=== PATIENT | male | born 1965 | race Hispanic/Latino ===

== ENCOUNTER 2018-12-18 21:04 | Inpatient (IN) | payer MEDICARE, OTHER ==
[~2018-12-18] VITALS: Ht 170.2 cm; Wt 110.3 kg
[2018-12-18] MEDS ORDERED: PANTOPRAZOLE 40 MG 10ML VIAL IV STA (21:16)
[2018-12-18 21:27] LABS: BASOPHILS # (AUTO) 0.1 (0.0-0.1); BASOPHILS % 0.4 % (0.0-1.0); EOSINOPHILS % 0.2 % (0.0-6.0); HEMOGLOBIN 14.7 g/dL (14.0-18.0); LYMPHOCYTES # (AUTO) 0.9 (1.0-3.2); LYMPHOCYTES % 7.3 % (18.0-39.1); MEAN CORPUSCULAR HEMOGLOBIN 28.9 pg (28-32); MEAN CORPUSCULAR HGB CONC 33.4 g/dL (31-35); MEAN CORPUSCULAR VOLUME 86.4 fL (81-99); MONOCYTES # (AUTO) 0.7 (0.2-0.8); MONOCYTES % 5.9 % (4.4-11.3); NEUTROPHILS # (AUTO) 10.8 (2.1-6.9); NEUTROPHILS % 85.9 % (38.7-80.0); PLATELET COUNT 272 x10e3/uL (140-360); RED BLOOD COUNT 5.09 x10e6/uL (4.3-5.7); RED CELL DISTRIBUTION WIDTH 13.5 % (11.7-14.4)
[2018-12-18] MEDS ORDERED: METOPROLOL TARTRATE INJ 1 MG/ML VIAL IV ONE (21:30)
[2018-12-18 21:35] LABS: INR 1.13; PROTHROMBIN TIME 15.1 seconds (11.9-14.5)
[2018-12-18 21:36] LABS: PARTIAL THROMBOPLASTIN TIME 31.2 seconds (23.8-35.5)
[2018-12-18 22:13] LABS: ALBUMIN 3.6 g/dL (3.5-5.0); ANION GAP 14.8 mmol/L (8-16); CALCIUM 8.5 mg/dL (8.4-10.2); CREATININE, SERUM 1.44 mg/dL (0.72-1.25); POTASSIUM 4.8 mmol/L (3.5-5.1)
[2018-12-18 22:19] LABS: CREATINE KINASE MB 1.5 ng/mL (0-5.0)
[2018-12-18 22:34] LABS: AMYLASE 18 U/L (25-125); LIPASE 17 U/L (8-78)
[2018-12-18] MEDS ORDERED: AMIODARONE HCL 150MG 100 ML IV ONE (22:45)
[2018-12-18 22:48] LABS: BILIRUBIN,URINE NEGATIVE (NEGATIVE); CLARITY,URINE SL CLOUDY (CLEAR); COLOR,URINE YELLOW (YELLOW); KETONES,URINE NEGATIVE (NEGATIVE); LEUKOCYTE ESTERASE ,URINE NEGATIVE (NEGATIVE); NITRITE,URINE NEGATIVE (NEGATIVE); PROTEIN,URINE DIPSTICK 2+ (NEGATIVE); URINE UROBILINOGEN 1 mg/dL (0.2 - 1)
[2018-12-18] MEDS ORDERED: AMIODARONE HCL 360MG 200 ML IV SCH (23:00)
[2018-12-18 23:03] LABS: BACTERIA,URINE MODERATE /HPF; EPITHELIAL CELLS,URINE FEW /LPF; MUCUS,URINE MANY (RARE); RBC,URINE 0-5 /HPF (0-5); WBC,URINE (MAN) 0-5 /HPF (0-5)
--- NOTE | 2018-12-18 23:10 | NUR ---
PATIENT BEING NON-COMPLIANT WITH NASAL CANNULA, MD AWARE, EXPLAINED TO PATIENT THE RISKS OF NOT WEARING A NASAL CANNULA.
[2018-12-18] MEDS ORDERED: DIATRIZOATE MEGL/DIATRIZOA SOD 30 ML BTL PO ONE (23:26)
[2018-12-18] MEDS ORDERED: AMIODARONE 900MG 500 ML IV ONE (23:30)
[2018-12-19] VITALS (8 sets, daily range): BP systolic 125–150; BP diastolic 67–99
--- NOTE | 2018-12-19 00:24 | Diagnostic Imaging Report ---
EXAM: CT Abdomen and Pelvis WITHOUT contrast INDICATION: ^abd pain ^[id number] ^2344 ^Y COMPARISON: None. TECHNIQUE: Abdomen and pelvis were scanned utilizing a multidetector helical scanner from the lung base to the pubic symphysis without administration of IV contrast. Absence of intravenous contrast decreases sensitivity for detection of focal lesions and vascular pathology. Coronal and sagittal reformations were obtained. Routine protocol was performed. IV CONTRAST: None ORAL CONTRAST: None COMPLICATIONS: None RADIATION DOSE: Total DLP: 826.88 mGy*cm Estimated effective dose: (DLP x 0.015 x size factor) mSv CTDIvol has been reviewed. It is below the limits set by the Radiation Protocol Committee (RPC). FINDINGS: LINES and TUBES: None. LOWER THORAX: Small right and trace left pleural effusions. Trace pericardial effusion. Partially seen distal lead of cardiac device, terminating in right ventricle. Lingular atelectasis/scarring. HEPATOBILIARY: Unenhanced liver is unremarkable. No biliary ductal dilation. GALLBLADDER: No radio-opaque stones or sludge. No wall thickening. SPLEEN: No splenomegaly. PANCREAS: No focal masses or ductal dilatation. ADRENALS: No adrenal nodules KIDNEYS/URETERS: No hydronephrosis. Limited for evaluation of renal parenchyma without intravenous contrast. Nonspecific bilateral perinephric fat stranding. No stones. GI TRACT: No abnormal distention, wall thickening, or evidence of bowel obstruction. There are diverticula within the colon without evidence of diverticulitis. Appendix is normal. PELVIC ORGANS/BLADDER: Unremarkable. LYMPH NODES: No lymphadenopathy. VESSELS: Unremarkable. PERITONEUM / RETROPERITONEUM: No free air or fluid. BONES: Unremarkable. SOFT TISSUES: Fat-containing bilateral inguinal and a small fat-containing umbilical hernias. IMPRESSION: 1. No definite evidence of acute inflammatory process in the abdomen/pelvis, considering limitations of unenhanced study. 2. Small right and trace left pleural effusions. 3. Mild colonic diverticulosis without evidence of diverticulitis. Signed by: Dr. Adilson Philippe MD on 12/19/2018 12:21 AM
[2018-12-19] MEDS ORDERED: DEXTROSE 50% SYRINGE 50 ML IV PRN (00:45)
[2018-12-19] MEDS ORDERED: ONDANSETRON HCL INJ 2MG/ML 2ML 2 MG/ML VIAL IV PRN (00:45)
--- NOTE | 2018-12-19 00:47 | Diagnostic Imaging Report ---
EXAMINATION: CHEST SINGLE (PORTABLE) INDICATION: ^chest pain ^[id number] ^2354 ^Y COMPARISON: None FINDINGS: AP view TUBES and LINES: Single lead left chest wall cardiac device in place with distal tip projecting over right ventricle. Retrocardiac hazy opacification. LUNGS: Lungs are well inflated. Mild central vascular congestion. PLEURA: No significant pleural effusion or pneumothorax. HEART AND MEDIASTINUM: The cardiomediastinal silhouette is enlarged. BONES AND SOFT TISSUES: No acute osseous lesion. Soft tissues are unremarkable. UPPER ABDOMEN: No free air under the diaphragm. IMPRESSION: Enlarged cardiomediastinal silhouette and mild vascular congestion. Retrocardiac hazy opacification, representing atelectasis and/or pneumonia in the appropriate clinical context. Signed by: Dr. Adilson Philippe MD on 12/19/2018 12:44 AM
[2018-12-19] MEDS: ASPIRIN 81 MG CHEW TAB PO ONE (01:02)
--- OUTSIDE RECORDS SUMMARY | 2018-12-19 01:05 | XMS REPORT | Clinical Summary ---
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 Reports, bloating/distention and gas Bumetanide Other (See 09/10/2018 Comments) k dur tablets make patient sick. Pt says tabs are "too big" so he has to break them and drink lots of water Potassium Nausea And Low 03/19/2013 Vomiting Sodium Chloride Medications End Date Status Medication Sig Dispensed Refills Start Date Active acetaminophen (TYLENOL) Take 650 mg 0 650 MG CR tablet by mouth every 4 (four) hours as needed for Pain. Active clonazePAM (KLONOPIN) 1 Take 1 mg by 0 MG tablet mouth nightly. Active metFORMIN (GLUCOPHAGE) Take 1 tablet 60 tablet 5 500 MG tablet (500 mg 8 total) by mouth 2 (two) times daily with breakfast and dinner. Active zolpidem (AMBIEN) 10 mg Take 10 mg by 0 tablet mouth every night as needed for Insomnia. 12/29/2018 Active pantoprazole (PROTONIX) Take 1 tablet 30 tablet 11 40 MG tablet (40 mg total) 8 by mouth daily. Active OXcarbazepine (OXTELLAR Take 600 mg 0 XR) 600 mg Tb24 by mouth nightly . Active traZODone (DESYREL) 50 MG Take 50 mg by 0 tablet mouth nightly. Active atorvastatin (LIPITOR) 40 Take 1 tablet 30 tablet 11 MG tablet (40 mg total) 9 by mouth every evening. Active rivaroxaban (XARELTO) 20 Take 1 tablet 30 tablet 11 mg Tab tablet (20 mg total) 9 by mouth daily with dinner. Active torsemide (DEMADEX) 20 MG Take 60 mg in 120 tablet 11 tablet am and 20 mg 9 in pm. 05/24/2019 Active albuterol HFA (PROAIR Inhale 1 puff 1 Inhaler 0 HFA) 90 mcg/actuation by mouth via 9 inhalerIndications: inhaler every Bronchitis, Cough, 6 (six) hours Wheezing, Chest as needed for congestion Wheezing. 07/30/2019 Active lisinopril Take 1 tablet 90 tablet 3 (PRINIVIL,ZESTRIL) 2.5 MG (2.5 mg 9 tablet total) by mouth daily. Active cariprazine (VRAYLAR) 1.5 Take 3 mg by 0 mg CapIndications: mouth daily. Obtained from patient's mother 09/16/2019 Active aspirin 81 MG EC tablet Take 1 tablet 30 tablet 11 (81 mg total) 9 by mouth daily. 09/26/2019 Active ketoconazole (NIZORAL) 2 Apply 30 g 11 % creamIndications: Tinea topically 9 pedis of both feet daily To feet for foot fungus for 2weeks then as needed. Active NUEDEXTA 20-10 mg Cap Take 1 2 capsule by 9 mouth 2 (two) times daily. Active ONETOUCH VERIO Strp Apply 1 strip 9 topically 4 9 (four) times daily. 11/10/2019 Active insulin lispro (HUMALOG) Inject 15 10 mL 0 100 unit/mL injection Units 9 subcutaneousl y 3 (three) times daily with meals. 11/10/2019 Active insulin detemir U-100 Inject 30 10 mL 0 (LEVEMIR U-100 INSULIN) Units 9 100 unit/mL injection subcutaneousl y 2 (two) times daily. 02/01/2019 Active ergocalciferol Take 1 tablet 0 (ERGOCALCIFEROL) 50,000 by mouth. 9 unit capsule 11/19/2019 Active carvedilol (COREG) 25 MG Take 1.5 90 tablet 5 tablet tablets (37.5 9 mg total) by mouth 2 (two) times daily with breakfast and dinner. 12/29/2017 Discontinued pantoprazole (PROTONIX) Take 40 mg by 0 40 MG tablet mouth daily. 4 04/18/2018 Discontinued digoxin (LANOXIN) 0.125 Take 1 tablet 90 tablet 3 MG tablet (125 mcg 8 total) by mouth daily. 04/16/2018 Discontinued glipiZIDE (GLUCOTROL) 10 Take 1 tablet 30 tablet 5 MG tablet (10 mg total) 8 by mouth 2 (two) times daily before meals. 09/13/2018 Discontinued asenapine (SAPHRIS) [address] 5 mg 0 Subl under the tongue nightly . 01/19/2018 Discontinued OXcarbazepine (TRILEPTAL) Take 600 mg 0 600 MG tablet by mouth nightly. 01/01/2018 Discontinued torsemide (DEMADEX) 20 MG Take 60 mg in 120 tablet 5 tablet am and 20 mg 8 in pm. 05/10/2018 Discontinued carvedilol (COREG) 12.5 Take 3 180 tablet 5 MG tablet tablets (37.5 8 mg total) by mouth 2 (two) times daily with breakfast and dinner. 05/10/2018 Discontinued aspirin 81 MG EC tablet Take 1 tablet 30 tablet 5 (81 mg total) 8 by mouth daily. 05/10/2018 Discontinued atorvastatin (LIPITOR) 40 Take 1 tablet 30 tablet 5 MG tablet (40 mg total) 8 by mouth every evening. 05/10/2018 Discontinued rivaroxaban (XARELTO) 20 Take 1 tablet 30 tablet 11 mg Tab tablet (20 mg total) 8 by mouth daily with dinner. 01/01/2018 Discontinued torsemide (DEMADEX) 20 MG Take 60 mg by 0 tablet mouth every morning. 01/01/2018 Discontinued torsemide (DEMADEX) 20 MG Take 20 mg by 0 tablet mouth every evening. 11/10/2018 Discontinued insulin lispro (HUMALOG) Inject 8 10 mL 0 100 unit/mL injection Units 8 subcutaneousl y 3 (three) times daily with meals. 11/10/2018 Discontinued insulin detemir U-100 Inject 20 10 mL 0 (LEVEMIR U-100 INSULIN) Units 8 100 unit/mL injection subcutaneousl y 2 (two) times daily. 04/06/2018 Discontinued torsemide (DEMADEX) 20 MG Take 60 mg in 120 tablet 5 tablet am and 20 mg 8 in pm. 05/10/2018 Discontinued torsemide (DEMADEX) 20 MG Take 60 mg in 120 tablet 5 tablet am and 20 mg 9 in pm. 05/24/2018 Discontinued senna (SENOKOT) 8.6 mg Take 1 tablet 60 tablet 0 tablet (8.6 mg 9 total) by mouth every night as needed for Constipation. 05/10/2018 Discontinued digoxin (LANOXIN) 0.125 Take 1 tablet 90 tablet 3 MG tablet (125 mcg 9 total) by mouth daily. 05/02/2018 Discontinued lidocaine (LIDODERM) 5 % Place 1 patch 10 patch 0 patchIndications: Acute onto the skin 9 left-sided thoracic back every 12 pain, Spasm of thoracic (twelve) back muscle hours Remove & Discard patch within 12 hours or as directed by MD. 05/02/2018 Discontinued metaxalone (SKELAXIN) 800 Take 1 tablet 30 tablet 0 MG tabletIndications: (800 mg 9 Acute left-sided thoracic total) by back pain, Spasm of mouth 3 thoracic back muscle (three) times daily as needed for Muscle spasms or Muscle pain for up to 10 days. 05/24/2018 Discontinued tiZANidine (ZANAFLEX) 4 Take 1 tablet 30 tablet 0 MG tabletIndications: (4 mg total) 9 Acute left-sided thoracic by mouth 3 back pain, Spasm of (three) times thoracic back muscle daily as needed (muscle spasms) for up to 28 days. 09/13/2018 Discontinued aspirin 81 MG EC tablet Take 1 tablet 30 tablet 11 (81 mg total) 9 by mouth daily. 10/01/2018 Discontinued carvedilol (COREG) 12.5 Take 3 180 tablet 11 MG tablet tablets (37.5 9 mg total) by mouth 2 (two) times daily with breakfast and dinner. 11/19/2018 Discontinued digoxin (LANOXIN) 0.125 Take 1 tablet 90 tablet 3 MG tablet (125 mcg 9 total) by mouth daily. 06/03/2018 benzonatate (TESSALON Take 1 30 capsule 0 PERLES) 100 MG capsule (100 9 capsuleIndications: Cough mg total) by mouth 3 (three) times daily as needed for Cough for up to 10 days. 07/06/2018 Discontinued methylPREDNISolone follow 1 Package 0 (MEDROL DOSEPACK) 4 mg package 9 tabletIndications: directions. Bronchitis, Cough, Wheezing, Chest congestion 06/03/2018 cefUROXime (CEFTIN) 500 Take 1 tablet 20 tablet 0 MG tabletIndications: (500 mg 9 Bronchitis, Upper total) by respiratory tract mouth 2 (two) infection, unspecified times daily type, Cough, Wheezing, for 10 days. Chest congestion 09/11/2018 Discontinued cariprazine 1.5 mg (1)- 3 Take 1.5 mg 0 mg (6) CpPk by mouth daily. 09/26/2018 Discontinued lactulose (CHRONULAC) 10 Take 30 mLs 240 mL 0 gram/15 mL solution (20 g total) 9 by mouth 3 (three) times daily for 10 days. 11/19/2018 Discontinued metoprolol (TOPROL-XL) Take 1 tablet 30 tablet 11 100 MG 24 hr tablet (100 mg 9 total) by mouth daily. Active Problems Patient Care Coordination Note Chong, care provider at [facility], 2D Echo, 05/14/18 Summary: 1. Moderately impaired LV systolic function, LVEF 30-34%. 2. Mild mitral regurgitations. 3. Left atrial enlargement with elevated left atrial pressure. 4. IVC: right atrial pressure is 6-10 mmHg. 2D Echo, 05/22/17 Summary: 1. Moderately impaired LV systolic function, LVEF 30-34% 2. Mild mitral regurgitation 3. Impaired LV relaxation suggestive of diastolic dysfunction. 4. Left atrial enlargement with elevated left atrial pressure. 5. LVIDd 5.6 cm. Drug Screen 08/24/2016 No Barbiturates, benzodiazepines, cannabinoids, cocaine, Opiates or muscle relaxers detected Positive for nicotine Pertinent Tests: 2DEcho, 12/11 The left ventricle is chamber size (by vol index) is mildly enlarged (male - LVED 75-89ml/m2). LVIDd 5.6 cm. No evidence of LV hypertrophy. All of the LV segments are severely hypokinetic . Global LV systolic function severely reduced . LVEF by quantitative assessment is severely reduced (<20%) . RV pacing wire is visualized . RV chamber size is normal . Global RV systolic function is depressed . [id number] mitral regurgitation. Mild tricuspid regurgitation. Estimated peak systolic PA pressure is 35-40 mmHg . A small pericardial effusion is present . The estimated RA pressure by IVC dynamics 11-15mmHg . In comparison with the prior exam 05/01/2013 the following changes are noted: PAP lower . 2DEcho, 09/28/16 ([facility]) Summary: 1. Moderately dilated left ventricle. Severe global hypokinesis of left ventricle. Estimated LVEF 20-25%. Restrictive filing pattern (grade II diastolic dysfunction). LV is moderately dilated. The anterior wall is akinetic. The remainder of the segment of the left ventricle is moderately dilated. The anterior wall is akinetic. The remainder of the segment of the left ventricle are moderate to severly hypokinetic. 2. The right ventricle is normal in size. Has mild global hypokinesis. 3. Aortic valve sclerosis. There is no aortic stenosis. 4. Mild MR 5. Mild TR 6. Estimated right ventricular systolic pressure is 40-45 mmHg. 7. No pulmonary insufficiency. 8. Severely enlarged left atrium. Mildly enlarged right atrium. 9. No pericardial effusion. Lexiscan Nuclear Stress Report, 09/28/16 Impression: 1. Large sized defect NC/scar. 2. Ischemic cardiomyopathy with LVEF 33% 2D Echo, 02/08/16 ([facility]) Summary: 1. Moderately impaired LV systolic function, LVEF 30-34%. LVIDd 5.5 cm 2. Mild mitral regurgitation 3. Impaired LV relaxation suggestive of diastolic dysfunction. 4. Left atrial enlargement with elevated left atrial pressure. 5. Compared to study on 06/29/15, no significant change. 2D Echo 06/29/15 ([facility]) Summary: 1. Moderately impaired LV systolic function, LVEF 30-34% 2. Mild mitral regurgitation 3. Impaired LV relaxation suggestive of diastolic dysfunction 4. Left atrial enlargement with elevated left atrial pressure. 5. LVIDd 5.5 cm 2 Decho ( [facility] ) 05/31/2014 LV size normal LVEF 55-60%, LVIDd 5.17 cm Abnormal LV diastolic function LA size normal RV size and systolic function normal Trivial pericardial effusion Cardiac catheterization ( [facility] ) 06/02/2014 Normal coronary arteries LVEF 30-35% LVedp 17 mmHg Nuclear stress test ( [facility] ) 05/31/2014 Abnormal . Small mild reversible ischemia in the inferior wall. Normal LV size. Global LV systolic function was mildly reduced, with EF 46%. CTA chest ( [facility] ) 05/30/2014 No evidence of pulmonary embolus ICD interrogation 06/29/15 ([facility]) Summary: Normal ICD function Battery status is not at replacement time Lead impedance within normal limits Device detected 15 NS-VT episodes on 10/19/14, coinciding with hospital admission HPI : with severely depressed LVEF of < 20% by echo in 04/2013 secondary to nonischemic cardiomyopathy, s/p single chamber AICD. He has had multiple hospitalizations for acute on chronic systolic heart failure in 2012-. [facility] in April [address] Sudhakar Steele for management of advanced heart failure. Past medical history: NICMP Chronic systolic HF HTN HLD TR, mild/mod by echo 04/2013 MR, mild/mod by echo 04/2013 Pulmonary HTN with SPAP 45-50 mmHg by echo 04/2013 MARY and suspected CKD Anxiety/depression Helicobateri positive gastritis DM type 2 (diabetes mellitus, type 2) Abnormal LFTs (liver function tests) AICD (automatic cardioverter/defibrillator) present Obesity LUZ (obstructive sleep apnea) Gout Schizo-affective schizophrenia No significant coronary artery disease by cardiac cath 11/23/10 Past Surgical History: AICD, single lead (Medtronic) implanted 12/09/2011 Social History: Single, former smoker, no alcohol or illicit drug use. Family History: Father had cancer Allergies/intolerances: KCL elixir causes nausea/vomiting Pertinent Tests: 2 Decho (05/01/13) LVEF , 20%, LVIDd 5.8 cm RV systolic function depressed Severe bi-atrial enlargement TR, mild/ moderate MR, mild/moderate Est SPAP 45-50 mmHg 2 Febho 10/12/12 LVEF 20-24%, LVIDd 4.98 cm Depressed RV systolic function, mild/moderate Severely enlarged LA Mild [place], TR Impaired LV relaxation SPAP 50- 55 mmHg 2 Febho 08/24/12 LVEF < 20%, LVIDd 6.2 cm RV systolic function depressed LA severely enlarged MR, mild/mod SPAP 40-45 mmHg Small pericardial effusion Cardiac Cath 11/23/10 Non-critical CAD LVEDp 34-[address] chest 03/24/13 No evidence PE Cardiomegaly and trace pericardial effusion Small right pleural effusion CT abd/pelvis 02/05/13 Moderate right pleural effusion 6 mm subpleural nodule in the right lower lobe Cardiomegaly Small pericardial effusion Colonic diverticulosis Moderate ascites Abd US 08/23/12 Liver homogenous in texture and free of mass Non specific diffuse gallbladder wall thickening Assessment/Plan: Chronic Systolic Heart failure Non ischemic CMP, LVEF < 20%, LVIDd 5.8 cm by echo 05/01/13 NYHA Class , Stage C Assessment: Hypertension Assessment: Hyperlipidemia Assessment: Possible chronic kidney disease Assessment: Diabetes Mellitus, type 2 Assessment: AICD, single chamber (medtronic) Assessment: LUZ Assessment: Obesity Assessment: Gout Assessment: Schizo-affective schizophrenia Assessment: H/o abnormal LFT's Assessment: hepatology evaluation 09/2012 negative for autoimmune disease and hepatitis Problem Noted Date CHF (congestive heart failure) 11/07/2018 Tinea pedis of both feet 09/26/2018 Ingrown toenail 09/26/2018 Callus of foot 09/26/2018 Screening for prostate cancer 09/26/2018 Urine frequency 09/26/2018 Urinary incontinence, unspecified type 09/26/2018 Hospital discharge follow-up 09/26/2018 Congestive heart failure 09/13/2018 Non compliance w medication regimen 04/06/2018 Diastolic CHF 02/26/2018 Trigger little finger of right hand 01/19/2018 Congestive heart failure, unspecified HF chronicity, unspecified heart 01/19/2018 failure type Type 2 diabetes mellitus with complication, with long-term current use of 01/19/2018 insulin Needs flu shot 01/19/2018 Atrial fibrillation, unspecified type 01/19/2018 Encounter to establish care with new doctor 01/19/2018 Hyperglycemia 12/05/2017 Hypercalcemia 12/04/2017 Chronic kidney disease, unspecified CKD stage 01/26/2017 Tobacco abuse 12/12/2016 Cocaine abuse 09/16/2016 Atrial fibrillation, chronic 09/16/2016 COPD (chronic obstructive pulmonary disease) 06/04/2016 Acute on chronic combined systolic and diastolic ACC/AHA stage C congestive 11/09/2015 heart failure Chronic anticoagulation 10/07/2015 Chronic kidney disease (CKD) stage G2/A2, mildly decreased glomerular 10/06/2015 filtration rate (GFR) between 60-89 mL/min/1.73 square meter and albuminuria creatinine ratio between 30-299 mg/g Hypertension 10/01/2013 Hyperlipidemia 10/01/2013 Gout 10/01/2013 Anxiety 03/26/2013 Gastritis 09/26/2012 Last Assessment & Plan: He has not had EGD, but tested positive for H.pylori, and was treated. He states that his symptoms have not improved. He should follow up with his PCP ([facility] His gastritis is a secondary consideration in the setting of severe cardiomyopathy. AICD (automatic cardioverter/defibrillator) present - medtronic 08/25/2012 Last Assessment & Plan: Implanted in 2006 - see NICM above. Obesity 08/25/2012 Last Assessment & Plan: He has significant truncal obesity and hyperlipidemia (on atorvastatin), but denies hypertension and diabetes. He is losing weight with diet and exercise - he is encouraged to continue with this regimen. LUZ (obstructive sleep apnea) 08/25/2012 Schizo-affective schizophrenia, chronic condition 08/25/2012 Last Assessment & Plan: Has flight of ideas - follows with Dr. Dietrich (on [place] and Stag). Lives independently - on disability. Pulmonary nodule 11/15/2010 Overview: Overview: Seen on CT chest - 2003 Major depressive disorder, single episode, severe with psychotic features 03/14/2001 Resolved Problems Problem Noted Date Resolved Date Bronchitis 05/24/2018 09/26/2018 Upper respiratory tract infection, unspecified type 05/24/2018 09/26/2018 Cough 05/24/2018 09/26/2018 Wheezing 05/24/2018 09/26/2018 Chest congestion 05/24/2018 09/26/2018 Acute left-sided thoracic back pain 04/27/2018 05/24/2018 Spasm of thoracic back muscle 04/27/2018 05/24/2018 Type 2 diabetes mellitus without complication 03/12/2013 09/26/2018 Encounters Care Team Description Date Type Specialty Jose Maria Gonzalez MD 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) 11/19/2018 Office Visit Transplant Shanna Scott MD 11/05/2018 Hospital Cardiology - Encounter 11/10/2018 Jose Maria Gonzalez MD Ahmed, Shamoon, MD Hyperlipidemia, unspecified hyperlipidemia type; 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); Type 2 diabetes mellitus without complication, 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) 11/05/2018 Office Visit Transplant 11/05/2018 Becca Gutierrez RN 10/30/2018 Orders Only Transplant Jose Maria Gonzalez MD Chronic combined systolic and diastolic CHF (congestive heart failure) ([facility]); AICD (automatic cardioverter/defibrillator) present 10/01/2018 Office Visit Transplant 10/01/2018 Orders Only General Internal Medicine Agapito Grace Jr., MD 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) (Primary Dx); Atrial fibrillation, chronic (HCC); Essential hypertension; Type 2 diabetes mellitus with complication, with long-term current use of insulin (HCC); Chronic kidney disease, unspecified CKD stage; AICD (automatic cardioverter/defibrillator) present - medtronic; Schizo-affective schizophrenia, chronic condition (HCC); Urine frequency; Urinary incontinence, unspecified type; Screening for prostate cancer; Callus of foot; Ingrown toenail; Tinea pedis of both feet; Hospital discharge follow-up 09/26/2018 Office Visit Internal Medicine Ivon Bermudez 09/26/2018 Documentation Transplant 09/13/2018 Travel Shanna Scott MD Siddiqui, Imran Alam, MD 09/10/2018 Hospital Cardiology - Encounter 09/15/2018 Jose Maria Gonzalez MD Ahmed, Shamoon, MD 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) 09/10/2018 Office Visit Transplant 09/10/2018 Travel Linda Diaz RN Follow-up 08/01/2018 Telephone Transplant Jose Maria Gonzalez MD 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); Type 2 diabetes mellitus without complication, unspecified whether assisted insulin use (HCC); AICD (automatic cardioverter/defibrillator) present 07/30/2018 Office Visit Transplant Sraah Beck Medication Management 07/18/2018 Telephone Transplant Rylie Jacinto RN 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) (Primary Dx); Type 2 diabetes mellitus without complication, 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); AICD (automatic cardioverter/defibrillator) present 07/18/2018 Orders Only Transplant Agapito Grace Jr., MD Bronchitis; Cough; Wheezing; Chest congestion 07/10/2018 Refill Internal Medicine Jose Maria Gonzalez MD 07/06/2018 Hospital Encounter Jose Maria Gonzalez MD 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); Hyperlipidemia, unspecified hyperlipidemia type; Atrial fibrillation, chronic (HCC) 06/18/2018 Office Visit Transplant Rylie Jacinto RN Hyperlipidemia, unspecified hyperlipidemia type (Primary Dx) 06/13/2018 Orders Only Transplant Jose Maria Gonzalez MD 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) 06/11/2018 Office Visit Transplant Jose Maria Gonzalez MD Chronic systolic heart failure (HCC) (Primary Dx) 06/01/2018 Outside Orders Central Scheduling Bermudez Keisha Follow-up 05/28/2018 Telephone Transplant Agapito Grace Jr., MD Bronchitis (Primary Dx); Upper respiratory tract infection, unspecified type; Cough; Wheezing; Chest congestion 05/24/2018 Office Visit Internal Medicine Agapito Grace Jr., MD Medication Problem 05/24/2018 Telephone Internal Medicine Jose Maria Gonzalez MD 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); AICD (automatic cardioverter/defibrillator) present - [employer] 05/14/2018 Office Visit Transplant Agapito Grace Jr., MD Acute left-sided thoracic back pain; Spasm of thoracic back muscle 05/11/2018 Refill Internal Medicine Linda Diaz RN 05/10/2018 Orders Only Transplant Agapito Grace Jr., MD Acute left-sided thoracic back pain; Spasm of thoracic back muscle 05/02/2018 Refill Internal Medicine Agapito Grace Jr., MD Medication Refill 04/30/2018 Telephone Internal Medicine Linda Diaz, BRENDON Follow-up 04/30/2018 Telephone Transplant Agapito Grace Jr., MD Acute left-sided thoracic back pain (Primary Dx); Spasm of thoracic back muscle 04/27/2018 Office Visit Internal Medicine Linda Diaz, BRENDON 04/18/2018 Orders Only Transplant Jose Maria Gonzalez MD 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); Atrial fibrillation, chronic (HCC) 04/16/2018 Office Visit Transplant 04/03/2018 Travel Jose Maria Gonzalez MD Ahmed, Shamoon, MD AICD (automatic cardioverter/defibrillator) present 04/02/2018 Hospital Cardiology - Encounter 04/06/2018 Jose Maria Gonzalez MD Ahmed, Shamoon, MD 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); Atrial fibrillation, chronic (HCC); AICD (automatic cardioverter/defibrillator) present - medtronic 04/02/2018 Office Visit Transplant 04/02/2018 Orders Only General Internal Medicine Pcp, No 03/16/2018 Telephone Cardiology Shanna Scott MD AICD (automatic cardioverter/defibrillator) present 02/26/2018 Hospital Cardiology - Encounter 03/02/2018 Jose Maria Gonzalez MD Ahmed, Shamoon, MD AICD (automatic cardioverter/defibrillator) present (Primary Dx); 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); AICD (automatic cardioverter/defibrillator) present - medtronic 02/26/2018 Office Visit Transplant 02/26/2018 Travel 02/26/2018 Orders Only General Internal Medicine Jose Maria Gonzalez MD 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); Hyperlipidemia, unspecified hyperlipidemia type; AICD (automatic cardioverter/defibrillator) present - medtronic 01/29/2018 Office Visit Transplant Ivon Bermudez 01/26/2018 Documentation Transplant Agapito Grace Jr., MD Trigger little finger of right hand (Primary Dx); Numbness of finger; AICD (automatic cardioverter/defibrillator) present - medtronic; Congestive heart failure, unspecified HF chronicity, unspecified heart failure type (HCC); Atrial fibrillation, unspecified type (HCC); Chronic kidney disease, unspecified CKD stage; Type 2 diabetes mellitus with complication, with long-term current use of insulin (HCC); Needs flu shot; Encounter to establish care with new doctor 01/19/2018 Office Visit Internal Medicine Linda Diaz, BRENDON 01/01/2018 Orders Only Transplant Linda Diaz RN 12/29/2017 Orders Only Transplant Ivon Bermudez 12/29/2017 Telephone Transplant Ivon Bermudez 12/28/2017 Telephone Central Scheduling after 12/18/2017 Immunizations Name Dates Previously Given Next Due Influenza Antibiotic Free 01/19/2018 Non PF IM Influenza TIV (IM) 05/12/2014, 01/06/2014 Influenza Three-TIV PF 5+ 12/26/2016, 12/26/2016 (Deferred: - previously YR given se documentation), 01/19/2016 Influenza Three-TIV PF 5+ 02/02/2015 YRS Pneumococcal 06/09/2017 Polysaccharide (Pneumovax) Family History Medical History Relation Name Comments Cancer Father Hypertension Father Hypertension Mother Relation Name Status Comments Father Mother Alive Social History Date Tobacco Use Types Packs/Day Years Used Quit: 12/08/2016 Former Smoker 1 10 Smokeless Tobacco: Former Quit: 12/08/2016 User Tobacco Cessation: Counseling Given: Yes Comments: i am not ready to quit Alcohol Use Drinks/Week oz/Week Comments No Alcohol Habits Answer Date Recorded How often do you have a drink containing alcohol? Never 04/27/2018 How many drinks containing alcohol do you have on Not asked a typical day when you are drinking? How often do you have six or more drinks on one Not asked occasion? Sex Assigned at Date Recorded Not on file Industry Job Start Date Occupation Not on file Not on file Not on file Travel End Travel History Travel Start No recent travel history available. Last Filed Vital Signs Time Taken Vital Sign Reading 11/19/2018 10:31 AM CDT Blood Pressure 114/70 11/19/2018 10:31 AM CDT Pulse 58 11/19/2018 10:31 AM CDT Temperature 36.4 C (97.5 F) 11/19/2018 10:31 AM CDT Respiratory Rate 18 11/19/2018 10:31 AM CDT Oxygen Saturation 99% - Inhaled Oxygen - Concentration 11/19/2018 10:31 AM CDT Weight 106.9 kg (235 lb 9.6 oz) 11/19/2018 10:31 AM CDT Height 172.7 cm (5' 8") 11/19/2018 10:31 AM CDT Body Mass Index 35.82 Plan of Treatment Care Team Description Date Type Specialty Jose Maria Gonzalez MD [address] [address] [phone] 02/11/2019 Office Visit Transplant Health Maintenance Due Date Last Done Comments HEMOGLOBIN A1C 02/05/2019 11/05/2018, 11/05/2018, 07/30/2018, Additional history exists Procedures Comments Procedure Name Priority Date/Time Associated Diagnosis CBC W/PLT COUNT & AUTO STAT 11/19/2018 Chronic combined systolic DIFFERENTIAL 10:33 AM 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) (HCC) B-TYPE NATRIURETIC FACTOR STAT 11/19/2018 Chronic combined systolic (BNP) 10:33 AM 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) ([facility]) BASIC METABOLIC PANEL (7) STAT 11/19/2018 Chronic combined systolic 10:33 AM 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) ([facility]) CBC W/PLT COUNT & AUTO STAT 11/19/2018 Chronic combined systolic DIFFERENTIAL 10:33 AM 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) ([facility]) ECG 12-LEAD Routine 11/19/2018 7:38 AM CDT Procedure Note - Interface, External Ris In - 11/19/2018 3:44 PM CDT Ventricula r Rate 78 BPM Atrial Rate 79 BPM QRS Duration 100 ms Q-T Interval 360 ms QTC Calculatio n(Bazett) 410 ms R Loyal 1 degrees T Loyal 162 degrees Atrial fibrillati on Low voltage QRS ST & T wave abnormalit y, consider lateral ischemia or digitalis effect Abnormal ECG When compared with ECG of 9 07:34, No significan t change was found ECG 12-LEAD Routine 11/19/2018 Chronic combined systolic 7:38 AM 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) ([facility]) RHYTHM STRIP - SCAN 11/12/2018 2:11 PM CDT POCT-GLUCOSE METER Routine 11/10/2018 9:24 AM CDT CBC W/PLT COUNT & AUTO Routine 11/10/2018 DIFFERENTIAL 3:43 AM CDT CBC W/PLT COUNT & AUTO Routine 11/10/2018 DIFFERENTIAL 3:43 AM CDT BASIC METABOLIC PANEL (7) Routine 11/10/2018 3:43 AM CDT POCT-GLUCOSE METER Routine 11/09/2018 9:31 PM CDT POCT-GLUCOSE METER Routine 11/09/2018 6:36 PM CDT POCT-GLUCOSE METER Routine 11/09/2018 2:32 PM CDT POCT-GLUCOSE METER Routine 11/09/2018 10:04 AM CDT CBC W/PLT COUNT & AUTO Routine 11/09/2018 DIFFERENTIAL 4:20 AM CDT CBC W/PLT COUNT & AUTO Routine 11/09/2018 DIFFERENTIAL 4:20 AM CDT BASIC METABOLIC PANEL (7) Routine 11/09/2018 4:20 AM CDT POCT-GLUCOSE METER Routine 11/08/2018 11:00 PM CDT POCT-GLUCOSE METER Routine 11/08/2018 5:30 PM CDT POCT-GLUCOSE METER Routine 11/08/2018 1:45 PM CDT POCT-GLUCOSE METER Routine 11/08/2018 10:40 AM CDT POCT-GLUCOSE METER Routine 11/07/2018 6:01 PM CDT CBC W/PLT COUNT & AUTO Routine 11/07/2018 DIFFERENTIAL 6:27 AM CDT CBC W/PLT COUNT & AUTO Routine 11/07/2018 DIFFERENTIAL 6:27 AM CDT BASIC METABOLIC PANEL (7) Routine 11/07/2018 6:27 AM CDT DIGOXIN LEVEL Routine 11/06/2018 10:08 AM CDT CBC W/PLT COUNT & AUTO Routine 11/06/2018 DIFFERENTIAL 5:33 AM CDT CBC W/PLT COUNT & AUTO Routine 11/06/2018 DIFFERENTIAL 5:33 AM CDT BASIC METABOLIC PANEL (7) Routine 11/06/2018 5:33 AM CDT POCT-GLUCOSE METER Routine 11/05/2018 10:13 PM CDT POCT-GLUCOSE METER Routine 11/05/2018 6:47 PM CDT BLOOD CULTURE Routine 11/05/2018 5:38 PM CDT HEMOGLOBIN A1C Routine 11/05/2018 5:18 PM CDT BLOOD CULTURE Routine 11/05/2018 5:18 PM CDT URINALYSIS W/ REFLEX Routine 11/05/2018 URINE CULTURE 4:57 PM CDT CBC W/PLT COUNT & AUTO STAT 11/05/2018 Chronic combined systolic DIFFERENTIAL 10:29 AM 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) (HCC) HEMOGLOBIN A1C STAT 11/05/2018 Type 2 diabetes mellitus 10:29 AM CDT without complication, 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) B-TYPE NATRIURETIC FACTOR STAT 11/05/2018 Chronic combined systolic (BNP) 10:29 AM 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) (HCC) BASIC METABOLIC PANEL (7) STAT 11/05/2018 Chronic combined systolic 10:29 AM 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) (HCC) CBC W/PLT COUNT & AUTO STAT 11/05/2018 Chronic combined systolic DIFFERENTIAL 10:29 AM 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) (HCC) LIPID PANEL STAT 11/05/2018 Hyperlipidemia, 10:29 AM CDT unspecified hyperlipidemia type HEPATIC FUNCTION PANEL STAT 11/05/2018 Hyperlipidemia, 10:29 AM CDT unspecified hyperlipidemia type (CELLAVISION MANUAL DIFF) STAT 10/01/2018 Chronic combined systolic 10:21 AM 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) (HCC) CBC W/PLT COUNT & AUTO STAT 10/01/2018 Chronic combined systolic DIFFERENTIAL 10:21 AM 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) (HCC) B-TYPE NATRIURETIC FACTOR STAT 10/01/2018 Chronic combined systolic (BNP) 10:21 AM 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) (HCC) BASIC METABOLIC PANEL (7) STAT 10/01/2018 Chronic combined systolic 10:21 AM 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) (HCC) CBC W/PLT COUNT & AUTO STAT 10/01/2018 Chronic combined systolic DIFFERENTIAL 10:21 AM 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) (HCC) ECG 12-LEAD Routine 10/01/2018 7:34 AM CDT RHYTHM STRIP - SCAN 09/17/2018 11:10 AM CDT POCT-GLUCOSE METER Routine 09/14/2018 9:30 PM CDT POCT-GLUCOSE METER Routine 09/14/2018 6:26 PM CDT POCT-GLUCOSE METER Routine 09/14/2018 1:24 PM CDT POCT-GLUCOSE METER Routine 09/14/2018 8:34 AM CDT POCT-GLUCOSE METER Routine 09/13/2018 10:10 PM CDT POCT-GLUCOSE METER Routine 09/13/2018 10:03 AM CDT POCT-GLUCOSE METER Routine 09/12/2018 11:12 PM CDT POCT-GLUCOSE METER Routine 09/12/2018 10:14 PM CDT POCT-GLUCOSE METER Routine 09/12/2018 2:30 PM CDT CBC W/PLT COUNT & AUTO STAT 09/12/2018 DIFFERENTIAL 11:33 AM CDT BASIC METABOLIC PANEL (7) STAT 09/12/2018 11:33 AM CDT CBC W/PLT COUNT & AUTO STAT 09/12/2018 DIFFERENTIAL 11:33 AM CDT POCT-GLUCOSE METER Routine 09/12/2018 9:42 AM CDT POCT-GLUCOSE METER Routine 09/11/2018 9:40 PM CDT XR CHEST 2 VIEWS Routine 09/11/2018 8:57 PM CDT POCT-GLUCOSE METER Routine 09/11/2018 6:12 PM CDT POCT-GLUCOSE METER Routine 09/11/2018 8:38 AM CDT CBC W/PLT COUNT & AUTO Routine 09/11/2018 DIFFERENTIAL 5:11 AM CDT CREATINE KINASE (CK) Routine 09/11/2018 5:11 AM CDT TROPONIN I Routine 09/11/2018 5:11 AM CDT BASIC METABOLIC PANEL (7) Routine 09/11/2018 5:11 AM CDT CBC W/PLT COUNT & AUTO Routine 09/11/2018 DIFFERENTIAL 5:11 AM CDT POCT-GLUCOSE METER Routine 09/10/2018 11:26 PM CDT CBC W/PLT COUNT & AUTO STAT 09/10/2018 DIFFERENTIAL 10:46 PM CDT CREATINE KINASE (CK) Routine 09/10/2018 10:46 PM CDT TROPONIN I Routine 09/10/2018 10:46 PM CDT URINALYSIS W/ MICROSCOPIC Routine 09/10/2018 10:46 PM CDT TSH/FREE T4 IF INDICATED Routine 09/10/2018 10:46 PM CDT BASIC METABOLIC PANEL (7) SOPHIA 09/10/2018 10:46 PM CDT CBC W/PLT COUNT & AUTO STAT 09/10/2018 DIFFERENTIAL 10:46 PM CDT CBC W/PLT COUNT & AUTO STAT 09/10/2018 Chronic combined systolic DIFFERENTIAL 10:53 AM 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) (HCC) B-TYPE NATRIURETIC FACTOR STAT 09/10/2018 Chronic combined systolic (BNP) 10:53 AM 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) (HCC) BASIC METABOLIC PANEL (7) STAT 09/10/2018 Chronic combined systolic 10:53 AM 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) (HCC) CBC W/PLT COUNT & AUTO STAT 09/10/2018 Chronic combined systolic DIFFERENTIAL 10:53 AM 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) (HCC) CBC W/PLT COUNT & AUTO STAT 07/30/2018 Chronic combined systolic DIFFERENTIAL 10:43 AM 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) (HCC) HEMOGLOBIN A1C STAT 07/30/2018 Type 2 diabetes mellitus 10:43 AM CDT without complication, 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 ([facility]) B-TYPE NATRIURETIC FACTOR STAT 07/30/2018 Chronic combined systolic (BNP) 10:43 AM 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) (HCC) BASIC METABOLIC PANEL (7) STAT 07/30/2018 Chronic combined systolic 10:43 AM 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) (HCC) CBC W/PLT COUNT & AUTO STAT 07/30/2018 Chronic combined systolic DIFFERENTIAL 10:43 AM 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) (HCC) ECG 12-LEAD Routine 07/30/2018 7:48 AM CDT Procedure Note - Interface, External Ris In - 07/30/2018 3:14 PM CDT Ventricula r Rate 61 BPM Atrial Rate 131 BPM QRS Duration 212 ms Q-T Interval 428 ms QTC Calculatio n(Bazett) 430 ms R Loyal 50 degrees T Loyal 144 degrees Poor data quality, interpreta tion may be adversely affected Atrial fibrillati on Right bundle branch block T wave abnormalit y, consider lateral ischemia or digitalis effect Abnormal ECG When compared with ECG of 9 12:14, Right bundle branch block is now Present RHYTHM STRIP - SCAN 07/19/2018 1:51 PM CDT RHYTHM STRIP - SCAN 07/06/2018 12:03 PM CDT RHYTHM STRIP - SCAN 06/28/2018 3:02 PM CDT CBC W/PLT COUNT & AUTO STAT 06/18/2018 Chronic combined systolic DIFFERENTIAL 11:33 AM 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) (HCC) LIPID PANEL STAT 06/18/2018 Hyperlipidemia, 11:33 AM CDT unspecified hyperlipidemia type HEPATIC FUNCTION PANEL STAT 06/18/2018 Hyperlipidemia, 11:33 AM CDT unspecified hyperlipidemia type B-TYPE NATRIURETIC FACTOR STAT 06/18/2018 Chronic combined systolic (BNP) 11:33 AM 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) (HCC) BASIC METABOLIC PANEL (7) STAT 06/18/2018 Chronic combined systolic 11:33 AM 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) (HCC) CBC W/PLT COUNT & AUTO STAT 06/18/2018 Chronic combined systolic DIFFERENTIAL 11:33 AM 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) (HCC) ECG 12-LEAD Routine 06/18/2018 8:20 AM CDT Procedure Note - Interface, External Ris In - 06/18/2018 4:02 PM CDT Ventricula r Rate 0 BPM Atrial Rate 0 BPM QRS Duration 0 ms Q-T Interval 0 ms QTC Calculatio n(Bazett) 0 ms R Loyal 0 degrees T Loyal 0 degrees No QRS complexes found, no ECG analysis possible When compared with ECG of 9 12:14, Current undetermin ed rhythm precludes rhythm comparison , needs review ARRYTHMIA IMPLANT REPORT 06/13/2018 - SCAN 12:13 PM CDT CBC W/PLT COUNT & AUTO STAT 06/11/2018 Chronic combined systolic DIFFERENTIAL 11:36 AM 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) (HCC) B-TYPE NATRIURETIC FACTOR STAT 06/11/2018 Chronic combined systolic (BNP) 11:36 AM 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) (HCC) BASIC METABOLIC PANEL (7) STAT 06/11/2018 Chronic combined systolic 11:36 AM 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) (HCC) CBC W/PLT COUNT & AUTO STAT 06/11/2018 Chronic combined systolic DIFFERENTIAL 11:36 AM 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) (HCC) CBC W/PLT COUNT & AUTO STAT 05/14/2018 Chronic combined systolic DIFFERENTIAL 10:31 AM 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 AUTOGRAPHER and 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 CHF (congestive heart failure) (HCC) B-TYPE NATRIURETIC FACTOR STAT 05/14/2018 Chronic combined systolic (BNP) 10:31 AM MUSIC AUTOGRAPHER and diastolic CHF (congestive heart failure) (HCC) BASIC METABOLIC PANEL (7) STAT 05/14/2018 Chronic combined systolic 10:31 AM MUSIC AUTOGRAPHER and diastolic CHF (congestive heart failure) (HCC) CBC W/PLT COUNT & AUTO STAT 05/14/2018 Chronic combined systolic DIFFERENTIAL 10:31 AM MUSIC AUTOGRAPHER and diastolic CHF (congestive heart failure) (HCC) ARRYTHMIA IMPLANT REPORT 04/26/2018 - SCAN 2:30 PM MUSIC AUTOGRAPHER ARRYTHMIA IMPLANT REPORT 04/26/2018 - SCAN 7:40 AM MUSIC AUTOGRAPHER RHYTHM STRIP - SCAN 04/26/2018 7:40 AM MUSIC AUTOGRAPHER ARRYTHMIA IMPLANT REPORT 04/17/2018 - SCAN 1:41 PM MUSIC AUTOGRAPHER ECG 12-LEAD Routine 04/16/2018 12:14 PM MUSIC AUTOGRAPHER Procedure Note - Interface, External Ris In - 04/16/2018 3:13 PM MUSIC AUTOGRAPHER Ventricula r Rate 66 BPM Atrial Rate 267 BPM QRS Duration 94 ms Q-T Interval 368 ms QTC Calculatio n(Bazett) 385 ms R Loyal 32 degrees T Loyal 127 degrees Atrial fibrillati on Low voltage QRS ST & T wave abnormalit y, consider lateral ischemia or digitalis effect Abnormal ECG When compared with ECG of 9 16:03, Previous ECG has undetermin ed rhythm, needs review ECG 12-LEAD Routine 04/16/2018 Chronic combined systolic 12:14 PM MUSIC AUTOGRAPHER and diastolic CHF (congestive heart failure) (HCC) Atrial fibrillation, chronic (HCC) CBC W/PLT COUNT & AUTO STAT 04/16/2018 Chronic combined systolic DIFFERENTIAL 10:42 AM MUSIC AUTOGRAPHER and diastolic CHF (congestive heart failure) (HCC) B-TYPE NATRIURETIC FACTOR STAT 04/16/2018 Chronic combined systolic (BNP) 10:42 AM MUSIC AUTOGRAPHER and diastolic CHF (congestive heart failure) (HCC) BASIC METABOLIC PANEL (7) STAT 04/16/2018 Chronic combined systolic 10:42 AM MUSIC AUTOGRAPHER and diastolic CHF (congestive heart failure) (HCC) CBC W/PLT COUNT & AUTO STAT 04/16/2018 Chronic combined systolic DIFFERENTIAL 10:42 AM MUSIC AUTOGRAPHER and diastolic CHF (congestive heart failure) (HCC) POCT-GLUCOSE METER Routine 04/06/2018 10:05 AM MUSIC AUTOGRAPHER BASIC METABOLIC PANEL (7) Routine 04/06/2018 5:16 AM MUSIC AUTOGRAPHER POCT-GLUCOSE METER Routine 04/05/2018 10:55 PM MUSIC AUTOGRAPHER POCT-GLUCOSE METER Routine 04/05/2018 8:01 PM MUSIC AUTOGRAPHER POCT-GLUCOSE METER Routine 04/05/2018 6:24 PM MUSIC AUTOGRAPHER POCT-GLUCOSE METER Routine 04/05/2018 1:27 PM MUSIC AUTOGRAPHER POCT-GLUCOSE METER Routine 04/05/2018 9:56 AM MUSIC AUTOGRAPHER POCT-GLUCOSE METER Routine 04/05/2018 7:30 AM MUSIC AUTOGRAPHER CBC W/PLT COUNT & AUTO Routine 04/05/2018 DIFFERENTIAL 4:52 AM MUSIC AUTOGRAPHER BASIC METABOLIC PANEL (7) Routine 04/05/2018 4:52 AM MUSIC AUTOGRAPHER CBC W/PLT COUNT & AUTO Routine 04/05/2018 DIFFERENTIAL 4:52 AM MUSIC AUTOGRAPHER POCT-GLUCOSE METER Routine 04/04/2018 10:43 PM MUSIC AUTOGRAPHER POCT-GLUCOSE METER Routine 04/04/2018 5:34 PM MUSIC AUTOGRAPHER POCT-GLUCOSE METER Routine 04/04/2018 11:57 AM MUSIC AUTOGRAPHER POCT-GLUCOSE METER Routine 04/04/2018 7:39 AM MUSIC AUTOGRAPHER CBC W/PLT COUNT & AUTO Routine 04/04/2018 DIFFERENTIAL 5:00 AM MUSIC AUTOGRAPHER BASIC METABOLIC PANEL (7) Routine 04/04/2018 5:00 AM MUSIC AUTOGRAPHER CBC W/PLT COUNT & AUTO Routine 04/04/2018 DIFFERENTIAL 5:00 AM MUSIC AUTOGRAPHER POCT-GLUCOSE METER Routine 04/03/2018 9:32 PM MUSIC AUTOGRAPHER POCT-GLUCOSE METER Routine 04/03/2018 8:54 PM MUSIC AUTOGRAPHER POCT-GLUCOSE METER Routine 04/03/2018 6:01 PM MUSIC AUTOGRAPHER POCT-GLUCOSE METER Routine 04/03/2018 1:27 PM MUSIC AUTOGRAPHER POCT-GLUCOSE METER Routine 04/03/2018 9:04 AM MUSIC AUTOGRAPHER CBC W/PLT COUNT & AUTO Routine 04/03/2018 DIFFERENTIAL 4:08 AM MUSIC AUTOGRAPHER BASIC METABOLIC PANEL (7) Routine 04/03/2018 4:08 AM MUSIC AUTOGRAPHER CBC W/PLT COUNT & AUTO Routine 04/03/2018 DIFFERENTIAL 4:08 AM MUSIC AUTOGRAPHER POCT-GLUCOSE METER Routine 04/02/2018 11:02 PM MUSIC AUTOGRAPHER XR CHEST 1 VIEW Routine 04/02/2018 PORTABLE/BEDSIDE 7:46 PM MUSIC AUTOGRAPHER HEMOGLOBIN A1C AP Routine 04/02/2018 4:04 PM MUSIC AUTOGRAPHER B-TYPE NATRIURETIC FACTOR Routine 04/02/2018 (BNP) 4:04 PM MUSIC AUTOGRAPHER ECG 12-LEAD STAT 04/02/2018 4:03 PM MUSIC AUTOGRAPHER CBC W/PLT COUNT & AUTO Routine 04/02/2018 DIFFERENTIAL 3:31 PM MUSIC AUTOGRAPHER CBC W/PLT COUNT & AUTO Routine 04/02/2018 DIFFERENTIAL 3:31 PM MUSIC AUTOGRAPHER COMPREHENSIVE METABOLIC Routine 04/02/2018 PANEL 3:31 PM MUSIC AUTOGRAPHER POCT-GLUCOSE METER Routine 04/02/2018 3:16 PM MUSIC AUTOGRAPHER ECG 12-LEAD Routine 04/02/2018 12:42 PM MUSIC AUTOGRAPHER Procedure Note - Interface, External Ris In - 04/02/2018 2:52 PM MUSIC AUTOGRAPHER Ventricula r Rate 64 BPM Atrial Rate 153 BPM QRS Duration 98 ms Q-T Interval 416 ms QTC Calculatio n(Bazett) 429 ms R Loyal 0 degrees T Loyal 148 degrees Atrial fibrillati on Low voltage QRS Cannot rule out Anterior infarct , age undetermin ed ST & T wave abnormalit y, consider lateral ischemia or digitalis effect Abnormal ECG When compared with ECG of 8 11:28, QT has lengthened ECG 12-LEAD Routine 04/02/2018 Chronic combined systolic 12:42 PM MUSIC AUTOGRAPHER and diastolic CHF (congestive heart failure) (HCC) Atrial fibrillation, chronic (HCC) CBC W/PLT COUNT & AUTO STAT 04/02/2018 Chronic combined systolic DIFFERENTIAL 11:08 AM MUSIC AUTOGRAPHER and diastolic CHF (congestive heart failure) (HCC) B-TYPE NATRIURETIC FACTOR STAT 04/02/2018 Chronic combined systolic (BNP) 11:08 AM MUSIC AUTOGRAPHER and diastolic CHF (congestive heart failure) (HCC) BASIC METABOLIC PANEL (7) STAT 04/02/2018 Chronic combined systolic 11:08 AM MUSIC AUTOGRAPHER and diastolic CHF (congestive heart failure) (HCC) CBC W/PLT COUNT & AUTO STAT 04/02/2018 Chronic combined systolic DIFFERENTIAL 11:08 AM MUSIC AUTOGRAPHER and diastolic CHF (congestive heart failure) (HCC) ARRYTHMIA IMPLANT REPORT 03/09/2018 - SCAN 9:51 AM MUSIC AUTOGRAPHER RHYTHM STRIP - SCAN 03/09/2018 9:51 AM MUSIC AUTOGRAPHER POCT-GLUCOSE METER Routine 03/02/2018 5:50 PM MUSIC AUTOGRAPHER POCT-GLUCOSE METER Routine 03/02/2018 10:15 AM MUSIC AUTOGRAPHER (CELLAVISION MANUAL DIFF) Routine 03/02/2018 5:20 AM MUSIC AUTOGRAPHER CBC W/PLT COUNT & AUTO Routine 03/02/2018 DIFFERENTIAL 5:20 AM MUSIC AUTOGRAPHER BASIC METABOLIC PANEL (7) Routine 03/02/2018 5:20 AM MUSIC AUTOGRAPHER CBC W/PLT COUNT & AUTO Routine 03/02/2018 DIFFERENTIAL 5:20 AM MUSIC AUTOGRAPHER POCT-GLUCOSE METER Routine 03/01/2018 8:56 PM MUSIC AUTOGRAPHER POCT-GLUCOSE METER Routine 03/01/2018 5:17 PM MUSIC AUTOGRAPHER POCT-GLUCOSE METER Routine 03/01/2018 9:50 AM MUSIC AUTOGRAPHER CBC W/PLT COUNT & AUTO Routine 03/01/2018 DIFFERENTIAL 5:19 AM MUSIC AUTOGRAPHER BASIC METABOLIC PANEL (7) Routine 03/01/2018 5:19 AM MUSIC AUTOGRAPHER CBC W/PLT COUNT & AUTO Routine 03/01/2018 DIFFERENTIAL 5:19 AM MUSIC AUTOGRAPHER POCT-GLUCOSE METER Routine 02/28/2018 10:08 PM MUSIC AUTOGRAPHER POCT-GLUCOSE METER Routine 02/28/2018 6:00 PM MUSIC AUTOGRAPHER POCT-GLUCOSE METER Routine 02/28/2018 1:54 PM MUSIC AUTOGRAPHER POCT-GLUCOSE METER Routine 02/28/2018 8:24 AM MUSIC AUTOGRAPHER CBC W/PLT COUNT & AUTO Routine 02/28/2018 DIFFERENTIAL 3:45 AM MUSIC AUTOGRAPHER BASIC METABOLIC PANEL (7) Routine 02/28/2018 3:45 AM MUSIC AUTOGRAPHER CBC W/PLT COUNT & AUTO Routine 02/28/2018 DIFFERENTIAL 3:45 AM MUSIC AUTOGRAPHER POCT-GLUCOSE METER Routine 02/27/2018 9:21 PM MUSIC AUTOGRAPHER POCT-GLUCOSE METER Routine 02/27/2018 7:02 PM MUSIC AUTOGRAPHER POCT-GLUCOSE METER Routine 02/27/2018 3:41 PM MUSIC AUTOGRAPHER POCT-GLUCOSE METER Routine 02/27/2018 9:13 AM MUSIC AUTOGRAPHER TROPONIN I Routine 02/27/2018 5:39 AM MUSIC AUTOGRAPHER TROPONIN I Routine 02/26/2018 10:08 PM MUSIC AUTOGRAPHER COMPREHENSIVE METABOLIC Routine 02/26/2018 PANEL 10:08 PM MUSIC AUTOGRAPHER POCT-GLUCOSE METER Routine 02/26/2018 9:28 PM MUSIC AUTOGRAPHER RAPID DRUG SCREEN, URINE Routine 02/26/2018 7:31 PM MUSIC AUTOGRAPHER POCT-GLUCOSE METER Routine 02/26/2018 6:31 PM MUSIC AUTOGRAPHER HEMOGLOBIN A1C AP Routine 02/26/2018 4:47 PM MUSIC AUTOGRAPHER B-TYPE NATRIURETIC FACTOR Routine 02/26/2018 (BNP) 4:47 PM MUSIC AUTOGRAPHER XR CHEST 1 VIEW Routine 02/26/2018 PORTABLE/BEDSIDE 4:27 PM MUSIC AUTOGRAPHER ECG 12-LEAD Routine 02/26/2018 11:28 AM MUSIC AUTOGRAPHER ECG 12-LEAD Routine 02/26/2018 11:28 AM MUSIC AUTOGRAPHER Procedure Note - Interface, External Ris In - 02/26/2018 2:51 PM MUSIC AUTOGRAPHER Ventricula r Rate 57 BPM Atrial Rate 340 BPM QRS Duration 92 ms Q-T Interval 376 ms QTC Calculatio n(Bazett) 365 ms R Loyal 19 degrees T Loyal 176 degrees Atrial fibrillati on with slow ventricula r response Low voltage QRS ST & T wave abnormalit y, consider lateral ischemia or digitalis effect Abnormal ECG When compared with ECG of 8 12:28, Vent. rate has decreased BY 34 BPM CBC W/PLT COUNT & AUTO STAT 02/26/2018 Chronic combined systolic DIFFERENTIAL 9:50 AM MUSIC AUTOGRAPHER and diastolic CHF (congestive heart failure) (HCC) B-TYPE NATRIURETIC FACTOR STAT 02/26/2018 Chronic combined systolic (BNP) 9:50 AM MUSIC AUTOGRAPHER and diastolic CHF (congestive heart failure) (HCC) BASIC METABOLIC PANEL (7) STAT 02/26/2018 Chronic combined systolic 9:50 AM MUSIC AUTOGRAPHER and diastolic CHF (congestive heart failure) (HCC) CBC W/PLT COUNT & AUTO STAT 02/26/2018 Chronic combined systolic DIFFERENTIAL 9:50 AM MUSIC AUTOGRAPHER and diastolic CHF (congestive heart failure) (HCC) CBC W/PLT COUNT & AUTO STAT 01/29/2018 Chronic combined systolic DIFFERENTIAL 10:44 AM MUSIC AUTOGRAPHER and diastolic CHF (congestive heart failure) (HCC) HEPATIC FUNCTION PANEL STAT 01/29/2018 Chronic combined systolic 10:44 AM MUSIC AUTOGRAPHER and diastolic CHF (congestive heart failure) (HCC) LIPID PANEL STAT 01/29/2018 Hyperlipidemia, 10:44 AM MUSIC AUTOGRAPHER unspecified hyperlipidemia type 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) B-TYPE NATRIURETIC FACTOR STAT 01/29/2018 Chronic combined systolic (BNP) 10:44 AM MUSIC AUTOGRAPHER and diastolic CHF (congestive heart failure) (HCC) BASIC METABOLIC PANEL (7) STAT 01/29/2018 Chronic combined systolic 10:44 AM MUSIC AUTOGRAPHER and diastolic CHF (congestive heart failure) (HCC) CBC W/PLT COUNT & AUTO STAT 01/29/2018 Chronic combined systolic DIFFERENTIAL 10:44 AM MUSIC AUTOGRAPHER and diastolic CHF (congestive heart failure) (HCC) ARRYTHMIA IMPLANT REPORT 01/22/2018 - SCAN 4:33 PM CDT after 12/18/2017 Results * CBC with platelet count + automated diff (11/19/2018 10:33 AM CDT) Only the most recent of 26 results within the time period is included. WBC 7.2 3.5 - 10.5 K/L [facility] RBC 5.31 4.63 - 6.08 M/L [facility] Hemoglobin 15.6 13.7 - 17.5 GM/DL [facility] Hematocrit 45.9 40.1 - 51.0 % [facility] MCV 86.4 79.0 - 92.2 fL [facility] MCH 29.4 25.7 - 32.2 pg [facility] MCHC 34.0 32.3 - 36.5 GM/DL [facility] RDW 13.0 11.6 - 14.4 % [facility] Platelets 194 150 - 450 K/CU MM [facility] MPV 9.7 9.4 - 12.4 fL [facility] nRBC 0 0 - 0 /100 WBC [facility] % Neutros 65 % [facility] % Lymphs 21 % [facility] % Monos 11 % [facility] % Eos 2 % [facility] % Baso 0 % [facility] # Neutros 4.66 1.78 - 5.38 K/L [facility] # Lymphs 1.50 1.32 - 3.57 K/L [facility] # Monos 0.76 0.30 - 0.82 K/L [facility] # Eos 0.16 0.04 - 0.54 K/L [facility] # Baso 0.03 0.01 - 0.08 K/L [facility] Immature 1 0 - 1 % [facility] Granulocytes-Relative [facility] Specimen Blood Performing Organization Address City/State/Zipcode Phone Number [facility] [address] [place] [address] [facility] * B-type Natriuretic Factor (BNP) (11/19/2018 10:33 AM CDT) Only the most recent of 14 results within the time period is included. BNP 258 (H) 0 - 100 pg/mL [facility] Specimen Blood Performing Organization Address [facility] [address] [place] [address] [facility] * Basic Metabolic Panel (11/19/2018 10:33 AM CDT) Only the most recent of 26 results within the time period is included. Sodium 134 (L) 136 - 145 meq/L [facility] Potassium 3.7 3.5 - 5.1 meq/L [facility] Chloride 95 (L) 98 - 107 meq/L [facility] CO2 31 (H) 22 - 29 meq/L [facility] BUN 24 (H) 7 - 21 mg/dL [facility] Creatinine 1.70 (H) 0.57 - 1.25 mg/dL [facility] Glucose 313 (H) 70 - 105 mg/dL [facility] Calcium 9.0 8.4 - 10.2 mg/dL [facility] EGFR 42Comment: ESTIMATED GFR IS mL/min/1.73 sq m [facility] NOT ACCURATE CREATININE [facility] CLEARANCE IN PREDICTING GLOMERULAR FILTRATION RATE. ESTIMATED GFR IS NOT APPLICABLE FOR DIALYSIS PATIENTS. Specimen Blood Performing Organization Address City/[facility]/Zipcode Phone Number [facility] [address] [place] [address] [facility] * ECG 12 lead (11/19/2018 7:38 AM CDT) Only the most recent of 6 results within the time period is included. Specimen Narrative Performed At Ventricular Rate 78 BPM GE MUSE Atrial Rate 79 BPM QRS Duration 100 ms Q-T Interval 360 ms QTC Calculation(Bazett) 410 ms R Loyal 1 degrees T Loyal 162 degrees Atrial fibrillation Low voltage QRS ST & T wave abnormality, consider lateral ischemia or digitalis effect Abnormal ECG When compared with ECG of 01-OCT-2018 07:34, No significant change was found Confirmed by MD SENA JOSEPH P ([id number]) on 11/20/2018 6:40:57 AM Procedure Note Interface, External Ris In - 11/20/2018 6:41 AM CDT Ventricular Rate 78 BPM Atrial Rate 79 BPM QRS Duration 100 ms Q-T Interval 360 ms QTC Calculation(Bazett) 410 ms R Loyal 1 degrees T Loyal 162 degrees Atrial fibrillation Low voltage QRS ST & T wave abnormality, consider lateral ischemia or digitalis effect Abnormal ECG When compared with ECG of 01-OCT-2018 07:34, No significant change was found Confirmed by MD SENA JOSEPH P ([id number]) on 11/20/2018 6:40:57 AM Performing Organization Address City/[facility] Phone Number [facility] * RHYTHM STRIP - SCAN (11/12/2018 2:11 PM CDT) Only the most recent of 7 results within the time period is included. Narrative Performed At * POC-Glucose meter (11/10/2018 9:24 AM CDT) Only the most recent of 59 results within the time period is included. POC-Glucose Meter 294 (H)Comment: TESTED AT 70 - 110 mg/dL [address] [address] Specimen Blood Performing Organization Address [facility] Phone Number [address] [address] [facility] * Digoxin level (11/06/2018 10:08 AM CDT) Digoxin Lvl 0.4 (L) 0.8 - 2.0 ng/mL [facility] Specimen Blood Performing Organization Address [facility] Phone Number [address] [address] [facility] * Blood Culture - Routine (Right Venipuncture) (11/05/2018 5:38 PM CDT) Only the most recent of 2 results within the time period is included. Result No growth in 5 days [facility] Specimen Blood Performing Organization Address City/[facility] Cent[facility] Phone Number [facility] [address] [place] [address] [facility] * Hemoglobin A1c (11/05/2018 5:18 PM CDT) Only the most recent of 5 results within the time period is included. Hemoglobin A1C 10.4 (H) 4.3 - 6.1 % [facility] Specimen Blood Performing Organization Address [facility] Centercode Phone Number [facility] [address] [place] [address] [facility] * Urinalysis w/Microscopic + Reflex to Culture (11/05/2018 4:57 PM CDT) Color, UA Colorless [facility] Clarity, UA Clear [facility] Specific [place], UA 1.007 1.001 - 1.035 [facility] pH, UA 6.0 5.0 - 8.0 [facility] Protein, UA Negative Negative [facility] Glucose, UA Negative Negative [facility] Ketones, UA Negative Negative [facility] Bilirubin, UA Negative Negative [facility] Blood, UA Negative Negative [facility] Nitrite, UA Negative Negative [facility] Leukocytes, UA Negative Negative [facility] Urobilinogen, UA 0.2 0.2 - 1.0 mg/dL [facility] RBC, UA <1 /HPF [facility] WBC, UA <1 /HPF [facility] Squam Epithel, UA <1 /HPF [facility] Specimen Source [facility] Specimen Urine Performing Organization Address [facility]/Zipcode Phone Number [facility] [address] [place] [address] [phone] [place] [address] * Hepatic function panel (11/05/2018 10:29 AM CDT) Only the most recent of 3 results within the time period is included. Protein, Total 7.3Comment: Specimen slightly 6.0 - 8.3 gm/dL [facility] Albumin 4.1Comment: Specimen slightly 3.5 - 5.0 g/dL [facility] Total Bilirubin 0.4Comment: Specimen slightly 0.2 - 1.2 mg/dL [facility] Bilirubin, Direct 0.1Comment: Specimen slightly 0.1 - 0.5 mg/dL [facility] Alkaline Phosphatase 153 (H) 40 - 150 U/L [facility] AST 17Comment: Specimen slightly 5 - 34 U/L [facility] ALT 16Comment: Specimen slightly 6 - 55 U/L [facility] Specimen Blood Performing Organization Address City/State/Zipcode Phone Number [facility] [address] [place] [address] [phone] * Lipid panel (11/05/2018 10:29 AM CDT) Only the most recent of 3 results within the time period is included. Triglycerides 349Comment: Specimen slightly mg/dL [facility] Cholesterol 131Comment: Specimen slightly mg/dL [facility] HDL 27 mg/dL [facility] LDL Calculated 34 mg/dL [facility] Specimen Blood Narrative Performed At Triglyceride Reference Range: [facility] Low Risk <150 [facility] [id number] High Risk 200-499 Very High Risk>=500 Cholesterol Reference Range: Low Risk <200 [id number] High Risk>240 HDL Cholesterol Reference Range: Low Risk >=60 High Risk <40 LDL Cholesterol Reference Range: Optimal<100 Near [id number] Very High >=190 Performing Organization Address City/[facility]/Zipcode Phone Number [facility] [address] [place] [address] [facility] * Manual Differential (10/01/2018 10:21 AM CDT) Only the most recent of 2 results within the time period is included. % Neutros 71 % [facility] % Lymphs 17 % [facility] % Monos 8 % [facility] % Eos 4 % [facility] # Neutros 5.89 (H) 1.78 - 5.38 K/ul [facility] # Lymphs 1.41 1.32 - 3.57 K/ul [facility] # Monos 0.66 0.30 - 0.82 K/uL [facility] # Eos 0.33 0.04 - 0.54 K/uL [facility] Total Counted 100 [facility] WBC Morphology Normal [facility] Giant Platelet Present [facility] Anisocytosis 2+ moderate [facility] Microcytes 2+ moderate [facility] Poikilocytes 1+ few [facility] Ovalocytes 1+ few [facility] Artifact Present [facility] Platelet Conc Adequate [facility] Specimen Blood Narrative Performed At Received comment: [facility] User comments: [facility] Slide comments: Performing Organization Address City/[facility]/Zipcode Phone Number [facility] [address] [place] [address] [facility] * XR chest 2 views (09/11/2018 8:57 PM CDT) Specimen Narrative Performed At FINAL REPORT GE RIS EXAMINATION: 2 view chest CLINICAL INDICATION: Congestive heart failure IMPRESSION: Compared with AP chest 04/02/2018. A left subclavian AICD is again noted. The cardiac silhouette is mildly enlarged but stable. Mediastinal contours are overall similar to previous. Streaky opacities are noted at the lung bases. A component of atelectasis or scarring is favored. Mild superimposed pulmonary edema should also be considered. Subtle blunting of the costophrenic sulci may reflect trace pleural fluid and/or pleural thickening. No evidence of an acute osseous abnormality or pneumothorax. In summary, recommend clinical correlation regarding mild CHF. Signed: Jaime Melendez MD Report Verified Date/Time:09/12/2018 03:39:05 Reading Location: [address] Reading Room Procedure Note Interface, External Ris In - 09/12/2018 3:41 AM CDT FINAL REPORT EXAMINATION: 2 view chest CLINICAL INDICATION: Congestive heart failure IMPRESSION: Compared with AP chest 04/02/2018. A left subclavian AICD is again noted. The cardiac silhouette is mildly enlarged but stable. Mediastinal contours are overall similar to previous. Streaky opacities are noted at the lung bases. A component of atelectasis or scarring is favored. Mild superimposed pulmonary edema should also be considered. Subtle blunting of the costophrenic sulci may reflect trace pleural fluid and/or pleural thickening. No evidence of an acute osseous abnormality or pneumothorax. In summary, recommend clinical correlation regarding mild CHF. Signed: Jaime Melendez MD Report Verified Date/Time: 09/12/2018 03:39:05 Reading Location: [address] Reading Room Performing Organization Address City/State/Zipcode Phone Number [facility] * Troponin I (09/11/2018 5:11 AM CDT) Only the most recent of 4 results within the time period is included. Troponin I 0.03 0.00 - 0.03 ng/mL [facility] Specimen Blood Narrative Performed At Troponin I (TnI) levels must be interpreted in the context of the presenting [facility] symptoms and the clinical findings. Elevated TnI levels indicate myocardial [facility] damage, but are not specific for ischemic heart disease. Elevated TnI levels are seen in patients with other cardiac conditions (including myocarditis and congestive heart failure), and slight TnI elevations occur in patients with other conditions, including sepsis, renal failure, acidosis, acute neurological disease, and persistent tachyarrhythmia. Performing Organization Address City/[facility]/Zipcode Phone Number [place] [phone] * Creatine Kinase (CK) (09/11/2018 5:11 AM CDT) Only the most recent of 2 results within the time period is included. Total CK 263 (H) 29 - 200 U/L [facility] Specimen Blood Performing Organization Address [facility] Cent[facility]ode Phone Number [place] [phone] [place] [address] * TSH/Free T4 If Indicated (09/10/2018 10:46 PM CDT) TSH 0.92 0.35 - 4.94 uIU/mL [facility] Specimen Blood Performing Organization Address [facility] Phone Number [place] [phone] [place] [address] * Urinalysis w/Microscopic (09/10/2018 10:46 PM CDT) Color, UA Light Yellow [facility] Clarity, UA Clear [facility] Specific [place], UA 1.020 1.001 - 1.035 [facility] pH, UA 6.0 5.0 - 8.0 [facility] Protein, UA 10 mg/dL (A) Negative [facility] Glucose, UA >1000 mg/dL (A) Negative [facility] Ketones, UA Negative Negative [facility] Bilirubin, UA Negative Negative [facility] Blood, UA Negative Negative [facility] Nitrite, UA Negative Negative [facility] Leukocytes, UA Negative Negative [facility] Urobilinogen, UA 0.2 0.2 - 1.0 mg/dL [facility] RBC, UA 0 /HPF [facility] WBC, UA 0 /HPF [facility] Squam Epithel, UA <1 /HPF [facility] Specimen Source [facility] Specimen Urine Performing Organization Address City/State/Zipcode Phone Number [facility] [address] [place] [address] [facility] * ARRYTHMIA IMPLANT REPORT - SCAN (06/13/2018 12:13 PM CDT) Only the most recent of 6 results within the time period is included. Narrative Performed At * XR chest 1 view portable / bedside (04/02/2018 7:46 PM MUSIC AUTOGRAPHER) Only the most recent of 2 results within the time period is included. Specimen Narrative Performed At FINAL REPORT [facility] Chest, 1 view. History: Shortness of breath. Comparison: 02/26/2018. Discussion: Left-sided AICD with single transvenous lead identified in stable position. The trachea is midline. The lungs are symmetrically expanded without evidence for focal consolidation, pneumothorax, or significant pleural effusion. The cardiomediastinal silhouette is stable in appearance. No acute osseous abnormalities identified. IMPRESSION: No acute cardiopulmonary process identified. Signed: Colby Yen MD Report Verified Date/Time:04/02/2018 20:20:57 Reading Location: [facility] Consult Reading Room Procedure Note Interface, External Ris In - 04/02/2018 8:23 PM MUSIC AUTOGRAPHER FINAL REPORT Chest, 1 view. History: Shortness of breath. Comparison: 02/26/2018. Discussion: Left-sided AICD with single transvenous lead identified in stable position. The trachea is midline. The lungs are symmetrically expanded without evidence for focal consolidation, pneumothorax, or significant pleural effusion. The cardiomediastinal silhouette is stable in appearance. No acute osseous abnormalities identified. IMPRESSION: No acute cardiopulmonary process identified. Signed: Colby Yen MD Report Verified Date/Time: 04/02/2018 20:20:57 Reading Location: [address] Consult Reading Room Performing Organization Address City/State/Zipcode Phone Number [facility] * Comprehensive metabolic panel (04/02/2018 3:31 PM MUSIC AUTOGRAPHER) Only the most recent of 2 results within the time period is included. Protein, Total 7.6Comment: Specimen slightly 6.0 - 8.3 gm/dL [facility] Albumin 4.2Comment: Specimen slightly 3.5 - 5.0 g/dL [facility] Alkaline Phosphatase 123 40 - 150 U/L [facility] Total Bilirubin 0.5Comment: Specimen slightly 0.2 - 1.2 mg/dL [facility] Sodium 138 136 - 145 meq/L [facility] Potassium 3.8Comment: Specimen slightly 3.5 - 5.1 meq/L [facility] Chloride 99 98 - 107 meq/L [facility] CO2 27 22 - 29 meq/L [facility] BUN 30 (H) 7 - 21 mg/dL [facility] Creatinine 1.42 (H)Comment: Specimen 0.57 - 1.25 mg/dL [facility] Glucose 259 (H) 70 - 105 mg/dL [facility] Calcium 9.1 8.4 - 10.2 mg/dL [facility] AST 25Comment: Specimen slightly 5 - 34 U/L [facility] ALT 19Comment: Specimen slightly 6 - 55 U/L [facility] hemolyzed [facility] EGFR 52Comment: ESTIMATED GFR IS mL/min/1.73 sq m [facility] NOT ACCURATE CREATININE [facility] CLEARANCE IN PREDICTING GLOMERULAR FILTRATION RATE. ESTIMATED GFR IS NOT APPLICABLE FOR DIALYSIS PATIENTS. Specimen Blood Performing Organization Address City/[facility]/Zipcode Phone Number [facility] [address] [place] [address] [facility] * Rapid drug screen, urine (02/26/2018 7:31 PM MUSIC AUTOGRAPHER) Barbiturate Screen Negative Negative [facility] Benzodiazepine Screen Negative Negative [facility] Cocaine (Metab.) Screen Negative Negative [facility] Methadone Screen Negative Negative [facility] Opiate Screen Negative Negative [facility] Cannabinoid Screen Negative Negative [facility] Amph/Methamph Screen Negative Negative [facility] Phencyclidine Screen Negative Negative [facility] Oxycodone Screen Negative Negative [facility] Specimen Urine Narrative Performed At [facility] Cocaine 300 ng/mL [facility] Coqafbtenam84 ng/mL Phazuvfueqazya284 ng/mL Barbiturate 200 ng/mL Tlvazahukvqnz23 ng/mL Ciimui521 ng/mL Methadone 300 ng/mL Amphetamine/ 1000 ng/mL Methamphetamine Oxycodone 300 ng/mL This assay provides an unconfirmed qualitative test result for the clinical management of patients in emergency situations. Chain of custody not maintained. Some [id number] medications, as well as adulterants, may cause inaccurate results. Clinical correlation should be applied. A more comprehensive drug screen or confirmation of a detected drug may be performed upon request. Performing Organization Address City/State/Zipcode Phone Number [facility] [address] [place] [address] [facility] after 12/18/2017 Insurance Payer Benefit Subscriber ID Type Phone Address Plan / Group [facility] xxxxxxxxx MEDICARE MGD CARE MEDICARE HMO MEDICAID - MEDICAID MGD JASPER xxxxxxxxx Medicaid CARE COMM STAR Contracted PLAN Advance Directives For more information, please contact: [facility] [address] [place] [address] Date Inactivated Comments Code Status Date Activated 11/10/2018 1:41 PM Full Code 11/05/2018 4:11 PM This code status was determined by: Patient 07/06/2018 12:09 PM Full Code 07/06/2018 8:40 AM This code status was determined by: Patient 07/06/2018 8:10 AM Full Code 04/02/2018 3:39 PM This code status was determined by: Patient 04/02/2018 1:16 PM Full Code 02/26/2018 3:27 PM This code status was determined by: Patient 12/06/2017 7:14 PM Full Code 12/04/2017 2:44 PM This code status was determined by: Patient
--- OUTSIDE RECORDS SUMMARY | 2018-12-19 01:20 | XMS REPORT | Continuity of Care Document ---
Author Author [employer] Address Unknown Phone Unavailable Care Team Providers Care Residential Caregiver Name Role Phone [employer] Information Proven Unavailable Unavailable Problems Problem Status Onset Date Classification Date Reported Comments Source AF 09/30/2017 10/03/2017 [facility] Acute chest pain 09/30/2017 10/03/2017 [facility] CHEST PAIN Active 09/30/2017 [facility] [place],[facility] Chest pain, unspecified 07/07/2017 09/27/2017 [facility] PALPITATION Active 06/20/2017 [facility] ACUTE CHEST PAIN, ATRIAL FIBRILLATION WI Active 06/20/2017 [facility] Precordial pain 06/16/2017 09/16/2017 [facility] DIZZINESS Active 06/09/2017 [facility] ATYPICAL CHEST PAIN, ATRIAL FIBRILLATION Active 01/20/2017 [facility] Discharge Diagnosis: Cocaine abuse 12/23/2016 12/26/2016 [facility] Discharge Diagnosis: Atypical chest pain 12/23/2016 12/26/2016 [facility] CHEST PAIN/SOB Active 12/23/2016 [facility] RHABDOMYOLYSIS, CHEST TIGHTNESS, ACUTE O Active 11/09/2016 [facility] SYNCOPE Active 07/23/2016 [facility] ATRIAL FIBRILLATION WITH RVR Active 07/23/2016 [facility] Discharge Diagnosis: Dyspnea 06/23/2016 06/26/2016 [facility] Discharge Diagnosis: Acute pulmonary edema 06/23/2016 06/26/2016 [facility] Discharge Diagnosis: Nasal congestion 06/23/2016 06/26/2016 [facility] DIFF. BREATHING Active 06/21/2016 [facility] CHF I50.22 I42.9 Active 11/12/2015 [facility] HYPOTENSION Active 05/29/2014 [facility] ABD PAIN Active 05/07/2013 [facility] SHORTNESS OF BREATH Active 03/10/2013 [facility] SUICIDAL IDEATION Active 02/25/2013 [facility] FOOD POISIONING / CHEST PAIN Active 02/24/2013 [facility] SOB Active 01/31/2013 [facility] ACUTE CHF EXACERBATION, DYSPNEA Active 01/31/2013 [facility] CHF CHEST PAIN Active 01/22/2013 [facility] ACUTE CHF EXACERBATION Active 01/04/2013 [facility] IRREGULAR HEART RATE Active 01/04/2013 [facility] ABDOMINAL PAIN Active 12/24/2012 [facility] DYSPNEA,CHEST PAIN Active 11/10/2012 [facility] CHEST PAIN, CHF EXACERBATION Active 10/17/2012 [facility] FEELING ANXIOUS AND CAN'T SLEEP Active 12/07/2011 [facility] [D]Anterior chest wall pain Active 12/07/2011 Problem 10/03/2017 [facility] [place] [facility] [D]Anterior chest wall pain Active 12/07/2011 Problem 12/28/2012 [facility] FOREIGN OBJECT IN EAR Active 05/12/2011 [facility] ICD battery depletion Active Problem 05/12/2013 [facility] [place] [facility] Anxiety Active Problem 10/03/2017 [facility] [place] [facility] BP+ - Hypertension Active Problem 10/03/2017 [facility] [place] [facility] Cardiomyopathy Resolved Problem 10/03/2017 [facility] [place] [facility] CHF - Congestive heart failure Active Problem 10/03/2017 [facility] [place] [facility] Depression Active Problem 03/11/2017 [facility] [place],[facility] dm Active Problem 03/11/2017 [facility] [place] [facility] Down syndrome Active Problem 10/03/2017 [facility] [place],[facility] GERD - Gastro-esophageal reflux disease Active Problem 10/03/2017 [facility] [place] [facility] H/O: schizophrenia Active Problem 10/03/2017 [facility] [place],[facility] HTN Active Problem 03/12/2013 [facility] [place],[facility] NIDDM Active Problem 10/03/2017 [facility] [place],[facility] Obese build Active Problem 10/03/2017 [facility] [place],[facility] Sleep apnea Active Problem 10/03/2017 [facility] [place],[facility] CHF - Congestive heart failure Active Problem 12/28/2012 [facility] Down syndrome Active Problem 12/28/2012 [facility] H/O: schizophrenia Active Problem 12/28/2012 [facility] BP+ - Hypertension Resolved Problem 12/28/2012 [facility] GERD - Gastro-esophageal reflux disease Resolved Problem 12/28/2012 [facility] NIDDM Resolved Problem 12/28/2012 [facility] Obese build Resolved Problem 12/28/2012 [facility] Sleep apnea Active Problem 12/28/2012 [facility] Depression Resolved Problem 12/28/2012 [facility] dm Active Problem 12/28/2012 [facility] HTN Active Problem 10/03/2017 [facility] [place] [facility] Short of breath on exertion Active Problem 10/03/2017 [facility] [place] [facility] ICD battery depletion(Confirmed) Active Problem 10/03/2017 [facility] Schizophrenia Active Problem 10/03/2017 [facility] [facility] Atrial fibrillation Active Problem 10/03/2017 [facility] Pacemaker Active Problem 10/03/2017 [facility] Chronic renal failure Active Problem 10/03/2017 [facility] Chronic atrial fibrillation 09/27/2017 [facility] Dilated cardiomyopathy 09/27/2017 [facility] Hypertensive heart and chronic kidney disease with heart failure and stage 1 through stage 4 chronic kidney disease, or unspecified chronic kidney disease 09/27/2017 [facility] Type 2 diabetes mellitus with diabetic chronic kidney disease 09/27/2017 [facility] Chronic kidney disease, unspecified 09/27/2017 [facility] Chronic systolic heart failure 09/27/2017 [facility] Presence of automatic cardiac defibrillator 09/27/2017 [facility] Gastro-esophageal reflux disease without esophagitis 09/27/2017 [facility] Schizophrenia, unspecified 09/27/2017 [facility] 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 09/27/2017 [facility] 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 09/27/2017 [facility] Other [facility] drug therapy 09/27/2017 [facility] Morbid obesity due to excess calories 09/16/2017 [facility] Patient's other noncompliance with medication regimen 09/16/2017 [facility] Encounter for immunization 09/16/2017 [facility] Obstructive sleep apnea (pediatric) 09/16/2017 [facility] Type 2 diabetes mellitus without complications 09/16/2017 [facility] Personal history of nicotine dependence 09/16/2017 [facility] Unspecified systolic heart failure 09/16/2017 [facility] skilled nursing use of antithrombotics/antiplatelets 09/16/2017 [facility] skilled nursing use of insulin 09/16/2017 [facility] Presence of cardiac pacemaker 09/16/2017 [facility] Body mass index 29.0-29.9, adult 09/16/2017 [facility] HEART FAILURE NOS Active [facility] SYNCOPE AND COLLAPSE Active [facility] CHF NOS Active [facility] SUICIDAL IDEATION Active [facility] CHEST PAIN NOS Active [facility] [place] [facility] UNSPECIFIED ATRIAL FIBRILLATION Active [facility] CHEST PAIN, UNSPECIFIED Active [facility] OTHER CHEST PAIN Active [facility] Medications Medication Details Route Status Patient Instructions Ordering Provider Order Date Source Furosemide 20 mg, Route: IVP, Drug form: INJ, ONCE, Dosing Weight 109.091, kg, Priority: STAT, Start date: 09/30/17 20:38:00 CDT, Stop date: 09/30/17 20:38:00 CDT Inactive 10/01/2017 [facility] rivaroxaban 20 mg, 1 tab, Route: PO, Drug form: TAB, Daily, Dosing Weight 106.364, kg, Start date: 06/21/17 9:00:00 CDT, Duration: 30 day, Stop date: 07/20/17 9:00:00 CDTNotes: (Same as: Xarelto) Administer with food Inactive 06/21/2017 [facility] Digoxin 125 microgram, 1 tab, Route: PO, Drug form: TAB, Daily, Dosing Weight 106.364, kg, Start date: 06/21/17 9:00:00 CDT, Duration: 30 day, Stop date: 07/20/17 9:00:00 CDTNotes: Take on an Empty Stomach (Same as: Lanoxin) Inactive 06/21/2017 [facility] Saphris 5 mg, Route: SL, Drug form: TAB, Daily, Dosing Weight 106.364, kg, Start date: 06/21/17 9:00:00 CDT, Duration: 30 day, Stop date: 07/20/17 9:00:00 CDT Inactive 06/21/2017 [facility] oxcarbazepine 600 mg, 2 tab, Route: PO, Drug form: TAB, Bedtime, Dosing Weight 106.364, kg, Start date: 06/20/17 21:00:00 CDT, Duration: 30 day, Stop date: 07/19/17 21:00:00 CDTNotes: Do not crush or chew. (Same as: Trileptal) No Longer Active 06/21/2017 [facility] Levemir Route: SUB-Q, Bedtime, Dosing Weight 106.364, kg, Start date: 06/20/17 21:00:00 CDT, Duration: 30 day, Stop date: 07/19/17 21:00:00 CDT Inactive 06/21/2017 [facility] Clonazepam 1 mg, 1 tab, Route: PO, Drug form: TAB, Bedtime, Dosing Weight 106.364, kg, Start date: 06/20/17 21:00:00 CDT, Duration: 30 day, Stop date: 07/19/17 21:00:00 CDTNotes: (Same As: KlonoPIN) No Longer Active 06/21/2017 [facility] Coreg 25 mg, 1 tab, Route: PO, Drug form: TAB, BID, Dosing Weight 106.364, kg, Start date: 06/20/17 21:00:00 CDT, Duration: 30 day, Stop date: 07/20/17 9:00:00 CDTNotes: Give with food. (Same As: Coreg) No Longer Active 06/21/2017 [facility] atorvastatin 40 mg, 1 tab, Route: PO, Drug form: TAB, Bedtime, Dosing Weight 106.364, kg, Start date: 06/20/17 21:00:00 CDT, Duration: 30 day, Stop date: 07/19/17 21:00:00 CDTNotes: (Same as: Lipitor) No Longer Active 06/21/2017 [facility] insulin glargine 22 unit, 0.22 mL, Route: SUB-Q, Drug form: SOLN, Bedtime, Start date: 06/20/17 21:00:00 CDT, Duration: 30 day, Stop date: 07/19/17 21:00:00 CDTNotes: (Same as: Lantus) Do not hold insulin without contac ting prescriber WASTE: F/P - Black; E - Municipal Trash Bin "single patient use only" No Longer Active 06/21/2017 [facility] pantoprazole 40 mg, 1 tab, Route: PO, Drug form: ECTAB, Daily, Dosing Weight 106.364, kg, Start date: 06/20/17 17:33:00 CDT, Duration: 30 day, Stop date: 07/20/17 9:00:00 CDTNotes: Tablet should not be chewed or crushed. (Same as: Protonix) No Longer Active 06/20/2017 [facility] Metformin 850 mg, 1 tab, Route: PO, Drug form: TAB, BID, Dosing Weight 106.364, kg, Start date: 06/20/17 17:00:00 CDT, Duration: 30 day, Stop date: 07/20/17 9:00:00 CDTNotes: (Same as: Glucophage) Take with meal No Longer Active 06/20/2017 [facility] Glipizide 10 mg, 1 tab, Route: PO, Drug form: TAB, BID, Dosing Weight 106.364, kg, Start date: 06/20/17 17:00:00 CDT, Duration: 30 day, Stop date: 07/20/17 9:00:00 CDTNotes: (Same as: Glucotrol) 30 min before meals. No Longer Active 06/20/2017 [facility] Furosemide 20 mg, 1 tab, Route: PO, Drug form: TAB, BID, Dosing Weight 106.364, kg, Start date: 06/20/17 17:00:00 CDT, Duration: 30 day, Stop date: 07/20/17 9:00:00 CDTNotes: (Same as: Lasix) May cause GI upset. Give with food or milk. No Longer Active 06/20/2017 [facility] NovoLOG FlexPen 15 unit, Route: SUB-Q, TID-Before Meals, Dosing Weight 106.364, kg, Start date: 06/20/17 16:30:00 CDT, Duration: 30 day, Stop date: 07/20/17 11:30:00 CDT Inactive 06/20/2017 [facility] Humalog 15 unit, 0.15 mL, Route: SUB-Q, Drug form: SOLN, TID-Before Meals, Start date: 06/20/17 16:30:00 CDT, Duration: 30 day, Stop date: 07/20/17 11:30:00 CDTNotes: (Same as: Humalog ) Roll in palms of hands gently; Do not shake `vigorously. "Single Patient Use Only " WASTE: F/P - Black; E - Municipal Trash Bin Stable for 28 days at room temperature. Expires in days from Date No Longer Active 06/20/2017 [facility] Dextrose 50% Syringe 25 gm, 50 mL, Route: IVP, Drug Form: INJ, Dosing Weight 106.364, kg, PRN, PRN Blood Glucose Results, Start date: 06/20/17 14:25:00 CDT, Duration: 30 day, Stop date: 07/20/17 14:24:00 CDT No Longer Active 06/20/2017 [facility] Glucagon 1 mg, Route: IM, Drug form: PDR/INJ, PRN, Dosing Weight 106.364, kg, PRN Blood Glucose Results, Start date: 06/20/17 14:25:00 CDT, Duration: 30 day, Stop date: 07/20/17 14:24:00 CDT No Longer Active 06/20/2017 [facility] Insulin Lispro 3 unit, 0.03 mL, Route: SUB-Q, Drug form: SOLN, TID-Before Meals, Dosing Weight 106.364, kg, PRN Blood Glucose Results, Start date: 06/20/17 14:25:00 CDT, Duration: 30 day, Stop date: 07/20/17 14:24: 00 CDTNotes: (Same as: Humalog ) Roll in palms of hands gently; Do not shake `vigorously. "Single Patient Use Only " WASTE: F/P - Black; E - Municipal Trash Bin Stable for 28 days at room temperature. Expires in days from Date No Longer Active 06/20/2017 [facility] Tylenol 650 mg, 2 tab, Route: PO, Drug form: TAB, Q4H, Dosing Weight 106.364, kg, PRN Pain 1-3/Temp > 100.4 F, Start date: 06/20/17 14:18:00 CDT, Duration: 30 day, Stop date: 07/20/17 14:17:00 CDTNotes: Do not exceed 4 gm/day. (Same as: Tylenol) No Longer Active 06/20/2017 [facility] Sodium Chloride 0.9% (Bolus) IV 500 mL, 500 ml/hr, Infuse Over: 1 hr, Route: IV, 500, Drug form: INJ, ONCE, Priority: STAT, Dosing Weight 86.364 kg, Start date: 06/20/17 8:37:00 CDT, Stop date: 06/20/17 8:37:00 CDT Inactive 06/20/2017 [facility] Cardizem 10 mg, 2 mL, Route: IVP, Drug form: INJ, ONCE, Dosing Weight 86.364, kg, Priority: STAT, Start date: 06/20/17 8:20:00 CDT, Stop date: 06/20/17 8:20:00 CDTNotes: (Same as: Cardizem) Inactive 06/20/2017 [facility] Aluminum Hydroxide / Magnesium Hydroxide / Simethicone 30 mL, Route: PO, Drug Form: SUSP, Dosing Weight 86.364, kg, ONCE, STAT, Start date: 06/20/17 8:18:00 CDT, Stop date: 06/20/17 8:18:00 CDTNotes: (aluminum hydroxide-magnesium hyd-simethicone [phone]/5ml 30 ml ud DICK) Inactive 06/20/2017 [facility] Aspirin 325 mg, Route: PO, Drug form: TAB, ONCE, Dosing Weight 86.364, kg, Priority: STAT, Start date: 06/20/17 7:20:00 CDT, Stop date: 06/20/17 7:20:00 CDT Inactive 06/20/2017 [facility] pantoprazole 40 mg, 1 tab, Route: PO, Drug form: ECTAB, Daily, Dosing Weight 72.727, kg, Start date: 06/10/17 9:00:00 CDT, Duration: 30 day, Stop date: 07/09/17 9:00:00 CDTNotes: Tablet should not be chewed or cr ushed. (Same as: Protonix) Inactive 06/10/2017 [facility] Saphris 5 mg, Route: SL, Drug form: TAB, Daily, Dosing Weight 72.727, kg, Start date: 06/10/17 9:00:00 CDT, Duration: 30 day, Stop date: 07/09/17 9:00:00 CDT Inactive 06/10/2017 [facility] Digoxin 125 microgram, 1 tab, Route: PO, Drug form: TAB, Daily, Dosing Weight 72.727, kg, Start date: 06/10/17 9:00:00 CDT, Duration: 30 day, Stop date: 07/09/17 9:00:00 CDTNotes: Take on an Empty Stomach (Same as: Lanoxin) Inactive 06/10/2017 [facility] Tessalon Perles 200 mg, 2 cap, Route: PO, Drug form: CAP, Q6H, Dosing Weight 72.727, kg, PRN Cough/Congestion, Start date: 06/09/17 21:26:00 CDT, Duration: 30 day, Stop date: 07/09/17 21:25:00 CDTNotes: (Same As: Tessalon Perles) "Do Not Crush" No Longer Active 06/10/2017 [facility] Risperdal 2 mg, 1 tab, Route: PO, Drug form: TAB, Bedtime, Dosing Weight 90.909, kg, Start date: 06/09/17 21:00:00 CDT, Duration: 30 day, Stop date: 07/08/17 21:00:00 CDTNotes: (Same as: Risperdal) Inactive 06/10/2017 [facility] oxcarbazepine 600 mg, 1 tab, Route: PO, Drug form: TAB, Bedtime, Dosing Weight 72.727, kg, Start date: 06/09/17 21:00:00 CDT, Duration: 30 day, Stop date: 07/08/17 21:00:00 CDTNotes: (Same as: Trileptal) No Longer Active 06/10/2017 [facility] Clonazepam 1 mg, 1 tab, Route: PO, Drug form: TAB, Bedtime, Dosing Weight 72.727, kg, Start date: 06/09/17 21:00:00 CDT, Duration: 30 day, Stop date: 07/08/17 21:00:00 CDTNotes: (Same As: KlonoPIN) No Longer Active 06/10/2017 [facility] atorvastatin 40 mg, 1 tab, Route: PO, Drug form: TAB, Bedtime, Dosing Weight 72.727, kg, Start date: 06/09/17 21:00:00 CDT, Duration: 30 day, Stop date: 07/08/17 21:00:00 CDTNotes: (Same as: Lipitor) No Longer Active 06/10/2017 [facility] insulin glargine 22 unit, 0.22 mL, Route: SUB-Q, Drug form: SOLN, Bedtime, Start date: 06/09/17 21:00:00 CDT, Duration: 30 day, Stop date: 07/08/17 21:00:00 CDTNotes: (Same as: Lantus) Do not hold insulin without contac ting prescriber WASTE: F/P - Black; E - Municipal Trash Bin "single patient use only" No Longer Active 06/10/2017 [facility] Levemir Route: SUB-Q, Bedtime, Dosing Weight 72.727, kg, Start date: 06/09/17 21:00:00 CDT, Duration: 30 day, Stop date: 07/08/17 21:00:00 CDT Inactive 06/10/2017 [facility] Coreg 25 mg, 1 tab, Route: PO, Drug form: TAB, BID, Dosing Weight 72.727, kg, Start date: 06/09/17 17:00:00 CDT, Duration: 30 day, Stop date: 07/09/17 9:00:00 CDTNotes: Give with food. (Same As: Coreg) No Longer Active 06/09/2017 [facility] Glimepride 2 mg tab Glimepride 2 mg tab, 4 mg, Drug form: MISC, Route: PO, BID, 06/09/17 17:00:00 CDT, Duration: 30 day, Stop date: 07/09/17 9:00:00 CDT Inactive 06/09/2017 [facility] Furosemide 20 mg, 1 tab, Route: PO, Drug form: TAB, BID, Dosing Weight 72.727, kg, Start date: 06/09/17 17:00:00 CDT, Duration: 30 day, Stop date: 07/09/17 9:00:00 CDTNotes: (Same as: Lasix) May cause GI upset. Give with food or milk. No Longer Active 06/09/2017 [facility] Glipizide 10 mg, 1 tab, Route: PO, Drug form: TAB, BID, Dosing Weight 72.727, kg, Start date: 06/09/17 17:00:00 CDT, Duration: 30 day, Stop date: 07/09/17 9:00:00 CDTNotes: (Same as: Glucotrol) 30 min before meals. No Longer Active 06/09/2017 [facility] Metformin 850 mg, 1 tab, Route: PO, Drug form: TAB, BID, Dosing Weight 72.727, kg, Start date: 06/09/17 17:00:00 CDT, Duration: 30 day, Stop date: 07/09/17 9:00:00 CDTNotes: (Same as: Glucophage) Take with meal No Longer Active 06/09/2017 [facility] Insulin Lispro 10 unit, 0.1 mL, Route: SUB-Q, Drug form: SOLN, TID-Before Meals, Dosing Weight 72.727, kg, PRN Blood Glucose Results, Start date: 06/09/17 16:15:00 CDT, Duration: 30 day, Stop date: 07/09/17 16:14:0 0 CDTNotes: (Same as: Humalog ) Roll in palms of hands gently; Do not shake `vigorously. "Single Patient Use Only " WASTE: F/P - Black; E - [employer] Trash Bin Stable for 28 days at room temperature. Expires in days from Date No Longer Active 06/09/2017 [facility] Dextrose 50% Syringe 12.5 gm, 25 mL, Route: IVP, Drug Form: INJ, Dosing Weight 72.727, kg, PRN, PRN Blood Glucose Results, Start date: 06/09/17 16:15:00 CDT, Duration: 30 day, Stop date: 07/09/17 16:14:00 CDT No Longer Active 06/09/2017 [facility] Glucagon 1 mg, Route: IM, Drug form: PDR/INJ, PRN, Dosing Weight 72.727, kg, PRN Blood Glucose Results, Start date: 06/09/17 16:15:00 CDT, Duration: 30 day, Stop date: 07/09/17 16:14:00 CDT No Longer Active 06/09/2017 [facility] Tylenol 650 mg, 2 tab, Route: PO, Drug form: TAB, Q4H, Dosing Weight 72.727, kg, PRN Pain 1-3/Temp > 100.4 F, Start date: 06/09/17 16:08:00 CDT, Duration: 30 day, Stop date: 07/09/17 16:07:00 CDTNotes: Do not exceed 4 gm/day. (Same as: Tylenol) No Longer Active 06/09/2017 [facility] Humalog See Instructions, 15-25 units before meals depending on the blood sugar, 0 Refill(s) Active 06/09/2017 [facility] Levemir 22units, SUB-Q, Bedtime, 0 Refill(s) Active 06/09/2017 [facility] oxcarbazepine 600 mg=1 tab, PO, Bedtime, # 30 tab, 0 Refill(s) Active 06/09/2017 [facility] atorvastatin 40 mg, PO, Bedtime, 0 Refill(s) Active 06/09/2017 [facility] Glipizide 10 mg, PO, BID, 0 Refill(s) Active 06/09/2017 [facility] Metformin 850 mg, PO, BID, 0 Refill(s) Active 06/09/2017 [facility] Coreg 25 mg, PO, BID, 0 Refill(s) Active 06/09/2017 [facility] Asenapine 5 MG Sublingual Tablet [Saphris] 5 mg=1 tab, SL, Daily, 0 Refill(s) Active 06/09/2017 [facility] Digoxin 125 microgram, PO, Daily, 0 Refill(s) Active 06/09/2017 [facility] zolpidem Bedtime, 0 Refill(s) Inactive 06/09/2017 [facility] Furosemide 20 mg, PO, BID, 0 Refill(s) Active 06/09/2017 [facility] Spironolactone 25 mg, 1 tab, Route: PO, Drug form: TAB, BID, Dosing Weight 90.909, kg, Start date: 06/09/17 9:00:00 CDT, Duration: 30 day, Stop date: 07/08/17 17:00:00 CDTNotes: (Same As: Aldactone) Inactive 06/09/2017 [facility] 12 HR ranolazine 500 MG Extended Release Tablet [Ranexa] 500 mg, 1 tab, Route: PO, Drug form: TAB, BID, Dosing Weight 90.909, kg, Start date: 06/09/17 9:00:00 CDT, Duration: 30 day, Stop date: 07/08/17 17:00:00 CDTNotes: Same as Ranexa "Do Not Crush" Inactive 06/09/2017 [facility] Metformin 1,000 mg, 2 tab, Route: PO, Drug form: TAB, BID, Dosing Weight 90.909, kg, Start date: 06/09/17 9:00:00 CDT, Duration: 30 day, Stop date: 07/08/17 17:00:00 CDTNotes: (Same as: Glucophage) Take with meal Inactive 06/09/2017 [facility] Lisinopril 2.5 mg, 0.5 tab, Route: PO, Drug form: TAB, Daily, Dosing Weight 90.909, kg, Start date: 06/09/17 9:00:00 CDT, Duration: 30 day, Stop date: 07/08/17 9:00:00 CDTNotes: (Same as: Prinivil, Zestril) No Longer Active 06/09/2017 [facility] glimepiride 4 mg, Route: PO, Drug form: TAB, BID, Dosing Weight 90.909, kg, Start date: 06/09/17 9:00:00 CDT, Duration: 30 day, Stop date: 07/08/17 17:00:00 CDT Inactive 06/09/2017 [facility] Furosemide 40 MG Oral Tablet [Lasix] 40 mg, 1 tab, Route: PO, Drug form: TAB, BID, Dosing Weight 90.909, kg, Start date: 06/09/17 9:00:00 CDT, Duration: 30 day, Stop date: 07/08/17 17:00:00 CDTNotes: (Same as: Lasix) May cause GI upset. Give with food or milk. Inactive 06/09/2017 [facility] Digoxin 0.25 MG Oral Tablet 0.25 mg, 1 tab, Route: PO, Drug form: TAB, Daily, Dosing Weight 90.909, kg, Start date: 06/09/17 9:00:00 CDT, Duration: 30 day, Stop date: 07/08/17 9:00:00 CDTNotes: Take on an Empty Stomach (Same as: Lanoxin) Inactive 06/09/2017 [facility] carvedilol 18.75 mg, 3 tab, Route: PO, Drug form: TAB, Q12H, Dosing Weight 90.909, kg, Start date: 06/09/17 9:00:00 CDT, Duration: 30 day, Stop date: 07/08/17 21:00:00 CDTNotes: Give with food. (Same As: Coreg) Inactive 06/09/2017 [facility] Aspirin 81 MG Enteric Coated Tablet 81 mg, 1 tab, Route: PO, Drug form: ECTAB, Daily, Dosing Weight 90.909, kg, Start date: 06/09/17 9:00:00 CDT, Duration: 30 day, Stop date: 07/08/17 9:00:00 CDTNotes: Do not crush or chew. (Same As: Ecotrin) No Longer Active 06/09/2017 [facility] Zofran 4 mg, Route: IVP, Drug form: INJ, ONCE, Dosing Weight 90.909, kg, Priority: STAT, Start date: 06/09/17 3:31:00 CDT, Stop date: 06/09/17 3:31:00 CDT Inactive 06/09/2017 [facility] Ondansetron 4 mg, 2 mL, Route: IVP, Drug form: INJ, ONCE, Dosing Weight 90.909, kg, Priority: STAT, Start date: 06/09/17 3:07:00 CDT, Stop date: 06/09/17 3:07:00 CDTNotes: (Same as: Zofran) MEDICATION WASTE * Product Size: 4 mg Product Wasted: ___ mg Inactive 06/09/2017 [facility] Morphine 2 mg, 0.5 mL, Route: IVP, Drug form: INJ, ONCE, Dosing Weight 90.909, kg, Priority: STAT, Start date: 06/09/17 3:07:00 CDT, Stop date: 06/09/17 3:07:00 CDTNotes: (Same as:MORPhine Sulfate) Inactive 06/09/2017 [facility] Aspirin 324 mg, 4 tab, Route: PO, Drug form: CHEWTAB, ONCE, Dosing Weight 90.909, kg, Priority: STAT, Start date: 06/09/17 3:07:00 CDT, Stop date: 06/09/17 3:07:00 CDTNotes: Take with food. Inactive 06/09/2017 [facility] Saline Flush 0.9% 10 mL, Route: IVP, Drug Form: INJ, Dosing Weight 90.909, kg, PRN, PRN Line Flush, Start date: 06/09/17 3:07:00 CDT, Duration: 30 day, Stop date: 07/09/17 3:06:00 CDTNotes: (Same as: BD Posiflush) No Longer Active 06/09/2017 [facility] rivaroxaban 20 mg, 1 tab, Route: PO, Drug form: TAB, Dinner, Dosing Weight 99.6, kg, Start date: 03/08/17 17:00:00 WEIGHT RECORDER, Duration: 30 day, Stop date: 04/06/17 17:00:00 CSTNotes: (Same as: Xarelto) Administer with food Inactive 03/08/2017 [facility] tizanidine 2 mg oral capsule 2 mg=1 cap, PO, Q8H, PRN for muscle spasm, # 21 cap, 0 Refill(s), Pharmacy: [facility] [id number] Active 03/08/2017 [facility] potassium chloride 20 mEq oral tablet, extended release 20 mEq=1 tab, PO, Daily, # 3 tab, 0 Refill(s), Pharmacy: [facility] [id number] Active 03/08/2017 [facility] tizanidine 2 mg oral capsule 2 mg=1 cap, PO, Q8H, PRN for muscle spasm, # 21 cap, 0 Refill(s), Pharmacy: [facility] [id number] Inactive 03/08/2017 [facility] potassium chloride 20 mEq oral tablet, extended release 20 mEq=1 tab, PO, Daily, # 3 tab, 0 Refill(s), Pharmacy: [facility] [id number] Inactive 03/08/2017 [facility] K-Dur 20 40 mEq, 2 tab, Route: PO, Drug form: ERTAB, ONCE, Start date: 03/08/17 10:00:00 WEIGHT RECORDER, Stop date: 03/08/17 10:00:00 CSTNotes: (Same as: K-Dur 20) "Do Not Crush" With food and full glass of water Inactive 03/08/2017 [facility] Lasix 40 mg, 1 tab, Route: PO, Drug form: TAB, BID, Dosing Weight 99.6, kg, Start date: 03/08/17 9:00:00 WEIGHT RECORDER, Duration: 30 day, Stop date: 04/06/17 17:00:00 CSTNotes: (Same as: Lasix) May cause GI upset. Give with food or milk. Inactive 03/08/2017 [facility] Coreg 12.5 mg, 1 tab, Route: PO, Drug form: TAB, Q12H, Dosing Weight 99.6, kg, Start date: 03/08/17 9:00:00 WEIGHT RECORDER, Duration: 30 day, Stop date: 04/06/17 21:00:00 CSTNotes: Give with food. (Same As: Coreg) Inactive 03/08/2017 [facility] ranolazine 500 mg, 1 tab, Route: PO, Drug form: TAB, BID, Dosing Weight 99.6, kg, Start date: 03/08/17 9:00:00 WEIGHT RECORDER, Duration: 30 day, Stop date: 04/06/17 17:00:00 CSTNotes: Same as Ranexa "Do Not Crush" Inactive 03/08/2017 [facility] potassium chloride 20 mEq oral tablet, extended release 40 mEq, 30 mL, Route: PO, Drug form: LIQ, ONCE, Dosing Weight 99.6, kg, Start date: 03/08/17 8:36:00 WEIGHT RECORDER, Stop date: 03/08/17 8:36:00 CSTNotes: (Same as: Potassium Chloride) Inactive 03/08/2017 [facility] pneumococcal capsular polysaccharide type 1 vaccine / pneumococcal capsular polysaccharide type 10A vaccine / pneumococcal capsular polysaccharide type 11A vaccine / pneumococcal capsular polysaccharide type 12F vaccine / pneumococcal capsular polysacchar 0.5 mL, Route: IM, Drug Form: INJ, ONCALL, Start date: 03/08/17 6:38:10 WEIGHT RECORDER, Stop date: 04/07/17 6:33:10 CSTNotes: (Same as: Pneumovax 23) Refrigerate Inactive 03/08/2017 [facility] Insulin Lispro 1 unit, 0.01 mL, Route: SUB-Q, Drug form: SOLN, Bedtime, Dosing Weight 99.6, kg, PRN Blood Glucose Results, Start date: 03/08/17 6:10:00 WEIGHT RECORDER, Duration: 30 day, Stop date: 04/07/17 6:09:00 CSTNotes: R oll in palms of hands gently; Do not shake `vigorously. (Same as: Humalog ) "Single Patient Use Only " WASTE: F/P - Black; E - Municipal Trash Bin Stable for 28 days at room temperature. Expires in days from Date Inactive 03/08/2017 [facility] Glucagon 1 mg, Route: IM, PRN, Dosing Weight 99.6, kg, PRN Blood Glucose Results, Start date: 03/08/17 6:10:00 WEIGHT RECORDER, Duration: 30 day, Stop date: 04/07/17 6:09:00 WEIGHT RECORDER Inactive 03/08/2017 [facility] Dextrose 50% Syringe 50 mL, Route: IVP, Dosing Weight 99.6, kg, PRN, PRN Blood Glucose Results, Start date: 03/08/17 6:10:00 WEIGHT RECORDER, Duration: 30 day, Stop date: 04/07/17 6:09:00 WEIGHT RECORDER Inactive 03/08/2017 [facility] Insulin Lispro 5 unit, 0.05 mL, Route: SUB-Q, Drug form: SOLN, TID-Before Meals, Dosing Weight 99.6, kg, PRN Blood Glucose Results, Start date: 03/08/17 6:09:00 WEIGHT RECORDER, Duration: 30 day, Stop date: 04/07/17 6:08:00 CSTNotes: Roll in palms of hands gently; Do not shake `vigorously. (Same as: Humalog ) "Single Patient Use Only " WASTE: F/P - Black; E - Municipal Trash Bin Stable for 28 days at room temperature. Expires in days from Date Inactive 03/08/2017 [facility] Dextrose 50% Syringe 25 gm, 50 mL, Route: IVP, Drug Form: INJ, Dosing Weight 99.6, kg, PRN, PRN Blood Glucose Results, Start date: 03/08/17 6:09:00 WEIGHT RECORDER, Duration: 30 day, Stop date: 04/07/17 6:08:00 WEIGHT RECORDER Inactive 03/08/2017 [facility] Glucagon 1 mg, Route: IM, Drug form: PDR/INJ, PRN, Dosing Weight 99.6, kg, PRN Blood Glucose Results, Start date: 03/08/17 6:09:00 WEIGHT RECORDER, Duration: 30 day, Stop date: 04/07/17 6:08:00 WEIGHT RECORDER Inactive 03/08/2017 [facility] Ondansetron 4 mg, 2 mL, Route: IVP, Drug form: INJ, Q6H, Dosing Weight 99.6, kg, PRN Nausea & Vomiting, Start date: 03/08/17 4:38:00 WEIGHT RECORDER, Duration: 30 day, Stop date: 04/07/17 4:37:00 CSTNotes: (Same as: Jelena) MEDICATION WASTE Product Size: 4 mg Product Wasted: ___ mg Inactive 03/08/2017 [facility] Acetaminophen 650 mg, 2 tab, Route: PO, Drug form: TAB, Q4H, Dosing Weight 99.6, kg, PRN Pain 1-3/Temp > 100.4 F, Start date: 03/08/17 4:38:00 WEIGHT RECORDER, Duration: 30 day, Stop date: 04/07/17 4:37:00 CSTNotes: Do not ex ceed 4 gm/day. (Same as: Tylenol) Inactive 03/08/2017 [facility] Trazodone Hydrochloride 50 MG Oral Tablet 50 mg, 1 tab, Route: PO, Drug form: TAB, Bedtime, Dosing Weight 99.6, kg, Priority: STAT, Start date: 03/08/17 1:20:00 WEIGHT RECORDER, Duration: 30 day, Stop date: 04/06/17 21:00:00 CSTNotes: (Same As: Veto) Inactive 03/08/2017 [facility] Furosemide 40 MG Oral Tablet [Lasix] 40 mg=1 tab, PO, BID, 0 Refill(s) Active 03/08/2017 [facility] digoxin 250 mcg (0.25 mg) oral tablet 0.25 mg, PO, Daily, 0 Refill(s) Active 03/08/2017 [facility] Bisacodyl 5 MG Enteric Coated Tablet [Dulcolax] 10 mg=2 tab, PO, Daily, PRN Constipation, 0 Refill(s) Active 03/08/2017 [facility] aspirin 81 mg tablet, enteric coated 81 mg=1 tab, PO, Daily, # 90 tab, 3 Refill(s) Active 03/08/2017 [facility] loratadine 10 mg oral tablet 10 mg=1 tab, PO, Daily, 0 Refill(s) Active 03/08/2017 [facility] Acetaminophen 325 MG Oral Tablet [Tylenol] 650 mg=2 tab, PO, Q4H, PRN Fever, 0 Refill(s) Active 03/08/2017 [facility] Zolpidem tartrate 5 MG Oral Tablet [Ambien] 5 mg=1 tab, PO, Bedtime, PRN for sleep, 0 Refill(s) Active 03/08/2017 [facility] spironolactone 25 mg oral tablet 25 mg=1 tab, PO, BID, 0 Refill(s) Active 03/08/2017 [facility] 200 ACTUAT Albuterol 0.09 MG/ACTUAT / Ipratropium [place] 0.018 MG/ACTUAT Metered Dose Inhaler [Combivent] 2 puff, INHALATION, QID, # 29 gm, 0 Refill(s) Active 03/08/2017 [facility] glimepiride 4 mg oral tablet 4 mg=1 tab, PO, BID, 0 Refill(s) Active 03/08/2017 [facility] Albuterol 0.833 MG/ML / Ipratropium [place] 0.167 MG/ML Inhalant Solution [DuoNeb] 3 mL, NEB, Q6H, PRN as needed for shortness of breath or wheezing, 0 Refill(s) Active 03/08/2017 [facility] 12 HR ranolazine 500 MG Extended Release Tablet [Ranexa] 500 mg=1 tab, PO, BID, 0 Refill(s) Active 03/08/2017 [facility] pantoprazole 40 mg oral enteric coated tablet 40 mg=1 tab, PO, Daily, 0 Refill(s) Active 03/08/2017 [facility] Potassium Chloride 40 mEq, 2 tab, Route: PO, Drug form: ERTAB, ONCE, Dosing Weight 101.364, kg, Priority: STAT, Start date: 03/07/17 22:25:00 WEIGHT RECORDER, Stop date: 03/07/17 22:25:00 CSTNotes: (Same as: K-Dur 20) "Do Not Crush" With food and full glass of water Inactive 03/08/2017 [facility] Aspirin 81 MG Chewable Tablet 324 mg, 4 tab, Route: PO, Drug form: CHEWTAB, ONCE, Dosing Weight 101.364, kg, Priority: STAT, Start date: 03/07/17 20:53:00 WEIGHT RECORDER, Stop date: 03/07/17 20:53:00 CSTNotes: Take with food. Inactive 03/08/2017 [facility] Saline Flush 0.9% 10 mL, Route: IVP, Drug Form: INJ, Dosing Weight 101.364, kg, PRN, PRN Line Flush, Start date: 03/07/17 20:47:00 WEIGHT RECORDER, Duration: 30 day, Stop date: 04/06/17 20:46:00 CSTNotes: (Same as: BD Posiflush) No Longer Active 03/08/2017 [facility] torsemide 20 mg, 2 tab, Route: PO, Drug form: TAB, Daily, Dosing Weight 101.364, kg, Start date: 02/21/17 9:00:00 WEIGHT RECORDER, Duration: 30 day, Stop date: 03/22/17 9:00:00 CSTNotes: (Same As: Demadex) No Longer Active 02/21/2017 [facility] Lisinopril 2.5 mg, 0.5 tab, Route: PO, Drug form: TAB, Daily, Dosing Weight 101.364, kg, Start date: 02/21/17 9:00:00 WEIGHT RECORDER, Duration: 30 day, Stop date: 03/22/17 9:00:00 CSTNotes: (Same as: Prinivil, Zestril) No Longer Active 02/21/2017 [facility] carvedilol 18.75 mg, 1.5 tab, Route: PO, Drug form: TAB, Q12H, Dosing Weight 101.364, kg, Start date: 02/21/17 9:00:00 WEIGHT RECORDER, Duration: 30 day, Stop date: 03/22/17 21:00:00 CSTNotes: Give with food. (Same As: Coreg) No Longer Active 02/21/2017 [facility] Geodon 10 mg, Route: IM, Drug form: PDR/INJ, ONCE, Dosing Weight 101.364, kg, PRN Agitation, Start date: 02/21/17 6:38:00 CSTNotes: Reconstitute with 1.2 ml of sterile water. Final concentration=20 mg/1ml. Maximum 40 mg/24 hours (Same As: Geodon). MEDICATION WASTE Product Size: 20 mg Product Wasted: _10__ mg Inactive 02/21/2017 [facility] Lorazepam 1 mg, 1 tab, Route: PO, Drug form: TAB, ONCE, Dosing Weight 101.364, kg, Priority: NOW, Start date: 02/21/17 4:55:00 WEIGHT RECORDER, Stop date: 02/21/17 4:55:00 CSTNotes: (Same as: Ativan) Inactive 02/21/2017 [facility] Trazodone Hydrochloride 50 MG Oral Tablet 50 mg, 1 tab, Route: PO, Drug form: TAB, Bedtime, Dosing Weight 101.364, kg, Start date: 02/20/17 23:30:00 WEIGHT RECORDER, Duration: 30 day, Stop date: 03/22/17 21:00:00 CSTNotes: (Same As: Desyrel) No Longer Active 02/21/2017 [facility] Risperdal 2 mg, 2 tab, Route: PO, Drug form: TAB, Bedtime, Dosing Weight 101.364, kg, Start date: 02/20/17 23:30:00 WEIGHT RECORDER, Duration: 30 day, Stop date: 03/22/17 21:00:00 CSTNotes: (Same as: Risperdal) No Longer Active 02/21/2017 [facility] Clonazepam 1 mg, 2 tab, Route: PO, Drug form: TAB, Bedtime, Dosing Weight 101.364, kg, Start date: 02/20/17 23:30:00 WEIGHT RECORDER, Duration: 30 day, Stop date: 03/22/17 21:00:00 CSTNotes: (Same As: KlonoPIN) No Longer Active 02/21/2017 [facility] morphine Sulfate 6 mg, 3 mL, Route: PO, Drug form: SOLN, Q4H, PRN Pain Score 7-10, Start date: 02/20/17 22:13:00 WEIGHT RECORDER, Duration: 30 day, Stop date: 03/22/17 22:12:00 CSTNotes: (Same as:MORPhine Sulfate) No Longer Active 02/21/2017 [facility] Insulin Lispro 4 unit, 0.04 mL, Route: SUB-Q, Drug form: SOLN, TID-Before Meals, Dosing Weight 101.364, kg, PRN Blood Glucose Results, Start date: 02/20/17 21:28:00 WEIGHT RECORDER, Duration: 30 day, Stop date: 03/22/17 21:27: 00 CSTNotes: Roll in palms of hands gently; Do not shake `vigorously. (Same as: Humalog ) "Single Patient Use Only " WASTE: F/P - Black; E - Municipal Trash Bin Stable for 28 days at room temperature. Expires in days from Date No Longer Active 02/21/2017 [facility] Glucagon 1 mg, Route: IM, Drug form: PDR/INJ, PRN, Dosing Weight 101.364, kg, PRN Blood Glucose Results, Start date: 02/20/17 21:28:00 WEIGHT RECORDER, Duration: 30 day, Stop date: 03/22/17 21:27:00 WEIGHT RECORDER No Longer Active 02/21/2017 [facility] Dextrose 50% Syringe 25 gm, 50 mL, Route: IVP, Drug Form: INJ, Dosing Weight 101.364, kg, PRN, PRN Blood Glucose Results, Start date: 02/20/17 21:28:00 WEIGHT RECORDER, Duration: 30 day, Stop date: 03/22/17 21:27:00 WEIGHT RECORDER No Longer Active 02/21/2017 [facility] Acetaminophen 325 MG / Hydrocodone Bitartrate 5 MG Oral Tablet 1 tab, Route: PO, Drug Form: TAB, Dosing Weight 101.364, kg, Q4H, PRN Pain Score 4-6, Start date: 02/20/17 21:21:00 WEIGHT RECORDER, Duration: 30 day, Stop date: 03/22/17 21:20:00 CSTNotes: (Same as: [place] 325/5) Do not exceed 4gm/day of acetaminophen. No Longer Active 02/21/2017 [facility] Morphine 2 mg, Route: IVP, Q4H, Dosing Weight 101.364, kg, PRN Pain Score 7-10, Start date: 02/20/17 21:21:00 WEIGHT RECORDER, Duration: 30 day, Stop date: 03/22/17 21:20:00 WEIGHT RECORDER Inactive 02/21/2017 [facility] rivaroxaban 20 mg oral tablet 20 mg=1 tab, PO, Daily, 0 Refill(s) Active 02/21/2017 [facility] torsemide 20 mg oral tablet 20 mg=1 tab, PO, Daily, # 30 tab, 1 Refill(s) Active 02/21/2017 [facility] Saline Flush 0.9% 10 mL, Route: IVP, Drug Form: INJ, Dosing Weight 102.727, kg, PRN, PRN Line Flush, Start date: 02/20/17 16:50:00 WEIGHT RECORDER, Duration: 30 day, Stop date: 03/22/17 16:49:00 CSTNotes: (Same as: BD Posiflush) No Longer Active 02/20/2017 [facility] trazodone 50 mg oral tablet 50 mg, 1 tab, Route: PO, Drug form: TAB, Bedtime, Dosing Weight 101.449, kg, Start date: 01/21/17 21:00:00 CDT, Duration: 30 day, Stop date: 02/19/17 21:00:00 CSTNotes: (Same As: Desyrel) No Longer Active 01/22/2017 [facility] Risperdal 2 mg, 1 tab, Route: PO, Drug form: TAB, Bedtime, Dosing Weight 101.449, kg, Start date: 01/21/17 21:00:00 CDT, Duration: 30 day, Stop date: 02/19/17 21:00:00 CSTNotes: (Same as: Risperdal) No Longer Active 01/22/2017 [facility] clonazePAM 1 mg, 1 tab, Route: PO, Drug form: TAB, Bedtime, Dosing Weight 101.449, kg, Start date: 01/21/17 21:00:00 CDT, Duration: 30 day, Stop date: 02/19/17 21:00:00 CSTNotes: (Same As: KlonoPIN) No Longer Active 01/22/2017 [facility] digoxin 125 mcg (0.125 mg) oral tablet 125 microgram=1 tab, PO, Daily, # 30 tab, 0 Refill(s), Pharmacy: [facility] [id number] Active 01/21/2017 [facility] digoxin 250 mcg (0.25 mg) oral tablet 0.125 mg, PO, Daily, # 30 tab, 0 Refill(s) Inactive 01/21/2017 [facility] torsemide 20 mg, 1 tab, Route: PO, Drug form: TAB, Daily, Dosing Weight 101.449, kg, Start date: 01/21/17 9:00:00 CDT, Duration: 30 day, Stop date: 02/19/17 9:00:00 CSTNotes: (Same As: Demadex) No Longer Active 01/21/2017 [facility] rivaroxaban 20 mg, 1 tab, Route: PO, Drug form: TAB, Daily, Dosing Weight 101.449, kg, Start date: 01/21/17 9:00:00 CDT, Duration: 30 day, Stop date: 02/19/17 9:00:00 CSTNotes: (Same as: Xarelto) Administer with food No Longer Active 01/21/2017 [facility] Ranexa 500 mg oral tablet, extended release 500 mg, 1 tab, Route: PO, Drug form: TAB, Q12H, Dosing Weight 101.449, kg, Start date: 01/21/17 9:00:00 CDT, Duration: 30 day, Stop date: 02/19/17 21:00:00 CSTNotes: Same as Ranexa "Do Not Crush" No Longer Active 01/21/2017 [facility] lisinopril 2.5 mg, 0.5 tab, Route: PO, Drug form: TAB, Daily, Dosing Weight 101.449, kg, Start date: 01/21/17 9:00:00 CDT, Duration: 30 day, Stop date: 02/19/17 9:00:00 CSTNotes: (Same as: Prinivil, Zestril) No Longer Active 01/21/2017 [facility] digoxin 250 mcg (0.25 mg) oral tablet 0.125 mg, 1 tab, Route: PO, Drug form: TAB, Daily, Dosing Weight 101.449, kg, Start date: 01/21/17 9:00:00 CDT, Stop date: 02/19/17 9:00:00 CSTNotes: Take on an Empty Stomach (Same as: Lanoxin) No Longer Active 01/21/2017 [facility] carvedilol 18.75 mg, 1.5 tab, Route: PO, Drug form: TAB, Q12H, Dosing Weight 101.449, kg, Start date: 01/21/17 9:00:00 CDT, Duration: 30 day, Stop date: 02/19/17 21:00:00 CSTNotes: Give with food. (Same As: Coreg) No Longer Active 01/21/2017 [facility] pantoprazole 40 mg, 1 tab, Route: PO, Drug form: ECTAB, Before Breakfast, Dosing Weight 101.449, kg, Start date: 01/21/17 7:30:00 CDT, Duration: 30 day, Stop date: 02/19/17 7:30:00 CSTNotes: Tablet should not be chewed or crushed. (Same as: Protonix) No Longer Active 01/21/2017 [facility] Sodium Chloride 0.9% IV 250 mL, Route: IVPB, Start date: 01/21/17 3:54:00 CDT, Duration: 30 day, Stop date: 02/20/17 2:53:00 WEIGHT RECORDER, PRN Line Flush No Longer Active 01/21/2017 [facility] zolpidem 10 mg, 2 tab, Route: PO, Drug form: TAB, Bedtime, Dosing Weight 101.449, kg, PRN Sleep, Start date: 01/21/17 3:49:00 CDT, Duration: 30 day, Stop date: 02/20/17 3:48:00 CSTNotes: (Same As: Ambien) No Longer Active 01/21/2017 [facility] potassium chloride 40 mEq, 2 tab, Route: PO, Drug form: ERTAB, ONCE, Dosing Weight 101.449, kg, Start date: 01/21/17 3:48:00 CDT, Stop date: 01/21/17 3:48:00 CDTNotes: (Same as: K-Dur 20) "Do Not Crush" With food and full glass of water Inactive 01/21/2017 [facility] Dextrose 50% Syringe 25 gm, 50 mL, Route: IVP, Drug Form: INJ, Dosing Weight 101.449, kg, PRN, PRN Blood Glucose Results, Start date: 01/21/17 1:57:00 CDT, Duration: 30 day, Stop date: 02/20/17 0:56:00 WEIGHT RECORDER No Longer Active 01/21/2017 [facility] glucagon 1 mg, Route: IM, Drug form: PDR/INJ, PRN, Dosing Weight 101.449, kg, PRN Blood Glucose Results, Start date: 01/21/17 1:57:00 CDT, Duration: 30 day, Stop date: 02/20/17 0:56:00 WEIGHT RECORDER No Longer Active 01/21/2017 [facility] insulin lispro 4 unit, 0.04 mL, Route: SUB-Q, Drug form: SOLN, Sliding Scale, Dosing Weight 101.449, kg, PRN Blood Glucose Results, Start date: 01/21/17 1:57:00 CDT, Duration: 30 day, Stop date: 02/20/17 0:56:00 CSTNotes: Roll in palms of hands gently; Do not shake `vigorously. (Same as: Humalog ) "Single Patient Use Only " WASTE: F/P - Black; E - Municipal Trash Bin Stable for 28 days at room temperature. Expires in days from Date No Longer Active 01/21/2017 [facility] morphine Sulfate 6 mg, 3 mL, Route: PO, Drug form: SOLN, Q4H, Dosing Weight 101.449, kg, PRN Pain Score 7-10, Start date: 01/21/17 1:54:00 CDT, Duration: 30 day, Stop date: 02/20/17 1:53:00 CSTNotes: (Same as:MORPhine Sulfate) No Longer Active 01/21/2017 [facility] ondansetron 4 mg, 2 mL, Route: IVP, Drug form: INJ, Q6H, Dosing Weight 101.449, kg, PRN Nausea & Vomiting, Start date: 01/21/17 1:54:00 CDT, Duration: 30 day, Stop date: 02/20/17 1:53:00 CSTNotes: (Same as: Zofran) MEDICATION WASTE Product Size: 4 mg Product Wasted: ___ mg No Longer Active 01/21/2017 [facility] acetaminophen 650 mg, 2 tab, Route: PO, Drug form: TAB, Q4H, Dosing Weight 101.449, kg, PRN Pain 1-3/Temp > 100.4 F, Start date: 01/21/17 1:54:00 CDT, Duration: 30 day, Stop date: 02/20/17 1:53:00 CSTNotes: Do not exceed 4 gm/day. (Same as: Tylenol) No Longer Active 01/21/2017 [facility] Ranexa 500 mg oral tablet, extended release 500 mg=1 tab, PO, Q12H, 0 Refill(s) Active 01/21/2017 [facility] carvedilol 12.5 mg oral tablet 18.75 mg=1.5 tab, PO, Q12H, 0 Refill(s) Active 01/21/2017 [facility] lisinopril 2.5 mg oral tablet 2.5 mg=1 tab, PO, Daily, 0 Refill(s) Active 01/21/2017 [facility] glipiZIDE 10 mg oral tablet, extended release 10 mg=1 tab, PO, BID, 0 Refill(s) Active 01/21/2017 [facility] Risperdal 2 mg oral tablet 2 mg=1 tab, PO, Bedtime, # 60 tab, 0 Refill(s) Active 01/21/2017 [facility] Wild Rose 10/325 oral tablet 1 tab, Route: PO, Drug Form: TAB, Dosing Weight 102.273, kg, ONCE, STAT, Start date: 01/20/17 20:43:00 CDT, Stop date: 01/20/17 20:43:00 CDT Inactive 01/21/2017 [facility] Ativan 1 mg, Route: PO, Drug form: TAB, ONCE, Dosing Weight 102.273, kg, Priority: STAT, Start date: 01/20/17 20:43:00 CDT, Stop date: 01/20/17 20:43:00 CDT Inactive 01/21/2017 [facility] ondansetron 4 mg, Route: IVP, ONCE, Dosing Weight 102.273, kg, Priority: STAT, Start date: 01/20/17 20:32:00 CDT, Stop date: 01/20/17 20:32:00 CDT Inactive 01/21/2017 [facility] nitroglycerin 2% ointment 1 inch, Route: TOP, Dosing Weight 102.273, kg, ONCE, STAT, Start date: 01/20/17 20:32:00 CDT, Stop date: 01/20/17 20:32:00 CDT Inactive 01/21/2017 [facility] Saline Flush 0.9% 10 mL, Route: IVP, Drug Form: INJ, Dosing Weight 102.273, kg, PRN, PRN Line Flush, Start date: 01/20/17 20:32:00 CDT, Duration: 30 day, Stop date: 02/19/17 19:31:00 CSTNotes: (Same as: BD Posiflush) No Longer Active 01/21/2017 [facility] Saline Flush 0.9% 10 mL, Route: IVP, Drug Form: INJ, Dosing Weight 107.273, kg, PRN, PRN Line Flush, Start date: 12/23/16 1:17:00 CDT, Duration: 30 day, Stop date: 01/22/17 1:16:00 CDTNotes: (Same as: BD Posiflush) Inactive 12/23/2016 [facility] Saline Flush 0.9% 10 ml, Route: IVP, Drug Form: INJ, Dosing Weight 106.818, kg, Q12H, Start date: 11/09/16 21:00:00 CDT, Duration: 30 day, Stop date: 12/09/16 9:00:00 CDTNotes: (Same as: BD Posiflush) Inactive 11/10/2016 [facility] atorvastatin 20 mg, 1 tab, Route: PO, Drug form: TAB, Bedtime, Dosing Weight 106.818, kg, Start date: 11/09/16 21:00:00 CDT, Duration: 30 day, Stop date: 12/08/16 21:00:00 CDTNotes: (Same As: Lipitor) Inactive 11/10/2016 [facility] Xarelto 20 mg, 1 tab, Route: PO, Drug form: TAB, QPM, Dosing Weight 106.818, kg, Priority: NOW, Start date: 11/09/16 20:45:00 CDT, Duration: 30 day, Stop date: 12/09/16 17:00:00 CDTNotes: (Same as: Xarelto) Administer with food Inactive 11/10/2016 [facility] thiothixene 5 mg oral capsule 5 mg=1 cap, PO, Bedtime, 0 Refill(s) Active 11/09/2016 [facility] zolpidem 10 mg oral tablet 10 mg=1 tab, PO, Bedtime, PRN for sleep, # 14 tab, 0 Refill(s) Active 11/09/2016 [facility] pantoprazole 40 mg intravenous injection 40 mg, PO, Daily, 0 Refill(s) Active 11/09/2016 [facility] digoxin 250 mcg (0.25 mg) oral tablet 0.25 mg, PO, Daily, # 30 tab, 0 Refill(s) Active 11/09/2016 [facility] clonazePAM 1 mg oral tablet 1 mg=1 tab, PO, Bedtime, 0 Refill(s) Active 11/09/2016 [facility] Trazodone Hydrochloride 50 MG Oral Tablet 50 mg=1 tab, PO, Bedtime, # 30 tab, 1 Refill(s) Active 11/09/2016 [facility] Xarelto 20 mg, 1 tab, Route: PO, Drug form: TAB, QPM, Dosing Weight 106.818, kg, Priority: NOW, Start date: 11/09/16 18:02:00 CDT, Duration: 30 day, Stop date: 12/09/16 17:00:00 CDTNotes: (Same as: Xarelto) Administer with food Inactive 11/09/2016 [facility] Insulin Lispro 4 unit, 0.04 mL, Route: SUB-Q, Drug form: SOLN, Bedtime, Dosing Weight 106.818, kg, PRN Blood Glucose Results, Start date: 11/09/16 18:02:00 CDT, Duration: 30 day, Stop date: 12/09/16 18:01:00 CDTNotes: Roll in palms of hands gently; Do not shake `vigorously. (Same as: Humalog ) "Single Patient Use Only " WASTE: F/P - Black; E - Municipal Trash Bin Stable for 28 days at room temperature. Expires in days from Date Inactive 11/09/2016 [facility] Dextrose 50% Syringe 25 gm, 50 mL, Route: IVP, Drug Form: INJ, Dosing Weight 106.818, kg, PRN, PRN Blood Glucose Results, Start date: 11/09/16 18:02:00 CDT, Duration: 30 day, Stop date: 12/09/16 18:01:00 CDT Inactive 11/09/2016 [facility] Glucagon 1 mg, Route: IM, Drug form: PDR/INJ, PRN, Dosing Weight 106.818, kg, PRN Blood Glucose Results, Start date: 11/09/16 18:02:00 CDT, Duration: 30 day, Stop date: 12/09/16 18:01:00 CDT Inactive 11/09/2016 [facility] sodium chloride 0.9% 1000 ml INJ 1,000 mL 1,000 mL, Rate: 150 ml/hr, Infuse over: 6.7 hr, Route: IV, Dosing Weight 106.818 kg, Total Volume: 1,000, Priority: STAT, Start date: 11/09/16 18:01:00 CDT, Duration: 1 doses or times, Stop date: 11/10/16 0:42:00 CDT Inactive 11/09/2016 [facility] Saline Flush 0.9% 10 ml, Route: IVP, Drug Form: INJ, Dosing Weight 106.818, kg, PRN, PRN Line Flush, Start date: 11/09/16 17:59:00 CDT, Duration: 30 day, Stop date: 12/09/16 17:58:00 CDTNotes: (Same as: BD Posiflush) Inactive 11/09/2016 [facility] Milk of Magnesia 30 ml, Route: PO, Drug Form: SUSP, Dosing Weight 106.818, kg, Q6H, PRN Heartburn, Start date: 11/09/16 17:59:00 CDT, Duration: 30 day, Stop date: 12/09/16 17:58:00 CDTNotes: (Same as: Milk of Magnesia, MOM) Inactive 11/09/2016 [facility] Hydralazine 10 mg, 0.5 mL, Route: IV, Drug form: INJ, Q4H, Dosing Weight 106.818, kg, PRN Hypertension, Start date: 11/09/16 17:59:00 CDT, Duration: 30 day, Stop date: 12/09/16 17:58:00 CDT, HTNNotes: (Same as: Apresoline) Push over 5 minutes Inactive 11/09/2016 [facility] Famotidine 20 mg, 2 mL, Route: IVP, Drug form: INJ, Q12H, Dosing Weight 106.818, kg, Priority: NOW, Start date: 11/09/16 17:59:00 CDT, Duration: 30 day, Stop date: 12/09/16 9:00:00 CDTNotes: (Same as: Pepcid) Can be dilute in 5-10cc NS IVP: Slow IV push over at least 2 minutes. Inactive 11/09/2016 [facility] Codeine Phosphate 2 MG/ML / Guaifenesin 60 MG/ML Oral Solution 5 ml, Route: PO, Drug Form: LIQ, Dosing Weight 106.818, kg, Q4H, PRN Cough/Congestion, NOW, Start date: 11/09/16 17:59:00 CDT, Duration: 30 day, Stop date: 12/09/16 17:58:00 CDTNotes: (Same As: Aristeoitussin AC) Inactive 11/09/2016 [facility] Miralax 17 gm, 1 pkt, Route: PO, Drug form: PWDR, Daily, Dosing Weight 106.818, kg, PRN Constipation, Priority: Within 4 hours, Start date: 11/09/16 17:59:00 CDT, Duration: 30 day, Stop date: 12/09/16 17:58:00 CDTNotes: Dissolve in 8 oz of water or juice. (Same as: Miralax) Inactive 11/09/2016 [facility] Albuterol 0.833 MG/ML / Ipratropium [place] 0.167 MG/ML Inhalant Solution [DuoNeb] 3 ml, Route: INHALATION, Drug Form: SOLN, Dosing Weight 106.818, kg, Q6H, PRN Respiratory Protocol, Start date: 11/09/16 17:59:00 CDT, Duration: 30 day, Stop date: 12/09/16 17:58:00 CDTNotes: (Same as: Duoneb) Inactive 11/09/2016 [facility] Lovenox 40 mg, Route: SUB-Q, Drug form: INJ, [id number], Dosing Weight 106.818, kg, Priority: NOW, Start date: 11/09/16 17:59:00 CDT, Duration: 30 day, Stop date: 12/08/16 17:59:00 CDT Inactive 11/09/2016 [facility] Ondansetron 4 mg, 2 mL, Route: IVP, Drug form: INJ, Q4H, Dosing Weight 106.818, kg, PRN Nausea & Vomiting, Start date: 11/09/16 17:59:00 CDT, Duration: 30 day, Stop date: 12/09/16 17:58:00 CDTNotes: (Same as: Jelena) MEDICATION WASTE Product Size: 4 mg Product Wasted: ___ mg Inactive 11/09/2016 [facility] Acetaminophen 325 MG / Hydrocodone Bitartrate 5 MG Oral Tablet 1 tab, Route: PO, Drug Form: TAB, Dosing Weight 106.818, kg, Q4H, PRN Pain Score 4-6, Start date: 11/09/16 17:59:00 CDT, Duration: 30 day, Stop date: 12/09/16 17:58:00 CDTNotes: (Same as: [place] 325/5) Do not exceed 4gm/day of acetaminophen. Inactive 11/09/2016 [facility] Acetaminophen 650 mg, 2 tab, Route: PO, Drug form: TAB, Q4H, Dosing Weight 106.818, kg, PRN Pain 1-3/Temp > 100.4 F, Start date: 11/09/16 17:59:00 CDT, Duration: 30 day, Stop date: 12/09/16 17:58:00 CDTNotes: Do not exceed 4 gm/day. (Same as: Tylenol) Inactive 11/09/2016 [facility] Morphine 1 mg, 0.25 mL, Route: IVP, Drug form: INJ, Q2H, Dosing Weight 106.818, kg, PRN Pain Score 4-6, Start date: 11/09/16 17:59:00 CDT, Duration: 30 day, Stop date: 12/09/16 17:58:00 CDTNotes: (Same as:MORPhine Sulfate) Inactive 11/09/2016 [facility] Lisinopril 5 mg, 1 tab, Route: PO, Drug form: TAB, Daily, Dosing Weight 106.818, kg, Priority: NOW, Start date: 11/09/16 17:59:00 CDT, Duration: 30 day, Stop date: 12/09/16 9:00:00 CDTNotes: (Same as: Prinivil, Zestril) Inactive 11/09/2016 [facility] Nitroglycerin 0.4 mg, 1 tab, Route: SL, Drug form: TAB, Q5Min, Dosing Weight 106.818, kg, PRN Chest Pain, Start date: 11/09/16 17:59:00 CDT, Duration: 3 doses or times, Stop date: Limited # of timesNotes: (Same as :Nitroquick, Nitrostat) "Do Not Crush" Sublingual tablet Inactive 11/09/2016 [facility] Aspirin 325 MG Enteric Coated Tablet 325 mg, 1 tab, Route: PO, Drug form: ECTAB, Daily, Dosing Weight 106.818, kg, Priority: NOW, Start date: 11/09/16 17:59:00 CDT, Duration: 30 day, Stop date: 12/09/16 9:00:00 CDTNotes: (Do Not Crush) Do not crush or chew. Inactive 11/09/2016 [facility] Sodium Chloride 0.9% (Bolus) IV 1,000 mL, 1000 ml/hr, Infuse Over: 1 hr, Route: IV, 1,000, Drug form: INJ, ONCE, Priority: STAT, Dosing Weight 106.818 kg, Start date: 11/09/16 16:29:00 CDT, Duration: 1 doses or times, Stop date: 11/09/16 16:29:00 CDT Inactive 11/09/2016 [facility] Saline Flush 0.9% 10 mL, Route: IVP, Drug Form: INJ, Dosing Weight 106.818, kg, PRN, PRN Line Flush, Start date: 11/09/16 14:24:00 CDT, Duration: 30 day, Stop date: 12/09/16 14:23:00 CDTNotes: (Same as: BD Posiflush) Inactive 11/09/2016 [facility] Aspirin 324 mg, 4 tab, Route: PO, Drug form: CHEWTAB, ONCE, Dosing Weight 106.818, kg, Priority: STAT, Start date: 11/09/16 14:24:00 CDT, Stop date: 11/09/16 14:24:00 CDTNotes: Take with food. Inactive 11/09/2016 [facility] carvedilol 3.125 mg oral tablet 3.125 mg=1 tab, PO, Q12H, # 60 tab, 0 Refill(s), given to patient Active 09/11/2016 [facility] Levemir 10 unit, 0.1 mL, Route: SUB-Q, Drug form: INJ, Bedtime, Dosing Weight 101.364, kg, Start date: 09/10/16 21:00:00 CDT, Duration: 30 day, Stop date: 10/09/16 21:00:00 CDTNotes: Same as Levemir Do not hold insulin without contacting prescriber WASTE: F/P - Black; E - Municipal Trash Bin "single patient use only" No Longer Active 09/11/2016 [facility] Coreg 3.125 mg, 1 tab, Route: PO, Drug form: TAB, Q12H, Dosing Weight 101.364, kg, Start date: 09/10/16 21:00:00 CDT, Duration: 30 day, Stop date: 10/10/16 9:00:00 CDTNotes: Give with food. (Same As: Coreg) No Longer Active 09/11/2016 [facility] atorvastatin 40 mg, 1 tab, Route: PO, Drug form: TAB, Bedtime, Dosing Weight 101.364, kg, Start date: 09/10/16 21:00:00 CDT, Duration: 30 day, Stop date: 10/09/16 21:00:00 CDTNotes: (Same as: Lipitor) No Longer Active 09/11/2016 [facility] thiothixene 5 mg oral capsule 5 mg=1 cap, PO, Bedtime, # 60 cap, 0 Refill(s) No Longer Active 09/11/2016 [facility] clonazePAM 1 mg oral tablet 1 mg=1 tab, PO, Q12H, PRN Anxiety, # 30 tab, 0 Refill(s) No Longer Active 09/11/2016 [facility] Ambien See Instructions, 15mg PO Bedtime, 0 Refill(s) No Longer Active 09/11/2016 [facility] pantoprazole 40 mg, 1 tab, Route: PO, Drug form: ECTAB, Before Dinner, Dosing Weight 101.364, kg, Start date: 09/10/16 16:30:00 CDT, Duration: 30 day, Stop date: 10/09/16 16:30:00 CDTNotes: Tablet should not be c hewed or crushed. (Same as: Protonix) No Longer Active 09/10/2016 [facility] Fluoxetine 40 mg, 2 cap, Route: PO, Drug form: CAP, Daily, Dosing Weight 101.364, kg, Priority: NOW, Start date: 09/10/16 16:18:00 CDT, Duration: 30 day, Stop date: 10/10/16 9:00:00 CDTNotes: (Same as: Prozac, Sarafem) No Longer Active 09/10/2016 [facility] ARIPiprazole 5 mg, 1 tab, Route: PO, Drug form: TAB, Daily, Dosing Weight 101.364, kg, Priority: NOW, Start date: 09/10/16 16:17:00 CDT, Duration: 30 day, Stop date: 10/10/16 9:00:00 CDTNotes: Non-Formulary Drug. (Same as: Abilify) No Longer Active 09/10/2016 [facility] carvedilol 25 mg oral tablet 25 mg=1 tab, PO, BID, # 60 tab, 0 Refill(s) Inactive 09/10/2016 [facility] rivaroxaban 20 mg oral tablet 20 mg=1 tab, PO, Daily, # 30 tab, 0 Refill(s) Active 09/10/2016 [facility] lisinopril 5 mg oral tablet 5 mg=1 tab, PO, Daily, # 30 tab, 0 Refill(s) Active 09/10/2016 [facility] torsemide 20 mg oral tablet 20 mg=1 tab, PO, Daily, # 30 tab, 0 Refill(s) Active 09/10/2016 [facility] torsemide 20 mg, 1 tab, Route: PO, Drug form: TAB, Daily, Dosing Weight 101.364, kg, Start date: 09/10/16 9:00:00 CDT, Duration: 30 day, Stop date: 10/09/16 9:00:00 CDTNotes: (Same As: Demadex) No Longer Active 09/10/2016 [facility] rivaroxaban 20 mg, 1 tab, Route: PO, Drug form: TAB, Daily, Dosing Weight 101.364, kg, Start date: 09/10/16 9:00:00 CDT, Duration: 30 day, Stop date: 10/09/16 9:00:00 CDTNotes: (Same as: Xarelto) Administer with food No Longer Active 09/10/2016 [facility] Lisinopril 5 mg, 1 tab, Route: PO, Drug form: TAB, Daily, Dosing Weight 101.364, kg, Start date: 09/10/16 9:00:00 CDT, Duration: 30 day, Stop date: 10/09/16 9:00:00 CDTNotes: (Same as: Prinivil, Zestril) No Longer Active 09/10/2016 [facility] Coreg 25 mg, 1 tab, Route: PO, Drug form: TAB, BID, Dosing Weight 101.364, kg, Start date: 09/10/16 9:00:00 CDT, Duration: 30 day, Stop date: 10/09/16 17:00:00 CDTNotes: Give with food. (Same As: Coreg) Inactive 09/10/2016 [facility] aspirin 81 mg tablet, enteric coated 81 mg, 1 tab, Route: PO, Drug form: ECTAB, Daily, Dosing Weight 101.364, kg, Start date: 09/10/16 9:00:00 CDT, Duration: 30 day, Stop date: 10/09/16 9:00:00 CDTNotes: Do not crush or chew. (Same As: Ecotrin) No Longer Active 09/10/2016 [facility] Clonazepam 0.5 mg, 0.5 tab, Route: PO, Drug form: TAB, ONCE, Dosing Weight 101.364, kg, Start date: 09/10/16 1:28:00 CDT, Stop date: 09/10/16 1:28:00 CDTNotes: (Same As: KlonoPIN) Inactive 09/10/2016 [facility] Insulin, Aspart, Human 1 unit, 0.01 mL, Route: SUB-Q, Drug form: SOLN, Bedtime, Dosing Weight 101.364, kg, PRN Blood Glucose Results, Start date: 09/10/16 1:19:00 CDT, Duration: 30 day, Stop date: 10/10/16 1:18:00 CDTNotes: Roll in palms of hands gently; Do not shake vigorously. (Same as: NovoLOG) "single patient use only" WASTE: F/P - Black; E - Municipal Trash Bin Stable for 28 days at room temperature. Expires in days from Date No Longer Active 09/10/2016 [facility] Dextrose 50% Syringe 12.5 gm, 25 mL, Route: IVP, Drug Form: INJ, Dosing Weight 101.364, kg, PRN, PRN Blood Glucose Results, Start date: 09/10/16 1:19:00 CDT, Duration: 30 day, Stop date: 10/10/16 1:18:00 CDT No Longer Active 09/10/2016 [facility] Glucagon 1 mg, Route: IM, Drug form: PDR/INJ, PRN, Dosing Weight 101.364, kg, PRN Blood Glucose Results, Start date: 09/10/16 1:19:00 CDT, Duration: 30 day, Stop date: 10/10/16 1:18:00 CDT No Longer Active 09/10/2016 [facility] insulin detemir 100 UNT/ML Injectable Solution [Levemir] 20 unit, SUB-Q, Bedtime, 0 Refill(s) Inactive 09/10/2016 [facility] Ondansetron 4 mg, 1 tab, Route: PO, Drug form: TAB, Q8H, Dosing Weight 101.364, kg, PRN Nausea & Vomiting, Start date: 09/10/16 1:08:00 CDT, Duration: 30 day, Stop date: 10/10/16 1:07:00 CDTNotes: (Same as: Zofran) No Longer Active 09/10/2016 [facility] Morphine 2 mg, 1 mL, Route: IVP, Drug form: INJ, Q6H, Dosing Weight 101.364, kg, PRN Pain Score 4-6, Start date: 09/10/16 1:08:00 CDT, Duration: 30 day, Stop date: 10/10/16 1:07:00 CDTNotes: (Same as:MORPhine Sulfate) No Longer Active 09/10/2016 [facility] Diphenhydramine 25 mg, 1 cap, Route: PO, Drug form: CAP, Bedtime, Dosing Weight 101.364, kg, PRN Insomnia, Start date: 09/10/16 1:08:00 CDT, Duration: 30 day, Stop date: 10/10/16 1:07:00 CDTNotes: (Same as: Benadryl) No Longer Active 09/10/2016 [facility] Acetaminophen 650 mg, 2 tab, Route: PO, Drug form: TAB, Q4H, Dosing Weight 101.364, kg, PRN Headache 1-3, Start date: 09/10/16 1:08:00 CDT, Duration: 30 day, Stop date: 10/10/16 1:07:00 CDTNotes: Do not exceed 4 g m/day. (Same as: Tylenol) No Longer Active 09/10/2016 [facility] Acetaminophen 325 MG / Hydrocodone Bitartrate 5 MG Oral Tablet 1 tab, Route: PO, Drug Form: TAB, Dosing Weight 101.364, kg, Q4H, PRN Pain Score 4-6, Start date: 09/10/16 1:08:00 CDT, Duration: 30 day, Stop date: 10/10/16 1:07:00 CDTNotes: (Same as: [place] 325/5) Do not exceed 4gm/day of acetaminophen. No Longer Active 09/10/2016 [facility] Fluoxetine 40 mg, PO, Daily, 0 Refill(s) Active 09/10/2016 [facility] Vitamin D3 50,000 intl units oral capsule 50,000 IntlUnit=1 cap, PO, qWeek, # 12 cap, 0 Refill(s) Active 09/10/2016 [facility] thiothixene 5 mg oral capsule 5 mg=1 cap, PO, Bedtime, # 60 cap, 0 Refill(s) Inactive 09/10/2016 [facility] Aspirin 324 mg, 4 tab, Route: PO, Drug form: CHEWTAB, ONCE, Dosing Weight 101.364, kg, Priority: STAT, Start date: 09/09/16 20:38:00 CDT, Stop date: 09/09/16 20:38:00 CDTNotes: Take with food. Inactive 09/10/2016 [facility] Ondansetron 4 mg, 2 mL, Route: IVP, Drug form: INJ, ONCE, Dosing Weight 101.364, kg, Priority: STAT, Start date: 09/09/16 20:38:00 CDT, Stop date: 09/09/16 20:38:00 CDTNotes: (Same as: Zofran) MEDICATION WASTE Product Size: 4 mg Product Wasted: ___ mg Inactive 09/10/2016 [facility] Morphine 4 mg, 1 mL, Route: IVP, Drug form: INJ, ONCE, Dosing Weight 101.364, kg, Priority: STAT, Start date: 09/09/16 20:38:00 CDT, Stop date: 09/09/16 20:38:00 CDTNotes: (Same as:MORPhine Sulfate) Inactive 09/10/2016 [facility] Saline Flush 0.9% 10 mL, Route: IVP, Drug Form: INJ, Dosing Weight 101.364, kg, PRN, PRN Line Flush, Start date: 09/09/16 20:38:00 CDT, Duration: 30 day, Stop date: 10/09/16 20:37:00 CDTNotes: (Same as: BD Posiflush) No Longer Active 09/10/2016 [facility] Clonazepam 1 mg, 1 tab, Route: PO, Drug form: TAB, ONCE, Dosing Weight 102.926, kg, Priority: STAT, Start date: 09/02/16 14:30:00 CDT, Stop date: 09/02/16 14:30:00 CDTNotes: (Same As: KlonoPIN) Inactive 09/02/2016 [facility] Morphine 2 mg, 1 mL, Route: IVP, Drug form: INJ, Q2H, Dosing Weight 102.926, kg, PRN Pain Score 7-10, Start date: 09/02/16 3:05:00 CDT, Duration: 30 day, Stop date: 10/02/16 3:04:00 CDTNotes: (Same as:MORPhine Sulfate) Inactive 09/02/2016 [facility] Insulin, Aspart, Human 2 unit, 0.02 mL, Route: SUB-Q, Drug form: SOLN, Sliding Scale, Dosing Weight 102.926, kg, PRN Blood Glucose Results, Start date: 09/02/16 2:03:00 CDT, Duration: 30 day, Stop date: 10/02/16 2:02:00 CDTNotes: Roll in palms of hands gently; Do not shake vigorously. (Same as: NovoLOG) "single patient use only" WASTE: F/P - Black; E - Municipal Trash Bin Stable for 28 days at room temperature. Expires in days from Date Inactive 09/02/2016 [facility] Glucagon 1 mg, Route: IM, Drug form: PDR/INJ, PRN, Dosing Weight 102.926, kg, PRN Blood Glucose Results, Start date: 09/02/16 2:03:00 CDT, Duration: 30 day, Stop date: 10/02/16 2:02:00 CDT Inactive 09/02/2016 [facility] Dextrose 50% Syringe 25 gm, 50 mL, Route: IVP, Drug Form: INJ, Dosing Weight 102.926, kg, PRN, PRN Blood Glucose Results, Start date: 09/02/16 2:03:00 CDT, Duration: 30 day, Stop date: 10/02/16 2:02:00 CDT Inactive 09/02/2016 [facility] Sodium Chloride 0.9% IV 250 mL, Route: IVPB, Start date: 09/02/16 0:57:00 CDT, Duration: 30 day, Stop date: 10/02/16 0:56:00 CDT, PRN Line Flush Inactive 09/02/2016 [facility] BD Normal Saline Flush 10 mL, Route: IVP, Drug Form: INJ, PRN, PRN Line Flush, Start date: 09/02/16 0:57:00 CDT, Duration: 30 day, Stop date: 10/02/16 0:56:00 CDTNotes: (Same as: BD Posiflush) Inactive 09/02/2016 [facility] Ondansetron 4 mg, 2 mL, Route: IVP, Drug form: INJ, Q6H, Dosing Weight 90.909, kg, PRN Nausea & Vomiting, Start date: 09/02/16 0:55:00 CDT, Duration: 30 day, Stop date: 10/02/16 0:54:00 CDTNotes: (Same as: Zofran) MEDICATION WASTE Product Size: 4 mg Product Wasted: ___ mg Inactive 09/02/2016 [facility] Sodium Chloride 0.154 MEQ/ML Injectable Solution 500 mL, 500 ml/hr, Infuse Over: 1 hr, Route: IV, ONCE, Priority: STAT, Dosing Weight 90.909 kg, Start date: 09/01/16 22:58:00 CDT, Duration: 1 doses or times, Stop date: 09/01/16 22:58:00 CDT Inactive 09/02/2016 [facility] Cardizem 20 mg, Route: IVP, ONCE, Dosing Weight 90.909, kg, Priority: STAT, Start date: 09/01/16 21:59:00 CDT, Stop date: 09/01/16 21:59:00 CDT Inactive 09/02/2016 [facility] Aspirin 325 mg, Route: PO, Drug form: TAB, ONCE, Dosing Weight 90.909, kg, Priority: STAT, Start date: 09/01/16 21:58:00 CDT, Stop date: 09/01/16 21:58:00 CDT Inactive 09/02/2016 [facility] rivaroxaban 20 mg, 1 tab, Route: PO, Drug form: TAB, Daily, Dosing Weight 99, kg, Start date: 07/26/16 9:00:00 CDT, Duration: 30 day, Stop date: 08/24/16 9:00:00 CDTNotes: (Same as: Xarelto) Administer with food Inactive 07/26/2016 [facility] Clonazepam 1 mg, 1 tab, Route: PO, Drug form: TAB, Daily, Dosing Weight 99, kg, Start date: 07/26/16 9:00:00 CDT, Duration: 30 day, Stop date: 08/24/16 9:00:00 CDTNotes: (Same As: KlonoPIN) Inactive 07/26/2016 [facility] ARIPiprazole 5 mg, 1 tab, Route: PO, Drug form: TAB, Daily, Dosing Weight 99, kg, Start date: 07/26/16 9:00:00 CDT, Duration: 30 day, Stop date: 08/24/16 9:00:00 CDTNotes: Non-Formulary Drug. (Same as: Abilify) Inactive 07/26/2016 [facility] Glipizide 10 mg, 1 tab, Route: PO, Drug form: TAB, Before Breakfast, Dosing Weight 99, kg, Start date: 07/26/16 7:30:00 CDT, Duration: 30 day, Stop date: 08/24/16 7:30:00 CDTNotes: (Same as: Glucotrol) 30 min before meals. Inactive 07/26/2016 [facility] Cogentin 1 mg, 1 tab, Route: PO, Drug form: TAB, Bedtime, Dosing Weight 99, kg, Start date: 07/25/16 21:00:00 CDT, Duration: 30 day, Stop date: 08/23/16 21:00:00 CDTNotes: (Same As: Cogentin) No Longer Active 07/26/2016 [facility] Ambien 5 mg, 0.5 tab, Route: PO, Drug form: TAB, Bedtime, Dosing Weight 99, kg, PRN Sleep, Start date: 07/25/16 12:20:00 CDT, Duration: 30 day, Stop date: 08/24/16 12:19:00 CDTNotes: (Same As: Ambien) No Longer Active 07/25/2016 [facility] sodium phosphate 15 mmol, 250 mL, Route: IVPB, Drug form: INJ, ONCE, Dosing Weight 99, kg, PRN Abnormal Lab Result, Priority: NOW, Start date: 07/25/16 11:39:00 CDT Inactive 07/25/2016 [facility] Potassium Chloride 1.33 MEQ/ML Oral Solution 40 mEq, 30 mL, Route: PO, Drug form: LIQ, ONCE, Dosing Weight 99, kg, Priority: NOW, Start date: 07/25/16 11:39:00 CDT, Stop date: 07/25/16 11:39:00 CDTNotes: (Same as: Potassium Chloride) Inactive 07/25/2016 [facility] Coreg 3.125 mg, Route: PO, Drug form: TAB, Daily, Dosing Weight 99, kg, Start date: 07/25/16 9:00:00 CDT, Duration: 30 day, Stop date: 08/23/16 9:00:00 CDT No Longer Active 07/25/2016 [facility] potassium chloride 20 mEq oral tablet, extended release 20 mEq, 1 tab, Route: PO, Drug form: ERTAB, ONCE, Dosing Weight 99, kg, Start date: 07/25/16 7:45:00 CDT, Stop date: 07/25/16 7:45:00 CDTNotes: (Same as: K-Dur 20) "Do Not Crush" With food and full glass of water Inactive 07/25/2016 [facility] atorvastatin 10 mg, 1 tab, Route: PO, Drug form: TAB, Bedtime, Dosing Weight 104.545, kg, Start date: 07/24/16 21:00:00 CDT, Duration: 30 day, Stop date: 08/22/16 21:00:00 CDTNotes: (Same As: Lipitor) Inactive 07/25/2016 [facility] atorvastatin 10 mg, PO, Daily, 0 Refill(s) Active 07/24/2016 [facility] rivaroxaban 20 mg, PO, Daily, 0 Refill(s) Active 07/24/2016 [facility] Lisinopril 5 mg, PO, Daily, 0 Refill(s) Active 07/24/2016 [facility] pantoprazole 40 mg, PO, Daily, # 30 tab, 0 Refill(s) Active 07/24/2016 [facility] ARIPiprazole 5 mg, PO, Daily, 0 Refill(s) Active 07/24/2016 [facility] Glipizide 10 mg, PO, Daily, 0 Refill(s) Active 07/24/2016 [facility] Clonazepam 1 mg, PO, Daily, 0 Refill(s) Active 07/24/2016 [facility] Metolazone 2.5 mg, PO, qWeek, # 15 tab, 0 Refill(s) Active 07/24/2016 [facility] Metformin 500 mg, PO, Daily, 0 Refill(s) Active 07/24/2016 [facility] torsemide 20 mg, PO, Daily, # 20 tab, 0 Refill(s) Active 07/24/2016 [facility] Glipizide 5 MG Oral Tablet 5 mg, 1 tab, Route: PO, Drug form: TAB, Daily, Dosing Weight 99, kg, Priority: NOW, Start date: 07/24/16 12:21:00 CDT, Duration: 30 day, Stop date: 08/23/16 9:00:00 CDTNotes: (Same as: Glucotrol) 30 min before meals. No Longer Active 07/24/2016 [facility] Metformin hydrochloride 500 MG Oral Tablet 500 mg, Route: PO, Drug form: TAB, BID, Dosing Weight 99, kg, Priority: NOW, Start date: 07/24/16 12:21:00 CDT, Duration: 30 day, Stop date: 08/23/16 9:00:00 CDT Inactive 07/24/2016 [facility] Sodium Bicarbonate 650 MG Oral Tablet 650 mg, 1 tab, Route: PO, Drug form: TAB, TID, Dosing Weight 99, kg, Priority: NOW, Start date: 07/24/16 11:29:00 CDT, Duration: 2 day, Stop date: 07/26/16 9:00:00 CDTNotes: "Dissolve tablet in a glass of water prior to oral administration. STOMACH WARNING: To avoid serious injury, do not take until tablet is completely dissolved. It is very important not to take this product when overly full from food or drink." No Longer Active 07/24/2016 [facility] Potassium Chloride 1.33 MEQ/ML Oral Solution 40 mEq, 30 mL, Route: PO, Drug form: LIQ, ONCE, Dosing Weight 99, kg, Start date: 07/24/16 11:28:00 CDT, Stop date: 07/24/16 11:28:00 CDT Inactive 07/24/2016 [facility] potassium chloride 20 mEq, 1 tab, Route: PO, Drug form: ERTAB, ONCE, Dosing Weight 99, kg, Start date: 07/24/16 10:44:00 CDT, Stop date: 07/24/16 10:44:00 CDTNotes: (Same as: K-Dur 20) "Do Not Crush" With food and full glass of water Inactive 07/24/2016 [facility] heparin 5,000 unit, 1 mL, Route: SUB-Q, Drug form: INJ, Q12H, Dosing Weight 104.545, kg, Start date: 07/24/16 9:00:00 CDT, Duration: 30 day, Stop date: 08/22/16 21:00:00 CDTNotes: porcine heparin No Longer Active 07/24/2016 [facility] Saline Flush 0.9% 10 ml, Route: IVP, Drug Form: INJ, Dosing Weight 104.545, kg, Q12H, Start date: 07/24/16 9:00:00 CDT, Duration: 30 day, Stop date: 08/22/16 21:00:00 CDTNotes: (Same as: BD Posiflush) No Longer Active 07/24/2016 [facility] Amiodarone 200 mg, 1 tab, Route: PO, Drug form: TAB, Q12H, Dosing Weight 104.545, kg, Start date: 07/24/16 9:00:00 CDT, Duration: 30 day, Stop date: 08/22/16 21:00:00 CDTNotes: (Same as: Cordarone) No Longer Active 07/24/2016 [facility] Aspirin 325 MG Enteric Coated Tablet 325 mg, 1 tab, Route: PO, Drug form: ECTAB, Daily, Dosing Weight 104.545, kg, Start date: 07/24/16 9:00:00 CDT, Duration: 30 day, Stop date: 08/22/16 9:00:00 CDTNotes: (Do Not Crush) Do not crush or chew. No Longer Active 07/24/2016 [facility] pantoprazole 40 mg, Route: IVP, Drug form: INJ, Before Dinner, Dosing Weight 104.545, kg, Start date: 07/24/16 0:12:00 CDT, Duration: 30 day, Stop date: 08/22/16 16:30:00 CDTNotes: For IV push reconstitute with 10 ml 0.9% sodium chloride and push over 2 minutes. (Same as: Protonix) No Longer Active 07/24/2016 [facility] Sodium Chloride 0.154 MEQ/ML Injectable Solution 1,000 mL, 1,000 ml/hr, Infuse Over: 1 hr, Route: IV, ONCE, Priority: STAT, Dosing Weight 104.545 kg, Start date: 07/24/16 0:05:00 CDT, Duration: 1 doses or times, Stop date: 07/24/16 0:05:00 CDT Inactive 07/24/2016 [facility] Insulin, Aspart, Human 6 unit, 0.06 mL, Route: SUB-Q, Drug form: SOLN, TID-Before Meals, Dosing Weight 104.545, kg, PRN Blood Glucose Results, Start date: 07/24/16 0:05:00 CDT, Duration: 30 day, Stop date: 08/23/16 0:04:00 CDTNotes: Roll in palms of hands gently; Do not shake vigorously. (Same as: NovoLOG) "single patient use only" WASTE: F/P - Black; E - Municipal Trash Bin Stable for 28 days at room temperature. Expires in days from Date No Longer Active 07/24/2016 [facility] Dextrose 50% Syringe 12.5 gm, 25 mL, Route: IVP, Drug Form: INJ, Dosing Weight 104.545, kg, PRN, PRN Blood Glucose Results, Start date: 07/24/16 0:05:00 CDT, Duration: 30 day, Stop date: 08/23/16 0:04:00 CDT No Longer Active 07/24/2016 [facility] Glucagon 1 mg, Route: IM, Drug form: PDR/INJ, PRN, Dosing Weight 104.545, kg, PRN Blood Glucose Results, Start date: 07/24/16 0:05:00 CDT, Duration: 30 day, Stop date: 08/23/16 0:04:00 CDT No Longer Active 07/24/2016 [facility] Albuterol 0.833 MG/ML / Ipratropium [place] 0.167 MG/ML Inhalant Solution [DuoNeb] 3 mL, Route: NEB, Drug Form: SOLN, Dosing Weight 104.545, kg, RQID, PRN Shortness of breath, Start date: 07/24/16 0:03:00 CDT, Duration: 30 day, Stop date: 08/23/16 0:02:00 CDTNotes: (Same as: Duoneb) No Longer Active 07/24/2016 [facility] Hydralazine 20 mg, 1 mL, Route: IVP, Drug form: INJ, Q4H, Dosing Weight 104.545, kg, PRN See Nurse's Notes, Start date: 07/24/16 0:03:00 CDT, Duration: 30 day, Stop date: 08/23/16 0:02:00 CDT, systolic > 160Notes: (Same as: Apresoline) Push over 5 minutes No Longer Active 07/24/2016 [facility] Trazodone 50 mg, 1 tab, Route: PO, Drug form: TAB, Bedtime, Dosing Weight 104.545, kg, PRN Insomnia, Start date: 07/24/16 0:03:00 CDT, Duration: 30 day, Stop date: 08/23/16 0:02:00 CDTNotes: (Same As: Desyrel) No Longer Active 07/24/2016 [facility] Tylenol 650 mg, 2 tab, Route: PO, Drug form: TAB, Q6H, Dosing Weight 104.545, kg, PRN See Nurse's Notes, Start date: 07/24/16 0:03:00 CDT, Duration: 30 day, Stop date: 08/23/16 0:02:00 CDT, Pain 1-3/Temp > 100.4 F, headacheNotes: Do not exceed 4 gm/day. (Same as: Tylenol) No Longer Active 07/24/2016 [facility] Docusate Sodium 100 MG Oral Capsule [Colace] 100 mg, 1 cap, Route: PO, Drug form: CAP, BID, Dosing Weight 104.545, kg, PRN Constipation, Start date: 07/24/16 0:03:00 CDT, Duration: 30 day, Stop date: 08/23/16 0:02:00 CDTNotes: (Same as: Colace) (Do Not Crush) No Longer Active 07/24/2016 [facility] Guaifenesin 20 MG/ML Oral Solution [Robitussin] 100 mg, 5 mL, Route: PO, Drug form: SYRP, Q4H, Dosing Weight 104.545, kg, PRN See Nurse's Notes, Start date: 07/24/16 0:03:00 CDT, Duration: 30 day, Stop date: 08/23/16 0:02:00 CDT, as needed for congestion, coughNotes: (Same as: Robitussin) No Longer Active 07/24/2016 [facility] Saline Flush 0.9% 10 ml, Route: IVP, Drug Form: INJ, Dosing Weight 104.545, kg, PRN, PRN Line Flush, Start date: 07/24/16 0:03:00 CDT, Duration: 30 day, Stop date: 08/23/16 0:02:00 CDT Inactive 07/24/2016 [facility] Ondansetron 4 mg, 1 tab, Route: PO, Drug form: TAB, Q8H, Dosing Weight 104.545, kg, PRN Nausea & Vomiting, Start date: 07/24/16 0:03:00 CDT, Duration: 30 day, Stop date: 08/23/16 0:02:00 CDTNotes: (Same as: Zofran) No Longer Active 07/24/2016 [facility] Morphine 2 mg, 1 mL, Route: IVP, Drug form: INJ, Q15Min, Dosing Weight 104.545, kg, PRN Chest Pain, Start date: 07/24/16 0:03:00 CDT, Duration: 2 doses or times, Stop date: Limited # of timesNotes: (Same as:M ORPhine Sulfate) No Longer Active 07/24/2016 [facility] Amiodarone 150 mg, Route: IVPB, ONCE, Dosing Weight 104.545, kg, Start date: 07/24/16 0:03:00 CDT, Stop date: 07/24/16 0:03:00 CDT Inactive 07/24/2016 [facility] Acetaminophen 325 MG / Hydrocodone Bitartrate 5 MG Oral Tablet 2 tab, Route: PO, Drug Form: TAB, Dosing Weight 104.545, kg, Q6H, PRN Pain Score 4-6, Start date: 07/24/16 0:03:00 CDT, Duration: 30 day, Stop date: 08/23/16 0:02:00 CDTNotes: (Same as: [place] 325/5) Do not exceed 4gm/day of acetaminophen. No Longer Active 07/24/2016 [facility] Diltiazem 30 mg, 1 tab, Route: PO, Drug form: TAB, Q6H, Dosing Weight 104.545, kg, Priority: STAT, Start date: 07/24/16 0:03:00 CDT, Duration: 30 day, Stop date: 08/23/16 0:00:00 CDTNotes: (Same as: Cardizem) Before meals Inactive 07/24/2016 [facility] Sodium Chloride 0.154 MEQ/ML Injectable Solution 1,000 mL, Rate: 60 ml/hr, Infuse over: 16.7 hr, Route: IV, Dosing Weight 104.545 kg, Total Volume: 1,000, Start date: 07/24/16 0:03:00 CDT, Stop date: 08/23/16 0:02:00 CDT No Longer Active 07/24/2016 [facility] Aspirin 324 mg, 4 tab, Route: CHEW, Drug form: CHEWTAB, ONCE, Dosing Weight 104.545, kg, Priority: STAT, Start date: 07/23/16 23:08:00 CDT, Stop date: 07/23/16 23:08:00 CDTNotes: Take with food. Inactive 07/24/2016 [facility] Insulin regular 4 unit, 0.04 mL, Route: IVP, Drug form: SOLN, ONCE, Dosing Weight 104.545, kg, Priority: STAT, Start date: 07/23/16 22:47:00 CDT, Stop date: 07/23/16 22:47:00 CDTNotes: (Same as: Humulin R) Roll in palms of hands gently; Do not shake vigorously. "single patient use only" (Restricted to patients requiring a dose > 60 units) WASTE: F/P - Black; E - Municipal Trash Bin Stable for 28 days at room temperature Expires in days from Date Inactive 07/24/2016 [facility] Diltiazem 10 mg, 2 mL, Route: IVP, Drug form: INJ, ONCE, Dosing Weight 104.545, kg, Priority: STAT, Start date: 07/23/16 22:34:00 CDT, Stop date: 07/23/16 22:34:00 CDTNotes: (Same as: Cardizem) Inactive 07/24/2016 [facility] Sodium Chloride 0.9% IV 250 mL, Route: IVPB, Start date: 07/23/16 21:20:00 CDT, Duration: 30 day, Stop date: 08/22/16 21:19:00 CDT, PRN Line Flush No Longer Active 07/24/2016 [facility] BD Normal Saline Flush 10 mL, Route: IVP, Drug Form: INJ, PRN, PRN Line Flush, Start date: 07/23/16 21:20:00 CDT, Duration: 30 day, Stop date: 08/22/16 21:19:00 CDTNotes: (Same as: BD Posiflush) No Longer Active 07/24/2016 [facility] Saline Flush 0.9% 10 mL, Route: IVP, Drug Form: INJ, Dosing Weight 104.545, kg, PRN, PRN Line Flush, Start date: 07/23/16 21:15:00 CDT, Duration: 30 day, Stop date: 08/22/16 21:14:00 CDT Inactive 07/24/2016 [facility] Loratadine 10 MG Oral Tablet [Claritin] 10 mg=1 tab, PO, Daily, X 7 day, # 7 tab, 0 Refill(s) Active 06/23/2016 [facility] Furosemide 40 mg, 4 mL, Route: IVP, Drug form: INJ, ONCE, Dosing Weight 104.545, kg, Priority: STAT, Start date: 06/23/16 1:03:00 CDT, Stop date: 06/23/16 1:03:00 CDTNotes: (Same as: Lasix) MEDICATION WASTE Product Size: 40 mg Product Wasted: ___ mg Inactive 06/23/2016 [facility] Benadryl 12.5 mg, 0.25 mL, Route: IVP, Drug form: INJ, ONCE, Dosing Weight 104.545, kg, Priority: STAT, Start date: 06/23/16 0:09:00 CDT, Stop date: 06/23/16 0:09:00 CDTNotes: (Same as: Benadryl) Inactive 06/23/2016 [facility] Trazodone Hydrochloride 50 MG Oral Tablet 50 mg, 1 tab, Route: PO, Drug form: TAB, Bedtime, Dosing Weight 95.455, kg, Start date: 10/13/15 21:00:00 CDT, Duration: 30 day, Stop date: 11/11/15 21:00:00 CDTNotes: (Same As: Desyrel) Inactive 10/14/2015 [facility] Cogentin 1 mg, 1 tab, Route: PO, Drug form: TAB, Bedtime, Dosing Weight 95.455, kg, Start date: 10/13/15 21:00:00 CDT, Duration: 30 day, Stop date: 11/11/15 21:00:00 CDTNotes: (Same As: Cogentin) Inactive 10/14/2015 [facility] Lipitor 40 mg, 1 tab, Route: PO, Drug form: TAB, Bedtime, Dosing Weight 95.455, kg, Start date: 10/13/15 21:00:00 CDT, Duration: 30 day, Stop date: 11/11/15 21:00:00 CDTNotes: (Same as: Lipitor) Inactive 10/14/2015 [facility] Abilify 10 mg, 1 tab, Route: PO, Drug form: TAB, Bedtime, Dosing Weight 95.455, kg, Start date: 10/13/15 21:00:00 CDT, Duration: 30 day, Stop date: 11/11/15 21:00:00 CDTNotes: Non-Formulary Drug. (Same as: Abilify) Inactive 10/14/2015 [facility] Geodon 20 mg, 1 cap, Route: PO, Drug form: CAP, QPM, Dosing Weight 95.455, kg, Start date: 10/13/15 17:00:00 CDT, Duration: 30 day, Stop date: 11/11/15 17:00:00 CDTNotes: (Same As: Geodon) Give with Food Inactive 10/13/2015 [facility] insulin detemir 10 unit, 0.1 mL, Route: SUB-Q, Drug form: INJ, Q12H, Dosing Weight 95.455, kg, Start date: 10/13/15 9:00:00 CDT, Duration: 30 day, Stop date: 11/11/15 21:00:00 CDTNotes: Same as Levemir Do not hold insulin without contacting prescriber WASTE: F/P - Black; E - Municipal Trash Bin "single patient use only" Inactive 10/13/2015 [facility] Saline Flush 0.9% 10 ml, Route: IVP, Drug Form: INJ, Dosing Weight 95.455, kg, Q12H, Start date: 10/13/15 9:00:00 CDT, Duration: 30 day, Stop date: 11/11/15 21:00:00 CDT No Longer Active 10/13/2015 [facility] isosorbide mononitrate extended release 30 mg, 1 tab, Route: PO, Drug form: ERTAB, Daily, Dosing Weight 95.455, kg, Start date: 10/13/15 9:00:00 CDT, Duration: 30 day, Stop date: 11/11/15 9:00:00 CDTNotes: (Same as:Imdur) "Do Not Crush" Take on empty stomach/ full glass of water. Do not crush Inactive 10/13/2015 [facility] Aspirin 81 MG Enteric Coated Tablet 81 mg, 1 tab, Route: PO, Drug form: ECTAB, Daily, Dosing Weight 95.455, kg, Start date: 10/13/15 9:00:00 CDT, Duration: 30 day, Stop date: 11/11/15 9:00:00 CDTNotes: Do not crush or chew. (Same As: Ecotrin) Inactive 10/13/2015 [facility] Lisinopril 5 mg, Route: PO, Drug form: TAB, Daily, Dosing Weight 95.455, kg, Start date: 10/13/15 9:00:00 CDT, Duration: 30 day, Stop date: 11/11/15 9:00:00 CDT No Longer Active 10/13/2015 [facility] carvedilol 3.125 mg, Route: PO, Drug form: TAB, Q12H, Dosing Weight 95.455, kg, Start date: 10/13/15 9:00:00 CDT, Duration: 30 day, Stop date: 11/11/15 21:00:00 CDT No Longer Active 10/13/2015 [facility] Sucralfate 1 gm, 1 tab, Route: PO, Drug form: TAB, BID, Dosing Weight 95.455, kg, Start date: 10/13/15 9:00:00 CDT, Duration: 30 day, Stop date: 11/11/15 17:00:00 CDTNotes: May interfere w/enteral feeds - Take 1 hr before or 2 hr after antacids, dairy pdt, meals & minerals - On empty stomach. (Same As: Carafate) Inactive 10/13/2015 [facility] Coreg 25 mg, 1 tab, Route: PO, Drug form: TAB, BID-Meals, Dosing Weight 95.455, kg, Start date: 10/13/15 8:00:00 CDT, Duration: 30 day, Stop date: 11/11/15 17:00:00 CDTNotes: Give with food. (Same As: Coreg) Inactive 10/13/2015 [facility] Sodium Chloride 0.9% IV 250 mL, Route: IVPB, Start date: 10/12/15 22:25:00 CDT, Duration: 30 day, Stop date: 11/11/15 22:24:00 CDT, PRN Line Flush No Longer Active 10/13/2015 [facility] BD Normal Saline Flush 10 mL, Route: IVP, Drug Form: INJ, PRN, PRN Line Flush, Start date: 10/12/15 22:24:00 CDT, Duration: 30 day, Stop date: 11/11/15 22:23:00 CDTNotes: (Same as: BD Posiflush) No Longer Active 10/13/2015 [facility] Ambien 5 mg, 0.5 tab, Route: PO, Drug form: TAB, Bedtime, Dosing Weight 95.455, kg, PRN Sleep, Start date: 10/12/15 21:53:00 CDT, Duration: 30 day, Stop date: 11/11/15 21:52:00 CDTNotes: (Same As: Ambien) No Longer Active 10/13/2015 [facility] Insulin, Aspart, Human 10 unit, 0.1 mL, Route: SUB-Q, Drug form: SOLN, TID-Before Meals, Dosing Weight 95.455, kg, PRN Blood Glucose Results, Start date: 10/12/15 21:52:00 CDT, Duration: 30 day, Stop date: 11/11/15 21:51:00 CDTNotes: Roll in palms of hands gently; Do not shake vigorously. (Same as: NovoLOG) "single patient use only" WASTE: F/P - Black; E - Municipal Trash Bin Stable for 28 days at room temperature. Expires in days from Date No Longer Active 10/13/2015 [facility] Glucagon 1 mg, Route: IM, Drug form: PDR/INJ, PRN, Dosing Weight 95.455, kg, PRN Blood Glucose Results, Start date: 10/12/15 21:52:00 CDT, Duration: 30 day, Stop date: 11/11/15 21:51:00 CDT No Longer Active 10/13/2015 [facility] Dextrose 50% Syringe 25 gm, 50 mL, Route: IVP, Drug Form: INJ, Dosing Weight 95.455, kg, PRN, PRN Blood Glucose Results, Start date: 10/12/15 21:52:00 CDT, Duration: 30 day, Stop date: 11/11/15 21:51:00 CDT No Longer Active 10/13/2015 [facility] Codeine Phosphate 2 MG/ML / Guaifenesin 20 MG/ML Oral Solution 10 mL, Route: PO, Drug Form: LIQ, Dosing Weight 95.455, kg, Q4H, PRN Cough, Start date: 10/12/15 21:51:00 CDT, Duration: 30 day, Stop date: 11/11/15 21:50:00 CDTNotes: (Same As: Robitussin AC) No Longer Active 10/13/2015 [facility] Acetaminophen 650 mg, 2 tab, Route: PO, Drug form: TAB, Q4H, Dosing Weight 95.455, kg, PRN For Temp > 100.4 F, Start date: 10/12/15 21:51:00 CDT, Duration: 30 day, Stop date: 11/11/15 21:50:00 CDTNotes: Do not exceed 4 gm/day. (Same as: Tylenol) No Longer Active 10/13/2015 [facility] Tessalon Perles 100 mg, 1 cap, Route: PO, Drug form: CAP, Q8H, Dosing Weight 95.455, kg, PRN Cough, Start date: 10/12/15 21:51:00 CDT, Duration: 30 day, Stop date: 11/11/15 21:50:00 CDTNotes: (Same As: Tessalon Richa es) "Do Not Crush" No Longer Active 10/13/2015 [facility] Diphenhydramine 25 mg, 1 cap, Route: PO, Drug form: CAP, Q6H, Dosing Weight 95.455, kg, PRN Itching, Start date: 10/12/15 21:51:00 CDT, Duration: 30 day, Stop date: 11/11/15 21:50:00 CDTNotes: (Same as: Benadryl) No Longer Active 10/13/2015 [facility] Bisacodyl 10 mg, 1 supp, Route: RI, Drug form: SUPP, Daily, Dosing Weight 95.455, kg, PRN Constipation, Start date: 10/12/15 21:51:00 CDT, Duration: 30 day, Stop date: 11/11/15 21:50:00 CDTNotes: (Same As: Dulcolax, Bisco-Lax) No Longer Active 10/13/2015 [facility] Simethicone 80 mg, 1 tab, Route: CHEW, Drug form: CHEWTAB, Q6H, Dosing Weight 95.455, kg, PRN Gas, Start date: 10/12/15 21:51:00 CDT, Duration: 2 doses or times, Stop date: Limited # of timesNotes: (Same as: Myl icon) No Longer Active 10/13/2015 [facility] dextromethorphan-guaiFENesin 10 mg-100 mg/5 mL oral liquid 10 mL, Route: PO, Drug Form: SYRP, Dosing Weight 95.455, kg, Q4H, PRN Cough, Start date: 10/12/15 21:51:00 CDT, Duration: 30 day, Stop date: 11/11/15 21:50:00 CDTNotes: (dextromethorphan-guaifenesin 10-100mg/5ml 10 ml oral SOLN ud) (Same as: Robitussin DM) No Longer Active 10/13/2015 [facility] Ondansetron 4 mg, 2 mL, Route: IVP, Drug form: INJ, Q8H, Dosing Weight 95.455, kg, PRN Nausea & Vomiting, Start date: 10/12/15 21:51:00 CDT, Duration: 30 day, Stop date: 11/11/15 21:50:00 CDTNotes: (Same as: Zofran) MEDICATION WASTE Product Size: 4 mg Product Wasted: ___ mg No Longer Active 10/13/2015 [facility] Temazepam 15 mg, 1 cap, Route: PO, Drug form: CAP, Bedtime, Dosing Weight 95.455, kg, PRN Insomnia, Start date: 10/12/15 21:51:00 CDT, Duration: 30 day, Stop date: 11/11/15 21:50:00 CDTNotes: (Same As: Restoril) No Longer Active 10/13/2015 [facility] Saline Flush 0.9% 10 ml, Route: IVP, Drug Form: INJ, Dosing Weight 95.455, kg, PRN, PRN Line Flush, Start date: 10/12/15 21:51:00 CDT, Duration: 30 day, Stop date: 11/11/15 21:50:00 CDTNotes: (Same as: BD Posiflush) Inactive 10/13/2015 [facility] Nitroglycerin 0.4 mg, 1 tab, Route: SL, Drug form: TAB, Q5Min, Dosing Weight 95.455, kg, PRN Chest Pain, Start date: 10/12/15 21:51:00 CDT, Duration: 3 doses or times, Stop date: Limited # of timesNotes: (Same as: Nitroquick, Nitrostat) "Do Not Crush" Sublingual tablet No Longer Active 10/13/2015 [facility] Nitroglycerin 0.02 MG/MG Topical Ointment 0.5 inch, Route: TOP, Drug Form: OINT, Dosing Weight 95.455, kg, TID, PRN Chest Pain, Start date: 10/12/15 21:51:00 CDT, Duration: 30 day, Stop date: 11/11/15 21:50:00 CDTNotes: 1 gram is approximately 1 inch of nitroglycerin ointment (20 mg NTG per gram) (Same as:Nitro-Bid) No Longer Active 10/13/2015 [facility] aripiprazole 10 MG Oral Tablet [Abilify] 10 mg=1 tab, PO, Bedtime, 0 Refill(s) Active 10/13/2015 [facility] Calcium Carbonate 1,000 mg, 2 tab, Route: CHEW, Drug form: CHEWTAB, ONCE, Dosing Weight 95.455, kg, Priority: STAT, Start date: 10/12/15 20:12:00 CDT, Stop date: 10/12/15 20:12:00 CDTNotes: (Same As: [place]) Calcium Car bonate 500 [id number] mg elemental calcium Dose= mg calcium carbonate ( mg elemental calcium) Inactive 10/13/2015 [facility] potassium chloride 40 mEq, Route: PO, Drug form: ERTAB, ONCE, Dosing Weight 95.455, kg, Priority: STAT, Start date: 10/12/15 18:59:00 CDT, Stop date: 10/12/15 18:59:00 CDT Inactive 10/12/2015 [facility] Nitroglycerin 0.02 MG/MG Topical Ointment 0.5 inch, Route: TOP, Drug Form: OINT, Dosing Weight 95.455, kg, ONCE, STAT, Start date: 10/12/15 18:16:00 CDT, Stop date: 10/12/15 18:16:00 CDTNotes: 1 gram is approximately 1 inch of nitroglycerin ointment (20 mg NTG per gram) (Same as:Nitro-Bid) Inactive 10/12/2015 [facility] Saline Flush 0.9% 10 mL, Route: IVP, Drug Form: INJ, Dosing Weight 95.455, kg, PRN, PRN Line Flush, Start date: 10/12/15 18:16:00 CDT, Duration: 30 day, Stop date: 11/11/15 18:15:00 CDTNotes: (Same as: BD Posiflush) Inactive 10/12/2015 [facility] tramadol 50 mg oral tablet 50 mg=1 tab, PO, Q6H, Pain, # 40 tab, 0 Refill(s) Active Rubi 05/10/2013 [facility] [place] ondansetron 4 mg oral disintegrating strip 4 mg=1 ea, PO, Q8H, # 10 tab, 0 Refill(s) Active Rubi 05/10/2013 [facility] [place] Lasix 40 mg, 4 mL, Route: IVP, Drug form: INJ, ONCE, Dosing Weight 106.818, kg, Priority: STAT, Start date: 05/10/13 8:17:00, Stop date: 05/10/13 8:17:00(Same as: Lasix) Inactive Rubi 05/10/2013 [facility] [place] aspirin 324 mg, 4 tab, Route: PO, Drug form: CHEWTAB, ONCE, Dosing Weight 106.818, kg, Priority: STAT, Start date: 05/10/13 4:32:00, Stop date: 05/10/13 4:32:00Take with food. Inactive Rubi 05/10/2013 [facility] [place] Saline Flush 0.9% 5 mL, Route: IVP, Drug Form: INJ, Dosing Weight 106.818, kg, Q8H, PRN Line Flush, Start date: 05/10/13 4:32:00, Duration: 30 day, Stop date: 06/09/13 4:31:00, Administer at least once every 8 hoursAdminister at least once every 8 hours(Same as: BD Posiflush) Inactive Rubi 05/10/2013 [facility] [place] ondansetron 4 mg, 2 mL, Route: IVP, Drug form: INJ, ONCE, Dosing Weight 106.818, kg, Priority: STAT, Start date: 05/10/13 4:32:00, Stop date: 05/10/13 4:32:00(Same as: Zofran) Inactive Rubi 05/10/2013 [facility] [place] Maalox Advanced Maximum Strength oral suspension 30 mL, PO, QID-Before Meals, # 500 mL, 0 Refill(s) Active Holley 05/07/2013 [facility] [place] omeprazole 20 mg oral delayed release capsule 20 mg=1 cap, PO, Daily, # 30 cap, 0 Refill(s) Active Holley 05/07/2013 [facility] [place] Zofran ODT 4 mg oral tablet, disintegrating 4 mg=1 tab, PO, BID, Nausea and Vomiting, Dissolve tab under tongue, # 10 tab, 0 Refill(s)Dissolve tab under tongue Active Holley 05/07/2013 [facility] [place] GI cocktail 30 mL, Route: PO, Drug Form: SUSP, Dosing Weight 104.545, kg, ONCE, STAT, Start date: 05/07/13 10:50:00, Stop date: 05/07/13 10:50:00G.I. Cocktail=antacid with simethicone 22.5 mL - lidocaine viscous 7.5 mL Inactive Holley 05/07/2013 [facility] [place] Kayexalate 30 gm, 120 mL, Route: PO, Drug form: SUSP, ONCE, Dosing Weight 104.545, kg, Priority: STAT, Start date: 05/07/13 10:46:00, Stop date: 05/07/13 10:46:00(sodium polystyrene sulfonate 15 gm/60 ml DICK) Shake well before use. (Same as: Kayexalate, SPS) Inactive Holley 05/07/2013 [facility] [place] ondansetron 4 mg, 2 mL, Route: IVP, Drug form: INJ, ONCE, Dosing Weight 104.545, kg, Priority: STAT, Start date: 05/07/13 9:53:00, Stop date: 05/07/13 9:53:00(Same as: Zofran) Inactive Holley 05/07/2013 [facility] [place] aspirin 325 mg tablet 325 mg, 1 tab, Route: PO, Drug form: TAB, ONCE, Dosing Weight 104.545, kg, Priority: STAT, Start date: 05/07/13 9:53:00, Stop date: 05/07/13 9:53:00Take with food. [place] [facility] [place] [facility] [place] Sodium Chloride 0.9% (Bolus) IV 500 mL 500 mL, Rate: 500 ml/hr, Infuse over: 1 hr, Route: IV, Dosing Weight 104.545 kg, Total Volume: 500, Priority: STAT, Start date: 05/07/13 9:53:00, Duration: 1 doses or times, Stop date: 05/07/13 10:52:00 [place] [facility] [place]2013 [facility] [place] Saline Flush 0.9% 5 ml, Route: IVP, Drug Form: INJ, Dosing Weight 104.545, kg, PRN, PRN Line Flush, Start date: 05/07/13 9:53:00, Duration: 30 day, Stop date: 06/06/13 10:52:00(Same as: BD Posiflush) [place] [facility] [place]2013 [facility] [place] Protonix + sodium chloride 10 mL 40 mg, Route: IVP, ONCE, Dosing Weight 104.545, kg, Priority: STAT, Start date: 05/07/13 9:53:00, Stop date: 05/07/13 9:53:00For IV push reconstitute with 10 ml 0.9% sodium chloride and push over 2 minutes. (Same as: Protonix) [place] [facility] [place]2013 [facility] [place] ranitidine 150 mg oral tablet 150 mg=1 tab, PO, BID, # 60 tab, 0 Refill(s) Active Dudley 04/25/2013 [facility] Ultram 50 mg oral tablet 50 mg=1 tab, PO, Q4H, pain, # 20 tab, 0 Refill(s) Inactive [place] 04/25/2013 [facility] Zofran ODT 4 mg oral tablet, disintegrating 4 mg=1 tab, PO, TID, as needed for nausea/vomiting, Dissolve tab under tongue, # 10 tab, 0 Refill(s)Dissolve tab under tongue Active Dudley 04/25/2013 [facility] morphine Sulfate 2 mg, 1 mL, Route: IVP, Drug form: INJ, ONCE, Dosing Weight 111.364, kg, Priority: STAT, Start date: 04/25/13 10:45:00, Stop date: 04/25/13 10:45:00(Same as:MORPhine Sulfate) Inactive [place] 04/25/2013 [facility] Sodium Chloride 0.9% (Bolus) IV 250 mL 250 mL, Rate: 1,000 ml/hr, Infuse over: 15 minutes, Route: IV, Dosing Weight 111.364 kg, Total Volume: 250, Priority: STAT, Start date: 04/25/13 9:23:00, Duration: 1 doses or times, Stop date: 04/25/13 9:37:00 Inactive [place] 04/25/2013 [facility] Saline Flush 0.9% 5 mL, Route: IVP, Drug Form: INJ, Dosing Weight 111.364, kg, PRN, PRN Line Flush, Start date: 04/25/13 9:23:00, Duration: 24 hr, Stop date: 04/26/13 9:22:00(Same as: BD Posiflush) Inactive [place] 04/25/2013 [facility] pantoprazole 40 mg, Route: IVP, Drug form: INJ, ONCE, Dosing Weight 111.364, kg, For IV push reconstitute with 10 ml 0.9% sodium chloride and push over at least 3 minutes, Priority: STAT, Start date: 04/25/13 9:23:00, Stop date: 04/25/13 9:23:00For IV push reconstitute with 10 ml 0.9% sodium chloride and push over 2 minutes. (Same as: Protonix) Inactive [place] 04/25/2013 [facility] ondansetron 4 mg, 2 mL, Route: IVP, Drug form: INJ, ONCE, Dosing Weight 111.364, kg, Priority: STAT, Start date: 04/25/13 9:23:00, Stop date: 04/25/13 9:23:00(Same as: Zofran) Inactive [place] 04/25/2013 [facility] thiamine 100 mg oral tablet 100 mg=1 tab, PO, Daily, # 30 tab, 0 Refill(s) Active [facility] 04/10/2013 [facility] rivaroxaban 15 mg tablet 15 mg=1 tab, PO, Q12H, # 60 tab, 0 Refill(s) Active [facility] 04/10/2013 [facility] potassium chloride 20 mEq oral tablet, extended release 20 mEq=1 tab, PO, BID, # 60 tab, 0 Refill(s) Active [facility] 04/10/2013 [facility] OLANZapine 5 mg oral tablet, disintegrating 2.5 mg=0.5 tab, PO, BID, # 30 tab, 0 Refill(s) Active [facility] 04/10/2013 [facility] losartan 50 mg oral tablet 50 mg=1 tab, PO, Daily, # 30 caplet, 0 Refill(s) Active [facility] 04/10/2013 [facility] Advair Diskus 250 mcg-50 mcg inhalation powder 1 inhalation, INHALER, BID, # 28 ea, 0 Refill(s) Active [facility] 04/10/2013 [facility] Xarelto 15 mg, 1 tab, Route: PO, Drug form: TAB, Q12H, Dosing Weight 99.545, kg, Start date: 04/08/13 9:00:00, Duration: 30 day, Stop date: 05/07/13 21:00:00(Same as: Xarelto) Administer with food No Longer Active [facility] 04/08/2013 [facility] magnesium sulfate 2 gm, 50 mL, Route: IVPB, Drug form: INJ, ONCE, Dosing Weight 101.2, kg, Total dose=2 gm, Start date: 04/07/13 15:28:00, Duration: 1 doses or times, Stop date: 04/07/13 15:28:00 Inactive Vidya 04/07/2013 [facility] Navane 5 mg, 1 cap, Route: PO, Drug form: CAP, BID, Dosing Weight 101.2, kg, Start date: 04/07/13 9:00:00, Duration: 30 day, Stop date: 05/06/13 17:00:00(Same As: Navane) No Longer Active Deann 04/07/2013 [facility] Navane 10 mg, 2 cap, Route: PO, Drug form: CAP, Bedtime, Start date: 04/06/13 21:00:00, Duration: 30 day, Stop date: 05/05/13 21:00:00(Same As: Navane) No Longer Active Kaur 04/07/2013 [facility] ZyPREXA Zydis 5 mg, 1 tab, Route: PO, Drug form: TABDIS, Bedtime, Start date: 04/06/13 21:00:00, Duration: 30 day, Stop date: 05/05/13 21:00:00(Same as: ZyPREXA Zydis ODT-Oral Disintegrating Tablet) No Longer Active [facility] 04/07/2013 [facility] morphine Sulfate 2 mg, 1 mL, Route: IV, Drug form: INJ, ONCE, Dosing Weight 101.2, kg, Priority: NOW, Start date: 04/06/13 20:47:00, Stop date: 04/06/13 20:47:00(Same as:MORPhine Sulfate) Inactive [facility] 04/07/2013 [facility] ZyPREXA Zydis 2.5 mg, 0.5 tab, Route: PO, Drug form: TABDIS, BID, Start date: 04/06/13 17:00:00, Duration: 30 day, Stop date: 05/06/13 9:00:00(Same as: ZyPREXA Zydis ODT-Oral Disintegrating Tablet) No Longer Active [facility] 04/06/2013 [facility] Xanax 1 mg, 1 tab, Route: PO, Drug form: TAB, Q6H, PRN Anxiety, Start date: 04/06/13 16:24:00, Duration: 30 day, Stop date: 05/06/13 16:23:00With food or milk (Same as: Xanax) No Longer Active [facility] 04/06/2013 [facility] Spiriva 18 microgram, 1 inhalation, Route: INHALATION, Drug form: CAP, Daily, Dosing Weight 101.2, kg, Start date: 04/06/13 9:00:00, Duration: 30 day, Stop date: 05/05/13 9:00:00(Same As: Spiriva) No Longer Active Jessica 04/06/2013 [facility] lisinopril 40 mg, 2 tab, Route: PO, Drug form: TAB, Daily, Dosing Weight 101.2, kg, Start date: 04/06/13 9:00:00, Duration: 30 day, Stop date: 05/05/13 9:00:00(Same as: Prinivil, Zestril) No Longer Active Deann 04/06/2013 [facility] clonazePAM 2 mg, 2 tab, Route: PO, Drug form: TAB, Bedtime, Dosing Weight 101.2, kg, Start date: 04/05/13 21:00:00, Duration: 30 day, Stop date: 05/04/13 21:00:00(Same As: KlonoPIN) No Longer Active [place] 04/06/2013 [facility] simvastatin 20 mg, 1 tab, Route: PO, Drug form: TAB, Bedtime, Dosing Weight 101.2, kg, Start date: 04/05/13 21:00:00, Duration: 30 day, Stop date: 05/04/13 21:00:00(Same as: Zocor) No Longer Active [place] 04/06/2013 [facility] Remeron 15 mg, 1 tab, Route: PO, Drug form: TAB, Bedtime, Dosing Weight 101.2, kg, Start date: 04/05/13 21:00:00, Duration: 30 day, Stop date: 05/04/13 21:00:00(Same as:Remeron) No Longer Active [place] 04/06/2013 [facility] Advair Diskus 250 mcg-50 mcg inhalation powder 1 inhalation, Route: INHALER, Drug Form: AERO, Dosing Weight 101.2, kg, BID, Start date: 04/05/13 17:00:00, Duration: 30 day, Stop date: 05/05/13 9:00:00(Same as: Advair) No Longer Active Jessica 04/05/2013 [facility] Geodon 20 mg, 1 cap, Route: PO, Drug form: CAP, QPM, Dosing Weight 101.2, kg, Start date: 04/05/13 17:00:00, Duration: 30 day, Stop date: 05/04/13 17:00:00(Same As: Geodon) Give with Food No Longer Active [place] 04/05/2013 [facility] metFORMIN 500 mg oral tablet 500 mg, 1 tab, Route: PO, Drug form: TAB, BID, Dosing Weight 101.2, kg, Start date: 04/05/13 17:00:00, Duration: 30 day, Stop date: 05/05/13 9:00:00(Same as: Glucophage) Take with meal No Longer Active [place] 04/05/2013 [facility] thiothixene 5 mg, 1 cap, Route: PO, Drug form: CAP, TID, Dosing Weight 101.2, kg, Start date: 04/05/13 13:00:00, Duration: 30 day, Stop date: 05/05/13 9:00:00(Same As: Navane) No Longer Active [place] 04/05/2013 [facility] carvedilol 6.25 mg, 1 tab, Route: PO, Drug form: TAB, Q12H, Dosing Weight 101.2, kg, Start date: 04/05/13 11:00:00, Duration: 30 day, Stop date: 05/05/13 9:00:00Give with food. (Same As: Coreg) No Longer Active [place] 04/05/2013 [facility] spironolactone 25 mg, 1 tab, Route: PO, Drug form: TAB, Daily, Dosing Weight 101.2, kg, Start date: 04/05/13 11:00:00, Duration: 30 day, Stop date: 05/05/13 9:00:00(Same As: Aldactone) No Longer Active [place] 04/05/2013 [facility] ALPRAZOLam 1 mg, 1 tab, Route: PO, Drug form: TAB, BID, Dosing Weight 101.2, kg, PRN as needed for anxiety, Start date: 04/05/13 9:51:00, Duration: 30 day, Stop date: 05/05/13 9:50:00With food or milk (Same as: Xanax) No Longer Active [place] 04/05/2013 [facility] clonazePAM 2 mg oral tablet =2 mg, Bedtime, 0 Refill(s) Active [place] 04/05/2013 [facility] Robitussin 100 mg/5 mL oral liquid 200 mg, 10 mL, Route: PO, Drug form: SYRP, Q4H, Dosing Weight 101.2, kg, PRN Cough, Start date: 04/04/13 14:37:00, Duration: 30 day, Stop date: 05/04/13 14:36:00(Same as: Robitussin) No Longer Active Donnie 04/04/2013 [facility] furosemide 60 mg, PO, Daily, 0 Refill(s) Active 04/04/2013 [facility] simvastatin 20 mg oral tablet 20 mg=1 tab, PO, Bedtime, # 30 tab, 0 Refill(s) Active [place] 04/04/2013 [facility] ALPRAZOLam 1 mg oral tablet, disintegrating 1 mg=1 tab, PO, Bedtime, for anxiety, 0 Refill(s) Active 04/04/2013 [facility] carvedilol 6.25 mg oral tablet 6.25 mg=1 tab, PO, Q12H, # 60 tab, 0 Refill(s) Active [place] 04/04/2013 [facility] pantoprazole 40 mg oral enteric coated tablet 40 mg=1 tab, PO, Daily, # 30 tab, 0 Refill(s) Active 04/04/2013 [facility] metFORMIN 500 mg oral tablet 500 mg=1 tab, PO, BID, # 30 tab, 0 Refill(s) Active [place] 04/04/2013 [facility] lisinopril 40 mg oral tablet 40 mg=1 tab, PO, Daily, # 30 tab, 0 Refill(s) Active [place] 04/04/2013 [facility] thiothixene 5 mg, PO, TID, 0 Refill(s) Active [place] 04/04/2013 [facility] spironolactone 25 mg oral tablet =25 mg, PO, Daily, 0 Refill(s) Active [place] 04/04/2013 [facility] Geodon 20 mg oral capsule 20 mg=1 cap, PO, QPM, 0 Refill(s) Active [place] 04/04/2013 [facility] Tylenol 325 mg oral tablet 650 mg=2 tab, PO, Q4H, Fever, # 120 tab, 0 Refill(s) Active 04/04/2013 [facility] Remeron 15 mg oral tablet 15 mg=1 tab, PO, Bedtime, # 30 tab, 0 Refill(s) No Longer Active [place] 04/04/2013 [facility] aspirin 81 mg tablet, enteric coated 81 mg=1 tab, PO, Daily, # 0 tab, 0 Refill(s) Active 04/04/2013 [facility] glucagon 1 mg, Route: IV, Drug form: PDR/INJ, PRN, PRN Blood Glucose Results, Start date: 04/04/13 13:04:00, Duration: 30 day, Stop date: 05/04/13 13:03:00 No Longer Active Donnie 04/04/2013 [facility] Dextrose 50% in Water IV 50 mL, Route: IVP, Start date: 04/04/13 13:03:00, Duration: 30 day, Stop date: 05/04/13 13:02:00, PRN Blood Glucose Results No Longer Active Donnie 04/04/2013 [facility] NovoLog FlexPen 8 unit, 0.08 mL, Route: SUB-Q, Drug form: SOLN, Sliding Scale, PRN Blood Glucose Results, Start date: 04/04/13 13:03:00, Duration: 30 day, Stop date: 05/04/13 13:02:00Roll in palms of hands gently; Do not shake vigorously. (Same as: NovoLog) "single patient use only" Stable for 28 days at room temperature. Expires in days from Date No Longer Active Donnie 04/04/2013 [facility] NovoLog FlexPen 4 unit, 0.04 mL, Route: SUB-Q, Drug form: SOLN, Sliding Scale, PRN Blood Glucose Results, Start date: 04/04/13 13:02:00, Duration: 30 day, Stop date: 05/04/13 13:01:00Roll in palms of hands gently; Do not shake vigorously. (Same as: NovoLog) "single patient use only" Stable for 28 days at room temperature. Expires in days from Date No Longer Active Donnie 04/04/2013 [facility] folic acid 1 mg, 1 tab, Route: PO, Drug form: TAB, Daily, Dosing Weight 101.2, kg, Start date: 04/04/13 10:00:00, Duration: 30 day, Stop date: 05/04/13 9:00:00(Same as: Folvite) No Longer Active Deann 04/04/2013 [facility] thiamine 100 mg, 1 tab, Route: PO, Drug form: TAB, Daily, Dosing Weight 101.2, kg, Start date: 04/04/13 10:00:00, Duration: 30 day, Stop date: 05/04/13 9:00:00(Same As: Vitamin B1) No Longer Active Deann 04/04/2013 [facility] Colace 100 mg oral capsule 100 mg, 1 cap, Route: PO, Drug form: CAP, BID, Dosing Weight 101.2, kg, Start date: 04/04/13 10:00:00, Duration: 30 day, Stop date: 05/04/13 9:00:00(Same as: Colace) (Do Not Crush) No Longer Active [place] 04/04/2013 [facility] potassium chloride 20 mEq, 15 mL, Route: NJ, Drug form: LIQ, PRN, Dosing Weight 101.2, kg, PRN Abnormal Lab Result, Start date: 04/04/13 9:40:00, Duration: 30 day, Stop date: 05/04/13 9:39:00, FOR ICU USE ONLYFOR ICU USE ONLY(Same as: Potassium Chloride) No Longer Active [place] 04/04/2013 [facility] sodium phosphate + Sodium Chloride 0.9% IV 250 mL 30 mmol, 10 mL, Route: IVPB, PRN, Dosing Weight 101.2, kg, PRN Abnormal Lab Result, Start date: 04/04/13 9:40:00, Duration: 30 day, Stop date: 05/04/13 9:39:00, FOR ICU USE ONLYFOR ICU USE ONLY No Longer Active [place] 04/04/2013 [facility] potassium phosphate + Sodium Chloride 0.9% IV 250 mL 15 mmol, 5 mL, Route: IVPB, PRN, Dosing Weight 101.2, kg, PRN Abnormal Lab Result, Start date: 04/04/13 9:40:00, Duration: 30 day, Stop date: 05/04/13 9:39:00, FOR ICU USE ONLYFOR ICU USE ONLY(Same as: K Phosphate.) 1 mMol phoshate has 1.47 mEq potassium Infuse over 4 hours No Longer Active [place] 04/04/2013 [facility] magnesium sulfate 2 gm, 50 mL, Route: IVPB, Drug form: INJ, PRN, Dosing Weight 101.2, kg, PRN Abnormal Lab Result, Start date: 04/04/13 9:40:00, Duration: 30 day, Stop date: 05/04/13 9:39:00, FOR ICU USE ONLYFOR ICU USE ONLY No Longer Active [place] 04/04/2013 [facility] calcium gluconate 1 gm, 50 mL, Route: IVPB, Drug form: INJ, PRN, Dosing Weight 101.2, kg, PRN Abnormal Lab Result, Start date: 04/04/13 9:40:00, Duration: 30 day, Stop date: 05/04/13 9:39:00, FOR ICU USE ONLYFOR ICU USE ONLY No Longer Active [place] 04/04/2013 [facility] aspirin 81 mg, 1 tab, Route: PO, Drug form: ECTAB, Daily, Dosing Weight 109.091, kg, Start date: 04/04/13 9:00:00, Duration: 30 day, Stop date: 05/03/13 9:00:00Do not crush or chew. (Same As: Ecotrin) No Longer Active Rojas 04/04/2013 [facility] pantoprazole 40 mg, 1 tab, Route: PO, Drug form: ECTAB, Before Breakfast, Dosing Weight 109.091, kg, Start date: 04/04/13 7:30:00, Duration: 30 day, Stop date: 05/03/13 7:30:00Tablet should not be chewed or crushed. (Same as: Protonix) No Longer Active Deann 04/04/2013 [facility] hydrALAZINE 10 mg, 0.5 mL, Route: IV, Drug form: INJ, ONCE, Start date: 04/04/13 5:32:00, Stop date: 04/04/13 5:32:00(Same as: Apresoline) Push over 5 minutes Inactive Robin 04/04/2013 [facility] Lovenox 110 mg, 0.73 mL, Route: SUB-Q, Drug form: INJ, [id number], Dosing Weight 109.091, kg, Start date: 04/04/13 1:00:00, Duration: 30 day, Stop date: 05/03/13 4:00:00Nurse to ensure documentation of patient ed ucation per anticoagulation policy. (Same as: Lovenox) No Longer Active [place] 04/04/2013 [facility] Saline Flush 0.9% 5 ml, Route: IVP, Drug Form: INJ, Dosing Weight 109.091, kg, Q12H, Start date: 04/03/13 21:00:00, Duration: 30 day, Stop date: 05/03/13 9:00:00(Same as: BD Posiflush) Inactive [place] 04/04/2013 [facility] Cozaar 50 mg, 1 tab, Route: PO, Drug form: TAB, Daily, Dosing Weight 109.091, kg, Start date: 04/03/13 18:30:00, Duration: 30 day, Stop date: 05/03/13 9:00:00(Same as: Cozaar) No Longer Active [facility] 04/04/2013 [facility] potassium chloride 20 mEq, 1 tab, Route: PO, Drug form: ERTAB, BID, Dosing Weight 109.091, kg, Start date: 04/03/13 18:30:00, Duration: 30 day, Stop date: 05/03/13 17:00:00(Same as: K-Dur 20) "Do Not Crush" With food and full glass of water No Longer Active [facility] 04/04/2013 [facility] Lasix 40 mg, 4 mL, Route: IV, Drug form: INJ, BID, Dosing Weight 109.091, kg, Start date: 04/03/13 18:30:00, Duration: 30 day, Stop date: 05/03/13 17:00:00(Same as: Lasix) No Longer Active [facility] 04/04/2013 [facility] Sodium Chloride 0.9% IV 250 mL, Route: IVPB, Start date: 04/03/13 18:06:00, Duration: 30 day, Stop date: 05/03/13 18:05:00, PRN Line Flush No Longer Active [facility] 04/04/2013 [facility] BD Normal Saline Flush 10 mL, Route: IVP, Drug Form: INJ, PRN, PRN Line Flush, Start date: 04/03/13 18:06:00, Duration: 30 day, Stop date: 05/03/13 18:05:00(Same as: BD Posiflush) No Longer Active [facility] 04/04/2013 [facility] glucagon 1 mg, Route: IM, Drug form: PDR/INJ, PRN, Dosing Weight 109.091, kg, PRN Blood Glucose Results, Start date: 04/03/13 17:58:00, Duration: 30 day, Stop date: 05/03/13 17:57:00 No Longer Active Deann 04/03/2013 [facility] Dextrose 50% Syringe 12.5 gm, 25 mL, Route: IVP, Drug Form: INJ, Dosing Weight 109.091, kg, PRN, PRN Blood Glucose Results, Start date: 04/03/13 17:58:00, Duration: 30 day, Stop date: 05/03/13 17:57:00 No Longer Active Deann 04/03/2013 [facility] insulin aspart 2 unit, 0.02 mL, Route: SUB-Q, Drug form: SOLN, TID-Before Meals, Dosing Weight 109.091, kg, PRN Blood Glucose Results, Start date: 04/03/13 17:58:00, Duration: 30 day, Stop date: 05/03/13 17:57:00Ro ll in palms of hands gently; Do not shake vigorously. (Same as: NovoLog) "single patient use only" Stable for 28 days at room temperature. Expires in days from Date No Longer Active Deann 04/03/2013 [facility] Ativan 2 mg, 2 tab, Route: PO, Drug form: TAB, Q6H, Dosing Weight 109.091, kg, PRN Anxiety, Start date: 04/03/13 17:13:00, Duration: 30 day, Stop date: 05/03/13 17:12:00(Same as: Ativan) No Longer Active Deann 04/03/2013 [facility] furosemide 60 mg, 6 mL, Route: IVP, Drug form: INJ, BID, Dosing Weight 109.091, kg, Start date: 04/03/13 17:00:00, Duration: 30 day, Stop date: 05/03/13 9:00:00(Same as: Lasix) Inactive [facility] 04/03/2013 [facility] enoxaparin 110 mg, 0.73 mL, Route: SUB-Q, Drug form: INJ, [id number], Dosing Weight 109.091, kg, Start date: 04/03/13 17:00:00, Duration: 30 day, Stop date: 05/03/13 5:00:00Nurse to ensure documentation of patient e ducation per anticoagulation policy. (Same as: Lovenox) Inactive [facility] 04/03/2013 [facility] Saline Flush 0.9% 5 ml, Route: IVP, Drug Form: INJ, Dosing Weight 109.091, kg, PRN, PRN Line Flush, Start date: 04/03/13 16:59:00, Duration: 30 day, Stop date: 05/03/13 16:58:00(Same as: BD Posiflush) Inactive [facility] 04/03/2013 [facility] albuterol 0.083% inhalation solution 2.49 mg, 3 mL, Route: NEB, Drug form: SOLN, PRN, Dosing Weight 109.091, kg, PRN Respiratory Protocol, Start date: 04/03/13 16:59:00, Duration: 30 day, Stop date: 05/03/13 16:58:00SEE RT DOCUMENTATION (Same as: Proventil) No Longer Active Deann 04/03/2013 [facility] acetaminophen 650 mg, 2 tab, Route: PO, Drug form: TAB, Q4H, Dosing Weight 109.091, kg, PRN For Temp > 100.4 F, Start date: 04/03/13 16:59:00, Duration: 30 day, Stop date: 05/03/13 16:58:00Do not exceed 4 gm/day. (Same as: Tylenol) No Longer Active Deann 04/03/2013 [facility] enoxaparin 110 mg, 0.73 mL, Route: SUB-Q, Drug form: INJ, ONCE, Dosing Weight 109.091, kg, Priority: STAT, Start date: 04/03/13 13:29:00, Stop date: 04/03/13 13:29:00Nurse to ensure documentation of patient education per anticoagulation policy. (Same as: Lovenox) Inactive Sam 04/03/2013 [facility] metoprolol tartrate 25 mg, 1 tab, Route: PO, Drug form: TAB, Q6H, Dosing Weight 109.091, kg, Start date: 04/03/13 12:00:00, Duration: 30 day, Stop date: 05/03/13 6:00:00(Same as: Lopressor) No Longer Active Xie 04/03/2013 [facility] nitroglycerin SL Tab 0.4 mg, 1 tab, Route: SL, Drug form: TAB, Q5Min, Dosing Weight 109.091, kg, PRN Chest Pain, Start date: 04/03/13 11:33:00, Duration: 3 doses or times, Stop date: Limited # of times(Same as:Nitroquick, Nitrostat) "Do Not Crush" Sublingual tablet No Longer Active Xie 04/03/2013 [facility] Saline Flush 0.9% 5 ml, Route: IVP, Drug Form: INJ, Dosing Weight 109.091, kg, PRN, PRN Line Flush, Start date: 04/03/13 11:33:00, Duration: 30 day, Stop date: 05/03/13 11:32:00(Same as: BD Posiflush) Inactive Xie 04/03/2013 [facility] Ativan 2 mg, Route: IVP, Drug form: INJ, ONCE, Dosing Weight 109.091, kg, Priority: STAT, Start date: 04/03/13 9:52:00, Stop date: 04/03/13 9:52:00 Inactive [facility] 04/03/2013 [facility] Saline Flush 0.9% 5 mL, Route: IVP, Drug Form: INJ, Dosing Weight 109.091, kg, Q8H, PRN Line Flush, Start date: 04/03/13 6:18:00, Duration: 30 day, Stop date: 05/03/13 6:17:00, Administer at least once every 8 hoursAdminister at least once every 8 hours(Same as: BD Posiflush) Inactive [facility] 04/03/2013 [facility] aspirin 324 mg, Route: PO, ONCE, Dosing Weight 109.091, kg, Priority: STAT, Start date: 04/03/13 6:18:00, Stop date: 04/03/13 6:18:00 Inactive [facility] 04/03/2013 [facility] promethazine 25 mg oral tablet 25 mg=1 tab, PO, Q6H, Nausea & Vomiting, # 15 tab, 0 Refill(s) Active [facility] 03/10/2013 [facility] Phenergan 25 mg, 1 mL, Route: IM, Drug form: INJ, ONCE, Dosing Weight 129.545, kg, Priority: STAT, Start date: 03/10/13 3:16:00, Stop date: 03/10/13 3:16:00Do not give IV push. (Same as: Phenergan) Inactive [facility] 03/10/2013 [facility] Reglan 10 mg, Route: IVP, Drug form: INJ, ONCE, Dosing Weight 129.545, kg, Priority: STAT, Start date: 03/10/13 2:58:00, Stop date: 03/10/13 2:58:00 Inactive [facility] 03/10/2013 [facility] Sodium Chloride 0.9% (Bolus) IV 500 mL 500 mL, Rate: 1,000 ml/hr, Infuse over: 30 minutes, Route: IV, Dosing Weight 129.545 kg, Total Volume: 500, Priority: STAT, Start date: 03/10/13 2:58:00, Duration: 1 doses or times, Stop date: 03/10/13 3:27:00 Inactive [facility] 03/10/2013 [facility] Saline Flush 0.9% 5 mL, Route: IVP, Drug Form: INJ, Dosing Weight 129.545, kg, PRN, PRN Line Flush, Start date: 03/10/13 2:58:00, Duration: 24 hr, Stop date: 03/11/13 2:57:00(Same as: BD Posiflush) Inactive [facility] 03/10/2013 [facility] ALPRAZOLam 1 mg oral tablet, disintegrating =2 mg, PO, Bedtime, # 30 tab, 0 Refill(s) Active [facility] 02/27/2013 [facility] thiothixene 5 mg oral capsule 5 mg=1 cap, PO, TID, # 90 cap, 0 Refill(s) Active [facility] 02/27/2013 [facility] Haldol 5 mg, 1 mL, Route: IM, Drug form: INJ, ONCE, Start date: 02/26/13 16:26:00, Stop date: 02/26/13 16:26:00(Same as: Haldol) No Longer Active [facility] 02/26/2013 [facility] Dextrose 50% Syringe 12.5 gm, 25 mL, Route: IVP, Drug Form: INJ, Dosing Weight 129.545, kg, PRN, PRN Blood Glucose Results, Start date: 02/26/13 15:33:00, Duration: 30 day, Stop date: 03/28/13 15:32:00 No Longer Active [facility] 02/26/2013 [facility] glucagon 1 mg, Route: IM, Drug form: PDR/INJ, PRN, Dosing Weight 129.545, kg, PRN Blood Glucose Results, Start date: 02/26/13 15:33:00, Duration: 30 day, Stop date: 03/28/13 15:32:00 No Longer Active [facility] 02/26/2013 [facility] insulin aspart 4 unit, 0.04 mL, Route: SUB-Q, Drug form: SOLN, TID-Before Meals, Dosing Weight 129.545, kg, PRN Blood Glucose Results, Start date: 02/26/13 15:33:00, Duration: 30 day, Stop date: 03/28/13 15:32:00Ro ll in palms of hands gently; Do not shake vigorously. (Same as: NovoLog) "single patient use only" Stable for 28 days at room temperature. Expires in days from Date No Longer Active [facility] 02/26/2013 [facility] albuterol-ipratropium 2.5-0.5 mg inhalation solution 3 ml, Route: NEB, Drug Form: SOLN, Dosing Weight 129.545, kg, PRN, PRN Respiratory Protocol, Start date: 02/26/13 10:07:00, Duration: 30 day, Stop date: 03/28/13 10:06:00(Same as: Duoneb) No Longer Active [facility] 02/26/2013 [facility] Sodium Chloride 0.9% IV 250 mL, Route: IVPB, Start date: 02/25/13 21:05:00, Duration: 30 day, Stop date: 03/27/13 21:04:00, PRN Line Flush No Longer Active [facility] 02/26/2013 [facility] BD Normal Saline Flush 10 mL, Route: IVP, Drug Form: INJ, PRN, PRN Line Flush, Start date: 02/25/13 21:05:00, Duration: 30 day, Stop date: 03/27/13 21:04:00(Same as: BD Posiflush) No Longer Active [facility] 02/26/2013 [facility] acetaminophen-hydrocodone 325 mg-5 mg oral tablet 2 tab, Route: PO, Drug Form: TAB, Q6H, PRN Pain Score 4-6, Start date: 02/25/13 21:04:00, Duration: 30 day, Stop date: 03/27/13 21:03:00(Same as: Wild Rose 325/5) Do not exceed 4gm/day of acetaminophen. No Longer Active [facility] 02/26/2013 [facility] acetaminophen-hydrocodone 325 mg-5 mg oral tablet 1 tab, Route: PO, Drug Form: TAB, Q6H, PRN Pain Score 4-6, Start date: 02/25/13 21:03:00, Duration: 30 day, Stop date: 03/27/13 21:02:00(Same as: Wild Rose 325/5) Do not exceed 4gm/day of acetaminophen. No Longer Active [facility] 02/26/2013 [facility] Klonopin 2 mg, 2 tab, Route: PO, Drug form: TAB, Bedtime, Dosing Weight 129.545, kg, Start date: 02/25/13 21:00:00, Duration: 30 day, Stop date: 03/26/13 21:00:00(Same As: Klonopin) No Longer Active [facility] 02/26/2013 [facility] Xanax 2 mg, 2 tab, Route: PO, Drug form: TAB, Bedtime, Start date: 02/25/13 21:00:00, Duration: 30 day, Stop date: 03/26/13 21:00:00With food or milk (Same as: Xanax) No Longer Active [facility] 02/26/2013 [facility] Wild Rose 5/325 oral tablet Route: PO, Drug Form: TAB, Dosing Weight 129.545, kg, Q6H, PRN as needed for pain, Start date: 02/25/13 20:12:00, Duration: 30 day, Stop date: 03/27/13 20:11:00 Inactive [facility] 02/26/2013 [facility] Xanax 1 mg, 1 tab, Route: PO, Drug form: TAB, BID, Start date: 02/25/13 17:00:00, Duration: 30 day, Stop date: 03/27/13 9:00:00With food or milk (Same as: Xanax) No Longer Active [facility] 02/25/2013 [facility] Cogentin 1 mg, 1 tab, Route: PO, Drug form: TAB, TID, Start date: 02/25/13 17:00:00, Duration: 30 day, Stop date: 03/27/13 13:00:00(Same As: Cogentin) Inactive [facility] 02/25/2013 [facility] Navane 5 mg, 1 cap, Route: PO, Drug form: CAP, TID, Start date: 02/25/13 17:00:00, Duration: 30 day, Stop date: 03/27/13 13:00:00(Same As: Navane) No Longer Active [facility] 02/25/2013 [facility] Klonopin 2 mg oral tablet 2 mg=1 tab, PO, Bedtime, 0 Refill(s) No Longer Active [facility] 02/25/2013 [facility] Xanax 2.5 mg, PO, 0 Refill(s) No Longer Active 02/25/2013 [facility] Wild Rose 5/325 oral tablet 1-2 tab, PO, Q4-6H, PRN, 15 tab, Pain, Substitution Allowed, Maintenance On Hold [facility] 02/24/2013 [facility] spironolactone 25 mg, 1 tab, Route: PO, Drug form: TAB, Daily, Dosing Weight 91.5, kg, Start date: 02/02/13 9:00:00, Duration: 30 day, Stop date: 03/03/13 9:00:00(Same As: Aldactone) No Longer Active [facility] 02/02/2013 [facility] lisinopril 40 mg, 2 tab, Route: PO, Drug form: TAB, Daily, Dosing Weight 91.5, kg, Start date: 02/02/13 9:00:00, Duration: 30 day, Stop date: 03/03/13 9:00:00(Same as: Prinivil, Zestril) No Longer Active [facility] 02/02/2013 [facility] Geodon 20 mg, 1 cap, Route: PO, Drug form: CAP, Bedtime, Dosing Weight 91.5, kg, Start date: 02/01/13 21:00:00, Duration: 30 day, Stop date: 03/02/13 21:00:00(Same As: Geodon) Give with Food Inactive [facility] 02/02/2013 [facility] simvastatin 20 mg, 1 tab, Route: PO, Drug form: TAB, Bedtime, Dosing Weight 91.5, kg, Start date: 02/01/13 21:00:00, Duration: 30 day, Stop date: 03/02/13 21:00:00(Same as: Zocor) Inactive [facility] 02/02/2013 [facility] Remeron 15 mg, 1 tab, Route: PO, Drug form: TAB, Bedtime, Dosing Weight 91.5, kg, Start date: 02/01/13 21:00:00, Duration: 30 day, Stop date: 03/02/13 21:00:00(Same as:Remeron) Inactive [facility] 02/02/2013 [facility] clonazepam 2 mg, 2 tab, Route: PO, Drug form: TAB, Bedtime, Dosing Weight 91.5, kg, Start date: 02/01/13 21:00:00, Duration: 30 day, Stop date: 03/02/13 21:00:00(Same As: Klonopin) Inactive [facility] 02/02/2013 [facility] carvedilol 6.25 mg, 1 tab, Route: PO, Drug form: TAB, Q12H, Dosing Weight 91.5, kg, Start date: 02/01/13 21:00:00, Duration: 30 day, Stop date: 03/03/13 9:00:00Give with food. (Same As: Coreg) Inactive [facility] 02/02/2013 [facility] Lasix 60 mg, 6 mL, Route: IV, Drug form: INJ, ONCE, Start date: 02/01/13 17:51:00, Stop date: 02/01/13 17:51:00(Same as: Lasix) Inactive [facility] 02/01/2013 [facility] pantoprazole 40 mg, 1 tab, Route: PO, Drug form: ECTAB, Before Dinner, Dosing Weight 91.5, kg, Start date: 02/01/13 16:30:00, Duration: 30 day, Stop date: 03/02/13 16:30:00Tablet should not be chewed or crushed. (Same as: Protonix) Inactive [facility] 02/01/2013 [facility] metFORmin 500 mg oral tablet 500 mg, 1 tab, Route: PO, Drug form: TAB, BID-Meals, Dosing Weight 91.5, kg, Start date: 02/01/13 9:16:00, Duration: 30 day, Stop date: 03/03/13 8:00:00(Same as: Glucophage) Take with meal Inactive [facility] 02/01/2013 [facility] acetaminophen 325 mg oral tablet 650 mg, 2 tab, Route: PO, Drug form: TAB, Q4H, Dosing Weight 91.5, kg, PRN as needed for fever, Start date: 02/01/13 9:09:00, Duration: 30 day, Stop date: 03/03/13 9:08:00Do not exceed 4 gm/day. (Same as: Tylenol) Inactive [facility] 02/01/2013 [facility] Saline Flush 0.9% 5 ml, Route: IVP, Drug Form: INJ, Dosing Weight 129.545, kg, Q12H, Start date: 02/01/13 9:00:00, Duration: 30 day, Stop date: 03/02/13 21:00:00(Same as: BD Posiflush) Inactive [facility] 02/01/2013 [facility] spironolactone 25 mg, 1 tab, Route: PO, Drug form: TAB, Daily, Dosing Weight 129.545, kg, Start date: 02/01/13 9:00:00, Duration: 30 day, Stop date: 03/02/13 9:00:00(Same As: Aldactone) Inactive [facility] 02/01/2013 [facility] carvedilol 6.25 mg, 1 tab, Route: PO, Drug form: TAB, Q12H, Dosing Weight 129.545, kg, Start date: 02/01/13 9:00:00, Duration: 30 day, Stop date: 03/02/13 21:00:00Give with food. (Same As: Coreg) Inactive [facility] 02/01/2013 [facility] furosemide 60 mg, 6 mL, Route: IVP, Drug form: INJ, Q12H, Dosing Weight 129.545, kg, Start date: 02/01/13 9:00:00, Duration: 30 day, Stop date: 03/02/13 21:00:00(Same as: Lasix) Inactive [facility] 02/01/2013 [facility] aspirin 81 mg tablet, enteric coated 81 mg, 1 tab, Route: PO, Drug form: ECTAB, Daily, Dosing Weight 129.545, kg, Start date: 02/01/13 9:00:00, Duration: 30 day, Stop date: 03/02/13 9:00:00Do not crush or chew. (Same As: Ecotrin) Inactive [facility] 02/01/2013 [facility] lisinopril 40 mg, 2 tab, Route: PO, Drug form: TAB, Daily, Dosing Weight 129.545, kg, Start date: 02/01/13 9:00:00, Duration: 30 day, Stop date: 03/02/13 9:00:00(Same as: Ingrid Hess) Inactive [facility] 02/01/2013 [facility] insulin aspart 2 unit, 0.02 mL, Route: SUB-Q, Drug form: SOLN, TID-Before Meals, Dosing Weight 129.545, kg, PRN Blood Glucose Results, Start date: 02/01/13 0:24:00, Duration: 30 day, Stop date: 03/03/13 0:23:00Roll in palms of hands gently; Do not shake vigorously. (Same as: NovoLog) "single patient use only" Stable for 28 days at room temperature. Expires in days from Date Inactive [facility] 02/01/2013 [facility] glucagon 1 mg, Route: IM, Drug form: PDR/INJ, PRN, Dosing Weight 129.545, kg, PRN Blood Glucose Results, Start date: 02/01/13 0:24:00, Duration: 30 day, Stop date: 03/03/13 0:23:00 Inactive [facility] 02/01/2013 [facility] Dextrose 50% Syringe 25 gm, 50 mL, Route: IVP, Drug Form: INJ, Dosing Weight 129.545, kg, PRN, PRN Blood Glucose Results, Start date: 02/01/13 0:24:00, Duration: 30 day, Stop date: 03/03/13 0:23:00 Inactive [facility] 02/01/2013 [facility] Saline Flush 0.9% 5 ml, Route: IVP, Drug Form: INJ, Dosing Weight 129.545, kg, PRN, PRN Line Flush, Start date: 02/01/13 0:23:00, Duration: 30 day, Stop date: 03/03/13 0:22:00(Same as: BD Posiflush) Inactive [facility] 02/01/2013 [facility] ondansetron 4 mg, 2 mL, Route: IVP, Drug form: INJ, Q8H, Dosing Weight 129.545, kg, PRN Nausea & Vomiting, Start date: 02/01/13 0:23:00, Duration: 30 day, Stop date: 03/03/13 0:22:00(Same as: Zofran) Inactive [facility] 02/01/2013 [facility] Ativan 1 mg, 0.5 mL, Route: IVP, Drug form: INJ, Q6H, Dosing Weight 129.545, kg, PRN Anxiety, Start date: 02/01/13 0:23:00, Duration: 30 day, Stop date: 03/03/13 0:22:00(Same as: Ativan) Inactive [facility] 02/01/2013 [facility] furosemide 60 mg, Route: IV, ONCE, Dosing Weight 129.545, kg, Priority: STAT, Start date: 01/31/13 22:46:00, Stop date: 01/31/13 22:46:00 No Longer Active [facility] 02/01/2013 [facility] Sodium Chloride 0.9% IV 250 mL, Route: IVPB, Start date: 01/31/13 21:06:00, Duration: 30 day, Stop date: 03/02/13 21:05:00, PRN Line Flush No Longer Active [facility] 02/01/2013 [facility] BD Normal Saline Flush 10 mL, Route: IVP, Drug Form: INJ, PRN, PRN Line Flush, Start date: 01/31/13 21:06:00, Duration: 30 day, Stop date: 03/02/13 21:05:00(Same as: BD Posiflush) No Longer Active [facility] 02/01/2013 [facility] aspirin 325 mg, 1 tab, Route: PO, Drug form: TAB, ONCE, Dosing Weight 129.545, kg, Priority: STAT, Start date: 01/31/13 20:44:00, Stop date: 01/31/13 20:44:00Take with food. Inactive [facility] 02/01/2013 [facility] Saline Flush 0.9% 5 mL, Route: IVP, Drug Form: INJ, Dosing Weight 129.545, kg, Q8H, PRN Line Flush, Start date: 01/31/13 20:44:00, Duration: 30 day, Stop date: 03/02/13 20:43:00, Administer at least once every 8 hoursAdminister at least once every 8 hours Inactive [facility] 02/01/2013 [facility] Lasix 40 mg oral tablet 40 mg, 1 tab, Route: PO, Drug form: TAB, BID, Dosing Weight 127.273, kg, Start date: 01/24/13 17:00:00, Duration: 30 day, Stop date: 02/23/13 9:00:00(Same as: Lasix) May cause GI upset. Give with food or milk. Inactive [facility] 01/24/2013 [facility] spironolactone 25 mg oral tablet 25 mg, 1 tab, PO, Daily, 30 tab, Substitution Allowed, TAB Active [facility] 01/24/2013 [facility] simvastatin 20 mg oral tablet 20 mg, 1 tab, PO, Bedtime, 30 tab, Substitution Allowed, TAB Active [facility] 01/24/2013 [facility] pantoprazole 40 mg oral enteric coated tablet 40 mg, 1 tab, PO, Before Dinner, 30 tab, Substitution Allowed, ECTAB Active [facility] 01/24/2013 [facility] metFORmin 500 mg oral tablet 500 mg, 1 tab, PO, BID-Meals, 60 tab, Substitution Allowed, TAB Active [facility] 01/24/2013 [facility] lisinopril 40 mg oral tablet 40 mg, 1 tab, PO, Daily, 14 tab, Substitution Allowed, TAB Active [facility] 01/24/2013 [facility] furosemide 40 mg oral tablet 40 mg, 1 tab, PO, Daily, 30 tab, Substitution Allowed, TAB Active [facility] 01/24/2013 [facility] carvedilol 6.25 mg oral tablet 6.25 mg, 1 tab, PO, Q12H, 60 tab, Substitution Allowed, TAB Active [facility] 01/24/2013 [facility] Aspirin Low Dose 81 mg oral tablet 81 mg, 1 tab, PO, Daily, 30 tab, Substitution Allowed, TAB Active [facility] 01/24/2013 [facility] Geodon 20 mg, 1 cap, Route: PO, Drug form: CAP, Bedtime, Dosing Weight 127.273, kg, Start date: 01/23/13 21:00:00, Duration: 30 day, Stop date: 02/21/13 21:00:00(Same As: Geodon) Give with Food No Longer Active [facility] 01/24/2013 [facility] [place] simvastatin 20 mg, 1 tab, Route: PO, Drug form: TAB, Bedtime, Dosing Weight 127.273, kg, Start date: 01/23/13 21:00:00, Duration: 30 day, Stop date: 02/21/13 21:00:00(Same as: Zocor) No Longer Active [facility] 01/24/2013 [facility] Remeron 15 mg, 1 tab, Route: PO, Drug form: TAB, Bedtime, Dosing Weight 127.273, kg, Start date: 01/23/13 21:00:00, Duration: 30 day, Stop date: 02/21/13 21:00:00(Same as:Remeron) No Longer Active [facility] 01/24/2013 [facility] clonazepam 2 mg, 2 tab, Route: PO, Drug form: TAB, Bedtime, Dosing Weight 127.273, kg, Start date: 01/23/13 21:00:00, Duration: 30 day, Stop date: 02/21/13 21:00:00(Same As: Klonopin) No Longer Active [facility] 01/24/2013 [facility] [facility] metFORmin 500 mg oral tablet 500 mg, 1 tab, Route: PO, Drug form: TAB, BID-Meals, Dosing Weight 127.273, kg, Start date: 01/23/13 17:00:00, Duration: 30 day, Stop date: 02/22/13 8:00:00(Same as: Glucophage) Take with meal No Longer Active [facility] 01/23/2013 [facility] pantoprazole 40 mg, 1 tab, Route: PO, Drug form: ECTAB, Before Dinner, Dosing Weight 127.273, kg, Start date: 01/23/13 16:30:00, Duration: 30 day, Stop date: 02/21/13 16:30:00Tablet should not be chewed or crushed. (Same as: Protonix) No Longer Active [facility] 01/23/2013 [facility] aspirin 81 mg, 1 tab, Route: PO, Drug form: CHEWTAB, Daily, Dosing Weight 127.273, kg, Start date: 01/23/13 12:57:00, Duration: 30 day, Stop date: 02/22/13 9:00:00Take with food. No Longer Active [facility] 01/23/2013 [facility] spironolactone 25 mg, 1 tab, Route: PO, Drug form: TAB, Daily, Dosing Weight 127.273, kg, Start date: 01/23/13 9:00:00, Duration: 30 day, Stop date: 02/21/13 9:00:00(Same As: Aldactone) No Longer Active [facility] 01/23/2013 [facility] Lasix 40 mg, Route: IVP, Drug form: INJ, Daily, Dosing Weight 127.273, kg, Start date: 01/23/13 9:00:00, Duration: 30 day, Stop date: 02/21/13 9:00:00 No Longer Active [facility] 01/23/2013 [facility] lisinopril 40 mg, 2 tab, Route: PO, Drug form: TAB, Daily, Dosing Weight 127.273, kg, Start date: 01/23/13 9:00:00, Duration: 30 day, Stop date: 02/21/13 9:00:00(Same as: Prinivil, Zestril) No Longer Active [facility] 01/23/2013 [facility] Saline Flush 0.9% 3 ml, Route: IVP, Drug Form: INJ, Dosing Weight 127.273, kg, Q8H, Start date: 01/23/13 0:00:00, Duration: 30 day, Stop date: 02/21/13 16:00:00(Same as: BD Posiflush) No Longer Active [facility] 01/23/2013 [facility] Coreg 6.25 mg, 1 tab, Route: PO, Drug form: TAB, Q12H, Dosing Weight 127.273, kg, Start date: 01/22/13 21:00:00, Duration: 30 day, Stop date: 02/21/13 9:00:00Give with food. (Same As: Coreg) No Longer Active [facility] 01/23/2013 [facility] Lasix 20 mg, 2 mL, Route: IV, Drug form: INJ, BID, Dosing Weight 127.273, kg, Start date: 01/22/13 17:00:00, Duration: 30 day, Stop date: 02/21/13 9:00:00(Same as: Lasix) No Longer Active [facility] 01/22/2013 [facility] temazepam 15 mg, 1 cap, Route: PO, Drug form: CAP, Bedtime, Dosing Weight 127.273, kg, PRN Sleep, Start date: 01/22/13 15:31:00, Duration: 30 day, Stop date: 02/21/13 15:30:00(Same As: Restoril) No Longer Active [facility] 01/22/2013 [facility] Wild Rose 5/325 oral tablet 1 tab, Route: PO, Drug Form: TAB, Dosing Weight 127.273, kg, Q6H, PRN Pain, Start date: 01/22/13 15:31:00, Duration: 30 day, Stop date: 02/21/13 15:30:00(Same as: Wild [place] 325/5) Do not exceed 4gm/day of acetaminophen. No Longer Active [facility] 01/22/2013 [facility] Tylenol 650 mg, 2 tab, Route: PO, Drug form: TAB, Q6H, Dosing Weight 127.273, kg, PRN Fever, Start date: 01/22/13 15:30:00, Duration: 30 day, Stop date: 02/21/13 15:29:00Do not exceed 4 gm/day. (Same as: Tylenol) No Longer Active [facility] 01/22/2013 [facility] Zofran 4 mg, 2 mL, Route: IV, Drug form: INJ, Q8H, Dosing Weight 127.273, kg, PRN Nausea, Start date: 01/22/13 15:30:00, Duration: 30 day, Stop date: 02/21/13 14:29:00(Same as: Zofran) No Longer Active [facility] 01/22/2013 [facility] potassium chloride 40 mEq, 2 tab, Route: PO, Drug form: ERTAB, ONCE, Dosing Weight 127.273, kg, Start date: 01/22/13 15:28:00, Stop date: 01/22/13 15:28:00(Same as: K-Dur 20) "Do Not Crush" With food and full glass of water Inactive [facility] 01/22/2013 [facility] Saline Flush 0.9% 5 ml, Route: IVP, Drug Form: INJ, Dosing Weight 127.273, kg, PRN, PRN Line Flush, Start date: 01/22/13 15:16:00, Duration: 30 day, Stop date: 02/21/13 14:15:00(Same as: BD Posiflush) No Longer Active [facility] 01/22/2013 [facility] enoxaparin 40 mg, 0.4 mL, Route: SUB-Q, Drug form: INJ, [id number], Dosing Weight 127.273, kg, Start date: 01/22/13 15:00:00, Duration: 30 day, Stop date: 02/20/13 15:00:00(Same as: Lovenox) No Longer Active [facility] 01/22/2013 [facility] Lasix 40 mg, 4 mL, Route: IVP, Drug form: INJ, ONCE, Dosing Weight 127.273, kg, Priority: STAT, Start date: 01/22/13 13:02:00, Stop date: 01/22/13 13:02:00(Same as: Lasix) Inactive Sourav 01/22/2013 [facility] Saline Flush 0.9% 5 mL, Route: IVP, Drug Form: INJ, Dosing Weight 127.273, kg, Q8H, PRN Line Flush, Start date: 01/22/13 10:02:00, Duration: 30 day, Stop date: 02/21/13 10:01:00, Administer at least once every 8 hoursAdminister at least once every 8 hours(Same as: BD Posiflush) No Longer Active Sourav 01/22/2013 [facility] aspirin 324 mg, 4 tab, Route: PO, Drug form: CHEWTAB, ONCE, Dosing Weight 127.273, kg, Priority: STAT, Start date: 01/22/13 10:02:00, Stop date: 01/22/13 10:02:00Take with food. Inactive Sourav 01/22/2013 [facility] simvastatin 20 mg oral tablet 20 mg, 1 tab, PO, Bedtime, 30 tab, Substitution Allowed, TAB Active [facility] 01/15/2013 [facility] pantoprazole 40 mg oral enteric coated tablet 40 mg, 1 tab, PO, Before Dinner, 30 tab, Substitution Allowed, ECTAB Active [facility] 01/15/2013 [facility] aspirin 81 mg tablet, chewable 81 mg, Route: PO, Drug form: CHEWTAB, Daily, Dosing Weight 90.909, kg, Start date: 01/15/13 9:00:00, Duration: 30 day, Stop date: 02/13/13 9:00:00 No Longer Active Jason 01/15/2013 [facility] lisinopril 40 mg, 2 tab, Route: PO, Drug form: TAB, Daily, Dosing Weight 90.909, kg, Start date: 01/15/13 9:00:00, Duration: 30 day, Stop date: 02/13/13 9:00:00(Same as: Prinivil, Zestril) Inactive [facility] 01/15/2013 [facility] furosemide 40 mg oral tablet 40 mg, 1 tab, Route: PO, Drug form: TAB, Daily, Dosing Weight 90.909, kg, Start date: 01/15/13 9:00:00, Duration: 30 day, Stop date: 02/13/13 9:00:00(Same as: Lasix) May cause GI upset. Give with food or milk. Inactive [facility] 01/15/2013 [facility] aspirin 81 mg, 1 tab, Route: PO, Drug form: CHEWTAB, Daily, Dosing Weight 90.909, kg, Start date: 01/15/13 9:00:00, Duration: 30 day, Stop date: 02/13/13 9:00:00Take with food. Inactive [facility] 01/15/2013 [facility] Zocor 20 mg, 1 tab, Route: PO, Drug form: TAB, Bedtime, Start date: 01/14/13 21:00:00, Duration: 30 day, Stop date: 02/12/13 21:00:00(Same as: Zocor) No Longer Active Mena 01/15/2013 [facility] Saline Flush 0.9% 5 ml, Route: IVP, Drug Form: INJ, Dosing Weight 90.909, kg, Q12H, Start date: 01/14/13 21:00:00, Duration: 30 day, Stop date: 02/13/13 9:00:00(Same as: BD Posiflush) No Longer Active Jason 01/15/2013 [facility] Geodon 20 mg, 1 cap, Route: PO, Drug form: CAP, Bedtime, Dosing Weight 90.909, kg, Start date: 01/14/13 21:00:00, Duration: 30 day, Stop date: 02/12/13 21:00:00(Same As: Geodon) Give with Food No Longer Active [facility] 01/15/2013 [facility] Remeron 15 mg, 1 tab, Route: PO, Drug form: TAB, Bedtime, Dosing Weight 90.909, kg, Start date: 01/14/13 21:00:00, Duration: 30 day, Stop date: 02/12/13 21:00:00(Same as:Remeron) No Longer Active [facility] 01/15/2013 [facility] clonazepam 2 mg, 4 tab, Route: PO, Drug form: TAB, Bedtime, Dosing Weight 90.909, kg, Start date: 01/14/13 21:00:00, Duration: 30 day, Stop date: 02/12/13 21:00:00(Same As: Klonopin) No Longer Active [facility] 01/15/2013 [facility] carvedilol 3.125 mg, 1 tab, Route: PO, Drug form: TAB, Q12H, Dosing Weight 90.909, kg, Start date: 01/14/13 21:00:00, Duration: 30 day, Stop date: 02/13/13 9:00:00Give with food. (Same As: Coreg) No Longer Active [facility] 01/15/2013 [facility] Lipitor 10 mg, Route: PO, Bedtime, Dosing Weight 90.909, kg, Start date: 01/14/13 21:00:00, Duration: 30 day, Stop date: 02/12/13 21:00:00 Inactive [facility] 01/15/2013 [facility] nitroglycerin SL Tab 0.4 mg, 1 tab, Route: SL, Drug form: TAB, Q5Min, Dosing Weight 90.909, kg, PRN Chest Pain, Start date: 01/14/13 18:25:00, Duration: 3 doses or times, Stop date: Limited # of times(Same as:Nitroquick, Nitrostat) "Do Not Crush" Sublingual tablet No Longer Active Jason 01/14/2013 [facility] Saline Flush 0.9% 5 ml, Route: IVP, Drug Form: INJ, Dosing Weight 90.909, kg, PRN, PRN Line Flush, Start date: 01/14/13 18:25:00, Duration: 30 day, Stop date: 02/13/13 17:24:00(Same as: BD Posiflush) No Longer Active [facility] 01/14/2013 [facility] aspirin 325 mg, 1 tab, Route: PO, Drug form: TAB, ONCE, Dosing Weight 90.909, kg, Priority: STAT, Start date: 01/14/13 16:48:00, Stop date: 01/14/13 16:48:00Take with food. Inactive [facility] 01/14/2013 [facility] Lasix 40 mg, 4 mL, Route: IVP, Drug form: INJ, ONCE, Dosing Weight 90.909, kg, Priority: STAT, Start date: 01/14/13 16:46:00, Stop date: 01/14/13 16:46:00(Same as: Lasix) Inactive [facility] 01/14/2013 [facility] Dextrose 50% Syringe 12.5 gm, 25 mL, Route: IVP, Drug Form: INJ, Dosing Weight 90.909, kg, PRN, PRN Blood Glucose Results, Start date: 01/14/13 16:42:00, Duration: 30 day, Stop date: 02/13/13 15:41:00 No Longer Active [facility] 01/14/2013 [facility] glucagon 1 mg, Route: IM, Drug form: PDR/INJ, PRN, Dosing Weight 90.909, kg, PRN Blood Glucose Results, Start date: 01/14/13 16:42:00, Duration: 30 day, Stop date: 02/13/13 15:41:00 No Longer Active [facility] 01/14/2013 [facility] insulin aspart 4 unit, 0.04 mL, Route: SUB-Q, Drug form: SOLN, TID-Before Meals, Dosing Weight 90.909, kg, PRN Blood Glucose Results, Start date: 01/14/13 16:42:00, Duration: 30 day, Stop date: 02/13/13 16:41:00Rol l in palms of hands gently; Do not shake vigorously. (Same as: NovoLog) "single patient use only" Stable for 28 days at room temperature. Expires in days from Date No Longer Active [facility] 01/14/2013 [facility] Protonix 40 mg, 1 tab, Route: PO, Drug form: ECTAB, Before Dinner, Dosing Weight 90.909, kg, Priority: STAT, Start date: 01/14/13 16:41:00, Duration: 30 day, Stop date: 02/13/13 16:30:00Tablet should not be c hewed or crushed. (Same as: Protonix) No Longer Active [facility] 01/14/2013 [facility] Zofran 4 mg, 2 mL, Route: IVP, Drug form: INJ, Q8H, Dosing Weight 90.909, kg, PRN as needed for nausea/vomiting, Priority: STAT, Start date: 01/14/13 16:41:00, Duration: 30 day, Stop date: 02/13/13 16:40:00(Same as: Zofran) No Longer Active [facility] 01/14/2013 [facility] acetaminophen 325 mg oral tablet 650 mg, 2 tab, Route: PO, Drug form: TAB, Q4H, Dosing Weight 90.909, kg, PRN as needed for fever, Start date: 01/14/13 16:38:00, Duration: 30 day, Stop date: 02/13/13 16:37:00Do not exceed 4 gm/day. (Same as: Tylenol) No Longer Active [facility] 01/14/2013 [facility] metFORmin 500 mg oral tablet 500 mg, 1 tab, PO, BID-Meals, 30 tab, Substitution Allowed Active 01/14/2013 [facility] temazepam 30 mg oral capsule 30 mg, 1 cap, PO, Bedtime, Substitution Allowed, CAP No Longer Active 01/14/2013 [facility] nitroglycerin 2% topical ointment 0.5 inch, Route: TOP, Drug Form: OINT, Dosing Weight 90.909, kg, ONCE, STAT, Start date: 01/14/13 15:24:00, Stop date: 01/14/13 15:24:001 gram is approximately 1 inch of nitroglycerin ointment (20 mg NTG per gram) (Same as:Nitro-Bid) Inactive Jason 01/14/2013 [facility] aspirin 325 mg, 1 tab, Route: PO, Drug form: TAB, ONCE, Dosing Weight 90.909, kg, Priority: STAT, Start date: 01/14/13 15:24:00, Stop date: 01/14/13 15:24:00Take with food. Inactive Jason 01/14/2013 [facility] Sodium Chloride 0.9% IV 25 mL, Route: IV, Start date: 01/14/13 14:20:00, Duration: 30 day, Stop date: 02/13/13 13:19:00, PRN Line Flush No Longer Active [facility] 01/14/2013 [facility] BD Normal Saline Flush 10 mL, Route: IV, Drug Form: INJ, PRN, PRN Line Flush, Start date: 01/14/13 14:20:00, Duration: 30 day, Stop date: 02/13/13 13:19:00(Same as: BD Posiflush) No Longer Active [facility] 01/14/2013 [facility] Saline Flush 0.9% 5 mL, Route: IVP, Drug Form: INJ, Dosing Weight 90.909, kg, Q8H, PRN Line Flush, Start date: 01/14/13 14:13:00, Duration: 30 day, Stop date: 02/13/13 14:12:00, Administer at least once every 8 hoursAdminister at least once every 8 hours(Same as: BD Posiflush) No Longer Active [facility] 01/14/2013 [facility] Coreg 3.125 mg, 1 tab, Route: PO, Drug form: TAB, Q12H, Dosing Weight 108.004, kg, Start date: 01/06/13 21:00:00, Duration: 30 day, Stop date: 02/05/13 20:59:00Give with food. (Same As: Coreg) Inactive Myriam 01/07/2013 [facility] carvedilol 3.125 mg oral tablet 3.125 mg, 1 tab, PO, Q12H, 60 tab, Substitution Allowed, TAB Active Royce 01/06/2013 [facility] Aspirin Low Dose 81 mg oral tablet 81 mg, 1 tab, PO, Daily, 30 tab, Substitution Allowed, TAB Active [place] 01/06/2013 [facility] Remeron 15 mg oral tablet 15 mg, 1 tab, PO, Bedtime, 14 tab, Substitution Allowed, TAB Active [place] 01/06/2013 [facility] Geodon 20 mg oral capsule 20 mg, 1 cap, PO, Bedtime, with food, 14 cap, Substitution Allowed, CAPwith food Active [place] 01/06/2013 [facility] lisinopril 40 mg oral tablet 40 mg, 1 tab, PO, Daily, 14 tab, Substitution Allowed, TAB Active [place] 01/06/2013 [facility] clonazepam 2 mg oral tablet 2 mg, 1 tab, PO, Bedtime, 14 tab, Substitution Allowed, TAB Active [place] 01/06/2013 [facility] furosemide 40 mg oral tablet 40 mg, 1 tab, PO, Daily, 30 tab, Substitution Allowed, TAB Active [place] 01/06/2013 [facility] simethicone 40 mg, 0.5 tab, Route: PO, Drug form: CHEWTAB, Q6H, Dosing Weight 108.004, kg, PRN Gas, Start date: 01/06/13 13:23:00, Duration: 30 day, Stop date: 02/05/13 13:22:00(Same as: Mylicon) Inactive [place] 01/06/2013 [facility] insulin regular 100 units/mL human recombinant 5 unit, 0.05 mL, Route: SUB-Q, Drug form: SOLN, TID-Before Meals, PRN Blood Glucose Results, Start date: 01/05/13 20:10:00, Duration: 30 day, Stop date: 02/04/13 20:09:00(Same as: Humulin R) Roll in palms of hands gently; Do not shake vigorously. "single patient use only" (Restricted to patients requiring a dose > 60 units) Stable for 28 days at room temperature Expires in days from Date No Longer Active [place] 01/06/2013 [facility] Dextrose 50% in Water IV 25 mL, Route: IVP, Start date: 01/05/13 20:10:00, Duration: 30 day, Stop date: 02/04/13 19:09:00, PRN Blood Glucose Results No Longer Active [place] 01/06/2013 [facility] Dextrose 50% in Water IV 50 mL, Route: IVP, Start date: 01/05/13 20:09:00, Duration: 30 day, Stop date: 02/04/13 19:08:00, PRN Blood Glucose Results No Longer Active [place] 01/06/2013 [facility] cyanocobalamin 5 microgram, Route: PO, Drug form: TAB, Daily, Dosing Weight 108.004, kg, Start date: 01/05/13 9:00:00, Duration: 30 day, Stop date: 02/03/13 9:00:00 No Longer Active [place] 01/05/2013 [facility] lisinopril 40 mg, 2 tab, Route: PO, Drug form: TAB, Daily, Dosing Weight 108.004, kg, Start date: 01/05/13 9:00:00, Duration: 30 day, Stop date: 02/03/13 9:00:00(Same as: Prinivil, Zestril) No Longer Active [place] 01/05/2013 [facility] Vitamin B12 1,000 microgram, 1 tab, Route: PO, Drug form: TAB, Daily, Start date: 01/05/13 9:00:00, Duration: 30 day, Stop date: 02/03/13 9:00:00(Same As: Vitamin B-12) No Longer Active [place] 01/05/2013 [facility] aspirin 81 mg, 1 tab, Route: PO, Drug form: ECTAB, Daily, Dosing Weight 108.004, kg, Start date: 01/05/13 9:00:00, Duration: 30 day, Stop date: 02/03/13 9:00:00Do not crush or chew. (Same As: Ecotrin) No Longer Active [place] 01/05/2013 [facility] BD Normal Saline Flush 10 mL, Route: IV, Drug Form: INJ, Q8H, Start date: 01/05/13 0:00:00, Duration: 30 day, Stop date: 02/03/13 16:00:00(Same as: BD Posiflush) No Longer Active [place] 01/05/2013 [facility] furosemide 40 mg, 4 mL, Route: IVP, Drug form: INJ, Q8H, Dosing Weight 129.545, kg, Priority: Routine, Start date: 01/04/13 23:00:00, Duration: 30 day, Stop date: 02/03/13 15:00:00(Same as: Lasix) No Longer Active [place] 01/05/2013 [facility] clonazepam 2 mg, 2 tab, Route: PO, Drug form: TAB, Bedtime, Dosing Weight 108.004, kg, Start date: 01/04/13 21:00:00, Duration: 30 day, Stop date: 02/02/13 21:00:00(Same As: Klonopin) No Longer Active [place] 01/05/2013 [facility] Geodon 20 mg, 1 cap, Route: PO, Drug form: CAP, Bedtime, Dosing Weight 108.004, kg, Start date: 01/04/13 21:00:00, Duration: 30 day, Stop date: 02/02/13 21:00:00(Same As: Geodon) Give with Food No Longer Active [place] 01/05/2013 [facility] Remeron 15 mg, 1 tab, Route: PO, Drug form: TAB, Bedtime, Dosing Weight 108.004, kg, Start date: 01/04/13 21:00:00, Duration: 30 day, Stop date: 02/02/13 21:00:00(Same as:Remeron) No Longer Active [place] 01/05/2013 [facility] hydrALAZINE 20 mg, 1 mL, Route: IV, Drug form: INJ, Q4H, PRN Elevated BP, Start date: 01/04/13 19:42:00, Duration: 30 day, Stop date: 02/03/13 19:41:00(Same as: Apresoline) No Longer Active [place] 01/05/2013 [facility] cyanocobalamin 5 microgram, PO, Daily, Substitution Allowed, TAB Active [place] 01/04/2013 [facility] Remeron 15 mg oral tablet 15 mg, 1 tab, PO, Bedtime, 30 tab, Substitution Allowed, TAB No Longer Active [place] 01/04/2013 [facility] Geodon 20 mg oral capsule 20 mg, 1 cap, PO, Bedtime, with food, 180 cap, Substitution Allowed, CAPwith food No Longer Active [place] 01/04/2013 [facility] ondansetron 4 mg, 2 mL, Route: IVP, Drug form: INJ, Q8H, Dosing Weight 129.545, kg, PRN Nausea & Vomiting, Start date: 01/04/13 17:32:00, Duration: 30 day, Stop date: 02/03/13 17:31:00(Same as: Zofran) No Longer Active [place] 01/04/2013 [facility] docusate 100 mg, 1 cap, Route: PO, Drug form: CAP, BID, Dosing Weight 129.545, kg, PRN Constipation, Start date: 01/04/13 17:32:00, Duration: 30 day, Stop date: 02/03/13 17:31:00(Same as: Colace) (Do Not Crush) No Longer Active [place] 01/04/2013 [facility] acetaminophen 650 mg, 20.3 mL, Route: PO, Drug form: LIQ, Q4H, Dosing Weight 129.545, kg, PRN Pain 1-3/Temp > 100.4 F, Start date: 01/04/13 17:32:00, Duration: 30 day, Stop date: 02/03/13 17:31:00Max [id number]/day (4 gm/day). (Same as: Tylenol) No Longer Active [place] 01/04/2013 [facility] metoprolol 5 mg/5 ml INJ 5 mg, 5 mL, Route: IVP, Drug form: INJ, ONCE, Dosing Weight 129.545, kg, Priority: STAT, Start date: 01/04/13 16:31:00, Stop date: 01/04/13 16:31:00(Same as: Lopressor) Inactive [facility] 01/04/2013 [facility] enalapril 1.25 mg, 1 mL, Route: IVP, Drug form: INJ, ONCE, Dosing Weight 129.545, kg, Priority: STAT, Start date: 01/04/13 16:30:00, Stop date: 01/04/13 16:30:00(Same as: Vasotec-IV) Inactive [facility] 01/04/2013 [facility] furosemide 40 mg, 4 mL, Route: IVP, Drug form: INJ, ONCE, Dosing Weight 129.545, kg, Priority: STAT, Start date: 01/04/13 14:35:00, Stop date: 01/04/13 14:35:00(Same as: Lasix) Inactive [facility] 01/04/2013 [facility] hydromorphone 1 mg, 1 mL, Route: IVP, Drug form: INJ, ONCE, Dosing Weight 129.545, kg, Priority: STAT, Start date: 01/04/13 13:00:00, Stop date: 01/04/13 13:00:00Same as: Dilaudid Inactive [facility] 01/04/2013 [facility] Saline Flush 0.9% 5 mL, Route: IVP, Drug Form: INJ, Dosing Weight 129.545, kg, Q8H, PRN Line Flush, Start date: 01/04/13 13:00:00, Duration: 30 day, Stop date: 02/03/13 12:59:00, Administer at least once every 8 hoursAdminister at least once every 8 hours(Same as: BD Posiflush) No Longer Active [facility] 01/04/2013 [facility] Flagyl 500 mg oral tablet 500 mg, 1 tab, PO, Q8H, 21 tab, Substitution Allowed PO Active [facility] 12/26/2012 [facility] Cipro 500 mg oral tablet 500 mg, 1 tab, PO, Q12H, 14 tab, Substitution Allowed, TAB PO Active [facility] 12/26/2012 [facility] Flagyl 500 mg oral tablet 500 mg, 1 tab, PO, Q8H, 21 tab, Substitution Allowed PO No Longer Active [facility] 12/26/2012 [facility] Cipro 500 mg oral tablet 500 mg, 1 tab, PO, Q12H, 14 tab, Substitution Allowed, TAB PO No Longer Active [facility] 12/26/2012 [facility] Lactated Ringers Injection IV 1,000 mL 1,000 mL, Rate: 25 ml/hr, Infuse over: 40 hr, Route: IV, Dosing Weight 111.364 kg, Total Volume: 1,000, Start date: 12/26/12 9:23:00, Duration: 30 day, Stop date: 01/25/13 9:22:00 IV No Longer Active [place] 12/26/2012 [facility] ondansetron 4 mg, 2 mL, Route: IVP, Drug form: INJ, ONCE, Dosing Weight 111.364, kg, PRN Nausea & Vomiting, Start date: 12/26/12 9:22:00 IVP No Longer Active [place] 12/26/2012 [facility] naloxone 0.04 mg, 0.1 mL, Route: IVP, Drug form: INJ, Q2MIN, Dosing Weight 111.364, kg, PRN Narcotic Reversal, Start date: 12/26/12 9:22:00, Duration: 8 doses or times, Stop date: Limited # of times IVP No Longer Active [place] 12/26/2012 [facility] morphine Sulfate 2 mg, 1 mL, Route: IVP, Drug form: INJ, Q5Min, Dosing Weight 111.364, kg, PRN Pain Score 4-6, Start date: 12/26/12 9:22:00, Duration: 5 doses or times, Stop date: Limited # of times IVP No Longer Active [place] 12/26/2012 [facility] flumazenil 0.2 mg, 2 mL, Route: IVP, Drug form: INJ, PRN, Dosing Weight 111.364, kg, PRN Benzodiazepine Reversal, Initial dose, Start date: 12/26/12 9:22:00, Duration: 30 day, Stop date: 01/25/13 9:21:00 IVP No Longer Active [place] 12/26/2012 [facility] GoLYTELY 2,000 mL, Route: PO, Drug Form: PDR/REC, Dosing Weight 111.364, kg, ONCE, NOW, Start date: 12/25/12 19:36:00, Stop date: 12/25/12 19:36:00 PO No Longer Active [facility] 12/26/2012 [facility] influenza virus vaccine, inactivated 0.5 ml, Route: IM, Drug Form: SUSP, Start date: 12/25/12 9:00:00, Stop date: 12/25/12 9:00:00 Inactive [facility] 12/25/2012 [facility] spironolactone 25 mg, Route: PO, Drug form: TAB, Daily, Dosing Weight 111.364, kg, Start date: 12/25/12 9:00:00, Duration: 30 day, Stop date: 01/23/13 9:00:00 PO No Longer Active Madni 12/25/2012 [facility] lisinopril 40 mg, 2 tab, Route: PO, Drug form: TAB, Daily, Dosing Weight 111.364, kg, Start date: 12/25/12 9:00:00, Duration: 30 day, Stop date: 01/23/13 9:00:00 PO No Longer Active [facility] 12/25/2012 [facility] aspirin 81 mg, 1 tab, Route: PO, Drug form: CHEWTAB, Daily, Dosing Weight 111.364, kg, Start date: 12/25/12 9:00:00, Duration: 30 day, Stop date: 01/23/13 9:00:00 PO No Longer Active [facility] 12/25/2012 [facility] risperidone 3 mg, 3 tab, Route: PO, Drug form: TAB, Bedtime, Dosing Weight 111.364, kg, Start date: 12/24/12 21:00:00, Duration: 30 day, Stop date: 01/22/13 21:00:00 PO No Longer Active [facility] 12/25/2012 [facility] mirtazapine 30 mg, 2 tab, Route: PO, Drug form: TAB, Bedtime, Dosing Weight 111.364, kg, Start date: 12/24/12 21:00:00, Duration: 30 day, Stop date: 01/22/13 21:00:00 PO No Longer Active [facility] 12/25/2012 [facility] clonazepam 2 mg, 4 tab, Route: PO, Drug form: TAB, Bedtime, Dosing Weight 111.364, kg, Start date: 12/24/12 21:00:00, Duration: 30 day, Stop date: 01/22/13 21:00:00 PO No Longer Active [facility] 12/25/2012 [facility] furosemide 40 mg oral tablet 40 mg, 1 tab, Route: PO, Drug form: TAB, BID, Dosing Weight 111.364, kg, Start date: 12/24/12 17:00:00, Duration: 30 day, Stop date: 01/23/13 9:00:00 PO No Longer Active [facility] 12/24/2012 [facility] Prinivil 40 mg, 2 tab, Route: PO, Drug form: TAB, Daily, Dosing Weight 111.364, kg, Start date: 12/24/12 16:00:00, Duration: 30 day, Stop date: 01/23/13 9:00:00 PO No Longer Active [facility] 12/24/2012 [facility] 1 NS 1,000 mL 1,000 mL, Rate: 50 ml/hr, Infuse over: 20 hr, Route: IV, Dosing Weight 111.364 kg, Total Volume: 1,000, Start date: 12/24/12 15:56:00, Duration: 30 day, Stop date: 01/23/13 15:55:00 IV No Longer Active [place] 12/24/2012 [facility] hydrALAZINE 10 mg, 1 tab, Route: PO, Drug form: TAB, Q6H, Dosing Weight 111.364, kg, PRN Elevated BP, for sbp > 160, Start date: 12/24/12 15:10:00, Duration: 30 day, Stop date: 01/23/13 15:09:00 PO No Longer Active [facility] 12/24/2012 [facility] aspirin 325 mg, 1 tab, Route: PO, Drug form: TAB, ONCE, Dosing Weight 111.364, kg, Start date: 12/24/12 15:09:00, Stop date: 12/24/12 15:09:00 PO No Longer Active [facility] 12/24/2012 [facility] Flagyl 500 mg, 1 tab, Route: PO, Drug form: TAB, [id number], Dosing Weight 129.545, kg, Start date: 12/24/12 15:00:00, Duration: 30 day, Stop date: 01/23/13 9:00:00 PO No Longer Active [facility] 12/24/2012 [facility] Cipro I.V. 400 mg/200 mL intravenous solution 400 mg, 200 mL, Route: IV, Drug form: INJ, [id number], Dosing Weight 129.545, kg, Start date: 12/24/12 15:00:00, Duration: 30 day, Stop date: 01/23/13 3:00:00 IV No Longer Active [facility] 12/24/2012 [place] [id number] NS 1,000 mL 1,000 mL, Rate: 100 ml/hr, Infuse over: 10 hr, Route: IV, Dosing Weight 111.364 kg, Total Volume: 1,000, Start date: 12/24/12 14:37:00, Duration: 30 day, Stop date: 01/23/13 14:36:00 IV No Longer Active [facility] 12/24/2012 [facility] Tylenol 650 mg, 2 tab, Route: PO, Drug form: TAB, Q4H, Dosing Weight 129.545, kg, PRN Fever, Start date: 12/24/12 13:56:00, Duration: 30 day, Stop date: 01/23/13 13:55:00 PO No Longer Active [facility] [facility] 12/24/2012 [facility] Saline Flush 0.9% 5 ml, Route: IVP, Drug Form: INJ, Dosing Weight 129.545, kg, PRN, PRN Line Flush, Start date: 12/24/12 13:49:00, Duration: 30 day, Stop date: 01/23/13 13:48:00 IVP No Longer Active [facility] 12/24/2012 [facility] ondansetron 4 mg, 2 mL, Route: IVP, Drug form: INJ, Q8H, Dosing Weight 129.545, kg, PRN Nausea & Vomiting, Start date: 12/24/12 13:49:00, Duration: 30 day, Stop date: 01/23/13 13:48:00 IVP No Longer Active [facility] 12/24/2012 [facility] morphine Sulfate 2 mg, 1 mL, Route: IVP, Drug form: INJ, Q3H, Dosing Weight 129.545, kg, PRN Pain Score 1-5, Start date: 12/24/12 13:49:00, Duration: 30 day, Stop date: 01/23/13 13:48:00 IVP No Longer Active [facility] 12/24/2012 [facility] Sodium Chloride 0.9% IV 25 mL, Route: IV, Start date: 12/24/12 11:10:00, Duration: 30 day, Stop date: 01/23/13 11:09:00, PRN Line Flush IV No Longer Active [facility] 12/24/2012 [facility] BD Normal Saline Flush 10 mL, Route: IV, Drug Form: INJ, PRN, PRN Line Flush, Start date: 12/24/12 11:10:00, Duration: 30 day, Stop date: 01/23/13 11:09:00 IV No Longer Active [facility] 12/24/2012 [facility] Zofran 4 mg, Route: IVP, Drug form: INJ, ONCE, Dosing Weight 129.545, kg, Priority: STAT, Start date: 12/24/12 11:07:00, Stop date: 12/24/12 11:07:00 IVP No Longer Active [facility] 12/24/2012 [facility] Zofran 4 mg, Route: IVP, Drug form: INJ, ONCE, Dosing Weight 129.545, kg, Priority: STAT, Start date: 12/24/12 11:06:00, Stop date: 12/24/12 11:06:00 IVP No Longer Active [facility] 12/24/2012 [facility] digoxin 125 mcg (0.125 mg) oral tablet 125 microgram, 1 tab, PO, Daily, 30 tab, Substitution Allowed, TAB PO Active [facility] 10/20/2012 [facility] potassium chloride 20 mEq/15 mL oral liquid 40 mEq, 30 mL, PO, Daily, 7 mL, Substitution Allowed, LIQ PO Active [facility] 10/20/2012 [facility] Glucophage 500 mg oral tablet 500 mg, 1 tab, PO, BID-Meals, 60 tab, Substitution Allowed, TAB PO Active [facility] 10/20/2012 [facility] calcium-vitamin D 500 mg-125 units oral tablet 1 tab, PO, BID, 30 tab, Substitution Allowed, Maintenance, TAB PO Active [facility] 10/20/2012 [facility] magnesium sulfate 2gm / NS 50ml (premixed) 2 gm, 50 mL, Route: IVPB, Drug form: INJ, ONCE, Dosing Weight 103.21, kg, Start date: 10/20/12 11:00:00, Duration: 2 hr, Stop date: 10/20/12 11:00:00 IVPB No Longer Active [facility] 10/20/2012 [facility] potassium chloride 20 mEq/15 mL oral liquid 40 mEq, 30 mL, Route: PO, Drug form: LIQ, ONCE, Dosing Weight 103.21, kg, Start date: 10/20/12 11:00:00, Stop date: 10/20/12 11:00:00 PO No Longer Active [facility] 10/20/2012 [facility] metFORmin 500 mg, 1 tab, Route: PO, Drug form: TAB, BID- Meals, Dosing Weight 106.676, kg, Start date: 10/20/12 8:00:00, Duration: 30 day, Stop date: 11/18/12 17:00:00 PO No Longer Active [facility] 10/20/2012 [facility] calcium-vitamin D 500 mg-125 units oral tablet 1 tab, Route: PO, Drug Form: TAB, Dosing Weight 106.676, kg, BID, Start date: 10/19/12 17:00:00, Duration: 30 day, Stop date: 11/18/12 9:00:00 PO No Longer Active [facility] 10/19/2012 [facility] potassium chloride 20 mEq/15 mL oral liquid 20 mEq, 15 mL, Route: PO, Drug form: LIQ, ONCE, Dosing Weight 106.676, kg, Start date: 10/19/12 16:01:00, Stop date: 10/19/12 16:01:00 PO No Longer Active [facility] 10/19/2012 [facility] potassium chloride 40 mEq, 30 mL, Route: PO, Drug form: LIQ, Daily, Start date: 10/19/12 16:00:00, Duration: 30 day, Stop date: 11/18/12 9:00:00 PO No Longer Active [facility] 10/19/2012 [facility] Lasix 40 mg, 4 mL, Route: IVP, Drug form: INJ, Q8H, Dosing Weight 106.676, kg, Start date: 10/19/12 16:00:00, Duration: 30 day, Stop date: 11/18/12 8:00:00 IVP No Longer Active [facility] 10/19/2012 [facility] Zaroxolyn 2.5 mg, 1 tab, Route: PO, Drug form: TAB, ONCE, Dosing Weight 106.676, kg, Start date: 10/19/12 15:54:00, Stop date: 10/19/12 15:54:00 PO No Longer Active [facility] 10/19/2012 [facility] potassium chloride 20 mEq oral tablet, extended release 20 mEq, 1 tab, Route: PO, Drug form: ERTAB, ONCE, Dosing Weight 106.676, kg, Start date: 10/19/12 11:54:00, Stop date: 10/19/12 11:54:00 PO No Longer Active [facility] 10/19/2012 [facility] aspirin 81 mg, Route: PO, Drug form: TAB, Daily, Dosing Weight 106.676, kg, Start date: 10/19/12 9:00:00, Duration: 30 day, Stop date: 11/17/12 9:00:00 PO No Longer Active [facility] 10/19/2012 [facility] Tylenol 650 mg, 2 tab, Route: PO, Drug form: TAB, Q6H, PRN Pain, Start date: 10/18/12 22:42:00, Duration: 30 day, Stop date: 11/17/12 22:41:00 PO No Longer Active [facility] 10/19/2012 [facility] risperidone 3 mg, 3 tab, Route: PO, Drug form: TAB, Bedtime, Dosing Weight 106.676, kg, Start date: 10/18/12 21:00:00, Duration: 30 day, Stop date: 11/16/12 21:00:00 PO No Longer Active [facility] 10/19/2012 [facility] flurazepam 15 mg, Route: PO, Drug form: CAP, Bedtime, Dosing Weight 106.676, kg, Start date: 10/18/12 21:00:00, Duration: 30 day, Stop date: 11/16/12 21:00:00 PO No Longer Active [facility] 10/19/2012 [facility] clonazepam 2 mg, 4 tab, Route: PO, Drug form: TAB, Bedtime, Dosing Weight 106.676, kg, Start date: 10/18/12 21:00:00, Duration: 30 day, Stop date: 11/16/12 21:00:00 PO No Longer Active [facility] 10/19/2012 [facility] Restoril 15 mg, 1 cap, Route: PO, Drug form: CAP, Bedtime, Start date: 10/18/12 21:00:00, Duration: 30 day, Stop date: 11/16/12 21:00:00 PO No Longer Active [facility] 10/19/2012 [facility] Levemir 10 unit, 0.1 mL, Route: SUB-Q, Drug form: INJ, Daily, Dosing Weight 106.676, kg, Start date: 10/18/12 13:30:00, Duration: 30 day, Stop date: 11/17/12 9:00:00 SUB-Q No Longer Active [facility] 10/18/2012 [facility] Dextrose 50% Syringe 25 gm, 50 mL, Route: IVP, Drug Form: INJ, Dosing Weight 106.676, kg, PRN, PRN Blood Glucose Results, Start date: 10/18/12 12:44:00, Duration: 30 day, Stop date: 11/17/12 12:43:00 IVP No Longer Active [facility] 10/18/2012 [facility] glucagon 1 mg, Route: IM, Drug form: PDR/INJ, PRN, Dosing Weight 106.676, kg, PRN Blood Glucose Results, Start date: 10/18/12 12:44:00, Duration: 30 day, Stop date: 11/17/12 12:43:00 IM No Longer Active [facility] 10/18/2012 [facility] insulin aspart 8 unit, 0.08 mL, Route: SUB-Q, Drug form: SOLN, TID-Before Meals, Dosing Weight 106.676, kg, PRN Blood Glucose Results, Start date: 10/18/12 12:44:00, Duration: 30 day, Stop date: 11/17/12 12:43:00 SUB-Q No Longer Active [facility] 10/18/2012 [facility] digoxin 125 mcg (0.125 mg) oral tablet 0.125 mg, 1 tab, Route: PO, Drug form: TAB, Daily, Dosing Weight 106.676, kg, Start date: 10/18/12 11:30:00, Duration: 30 day, Stop date: 11/17/12 9:00:00 PO No Longer Active [facility] 10/18/2012 [facility] aspirin 81 mg tablet, enteric coated 81 mg, 1 tab, Route: PO, Drug form: ECTAB, Daily, Dosing Weight 106.676, kg, Start date: 10/18/12 11:30:00, Duration: 30 day, Stop date: 11/17/12 9:00:00 PO No Longer Active [facility] 10/18/2012 [facility] potassium chloride 20 mEq oral tablet, extended release 40 mEq, 2 tab, Route: PO, Drug form: ERTAB, Daily, Dosing Weight 106.676, kg, Start date: 10/18/12 11:30:00, Duration: 30 day, Stop date: 11/17/12 9:00:00 PO No Longer Active [facility] 10/18/2012 [facility] Lasix 40 mg, 4 mL, Route: IVP, Drug form: INJ, Daily, Dosing Weight 106.676, kg, Start date: 10/18/12 11:30:00, Duration: 30 day, Stop date: 11/17/12 9:00:00 IVP No Longer Active [facility] 10/18/2012 [facility] ibuprofen 200 mg oral tablet 200 mg, 1 tab, PO, PRN, as needed for pain, Substitution Allowed PO Active 10/18/2012 [facility] acetaminophen 325 mg oral tablet 325 mg, 1 tab, PO, PRN, as needed for pain, Substitution Allowed PO Active 10/18/2012 [facility] Aspirin Low Dose 81 mg oral tablet 81 mg, 1 tab, PO, Daily, Substitution Allowed PO Active [facility] 10/18/2012 [facility] lisinopril 40 mg oral tablet 40 mg, 1 tab, PO, Daily, Substitution Allowed PO Active 10/18/2012 [facility] risperidone 3 mg oral tablet 3 mg, 1 tab, PO, Bedtime, 60 tab, Substitution Allowed, TAB PO Active [facility] 10/18/2012 [facility] carvedilol 12.5 mg oral tablet 12.5 mg, 1 tab, PO, BID, Substitution Allowed PO No Longer Active 10/18/2012 [facility] spironolactone 25 mg oral tablet 25 mg, 1 tab, PO, Daily, Substitution Allowed PO Active 10/18/2012 [facility] flurazepam 15 mg oral capsule 15 mg, 1 cap, PO, Bedtime, Substitution Allowed, CAP PO Active [facility] 10/18/2012 [facility] mirtazapine 30 mg oral tablet 30 mg, 1 tab, PO, Bedtime, Substitution Allowed PO Active 10/18/2012 [facility] furosemide 40 mg oral tablet 40 mg, 1 tab, PO, BID, Substitution Allowed PO Active 10/18/2012 [facility] temazepam 30 mg oral capsule 30 mg, 1 cap, PO, Bedtime, Substitution Allowed, CAP PO Active 10/18/2012 [facility] Saline Flush 0.9% 5 ml, Route: IVP, Drug Form: INJ, Dosing Weight 102.727, kg, Q12H, Start date: 10/18/12 9:00:00, Duration: 30 day, Stop date: 11/16/12 21:00:00 IVP No Longer Active [facility] 10/18/2012 [facility] spironolactone 25 mg, 1 tab, Route: PO, Drug form: TAB, Daily, Dosing Weight 102.727, kg, Start date: 10/18/12 9:00:00, Duration: 30 day, Stop date: 11/16/12 9:00:00 PO No Longer Active [facility] 10/18/2012 [facility] lisinopril 40 mg, 2 tab, Route: PO, Drug form: TAB, Daily, Dosing Weight 102.727, kg, Start date: 10/18/12 9:00:00, Duration: 30 day, Stop date: 11/16/12 9:00:00 PO No Longer Active [facility] 10/18/2012 [facility] carvedilol 12.5 mg, 1 tab, Route: PO, Drug form: TAB, Q12H, Dosing Weight 102.727, kg, Start date: 10/18/12 9:00:00, Duration: 30 day, Stop date: 11/16/12 21:00:00 PO No Longer Active [facility] 10/18/2012 [facility] Saline Flush 0.9% 5 ml, Route: IVP, Drug Form: INJ, Dosing Weight 102.727, kg, PRN, PRN Line Flush, Start date: 10/18/12 1:26:00, Duration: 30 day, Stop date: 11/17/12 1:25:00 IVP No Longer Active [facility] 10/18/2012 [facility] temazepam 15 mg, 1 cap, Route: PO, Drug form: CAP, Bedtime, Dosing Weight 102.727, kg, PRN Insomnia, Start date: 10/18/12 1:26:00, Duration: 30 day, Stop date: 11/17/12 1:25:00 PO No Longer Active [facility] 10/18/2012 [facility] ondansetron 4 mg, 2 mL, Route: IVP, Drug form: INJ, Q8H, Dosing Weight 102.727, kg, PRN Nausea & Vomiting, Start date: 10/18/12 1:26:00, Duration: 30 day, Stop date: 11/17/12 1:25:00 IVP No Longer Active [facility] 10/18/2012 [facility] Coreg 12.5 mg, 1 tab, Route: PO, Drug form: TAB, ONCE, Dosing Weight 102.727, kg, Start date: 10/17/12 23:39:00, Stop date: 10/17/12 23:39:00 PO No Longer Active [facility] 10/18/2012 [facility] hydrALAZINE 20 mg, 1 mL, Route: IVP, Drug form: INJ, ONCE, Dosing Weight 102.727, kg, Priority: STAT, Start date: 10/17/12 23:39:00, Stop date: 10/17/12 23:39:00 IVP No Longer Active [facility] 10/18/2012 [facility] mirtazapine 30 mg, 2 tab, Route: PO, Drug form: TAB, ONCE, Dosing Weight 102.727, kg, Start date: 10/17/12 23:38:00, Stop date: 10/17/12 23:38:00 PO No Longer Active [facility] 10/18/2012 [facility] Lasix 40 mg, 4 mL, Route: IVP, Drug form: INJ, ONCE, Dosing Weight 102.727, kg, Priority: STAT, Start date: 10/17/12 22:54:00, Stop date: 10/17/12 22:54:00 IVP No Longer Active [facility] 10/18/2012 [facility] Sodium Chloride 0.9% IV 25 mL, Route: IV, Start date: 10/17/12 22:22:00, Duration: 30 day, Stop date: 11/16/12 22:21:00, PRN Line Flush IV No Longer Active [facility] 10/18/2012 [facility] BD Normal Saline Flush 10 mL, Route: IV, Drug Form: INJ, PRN, PRN Line Flush, Start date: 10/17/12 22:22:00, Duration: 30 day, Stop date: 11/16/12 22:21:00 IV No Longer Active [facility] 10/18/2012 [facility] clonidine 0.1 mg, 1 tab, Route: PO, Drug form: TAB, ONCE, Dosing Weight 102.727, kg, Priority: STAT, Start date: 10/17/12 22:19:00, Stop date: 10/17/12 22:19:00 PO No Longer Active [facility] 10/18/2012 [facility] GI cocktail 30 mL, Route: PO, Drug Form: SUSP, Dosing Weight 102.727, kg, ONCE, STAT, Start date: 10/17/12 22:19:00, Stop date: 10/17/12 22:19:00 PO No Longer Active [facility] 10/18/2012 [facility] aspirin 324 mg, 4 tab, Route: PO, Drug form: CHEWTAB, ONCE, Dosing Weight 102.727, kg, Priority: STAT, Start date: 10/17/12 22:18:00, Stop date: 10/17/12 22:18:00 PO No Longer Active [facility] 10/18/2012 [facility] Saline Flush 0.9% 5 mL, Route: IVP, Drug Form: INJ, Dosing Weight 102.727, kg, Q8H, PRN Line Flush, Start date: 10/17/12 22:18:00, Duration: 30 day, Stop date: 11/16/12 22:17:00, Administer at least once every 8 hoursAdminister at least once every 8 hours IVP No Longer Active [facility] 10/18/2012 [facility] Ultram 50 mg oral tablet 50 mg, 1 tab, PO, Q4H, PRN, 20 tab, pain, Substitution Allowed PO Active [facility] 12/11/2011 [facility] folic acid 1 mg oral tablet 1 mg, 1 tab, PO, Daily, 10 tab, Substitution Allowed, TAB PO Active [facility] 12/11/2011 [facility] risperidone 1 mg oral tablet 2 mg, 2 tab, PO, Daily, 10 tab, Substitution Allowed, TAB PO Active [facility] 12/11/2011 [facility] atorvastatin 10 mg oral tablet 10 mg, 1 tab, PO, QPM, 30 tab, Substitution Allowed, TAB PO Active [facility] 12/11/2011 [facility] Lasix 40 mg oral tablet 60 mg, 3 tab, Route: PO, Drug form: TAB, Daily, Dosing Weight 105.909, kg, Start date: 12/11/11 9:00:00, Duration: 30 day, Stop date: 01/09/12 9:00:00 PO No Longer Active [facility] 12/11/2011 [facility] Tylenol 650 mg, 2 tab, Route: PO, Drug form: TAB, Q4H, PRN Pain, Start date: 12/11/11 5:23:00, Duration: 30 day, Stop date: 01/10/12 5:22:00 PO No Longer Active [facility] 12/11/2011 [facility] Sodium Chloride 0.9% IV 25 mL, Route: IV, Start date: 12/10/11 12:46:00, Duration: 30 day, Stop date: 01/09/12 12:45:00, PRN Line Flush IV No Longer Active [facility] 12/10/2011 [facility] Lasix 40 mg oral tablet 60 mg, 1.5 tab, PO, Daily, 45 tab, 2, 2, Substitution Allowed, TAB PO Active [facility] 12/10/2011 [facility] aspirin 81 mg tablet, enteric coated 81 mg, 1 tab, PO, Daily, 0 tab, Substitution Allowed, ECTAB PO Active [facility] 12/10/2011 [facility] Lasix 40 mg oral tablet 40 mg, 1 tab, PO, Daily, 90 tab, Substitution Allowed, TAB PO No Longer Active [facility] 12/10/2011 [facility] spironolactone 25 mg oral tablet 25 mg, 1 tab, PO, Daily, 90 tab, Substitution Allowed, TAB PO Active [facility] 12/10/2011 [facility] Coreg 12.5 mg oral tablet 12.5 mg, 1 tab, PO, BID, 180 tab, Substitution Allowed, TAB PO Active [facility] 12/10/2011 [facility] lisinopril 10 mg oral tablet 10 mg, 1 tab, PO, Daily, 90 tab, Substitution Allowed, TAB PO Active [facility] 12/10/2011 [facility] folic acid 1 mg, 1 tab, Route: PO, Drug form: TAB, Daily, Dosing Weight 105.909, kg, Priority: NOW, Start date: 12/10/11 11:00:00, Duration: 30 day, Stop date: 01/09/12 9:00:00 PO No Longer Active [facility] 12/10/2011 [facility] thiamine 100 mg, 1 mL, Route: IM, Drug form: INJ, Daily, Dosing Weight 105.909, kg, Start date: 12/10/11 11:00:00, Duration: 30 day, Stop date: 01/08/12 11:00:00 IM No Longer Active [facility] 12/10/2011 [facility] Zaroxolyn 5 mg, 1 tab, Route: PO, Drug form: TAB, After Breakfast, Dosing Weight 105.909, kg, Start date: 12/10/11 8:30:00, Duration: 30 day, Stop date: 01/08/12 8:30:00 PO No Longer Active [facility] 12/10/2011 [facility] atorvastatin 10 mg, 1 tab, Route: PO, Drug form: TAB, QPM, Dosing Weight 105.909, kg, Start date: 12/09/11 17:00:00, Duration: 30 day, Stop date: 01/07/12 17:00:00 PO No Longer Active [facility] 12/09/2011 [facility] carvedilol 12.5 mg, 1 tab, Route: PO, Drug form: TAB, BID, Dosing Weight 105.909, kg, Start date: 12/09/11 9:00:00, Duration: 30 day, Stop date: 01/07/12 17:00:00 PO No Longer Active [facility] 12/09/2011 [facility] spironolactone 25 mg, 1 tab, Route: PO, Drug form: TAB, Daily, Dosing Weight 105.909, kg, Start date: 12/09/11 9:00:00, Duration: 30 day, Stop date: 01/07/12 9:00:00 PO No Longer Active [facility] 12/09/2011 [facility] risperidone 2 mg, 2 tab, Route: PO, Drug form: TAB, Daily, Dosing Weight 105.909, kg, Start date: 12/09/11 9:00:00, Duration: 30 day, Stop date: 01/07/12 9:00:00 PO No Longer Active [facility] 12/09/2011 [facility] potassium chloride 20 mEq oral tablet, extended release 20 mEq, 1 tab, Route: PO, Drug form: ERTAB, ONCE, Dosing Weight 105.909, kg, Start date: 12/09/11 7:10:00, Stop date: 12/09/11 7:10:00 PO No Longer Active [facility] 12/09/2011 [facility] Robitussin-DM 10 mL, Route: PO, Drug Form: LIQ, Q4H, PRN Cough, Start date: 12/08/11 22:26:00, Duration: 30 day, Stop date: 01/07/12 22:25:00 PO No Longer Active [facility] 12/09/2011 [facility] clonazepam 2 mg, 4 tab, Route: PO, Drug form: TAB, Bedtime, Dosing Weight 105.909, kg, PRN Insomnia, Start date: 12/08/11 21:49:00, Duration: 30 day, Stop date: 01/07/12 21:48:00 PO No Longer Active [facility] 12/09/2011 [facility] atorvastatin 10 mg oral tablet Daily, Substitution Allowed No Longer Active [facility] 12/08/2011 [facility] risperidone 2 mg, Daily, Substitution Allowed No Longer Active [facility] 12/08/2011 [facility] clonazepam 2 mg oral tablet Bedtime, Substitution Allowed Active [facility] 12/08/2011 [facility] mirtazapine 30 mg oral tablet Bedtime, Substitution Allowed No Longer Active 12/08/2011 [facility] flurazepam 30 mg oral capsule Bedtime, Substitution Allowed No Longer Active 12/08/2011 [facility] spironolactone 25 mg oral tablet Daily, Substitution Allowed No Longer Active [facility] 12/08/2011 [facility] furosemide 40 mg, Daily, Substitution Allowed No Longer Active 12/08/2011 [facility] carvedilol 25 mg oral tablet BID, Substitution Allowed No Longer Active [facility] 12/08/2011 [facility] Saline Flush 0.9% 5 ml, Route: IVP, Drug Form: INJ, Dosing Weight 105.909, kg, Q12H, Start date: 12/08/11 9:00:00, Duration: 30 day, Stop date: 01/06/12 21:00:00 IVP No Longer Active [facility] 12/08/2011 [facility] furosemide 40 mg, 4 mL, Route: IVP, Drug form: INJ, Q12H, Dosing Weight 105.909, kg, Start date: 12/08/11 9:00:00, Duration: 30 day, Stop date: 01/06/12 21:00:00 IVP No Longer Active [facility] 12/08/2011 [facility] famotidine 20 mg, 1 tab, Route: PO, Drug form: TAB, Q12H, Dosing Weight 105.909, kg, Start date: 12/08/11 9:00:00, Duration: 30 day, Stop date: 01/06/12 21:00:00 PO No Longer Active [facility] 12/08/2011 [facility] enoxaparin 40 mg, 0.4 mL, Route: SUB-Q, Drug form: INJ, [id number], Dosing Weight 105.909, kg, Start date: 12/08/11 8:00:00, Duration: 30 day, Stop date: 01/06/12 8:00:00 SUB-Q No Longer Active [facility] 12/08/2011 [facility] aspirin 81 mg tablet, chewable 81 mg, 1 tab, Route: PO, Drug form: CHEWTAB, Breakfast, Dosing Weight 105.909, kg, Start date: 12/08/11 8:00:00, Duration: 30 day, Stop date: 01/06/12 8:00:00 PO No Longer Active [facility] 12/08/2011 [facility] lisinopril 10 mg, 1 tab, Route: PO, Drug form: TAB, Daily, Dosing Weight 105.909, kg, Priority: NOW, Start date: 12/08/11 7:51:00, Duration: 30 day, Stop date: 01/06/12 9:00:00 PO No Longer Active [facility] 12/08/2011 [facility] Saline Flush 0.9% 5 ml, Route: IVP, Drug Form: INJ, Dosing Weight 105.909, kg, PRN, PRN Line Flush, Start date: 12/08/11 2:57:00, Duration: 30 day, Stop date: 01/07/12 2:56:00 IVP No Longer Active [facility] 12/08/2011 [facility] ondansetron 4 mg, 2 mL, Route: IVP, Drug form: INJ, Q8H, Dosing Weight 105.909, kg, PRN Nausea & Vomiting, Start date: 12/08/11 2:57:00, Duration: 30 day, Stop date: 01/07/12 2:56:00 IVP No Longer Active [facility] 12/08/2011 [facility] ibuprofen 600 mg, 1 tab, Route: PO, Drug form: TAB, ONCE, Dosing Weight 105.909, kg, Priority: STAT, Start date: 12/08/11 0:54:00, Stop date: 12/08/11 0:54:00 PO No Longer Active [facility] 12/08/2011 [facility] Lasix 40 mg, Route: IVP, Drug form: INJ, ONCE, Dosing Weight 105.909, kg, Priority: STAT, Start date: 12/07/11 23:26:00, Stop date: 12/07/11 23:26:00 IVP No Longer Active [facility] 12/08/2011 [facility] nitroglycerin 2% ointment 1 inch, Route: TOP, Drug Form: OINT, Dosing Weight 105.909, kg, ONCE, STAT, Start date: 12/07/11 22:27:00, Stop date: 12/07/11 22:27:00 TOP No Longer Active [facility] 12/08/2011 [facility] aspirin 81 mg tablet, chewable 324 mg, 4 tab, Route: PO, Drug form: CHEWTAB, ONCE, Dosing Weight 105.909, kg, Priority: STAT, Start date: 12/07/11 22:26:00, Stop date: 12/07/11 22:26:00 PO No Longer Active [facility] 12/08/2011 [facility] Saline Flush 0.9% 5 ml, Route: IVP, Drug Form: INJ, Dosing Weight 105.909, kg, PRN, PRN Line Flush, Start date: 12/07/11 22:07:00, Duration: 30 day, Stop date: 01/06/12 22:06:00 IVP No Longer Active Adame 12/08/2011 [facility] aspirin 325 mg tablet 325 mg, 1 tab, Route: PO, Drug form: TAB, ONCE, Dosing Weight 105.909, kg, Priority: STAT, Start date: 12/07/11 22:07:00, Stop date: 12/07/11 22:07:00 PO No Longer Active Adame 12/08/2011 [facility] A/B Otic solution 2 drp, OTIC, Q4H, PRN for pain, 15 ml, Substitute Allowed, SOLN OTIC Active [facility] 05/15/2011 [facility] ibuprofen 800 mg oral tablet 800 mg, PO, TID, PRN, 10 tab, Pain, Substitution Allowed, Take with foodTake with food PO Active Xie 05/15/2011 [facility] Cortisporin Otic solution 2 drp, OTIC, QID, 10 ml, Substitute Allowed OTIC Active [facility] 05/15/2011 [facility] amoxicillin 500 mg oral tablet 500 mg, 1 tab, PO, TID, 30 tab, Substitution Allowed, TAB PO Active [facility] 05/15/2011 [facility] Allergies, Adverse Reactions, Alerts Substance Category Reaction Severity Reaction type Status Date Reported Comments Source potassium chloride drug allergy Allergy [facility] sodium chloride drug allergy Allergy [facility] Sodium Chloride Compound Assertion Drug allergy Active [facility] Immunizations Immunization Date Given Site Status Last Updated Comments Source pneumococcal 23-valent vaccine 06/09/2017 Left Deltoid completed [facility] influenza virus vaccine, inactivated 06/09/2017 Right Deltoid completed [facility] pneumococcal 23-valent vaccine 09/11/2016 Not Given [facility] pneumococcal 23-valent vaccine 09/11/2016 Not Given [facility] influenza virus vaccine, inactivated 12/25/2012 completed [facility] influenza virus vaccine, inactivated 12/25/2012 Right deltoid completed [facility] Results Order Name Results Value Reference Range Date Interpretation Comments Source CARDIAC ENZYMES Troponin-I 0.03 0.00 - 0.40 10/01/2017 [facility] CARDIAC ENZYMES CK MB Index 1.0 0.0 - 2.5 10/01/2017 [facility] CARDIAC ENZYMES Total CK 262 12 - 191 10/01/2017 [facility] CARDIAC ENZYMES CK MB 2.6 0.5 - 3.6 10/01/2017 [facility] CARDIAC ENZYMES Troponin-I 0.02 0.00 - 0.40 10/01/2017 [facility] CHEM PANEL Magnesium Lvl 1.8 1.8 - 2.4 10/01/2017 [facility] CHEM PANEL eGFR 62 10/01/2017 Result Comment: The eGFR is calculated using the CKD-EPI formula. In most young, healthy individuals the eGFR will be >90 mL/min/1.73m2. The eGFR declines with age. An eGFR of 60-89 may be normal in some populations, particularly the elderly, for whom the CKD-EPI formula has not been extensively validated. Use of the eGFR is not recommended in the following populations:

Individuals with unstable creatinine concentrations, including patients and those with serious co-morbid conditions.

Patients with extremes in muscle mass or diet.

The data above are obtained from the National Kidney Disease Education Program (NKDEP) which additionally recommends that when the eGFR is used in patients with extremes of body mass index for purposes of drug dosing, the eGFR should be multiplied by the estimated BMI. [facility] CHEM PANEL CO2 23 24 - 32 10/01/2017 [facility] CHEM PANEL Calcium Lvl 8.3 8.5 - 10.5 10/01/2017 [facility] CHEM PANEL AGAP 11.9 10.0 - 20.0 10/01/2017 [facility] CHEM PANEL B/C Ratio 12 6 - 25 10/01/2017 [facility] CHEM PANEL Potassium Lvl 3.9 3.5 - 5.1 10/01/2017 [facility] CHEM PANEL Chloride Lvl 106 95 - 109 10/01/2017 [facility] CHEM PANEL Sodium Lvl 137 135 - 145 10/01/2017 [facility] CHEM PANEL Albumin Lvl 3.8 3.5 - 5.0 10/01/2017 [facility] CHEM PANEL ALT 38 0 - 65 10/01/2017 [facility] CHEM PANEL AST 28 0 - 37 10/01/2017 [facility] CHEM PANEL Creatinine Lvl 1.30 0.50 - 1.40 10/01/2017 [facility] CHEM PANEL Glucose Lvl 80 70 - 99 10/01/2017 [facility] CHEM PANEL BUN 15 7 - 22 10/01/2017 [facility] CHEM PANEL A/G Ratio 1.1 0.7 - 1.6 10/01/2017 [facility] CHEM PANEL Globulin 3.5 2.7 - 4.2 10/01/2017 [facility] CHEM PANEL Bili Total 1.3 0.2 - 1.3 10/01/2017 [facility] CHEM PANEL Total Protein 7.3 6.4 - 8.4 10/01/2017 [facility] CHEM PANEL Alk Phos 158 39 - 136 10/01/2017 [facility] CHEM PANEL Phosphorus 3.5 2.5 - 4.5 10/01/2017 [facility] CHEM PANEL Lipase Lvl 87 73 - 393 10/01/2017 [facility] HEMATOLOGY PTT 38.8 22.9 - 35.8 10/01/2017 [facility] HEMATOLOGY PT 18.4 12.0 - 14.7 10/01/2017 [facility] INR 1.52 0.85 - 1.17 10/01/2017 [facility] Basophils # 0.0 0.0 - 0.2 09/30/2017 [facility] Eosinophils # 0.1 0.0 - 0.5 09/30/2017 [facility] Monocytes # 0.7 0.0 - 0.8 09/30/2017 [facility] Lymphocytes # 1.2 1.0 - 5.5 09/30/2017 [facility] Monocytes 6.8 2.0 - 12.0 09/30/2017 [facility] Lymphocytes 11.3 20.0 - 40.0 09/30/2017 [facility] Segs 81.0 45.0 - 75.0 09/30/2017 [facility] Eosinophils 0.8 0.0 - 4.0 09/30/2017 [facility] Basophils 0.1 0.0 - 1.0 09/30/2017 [facility] Segs-Bands # 8.3 1.5 - 8.1 09/30/2017 [facility] MCV 89.8 80.0 - 94.0 09/30/2017 [facility] Hgb 13.7 14.0 - 18.0 09/30/2017 [facility] WBC 10.2 3.7 - 10.4 09/30/2017 [facility] Hct 41.0 42.0 - 54.0 09/30/2017 [facility] RBC 4.56 4.70 - 6.10 09/30/2017 [facility] Platelet 210 133 - 450 09/30/2017 [facility] MCHC 33.4 32.0 - 36.0 09/30/2017 [facility] RDW 18.3 11.5 - 14.5 09/30/2017 [facility] MCH 30.0 27.0 - 31.0 09/30/2017 [facility] HEMATOLOGY MPV 7.9 7.4 - 10.4 09/30/2017 [facility] CHEM PANEL eGFR 57 06/21/2017 Result Comment: The eGFR is calculated using the CKD-EPI formula. In most young, healthy individuals the eGFR will be >90 mL/min/1.73m2. The eGFR declines with age. An eGFR of 60-89 may be normal in some populations, particularly the elderly, for whom the CKD-EPI formula has not been extensively validated. Use of the eGFR is not recommended in the following populations:

Individuals with unstable creatinine concentrations, including patients and those with serious co-morbid conditions.

Patients with extremes in muscle mass or diet.

The data above are obtained from the National Kidney Disease Education Program (NKDEP) which additionally recommends that when the eGFR is used in patients with extremes of body mass index for purposes of drug dosing, the eGFR should be multiplied by the estimated BMI. [facility] CHEM PANEL Glucose Lvl 147 70 - 99 06/21/2017 [facility] CHEM PANEL Sodium Lvl 139 135 - 145 06/21/2017 [facility] CHEM PANEL Creatinine Lvl 1.40 0.50 - 1.40 06/21/2017 [facility] CHEM PANEL Chloride Lvl 102 95 - 109 06/21/2017 [facility] CHEM PANEL Potassium Lvl 4.2 3.5 - 5.1 06/21/2017 [facility] CHEM PANEL BUN 21 7 - 22 06/21/2017 [facility] CHEM PANEL Calcium Lvl 7.9 8.5 - 10.5 06/21/2017 [facility] CHEM PANEL CO2 30 24 - 32 06/21/2017 [facility] CHEM PANEL AGAP 11.2 10.0 - 20.0 06/21/2017 [facility] CARDIAC ENZYMES CK MB Index 1.2 0.0 - 2.5 06/21/2017 [facility] CARDIAC ENZYMES CK MB 2.7 0.5 - 3.6 06/21/2017 [facility] CARDIAC ENZYMES Troponin-I 0.02 0.00 - 0.40 06/21/2017 [facility] CARDIAC ENZYMES Total CK 221 12 - 191 06/21/2017 [facility] CARDIAC ENZYMES Total CK 195 12 - 191 06/20/2017 [facility] CARDIAC ENZYMES Troponin-I 0.03 0.00 - 0.40 06/20/2017 [facility] CARDIAC ENZYMES CK MB Index 1.2 0.0 - 2.5 06/20/2017 [facility] CARDIAC ENZYMES CK MB 2.4 0.5 - 3.6 06/20/2017 [facility] CARDIAC ENZYMES Troponin-I 0.03 0.00 - 0.40 06/20/2017 [facility] CARDIAC ENZYMES CK MB 2.6 0.5 - 3.6 06/20/2017 [facility] CARDIAC ENZYMES Total CK 214 12 - 191 06/20/2017 [facility] CARDIAC ENZYMES CK MB Index 1.2 0.0 - 2.5 06/20/2017 [facility] CHEM PANEL Albumin Lvl 3.6 3.5 - 5.0 06/20/2017 [facility] CHEM PANEL ALT 46 0 - 65 06/20/2017 [facility] CHEM PANEL Total Protein 7.1 6.4 - 8.4 06/20/2017 [facility] CHEM PANEL Globulin 3.5 2.7 - 4.2 06/20/2017 [facility] CHEM PANEL Bili Total 1.1 0.2 - 1.3 06/20/2017 [facility] CHEM PANEL Alk Phos 131 39 - 136 06/20/2017 [facility] CHEM PANEL AST 20 0 - 37 06/20/2017 [facility] CHEM PANEL A/G Ratio 1.0 0.7 - 1.6 06/20/2017 [facility] CHEM PANEL Bili Indirect 0.8 0.0 - 1.0 06/20/2017 [facility] CHEM PANEL Bili Direct 0.3 0.0 - 0.3 06/20/2017 [facility] CHEM PANEL eGFR 53 06/20/2017 Result Comment: The eGFR is calculated using the CKD-EPI formula. In most young, healthy individuals the eGFR will be >90 mL/min/1.73m2. The eGFR declines with age. An eGFR of 60-89 may be normal in some populations, particularly the elderly, for whom the CKD-EPI formula has not been extensively validated. Use of the eGFR is not recommended in the following populations:

Individuals with unstable creatinine concentrations, including patients and those with serious co-morbid conditions.

Patients with extremes in muscle mass or diet.

The data above are obtained from the National Kidney Disease Education Program (NKDEP) which additionally recommends that when the eGFR is used in patients with extremes of body mass index for purposes of drug dosing, the eGFR should be multiplied by the estimated BMI. [facility] CHEM PANEL AGAP 13.1 10.0 - 20.0 06/20/2017 [facility] CHEM PANEL Glucose Lvl 176 70 - 99 06/20/2017 [facility] CHEM PANEL BUN 27 7 - 22 06/20/2017 [facility] CHEM PANEL CO2 29 24 - 32 06/20/2017 [facility] CHEM PANEL Potassium Lvl 4.1 3.5 - 5.1 06/20/2017 [facility] CHEM PANEL Creatinine Lvl 1.50 0.50 - 1.40 06/20/2017 [facility] CHEM PANEL Sodium Lvl 137 135 - 145 06/20/2017 [facility] CHEM PANEL Chloride Lvl 99 95 - 109 06/20/2017 [facility] CHEM PANEL Calcium Lvl 8.4 8.5 - 10.5 06/20/2017 [facility] HEMATOLOGY MPV 8.2 7.4 - 10.4 06/20/2017 [facility] RDW 14.9 11.5 - 14.5 06/20/2017 [facility] Platelet 203 133 - 450 06/20/2017 [facility] WBC 10.1 3.7 - 10.4 06/20/2017 [facility] RBC 4.31 4.70 - 6.10 06/20/2017 [facility] Hct 41.2 42.0 - 54.0 06/20/2017 [facility] MCV 95.6 80.0 - 94.0 06/20/2017 [facility] Hgb 13.5 14.0 - 18.0 06/20/2017 [facility] MCH 31.4 27.0 - 31.0 06/20/2017 [facility] MCHC 32.8 32.0 - 36.0 06/20/2017 [facility] Monocytes 5.6 2.0 - 12.0 06/20/2017 [facility] HEMATOLOGY Segs 80.4 45.0 - 75.0 06/20/2017 [facility] Lymphocytes 12.0 20.0 - 40.0 06/20/2017 [facility] Eosinophils 2.0 0.0 - 4.0 06/20/2017 [facility] Segs-Bands # 8.1 1.5 - 8.1 06/20/2017 [facility] HEMATOLOGY Basophils 0.0 0.0 - 1.0 06/20/2017 [facility] Lymphocytes # 1.2 1.0 - 5.5 06/20/2017 [facility] HEMATOLOGY Monocytes # 0.6 0.0 - 0.8 06/20/2017 [facility] HEMATOLOGY Eosinophils # 0.2 0.0 - 0.5 06/20/2017 [facility] HEMATOLOGY Basophils # 0.0 0.0 - 0.2 06/20/2017 [facility] TOXICOLOGY Digoxin Lvl 0.5 0.8 - 2.0 06/20/2017 [facility] CARDIAC ENZYMES Troponin-I 0.03 0.00 - 0.40 06/09/2017 [facility] CARDIAC ENZYMES Troponin-I <0.02 0.00 - 0.40 06/09/2017 [facility] DRUG SCREEN UDS Note See Note *NA* (06/09/17 4:30 AM) 06/09/2017 [facility] DRUG SCREEN U Amph Scr Negative *NA* (06/09/17 4:30 AM) Negative 06/09/2017 [facility] DRUG SCREEN U Phencyc Scr Negative *NA* (06/09/17 4:30 AM) Negative 06/09/2017 [facility] DRUG SCREEN U Cocaine Scr Negative *NA* (06/09/17 4:30 AM) Negative 06/09/2017 [facility] DRUG SCREEN U Opiate Scr Negative *NA* (06/09/17 4:30 AM) Negative 06/09/2017 [facility] DRUG SCREEN U Brigette Scr Negative *NA* (06/09/17 4:30 AM) Negative 06/09/2017 [facility] DRUG SCREEN U Benzodia Scr Negative *NA* (06/09/17 4:30 AM) Negative 06/09/2017 [facility] DRUG SCREEN U Cannab Scr Negative *NA* (06/09/17 4:30 AM) Negative 06/09/2017 [facility] URINE AND STOOL UA Color Yellow 06/09/2017 [facility] URINE AND STOOL UA Urobilinogen 2.0 0.1 - 1.0 06/09/2017 [facility] URINE AND STOOL UA Blood Negative (06/09/17 4:30 AM) Negative 06/09/2017 [facility] URINE AND STOOL UA Mucus Few /LPF None Seen /LPF 06/09/2017 [facility] URINE AND STOOL UA RBC <1 0 - 2 06/09/2017 [facility] URINE AND STOOL UA Bili Negative *NA* (06/09/17 4:30 AM) Negative 06/09/2017 [facility] URINE AND STOOL UA Ketones Negative mg/dL Negative mg/dL 06/09/2017 [facility] URINE AND STOOL UA Protein 30 mg/dL Negative mg/dL 06/09/2017 [facility] URINE AND STOOL UA Glucose Negative mg/dL Negative mg/dL 06/09/2017 [facility] URINE AND STOOL UA pH 6.0 5.0 - 8.0 06/09/2017 [facility] URINE AND STOOL UA Spec Grav 1.014 <=1.030 06/09/2017 [facility] URINE AND STOOL UA Turbidity Clear (06/09/17 4:30 AM) Clear 06/09/2017 [facility] URINE AND STOOL UA Leuk Est Negative (06/09/17 4:30 AM) Negative 06/09/2017 [facility] URINE AND STOOL UA WBC <1 0 - 5 06/09/2017 [facility] URINE AND STOOL UA Nitrite Negative (06/09/17 4:30 AM) Negative 06/09/2017 [facility] URINE AND STOOL UA Sq Epi Occasional /LPF Few /LPF 06/09/2017 [facility] CARDIAC ENZYMES CK MB Index 0.6 0.0 - 2.5 06/09/2017 [facility] CARDIAC ENZYMES BNP 726 <=100 pg/mL 06/09/2017 [facility] CARDIAC ENZYMES Troponin-I 0.03 0.00 - 0.40 06/09/2017 [facility] CARDIAC ENZYMES CK MB 1.8 0.5 - 3.6 06/09/2017 [facility] CARDIAC ENZYMES Total CK 327 12 - 191 06/09/2017 [facility] CHEM PANEL A/G Ratio 1.1 0.7 - 1.6 06/09/2017 [facility] CHEM PANEL Bili Indirect 0.9 0.0 - 1.0 06/09/2017 [facility] CHEM PANEL Bili Direct 0.1 0.0 - 0.3 06/09/2017 [facility] CHEM PANEL Globulin 3.5 2.7 - 4.2 06/09/2017 [facility] CHEM PANEL Bili Total 1.0 0.2 - 1.3 06/09/2017 [facility] CHEM PANEL Alk Phos 109 39 - 136 06/09/2017 [facility] CHEM PANEL Albumin Lvl 3.8 3.5 - 5.0 06/09/2017 [facility] CHEM PANEL Total Protein 7.3 6.4 - 8.4 06/09/2017 [facility] CHEM PANEL AST 46 0 - 37 06/09/2017 [facility] CHEM PANEL ALT 18 0 - 65 06/09/2017 [facility] CHEM PANEL Lipase Lvl 105 73 - 393 06/09/2017 [facility] CHEM PANEL eGFR 53 06/09/2017 Result Comment: The eGFR is calculated using the CKD-EPI formula. In most young, healthy individuals the eGFR will be >90 mL/min/1.73m2. The eGFR declines with age. An eGFR of 60-89 may be normal in some populations, particularly the elderly, for whom the CKD-EPI formula has not been extensively validated. Use of the eGFR is not recommended in the following populations:

Individuals with unstable creatinine concentrations, including patients and those with serious co-morbid conditions.

Patients with extremes in muscle mass or diet.

The data above are obtained from the National Kidney Disease Education Program (NKDEP) which additionally recommends that when the eGFR is used in patients with extremes of body mass index for purposes of drug dosing, the eGFR should be multiplied by the estimated BMI. [facility] CHEM PANEL Calcium Lvl 8.4 8.5 - 10.5 06/09/2017 [facility] CHEM PANEL CO2 29 24 - 32 06/09/2017 [facility] CHEM PANEL AGAP 10.3 10.0 - 20.0 06/09/2017 [facility] CHEM PANEL Potassium Lvl 5.3 3.5 - 5.1 06/09/2017 [facility] CHEM PANEL Sodium Lvl 137 135 - 145 06/09/2017 [facility] CHEM PANEL Chloride Lvl 103 95 - 109 06/09/2017 [facility] CHEM PANEL BUN 21 7 - 22 06/09/2017 [facility] CHEM PANEL Creatinine Lvl 1.50 0.50 - 1.40 06/09/2017 [facility] CHEM PANEL Glucose Lvl 140 70 - 99 06/09/2017 [facility] HEMATOLOGY Basophils 0.2 0.0 - 1.0 06/09/2017 [facility] HEMATOLOGY Eosinophils 1.8 0.0 - 4.0 06/09/2017 [facility] HEMATOLOGY Lymphocytes # 1.0 1.0 - 5.5 06/09/2017 [facility] HEMATOLOGY Segs-Bands # 6.8 1.5 - 8.1 06/09/2017 [facility] HEMATOLOGY Monocytes # 0.6 0.0 - 0.8 06/09/2017 [facility] HEMATOLOGY Lymphocytes 11.3 20.0 - 40.0 06/09/2017 [facility] Segs 79.2 45.0 - 75.0 06/09/2017 [facility] Monocytes 7.5 2.0 - 12.0 06/09/2017 [facility] Basophils # 0.0 0.0 - 0.2 06/09/2017 [facility] Eosinophils # 0.2 0.0 - 0.5 06/09/2017 [facility] PTT 48.6 22.9 - 35.8 06/09/2017 [facility] RDW 14.1 11.5 - 14.5 06/09/2017 [facility] MCH 31.7 27.0 - 31.0 06/09/2017 [facility] Platelet 229 133 - 450 06/09/2017 [facility] MPV 8.4 7.4 - 10.4 06/09/2017 [facility] MCHC 33.1 32.0 - 36.0 06/09/2017 [facility] MCV 95.7 80.0 - 94.0 06/09/2017 [facility] Hgb 13.6 14.0 - 18.0 06/09/2017 [facility] Hct 41.1 42.0 - 54.0 06/09/2017 [facility] WBC 8.5 3.7 - 10.4 06/09/2017 [facility] RBC 4.29 4.70 - 6.10 06/09/2017 [facility] PT 32.2 12.0 - 14.7 06/09/2017 [facility] INR 3.08 0.85 - 1.17 06/09/2017 [facility] CARDIAC ENZYMES Troponin-I 0.04 0.00 - 0.40 03/08/2017 [facility] CARDIAC ENZYMES Total CK 177 12 - 191 03/08/2017 [facility] CARDIAC ENZYMES CK MB 0.9 0.5 - 3.6 03/08/2017 [facility] CARDIAC ENZYMES CK MB Index 0.5 0.0 - 2.5 03/08/2017 [facility] CHEM PANEL eGFR 42 03/08/2017 Result Comment: The eGFR is calculated using the CKD-EPI formula. In most young, healthy individuals the eGFR will be >90 mL/min/1.73m2. The eGFR declines with age. An eGFR of 60-89 may be normal in some populations, particularly the elderly, for whom the CKD-EPI formula has not been extensively validated. Use of the eGFR is not recommended in the following populations:

Individuals with unstable creatinine concentrations, including patients and those with serious co-morbid conditions.

Patients with extremes in muscle mass or diet.

The data above are obtained from the National Kidney Disease Education Program (NKDEP) which additionally recommends that when the eGFR is used in patients with extremes of body mass index for purposes of drug dosing, the eGFR should be multiplied by the estimated BMI. [facility] CHEM PANEL Potassium Lvl 3.0 3.5 - 5.1 03/08/2017 Result Comment: Critical Result(s) called to jacinta de oliveira at 03/08/2017 07:31 by [email or web address]. Read back OK. [facility] CHEM PANEL Sodium Lvl 139 135 - 145 03/08/2017 [facility] CHEM PANEL CO2 32 24 - 32 03/08/2017 [facility] CHEM PANEL Chloride Lvl 99 95 - 109 03/08/2017 [facility] CHEM PANEL Calcium Lvl 9.2 8.5 - 10.5 03/08/2017 [facility] CHEM PANEL AGAP 11.0 10.0 - 20.0 03/08/2017 [facility] CHEM PANEL Creatinine Lvl 1.80 0.50 - 1.40 03/08/2017 [facility] CHEM PANEL BUN 36 7 - 22 03/08/2017 [facility] CHEM PANEL Glucose Lvl 66 70 - 99 03/08/2017 [facility] CARDIAC ENZYMES CK MB 0.9 0.5 - 3.6 03/08/2017 [facility] CARDIAC ENZYMES CK MB Index 0.6 0.0 - 2.5 03/08/2017 [facility] CARDIAC ENZYMES Total CK 163 12 - 191 03/08/2017 [facility] CARDIAC ENZYMES Troponin-I 0.04 0.00 - 0.40 03/08/2017 [facility] TOXICOLOGY Digoxin Lvl 0.8 0.8 - 2.0 03/08/2017 [facility] CARDIAC ENZYMES CK MB Index 0.8 0.0 - 2.5 03/08/2017 [facility] CARDIAC ENZYMES BNP 144 <=100 pg/mL 03/08/2017 [facility] CARDIAC ENZYMES Troponin-I 0.03 0.00 - 0.40 03/08/2017 [facility] CARDIAC ENZYMES Total CK 197 12 - 191 03/08/2017 [facility] CARDIAC ENZYMES CK MB 1.5 0.5 - 3.6 03/08/2017 [facility] CHEM PANEL eGFR 37 03/08/2017 Result Comment: The eGFR is calculated using the CKD-EPI formula. In most young, healthy individuals the eGFR will be >90 mL/min/1.73m2. The eGFR declines with age. An eGFR of 60-89 may be normal in some populations, particularly the elderly, for whom the CKD-EPI formula has not been extensively validated. Use of the eGFR is not recommended in the following populations:

Individuals with unstable creatinine concentrations, including patients and those with serious co-morbid conditions.

Patients with extremes in muscle mass or diet.

The data above are obtained from the National Kidney Disease Education Program (NKDEP) which additionally recommends that when the eGFR is used in patients with extremes of body mass index for purposes of drug dosing, the eGFR should be multiplied by the estimated BMI. [facility] CHEM PANEL Potassium Lvl 2.9 3.5 - 5.1 03/08/2017 Result Comment: Critical Result(s) called to Jennifer Arenas at 03/07/2017 22:20 by ln. Read back OK. [facility] CHEM PANEL Glucose Lvl 175 70 - 99 03/08/2017 [facility] CHEM PANEL BUN 35 7 - 22 03/08/2017 [facility] CHEM PANEL Sodium Lvl 137 135 - 145 03/08/2017 [facility] CHEM PANEL Creatinine Lvl 2.00 0.50 - 1.40 03/08/2017 [facility] CHEM PANEL CO2 32 24 - 32 03/08/2017 [facility] CHEM PANEL Chloride Lvl 97 95 - 109 03/08/2017 [facility] CHEM PANEL AGAP 10.9 10.0 - 20.0 03/08/2017 [facility] CHEM PANEL AST 18 0 - 37 03/08/2017 [facility] CHEM PANEL Alk Phos 160 39 - 136 03/08/2017 [facility] CHEM PANEL Bili Total 0.5 0.2 - 1.3 03/08/2017 [facility] CHEM PANEL B/C Ratio 18 6 - 25 03/08/2017 [facility] CHEM PANEL Albumin Lvl 4.0 3.5 - 5.0 03/08/2017 [facility] CHEM PANEL Calcium Lvl 8.7 8.5 - 10.5 03/08/2017 [facility] CHEM PANEL Total Protein 7.6 6.4 - 8.4 03/08/2017 [facility] CHEM PANEL ALT 24 0 - 65 03/08/2017 [facility] CHEM PANEL Globulin 3.6 2.7 - 4.2 03/08/2017 [facility] CHEM PANEL A/G Ratio 1.1 0.7 - 1.6 03/08/2017 [facility] HEMATOLOGY Eosinophils 1.6 0.0 - 4.0 03/08/2017 [facility] Monocytes 8.4 2.0 - 12.0 03/08/2017 [facility] Eosinophils # 0.2 0.0 - 0.5 03/08/2017 [facility] Monocytes # 0.8 0.0 - 0.8 03/08/2017 [facility] Lymphocytes 13.0 20.0 - 40.0 03/08/2017 [facility] Segs 76.9 45.0 - 75.0 03/08/2017 [facility] Segs-Bands # 7.1 1.5 - 8.1 03/08/2017 [facility] Lymphocytes # 1.2 1.0 - 5.5 03/08/2017 [facility] Basophils 0.1 0.0 - 1.0 03/08/2017 [facility] Basophils # 0.0 0.0 - 0.2 03/08/2017 [facility] INR 2.12 0.85 - 1.17 03/08/2017 [facility] PT 24.0 12.0 - 14.7 03/08/2017 [facility] PTT 40.9 22.9 - 35.8 03/08/2017 [facility] Hct 45.4 42.0 - 54.0 03/08/2017 [facility] WBC 9.2 3.7 - 10.4 03/08/2017 [facility] MCHC 33.9 32.0 - 36.0 03/08/2017 [facility] Platelet 195 133 - 450 03/08/2017 [facility] MPV 8.1 7.4 - 10.4 03/08/2017 [facility] RDW 16.6 11.5 - 14.5 03/08/2017 [facility] MCH 29.0 27.0 - 31.0 03/08/2017 [facility] RBC 5.30 4.70 - 6.10 03/08/2017 [facility] Hgb 15.4 14.0 - 18.0 03/08/2017 [facility] MCV 85.7 80.0 - 94.0 03/08/2017 [facility] INR 1.37 0.85 - 1.17 02/22/2017 [facility] HEMATOLOGY PT 16.9 12.0 - 14.7 02/22/2017 [facility] HEMATOLOGY PTT 33.7 22.9 - 35.8 02/22/2017 [facility] DRUG SCREEN U Amph Scr Negative *NA* (02/21/17 2:03 AM) Negative 02/21/2017 [facility] DRUG SCREEN U Brigette Scr Negative *NA* (02/21/17 2:03 AM) Negative 02/21/2017 [facility] DRUG SCREEN U Cannab Scr Negative *NA* (02/21/17 2:03 AM) Negative 02/21/2017 [facility] DRUG SCREEN U Opiate Scr Positive *ABN* (02/21/17 2:03 AM) Negative 02/21/2017 [facility] DRUG SCREEN UDS Note See Note (02/21/17 2:03 AM) 02/21/2017 [facility] DRUG SCREEN U Phencyc Scr Negative *NA* (02/21/17 2:03 AM) Negative 02/21/2017 [facility] DRUG SCREEN U Cocaine Scr Negative *NA* (02/21/17 2:03 AM) Negative 02/21/2017 [facility] DRUG SCREEN U Benzodia Scr Negative *NA* (02/21/17 2:03 AM) Negative 02/21/2017 [facility] HEMATOLOGY INR 2.41 0.85 - 1.17 02/21/2017 [facility] HEMATOLOGY PTT 44.3 22.9 - 35.8 02/21/2017 [facility] HEMATOLOGY PT 26.5 12.0 - 14.7 02/21/2017 [facility] CARDIAC ENZYMES Troponin-I <0.02 0.00 - 0.40 02/21/2017 [facility] CARDIAC ENZYMES Total CK 152 12 - 191 02/21/2017 [facility] CARDIAC ENZYMES CK MB 1.1 0.5 - 3.6 02/21/2017 [facility] CARDIAC ENZYMES CK MB Index 0.7 0.0 - 2.5 02/21/2017 [facility] LIPIDS VLDL 31 02/21/2017 [facility] LIPIDS LDL (Calculated) 92 <=99 mg/dL 02/21/2017 [facility] LIPIDS CHD Risk 4.62 4.00 - 7.30 02/21/2017 [facility] LIPIDS HDL 34 >=61 mg/dL 02/21/2017 [facility] LIPIDS Chol 157 <=199 mg/dL 02/21/2017 [facility] LIPIDS Trig 154 <=149 mg/dL 02/21/2017 [facility] CARDIAC ENZYMES CK MB Index 0.7 0.0 - 2.5 02/21/2017 [facility] CARDIAC ENZYMES CK MB 1.1 0.5 - 3.6 02/21/2017 [facility] CARDIAC ENZYMES Troponin-I <0.02 0.00 - 0.40 02/21/2017 [facility] CARDIAC ENZYMES Total CK 168 12 - 191 02/21/2017 [facility] CARDIAC ENZYMES BNP 205 <=100 pg/mL 02/20/2017 [facility] CARDIAC ENZYMES CK MB 0.9 0.5 - 3.6 02/20/2017 [facility] CARDIAC ENZYMES Total CK 224 12 - 191 02/20/2017 [facility] CARDIAC ENZYMES Troponin-I <0.02 0.00 - 0.40 02/20/2017 [facility] CARDIAC ENZYMES CK MB Index 0.4 0.0 - 2.5 02/20/2017 [facility] CHEM PANEL eGFR 43 02/20/2017 Result Comment: The eGFR is calculated using the CKD-EPI formula. In most young, healthy individuals the eGFR will be >90 mL/min/1.73m2. The eGFR declines with age. An eGFR of 60-89 may be normal in some populations, particularly the elderly, for whom the CKD-EPI formula has not been extensively validated. Use of the eGFR is not recommended in the following populations:

Individuals with unstable creatinine concentrations, including patients and those with serious co-morbid conditions.

Patients with extremes in muscle mass or diet.

The data above are obtained from the National Kidney Disease Education Program (NKDEP) which additionally recommends that when the eGFR is used in patients with extremes of body mass index for purposes of drug dosing, the eGFR should be multiplied by the estimated BMI. [facility] CHEM PANEL A/G Ratio 1.0 0.7 - 1.6 02/20/2017 [facility] CHEM PANEL B/C Ratio 16 6 - 25 02/20/2017 [facility] CHEM PANEL Globulin 3.8 2.7 - 4.2 02/20/2017 [facility] CHEM PANEL Bili Total 0.6 0.2 - 1.3 02/20/2017 [facility] CHEM PANEL ALT 26 0 - 65 02/20/2017 [facility] CHEM PANEL AST 24 0 - 37 02/20/2017 [facility] CHEM PANEL AGAP 11.3 10.0 - 20.0 02/20/2017 [facility] CHEM PANEL Alk Phos 107 39 - 136 02/20/2017 [facility] CHEM PANEL Total Protein 7.5 6.4 - 8.4 02/20/2017 [facility] CHEM PANEL Albumin Lvl 3.7 3.5 - 5.0 02/20/2017 [facility] CHEM PANEL CO2 32 24 - 32 02/20/2017 [facility] CHEM PANEL BUN 29 7 - 22 02/20/2017 [facility] CHEM PANEL Creatinine Lvl 1.79 0.50 - 1.40 02/20/2017 [facility] CHEM PANEL Calcium Lvl 8.8 8.5 - 10.5 02/20/2017 [facility] CHEM PANEL Chloride Lvl 99 95 - 109 02/20/2017 [facility] CHEM PANEL Sodium Lvl 138 135 - 145 02/20/2017 [facility] CHEM PANEL Potassium Lvl 4.3 3.5 - 5.1 02/20/2017 [facility] CHEM PANEL Glucose Lvl 76 70 - 99 02/20/2017 [facility] HEMATOLOGY PTT 49.6 22.9 - 35.8 02/20/2017 [facility] HEMATOLOGY D-Dimer <0.27 02/20/2017 [facility] HEMATOLOGY INR 3.17 0.85 - 1.17 02/20/2017 [facility] HEMATOLOGY PT 33.0 12.0 - 14.7 02/20/2017 [facility] HEMATOLOGY RDW 16.1 11.5 - 14.5 02/20/2017 [facility] HEMATOLOGY MCHC 34.2 32.0 - 36.0 02/20/2017 [facility] HEMATOLOGY MCH 28.4 27.0 - 31.0 02/20/2017 [facility] HEMATOLOGY MCV 83.3 80.0 - 94.0 02/20/2017 [facility] HEMATOLOGY MPV 8.3 7.4 - 10.4 02/20/2017 [facility] HEMATOLOGY Platelet 178 133 - 450 02/20/2017 [facility] HEMATOLOGY Hgb 15.8 14.0 - 18.0 02/20/2017 [facility] HEMATOLOGY RBC 5.55 4.70 - 6.10 02/20/2017 [facility] HEMATOLOGY WBC 13.9 3.7 - 10.4 02/20/2017 [facility] HEMATOLOGY Hct 46.2 42.0 - 54.0 02/20/2017 [facility] HEMATOLOGY Monocytes # 1.1 0.0 - 0.8 02/20/2017 [facility] HEMATOLOGY Lymphocytes # 1.3 1.0 - 5.5 02/20/2017 [facility] HEMATOLOGY Eosinophils # 0.2 0.0 - 0.5 02/20/2017 [facility] HEMATOLOGY Segs 80.6 45.0 - 75.0 02/20/2017 [facility] HEMATOLOGY Lymphocytes 9.6 20.0 - 40.0 02/20/2017 [facility] HEMATOLOGY Monocytes 7.9 2.0 - 12.0 02/20/2017 [facility] HEMATOLOGY Basophils 0.3 0.0 - 1.0 02/20/2017 [facility] HEMATOLOGY Eosinophils 1.6 0.0 - 4.0 02/20/2017 [facility] HEMATOLOGY Segs-Bands # 11.2 1.5 - 8.1 02/20/2017 [facility] TOXICOLOGY Digoxin Lvl 0.9 0.8 - 2.0 02/20/2017 [facility] CARDIAC ENZYMES CK MB 1.2 0.5 - 3.6 01/21/2017 [facility] CARDIAC ENZYMES CK MB Index 1.0 0.0 - 2.5 01/21/2017 [facility] CARDIAC ENZYMES Troponin-I 0.02 0.00 - 0.40 01/21/2017 [facility] CARDIAC ENZYMES Total CK 123 12 - 191 01/21/2017 [facility] CHEM PANEL eGFR 37 01/21/2017 Result Comment: The eGFR is calculated using the CKD-EPI formula. In most young, healthy individuals the eGFR will be >90 mL/min/1.73m2. The eGFR declines with age. An eGFR of 60-89 may be normal in some populations, particularly the elderly, for whom the CKD-EPI formula has not been extensively validated. Use of the eGFR is not recommended in the following populations:

Individuals with unstable creatinine concentrations, including patients and those with serious co-morbid conditions.

Patients with extremes in muscle mass or diet.

The data above are obtained from the National Kidney Disease Education Program (NKDEP) which additionally recommends that when the eGFR is used in patients with extremes of body mass index for purposes of drug dosing, the eGFR should be multiplied by the estimated BMI. [facility] CHEM PANEL Glucose Lvl 159 70 - 99 01/21/2017 [facility] CHEM PANEL Creatinine Lvl 2.00 0.50 - 1.40 01/21/2017 [facility] CHEM PANEL BUN 38 7 - 22 01/21/2017 [facility] CHEM PANEL Chloride Lvl 92 95 - 109 01/21/2017 [facility] CHEM PANEL Potassium Lvl 3.1 3.5 - 5.1 01/21/2017 [facility] CHEM PANEL Sodium Lvl 134 135 - 145 01/21/2017 [facility] CHEM PANEL AGAP 14.1 10.0 - 20.0 01/21/2017 [facility] CHEM PANEL CO2 31 24 - 32 01/21/2017 [facility] CHEM PANEL Calcium Lvl 9.8 8.5 - 10.5 01/21/2017 [facility] HEMATOLOGY Hgb 16.8 14.0 - 18.0 01/21/2017 [facility] WBC 10.2 3.7 - 10.4 01/21/2017 [facility] RBC 5.88 4.70 - 6.10 01/21/2017 [facility] MPV 8.4 7.4 - 10.4 01/21/2017 [facility] Platelet 187 133 - 450 01/21/2017 [facility] HEMATOLOGY RDW 16.4 11.5 - 14.5 01/21/2017 [facility] HEMATOLOGY MCV 84.6 80.0 - 94.0 01/21/2017 [facility] Hct 49.8 42.0 - 54.0 01/21/2017 [facility] MCH 28.6 27.0 - 31.0 01/21/2017 [facility] MCHC 33.8 32.0 - 36.0 01/21/2017 [facility] HEMATOLOGY Eosinophils 1.6 0.0 - 4.0 01/21/2017 [facility] HEMATOLOGY Basophils 0.4 0.0 - 1.0 01/21/2017 [facility] Lymphocytes # 1.9 1.0 - 5.5 01/21/2017 [facility] HEMATOLOGY Segs-Bands # 6.7 1.5 - 8.1 01/21/2017 [facility] HEMATOLOGY Eosinophils # 0.2 0.0 - 0.5 01/21/2017 [facility] HEMATOLOGY Monocytes # 1.3 0.0 - 0.8 01/21/2017 [facility] HEMATOLOGY Monocytes 13.2 2.0 - 12.0 01/21/2017 [facility] HEMATOLOGY Lymphocytes 18.5 20.0 - 40.0 01/21/2017 [facility] HEMATOLOGY Segs 66.3 45.0 - 75.0 01/21/2017 [facility] DRUG SCREEN U Phencyc Scr Negative *NA* (01/20/17 9:45 PM) Negative 01/21/2017 [facility] DRUG SCREEN UDS Note See Note (01/20/17 9:45 PM) 01/21/2017 [facility] DRUG SCREEN U Cocaine Scr Negative *NA* (01/20/17 9:45 PM) Negative 01/21/2017 [facility] DRUG SCREEN U Cannab Scr Negative *NA* (01/20/17 9:45 PM) Negative 01/21/2017 [facility] DRUG SCREEN U Opiate Scr Negative *NA* (01/20/17 9:45 PM) Negative 01/21/2017 [facility] DRUG SCREEN U Amph Scr Negative *NA* (01/20/17 9:45 PM) Negative 01/21/2017 [facility] DRUG SCREEN U Benzodia Scr Negative *NA* (01/20/17 9:45 PM) Negative 01/21/2017 [facility] DRUG SCREEN U Brigette Scr Negative *NA* (01/20/17 9:45 PM) Negative 01/21/2017 [facility] CARDIAC ENZYMES CK MB Index 0.9 0.0 - 2.5 01/21/2017 [facility] CARDIAC ENZYMES BNP 200 <=100 pg/mL 01/21/2017 [facility] CARDIAC ENZYMES CK MB 1.2 0.5 - 3.6 01/21/2017 [facility] CARDIAC ENZYMES Troponin-I 0.02 0.00 - 0.40 01/21/2017 [facility] CARDIAC ENZYMES Total CK 139 12 - 191 01/21/2017 [facility] CHEM PANEL eGFR 35 01/21/2017 Result Comment: The eGFR is calculated using the CKD-EPI formula. In most young, healthy individuals the eGFR will be >90 mL/min/1.73m2. The eGFR declines with age. An eGFR of 60-89 may be normal in some populations, particularly the elderly, for whom the CKD-EPI formula has not been extensively validated. Use of the eGFR is not recommended in the following populations:

Individuals with unstable creatinine concentrations, including patients and those with serious co-morbid conditions.

Patients with extremes in muscle mass or diet.

The data above are obtained from the National Kidney Disease Education Program (NKDEP) which additionally recommends that when the eGFR is used in patients with extremes of body mass index for purposes of drug dosing, the eGFR should be multiplied by the estimated BMI. [facility] CHEM PANEL Chloride Lvl 94 95 - 109 01/21/2017 [facility] CHEM PANEL ALT 34 0 - 65 01/21/2017 [facility] CHEM PANEL A/G Ratio 1.0 0.7 - 1.6 01/21/2017 [facility] CHEM PANEL B/C Ratio 17 6 - 25 01/21/2017 [facility] CHEM PANEL CO2 34 24 - 32 01/21/2017 [facility] CHEM PANEL Total Protein 8.5 6.4 - 8.4 01/21/2017 [facility] CHEM PANEL Albumin Lvl 4.2 3.5 - 5.0 01/21/2017 [facility] CHEM PANEL Calcium Lvl 9.4 8.5 - 10.5 01/21/2017 [facility] CHEM PANEL Potassium Lvl 3.1 3.5 - 5.1 01/21/2017 [facility] CHEM PANEL Sodium Lvl 136 135 - 145 01/21/2017 [facility] CHEM PANEL AST 24 0 - 37 01/21/2017 [facility] CHEM PANEL Alk Phos 140 39 - 136 01/21/2017 [facility] CHEM PANEL Globulin 4.3 2.7 - 4.2 01/21/2017 [facility] CHEM PANEL AGAP 11.1 10.0 - 20.0 01/21/2017 [facility] CHEM PANEL Bili Total 0.6 0.2 - 1.3 01/21/2017 [facility] CHEM PANEL Creatinine Lvl 2.10 0.50 - 1.40 01/21/2017 [facility] CHEM PANEL Glucose Lvl 159 70 - 99 01/21/2017 [facility] CHEM PANEL BUN 35 7 - 22 01/21/2017 [facility] CHEM PANEL Lipase Lvl 158 73 - 393 01/21/2017 [facility] HEMATOLOGY Lymphocytes # 1.2 1.0 - 5.5 01/21/2017 [facility] HEMATOLOGY Monocytes # 0.8 0.0 - 0.8 01/21/2017 [facility] HEMATOLOGY Eosinophils # 0.1 0.0 - 0.5 01/21/2017 [facility] HEMATOLOGY Basophils # 0.0 0.0 - 0.2 01/21/2017 [facility] HEMATOLOGY Lymphocytes 11.0 20.0 - 40.0 01/21/2017 [facility] HEMATOLOGY Segs 81.2 45.0 - 75.0 01/21/2017 [facility] Segs-Bands # 9.1 1.5 - 8.1 01/21/2017 [facility] HEMATOLOGY Basophils 0.1 0.0 - 1.0 01/21/2017 [facility] HEMATOLOGY Eosinophils 0.5 0.0 - 4.0 01/21/2017 [facility] Monocytes 7.2 2.0 - 12.0 01/21/2017 [facility] Hgb 17.8 14.0 - 18.0 01/21/2017 [facility] Hct 54.1 42.0 - 54.0 01/21/2017 [facility] RBC 6.17 4.70 - 6.10 01/21/2017 [facility] WBC 11.2 3.7 - 10.4 01/21/2017 [facility] Platelet 194 133 - 450 01/21/2017 [facility] RDW 16.0 11.5 - 14.5 01/21/2017 [facility] MCHC 32.8 32.0 - 36.0 01/21/2017 [facility] MCH 28.8 27.0 - 31.0 01/21/2017 [facility] MCV 87.7 80.0 - 94.0 01/21/2017 [facility] MPV 8.4 7.4 - 10.4 01/21/2017 [facility] PTT 42.9 22.9 - 35.8 01/21/2017 [facility] HEMATOLOGY PT 26.9 12.0 - 14.7 01/21/2017 [facility] HEMATOLOGY INR 2.45 0.85 - 1.17 01/21/2017 [facility] CARDIAC ENZYMES Troponin-I 0.04 0.00 - 0.40 12/23/2016 [facility] DRUG SCREEN U Amph Scr Negative *NA* (12/23/16 2:30 AM) Negative 12/23/2016 [facility] DRUG SCREEN U Brigette Scr Negative *NA* (12/23/16 2:30 AM) Negative 12/23/2016 [facility] DRUG SCREEN U Benzodia Scr Negative *NA* (12/23/16 2:30 AM) Negative 12/23/2016 [facility] DRUG SCREEN U Cannab Scr Negative *NA* (12/23/16 2:30 AM) Negative 12/23/2016 [facility] DRUG SCREEN U Cocaine Scr Positive *ABN* (12/23/16 2:30 AM) Negative 12/23/2016 [facility] DRUG SCREEN U Opiate Scr Negative *NA* (12/23/16 2:30 AM) Negative 12/23/2016 [facility] DRUG SCREEN U Phencyc Scr Negative *NA* (12/23/16 2:30 AM) Negative 12/23/2016 [facility] DRUG SCREEN UDS Note See Note (12/23/16 2:30 AM) 12/23/2016 [facility] CARDIAC ENZYMES Total CK 117 12 - 191 12/23/2016 [facility] CARDIAC ENZYMES CK MB 1.6 0.5 - 3.6 12/23/2016 [facility] CARDIAC ENZYMES Troponin-I 0.04 0.00 - 0.40 12/23/2016 [facility] CHEM PANEL eGFR 45 12/23/2016 Result Comment: The eGFR is calculated using the CKD-EPI formula. In most young, healthy individuals the eGFR will be >90 mL/min/1.73m2. The eGFR declines with age. An eGFR of 60-89 may be normal in some populations, particularly the elderly, for whom the CKD-EPI formula has not been extensively validated. Use of the eGFR is not recommended in the following populations:

Individuals with unstable creatinine concentrations, including patients and those with serious co-morbid conditions.

Patients with extremes in muscle mass or diet.

The data above are obtained from the National Kidney Disease Education Program (NKDEP) which additionally recommends that when the eGFR is used in patients with extremes of body mass index for purposes of drug dosing, the eGFR should be multiplied by the estimated BMI. [facility] CHEM PANEL Bili Total 0.5 0.2 - 1.3 12/23/2016 [facility] CHEM PANEL AGAP 9.6 10.0 - 20.0 12/23/2016 [facility] CHEM PANEL B/C Ratio 10 6 - 25 12/23/2016 [facility] CHEM PANEL Globulin 3.5 2.7 - 4.2 12/23/2016 [facility] CHEM PANEL A/G Ratio 0.9 0.7 - 1.6 12/23/2016 [facility] CHEM PANEL Chloride Lvl 103 95 - 109 12/23/2016 [facility] CHEM PANEL CO2 33 24 - 32 12/23/2016 [facility] CHEM PANEL Calcium Lvl 8.1 8.5 - 10.5 12/23/2016 [facility] CHEM PANEL Albumin Lvl 3.1 3.5 - 5.0 12/23/2016 [facility] CHEM PANEL Total Protein 6.6 6.4 - 8.4 12/23/2016 [facility] CHEM PANEL BUN 17 7 - 22 12/23/2016 [facility] CHEM PANEL Creatinine Lvl 1.70 0.50 - 1.40 12/23/2016 [facility] CHEM PANEL Glucose Lvl 61 70 - 99 12/23/2016 [facility] CHEM PANEL Sodium Lvl 142 135 - 145 12/23/2016 [facility] CHEM PANEL Potassium Lvl 3.6 3.5 - 5.1 12/23/2016 [facility] CHEM PANEL Alk Phos 135 39 - 136 12/23/2016 [facility] CHEM PANEL ALT 32 0 - 65 12/23/2016 [facility] CHEM PANEL AST 10 0 - 37 12/23/2016 [facility] HEMATOLOGY RBC 4.70 4.70 - 6.10 12/23/2016 [facility] HEMATOLOGY WBC 9.8 3.7 - 10.4 12/23/2016 [facility] Hgb 13.8 14.0 - 18.0 12/23/2016 [facility] HEMATOLOGY RDW 15.8 11.5 - 14.5 12/23/2016 [facility] HEMATOLOGY Hct 42.4 42.0 - 54.0 12/23/2016 [facility] HEMATOLOGY MCHC 32.5 32.0 - 36.0 12/23/2016 [facility] MCH 29.3 27.0 - 31.0 12/23/2016 [facility] HEMATOLOGY MCV 90.2 80.0 - 94.0 12/23/2016 [facility] HEMATOLOGY MPV 8.4 7.4 - 10.4 12/23/2016 [facility] HEMATOLOGY Platelet 210 133 - 450 12/23/2016 [facility] HEMATOLOGY Eosinophils 1.7 0.0 - 4.0 12/23/2016 [facility] HEMATOLOGY Monocytes 7.6 2.0 - 12.0 12/23/2016 [facility] HEMATOLOGY Basophils 0.4 0.0 - 1.0 12/23/2016 [facility] HEMATOLOGY Lymphocytes 13.3 20.0 - 40.0 12/23/2016 [facility] HEMATOLOGY Monocytes # 0.7 0.0 - 0.8 12/23/2016 [facility] HEMATOLOGY Lymphocytes # 1.3 1.0 - 5.5 12/23/2016 [facility] HEMATOLOGY Basophils # 0.0 0.0 - 0.2 12/23/2016 [facility] HEMATOLOGY Eosinophils # 0.2 0.0 - 0.5 12/23/2016 [facility] HEMATOLOGY Segs-Bands # 7.5 1.5 - 8.1 12/23/2016 [facility] HEMATOLOGY Segs 77.0 45.0 - 75.0 12/23/2016 [facility] CARDIAC ENZYMES CK-MB INDEX See Note 1 (11/09/16 3:33 PM) 0.0 - 2.5 11/09/2016 Result Comment: Calculated values are not available [facility] CARDIAC ENZYMES Troponin-I 0.03 0.00 - 0.40 11/09/2016 [facility] CARDIAC ENZYMES CK MB 2.8 0.5 - 3.6 11/09/2016 [facility] CARDIAC ENZYMES Total CK 2494 12 - 191 11/09/2016 [facility] CARDIAC ENZYMES BNP 252 <=100 pg/mL 11/09/2016 [facility] CHEM PANEL eGFR 47 11/09/2016 Result Comment: The eGFR is calculated using the CKD-EPI formula. In most young, healthy individuals the eGFR will be >90 mL/min/1.73m2. The eGFR declines with age. An eGFR of 60-89 may be normal in some populations, particularly the elderly, for whom the CKD-EPI formula has not been extensively validated. Use of the eGFR is not recommended in the following populations:

Individuals with unstable creatinine concentrations, including patients and those with serious co-morbid conditions.

Patients with extremes in muscle mass or diet.

The data above are obtained from the National Kidney Disease Education Program (NKDEP) which additionally recommends that when the eGFR is used in patients with extremes of body mass index for purposes of drug dosing, the eGFR should be multiplied by the estimated BMI. [facility] CHEM PANEL A/G Ratio 0.9 0.7 - 1.6 11/09/2016 [facility] CHEM PANEL Calcium Lvl 8.4 8.5 - 10.5 11/09/2016 [facility] CHEM PANEL Total Protein 8.3 6.4 - 8.4 11/09/2016 [facility] CHEM PANEL Albumin Lvl 4.0 3.5 - 5.0 11/09/2016 [facility] CHEM PANEL ALT 38 0 - 65 11/09/2016 [facility] CHEM PANEL CO2 31 24 - 32 11/09/2016 [facility] CHEM PANEL Globulin 4.3 2.7 - 4.2 11/09/2016 [facility] CHEM PANEL B/C Ratio 10 6 - 25 11/09/2016 [facility] CHEM PANEL Bili Total 0.5 0.2 - 1.3 11/09/2016 [facility] CHEM PANEL AGAP 8.9 10.0 - 20.0 11/09/2016 [facility] CHEM PANEL Alk Phos 118 39 - 136 11/09/2016 [facility] CHEM PANEL AST 81 0 - 37 11/09/2016 [facility] CHEM PANEL Creatinine Lvl 1.64 0.50 - 1.40 11/09/2016 [facility] CHEM PANEL Glucose Lvl 143 70 - 99 11/09/2016 [facility] CHEM PANEL BUN 16 7 - 22 11/09/2016 [facility] CHEM PANEL Potassium Lvl 3.9 3.5 - 5.1 11/09/2016 [facility] CHEM PANEL Chloride Lvl 102 95 - 109 11/09/2016 [facility] CHEM PANEL Sodium Lvl 138 135 - 145 11/09/2016 [facility] CHEM PANEL Lipase Lvl 275 73 - 393 11/09/2016 [facility] HEMATOLOGY Basophils # 0.0 0.0 - 0.2 11/09/2016 [facility] HEMATOLOGY Basophils 0.1 0.0 - 1.0 11/09/2016 [facility] HEMATOLOGY Segs-Bands # 5.8 1.5 - 8.1 11/09/2016 [facility] HEMATOLOGY Eosinophils # 0.1 0.0 - 0.5 11/09/2016 [facility] HEMATOLOGY Monocytes # 0.8 0.0 - 0.8 11/09/2016 [facility] HEMATOLOGY Lymphocytes # 1.1 1.0 - 5.5 11/09/2016 [facility] HEMATOLOGY Eosinophils 1.9 0.0 - 4.0 11/09/2016 [facility] HEMATOLOGY Segs 73.9 45.0 - 75.0 11/09/2016 [facility] HEMATOLOGY Monocytes 9.8 2.0 - 12.0 11/09/2016 [facility] HEMATOLOGY Lymphocytes 14.3 20.0 - 40.0 11/09/2016 [facility] Platelet 206 133 - 450 11/09/2016 [facility] MPV 8.0 7.4 - 10.4 11/09/2016 [facility] RDW 15.3 11.5 - 14.5 11/09/2016 [facility] MCH 31.2 27.0 - 31.0 11/09/2016 [facility] MCHC 33.8 32.0 - 36.0 11/09/2016 [facility] Hct 46.1 42.0 - 54.0 11/09/2016 [facility] Hgb 15.6 14.0 - 18.0 11/09/2016 [facility] WBC 7.8 3.7 - 10.4 11/09/2016 [facility] MCV 92.2 80.0 - 94.0 11/09/2016 [facility] RBC 5.00 4.70 - 6.10 11/09/2016 [facility] CARDIAC ENZYMES Troponin-I <0.02 0.00 - 0.40 09/10/2016 [facility] CARDIAC ENZYMES CK MB 1.1 0.5 - 3.6 09/10/2016 [facility] CARDIAC ENZYMES Total CK 160 12 - 191 09/10/2016 [facility] CARDIAC ENZYMES Total CK 193 12 - 191 09/10/2016 [facility] CARDIAC ENZYMES Troponin-I 0.02 0.00 - 0.40 09/10/2016 [facility] CARDIAC ENZYMES Total CK 195 12 - 191 09/10/2016 [facility] CARDIAC ENZYMES CK MB 1.2 0.5 - 3.6 09/10/2016 [facility] CHEM PANEL Calcium Lvl 8.3 8.5 - 10.5 09/10/2016 [facility] CHEM PANEL AGAP 11.9 10.0 - 20.0 09/10/2016 [facility] CHEM PANEL eGFR 57 09/10/2016 Result Comment: The eGFR is calculated using the CKD-EPI formula. In most young, healthy individuals the eGFR will be >90 mL/min/1.73m2. The eGFR declines with age. An eGFR of 60-89 may be normal in some populations, particularly the elderly, for whom the CKD-EPI formula has not been extensively validated. Use of the eGFR is not recommended in the following populations:

Individuals with unstable creatinine concentrations, including patients and those with serious co-morbid conditions.

Patients with extremes in muscle mass or diet.

The data above are obtained from the National Kidney Disease Education Program (NKDEP) which additionally recommends that when the eGFR is used in patients with extremes of body mass index for purposes of drug dosing, the eGFR should be multiplied by the estimated BMI. [facility] CHEM PANEL CO2 27 24 - 32 09/10/2016 [facility] CHEM PANEL BUN 23 7 - 22 09/10/2016 [facility] CHEM PANEL Creatinine Lvl 1.40 0.50 - 1.40 09/10/2016 [facility] CHEM PANEL Sodium Lvl 141 135 - 145 09/10/2016 [facility] CHEM PANEL Chloride Lvl 106 95 - 109 09/10/2016 [facility] CHEM PANEL Potassium Lvl 3.9 3.5 - 5.1 09/10/2016 [facility] CHEM PANEL Glucose Lvl 196 70 - 99 09/10/2016 [facility] DRUG SCREEN UDS Note See Note (09/10/16 12:02 AM) 09/10/2016 [facility] DRUG SCREEN U Phencyc Scr Negative *NA* (09/10/16 12:02 AM) Negative 09/10/2016 [facility] DRUG SCREEN U Opiate Scr Positive *ABN* (09/10/16 12:02 AM) Negative 09/10/2016 [facility] DRUG SCREEN U Cannab Scr Negative *NA* (09/10/16 12:02 AM) Negative 09/10/2016 [facility] DRUG SCREEN U Cocaine Scr Positive *ABN* (09/10/16 12:02 AM) Negative 09/10/2016 [facility] DRUG SCREEN U Amph Scr Negative *NA* (09/10/16 12:02 AM) Negative 09/10/2016 [facility] DRUG SCREEN U Benzodia Scr Negative *NA* (09/10/16 12:02 AM) Negative 09/10/2016 [facility] DRUG SCREEN U Brigette Scr Negative *NA* (09/10/16 12:02 AM) Negative 09/10/2016 [facility] CARDIAC ENZYMES CK MB Index 0.7 0.0 - 2.5 09/10/2016 [facility] CARDIAC ENZYMES BNP 208 <=100 pg/mL 09/10/2016 [facility] CARDIAC ENZYMES CK MB 1.7 0.5 - 3.6 09/10/2016 [facility] CARDIAC ENZYMES Troponin-I 0.02 0.00 - 0.40 09/10/2016 [facility] CHEM PANEL eGFR 50 09/10/2016 Result Comment: The eGFR is calculated using the CKD-EPI formula. In most young, healthy individuals the eGFR will be >90 mL/min/1.73m2. The eGFR declines with age. An eGFR of 60-89 may be normal in some populations, particularly the elderly, for whom the CKD-EPI formula has not been extensively validated. Use of the eGFR is not recommended in the following populations:

Individuals with unstable creatinine concentrations, including patients and those with serious co-morbid conditions.

Patients with extremes in muscle mass or diet.

The data above are obtained from the National Kidney Disease Education Program (NKDEP) which additionally recommends that when the eGFR is used in patients with extremes of body mass index for purposes of drug dosing, the eGFR should be multiplied by the estimated BMI. [facility] CHEM PANEL Albumin Lvl 3.9 3.5 - 5.0 09/10/2016 [facility] CHEM PANEL AST 28 0 - 37 09/10/2016 [facility] CHEM PANEL ALT 27 0 - 65 09/10/2016 [facility] CHEM PANEL Bili Total 0.6 0.2 - 1.3 09/10/2016 [facility] CHEM PANEL Alk Phos 124 39 - 136 09/10/2016 [facility] CHEM PANEL B/C Ratio 13 6 - 25 09/10/2016 [facility] CHEM PANEL AGAP 11.7 10.0 - 20.0 09/10/2016 [facility] CHEM PANEL A/G Ratio 1.1 0.7 - 1.6 09/10/2016 [facility] CHEM PANEL Globulin 3.4 2.7 - 4.2 09/10/2016 [facility] CHEM PANEL Creatinine Lvl 1.56 0.50 - 1.40 09/10/2016 [facility] CHEM PANEL BUN 21 7 - 22 09/10/2016 [facility] CHEM PANEL Sodium Lvl 142 135 - 145 09/10/2016 [facility] CHEM PANEL Potassium Lvl 3.7 3.5 - 5.1 09/10/2016 [facility] CHEM PANEL Chloride Lvl 104 95 - 109 09/10/2016 [facility] CHEM PANEL Calcium Lvl 8.4 8.5 - 10.5 09/10/2016 [facility] CHEM PANEL CO2 30 24 - 32 09/10/2016 [facility] CHEM PANEL Total Protein 7.3 6.4 - 8.4 09/10/2016 [facility] CHEM PANEL Glucose Lvl 188 70 - 99 09/10/2016 [facility] Monocytes # 0.6 0.0 - 0.8 09/10/2016 [facility] Lymphocytes # 1.1 1.0 - 5.5 09/10/2016 [facility] Segs-Bands # 7.0 1.5 - 8.1 09/10/2016 [facility] Basophils 0.1 0.0 - 1.0 09/10/2016 [facility] Eosinophils 0.9 0.0 - 4.0 09/10/2016 [facility] Monocytes 6.9 2.0 - 12.0 09/10/2016 [facility] Lymphocytes 12.9 20.0 - 40.0 09/10/2016 [facility] Segs 79.2 45.0 - 75.0 09/10/2016 [facility] Eosinophils # 0.1 0.0 - 0.5 09/10/2016 [facility] Basophils # 0.0 0.0 - 0.2 09/10/2016 [facility] PTT 43.5 22.9 - 35.8 09/10/2016 [facility] INR 1.79 0.85 - 1.17 09/10/2016 [facility] PT 21.1 12.0 - 14.7 09/10/2016 [facility] MPV 8.4 7.4 - 10.4 09/10/2016 [facility] MCHC 33.2 32.0 - 36.0 09/10/2016 [facility] Platelet 169 133 - 450 09/10/2016 [facility] RDW 14.3 11.5 - 14.5 09/10/2016 [facility] Hct 47.9 42.0 - 54.0 09/10/2016 [facility] WBC 8.9 3.7 - 10.4 09/10/2016 [facility] MCV 91.5 80.0 - 94.0 09/10/2016 [facility] MCH 30.4 27.0 - 31.0 09/10/2016 [facility] RBC 5.23 4.70 - 6.10 09/10/2016 [facility] Hgb 15.9 14.0 - 18.0 09/10/2016 [facility] CHEM PANEL eGFR 69 09/02/2016 Result Comment: The eGFR is calculated using the CKD-EPI formula. In most young, healthy individuals the eGFR will be >90 mL/min/1.73m2. The eGFR declines with age. An eGFR of 60-89 may be normal in some populations, particularly the elderly, for whom the CKD-EPI formula has not been extensively validated. Use of the eGFR is not recommended in the following populations:

Individuals with unstable creatinine concentrations, including patients and those with serious co-morbid conditions.

Patients with extremes in muscle mass or diet.

The data above are obtained from the National Kidney Disease Education Program (NKDEP) which additionally recommends that when the eGFR is used in patients with extremes of body mass index for purposes of drug dosing, the eGFR should be multiplied by the estimated BMI. [facility] CHEM PANEL B/C Ratio 24 6 - 25 09/02/2016 [facility] CHEM PANEL Total Protein 6.6 6.4 - 8.4 09/02/2016 [facility] CHEM PANEL ALT 24 0 - 65 09/02/2016 [facility] CHEM PANEL Calcium Lvl 8.5 8.5 - 10.5 09/02/2016 [facility] CHEM PANEL Bili Total 0.6 0.2 - 1.3 09/02/2016 [facility] CHEM PANEL Potassium Lvl 3.9 3.5 - 5.1 09/02/2016 Result Comment: Specimen Slightly Hemolyzed. [facility] CHEM PANEL AST 26 0 - 37 09/02/2016 [facility] CHEM PANEL Alk Phos 94 39 - 136 09/02/2016 [facility] CHEM PANEL Sodium Lvl 137 135 - 145 09/02/2016 [facility] CHEM PANEL CO2 26 24 - 32 09/02/2016 [facility] CHEM PANEL AGAP 11.9 10.0 - 20.0 09/02/2016 [facility] CHEM PANEL Chloride Lvl 103 95 - 109 09/02/2016 [facility] CHEM PANEL Albumin Lvl 2.9 3.5 - 5.0 09/02/2016 [facility] CHEM PANEL Globulin 3.7 2.7 - 4.2 09/02/2016 [facility] CHEM PANEL A/G Ratio 0.8 0.7 - 1.6 09/02/2016 [facility] CHEM PANEL Creatinine Lvl 1.20 0.50 - 1.40 09/02/2016 [facility] CHEM PANEL BUN 29 7 - 22 09/02/2016 [facility] CHEM PANEL Glucose Lvl 157 70 - 99 09/02/2016 [facility] MCHC 35.6 32.0 - 36.0 09/02/2016 [facility] MPV 10.0 7.4 - 10.4 09/02/2016 [facility] HEMATOLOGY RDW 14.7 11.5 - 14.5 09/02/2016 [facility] Platelet 203 133 - 450 09/02/2016 [facility] MCV 88.4 80.0 - 94.0 09/02/2016 [facility] MCH 31.5 27.0 - 31.0 09/02/2016 [facility] Hgb 16.5 14.0 - 18.0 09/02/2016 [facility] Hct 46.4 42.0 - 54.0 09/02/2016 [facility] RBC 5.25 4.70 - 6.10 09/02/2016 [facility] WBC 9.7 3.7 - 10.4 09/02/2016 [facility] HEMATOLOGY Basophils # 0.0 0.0 - 0.2 09/02/2016 [facility] Monocytes # 0.8 0.0 - 0.8 09/02/2016 [facility] HEMATOLOGY Segs-Bands # 6.8 1.5 - 8.1 09/02/2016 [facility] Lymphocytes # 1.9 1.0 - 5.5 09/02/2016 [facility] HEMATOLOGY Eosinophils # 0.1 0.0 - 0.5 09/02/2016 [facility] HEMATOLOGY Eosinophils 1.1 0.0 - 4.0 09/02/2016 [facility] HEMATOLOGY Lymphocytes 19.8 20.0 - 40.0 09/02/2016 [facility] Monocytes 8.7 2.0 - 12.0 09/02/2016 [facility] HEMATOLOGY Segs 70.1 45.0 - 75.0 09/02/2016 [facility] HEMATOLOGY Basophils 0.3 0.0 - 1.0 09/02/2016 [facility] SPECIAL CHEMISTRY Hgb A1C 10.3 <=5.6 % 09/02/2016 [facility] CARDIAC ENZYMES Troponin-I <0.02 0.00 - 0.40 09/02/2016 [facility] CARDIAC ENZYMES Troponin-I <0.02 0.00 - 0.40 09/02/2016 [facility] CARDIAC ENZYMES Total CK 182 12 - 191 09/02/2016 [facility] CARDIAC ENZYMES CK MB 1.4 0.5 - 3.6 09/02/2016 [facility] CARDIAC ENZYMES CK MB Index 0.8 0.0 - 2.5 09/02/2016 [facility] CHEM PANEL eGFR 45 09/02/2016 Result Comment: The eGFR is calculated using the CKD-EPI formula. In most young, healthy individuals the eGFR will be >90 mL/min/1.73m2. The eGFR declines with age. An eGFR of 60-89 may be normal in some populations, particularly the elderly, for whom the CKD-EPI formula has not been extensively validated. Use of the eGFR is not recommended in the following populations:

Individuals with unstable creatinine concentrations, including patients and those with serious co-morbid conditions.

Patients with extremes in muscle mass or diet.

The data above are obtained from the National Kidney Disease Education Program (NKDEP) which additionally recommends that when the eGFR is used in patients with extremes of body mass index for purposes of drug dosing, the eGFR should be multiplied by the estimated BMI. [facility] CHEM PANEL B/C Ratio 19 6 - 25 09/02/2016 [facility] CHEM PANEL AST 16 0 - 37 09/02/2016 [facility] CHEM PANEL Alk Phos 127 39 - 136 09/02/2016 [facility] CHEM PANEL AGAP 12.5 10.0 - 20.0 09/02/2016 [facility] CHEM PANEL Bili Total 0.5 0.2 - 1.3 09/02/2016 [facility] CHEM PANEL Globulin 3.4 2.7 - 4.2 09/02/2016 [facility] CHEM PANEL A/G Ratio 1.2 0.7 - 1.6 09/02/2016 [facility] CHEM PANEL Calcium Lvl 9.0 8.5 - 10.5 09/02/2016 [facility] CHEM PANEL Total Protein 7.4 6.4 - 8.4 09/02/2016 [facility] CHEM PANEL Albumin Lvl 4.0 3.5 - 5.0 09/02/2016 [facility] CHEM PANEL ALT 23 0 - 65 09/02/2016 [facility] CHEM PANEL CO2 32 24 - 32 09/02/2016 [facility] CHEM PANEL Glucose Lvl 204 70 - 99 09/02/2016 [facility] CHEM PANEL Chloride Lvl 98 95 - 109 09/02/2016 [facility] CHEM PANEL Potassium Lvl 3.5 3.5 - 5.1 09/02/2016 [facility] CHEM PANEL BUN 33 7 - 22 09/02/2016 [facility] CHEM PANEL Creatinine Lvl 1.70 0.50 - 1.40 09/02/2016 [facility] CHEM PANEL Sodium Lvl 139 135 - 145 09/02/2016 [facility] DRUG SCREEN U Cannab Scr Negative *NA* (09/01/16 10:30 PM) Negative 09/02/2016 [facility] DRUG SCREEN U Cocaine Scr Negative *NA* (09/01/16 10:30 PM) Negative 09/02/2016 [facility] DRUG SCREEN U Phencyc Scr Negative *NA* (09/01/16 10:30 PM) Negative 09/02/2016 [facility] DRUG SCREEN U Opiate Scr Negative *NA* (09/01/16 10:30 PM) Negative 09/02/2016 [facility] DRUG SCREEN UDS Note See Note (09/01/16 10:30 PM) 09/02/2016 [facility] DRUG SCREEN U Amph Scr Negative *NA* (09/01/16 10:30 PM) Negative 09/02/2016 [facility] DRUG SCREEN U Benzodia Scr Negative *NA* (09/01/16 10:30 PM) Negative 09/02/2016 [facility] DRUG SCREEN U Brigette Scr Negative *NA* (09/01/16 10:30 PM) Negative 09/02/2016 [facility] HEMATOLOGY INR 1.62 0.85 - 1.17 09/02/2016 [facility] HEMATOLOGY PT 19.5 12.0 - 14.7 09/02/2016 [facility] PTT 32.7 22.9 - 35.8 09/02/2016 [facility] MPV 8.6 7.4 - 10.4 09/02/2016 [facility] RBC 5.85 4.70 - 6.10 09/02/2016 [facility] WBC 12.5 3.7 - 10.4 09/02/2016 [facility] HEMATOLOGY RDW 14.1 11.5 - 14.5 09/02/2016 [facility] HEMATOLOGY MCV 90.2 80.0 - 94.0 09/02/2016 [facility] HEMATOLOGY Platelet 189 133 - 450 09/02/2016 [facility] MCHC 33.3 32.0 - 36.0 09/02/2016 [facility] MCH 30.0 27.0 - 31.0 09/02/2016 [facility] HEMATOLOGY Hct 52.8 42.0 - 54.0 09/02/2016 [facility] HEMATOLOGY Hgb 17.6 14.0 - 18.0 09/02/2016 [facility] HEMATOLOGY Segs 83.7 45.0 - 75.0 09/02/2016 [facility] HEMATOLOGY Lymphocytes 10.2 20.0 - 40.0 09/02/2016 [facility] HEMATOLOGY Monocytes # 0.7 0.0 - 0.8 09/02/2016 [facility] HEMATOLOGY Eosinophils # 0.1 0.0 - 0.5 09/02/2016 [facility] HEMATOLOGY Basophils # 0.0 0.0 - 0.2 09/02/2016 [facility] HEMATOLOGY Monocytes 5.6 2.0 - 12.0 09/02/2016 [facility] HEMATOLOGY Eosinophils 0.4 0.0 - 4.0 09/02/2016 [facility] HEMATOLOGY Basophils 0.1 0.0 - 1.0 09/02/2016 [facility] Lymphocytes # 1.3 1.0 - 5.5 09/02/2016 [facility] Segs-Bands # 10.5 1.5 - 8.1 09/02/2016 [facility] URINE AND STOOL UA Protein Negative mg/dL Negative mg/dL 09/02/2016 [facility] URINE AND STOOL UA Turbidity Clear (09/01/16 10:30 PM) Clear 09/02/2016 [facility] URINE AND STOOL UA Spec Grav 1.016 <=1.030 09/02/2016 [facility] URINE AND STOOL UA pH 5.0 5.0 - 8.0 09/02/2016 [facility] URINE AND STOOL UA Hyal Cast 7 0 - 2 09/02/2016 [facility] URINE AND STOOL UA Sq Epi None Seen 09/02/2016 [facility] URINE AND STOOL UA Leuk Est Negative (09/01/16 10:30 PM) Negative 09/02/2016 [facility] URINE AND STOOL UA Blood Negative (09/01/16 10:30 PM) Negative 09/02/2016 [facility] URINE AND STOOL UA Nitrite Negative (09/01/16 10:30 PM) Negative 09/02/2016 [facility] URINE AND STOOL UA Ketones Negative mg/dL Negative mg/dL 09/02/2016 [facility] URINE AND STOOL UA Bili Negative *NA* (09/01/16 10:30 PM) Negative 09/02/2016 [facility] URINE AND STOOL UA RBC <1 0 - 2 09/02/2016 [facility] URINE AND STOOL UA Mucus Few /LPF None Seen /LPF 09/02/2016 [facility] URINE AND STOOL UA Glucose Negative mg/dL Negative mg/dL 09/02/2016 [facility] URINE AND STOOL UA Urobilinogen <=1.0 mg/dL 0.1 - 1.0 09/02/2016 [facility] URINE AND STOOL UA Color Light Yellow *NA* (09/01/16 10:30 PM) Yellow 09/02/2016 [facility] CARDIAC ENZYMES CK MB 12.1 0.5 - 3.6 07/26/2016 [facility] CARDIAC ENZYMES Total CK 3802 12 - 191 07/26/2016 [facility] CHEM PANEL Magnesium Lvl 2.2 1.8 - 2.4 07/26/2016 [facility] ELECTROLYTES AGAP 11.5 10.0 - 20.0 07/26/2016 [facility] ELECTROLYTES Globulin 3.1 2.7 - 4.2 07/26/2016 [facility] ELECTROLYTES B/C Ratio 19 6 - 25 07/26/2016 [facility] ELECTROLYTES A/G Ratio 1.1 0.7 - 1.6 07/26/2016 [facility] ELECTROLYTES eGFR 77 07/26/2016 Result Comment: The eGFR is calculated using the CKD-EPI formula. In most young, healthy individuals the eGFR will be >90 mL/min/1.73m2. The eGFR declines with age. An eGFR of 60-89 may be normal in some populations, particularly the elderly, for whom the CKD-EPI formula has not been extensively validated. Use of the eGFR is not recommended in the following populations:

Individuals with unstable creatinine concentrations, including patients and those with serious co-morbid conditions.

Patients with extremes in muscle mass or diet.

The data above are obtained from the National Kidney Disease Education Program (NKDEP) which additionally recommends that when the eGFR is used in patients with extremes of body mass index for purposes of drug dosing, the eGFR should be multiplied by the estimated BMI. [facility] ELECTROLYTES Bili Total 0.4 0.2 - 1.3 07/26/2016 [facility] ELECTROLYTES Alk Phos 109 39 - 136 07/26/2016 [facility] ELECTROLYTES AST 182 0 - 37 07/26/2016 [facility] ELECTROLYTES Glucose Lvl 131 70 - 99 07/26/2016 [facility] ELECTROLYTES BUN 21 7 - 22 07/26/2016 [facility] ELECTROLYTES Sodium Lvl 140 135 - 145 07/26/2016 [facility] ELECTROLYTES Creatinine Lvl 1.10 0.50 - 1.40 07/26/2016 [facility] ELECTROLYTES ALT 109 0 - 65 07/26/2016 [facility] ELECTROLYTES Albumin Lvl 3.3 3.5 - 5.0 07/26/2016 [facility] ELECTROLYTES Total Protein 6.4 6.4 - 8.4 07/26/2016 [facility] ELECTROLYTES Calcium Lvl 8.2 8.5 - 10.5 07/26/2016 [facility] ELECTROLYTES CO2 23 24 - 32 07/26/2016 [facility] ELECTROLYTES Chloride Lvl 110 95 - 109 07/26/2016 [facility] ELECTROLYTES Potassium Lvl 4.5 3.5 - 5.1 07/26/2016 [facility] HEMATOLOGY Basophils 0.3 0.0 - 1.0 07/26/2016 [facility] HEMATOLOGY Eosinophils 2.3 0.0 - 4.0 07/26/2016 [facility] Basophils # 0.0 0.0 - 0.2 07/26/2016 [facility] Lymphocytes 21.0 20.0 - 40.0 07/26/2016 [facility] Monocytes 7.9 2.0 - 12.0 07/26/2016 [facility] Segs 68.5 45.0 - 75.0 07/26/2016 [facility] Eosinophils # 0.2 0.0 - 0.5 07/26/2016 [facility] Lymphocytes # 1.5 1.0 - 5.5 07/26/2016 [facility] Monocytes # 0.6 0.0 - 0.8 07/26/2016 [facility] Segs-Bands # 5.0 1.5 - 8.1 07/26/2016 [facility] MCHC 33.5 32.0 - 36.0 07/26/2016 [facility] RDW 13.2 11.5 - 14.5 07/26/2016 [facility] MCH 30.4 27.0 - 31.0 07/26/2016 [facility] Hct 44.5 42.0 - 54.0 07/26/2016 [facility] MCV 90.9 80.0 - 94.0 07/26/2016 [facility] MPV 9.0 7.4 - 10.4 07/26/2016 [facility] Platelet 139 133 - 450 07/26/2016 [facility] Hgb 14.9 14.0 - 18.0 07/26/2016 [facility] HEMATOLOGY RBC 4.89 4.70 - 6.10 07/26/2016 [facility] HEMATOLOGY WBC 7.3 3.7 - 10.4 07/26/2016 [facility] HEMATOLOGY PT 14.6 12.0 - 14.7 07/26/2016 [facility] HEMATOLOGY INR 1.12 0.85 - 1.17 07/26/2016 [facility] CARDIAC ENZYMES Total CK 6880 12 - 191 07/25/2016 [facility] CHEM PANEL Magnesium Lvl 2.0 1.8 - 2.4 07/25/2016 [facility] CHEM PANEL Phosphorus 2.1 2.5 - 4.5 07/25/2016 [facility] ELECTROLYTES AGAP 12.3 10.0 - 20.0 07/25/2016 [facility] ELECTROLYTES Globulin 2.9 2.7 - 4.2 07/25/2016 [facility] ELECTROLYTES B/C Ratio 21 6 - 25 07/25/2016 [facility] ELECTROLYTES A/G Ratio 1.0 0.7 - 1.6 07/25/2016 [facility] ELECTROLYTES Bili Total 0.5 0.2 - 1.3 07/25/2016 [facility] ELECTROLYTES Alk Phos 119 39 - 136 07/25/2016 [facility] ELECTROLYTES ASPARTATE TRANSAMINASE 219 0 - 37 07/25/2016 [facility] ELECTROLYTES eGFR 63 07/25/2016 Result Comment: The eGFR is calculated using the CKD-EPI formula. In most young, healthy individuals the eGFR will be >90 mL/min/1.73m2. The eGFR declines with age. An eGFR of 60-89 may be normal in some populations, particularly the elderly, for whom the CKD-EPI formula has not been extensively validated. Use of the eGFR is not recommended in the following populations:

Individuals with unstable creatinine concentrations, including patients and those with serious co-morbid conditions.

Patients with extremes in muscle mass or diet.

The data above are obtained from the National Kidney Disease Education Program (NKDEP) which additionally recommends that when the eGFR is used in patients with extremes of body mass index for purposes of drug dosing, the eGFR should be multiplied by the estimated BMI. [facility] ELECTROLYTES ALANINE AMINOTRANSFERASE 87 0 - 65 07/25/2016 [facility] ELECTROLYTES Albumin Lvl 3.0 3.5 - 5.0 07/25/2016 [facility] ELECTROLYTES BUN 27 7 - 22 07/25/2016 [facility] ELECTROLYTES Glucose Lvl 180 70 - 99 07/25/2016 [facility] ELECTROLYTES Calcium Lvl 7.8 8.5 - 10.5 07/25/2016 [facility] ELECTROLYTES Total Protein 5.9 6.4 - 8.4 07/25/2016 [facility] ELECTROLYTES CO2 26 24 - 32 07/25/2016 [facility] ELECTROLYTES Potassium Lvl 3.3 3.5 - 5.1 07/25/2016 [facility] ELECTROLYTES Chloride Lvl 103 95 - 109 07/25/2016 [facility] ELECTROLYTES Sodium Lvl 138 135 - 145 07/25/2016 [facility] ELECTROLYTES Creatinine Lvl 1.30 0.50 - 1.40 07/25/2016 [facility] HEMATOLOGY MPV 9.1 7.4 - 10.4 07/25/2016 [facility] MCH 30.9 27.0 - 31.0 07/25/2016 [facility] MCV 89.1 80.0 - 94.0 07/25/2016 [facility] HEMATOLOGY Platelet 129 133 - 450 07/25/2016 [facility] RDW 13.4 11.5 - 14.5 07/25/2016 [facility] MCHC 34.7 32.0 - 36.0 07/25/2016 [facility] Hgb 15.0 14.0 - 18.0 07/25/2016 [facility] WBC 6.8 3.7 - 10.4 07/25/2016 [facility] Hct 43.4 42.0 - 54.0 07/25/2016 [facility] RBC 4.87 4.70 - 6.10 07/25/2016 [facility] HEMATOLOGY PT 14.6 12.0 - 14.7 07/25/2016 [facility] HEMATOLOGY INR 1.12 0.85 - 1.17 07/25/2016 [facility] Lymphocytes 19.0 20.0 - 40.0 07/25/2016 [facility] Monocytes 8.2 2.0 - 12.0 07/25/2016 [facility] HEMATOLOGY Segs-Bands # 4.8 1.5 - 8.1 07/25/2016 [facility] HEMATOLOGY Eosinophils 2.1 0.0 - 4.0 07/25/2016 [facility] HEMATOLOGY Basophils 0.3 0.0 - 1.0 07/25/2016 [facility] HEMATOLOGY Monocytes # 0.6 0.0 - 0.8 07/25/2016 [facility] HEMATOLOGY Eosinophils # 0.1 0.0 - 0.5 07/25/2016 [facility] HEMATOLOGY Lymphocytes # 1.3 1.0 - 5.5 07/25/2016 [facility] HEMATOLOGY Segs 70.4 45.0 - 75.0 07/25/2016 [facility] CARDIAC ENZYMES Troponin-I 0.12 0.00 - 0.40 07/24/2016 [facility] [place] [address] 12 - 191 07/24/2016 [facility] CARDIAC ENZYMES CK MB Index 0.3 0.0 - 2.5 07/24/2016 [facility] CARDIAC ENZYMES CK MB 31.0 0.5 - 3.6 07/24/2016 [facility] CARDIAC ENZYMES Troponin-I 0.25 0.00 - 0.40 07/24/2016 [facility] CARDIAC ENZYMES CK MB 28.7 0.5 - 3.6 07/24/2016 [facility] CHEM PANEL Magnesium Lvl 2.1 1.8 - 2.4 07/24/2016 [facility] CHEM PANEL eGFR 30 07/24/2016 Result Comment: The eGFR is calculated using the CKD-EPI formula. In most young, healthy individuals the eGFR will be >90 mL/min/1.73m2. The eGFR declines with age. An eGFR of 60-89 may be normal in some populations, particularly the elderly, for whom the CKD-EPI formula has not been extensively validated. Use of the eGFR is not recommended in the following populations:

Individuals with unstable creatinine concentrations, including patients and those with serious co-morbid conditions.

Patients with extremes in muscle mass or diet.

The data above are obtained from the National Kidney Disease Education Program (NKDEP) which additionally recommends that when the eGFR is used in patients with extremes of body mass index for purposes of drug dosing, the eGFR should be multiplied by the estimated BMI. [facility] CHEM PANEL AST 231 0 - 37 07/24/2016 [facility] CHEM PANEL Alk Phos 96 39 - 136 07/24/2016 [facility] CHEM PANEL Bili Total 1.0 0.2 - 1.3 07/24/2016 [facility] CHEM PANEL A/G Ratio 0.7 0.7 - 1.6 07/24/2016 [facility] CHEM PANEL Globulin 5.3 2.7 - 4.2 07/24/2016 [facility] CHEM PANEL ALT 72 0 - 65 07/24/2016 [facility] CHEM PANEL B/C Ratio 16 6 - 25 07/24/2016 [facility] CHEM PANEL Calcium Lvl 8.4 8.5 - 10.5 07/24/2016 [facility] CHEM PANEL Albumin Lvl 3.7 3.5 - 5.0 07/24/2016 [facility] CHEM PANEL Total Protein 9.0 6.4 - 8.4 07/24/2016 [facility] CHEM PANEL Glucose Lvl 270 70 - 99 07/24/2016 [facility] CHEM PANEL Sodium Lvl 134 135 - 145 07/24/2016 [facility] CHEM PANEL Creatinine Lvl 2.40 0.50 - 1.40 07/24/2016 [facility] CHEM PANEL BUN 39 7 - 22 07/24/2016 [facility] CHEM PANEL Potassium Lvl 3.1 3.5 - 5.1 07/24/2016 [facility] CHEM PANEL Chloride Lvl 96 95 - 109 07/24/2016 [facility] CHEM PANEL CO2 22 24 - 32 07/24/2016 [facility] CHEM PANEL AGAP 19.1 10.0 - 20.0 07/24/2016 [facility] HEMATOLOGY WBC 14.7 3.7 - 10.4 07/24/2016 [facility] RBC 5.12 4.70 - 6.10 07/24/2016 [facility] MPV 9.2 7.4 - 10.4 07/24/2016 [facility] RDW 13.7 11.5 - 14.5 07/24/2016 [facility] Platelet 169 133 - 450 07/24/2016 [facility] MCH 31.0 27.0 - 31.0 07/24/2016 [facility] MCV 89.1 80.0 - 94.0 07/24/2016 [facility] MCHC 34.8 32.0 - 36.0 07/24/2016 [facility] HEMATOLOGY Hgb 15.9 14.0 - 18.0 07/24/2016 [facility] HEMATOLOGY Hct 45.6 42.0 - 54.0 07/24/2016 [facility] HEMATOLOGY PT 16.4 12.0 - 14.7 07/24/2016 [facility] HEMATOLOGY INR 1.30 0.85 - 1.17 07/24/2016 [facility] HEMATOLOGY Basophils 0.1 0.0 - 1.0 07/24/2016 [facility] HEMATOLOGY Monocytes # 1.7 0.0 - 0.8 07/24/2016 [facility] HEMATOLOGY Lymphocytes # 1.8 1.0 - 5.5 07/24/2016 [facility] HEMATOLOGY Segs-Bands # 11.1 1.5 - 8.1 07/24/2016 [facility] HEMATOLOGY Segs 75.8 45.0 - 75.0 07/24/2016 [facility] HEMATOLOGY Eosinophils 0.3 0.0 - 4.0 07/24/2016 [facility] HEMATOLOGY Lymphocytes 12.0 20.0 - 40.0 07/24/2016 [facility] HEMATOLOGY Monocytes 11.8 2.0 - 12.0 07/24/2016 [facility] LIPIDS CHD Risk 5.00 4.00 - 7.30 07/24/2016 [facility] LIPIDS VLDL 38 07/24/2016 [facility] LIPIDS LDL (Calculated) 66 <=99 mg/dL 07/24/2016 [facility] LIPIDS Chol 130 <=199 mg/dL 07/24/2016 [facility] LIPIDS Trig 189 <=149 mg/dL 07/24/2016 [facility] LIPIDS HDL 26 >=61 mg/dL 07/24/2016 [facility] DRUG SCREEN U Brigette Scr Negative *NA* (07/24/16 12:27 AM) Negative 07/24/2016 [facility] DRUG SCREEN U Cocaine Scr Positive *ABN* (07/24/16 12:27 AM) Negative 07/24/2016 [facility] DRUG SCREEN U Benzodia Scr Negative *NA* (07/24/16 12:27 AM) Negative 07/24/2016 [facility] DRUG SCREEN U Amph Scr Negative *NA* (07/24/16 12:27 AM) Negative 07/24/2016 [facility] DRUG SCREEN U Phencyc Scr Negative *NA* (07/24/16 12:27 AM) Negative 07/24/2016 [facility] DRUG SCREEN U Opiate Scr Negative *NA* (07/24/16 12:27 AM) Negative 07/24/2016 [facility] DRUG SCREEN U Cannab Scr Negative *NA* (07/24/16 12:27 AM) Negative 07/24/2016 [facility] DRUG SCREEN UDS Note See Note (07/24/16 12:27 AM) 07/24/2016 [facility] URINE AND STOOL UA Urobilinogen <=1.0 mg/dL 0.1 - 1.0 07/24/2016 [facility] URINE AND STOOL UA Color Yellow 07/24/2016 [facility] URINE AND STOOL UA Gran Cast 3 07/24/2016 [facility] URINE AND STOOL UA Glucose 500 mg/dL Negative mg/dL 07/24/2016 [facility] URINE AND STOOL UA pH 5.0 5.0 - 8.0 07/24/2016 [facility] URINE AND STOOL UA Spec Grav 1.022 <=1.030 07/24/2016 [facility] URINE AND STOOL UA Protein 100 mg/dL Negative mg/dL 07/24/2016 [facility] URINE AND STOOL UA Turbidity Moderate *ABN* (07/24/16 12:27 AM) Clear 07/24/2016 [facility] URINE AND STOOL UA Mucus Few /LPF None Seen /LPF 07/24/2016 [facility] URINE AND STOOL UA Hyal Cast 38 0 - 2 07/24/2016 [facility] URINE AND STOOL UA Sq Epi Many /LPF Few /LPF 07/24/2016 [facility] URINE AND STOOL UA Leuk Est Negative (07/24/16 12:27 AM) Negative 07/24/2016 [facility] URINE AND STOOL UA Bacteria Occasional /HPF None Seen /HPF 07/24/2016 [facility] URINE AND STOOL UA WBC 21 0 - 5 07/24/2016 [facility] URINE AND STOOL UA Nitrite Negative (07/24/16 12:27 AM) Negative 07/24/2016 [facility] URINE AND STOOL UA Ketones Negative mg/dL Negative mg/dL 07/24/2016 [facility] URINE AND STOOL UA Blood Large *ABN* (07/24/16 12:27 AM) Negative 07/24/2016 [facility] URINE AND STOOL UA Bili Negative *NA* (07/24/16 12:27 AM) Negative 07/24/2016 [facility] URINE CHEM U Sodium 19 07/24/2016 [facility] URINE CHEM U Chloride <10 07/24/2016 [facility] URINE CHEM U Potassium 63.2 07/24/2016 [facility] URINE CHEM U Protein 178.5 07/24/2016 [facility] URINE CHEM U Creatinine 282.00 07/24/2016 [facility] URINE CHEM U Osmolality 620 300 - 800 07/24/2016 [facility] URINE CHEM U Urea 724 07/24/2016 [facility] URINE CHEM U Eos None Seen (07/24/16 12:27 AM) None Seen 07/24/2016 [facility] URINE CHEM U Prot/Creat 0.6 07/24/2016 [facility] CARDIAC ENZYMES CK-MB INDEX 0.3 0.0 - 2.5 07/24/2016 [facility] CARDIAC ENZYMES BNP 881 <=100 pg/mL 07/24/2016 [facility] CARDIAC ENZYMES Troponin-I 0.34 0.00 - 0.40 07/24/2016 [facility] CHEM PANEL Lipase Lvl 185 73 - 393 07/24/2016 [facility] HEMATOLOGY Eosinophils # 0.0 0.0 - 0.5 07/24/2016 [facility] HEMATOLOGY Basophils # 0.0 0.0 - 0.2 07/24/2016 [facility] HEMATOLOGY PTT 32.9 22.9 - 35.8 07/24/2016 [facility] CARDIAC ENZYMES Total CK 141 12 - 191 06/23/2016 [facility] CARDIAC ENZYMES CK MB Index 1.8 0.0 - 2.5 06/23/2016 [facility] CARDIAC ENZYMES CK MB 2.6 0.5 - 3.6 06/23/2016 [facility] CARDIAC ENZYMES Troponin-I 0.03 0.00 - 0.40 06/23/2016 [facility] ELECTROLYTES Sodium Lvl 141 135 - 145 06/23/2016 [facility] ELECTROLYTES Creatinine Lvl 1.34 0.50 - 1.40 06/23/2016 [facility] ELECTROLYTES BUN 21 7 - 22 06/23/2016 [facility] ELECTROLYTES Potassium Lvl 4.1 3.5 - 5.1 06/23/2016 [facility] ELECTROLYTES Glucose Lvl 154 70 - 99 06/23/2016 [facility] ELECTROLYTES CO2 27 24 - 32 06/23/2016 [facility] ELECTROLYTES Calcium Lvl 8.0 8.5 - 10.5 06/23/2016 [facility] ELECTROLYTES Chloride Lvl 107 95 - 109 06/23/2016 [facility] ELECTROLYTES eGFR 61 06/23/2016 Result Comment: The eGFR is calculated using the CKD-EPI formula. In most young, healthy individuals the eGFR will be >90 mL/min/1.73m2. The eGFR declines with age. An eGFR of 60-89 may be normal in some populations, particularly the elderly, for whom the CKD-EPI formula has not been extensively validated. Use of the eGFR is not recommended in the following populations:

Individuals with unstable creatinine concentrations, including patients and those with serious co-morbid conditions.

Patients with extremes in muscle mass or diet.

The data above are obtained from the National Kidney Disease Education Program (NKDEP) which additionally recommends that when the eGFR is used in patients with extremes of body mass index for purposes of drug dosing, the eGFR should be multiplied by the estimated BMI. [facility] ELECTROLYTES AGAP 11.1 10.0 - 20.0 06/23/2016 [facility] HEMATOLOGY Segs 79.5 45.0 - 75.0 06/23/2016 [facility] HEMATOLOGY Lymphocytes 13.3 20.0 - 40.0 06/23/2016 [facility] HEMATOLOGY Monocytes 4.6 2.0 - 12.0 06/23/2016 [facility] HEMATOLOGY Eosinophils 2.4 0.0 - 4.0 06/23/2016 [facility] HEMATOLOGY Basophils 0.2 0.0 - 1.0 06/23/2016 [facility] HEMATOLOGY Monocytes # 0.4 0.0 - 0.8 06/23/2016 [facility] HEMATOLOGY Eosinophils # 0.2 0.0 - 0.5 06/23/2016 [facility] HEMATOLOGY Lymphocytes # 1.1 1.0 - 5.5 06/23/2016 [facility] Segs-Bands # 6.4 1.5 - 8.1 06/23/2016 [facility] Basophils # 0.0 0.0 - 0.2 06/23/2016 [facility] MCV 92.3 80.0 - 94.0 06/23/2016 [facility] Hct 42.3 42.0 - 54.0 06/23/2016 [facility] WBC 8.1 3.7 - 10.4 06/23/2016 [facility] Platelet 193 133 - 450 06/23/2016 [facility] RDW 14.3 11.5 - 14.5 06/23/2016 [facility] MCHC 34.3 32.0 - 36.0 06/23/2016 [facility] RBC 4.58 4.70 - 6.10 06/23/2016 [facility] Hgb 14.5 14.0 - 18.0 06/23/2016 [facility] MPV 8.5 7.4 - 10.4 06/23/2016 [facility] MCH 31.7 27.0 - 31.0 06/23/2016 [facility] HEMATOLOGY INR 1.17 0.85 - 1.17 06/23/2016 [facility] HEMATOLOGY PT 15.1 12.0 - 14.7 06/23/2016 [facility] PTT 30.3 22.9 - 35.8 06/23/2016 [facility] DRUG SCREEN U Propoxyph Scr Negative *NA* (10/13/15 9:49 AM) Negative 10/13/2015 [facility] DRUG SCREEN U Methadone Scr Negative *NA* (10/13/15 9:49 AM) Negative 10/13/2015 [facility] DRUG SCREEN UDS Note See Note (10/13/15 9:49 AM) 10/13/2015 [facility] [facility] DRUG SCREEN U Opiate Scr Negative *NA* (10/13/15 9:49 AM) Negative 10/13/2015 [facility] DRUG SCREEN U Phencyc Scr Negative *NA* (10/13/15 9:49 AM) Negative 10/13/2015 [facility] DRUG SCREEN U Cocaine Scr Positive *ABN* (10/13/15 9:49 AM) Negative 10/13/2015 [facility] DRUG SCREEN U Benzodia Scr Negative *NA* (10/13/15 9:49 AM) Negative 10/13/2015 [facility] DRUG SCREEN U Cannab Scr Negative *NA* (10/13/15 9:49 AM) Negative 10/13/2015 [facility] DRUG SCREEN U Brigette Scr Negative *NA* (10/13/15 9:49 AM) Negative 10/13/2015 [facility] DRUG SCREEN U Amph Scr Negative *NA* (10/13/15 9:49 AM) Negative 10/13/2015 [facility] CARDIAC ENZYMES CK MB 2.3 0.5 - 3.6 10/13/2015 [facility] CARDIAC ENZYMES Total CK 499 12 - 191 10/13/2015 [facility] CHEM PANEL Magnesium Lvl 2.1 1.8 - 2.4 10/13/2015 [facility] CHEM PANEL eGFR 58 10/13/2015 Result Comment: The eGFR is calculated using the CKD-EPI formula. In most young, healthy individuals the eGFR will be >90 mL/min/1.73m2. The eGFR declines with age. An eGFR of 60-89 may be normal in some populations, particularly the elderly, for whom the CKD-EPI formula has not been extensively validated. Use of the eGFR is not recommended in the following populations:

Individuals with unstable creatinine concentrations, including patients and those with serious co-morbid conditions.

Patients with extremes in muscle mass or diet.

The data above are obtained from the National Kidney Disease Education Program (NKDEP) which additionally recommends that when the eGFR is used in patients with extremes of body mass index for purposes of drug dosing, the eGFR should be multiplied by the estimated BMI. [facility] CHEM PANEL Chloride Lvl 106 95 - 109 10/13/2015 [facility] CHEM PANEL Calcium Lvl 8.9 8.5 - 10.5 10/13/2015 [facility] CHEM PANEL AGAP 10.1 10.0 - 20.0 10/13/2015 [facility] CHEM PANEL CO2 29 24 - 32 10/13/2015 [facility] CHEM PANEL Glucose Lvl 206 70 - 99 10/13/2015 [facility] CHEM PANEL Sodium Lvl 141 135 - 145 10/13/2015 [facility] CHEM PANEL Potassium Lvl 4.1 3.5 - 5.1 10/13/2015 [facility] CHEM PANEL BUN 30 7 - 22 10/13/2015 [facility] CHEM PANEL Creatinine Lvl 1.40 0.50 - 1.40 10/13/2015 [facility] HEMATOLOGY Platelet 131 133 - 450 10/13/2015 [facility] HEMATOLOGY Hgb 14.5 14.0 - 18.0 10/13/2015 [facility] HEMATOLOGY WBC 6.4 3.7 - 10.4 10/13/2015 [facility] HEMATOLOGY RBC 4.73 4.70 - 6.10 10/13/2015 [facility] HEMATOLOGY Hct 42.3 42.0 - 54.0 10/13/2015 [facility] MCHC 34.2 32.0 - 36.0 10/13/2015 [facility] RDW 13.5 11.5 - 14.5 10/13/2015 [facility] HEMATOLOGY MCV 89.4 80.0 - 94.0 10/13/2015 [facility] MCH 30.6 27.0 - 31.0 10/13/2015 [facility] MPV 8.5 7.4 - 10.4 10/13/2015 [facility] HEMATOLOGY Segs 67.0 45.0 - 75.0 10/13/2015 [facility] Lymphocytes 18.0 20.0 - 40.0 10/13/2015 [facility] HEMATOLOGY Monocytes # 0.8 0.0 - 0.8 10/13/2015 [facility] HEMATOLOGY Eosinophils # 0.2 0.0 - 0.5 10/13/2015 [facility] HEMATOLOGY Monocytes 11.9 2.0 - 12.0 10/13/2015 [facility] HEMATOLOGY Eosinophils 2.6 0.0 - 4.0 10/13/2015 [facility] HEMATOLOGY Segs-Bands # 4.3 1.5 - 8.1 10/13/2015 [facility] Lymphocytes # 1.2 1.0 - 5.5 10/13/2015 [facility] HEMATOLOGY Basophils 0.5 0.0 - 1.0 10/13/2015 [facility] LIPIDS CHD Risk 3.53 4.00 - 7.30 10/13/2015 [facility] LIPIDS LDL (Calculated) 42 <=99 mg/dL 10/13/2015 [facility] LIPIDS VLDL 34 10/13/2015 [facility] LIPIDS Chol 106 <=199 mg/dL 10/13/2015 [facility] LIPIDS Trig 170 <=149 mg/dL 10/13/2015 [facility] LIPIDS HDL 30 >=61 mg/dL 10/13/2015 [facility] CARDIAC ENZYMES Troponin-I 0.04 0.00 - 0.40 10/13/2015 [facility] CARDIAC ENZYMES CK MB 2.2 0.5 - 3.6 10/13/2015 [facility] CARDIAC ENZYMES Total CK 578 12 - 191 10/13/2015 [facility] CARDIAC ENZYMES BNP 439 <=100 pg/mL 10/12/2015 [facility] CARDIAC ENZYMES CK MB 1.8 0.5 - 3.6 10/12/2015 [facility] CARDIAC ENZYMES Total CK 549 12 - 191 10/12/2015 [facility] CARDIAC ENZYMES Troponin-I 0.04 0.00 - 0.40 10/12/2015 [facility] CARDIAC ENZYMES CK MB Index 0.3 0.0 - 2.5 10/12/2015 [facility] CHEM PANEL eGFR 63 10/12/2015 Result Comment: The eGFR is calculated using the CKD-EPI formula. In most young, healthy individuals the eGFR will be >90 mL/min/1.73m2. The eGFR declines with age. An eGFR of 60-89 may be normal in some populations, particularly the elderly, for whom the CKD-EPI formula has not been extensively validated. Use of the eGFR is not recommended in the following populations:

Individuals with unstable creatinine concentrations, including patients and those with serious co-morbid conditions.

Patients with extremes in muscle mass or diet.

The data above are obtained from the National Kidney Disease Education Program (NKDEP) which additionally recommends that when the eGFR is used in patients with extremes of body mass index for purposes of drug dosing, the eGFR should be multiplied by the estimated BMI. [facility] CHEM PANEL Bili Total 0.7 0.2 - 1.3 10/12/2015 [facility] CHEM PANEL Chloride Lvl 114 95 - 109 10/12/2015 [facility] CHEM PANEL Glucose Lvl 121 70 - 99 10/12/2015 [facility] CHEM PANEL BUN 25 7 - 22 10/12/2015 [facility] CHEM PANEL Creatinine Lvl 1.30 0.50 - 1.40 10/12/2015 [facility] CHEM PANEL Sodium Lvl 146 135 - 145 10/12/2015 [facility] CHEM PANEL Potassium Lvl 2.9 3.5 - 5.1 10/12/2015 Result Comment: Critical Result(s) called to [facility] at 10/12/2015 18:56 by BP. Read back OK. [facility] CHEM PANEL AST 17 0 - 37 10/12/2015 [facility] CHEM PANEL Alk Phos 80 39 - 136 10/12/2015 [facility] CHEM PANEL ALT 22 0 - 65 10/12/2015 [facility] CHEM PANEL A/G Ratio 1.3 0.7 - 1.6 10/12/2015 [facility] CHEM PANEL Globulin 2.4 2.0 - 4.0 10/12/2015 [facility] CHEM PANEL Calcium Lvl 6.5 8.5 - 10.5 10/12/2015 [facility] CHEM PANEL Total Protein 5.6 6.4 - 8.4 10/12/2015 [facility] CHEM PANEL Albumin Lvl 3.2 3.5 - 5.0 10/12/2015 [facility] CHEM PANEL AGAP 9.9 10.0 - 20.0 10/12/2015 [facility] CHEM PANEL B/C Ratio 19 6 - 25 10/12/2015 [facility] CHEM PANEL CO2 25 24 - 32 10/12/2015 [facility] HEMATOLOGY Platelet 181 133 - 450 10/12/2015 [facility] HEMATOLOGY RDW 13.4 11.5 - 14.5 10/12/2015 [facility] HEMATOLOGY MPV 8.3 7.4 - 10.4 10/12/2015 [facility] HEMATOLOGY MCHC 33.5 32.0 - 36.0 10/12/2015 [facility] HEMATOLOGY WBC 11.5 3.7 - 10.4 10/12/2015 [facility] HEMATOLOGY RBC 5.06 4.70 - 6.10 10/12/2015 [facility] HEMATOLOGY Hct 45.3 42.0 - 54.0 10/12/2015 [facility] HEMATOLOGY MCH 29.9 27.0 - 31.0 10/12/2015 [facility] HEMATOLOGY Hgb 15.2 14.0 - 18.0 10/12/2015 [facility] HEMATOLOGY MCV 89.5 80.0 - 94.0 10/12/2015 [facility] HEMATOLOGY Segs 74.0 45.0 - 75.0 10/12/2015 [facility] HEMATOLOGY Monocytes 10.8 2.0 - 12.0 10/12/2015 [facility] HEMATOLOGY Lymphocytes 14.5 20.0 - 40.0 10/12/2015 [facility] HEMATOLOGY Eosinophils 0.6 0.0 - 4.0 10/12/2015 [facility] HEMATOLOGY Monocytes # 1.2 0.0 - 0.8 10/12/2015 [facility] HEMATOLOGY Eosinophils # 0.1 0.0 - 0.5 10/12/2015 [facility] HEMATOLOGY Basophils 0.1 0.0 - 1.0 10/12/2015 [facility] HEMATOLOGY Segs-Bands # 8.5 1.5 - 8.1 10/12/2015 [facility] Lymphocytes # 1.7 1.0 - 5.5 10/12/2015 [facility] Basophils # 0.0 0.0 - 0.2 10/12/2015 [facility] HEMATOLOGY INR 2.00 0.85 - 1.17 10/12/2015 [facility] HEMATOLOGY PT 23.0 12.0 - 14.7 10/12/2015 [facility] PTT 36.4 22.9 - 35.8 10/12/2015 [facility] URINALYSIS UA Mucus Few /LPF None Seen 05/10/2013 [facility] [place] URINALYSIS UA Ketones TR 05/10/2013 [facility] [place] URINALYSIS UA Protein >=300 mg/dL Negative 05/10/2013 ABN [facility] [place] URINALYSIS UA Spec Grav 1.028 <=1.030 05/10/2013 Normal [facility] [place] URINALYSIS UA Turbidity Slight *ABN* (05/10/2013 05:25:57) Clear 05/10/2013 ABN [facility] [place] URINALYSIS UA Color [place] *ABN* (05/10/2013 05:25:57) Yellow 05/10/2013 ABN [facility] [place] URINALYSIS UA pH 6.0 5.0 - 8.0 05/10/2013 Normal [facility] [place] URINALYSIS UA Leuk Est Negative (05/10/2013 05:25:57) Negative 05/10/2013 Normal [facility] [place] URINALYSIS UA Nitrite Negative (05/10/2013 05:25:57) Negative 05/10/2013 Normal [facility] [place] URINALYSIS UA Bili Moderate *ABN* (05/10/2013 05:25:57) Negative 05/10/2013 ABN [facility] [place] URINALYSIS UA Glucose Negative mg/dL Negative 05/10/2013 [facility] [place] URINALYSIS UA Urobilinogen 8.0 0.1 - 1.0 05/10/2013 HI [facility] [place] URINALYSIS UA Blood Negative (05/10/2013 05:25:57) Negative 05/10/2013 Normal [facility] [place] URINALYSIS UA Sq Epi Moderate /LPF Few 05/10/2013 ABN [facility] [place] URINALYSIS UA Bacteria Moderate /HPF None Seen 05/10/2013 ABN [facility] [place] CHEMISTRY BNP 2058 <=100 05/10/2013 [facility] <sup>3</sup>Interpretive Data: Elevated results are in line with increasing severity of
congestive heart failure. Minor elevations between 100 and 300
may be seen with Myocardial Ischemia, Sodium retaining drugs,
and compensated/treated heart failure. [facility] [facility] CHEMISTRY Lipase Lvl 83 73 - 393 05/10/2013 Normal [facility] [place] CHEMISTRY Albumin Lvl 3.7 3.5 - 5.0 05/10/2013 Normal [facility] [place] CHEMISTRY Bili Total 2.6 0.2 - 1.3 05/10/2013 HI [facility] [place] CHEMISTRY ALANINE AMINOTRANSFERASE 65 0 - 65 05/10/2013 Normal [facility] [place] CHEMISTRY ASPARTATE TRANSAMINASE 50 0 - 37 05/10/2013 [facility] CHEMISTRY A/G Ratio 1.2 0.7 - 1.6 05/10/2013 Normal [facility] [place] CHEMISTRY AGAP 14.4 10.0 - 20.0 05/10/2013 Normal [facility] [place] CHEMISTRY Globulin 3.0 2.0 - 4.0 05/10/2013 Normal [facility] [place] CHEMISTRY B/C Ratio 16 6 - 25 05/10/2013 Normal [facility] [place] CHEMISTRY Glucose Lvl 131 70 - 99 05/10/2013 [facility] <sup>2</sup>Interpretive Data: Adult reference range values reflect the clinical guidelines
of the [employer] [employer]. [facility] CHEMISTRY Creatinine Lvl 1.2 0.5 - 1.4 05/10/2013 Normal [facility] [place] CHEMISTRY BUN 19 7 - 22 05/10/2013 Normal [facility] [place] CHEMISTRY Sodium Lvl 138 135 - 145 05/10/2013 Normal [facility] [place] CHEMISTRY Potassium Lvl 4.4 3.5 - 5.1 05/10/2013 Normal [facility] [place] CHEMISTRY CO2 22 24 - 32 05/10/2013 LOW [facility] [place] CHEMISTRY Chloride Lvl 106 95 - 109 05/10/2013 Normal [facility] [place] CHEMISTRY Total Protein 6.7 6.4 - 8.4 05/10/2013 Normal [facility] [place] CHEMISTRY Calcium Lvl 8.5 8.5 - 10.5 05/10/2013 Normal [facility] [place] CHEMISTRY eGFR 71 05/10/2013 <sup>1</sup>Result Comment: The eGFR is calculated using the CKD-EPI formula. In most young, healthy individuals the eGFR will be >90 mL/min/1.73m2. The eGFR declines with age. An eGFR of 60-89 may be normal in some populations, particularly the elderly, for whom the CKD-EPI formula has not been extensively validated. Use of the eGFR is not recommended in the following populations:& lt;br/>
Individuals with unstable creatinine concentrations, including patients and those with serious co-morbid conditions.

Patients with extremes in muscle mass or diet.

The data above are obtained from the National Kidney Disease Education Program (NKDEP) which additionally recommends that when the eGFR is used in patients with extremes of body mass index for purposes of drug dosing, the eGFR should be multiplied by the estimated BMI. [facility] CHEMISTRY Alk Phos 155 39 - 136 05/10/2013 [facility] CHEMISTRY Troponin-I <0.02 0.00 - 0.40 05/10/2013 Normal [facility] [place] CHEMISTRY CK MB 1.0 0.5 - 3.6 05/10/2013 Normal [facility] [place] CHEMISTRY Total CK 93 12 - 191 05/10/2013 Normal [facility] [place] CHEMISTRY CK-MB INDEX 1.1 0.0 - 2.5 05/10/2013 Normal [facility] [place] HEMATOLOGY Platelet 213 133 - 450 05/10/2013 Normal [facility] [place] HEMATOLOGY MPV 8.9 7.4 - 10.4 05/10/2013 Normal [facility] [place] HEMATOLOGY RDW 22.5 11.5 - 14.5 05/10/2013 [facility] HEMATOLOGY MCHC 32.5 32.0 - 36.0 05/10/2013 Normal [facility] [place] HEMATOLOGY WBC X 10x3 8.1 3.7 - 10.4 05/10/2013 Normal [facility] [place] HEMATOLOGY RBC X 10x6 5.27 4.70 - 6.10 05/10/2013 Normal [facility] [place] HEMATOLOGY Hgb 14.0 14.0 - 18.0 05/10/2013 Normal [facility] [place] HEMATOLOGY Hct 43.2 42.0 - 54.0 05/10/2013 Normal [facility] [place] HEMATOLOGY MCH 26.6 27.0 - 31.0 05/10/2013 LOW [facility] [place] HEMATOLOGY MCV 81.9 80.0 - 94.0 05/10/2013 Normal [facility] [place] HEMATOLOGY aPTT 30.7 22.9 - 35.8 05/10/2013 Normal <sup>5</sup>Interpretive Data: Heparin Therapeutic Range: 57 - 92 Seconds [facility] [place] HEMATOLOGY INR 1.78 0.85 - 1.17 05/10/2013 [facility] <sup>4</sup>Interpretive Data: RECOMMENDED RANGES FOR PROTIME INR:
2.0-3.0 for most medical and surgical thromboembolic states.
2.5-3.5 for artificial heart valves and recurrent embolism.

INR SHOULD BE USED ONLY FOR PATIENTS ON STABLE ANTICOAGULANT THERAPY. [facility] HEMATOLOGY PROTIME 20.4 12.0 - 14.7 05/10/2013 HI [facility] [place] HEMATOLOGY Polychrom Slight (05/10/2013 05:15:00) None Seen 05/10/2013 Normal [facility] [place] HEMATOLOGY Basophils # 0.0 0.0 - 0.2 05/10/2013 Normal [facility] [place] HEMATOLOGY Tear Cell Slight *ABN* (05/10/2013 05:15:00) None Seen 05/10/2013 ABN [facility] [place] HEMATOLOGY Lymphocytes # 1.0 1.0 - 5.5 05/10/2013 Normal [facility] [place] HEMATOLOGY Segs-Bands # 6.4 1.5 - 8.1 05/10/2013 Normal [facility] [place] HEMATOLOGY Basophils 0.3 0.0 - 1.0 05/10/2013 Normal [facility] [place] HEMATOLOGY Eosinophils # 0.1 0.0 - 0.5 05/10/2013 Normal [facility] [place] HEMATOLOGY Monocytes # 0.7 0.0 - 0.8 05/10/2013 Normal [facility] [place] HEMATOLOGY Elliptocyte Slight *ABN* (05/10/2013 05:15:00) None Seen 05/10/2013 ABN [facility] [place] HEMATOLOGY Eosinophils 0.7 0.0 - 4.0 05/10/2013 Normal [facility] [place] HEMATOLOGY Monocytes 8.0 2.0 - 12.0 05/10/2013 Normal [facility] [place] HEMATOLOGY Lymphocytes 12.2 20.0 - 40.0 05/10/2013 LOW [facility] [place] HEMATOLOGY Segs 78.8 45.0 - 75.0 05/10/2013 HI [facility] [place] HEMATOLOGY Plt Morph Normal (05/10/2013 05:15:00) 05/10/2013 Normal [facility] [place] CHEMISTRY Globulin 3.2 2.0 - 4.0 05/07/2013 Normal [facility] [place] CHEMISTRY A/G Ratio 1.2 0.7 - 1.6 05/07/2013 Normal [facility] [place] CHEMISTRY B/C Ratio 14 6 - 25 05/07/2013 Normal [facility] [place] CHEMISTRY AGAP 14.5 10.0 - 20.0 05/07/2013 Normal [facility] [place] CHEMISTRY eGFR 112 05/07/2013 <sup>1</sup>Result Comment: The eGFR is calculated using the CKD-EPI formula. In most young, healthy individuals the eGFR will be >90 mL/min/1.73m2. The eGFR declines with age. An eGFR of 60-89 may be normal in some populations, particularly the elderly, for whom the CKD-EPI formula has not been extensively validated. Use of the eGFR is not recommended in the following populations:& lt;br/>
Individuals with unstable creatinine concentrations, including patients and those with serious co-morbid conditions.

Patients with extremes in muscle mass or diet.

The data above are obtained from the National Kidney Disease Education Program (NKDEP) which additionally recommends that when the eGFR is used in patients with extremes of body mass index for purposes of drug dosing, the eGFR should be multiplied by the estimated BMI. [facility] CHEMISTRY ASPARTATE TRANSAMINASE 36 0 - 37 05/07/2013 Normal [facility] [place] CHEMISTRY Albumin Lvl 3.7 3.5 - 5.0 05/07/2013 Normal [facility] [place] CHEMISTRY Bili Total 2.5 0.2 - 1.3 05/07/2013 HI [facility] [place] CHEMISTRY ALANINE AMINOTRANSFERASE 22 0 - 65 05/07/2013 Normal [facility] [place] CHEMISTRY Alk Phos 158 39 - 136 05/07/2013 [facility] CHEMISTRY Chloride Lvl 106 95 - 109 05/07/2013 Normal [facility] [place] CHEMISTRY CO2 23 24 - 32 05/07/2013 LOW [facility] [place] [place] CHEMISTRY Total Protein 6.9 6.4 - 8.4 05/07/2013 Normal [facility] [place] CHEMISTRY Calcium Lvl 8.3 8.5 - 10.5 05/07/2013 LOW [facility] [place] CHEMISTRY Potassium Lvl 5.5 3.5 - 5.1 05/07/2013 [facility] CHEMISTRY BUN 10 7 - 22 05/07/2013 Normal [facility] [place] CHEMISTRY Glucose Lvl 131 70 - 99 05/07/2013 HI <sup>2</sup>Interpretive Data: Adult reference range values reflect the clinical guidelines
of the [employer] [employer]. [facility] CHEMISTRY Sodium Lvl 138 135 - 145 05/07/2013 Normal [facility] [place] CHEMISTRY Creatinine Lvl 0.7 0.5 - 1.4 05/07/2013 Normal [facility] [place] [place] CHEMISTRY BNP 2487 <=100 05/07/2013 HI <sup>3</sup>Interpretive Data: Elevated results are in line with increasing severity of
congestive heart failure. Minor elevations between 100 and 300
may be seen with Myocardial Ischemia, Sodium retaining drugs,
and compensated/treated heart failure. [facility] CHEMISTRY CK-MB INDEX 0.6 0.0 - 2.5 05/07/2013 Normal [facility] [place] CHEMISTRY CK MB 1.0 0.5 - 3.6 05/07/2013 Normal [facility] [place] CHEMISTRY Total CK 162 12 - 191 05/07/2013 Normal [facility] [place] CHEMISTRY Troponin-I 0.02 0.00 - 0.40 05/07/2013 Normal [facility] [place] HEMATOLOGY RDW 21.4 11.5 - 14.5 05/07/2013 [facility] HEMATOLOGY MPV 9.2 7.4 - 10.4 05/07/2013 Normal [facility] [place] HEMATOLOGY Platelet 217 133 - 450 05/07/2013 Normal [facility] [place] HEMATOLOGY MCHC 32.3 32.0 - 36.0 05/07/2013 Normal [facility] [place] HEMATOLOGY MCH 26.3 27.0 - 31.0 05/07/2013 LOW [facility] [place] HEMATOLOGY MCV 81.4 80.0 - 94.0 05/07/2013 Normal [facility] [place] HEMATOLOGY Hct 43.3 42.0 - 54.0 05/07/2013 Normal [facility] [place] HEMATOLOGY Hgb 14.0 14.0 - 18.0 05/07/2013 Normal [facility] [place] HEMATOLOGY RBC X 10x6 5.32 4.70 - 6.10 05/07/2013 Normal [facility] [place] HEMATOLOGY WBC X 10x3 9.4 3.7 - 10.4 05/07/2013 Normal [facility] [place] HEMATOLOGY Basophils # 0.0 0.0 - 0.2 05/07/2013 Normal [facility] [place] HEMATOLOGY Lymphocytes 11.5 20.0 - 40.0 05/07/2013 LOW [facility] [place] HEMATOLOGY Eosinophils # 0.0 0.0 - 0.5 05/07/2013 Normal [facility] [place] HEMATOLOGY Lymphocytes # 1.1 1.0 - 5.5 05/07/2013 Normal [facility] [place] HEMATOLOGY Monocytes # 0.8 0.0 - 0.8 05/07/2013 Normal [facility] [place] HEMATOLOGY Basophils 0.2 0.0 - 1.0 05/07/2013 Normal [facility] [place] HEMATOLOGY Segs-Bands # 7.5 1.5 - 8.1 05/07/2013 Normal [facility] [place] HEMATOLOGY Monocytes 8.4 2.0 - 12.0 05/07/2013 Normal [facility] [place] HEMATOLOGY Eosinophils 0.4 0.0 - 4.0 05/07/2013 Normal [facility] [place] HEMATOLOGY Segs 79.5 45.0 - 75.0 05/07/2013 [place] [facility] [place] URINALYSIS UA Hyal Cast 0-2 (04/25/2013 10:35:18) 0 - 2 04/25/2013 Normal [facility] URINALYSIS UA Sq Epi Rare /LPF Few 04/25/2013 Normal [facility] URINALYSIS UA Leuk Est Negative (04/25/2013 10:35:18) Negative 04/25/2013 Normal [facility] URINALYSIS UA Urobilinogen 0.2 0.1 - 1.0 04/25/2013 Normal [facility] URINALYSIS UA Nitrite Negative (04/25/2013 10:35:18) Negative 04/25/2013 Normal [facility] URINALYSIS UA Protein 30 mg/dL Negative 04/25/2013 ABN [facility] URINALYSIS UA Bili Negative *NA* (04/25/2013 10:35:18) Negative 04/25/2013 [facility] URINALYSIS UA Blood Negative (04/25/2013 10:35:18) Negative 04/25/2013 Normal [facility] URINALYSIS UA pH 6.0 5.0 - 8.0 04/25/2013 Normal [facility] URINALYSIS UA Glucose Negative (04/25/2013 10:35:18) Negative 04/25/2013 Normal [facility] URINALYSIS UA Ketones Negative *NA* (04/25/2013 10:35:18) Negative 04/25/2013 [facility] URINALYSIS UA Turbidity Clear (04/25/2013 10:35:18) Clear 04/25/2013 Normal [facility] URINALYSIS UA Spec Grav 1.020 <=1.030 04/25/2013 Normal [facility] URINALYSIS UA Color Yellow *NA* (04/25/2013 10:35:18) Yellow 04/25/2013 [facility] IMMUNOLOGY CDC HIV 4th GEN Negative (04/25/2013 10:05:00) Negative 04/25/2013 Normal [facility] CHEMISTRY proBNP 6468 0 - 125 04/25/2013 HI [facility] CHEMISTRY CK-MB INDEX 0.7 0.0 - 2.5 04/25/2013 Normal [facility] CHEMISTRY Lipase Lvl 129 73 - 393 04/25/2013 Normal [facility] CHEMISTRY eGFR 112 04/25/2013 <sup>1</sup>Result Comment: The eGFR is calculated using the CKD-EPI formula. In most young, healthy individuals the eGFR will be >90 mL/min/1.73m2. The eGFR declines with age. An eGFR of 60-89 may be normal in some populations, particularly the elderly, for whom the CKD-EPI formula has not been extensively validated. Use of the eGFR is not recommended in the following populations:& lt;br/>
Individuals with unstable creatinine concentrations, including patients and those with serious co-morbid conditions.

Patients with extremes in muscle mass or diet.

The data above are obtained from the National Kidney Disease Education Program (NKDEP) which additionally recommends that when the eGFR is used in patients with extremes of body mass index for purposes of drug dosing, the eGFR should be multiplied by the estimated BMI. [facility] CHEMISTRY Total Protein 7.2 6.4 - 8.4 04/25/2013 Normal [facility] CHEMISTRY B/C Ratio 21 6 - 25 04/25/2013 Normal [facility] CHEMISTRY Alk Phos 151 39 - 136 04/25/2013 HI [facility] CHEMISTRY Globulin 3.5 2.0 - 4.0 04/25/2013 Normal [facility] CHEMISTRY Albumin Lvl 3.7 3.5 - 5.0 04/25/2013 Normal [facility] CHEMISTRY A/G Ratio 1.1 0.7 - 1.6 04/25/2013 Normal [facility] CHEMISTRY ASPARTATE TRANSAMINASE 40 0 - 37 04/25/2013 HI [facility] CHEMISTRY CO2 28 24 - 32 04/25/2013 Normal [facility] CHEMISTRY AGAP 13.5 10.0 - 20.0 04/25/2013 Normal [facility] CHEMISTRY Calcium Lvl 8.5 8.5 - 10.5 04/25/2013 Normal [facility] CHEMISTRY ALANINE AMINOTRANSFERASE 33 0 - 65 04/25/2013 Normal [facility] CHEMISTRY Bili Total 1.1 0.2 - 1.3 04/25/2013 Normal [facility] CHEMISTRY Sodium Lvl 136 135 - 145 04/25/2013 Normal [facility] CHEMISTRY Potassium Lvl 5.5 3.5 - 5.1 04/25/2013 HI [facility] CHEMISTRY Chloride Lvl 100 95 - 109 04/25/2013 Normal [facility] CHEMISTRY Creatinine Lvl 0.7 0.5 - 1.4 04/25/2013 Normal [facility] CHEMISTRY Glucose Lvl 214 70 - 99 04/25/2013 [place] <sup>2</sup>Interpretive Data: Adult reference range values reflect the clinical guidelines
of the [place] [employer]. [facility] CHEMISTRY BUN 15 7 - 22 04/25/2013 Normal [facility] CHEMISTRY Troponin-I 0.02 0.00 - 0.40 04/25/2013 Normal [facility] CHEMISTRY Total CK 169 12 - 191 04/25/2013 Normal [facility] CHEMISTRY CK MB 1.1 0.5 - 3.6 04/25/2013 Normal [facility] CHEMISTRY Magnesium Lvl 1.8 1.8 - 2.4 04/25/2013 Normal [facility] HEMATOLOGY Anisocyte 1+ *ABN* (04/25/2013 09:30:00) None Seen 04/25/2013 ABN [facility] HEMATOLOGY Basophils # 0.0 0.0 - 0.2 04/25/2013 Normal [facility] HEMATOLOGY Lymphocytes # 1.1 1.0 - 5.5 04/25/2013 Normal [facility] HEMATOLOGY Eosinophils # 0.1 0.0 - 0.5 04/25/2013 Normal [facility] HEMATOLOGY Monocytes # 0.5 0.0 - 0.8 04/25/2013 Normal [facility] HEMATOLOGY Lymphocytes 11.0 20.0 - 40.0 04/25/2013 LOW [facility] HEMATOLOGY Basophils 0.1 0.0 - 1.0 04/25/2013 Normal [facility] HEMATOLOGY Segs-Bands # 8.1 1.5 - 8.1 04/25/2013 Normal [facility] HEMATOLOGY Segs 82.5 45.0 - 75.0 04/25/2013 HI [facility] HEMATOLOGY Eosinophils 0.9 0.0 - 4.0 04/25/2013 Normal [facility] HEMATOLOGY Monocytes 5.5 2.0 - 12.0 04/25/2013 Normal [facility] HEMATOLOGY WBC X 10x3 9.8 3.7 - 10.4 04/25/2013 Normal [facility] HEMATOLOGY Platelet 234 133 - 450 04/25/2013 Normal [facility] MPV 10.0 7.4 - 10.4 04/25/2013 Normal [facility] MCHC 33.0 32.0 - 36.0 04/25/2013 Normal [facility] Hgb 14.4 14.0 - 18.0 04/25/2013 Normal [facility] HEMATOLOGY RDW 19.1 11.5 - 14.5 04/25/2013 HI [facility] HEMATOLOGY MCH 26.4 27.0 - 31.0 04/25/2013 LOW [facility] HEMATOLOGY Hct 43.8 42.0 - 54.0 04/25/2013 Normal [facility] HEMATOLOGY MCV 79.8 80.0 - 94.0 04/25/2013 LOW [facility] HEMATOLOGY RBC X 10x6 5.48 4.70 - 6.10 04/25/2013 Normal [facility] HEMATOLOGY aPTT 27.5 22.9 - 35.8 04/25/2013 Normal <sup>4</sup>Interpretive Data: Heparin Therapeutic Range: 57 - 92 Seconds [facility] HEMATOLOGY PROTIME 15.0 12.0 - 14.7 04/25/2013 HI [facility] HEMATOLOGY INR 1.19 0.85 - 1.17 04/25/2013 [place] <sup>3</sup>Interpretive Data: RECOMMENDED RANGES FOR PROTIME INR:
2.0-3.0 for most medical and surgical thromboembolic states.
2.5-3.5 for artificial heart valves and recurrent embolism.

INR SHOULD BE USED ONLY FOR PATIENTS ON STABLE ANTICOAGULANT THERAPY. [facility] BEDSIDE GLUCOSE TESTING Glucose POC 175 70 - 99 04/10/2013 [place] <sup>2</sup>Interpretive Data: Upper Reportable Limit: 200 mg/dL. [facility] BEDSIDE GLUCOSE TESTING Glucose POC 141 70 - 99 04/10/2013 [place] <sup>3</sup>Interpretive Data: Upper Reportable Limit: 200 mg/dL. [facility] BEDSIDE GLUCOSE TESTING Gluc POC Comment 1 Notified NEVA 04/10/2013 [facility] BEDSIDE GLUCOSE TESTING Glucose POC 146 70 - 99 04/10/2013 [place] <sup>4</sup>Interpretive Data: Upper Reportable Limit: 200 mg/dL. [facility] BEDSIDE GLUCOSE TESTING Gluc POC Comment 1 Notified NEVA 04/09/2013 [facility] BEDSIDE GLUCOSE TESTING Gluc POC Comment 1 Notified NEVA 04/09/2013 [facility] CHEMISTRY Ca Ion WB 1.00 1.05 - 1.25 04/08/2013 LOW [facility] CHEMISTRY Ca Norm WB 1.02 1.05 - 1.25 04/08/2013 LOW [facility] CHEMISTRY Magnesium Lvl 2.0 1.8 - 2.4 04/08/2013 Normal [facility] CHEMISTRY Bili Indirect 0.7 0.0 - 1.0 04/08/2013 Normal [facility] CHEMISTRY Globulin 2.7 2.0 - 4.0 04/08/2013 Normal [facility] CHEMISTRY A/G Ratio 1.2 0.7 - 1.6 04/08/2013 Normal [facility] CHEMISTRY Alk Phos 140 39 - 136 04/08/2013 [facility] CHEMISTRY ALANINE AMINOTRANSFERASE 27 0 - 65 04/08/2013 Normal [facility] CHEMISTRY Albumin Lvl 3.2 3.5 - 5.0 04/08/2013 LOW [facility] CHEMISTRY Bili Total 1.4 0.2 - 1.3 04/08/2013 [facility] CHEMISTRY Total Protein 5.9 6.4 - 8.4 04/08/2013 LOW [facility] CHEMISTRY Bili Direct 0.7 0.0 - 0.3 04/08/2013 [facility] CHEMISTRY ASPARTATE TRANSAMINASE 23 0 - 37 04/08/2013 Normal [facility] CHEMISTRY Phosphorus 3.5 2.5 - 4.5 04/08/2013 Normal [facility] CHEMISTRY eGFR 73 04/08/2013 <sup>5</sup>Result Comment: The eGFR is calculated using the CKD-EPI formula. In most young, healthy individuals the eGFR will be >90 mL/min/1.73m2. The eGFR declines with age. An eGFR of 60-89 may be normal in some populations, particularly the elderly, for whom the CKD-EPI formula has not been extensively validated. Use of the eGFR is not recommended in the following populations:& lt;br/>
Individuals with unstable creatinine concentrations, including patients and those with serious co-morbid conditions.

Patients with extremes in muscle mass or diet.

The data above are obtained from the National Kidney Disease Education Program (NKDEP) which additionally recommends that when the eGFR is used in patients with extremes of body mass index for purposes of drug dosing, the eGFR should be multiplied by the estimated BMI. [facility] CHEMISTRY Calcium Lvl 7.8 8.5 - 10.5 04/08/2013 LOW [facility] CHEMISTRY Sodium Lvl 142 135 - 145 04/08/2013 Normal [facility] CHEMISTRY CO2 30 24 - 32 04/08/2013 Normal [facility] CHEMISTRY Chloride Lvl 104 95 - 109 04/08/2013 Normal [facility] CHEMISTRY Potassium Lvl 3.7 3.5 - 5.1 04/08/2013 Normal [facility] CHEMISTRY Creatinine Lvl 1.2 0.5 - 1.4 04/08/2013 Normal [facility] CHEMISTRY Glucose Lvl 115 70 - 99 04/08/2013 [place] <sup>8</sup>Interpretive Data: Adult reference range values reflect the clinical guidelines
of the [place] [employer]. [facility] CHEMISTRY BUN 21 7 - 22 04/08/2013 Normal [facility] CHEMISTRY AGAP 11.7 10.0 - 20.0 04/08/2013 Normal [facility] HEMATOLOGY Platelet 221 133 - 450 04/08/2013 Normal [facility] HEMATOLOGY MPV 9.1 7.4 - 10.4 04/08/2013 Normal [facility] HEMATOLOGY RDW 18.3 11.5 - 14.5 04/08/2013 HI [facility] HEMATOLOGY MCHC 32.1 32.0 - 36.0 04/08/2013 Normal [facility] HEMATOLOGY MCV 79.9 80.0 - 94.0 04/08/2013 LOW [facility] HEMATOLOGY MCH 25.7 27.0 - 31.0 04/08/2013 LOW [facility] HEMATOLOGY WBC X 10x3 6.6 3.7 - 10.4 04/08/2013 Normal [facility] HEMATOLOGY RBC X 10x6 5.29 4.70 - 6.10 04/08/2013 Normal [facility] HEMATOLOGY Hgb 13.6 14.0 - 18.0 04/08/2013 LOW [facility] HEMATOLOGY Hct 42.3 42.0 - 54.0 04/08/2013 Normal [facility] HEMATOLOGY INR 1.40 0.85 - 1.17 04/08/2013 [place] <sup>13</sup>Interpretive Data: RECOMMENDED RANGES FOR PROTIME INR:
2.0-3.0 for most medical and surgical thromboembolic states.
2.5-3.5 for artificial heart valves and recurrent embolism.

INR SHOULD BE USED ONLY FOR PATIENTS ON STABLE ANTICOAGULANT THERAPY. [facility] HEMATOLOGY PROTIME 17.0 12.0 - 14.7 04/08/2013 [facility] HEMATOLOGY MCHC 32.9 32.0 - 36.0 04/07/2013 Normal [facility] HEMATOLOGY RDW 19.0 11.5 - 14.5 04/07/2013 [facility] HEMATOLOGY RBC X 10x6 5.02 4.70 - 6.10 04/07/2013 Normal [facility] HEMATOLOGY WBC X 10x3 6.6 3.7 - 10.4 04/07/2013 Normal [facility] HEMATOLOGY MCV 78.8 80.0 - 94.0 04/07/2013 LOW [facility] HEMATOLOGY MCH 25.9 27.0 - 31.0 04/07/2013 [facility] HEMATOLOGY Hct 39.6 42.0 - 54.0 04/07/2013 LOW [facility] HEMATOLOGY Hgb 13.0 14.0 - 18.0 04/07/2013 LOW [facility] HEMATOLOGY Platelet 242 133 - 450 04/07/2013 Normal [facility] HEMATOLOGY MPV 9.3 7.4 - 10.4 04/07/2013 Normal [facility] CHEMISTRY Magnesium Lvl 1.7 1.8 - 2.4 04/07/2013 LOW [facility] CHEMISTRY Phosphorus 4.0 2.5 - 4.5 04/07/2013 Normal [facility] CHEMISTRY Bili Indirect 1.2 0.0 - 1.0 04/07/2013 [facility] CHEMISTRY Globulin 2.7 2.0 - 4.0 04/07/2013 Normal [facility] CHEMISTRY A/G Ratio 1.3 0.7 - 1.6 04/07/2013 Normal [facility] CHEMISTRY ASPARTATE TRANSAMINASE 32 0 - 37 04/07/2013 Normal [facility] CHEMISTRY ALANINE AMINOTRANSFERASE 30 0 - 65 04/07/2013 Normal [facility] CHEMISTRY Albumin Lvl 3.4 3.5 - 5.0 04/07/2013 LOW [facility] CHEMISTRY Alk Phos 149 39 - 136 04/07/2013 [facility] CHEMISTRY Bili Direct 1.3 0.0 - 0.3 04/07/2013 [facility] CHEMISTRY Bili Total 2.5 0.2 - 1.3 04/07/2013 [facility] CHEMISTRY Total Protein 6.1 6.4 - 8.4 04/07/2013 [facility] CHEMISTRY Ca Ion WB 1.01 1.05 - 1.25 04/07/2013 [facility] CHEMISTRY Ca Norm WB 1.00 1.05 - 1.25 04/07/2013 LOW [facility] CHEMISTRY eGFR 59 04/07/2013 <sup>6</sup>Result Comment: The eGFR is calculated using the CKD-EPI formula. In most young, healthy individuals the eGFR will be >90 mL/min/1.73m2. The eGFR declines with age. An eGFR of 60-89 may be normal in some populations, particularly the elderly, for whom the CKD-EPI formula has not been extensively validated. Use of the eGFR is not recommended in the following populations:& lt;br/>
Individuals with unstable creatinine concentrations, including patients and those with serious co-morbid conditions.

Patients with extremes in muscle mass or diet.

The data above are obtained from the National Kidney Disease Education Program (NKDEP) which additionally recommends that when the eGFR is used in patients with extremes of body mass index for purposes of drug dosing, the eGFR should be multiplied by the estimated BMI. [facility] CHEMISTRY Potassium Lvl 4.2 3.5 - 5.1 04/07/2013 Normal [facility] CHEMISTRY Calcium Lvl 8.3 8.5 - 10.5 04/07/2013 LOW [facility] CHEMISTRY AGAP 15.2 10.0 - 20.0 04/07/2013 Normal [facility] CHEMISTRY CO2 28 24 - 32 04/07/2013 Normal [facility] CHEMISTRY Chloride Lvl 99 95 - 109 04/07/2013 Normal [facility] CHEMISTRY Sodium Lvl 138 135 - 145 04/07/2013 Normal [facility] CHEMISTRY BUN 25 7 - 22 04/07/2013 [facility] CHEMISTRY Creatinine Lvl 1.4 0.5 - 1.4 04/07/2013 Normal [facility] CHEMISTRY Glucose Lvl 133 70 - 99 04/07/2013 [place] <sup>9</sup>Interpretive Data: Adult reference range values reflect the clinical guidelines
of the [place] [employer]. [facility] HEMATOLOGY PROTIME 19.3 12.0 - 14.7 04/07/2013 HI [facility] HEMATOLOGY INR 1.65 0.85 - 1.17 04/07/2013 [place] <sup>14</sup>Interpretive Data: RECOMMENDED RANGES FOR PROTIME INR:
2.0-3.0 for most medical and surgical thromboembolic states.
2.5-3.5 for artificial heart valves and recurrent embolism.

INR SHOULD BE USED ONLY FOR PATIENTS ON STABLE ANTICOAGULANT THERAPY. [facility] CHEMISTRY Phosphorus 4.8 2.5 - 4.5 04/06/2013 HI [facility] CHEMISTRY eGFR 79 04/06/2013 <sup>7</sup>Result Comment: The eGFR is calculated using the CKD-EPI formula. In most young, healthy individuals the eGFR will be >90 mL/min/1.73m2. The eGFR declines with age. An eGFR of 60-89 may be normal in some populations, particularly the elderly, for whom the CKD-EPI formula has not been extensively validated. Use of the eGFR is not recommended in the following populations:& lt;br/>
Individuals with unstable creatinine concentrations, including patients and those with serious co-morbid conditions.

Patients with extremes in muscle mass or diet.

The data above are obtained from the National Kid[employer] Disease Education Program (NKDEP) which additionally recommends that when the eGFR is used in patients with extremes of body mass index for purposes of drug dosing, the eGFR should be multiplied by the estimated BMI. [facility] CHEMISTRY Sodium Lvl 140 135 - 145 04/06/2013 Normal [facility] CHEMISTRY Creatinine Lvl 1.1 0.5 - 1.4 04/06/2013 Normal [facility] CHEMISTRY BUN 19 7 - 22 04/06/2013 Normal [facility] CHEMISTRY Glucose Lvl 71 70 - 99 04/06/2013 Normal <sup>10</sup>Interpretive Data: Adult reference range values reflect the clinical guidelines
of the [place] [employer]. [facility] CHEMISTRY Calcium Lvl 8.6 8.5 - 10.5 04/06/2013 Normal [facility] CHEMISTRY Potassium Lvl 3.8 3.5 - 5.1 04/06/2013 Normal [facility] CHEMISTRY CO2 29 24 - 32 04/06/2013 Normal [facility] CHEMISTRY Chloride Lvl 100 95 - 109 04/06/2013 Normal [facility] CHEMISTRY AGAP 14.8 10.0 - 20.0 04/06/2013 Normal [facility] CHEMISTRY Ca Norm WB 1.00 1.05 - 1.25 04/06/2013 LOW [facility] CHEMISTRY Ca Ion WB 1.03 1.05 - 1.25 04/06/2013 LOW [facility] CHEMISTRY Magnesium Lvl 1.9 1.8 - 2.4 04/06/2013 Normal [facility] CHEMISTRY ALANINE AMINOTRANSFERASE 31 0 - 65 04/06/2013 Normal [facility] CHEMISTRY Bili Total 2.5 0.2 - 1.3 04/06/2013 HI [facility] CHEMISTRY Albumin Lvl 3.4 3.5 - 5.0 04/06/2013 LOW [facility] CHEMISTRY Bili Direct 1.3 0.0 - 0.3 04/06/2013 [facility] CHEMISTRY Alk Phos 148 39 - 136 04/06/2013 [facility] CHEMISTRY Total Protein 6.0 6.4 - 8.4 04/06/2013 LOW [facility] CHEMISTRY ASPARTATE TRANSAMINASE 38 0 - 37 04/06/2013 [facility] CHEMISTRY A/G Ratio 1.3 0.7 - 1.6 04/06/2013 Normal [facility] CHEMISTRY Globulin 2.6 2.0 - 4.0 04/06/2013 Normal [facility] CHEMISTRY Bili Indirect 1.2 0.0 - 1.0 04/06/2013 [facility] HEMATOLOGY INR 1.77 0.85 - 1.17 04/06/2013 [place] <sup>15</sup>Interpretive Data: RECOMMENDED RANGES FOR PROTIME INR:
2.0-3.0 for most medical and surgical thromboembolic states.
2.5-3.5 for artificial heart valves and recurrent embolism.

INR SHOULD BE USED ONLY FOR PATIENTS ON STABLE ANTICOAGULANT THERAPY. [facility] HEMATOLOGY PROTIME 20.3 12.0 - 14.7 04/06/2013 [facility] HEMATOLOGY WBC X 10x3 7.7 3.7 - 10.4 04/06/2013 Normal [facility] HEMATOLOGY MPV 9.3 7.4 - 10.4 04/06/2013 Normal [facility] HEMATOLOGY Platelet 254 133 - 450 04/06/2013 Normal [facility] HEMATOLOGY MCHC 31.7 32.0 - 36.0 04/06/2013 LOW [facility] HEMATOLOGY MCH 25.4 27.0 - 31.0 04/06/2013 LOW [facility] HEMATOLOGY RDW 19.2 11.5 - 14.5 04/06/2013 HI [facility] HEMATOLOGY MCV 80.1 80.0 - 94.0 04/06/2013 Normal [facility] HEMATOLOGY RBC X 10x6 5.40 4.70 - 6.10 04/06/2013 Normal [facility] HEMATOLOGY Hgb 13.7 14.0 - 18.0 04/06/2013 LOW [facility] HEMATOLOGY Hct 43.3 42.0 - 54.0 04/06/2013 Normal [facility] HEMATOLOGY Anisocyte 1+ *ABN* (04/05/2013 05:30:58) None Seen 04/05/2013 ABN [facility] HEMATOLOGY Target Cell Slight *ABN* (04/05/2013 05:30:58) None Seen 04/05/2013 ABN [facility] HEMATOLOGY Plt Morph Normal (04/05/2013 05:30:58) 04/05/2013 Normal [facility] HEMATOLOGY Monocytes # 0.9 0.0 - 0.8 04/05/2013 [facility] HEMATOLOGY Lymphocytes # 1.0 1.0 - 5.5 04/05/2013 Normal [facility] HEMATOLOGY Eosinophils # 0.1 0.0 - 0.5 04/05/2013 Normal [facility] HEMATOLOGY Basophils # 0.0 0.0 - 0.2 04/05/2013 Normal [facility] HEMATOLOGY Basophils 0.3 0.0 - 1.0 04/05/2013 Normal [facility] HEMATOLOGY Segs-Bands # 6.2 1.5 - 8.1 04/05/2013 Normal [facility] HEMATOLOGY Eosinophils 1.3 0.0 - 4.0 04/05/2013 Normal [facility] HEMATOLOGY Monocytes 10.6 2.0 - 12.0 04/05/2013 Normal [facility] HEMATOLOGY Lymphocytes 12.7 20.0 - 40.0 04/05/2013 LOW [facility] HEMATOLOGY Segs 75.1 45.0 - 75.0 04/05/2013 [facility] URINALYSIS UA Nitrite Negative (04/04/2013 12:50:32) Negative 04/04/2013 Normal [facility] URINALYSIS UA Blood Negative (04/04/2013 12:50:32) Negative 04/04/2013 Normal [facility] URINALYSIS UA Urobilinogen 2.0 0.1 - 1.0 04/04/2013 HI [facility] URINALYSIS UA Leuk Est Negative (04/04/2013 12:50:32) Negative 04/04/2013 Normal [facility] URINALYSIS Micro? Performed *NA* (04/04/2013 12:50:32) 04/04/2013 [facility] URINALYSIS UA Mucus Few /LPF None Seen 04/04/2013 [facility] [facility]IN[facility]YSIS UA RBC 8 0 - 2 04/04/2013 HI [facility] URINALYSIS UA WBC <1 0 - 5 04/04/2013 Normal [facility] URINALYSIS UA Sq Epi Occasional /LPF Few 04/04/2013 [facility] URINALYSIS UA pH 7.5 5.0 - 8.0 04/04/2013 Normal [facility] URINALYSIS UA Protein 10 mg/dL Negative 04/04/2013 ABN [facility] URINALYSIS UA Spec Grav 1.008 <=1.030 04/04/2013 Normal [facility] URINALYSIS UA Turbidity Clear (04/04/2013 12:50:32) Clear 04/04/2013 Normal [facility] URINALYSIS UA Color Yellow *NA* (04/04/2013 12:50:32) Yellow 04/04/2013 [facility] URINALYSIS UA Glucose Negative mg/dL Negative 04/04/2013 [facility] URINALYSIS UA Bili Negative *NA* (04/04/2013 12:50:32) Negative 04/04/2013 [facility] URINALYSIS UA Ketones Negative mg/dL Negative 04/04/2013 [facility] CHEMISTRY CK MB 1.4 0.5 - 3.6 04/04/2013 Normal [facility] CHEMISTRY CK-MB INDEX 0.4 0.0 - 2.5 04/04/2013 Normal [facility] CHEMISTRY TSH 2.300 0.360 - 3.740 04/04/2013 Normal [facility] CHEMISTRY LDL (Calculated) 60 <=99 04/04/2013 Normal [facility] CHEMISTRY CHD Risk 6.69 4.00 - 7.30 04/04/2013 Normal [facility] CHEMISTRY Trig 70 <=149 04/04/2013 Normal [facility] CHEMISTRY Chol 87 <=199 04/04/2013 Normal [facility] CHEMISTRY HDL 13 >=61 04/04/2013 LOW [facility] CHEMISTRY Troponin-I 0.05 0.00 - 0.40 04/04/2013 Normal [facility] CHEMISTRY Total CK 396 12 - 191 04/04/2013 HI [facility] HEMATOLOGY Segs 74.8 45.0 - 75.0 04/04/2013 Normal [facility] HEMATOLOGY Lymphocytes 13.8 20.0 - 40.0 04/04/2013 LOW [facility] HEMATOLOGY Eosinophils 0.7 0.0 - 4.0 04/04/2013 Normal [facility] HEMATOLOGY Basophils 0.4 0.0 - 1.0 04/04/2013 Normal [facility] HEMATOLOGY Monocytes 10.3 2.0 - 12.0 04/04/2013 Normal [facility] HEMATOLOGY Lymphocytes # 1.3 1.0 - 5.5 04/04/2013 Normal [facility] HEMATOLOGY Monocytes # 1.0 0.0 - 0.8 04/04/2013 HI [facility] HEMATOLOGY Basophils # 0.0 0.0 - 0.2 04/04/2013 Normal [facility] HEMATOLOGY Segs-Bands # 7.0 1.5 - 8.1 04/04/2013 Normal [facility] HEMATOLOGY Eosinophils # 0.1 0.0 - 0.5 04/04/2013 Normal [facility] BACTERIAL - SEROLOGY MRSA by PCR Negative 1 (04/03/2013 18:50:51) 04/04/2013 Normal <sup>1</sup>Interpretive Data: Interpretive Data: The Sae LightCycler MRSA assay is a qualitative test for the direct detection of nasal colonization with methicillin-resistant Staphylococcus aureus (MRSA) to aid in the prevention and control of MRSA infections in healthcare settings. A positive result does not indicate an infection or require treatment. A negative result does not exclude colonization or infection.

The polymerase chain reaction (PCR) assay detects a proprietary sequence indicative of the integration of the SCCmec cassette into the Staphylococcus aureus chromosome, indicating the presence of MRSA DNA. The assay utilizes FDA cleared IVD reagents. Performance characteristics have been verified by the Molecular Diagnostic Laboratory within the [facility]. The Molecular Diagnostic Laboratory is authorized under the Clinical Laboratory Improvement Amendment of 1988 (CLIA-88) to perform high complexity testing. [facility] CHEMISTRY CK-MB INDEX 0.3 0.0 - 2.5 04/04/2013 Normal [facility] CHEMISTRY CK MB 1.6 0.5 - 3.6 04/04/2013 Normal [facility] CHEMISTRY Hgb A1C 8.6 <=5.6 04/04/2013 HI [facility] CHEMISTRY Troponin-I 0.04 0.00 - 0.40 04/04/2013 Normal [facility] CHEMISTRY Total CK 491 12 - 191 04/04/2013 [facility] HEMATOLOGY Hex Phos N Negative (04/03/2013 18:50:00) Negative 04/04/2013 Normal [facility] dRVV 0.99 <=1.20 04/04/2013 Normal [facility] HEMATOLOGY Lup Interp Negative for lupus anticoagulant by DRVV screen and hexagonal phospholipid neutralization test. If there is a strong clinical suspicion of lupus anticoagulant, additional testing, to include repeat studies at a clinically appropriate interval and anticardiolipin antibody assays, is recommended. Interpretation performed at [facility]. 04/04/2013 [facility] F5 Leiden Intrp FACTOR V LEIDEN: Negative INTERPRETATION: Molecular analysis for the Factor V Leiden, [id number] mutation was negative. Other causes of activated protein C resistance and hereditary forms of venous thrombosis are not ruled out. Final diagnosis requires correlation with clinical history and other pertinent laboratory findings. Where appropriate, medical consultation and/or genetic counseling should be offered to inform and explain the risk implications and genetic implications of these test results. ASSAY LIMITATIONS: The assay uses the FDA-cleared Sae Factor V Leiden IVD(Poymerase chain reaction/FRET detection), Sae [employer] Instrument as well as Sae LightCycler 1.2 Instrument. A 222-bp fragment of Factor V gene (FV) containing the Factor V Leiden sequence is amplified in the assay. The assay is designed to detect the G [id number] mutation only. Other causes of activated protein C resistance and hereditary forms of venous thrombosis are to ruled out. However,the melting curve analysis may implicate the presence of possible rare mutations at position. 1689, 1692 and 1696 (further testing will be recommended in the report). A minimum detection level is 202 copies of Factor V Leiden per reaction. The level of agreement between the Factor V Leiden Kit and sequence analysis was 99.4%. The test result must be interpreted along with the patient's clinical history and other pertinent laboratory data.This assay has been validated by [facility] Molecular diagnostic Laboratory. 04/04/2013 [facility] F5 Leiden PCR Negative (04/03/2013 18:50:00) 04/04/2013 Normal [facility] HEMATOLOGY F2 Mut Interp FACTOR II PT: Negative INTERPRETATION: Molecular analysis for the Factor II (Prothrombin) [id number] mutation was negative. Other causes of elevated prothrombin levels and hereditary forms of venous thrombosis are not ruled out. Final diagnosis requires correlation with clinical history and other pertinent laboratory findings. Where appropriate, medical consultation and genetic counseling should be offered to inform and explain the risk implications and genetic implications of these test results. ASSAY LIMITATIONS: The assay uses the FDA- cleared Sae Factor II (Prothrombin) [id number] IVD (Polymerase chain reaction/FRET detection), [employer] Instrument as well as Sae LightCycler 1.2 Instrument. A 165-bp fragment of Factor II gene(FII) containing the Factor II [id number] sequence is amplified in the assay. The assay is designed to detect the [id number] mutation only. Other causes of elevated prothrombin levels and hereditary forms of venous thrombosis are not ruled out. However, the melting curve analysis may implicate the presence of a possible rare mutation at position 95379 (Further testing will be recommended in the report). A minimum detection level is 198 copies of Factor II per reaction. The level of agreement between the Factor II(Prothrombin) [id number] Kit and sequence analysis was 98.9%. The test result must be interpreted along with the patient's clinical history and other pertinent laboratory data. This assay has been validated by [facility]. 04/04/2013 [facility] F2 Mutation PCR Negative (04/03/2013 18:50:00) 04/04/2013 Normal [facility] Protein C Func 59 72 - 147 04/04/2013 LOW [facility] HEMATOLOGY Protein S Func 94 54 - 137 04/04/2013 Normal [facility] HEMATOLOGY AT III Func 65 77 - 140 04/04/2013 LOW [facility] IMMUNOLOGY Beta2-Glycoprotein IgG <9 < OR=20 04/04/2013 <sup>21</sup>Result Comment: Test Performed at:
[facility]
[id number] [facility]
[place] [address] Dallin Canales MD, PhD [facility] IMMUNOLOGY Beta2-Glycoprotein IgM <9 < OR=20 04/04/2013 <sup>20</sup>Result Comment: Test Performed at:
[facility]
[address] [place] [address]
[place] [address] Dallin Canales MD, PhD [facility] Beta2-Glycoprotein IgA <9 < OR=20 04/04/2013 <sup>22</sup>Result Comment: Clinical Significance:
The Antiphospholipid Antibody Syndrome (APS) is a
clinical pathologic correlation that includes a
clinical event (e.g. thrombosis, loss,
thrombocytopenia) and persistent positive
Antiphospholipid Antibodies (IgM or IgG ABI >40
MPL/GPL, IgM or IgG anti-B2GP1 antibodies, or a
Lupus Anticoagulant). The IgA isotype has been
implicated in smaller studies, but have not yet
been incorporated into the APS criteria.
International consensus guidelines suggest waiting
at least 12 weeks before retesting to confirm
antibody persistence. Reference J Thromb Haemost
2006: 4; 295.
Test Performed at:
[facility]
[address] [place] [address]
[place] [address] Dallin Canales MD, PhD [facility] Cardiolipin IgG 16 04/04/2013 <sup>18</sup>Interpretive Data: Reference Ranges for IgG:
0-14 GPL Negative
15-20 GPL Inconclusive
21-80 GPL Low-Med Positive
> 80 GPL Strong Positive [facility] Cardiolipin IgM 4.0 04/04/2013 <sup>19</sup>Interpretive Data: Reference Ranges for IgM:
0-12.4 MPL Negative
12.5-20 MPL Inconclusive
21-80 MPL Low-Med Positive
> 80 MPL Strong Positive [facility] IMMUNOLOGY Cardiolipin IgA 1 04/04/2013 <sup>17</sup>Interpretive Data: Reference Ranges for IgA:
0-11 APL Negative
12-20 APL Inconclusive
21-80 APL Low-Med Positive
> 80 APL Strong Positive [facility] IMMUNOLOGY Homocyst Tot 11.0 3.7 - 13.9 04/04/2013 Normal [facility] IMMUNOLOGY SUSAN Negative (04/03/2013 18:50:00) Negative 04/04/2013 Normal [facility] CHEMISTRY Total CK 447 12 - 191 04/03/2013 HI [facility] CHEMISTRY Troponin-I 0.04 0.00 - 0.40 04/03/2013 Normal [facility] CHEMISTRY CHD Risk 6.40 4.00 - 7.30 04/03/2013 Normal [facility] CHEMISTRY Trig 76 <=149 04/03/2013 Normal [facility] CHEMISTRY Chol 96 <=199 04/03/2013 Normal [facility] CHEMISTRY HDL 15 >=61 04/03/2013 LOW [facility] CHEMISTRY LDL (Calculated) 66 <=99 04/03/2013 Normal [facility] CHEMISTRY CK MB 1.6 0.5 - 3.6 04/03/2013 Normal [facility] CHEMISTRY CK-MB INDEX 0.4 0.0 - 2.5 04/03/2013 Normal [facility] U Cannab Scr Negative *NA* (04/03/2013 07:25:00) Negative 04/03/2013 [facility] U Opiate Scr Negative *NA* (04/03/2013 07:25:00) Negative 04/03/2013 [facility] U Brigette Scr Negative *NA* (04/03/2013 07:25:00) Negative 04/03/2013 [facility] U Amph Scr Negative *NA* (04/03/2013 07:25:00) Negative 04/03/2013 [facility] UDS Note See Note 12 (04/03/2013 07:25:00) 04/03/2013 Normal <sup>12</sup>Interpretive Data: Drugs reported as positive have not been confirmed by a second
method and should be used for medical purposes only. To order
confirmation, contact laboratory.

note: Below are cut-off concentrations for all urine drugs of
abuse performed in the laboratory. Some drugs listed in the table
may not be included in this panel.

Description Cut-off concentration

Amphetamine 1000 ng/mL
Barbiturates 200 ng/mL
Benzodiazepines 300 ng/mL
Cocaine metabolites 300 ng/mL
Opiates 300 ng/mL
Phencyclidine 25 ng/mL
Propoxyphene 300 ng/mL
Marijuana metabolites 50 ng/mL
Methadone 300 ng/ mL
Urine alcohol 20 mg/dL [facility] U Phencyc Scr Negative *NA* (04/03/2013 07:25:00) Negative 04/03/2013 [facility] U Benzodia Scr Positive *ABN* (04/03/2013 07:25:00) Negative 04/03/2013 ABN [facility] U Cocaine Scr Negative *NA* (04/03/2013 07:25:00) Negative 04/03/2013 [facility] URINALYSIS UA Glucose Negative (04/03/2013 07:25:00) Negative 04/03/2013 Normal [facility] URINALYSIS UA Blood Negative (04/03/2013 07:25:00) Negative 04/03/2013 Normal [facility] URINALYSIS UA Bili Moderate *ABN* (04/03/2013 07:25:00) Negative 04/03/2013 ABN [facility] URINALYSIS UA Ketones Negative *NA* (04/03/2013 07:25:00) Negative 04/03/2013 [facility] URINALYSIS UA Turbidity Clear (04/03/2013 07:25:00) Clear 04/03/2013 Normal [facility] URINALYSIS UA Protein 100 mg/dL Negative 04/03/2013 ABN [facility] URINALYSIS UA Spec Grav >=1.030 *ABN* (04/03/2013 07:25:00) <=1.030 04/03/2013 ABN [facility] URINALYSIS UA pH 6.0 5.0 - 8.0 04/03/2013 Normal [facility] URINALYSIS UA Color Yellow *NA* (04/03/2013 07:25:00) Yellow 04/03/2013 [facility] URINALYSIS UA Leuk Est Negative (04/03/2013 07:25:00) Negative 04/03/2013 Normal [facility] URINALYSIS UA Nitrite Negative (04/03/2013 07:25:00) Negative 04/03/2013 Normal [facility] URINALYSIS UA Urobilinogen 1.0 0.1 - 1.0 04/03/2013 Normal [facility] URINALYSIS UA Bacteria Occasional /HPF None Seen 04/03/2013 Normal [facility] URINALYSIS UA Mucus Moderate /LPF None Seen 04/03/2013 ABN [facility] URINALYSIS UA RBC 0-2 /HPF 0 - 2 04/03/2013 Normal [facility] URINALYSIS UA WBC 0-2 /HPF None Seen 04/03/2013 Normal [facility] URINALYSIS Micro? Performed (04/03/2013 07:25:00) 04/03/2013 Normal [facility] URINALYSIS UA Sq Epi Occasional /LPF Few 04/03/2013 Normal [facility] CHEMISTRY B/C Ratio 16 6 - 25 04/03/2013 Normal [facility] CHEMISTRY BNP 2033 <=100 04/03/2013 HI <sup>11</sup>Interpretive Data: Elevated results are in line with increasing severity of
congestive heart failure. Minor elevations between 100 and 300
may be seen with Myocardial Ischemia, Sodium retaining drugs,
and compensated/treated heart failure. [facility] HEMATOLOGY aPTT 32.6 22.9 - 35.8 04/03/2013 Normal <sup>16</sup>Interpretive Data: Heparin Therapeutic Range: 57 - 92 Seconds [facility] HEMATOLOGY Basophils # 0.1 0.0 - 0.2 04/03/2013 Normal [facility] HEMATOLOGY Eosinophils # 0.1 0.0 - 0.5 04/03/2013 Normal [facility] HEMATOLOGY Segs-Bands # 7.4 1.5 - 8.1 04/03/2013 Normal [facility] HEMATOLOGY Monocytes # 0.8 0.0 - 0.8 04/03/2013 Normal [facility] HEMATOLOGY Lymphocytes # 0.9 1.0 - 5.5 04/03/2013 LOW [facility] HEMATOLOGY Lymphocytes 9.7 20.0 - 40.0 04/03/2013 LOW [facility] HEMATOLOGY Monocytes 9.0 2.0 - 12.0 04/03/2013 Normal [facility] HEMATOLOGY Basophils 0.8 0.0 - 1.0 04/03/2013 Normal [facility] HEMATOLOGY Eosinophils 0.6 0.0 - 4.0 04/03/2013 Normal [facility] HEMATOLOGY Segs 79.9 45.0 - 75.0 04/03/2013 HI [facility] URINALYSIS UA Mucus Few /LPF None Seen 03/10/2013 Normal [facility] URINALYSIS UA Hyal Cast 0-2 (03/10/2013 03:15:22) 0 - 2 03/10/2013 Normal [facility] URINALYSIS UA Amorph Althea Occasional /HPF None Seen 03/10/2013 ABN [facility] URINALYSIS UA Sq Epi Occasional /LPF Few 03/10/2013 Normal [facility] URINALYSIS Micro? Performed (03/10/2013 03:15:22) 03/10/2013 Normal [facility] URINALYSIS UA Leuk Est Negative (03/10/2013 03:15:22) Negative 03/10/2013 Normal [facility] URINALYSIS UA WBC 0-2 /HPF None Seen 03/10/2013 Normal [facility] URINALYSIS UA RBC None Seen (03/10/2013 03:15:22) 0 - 2 03/10/2013 Normal [facility] URINALYSIS UA Bacteria Occasional /HPF None Seen 03/10/2013 Normal [facility] URINALYSIS UA Bili Small 1 *ABN* (03/10/2013 03:15:22) Negative 03/10/2013 ABN <sup>1</sup>Result Comment: Interpret positive bilirubin results with caution. Confirmatory testing
not possible due to the unavailability of reagent. Correlation with
serum chemistry results recommended. [facility] URINALYSIS UA Nitrite Negative (03/10/2013 03:15:22) Negative 03/10/2013 Normal [facility] URINALYSIS UA Urobilinogen 4.0 0.1 - 1.0 03/10/2013 HI [facility] URINALYSIS UA Blood Negative (03/10/2013 03:15:22) Negative 03/10/2013 Normal [facility] URINALYSIS UA Spec Grav >=1.030 *ABN* (03/10/2013 03:15:22) <=1.030 03/10/2013 ABN [facility] URINALYSIS UA Turbidity Clear (03/10/2013 03:15:22) Clear 03/10/2013 Normal [facility] URINALYSIS UA Color Yellow *NA* (03/10/2013 03:15:22) Yellow 03/10/2013 [facility] URINALYSIS UA Protein >=300 mg/dL Negative 03/10/2013 ABN [facility] URINALYSIS UA pH 6.0 5.0 - 8.0 03/10/2013 Normal [facility] URINALYSIS UA Ketones Negative *NA* (03/10/2013 03:15:22) Negative 03/10/2013 [facility] URINALYSIS UA Glucose Negative (03/10/2013 03:15:22) Negative 03/10/2013 Normal [facility] CHEMISTRY eGFR 71 03/10/2013 <sup>2</sup>Result Comment: The eGFR is calculated using the CKD-EPI formula. In most young, healthy individuals the eGFR will be >90 mL/min/1.73m2. The eGFR declines with age. An eGFR of 60-89 may be normal in some populations, particularly the elderly, for whom the CKD-EPI formula has not been extensively validated. Use of the eGFR is not recommended in the following populations:& lt;br/>
Individuals with unstable creatinine concentrations, including patients and those with serious co-morbid conditions.

Patients with extremes in muscle mass or diet.

The data above are obtained from the National Kidney Disease Education Program (NKDEP) which additionally recommends that when the eGFR is used in patients with extremes of body mass index for purposes of drug dosing, the eGFR should be multiplied by the estimated BMI. [facility] CHEMISTRY CO2 25 24 - 32 03/10/2013 Normal [facility] CHEMISTRY Chloride Lvl 105 95 - 109 03/10/2013 Normal [facility] CHEMISTRY Potassium Lvl 4.1 3.5 - 5.1 03/10/2013 Normal [facility] CHEMISTRY Sodium Lvl 140 135 - 145 03/10/2013 Normal [facility] CHEMISTRY Calcium Lvl 8.6 8.5 - 10.5 03/10/2013 Normal [facility] CHEMISTRY Glucose Lvl 150 70 - 99 03/10/2013 [facility] <sup>3</sup>Interpretive Data: Adult reference range values reflect the clinical guidelines
of the [place] [employer]. [facility] CHEMISTRY Creatinine Lvl 1.2 0.5 - 1.4 03/10/2013 Normal [facility] CHEMISTRY BUN 20 7 - 22 03/10/2013 Normal [facility] CHEMISTRY AGAP 14.1 10.0 - 20.0 03/10/2013 Normal [facility] CHEMISTRY Alk Phos 140 39 - 136 03/10/2013 HI [facility] CHEMISTRY ALANINE AMINOTRANSFERASE 22 0 - 65 03/10/2013 Normal [facility] CHEMISTRY Albumin Lvl 3.6 3.5 - 5.0 03/10/2013 Normal [facility] CHEMISTRY Total Protein 7.1 6.4 - 8.4 03/10/2013 Normal [facility] CHEMISTRY Bili Direct 0.7 0.0 - 0.3 03/10/2013 HI [facility] CHEMISTRY Bili Total 1.6 0.2 - 1.3 03/10/2013 HI [facility] CHEMISTRY ASPARTATE TRANSAMINASE 16 0 - 37 03/10/2013 Normal [facility] CHEMISTRY Bili Indirect 0.9 0.0 - 1.0 03/10/2013 Normal [facility] CHEMISTRY A/G Ratio 1.0 0.7 - 1.6 03/10/2013 Normal [facility] CHEMISTRY Globulin 3.5 2.0 - 4.0 03/10/2013 Normal [facility] CHEMISTRY Lipase Lvl 108 73 - 393 03/10/2013 Normal [facility] HEMATOLOGY Platelet 225 133 - 450 03/10/2013 Normal [facility] HEMATOLOGY MCV 84.3 80.0 - 94.0 03/10/2013 Normal [facility] HEMATOLOGY MPV 9.5 7.4 - 10.4 03/10/2013 Normal [facility] HEMATOLOGY RDW 17.4 11.5 - 14.5 03/10/2013 HI [facility] HEMATOLOGY MCH 26.8 27.0 - 31.0 03/10/2013 LOW [facility] HEMATOLOGY MCHC 31.8 32.0 - 36.0 03/10/2013 LOW [facility] HEMATOLOGY RBC X 10x6 5.47 4.70 - 6.10 03/10/2013 Normal [facility] HEMATOLOGY Hgb 14.7 14.0 - 18.0 03/10/2013 Normal [facility] HEMATOLOGY WBC X 10x3 7.4 3.7 - 10.4 03/10/2013 Normal [facility] HEMATOLOGY Hct 46.1 42.0 - 54.0 03/10/2013 Normal [facility] HEMATOLOGY Lymphocytes 15.7 20.0 - 40.0 03/10/2013 LOW [facility] HEMATOLOGY Monocytes 9.1 2.0 - 12.0 03/10/2013 Normal [facility] HEMATOLOGY Eosinophils 1.3 0.0 - 4.0 03/10/2013 Normal [facility] HEMATOLOGY Basophils # 0.0 0.0 - 0.2 03/10/2013 Normal [facility] HEMATOLOGY Basophils 0.5 0.0 - 1.0 03/10/2013 Normal [facility] HEMATOLOGY Segs-Bands # 5.4 1.5 - 8.1 03/10/2013 Normal [facility] HEMATOLOGY Segs 73.4 45.0 - 75.0 03/10/2013 Normal [facility] HEMATOLOGY Eosinophils # 0.1 0.0 - 0.5 03/10/2013 Normal [facility] HEMATOLOGY Lymphocytes # 1.2 1.0 - 5.5 03/10/2013 Normal [facility] HEMATOLOGY Monocytes # 0.7 0.0 - 0.8 03/10/2013 Normal [facility] HEMATOLOGY Elliptocyte Slight *ABN* (03/10/2013 02:34:00) None Seen 03/10/2013 ABN [facility] HEMATOLOGY Polychrom Slight (03/10/2013 02:34:00) None Seen 03/10/2013 Normal [facility] HEMATOLOGY Large Plt Slight *ABN* (03/10/2013 02:34:00) None Seen 03/10/2013 ABN [facility] HEMATOLOGY Sargeant Cell Slight *ABN* (03/10/2013 02:34:00) None Seen 03/10/2013 ABN [facility] BEDSIDE GLUCOSE TESTING Gluc POC Comment 1 Notified NEVA 02/27/2013 [facility] BEDSIDE GLUCOSE TESTING Glucose POC 233 70 - 99 02/27/2013 HI <sup>1</sup>Interpretive Data: Upper Reportable Limit: 200 mg/dL. [facility] BEDSIDE GLUCOSE TESTING Gluc POC Comment 1 Notified NEVA 02/27/2013 [facility] BEDSIDE GLUCOSE TESTING Glucose POC 145 70 - 99 02/27/2013 HI <sup>2</sup>Interpretive Data: Upper Reportable Limit: 200 mg/dL. [facility] BEDSIDE GLUCOSE TESTING Glucose POC 152 70 - 99 02/27/2013 HI <sup>3</sup>Interpretive Data: Upper Reportable Limit: 200 mg/dL. [facility] BEDSIDE GLUCOSE TESTING Gluc POC Comment 1 Notified NEVA 02/26/2013 [facility] CHEMISTRY Acetaminoph Lvl 10 - 20 02/25/2013 Normal [facility] CHEMISTRY TSH 1.410 0.360 - 3.740 02/25/2013 Normal [facility] CHEMISTRY Ethanol Lvl <3 02/25/2013 <sup>9</sup>Interpretive Data: Negative Range: <3 mg/dL
Toxic Range: >250 mg/dL [facility] CHEMISTRY Etoh (%) <0.003 02/25/2013 <sup>8</sup>Interpretive Data: Negative Range: <0.003%
Toxic Range: >0.25% [facility] Magnesium Lvl 1.7 1.8 - 2.4 02/25/2013 LOW [facility] CHEMISTRY Phosphorus 4.2 2.5 - 4.5 02/25/2013 Normal [facility] CHEMISTRY eGFR 71 02/25/2013 <sup>5</sup>Result Comment: The eGFR is calculated using the CKD-EPI formula. In most young, healthy individuals the eGFR will be >90 mL/min/1.73m2. The eGFR declines with age. An eGFR of 60-89 may be normal in some populations, particularly the elderly, for whom the CKD-EPI formula has not been extensively validated. Use of the eGFR is not recommended in the following populations:& lt;br/>
Individuals with unstable creatinine concentrations, including patients and those with serious co-morbid conditions.

Patients with extremes in muscle mass or diet.

The data above are obtained from the National Kidney Disease Education Program (NKDEP) which additionally recommends that when the eGFR is used in patients with extremes of body mass index for purposes of drug dosing, the eGFR should be multiplied by the estimated BMI. [facility] CHEMISTRY Calcium Lvl 8.7 8.5 - 10.5 02/25/2013 Normal [facility] CHEMISTRY AGAP 14.0 10.0 - 20.0 02/25/2013 Normal [facility] CHEMISTRY CO2 25 24 - 32 02/25/2013 Normal [facility] CHEMISTRY Chloride Lvl 102 95 - 109 02/25/2013 Normal [facility] CHEMISTRY Potassium Lvl 4.0 3.5 - 5.1 02/25/2013 Normal [facility] CHEMISTRY Glucose Lvl 155 70 - 99 02/25/2013 HI <sup>6</sup>Interpretive Data: Adult reference range values reflect the clinical guidelines
of the [place] [employer]. [facility] CHEMISTRY Sodium Lvl 137 135 - 145 02/25/2013 Normal [facility] CHEMISTRY Creatinine Lvl 1.2 0.5 - 1.4 02/25/2013 Normal [facility] CHEMISTRY BUN 22 7 - 22 02/25/2013 Normal [facility] HEMATOLOGY Basophils # 0.0 0.0 - 0.2 02/25/2013 Normal [facility] HEMATOLOGY Basophils 0.3 0.0 - 1.0 02/25/2013 Normal [facility] HEMATOLOGY Segs-Bands # 6.0 1.5 - 8.1 02/25/2013 Normal [facility] HEMATOLOGY Lymphocytes # 1.1 1.0 - 5.5 02/25/2013 Normal [facility] HEMATOLOGY Monocytes # 0.6 0.0 - 0.8 02/25/2013 Normal [facility] HEMATOLOGY Eosinophils # 0.1 0.0 - 0.5 02/25/2013 Normal [facility] HEMATOLOGY Segs 77.6 45.0 - 75.0 02/25/2013 HI [facility] HEMATOLOGY Lymphocytes 13.6 20.0 - 40.0 02/25/2013 LOW [facility] HEMATOLOGY Monocytes 7.9 2.0 - 12.0 02/25/2013 Normal [facility] HEMATOLOGY Eosinophils 0.6 0.0 - 4.0 02/25/2013 Normal [facility] HEMATOLOGY MCV 83.5 80.0 - 94.0 02/25/2013 Normal [facility] HEMATOLOGY MCH 27.4 27.0 - 31.0 02/25/2013 Normal [facility] HEMATOLOGY MCHC 32.8 32.0 - 36.0 02/25/2013 Normal [facility] HEMATOLOGY RDW 16.0 11.5 - 14.5 02/25/2013 HI [facility] HEMATOLOGY MPV 10.0 7.4 - 10.4 02/25/2013 Normal [facility] HEMATOLOGY Platelet 237 133 - 450 02/25/2013 Normal [facility] Hgb 15.6 14.0 - 18.0 02/25/2013 Normal [facility] HEMATOLOGY Hct 47.5 42.0 - 54.0 02/25/2013 Normal [facility] HEMATOLOGY WBC X 10x3 7.8 3.7 - 10.4 02/25/2013 Normal [facility] HEMATOLOGY RBC X 10x6 5.69 4.70 - 6.10 02/25/2013 Normal [facility] CHEMISTRY U Cocaine Scr Negative *NA* (02/25/2013 05:00:00) Negative 02/25/2013 [facility] CHEMISTRY U Brigette Scr Negative *NA* (02/25/2013 05:00:00) Negative 02/25/2013 [facility] CHEMISTRY U Benzodia Scr Positive *ABN* (02/25/2013 05:00:00) Negative 02/25/2013 ABN [facility] CHEMISTRY U Amph Scr Negative *NA* (02/25/2013 05:00:00) Negative 02/25/2013 [facility] CHEMISTRY U Cannab Scr Negative *NA* (02/25/2013 05:00:00) Negative 02/25/2013 [facility] CHEMISTRY UDS Note See Note 7 (02/25/2013 05:00:00) 02/25/2013 Normal <sup>7</sup>Interpretive Data: Drugs reported as positive have not been confirmed by a second
method and should be used for medical purposes only. To order
confirmation, contact laboratory.

note: Below are cut-off concentrations for all urine drugs of
abuse performed in the laboratory. Some drugs listed in the table
may not be included in this panel.

Description Cut-off concentration

Amphetamine 1000 ng/mL
Barbiturates 200 ng/mL
Benzodiazepines 300 ng/mL
Cocaine metabolites 300 ng/mL
Opiates 300 ng/mL
Phencyclidine 25 ng/mL
Propoxyphene 300 ng/mL
Marijuana metabolites 50 ng/mL
Methadone 300 ng/m L
Urine alcohol 20 mg/dL [facility] CHEMISTRY U Phencyc Scr Negative *NA* (02/25/2013 05:00:00) Negative 02/25/2013 [facility] CHEMISTRY U Opiate Scr Negative *NA* (02/25/2013 05:00:00) Negative 02/25/2013 [facility] URINALYSIS UA Leuk Est Negative (02/25/2013 05:00:00) Negative 02/25/2013 Normal [facility] URINALYSIS UA Urobilinogen 1.0 0.1 - 1.0 02/25/2013 Normal [facility] URINALYSIS UA Nitrite Positive *ABN* (02/25/2013 05:00:00) Negative 02/25/2013 ABN [facility] URINALYSIS UA Glucose Negative (02/25/2013 05:00:00) Negative 02/25/2013 Normal [facility] URINALYSIS UA Protein >=300 mg/dL Negative 02/25/2013 ABN [facility] URINALYSIS UA Ketones Trace *ABN* (02/25/2013 05:00:00) Negative 02/25/2013 ABN [facility] URINALYSIS UA Blood Trace *ABN* (02/25/2013 05:00:00) Negative 02/25/2013 ABN [facility] URINALYSIS UA Bili Large 4 *ABN* (02/25/2013 05:00:00) Negative 02/25/2013 ABN <sup>4</sup>Result Comment: Interpret positive bilirubin results with caution. Confirmatory testing
not possible due to the unavailability of reagent. Correlation with
serum chemistry results recommended. [facility] URINALYSIS UA RBC 3-5 /HPF 0 - 2 02/25/2013 ABN [facility] URINALYSIS UA WBC 6-10 /HPF None Seen 02/25/2013 ABN [facility] URINALYSIS UA Hyal Cast 3-5 (02/25/2013 05:00:00) 0 - 2 02/25/2013 Normal [facility] URINALYSIS UA Amorph Althea Many /HPF None Seen 02/25/2013 ABN [facility] URINALYSIS UA Mucus Few /LPF None Seen 02/25/2013 Normal [facility] URINALYSIS UA Sq Epi Occasional /LPF Few 02/25/2013 Normal [facility] URINALYSIS Micro? Performed (02/25/2013 05:00:00) 02/25/2013 Normal [facility] URINALYSIS UA Spec Grav >=1.030 *ABN* (02/25/2013 05:00:00) <=1.030 02/25/2013 ABN [facility] URINALYSIS UA pH 6.0 5.0 - 8.0 02/25/2013 Normal [facility] URINALYSIS UA Color Yellow *NA* (02/25/2013 05:00:00) Yellow 02/25/2013 [facility] URINALYSIS UA Turbidity Cloudy *ABN* (02/25/2013 05:00:00) Clear 02/25/2013 ABN [facility] URINALYSIS UA Bacteria Moderate /HPF None Seen 02/25/2013 Normal [facility] CHEMISTRY CK-MB INDEX 1.2 0.0 - 2.5 02/24/2013 Normal [facility] CHEMISTRY CK MB 1.3 0.5 - 3.6 02/24/2013 Normal [facility] CHEMISTRY Magnesium Lvl 1.6 1.8 - 2.4 02/24/2013 LOW [facility] CHEMISTRY Phosphorus 3.6 2.5 - 4.5 02/24/2013 Normal [facility] CHEMISTRY eGFR 89 02/24/2013 <sup>1</sup>Result Comment: The eGFR is calculated using the CKD-EPI formula. In most young, healthy individuals the eGFR will be >90 mL/min/1.73m2. The eGFR declines with age. An eGFR of 60-89 may be normal in some populations, particularly the elderly, for whom the CKD-EPI formula has not been extensively validated. Use of the eGFR is not recommended in the following populations:& lt;br/>
Individuals with unstable creatinine concentrations, including patients and those with serious co-morbid conditions.

Patients with extremes in muscle mass or diet.

The data above are obtained from the National Kidney Disease Education Program (NKDEP) which additionally recommends that when the eGFR is used in patients with extremes of body mass index for purposes of drug dosing, the eGFR should be multiplied by the estimated BMI. [facility] CHEMISTRY Calcium Lvl 8.5 8.5 - 10.5 02/24/2013 Normal [facility] CHEMISTRY CO2 26 24 - 32 02/24/2013 Normal [facility] CHEMISTRY Chloride Lvl 103 95 - 109 02/24/2013 Normal [facility] CHEMISTRY Creatinine Lvl 1.0 0.5 - 1.4 02/24/2013 Normal [facility] CHEMISTRY Sodium Lvl 136 135 - 145 02/24/2013 Normal [facility] CHEMISTRY BUN 20 7 - 22 02/24/2013 Normal [facility] CHEMISTRY Potassium Lvl 4.0 3.5 - 5.1 02/24/2013 Normal [facility] CHEMISTRY Glucose Lvl 222 70 - 99 02/24/2013 HI <sup>2</sup>Interpretive Data: Adult reference range values reflect the clinical guidelines
of the [place] [employer]. [facility] CHEMISTRY AGAP 11.0 10.0 - 20.0 02/24/2013 Normal [facility] CHEMISTRY Myoglobin 39 25 - 72 02/24/2013 Normal [facility] CHEMISTRY Total CK 110 12 - 191 02/24/2013 Normal [facility] CHEMISTRY Troponin-I 0.03 0.00 - 0.40 02/24/2013 Normal [facility] CHEMISTRY Lipase Lvl 134 73 - 393 02/24/2013 Normal [facility] CHEMISTRY Bili Indirect 0.5 0.0 - 1.0 02/24/2013 Normal [facility] CHEMISTRY A/G Ratio 1.0 0.7 - 1.6 02/24/2013 Normal [facility] CHEMISTRY Globulin 3.5 2.0 - 4.0 02/24/2013 Normal [facility] CHEMISTRY ASPARTATE TRANSAMINASE 15 0 - 37 02/24/2013 Normal [facility] CHEMISTRY Bili Direct 0.4 0.0 - 0.3 02/24/2013 HI [facility] CHEMISTRY Bili Total 0.9 0.2 - 1.3 02/24/2013 Normal [facility] CHEMISTRY Alk Phos 147 39 - 136 02/24/2013 HI [facility] CHEMISTRY ALANINE AMINOTRANSFERASE 31 0 - 65 02/24/2013 Normal [facility] CHEMISTRY Albumin Lvl 3.6 3.5 - 5.0 02/24/2013 Normal [facility] CHEMISTRY Total Protein 7.1 6.4 - 8.4 02/24/2013 Normal [facility] HEMATOLOGY RDW 16.4 11.5 - 14.5 02/24/2013 HI [facility] HEMATOLOGY MCHC 32.5 32.0 - 36.0 02/24/2013 Normal [facility] HEMATOLOGY MCH 27.4 27.0 - 31.0 02/24/2013 Normal [facility] HEMATOLOGY Platelet 213 133 - 450 02/24/2013 Normal [facility] HEMATOLOGY MPV 9.8 7.4 - 10.4 02/24/2013 Normal [facility] RBC X 10x6 5.39 4.70 - 6.10 02/24/2013 Normal [facility] HEMATOLOGY MCV 84.5 80.0 - 94.0 02/24/2013 Normal [facility] HEMATOLOGY Hct 45.6 42.0 - 54.0 02/24/2013 Normal [facility] WBC X 10x3 9.1 3.7 - 10.4 02/24/2013 Normal [facility] Hgb 14.8 14.0 - 18.0 02/24/2013 Normal [facility] aPTT 29.6 22.9 - 35.8 02/24/2013 Normal <sup>4</sup>Interpretive Data: Heparin Therapeutic Range: 57 - 92 Seconds [facility] HEMATOLOGY PROTIME 17.2 12.0 - 14.7 02/24/2013 HI [facility] HEMATOLOGY INR 1.42 0.85 - 1.17 02/24/2013 HI <sup>3</sup>Interpretive Data: RECOMMENDED RANGES FOR PROTIME INR:
2.0-3.0 for most medical and surgical thromboembolic states.
2.5-3.5 for artificial heart valves and recurrent embolism.

INR SHOULD BE USED ONLY FOR PATIENTS ON STABLE ANTICOAGULANT THERAPY. [facility] HEMATOLOGY Eosinophils # 0.1 0.0 - 0.5 02/24/2013 Normal [facility] HEMATOLOGY Basophils # 0.0 0.0 - 0.2 02/24/2013 Normal [facility] HEMATOLOGY Lymphocytes 13.0 20.0 - 40.0 02/24/2013 LOW [facility] HEMATOLOGY Segs 77.3 45.0 - 75.0 02/24/2013 HI [facility] HEMATOLOGY Monocytes 8.1 2.0 - 12.0 02/24/2013 Normal [facility] HEMATOLOGY Segs-Bands # 7.0 1.5 - 8.1 02/24/2013 Normal [facility] HEMATOLOGY Basophils 0.4 0.0 - 1.0 02/24/2013 Normal [facility] HEMATOLOGY Eosinophils 1.2 0.0 - 4.0 02/24/2013 Normal [facility] HEMATOLOGY Monocytes # 0.7 0.0 - 0.8 02/24/2013 Normal [facility] HEMATOLOGY Lymphocytes # 1.2 1.0 - 5.5 02/24/2013 Normal [facility] BEDSIDE GLUCOSE TESTING Gluc POC Comment 2 Assess Patient 02/01/2013 [facility] BEDSIDE GLUCOSE TESTING Glucose POC 138 70 - 99 02/01/2013 HI <sup>1</sup>Interpretive Data: Upper Reportable Limit: 200 mg/dL. [facility] BEDSIDE GLUCOSE TESTING Gluc POC Comment 1 Notify RN/ 02/01/2013 [facility] BEDSIDE GLUCOSE TESTING Gluc POC Comment 1 Notify RN/ 02/01/2013 [facility] BEDSIDE GLUCOSE TESTING Gluc POC Comment 2 Assess Patient 02/01/2013 [facility] BEDSIDE GLUCOSE TESTING Glucose POC 240 70 - 99 02/01/2013 HI <sup>2</sup>Interpretive Data: Upper Reportable Limit: 200 mg/dL. [facility] CHEMISTRY Troponin-I 0.04 0.00 - 0.40 02/01/2013 Normal [facility] CHEMISTRY Total CK 240 12 - 191 02/01/2013 HI [facility] CHEMISTRY CK-MB INDEX 0.7 0.0 - 2.5 02/01/2013 Normal [facility] CHEMISTRY CK MB 1.7 0.5 - 3.6 02/01/2013 Normal [facility] BEDSIDE GLUCOSE TESTING Glucose POC 158 70 - 99 02/01/2013 HI <sup>3</sup>Interpretive Data: Upper Reportable Limit: 200 mg/dL. [facility] BEDSIDE GLUCOSE TESTING Gluc POC Comment 1 Notify BRENDON/ 02/01/2013 [facility] BEDSIDE GLUCOSE TESTING Gluc POC Comment 2 Assess Patient 02/01/2013 [facility] CHEMISTRY Troponin-I 0.03 0.00 - 0.40 02/01/2013 Normal [facility] CHEMISTRY Total CK 253 12 - 191 02/01/2013 HI [facility] CHEMISTRY CK-MB INDEX 0.8 0.0 - 2.5 02/01/2013 Normal [facility] CHEMISTRY CK MB 1.9 0.5 - 3.6 02/01/2013 Normal [facility] URINALYSIS UA Bacteria Few /HPF None Seen 02/01/2013 Normal [facility] URINALYSIS UA RBC 0-2 /HPF 0 - 2 02/01/2013 Normal [facility] URINALYSIS UA Mucus Many /LPF None Seen 02/01/2013 ABN [facility] URINALYSIS UA Hyal Cast 0-2 (01/31/2013 22:49:49) 0 - 2 02/01/2013 Normal [facility] URINALYSIS UA WBC 0-2 /HPF None Seen 02/01/2013 Normal [facility] URINALYSIS UA Sq Epi Occasional /LPF Few 02/01/2013 Normal [facility] URINALYSIS Micro? Performed (01/31/2013 22:49:49) 02/01/2013 Normal [facility] URINALYSIS UA Spec Grav >=1.030 *ABN* (01/31/2013 22:49:49) <=1.030 02/01/2013 ABN [facility] URINALYSIS UA Protein >=300 mg/dL Negative 02/01/2013 ABN [facility] URINALYSIS UA pH 6.0 5.0 - 8.0 02/01/2013 Normal [facility] URINALYSIS UA Color Thu *ABN* (01/31/2013 22:49:49) Yellow 02/01/2013 ABN [facility] URINALYSIS UA Turbidity Slight Cloudy (01/31/2013 22:49:49) Clear 02/01/2013 Normal [facility] URINALYSIS UA Blood Trace *ABN* (01/31/2013 22:49:49) Negative 02/01/2013 ABN [facility] URINALYSIS UA Urobilinogen 0.2 0.1 - 1.0 02/01/2013 Normal [facility] URINALYSIS UA Nitrite Negative (01/31/2013 22:49:49) Negative 02/01/2013 Normal [facility] URINALYSIS UA Leuk Est Negative (01/31/2013 22:49:49) Negative 02/01/2013 Normal [facility] URINALYSIS UA Ketones Negative *NA* (01/31/2013 22:49:49) Negative 02/01/2013 [facility] URINALYSIS UA Glucose Negative (01/31/2013 22:49:49) Negative 02/01/2013 Normal [facility] URINALYSIS UA Bili Moderate 4 *ABN* (01/31/2013 22:49:49) Negative 02/01/2013 ABN <sup>4</sup>Result Comment: Interpret positive bilirubin results with caution. Confirmatory testing
not possible due to the unavailability of reagent. Correlation with
serum chemistry results recommended. [facility] CHEMISTRY CK MB 1.8 0.5 - 3.6 02/01/2013 Normal [facility] CHEMISTRY Troponin-I 0.04 0.00 - 0.40 02/01/2013 Normal [facility] CHEMISTRY Total CK 238 12 - 191 02/01/2013 HI [facility] CHEMISTRY Lipase Lvl 72 73 - 393 02/01/2013 LOW [facility] CHEMISTRY Magnesium Lvl 1.7 1.8 - 2.4 02/01/2013 LOW [facility] CHEMISTRY BNP 1615 <=100 02/01/2013 HI <sup>7</sup>Interpretive Data: Elevated results are in line with increasing severity of
congestive heart failure. Minor elevations between 100 and 300
may be seen with Myocardial Ischemia, Sodium retaining drugs,
and compensated/treated heart failure. [facility] CHEMISTRY eGFR 89 02/01/2013 <sup>5</sup>Result Comment: The eGFR is calculated using the CKD-EPI formula. In most young, healthy individuals the eGFR will be >90 mL/min/1.73m2. The eGFR declines with age. An eGFR of 60-89 may be normal in some populations, particularly the elderly, for whom the CKD-EPI formula has not been extensively validated. Use of the eGFR is not recommended in the following populations:& lt;br/>
Individuals with unstable creatinine concentrations, including patients and those with serious co-morbid conditions.

Patients with extremes in muscle mass or diet.

The data above are obtained from the National Kidney Disease Education Program (NKDEP) which additionally recommends that when the eGFR is used in patients with extremes of body mass index for purposes of drug dosing, the eGFR should be multiplied by the estimated BMI. [facility] CHEMISTRY Bili Total 1.1 0.2 - 1.3 02/01/2013 Normal [facility] CHEMISTRY AGAP 12.6 10.0 - 20.0 02/01/2013 Normal [facility] CHEMISTRY ASPARTATE TRANSAMINASE 17 0 - 37 02/01/2013 Normal [facility] CHEMISTRY Globulin 3.2 2.0 - 4.0 02/01/2013 Normal [facility] CHEMISTRY B/C Ratio 9 6 - 25 02/01/2013 Normal [facility] CHEMISTRY A/G Ratio 1.1 0.7 - 1.6 02/01/2013 Normal [facility] CHEMISTRY Total Protein 6.7 6.4 - 8.4 02/01/2013 Normal [facility] CHEMISTRY ALANINE AMINOTRANSFERASE 21 0 - 65 02/01/2013 Normal [facility] CHEMISTRY Alk Phos 162 39 - 136 02/01/2013 HI [facility] CHEMISTRY Albumin Lvl 3.5 3.5 - 5.0 02/01/2013 Normal [facility] CHEMISTRY BUN 9 7 - 22 02/01/2013 Normal [facility] CHEMISTRY Glucose Lvl 134 70 - 99 02/01/2013 HI <sup>6</sup>Interpretive Data: Adult reference range values reflect the clinical guidelines
of the [place] [employer]. [facility] CHEMISTRY Potassium Lvl 3.6 3.5 - 5.1 02/01/2013 Normal [facility] CHEMISTRY Sodium Lvl 139 135 - 145 02/01/2013 Normal [facility] CHEMISTRY Creatinine Lvl 1.0 0.5 - 1.4 02/01/2013 Normal [facility] CHEMISTRY Chloride Lvl 106 95 - 109 02/01/2013 Normal [facility] CHEMISTRY CO2 24 24 - 32 02/01/2013 Normal [facility] CHEMISTRY Calcium Lvl 8.1 8.5 - 10.5 02/01/2013 LOW [facility] CHEMISTRY CK-MB INDEX 0.8 0.0 - 2.5 02/01/2013 Normal [facility] HEMATOLOGY RBC X 10x6 5.32 4.70 - 6.10 02/01/2013 Normal [facility] HEMATOLOGY Hgb 15.0 14.0 - 18.0 02/01/2013 Normal [facility] HEMATOLOGY MPV 8.6 7.4 - 10.4 02/01/2013 Normal [facility] HEMATOLOGY Platelet 203 133 - 450 02/01/2013 Normal [facility] HEMATOLOGY Hct 46.8 42.0 - 54.0 02/01/2013 Normal [facility] HEMATOLOGY RDW 15.7 11.5 - 14.5 02/01/2013 HI [facility] HEMATOLOGY MCH 28.1 27.0 - 31.0 02/01/2013 Normal [facility] HEMATOLOGY MCHC 32.0 32.0 - 36.0 02/01/2013 Normal [facility] HEMATOLOGY MCV 87.9 80.0 - 94.0 02/01/2013 Normal [facility] HEMATOLOGY WBC X 10x3 6.6 3.7 - 10.4 02/01/2013 Normal [facility] HEMATOLOGY INR 1.39 0.85 - 1.17 02/01/2013 HI <sup>8</sup>Interpretive Data: RECOMMENDED RANGES FOR PROTIME INR:
2.0-3.0 for most medical and surgical thromboembolic states.
2.5-3.5 for artificial heart valves and recurrent embolism.

INR SHOULD BE USED ONLY FOR PATIENTS ON STABLE ANTICOAGULANT THERAPY. [facility] HEMATOLOGY PROTIME 16.9 12.0 - 14.7 02/01/2013 [facility] HEMATOLOGY aPTT 30.3 22.9 - 35.8 02/01/2013 Normal <sup>9</sup>Interpretive Data: Heparin Therapeutic Range: 57 - 92 Seconds [facility] HEMATOLOGY Basophils # 0.0 0.0 - 0.2 02/01/2013 Normal [facility] HEMATOLOGY Lymphocytes 12.8 20.0 - 40.0 02/01/2013 LOW [facility] HEMATOLOGY Segs 79.0 45.0 - 75.0 02/01/2013 HI [facility] HEMATOLOGY Monocytes 7.1 2.0 - 12.0 02/01/2013 Normal [facility] Segs-Bands # 5.2 1.5 - 8.1 02/01/2013 Normal [facility] Basophils 0.4 0.0 - 1.0 02/01/2013 Normal [facility] Monocytes # 0.5 0.0 - 0.8 02/01/2013 Normal [facility] Lymphocytes # 0.8 1.0 - 5.5 02/01/2013 LOW [facility] Eosinophils # 0.0 0.0 - 0.5 02/01/2013 Normal [facility] HEMATOLOGY Eosinophils 0.7 0.0 - 4.0 02/01/2013 Normal [facility] BEDSIDE GLUCOSE TESTING Gluc POC Comment 1 Notified RN/ 01/24/2013 [facility] [facility] BEDSIDE GLUCOSE TESTING Glucose POC 194 70 - 99 01/24/2013 HI <sup>2</sup>Interpretive Data: Upper Reportable Limit: 200 mg/dL. [facility] CHEMISTRY eGFR 65 01/24/2013 <sup>5</sup>Result Comment: The eGFR is calculated using the CKD-EPI formula. In most young, healthy individuals the eGFR will be >90 mL/min/1.73m2. The eGFR declines with age. An eGFR of 60-89 may be normal in some populations, particularly the elderly, for whom the CKD-EPI formula has not been extensively validated. Use of the eGFR is not recommended in the following populations:& lt;br/>
Individuals with unstable creatinine concentrations, including patients and those with serious co-morbid conditions.

Patients with extremes in muscle mass or diet.

The data above are obtained from the National Kidney Disease Education Program (NKDEP) which additionally recommends that when the eGFR is used in patients with extremes of body mass index for purposes of drug dosing, the eGFR should be multiplied by the estimated BMI. [facility] [facility] CHEMISTRY Calcium Lvl 8.3 8.5 - 10.5 01/24/2013 LOW [facility] CHEMISTRY CO2 27 24 - 32 01/24/2013 Normal [facility] CHEMISTRY BUN 18 7 - 22 01/24/2013 Normal [facility] CHEMISTRY AGAP 17.7 10.0 - 20.0 01/24/2013 Normal [facility] CHEMISTRY Chloride Lvl 103 95 - 109 01/24/2013 Normal [facility] [place] CHEMISTRY Creatinine Lvl 1.3 0.5 - 1.4 01/24/2013 Normal [facility] [place] CHEMISTRY Sodium Lvl 144 135 - 145 01/24/2013 Normal [facility] CHEMISTRY Potassium Lvl 3.7 3.5 - 5.1 01/24/2013 Normal [facility] CHEMISTRY Glucose Lvl 94 70 - 99 01/24/2013 Normal <sup>8</sup>Interpretive Data: Adult reference range values reflect the clinical guidelines
of the [employer] [employer]. [facility] [facility] CHEMISTRY Phosphorus 4.7 2.5 - 4.5 01/23/2013 HI [facility] CHEMISTRY eGFR 65 01/23/2013 <sup>6</sup>Result Comment: The eGFR is calculated using the CKD-EPI formula. In most young, healthy individuals the eGFR will be >90 mL/min/1.73m2. The eGFR declines with age. An eGFR of 60-89 may be normal in some populations, particularly the elderly, for whom the CKD-EPI formula has not been extensively validated. Use of the eGFR is not recommended in the following populations:& lt;br/>
Individuals with unstable creatinine concentrations, including patients and those with serious co-morbid conditions.

Patients with extremes in muscle mass or diet.

The data above are obtained from the National Kidney Disease Education Program (NKDEP) which additionally recommends that when the eGFR is used in patients with extremes of body mass index for purposes of drug dosing, the eGFR should be multiplied by the estimated BMI. [facility] CHEMISTRY Calcium Lvl 8.8 8.5 - 10.5 01/23/2013 Normal [facility] CHEMISTRY Sodium Lvl 143 135 - 145 01/23/2013 Normal [facility] CHEMISTRY Potassium Lvl 3.6 3.5 - 5.1 01/23/2013 Normal [facility] [place] CHEMISTRY Chloride Lvl 104 95 - 109 01/23/2013 Normal [facility] [place] CHEMISTRY CO2 26 24 - 32 01/23/2013 Normal [facility] CHEMISTRY AGAP 16.6 10.0 - 20.0 01/23/2013 Normal [facility] [place] CHEMISTRY Creatinine Lvl 1.3 0.5 - 1.4 01/23/2013 Normal <sup>4</sup>Result Comment: reviewed 01/23/2013 06:40 gr [facility] CHEMISTRY Glucose Lvl 131 70 - 99 01/23/2013 HI <sup>9</sup>Interpretive Data: Adult reference range values reflect the clinical guidelines
of the [employer]. [facility] CHEMISTRY BUN 15 7 - 22 01/23/2013 Normal [facility] [place] CHEMISTRY Magnesium Lvl 1.7 1.8 - 2.4 01/23/2013 LOW [facility] [place] CHEMISTRY CK-MB INDEX 1.1 0.0 - 2.5 01/23/2013 Normal [facility] CHEMISTRY CK MB 1.6 0.5 - 3.6 01/23/2013 Normal [facility] CHEMISTRY Troponin-I 0.04 0.00 - 0.40 01/23/2013 Normal [facility] [place] CHEMISTRY Total CK 144 12 - 191 01/23/2013 Normal [facility] HEMATOLOGY Platelet 205 133 - 450 01/23/2013 Normal [facility] HEMATOLOGY MPV 9.4 7.4 - 10.4 01/23/2013 Normal [facility] [facility] HEMATOLOGY MCH 28.8 27.0 - 31.0 01/23/2013 Normal [facility] HEMATOLOGY MCV 88.3 80.0 - 94.0 01/23/2013 Normal [facility] HEMATOLOGY MCHC 32.6 32.0 - 36.0 01/23/2013 Normal [facility] HEMATOLOGY Hct 44.5 42.0 - 54.0 01/23/2013 Normal [facility] HEMATOLOGY RDW 15.3 11.5 - 14.5 01/23/2013 HI [facility] HEMATOLOGY Hgb 14.5 14.0 - 18.0 01/23/2013 Normal [facility] HEMATOLOGY RBC X 10x6 5.05 4.70 - 6.10 01/23/2013 Normal [facility] HEMATOLOGY WBC X 10x3 6.8 3.7 - 10.4 01/23/2013 Normal [facility] INFECTIOUS DISEASES C difficile DNA Negative 1 (01/22/2013 21:30:00) Negative 01/23/2013 Normal <sup>1</sup>Interpretive Data: [employer] Clostridium difficile assay utilizes loop-mediated isothermal DNA amplification (LAMP) technology to detect a 204 bp region of the tcdA gene within the PaLoc gene segment present in all known toxigenic C. difficile strains.

The assay utilizes FDA cleared IVD reagents. Performance characteristics have been verified by the [facility] within the [facility]. The [facility] Laboratory is authorized under the Clinical Laboratory Improvement Amendment of 1988 (CLIA-88) to perform high complexity testing. [facility] STOOL TESTS Fecal Leukocyte None Seen 3 (01/22/2013 21:30:00) 01/23/2013 Normal <sup>3</sup>Interpretive Data: A Value of None Seen, Rare, or Few is Normal. [facility] CHEMISTRY CK-MB INDEX 1.0 0.0 - 2.5 01/23/2013 Normal [facility] CHEMISTRY CK MB 1.7 0.5 - 3.6 01/23/2013 Normal [facility] CHEMISTRY Troponin-I 0.02 0.00 - 0.40 01/23/2013 Normal [facility] CHEMISTRY Total CK 171 12 - 191 01/23/2013 Normal [facility] CHEMISTRY CK-MB INDEX 1.0 0.0 - 2.5 01/22/2013 Normal [facility] CHEMISTRY CK MB 1.6 0.5 - 3.6 01/22/2013 Normal [facility] [place] CHEMISTRY eGFR 89 01/22/2013 <sup>7</sup>Result Comment: The eGFR is calculated using the CKD-EPI formula. In most young, healthy individuals the eGFR will be >90 mL/min/1.73m2. The eGFR declines with age. An eGFR of 60-89 may be normal in some populations, particularly the elderly, for whom the CKD-EPI formula has not been extensively validated. Use of the eGFR is not recommended in the following populations:& lt;br/>
Individuals with unstable creatinine concentrations, including patients and those with serious co-morbid conditions.

Patients with extremes in muscle mass or diet.

The data above are obtained from the National Kidney Disease Education Program (NKDEP) which additionally recommends that when the eGFR is used in patients with extremes of body mass index for purposes of drug dosing, the eGFR should be multiplied by the estimated BMI. [facility] CHEMISTRY Creatinine Lvl 1.0 0.5 - 1.4 01/22/2013 Normal [facility] CHEMISTRY Total CK 168 12 - 191 01/22/2013 Normal [facility] CHEMISTRY Troponin-I 0.03 0.00 - 0.40 01/22/2013 Normal [facility] HEMATOLOGY aPTT 29.5 22.9 - 35.8 01/22/2013 Normal <sup>13</sup>Interpretive Data: Heparin Therapeutic Range: 57 - 92 Seconds [facility] [facility] HEMATOLOGY Platelet 189 133 - 450 01/22/2013 Normal [facility] CHEMISTRY BNP 1829 <=100 01/22/2013 HI <sup>11</sup>Interpretive Data: Elevated results are in line with increasing severity of
congestive heart failure. Minor elevations between 100 and 300
may be seen with Myocardial Ischemia, Sodium retaining drugs,
and compensated/treated heart failure. [facility] CHEMISTRY Lipase Lvl 89 73 - 393 01/22/2013 Normal [facility] [place] CHEMISTRY B/C Ratio 8 6 - 25 01/22/2013 Normal [facility] [place] CHEMISTRY Globulin 3.2 2.0 - 4.0 01/22/2013 Normal [facility] CHEMISTRY Bili Total 1.2 0.2 - 1.3 01/22/2013 Normal [facility] CHEMISTRY A/G Ratio 1.2 0.7 - 1.6 01/22/2013 Normal [facility] CHEMISTRY AGAP 15.4 10.0 - 20.0 01/22/2013 Normal [facility] CHEMISTRY ASPARTATE TRANSAMINASE 24 0 - 37 01/22/2013 Normal [facility] [place] CHEMISTRY Alk Phos 178 39 - 136 01/22/2013 HI [facility] CHEMISTRY ALANINE AMINOTRANSFERASE 31 0 - 65 01/22/2013 Normal [facility] CHEMISTRY Total Protein 6.9 6.4 - 8.4 01/22/2013 Normal [facility] [place] CHEMISTRY Albumin Lvl 3.7 3.5 - 5.0 01/22/2013 Normal [facility] [place] CHEMISTRY Calcium Lvl 8.6 8.5 - 10.5 01/22/2013 Normal [facility] [place] CHEMISTRY CO2 28 24 - 32 01/22/2013 Normal [facility] CHEMISTRY Potassium Lvl 3.4 3.5 - 5.1 01/22/2013 LOW [facility] CHEMISTRY Sodium Lvl 141 135 - 145 01/22/2013 Normal [facility] CHEMISTRY Chloride Lvl 101 95 - 109 01/22/2013 Normal [facility] CHEMISTRY BUN 10 7 - 22 01/22/2013 Normal [facility] CHEMISTRY Glucose Lvl 114 70 - 99 01/22/2013 HI <sup>10</sup>Interpretive Data: Adult reference range values reflect the clinical guidelines
of the [employer] [employer]. [facility] [facility] HEMATOLOGY PROTIME 17.5 12.0 - 14.7 01/22/2013 HI [facility] HEMATOLOGY INR 1.46 0.85 - 1.17 01/22/2013 HI <sup>12</sup>Interpretive Data: RECOMMENDED RANGES FOR PROTIME INR:
2.0-3.0 for most medical and surgical thromboembolic states.
2.5-3.5 for artificial heart valves and recurrent embolism.

INR SHOULD BE USED ONLY FOR PATIENTS ON STABLE ANTICOAGULANT THERAPY. [facility] HEMATOLOGY aPTT 29.5 22.9 - 35.8 01/22/2013 Normal <sup>14</sup>Interpretive Data: Heparin Therapeutic Range: 57 - 92 Seconds [facility] HEMATOLOGY MPV 9.5 7.4 - 10.4 01/22/2013 Normal [facility] [place] HEMATOLOGY Platelet 190 133 - 450 01/22/2013 Normal [facility] HEMATOLOGY WBC X 10x3 7.1 3.7 - 10.4 01/22/2013 Normal [facility] HEMATOLOGY RDW 15.7 11.5 - 14.5 01/22/2013 HI [facility] HEMATOLOGY MCHC 32.6 32.0 - 36.0 01/22/2013 Normal [facility] HEMATOLOGY Hct 46.2 42.0 - 54.0 01/22/2013 Normal [facility] HEMATOLOGY Hgb 15.1 14.0 - 18.0 01/22/2013 Normal [facility] HEMATOLOGY MCH 29.1 27.0 - 31.0 01/22/2013 Normal [facility] [place] HEMATOLOGY MCV 89.4 80.0 - 94.0 01/22/2013 Normal [facility] [place] HEMATOLOGY RBC X 10x6 5.17 4.70 - 6.10 01/22/2013 Normal [facility] HEMATOLOGY Basophils # 0.0 0.0 - 0.2 01/22/2013 Normal [facility] HEMATOLOGY Eosinophils # 0.0 0.0 - 0.5 01/22/2013 Normal [facility] HEMATOLOGY Basophils 0.4 0.0 - 1.0 01/22/2013 Normal [facility] HEMATOLOGY Eosinophils 0.5 0.0 - 4.0 01/22/2013 [facility] HEMATOLOGY Monocytes # 0.6 0.0 - 0.8 01/22/2013 Normal [facility] HEMATOLOGY Segs-Bands # 5.6 1.5 - 8.1 01/22/2013 [facility] HEMATOLOGY Lymphocytes # 0.9 1.0 - 5.5 01/22/2013 LOW [facility] HEMATOLOGY Monocytes 7.9 2.0 - 12.0 01/22/2013 Normal [facility] HEMATOLOGY Segs 78.0 45.0 - 75.0 01/22/2013 HI [facility] HEMATOLOGY Lymphocytes 13.2 20.0 - 40.0 01/22/2013 LOW [facility] BEDSIDE GLUCOSE TESTING Glucose POC 111 70 - 99 01/15/2013 HI <sup>1</sup>Interpretive Data: Upper Reportable Limit: 200 mg/dL. [facility] BEDSIDE GLUCOSE TESTING Glucose POC 202 70 - 99 01/15/2013 HI <sup>2</sup>Interpretive Data: Upper Reportable Limit: 200 mg/dL. [facility] BEDSIDE GLUCOSE TESTING Glucose POC 103 70 - 99 01/15/2013 HI <sup>3</sup>Interpretive Data: Upper Reportable Limit: 200 mg/dL. [facility] CHEMISTRY eGFR 79 01/15/2013 <sup>5</sup>Result Comment: The eGFR is calculated using the CKD-EPI formula. In most young, healthy individuals the eGFR will be >90 mL/min/1.73m2. The eGFR declines with age. An eGFR of 60-89 may be normal in some populations, particularly the elderly, for whom the CKD-EPI formula has not been extensively validated. Use of the eGFR is not recommended in the following populations:& lt;br/>
Individuals with unstable creatinine concentrations, including patients and those with serious co-morbid conditions.

Patients with extremes in muscle mass or diet.

The data above are obtained from the National Kidney Disease Education Program (NKDEP) which additionally recommends that when the eGFR is used in patients with extremes of body mass index for purposes of drug dosing, the eGFR should be multiplied by the estimated BMI. [facility] CHEMISTRY CO2 24 24 - 32 01/15/2013 Normal [facility] CHEMISTRY Calcium Lvl 8.0 8.5 - 10.5 01/15/2013 LOW [facility] CHEMISTRY Glucose Lvl 124 70 - 99 01/15/2013 HI <sup>7</sup>Interpretive Data: Adult reference range values reflect the clinical guidelines
of the [employer]. [facility] CHEMISTRY Creatinine Lvl 1.1 0.5 - 1.4 01/15/2013 Normal [facility] CHEMISTRY BUN 25 7 - 22 01/15/2013 HI [facility] CHEMISTRY Sodium Lvl 139 135 - 145 01/15/2013 Normal [facility] CHEMISTRY Potassium Lvl 3.9 3.5 - 5.1 01/15/2013 Normal [facility] CHEMISTRY Chloride Lvl 105 95 - 109 01/15/2013 Normal [facility] CHEMISTRY AGAP 13.9 10.0 - 20.0 01/15/2013 Normal [facility] HEMATOLOGY RDW 15.6 11.5 - 14.5 01/15/2013 HI [facility] HEMATOLOGY Hct 44.1 42.0 - 54.0 01/15/2013 Normal [facility] HEMATOLOGY Hgb 14.3 14.0 - 18.0 01/15/2013 Normal [facility] HEMATOLOGY RBC X 10x6 4.90 4.70 - 6.10 01/15/2013 Normal [facility] HEMATOLOGY WBC X 10x3 6.0 3.7 - 10.4 01/15/2013 Normal [facility] HEMATOLOGY MCV 89.9 80.0 - 94.0 01/15/2013 Normal [facility] HEMATOLOGY MCH 29.1 27.0 - 31.0 01/15/2013 Normal [facility] HEMATOLOGY MPV 9.2 7.4 - 10.4 01/15/2013 Normal [facility] HEMATOLOGY Platelet 198 133 - 450 01/15/2013 Normal [facility] HEMATOLOGY MCHC 32.4 32.0 - 36.0 01/15/2013 Normal [facility] HEMATOLOGY Basophils # 0.0 0.0 - 0.2 01/15/2013 Normal [facility] HEMATOLOGY Eosinophils # 0.1 0.0 - 0.5 01/15/2013 Normal [facility] HEMATOLOGY Monocytes # 0.6 0.0 - 0.8 01/15/2013 Normal [facility] HEMATOLOGY Lymphocytes 17.7 20.0 - 40.0 01/15/2013 LOW [facility] HEMATOLOGY Lymphocytes # 1.1 1.0 - 5.5 01/15/2013 Normal [facility] HEMATOLOGY Monocytes 9.5 2.0 - 12.0 01/15/2013 Normal [facility] HEMATOLOGY Segs 70.6 45.0 - 75.0 01/15/2013 Normal [facility] HEMATOLOGY Segs-Bands # 4.3 1.5 - 8.1 01/15/2013 Normal [facility] HEMATOLOGY Basophils 0.6 0.0 - 1.0 01/15/2013 Normal [facility] HEMATOLOGY Eosinophils 1.6 0.0 - 4.0 01/15/2013 Normal [facility] CHEMISTRY CK MB 1.5 0.5 - 3.6 01/15/2013 Normal [facility] CHEMISTRY CK-MB INDEX 1.3 0.0 - 2.5 01/15/2013 Normal [facility] CHEMISTRY Total CK 118 12 - 191 01/15/2013 Normal [facility] CHEMISTRY Troponin-I 0.03 0.00 - 0.40 01/15/2013 Normal [facility] BEDSIDE GLUCOSE TESTING Gluc POC Comment 1 Notified RN/MD 01/15/2013 [facility] CHEMISTRY Total CK 110 12 - 191 01/15/2013 Normal [facility] CHEMISTRY Troponin-I 0.03 0.00 - 0.40 01/15/2013 Normal [facility] CHEMISTRY CK-MB INDEX 1.1 0.0 - 2.5 01/15/2013 Normal [facility] CHEMISTRY CK MB 1.2 0.5 - 3.6 01/15/2013 Normal [facility] VIRAL - SEROLOGY Influ B Negative 4 (01/14/2013 15:55:00) Negative 01/14/2013 Normal <sup>4</sup>Interpretive Data: Influenza A&B Antigen:
Due to the low sensitivity of this test a negative result does not exclude influenza virus infection. A diagnosis of influenza should be considered based on a patient's clinical presentation and empiric antiviral treatment should be considered, if indicated. If more conclusive testing is desired, follow-up confirmatory testing with either viral culture or PCR is warranted. [facility] VIRAL - SEROLOGY Influ A Negative (01/14/2013 15:55:00) Negative 01/14/2013 Normal [facility] CHEMISTRY BNP 1962 <=100 01/14/2013 HI <sup>9</sup>Interpretive Data: Elevated results are in line with increasing severity of
congestive heart failure. Minor elevations between 100 and 300
may be seen with Myocardial Ischemia, Sodium retaining drugs,
and compensated/treated heart failure. [facility] CHEMISTRY Troponin-I 0.04 0.00 - 0.40 01/14/2013 Normal [facility] CHEMISTRY eGFR 71 01/14/2013 <sup>6</sup>Result Comment: The eGFR is calculated using the CKD-EPI formula. In most young, healthy individuals the eGFR will be >90 mL/min/1.73m2. The eGFR declines with age. An eGFR of 60-89 may be normal in some populations, particularly the elderly, for whom the CKD-EPI formula has not been extensively validated. Use of the eGFR is not recommended in the following populations:& lt;br/>
Individuals with unstable creatinine concentrations, including patients and those with serious co-morbid conditions.

Patients with extremes in muscle mass or diet.

The data above are obtained from the National Kid[employer] Disease Education Program (NKDEP) which additionally recommends that when the eGFR is used in patients with extremes of body mass index for purposes of drug dosing, the eGFR should be multiplied by the estimated BMI. [facility] CHEMISTRY A/G Ratio 1.2 0.7 - 1.6 01/14/2013 Normal [facility] CHEMISTRY Globulin 3.0 2.0 - 4.0 01/14/2013 Normal [facility] CHEMISTRY B/C Ratio 17 6 - 25 01/14/2013 Normal [facility] CHEMISTRY ASPARTATE TRANSAMINASE 26 0 - 37 01/14/2013 Normal [facility] CHEMISTRY AGAP 10.9 10.0 - 20.0 01/14/2013 Normal [facility] CHEMISTRY Alk Phos 131 39 - 136 01/14/2013 Normal [facility] CHEMISTRY Bili Total 1.1 0.2 - 1.3 01/14/2013 Normal [facility] CHEMISTRY ALANINE AMINOTRANSFERASE 45 0 - 65 01/14/2013 Normal [facility] CHEMISTRY Total Protein 6.5 6.4 - 8.4 01/14/2013 Normal [facility] CHEMISTRY Albumin Lvl 3.5 3.5 - 5.0 01/14/2013 Normal [facility] CHEMISTRY Calcium Lvl 8.6 8.5 - 10.5 01/14/2013 Normal [facility] CHEMISTRY CO2 26 24 - 32 01/14/2013 Normal [facility] CHEMISTRY Potassium Lvl 3.9 3.5 - 5.1 01/14/2013 Normal [facility] CHEMISTRY Chloride Lvl 106 95 - 109 01/14/2013 Normal [facility] CHEMISTRY Sodium Lvl 139 135 - 145 01/14/2013 Normal [facility] CHEMISTRY Creatinine Lvl 1.2 0.5 - 1.4 01/14/2013 Normal [facility] CHEMISTRY Glucose Lvl 122 70 - 99 01/14/2013 HI <sup>8</sup>Interpretive Data: Adult reference range values reflect the clinical guidelines
of the [employer]. [facility] CHEMISTRY BUN 20 7 - 22 01/14/2013 Normal [facility] CHEMISTRY Total CK 101 12 - 191 01/14/2013 Normal [facility] CHEMISTRY CK MB 1.1 0.5 - 3.6 01/14/2013 Normal [facility] CHEMISTRY CK-MB INDEX 1.1 0.0 - 2.5 01/14/2013 Normal [facility] HEMATOLOGY aPTT 30.2 22.9 - 35.8 01/14/2013 Normal <sup>11</sup>Interpretive Data: Heparin Therapeutic Range: 57 - 92 Seconds [facility] HEMATOLOGY INR 1.57 0.85 - 1.17 01/14/2013 HI <sup>10</sup>Interpretive Data: RECOMMENDED RANGES FOR PROTIME INR:
2.0-3.0 for most medical and surgical thromboembolic states.
2.5-3.5 for artificial heart valves and recurrent embolism.

INR SHOULD BE USED ONLY FOR PATIENTS ON STABLE ANTICOAGULANT THERAPY. [facility] HEMATOLOGY PROTIME 18.5 12.0 - 14.7 01/14/2013 HI [facility] HEMATOLOGY Hgb 15.2 14.0 - 18.0 01/14/2013 Normal [facility] HEMATOLOGY RBC X 10x6 5.22 4.70 - 6.10 01/14/2013 Normal [facility] HEMATOLOGY WBC X 10x3 6.6 3.7 - 10.4 01/14/2013 Normal [facility] HEMATOLOGY Hct 47.2 42.0 - 54.0 01/14/2013 Normal [facility] HEMATOLOGY MCH 29.2 27.0 - 31.0 01/14/2013 Normal [facility] HEMATOLOGY MCV 90.5 80.0 - 94.0 01/14/2013 Normal [facility] HEMATOLOGY RDW 15.4 11.5 - 14.5 01/14/2013 [facility] HEMATOLOGY MCHC 32.3 32.0 - 36.0 01/14/2013 Normal [facility] HEMATOLOGY Platelet 227 133 - 450 01/14/2013 Normal [facility] HEMATOLOGY MPV 8.9 7.4 - 10.4 01/14/2013 Normal [facility] HEMATOLOGY Basophils # 0.0 0.0 - 0.2 01/14/2013 Normal [facility] HEMATOLOGY Monocytes 9.4 2.0 - 12.0 01/14/2013 Normal [facility] HEMATOLOGY Segs 73.0 45.0 - 75.0 01/14/2013 Normal [facility] HEMATOLOGY Eosinophils 0.7 0.0 - 4.0 01/14/2013 Normal [facility] HEMATOLOGY Basophils 0.2 0.0 - 1.0 01/14/2013 Normal [facility] HEMATOLOGY Lymphocytes 16.7 20.0 - 40.0 01/14/2013 LOW [facility] HEMATOLOGY Monocytes # 0.6 0.0 - 0.8 01/14/2013 Normal [facility] HEMATOLOGY Eosinophils # 0.0 0.0 - 0.5 01/14/2013 Normal [facility] HEMATOLOGY Segs-Bands # 4.8 1.5 - 8.1 01/14/2013 Normal [facility] HEMATOLOGY Lymphocytes # 1.1 1.0 - 5.5 01/14/2013 Normal [facility] BEDSIDE GLUCOSE TESTING Glucose POC 132 70 - 99 01/06/2013 HI <sup>2</sup>Interpretive Data: Upper Reportable Limit: 200 mg/dL. [facility] BEDSIDE GLUCOSE TESTING Gluc POC Comment 1 Notify NEVA 01/06/2013 [facility] INFECTIOUS DISEASES C difficile DNA Negative 1 (01/06/2013 07:00:00) Negative 01/06/2013 Normal <sup>1</sup>Interpretive Data: FST21 illumigene Clostridium difficile assay utilizes loop-mediated isothermal DNA amplification (LAMP) technology to detect a 204 bp region of the tcdA gene within the PaLoc gene segment present in all known toxigenic C. difficile strains.

The assay utilizes FDA cleared IVD reagents. Performance characteristics have been verified by the [facility] within the [facility]. The [facility] is authorized under the Clinical Laboratory Improvement Amendment of 1988 (CLIA-88) to perform high complexity testing. [facility] BEDSIDE GLUCOSE TESTING Gluc POC Comment 1 Notify NEVA 01/06/2013 [facility] BEDSIDE GLUCOSE TESTING Glucose POC 93 70 - 99 01/06/2013 Normal <sup>3</sup>Interpretive Data: Upper Reportable Limit: 200 mg/dL. [facility] BEDSIDE GLUCOSE TESTING Gluc POC Comment 1 Notify NEVA 01/06/2013 [facility] BEDSIDE GLUCOSE TESTING Glucose POC 142 70 - 99 01/06/2013 HI <sup>4</sup>Interpretive Data: Upper Reportable Limit: 200 mg/dL. [facility] CHEMISTRY eGFR 71 01/05/2013 <sup>5</sup>Result Comment: The eGFR is calculated using the CKD-EPI formula. In most young, healthy individuals the eGFR will be >90 mL/min/1.73m2. The eGFR declines with age. An eGFR of 60-89 may be normal in some populations, particularly the elderly, for whom the CKD-EPI formula has not been extensively validated. Use of the eGFR is not recommended in the following populations:& lt;br/>
Individuals with unstable creatinine concentrations, including patients and those with serious co-morbid conditions.

Patients with extremes in muscle mass or diet.

The data above are obtained from the National Kidney Disease Education Program (NKDEP) which additionally recommends that when the eGFR is used in patients with extremes of body mass index for purposes of drug dosing, the eGFR should be multiplied by the estimated BMI. [facility] CHEMISTRY Calcium Lvl 8.0 8.5 - 10.5 01/05/2013 LOW [facility] CHEMISTRY CO2 29 24 - 32 01/05/2013 Normal [facility] CHEMISTRY Chloride Lvl 100 95 - 109 01/05/2013 Normal [facility] CHEMISTRY Sodium Lvl 141 135 - 145 01/05/2013 Normal [facility] CHEMISTRY Potassium Lvl 3.6 3.5 - 5.1 01/05/2013 Normal [facility] CHEMISTRY Creatinine Lvl 1.2 0.5 - 1.4 01/05/2013 Normal [facility] CHEMISTRY BUN 17 7 - 22 01/05/2013 Normal [facility] CHEMISTRY Glucose Lvl 95 70 - 99 01/05/2013 Normal <sup>7</sup>Interpretive Data: Adult reference range values reflect the clinical guidelines
of the [employer] [employer]. [facility] CHEMISTRY AGAP 15.6 10.0 - 20.0 01/05/2013 Normal [facility] HEMATOLOGY MCH 30.0 27.0 - 31.0 01/05/2013 Normal [facility] HEMATOLOGY MPV 8.8 7.4 - 10.4 01/05/2013 Normal [facility] HEMATOLOGY Platelet 241 133 - 450 01/05/2013 Normal [facility] HEMATOLOGY MCHC 33.1 32.0 - 36.0 01/05/2013 [facility] HEMATOLOGY RDW 15.4 11.5 - 14.5 01/05/2013 HI [facility] HEMATOLOGY RBC X 10x6 4.61 4.70 - 6.10 01/05/2013 LOW [facility] HEMATOLOGY MCV 90.6 80.0 - 94.0 01/05/2013 [facility] HEMATOLOGY Hct 41.8 42.0 - 54.0 01/05/2013 [facility] HEMATOLOGY Hgb 13.8 14.0 - 18.0 01/05/2013 [facility] HEMATOLOGY WBC X 10x3 7.9 3.7 - 10.4 01/05/2013 [facility] HEMATOLOGY Basophils 0.4 0.0 - 1.0 01/05/2013 Normal [facility] HEMATOLOGY Eosinophils 0.1 0.0 - 4.0 01/05/2013 Normal [facility] HEMATOLOGY Segs-Bands # 5.8 1.5 - 8.1 01/05/2013 Normal [facility] HEMATOLOGY Lymphocytes # 1.1 1.0 - 5.5 01/05/2013 [facility] HEMATOLOGY Basophils # 0.0 0.0 - 0.2 01/05/2013 [facility] HEMATOLOGY Eosinophils # 0.0 0.0 - 0.5 01/05/2013 Normal [facility] HEMATOLOGY Monocytes # 1.0 0.0 - 0.8 01/05/2013 [facility] HEMATOLOGY Monocytes 12.1 2.0 - 12.0 01/05/2013 [facility] HEMATOLOGY Segs 73.8 45.0 - 75.0 01/05/2013 Normal [facility] HEMATOLOGY Lymphocytes 13.6 20.0 - 40.0 01/05/2013 LOW [facility] CHEMISTRY CK-MB INDEX 0.6 0.0 - 2.5 01/04/2013 Normal [facility] CHEMISTRY Troponin-I 0.03 0.00 - 0.40 01/04/2013 Normal [facility] CHEMISTRY CK MB 1.8 0.5 - 3.6 01/04/2013 [facility] CHEMISTRY Total CK 293 12 - 191 01/04/2013 [facility] CHEMISTRY Magnesium Lvl 2.0 1.8 - 2.4 01/04/2013 Normal [facility] CHEMISTRY eGFR 65 01/04/2013 <sup>6</sup>Result Comment: The eGFR is calculated using the CKD-EPI formula. In most young, healthy individuals the eGFR will be >90 mL/min/1.73m2. The eGFR declines with age. An eGFR of 60-89 may be normal in some populations, particularly the elderly, for whom the CKD-EPI formula has not been extensively validated. Use of the eGFR is not recommended in the following populations:& lt;br/>
Individuals with unstable creatinine concentrations, including patients and those with serious co-morbid conditions.

Patients with extremes in muscle mass or diet.

The data above are obtained from the National Kidney Disease Education Program (NKDEP) which additionally recommends that when the eGFR is used in patients with extremes of body mass index for purposes of drug dosing, the eGFR should be multiplied by the estimated BMI. [facility] CHEMISTRY Globulin 3.1 2.0 - 4.0 01/04/2013 Normal [facility] CHEMISTRY A/G Ratio 1.2 0.7 - 1.6 01/04/2013 Normal [facility] CHEMISTRY ASPARTATE TRANSAMINASE 153 0 - 37 01/04/2013 [facility] CHEMISTRY AGAP 16.2 10.0 - 20.0 01/04/2013 Normal [facility] CHEMISTRY Chloride Lvl 104 95 - 109 01/04/2013 Normal [facility] CHEMISTRY B/C Ratio 15 6 - 25 01/04/2013 Normal [facility] CHEMISTRY Bili Total 1.7 0.2 - 1.3 01/04/2013 HI [facility] CHEMISTRY ALANINE AMINOTRANSFERASE 136 0 - 65 01/04/2013 HI [facility] CHEMISTRY Alk Phos 126 39 - 136 01/04/2013 Normal [facility] CHEMISTRY CO2 24 24 - 32 01/04/2013 Normal [facility] CHEMISTRY Total Protein 6.9 6.4 - 8.4 01/04/2013 Normal [facility] CHEMISTRY Calcium Lvl 8.4 8.5 - 10.5 01/04/2013 LOW [facility] CHEMISTRY Albumin Lvl 3.8 3.5 - 5.0 01/04/2013 Normal [facility] CHEMISTRY BUN 20 7 - 22 01/04/2013 Normal [facility] CHEMISTRY Sodium Lvl 140 135 - 145 01/04/2013 Normal [facility] CHEMISTRY Creatinine Lvl 1.3 0.5 - 1.4 01/04/2013 Normal [facility] CHEMISTRY Potassium Lvl 4.2 3.5 - 5.1 01/04/2013 Normal [facility] CHEMISTRY Glucose Lvl 115 70 - 99 01/04/2013 HI <sup>8</sup>Interpretive Data: Adult reference range values reflect the clinical guidelines
of the [employer] [employer]. [facility] CHEMISTRY Digoxin Lvl <0.1 0.8 - 2.0 01/04/2013 LOW [facility] CHEMISTRY BNP 2290 <=100 01/04/2013 HI <sup>9</sup>Interpretive Data: Elevated results are in line with increasing severity of
congestive heart failure. Minor elevations between 100 and 300
may be seen with Myocardial Ischemia, Sodium retaining drugs,
and compensated/treated heart failure. [facility] HEMATOLOGY Eosinophils # 0.0 0.0 - 0.5 01/04/2013 Normal [facility] HEMATOLOGY Segs-Bands # 7.2 1.5 - 8.1 01/04/2013 Normal [facility] HEMATOLOGY Monocytes # 0.8 0.0 - 0.8 01/04/2013 Normal [facility] HEMATOLOGY Basophils 0.1 0.0 - 1.0 01/04/2013 Normal [facility] HEMATOLOGY Lymphocytes # 0.8 1.0 - 5.5 01/04/2013 LOW [facility] HEMATOLOGY Monocytes 8.8 2.0 - 12.0 01/04/2013 Normal [facility] HEMATOLOGY Eosinophils 0.1 0.0 - 4.0 01/04/2013 Normal [facility] HEMATOLOGY Lymphocytes 9.1 20.0 - 40.0 01/04/2013 LOW [facility] HEMATOLOGY Segs 81.9 45.0 - 75.0 01/04/2013 [facility] HEMATOLOGY RBC X 10x6 5.04 4.70 - 6.10 01/04/2013 Normal [facility] HEMATOLOGY WBC X 10x3 8.8 3.7 - 10.4 01/04/2013 Normal [facility] HEMATOLOGY Hgb 14.7 14.0 - 18.0 01/04/2013 Normal [facility] HEMATOLOGY Hct 45.5 42.0 - 54.0 01/04/2013 Normal [facility] HEMATOLOGY MCV 90.3 80.0 - 94.0 01/04/2013 Normal [facility] HEMATOLOGY MCH 29.1 27.0 - 31.0 01/04/2013 Normal [facility] HEMATOLOGY MCHC 32.2 32.0 - 36.0 01/04/2013 Normal [facility] HEMATOLOGY RDW 15.2 11.5 - 14.5 01/04/2013 [facility] HEMATOLOGY MPV 8.7 7.4 - 10.4 01/04/2013 Normal [facility] HEMATOLOGY Platelet 266 133 - 450 01/04/2013 Normal [facility] BEDSIDE GLUCOSE TESTING Gluc POC Comment 1 Notified RN/MD 12/26/2012 NA [facility] BEDSIDE GLUCOSE TESTING Glucose POC 99 70 - 99 12/26/2012 Normal <sup>2</sup>Interpretive Data: Upper Reportable Limit: 200 mg/dL. [facility] INFECTIOUS DISEASES C difficile DNA Negative 1 (12/26/2012 09:50:00) Negative 12/26/2012 Normal <sup>1</sup>Interpretive Data: [employer]osigene Clostridium difficile assay utilizes loop-mediated isothermal DNA amplification (LAMP) technology to detect a 204 bp region of the tcdA gene within the PaLoc gene segment present in all known toxigenic C. difficile strains.

The assay utilizes FDA cleared IVD reagents. Performance characteristics have been verified by the [facility] within the [facility]. The [facility] is authorized under the Clinical Laboratory Improvement Amendment of 1988 (CLIA-88) to perform high complexity testing. [facility] PARASITOLOGY - SEROLOGY Cryptospor Ag Negative (12/26/2012 09:50:00) Negative 12/26/2012 Normal [facility] Microbiology Culture: Stool 12/26/2012 [facility] BEDSIDE GLUCOSE TESTING Glucose POC 98 70 - 99 12/26/2012 Normal <sup>3</sup>Interpretive Data: Upper Reportable Limit: 200 mg/dL. [facility] BEDSIDE GLUCOSE TESTING Glucose POC 96 70 - 99 12/26/2012 Normal <sup>4</sup>Interpretive Data: Upper Reportable Limit: 200 mg/dL. [facility] BEDSIDE GLUCOSE TESTING Gluc POC Comment 1 Notified RN/MD 12/25/2012 NA [facility] HEMATOLOGY RDW 15.5 11.5 - 14.5 12/25/2012 [facility] HEMATOLOGY MCV 90.9 80.0 - 94.0 12/25/2012 Normal [facility] HEMATOLOGY Hct 40.5 42.0 - 54.0 12/25/2012 LOW [facility] HEMATOLOGY MCHC 33.4 32.0 - 36.0 12/25/2012 Normal [facility] HEMATOLOGY MCH 30.3 27.0 - 31.0 12/25/2012 Normal [facility] HEMATOLOGY MPV 8.5 7.4 - 10.4 12/25/2012 Normal [facility] HEMATOLOGY Platelet 156 133 - 450 12/25/2012 Normal [facility] HEMATOLOGY Hgb 13.5 14.0 - 18.0 12/25/2012 LOW [facility] HEMATOLOGY RBC 4.46 4.70 - 6.10 12/25/2012 LOW [facility] HEMATOLOGY WBC 7.1 3.7 - 10.4 12/25/2012 Normal [facility] HEMATOLOGY Segs 79.7 45.0 - 75.0 12/25/2012 [facility] HEMATOLOGY Lymphocytes 11.9 20.0 - 40.0 12/25/2012 LOW [facility] HEMATOLOGY Monocytes 6.8 2.0 - 12.0 12/25/2012 Normal [facility] HEMATOLOGY Segs-Bands # 5.6 1.5 - 8.1 12/25/2012 Normal [facility] HEMATOLOGY Lymphocytes # 0.8 1.0 - 5.5 12/25/2012 LOW [facility] HEMATOLOGY Eosinophils # 0.1 0.0 - 0.5 12/25/2012 Normal [facility] HEMATOLOGY Monocytes # 0.5 0.0 - 0.8 12/25/2012 Normal [facility] HEMATOLOGY Eosinophils 1.2 0.0 - 4.0 12/25/2012 Normal [facility] HEMATOLOGY Basophils 0.4 0.0 - 1.0 12/25/2012 [facility] HEMATOLOGY Basophils # 0.0 0.0 - 0.2 12/25/2012 Normal [facility] CHEMISTRY A/G Ratio 1.5 0.7 - 1.6 12/25/2012 Normal [facility] CHEMISTRY AST 33 0 - 37 12/25/2012 [facility] CHEMISTRY ALT 63 0 - 65 12/25/2012 Normal [facility] CHEMISTRY Alk Phos 114 39 - 136 12/25/2012 Normal [facility] CHEMISTRY Bili Total 1.2 0.2 - 1.3 12/25/2012 [facility] CHEMISTRY Globulin 2.1 2.0 - 4.0 12/25/2012 Normal [facility] CHEMISTRY Total Protein 5.2 6.4 - 8.4 12/25/2012 LOW [facility] CHEMISTRY eGFR 71 12/25/2012 NA <sup>6</sup>Result Comment: The eGFR is calculated using the CKD-EPI formula. In most young, healthy individuals the eGFR will be >90 mL/min/1.73m2. The eGFR declines with age. An eGFR of 60-89 may be normal in some populations, particularly the elderly, for whom the CKD-EPI formula has not been extensively validated. Use of the eGFR is not recommended in the following populations:& lt;br/>
Individuals with unstable creatinine concentrations, including patients and those with serious co-morbid conditions.

Patients with extremes in muscle mass or diet.

The data above are obtained from the National Kidney Disease Education Program (NKDEP) which additionally recommends that when the eGFR is used in patients with extremes of body mass index for purposes of drug dosing, the eGFR should be multiplied by the estimated BMI. [facility] CHEMISTRY Chloride Lvl 106 95 - 109 12/25/2012 Normal [facility] CHEMISTRY Potassium Lvl 4.0 3.5 - 5.1 12/25/2012 Normal [facility] CHEMISTRY Calcium Lvl 7.6 8.5 - 10.5 12/25/2012 LOW [facility] CHEMISTRY CO2 28 24 - 32 12/25/2012 Normal [facility] CHEMISTRY Glucose Lvl 149 70 - 99 12/25/2012 HI <sup>8</sup>Interpretive Data: Adult reference range values reflect the clinical guidelines
of the [employer] [employer]. [facility] CHEMISTRY BUN 17 7 - 22 12/25/2012 Normal [facility] CHEMISTRY Sodium Lvl 142 135 - 145 12/25/2012 Normal [facility] CHEMISTRY Creatinine Lvl 1.2 0.5 - 1.4 12/25/2012 Normal [facility] CHEMISTRY B/C Ratio 14 6 - 25 12/25/2012 Normal [facility] CHEMISTRY Albumin Lvl 3.1 3.5 - 5.0 12/25/2012 LOW [facility] CHEMISTRY AGAP 12.0 10.0 - 20.0 12/25/2012 Normal [facility] CHEMISTRY CK MB 1.1 0.5 - 3.6 12/25/2012 Normal [facility] CHEMISTRY Troponin-I 0.02 0.00 - 0.40 12/25/2012 Normal [facility] CHEMISTRY Total CK 100 12 - 191 12/25/2012 Normal [facility] CHEMISTRY CK MB Index 1.1 0.0 - 2.5 12/25/2012 Normal [facility] CHEMISTRY Troponin-I 0.03 0.00 - 0.40 12/25/2012 Normal [facility] CHEMISTRY Total CK 223 12 - 191 12/25/2012 HI [facility] CHEMISTRY CK MB 2.1 0.5 - 3.6 12/25/2012 Normal [facility] CHEMISTRY CK MB Index 0.9 0.0 - 2.5 12/25/2012 Normal [facility] CHEMISTRY CK MB Index 0.8 0.0 - 2.5 12/24/2012 Normal [facility] CHEMISTRY CK MB 1.1 0.5 - 3.6 12/24/2012 Normal [facility] CHEMISTRY Troponin-I 0.04 0.00 - 0.40 12/24/2012 Normal [facility] CHEMISTRY Total CK 131 12 - 191 12/24/2012 Normal [facility] URINALYSIS UA Urobilinogen 2.0 0.1 - 1.0 12/24/2012 HI [facility] URINALYSIS UA Nitrite Negative (12/24/2012 10:45:02) Negative 12/24/2012 Normal [facility] URINALYSIS UA Protein >=300 mg/dL *ABN* (12/24/2012 10:45:02) Negative 12/24/2012 ABN [facility] URINALYSIS UA Ketones Trace *ABN* (12/24/2012 10:45:02) Negative 12/24/2012 ABN [facility] URINALYSIS UA Glucose Negative (12/24/2012 10:45:02) Negative 12/24/2012 Normal [facility] URINALYSIS UA Leuk Est Negative (12/24/2012 10:45:02) Negative 12/24/2012 Normal [facility] URINALYSIS UA Bili Moderate 5 *ABN* (12/24/2012 10:45:02) Negative 12/24/2012 ABN <sup>5</sup>Result Comment: Interpret positive bilirubin results with caution. Confirmatory testing not possible due to the unavailability of reagent. Correlation with serum chemistry results recommended. [facility] URINALYSIS UA Blood Trace *ABN* (12/24/2012 10:45:02) Negative 12/24/2012 ABN [facility] URINALYSIS UA pH 6.0 5.0 - 8.0 12/24/2012 Normal [facility] URINALYSIS UA Turbidity Slight Cloudy (12/24/2012 10:45:02) Clear 12/24/2012 Normal [facility] URINALYSIS UA Color [place] *ABN* (12/24/2012 10:45:02) Yellow 12/24/2012 ABN [facility] URINALYSIS UA Spec Grav >=1.030 *ABN* (12/24/2012 10:45:02) <=1.030 12/24/2012 ABN [facility] URINALYSIS UA Hyal Cast 0-2 (12/24/2012 10:45:02) 0 - 2 12/24/2012 Normal [facility] URINALYSIS UA Amorph Althea Occasional /HPF *ABN* (12/24/2012 10:45:02) None Seen 12/24/2012 ABN [facility] URINALYSIS UA Mucus Many /LPF *ABN* (12/24/2012 10:45:02) None Seen 12/24/2012 ABN [facility] URINALYSIS UA RBC 0-2 /HPF (12/24/2012 10:45:02) 0 - 2 12/24/2012 Normal [facility] URINALYSIS UA WBC 0-2 /HPF (12/24/2012 10:45:02) None Seen 12/24/2012 Normal [facility] URINALYSIS UA Bacteria Few /HPF (12/24/2012 10:45:02) None Seen 12/24/2012 Normal [facility] URINALYSIS UA Sq Epi Occasional /LPF (12/24/2012 10:45:02) Few 12/24/2012 Normal [facility] URINALYSIS UA Fine Gran 0-2 /LPF *ABN* (12/24/2012 10:45:02) None Seen 12/24/2012 ABN [facility] CHEMISTRY Lipase Lvl 76 73 - 393 12/24/2012 Normal [facility] CHEMISTRY Amylase Lvl 11 25 - 115 12/24/2012 LOW [facility] CHEMISTRY A/G Ratio 1.2 0.7 - 1.6 12/24/2012 Normal [facility] CHEMISTRY Globulin 3.0 2.0 - 4.0 12/24/2012 Normal [facility] CHEMISTRY B/C Ratio 13 6 - 25 12/24/2012 Normal [facility] CHEMISTRY AGAP 14.2 10.0 - 20.0 12/24/2012 Normal [facility] CHEMISTRY Calcium Lvl 8.3 8.5 - 10.5 12/24/2012 LOW [facility] CHEMISTRY eGFR 65 12/24/2012 NA <sup>7</sup>Result Comment: The eGFR is calculated using the CKD-EPI formula. In most young, healthy individuals the eGFR will be >90 mL/min/1.73m2. The eGFR declines with age. An eGFR of 60-89 may be normal in some populations, particularly the elderly, for whom the CKD-EPI formula has not been extensively validated. Use of the eGFR is not recommended in the following populations:& lt;br/>
Individuals with unstable creatinine concentrations, including patients and those with serious co-morbid conditions.

Patients with extremes in muscle mass or diet.

The data above are obtained from the National Kidney Disease Education Program (NKDEP) which additionally recommends that when the eGFR is used in patients with extremes of body mass index for purposes of drug dosing, the eGFR should be multiplied by the estimated BMI. [facility] CHEMISTRY Total Protein 6.7 6.4 - 8.4 12/24/2012 Normal [facility] CHEMISTRY Alk Phos 137 39 - 136 12/24/2012 [facility] CHEMISTRY ALT 78 0 - 65 12/24/2012 [facility] CHEMISTRY Albumin Lvl 3.7 3.5 - 5.0 12/24/2012 Normal [facility] CHEMISTRY Bili Total 1.9 0.2 - 1.3 12/24/2012 [facility] CHEMISTRY AST 69 0 - 37 12/24/2012 [facility] CHEMISTRY Sodium Lvl 141 135 - 145 12/24/2012 Normal [facility] CHEMISTRY Potassium Lvl 4.2 3.5 - 5.1 12/24/2012 Normal [facility] CHEMISTRY CO2 27 24 - 32 12/24/2012 Normal [facility] CHEMISTRY Chloride Lvl 104 95 - 109 12/24/2012 Normal [facility] CHEMISTRY BUN 17 7 - 22 12/24/2012 Normal [facility] CHEMISTRY Creatinine Lvl 1.3 0.5 - 1.4 12/24/2012 Normal [facility] CHEMISTRY Glucose Lvl 137 70 - 99 12/24/2012 [place] <sup>9</sup>Interpretive Data: Adult reference range values reflect the clinical guidelines
of the [employer] [employer]. [facility] HEMATOLOGY MPV 8.8 7.4 - 10.4 12/24/2012 Normal [facility] HEMATOLOGY RDW 15.6 11.5 - 14.5 12/24/2012 [facility] HEMATOLOGY MCHC 33.3 32.0 - 36.0 12/24/2012 Normal [facility] HEMATOLOGY MCH 30.5 27.0 - 31.0 12/24/2012 Normal [facility] HEMATOLOGY Platelet 215 133 - 450 12/24/2012 Normal [facility] HEMATOLOGY MCV 91.7 80.0 - 94.0 12/24/2012 Normal [facility] HEMATOLOGY RBC 4.80 4.70 - 6.10 12/24/2012 Normal [facility] HEMATOLOGY Hct 44.0 42.0 - 54.0 12/24/2012 Normal [facility] HEMATOLOGY Hgb 14.6 14.0 - 18.0 12/24/2012 Normal [facility] HEMATOLOGY WBC 8.9 3.7 - 10.4 12/24/2012 Normal [facility] HEMATOLOGY Eosinophils # 0.0 0.0 - 0.5 12/24/2012 Normal [facility] HEMATOLOGY Monocytes # 0.7 0.0 - 0.8 12/24/2012 Normal [facility] HEMATOLOGY Basophils # 0.0 0.0 - 0.2 12/24/2012 Normal [facility] HEMATOLOGY Lymphocytes # 1.0 1.0 - 5.5 12/24/2012 Normal [facility] HEMATOLOGY Segs-Bands # 7.2 1.5 - 8.1 12/24/2012 Normal [facility] HEMATOLOGY Segs 81.1 45.0 - 75.0 12/24/2012 HI [facility] HEMATOLOGY Lymphocytes 10.8 20.0 - 40.0 12/24/2012 LOW [facility] HEMATOLOGY Eosinophils 0.2 0.0 - 4.0 12/24/2012 Normal [facility] HEMATOLOGY Monocytes 7.8 2.0 - 12.0 12/24/2012 Normal [facility] HEMATOLOGY Basophils 0.1 0.0 - 1.0 12/24/2012 Normal [facility] BEDSIDE GLUCOSE TESTING Gluc POC Lifscn 186 70 - 99 10/20/2012 HI <sup>1</sup>Interpretive Data: Upper Reportable Limit: 200 mg/dL. [facility] BEDSIDE GLUCOSE TESTING Comment1 Notify RN/ 10/20/2012 NA [facility] BEDSIDE GLUCOSE TESTING Comment1 Notify RN/ 10/20/2012 NA [facility] BEDSIDE GLUCOSE TESTING Gluc POC Lifscn 229 70 - 99 10/20/2012 HI <sup>2</sup>Interpretive Data: Upper Reportable Limit: 200 mg/dL. [facility] BEDSIDE GLUCOSE TESTING Comment1 Verify w/Lab 10/20/2012 NA [facility] BEDSIDE GLUCOSE TESTING Gluc POC Lifscn 163 70 - 99 10/20/2012 [place] <sup>3</sup>Interpretive Data: Upper Reportable Limit: 200 mg/dL. [facility] CHEMISTRY LDL 93 <=99 10/20/2012 Normal [facility] CHEMISTRY HDL 21 >=61 10/20/2012 LOW [facility] CHEMISTRY Trig 210 <=149 10/20/2012 HI [facility] CHEMISTRY Chol 156 <=199 10/20/2012 Normal [facility] CHEMISTRY CHD Risk 7.43 4.00 - 7.30 10/20/2012 HI [facility] CHEMISTRY BNP 466 <=100 10/20/2012 HI <sup>10</sup>Interpretive Data: Elevated results are in line with increasing severity of
congestive heart failure. Minor elevations between 100 and 300
may be seen with Myocardial Ischemia, Sodium retaining drugs,
and compensated/treated heart failure. [facility] CHEMISTRY Digoxin Lvl 0.2 0.8 - 2.0 10/20/2012 LOW [facility] CHEMISTRY eGFR 65 10/20/2012 NA <sup>4</sup>Result Comment: The eGFR is calculated using the CKD-EPI formula. In most young, healthy individuals the eGFR will be >90 mL/min/1.73m2. The eGFR declines with age. An eGFR of 60-89 may be normal in some populations, particularly the elderly, for whom the CKD-EPI formula has not been extensively validated. Use of the eGFR is not recommended in the following populations:& lt;br/>
Individuals with unstable creatinine concentrations, including patients and those with serious co-morbid conditions.

Patients with extremes in muscle mass or diet.

The data above are obtained from the National Kidney Disease Education Program (NKDEP) which additionally recommends that when the eGFR is used in patients with extremes of body mass index for purposes of drug dosing, the eGFR should be multiplied by the estimated BMI. [facility] CHEMISTRY Glucose Lvl 153 70 - 99 10/20/2012 HI <sup>7</sup>Interpretive Data: Adult reference range values reflect the clinical guidelines
of the [employer] [employer]. [facility] CHEMISTRY Potassium Lvl 3.4 3.5 - 5.1 10/20/2012 LOW [facility] CHEMISTRY Sodium Lvl 136 135 - 145 10/20/2012 Normal [facility] CHEMISTRY Creatinine Lvl 1.3 0.5 - 1.4 10/20/2012 Normal [facility] CHEMISTRY BUN 22 7 - 22 10/20/2012 Normal [facility] CHEMISTRY CO2 32 24 - 32 10/20/2012 Normal [facility] CHEMISTRY Chloride Lvl 93 95 - 109 10/20/2012 LOW [facility] CHEMISTRY Calcium Lvl 8.6 8.5 - 10.5 10/20/2012 Normal [facility] CHEMISTRY AGAP 14.4 10.0 - 20.0 10/20/2012 Normal [facility] CHEMISTRY Total CK 81 12 - 191 10/20/2012 Normal [facility] HEMATOLOGY Basophils # 0.0 0.0 - 0.2 10/20/2012 Normal [facility] HEMATOLOGY Segs 74.8 45.0 - 75.0 10/20/2012 Normal [facility] HEMATOLOGY Basophils 0.2 0.0 - 1.0 10/20/2012 Normal [facility] HEMATOLOGY Segs-Bands # 5.5 1.5 - 8.1 10/20/2012 Normal [facility] HEMATOLOGY Eosinophils # 0.2 0.0 - 0.5 10/20/2012 Normal [facility] HEMATOLOGY Monocytes # 0.5 0.0 - 0.8 10/20/2012 Normal [facility] HEMATOLOGY Lymphocytes # 1.2 1.0 - 5.5 10/20/2012 Normal [facility] HEMATOLOGY Monocytes 6.1 2.0 - 12.0 10/20/2012 Normal [facility] HEMATOLOGY Lymphocytes 16.5 20.0 - 40.0 10/20/2012 LOW [facility] HEMATOLOGY Eosinophils 2.4 0.0 - 4.0 10/20/2012 Normal [facility] HEMATOLOGY MPV 8.8 7.4 - 10.4 10/20/2012 Normal [facility] HEMATOLOGY Platelet 176 133 - 450 10/20/2012 Normal [facility] HEMATOLOGY RDW 14.5 11.5 - 14.5 10/20/2012 Normal [facility] HEMATOLOGY MCHC 34.2 32.0 - 36.0 10/20/2012 Normal [facility] HEMATOLOGY RBC 5.15 4.70 - 6.10 10/20/2012 Normal [facility] HEMATOLOGY Hgb 15.6 14.0 - 18.0 10/20/2012 Normal [facility] HEMATOLOGY WBC 7.3 3.7 - 10.4 10/20/2012 Normal [facility] HEMATOLOGY MCV 88.7 80.0 - 94.0 10/20/2012 Normal [facility] HEMATOLOGY MCH 30.3 27.0 - 31.0 10/20/2012 Normal [facility] HEMATOLOGY Hct 45.7 42.0 - 54.0 10/20/2012 Normal [facility] CHEMISTRY Hgb A1C 9.8 <=5.6 10/19/2012 HI [facility] CHEMISTRY BNP 696 <=100 10/19/2012 HI <sup>11</sup>Interpretive Data: Elevated results are in line with increasing severity of
congestive heart failure. Minor elevations between 100 and 300
may be seen with Myocardial Ischemia, Sodium retaining drugs,
and compensated/treated heart failure. [facility] CHEMISTRY eGFR 71 10/19/2012 NA <sup>5</sup>Result Comment: The eGFR is calculated using the CKD-EPI formula. In most young, healthy individuals the eGFR will be >90 mL/min/1.73m2. The eGFR declines with age. An eGFR of 60-89 may be normal in some populations, particularly the elderly, for whom the CKD-EPI formula has not been extensively validated. Use of the eGFR is not recommended in the following populations:& lt;br/>
Individuals with unstable creatinine concentrations, including patients and those with serious co-morbid conditions.

Patients with extremes in muscle mass or diet.

The data above are obtained from the National Kidney Disease Education Program (NKDEP) which additionally recommends that when the eGFR is used in patients with extremes of body mass index for purposes of drug dosing, the eGFR should be multiplied by the estimated BMI. [facility] CHEMISTRY AGAP 14.7 10.0 - 20.0 10/19/2012 Normal [facility] CHEMISTRY CO2 28 24 - 32 10/19/2012 Normal [facility] CHEMISTRY Calcium Lvl 8.2 8.5 - 10.5 10/19/2012 LOW [facility] CHEMISTRY BUN 23 7 - 22 10/19/2012 HI [facility] CHEMISTRY Glucose Lvl 283 70 - 99 10/19/2012 HI <sup>8</sup>Interpretive Data: Adult reference range values reflect the clinical guidelines
of the [employer] [employer]. [facility] CHEMISTRY Chloride Lvl 98 95 - 109 10/19/2012 Normal [facility] CHEMISTRY Sodium Lvl 137 135 - 145 10/19/2012 Normal [facility] CHEMISTRY Potassium Lvl 3.7 3.5 - 5.1 10/19/2012 Normal [facility] CHEMISTRY Creatinine Lvl 1.2 0.5 - 1.4 10/19/2012 Normal [facility] CHEMISTRY eGFR 71 10/19/2012 NA <sup>6</sup>Result Comment: The eGFR is calculated using the CKD-EPI formula. In most young, healthy individuals the eGFR will be >90 mL/min/1.73m2. The eGFR declines with age. An eGFR of 60-89 may be normal in some populations, particularly the elderly, for whom the CKD-EPI formula has not been extensively validated. Use of the eGFR is not recommended in the following populations:& lt;br/>
Individuals with unstable creatinine concentrations, including patients and those with serious co-morbid conditions.

Patients with extremes in muscle mass or diet.

The data above are obtained from the National Kidney Disease Education Program (NKDEP) which additionally recommends that when the eGFR is used in patients with extremes of body mass index for purposes of drug dosing, the eGFR should be multiplied by the estimated BMI. [facility] CHEMISTRY Potassium Lvl 3.4 3.5 - 5.1 10/19/2012 LOW [facility] CHEMISTRY Sodium Lvl 139 135 - 145 10/19/2012 Normal [facility] CHEMISTRY Chloride Lvl 100 95 - 109 10/19/2012 Normal [facility] CHEMISTRY Calcium Lvl 7.9 8.5 - 10.5 10/19/2012 LOW [facility] CHEMISTRY CO2 31 24 - 32 10/19/2012 Normal [facility] CHEMISTRY Glucose Lvl 160 70 - 99 10/19/2012 HI <sup>9</sup>Interpretive Data: Adult reference range values reflect the clinical guidelines
of the [employer] [employer]. [facility] CHEMISTRY Creatinine Lvl 1.2 0.5 - 1.4 10/19/2012 Normal [facility] CHEMISTRY BUN 23 7 - 22 10/19/2012 HI [facility] CHEMISTRY AGAP 11.4 10.0 - 20.0 10/19/2012 Normal [facility] CHEMISTRY BNP 889 <=100 10/19/2012 HI <sup>12</sup>Interpretive Data: Elevated results are in line with increasing severity of
congestive heart failure. Minor elevations between 100 and 300
may be seen with Myocardial Ischemia, Sodium retaining drugs,
and compensated/treated heart failure. [facility] HEMATOLOGY Eosinophils # 0.1 0.0 - 0.5 10/19/2012 Normal [facility] HEMATOLOGY Basophils # 0.0 0.0 - 0.2 10/19/2012 Normal [facility] HEMATOLOGY Lymphocytes # 1.3 1.0 - 5.5 10/19/2012 Normal [facility] HEMATOLOGY Monocytes # 0.3 0.0 - 0.8 10/19/2012 Normal [facility] HEMATOLOGY Basophils 0.4 0.0 - 1.0 10/19/2012 Normal [facility] HEMATOLOGY Eosinophils 2.3 0.0 - 4.0 10/19/2012 Normal [facility] HEMATOLOGY Lymphocytes 20.6 20.0 - 40.0 10/19/2012 Normal [facility] HEMATOLOGY Segs 72.2 45.0 - 75.0 10/19/2012 Normal [facility] HEMATOLOGY Segs-Bands # 4.6 1.5 - 8.1 10/19/2012 Normal [facility] HEMATOLOGY Monocytes 4.5 2.0 - 12.0 10/19/2012 Normal [facility] HEMATOLOGY RDW 14.1 11.5 - 14.5 10/19/2012 Normal [facility] HEMATOLOGY MCHC 33.8 32.0 - 36.0 10/19/2012 Normal [facility] HEMATOLOGY MCV 89.3 80.0 - 94.0 10/19/2012 Normal [facility] HEMATOLOGY MCH 30.2 27.0 - 31.0 10/19/2012 Normal [facility] HEMATOLOGY MPV 8.5 7.4 - 10.4 10/19/2012 Normal [facility] HEMATOLOGY Platelet 169 133 - 450 10/19/2012 Normal [facility] HEMATOLOGY RBC 4.69 4.70 - 6.10 10/19/2012 LOW [facility] HEMATOLOGY WBC 6.3 3.7 - 10.4 10/19/2012 Normal [facility] HEMATOLOGY Hgb 14.2 14.0 - 18.0 10/19/2012 Normal [facility] HEMATOLOGY Hct 41.9 42.0 - 54.0 10/19/2012 LOW [facility] CHEMISTRY CK MB 1.0 0.5 - 3.6 10/18/2012 Normal [facility] CHEMISTRY CK MB Index 1.0 0.0 - 2.5 10/18/2012 Normal [facility] CHEMISTRY Troponin-I 0.03 0.00 - 0.40 10/18/2012 Normal [facility] CHEMISTRY Total CK 102 12 - 191 10/18/2012 Normal [facility] HEMATOLOGY Basophils # 0.0 0.0 - 0.2 10/18/2012 Normal [facility] HEMATOLOGY Eosinophils # 0.0 0.0 - 0.5 10/18/2012 Normal [facility] HEMATOLOGY Monocytes # 0.3 0.0 - 0.8 10/18/2012 Normal [facility] HEMATOLOGY Lymphocytes 17.5 20.0 - 40.0 10/18/2012 LOW [facility] HEMATOLOGY Segs 77.1 45.0 - 75.0 10/18/2012 HI [facility] HEMATOLOGY Lymphocytes # 1.1 1.0 - 5.5 10/18/2012 Normal [facility] HEMATOLOGY Segs-Bands # 4.9 1.5 - 8.1 10/18/2012 Normal [facility] HEMATOLOGY Basophils 0.4 0.0 - 1.0 10/18/2012 Normal [facility] HEMATOLOGY Eosinophils 0.5 0.0 - 4.0 10/18/2012 Normal [facility] HEMATOLOGY Monocytes 4.5 2.0 - 12.0 10/18/2012 Normal [facility] HEMATOLOGY MPV 8.9 7.4 - 10.4 10/18/2012 Normal [facility] HEMATOLOGY Platelet 189 133 - 450 10/18/2012 Normal [facility] HEMATOLOGY MCV 90.0 80.0 - 94.0 10/18/2012 Normal [facility] HEMATOLOGY Hct 42.5 42.0 - 54.0 10/18/2012 Normal [facility] HEMATOLOGY Hgb 14.3 14.0 - 18.0 10/18/2012 Normal [facility] HEMATOLOGY RBC 4.73 4.70 - 6.10 10/18/2012 Normal [facility] HEMATOLOGY RDW 14.0 11.5 - 14.5 10/18/2012 Normal [facility] HEMATOLOGY MCHC 33.5 32.0 - 36.0 10/18/2012 Normal [facility] HEMATOLOGY MCH 30.2 27.0 - 31.0 10/18/2012 Normal [facility] HEMATOLOGY WBC 6.4 3.7 - 10.4 10/18/2012 Normal [facility] CHEMISTRY Lipase Lvl 134 73 - 393 10/18/2012 Normal [facility] CHEMISTRY A/G Ratio 1.2 0.7 - 1.6 10/18/2012 Normal [facility] CHEMISTRY Globulin 3.1 2.0 - 4.0 10/18/2012 Normal [facility] CHEMISTRY B/C Ratio 18 6 - 25 10/18/2012 Normal [facility] CHEMISTRY ALT 27 0 - 65 10/18/2012 Normal [facility] CHEMISTRY Albumin Lvl 3.8 3.5 - 5.0 10/18/2012 Normal [facility] CHEMISTRY AST 11 0 - 37 10/18/2012 Normal [facility] CHEMISTRY Bili Total 0.9 0.2 - 1.3 10/18/2012 Normal [facility] CHEMISTRY Alk Phos 128 39 - 136 10/18/2012 Normal [facility] CHEMISTRY Total Protein 6.9 6.4 - 8.4 10/18/2012 Normal [facility] CHEMISTRY Troponin-I 0.03 0.00 - 0.40 10/18/2012 Normal [facility] HEMATOLOGY PT 15.5 12.0 - 14.7 10/18/2012 HI [facility] HEMATOLOGY INR 1.21 0.85 - 1.17 10/18/2012 HI <sup>13</sup>Interpretive Data: RECOMMENDED RANGES FOR PROTIME INR:
2.0-3.0 for most medical and surgical thromboembolic states.
2.5-3.5 for artificial heart valves and recurrent embolism.

INR SHOULD BE USED ONLY FOR PATIENTS ON STABLE ANTICOAGULANT THERAPY. [facility] HEMATOLOGY PTT 28.5 22.9 - 35.8 10/18/2012 Normal <sup>14</sup>Interpretive Data: Heparin Therapeutic Range: 57 - 92 Seconds [facility] CHEMISTRY A/G Ratio 1.0 0.7 - 1.6 12/11/2011 Normal [facility] CHEMISTRY Globulin 3.9 2.0 - 4.0 12/11/2011 Normal [facility] CHEMISTRY B/C Ratio 16 6 - 25 12/11/2011 Normal [facility] CHEMISTRY AGAP 14.3 10.0 - 20.0 12/11/2011 Normal [facility] CHEMISTRY Alk Phos 198 39 - 136 12/11/2011 [facility] CHEMISTRY AST 38 0 - 37 12/11/2011 [facility] CHEMISTRY Bili Total 1.5 0.2 - 1.3 12/11/2011 [facility] CHEMISTRY ALT 128 0 - 65 12/11/2011 [facility] CHEMISTRY Calcium Lvl 8.9 8.5 - 10.5 12/11/2011 Normal [facility] CHEMISTRY CO2 29 24 - 32 12/11/2011 Normal [facility] CHEMISTRY Albumin Lvl 4.0 3.5 - 5.0 12/11/2011 Normal [facility] CHEMISTRY Total Protein 7.9 6.4 - 8.4 12/11/2011 Normal [facility] CHEMISTRY Chloride Lvl 96 95 - 109 12/11/2011 Normal [facility] CHEMISTRY Creatinine Lvl 1.4 0.5 - 1.4 12/11/2011 Normal [facility] CHEMISTRY BUN 23 7 - 22 12/11/2011 [facility] CHEMISTRY Potassium Lvl 4.3 3.5 - 5.1 12/11/2011 Normal [facility] CHEMISTRY Sodium Lvl 135 135 - 145 12/11/2011 Normal [facility] CHEMISTRY Glucose Lvl 128 70 - 99 12/11/2011 [place] <sup>4</sup>Interpretive Data: Adult reference range values reflect the clinical guidelines
of the [employer] [employer]. [facility] CHEMISTRY Magnesium Lvl 2.2 1.8 - 2.4 12/10/2011 Normal [facility] CHEMISTRY eGFR >60 12/10/2011 NA <sup>3</sup>Result Comment: Expected eGFR for >20 yr. age group: >=60 ml/min/1.73 sq m

The eGFR calculation is not valid in or for

persons < 18 years of age.

From National Kid[employer] Disease Education Program (NKDEP) [facility] CHEMISTRY AST 43 0 - 37 12/10/2011 [facility] CHEMISTRY Alk Phos 146 39 - 136 12/10/2011 [facility] CHEMISTRY Bili Total 1.1 0.2 - 1.3 12/10/2011 Normal [facility] CHEMISTRY ALT 136 0 - 65 12/10/2011 [facility] CHEMISTRY A/G Ratio 0.9 0.7 - 1.6 12/10/2011 Normal [facility] CHEMISTRY Total Protein 6.7 6.4 - 8.4 12/10/2011 Normal [facility] CHEMISTRY B/C Ratio 16 6 - 25 12/10/2011 Normal [facility] CHEMISTRY Calcium Lvl 7.8 8.5 - 10.5 12/10/2011 LOW [facility] CHEMISTRY Globulin 3.5 2.0 - 4.0 12/10/2011 Normal [facility] CHEMISTRY Albumin Lvl 3.2 3.5 - 5.0 12/10/2011 LOW [facility] CHEMISTRY Sodium Lvl 139 135 - 145 12/10/2011 Normal [facility] CHEMISTRY BUN 19 7 - 22 12/10/2011 Normal [facility] CHEMISTRY Glucose Lvl 109 70 - 99 12/10/2011 HI <sup>5</sup>Interpretive Data: Adult reference range values reflect the clinical guidelines
of the [employer]. [facility] CHEMISTRY Creatinine Lvl 1.2 0.5 - 1.4 12/10/2011 Normal [facility] CHEMISTRY Potassium Lvl 3.7 3.5 - 5.1 12/10/2011 Normal [facility] CHEMISTRY Chloride Lvl 99 95 - 109 12/10/2011 Normal [facility] CHEMISTRY AGAP 9.7 10.0 - 20.0 12/10/2011 LOW [facility] CHEMISTRY CO2 34 24 - 32 12/10/2011 [facility] HEMATOLOGY Monocytes 14.0 2.0 - 12.0 12/10/2011 [facility] HEMATOLOGY Lymphocytes # 1.0 1.0 - 5.5 12/10/2011 Normal [facility] HEMATOLOGY Segs-Bands # 5.3 1.5 - 8.1 12/10/2011 Normal [facility] HEMATOLOGY Basophils 0.2 0.0 - 1.0 12/10/2011 Normal [facility] HEMATOLOGY Eosinophils 2.9 0.0 - 4.0 12/10/2011 Normal [facility] HEMATOLOGY Basophils # 0.0 0.0 - 0.2 12/10/2011 Normal [facility] HEMATOLOGY Eosinophils # 0.2 0.0 - 0.5 12/10/2011 Normal [facility] HEMATOLOGY Monocytes # 1.1 0.0 - 0.8 12/10/2011 HI [facility] HEMATOLOGY Lymphocytes 12.6 20.0 - 40.0 12/10/2011 LOW [facility] HEMATOLOGY Segs 70.3 45.0 - 75.0 12/10/2011 Normal [facility] HEMATOLOGY MCV 90.6 80.0 - 94.0 12/10/2011 Normal [facility] HEMATOLOGY Hct 45.9 42.0 - 54.0 12/10/2011 Normal [facility] HEMATOLOGY MCHC 33.6 32.0 - 36.0 12/10/2011 Normal [facility] HEMATOLOGY MCH 30.5 27.0 - 31.0 12/10/2011 Normal [facility] HEMATOLOGY RBC 5.07 4.70 - 6.10 12/10/2011 Normal [facility] HEMATOLOGY Hgb 15.4 14.0 - 18.0 12/10/2011 Normal [facility] HEMATOLOGY MPV 9.6 7.4 - 10.4 12/10/2011 Normal [facility] HEMATOLOGY Platelet 200 133 - 450 12/10/2011 Normal [facility] HEMATOLOGY RDW 14.7 11.5 - 14.5 12/10/2011 [facility] HEMATOLOGY WBC 7.6 3.7 - 10.4 12/10/2011 Normal [facility] CHEMISTRY AGAP 12.4 10.0 - 20.0 12/09/2011 Normal [facility] CHEMISTRY Calcium Lvl 7.3 8.5 - 10.5 12/09/2011 LOW [facility] CHEMISTRY Sodium Lvl 139 135 - 145 12/09/2011 Normal [facility] CHEMISTRY Creatinine Lvl 1.2 0.5 - 1.4 12/09/2011 Normal [facility] CHEMISTRY CO2 30 24 - 32 12/09/2011 Normal [facility] CHEMISTRY Potassium Lvl 3.4 3.5 - 5.1 12/09/2011 LOW [facility] CHEMISTRY Chloride Lvl 100 95 - 109 12/09/2011 Normal [facility] CHEMISTRY Glucose Lvl 157 70 - 99 12/09/2011 HI <sup>6</sup>Interpretive Data: Adult reference range values reflect the clinical guidelines
of the [place] [employer]. [facility] CHEMISTRY BUN 17 7 - 22 12/09/2011 Normal [facility] CHEMISTRY A/G Ratio 1.3 0.7 - 1.6 12/09/2011 Normal [facility] CHEMISTRY Bili Indirect 0.6 0.0 - 1.0 12/09/2011 Normal [facility] CHEMISTRY Globulin 2.7 2.0 - 4.0 12/09/2011 Normal [facility] CHEMISTRY Bili Direct 0.5 0.0 - 0.3 12/09/2011 [facility] CHEMISTRY AST 48 0 - 37 12/09/2011 [facility] CHEMISTRY ALT 184 0 - 65 12/09/2011 [facility] CHEMISTRY Alk Phos 150 39 - 136 12/09/2011 [facility] CHEMISTRY Bili Total 1.1 0.2 - 1.3 12/09/2011 Normal [facility] CHEMISTRY Total Protein 6.1 6.4 - 8.4 12/09/2011 LOW [facility] CHEMISTRY Albumin Lvl 3.4 3.5 - 5.0 12/09/2011 LOW [facility] CHEMISTRY Hgb A1C 6.6 12/09/2011 NA <sup>8</sup>Interpretive Data: HbA1C% eAG(mg/dL) Interpretation
6.0 126 Very good control
6.5 140 Very good control
7.0 154 Good Control
7.5 169 Good Control
8.0 183 Marginal Control, take action to lower
8.5 197 Marginal Control, take action to lower
9.0 212 Poor Control, take action to lower
9.5 226 Poor Control, take action to lower
10.0 240 Poor Control, take action to lower [facility] HEMATOLOGY Eosinophils 2.0 0.0 - 4.0 12/09/2011 Normal [facility] HEMATOLOGY Segs-Bands # 6.2 1.5 - 8.1 12/09/2011 Normal [facility] HEMATOLOGY Eosinophils # 0.2 0.0 - 0.5 12/09/2011 Normal [facility] HEMATOLOGY Monocytes 9.9 2.0 - 12.0 12/09/2011 Normal [facility] HEMATOLOGY Basophils 0.2 0.0 - 1.0 12/09/2011 Normal [facility] HEMATOLOGY Lymphocytes 13.9 20.0 - 40.0 12/09/2011 LOW [facility] HEMATOLOGY Monocytes # 0.8 0.0 - 0.8 12/09/2011 Normal [facility] HEMATOLOGY Basophils # 0.0 0.0 - 0.2 12/09/2011 Normal [facility] HEMATOLOGY Lymphocytes # 1.2 1.0 - 5.5 12/09/2011 Normal [facility] HEMATOLOGY Segs 74.0 45.0 - 75.0 12/09/2011 Normal [facility] HEMATOLOGY MCHC 32.5 32.0 - 36.0 12/09/2011 Normal [facility] HEMATOLOGY MPV 9.1 7.4 - 10.4 12/09/2011 Normal [facility] HEMATOLOGY Platelet 201 133 - 450 12/09/2011 Normal [facility] HEMATOLOGY RDW 15.0 11.5 - 14.5 12/09/2011 HI [facility] HEMATOLOGY WBC 8.4 3.7 - 10.4 12/09/2011 Normal [facility] HEMATOLOGY MCH 29.9 27.0 - 31.0 12/09/2011 Normal [facility] HEMATOLOGY RBC 4.83 4.70 - 6.10 12/09/2011 Normal [facility] HEMATOLOGY MCV 92.1 80.0 - 94.0 12/09/2011 Normal [facility] HEMATOLOGY Hct 44.5 42.0 - 54.0 12/09/2011 Normal [facility] HEMATOLOGY Hgb 14.4 14.0 - 18.0 12/09/2011 Normal [facility] BEDSIDE GLUCOSE TESTING Gluc POC Lifscn 159 70 - 99 12/08/2011 HI <sup>1</sup>Interpretive Data: Upper Reportable Limit: 200 mg/dL. [facility] BEDSIDE GLUCOSE TESTING Comment1 Notify BRENDON/ 12/08/2011 NA [facility] BEDSIDE GLUCOSE TESTING Gluc POC Lifscn 131 70 - 99 12/08/2011 HI <sup>2</sup>Interpretive Data: Upper Reportable Limit: 200 mg/dL. [facility] BEDSIDE GLUCOSE TESTING Comment1 Ashli RN/ 12/08/2011 NA [facility] CHEMISTRY Total CK 433 12 - 191 12/08/2011 [facility] CHEMISTRY Troponin-I 0.03 0.00 - 0.40 12/08/2011 Normal [facility] HEMATOLOGY Platelet 206 133 - 450 12/08/2011 Normal [facility] HEMATOLOGY MCHC 32.4 32.0 - 36.0 12/08/2011 Normal [facility] HEMATOLOGY MCH 30.1 27.0 - 31.0 12/08/2011 Normal [facility] HEMATOLOGY MPV 9.1 7.4 - 10.4 12/08/2011 Normal [facility] HEMATOLOGY MCV 93.1 80.0 - 94.0 12/08/2011 Normal [facility] HEMATOLOGY RDW 15.2 11.5 - 14.5 12/08/2011 [facility] HEMATOLOGY WBC 9.2 3.7 - 10.4 12/08/2011 Normal [facility] HEMATOLOGY RBC 4.74 4.70 - 6.10 12/08/2011 Normal [facility] HEMATOLOGY Hct 44.1 42.0 - 54.0 12/08/2011 Normal [facility] HEMATOLOGY Hgb 14.3 14.0 - 18.0 12/08/2011 Normal [facility] HEMATOLOGY Eosinophils # 0.1 0.0 - 0.5 12/08/2011 Normal [facility] HEMATOLOGY Monocytes # 0.8 0.0 - 0.8 12/08/2011 Normal [facility] HEMATOLOGY Lymphocytes # 1.2 1.0 - 5.5 12/08/2011 Normal [facility] HEMATOLOGY Monocytes 8.4 2.0 - 12.0 12/08/2011 Normal [facility] HEMATOLOGY Lymphocytes 12.7 20.0 - 40.0 12/08/2011 LOW [facility] HEMATOLOGY Segs-Bands # 7.0 1.5 - 8.1 12/08/2011 Normal [facility] HEMATOLOGY Eosinophils 1.1 0.0 - 4.0 12/08/2011 Normal [facility] HEMATOLOGY Basophils 1.1 0.0 - 1.0 12/08/2011 HI [facility] HEMATOLOGY Segs 76.7 45.0 - 75.0 12/08/2011 [facility] HEMATOLOGY Basophils # 0.1 0.0 - 0.2 12/08/2011 Normal [facility] CHEMISTRY LDL 75 0 - 129 12/08/2011 Normal [facility] CHEMISTRY Trig 88 0 - 200 12/08/2011 Normal [facility] CHEMISTRY CHD Risk 12.62 4.00 - 7.30 12/08/2011 [facility] CHEMISTRY HDL 8 >=35 12/08/2011 LOW [facility] CHEMISTRY Chol 101 120 - 200 12/08/2011 LOW [facility] CHEMISTRY Total CK 458 12 - 191 12/08/2011 [facility] CHEMISTRY Troponin-I 0.03 0.00 - 0.40 12/08/2011 Normal [facility] CHEMISTRY CK MB Index 0.4 0.0 - 2.5 12/08/2011 Normal [facility] CHEMISTRY CK MB 1.7 0.5 - 3.6 12/08/2011 Normal [facility] URINALYSIS UA Bacteria Occasional /HPF (12/07/2011 23:45:00) None Seen 12/08/2011 Normal [facility] URINALYSIS UA Amorph Althea Occasional /HPF *ABN* (12/07/2011 23:45:00) None Seen 12/08/2011 ABN [facility] URINALYSIS UA Mucus Few /LPF (12/07/2011 23:45:00) None Seen 12/08/2011 Normal [facility] URINALYSIS UA Sq Epi Rare /LPF (12/07/2011 23:45:00) Few 12/08/2011 Normal [facility] URINALYSIS UA WBC 0-2 /HPF (12/07/2011 23:45:00) None Seen 12/08/2011 Normal [facility] URINALYSIS UA RBC 0-2 /HPF (12/07/2011 23:45:00) 0 - 2 12/08/2011 Normal [facility] URINALYSIS UA Nitrite Negative (12/07/2011 23:45:00) Negative 12/08/2011 Normal [facility] URINALYSIS UA Urobilinogen 4.0 0.1 - 1.0 12/08/2011 [facility] URINALYSIS UA Leuk Est Negative (12/07/2011 23:45:00) Negative 12/08/2011 Normal [facility] URINALYSIS UA Blood Small *ABN* (12/07/2011 23:45:00) Negative 12/08/2011 ABN [facility] URINALYSIS UA Bili Negative *NA* (12/07/2011 23:45:00) Negative 12/08/2011 NA [facility] URINALYSIS UA Protein 100 mg/dL *ABN* (12/07/2011 23:45:00) Negative 12/08/2011 ABN [facility] URINALYSIS UA Glucose Negative (12/07/2011 23:45:00) Negative 12/08/2011 Normal [facility] URINALYSIS UA Ketones Negative *NA* (12/07/2011 23:45:00) Negative 12/08/2011 NA [facility] URINALYSIS UA pH 6.0 5.0 - 8.0 12/08/2011 Normal [facility] URINALYSIS UA Turbidity Clear (12/07/2011 23:45:00) Clear 12/08/2011 Normal [facility] URINALYSIS UA Color Yellow *NA* (12/07/2011 23:45:00) Yellow 12/08/2011 NA [facility] URINALYSIS UA Spec Grav >=1.030 *ABN* (12/07/2011 23:45:00) <=1.030 12/08/2011 ABN [facility] CHEMISTRY Total CK 574 12 - 191 12/08/2011 HI [facility] CHEMISTRY Troponin-I 0.03 0.00 - 0.40 12/08/2011 Normal [facility] CHEMISTRY Magnesium Lvl 2.3 1.8 - 2.4 12/08/2011 Normal [facility] CHEMISTRY B/C Ratio 15 6 - 25 12/08/2011 Normal [facility] CHEMISTRY BNP 1404 <=100 12/08/2011 HI <sup>7</sup>Interpretive Data: Elevated results are in line with increasing severity of
congestive heart failure. Minor elevations between 100 and 300
may be seen with Myocardial Ischemia, Sodium retaining drugs,
and compensated/treated heart failure. [facility] CHEMISTRY CK MB Index 0.3 0.0 - 2.5 12/08/2011 Normal [facility] CHEMISTRY CK MB 1.9 0.5 - 3.6 12/08/2011 Normal [facility] HEMATOLOGY PTT 36.5 22.9 - 35.8 12/08/2011 HI <sup>11</sup>Interpretive Data: Heparin Therapeutic Range: 57 - 92 Seconds [facility] HEMATOLOGY INR 1.61 0.85 - 1.17 12/08/2011 HI <sup>9</sup>Interpretive Data: RECOMMENDED RANGES FOR PROTIME INR:
2.0-3.0 for most medical and surgical thromboembolic states.
2.5-3.5 for artificial heart valves and recurrent embolism.

INR SHOULD BE USED ONLY FOR PATIENTS ON STABLE ANTICOAGULANT THERAPY. [facility] HEMATOLOGY PT 19.3 12.0 - 14.7 12/08/2011 [facility] HEMATOLOGY D-Dimer 2.45 12/08/2011 NA <sup>10</sup>Interpretive Data: In DIC, quantitative D-Dimer is generally greater than
0.66 ug/mL FEU. Values of quantitative D-Dimer less than
0.40 ug/mL FEU have been reported to be associated with a low
probability of deep vein thrombosis/pulmonary embolism.
This test alone should not be used to rule out DVT/PE. [facility] Pathology Reports No Data Provided for This Section Diagnostic Reports Report Value Date Source Chest 1view DX Chest 1view DX 52 years old Male Clinical Indication: - CP eval chf, ppm placement; Diabetis, CP, Pacemaker firing off today, nausea, vomiting, general feelings of malaise, and thirst. Comparison: 06/20/2017 at 07:44 FINDINGS: Tubes, lines, hardware: A single lead left subclavian pacemaker extends into the right heart. LUNGS: The volume of the lungs is diminished by shallow inspiration. There is some minor atelectasis or scarring suspected in the left base, similar to previous exam. The lungs are otherwise clear. No pleural effusion is noted. The pulmonary vasculature is within normal limits. MEDIASTINUM: The cardiac silhouette is stable. CHEST WALL: Unremarkable. SKELETON: The visualized osseous structures are unremarkable. IMPRESSION: 1. No significant change from previous exam. 2. Pacemaker. SL: DEANNA 09/30/2017 [facility] Abdomen 2 views DX Clinical Indication: Chest pain, weakness, and dizziness earlier today.; Comparison: None FINDINGS: The supine and upright views of the abdomen shows a non-obstructive bowel gas pattern. There is no abnormal dilatation of bowel loops. No significant air fluid levels. There is no pneumoperitoneum. There are no radiopaque densities noted. There are no clinically significant osseous abnormalities noted. IMPRESSION: 1. Unremarkable abdomen series. SL: [id number] 06/20/2017 [facility] 2 views DX Clinical Indication: Chest pain Comparison: 06/09/2016 FINDINGS: The PA and lateral chest radiographs shows decreased lung volumes without interstitial or airspace opacities, pleural effusions or pneumothorax. The cardiomediastinal contours are normal for the age of the patient with aortic tortuosity. The left subclavian cardiac pacer lead terminates within the right ventricle. There are degenerative changes in the spine and shoulders. IMPRESSION: No chest radiographic evidence of acute cardiopulmonary disease. SL: [id number] 06/20/2017 [facility] 1view DX Chest, single view dated 06/09/2017. HISTORY: Chest pain. Comparison is made to a prior study dated 03/07/2017. The positioning of the left subclavian transvenous pacemaker/defibrillator has not significantly changed in the interim. The heart appears upper normal in size. The mediastinum is otherwise unremarkable. The lungs appear clear. The pulmonary vasculature is normal in caliber. No acute pleural space abnormalities are identified. IMPRESSION: 1. No radiographic evidence of acute cardiopulmonary disease. SL: 131 06/09/2017 [facility] 1view DX EXAM: XR CHEST 1 VIEW DATE: 03/07/2017 8:47 PM WEIGHT RECORDER INDICATION: Chest pain. COMPARISON: 02/20/2017. TECHNIQUE: A single AP view of the chest was obtained. FINDINGS: A left subclavian defibrillator device is unchanged in position. No focal consolidation or pneumothorax is identified. The cardiomediastinal silhouette is within normal limits. The costophrenic recesses are sharp and without effusion. No acute osseous abnormality is noted. IMPRESSION: No acute cardiopulmonary abnormality. SL: [id number] 03/07/2017 [facility] 1view DX Chest 1view DX 02/20/2017 4:50 PM WEIGHT RECORDER Ordering Physician: Amilcar Vences MD CLINICAL HISTORY: Shortness of Breath - cp, SOB; TECHNIQUE: A single AP view of the chest was obtained. COMPARISON: 01/20/2017. FINDINGS: No focal consolidation or pleural effusion is seen. No radiographically detectable pneumothorax is present. The cardiomediastinal silhouette and its contours are normal. Left subclavian pacing device remains in place. No acute osseous abnormality is evident. IMPRESSION: No acute radiographic abnormality of the chest. SL: [id number] 02/20/2017 [facility] Chest 1view DX Clinical Indication:51 years Male with chest tightness - chest tightness Comparison: Chest x-ray 12/23/2016 FINDINGS: Lines: Unchanged left implantable cardiac defibrillator The single frontal chest radiograph shows normal lung volumes. No interstitial or airspace opacities. No pleural effusion. No pneumothorax. Cardiac silhouette is stable. Pulmonary vasculature is normal. The trachea is midline. There are no acute osseous abnormalities noted. IMPRESSION: No acute cardiopulmonary abnormality. 01/20/2017 [facility] 1view DX Study: Frontal chest x-ray compared to 11/09/2016. History: Chest pain. Comments: The trachea is midline. The cardiomediastinal silhouette is top normal in size. Left chest wall pacemaker in place No pneumonia. No congestive heart failure No pleural effusions or pneumothorax. Impression: No acute cardiopulmonary disease. 12/23/2016 [facility] 2 views DX Two-view chest Patient Name: NELI LARSON : 1965; Age: 51 years Male MR: [id number] Study: Chest 2 views DX Order Time: 11/09/2016 1:32 PM CDT Clinical Indication: chest pain - chest pain. COMPARISON: August 2016 x-rays. 07/23/2016. 06/23/2016. FINDINGS: Views: 2 LUNGS: Cardiac device wire is intact. There is increased lung volume. There are no suspicious interstitial/airspace opacities. Question small right pleural effusion. There is no pneumothorax. The pulmonary vasculature is normal. MEDIASTINUM: The cardiac silhouette is enlarged. The trachea is midline. BONES: There are no clinically significant osseous abnormalities noted. IMPRESSION: Hyperinflation. No radiographic evidence of acute pulmonary disease. SL: [id number] 11/09/2016 [facility] 1view DX EXAM: XR CHEST 1 VIEW DATE: 09/09/2016 8:38 PM CDT INDICATION: Chest pain. COMPARISON: 09/01/2016. TECHNIQUE: A single AP view of the chest was obtained. FINDINGS: A left subclavian defibrillator device is unchanged in position. There is a scarring noted within the left lung base. No focal consolidation is visualized. The cardiac silhouette is enlarged. The costophrenic recesses are sharp and without effusion. No acute osseous abnormality is noted. IMPRESSION: No acute cardiopulmonary abnormality. SL: [id number] 09/09/2016 [facility] Chest 1view DX Patient Name: NELI LARSON : 1965; Age: 51 years y/o Male MR: [id number] Study: Chest 1view DX 09/01/2016 9:58 PM CDT Ordering Physician: Clinical Indication: Chief Complaint:states he has afib and feels palpitationsReason For Visit:chest pain - painChief Complaint:states he has afib and feels palpitationsReason For Visit:chest pain; Comparison: 07/23/2016 1 view chest Lungs are clear. Mild cardiomegaly without overt congestive heart failure or pulmonary vascular congestion. No pleural effusion or pneumothorax. Automatic implantable cardiac defibrillator generator left chest wall with lead extending into the right ventricle as before. IMPRESSION: No new or acute finding. SL: COLTON 09/01/2016 [facility] Retroperitoneal Complete US Patient Name: NELI LARSON : 1965; Age: 50 years y/o Male MR: [id number] Study: Retroperitoneal Complete US Clinical Indication: Renal insufficiency - Acute renal failure; Comparison: None TECHNIQUE: Multiple longitudinal and transverse real time sonographic images of the kidneys and urinary bladder are obtained. FINDINGS: KIDNEY: The right kidney measures 11 x 5 x 5.5cm. The left kidney measures 11.5 x 5 x 5 cm. No pelvocaliectasis, nephrolithiasis or renal mass lesion identified bilaterally. BLADDER: Bladder is sonographically unremarkable. Left ureteral jet is visualized during the exam. IMPRESSION: No significant abnormality. SL: COLTON 07/24/2016 [facility] Chest 1view DX Study: Chest 1view DX 07/23/2016 9:15 PM CDT Patient Name: NELI LARSON MR: [id number] : 1965; Age: 50 years y/o Male Ordering Physician: Yves Bills MD Clinical Indication: Chest pain Comparison: 06/23/2016. FINDINGS LUNGS: The lungs are clear of consolidation, pleural effusion, and pneumothorax. Mildly basilar subsegmental atelectasis and scarring. HEART AND MEDIASTINUM: Mildly enlarged heart with a stable single lead left pacemaker/automatic implantable cardiac defibrillator. LINES: None. OSSEOUS STRUCTURES: No fracture, dislocation, or suspicious focal osseous lesion. OTHER: None. IMPRESSION: 1. No important interval change. SL: TPAINTER-PC 07/23/2016 [facility] 1view DX Study: Frontal chest x-ray compared to 10/12/2015. History: Dyspnea Comments: The trachea is midline. The cardiomediastinal silhouette is enlarged. Left chest wall pacemaker in place. Right costophrenic angle is not included in the [id number]. Mild pulmonary edema present. Impression: Cardiomegaly with mild pulmonary edema. 06/23/2016 [facility] 1view DX CHEST RADIOGRAPH SINGLE VIEW INDICATION: Chest pain COMPARISON: Chest radiograph 05/29/2014 IMPRESSION: The lungs are underinflated. The intracardiac pacer device is unchanged. The cardiac silhouette appears prominent, grossly without radiographic evidence of acute congestive failure. No consolidation, pleural effusion, or pneumothorax are visible. SL:16 10/12/2015 [facility] Pulmonary Embolism CTA CT Angiogram of Chest: TECHNIQUE: Contiguous transaxial images of the pulmonary arteries were performed at 2.5 mm intervals. 3-D volume rendering of the pulmonary vessels was performed on a dedicated workstation. COMPARISON: 04/03/2013 CLINICAL HX: Chest pain PULMONARY VESSELS: The main pulmonary trunk, right and left main pulmonary arteries, and the lobar branches are well opacified with IV contrast. No intraluminal filling defects are evident to suggest pulmonary emboli on the axial and 3D volume reformation images. CT CHEST: Lower Neck and Thyroid: No significant lymphadenopathy is evident at base of neck. Lungs and Airways: The lungs and pleural spaces are clear. The trachea and the proximal bronchi are patent. Cardiovascular and Mediastinum: The cardiac size is normal. The aorta demonstrates normal morphology, no evidence for aneurysm or dissection. No significant lymphadenopathy is noted in the mediastinum or hilar regions. Bone and Soft tissue: No significant bony abnormality is noted. Esophagus and Upper Abdomen: The esophagus demonstrates normal morphology. Visualized portion of the upper abdomen is grossly unremarkable. IMPRESSION: No evidence for pulmonary emboli. Mild scarring is noted in the lingula. Interval resolution of small right basilar effusion and ascites. SL:13 05/30/2014 [facility] 1view DX PORTABLE CHEST 05/29/2014 AND 2207 HOURS. INDICATION: Chest pain. COMPARISON: Chest 05/10/2013. Cardiac size is normal. Intracardiac device terminates in the right heart. There is slight elevation of the right hemidiaphragm. No pneumonia, vascular congestion or pleural effusion is seen. IMPRESSION: No acute abnormality. SL: 12 05/29/2014 [facility] Abdomen/Pelvis w IV contrast CT EXAM: Abdomen/Pelvis w contrast CT HISTORY: Abdominal distension COMPARISON: 02/24/2013. Axial imaging of the abdomen and pelvis was obtained after the administration of oral and intravenous contrast. Sagittal and coronal reformats were reviewed. FINDINGS: There are dependent changes of the lung bases the small right pleural effusion. There is a moderate amount of perihepatic fluid with a small to moderate amount of fluid layering in the dependent pelvis, tracking down the paracolic gutters bilaterally. The spleen is normal in size and unremarkable in appearance with moderate perisplenic free fluid noted as well. These findings are slightly worsened compared to the prior study. No focal hepatic lesion is seen. The gallbladder is contracted. There are numerous colonic diverticula. No focal evidence of diverticulitis is seen. There is no abscess. There is no evidence of bowel obstruction. The bladder is unremarkable. There is a small fat containing umbilical hernia. Kidneys are unremarkable. No free air is seen and there are no enlarged lymph nodes. There is no concerning osseous lesion. IMPRESSION: Moderate perihepatic and perisplenic free fluid tracking down the paracolic gutters with an associated mild to moderate amount of free fluid in the pelvis. These findings are slightly worsened compared to prior study. There is a small right effusion which is favored to be associated with hepatocellular disease. No focal liver lesion is seen 05/10/2013 [facility] Chest 1view Compared to 05/07/2013, moderate cardiomegaly and mild vascular congestion are present. No pulmonary edema is seen. Left- sided cardiac pacing device is stable. IMPRESSION: 1. Stable cardiomegaly and vascular congestion. 05/10/2013 [facility] [place] Chest 2 views Chest x-ray 2 views INDICATION: Chest pain COMPARISON: 04/25/2013 FINDINGS: Stable moderate cardiomegaly. Left cardiac pacemaker is unchanged in position. There is no effusion or focal pneumonia. No pneumothorax. No acute osseous pathology. IMPRESSION: Stable cardiomegaly. 05/07/2013 [facility] [place] Chest 1view Chest one view: COMPARISON: Chest x-ray dated 04/08/2013. FINDINGS: A left subclavian transvenous cardiac pacemaker is in place. The heart is enlarged. The lungs are poorly inflated. There are no acute infiltrates or edema within either lung. The costophrenic sulci are clear. IMPRESSION: Cardiomegaly. SL: 14 04/25/2013 [facility] Chest 1view PORTABLE CHEST (chest 1 view) HISTORY: Chest pain Comparison is made to 04/03/2013. There studies of 02/24/2013 and 01/31/2013 were reviewed. A chest CT scan of 04/03/2013 was also reviewed. FINDINGS: The lungs are clear. There is mild cardiomegaly. There is no overt failure. There are no pleural effusions. The regional skeleton is unremarkable. There is a left subclavian single lead transvenous pacemaker/AICD. CONCLUSION: 1. No active disease. 2. Mild cardiomegaly. 3. There is a left subclavian single lead transvenous pacemaker/AICD. Coding: [facility] 1view CPT code: 80269 SL: 12 Drew Mcconnell M.D. 04/08/2013 [facility] Brain wo contrast CT CT head without IV contrast, Apr 04, 2013 11:30:00 AM CLINICAL HISTORY: Loss of consciousness ; See Clinic Indication TECHNIQUE: Routine 5 mm thick axial images of the head were obtained without IV contrast. COMPARISON: CT head 12/24/2012 FINDINGS: No acute intracranial hemorrhage or secondary signs of increased intracranial pressure are noted. No evidence of territorial infarction is suggested. Ventricles and cisterns are prominent in size and contour. Wang-white matter junction is normal. No focal mass or midline shift is suggested. Orbits are normal. Sinuses and air cells are clear. Calvarium is intact. IMPRESSION: No acute abnormality of the brain. Mild diffuse volume loss. SL: 14 04/04/2013 [facility] Chest Pulmonary Embolism CTA CHEST CT WITH CONTRAST HISTORY: Shortness of Breath COMPARISON: CT of the chest from November 10, 2012. Chest x-ray performed earlier the same day. DLP: 1555.98 TECHNIQUE: Acquisition of axial images from the base of the neck the upper abdomen following the administration of intravenous contrast, utilizing a multidetector CT. MPR postprocessing. Findings: Pulmonary arteries are well opacified with contrast. Multiple scattered ill-defined filling defects throughout the right upper, right middle, and right lower lobe segmental pulmonary arteries are seen, compatible with multiple pulmonary thromboemboli. The heart is mildly enlarged. Small pericardial effusion is seen. No pathologic mediastinal, hilar, or axillary adenopathy is seen. No endobronchial lesions are identified within the central airways. Small right pleural effusion is seen. There are no suspicious osseous lesions. Limited views of the upper abdomen show a moderate amount of ascites. Impression: 1. Multiple pulmonary thromboemboli throughout the right upper, right middle, and right lower lobes. 2. Small right pleural effusion. 3. Moderate amount of ascites. Dr. Vargas was notified on 04/03/2013 at 1:12 p.m. SL: 14 04/03/2013 [facility] Chest 1view PORTABLE CHEST (chest 1 view) HISTORY: Chest pain Comparison is made to 02/24/2013 pretty study of 01/22/2013 was also reviewed. FINDINGS: The lungs are clear. There is mild cardiomegaly. There is no overt failure. There are no pleural effusions. The regional skeleton is unremarkable. There is a left subclavian single lead transvenous pacemaker/AICD. CONCLUSION: 1. No active disease. 2. Mild cardiomegaly. 3. There is a left subclavian single lead transvenous pacemaker/AICD. Coding: Chest 1view CPT code: 93859 SL: 13 Drew Mcconnell M.D. 04/03/2013 [facility] Abdomen/Pelvis w IV contrast CT CT abdomen and pelvis with IV contrast, Feb 24, 2013 10:10:00 AM CLINICAL HISTORY: Acute abdominal pain ; Oral Contrast TECHNIQUE: Routine 5 mm thick axial images of the abdomen and pelvis are obtained with oral and IV contrast. Routine 5 minute delayed images were obtained. Coronal and sagittal reformations were created. COMPARISON: None FINDINGS: Visualized lung bases are clear. Cardiomegaly is present. Minimal perihepatic perisplenic free fluid is present. Mild diffuse fatty infiltration of liver is present. Gallbladder is contracted, but with mild circumferential mural edema suggested. Kidneys demonstrate mild perinephric stranding, but without hydroureteronephrosis or calculus. Mild free fluid is noted in the pelvis. Bladder is contracted. Spleen, pancreas, and adrenal glands are normal. Few sigmoid colonic diverticula present. Small hiatal hernia is present. Otherwise, the stomach, small intestine, and colon are normal. Appendix is not identified. No free air is visualized within the abdominal cavity. No mesenteric or retroperitoneal lymphadenopathy is present. Bones are unremarkable. IMPRESSION: 1. Cardiomegaly. 2. Mild diffuse fatty infiltration of liver. Three minimal perihepatic and perisplenic free fluid and mild free fluid in the pelvis. Mild circumferential mural thickening of the partially contracted gallbladder. Possible changes secondary to underlying hepatocellular disease and/or hypoalbuminemia. 3. Mild bilateral perinephric stranding, nonspecific. 4. Small hiatal hernia. 5. Minimal sigmoid colonic diverticulosis. SL: 14 02/24/2013 [facility] 2 views Chest 2 views: COMPARISON: Chest x-ray dated 02/01/2013. FINDINGS: The left subclavian transvenous cardiac pacemaker remains in place. The heart is enlarged. The lungs are clear with no acute infiltrates or edema. The costophrenic sulci are clear. IMPRESSION: Cardiomegaly. SL: 12 02/24/2013 [facility] 1view NAME: NELI LARSON : 1965 SEX: M Ordering Physician: Rolando Myles Chest 1view : Feb 01, 2013 07:38:00 AM. CLINICAL INDICATION: Heart failure. Comparison Examination: 01/31/2013. FINDINGS: The left lung base is not fully evaluated on this study. Stable position of left transvenous pacer. Enlarged cardiac silhouette and mediastinal structures are stable. Mild hazy patchy opacity over the right lung is similar to prior study and may represent component of asymmetric edema. No focal infiltrate within the left lung. No pneumothorax. SL: 14 02/01/2013 [facility] 1view PROCEDURE: Chest 1view REASON FOR EXAM: See Clinic Indication CLINICAL INDICATION: Chest pain COMPARISON: 01/22/2013. FINDINGS: Stable mild cardiomegaly. Probably persistent mild vascular congestion and pulmonary edema. No significant pleural effusion or pneumothorax. Left cardiac device is unchanged. Overall, no significant interval change. SL: 12 01/31/2013 [facility] 1view Exam: Chest X-ray, 1 view History: chest pain Comparison: January 14, 2013 Findings: Single frontal portable view of the chest. An implanted AICD device is again noted placed via left subclavian approach and connected to a battery pack. The heart size is enlarged.The mediastinum is normal . Mild vascular prominence is noted. .The lungs are clear without consolidation or effusion .No acute bony abnormality . . Impression: Cardiomegaly and mild perihilar vascular prominence. 01/22/2013 [facility] [place] Chest 2 views HISTORY: Chest pain, shortness of breath. Comparison is made to previous chest radiograph 01/04/2013. The cardiac silhouette is enlarged. A left subclavian pacemaker is noted. No focal consolidation is identified. Degenerative change involves the lower thoracic spine. IMPRESSION: No active disease. SL: 3 01/14/2013 [facility] Chest 1view One view chest 01/04/2013. INDICATION: Chest pain. COMMENT: Frontal chest radiograph is reviewed. Cardiomegaly and vascular congestion is unchanged compared to earlier chest radiograph 12/24/2012. Left transvenous AICD again noted. IMPRESSION: Cardiomegaly and vascular congestion. 01/04/2013 [facility] [place] Chest 2 views Chest x-ray 2 views Indication: Chest pain Comparison: 12/24/2012 Findings: Evaluation is suboptimal secondary to poor inspiratory effort. Stable cardiomegaly with mild congestion of the pulmonary vasculature. Left chest defibrillator device is unchanged. No infiltrate or effusion. Suggestion of small amount of air seen under the right hemidiaphragm, left lateral decubitus views advised. No acute osseous abnormality. Impression: 1. Stable cardiomegaly with vascular congestion. 2. Suggestion of small amount of air under the right hemidiaphragm, left lateral decubitus view advised. Findings discussed with Dr. Mcarthur of the ED at the time of dictation. 01/04/2013 [facility] [place] Abdomen/Pelvis w contrast CT CT abdomen and pelvis with contrast: INDICATION: Abdominal pain ADMINISTERED CONTRAST: IV contrast given: 100 cc of Omnipaque-300. Oral contrast given: The patient unable to tolerate. FINDINGS: Helical axial images were obtained from lung base through the level of the pubic symphysis at 5 mm collimation. Coronal reconstructions of the abdomen were obtained. Comparison is made prior CT scan of the abdomen from 11/10/2012. A small right pleural effusion has developed. The lung bases are otherwise clear. The heart is normal size. There is no pericardial effusion. There are low-density changes of the liver diffusely. The liver is mildly prominent size but stable. The gallbladder is partially distended. No definite gallstone, bladder wall thickening or pericholecystic fluid on today's exam. There is a small volume of ascites within the upper abdomen, tracking along the paracolic gutters. Volume of ascites has mildly increased. The spleen, kidneys, adrenal glands and pancreas are stable. The small and large bowel loops are normal caliber. Mild colonic wall thickening involving the cecum and ascending colon appears new from the previous exam. There is diverticulosis of the distal descending and sigmoid colon without secondary signs of acute diverticulitis. No pericecal abscess organized fluid collection. No pneumoperitoneum. The abdominal aorta is normal in caliber. No free fluid is seen within the abdomen or pelvis. Fat-containing periumbilical hernia is incidentally noted. Surrounding osseous structures and soft tissues are stable. IMPRESSION: 1. Mild colonic wall thickening involving the cecum and ascending colon are noted, likely new when compared to the previous exam. The findings are concerning for nonspecific colitis which may be infectious or inflammatory in etiology. 2. Low-density changes of the liver with small volume ascites. The volume of ascites has slightly increased. 3. Small right pleural effusion 4. Fat-containing periumbilical hernia. SL:12/24/2012 [facility] Brain wo contrast CT CT Head Noncontrast HISTORY: Syncope. COMPARISON: December 28, 2008. TECHNIQUE: Axial images obtained from the skull base to the vertex. No contrast administered. FINDINGS: The brain parenchyma appears within normal limits. The wang-white matter differentiation appears intact. No mass, mass effect, midline shift, parenchymal hemorrhage, or evidence for acute ischemia appreciated. The ventricles appear symmetric. There is no intra- or extra-axial fluid collection. The calvarium is intact. Visualized paranasal sinuses and mastoid air cells are clear. IMPRESSION: 1. No acute intracranial abnormality. SL: 12/24/2012 [facility] Chest 1view AP portable chest: INDICATION: Chest pain FINDINGS: Comparison is made to prior study from 11/10/2012. As seen on the previous exam, margin mild interstitial and perihilar infiltrates, not significantly changed. No definite confluent infiltrates, significant pleural effusion or pneumothorax. A defibrillator device is implanted over the left chest. The mediastinum is unchanged. Surrounding osseous structures and soft tissues are within normal limits. IMPRESSION: 1. Cardiomegaly with findings suggestive of vascular congestion, not significantly changed. SL:12/24/2012 [facility] Gallbladder scan HIDA with meds (NM) NUCLEAR MEDICINE HEPATOBILIARY SCAN WITH ASSESSMENT OF GALLBLADDER EMPTYING KINETICS HISTORY: Acute abdominal pain. COMPARISON: No relevant priors available. Following the IV administration of 7 mCi 99 M technetium Choletec right upper quadrant was imaged demonstrating activity within the gallbladder by 15 minutes and within small bowel by 10 minutes. Following CCK administration gallbladder emptying kinetics were assessed. The ejection fraction is 59% normal is 30% or greater. IMPRESSION: 1. Normal exam. SL: 02 11/11/2012 [facility] Abdomen RUQ US LIMITED ABDOMINAL ULTRASOUND WITH ATTENTION TO THE HEPATOBILIARY SYSTEM. HISTORY: Right upper quadrant pain. COMPARISON: Today's CT abdomen pelvis. There is coarse echogenicity of the liver parenchyma no focal liver lesions. Liver size normal. Right kidney and visualized portions of the pancreas, IVC and abdominal aorta are normal although portions of each of these structures is obscured by bowel gas.. No fluid collections. Gallbladder wall thickening and some areas gallbladder wall is 7 mm thick normal is 3 mm or less. No stones or sludge. No pericholecystic fluid collections.. The common bile duct is 3 mm in diameter. IMPRESSION: 1. Gallbladder wall thickening this can be seen in cholecystitis. No stones or sludge identified. No bile duct dilatation. If there is clinical concern for cholecystitis nuclear medicine hepatobiliary scan can be performed to assess for patency of the cystic duct. SL: 02 11/10/2012 [facility] Chest CTA pulm emb HISTORY: Shortness of breath. Comparison is made to previous chest radiograph 11/10/2012. Thin section axial CT imaging through the chest with coronal MIP reconstructions was performed post 100 cc Omnipaque 300 intravenous contrast (CT pulmonary angiogram). The heart is enlarged and a left subclavian pacemaker is noted. The great vessels appear intact and no acute pulmonary emboli are identified. There are multiple subcentimeter prevascular, right paratracheal, pretracheal and precarinal lymph nodes. There is minimal vascular congestion with subsegmental atelectasis at the lung bases. No focal consolidation is identified and no pleural effusions are observed. The visualized portions of the liver and spleen are unremarkable. Degenerative change involves the lower thoracic spine. IMPRESSION: 1. Cardiomegaly with findings suggesting minimal vascular congestion. 2. No acute pulmonary emboli identified. SL: 3 11/10/2012 [facility] Abdomen/Pelvis w contrast CT HISTORY: Abdominal pain. Comparison is made to previous abdominal ultrasound 12/07/2011. CT imaging through the abdomen and pelvis from the diaphragm through the symphysis pubis was performed post 100 cc Omnipaque 300 intravenous contrast, oral contrast was not administered secondary to ER physician order. The heart is enlarged and a left subclavian pacemaker is noted. There is minimal subsegmental atelectasis at the posterior lung bases. The liver demonstrates diminished attenuation consistent with fatty infiltration. The gallbladder is somewhat contracted and appears to demonstrate minimal wall thickening however no cholelithiasis is observed. The spleen, pancreas, adrenal glands and left kidney appear grossly normal. A 9 mm hypodense lesion is noted in the lateral midpole cortex of the right kidney possibly representing a cyst. There is a small fat-containing umbilical hernia. There is trace free fluid adjacent to the spleen and within the deep central pelvis. What is believed to be the appendix is unremarkable. There are multiple scattered diverticula involving the descending and sigmoid colon without acute diverticulitis. CT imaging through the pelvis reveals a normal-appearing bladder, seminal vesicles and prostate gland. No pelvic mass is observed. Degenerative change involves the lower lumbosacral spine. IMPRESSION: 1. Fatty infiltration of the liver. 2. Findings suggesting gallbladder wall thickening, acalculous cholecystitis cannot be entirely excluded. 3. Right renal cyst. 4. Minimal free fluid in the abdomen and pelvis. 5. Small fat-containing umbilical hernia. 6. Colonic diverticulosis. SL: 3 11/10/2012 [facility] Chest 1view HISTORY: Dyspnea, shortness of breath. Comparison is made to previous chest radiograph 10/18/2012. The cardiac silhouette appears slightly enlarged. There is minimal vascular congestion. A left subclavian pacemaker is noted. IMPRESSION: Findings suggesting minimal vascular congestion. 11/10/2012 [facility] Chest 1view 1 VIEW PORTABLE CHEST X-RAY 5:30 a.m. HISTORY: Chest pain heart failure. COMPARISON: Yesterday's chest x-ray. The heart is prominent. Mediastinum normal. There is pulmonary venous congestion and edema. Pacemaker appears stable. IMPRESSION: Allowing for differences in technique and degree of inspiration there is no significant change in the cardiomegaly or changes of CHF. SL: 02 10/18/2012 [facility] Chest 1view AP portable chest: INDICATION: Chest pain FINDINGS: Comparison is made to prior study from 12/07/2011. The heart is enlarged and there are mild interstitial infiltrates. Atelectasis suggested in the left lung base. No definite confluent infiltrates or pneumothorax. A defibrillator device is implanted over the left chest. The cardiac silhouette and mediastinum are stable. Surrounding osseous structures and soft tissues are within normal limits. IMPRESSION: 1. Cardiomegaly with mild interstitial infiltrate suggestive of vascular congestion. 2. Left basilar atelectasis. SL:03 10/17/2012 [facility] Consultation Notes No Data Provided for This Section Discharge Summaries No Data Provided for This Section History and Physicals No Data Provided for This Section Vital Signs Vital Sign Value Date Comments Source Heart Rate 85 10/01/2017 [facility] Respitory Rate 20 10/01/2017 [facility] Systolic (mm Hg) 149 10/01/2017 [facility] Diastolic (mm Hg) 105 10/01/2017 [facility] Heart Rate 80 09/30/2017 [facility] Systolic (mm Hg) 136 09/30/2017 [facility] Diastolic (mm Hg) 108 09/30/2017 [facility] Temperature Oral (F) 97.8 F 09/30/2017 [facility] Respitory Rate 20 09/30/2017 [facility] Weight 109.091 09/30/2017 [facility] Respitory Rate 20 06/21/2017 [facility] Systolic (mm Hg) 130 06/21/2017 [facility] Diastolic (mm Hg) 93 06/21/2017 [facility] Heart Rate 79 06/21/2017 [facility] Temperature Oral (F) 98.4 F 06/21/2017 [facility] Systolic (mm Hg) 133 06/21/2017 [facility] Diastolic (mm Hg) 87 06/21/2017 [facility] Respitory Rate 20 06/21/2017 [facility] Heart Rate 62 06/21/2017 [facility] Temperature Oral (F) 97.8 F 06/21/2017 [facility] Systolic (mm Hg) 108 06/21/2017 [facility] Diastolic (mm Hg) 76 06/21/2017 [facility] Heart Rate 73 06/21/2017 [facility] Temperature Oral (F) 98.7 F 06/21/2017 [facility] Respitory Rate 18 06/21/2017 [facility] BMI Calculated 35.65 06/20/2017 [facility] Weight 106.364 06/20/2017 [facility] Height 172.72 cm 06/20/2017 [facility] Weight 86.364 06/20/2017 [facility] Systolic (mm Hg) 126 06/10/2017 [facility] Diastolic (mm Hg) 84 06/10/2017 [facility] Respitory Rate 18 06/10/2017 [facility] Heart Rate 64 06/10/2017 [facility] Temperature Oral (F) 98 F 06/10/2017 [facility] Temperature Oral (F) 97.3 F 06/10/2017 [facility] Systolic (mm Hg) 121 06/10/2017 [facility] Diastolic (mm Hg) 87 06/10/2017 [facility] Heart Rate 61 06/10/2017 [facility] Respitory Rate 18 06/10/2017 [facility] Heart Rate 79 06/10/2017 [facility] Respitory Rate 18 06/10/2017 [facility] Systolic (mm Hg) 108 06/10/2017 [facility] Diastolic (mm Hg) 75 06/10/2017 [facility] Temperature Oral (F) 97.7 F 06/10/2017 [facility] BMI Calculated 25.11 06/09/2017 [facility] Weight 72.727 06/09/2017 [facility] Height 170.18 cm 06/09/2017 [facility] Weight 90.909 06/09/2017 [facility] BMI Calculated 29.6 06/09/2017 [facility] Height 175.26 cm 06/09/2017 [facility] Respitory Rate 20 03/08/2017 [facility] Systolic (mm Hg) 105 03/08/2017 [facility] Diastolic (mm Hg) 74 03/08/2017 [facility] Heart Rate 76 03/08/2017 [facility] Heart Rate 67 03/08/2017 [facility] Systolic (mm Hg) 105 03/08/2017 [facility] Diastolic (mm Hg) 73 03/08/2017 [facility] Respitory Rate 20 03/08/2017 [facility] Systolic (mm Hg) 99 03/08/2017 [facility] Diastolic (mm Hg) 61 03/08/2017 [facility] Respitory Rate 18 03/08/2017 [facility] Heart Rate 55 03/08/2017 [facility] Weight 99.6 03/08/2017 [facility] BMI Calculated 34.39 03/08/2017 [facility] Height 170.18 cm 03/08/2017 [facility] Height 170.18 cm 03/08/2017 [facility] Temperature Oral (F) 97.7 F 03/08/2017 [facility] Temperature Oral (F) 97.8 F 03/08/2017 [facility] Systolic (mm Hg) 97 02/22/2017 [facility] Diastolic (mm Hg) 69 02/22/2017 [facility] Respitory Rate 18 02/22/2017 [facility] Temperature Oral (F) 97.8 F 02/22/2017 [facility] Heart Rate 64 02/22/2017 [facility] Respitory Rate 18 02/22/2017 [facility] Heart Rate 54 02/22/2017 [facility] Systolic (mm Hg) 111 02/22/2017 [facility] Diastolic (mm Hg) 65 02/22/2017 [facility] Temperature Oral (F) 97.8 F 02/22/2017 [facility] Systolic (mm Hg) 107 02/22/2017 [facility] Diastolic (mm Hg) 65 02/22/2017 [facility] Temperature Oral (F) 97.6 F 02/22/2017 [facility] Heart Rate 69 02/22/2017 [facility] Respitory Rate 18 02/22/2017 [facility] Height 170.18 cm 02/21/2017 [facility] BMI Calculated 35 02/21/2017 [facility] Weight 101.364 02/21/2017 [facility] Height 170.18 cm 02/20/2017 [facility] BMI Calculated 35.47 02/20/2017 [facility] Weight 102.727 02/20/2017 [facility] Respitory Rate 20 01/21/2017 [facility] Systolic (mm Hg) 126 01/21/2017 [facility] Diastolic (mm Hg) 89 01/21/2017 [facility] Heart Rate 57 01/21/2017 [facility] Temperature Oral (F) 97.9 F 01/21/2017 [facility] Systolic (mm Hg) 104 01/21/2017 [facility] Diastolic (mm Hg) 83 01/21/2017 [facility] Respitory Rate 18 01/21/2017 [facility] Heart Rate 78 01/21/2017 [facility] Temperature Oral (F) 97.5 F 01/21/2017 [facility] Heart Rate 76 01/21/2017 [facility] Temperature Oral (F) 97.9 F 01/21/2017 [facility] Respitory Rate 18 01/21/2017 [facility] Systolic (mm Hg) 99 01/21/2017 [facility] Diastolic (mm Hg) 68 01/21/2017 [facility] Height 172.72 cm 01/21/2017 [facility] Weight 101.449 01/21/2017 [facility] BMI Calculated 34.01 01/21/2017 [facility] Weight 102.273 01/21/2017 [facility] Heart Rate 85 12/23/2016 [facility] Temperature Oral (F) 98 F 12/23/2016 [facility] Systolic (mm Hg) 124 12/23/2016 [facility] Diastolic (mm Hg) 75 12/23/2016 [facility] Respitory Rate 20 12/23/2016 [facility] Systolic (mm Hg) 113 12/23/2016 [facility] Diastolic (mm Hg) 101 12/23/2016 [facility] Heart Rate 105 12/23/2016 [facility] Respitory Rate 24 12/23/2016 [facility] Weight 107.273 12/23/2016 [facility] Heart Rate 79 12/23/2016 [facility] Systolic (mm Hg) 129 12/23/2016 [facility] Diastolic (mm Hg) 91 12/23/2016 [facility] Respitory Rate 20 12/23/2016 [facility] Temperature Oral (F) 98.9 F 12/23/2016 [facility] Systolic (mm Hg) 125 11/09/2016 [facility] Diastolic (mm Hg) 92 11/09/2016 [facility] Heart Rate 80 11/09/2016 [facility] Respitory Rate 17 11/09/2016 [facility] Temperature Oral (F) 98.8 F 11/09/2016 [facility] Respitory Rate 18 11/09/2016 [facility] Heart Rate 100 11/09/2016 [facility] Systolic (mm Hg) 153 11/09/2016 [facility] Diastolic (mm Hg) 98 11/09/2016 [facility] Height 170.18 cm 11/09/2016 [facility] Weight 106.818 11/09/2016 [facility] BMI Calculated 36.88 11/09/2016 [facility] Systolic (mm Hg) 133 11/09/2016 [facility] Diastolic (mm Hg) 93 11/09/2016 [facility] Heart Rate 70 11/09/2016 [facility] Respitory Rate 18 11/09/2016 [facility] Temperature Oral (F) 97.9 F 11/09/2016 [facility] Respitory Rate 18 09/11/2016 [facility] Systolic (mm Hg) 112 09/11/2016 [facility] Diastolic (mm Hg) 79 09/11/2016 [facility] Heart Rate 62 09/11/2016 [facility] Temperature Oral (F) 98.0 F 09/11/2016 [facility] Heart Rate 91 09/11/2016 [facility] Respitory Rate 18 09/11/2016 [facility] Systolic (mm Hg) 115 09/11/2016 [facility] Diastolic (mm Hg) 81 09/11/2016 [facility] Temperature Oral (F) 98.0 F 09/11/2016 [facility] Systolic (mm Hg) 124 09/11/2016 [facility] Diastolic (mm Hg) 86 09/11/2016 [facility] Respitory Rate 20 09/11/2016 [facility] Heart Rate 76 09/11/2016 [facility] Temperature Oral (F) 98.3 F 09/11/2016 [facility] Weight 101.364 09/10/2016 [facility] Weight 101.364 09/10/2016 [facility] Systolic (mm Hg) 105 09/02/2016 [facility] Diastolic (mm Hg) 70 09/02/2016 [facility] Temperature Oral (F) 97.4 F 09/02/2016 [facility] Respitory Rate 18 09/02/2016 [facility] Heart Rate 80 09/02/2016 [facility] Respitory Rate 18 09/02/2016 [facility] Temperature Oral (F) 97.8 F 09/02/2016 [facility] Systolic (mm Hg) 115 09/02/2016 [facility] Diastolic (mm Hg) 84 09/02/2016 [facility] Heart Rate 86 09/02/2016 [facility] Temperature Oral (F) 97.7 F 09/02/2016 [facility] Respitory Rate 18 09/02/2016 [facility] Systolic (mm Hg) 100 09/02/2016 [facility] Diastolic (mm Hg) 69 09/02/2016 [facility] Heart Rate 60 09/02/2016 [facility] BMI Calculated 33.51 09/02/2016 [facility] Weight 102.926 09/02/2016 [facility] Height 175.26 cm 09/02/2016 [facility] Weight 90.909 09/02/2016 [facility] Respitory Rate 18 07/26/2016 [facility] Heart Rate 62 07/26/2016 [facility] Temperature Oral (F) 98.2 F 07/26/2016 [facility] Systolic (mm Hg) 111 07/26/2016 [facility] Diastolic (mm Hg) 85 07/26/2016 [facility] Temperature Oral (F) 97.5 F 07/26/2016 [facility] Respitory Rate 18 07/26/2016 [facility] Systolic (mm Hg) 105 07/26/2016 [facility] Diastolic (mm Hg) 62 07/26/2016 [facility] Heart Rate 61 07/26/2016 [facility] Heart Rate 75 07/26/2016 [facility] Respitory Rate 18 07/26/2016 [facility] Systolic (mm Hg) 102 07/26/2016 [facility] Diastolic (mm Hg) 71 07/26/2016 [facility] Temperature Oral (F) 97.5 F 07/26/2016 [facility] Height 172.72 cm 07/24/2016 [facility] Weight 99 07/24/2016 [facility] BMI Calculated 33.19 07/24/2016 [facility] Weight 104.545 07/24/2016 [facility] Systolic (mm Hg) 123 06/23/2016 [facility] Diastolic (mm Hg) 86 06/23/2016 [facility] Respitory Rate 18 06/23/2016 [facility] Heart Rate 92 06/23/2016 [facility] Temperature Oral (F) 97.9 F 06/23/2016 [facility] Weight 104.545 06/23/2016 [facility] BMI Calculated 35.04 06/23/2016 [facility] Height 172.72 cm 06/23/2016 [facility] Temperature Oral (F) 97.7 F 06/23/2016 [facility] Heart Rate 115 06/23/2016 [facility] Respitory Rate 18 06/23/2016 [facility] Systolic (mm Hg) 138 06/23/2016 [facility] Diastolic (mm Hg) 89 06/23/2016 [facility] Height 175.26 cm 01/20/2016 [facility] BMI Calculated 34.78 01/20/2016 [facility] Weight 106.818 01/20/2016 [facility] Weight 106.364 12/08/2015 [facility] BMI Calculated 34.63 12/08/2015 [facility] Height 175.26 cm 12/08/2015 [facility] Temperature Oral (F) 97.4 F 10/13/2015 [facility] Respitory Rate 18 10/13/2015 [facility] Heart Rate 77 10/13/2015 [facility] Systolic (mm Hg) 132 10/13/2015 [facility] Diastolic (mm Hg) 91 10/13/2015 [facility] Systolic (mm Hg) 117 10/13/2015 [facility] Diastolic (mm Hg) 87 10/13/2015 [facility] Respitory Rate 12 10/13/2015 [facility] Heart Rate 83 10/13/2015 [facility] Temperature Oral (F) 97.9 F 10/13/2015 [facility] Respitory Rate 16 10/13/2015 [facility] Systolic (mm Hg) 110 10/13/2015 [facility] Diastolic (mm Hg) 70 10/13/2015 [facility] Temperature Oral (F) 97.9 F 10/13/2015 [facility] Heart Rate 85 10/13/2015 [facility] Height 170.18 cm 10/12/2015 [facility] Weight 95.455 10/12/2015 [facility] BMI Calculated 32.96 10/12/2015 [facility] Diastolic (mm Hg) 101 05/10/2013 [facility] Systolic (mm Hg) 141 05/10/2013 [facility] Respitory Rate 16 05/10/2013 [facility] Temperature Oral (F) 97.7 F 05/10/2013 [facility] Heart Rate 84 05/10/2013 [facility] Diastolic (mm Hg) 108 05/10/2013 [facility] Systolic (mm Hg) 145 05/10/2013 [facility] Temperature Oral (F) 97.7 F 05/10/2013 [facility] Respitory Rate 16 05/10/2013 [facility] Heart Rate 88 05/10/2013 [facility] Systolic (mm Hg) 135 05/10/2013 [facility] Diastolic (mm Hg) 105 05/10/2013 [facility] [facility] Heart Rate 89 05/10/2013 [facility] Respitory Rate 16 05/10/2013 [facility] Weight 106.818 05/10/2013 [facility] Height 172.72 cm 05/10/2013 [facility] Temperature Oral (F) 97.6 F 05/10/2013 [facility] Heart Rate 87 05/07/2013 [facility] Respitory Rate 20 05/07/2013 [facility] Systolic (mm Hg) 145 05/07/2013 [facility] [place] Diastolic (mm Hg) 84 05/07/2013 [facility] [facility] Heart Rate 91 05/07/2013 [facility] Respitory Rate 18 05/07/2013 [facility] Systolic (mm Hg) 135 05/07/2013 [facility] [place] Diastolic (mm Hg) 88 05/07/2013 [facility] Respitory Rate 22 05/07/2013 [facility] Heart Rate 95 05/07/2013 [facility] Diastolic (mm Hg) 116 05/07/2013 [facility] Systolic (mm Hg) 147 05/07/2013 [facility] Weight 104.545 05/07/2013 [facility] Height 177.8 cm 05/07/2013 [facility] Heart Rate 97 04/25/2013 [facility] Respitory Rate 20 04/25/2013 [facility] Systolic (mm Hg) 156 04/25/2013 [facility] Diastolic (mm Hg) 96 04/25/2013 [facility] Temperature Oral (F) 98.2 F 04/25/2013 [facility] Diastolic (mm Hg) 94 04/25/2013 [facility] Temperature Oral (F) 97.9 F 04/25/2013 [facility] Respitory Rate 20 04/25/2013 [facility] Heart Rate 88 04/25/2013 [facility] Systolic (mm Hg) 127 04/25/2013 [facility] Systolic (mm Hg) 125 04/25/2013 [facility] Diastolic (mm Hg) 98 04/25/2013 [facility] Heart Rate 75 04/25/2013 [facility] Respitory Rate 18 04/25/2013 [facility] Weight 111.364 04/25/2013 [facility] Height 170.18 cm 04/25/2013 [facility] Temperature Oral (F) 98.9 F 04/25/2013 [facility] Heart Rate 72 04/10/2013 [facility] Temperature Oral (F) 97.8 F 04/10/2013 [facility] Respitory Rate 20 04/10/2013 [facility] Diastolic (mm Hg) 81 04/10/2013 [facility] Systolic (mm Hg) 117 04/10/2013 [facility] Diastolic (mm Hg) 74 04/10/2013 [facility] Systolic (mm Hg) 108 04/10/2013 [facility] Temperature Oral (F) 97.4 F 04/10/2013 [facility] Heart Rate 69 04/10/2013 [facility] Diastolic (mm Hg) 60 04/10/2013 [facility] Respitory Rate 20 04/10/2013 [facility] Systolic (mm Hg) 92 04/10/2013 [facility] Temperature Oral (F) 98.3 F 04/10/2013 [facility] Respitory Rate 20 04/10/2013 [facility] Heart Rate 76 04/10/2013 [facility] Weight 98.295 04/09/2013 [facility] Weight 99.545 04/08/2013 [facility] Height 172.72 cm 04/04/2013 [facility] Weight 101.2 04/04/2013 [facility] Height 180.34 cm 04/03/2013 [facility] Systolic (mm Hg) 138 03/10/2013 [facility] Diastolic (mm Hg) 96 03/10/2013 [facility] Respitory Rate 18 03/10/2013 [facility] Heart Rate 96 03/10/2013 [facility] Temperature Oral (F) 98.2 F 03/10/2013 [facility] Diastolic (mm Hg) 104 03/10/2013 [facility] Respitory Rate 18 03/10/2013 [facility] Systolic (mm Hg) 144 03/10/2013 [facility] Heart Rate 101 03/10/2013 [facility] Temperature Oral (F) 98.3 F 03/10/2013 [facility] Weight 129.545 03/10/2013 [facility] Height 172.72 cm 03/10/2013 [facility] Respitory Rate 18 03/10/2013 [facility] Temperature Oral (F) 98.0 F 03/10/2013 [facility] Systolic (mm Hg) 138 03/10/2013 [facility] Diastolic (mm Hg) 108 03/10/2013 [facility] Heart Rate 75 03/10/2013 [facility] Diastolic (mm Hg) 83 02/27/2013 [facility] Temperature Oral (F) 97.8 F 02/27/2013 [facility] Respitory Rate 18 02/27/2013 [facility] Systolic (mm Hg) 127 02/27/2013 [facility] Heart Rate 89 02/27/2013 [facility] Systolic (mm Hg) 141 02/27/2013 [facility] Diastolic (mm Hg) 104 02/27/2013 [facility] Respitory Rate 18 02/27/2013 [facility] Heart Rate 92 02/27/2013 [facility] Temperature Oral (F) 98.3 F 02/27/2013 [facility] Temperature Oral (F) 97.9 F 02/27/2013 [facility] Heart Rate 81 02/27/2013 [facility] Diastolic (mm Hg) 92 02/27/2013 [facility] Systolic (mm Hg) 127 02/27/2013 [facility] Respitory Rate 18 02/27/2013 [facility] Height 167.64 cm 02/25/2013 [facility] Weight 129.545 02/25/2013 [facility] Height 170.18 cm 02/25/2013 [facility] Weight 129.545 02/25/2013 [facility] Temperature Oral (F) 98.2 F 02/24/2013 [facility] Heart Rate 89 02/24/2013 [facility] Respitory Rate 18 02/24/2013 [facility] Systolic (mm Hg) 135 02/24/2013 [facility] Diastolic (mm Hg) 98 02/24/2013 [facility] Temperature Oral (F) 98.2 F 02/24/2013 [facility] Respitory Rate 18 02/24/2013 [facility] Heart Rate 99 02/24/2013 [facility] Systolic (mm Hg) 142 02/24/2013 [facility] Diastolic (mm Hg) 104 02/24/2013 [facility] Diastolic (mm Hg) 101 02/24/2013 [facility] Heart Rate 86 02/24/2013 [facility] Systolic (mm Hg) 131 02/24/2013 [facility] Respitory Rate 20 02/24/2013 [facility] Height 172.72 cm 02/24/2013 [facility] Weight 102.273 02/24/2013 [facility] Temperature Oral (F) 97.7 F 02/24/2013 [facility] Respitory Rate 20 02/01/2013 [facility] Systolic (mm Hg) 132 02/01/2013 [facility] Diastolic (mm Hg) 102 02/01/2013 [facility] Temperature Oral (F) 97.5 F 02/01/2013 [facility] Heart Rate 87 02/01/2013 [facility] Respitory Rate 19 02/01/2013 [facility] Heart Rate 87 02/01/2013 [facility] Temperature Oral (F) 97.5 F 02/01/2013 [facility] Diastolic (mm Hg) 93 02/01/2013 [facility] Systolic (mm Hg) 120 02/01/2013 [facility] Heart Rate 100 02/01/2013 [facility] Diastolic (mm Hg) 97 02/01/2013 [facility] Systolic (mm Hg) 131 02/01/2013 [facility] Respitory Rate 22 02/01/2013 [facility] Temperature Oral (F) 97.3 F 02/01/2013 [facility] Height 170.1 cm 02/01/2013 [facility] Weight 91.5 02/01/2013 [facility] Weight 129.545 02/01/2013 [facility] Height 170.18 cm 02/01/2013 [facility] Diastolic (mm Hg) 61 01/24/2013 [facility] Systolic (mm Hg) 127 01/24/2013 [facility] Respitory Rate 18 01/24/2013 [facility] Temperature Oral (F) 97.7 F 01/24/2013 [facility] Heart Rate 50 01/24/2013 [facility] Heart Rate 88 01/24/2013 [facility] Diastolic (mm Hg) 86 01/24/2013 [facility] Systolic (mm Hg) 156 01/24/2013 [facility] Respitory Rate 18 01/24/2013 [facility] Temperature Oral (F) 97.8 F 01/24/2013 [facility] Heart Rate 79 01/24/2013 [facility] Respitory Rate 16 01/24/2013 [facility] Systolic (mm Hg) 117 01/24/2013 [facility] Diastolic (mm Hg) 86 01/24/2013 [facility] Temperature Oral (F) 97.5 F 01/24/2013 [facility] Height 172.72 cm 01/22/2013 [facility] Weight 127.273 01/22/2013 [facility] Systolic (mm Hg) 117 01/15/2013 [facility] Temperature Oral (F) 96.0 F 01/15/2013 [facility] Respitory Rate 20 01/15/2013 [facility] Heart Rate 64 01/15/2013 [facility] Diastolic (mm Hg) 92 01/15/2013 [facility] Heart Rate 55 01/15/2013 [facility] Respitory Rate 18 01/15/2013 [facility] Temperature Oral (F) 96.0 F 01/15/2013 [facility] Diastolic (mm Hg) 82 01/15/2013 [facility] Systolic (mm Hg) 108 01/15/2013 [facility] Diastolic (mm Hg) 76 01/15/2013 [facility] Systolic (mm Hg) 107 01/15/2013 [facility] Respitory Rate 18 01/15/2013 [facility] Heart Rate 65 01/15/2013 [facility] Temperature Oral (F) 96.8 F 01/15/2013 [facility] Weight 105.085 01/15/2013 [facility] Height 172.72 cm 01/15/2013 [facility] Weight 90.909 01/14/2013 [facility] Height 172.72 cm 01/14/2013 [facility] Diastolic (mm Hg) 89 01/06/2013 [facility] Systolic (mm Hg) 125 01/06/2013 [facility] Temperature Oral (F) 98.0 F 01/06/2013 [facility] Heart Rate 68 01/06/2013 [facility] Respitory Rate 18 01/06/2013 [facility] Temperature Oral (F) 98.1 F 01/06/2013 [facility] Heart Rate 81 01/06/2013 [facility] [facility] [place] Systolic (mm Hg) 125 01/06/2013 [facility] [place] Respitory Rate 18 01/06/2013 [facility] [place] Diastolic (mm Hg) 91 01/06/2013 [facility] [place] Heart Rate 70 01/06/2013 [facility] [place] Temperature Oral (F) 97.9 F 01/06/2013 [facility] [place] Diastolic (mm Hg) 81 01/06/2013 [facility] [place] Systolic (mm Hg) 110 01/06/2013 [facility] [place] Respitory Rate 18 01/06/2013 [facility] [place] Weight 108.004 01/04/2013 [facility] [place] Height 172.72 cm 01/04/2013 [facility] [place] Weight 129.545 01/04/2013 [facility] [place] Height 172.72 cm 01/04/2013 [facility] [place] Respitory Rate 17 12/26/2012 [facility] Systolic (mm Hg) 132 12/26/2012 [facility] Diastolic (mm Hg) 85 12/26/2012 [facility] Respitory Rate 18 12/26/2012 [facility] Systolic (mm Hg) 111 12/26/2012 [facility] Diastolic (mm Hg) 81 12/26/2012 [facility] Systolic (mm Hg) 112 12/26/2012 [facility] Diastolic (mm Hg) 73 12/26/2012 [facility] Respitory Rate 16 12/26/2012 [facility] Heart Rate 70 12/26/2012 [facility] Heart Rate 65 12/26/2012 [facility] Temperature Oral (F) 96.3 F 12/26/2012 [facility] Temperature Oral (F) 96.2 F 12/26/2012 [facility] Heart Rate 69 12/26/2012 [facility] Temperature Oral (F) 97.3 F 12/25/2012 [facility] Weight 111.364 12/24/2012 [facility] Height 170.18 cm 12/24/2012 [facility] Weight 129.545 12/24/2012 [facility] Height 170.18 cm 12/24/2012 [facility] Heart Rate 65 10/20/2012 [facility] Temperature Oral (F) 97.0 F 10/20/2012 [facility] Systolic (mm Hg) 117 10/20/2012 [facility] Diastolic (mm Hg) 71 10/20/2012 [facility] Respitory Rate 18 10/20/2012 [facility] Heart Rate 70 10/20/2012 [facility] Diastolic (mm Hg) 57 10/20/2012 [facility] Respitory Rate 18 10/20/2012 [facility] Systolic (mm Hg) 92 10/20/2012 [facility] Temperature Oral (F) 96.9 F 10/20/2012 [facility] Heart Rate 62 10/20/2012 [facility] Temperature Oral (F) 95.8 F 10/20/2012 [facility] Respitory Rate 18 10/20/2012 [facility] Systolic (mm Hg) 97 10/20/2012 [facility] Diastolic (mm Hg) 64 10/20/2012 [facility] Weight 103.21 10/20/2012 [facility] Weight 106.676 10/18/2012 [facility] Height 172.72 cm 10/18/2012 [facility] Weight 102.727 10/18/2012 [facility] Height 167.64 cm 10/18/2012 [facility] Diastolic (mm Hg) 63 12/11/2011 [facility] Systolic (mm Hg) 93 12/11/2011 [facility] Respitory Rate 20 12/11/2011 [facility] Heart Rate 83 12/11/2011 [facility] Temperature Oral (F) 98 F 12/11/2011 [facility] Heart Rate 86 12/11/2011 [facility] Diastolic (mm Hg) 71 12/11/2011 [facility] Respitory Rate 18 12/11/2011 [facility] Systolic (mm Hg) 110 12/11/2011 [facility] Temperature Oral (F) 99.2 F 12/11/2011 [facility] Temperature Oral (F) 100.5 F 12/11/2011 [facility] Diastolic (mm Hg) 73 12/11/2011 [facility] Systolic (mm Hg) 106 12/11/2011 [facility] Heart Rate 82 12/11/2011 [facility] Respitory Rate 18 12/11/2011 [facility] Weight 105.909 12/08/2011 [facility] Height 167.64 cm 12/08/2011 [facility] Weight 131.364 05/15/2011 [facility] Height 170.18 cm 05/15/2011 [facility] Encounters Location Location Details Encounter Type Encounter Number Reason For Visit Attending Provider ADM Date DC Date Status Source [facility] Emergency [id number] JENIFFER BILLINGS 05/14/2011 05/14/2011 Discharged [facility] Inpatient [id number] FEELING ANXIOUS AND CAN'T SLEEP LYNNE HATHAWAY 12/08/2011 12/11/2011 Active [facility] Inpatient [id number] CHEST PAIN, CHF EXACERBATION BOO SHERWOOD 10/17/2012 10/20/2012 Active [facility] Inpatient [id number] BOO SHERWOOD 11/11/2012 11/12/2012 Discharged [facility] Inpatient [id number] MARYBETH REBECCA 12/24/2012 12/26/2012 Discharged [facility] OU [id number] KENAN CRANE 01/04/2013 01/06/[address] [facility] Inpatient [id number] CHEST PAIN MARYBETH MADNI 01/14/2013 01/15/2013 Active [facility] Inpatient [id number] CK GOPATHI 01/22/2013 01/24/2013 Discharged [facility] OU [id number] DEA PUCKETTHADRI 01/31/2013 02/01/[address] [facility] Emergency [id number] SCARLET WRAY 02/24/2013 02/24/[address] [facility] OU [id number] SUICIDAL IDEATION LIZZY GALEAS 02/25/2013 02/27/[address] [facility] Emergency [id number] JAIME SMITH 03/10/2013 03/10/[address] [facility] Inpatient [id number] CHEST PAIN DEBORAH XIE 04/03/2013 04/10/[address] [facility] Emergency [id number] ATGRACIELA OSEI 04/25/2013 04/25/2013 Discharged [facility] Emergency [id number] LORIN HOFFMAN 05/07/2013 05/07/2013 Discharged [facility] Emergency [id number] CHEST PAIN ANNELIESE RUBI 05/10/2013 05/10/2013 Active [facility] OBS Observation Patient [id number] Carlos Manuel Nieto 10/12/2015 10/13/2015 [facility] [id number] Jazmine Poe 12/08/2015 01/07/2016 [facility] Rec[facility]ring [id number] Jazmine Poe 01/20/2016 02/19/2016 [facility] Emergency [id number] Ceasar Condon 06/23/2016 06/23/2016 [facility] Inpatient [id number] Zac Garcia 07/24/2016 07/26/2016 [facility] Observation [id number] Sarah Rubi 09/02/2016 09/02/2016 [facility] Observation [id number] Nic Liu 09/10/2016 09/11/2016 [facility] Observation [id number] Caryn Rangelhid 11/09/2016 11/10/2016 [facility] Emergency [id number] Rajiv Myles 12/23/2016 12/23/2016 [facility] Observation [id number] Briana Kincaid 01/21/2017 01/21/2017 [facility] Observation [id number] Marybeth Moosavi 02/20/2017 02/22/2017 [facility] Observation [id number] Panchito Alvarado 03/08/2017 03/08/2017 [facility] Observation [id number] Darius Hui 06/09/2017 06/10/2017 [facility] Observation [id number] Dea Dupont 06/20/2017 06/21/2017 [facility] Emergency [id number] Rajiv Myles 09/30/2017 10/01/2017 [facility] Procedures Procedure Code Date Perfomer Comments Source Emergency department visit for the evaluation and management of a patient, which requires these 3 suarez components within the constraints imposed by the urgency of the patient's clinical condition and/or mental status: A comprehensive history; A comprehensi 42351 01/04/2013 [facility] [place] Repair of ligament of knee joint <sup>1</sup> [id number] 1left knee ligament surgery [facility] ICD - Internal cardiac defibrillator procedure<sup>1</sup> [id number] placed 2.5years ago [facility] torn ligament<sup>2</sup> [id number] left knee ligament surgery [facility] Assessment and Plan Assessment and Plan Date Source Extracted from:Title: Discharge summary Author: Sarah Rubi My Zuleyka DO Date: 03/08/17 Impression and Plan 03/08/2017 [facility] Extracted from:Title: Discharge Summary * Author: Susanna Hernandez NP MANAGER STRATEGIC DEVELOPMENT Date: 01/21/17 Patient: NELI LARSON Age: 51 years Sex: Male : 1965 Associated Diagnoses: None Author: Susanna Hernandez NP MANAGER STRATEGIC DEVELOPMENT Discharge Information date of admission - 01/20/2017 date of discharge 01/21/2017 Consults:Dr Shirley cardiology DX 1 . Acute chest pain to rule out acute coronary syndrome: Cardiac enzymes are negative, ACS ruled out. cardiology consulted, Dr. Shirley patient cleared by cardiology for discharge. 2. History of chronic atrial fibrillation on Xarelto: At present, his heart rate is stable. We will continue his home medications including heart rate controlling medications and also anticoagulation with Xarelto. 3. History of advanced congestive heart failure, systolic and diastolic, status post pacemaker and defibrillator placement 4. History of chronic kidney disease stage 3: stable. 5. History of diabetes mellitus type 2: 6. History of schizophrenia: stable. 7. hypokalemia - potassium replaced Physical Examination General: Alert and oriented. Eye: Pupils are equal, round and reactive to light. HENT: Normocephalic. Neck: Supple, Non-tender. Respiratory: Lungs are clear to auscultation, Respirations are non-labored. Cardiovascular: Normal rate, Regular rhythm. Gastrointestinal: Soft, Non-tender, Non-distended, Obese. Integumentary: Warm, Dry. Neurologic: Alert, Oriented. Psychiatric: Cooperative, Appropriate mood and affect. Hospital Course This is a 51-year-old gentleman with a past medical history of severe dilated cardiomyopathy, nonischemic, AICD placement, history of substance abuse, hypertension, chronic atrial fibrillation who came into the ER for evaluation of left-sided chest pain. In the ER patient received lorazepam as well as Nitropaste chest pain improved patient seen by pet caregiver Dr. shirley. According to cardiology chest pain may be likely due to severe dilated cardiomyopathy. Digoxin decreased to 0.125 mg once a day patient is to continue Xarelto for anticoagulation. Patient cleared by cardiology and myocardial infarction ruled out. Therefore will discharge patient home today and he is to follow-up with his pet caregiver as well as PCP. Discharge Plan Discharge patient home Follow up with PCP as well as cardiology in 1 week Activities as tolerated AHA diet Patient condition stable Addendum by Yrn Rosa MD on 01/21/2017 22:08 pt. seen and examined with MANAGER STRATEGIC DEVELOPMENT agree with above note 1. chest pain- ekg showed no acute ischemic changes. ce neg. evaluated by cardiology and ok for outpatient follow up 01/21/2017 IB[facility] Extracted from:Title: Discharge Summary * Author: Caryn Hardwick MD Date: 11/09/16 Discharge Information Date of Admission: 11/09 Date of Discharge: 11/09 Active Diagnosis During this Hospitalization: Chest pain Acute rhabdomyolysis History of chronic atrial fibrillation History of advanced congestive heart failure combined systolic and diastolic status post pacemaker and defibrillator placement stable History of for chronic kidney disease stage III History of diabetes mellitus type 2 uncontrolled History of schizophrenia Chronic Diagnosis : Please see the Past Medical History Operations and procedures : Discharge Condition: Stable Complications: None Discharge Meds: Please see the list of Discharge Medications: Discharge Follow Up: F/U Primary Care Doctor in 1 week. F/U Discharge Instructions: Please take the medications as prescribed and F/U with your doctor as instructed. Please call your doctor or Return to the ER if symptoms worsen or return. Diet : Heart healthy Activity: No restrictions Restrictions: No restrictions. Total Time Spent in discharge: 35 Minutes Discharge Plan Discharge Summary Plan Discharge Status: stable. Discharge instructions given: to patient. Discharge disposition: discharge to home. Prescriptions: reviewed. Course Improving. Education and Follow-up Counseled: patient, regarding diagnosis, regarding treatment, regarding medications. Extracted from:Title: Clinical Document Author: Caryn Hardwick MD Date: 11/09/[address] Shirley The pet caregiver and alan emanuel for the patient to be discharged tonight. Will d/c the patient Extracted from:Title: Clinical Document Author: Jackie Shirley MD Date: 11/09/16 PLAN and TREATMENT chest pain: likely due to s/p substance, cocaine abuse, (monday) he has mild chest tender had a very good dinner, feels fine now, Okay to d/c home, case d/w Dr. Hardwick Atrial Fibrillation: Rate currently controlled, continue amiodarone and ASA. Severe Nonischemic LV Systolic DCMP: [facility] 2014 revealed no CAD, current exacerbation due to tachycardia and illicit drug use. Acute on CKD: Likely due to illicit drug use. DM Type 2: Continue Rx. HTN: BP Stable. Tele: atrial with HR controlled well Less soB okay to d/c home advise to be off cocaine again , Subjective: Exp. Problem Focused History: (1-3 HPI elements, 1 ROS) # ROS: no fever, no chills Objective: Expanded Problem Focused PE Vitals and Temp: Vitals Tmp(F) Pulse BP RR SpO2 FIO2 11/09 17:13 98.8 80 125/92 17 98 --- 11/09 15:42 ---- 100 153/98 18 99 --- 11/09 12:56 97.9 70 133/93 18 98 --- 24 Hr Tmax: 98.8F (37.11c) at 11/09 17:13 Vital Signs are the last 5 in the past 48 hours. General: No acute distress. Respiratory: Lungs are clear to auscultation, Respirations are non-labored. Cardiovascular: Normal rate, Regular rhythm, No murmur, No gallop, Normal peripheral perfusion, No edema. Gastrointestinal: Soft, Non-tender, Non-distended, Normal bowel sounds, No organomegaly. Integumentary: Clean, Dry, Intact, Warm, Moist, No rash. 24hr Labs 11/09 1826 Glucose POC 75 11/09 1533 Lipase Lvl 275 Sodium Lvl 138 Potassium Lvl 3.9 Chloride Lvl 102 CO2 31 AGAP 8.9 L Glucose Lvl 143 H Creatinine Lvl 1.64 H BUN 16 B/C Ratio 10 Total Protein 8.3 Albumin Lvl 4.0 Globulin 4.3 H A/G Ratio 0.9 Calcium Lvl 8.4 L ALT 38 AST 81 H Alk Phos 118 Bili Total 0.5 eGFR 47 Troponin-I 0.03 CK MB 2.8 BNP 252 H Total CK 2494 CK MB Index See Note WBC 7.8 RBC 5.00 Hgb 15.6 Hct 46.1 MCV 92.2 MCH 31.2 H MCHC 33.8 RDW 15.3 H Platelet 206 MPV 8.0 Segs 73.9 Monocytes 9.8 Lymphocytes 14.3 L Eosinophils 1.9 Basophils 0.1 Segs-Bands # 5.8 Lymphocytes # 1.1 Monocytes # 0.8 Eosinophils # 0.1 Basophils # 0.0 Extracted from:Title: General Admission H&P * Author: Caryn Hardwick MD Date: 11/09/16 Patient: NELI LARSON Age: 51 years Sex: Male : 1965 Associated Diagnoses: None Author: Caryn Hardwick MD Chief Complaint Acute chest pain shortness of breath palpitations History of Present Illness 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 Pain is described as constant, moderate, "tightness", does not radiate, and has no exacerbating or alleviating factors. Additionally reports mild SOB and palpitations. Denies N/V, swelling, or any other symptoms. Denies LOC. Denies association of the chest pain with exertion food intake and deep breathing . Chest pain almost resolved in the ER patient has a SHx of pacemaker and defibrillator placement. Patient is currently on xarelto. Of note, patient is a smoker. He is also says he used cocaine 2 days ago he has been having a history of polysubstance abuse in the past found to have acute rhabdomyolysis We will admit the patient for chest pain rule out acute coronary syndrome at this time EKG and cardiac enzymes negative and the ER will do observation Review of Systems Constitutional: Negative except as documented in history of present illness. Eye Ear/Nose/Mouth/Throat Respiratory: Negative except as documented in history of present illness. Cardiovascular: Negative except as documented in history of present illness. Breast Gastrointestinal: Negative except as documented in history of present illness. Immunologic: Negative except as documented in history of present illness. Musculoskeletal: Negative except as documented in history of present illness. Integumentary: Negative except as documented in history of present illness. Neurologic: Negative except as documented in history of present illness. Psychiatric: Negative except as documented in history of present illness. All other systems are negative All other review of systems were obtained and pertinent positives and negatives were discussed in the history of presenting illness Health Status Allergies: Allergic Reactions (Selected) Severity Not Documented NKDA- No reactions were documented., Allergies (1) Active Reaction NKDA None Documented Current medications: (Selected) Inpatient Medications Ordered Dextrose 50% Syringe: 25 mL, IVP, PRN, PRN: Blood Glucose Results Dextrose 50% Syringe: 50 mL, IVP, PRN, PRN: Blood Glucose Results DuoNeb inhalation solution: 3 ml, INHALATION, Q6H, PRN: Respiratory Protocol Milk of Magnesia: 30 ml, PO, Q6H, PRN: Heartburn MiraLax: 17 gm, PO, Daily, PRN: Constipation Saline Flush 0.9%: 10 mL, IVP, PRN, PRN: Line Flush Saline Flush 0.9%: 10 ml, IVP, PRN, PRN: Line Flush Saline Flush 0.9%: 10 ml, IVP, Q12H Sodium Chloride 0.9% IV 1000 mL: 150 ml/hr, IV, Stop: 11/10/16 0:42:00 CDT Xarelto: 20 mg, PO, QPM acetaminophen-hydrocodone 325 mg-5 mg oral tablet: 1 tab, PO, Q4H, PRN: Pain Score 4-6 acetaminophen: 650 mg, PO, Q4H, PRN: Pain 1-3/Temp > 100.4 F aspirin 325 mg tablet, enteric coated: 325 mg, PO, Daily atorvastatin: 20 mg, PO, Bedtime codeine-[id number] mg-300 mg/5 mL oral liquid: 5 ml, PO, Q4H, PRN: Cough/Congestion famotidine: 20 mg, IVP, Q12H glucagon: 1 mg, IM, PRN, PRN: Blood Glucose Results hydrALAZINE: 10 mg, IV, Q4H, PRN: HTN insulin lispro: 1 unit, SUB-Q, Bedtime, PRN: Blood Glucose Results insulin lispro: 10 unit, SUB-Q, TID-Before Meals, PRN: Blood Glucose Results insulin lispro: 2 unit, SUB-Q, Bedtime, PRN: Blood Glucose Results insulin lispro: 2 unit, SUB-Q, TID-Before Meals, PRN: Blood Glucose Results insulin lispro: 3 unit, SUB-Q, Bedtime, PRN: Blood Glucose Results insulin lispro: 4 unit, SUB-Q, Bedtime, PRN: Blood Glucose Results insulin lispro: 4 unit, SUB-Q, TID-Before Meals, PRN: Blood Glucose Results insulin lispro: 6 unit, SUB-Q, TID-Before Meals, PRN: Blood Glucose Results insulin lispro: 8 unit, SUB-Q, TID-Before Meals, PRN: Blood Glucose Results lisinopril: 5 mg, PO, Daily morphine Sulfate: 1 mg, IVP, Q2H, PRN: Pain Score 4-6 nitroglycerin SL Tab: 0.4 mg, SL, Q5Min, PRN: Chest Pain ondansetron: 4 mg, IVP, Q4H, PRN: Nausea and Vomiting Prescriptions Prescribed carvedilol 3.125 mg oral tablet: 3.125 mg, 1 tab, PO, Q12H, 60 tab, 0 Refill(s) lisinopril 5 mg oral tablet: 5 mg, 1 tab, PO, Daily, 30 tab, 0 Refill(s) rivaroxaban 20 mg oral tablet: 20 mg, 1 tab, PO, Daily, 30 tab, 0 Refill(s) torsemide 20 mg oral tablet: 20 mg, 1 tab, PO, Daily, 30 tab, 0 Refill(s) Documented Medications Documented ARIPiprazole: 5 mg, PO, Daily, 0 Refill(s) FLUoxetine: 40 mg, PO, Daily, 0 Refill(s) Vitamin D3 50,000 intl units oral capsule: 50,000 IntlUnit, 1 cap, PO, qWeek, for 12 week, 12 cap, 0 Refill(s) glipiZIDE: 10 mg, PO, Daily, 0 Refill(s) metFORMIN: 500 mg, PO, Daily, 0 Refill(s), Medications (31) Active Scheduled: (6) aspirin 325 mg, PO, Daily atorvastatin 20 mg, PO, Bedtime famotidine 20 mg, IVP, Q12H lisinopril 5 mg, PO, Daily rivaroxaban 20 mg, PO, QPM sodium chloride 10 ml, IVP, Q12H Continuous: (1) Sodium Chloride 0.9% IV 1000 mL 1,000 mL, IV, 150 ml/hr PRN: (24) acetaminophen 650 mg, PO, Q4H acetaminophen-hydrocodone 1 tab, PO, Q4H albuterol-ipratropium 3 ml, INHALATION, Q6H codeine-guaiFENesin 5 ml, PO, Q4H Dextrose 50% in Water IV 25 mL, IVP, PRN Dextrose 50% in Water IV 50 mL, IVP, PRN glucagon 1 mg, IM, PRN hydrALAZINE 10 mg, IV, Q4H insulin lispro 2 unit, SUB-Q, TID-Before Meals insulin lispro 4 unit, SUB-Q, TID-Before Meals insulin lispro 6 unit, SUB-Q, TID-Before Meals insulin lispro 8 unit, SUB-Q, TID-Before Meals insulin lispro 10 unit, SUB-Q, TID-Before Meals insulin lispro 1 unit, SUB-Q, Bedtime insulin lispro 2 unit, SUB-Q, Bedtime insulin lispro 3 unit, SUB-Q, Bedtime insulin lispro 4 unit, SUB-Q, Bedtime magnesium hydroxide 30 ml, PO, Q6H morphine Sulfate 1 mg, IVP, Q2H nitroglycerin 0.4 mg, SL, Q5Min ondansetron 4 mg, IVP, Q4H polyethylene glycol 3350 17 gm, PO, Daily sodium chloride 10 ml, IVP, PRN sodium chloride 0.9% 10 ml flush syr BD 10 mL, IVP, PRN Problem list: All Problems [D]Anterior chest wall pain / 893130943 / Confirmed BP+ - Hypertension / 527344380 / Confirmed CHF - Congestive heart failure / 938694685 / Confirmed CHF - Congestive heart failure / 661804139 / Confirmed Depression / 944326625 / Confirmed dm / 199847187 / Confirmed Down syndrome / 02982376 / Confirmed GERD - Gastro-esophageal reflux disease / 1866545299 / Confirmed H/O: schizophrenia / 171753019 / Confirmed HTN / 401.9 / Confirmed ICD (implantable cardiac defibrillator) battery depletion / V53.32 / Confirmed NIDDM / 937438256 / Confirmed Obese build / 762266561 / Confirmed Schizophrenia / 97122301 / Confirmed Short of breath on exertion / 5923612949 / Confirmed Sleep apnea / 375608114 / Confirmed, Active Problems (16) BP+ - Hypertension CHF - Congestive heart failure CHF - Congestive heart failure Depression dm Down syndrome GERD - Gastro-esophageal reflux disease H/O: schizophrenia HTN ICD (implantable cardiac defibrillator) battery depletion NIDDM Obese build Schizophrenia Short of breath on exertion Sleep apnea [D]Anterior chest wall pain Histories Past Medical History: Active BP+ - Hypertension (956682268) CHF - Congestive heart failure (385548523) NIDDM (532385280) Obese build (473682799) Sleep apnea (636884408) GERD - Gastro-esophageal reflux disease (7050238897) ICD (implantable cardiac defibrillator) battery depletion (V53.32) Depression (276904194) HTN (401.9) dm (824490421) Schizophrenia (85344330) Resolved Cardiomyopathy (069824319): Resolved. Anxiety (11746776): Resolved. Family History: Type 2 diabetes mellitus Father Procedure history: torn ligament (SNOMED CT 792697578). Comments: 10/18/2012 04:51 - Deidre Perea RN left knee ligament surgery ICD - Internal cardiac defibrillator procedure (SNOMED CT 197984607). Comments: 01/14/2013 19:28 - Paige Salas 2.5years ago Social History Social and Psychosocial Habits Alcohol 09/02/2016 Use: Never Substance Abuse 07/24/2016 Use: Current Type: Cocaine Route Inhaled Amount uses 5x a year Tobacco 11/09/2016 Use: Former smoker Type: Cigarettes Tobacco use per day: 0 Number of years: 2 Total pack years: 2 Started [age] age: 22.0 Years Stopped at age: 23 Years Previous treatment: None Ready to change: No Concerns about tobacco use in household: No Exposure to Tobacco Smoke None Cigarette Smoking Last 365 Days No Reg Smoking Cessation Counseling No . Physical Examination VS/Measurements Measurements from flowsheet : Measurements 11/09/2016 12:59 Heparin Dosing Weight (kg) 82.39 11/09/2016 12:56 Height 170.18 cm Height Collection Method Stated Weight 106.818 kg Dosing Weight Difference Percent 5.381 % Dosing Weight Collection Method Estimated Body Surface Area 2.2471 m2 Body Mass Index 36.88 m2 , Vital Signs (last 24 hrs) Last Charted Temp Oral 98.8 DegF (NOV 09:) Heart Rate Peripheral 80 bpm (NOV 09:) Resp Rate 17 BRMIN (NOV 09:) SBP 125 mmHg (NOV 09:) DBP H 92mmHg (NOV 09:) SpO2 98 % (NOV 09:) Weight 106.81 kg (NOV 09 12:56) Height 170.18 cm (NOV 09 12:56) BMI 36.88 (NOV 09 12:56) General: Alert and oriented, No acute distress. Neck: Supple. Respiratory: Lungs are clear to auscultation, Respirations are non-labored, Symmetrical chest wall expansion, No chest wall tenderness. Cardiovascular: Normal rate, Normal peripheral perfusion, No edema. Gastrointestinal: Soft, Non-tender, Non-distended. Musculoskeletal Normal range of motion. Integumentary: Warm, [place]. Neurologic: Alert, Oriented. Psychiatric: Cooperative. Review / Management Results review: Labs (Last four charted values) WBC 7.8 (NOV 09) Hgb 15.6 (NOV 09) Hct 46.1 (NOV 09) Plt 206 (NOV 09) Na 138 (NOV 09) K 3.9 (NOV 09) CO2 31 (NOV 09) Cl 102 (NOV 09) Cr H 1.64 (NOV 09) BUN 16 (NOV 09) Glucose Random H 143 (NOV 09) Ca L 8.4 (NOV 09) Troponin 0.03 (NOV 09) CK MB 2.8 (NOV 09) Total CK 2494 (NOV 09) . Impression and Plan Chest pain rule out acute coronary syndrome at this time EKG cardiac enzymes are negative we will do serial cardiac enzymes will continue daily aspirin and statin as needed morphine oxygen Nitrostat sublingual since the patient has a history of advanced congestive heart failure and multiple risk factors we will consult Dr. Shirley the pet caregiver for further evaluation and management Acute rhabdomyolysis we will continue IV fluids recheck CK level in a.m. 1 L bolus has been given in the ER History of chronic atrial fibrillation on Xarelto at this time heart rate is a stable we will continue home medications once available and continue Xarelto History of advanced congestive heart failure combined systolic and diastolic status post pacemaker and defibrillator placement we will continue anticoagulation with Xarelto will resume home medications at this time congestive heart failure is a stable without any decompensation History of for chronic kidney disease stage III at this time stable we will monitor continue with IV fluid hydration recheck BMP in a.m. History of diabetes mellitus type 2 uncontrolled with hemoglobin A1c in August was more than 10 we will continue sliding scale insulin and resume insulin home dose once available History of schizophrenia at this time stable we will resume home meds once available Anticoagulation with Xarelto no need of further anticoagulation prophylaxis Addendum by Caryn Hardwick MD on 11/09/2016 18:15 History of cocaine abuse and he used it 2 days ago will avoid beta blockers will get stat urine drug screen 11/10/2016 [facility] Extracted from:Title: Discharge Summary * Author: Saud Cortes MD Date: 09/11/16 Discharge Plan Discharge Summary Patient Name: Neli Larson : 1965 Date of Admission: 09/09/16 Date of Discharge: 09/11/16 Attending Physician: Dr. Perdomo HPI: 51 yo M PMH HTN, DM2, nonischemic dilated cardiomyopathy EF 20%, AICD placement, A-fib, systolic CHF, cocaine abuse in the past, schizoaffective d/o, anxiety, who presented to ED for chest discomfort. Pt reports that he started experiencing cosntant tightness in the left upper chest area around 6:30pm just after eating dinner and while he was resting and listening to the radio. Pt thinks that his defibrillator went off and he felt prickly sensations. No radiation of pain. He also endorsed palpitations and diaphoresis, no nausea or vomiting. Pt tried some relaxation techniques which temporarily improved his chest discomfort. Pt has presented with similar events in the past, most recent visit was last week. Dr. Shirley was consulted last time and diagnosed pain to be due to costochondritis. Pt reports feeling more anxious recently because he has not been getting his clonazepam for the past week. Discharge Diagnoses: Atypical Chest Pain; Suicidal Ideation; Cocaine Abuse Hospital Course: Patient was admitted to observation and ACS protocol was initiated and Dr. Shirley, cardiology was consulted for possible AICD interrogation. Dr. Shirley has seen patient before for similar episodes and r/o cardiacc etiology and recent AICD interrogation also on file, cardiology signed off. Cardiac enzymes and EKGs were trended and were negative. At home psych medications were restarted. Patient's drug screen was positive for cocaine and opioids. Patient admitted to recent crack cocaine use. He endorsed desire to be transferred to inpatient psych, psych response was consulted and assessed patient, they recommended outpatient facility and provided resources to the patient. On 09/11, patient reported no suicidal ideation, homocidal ideation, visual hallucinations, auditory hallucinations. [facility] Consults: Psych Response Pertinent Studies: * Final Report * Reason For Exam Chief Complaint:chest pain that started like an hour ago with palpitations. [facility] Radiology Report EXAM: XR CHEST 1 VIEW DATE: 09/09/2016 8:38 PM CDT INDICATION: Chest pain. COMPARISON: 09/01/2016. TECHNIQUE: A single AP view of the chest was obtained. FINDINGS: A left subclavian defibrillator device is unchanged in position. There is a scarring noted within the left lung base. No focal consolidation is visualized. The cardiac silhouette is enlarged. The costophrenic recesses are sharp and without effusion. No acute osseous abnormality is noted. IMPRESSION: No acute cardiopulmonary abnormality. Condition: stable Diet: regular balanced, healthy diet Activity: as tolerated Meds: Please see home medication reconciliation Follow-up: with outpatient Psych resources. Patient Instructions: Please follow-up as above and take all medications as prescribed Recommendations for Primary Care physician: If you need any additional information regarding your patients hospital stay please call the page currency machine operator at [facility] [phone], and ask him/her to page me. Patient discussed with attending physician, Dr. Leanne Cortes MD PGY-1 MSO# [id number] Extracted from:Title: Brief Progress Note Author: Tone Cancino MD Date: 09/10/16 Patient: NELI LARSON Age: 51 years Sex: Male : 1965 Associated Diagnoses: None Saw patient this morning; patient reports chest discomfort is improved. Patient acknowledges he used cocaine and that this most likely the cause for his chest pain. Spoke with cardiology, acute chest discomfort most likely secondary to AICD firing secondary to cocaine use. No device interrogation needed at this time, as this was recently done and is most likely preventing a dangerous arrythmia. During discharge planning, the patient requested to be transferred to a drug rehab facility. At this point, he also began stating that if he goes home he will hurt himself by ingesting cocaine. He states he has a cocaine addiction and needs rehab. Patient's home psych meds restarted, abilify 5 mg qd and fluoxetine 40 mg qd. Psych response consulted. SW consulted for rehab facilities/resources. Patient sitter ordered. Keep in observation pending psych response evaluation. Patient discussed with attending, Dr. Perdomo. Bridgette Cancino M.D. PGY1, MSO [id number] Extracted from:Title: General Admission H&P * Author: Jimena Zimmerman MD Date: 09/10/16 Impression and Plan 51 yo M PMH HTN, DM2, nonischemic dilated cardiomyopathy EF 20%, AICD placement, A-fib, systolic CHF, cocaine abuse in the past, schizoaffective d/o, anxiety, who presented to ED for nonexertional chest discomfort Nonexertional chest discomfort -ACS r/o -no significant changes on EKG. 1st set of cardiac enzymes negative. -pain worsened with palpation of area overlaying AICD -trend troponins -Prior cardiac catheterization did not show evidence of CAD -Consult pts pet caregiver: Dr. Shirley for AICD interrogation -ASA, Lisinopril, carvedilol, high intensity statin, Xarelto MARY -Cr 1.56, was 1.2 on discharge last week -could be due to drug use -cont monitor Atrial fibrillation -rate is currently controlled. -restart home meds Xarelto, carvedilol Severe dilated cardiomyopathy, systolic CHF with EF 20% -Most recent echo in June showed EF 20%, severe global hypokinesis -continue home meds torsemide 20 qd DM2 -A1c 10.3% -glucose 188 on admission -start levemir 10 qhs -Low dose sliding scale insulin Hypertension -continue home medications Lisinopril and carvedilol Cocaine abuse -Pt denies drug use, but UDS positive for cocaine -social work consult FEN: heart healthy diet DVT: xarelto Dispo: observation for ACS r/o Pt seen and discussed with senior Dr. Duane Zimmerman MD PGY1 MSO# [id number] Senior Addendum: Patient examined. Agree with above. 51 yo M with nonischemic CM (EF 20%), AICD placement, chronic atrial fibrillation, cocaine abuse with last use on 09/06, DM, HTN and schizoaffective disorder presents with atypical chest pain. Patient with extensive cardiac risk factors. Admit to observation for ACS rule out. Patient currently in AFib, rate controlled with no ischemia on EKG and cardiac enzymes are negative. Start medical management with ASA, DIAMANTE, BB, statin, Xarelto. Consult patient's pet caregiver Dr. Shirley. Counseled on avoiding cocaine use. We will give levemir and SSI for uncontrolled diabetes. Patient discussed with attending, Dr. Alvarado, who agrees with the plan. Dacia Zepeda MD PGY2 MSO [id number] 09/11/2016 [facility] Extracted from:Title: Medicine H&P * Author: MaganaNic ortiz Date: 09/02/16 Impression and Plan 50-year-old man with hypertension, type 2 diabetes, chronic systolic CHF, EF of 20%, dilated cardiomyopathy, AICD status who presented to ER today due to chest pain and palpitations were started at 6 PM. Chest pain rule out ACStrend troponins. Consult patient's outpatient pet caregiver: Dr. wall in a.m. Recent echocardiogramApril 30 2 and 17EF 20%, severe global hypokinesis. Atrial fibrillationrate is currently controlled. Continue home medications including anticoagulation: Xarelto Severe dilated cardiomyopathy, systolic CHF with EF 20%continue home medications Diabetes mellitus type 2check hemoglobin A1c, start insulin sliding scale and Accu-Cheks 4 times daily Hypertensionstable, continue home medications once reconciled History of cocaine abuse Patient is full code DVT prophylaxis: SCDs, ambulation 09/02/2016 [facility] Extracted from:Title: Discharge Summary * Author: MaganaNic ortiz Date: 07/26/16 Discharge Information Admit date: July 23, 2016 Discharge date: July 26, 2016 at 10:35 Total time spent on discharge: 31 minutes Discharge diagnoses: Chest Pain Defibrillator charge Afib with RVR Acute renal failure AGMA - resolved Hypokalemia Hypophosphatemia H/O chronic systolic CHF / ICMP EF 20% s/p AICD placement Rhabdomyolysis -resolved Transaminitis - likely 2/2 rhabdomyolysis, monitor LFT's H/O cocaine abuse - pt has been counseled to refrain from drug abuse H/O HTN - currently hypotensive, hold BP meds for now Hypotension- resolved H/O DMII - improving, hold metformin for now due to ARF, c/w glipizide, c/w accucheks and SSI coverage H/O HLD Consulting physicians: Cardiology and Nephrology Procedures: none History and Hospital Course: 50-year-old man with high blood pressure, type 2 diabetes, chronic systolic CHF, EF of 20%, dilated cardiomyopathy who was brought by EMS to the emergency room for evaluation after he had called with complaint about his AICD discharging and shocking him. Patient reports that he had been in an argument with his family member and that was when he started having the chest pain, and the next thing he remembered was his defibrillator going off multiple times. The patient also reports palpitations with irregular heartbeat. Patient reports chest pain, which is dull, widespread all over the chest. He describes shortness of breath as well. He denies any diaphoresis, denies any nausea or vomiting. The patient reports that he had been smoking cocaine pretty much over the weekend and that was the source of disagreement with his family members. In any case, on arrival here, his initial diagnostics did not reveal any changes in his EKG different from before. He did have atrial fibrillation with rapid ventricular rate. He did not have any acute ST-T wave changes. His troponins were pretty much undetectable. His chest x-ray did not show any pulmonary edema. However, the patient was in acute renal failure with a creatinine of over 3; from about a month ago, his creatinine was within normal limits. He also had a total CK of 14,000 with a BNP of 881. His cocaine was positive again in the urine drug screen. He did have a leukocytosis of 16.2 with marginal bandemia but I think is likely to intravasuclar contraction. The patient was given Cardizem intravenously secondary to the atrial fibrillation. His rate gradually came down and plan was for the patient to be admitted to inpatient status to allow for additional diagnostic evaluation and management to be completed. An emergent call to his AICD company was done and his AICD was interrogated in the emergency room. No defibrillator discharges were actually noted. The patient just had atrial fibrillation and the device did try to override the patient's atrial fibrillation. Patient seen and evaluated by cardiology Dr. Shirley, device interrogated. Medical management continued, heart rate controlled. Pt also seen by nephrology service, rhabdo resolved with Aggressive IVF, CK downtrended, kidney injury resolved. Pt cleared for discharged. Condition: Stable Disposition: Home Medications: Refer to the discharge med rec: arirprazole, atorvastatin, benztropine, corge, clonazeapm, glipizide, lisinopril, metformin, metolazone, pantoprazole, rivaroxaban, torsemide, ziprasidone, zolpidem Instructions: Activity: No restrictions. Follow-up: PCP in 1 week. Cardiology in 1 week Extracted from:Title: Clinical Document Author: Jackie Shirley MD Date: 07/26/16 PLAN and TREATMENT Atrial Fibrillation: Rate currently controlled, continue amiodarone and ASA. Severe Nonischemic LV Systolic DCMP: [facility] 2014 revealed no CAD, current exacerbation due to tachycardia and illicit drug use. Rhabdomyolysis: Due to cocaine use. Acute on CKD: Likely due to illicit drug use. Cocaine Use: Pt (+) cor cocaine on admission, continue supportive Rx. Evidence of significant hemodynamic impact with tachycardia on admission, ARF, and rhabdomyolysis. DM Type 2: Continue Rx. HTN: BP Stable. Tele: atrial with HR controlled well Less soB okay to d/c home, patient can drink fluid at home, Subjective: Exp. Problem Focused History: (1-3 HPI elements, 1 ROS) # ROS: no fever, no chills Objective: Expanded Problem Focused PE Vitals and Temp: Vitals Tmp(F) Pulse BP RR SpO2 FIO2 07/26 07:12 97.5 61 105/62 18 --- --- 07/26 04:38 97.5 75 102/71 18 --- --- 07/26 00:25 97.6 94 107/78 18 --- --- 07/25 20:52 ---- --- ----- -- 97 --- 07/25 15:52 97.5 77 120/84 16 --- --- 24 Hr Tmax: 97.6F (36.44c) at 07/26 00:25 Vital Signs are the last 5 in the past 48 hours. General: No acute distress. Respiratory: Lungs are clear to auscultation, Respirations are non-labored. Cardiovascular: Normal rate, Regular rhythm, No murmur, No gallop, Normal peripheral perfusion, No edema. Gastrointestinal: Soft, Non-tender, Non-distended, Normal bowel sounds, No organomegaly. Integumentary: Clean, Dry, Intact, Warm, Moist, No rash. 24hr Labs 07/26 0722 Glucose POC 155 H 07/26 0545 Sodium Lvl 140 Potassium Lvl 4.5 Chloride Lvl 110 H CO2 23 L AGAP 11.5 Glucose Lvl 131 H Creatinine Lvl 1.10 BUN 21 B/C Ratio 19 Total Protein 6.4 Albumin Lvl 3.3 L Globulin 3.1 A/G Ratio 1.1 Calcium Lvl 8.2 L ALT 109 H AST 182 H Alk Phos 109 Bili Total 0.4 eGFR 77 Magnesium Lvl 2.2 CK MB 12.1 H Total CK 3802 H WBC 7.3 RBC 4.89 Hgb 14.9 Hct 44.5 MCV 90.9 MCH 30.4 MCHC 33.5 RDW 13.2 Platelet 139 MPV 9.0 Segs 68.5 Monocytes 7.9 Lymphocytes 21.0 Eosinophils 2.3 Basophils 0.3 Segs-Bands # 5.0 Lymphocytes # 1.5 Monocytes # 0.6 Eosinophils # 0.2 Basophils # 0.0 PT 14.6 INR 1.12 07/26 0510 Glucose POC 138 H 07/25 1955 Glucose POC 327 H 07/25 1613 Glucose POC 279 H 07/25 1227 Glucose POC 335 H 07/25 0741 Glucose POC 207 H 07/26/2016 [facility] Extracted from:Title: Discharge Summary * Author: Junie Avila NP Date: 10/13/15 Patient: NELI LARSON Age: 50 years Sex: Male : 1965 Associated Diagnoses: None Author: Junie Avila NP Attending Physician: Carlos Manuel Naranjo Date of admission: 10/12/2015 Date of discharge to home: 10/13/2015 Admitting diagnosis: 1. Atypical chest pain possible secondary to cocaine abuse 2. Systolic congestive heart failure-stable 3. Chronic renal failure-stable 4. Hypokalemia 5. Hypertension-stable 6. Type 2 diabetes mellitus-stable 7. History of schizophrenia-stable 8. History of GERD-stable 9. Obstructive sleep apnea-stable Discharge diagnosis: 1. Atypical chest pain secondary to cocaine abuse-resolved 2. Systolic congestive heart failure stable 3. Chronic renal failure-stable 4. Hypokalemia-resolved 5. Hypertension-stable 6. Type 2 diabetes mellitus-stable 7. History of schizophrenia-stable 8. History of GERD-stable 9. Obstructive sleep apnea-stable 10. Substance abuse- Counseling provided Discharge condition: Stable Consults: Cardiology consult with Dr. Shirley Procedures: None Results Review General results Labs (Last four charted values) WBC 6.4 (OCT 12) H 11.5 (OCT 11) Hgb 14.5 (OCT 12) 15.2 (OCT 11) Hct 42.3 (OCT 12) 45.3 (OCT 11) Plt L 131 (OCT 12) 181 (OCT 11) Na 141 (OCT 12) H 146 (OCT 11) K 4.1 (OCT 12) C 2.9 (OCT 11) CO2 29 (OCT 12) 25 (OCT 11) Cl 106 (OCT 12) H 114 (OCT 11) Cr 1.40 (OCT 12) 1.30 (OCT 11) BUN H 30 (OCT 12) H 25 (OCT 11) Glucose Random H 206 (OCT 12) H 121 (OCT 11) Mg 2.1 (OCT 12) Ca 8.9 (OCT 12) C 6.5 (OCT 11) PT H 23.0 (OCT 11) INR H 2.00 (OCT 11) PTT H 36.4 (OCT 11) Troponin 0.04 (OCT 12) 0.04 (OCT 11) CK MB 2.3 (OCT 12) 2.2 (OCT 12) 1.8 (OCT 11) Total CK H 499 (OCT 12) H 578 (OCT 12) H 549 (OCT 11) Physical Examination VS/Measurements Vital Signs (last 24 hrs) Last Charted Temp Oral 97.4 DegF (OCT 12 08:10) Heart Rate Peripheral 77 bpm (OCT 12 08:10) Resp Rate 18 BRMIN (OCT 12 08:10) SBP 132 mmHg (OCT 12 08:10) DBP H 91mmHg (OCT 12 08:10) SpO2 99 % (OCT 12 08:10) Weight 95.455 kg (OCT 11 17:51) Height 170.18 cm (OCT 11 17:51) BMI 32.96 (OCT 11 17:51) General: Alert and oriented, No acute distress. Eye: Pupils are equal, round and reactive to light, Extraocular movements are intact. HENT: Normocephalic, Normal hearing, No pharyngeal erythema. Neck: Supple, No jugular venous distention. Respiratory: Lungs are clear to auscultation, Respirations are non-labored, Breath sounds are equal, Symmetrical chest wall expansion. Cardiovascular: Normal rate, Regular rhythm, No murmur, No gallop, Good pulses equal in all extremities, Normal peripheral perfusion, No edema. Gastrointestinal: Soft, Non-tender, Non-distended, Normal bowel sounds. Musculoskeletal Normal range of motion. Normal strength. No tenderness. No swelling. No deformity. Normal gait. Integumentary: Warm. Neurologic: Alert, Oriented, Normal sensory, Normal motor function, No focal deficits. Psychiatric: Cooperative, Appropriate mood and affect, Normal judgment, Non-suicidal. Hospital Course The patient is a 50-year-old male with a history of systolic CHF, cardiomyopathy, pacemaker and defibrillator, hypertension, diabetes type 2, and schizoaffective disorder who presented to the emergency room for midsternal chest pain with the dizziness. Patient also reported using cocaine the night before starting the symptoms. During the short hospital stay EKG and serial cardiac enzymes and an echocardiogram were obtained . Ekg showed atrial fibillation and non-specific ST/T wave changes and cardiac enzymes were normal except elevated ck. Interrogation of AICD/pacemaker was also done during the st ay. A cardiology consult with was also requested and seen and cleared for discharge. Patient had a left heart catheterization in 2012 and showed normal coronal arterial structures and no stress test is needed at this time per cardiology. Patient also found to have hypokalemia in the emergency room and was treated with oral potassium. Substance abuse counseling was provided during the stay. Patient needs to follow-up with pcp as needed. Discharge Plan Discharge Summary Plan Prescriptions: Please see home medication reconciliation list. Discharge time spent: 30 min Addendum by Yrn Rosa MD on 10/14/2015 11:13 pt. seen and examined agree with [employer] Agree with above note. Extracted from:Title: Clinical Document Author: Jackie Shirley MD Date: 10/13/15 IMPRESSION: 1. Atrial fibrillation. 2. Severe nonischemic dilated cardiomyopathy, AICD placement. 3. [id number] systolic congestive heart failure. 4. Cocaine abuse. 5. Acute renal failure. TREATMENT PLAN: chest pain could be due to multifactorial. I did a left heart cardiac catheterization on him in 2012. It showed normal coronary arterial structures. I think his chest pain and shortness of breath could be related to recent cocaine abuse, in addition to the baseline severe dilated cardiomyopathy. I would like to have an echocardiogram to evaluate left ventricular systolic function. No stress test at this moment. Overnight, feels better, had a good breakfast, mild epigastric discomfort Okay to d/c home to Cardiac standpoint, Subjective: Exp. Problem Focused History: (1-3 HPI elements, 1 ROS) # ROS: no fever, no chills Objective: Expanded Problem Focused PE Vitals and Temp: Vitals Tmp(F) Pulse BP RR SpO2 FIO2 10/12 04:34 97.9 83 117/87 12 100 3.0L/m 10/12 00:08 97.9 85 110/70 16 98 --- 10/11 21:44 97.4 73 121/85 13 100 3.0L/m 10/11 21:21 97.6 92 119/94 18 98 3.0L/m 10/11 20:10 ---- 94 125/90 21 96 3.0L/m 24 Hr Tmax: 98.4F (36.89c) at 10/11 19:31 Vital Signs are the last 5 in the past 48 hours. General: No acute distress. Respiratory: Lungs are clear to auscultation, Respirations are non-labored. Cardiovascular: Normal rate, Regular rhythm, No murmur, No gallop, Normal peripheral perfusion, No edema. Gastrointestinal: Soft, Non-tender, Non-distended, Normal bowel sounds, No organomegaly. Integumentary: Clean, Dry, Intact, Warm, Moist, No rash. 24hr Labs 10/12 0800 Glucose POC 184 H 10/12 0552 Chol 106 Trig 170 H HDL 30 L LDL (Calculated) 42 VLDL 34 CHD Risk 3.53 L Magnesium Lvl 2.1 Glucose Lvl 206 H BUN 30 H Creatinine Lvl 1.40 Sodium Lvl 141 Potassium Lvl 4.1 Chloride Lvl 106 CO2 29 AGAP 10.1 Calcium Lvl 8.9 eGFR 58 Total CK 499 H CK MB 2.3 WBC 6.4 RBC 4.73 Hgb 14.5 Hct 42.3 MCV 89.4 MCH 30.6 MCHC 34.2 RDW 13.5 Platelet 131 L MPV 8.5 Segs 67.0 Monocytes 11.9 Lymphocytes 18.0 L Eosinophils 2.6 Basophils 0.5 Segs-Bands # 4.3 Lymphocytes # 1.2 Monocytes # 0.8 Eosinophils # 0.2 10/12 0052 Total CK 578 H Troponin-I 0.04 CK MB 2.2 10/11 2201 Glucose POC 146 H 10/11 1825 Total CK 549 H Troponin-I 0.04 CK MB 1.8 CK MB Index 0.3 Sodium Lvl 146 H Potassium Lvl 2.9 C Chloride Lvl 114 H CO2 25 AGAP 9.9 L Glucose Lvl 121 H Creatinine Lvl 1.30 BUN 25 H B/C Ratio 19 Total Protein 5.6 L Albumin Lvl 3.2 L Globulin 2.4 A/G Ratio 1.3 Calcium Lvl 6.5 C ALT 22 AST 17 Alk Phos 80 Bili Total 0.7 eGFR 63 BNP 439 H WBC 11.5 H RBC 5.06 Hgb 15.2 Hct 45.3 MCV 89.5 MCH 29.9 MCHC 33.5 RDW 13.4 Platelet 181 MPV 8.3 Segs 74.0 Monocytes 10.8 Lymphocytes 14.5 L Eosinophils 0.6 Basophils 0.1 Segs-Bands # 8.5 H Lymphocytes # 1.7 Monocytes # 1.2 H Eosinophils # 0.1 Basophils # 0.0 PT 23.0 H INR 2.00 H PTT 36.4 H Extracted from:Title: Clinical Document Author: Jigna Swift NP Date: 10/12/15 History and Physical Chief Complaint: Chest pain History of Present Illness The patient is a 50 year old with history of systolic CHF, cardiomyopathy, pacemaker and defibrillator, hypertension, diabetes type 2 manage with po medications, and schizoaffective controlled with medications. Patient was brought to the emergency department at [facility] for midsternal chest pain that is described as a chest pressure that is aggravated by a exertion and relieved with rest. According to patient he has a pacemaker and he had a feeling that the pacemaker was squeezing his chest out, which made it very difficult to breathe. Patient also reports using coccaine last night, which was the first time in 10 years since he has quitted to use of illicits drugs. States, he didn't have any chest pain at the time he was using it until later this evening. Patient verbalizes experiencing dizziness with chest pain, but dinies, diaphoressis, palpitations, nausea, and vomiting; however, he felt his stomach getting distended like he is accumulated fluid in the abdomen. Fearing he is having a heart attack, he called EMS that he can be transferred to the hospital for further evaluation, and treatment. States that he had some releif with nitroglycerin given by EMS during transprotation. He was seen and evaluated by the ED MD before he was transferred to this unit. At this time, he rate his chest pain as 2 out 10. He will be admitted into observation unit for further evaluation and monitoring. Condition stable. Past Medical History 1. Hypertension. 2. Type 2 diabetes mellitus. 3. Schizophrenia. 4. GERD. 5. Obstructive sleep apnea. 6. dilated cardiomyopathy. 7. Pulmonary emboli. 8. Systolic congestive heart failure. Past Surgical History 1. AICD placements. 2. Cardiac catheterization. Family History Father had coronary artery disease as well as diabetes mellitus. Social History Patient denies tobacco use, denies alcohol use, but reports using coccainelast night first time after 10 years recession. Lives in prison. Review Of Systems Gen. awake alert and oriented deny fever, no chills HEENT: No headaches no trauma to the head, bilateral eye clear no injection, Denies earache, and discharge, nasal passages are clear, no swelling, no drainage. No sore, throat, no neck pain Respiratory system: No wheezing no cough no sputum production no hemoptysis Cardiovascular system:Chest pressure aggravated by exertion, relief with rest. No radiation. Gastrointestinal system: Patient denies abdominal pain nausea vomiting diarrhea Musculoskeletal: Denies weakness, no joint pain no deformities Psychiatric:No signs of depression, no suicidal ideation, positive mood. Schizoaffective disorder. Neurological: Patient denies numbness and tingling no peripheral pain Endocrine: Patient denying intolerance to cool any heat temperature no diabetic thyroid problem Physical Exam Vitals Tmp(F) Pulse BP RR SpO2 FIO2 10/11 21:44 97.4 73 121/85 13 100 3.0L/m 07/18 21:21 97.6 92 119/94 18 98 3.0L/m 10/11 20:10 ---- 94 125/90 21 96 3.0L/m 10/11 19:31 98.4 88 132/98 17 98 3.0L/m 10/11 17:51 98.1 66 123/72 18 96 --- General: The patient is a 50 year old male, well groomed, well developed for age group. She's able to participate in her plan of treatment. HEENT: Head is atraumatic normocephalic. Eyes: conjunctivae clear, no icterus, no injection. Ears: No earaches, no discharge. Neck: supple, no thyroidomegally, no JVD. Throat: No swellen tonsils, no exudates. Skin: Intact, no rash, no itc, no lumps. Cardiovascular: Regular, rate, and rhythms. No murmurs, no gallops. Respiratory: Normal respiratory effort, no wheezing. CTAB. Abdomen: Distended, non- tender, firm. Positive BS x 4 quadrants. Extremities: No joints pain, normal ROM to all extremities. Phychiatric: AAO x 3, positive mood, no signs of depression Neurologic: Normal strenght, normal gait, CN 5/5, no numbness, no tingling Labs [facility]* A/G Ratio: 1.3 10/12/15 AGAP: 9.9 Low 10/12/15 Albumin Lvl: 3.2 Low 10/12/15 Alk Phos: 80 10/12/15 ALT: 22 10/12/15 AST: 17 10/12/15 B/C Ratio: 19 10/12/15 Basophils: 0.1 10/12/15 Basophils #: 0.0 10/12/15 Bili Total: 0.7 10/12/15 BNP: 439 High 10/12/15 BUN: 25 High 10/12/15 Calcium Lvl: 6.5 Critical 10/12/15 Chloride Lvl: 114 High 10/12/15 CK MB: 1.8 10/12/15 CK MB Index: 0.3 10/12/15 CO2: 25 10/12/15 Creatinine Lvl: 1.30 10/12/15 eGFR: 63 10/12/15 Eosinophils: 0.6 10/12/15 Eosinophils #: 0.1 10/12/15 Globulin: 2.4 10/12/15 Glucose Lvl: 121 High 10/12/15 Glucose POC: 146 High 10/12/15 Hct: 45.3 10/12/15 Hgb: 15.2 10/12/15 INR: 2.00 High 10/12/15 Lymphocytes: 14.5 Low 10/12/15 Lymphocytes #: 1.7 10/12/15 MCH: 29.9 10/12/15 MCHC: 33.5 10/12/15 MCV: 89.5 10/12/15 Monocytes: 10.8 10/12/15 Monocytes #: 1.2 High 10/12/15 MPV: 8.3 10/12/15 Platelet: 181 10/12/15 Potassium Lvl: 2.9 Critical 10/12/15 PT: 23.0 High 10/12/15 PTT: 36.4 High 10/12/15 RBC: 5.06 10/12/15 RDW: 13.4 10/12/15 Segs: 74.0 10/12/15 Segs-Bands #: 8.5 High 10/12/15 Sodium Lvl: 146 High 10/12/15 Total CK: 549 High 10/12/15 Total Protein: 5.6 Low 10/12/15 Troponin-I: 0.04 10/12/15 WBC: 11.5 High 10/12/15 Radiology Report Chest 1view DX 10/12/15 19:05:37 IMPRESSION: The lungs are underinflated. The intracardiac pacer device is unchanged. The cardiac silhouette appears prominent, grossly without radiographic evidence of acute congestive failure. No consolidation, pleural effusion, or pneumothorax are visible. ASSESSMENT AND PLAN: 1. Atypical chest pain possible secondary to coccaine abuse. We will admit patient on observation unit for evaluation. Interrogation of AIDC/pacemaker completed. Will continue serial cardiac emzymes. Will continue home coreg. p.r.n nitroglycerine SL. p.r.n. oxygen, and morphine for pain. Low dose ASA, ACEI. and continue coreg. Will consult pet caregiver Dr. Shirley and will await further recommendations from cardiology as well. 2. Systolic congestive heart failure. Stable. Last TTE was done in March, 2015 shown ejection fraction less than 55%-60%. We will continue with home medications. The patient has an AICD in place. 3. Chronic renal failure. Stable. Will monitor with labs. 4. Hypokalemia. Will replaced electrolytes, and repeat potassium level in am. 5. Hypertension. Stable. Continue home medications. 6. Type 2 diabetes mellitus. Stable. Will start the patient on a sliding scale insulin. 7. History of schizophrenia, stable. Continue home medication 8. History of gastroesophageal reflux disease, stable. Continue home medication. 9. Obstructive sleep apnea. Stable. Will monitor for respiratory distress. Follow up outpatient. 10. DVT prophylaxis. SCDs. Ambulation. Lovenox 40 mg Subq every 24 hours. JESSICA score of 3 which correlates to 13% risk for severe or recurrent ischemic requiring urgent revascularization. Further recommendations per Cardiology evaluation in AM. Patient seen and examined. Agree with the above assessment and plan. 10/13/2015 [facility] Plan of Care No Data Provided for This Section Social History Social History Date Source Social History TypeResponse Substance Abuse Use: Past. Type: Cocaine. Recreational Drug Route: Inhaled. Alcohol Never Smoking Status Former smoker; Type: Cigarettes; Previous treatment: None; Ready to change: No; Concerns about tobacco use in household: No; Exposure to Tobacco Smoke None; Cigarette Smoking Last 365 Days No; Reg Smoking Cessation Counseling No; Tobacco use per day: 0; Number of years: 2; Total pack years: 2; Started at age: [age]; Stopped at age: 23; entered on: 09/30/17 01/21/2017 [facility] Social History TypeResponse Substance Abuse Use: Past. Type: Cocaine. Recreational Drug Route: Inhaled. Alcohol Never Smoking Status Former smoker; Exposure to Tobacco Smoke None; Cigarette Smoking Last 365 Days No; Reg Smoking Cessation Counseling No 01/21/2017 [facility] Family History No Data Provided for This Section Advance Directives No Data Provided for This Section Functional Status No Data Provided for This Section
--- OUTSIDE RECORDS SUMMARY | 2018-12-19 01:21 | XMS REPORT | CCD ---
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 Name Role Phone Elian Crane CP Allergies, Adverse Reactions, Alerts Substance Reaction Status NKDA Active Problem List Condition Effective Dates Status [D]Anterior chest wall pain 12/07/2011 Active BP+ - Hypertension Resolved CHF - Congestive heart failure Active CHF - Congestive heart failure Resolved Depression Resolved dm Active Down syndrome Active GERD - Gastro-esophageal reflux disease Resolved H/O: schizophrenia Active HTN Active 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 NIDDM Resolved Obese build Resolved Sleep apnea Active Medications Medication Instructions Start Date End Date Status metoprolol 5 mg/5 ml 5 mg, 5 mL, Route: IVP, Drug form: 01/04/2013 01/04/2013 Completed INJ INJ, ONCE, Dosing Weight 129.545, kg, Priority: STAT, Start date: 01/04/13 16:31:00, Stop date: 01/04/13 16:31:00(Same as: Lopressor) ondansetron 4 mg, 2 mL, Route: IVP, Drug form: 01/04/2013 01/06/2013 Discontinued INJ, Q8H, Dosing Weight 129.545, kg, PRN Nausea & Vomiting, Start date: 01/04/13 17:32:00, Duration: 30 day, Stop date: 02/03/13 17:31:00(Same as: Zofran) docusate 100 mg, 1 cap, Route: PO, Drug 01/04/2013 01/06/2013 Discontinued form: CAP, BID, Dosing Weight 129.545, kg, PRN Constipation, Start date: 01/04/13 17:32:00, Duration: 30 day, Stop date: 02/03/13 17:31:00(Same as: Colace) (Do Not Crush) acetaminophen 650 mg, 20.3 mL, Route: PO, Drug 01/04/2013 01/06/2013 Discontinued form: LIQ, Q4H, Dosing Weight 129.545, kg, PRN Pain 1-3/Temp > 100.4 F, Start date: 01/04/13 17:32:00, Duration: 30 day, Stop date: 02/03/13 17:31:00Max xiaclllsvhjee=7890ft/day (4 gm/day). (Same as: Tylenol) enalapril 1.25 mg, 1 mL, Route: IVP, Drug 01/04/2013 01/04/2013 Completed form: INJ, ONCE, Dosing Weight 129.545, kg, Priority: STAT, Start date: 01/04/13 16:30:00, Stop date: 01/04/13 16:30:00(Same as: Vasotec-IV) Remeron 15 mg oral 15 mg, 1 tab, PO, Bedtime, 30 tab, 01/04/2013 01/06/2013 Discontinued tablet Substitution Allowed, TAB cyanocobalamin 5 microgram, Route: PO, Drug form: 01/05/2013 01/04/2013 Deleted TAB, Daily, Dosing Weight 108.004, kg, Start date: 01/05/13 9:00:00, Duration: 30 day, Stop date: 02/03/13 9:00:00 clonazepam 2 mg, 2 tab, Route: PO, Drug form: 01/04/2013 01/06/2013 Discontinued TAB, Bedtime, Dosing Weight 108.004, kg, Start date: 01/04/13 21:00:00, Duration: 30 day, Stop date: 02/02/13 21:00:00(Same As: Klonopin) lisinopril 40 mg, 2 tab, Route: PO, Drug form: 01/05/2013 01/06/2013 Discontinued TAB, Daily, Dosing Weight 108.004, kg, Start date: 01/05/13 9:00:00, Duration: 30 day, Stop date: 02/03/13 9:00:00(Same as: Prinivil, Zestril) Geodon 20 mg, 1 cap, Route: PO, Drug form: 01/04/2013 01/06/2013 Discontinued CAP, Bedtime, Dosing Weight 108.004, kg, Start date: 01/04/13 21:00:00, Duration: 30 day, Stop date: 02/02/13 21:00:00(Same As: Geodon)Give with Food Remeron 15 mg, 1 tab, Route: PO, Drug form: 01/04/2013 01/06/2013 Discontinued TAB, Bedtime, Dosing Weight 108.004, kg, Start date: 01/04/13 21:00:00, Duration: 30 day, Stop date: 02/02/13 21:00:00(Same as:Remeron) Geodon 20 mg oral 20 mg, 1 cap, PO, Bedtime, with 01/04/2013 01/06/2013 Discontinued capsule food, 180 cap, Substitution Allowed, CAP with food Vitamin B12 1,000 microgram, 1 tab, Route: PO, 01/05/2013 01/06/2013 Discontinued Drug form: TAB, Daily, Start date: 01/05/13 9:00:00, Duration: 30 day, Stop date: 02/03/13 9:00:00(Same As: Vitamin B-12) insulin regular 100 5 unit, 0.05 mL, Route: SUB-Q, Drug 01/05/2013 01/06/2013 Discontinued units/mL human form: SOLN, TID-Before Meals, PRN recombinant Blood Glucose Results, Start date: 01/05/13 20:10:00, Duration: 30 day, Stop date: 02/04/13 20:09:00(Same as: Humulin R) Roll in palms of hands gently; Do not shake vigorously. "single patient use only"(Restricted to patients requiring a dose > 60 units) Stable for 28 days at room temperatureExpires in days from Date insulin regular 100 4 unit, 0.04 mL, Route: SUB-Q, Drug 01/05/2013 01/06/2013 Discontinued units/mL human form: SOLN, TID-Before Meals, PRN recombinant Blood Glucose Results, Start date: 01/05/13 20:10:00, Duration: 30 day, Stop date: 02/04/13 20:09:00(Same as: Humulin R) Roll in palms of hands gently; Do not shake vigorously. "single patient use only"(Restricted to patients requiring a dose > 60 units) Stable for 28 days at room temperatureExpires in days from Date insulin regular 100 3 unit, 0.03 mL, Route: SUB-Q, Drug 01/05/2013 01/06/2013 Discontinued units/mL human form: SOLN, TID-Before Meals, PRN recombinant Blood Glucose Results, Start date: 01/05/13 20:10:00, Duration: 30 day, Stop date: 02/04/13 20:09:00(Same as: Humulin R) Roll in palms of hands gently; Do not shake vigorously. "single patient use only"(Restricted to patients requiring a dose > 60 units) Stable for 28 days at room temperatureExpires in days from Date furosemide 40 mg, 4 mL, Route: IVP, Drug form: 01/04/2013 01/06/2013 Discontinued INJ, Q8H, Dosing Weight 129.545, kg, Priority: Routine, Start date: 01/04/13 23:00:00, Duration: 30 day, Stop date: 02/03/13 15:00:00(Same as: Lasix) insulin regular 100 2 unit, 0.02 mL, Route: SUB-Q, Drug 01/05/2013 01/06/2013 Discontinued units/mL human form: SOLN, TID-Before Meals, PRN recombinant Blood Glucose Results, Start date: 01/05/13 20:10:00, Duration: 30 day, Stop date: 02/04/13 20:09:00(Same as: Humulin R) Roll in palms of hands gently; Do not shake vigorously. "single patient use only"(Restricted to patients requiring a dose > 60 units) Stable for 28 days at room temperatureExpires in days from Date insulin regular 100 1 unit, 0.01 mL, Route: SUB-Q, Drug 01/05/2013 01/06/2013 Discontinued units/mL human form: SOLN, TID-Before Meals, PRN recombinant Blood Glucose Results, Start date: 01/05/13 20:10:00, Duration: 30 day, Stop date: 02/04/13 20:09:00(Same as: Humulin R) Roll in palms of hands gently; Do not shake vigorously. "single patient use only"(Restricted to patients requiring a dose > 60 units) Stable for 28 days at room temperatureExpires in days from Date furosemide 40 mg 40 mg, 1 tab, PO, Daily, 30 tab, 01/06/2013 Ordered oral tablet Substitution Allowed, TAB aspirin 81 mg, 1 tab, Route: PO, Drug form: 01/05/2013 01/06/2013 Discontinued ECTAB, Daily, Dosing Weight 108.004, kg, Start date: 01/05/13 9:00:00, Duration: 30 day, Stop date: 02/03/13 9:00:00Do not crush or chew.(Same As: Ecotrin) furosemide 40 mg, 4 mL, Route: IVP, Drug form: 01/04/2013 01/04/2013 Completed INJ, ONCE, Dosing Weight 129.545, kg, Priority: STAT, Start date: 01/04/13 14:35:00, Stop date: 01/04/13 14:35:00(Same as: Lasix) simethicone 40 mg, 0.5 tab, Route: PO, Drug 01/06/2013 01/06/2013 Discontinued form: CHEWTAB, Q6H, Dosing Weight 108.004, kg, PRN Gas, Start date: 01/06/13 13:23:00, Duration: 30 day, Stop date: 02/05/13 13:22:00(Same as: Mylicon) hydromorphone 1 mg, 1 mL, Route: IVP, Drug form: 01/04/2013 01/04/2013 Completed INJ, ONCE, Dosing Weight 129.545, kg, Priority: STAT, Start date: 01/04/13 13:00:00, Stop date: 01/04/13 13:00:00Same as: Dilaudid influenza virus 0.5 ml, Route: IM, Drug Form: SUSP, 12/25/2012 12/25/2012 Completed vaccine, inactivated Start date: 12/25/12 9:00:00, Stop date: 12/25/12 9:00:00 carvedilol 3.125 mg 3.125 mg, 1 tab, PO, Q12H, 60 tab, 01/06/2013 Ordered oral tablet Substitution Allowed, TAB Aspirin Low Dose 81 81 mg, 1 tab, PO, Daily, 30 tab, 01/06/2013 Ordered mg oral tablet Substitution Allowed, TAB Remeron 15 mg oral 15 mg, 1 tab, PO, Bedtime, 14 tab, 01/06/2013 Ordered tablet Substitution Allowed, TAB Dextrose 50% in 25 mL, Route: IVP, Start date: 01/05/2013 01/06/2013 Discontinued Water IV 01/05/13 20:10:00, Duration: 30 day, Stop date: 02/04/13 19:09:00, PRN Blood Glucose Results Dextrose 50% in 50 mL, Route: IVP, Start date: 01/05/2013 01/06/2013 Discontinued Water IV 01/05/13 20:09:00, Duration: 30 day, Stop date: 02/04/13 19:08:00, PRN Blood Glucose Results Geodon 20 mg oral 20 mg, 1 cap, PO, Bedtime, with 01/06/2013 Ordered capsule food, 14 cap, Substitution Allowed, CAP with food lisinopril 40 mg 40 mg, 1 tab, PO, Daily, 14 tab, 01/06/2013 Ordered oral tablet Substitution Allowed, TAB clonazepam 2 mg oral 2 mg, 1 tab, PO, Bedtime, 14 tab, 01/06/2013 Ordered tablet Substitution Allowed, TAB Saline Flush 0.9% 5 mL, Route: IVP, Drug Form: INJ, 01/04/2013 01/06/2013 Discontinued Dosing Weight 129.545, kg, Q8H, PRN Line Flush, Start date: 01/04/13 13:00:00, Duration: 30 day, Stop date: 02/03/13 12:59:00, Administer at least once every 8 hours Administer at least once every 8 hours(Same as: BD Posiflush) hydrALAZINE 20 mg, 1 mL, Route: IV, Drug form: 01/04/2013 01/06/2013 Discontinued INJ, Q4H, PRN Elevated BP, Start date: 01/04/13 19:42:00, Duration: 30 day, Stop date: 02/03/13 19:41:00(Same as: Apresoline) Coreg 3.125 mg, 1 tab, Route: PO, Drug 01/06/2013 01/06/2013 Canceled form: TAB, Q12H, Dosing Weight 108.004, kg, Start date: 01/06/13 21:00:00, Duration: 30 day, Stop date: 02/05/13 20:59:00Give with food. (Same As: Coreg) BD Normal Saline 10 mL, Route: IV, Drug Form: INJ, 01/05/2013 01/06/2013 Discontinued Flush Q8H, Start date: 01/05/13 0:00:00, Duration: 30 day, Stop date: 02/03/13 16:00:00(Same as: BD Posiflush) cyanocobalamin 5 microgram, PO, Daily, 01/04/2013 Ordered Substitution Allowed, TAB Immunizations Vaccine Date Status influenza virus vaccine, inactivated 12/25/2012 Auth (Verified) Vital Signs Most recent to oldest [Reference Range]: 1 2 3 Height 172.72 cm (01/04/2013 17:51:00) 172.72 cm (01/04/2013 12:38:00) Current Weight 97.005 kg (01/06/2013 00:00:00) 106.364 kg (01/05/2013 05:00:00) Temperature Oral [96.4-99.1 DegF] 98.0 DegF (01/06/2013 12:00:00) 98.1 DegF (01/06/2013 07:51:00) 97.9 DegF (01/06/2013 04:00:00) Systolic Blood Pressure [90-140 mmHg] 125 mmHg (01/06/2013 12:00:00) 125 mmHg (01/06/2013 07:51:00) 110 mmHg (01/06/2013 04:00:00) Diastolic Blood Pressure [60-90 mmHg] 89 mmHg (01/06/2013 12:00:00) 91 mmHg *HI* (01/06/2013 07:51:00) 81 mmHg (01/06/2013 04:00:00) Respiratory Rate [14-20 BRMIN] 18 BRMIN (01/06/2013 12:00:00) 18 BRMIN (01/06/2013 07:51:00) 18 BRMIN (01/06/2013 04:00:00) Peripheral Pulse Rate [60-100 bpm] 68 bpm (01/06/2013 12:00:00) 81 bpm (01/06/2013 07:51:00) 70 bpm (01/06/2013 04:00:00) Weight 108.004 kg (01/04/2013 17:51:00) 129.545 kg (01/04/2013 12:38:00) Results INFECTIOUS DISEASES Most recent to oldest [Reference Range]: 1 2 3 C difficile DNA [Negative] Negative 1 (01/06/2013 07:00:00) 1Interpretive Data: Podotreeigene Clostridium difficile assay utilizes loop-mediated isothermal DNA amplification (LAMP) technology to detect a 204 bp region of the tcdA gene within the PaLoc gene segment present in all known toxigenic C. difficile strains. The assay utilizes FDA cleared IVD reagents. Performance characteristics have be en verified by the [facility] within the [facility]. The [facility] is authorized under the Clinical Labo ratory Improvement Amendment of 1988 (CLIA-88) to perform high complexity testin g. BEDSIDE GLUCOSE TESTING Most recent to [Reference Range]: 1 2 3 Glucose POC [70-99 mg/dL] 132 mg/dL 2 *HI* (01/06/2013 11:46:00) 93 mg/dL 3 (01/06/2013 06:24:00) 142 mg/dL 4 *HI* (01/05/2013 21:25:00) Gluc POC Comment 1 Notify RN/MD *NA* (01/06/2013 11:46:00) Notify RN/MD *NA* (01/06/2013 06:24:00) Notify RN/MD *NA* (01/05/2013 21:25:00) 2Interpretive Data: Upper Reportable Limit: 200 mg/dL. 3Interpretive Data: Upper Reportable Limit: 200 mg/dL. 4Interpretive Data: Upper Reportable Limit: 200 mg/dL. CHEMISTRY Most recent to oldest [Reference Range]: 1 2 3 Sodium Lvl [135-145 mEq/L] 141 mEq/L (01/05/2013 05:29:00) 140 mEq/L (01/04/2013:05:00) Potassium Lvl [3.5-5.1 mEq/L] 3.6 mEq/L (01/05/2013 05:29:00) 4.2 mEq/L (01/04/2013:05:00) Chloride Lvl [95-109 mEq/L] 100 mEq/L (01/05/2013 05:29:00) 104 mEq/L (01/04/2013:05:00) CO2 [24-32 mEq/L] 29 mEq/L (01/05/2013:29:00) 24 mEq/L (01/04/2013:05:00) AGAP [10.0-20.0 mEq/L] 15.6 mEq/L (01/05/2013:29:00) 16.2 mEq/L (01/04/2013:05:00) Creatinine Lvl [0.5-1.4 mg/dL] 1.2 mg/dL (01/05/2013:29:00) 1.3 mg/dL (01/04/2013:05:00) eGFR 71 mL/min/1.73m2 5 *NA* (01/05/2013:29:00) 65 mL/min/1.73m2 6 *NA* (01/04/2013:05:00) BUN [7-22 mg/dL] 17 mg/dL (01/05/2013:29:00) 20 mg/dL (01/04/2013:05:00) B/C Ratio [6-25] 15 (01/04/2013:05:00) Glucose Lvl [70-99 mg/dL] 95 mg/dL 7 (01/05/2013 05:29:00) 115 mg/dL 8 *HI* (01/04/2013:05:00) Total Protein [6.4-8.4 g/dL] 6.9 g/dL (01/04/2013:05:00) Albumin Lvl [3.5-5.0 g/dL] 3.8 g/dL (01/04/2013:05:00) Globulin [2.0-4.0 g/dL] 3.1 g/dL (01/04/2013:05:00) A/G Ratio [0.7-1.6] 1.2 (01/04/2013:05:00) Calcium Lvl [8.5-10.5 mg/dL] 8.0 mg/dL *LOW* (01/05/2013 05:29:00) 8.4 mg/dL *LOW* (01/04/2013:05:00) Magnesium Lvl [1.8-2.4 mg/dL] 2.0 mg/dL (01/04/2013:05:00) ALT [0-65 unit/L] 136 unit/L *HI* (01/04/2013:00) AST [0-37 unit/L] 153 unit/L *HI* (01/04/2013::00) Alk Phos [39-136 unit/L] 126 unit/L (01/04/2013::00) Bili Total [0.2-1.3 mg/dL] 1.7 mg/dL *HI* (01/04/2013:05:00) Total CK [12-191 unit/L] 293 unit/L *HI* (01/04/2013:05:00) CK MB [0.5-3.6 ng/mL] 1.8 ng/mL (01/04/2013:05:00) CK MB Index [0.0-2.5] 0.6 (01/04/2013::00) Troponin-I [0.00-0.40 ng/mL] 0.03 ng/mL (01/04/2013:05:00) BNP [<=100 pg/mL] 2290 pg/mL 9 *HI* (01/04/2013:00) Digoxin Lvl [0.8-2.0 ng/mL] <0.1 ng/mL *LOW* (01/04/201305:00) 5Result Comment: The eGFR is calculated using the [...] from the National Kidney Disease Education Program ( NKDEP) which additionally recommends that when the eGFR is used in patients with extremes of body mass index for purposes of drug dosing, the eGFR should be mul tiplied by the estimated BMI. 6Result Comment: The eGFR is calculated using the [...] from the National Kidney Disease Education Program ( NKDEP) which additionally recommends that when the eGFR is used in patients with extremes of body mass index for purposes of drug dosing, the eGFR should be mul tiplied by the estimated BMI. 7Interpretive Data: Adult reference range values reflect the clinical guidelines of the [place] [employer]. 8Interpretive Data: Adult reference range values reflect the clinical guidelines of the [place] [employer]. 9Interpretive Data: Elevated results are in line with increasing severity of congestive heart failure. Minor elevations between 100 and 300 may be seen with Myocardial Ischemia, Sodium retaining drugs, and compensated/treated heart failure. HEMATOLOGY Most recent to oldest [Reference Range]: 1 2 3 WBC [3.7-10.4 K/CMM] 7.9 K/CMM (01/05/2013 05:29:00) 8.8 K/CMM (01/04/2013 13:05:00) RBC [4.70-6.10 M/CMM] 4.61 M/CMM *LOW* (01/05/2013 05:29:00) 5.04 M/CMM (01/04/2013 13:05:00) Hgb [14.0-18.0 g/dL] 13.8 g/dL *LOW* (01/05/2013 05:29:00) 14.7 g/dL (01/04/2013 13:05:00) Hct [42.0-54.0 %] 41.8 % *LOW* (01/05/2013 05:29:00) 45.5 % (01/04/2013 13:05:00) MCV [80.0-94.0 fL] 90.6 fL (01/05/2013 05:29:00) 90.3 fL (01/04/2013 13:05:00) MCH [27.0-31.0 pg] 30.0 pg (01/05/2013 05:29:00) 29.1 pg (01/04/2013 13:05:00) MCHC [32.0-36.0 g/dL] 33.1 g/dL (01/05/2013 05:29:00) 32.2 g/dL (01/04/2013 13:05:00) RDW [11.5-14.5 %] 15.4 % *HI* (01/05/2013 05:29:00) 15.2 % *HI* (01/04/2013 13:05:00) Platelet [133-450 K/CMM] 241 K/CMM (01/05/2013 05:29:00) 266 K/CMM (01/04/2013 13:05:00) MPV [7.4-10.4 fL] 8.8 fL (01/05/2013 05:29:00) 8.7 fL (01/04/2013 13:05:00) Segs [45.0-75.0 %] 73.8 % (01/05/2013 05:29:00) 81.9 % *HI* (01/04/2013 13:05:00) Lymphocytes [20.0-40.0 %] 13.6 % *LOW* (01/05/2013 05:29:00) 9.1 % *LOW* (01/04/2013 13:05:00) Monocytes [2.0-12.0 %] 12.1 % *HI* (01/05/2013 05:29:00) 8.8 % (01/04/2013 13:05:00) Eosinophils [0.0-4.0 %] 0.1 % (01/05/2013 05:29:00) 0.1 % (01/04/2013 13:05:00) Basophils [0.0-1.0 %] 0.4 % (01/05/2013 05:29:00) 0.1 % (01/04/2013 13:05:00) Segs-Bands # [1.5-8.1 K/CMM] 5.8 K/CMM (01/05/2013 05:29:00) 7.2 K/CMM (01/04/2013 13:05:00) Lymphocytes # [1.0-5.5 K/CMM] 1.1 K/CMM (01/05/2013 05:29:00) 0.8 K/CMM *LOW* (01/04/2013 13:05:00) Monocytes # [0.0-0.8 K/CMM] 1.0 K/CMM *HI* (01/05/2013 05:29:00) 0.8 K/CMM (01/04/2013 13:05:00) Eosinophils # [0.0-0.5 K/CMM] 0.0 K/CMM (01/05/2013 05:29:00) 0.0 K/CMM (01/04/2013 13:05:00) Basophils # [0.0-0.2 K/CMM] 0.0 K/CMM (01/05/2013 05:29:00) Procedures Procedures Date Related Diagnosis Emergency department visit for the evaluation and management 01/04/2013 00:00:00 of a patient, which requires these 3 suarez components within the constraints imposed by the urgency of the patient's clinical condition and/or mental status: A comprehensive history; A comprehensi
--- OUTSIDE RECORDS SUMMARY | 2018-12-19 01:21 | XMS REPORT | CCD ---
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 Role Phone Angelita Gold CP Allergies, Adverse Reactions, Alerts Substance Reaction Status NKDA Active Problem List Condition Effective Dates Status [D]Anterior chest wall pain 12/07/2011 Active CHF - Congestive heart failure Active Down syndrome Active H/O: schizophrenia Active Medications Medication Instructions Start Date End Date Status lisinopril 10 mg, 1 tab, Route: PO, Drug form: 12/08/2011 12/11/2011 Discontinued TAB, Daily, Dosing Weight 105.909, kg, Priority: NOW, Start date: 12/08/11 7:51:00, Duration: 30 day, Stop date: 01/06/12 9:00:00 spironolactone 25 mg Daily, Substitution Allowed 12/08/2011 12/08/2011 Discontinued oral tablet enoxaparin 40 mg, 0.4 mL, Route: SUB-Q, Drug 12/08/2011 12/11/2011 Discontinued form: INJ, [id number], Dosing Weight 105.909, kg, Start date: 12/08/11 8:00:00, Duration: 30 day, Stop date: 01/06/12 8:00:00 furosemide 40 mg, Daily, Substitution Allowed 12/08/2011 12/11/2011 Discontinued carvedilol 25 mg BID, Substitution Allowed 12/08/2011 12/11/2011 Discontinued oral tablet Lasix 40 mg, Route: IVP, Drug form: INJ, 12/07/2011 12/07/2011 Completed ONCE, Dosing Weight 105.909, kg, Priority: STAT, Start date: 12/07/11 23:26:00, Stop date: 12/07/11 23:26:00 clonazepam 2 mg, 4 tab, Route: PO, Drug form: 12/08/2011 12/11/2011 Discontinued TAB, Bedtime, Dosing Weight 105.909, kg, PRN Insomnia, Start date: 12/08/11 21:49:00, Duration: 30 day, Stop date: 01/07/12 21:48:00 folic acid 1 mg, 1 tab, Route: PO, Drug form: 12/10/2011 12/11/2011 Discontinued TAB, Daily, Dosing Weight 105.909, kg, Priority: NOW, Start date: 12/10/11 11:00:00, Duration: 30 day, Stop date: 01/09/12 9:00:00 thiamine 100 mg, 1 mL, Route: IM, Drug form: 12/10/2011 12/11/2011 Discontinued INJ, Daily, Dosing Weight 105.909, kg, Start date: 12/10/11 11:00:00, Duration: 30 day, Stop date: 01/08/12 11:00:00 carvedilol 12.5 mg, 1 tab, Route: PO, Drug 12/09/2011 12/11/2011 Discontinued form: TAB, BID, Dosing Weight 105.909, kg, Start date: 12/09/11 9:00:00, Duration: 30 day, Stop date: 01/07/12 17:00:00 atorvastatin 10 mg, 1 tab, Route: PO, Drug form: 12/09/2011 12/11/2011 Discontinued TAB, QPM, Dosing Weight 105.909, kg, Start date: 12/09/11 17:00:00, Duration: 30 day, Stop date: 01/07/12 17:00:00 Ultram 50 mg oral 50 mg, 1 tab, PO, Q4H, PRN, 20 tab, 12/11/2011 Ordered tablet pain, Substitution Allowed folic acid 1 mg oral 1 mg, 1 tab, PO, Daily, 10 tab, 12/11/2011 Ordered tablet Substitution Allowed, TAB atorvastatin 10 mg 10 mg, 1 tab, PO, QPM, 30 tab, 12/11/2011 Ordered oral tablet Substitution Allowed, TAB risperidone 1 mg 2 mg, 2 tab, PO, Daily, 10 tab, 12/11/2011 Ordered oral tablet Substitution Allowed, TAB Saline Flush 0.9% 5 ml, Route: IVP, Drug Form: INJ, 12/07/2011 12/11/2011 Discontinued Dosing Weight 105.909, kg, PRN, PRN Line Flush, Start date: 12/07/11 22:07:00, Duration: 30 day, Stop date: 01/06/12 22:06:00 Saline Flush 0.9% 5 ml, Route: IVP, Drug Form: INJ, 12/08/2011 12/11/2011 Discontinued Dosing Weight 105.909, kg, Q12H, Start date: 12/08/11 9:00:00, Duration: 30 day, Stop date: 01/06/12 21:00:00 Saline Flush 0.9% 5 ml, Route: IVP, Drug Form: INJ, 12/08/2011 12/08/2011 Discontinued Dosing Weight 105.909, kg, PRN, PRN Line Flush, Start date: 12/08/11 2:57:00, Duration: 30 day, Stop date: 01/07/12 2:56:00 aspirin 325 mg 325 mg, 1 tab, Route: PO, Drug 12/07/2011 12/07/2011 Deleted tablet form: TAB, ONCE, Dosing Weight 105.909, kg, Priority: STAT, Start date: 12/07/11 22:07:00, Stop date: 12/07/11 22:07:00 furosemide 40 mg, 4 mL, Route: IVP, Drug form: 12/08/2011 12/10/2011 Discontinued INJ, Q12H, Dosing Weight 105.909, kg, Start date: 12/08/11 9:00:00, Duration: 30 day, Stop date: 01/06/12 21:00:00 ondansetron 4 mg, 2 mL, Route: IVP, Drug form: 12/08/2011 12/11/2011 Discontinued INJ, Q8H, Dosing Weight 105.909, kg, PRN Nausea & Vomiting, Start date: 12/08/11 2:57:00, Duration: 30 day, Stop date: 01/07/12 2:56:00 famotidine 20 mg, 1 tab, Route: PO, Drug form: 12/08/2011 12/11/2011 Discontinued TAB, Q12H, Dosing Weight 105.909, kg, Start date: 12/08/11 9:00:00, Duration: 30 day, Stop date: 01/06/12 21:00:00 aspirin 81 mg 81 mg, 1 tab, Route: PO, Drug form: 12/08/2011 12/11/2011 Discontinued tablet, chewable CHEWTAB, Breakfast, Dosing Weight 105.909, kg, Start date: 12/08/11 8:00:00, Duration: 30 day, Stop date: 01/06/12 8:00:00 Zaroxolyn 5 mg, 1 tab, Route: PO, Drug form: 12/10/2011 12/10/2011 Discontinued TAB, After Breakfast, Dosing Weight 105.909, kg, Start date: 12/10/11 8:30:00, Duration: 30 day, Stop date: 01/08/12 8:30:00 ibuprofen 600 mg, 1 tab, Route: PO, Drug 12/08/2011 12/08/2011 Completed form: TAB, ONCE, Dosing Weight 105.909, kg, Priority: STAT, Start date: 12/08/11 0:54:00, Stop date: 12/08/11 0:54:00 potassium chloride 20 mEq, 1 tab, Route: PO, Drug 12/09/2011 12/09/2011 Completed 20 mEq oral tablet, form: ERTAB, ONCE, Dosing Weight extended release 105.909, kg, Start date: 12/09/11 7:10:00, Stop date: 12/09/11 7:10:00 atorvastatin 10 mg Daily, Substitution Allowed 12/08/2011 12/08/2011 Discontinued oral tablet Robitussin-DM 10 mL, Route: PO, Drug Form: LIQ, 12/08/2011 12/11/2011 Discontinued Q4H, PRN Cough, Start date: 12/08/11 22:26:00, Duration: 30 day, Stop date: 01/07/12 22:25:00 risperidone 2 mg, Daily, Substitution Allowed 12/08/2011 12/08/2011 Discontinued aspirin 81 mg 81 mg, 1 tab, PO, Daily, 0 tab, 12/10/2011 Ordered tablet, enteric Substitution Allowed, ECTAB coated Lasix 40 mg oral 40 mg, 1 tab, PO, Daily, 90 tab, 12/10/2011 12/11/2011 Discontinued tablet Substitution Allowed, TAB nitroglycerin 2% 1 inch, Route: TOP, Drug Form: 12/07/2011 12/07/2011 Completed ointment OINT, Dosing Weight 105.909, kg, ONCE, STAT, Start date: 12/07/11 22:27:00, Stop date: 12/07/11 22:27:00 Sodium Chloride 0.9% 25 mL, Route: IV, Start date: 12/10/2011 12/11/2011 Discontinued IV 12/10/11 12:46:00, Duration: 30 day, Stop date: 01/09/12 12:45:00, PRN Line Flush aspirin 81 mg 324 mg, 4 tab, Route: PO, Drug 12/07/2011 12/07/2011 Completed tablet, chewable form: CHEWTAB, ONCE, Dosing Weight 105.909, kg, Priority: STAT, Start date: 12/07/11 22:26:00, Stop date: 12/07/11 22:26:00 spironolactone 25 mg 25 mg, 1 tab, PO, Daily, 90 tab, 12/10/2011 Ordered oral tablet Substitution Allowed, TAB Coreg 12.5 mg oral 12.5 mg, 1 tab, PO, BID, 180 tab, 12/10/2011 Ordered tablet Substitution Allowed, TAB lisinopril 10 mg 10 mg, 1 tab, PO, Daily, 90 tab, 12/10/2011 Ordered oral tablet Substitution Allowed, TAB Lasix 40 mg oral 60 mg, 1.5 tab, PO, Daily, 45 tab, 12/10/2011 Ordered tablet 2, 2, Substitution Allowed, TAB spironolactone 25 mg, 1 tab, Route: PO, Drug form: 12/09/2011 12/11/2011 Discontinued TAB, Daily, Dosing Weight 105.909, kg, Start date: 12/09/11 9:00:00, Duration: 30 day, Stop date: 01/07/12 9:00:00 Tylenol 650 mg, 2 tab, Route: PO, Drug 12/11/2011 12/11/2011 Discontinued form: TAB, Q4H, PRN Pain, Start date: 12/11/11 5:23:00, Duration: 30 day, Stop date: 01/10/12 5:22:00 risperidone 2 mg, 2 tab, Route: PO, Drug form: 12/09/2011 12/11/2011 Discontinued TAB, Daily, Dosing Weight 105.909, kg, Start date: 12/09/11 9:00:00, Duration: 30 day, Stop date: 01/07/12 9:00:00 Lasix 40 mg oral 60 mg, 3 tab, Route: PO, Drug form: 12/11/2011 12/11/2011 Discontinued tablet TAB, Daily, Dosing Weight 105.909, kg, Start date: 12/11/11 9:00:00, Duration: 30 day, Stop date: 01/09/12 9:00:00 clonazepam 2 mg oral Bedtime, Substitution Allowed 12/08/2011 Ordered tablet mirtazapine 30 mg Bedtime, Substitution Allowed 12/08/2011 12/08/2011 Discontinued oral tablet flurazepam 30 mg Bedtime, Substitution Allowed 12/08/2011 12/08/2011 Discontinued oral capsule Vital Signs Most recent to oldest [Reference Range]: 1 2 3 Height 167.64 cm (12/07/2011 21:44:00) Current Weight 111.909 kg (12/11/2011 09:43:00) 111.875 kg (12/11/2011 03:43:00) 106.000 kg (12/08/2011 12:44:00) Temperature Oral [96.4-99.1 DegF] 98 DegF (12/11/2011 13:20:00) 99.2 DegF *HI* (12/11/2011 08:11:00) 100.5 DegF *HI* (12/11/2011 06:22:00) Systolic Blood Pressure [90-140 mmHg] 93 mmHg (12/11/2011 13:20:00) 110 mmHg (12/11/2011 08:11:00) 106 mmHg (12/11/2011 05:08:00) Diastolic Blood Pressure [60-90 mmHg] 63 mmHg (12/11/2011 13:20:00) 71 mmHg (12/11/2011 08:11:00) 73 mmHg (12/11/2011 05:08:00) Respiratory Rate [14-20 BRMIN] 20 BRMIN (12/11/2011 13:20:00) 18 BRMIN (12/11/2011 08:11:00) 18 BRMIN (12/11/2011 05:08:00) Peripheral Pulse Rate [60-100 bpm] 83 bpm (12/11/2011 13:20:00) 86 bpm (12/11/2011 08:11:00) 82 bpm (12/11/2011 05:08:00) Weight 105.909 kg (12/07/2011 21:44:00) Results BEDSIDE GLUCOSE TESTING Most recent to oldest [Reference Range]: 1 2 3 Gluc POC Lifscn [70-99 mg/dL] 159 mg/dL 1 *HI* (12/08/2011 16:30:00) 131 mg/dL 2 *HI* (12/08/2011 11:55:00) Comment1 Notify RN/MD *NA* (12/08/2011 16:30:00) Notify RN/MD *NA* (12/08/2011 11:55:00) 1Interpretive Data: Upper Reportable Limit: 200 mg/dL. 2Interpretive Data: Upper Reportable Limit: 200 mg/dL. URINALYSIS Most recent to oldest [Reference Range]: 1 2 3 UA Turbidity [Clear] Clear (12/07/2011 23:45:00) UA Color [Yellow] Yellow *NA* (12/07/2011 23:45:00) UA pH [5.0-8.0] 6.0 (12/07/2011 23:45:00) UA Spec Grav [<=1.030] >=1.030 *ABN* (12/07/2011 23:45:00) UA Glucose [Negative] Negative (12/07/2011 23:45:00) UA Blood [Negative] Small *ABN* (12/07/2011 23:45:00) UA Ketones [Negative] Negative *NA* (12/07/2011 23:45:00) UA Protein [Negative mg/dL] 100 mg/dL *ABN* (12/07/2011 23:45:00) UA Urobilinogen [0.1-1.0 EU/dL] 4.0 EU/dL *HI* (12/07/2011 23:45:00) UA Bili [Negative] Negative *NA* (12/07/2011 23:45:00) UA Leuk Est [Negative] Negative (12/07/2011 23:45:00) UA Nitrite [Negative] Negative (12/07/2011 23:45:00) UA WBC [None Seen /HPF] 0-2 /HPF (12/07/2011 23:45:00) UA RBC [0-2 /HPF] 0-2 /HPF (12/07/2011 23:45:00) UA Bacteria [None Seen /HPF] Occasional /HPF (12/07/2011 23:45:00) UA Sq Epi [Few /LPF] Rare /LPF (12/07/2011 23:45:00) UA Amorph Althea [None Seen /HPF] Occasional /HPF *ABN* (12/07/2011 23:45:00) UA Mucus [None Seen /LPF] Few /LPF (12/07/2011 23:45:00) CHEMISTRY Most recent to oldest [Reference Range]: 1 2 3 Sodium Lvl [135-145 mEq/L] 135 mEq/L (12/11/2011 05:00:00) 139 mEq/L (12/10/2011 04:30:00) 139 mEq/L (12/09/2011 05:00:00) Potassium Lvl [3.5-5.1 mEq/L] 4.3 mEq/L (12/11/2011 05:00:00) 3.7 mEq/L (12/10/2011 04:30:00) 3.4 mEq/L *LOW* (12/09/2011 05:00:00) Chloride Lvl [95-109 mEq/L] 96 mEq/L (12/11/2011 05:00:00) 99 mEq/L (12/10/2011 04:30:00) 100 mEq/L (12/09/2011 05:00:00) CO2 [24-32 mEq/L] 29 mEq/L (12/11/2011 05:00:00) 34 mEq/L *HI* (12/10/2011 04:30:00) 30 mEq/L (12/09/2011 05:00:00) AGAP [10.0-20.0 mEq/L] 14.3 mEq/L (12/11/2011 05:00:00) 9.7 mEq/L *LOW* (12/10/2011 04:30:00) 12.4 mEq/L (12/09/2011 05:00:00) Creatinine Lvl [0.5-1.4 mg/dL] 1.4 mg/dL (12/11/2011 05:00:00) 1.2 mg/dL (12/10/2011 04:30:00) 1.2 mg/dL (12/09/2011 05:00:00) eGFR >60 3 *NA* (12/10/2011 04:30:00) BUN [7-22 mg/dL] 23 mg/dL *HI* (12/11/2011 05:00:00) 19 mg/dL (12/10/2011 04:30:00) 17 mg/dL (12/09/2011 05:00:00) B/C Ratio [6-25] 16 (12/11/2011 05:00:00) 16 (12/10/2011 04:30:00) 15 (12/07/2011 22:17:00) Glucose Lvl [70-99 mg/dL] 128 mg/dL 4 *HI* (12/11/2011 05:00:00) 109 mg/dL 5 *HI* (12/10/2011 04:30:00) 157 mg/dL 6 *HI* (12/09/2011 05:00:00) Total Protein [6.4-8.4 g/dL] 7.9 g/dL (12/11/2011 05:00:00) 6.7 g/dL (12/10/2011 04:30:00) 6.1 g/dL *LOW* (12/09/2011 05:00:00) Albumin Lvl [3.5-5.0 g/dL] 4.0 g/dL (12/11/2011 05:00:00) 3.2 g/dL *LOW* (12/10/2011 04:30:00) 3.4 g/dL *LOW* (12/09/2011 05:00:00) Globulin [2.0-4.0 g/dL] 3.9 g/dL (12/11/2011 05:00:00) 3.5 g/dL (12/10/2011 04:30:00) 2.7 g/dL (12/09/2011 05:00:00) A/G Ratio [0.7-1.6] 1.0 (12/11/2011 05:00:00) 0.9 (12/10/2011 04:30:00) 1.3 (12/09/2011 05:00:00) Calcium Lvl [8.5-10.5 mg/dL] 8.9 mg/dL (12/11/2011 05:00:00) 7.8 mg/dL *LOW* (12/10/2011 04:30:00) 7.3 mg/dL *LOW* (12/09/2011 05:00:00) Magnesium Lvl [1.8-2.4 mg/dL] 2.2 mg/dL (12/10/2011 04:30:00) 2.3 mg/dL (12/07/2011 22:17:00) ALT [0-65 unit/L] 128 unit/L *HI* (12/11/2011 05:00:00) 136 unit/L *HI* (12/10/2011 04:30:00) 184 unit/L *HI* (12/09/2011 05:00:00) AST [0-37 unit/L] 38 unit/L *HI* (12/11/2011 05:00:00) 43 unit/L *HI* (12/10/2011 04:30:00) 48 unit/L *HI* (12/09/2011 05:00:00) Alk Phos [39-136 unit/L] 198 unit/L *HI* (12/11/2011 05:00:00) 146 unit/L *HI* (12/10/2011 04:30:00) 150 unit/L *HI* (12/09/2011 05:00:00) Bili Total [0.2-1.3 mg/dL] 1.5 mg/dL *HI* (12/11/2011 05:00:00) 1.1 mg/dL (12/10/2011 04:30:00) 1.1 mg/dL (12/09/2011 05:00:00) Bili Direct [0.0-0.3 mg/dL] 0.5 mg/dL *HI* (12/09/2011 05:00:00) Bili Indirect [0.0-1.0 mg/dL] 0.6 mg/dL (12/09/2011 05:00:00) Total CK [12-191 unit/L] 433 unit/L *HI* (12/08/2011 09:00:00) 458 unit/L *HI* (12/08/2011 04:00:00) 574 unit/L *HI* (12/07/2011 22:17:00) CK MB [0.5-3.6 ng/mL] 1.7 ng/mL (12/08/2011 04:00:00) 1.9 ng/mL (12/07/2011 22:17:00) CK MB Index [0.0-2.5] 0.4 (12/08/2011 04:00:00) 0.3 (12/07/2011 22:17:00) Troponin-I [0.00-0.40 ng/mL] 0.03 ng/mL (12/08/2011 09:00:00) 0.03 ng/mL (12/08/2011 04:00:00) 0.03 ng/mL (12/07/2011 22:17:00) BNP [<=100 pg/mL] 1404 pg/mL 7 *HI* (12/07/2011 22:17:00) CHD Risk [4.00-7.30] 12.62 *HI* (12/08/2011 04:00:00) Chol [120-200 mg/dL] 101 mg/dL *LOW* (12/08/2011 04:00:00) Trig [0-200 mg/dL] 88 mg/dL (12/08/2011 04:00:00) HDL [>=35 mg/dL] 8 mg/dL *LOW* (12/08/2011 04:00:00) LDL [0-129 mg/dL] 75 mg/dL (12/08/2011 04:00:00) Hgb A1C 6.6 % 8 *NA* (12/09/2011 05:00:00) 3Result Comment: Expected eGFR for >20 yr. age group: >=60 ml/min/1.73 sq m The eGFR calculation is not valid in or for persons < 18 years of age. From National Kid[employer] Disease Education Program (NKDEP) 4Interpretive Data: Adult reference range values reflect the clinical guidelines of the [place] [employer]. 5Interpretive Data: Adult reference range values reflect the clinical guidelines of the [place] [employer]. 6Interpretive Data: Adult reference range values reflect the clinical guidelines of the [place] [employer]. 7Interpretive Data: Elevated results are in line with increasing severity of congestive heart failure. Minor elevations between 100 and 300 may be seen with Myocardial Ischemia, Sodium retaining drugs, and compensated/treated heart failure. 8Interpretive Data: HbA1C% eAG(mg/dL) Interpretation 6.0 126 Very good control 6.5 140 Very good control 7.0 154 Good Control 7.5 169 Good Control 8.0 183 Marginal Control, take action to lower 8.5 197 Marginal Control, take action to lower 9.0 212 Poor Control, take action to lower 9.5 226 Poor Control, take action to lower 10.0 240 Poor Control, take action to lower HEMATOLOGY Most recent to oldest [Reference Range]: 1 2 3 WBC [3.7-10.4 K/CMM] 7.6 K/CMM (12/10/2011 04:30:00) 8.4 K/CMM (12/09/2011 05:00:00) 9.2 K/CMM (12/08/2011 09:00:00) RBC [4.70-6.10 M/CMM] 5.07 M/CMM (12/10/2011 04:30:00) 4.83 M/CMM (12/09/2011 05:00:00) 4.74 M/CMM (12/08/2011 09:00:00) Hgb [14.0-18.0 g/dL] 15.4 g/dL (12/10/2011 04:30:00) 14.4 g/dL (12/09/2011 05:00:00) 14.3 g/dL (12/08/2011 09:00:00) Hct [42.0-54.0 %] 45.9 % (12/10/2011 04:30:00) 44.5 % (12/09/2011 05:00:00) 44.1 % (12/08/2011 09:00:00) MCV [80.0-94.0 fL] 90.6 fL (12/10/2011 04:30:00) 92.1 fL (12/09/2011 05:00:00) 93.1 fL (12/08/2011 09:00:00) MCH [27.0-31.0 pg] 30.5 pg (12/10/2011 04:30:00) 29.9 pg (12/09/2011 05:00:00) 30.1 pg (12/08/2011 09:00:00) MCHC [32.0-36.0 g/dL] 33.6 g/dL (12/10/2011 04:30:00) 32.5 g/dL (12/09/2011 05:00:00) 32.4 g/dL (12/08/2011 09:00:00) RDW [11.5-14.5 %] 14.7 % *HI* (12/10/2011 04:30:00) 15.0 % *HI* (12/09/2011 05:00:00) 15.2 % *HI* (12/08/2011 09:00:00) Platelet [133-450 K/CMM] 200 K/CMM (12/10/2011 04:30:00) 201 K/CMM (12/09/2011 05:00:00) 206 K/CMM (12/08/2011 09:00:00) MPV [7.4-10.4 fL] 9.6 fL (12/10/2011 04:30:00) 9.1 fL (12/09/2011 05:00:00) 9.1 fL (12/08/2011 09:00:00) Segs [45.0-75.0 %] 70.3 % (12/10/2011 04:30:00) 74.0 % (12/09/2011 05:00:00) 76.7 % *HI* (12/08/2011 09:00:00) Lymphocytes [20.0-40.0 %] 12.6 % *LOW* (12/10/2011 04:30:00) 13.9 % *LOW* (12/09/2011 05:00:00) 12.7 % *LOW* (12/08/2011 09:00:00) Monocytes [2.0-12.0 %] 14.0 % *HI* (12/10/2011 04:30:00) 9.9 % (12/09/2011 05:00:00) 8.4 % (12/08/2011 09:00:00) Eosinophils [0.0-4.0 %] 2.9 % (12/10/2011 04:30:00) 2.0 % (12/09/2011 05:00:00) 1.1 % (12/08/2011 09:00:00) Basophils [0.0-1.0 %] 0.2 % (12/10/2011 04:30:00) 0.2 % (12/09/2011 05:00:00) 1.1 % *HI* (12/08/2011 09:00:00) Segs-Bands # [1.5-8.1 K/CMM] 5.3 K/CMM (12/10/2011 04:30:00) 6.2 K/CMM (12/09/2011 05:00:00) 7.0 K/CMM (12/08/2011 09:00:00) Lymphocytes # [1.0-5.5 K/CMM] 1.0 K/CMM (12/10/2011 04:30:00) 1.2 K/CMM (12/09/2011 05:00:00) 1.2 K/CMM (12/08/2011 09:00:00) Monocytes # [0.0-0.8 K/CMM] 1.1 K/CMM *HI* (12/10/2011 04:30:00) 0.8 K/CMM (12/09/2011 05:00:00) 0.8 K/CMM (12/08/2011 09:00:00) Eosinophils # [0.0-0.5 K/CMM] 0.2 K/CMM (12/10/2011 04:30:00) 0.2 K/CMM (12/09/2011 05:00:00) 0.1 K/CMM (12/08/2011 09:00:00) Basophils # [0.0-0.2 K/CMM] 0.0 K/CMM (12/10/2011 04:30:00) 0.0 K/CMM (12/09/2011 05:00:00) 0.1 K/CMM (12/08/2011 09:00:00) PT [12.0-14.7 seconds] 19.3 seconds *HI* (12/07/2011 22:17:00) INR [0.85-1.17] 1.61 9 *HI* (12/07/2011 22:17:00) D-Dimer 2.45 ug/mL FEU 10 *NA* (12/07/2011 22:17:00) PTT [22.9-35.8 seconds] 36.5 seconds 11 *HI* (12/07/2011 22:17:00) 9Interpretive Data: RECOMMENDED RANGES FOR PROTIME INR: 2.0-3.0 for most medical and surgical thromboembolic states. 2.5-3.5 for artificial heart valves and recurrent embolism. INR SHOULD BE USED ONLY FOR PATIENTS ON STABLE ANTICOAGULANT THERAPY. 10Interpretive Data: In DIC, quantitative D-Dimer is generally greater than 0.66 ug/mL FEU. Values of quantitative D-Dimer less than 0.40 ug/mL FEU have been reported to be associated with a low probability of deep vein thrombosis/pulmonary embolism. This test alone should not be used to rule out DVT/PE. 11Interpretive Data: Heparin Therapeutic Range: 57 - 92 Seconds
--- OUTSIDE RECORDS SUMMARY | 2018-12-19 01:21 | XMS REPORT | CCD ---
Author Author Auto Generated Organization 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 (Same as: Tylenol) enalapril 1.25 [...] [Negative] Negative 1 (01/06/2013 07:00:00) 1Interpretive Data: Ideal [employer] Clostridium difficile assay utilizes loop-mediated isothermal DNA amplification (LAMP) technology to detect a 204 bp region of the tcdA gene within the PaLoc gene segment present in all known toxigenic C. difficile strains. The assay utilizes FDA cleared IVD reagents. Performance characteristics have be en verified by the [facility] within the [facility]. The [facility] is [...] values reflect the clinical guidelines of the [place] [employer]. 8Interpretive Data: Adult reference range values reflect the clinical guidelines of the [place] [employer]. 9Interpretive Data: Elevated results are [...]
--- OUTSIDE RECORDS SUMMARY | 2018-12-19 01:21 | XMS REPORT | CCD ---
Author Author Auto Generated Organization [facility] Address Unknown Phone Unavailable Care Team Providers Care Tobacco Educator Name Role Phone Karli Haddad CP Allergies, Adverse Reactions, Alerts Substance Reaction Status NKDA Active Medications Medication Instructions Start Date End Date Status A/B Otic solution 2 drp, OTIC, Q4H, PRN for pain, 15 05/14/2011 Ordered ml, Substitute Allowed, SOLN ibuprofen 800 mg 800 mg, PO, TID, PRN, 10 tab, Pain, 05/14/2011 05/17/2011 Ordered oral tablet Substitution Allowed, Take with food Take with food Cortisporin Otic 2 drp, OTIC, QID, 10 ml, Substitute 05/14/2011 05/24/2011 Ordered solution Allowed amoxicillin 500 mg 500 mg, 1 tab, PO, TID, 30 tab, 05/14/2011 05/24/2011 Ordered oral tablet Substitution Allowed, TAB Vital Signs Most recent to oldest [Reference Range]: 1 Height 170.18 cm (05/14/2011 18:50:00) Weight 131.364 kg (05/14/2011 18:50:00)
--- OUTSIDE RECORDS SUMMARY | 2018-12-19 01:21 | XMS REPORT | CCD ---
Author Author Auto Generated Organization [facility] Address Unknown Phone Unavailable Care Team Providers [facility] [place] Interpretive Specialist Name Role Phone Samy Sherwood CP Allergies, Adverse Reactions, Alerts Substance Reaction Status NKDA Active Problem List Condition Effective Dates Status [D]Anterior chest wall pain 12/07/2011 Active BP+ - Hypertension Resolved CHF - Congestive heart failure Active CHF - Congestive heart failure Resolved Down syndrome Active GERD - Gastro-esophageal reflux disease Resolved H/O: schizophrenia Active NIDDM Resolved Obese build Resolved Sleep apnea Resolved Medications Medication Instructions Start Date End Date Status flurazepam 15 mg 15 mg, 1 cap, PO, Bedtime, 10/18/2012 Ordered oral capsule Substitution Allowed, CAP digoxin 125 mcg 125 microgram, 1 tab, PO, Daily, 30 10/20/2012 Ordered (0.125 mg) oral tab, Substitution Allowed, TAB tablet mirtazapine 30 mg 30 mg, 1 tab, PO, Bedtime, 10/18/2012 Ordered oral tablet Substitution Allowed potassium chloride 40 mEq, 30 mL, PO, Daily, 7 mL, 10/20/2012 Ordered 20 mEq/15 mL oral Substitution Allowed, LIQ liquid Glucophage 500 mg 500 mg, 1 tab, PO, BID-Meals, 60 10/20/2012 Ordered oral tablet tab, Substitution Allowed, TAB calcium-vitamin D 1 tab, PO, BID, 30 tab, 10/20/2012 Ordered 500 mg-125 units Substitution Allowed, Maintenance, oral tablet TAB Dextrose 50% Syringe 25 gm, 50 mL, Route: IVP, Drug 10/18/2012 10/20/2012 Discontinued Form: INJ, Dosing Weight 106.676, kg, PRN, PRN Blood Glucose Results, Start date: 10/18/12 12:44:00, Duration: 30 day, Stop date: 11/17/12 12:43:00 Dextrose 50% Syringe 12.5 gm, 25 mL, Route: IVP, Drug 10/18/2012 10/20/2012 Discontinued Form: INJ, Dosing Weight 106.676, kg, PRN, PRN Blood Glucose Results, Start date: 10/18/12 12:44:00, Duration: 30 day, Stop date: 11/17/12 12:43:00 glucagon 1 mg, Route: IM, Drug form: 10/18/2012 10/20/2012 Discontinued PDR/INJ, PRN, Dosing Weight 106.676, kg, PRN Blood Glucose Results, Start date: 10/18/12 12:44:00, Duration: 30 day, Stop date: 11/17/12 12:43:00 insulin aspart 8 unit, 0.08 mL, Route: SUB-Q, Drug 10/18/2012 10/20/2012 Discontinued form: SOLN, TID-Before Meals, Dosing Weight 106.676, kg, PRN Blood Glucose Results, Start date: 10/18/12 12:44:00, Duration: 30 day, Stop date: 11/17/12 12:43:00 insulin aspart 6 unit, 0.06 mL, Route: SUB-Q, Drug 10/18/2012 10/20/2012 Discontinued form: SOLN, TID-Before Meals, Dosing Weight 106.676, kg, PRN Blood Glucose Results, Start date: 10/18/12 12:44:00, Duration: 30 day, Stop date: 11/17/12 12:43:00 insulin aspart 10 unit, 0.1 mL, Route: SUB-Q, Drug 10/18/2012 10/20/2012 Discontinued form: SOLN, TID-Before Meals, Dosing Weight 106.676, kg, PRN Blood Glucose Results, Start date: 10/18/12 12:44:00, Duration: 30 day, Stop date: 11/17/12 12:43:00 insulin aspart 4 unit, 0.04 mL, Route: SUB-Q, Drug 10/18/2012 10/20/2012 Discontinued form: SOLN, TID-Before Meals, Dosing Weight 106.676, kg, PRN Blood Glucose Results, Start date: 10/18/12 12:44:00, Duration: 30 day, Stop date: 11/17/12 12:43:00 insulin aspart 2 unit, 0.02 mL, Route: SUB-Q, Drug 10/18/2012 10/20/2012 Discontinued form: SOLN, TID-Before Meals, Dosing Weight 106.676, kg, PRN Blood Glucose Results, Start date: 10/18/12 12:44:00, Duration: 30 day, Stop date: 11/17/12 12:43:00 Lasix 40 mg, 4 mL, Route: IVP, Drug form: 10/17/2012 10/17/2012 Completed INJ, ONCE, Dosing Weight 102.727, kg, Priority: STAT, Start date: 10/17/12 22:54:00, Stop date: 10/17/12 22:54:00 Coreg 12.5 mg, 1 tab, Route: PO, Drug 10/17/2012 10/17/2012 Completed form: TAB, ONCE, Dosing Weight 102.727, kg, Start date: 10/17/12 23:39:00, Stop date: 10/17/12 23:39:00 mirtazapine 30 mg, 2 tab, Route: PO, Drug form: 10/17/2012 10/17/2012 Completed TAB, ONCE, Dosing Weight 102.727, kg, Start date: 10/17/12 23:38:00, Stop date: 10/17/12 23:38:00 risperidone 3 mg, 3 tab, Route: PO, Drug form: 10/18/2012 10/20/2012 Discontinued TAB, Bedtime, Dosing Weight 106.676, kg, Start date: 10/18/12 21:00:00, Duration: 30 day, Stop date: 11/16/12 21:00:00 potassium chloride 20 mEq, 1 tab, Route: PO, Drug 10/19/2012 10/19/2012 Completed 20 mEq oral tablet, form: ERTAB, ONCE, Dosing Weight extended release 106.676, kg, Start date: 10/19/12 11:54:00, Stop date: 10/19/12 11:54:00 flurazepam 15 mg, Route: PO, Drug form: CAP, 10/18/2012 10/18/2012 Deleted Bedtime, Dosing Weight 106.676, kg, Start date: 10/18/12 21:00:00, Duration: 30 day, Stop date: 11/16/12 21:00:00 furosemide 40 mg 40 mg, 1 tab, PO, BID, Substitution 10/18/2012 Ordered oral tablet Allowed calcium-vitamin D 1 tab, Route: PO, Drug Form: TAB, 10/19/2012 10/20/2012 Discontinued 500 mg-125 units Dosing Weight 106.676, kg, BID, oral tablet Start date: 10/19/12 17:00:00, Duration: 30 day, Stop date: 11/18/12 9:00:00 temazepam 30 mg oral 30 mg, 1 cap, PO, Bedtime, 10/18/2012 Ordered capsule Substitution Allowed, CAP ibuprofen 200 mg 200 mg, 1 tab, PO, PRN, as needed 10/18/2012 Ordered oral tablet for pain, Substitution Allowed clonazepam 2 mg, 4 tab, Route: PO, Drug form: 10/18/2012 10/20/2012 Discontinued TAB, Bedtime, Dosing Weight 106.676, kg, Start date: 10/18/12 21:00:00, Duration: 30 day, Stop date: 11/16/12 21:00:00 aspirin 81 mg, Route: PO, Drug form: TAB, 10/19/2012 10/18/2012 Deleted Daily, Dosing Weight 106.676, kg, Start date: 10/19/12 9:00:00, Duration: 30 day, Stop date: 11/17/12 9:00:00 acetaminophen 325 mg 325 mg, 1 tab, PO, PRN, as needed 10/18/2012 Ordered oral tablet for pain, Substitution Allowed Tylenol 650 mg, 2 tab, Route: PO, Drug 10/18/2012 10/20/2012 Discontinued form: TAB, Q6H, PRN Pain, Start date: 10/18/12 22:42:00, Duration: 30 day, Stop date: 11/17/12 22:41:00 digoxin 125 mcg 0.125 mg, 1 tab, Route: PO, Drug 10/18/2012 10/20/2012 Discontinued (0.125 mg) oral form: TAB, Daily, Dosing Weight tablet 106.676, kg, Start date: 10/18/12 11:30:00, Duration: 30 day, Stop date: 11/17/12 9:00:00 Aspirin Low Dose 81 81 mg, 1 tab, PO, Daily, 10/18/2012 Ordered mg oral tablet Substitution Allowed aspirin 81 mg 81 mg, 1 tab, Route: PO, Drug form: 10/18/2012 10/20/2012 Discontinued tablet, enteric ECTAB, Daily, Dosing Weight coated 106.676, kg, Start date: 10/18/12 11:30:00, Duration: 30 day, Stop date: 11/17/12 9:00:00 potassium chloride 40 mEq, 2 tab, Route: PO, Drug 10/18/2012 10/19/2012 Discontinued 20 mEq oral tablet, form: ERTAB, Daily, Dosing Weight extended release 106.676, kg, Start date: 10/18/12 11:30:00, Duration: 30 day, Stop date: 11/17/12 9:00:00 lisinopril 40 mg 40 mg, 1 tab, PO, Daily, 10/18/2012 Ordered oral tablet Substitution Allowed Lasix 40 mg, 4 mL, Route: IVP, Drug form: 10/18/2012 10/19/2012 Discontinued INJ, Daily, Dosing Weight 106.676, kg, Start date: 10/18/12 11:30:00, Duration: 30 day, Stop date: 11/17/12 9:00:00 Restoril 15 mg, 1 cap, Route: PO, Drug form: 10/18/2012 10/20/2012 Discontinued CAP, Bedtime, Start date: 10/18/12 21:00:00, Duration: 30 day, Stop date: 11/16/12 21:00:00 risperidone 3 mg 3 mg, 1 tab, PO, Bedtime, 60 tab, 10/18/2012 Ordered oral tablet Substitution Allowed, TAB metFORmin 500 mg, 1 tab, Route: PO, Drug 10/20/2012 10/20/2012 Discontinued form: TAB, BID-Meals, Dosing Weight 106.676, kg, Start date: 10/20/12 8:00:00, Duration: 30 day, Stop date: 11/18/12 17:00:00 potassium chloride 40 mEq, 30 mL, Route: PO, Drug 10/19/2012 10/20/2012 Discontinued form: LIQ, Daily, Start date: 10/19/12 16:00:00, Duration: 30 day, Stop date: 11/18/12 9:00:00 Saline Flush 0.9% 5 ml, Route: IVP, Drug Form: INJ, 10/18/2012 10/20/2012 Discontinued Dosing Weight 102.727, kg, Q12H, Start date: 10/18/12 9:00:00, Duration: 30 day, Stop date: 11/16/12 21:00:00 Saline Flush 0.9% 5 ml, Route: IVP, Drug Form: INJ, 10/18/2012 10/18/2012 Discontinued Dosing Weight 102.727, kg, PRN, PRN Line Flush, Start date: 10/18/12 1:26:00, Duration: 30 day, Stop date: 11/17/12 1:25:00 spironolactone 25 mg, 1 tab, Route: PO, Drug form: 10/18/2012 10/20/2012 Discontinued TAB, Daily, Dosing Weight 102.727, kg, Start date: 10/18/12 9:00:00, Duration: 30 day, Stop date: 11/16/12 9:00:00 temazepam 15 mg, 1 cap, Route: PO, Drug form: 10/18/2012 10/18/2012 Discontinued CAP, Bedtime, Dosing Weight 102.727, kg, PRN Insomnia, Start date: 10/18/12 1:26:00, Duration: 30 day, Stop date: 11/17/12 1:25:00 ondansetron 4 mg, 2 mL, Route: IVP, Drug form: 10/18/2012 10/20/2012 Discontinued INJ, Q8H, Dosing Weight 102.727, kg, PRN Nausea & Vomiting, Start date: 10/18/12 1:26:00, Duration: 30 day, Stop date: 11/17/12 1:25:00 lisinopril 40 mg, 2 tab, Route: PO, Drug form: 10/18/2012 10/20/2012 Discontinued TAB, Daily, Dosing Weight 102.727, kg, Start date: 10/18/12 9:00:00, Duration: 30 day, Stop date: 11/16/12 9:00:00 carvedilol 12.5 mg, 1 tab, Route: PO, Drug 10/18/2012 10/20/2012 Discontinued form: TAB, Q12H, Dosing Weight 102.727, kg, Start date: 10/18/12 9:00:00, Duration: 30 day, Stop date: 11/16/12 21:00:00 Sodium Chloride 0.9% 25 mL, Route: IV, Start date: 10/17/2012 10/20/2012 Discontinued IV 10/17/12 22:22:00, Duration: 30 day, Stop date: 11/16/12 22:21:00, PRN Line Flush BD Normal Saline 10 mL, Route: IV, Drug Form: INJ, 10/17/2012 10/20/2012 Discontinued Flush PRN, PRN Line Flush, Start date: 10/17/12 22:22:00, Duration: 30 day, Stop date: 11/16/12 22:21:00 Zaroxolyn 2.5 mg, 1 tab, Route: PO, Drug 10/19/2012 10/19/2012 Completed form: TAB, ONCE, Dosing Weight 106.676, kg, Start date: 10/19/12 15:54:00, Stop date: 10/19/12 15:54:00 Lasix 40 mg, 4 mL, Route: IVP, Drug form: 10/19/2012 10/20/2012 Discontinued INJ, Q8H, Dosing Weight 106.676, kg, Start date: 10/19/12 16:00:00, Duration: 30 day, Stop date: 11/18/12 8:00:00 Levemir 10 unit, 0.1 mL, Route: SUB-Q, Drug 10/18/2012 10/20/2012 Discontinued form: INJ, Daily, Dosing Weight 106.676, kg, Start date: 10/18/12 13:30:00, Duration: 30 day, Stop date: 11/17/12 9:00:00 clonidine 0.1 mg, 1 tab, Route: PO, Drug 10/17/2012 10/17/2012 Completed form: TAB, ONCE, Dosing Weight 102.727, kg, Priority: STAT, Start date: 10/17/12 22:19:00, Stop date: 10/17/12 22:19:00 GI cocktail 30 mL, Route: PO, Drug Form: SUSP, 10/17/2012 10/17/2012 Completed Dosing Weight 102.727, kg, ONCE, STAT, Start date: 10/17/12 22:19:00, Stop date: 10/17/12 22:19:00 aspirin 324 mg, 4 tab, Route: PO, Drug 10/17/2012 10/17/2012 Completed form: CHEWTAB, ONCE, Dosing Weight 102.727, kg, Priority: STAT, Start date: 10/17/12 22:18:00, Stop date: 10/17/12 22:18:00 Saline Flush 0.9% 5 mL, Route: IVP, Drug Form: INJ, 10/17/2012 10/17/2012 Discontinued Dosing Weight 102.727, kg, Q8H, PRN Line Flush, Start date: 10/17/12 22:18:00, Duration: 30 day, Stop date: 11/16/12 22:17:00, Administer at least once every 8 hours Administer at least once every 8 hours magnesium sulfate 2 gm, 50 mL, Route: IVPB, Drug 10/20/2012 10/20/2012 Completed 2gm / NS 50ml form: INJ, ONCE, Dosing Weight (premixed) 103.21, kg, Start date: 10/20/12 11:00:00, Duration: 2 hr, Stop date: 10/20/12 11:00:00 potassium chloride 40 mEq, 30 mL, Route: PO, Drug 10/20/2012 10/20/2012 Completed 20 mEq/15 mL oral form: LIQ, ONCE, Dosing Weight liquid 103.21, kg, Start date: 10/20/12 11:00:00, Stop date: 10/20/12 11:00:00 carvedilol 12.5 mg 12.5 mg, 1 tab, PO, BID, 10/18/2012 10/20/2012 Discontinued oral tablet Substitution Allowed hydrALAZINE 20 mg, 1 mL, Route: IVP, Drug form: 10/17/2012 10/18/2012 Completed INJ, ONCE, Dosing Weight 102.727, kg, Priority: STAT, Start date: 10/17/12 23:39:00, Stop date: 10/17/12 23:39:00 spironolactone 25 mg 25 mg, 1 tab, PO, Daily, 10/18/2012 Ordered oral tablet Substitution Allowed potassium chloride 20 mEq, 15 mL, Route: PO, Drug 10/19/2012 10/19/2012 Completed 20 mEq/15 mL oral form: LIQ, ONCE, Dosing Weight liquid 106.676, kg, Start date: 10/19/12 16:01:00, Stop date: 10/19/12 16:01:00 Vital Signs Most recent to oldest [Reference Range]: 1 2 3 Height 172.72 cm (10/18/2012 02:00:00) 167.64 cm (10/17/2012 22:09:00) Current Weight 106.318 kg (10/18/2012 06:33:00) Temperature Oral [96.4-99.1 DegF] 97.0 DegF (10/20/2012 15:37:00) 96.9 DegF (10/20/2012 12:05:00) 95.8 DegF *LOW* (10/20/2012 07:46:00) Systolic Blood Pressure [90-140 mmHg] 117 mmHg (10/20/2012 15:37:00) 92 mmHg (10/20/2012 12:05:00) 97 mmHg (10/20/2012 07:46:00) Diastolic Blood Pressure [60-90 mmHg] 71 mmHg (10/20/2012 15:37:00) 57 mmHg *LOW* (10/20/2012 12:05:00) 64 mmHg (10/20/2012 07:46:00) Respiratory Rate [14-20 BRMIN] 18 BRMIN (10/20/2012 15:37:00) 18 BRMIN (10/20/2012 12:05:00) 18 BRMIN (10/20/2012 07:46:00) Peripheral Pulse Rate [60-100 bpm] 65 bpm (10/20/2012 15:37:00) 70 bpm (10/20/2012 12:05:00) 62 bpm (10/20/2012 07:46:00) Weight 103.21 kg (10/20/2012 07:35:00) 106.676 kg (10/18/2012 02:00:00) 102.727 kg (10/17/2012 22:09:00) Results BEDSIDE GLUCOSE TESTING Most recent to oldest [Reference Range]: 1 2 3 Gluc POC Lifscn [70-99 mg/dL] 186 mg/dL 1 *HI* (10/20/2012 15:24:00) 229 mg/dL 2 *HI* (10/20/2012 11:36:00) 163 mg/dL 3 *HI* (10/20/2012 07:15:00) Comment1 Notify RN/MD *NA* (10/20/2012 15:24:00) Notify RN/MD *NA* (10/20/2012 11:36:00) Verify w/Lab *NA* (10/20/2012 07:15:00) 1Interpretive Data: Upper Reportable Limit: 200 mg/dL. 2Interpretive Data: Upper Reportable Limit: 200 mg/dL. 3Interpretive Data: Upper Reportable Limit: 200 mg/dL. CHEMISTRY Most recent to oldest [Reference Range]: 1 2 3 Sodium Lvl [135-145 mEq/L] 136 mEq/L (10/20/2012 04:50:00) 137 mEq/L (10/19/2012 13:10:00) 139 mEq/L (10/19/2012 06:30:00) Potassium Lvl [3.5-5.1 mEq/L] 3.4 mEq/L *LOW* (10/20/2012 04:50:00) 3.7 mEq/L (10/19/2012 13:10:00) 3.4 mEq/L *LOW* (10/19/2012 06:30:00) Chloride Lvl [95-109 mEq/L] 93 mEq/L *LOW* (10/20/2012 04:50:00) 98 mEq/L (10/19/2012 13:10:00) 100 mEq/L (10/19/2012 06:30:00) CO2 [24-32 mEq/L] 32 mEq/L (10/20/2012 04:50:00) 28 mEq/L (10/19/2012 13:10:00) 31 mEq/L (10/19/2012 06:30:00) AGAP [10.0-20.0 mEq/L] 14.4 mEq/L (10/20/2012 04:50:00) 14.7 mEq/L (10/19/2012 13:10:00) 11.4 mEq/L (10/19/2012 06:30:00) Creatinine Lvl [0.5-1.4 mg/dL] 1.3 mg/dL (10/20/2012 04:50:00) 1.2 mg/dL (10/19/2012 13:10:00) 1.2 mg/dL (10/19/2012 06:30:00) eGFR 65 mL/min/1.73m2 4 *NA* (10/20/2012 04:50:00) 71 mL/min/1.73m2 5 *NA* (10/19/2012 13:10:00) 71 mL/min/1.73m2 6 *NA* (10/19/2012 06:30:00) BUN [7-22 mg/dL] 22 mg/dL (10/20/2012 04:50:00) 23 mg/dL *HI* (10/19/2012 13:10:00) 23 mg/dL *HI* (10/19/2012 06:30:00) B/C Ratio [6-25] 18 (10/17/2012 22:28:00) Glucose Lvl [70-99 mg/dL] 153 mg/dL 7 *HI* (10/20/2012 04:50:00) 283 mg/dL 8 *HI* (10/19/2012 13:10:00) 160 mg/dL 9 *HI* (10/19/2012 06:30:00) Total Protein [6.4-8.4 g/dL] 6.9 g/dL (10/17/2012 22:28:00) Albumin Lvl [3.5-5.0 g/dL] 3.8 g/dL (10/17/2012 22:28:00) Globulin [2.0-4.0 g/dL] 3.1 g/dL (10/17/2012 22:28:00) A/G Ratio [0.7-1.6] 1.2 (10/17/2012 22:28:00) Calcium Lvl [8.5-10.5 mg/dL] 8.6 mg/dL (10/20/2012 04:50:00) 8.2 mg/dL *LOW* (10/19/2012 13:10:00) 7.9 mg/dL *LOW* (10/19/2012 06:30:00) ALT [0-65 unit/L] 27 unit/L (10/17/2012 22:28:00) AST [0-37 unit/L] 11 unit/L (10/17/2012 22:28:00) Alk Phos [39-136 unit/L] 128 unit/L (10/17/2012 22:28:00) Bili Total [0.2-1.3 mg/dL] 0.9 mg/dL (10/17/2012 22:28:00) Lipase Lvl [73-393 unit/L] 134 unit/L (10/17/2012 22:28:00) Total CK [12-191 unit/L] 81 unit/L (10/20/2012 04:50:00) 102 unit/L (10/18/2012 04:40:00) CK MB [0.5-3.6 ng/mL] 1.0 ng/mL (10/18/2012 04:40:00) CK MB Index [0.0-2.5] 1.0 (10/18/2012 04:40:00) Troponin-I [0.00-0.40 ng/mL] 0.03 ng/mL (10/18/2012 04:40:00) 0.03 ng/mL (10/17/2012 22:28:00) BNP [<=100 pg/mL] 466 pg/mL 10 *HI* (10/20/2012 04:50:00) 696 pg/mL 11 *HI* (10/19/2012 13:10:00) 889 pg/mL 12 *HI* (10/19/2012 06:30:00) CHD Risk [4.00-7.30] 7.43 *HI* (10/20/2012 04:50:00) Chol [<=199 mg/dL] 156 mg/dL (10/20/2012 04:50:00) Trig [<=149 mg/dL] 210 mg/dL *HI* (10/20/2012 04:50:00) HDL [>=61 mg/dL] 21 mg/dL *LOW* (10/20/2012 04:50:00) LDL [<=99 mg/dL] 93 mg/dL (10/20/2012 04:50:00) Hgb A1C [<=5.6 %] 9.8 % *HI* (10/19/2012 13:10:00) Digoxin Lvl [0.8-2.0 ng/mL] 0.2 ng/mL *LOW* (10/20/2012 04:50:00) 4Result Comment: The eGFR is calculated using the [...] be mul tiplied by the estimated BMI. 5Result Comment: The eGFR is calculated using [...] values reflect the clinical guidelines of the [place] [employer]. 8Interpretive Data: Adult reference range values reflect the clinical guidelines of the [place] [employer]. 9Interpretive Data: Adult reference range values reflect the clinical guidelines of the [place] [employer]. 10Interpretive Data: Elevated results are in line with increasing severity of congestive heart failure. Minor elevations between 100 and 300 may be seen with Myocardial Ischemia, Sodium retaining drugs, and compensated/treated heart failure. 11Interpretive Data: Elevated results are in line with increasing severity of congestive heart failure. Minor elevations between 100 and 300 may be seen with Myocardial Ischemia, Sodium retaining drugs, and compensated/treated heart failure. 12Interpretive Data: Elevated results are in line with increasing severity of congestive heart failure. Minor elevations between 100 and 300 may be seen with Myocardial Ischemia, Sodium retaining drugs, and compensated/treated heart failure. HEMATOLOGY Most recent to oldest [Reference Range]: 1 2 3 WBC [3.7-10.4 K/CMM] 7.3 K/CMM (10/20/2012 04:50:00) 6.3 K/CMM (10/19/2012 06:30:00) 6.4 K/CMM (10/18/2012 04:40:00) RBC [4.70-6.10 M/CMM] 5.15 M/CMM (10/20/2012 04:50:00) 4.69 M/CMM *LOW* (10/19/2012 06:30:00) 4.73 M/CMM (10/18/2012 04:40:00) Hgb [14.0-18.0 g/dL] 15.6 g/dL (10/20/2012 04:50:00) 14.2 g/dL (10/19/2012 06:30:00) 14.3 g/dL (10/18/2012 04:40:00) Hct [42.0-54.0 %] 45.7 % (10/20/2012 04:50:00) 41.9 % *LOW* (10/19/2012 06:30:00) 42.5 % (10/18/2012 04:40:00) MCV [80.0-94.0 fL] 88.7 fL (10/20/2012 04:50:00) 89.3 fL (10/19/2012 06:30:00) 90.0 fL (10/18/2012 04:40:00) MCH [27.0-31.0 pg] 30.3 pg (10/20/2012 04:50:00) 30.2 pg (10/19/2012 06:30:00) 30.2 pg (10/18/2012 04:40:00) MCHC [32.0-36.0 g/dL] 34.2 g/dL (10/20/2012 04:50:00) 33.8 g/dL (10/19/2012 06:30:00) 33.5 g/dL (10/18/2012 04:40:00) RDW [11.5-14.5 %] 14.5 % (10/20/2012 04:50:00) 14.1 % (10/19/2012 06:30:00) 14.0 % (10/18/2012 04:40:00) Platelet [133-450 K/CMM] 176 K/CMM (10/20/2012 04:50:00) 169 K/CMM (10/19/2012 06:30:00) 189 K/CMM (10/18/2012 04:40:00) MPV [7.4-10.4 fL] 8.8 fL (10/20/2012 04:50:00) 8.5 fL (10/19/2012 06:30:00) 8.9 fL (10/18/2012 04:40:00) Segs [45.0-75.0 %] 74.8 % (10/20/2012 04:50:00) 72.2 % (10/19/2012 06:30:00) 77.1 % *HI* (10/18/2012 04:40:00) Lymphocytes [20.0-40.0 %] 16.5 % *LOW* (10/20/2012 04:50:00) 20.6 % (10/19/2012 06:30:00) 17.5 % *LOW* (10/18/2012 04:40:00) Monocytes [2.0-12.0 %] 6.1 % (10/20/2012 04:50:00) 4.5 % (10/19/2012 06:30:00) 4.5 % (10/18/2012 04:40:00) Eosinophils [0.0-4.0 %] 2.4 % (10/20/2012 04:50:00) 2.3 % (10/19/2012 06:30:00) 0.5 % (10/18/2012 04:40:00) Basophils [0.0-1.0 %] 0.2 % (10/20/2012 04:50:00) 0.4 % (10/19/2012 06:30:00) 0.4 % (10/18/2012 04:40:00) Segs-Bands # [1.5-8.1 K/CMM] 5.5 K/CMM (10/20/2012 04:50:00) 4.6 K/CMM (10/19/2012 06:30:00) 4.9 K/CMM (10/18/2012 04:40:00) Lymphocytes # [1.0-5.5 K/CMM] 1.2 K/CMM (10/20/2012 04:50:00) 1.3 K/CMM (10/19/2012 06:30:00) 1.1 K/CMM (10/18/2012 04:40:00) Monocytes # [0.0-0.8 K/CMM] 0.5 K/CMM (10/20/2012 04:50:00) 0.3 K/CMM (10/19/2012 06:30:00) 0.3 K/CMM (10/18/2012 04:40:00) Eosinophils # [0.0-0.5 K/CMM] 0.2 K/CMM (10/20/2012 04:50:00) 0.1 K/CMM (10/19/2012 06:30:00) 0.0 K/CMM (10/18/2012 04:40:00) Basophils # [0.0-0.2 K/CMM] 0.0 K/CMM (10/20/2012 04:50:00) 0.0 K/CMM (10/19/2012 06:30:00) 0.0 K/CMM (10/18/2012 04:40:00) PT [12.0-14.7 seconds] 15.5 seconds *HI* (10/17/2012 22:28:00) INR [0.85-1.17] 1.21 13 *HI* (10/17/2012 22:28:00) PTT [22.9-35.8 seconds] 28.5 seconds 14 (10/17/2012 22:28:00) 13Interpretive Data: RECOMMENDED RANGES FOR PROTIME INR: 2.0-3.0 for most medical and surgical thromboembolic states. 2.5-3.5 for artificial heart valves and recurrent embolism. INR SHOULD BE USED ONLY FOR PATIENTS ON STABLE ANTICOAGULANT THERAPY. 14Interpretive Data: Heparin Therapeutic Range: 57 - 92 Seconds Procedures Procedures Date Related Diagnosis Repair of ligament of knee joint 1 1left knee ligament surgery
--- OUTSIDE RECORDS SUMMARY | 2018-12-19 01:22 | XMS REPORT | CCD ---
Author Author Auto Generated Organization [facility] Address Unknown Phone Unavailable Care Team Providers [employer] Dr[employer] Helper Name Role Phone Elian Crane CP Allergies, [...] Duration: 30 day, Stop date: 02/03/13 17:31:00Max [id number]/day (4 gm/day). (Same as: Tylenol) enalapril 1.25 [...] [Negative] Negative 1 (01/06/2013 07:00:00) 1Interpretive Data: [employer] Clostridium difficile assay utilizes loop-mediated isothermal DNA [...] values reflect the clinical guidelines of the [place] [employer]. 8Interpretive Data: Adult reference range values reflect the clinical guidelines of the [place] [employer]. 9Interpretive Data: Elevated results are [...]
--- OUTSIDE RECORDS SUMMARY | 2018-12-19 01:22 | XMS REPORT | CCD ---
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 Role Phone Randolph Ennis Amberkley CP Allergies, Adverse Reactions, Alerts Substance Reaction Status NKDA Active Problem List Condition Effective Dates Status [D]Anterior chest wall pain 12/07/2011 Active Anxiety Resolved BP+ - Hypertension Active Cardiomyopathy Resolved CHF - Congestive heart failure Active CHF - Congestive heart failure Active Depression Active dm Active Down syndrome Active GERD - Gastro-esophageal reflux disease Active H/O: schizophrenia Active HTN Active 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 NIDDM Active Obese build Active Sleep apnea Active Medications Medication Instructions Start Date End Date Status Haldol 5 mg, 1 mL, Route: IM, Drug form: 02/26/2013 02/27/2013 Completed INJ, ONCE, Start date: 02/26/13 16:26:00, Stop date: 02/26/13 16:26:00(Same as: Haldol) ALPRAZOLam 1 mg oral =2 mg, PO, Bedtime, # 30 tab, 0 02/27/2013 Ordered tablet, Refill(s) disintegrating ALPRAZOLam 1 mg oral 1 mg=1 tab, PO, BID, # 60 tab, 0 02/27/2013 Ordered tablet, Refill(s) disintegrating thiothixene 5 mg 5 mg=1 cap, PO, TID, # 90 cap, 0 02/27/2013 Ordered oral capsule Refill(s) Klonopin 2 mg oral 2 mg=1 tab, PO, Bedtime, 0 02/25/2013 02/27/2013 Discontinued tablet Refill(s) Marion 5/325 oral Route: PO, Drug Form: TAB, Dosing 02/25/2013 02/25/2013 Deleted tablet Weight 129.545, kg, Q6H, PRN as needed for pain, Start date: 02/25/13 20:12:00, Duration: 30 day, Stop date: 03/27/13 20:11:00 Sodium Chloride 0.9% 250 mL, Route: IVPB, Start date: 02/25/2013 02/27/2013 Discontinued IV 02/25/13 21:05:00, Duration: 30 day, Stop date: 03/27/13 21:04:00, PRN Line Flush BD Normal Saline 10 mL, Route: IVP, Drug Form: INJ, 02/25/2013 02/27/2013 Discontinued Flush PRN, PRN Line Flush, Start date: 02/25/13 21:05:00, Duration: 30 day, Stop date: 03/27/13 21:04:00(Same as: BD Posiflush) Klonopin 2 mg, 2 tab, Route: PO, Drug form: 02/25/2013 02/27/2013 Discontinued TAB, Bedtime, Dosing Weight 129.545, kg, Start date: 02/25/13 21:00:00, Duration: 30 day, Stop date: 03/26/13 21:00:00(Same As: Klonopin) Dextrose 50% Syringe 12.5 gm, 25 mL, Route: IVP, Drug 02/26/2013 02/27/2013 Discontinued Form: INJ, Dosing Weight 129.545, kg, PRN, PRN Blood Glucose Results, Start date: 02/26/13 15:33:00, Duration: 30 day, Stop date: 03/28/13 15:32:00 Dextrose 50% Syringe 25 gm, 50 mL, Route: IVP, Drug 02/26/2013 02/27/2013 Discontinued Form: INJ, Dosing Weight 129.545, kg, PRN, PRN Blood Glucose Results, Start date: 02/26/13 15:33:00, Duration: 30 day, Stop date: 03/28/13 15:32:00 glucagon 1 mg, Route: IM, Drug form: 02/26/2013 02/27/2013 Discontinued PDR/INJ, PRN, Dosing Weight 129.545, kg, PRN Blood Glucose Results, Start date: 02/26/13 15:33:00, Duration: 30 day, Stop date: 03/28/13 15:32:00 insulin aspart 4 unit, 0.04 mL, Route: SUB-Q, Drug 02/26/2013 02/27/2013 Discontinued form: SOLN, TID-Before Meals, Dosing Weight 129.545, kg, PRN Blood Glucose Results, Start date: 02/26/13 15:33:00, Duration: 30 day, Stop date: 03/28/13 15:32:00Roll in palms of hands gently; Do not shake vigorously. (Same as: NovoLog)"single patient use only" Stable for 28 days at room temperature.Expires in days from Date insulin aspart 5 unit, 0.05 mL, Route: SUB-Q, Drug 02/26/2013 02/27/2013 Discontinued form: SOLN, TID-Before Meals, Dosing Weight 129.545, kg, PRN Blood Glucose Results, Start date: 02/26/13 15:33:00, Duration: 30 day, Stop date: 03/28/13 15:32:00Roll in palms of hands gently; Do not shake vigorously. (Same as: NovoLog)"single patient use only" Stable for 28 days at room temperature.Expires in days from Date insulin aspart 2 unit, 0.02 mL, Route: SUB-Q, Drug 02/26/2013 02/27/2013 Discontinued form: SOLN, TID-Before Meals, Dosing Weight 129.545, kg, PRN Blood Glucose Results, Start date: 02/26/13 15:33:00, Duration: 30 day, Stop date: 03/28/13 15:32:00Roll in palms of hands gently; Do not shake vigorously. (Same as: NovoLog)"single patient use only" Stable for 28 days at room temperature.Expires in days from Date insulin aspart 3 unit, 0.03 mL, Route: SUB-Q, Drug 02/26/2013 02/27/2013 Discontinued form: SOLN, TID-Before Meals, Dosing Weight 129.545, kg, PRN Blood Glucose Results, Start date: 02/26/13 15:33:00, Duration: 30 day, Stop date: 03/28/13 15:32:00Roll in palms of hands gently; Do not shake vigorously. (Same as: NovoLog)"single patient use only" Stable for 28 days at room temperature.Expires in days from Date insulin aspart 1 unit, 0.01 mL, Route: SUB-Q, Drug 02/26/2013 02/27/2013 Discontinued form: SOLN, TID-Before Meals, Dosing Weight 129.545, kg, PRN Blood Glucose Results, Start date: 02/26/13 15:33:00, Duration: 30 day, Stop date: 03/28/13 15:32:00Roll in palms of hands gently; Do not shake vigorously. (Same as: NovoLog)"single patient use only" Stable for 28 days at room temperature.Expires in days from Date albuterol-ipratropiu 3 ml, Route: NEB, Drug Form: SOLN, 02/26/2013 02/27/2013 Discontinued m 2.5-0.5 mg Dosing Weight 129.545, kg, PRN, PRN inhalation solution Respiratory Protocol, Start date: 02/26/13 10:07:00, Duration: 30 day, Stop date: 03/28/13 10:06:00(Same as: Duoneb) Xanax 2.5 mg, PO, 0 Refill(s) 02/25/2013 02/27/2013 Discontinued Xanax 2 mg, 2 tab, Route: PO, Drug form: 02/25/2013 02/27/2013 Discontinued TAB, Bedtime, Start date: 02/25/13 21:00:00, Duration: 30 day, Stop date: 03/26/13 21:00:00With food or milk(Same as: Xanax) Xanax 1 mg, 1 tab, Route: PO, Drug form: 02/25/2013 02/27/2013 Discontinued TAB, BID, Start date: 02/25/13 17:00:00, Duration: 30 day, Stop date: 03/27/13 9:00:00With food or milk(Same as: Xanax) Cogentin 1 mg, 1 tab, Route: PO, Drug form: 02/25/2013 02/25/2013 Discontinued TAB, TID, Start date: 02/25/13 17:00:00, Duration: 30 day, Stop date: 03/27/13 13:00:00(Same As: Cogentin) Navane 5 mg, 1 cap, Route: PO, Drug form: 02/25/2013 02/27/2013 Discontinued CAP, TID, Start date: 02/25/13 17:00:00, Duration: 30 day, Stop date: 03/27/13 13:00:00(Same As: Navane) influenza virus 0.5 ml, Route: IM, Drug Form: SUSP, 12/25/2012 12/25/2012 Completed vaccine, inactivated Start date: 12/25/12 9:00:00, Stop date: 12/25/12 9:00:00 acetaminophen-hydroc 2 tab, Route: PO, Drug Form: TAB, 02/25/2013 02/27/2013 Discontinued odone 325 mg-5 mg Q6H, PRN Pain Score 4-6, Start oral tablet date: 02/25/13 21:04:00, Duration: 30 day, Stop date: 03/27/13 21:03:00(Same as: Marion 325/5) Do not exceed 4gm/day of acetaminophen. acetaminophen-hydroc 1 tab, Route: PO, Drug Form: TAB, 02/25/2013 02/27/2013 Discontinued odone 325 mg-5 mg Q6H, PRN Pain Score 4-6, Start oral tablet date: 02/25/13 21:03:00, Duration: 30 day, Stop date: 03/27/13 21:02:00(Same as: Marion 325/5) Do not exceed 4gm/day of acetaminophen. Immunizations Vaccine Date Status influenza virus vaccine, inactivated 12/25/2012 Auth (Verified) Vital Signs Most recent to oldest [Reference Range]: 1 2 3 Height 167.64 cm (02/25/2013 11:30:00) 170.18 cm (02/25/2013 04:34:00) Temperature Oral [96.4-99.1 DegF] 97.8 DegF (02/27/2013 15:00:00) 98.3 DegF (02/27/2013 11:00:00) 97.9 DegF (02/27/2013 07:37:00) Systolic Blood Pressure [90-140 mmHg] 127 mmHg (02/27/2013 15:00:00) 141 mmHg *HI* (02/27/2013 11:00:00) 127 mmHg (02/27/2013 07:37:00) Diastolic Blood Pressure [60-90 mmHg] 83 mmHg (02/27/2013 15:00:00) 104 mmHg *HI* (02/27/2013 11:00:00) 92 mmHg *HI* (02/27/2013 07:37:00) Respiratory Rate [14-20 BRMIN] 18 BRMIN (02/27/2013 15:00:00) 18 BRMIN (02/27/2013 11:00:00) 18 BRMIN (02/27/2013 07:37:00) Peripheral Pulse Rate [60-100 bpm] 89 bpm (02/27/2013 15:00:00) 92 bpm (02/27/2013 11:00:00) 81 bpm (02/27/2013 07:37:00) Weight 129.545 kg (02/25/2013 11:30:00) 129.545 kg (02/25/2013 04:34:00) Results BEDSIDE GLUCOSE TESTING Most recent to oldest [Reference Range]: 1 2 3 Glucose POC [70-99 mg/dL] 233 mg/dL 1 *HI* (02/27/2013 16:35:00) 145 mg/dL 2 *HI* (02/27/2013 12:03:00) 152 mg/dL 3 *HI* (02/27/2013 06:10:00) Gluc POC Comment 1 Notified RN/MD *NA* (02/27/2013 16:35:00) Notified RN/MD *NA* (02/27/2013 12:03:00) Notified RN/MD *NA* (02/26/2013 17:13:00) 1Interpretive Data: Upper Reportable Limit: 200 mg/dL. 2Interpretive Data: Upper Reportable Limit: 200 mg/dL. 3Interpretive Data: Upper Reportable Limit: 200 mg/dL. URINALYSIS Most recent to oldest [Reference Range]: 1 2 3 UA Turbidity [Clear] Cloudy *ABN* (02/25/2013 05:00:00) UA Color [Yellow] Yellow *NA* (02/25/2013 05:00:00) UA pH [5.0-8.0] 6.0 (02/25/2013 05:00:00) UA Spec Grav [<=1.030] >=1.030 *ABN* (02/25/2013 05:00:00) UA Glucose [Negative] Negative (02/25/2013 05:00:00) UA Blood [Negative] Trace *ABN* (02/25/2013 05:00:00) UA Ketones [Negative] Trace *ABN* (02/25/2013 05:00:00) UA Protein [Negative mg/dL] >=300 mg/dL *ABN* (02/25/2013 05:00:00) UA Urobilinogen [0.1-1.0 EU/dL] 1.0 EU/dL (02/25/2013 05:00:00) UA Bili [Negative] Large 4 *ABN* (02/25/2013 05:00:00) UA Leuk Est [Negative] Negative (02/25/2013 05:00:00) UA Nitrite [Negative] Positive *ABN* (02/25/2013 05:00:00) UA WBC [None Seen /HPF] 6-10 /HPF *ABN* (02/25/2013 05:00:00) UA RBC [0-2 /HPF] 3-5 /HPF *ABN* (02/25/2013 05:00:00) UA Bacteria [None Seen /HPF] Moderate /HPF (02/25/2013 05:00:00) UA Sq Epi [Few /LPF] Occasional /LPF (02/25/2013 05:00:00) UA Hyal Cast [0-2] 3-5 (02/25/2013 05:00:00) UA Amorph Althea [None Seen /HPF] Many /HPF *ABN* (02/25/2013 05:00:00) UA Mucus [None Seen /LPF] Few /LPF (02/25/2013 05:00:00) Micro? Performed (02/25/2013 05:00:00) 4Result Comment: Interpret positive bilirubin results with caution. Confirmatory testing not possible due to the unavailability of reagent. Correlation with serum chemistry results recommended. CHEMISTRY Most recent to oldest [Reference Range]: 1 2 3 Sodium Lvl [135-145 mEq/L] 137 mEq/L (02/25/2013 05:51:00) Potassium Lvl [3.5-5.1 mEq/L] 4.0 mEq/L (02/25/2013 05:51:00) Chloride Lvl [95-109 mEq/L] 102 mEq/L (02/25/2013 05:51:00) CO2 [24-32 mEq/L] 25 mEq/L (02/25/2013 05:51:00) AGAP [10.0-20.0 mEq/L] 14.0 mEq/L (02/25/2013 05:51:00) Creatinine Lvl [0.5-1.4 mg/dL] 1.2 mg/dL (02/25/2013 05:51:00) eGFR 71 mL/min/1.73m2 5 *NA* (02/25/2013 05:51:00) BUN [7-22 mg/dL] 22 mg/dL (02/25/2013 05:51:00) Glucose Lvl [70-99 mg/dL] 155 mg/dL 6 *HI* (02/25/2013 05:51:00) Calcium Lvl [8.5-10.5 mg/dL] 8.7 mg/dL (02/25/2013 05:51:00) Phosphorus [2.5-4.5 mg/dL] 4.2 mg/dL (02/25/2013 05:51:00) Magnesium Lvl [1.8-2.4 mg/dL] 1.7 mg/dL *LOW* (02/25/2013 05:51:00) TSH [0.360-3.740 uIU/mL] 1.410 uIU/mL (02/25/2013 05:51:00) U Amph Scr [Negative] Negative *NA* (02/25/2013 05:00:00) U Brigette Scr [Negative] Negative *NA* (02/25/2013 05:00:00) U Benzodia Scr [Negative] Positive *ABN* (02/25/2013 05:00:00) U Cocaine Scr [Negative] Negative *NA* (02/25/2013 05:00:00) U Opiate Scr [Negative] Negative *NA* (02/25/2013 05:00:00) U Phencyc Scr [Negative] Negative *NA* (02/25/2013 05:00:00) U Cannab Scr [Negative] Negative *NA* (02/25/2013 05:00:00) UDS Note See Note 7 (02/25/2013 05:00:00) Acetaminoph Lvl [10-20] <2 (02/25/2013 05:51:00) Etoh (%) <.003 % 8 *NA* (02/25/2013 05:51:00) Ethanol Lvl <3 mg/dL 9 *NA* (02/25/2013 05:51:00) 5Result Comment: The eGFR is calculated using [...] be mul tiplied by the estimated BMI. 6Interpretive Data: Adult reference range values reflect the clinical guidelines of the [place] [employer]. 7Interpretive Data: Drugs reported as positive have not [...] ng/mL Marijuana metabolites 50 ng/mL Methadone 300 ng/mL Urine alcohol 20 mg/dL 8Interpretive Data: Negative Range: <0.003% Toxic Range: >0.25% 9Interpretive Data: Negative Range: <3 mg/dL Toxic Range: >250 mg/dL HEMATOLOGY Most recent to oldest [Reference Range]: 1 2 3 WBC [3.7-10.4 K/CMM] 7.8 K/CMM (02/25/2013 05:51:00) RBC [4.70-6.10 M/CMM] 5.69 M/CMM (02/25/2013 05:51:00) Hgb [14.0-18.0 g/dL] 15.6 g/dL (02/25/2013 05:51:00) Hct [42.0-54.0 %] 47.5 % (02/25/2013 05:51:00) MCV [80.0-94.0 fL] 83.5 fL (02/25/2013 05:51:00) MCH [27.0-31.0 pg] 27.4 pg (02/25/2013 05:51:00) MCHC [32.0-36.0 g/dL] 32.8 g/dL (02/25/2013 05:51:00) RDW [11.5-14.5 %] 16.0 % *HI* (02/25/2013 05:51:00) Platelet [133-450 K/CMM] 237 K/CMM (02/25/2013 05:51:00) MPV [7.4-10.4 fL] 10.0 fL (02/25/2013 05:51:00) Segs [45.0-75.0 %] 77.6 % *HI* (02/25/2013 05:51:00) Lymphocytes [20.0-40.0 %] 13.6 % *LOW* (02/25/2013 05:51:00) Monocytes [2.0-12.0 %] 7.9 % (02/25/2013 05:51:00) Eosinophils [0.0-4.0 %] 0.6 % (02/25/2013 05:51:00) Basophils [0.0-1.0 %] 0.3 % (02/25/2013 05:51:00) Segs-Bands # [1.5-8.1 K/CMM] 6.0 K/CMM (02/25/2013 05:51:00) Lymphocytes # [1.0-5.5 K/CMM] 1.1 K/CMM (02/25/2013 05:51:00) Monocytes # [0.0-0.8 K/CMM] 0.6 K/CMM (02/25/2013 05:51:00) Eosinophils # [0.0-0.5 K/CMM] 0.1 K/CMM (02/25/2013 05:51:00) Basophils # [0.0-0.2 K/CMM] 0.0 K/CMM (02/25/2013 05:51:00)
--- OUTSIDE RECORDS SUMMARY | 2018-12-19 01:22 | XMS REPORT | CCD ---
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 Phone Jacob Fernandez CP Allergies, Adverse Reactions, Alerts Substance Reaction [...] Medication Instructions Start Date End Date Status 03/28 NS 1,000 mL 1,000 mL, Rate: 100 ml/hr, Infuse 12/24/2012 12/24/2012 Discontinued over: 10 hr, Route: IV, Dosing Weight 111.364 kg, Total Volume: 1,000, Start date: 12/24/12 14:37:00, Duration: 30 day, Stop date: 01/23/13 14:36:00 GoLYTELY 2,000 mL, Route: PO, Drug Form: 12/25/2012 12/25/2012 Completed PDR/REC, Dosing Weight 111.364, kg, ONCE, NOW, Start date: 12/25/12 19:36:00, Stop date: 12/25/12 19:36:00 Saline Flush 0.9% 5 ml, Route: IVP, Drug Form: INJ, 12/24/2012 12/24/2012 Discontinued Dosing Weight 129.545, kg, PRN, PRN Line Flush, Start date: 12/24/12 13:49:00, Duration: 30 day, Stop date: 01/23/13 13:48:00 ondansetron 4 mg, 2 mL, Route: IVP, Drug form: 12/24/2012 12/26/2012 Discontinued INJ, Q8H, Dosing Weight 129.545, kg, PRN Nausea & Vomiting, Start date: 12/24/12 13:49:00, Duration: 30 day, Stop date: 01/23/13 13:48:00 morphine Sulfate 2 mg, 1 mL, Route: IVP, Drug form: 12/24/2012 12/26/2012 Discontinued INJ, Q3H, Dosing Weight 129.545, kg, PRN Pain Score 1-5, Start date: 12/24/12 13:49:00, Duration: 30 day, Stop date: 01/23/13 13:48:00 aspirin 325 mg, 1 tab, Route: PO, Drug 12/24/2012 12/24/2012 Completed form: TAB, ONCE, Dosing Weight 111.364, kg, Start date: 12/24/12 15:09:00, Stop date: 12/24/12 15:09:00 1/2 NS 1,000 mL 1,000 mL, Rate: 50 ml/hr, Infuse 12/24/2012 12/25/2012 Discontinued over: 20 hr, Route: IV, Dosing Weight 111.364 kg, Total Volume: 1,000, Start date: 12/24/12 15:56:00, Duration: 30 day, Stop date: 01/23/13 15:55:00 spironolactone 25 mg, Route: PO, Drug form: TAB, 12/25/2012 12/24/2012 Canceled Daily, Dosing Weight 111.364, kg, Start date: 12/25/12 9:00:00, Duration: 30 day, Stop date: 01/23/13 9:00:00 Flagyl 500 mg oral 500 mg, 1 tab, PO, Q8H, 21 tab, 12/26/2012 12/26/2012 Discontinued tablet Substitution Allowed Cipro 500 mg oral 500 mg, 1 tab, PO, Q12H, 14 tab, 12/26/2012 12/26/2012 Discontinued tablet Substitution Allowed, TAB risperidone 3 mg, 3 tab, Route: PO, Drug form: 12/24/2012 12/26/2012 Discontinued TAB, Bedtime, Dosing Weight 111.364, kg, Start date: 12/24/12 21:00:00, Duration: 30 day, Stop date: 01/22/13 21:00:00 mirtazapine 30 mg, 2 tab, Route: PO, Drug form: 12/24/2012 12/26/2012 Discontinued TAB, Bedtime, Dosing Weight 111.364, kg, Start date: 12/24/12 21:00:00, Duration: 30 day, Stop date: 01/22/13 21:00:00 lisinopril 40 mg, 2 tab, Route: PO, Drug form: 12/25/2012 12/24/2012 Discontinued TAB, Daily, Dosing Weight 111.364, kg, Start date: 12/25/12 9:00:00, Duration: 30 day, Stop date: 01/23/13 9:00:00 furosemide 40 mg 40 mg, 1 tab, Route: PO, Drug form: 12/24/2012 12/24/2012 Canceled oral tablet TAB, BID, Dosing Weight 111.364, kg, Start date: 12/24/12 17:00:00, Duration: 30 day, Stop date: 01/23/13 9:00:00 clonazepam 2 mg, 4 tab, Route: PO, Drug form: 12/24/2012 12/26/2012 Discontinued TAB, Bedtime, Dosing Weight 111.364, kg, Start date: 12/24/12 21:00:00, Duration: 30 day, Stop date: 01/22/13 21:00:00 aspirin 81 mg, 1 tab, Route: PO, Drug form: 12/25/2012 12/26/2012 Discontinued CHEWTAB, Daily, Dosing Weight 111.364, kg, Start date: 12/25/12 9:00:00, Duration: 30 day, Stop date: 01/23/13 9:00:00 Flagyl 500 mg, 1 tab, Route: PO, Drug 12/24/2012 12/26/2012 Discontinued form: TAB, [id number], Dosing Weight 129.545, kg, Start date: 12/24/12 15:00:00, Duration: 30 day, Stop date: 01/23/13 9:00:00 Cipro I.V. 400 400 mg, 200 mL, Route: IV, Drug 12/24/2012 12/26/2012 Discontinued mg/200 mL form: INJ, [id number], Dosing Weight intravenous solution 129.545, kg, Start date: 12/24/12 15:00:00, Duration: 30 day, Stop date: 01/23/13 3:00:00 ondansetron 4 mg, 2 mL, Route: IVP, Drug form: 12/26/2012 12/26/2012 Discontinued INJ, ONCE, Dosing Weight 111.364, kg, PRN Nausea & Vomiting, Start date: 12/26/12 9:22:00 naloxone 0.04 mg, 0.1 mL, Route: IVP, Drug 12/26/2012 12/26/2012 Discontinued form: INJ, Q2MIN, Dosing Weight 111.364, kg, PRN Narcotic Reversal, Start date: 12/26/12 9:22:00, Duration: 8 doses or times, Stop date: Limited # of times morphine Sulfate 2 mg, 1 mL, Route: IVP, Drug form: 12/26/2012 12/26/2012 Discontinued INJ, Q5Min, Dosing Weight 111.364, kg, PRN Pain Score 4-6, Start date: 12/26/12 9:22:00, Duration: 5 doses or times, Stop date: Limited # of times flumazenil 0.2 mg, 2 mL, Route: IVP, Drug 12/26/2012 12/26/2012 Discontinued form: INJ, PRN, Dosing Weight 111.364, kg, PRN Benzodiazepine Reversal, Initial dose, Start date: 12/26/12 9:22:00, Duration: 30 day, Stop date: 01/25/13 9:21:00 Lactated Ringers 1,000 mL, Rate: 25 ml/hr, Infuse 12/26/2012 12/26/2012 Discontinued Injection IV 1,000 over: 40 hr, Route: IV, Dosing mL Weight 111.364 kg, Total Volume: 1,000, Start date: 12/26/12 9:23:00, Duration: 30 day, Stop date: 01/25/13 9:22:00 Sodium Chloride 0.9% 25 mL, Route: IV, Start date: 12/24/2012 12/26/2012 Discontinued IV 12/24/12 11:10:00, Duration: 30 day, Stop date: 01/23/13 11:09:00, PRN Line Flush BD Normal Saline 10 mL, Route: IV, Drug Form: INJ, 12/24/2012 12/26/2012 Discontinued Flush PRN, PRN Line Flush, Start date: 12/24/12 11:10:00, Duration: 30 day, Stop date: 01/23/13 11:09:00 influenza virus 0.5 ml, Route: IM, Drug Form: SUSP, 12/25/2012 12/25/2012 Completed vaccine, inactivated Start date: 12/25/12 9:00:00, Stop date: 12/25/12 9:00:00 morphine Sulfate 4 mg, 1 mL, Route: IVP, Drug form: 12/24/2012 12/26/2012 Discontinued INJ, ONCE, Dosing Weight 129.545, kg, PRN Pain Score 6-10, Priority: STAT, Start date: 12/24/12 13:49:00 Prinivil 40 mg, 2 tab, Route: PO, Drug form: 12/24/2012 12/26/2012 Discontinued TAB, Daily, Dosing Weight 111.364, kg, Start date: 12/24/12 16:00:00, Duration: 30 day, Stop date: 01/23/13 9:00:00 Flagyl 500 mg oral 500 mg, 1 tab, PO, Q8H, 21 tab, 12/26/2012 01/02/2013 Ordered tablet Substitution Allowed Cipro 500 mg oral 500 mg, 1 tab, PO, Q12H, 14 tab, 12/26/2012 01/02/2013 Ordered tablet Substitution Allowed, TAB hydrALAZINE 10 mg, 1 tab, Route: PO, Drug form: 12/24/2012 12/26/2012 Discontinued TAB, Q6H, Dosing Weight 111.364, kg, PRN Elevated BP, for sbp > 160, Start date: 12/24/12 15:10:00, Duration: 30 day, Stop date: 01/23/13 15:09:00 Zofran 4 mg, Route: IVP, Drug form: INJ, 12/24/2012 12/24/2012 Completed ONCE, Dosing Weight 129.545, kg, Priority: STAT, Start date: 12/24/12 11:07:00, Stop date: 12/24/12 11:07:00 influenza virus 0.5 ml, Route: IM, Drug Form: SUSP, 12/25/2012 12/25/2012 Completed vaccine, inactivated Daily, Start date: 12/25/12 9:00:00, Duration: 1 doses or times, Stop date: 12/25/12 9:00:00 Tylenol 650 mg, 2 tab, Route: PO, Drug 12/24/2012 12/26/2012 Discontinued form: TAB, Q4H, Dosing Weight 129.545, kg, PRN Fever, Start date: 12/24/12 13:56:00, Duration: 30 day, Stop date: 01/23/13 13:55:00 Zofran 4 mg, Route: IVP, Drug form: INJ, 12/24/2012 12/24/2012 Completed ONCE, Dosing Weight 129.545, kg, Priority: STAT, Start date: 12/24/12 11:06:00, Stop date: 12/24/12 11:06:00 Immunizations Vaccine Date Status influenza virus vaccine, inactivated 12/25/2012 Auth (Verified) Vital Signs Most recent to oldest [Reference Range]: 1 2 3 Height 170.18 cm (12/24/2012 14:35:00) 170.18 cm (12/24/2012 08:34:00) Current Weight 112.727 kg (12/26/2012 08:00:00) Temperature Oral [96.4-99.1 DegF] 96.3 DegF *LOW* (12/26/2012 06:04:00) 96.2 DegF *LOW* (12/25/2012 23:52:00) 97.3 DegF (12/25/2012 16:44:00) Systolic Blood Pressure [90-140 mmHg] 132 mmHg (12/26/2012 10:50:00) 111 mmHg (12/26/2012 10:30:00) 112 mmHg (12/26/2012 10:15:00) Diastolic Blood Pressure [60-90 mmHg] 85 mmHg (12/26/2012 10:50:00) 81 mmHg (12/26/2012 10:30:00) 73 mmHg (12/26/2012 10:15:00) Respiratory Rate [14-20 BRMIN] 17 BRMIN (12/26/2012 10:50:00) 18 BRMIN (12/26/2012 10:30:00) 16 BRMIN (12/26/2012 10:15:00) Peripheral Pulse Rate [60-100 bpm] 70 bpm (12/26/2012 09:05:00) 65 bpm (12/26/2012 06:04:00) 69 bpm (12/25/2012 23:52:00) Weight 111.364 kg (12/24/2012 14:35:00) 129.545 kg (12/24/2012 08:34:00) Results INFECTIOUS DISEASES Most recent to oldest [Reference Range]: 1 2 3 C difficile DNA [Negative] Negative 1 (12/26/2012 09:50:00) 1Interpretive Data: Reply[employer] illum[employer] Clostridium difficile assay utilizes loop-mediated isothermal DNA amplification (LAMP) technology to detect a 204 bp region of the tcdA gene within the PaLoc gene segment present in all known toxigenic C. difficile strains. The assay utilizes FDA cleared IVD reagents. Performance characteristics have be en verified by the [facility] within the [facility]. The [facility] is authorized under the Clinical Labo ratory Improvement Amendment of 1988 (CLIA-88) to perform high complexity testin g. PARASITOLOGY - SEROLOGY Most recent to oldest [Reference Range]: 1 2 3 Cryptospor Ag [Negative] Negative (12/26/2012 09:50:00) BEDSIDE GLUCOSE TESTING Most recent to oldest [Reference Range]: 1 2 3 Glucose POC [70-99 mg/dL] 99 mg/dL 2 (12/26/2012 10:06:00) 98 mg/dL 3 (12/26/2012 09:08:00) 96 mg/dL 4 (12/26/2012 06:03:00) Gluc POC Comment 1 Notified RN/MD *NA* (12/26/2012 10:06:00) Notified RN/MD *NA* (12/25/2012 16:44:00) 2Interpretive Data: Upper Reportable Limit: 200 mg/dL. 3Interpretive Data: Upper Reportable Limit: 200 mg/dL. 4Interpretive Data: Upper Reportable Limit: 200 mg/dL. URINALYSIS Most recent to oldest [Reference Range]: 1 2 3 UA Turbidity [Clear] Slight Cloudy (12/24/2012 10:45:02) UA Color [Yellow] [place] *ABN* (12/24/2012 10:45:02) UA pH [5.0-8.0] 6.0 (12/24/2012 10:45:02) UA Spec Grav [<=1.030] >=1.030 *ABN* (12/24/2012 10:45:02) UA Glucose [Negative] Negative (12/24/2012 10:45:02) UA Blood [Negative] Trace *ABN* (12/24/2012 10:45:02) UA Ketones [Negative] Trace *ABN* (12/24/2012 10:45:02) UA Protein [Negative mg/dL] >=300 mg/dL *ABN* (12/24/2012 10:45:02) UA Urobilinogen [0.1-1.0 EU/dL] 2.0 EU/dL *HI* (12/24/2012 10:45:02) UA Bili [Negative] Moderate 5 *ABN* (12/24/2012 10:45:02) UA Leuk Est [Negative] Negative (12/24/2012 10:45:02) UA Nitrite [Negative] Negative (12/24/2012 10:45:02) UA WBC [None Seen /HPF] 0-2 /HPF (12/24/2012 10:45:02) UA RBC [0-2 /HPF] 0-2 /HPF (12/24/2012 10:45:02) UA Bacteria [None Seen /HPF] Few /HPF (12/24/2012 10:45:02) UA Sq Epi [Few /LPF] Occasional /LPF (12/24/2012 10:45:02) UA Hyal Cast [0-2] 0-2 (12/24/2012 10:45:02) UA Fine Gran [None Seen /LPF] 0-2 /LPF *ABN* (12/24/2012 10:45:02) UA Amorph Althea [None Seen /HPF] Occasional /HPF *ABN* (12/24/2012 10:45:02) UA Mucus [None Seen /LPF] Many /LPF *ABN* (12/24/2012 10:45:02) 5Result Comment: Interpret positive bilirubin results with caution. Confirmatory testing not possible due to the unavailability of reagent. Correlation with ser um chemistry results recommended. CHEMISTRY Most recent to oldest [Reference Range]: 1 2 3 Sodium Lvl [135-145 mEq/L] 142 mEq/L (12/25/2012 05:50:00) 141 mEq/L (12/24/2012 08:35:00) Potassium Lvl [3.5-5.1 mEq/L] 4.0 mEq/L (12/25/2012 05:50:00) 4.2 mEq/L (12/24/2012 08:35:00) Chloride Lvl [95-109 mEq/L] 106 mEq/L (12/25/2012 05:50:00) 104 mEq/L (12/24/2012 08:35:00) CO2 [24-32 mEq/L] 28 mEq/L (12/25/2012 05:50:00) 27 mEq/L (12/24/2012 08:35:00) AGAP [10.0-20.0 mEq/L] 12.0 mEq/L (12/25/2012 05:50:00) 14.2 mEq/L (12/24/2012 08:35:00) Creatinine Lvl [0.5-1.4 mg/dL] 1.2 mg/dL (12/25/2012 05:50:00) 1.3 mg/dL (12/24/2012 08:35:00) eGFR 71 mL/min/1.73m2 6 *NA* (12/25/2012 05:50:00) 65 mL/min/1.73m2 7 *NA* (12/24/2012 08:35:00) BUN [7-22 mg/dL] 17 mg/dL (12/25/2012 05:50:00) 17 mg/dL (12/24/2012 08:35:00) B/C Ratio [6-25] 14 (12/25/2012 05:50:00) 13 (12/24/2012 08:35:00) Glucose Lvl [70-99 mg/dL] 149 mg/dL 8 *HI* (12/25/2012 05:50:00) 137 mg/dL 9 *HI* (12/24/2012 08:35:00) Total Protein [6.4-8.4 g/dL] 5.2 g/dL *LOW* (12/25/2012 05:50:00) 6.7 g/dL (12/24/2012 08:35:00) Albumin Lvl [3.5-5.0 g/dL] 3.1 g/dL *LOW* (12/25/2012 05:50:00) 3.7 g/dL (12/24/2012 08:35:00) Globulin [2.0-4.0 g/dL] 2.1 g/dL (12/25/2012 05:50:00) 3.0 g/dL (12/24/2012 08:35:00) A/G Ratio [0.7-1.6] 1.5 (12/25/2012 05:50:00) 1.2 (12/24/2012 08:35:00) Calcium Lvl [8.5-10.5 mg/dL] 7.6 mg/dL *LOW* (12/25/2012 05:50:00) 8.3 mg/dL *LOW* (12/24/2012 08:35:00) ALT [0-65 unit/L] 63 unit/L (12/25/2012 05:50:00) 78 unit/L *HI* (12/24/2012 08:35:00) AST [0-37 unit/L] 33 unit/L (12/25/2012 05:50:00) 69 unit/L *HI* (12/24/2012 08:35:00) Alk Phos [39-136 unit/L] 114 unit/L (12/25/2012 05:50:00) 137 unit/L *HI* (12/24/2012 08:35:00) Bili Total [0.2-1.3 mg/dL] 1.2 mg/dL (12/25/2012 05:50:00) 1.9 mg/dL *HI* (12/24/2012 08:35:00) Amylase Lvl [25-115 unit/L] 11 unit/L *LOW* (12/24/2012 08:35:00) Lipase Lvl [73-393 unit/L] 76 unit/L (12/24/2012 08:35:00) Total CK [12-191 unit/L] 100 unit/L (12/25/2012 05:50:00) 223 unit/L *HI* (12/24/2012 19:18:00) 131 unit/L (12/24/2012 12:30:00) CK MB [0.5-3.6 ng/mL] 1.1 ng/mL (12/25/2012 05:50:00) 2.1 ng/mL (12/24/2012 19:18:00) 1.1 ng/mL (12/24/2012 12:30:00) CK MB Index [0.0-2.5] 1.1 (12/25/2012 05:50:00) 0.9 (12/24/2012 19:18:00) 0.8 (12/24/2012 12:30:00) Troponin-I [0.00-0.40 ng/mL] 0.02 ng/mL (12/25/2012 05:50:00) 0.03 ng/mL (12/24/2012 19:18:00) 0.04 ng/mL (12/24/2012 12:30:00) 6Result Comment: The eGFR is calculated using [...] be mul tiplied by the estimated BMI. 7Result Comment: The eGFR is calculated using the [...] be mul tiplied by the estimated BMI. 8Interpretive Data: Adult reference range values reflect the clinical guidelines of the [place] [employer]. 9Interpretive Data: Adult reference range values reflect the clinical guidelines of the [place] [employer]. HEMATOLOGY Most recent to oldest [Reference Range]: 1 2 3 WBC [3.7-10.4 K/CMM] 7.1 K/CMM (12/25/2012 05:50:27) 8.9 K/CMM (12/24/2012 08:35:00) RBC [4.70-6.10 M/CMM] 4.46 M/CMM *LOW* (12/25/2012 05:50:27) 4.80 M/CMM (12/24/2012 08:35:00) Hgb [14.0-18.0 g/dL] 13.5 g/dL *LOW* (12/25/2012 05:50:27) 14.6 g/dL (12/24/2012 08:35:00) Hct [42.0-54.0 %] 40.5 % *LOW* (12/25/2012 05:50:27) 44.0 % (12/24/2012 08:35:00) MCV [80.0-94.0 fL] 90.9 fL (12/25/2012 05:50:27) 91.7 fL (12/24/2012 08:35:00) MCH [27.0-31.0 pg] 30.3 pg (12/25/2012 05:50:27) 30.5 pg (12/24/2012 08:35:00) MCHC [32.0-36.0 g/dL] 33.4 g/dL (12/25/2012 05:50:27) 33.3 g/dL (12/24/2012 08:35:00) RDW [11.5-14.5 %] 15.5 % *HI* (12/25/2012 05:50:27) 15.6 % *HI* (12/24/2012 08:35:00) Platelet [133-450 K/CMM] 156 K/CMM (12/25/2012 05:50:27) 215 K/CMM (12/24/2012 08:35:00) MPV [7.4-10.4 fL] 8.5 fL (12/25/2012 05:50:27) 8.8 fL (12/24/2012 08:35:00) Segs [45.0-75.0 %] 79.7 % *HI* (12/25/2012 05:50:27) 81.1 % *HI* (12/24/2012 08:35:00) Lymphocytes [20.0-40.0 %] 11.9 % *LOW* (12/25/2012 05:50:27) 10.8 % *LOW* (12/24/2012 08:35:00) Monocytes [2.0-12.0 %] 6.8 % (12/25/2012 05:50:27) 7.8 % (12/24/2012 08:35:00) Eosinophils [0.0-4.0 %] 1.2 % (12/25/2012 05:50:27) 0.2 % (12/24/2012 08:35:00) Basophils [0.0-1.0 %] 0.4 % (12/25/2012 05:50:27) 0.1 % (12/24/2012 08:35:00) Segs-Bands # [1.5-8.1 K/CMM] 5.6 K/CMM (12/25/2012 05:50:27) 7.2 K/CMM (12/24/2012 08:35:00) Lymphocytes # [1.0-5.5 K/CMM] 0.8 K/CMM *LOW* (12/25/2012 05:50:27) 1.0 K/CMM (12/24/2012 08:35:00) Monocytes # [0.0-0.8 K/CMM] 0.5 K/CMM (12/25/2012 05:50:27) 0.7 K/CMM (12/24/2012 08:35:00) Eosinophils # [0.0-0.5 K/CMM] 0.1 K/CMM (12/25/2012 05:50:27) 0.0 K/CMM (12/24/2012 08:35:00) Basophils # [0.0-0.2 K/CMM] 0.0 K/CMM (12/25/2012 05:50:27) 0.0 K/CMM (12/24/2012 08:35:00) Microbiology Reports PROCEDURE:Culture: Stool STATUS: In Progress BODY SITE: COLLECTED DATE/TIME: 12/26/2012 09:50:00 SOURCE: Stool FREE TEXT SOURCE: PRELIMINARY REPORTS Preliminary Report No Gram Negative Enteric Elayne Isolated Gram Positive Elayne Only Isolated Preliminary Report Normal Enteric Elayne Isolated PROCEDURE:Ova and Parasites Conc and Tri STATUS: Auth (Verified) BODY SITE: COLLECTED DATE/TIME: 12/26/2012 09:50:00 SOURCE: Stool FREE TEXT SOURCE: STAIN REPORTS Stain Report No Ova, Cysts Or Parasites Seen Stain Report No Ova, Cysts Or Parasites Seen
--- OUTSIDE RECORDS SUMMARY | 2018-12-19 01:22 | XMS REPORT | CCD ---
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 Role Phone FroylanromarioLance Nima CP Allergies, Adverse Reactions, Alerts Substance Reaction [...] Medication Instructions Start Date End Date Status [place] 5/325 oral 1-2 tab, PO, Q4-6H, PRN, 15 tab, 02/24/2013 03/01/2013 Suspended tablet Pain, Substitution Allowed, Maintenance influenza virus 0.5 ml, Route: IM, Drug Form: SUSP, 12/25/2012 12/25/2012 Completed vaccine, inactivated Start date: 12/25/12 9:00:00, Stop date: 12/25/12 9:00:00 Immunizations Vaccine Date Status influenza virus vaccine, inactivated 12/25/2012 Auth (Verified) Vital Signs Most recent to oldest [Reference Range]: 1 2 3 Height 172.72 cm (02/24/2013 05:46:00) Temperature Oral [96.4-99.1 DegF] 98.2 DegF (02/24/2013 11:54:00) 98.2 DegF (02/24/2013 09:00:00) 97.7 DegF (02/24/2013 05:46:00) Systolic Blood Pressure [90-140 mmHg] 135 mmHg (02/24/2013 11:54:00) 142 mmHg *HI* (02/24/2013 09:00:00) 131 mmHg (02/24/2013 06:30:00) Diastolic Blood Pressure [60-90 mmHg] 98 mmHg *HI* (02/24/2013 11:54:00) 104 mmHg *HI* (02/24/2013 09:00:00) 101 mmHg *HI* (02/24/2013 06:30:00) Respiratory Rate [14-20 BRMIN] 18 BRMIN (02/24/2013 11:54:00) 18 BRMIN (02/24/2013 09:00:00) 20 BRMIN (02/24/2013 06:30:00) Peripheral Pulse Rate [60-100 bpm] 89 bpm (02/24/2013 11:54:00) 99 bpm (02/24/2013 09:00:00) 86 bpm (02/24/2013 06:30:00) Weight 102.273 kg (02/24/2013 05:46:00) Results CHEMISTRY Most recent to oldest [Reference Range]: 1 Sodium Lvl [135-145 mEq/L] 136 mEq/L (02/24/2013 06:20:00) Potassium Lvl [3.5-5.1 mEq/L] 4.0 mEq/L (02/24/2013 06:20:00) Chloride Lvl [95-109 mEq/L] 103 mEq/L (02/24/2013 06:20:00) CO2 [24-32 mEq/L] 26 mEq/L (02/24/2013 06:20:00) AGAP [10.0-20.0 mEq/L] 11.0 mEq/L (02/24/2013 06:20:00) Creatinine Lvl [0.5-1.4 mg/dL] 1.0 mg/dL (02/24/2013 06:20:00) eGFR 89 mL/min/1.73m2 1 *NA* (02/24/2013 06:20:00) BUN [7-22 mg/dL] 20 mg/dL (02/24/2013 06:20:00) Glucose Lvl [70-99 mg/dL] 222 mg/dL 2 *HI* (02/24/2013 06:20:00) Total Protein [6.4-8.4 g/dL] 7.1 g/dL (02/24/2013 06:20:00) Albumin Lvl [3.5-5.0 g/dL] 3.6 g/dL (02/24/2013 06:20:00) Globulin [2.0-4.0 g/dL] 3.5 g/dL (02/24/2013 06:20:00) A/G Ratio [0.7-1.6] 1.0 (02/24/2013 06:20:00) Calcium Lvl [8.5-10.5 mg/dL] 8.5 mg/dL (02/24/2013 06:20:00) Phosphorus [2.5-4.5 mg/dL] 3.6 mg/dL (02/24/2013 06:20:00) Magnesium Lvl [1.8-2.4 mg/dL] 1.6 mg/dL *LOW* (02/24/2013 06:20:00) ALT [0-65 unit/L] 31 unit/L (02/24/2013 06:20:00) AST [0-37 unit/L] 15 unit/L (02/24/2013 06:20:00) Alk Phos [39-136 unit/L] 147 unit/L *HI* (02/24/2013 06:20:00) Bili Total [0.2-1.3 mg/dL] 0.9 mg/dL (02/24/2013 06:20:00) Bili Direct [0.0-0.3 mg/dL] 0.4 mg/dL *HI* (02/24/2013 06:20:00) Bili Indirect [0.0-1.0 mg/dL] 0.5 mg/dL (02/24/2013 06:20:00) Lipase Lvl [73-393 unit/L] 134 unit/L (02/24/2013 06:20:00) Total CK [12-191 unit/L] 110 unit/L (02/24/2013 06:20:00) CK MB [0.5-3.6 ng/mL] 1.3 ng/mL (02/24/2013 06:20:00) CK MB Index [0.0-2.5] 1.2 (02/24/2013 06:20:00) Troponin-I [0.00-0.40 ng/mL] 0.03 ng/mL (02/24/2013 06:20:00) Myoglobin [25-72 ng/mL] 39 ng/mL (02/24/2013 06:20:00) 1Result Comment: The eGFR is calculated using the [...] be mul tiplied by the estimated BMI. 2Interpretive Data: Adult reference range values reflect the clinical guidelines of the [place] [employer]. HEMATOLOGY Most recent to oldest [Reference Range]: 1 WBC [3.7-10.4 K/CMM] 9.1 K/CMM (02/24/2013 06:20:00) RBC [4.70-6.10 M/CMM] 5.39 M/CMM (02/24/2013:20:00) Hgb [14.0-18.0 g/dL] 14.8 g/dL (02/24/2013 06:20:00) Hct [42.0-54.0 %] 45.6 % (02/24/2013:20:00) MCV [80.0-94.0 fL] 84.5 fL (02/24/2013:20:00) MCH [27.0-31.0 pg] 27.4 pg (02/24/2013:20:00) MCHC [32.0-36.0 g/dL] 32.5 g/dL (02/24/2013:20:00) RDW [11.5-14.5 %] 16.4 % *HI* (02/24/2013 06:20:00) Platelet [133-450 K/CMM] 213 K/CMM (02/24/2013 06:20:00) MPV [7.4-10.4 fL] 9.8 fL (02/24/2013 06:20:00) Segs [45.0-75.0 %] 77.3 % *HI* (02/24/2013 06:20:00) Lymphocytes [20.0-40.0 %] 13.0 % *LOW* (02/24/2013 06:20:00) Monocytes [2.0-12.0 %] 8.1 % (02/24/2013 06:20:00) Eosinophils [0.0-4.0 %] 1.2 % (02/24/2013 06:20:00) Basophils [0.0-1.0 %] 0.4 % (02/24/2013 06:20:00) Segs-Bands # [1.5-8.1 K/CMM] 7.0 K/CMM (02/24/2013 06:20:00) Lymphocytes # [1.0-5.5 K/CMM] 1.2 K/CMM (02/24/2013 06:20:00) Monocytes # [0.0-0.8 K/CMM] 0.7 K/CMM (02/24/2013 06:20:00) Eosinophils # [0.0-0.5 K/CMM] 0.1 K/CMM (02/24/2013 06:20:00) Basophils # [0.0-0.2 K/CMM] 0.0 K/CMM (02/24/2013 06:20:00) PT [12.0-14.7 seconds] 17.2 seconds *HI* (02/24/2013 06:20:00) INR [0.85-1.17] 1.42 3 *HI* (02/24/2013 06:20:00) PTT [22.9-35.8 seconds] 29.6 seconds 4 (02/24/2013 06:20:00) 3Interpretive Data: RECOMMENDED RANGES FOR PROTIME INR: 2.0-3.0 for most medical and surgical thromboembolic states. 2.5-3.5 for artificial heart valves and recurrent embolism. INR SHOULD BE USED ONLY FOR PATIENTS ON STABLE ANTICOAGULANT THERAPY. 4Interpretive Data: Heparin Therapeutic Range: 57 - 92 Seconds
--- OUTSIDE RECORDS SUMMARY | 2018-12-19 01:22 | XMS REPORT | CCD ---
Author Author Auto Generated Organization [facility] Address Unknown Phone Unavailable Care Team Providers Care Turntable Operator Name Role Phone Elian Crane CP [...] Duration: 30 day, Stop date: 02/03/13 17:31:00Max incheyremnojc=[id number]/day (4 gm/day). (Same as: Tylenol) enalapril 1.25 [...] [Negative] Negative 1 (01/06/2013 07:00:00) 1Interpretive Data: [employer] Clostridium difficile assay utilizes loop-mediated isothermal DNA amplification (LAMP) technology to detect a 204 bp region of the tcdA gene within the PaLoc gene segment present in all known toxigenic C. difficile strains. The assay utilizes FDA cleared IVD reagents. Performance characteristics have be en verified by the [facility] within the [facility]. The [facility] is authorized [...] values reflect the clinical guidelines of the [place] [employer]. 8Interpretive Data: Adult reference range values reflect the clinical guidelines of the [place] [employer]. 9Interpretive Data: Elevated results are [...]
--- OUTSIDE RECORDS SUMMARY | 2018-12-19 01:23 | XMS REPORT | CCD ---
Author Author Auto Generated Organization [facility] Address Unknown Phone Unavailable Care Team Providers Care Obstetrical Tech Name Role Phone Jacob Murphy CP Allergies, Adverse Reactions, Alerts Substance Reaction Status NKDA Active Problem List Condition Effective Dates Status [D]Anterior chest wall pain 12/07/2011 Active BP+ - Hypertension Active CHF - Congestive heart failure Active CHF - Congestive heart failure Active Depression Active dm Active Down syndrome Active GERD - Gastro-esophageal reflux disease Active H/O: schizophrenia Active HTN Active 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 NIDDM Active Obese build Active Sleep apnea Active Medications Medication Instructions Start Date End Date Status aspirin 325 mg, 1 tab, Route: PO, Drug 01/14/2013 01/14/2013 Deleted form: TAB, ONCE, Dosing Weight 90.909, kg, Priority: STAT, Start date: 01/14/13 16:48:00, Stop date: 01/14/13 16:48:00Take with food. Dextrose 50% Syringe 12.5 gm, 25 mL, Route: IVP, Drug 01/14/2013 01/15/2013 Discontinued Form: INJ, Dosing Weight 90.909, kg, PRN, PRN Blood Glucose Results, Start date: 01/14/13 16:42:00, Duration: 30 day, Stop date: 02/13/13 15:41:00 glucagon 1 mg, Route: IM, Drug form: 01/14/2013 01/15/2013 Discontinued PDR/INJ, PRN, Dosing Weight 90.909, kg, PRN Blood Glucose Results, Start date: 01/14/13 16:42:00, Duration: 30 day, Stop date: 02/13/13 15:41:00 Dextrose 50% Syringe 25 gm, 50 mL, Route: IVP, Drug 01/14/2013 01/15/2013 Discontinued Form: INJ, Dosing Weight 90.909, kg, PRN, PRN Blood Glucose Results, Start date: 01/14/13 16:42:00, Duration: 30 day, Stop date: 02/13/13 15:41:00 insulin aspart 4 unit, 0.04 mL, Route: SUB-Q, Drug 01/14/2013 01/15/2013 Discontinued form: SOLN, TID-Before Meals, Dosing Weight 90.909, kg, PRN Blood Glucose Results, Start date: 01/14/13 16:42:00, Duration: 30 day, Stop date: 02/13/13 16:41:00Roll in palms of hands gently; Do not shake vigorously. (Same as: NovoLog)"single patient use only" Stable for 28 days at room temperature.Expires in days from Date insulin aspart 5 unit, 0.05 mL, Route: SUB-Q, Drug 01/14/2013 01/15/2013 Discontinued form: SOLN, TID-Before Meals, Dosing Weight 90.909, kg, PRN Blood Glucose Results, Start date: 01/14/13 16:42:00, Duration: 30 day, Stop date: 02/13/13 16:41:00Roll in palms of hands gently; Do not shake vigorously. (Same as: NovoLog)"single patient use only" Stable for 28 days at room temperature.Expires in days from Date insulin aspart 1 unit, 0.01 mL, Route: SUB-Q, Drug 01/14/2013 01/15/2013 Discontinued form: SOLN, TID-Before Meals, Dosing Weight 90.909, kg, PRN Blood Glucose Results, Start date: 01/14/13 16:42:00, Duration: 30 day, Stop date: 02/13/13 16:41:00Roll in palms of hands gently; Do not shake vigorously. (Same as: NovoLog)"single patient use only" Stable for 28 days at room temperature.Expires in days from Date insulin aspart 3 unit, 0.03 mL, Route: SUB-Q, Drug 01/14/2013 01/15/2013 Discontinued form: SOLN, TID-Before Meals, Dosing Weight 90.909, kg, PRN Blood Glucose Results, Start date: 01/14/13 16:42:00, Duration: 30 day, Stop date: 02/13/13 16:41:00Roll in palms of hands gently; Do not shake vigorously. (Same as: NovoLog)"single patient use only" Stable for 28 days at room temperature.Expires in days from Date insulin aspart 2 unit, 0.02 mL, Route: SUB-Q, Drug 01/14/2013 01/15/2013 Discontinued form: SOLN, TID-Before Meals, Dosing Weight 90.909, kg, PRN Blood Glucose Results, Start date: 01/14/13 16:42:00, Duration: 30 day, Stop date: 02/13/13 16:41:00Roll in palms of hands gently; Do not shake vigorously. (Same as: NovoLog)"single patient use only" Stable for 28 days at room temperature.Expires in days from Date Zocor 20 mg, 1 tab, Route: PO, Drug form: 01/14/2013 01/15/2013 Discontinued TAB, Bedtime, Start date: 01/14/13 21:00:00, Duration: 30 day, Stop date: 02/12/13 21:00:00(Same as: Zocor) Lasix 40 mg, 4 mL, Route: IVP, Drug form: 01/14/2013 01/14/2013 Completed INJ, ONCE, Dosing Weight 90.909, kg, Priority: STAT, Start date: 01/14/13 16:46:00, Stop date: 01/14/13 16:46:00(Same as: Lasix) aspirin 81 mg 81 mg, Route: PO, Drug form: 01/15/2013 01/14/2013 Deleted tablet, chewable CHEWTAB, Daily, Dosing Weight 90.909, kg, Start date: 01/15/13 9:00:00, Duration: 30 day, Stop date: 02/13/13 9:00:00 nitroglycerin SL Tab 0.4 mg, 1 tab, Route: SL, Drug 01/14/2013 01/15/2013 Discontinued form: TAB, Q5Min, Dosing Weight 90.909, kg, PRN Chest Pain, Start date: 01/14/13 18:25:00, Duration: 3 doses or times, Stop date: Limited # of times(Same as:Nitroquick, Nitrostat)"Do Not Crush" Sublingual tablet Saline Flush 0.9% 5 ml, Route: IVP, Drug Form: INJ, 01/14/2013 01/15/2013 Discontinued Dosing Weight 90.909, kg, PRN, PRN Line Flush, Start date: 01/14/13 18:25:00, Duration: 30 day, Stop date: 02/13/13 17:24:00(Same as: BD Posiflush) Saline Flush 0.9% 5 ml, Route: IVP, Drug Form: INJ, 01/14/2013 01/15/2013 Discontinued Dosing Weight 90.909, kg, Q12H, Start date: 01/14/13 21:00:00, Duration: 30 day, Stop date: 02/13/13 9:00:00(Same as: BD Posiflush) metFORmin 500 mg 500 mg, 1 tab, PO, BID-Meals, 30 01/14/2013 Ordered oral tablet tab, Substitution Allowed temazepam 30 mg oral 30 mg, 1 cap, PO, Bedtime, 01/14/2013 01/15/2013 Discontinued capsule Substitution Allowed, CAP Saline Flush 0.9% 5 mL, Route: IVP, Drug Form: INJ, 01/14/2013 01/15/2013 Discontinued Dosing Weight 90.909, kg, Q8H, PRN Line Flush, Start date: 01/14/13 14:13:00, Duration: 30 day, Stop date: 02/13/13 14:12:00, Administer at least once every 8 hours Administer at least once every 8 hours(Same as: BD Posiflush) nitroglycerin 2% 0.5 inch, Route: TOP, Drug Form: 01/14/2013 01/14/2013 Completed topical ointment OINT, Dosing Weight 90.909, kg, ONCE, STAT, Start date: 01/14/13 15:24:00, Stop date: 01/14/13 15:24:001 gram is approximately 1 inch of nitroglycerin ointment (20 mg NTG per gram) (Same as:Nitro-Bid) Protonix 40 mg, 1 tab, Route: PO, Drug form: 01/14/2013 01/15/2013 Discontinued ECTAB, Before Dinner, Dosing Weight 90.909, kg, Priority: STAT, Start date: 01/14/13 16:41:00, Duration: 30 day, Stop date: 02/13/13 16:30:00Tablet should not be chewed or crushed.(Same as: Protonix) aspirin 325 mg, 1 tab, Route: PO, Drug 01/14/2013 01/14/2013 Completed form: TAB, ONCE, Dosing Weight 90.909, kg, Priority: STAT, Start date: 01/14/13 15:24:00, Stop date: 01/14/13 15:24:00Take with food. Zofran 4 mg, 2 mL, Route: IVP, Drug form: 01/14/2013 01/15/2013 Discontinued INJ, Q8H, Dosing Weight 90.909, kg, PRN as needed for nausea/vomiting, Priority: STAT, Start date: 01/14/13 16:41:00, Duration: 30 day, Stop date: 02/13/13 16:40:00(Same as: Zofran) influenza virus 0.5 ml, Route: IM, Drug Form: SUSP, 12/25/2012 12/25/2012 Completed vaccine, inactivated Start date: 12/25/12 9:00:00, Stop date: 12/25/12 9:00:00 Geodon 20 mg, 1 cap, Route: PO, Drug form: 01/14/2013 01/15/2013 Discontinued CAP, Bedtime, Dosing Weight 90.909, kg, Start date: 01/14/13 21:00:00, Duration: 30 day, Stop date: 02/12/13 21:00:00(Same As: Geodon)Give with Food Sodium Chloride 0.9% 25 mL, Route: IV, Start date: 01/14/2013 01/15/2013 Discontinued IV 01/14/13 14:20:00, Duration: 30 day, Stop date: 02/13/13 13:19:00, PRN Line Flush Remeron 15 mg, 1 tab, Route: PO, Drug form: 01/14/2013 01/15/2013 Discontinued TAB, Bedtime, Dosing Weight 90.909, kg, Start date: 01/14/13 21:00:00, Duration: 30 day, Stop date: 02/12/13 21:00:00(Same as:Remeron) lisinopril 40 mg, 2 tab, Route: PO, Drug form: 01/15/2013 01/15/2013 Discontinued TAB, Daily, Dosing Weight 90.909, kg, Start date: 01/15/13 9:00:00, Duration: 30 day, Stop date: 02/13/13 9:00:00(Same as: Prinivil, Zestril) furosemide 40 mg 40 mg, 1 tab, Route: PO, Drug form: 01/15/2013 01/15/2013 Discontinued oral tablet TAB, Daily, Dosing Weight 90.909, kg, Start date: 01/15/13 9:00:00, Duration: 30 day, Stop date: 02/13/13 9:00:00(Same as: Lasix) May cause GI upset. Give with food or milk. clonazepam 2 mg, 4 tab, Route: PO, Drug form: 01/14/2013 01/15/2013 Discontinued TAB, Bedtime, Dosing Weight 90.909, kg, Start date: 01/14/13 21:00:00, Duration: 30 day, Stop date: 02/12/13 21:00:00(Same As: Klonopin) BD Normal Saline 10 mL, Route: IV, Drug Form: INJ, 01/14/2013 01/15/2013 Discontinued Flush PRN, PRN Line Flush, Start date: 01/14/13 14:20:00, Duration: 30 day, Stop date: 02/13/13 13:19:00(Same as: BD Posiflush) carvedilol 3.125 mg, 1 tab, Route: PO, Drug 01/14/2013 01/15/2013 Discontinued form: TAB, Q12H, Dosing Weight 90.909, kg, Start date: 01/14/13 21:00:00, Duration: 30 day, Stop date: 02/13/13 9:00:00Give with food. (Same As: Coreg) simvastatin 20 mg 20 mg, 1 tab, PO, Bedtime, 30 tab, 01/15/2013 Ordered oral tablet Substitution Allowed, TAB pantoprazole 40 mg 40 mg, 1 tab, PO, Before Dinner, 30 01/15/2013 Ordered oral enteric coated tab, Substitution Allowed, ECTAB tablet aspirin 81 mg, 1 tab, Route: PO, Drug form: 01/15/2013 01/15/2013 Discontinued CHEWTAB, Daily, Dosing Weight 90.909, kg, Start date: 01/15/13 9:00:00, Duration: 30 day, Stop date: 02/13/13 9:00:00Take with food. acetaminophen 325 mg 650 mg, 2 tab, Route: PO, Drug 01/14/2013 01/15/2013 Discontinued oral tablet form: TAB, Q4H, Dosing Weight 90.909, kg, PRN as needed for fever, Start date: 01/14/13 16:38:00, Duration: 30 day, Stop date: 02/13/13 16:37:00Do not exceed 4 gm/day. (Same as: Tylenol) Lipitor 10 mg, Route: PO, Bedtime, Dosing 01/14/2013 01/14/2013 Deleted Weight 90.909, kg, Start date: 01/14/13 21:00:00, Duration: 30 day, Stop date: 02/12/13 21:00:00 Immunizations Vaccine Date Status influenza virus vaccine, inactivated 12/25/2012 Auth (Verified) Vital Signs Most recent to oldest [Reference Range]: 1 2 3 Height 172.72 cm (01/14/2013 19:16:00) 172.72 cm (01/14/2013 13:59:00) Temperature Oral [96.4-99.1 DegF] 96.0 DegF *LOW* (01/15/2013 16:25:00) 96.0 DegF *LOW* (01/15/2013 12:41:00) 96.8 DegF (01/15/2013 07:48:00) Systolic Blood Pressure [90-140 mmHg] 117 mmHg (01/15/2013 16:25:00) 108 mmHg (01/15/2013 12:41:00) 107 mmHg (01/15/2013 07:48:00) Diastolic Blood Pressure [60-90 mmHg] 92 mmHg *HI* (01/15/2013 16:25:00) 82 mmHg (01/15/2013 12:41:00) 76 mmHg (01/15/2013 07:48:00) Respiratory Rate [14-20 BRMIN] 20 BRMIN (01/15/2013 16:25:00) 18 BRMIN (01/15/2013 12:41:00) 18 BRMIN (01/15/2013 07:48:00) Peripheral Pulse Rate [60-100 bpm] 64 bpm (01/15/2013 16:25:00) 55 bpm *LOW* (01/15/2013 12:41:00) 65 bpm (01/15/2013 07:48:00) Weight 105.085 kg (01/14/2013 19:16:00) 90.909 kg (01/14/2013 13:59:00) Results BEDSIDE GLUCOSE TESTING Most recent to [Reference Range]: 1 2 3 Glucose POC [70-99 mg/dL] 111 mg/dL 1 *HI* (01/15/2013 17:32:00) 202 mg/dL 2 *HI* (01/15/2013 11:47:00) 103 mg/dL 3 *HI* (01/15/2013 07:17:00) Gluc POC Comment 1 Notified RN/MD *NA* (01/14/2013 21:17:00) 1Interpretive Data: Upper Reportable Limit: 200 mg/dL. 2Interpretive Data: Upper Reportable Limit: 200 mg/dL. 3Interpretive Data: Upper Reportable Limit: 200 mg/dL. VIRAL - SEROLOGY Most recent to oldest [Reference Range]: 1 2 3 Influ A [Negative] Negative (01/14/2013 15:55:00) Influ B [Negative] Negative 4 (01/14/2013 15:55:00) 4Interpretive Data: Influenza A&B Antigen: Due to the low sensitivity of this test a negative result does not exclude influ heather virus infection. A diagnosis of influenza should be considered based on a p atient's clinical presentation and empiric antiviral treatment should be conside red, if indicated. If more conclusive testing is desired, follow-up confirmatory testing with either viral culture or PCR is warranted. CHEMISTRY Most recent to oldest [Reference Range]: 1 2 3 Sodium Lvl [135-145 mEq/L] 139 mEq/L (01/15/2013 05:25:00) 139 mEq/L (01/14/2013 14:36:00) Potassium Lvl [3.5-5.1 mEq/L] 3.9 mEq/L (01/15/2013 05:25:00) 3.9 mEq/L (01/14/2013 14:36:00) Chloride Lvl [95-109 mEq/L] 105 mEq/L (01/15/2013 05:25:00) 106 mEq/L (01/14/2013 14:36:00) CO2 [24-32 mEq/L] 24 mEq/L (01/15/2013 05:25:00) 26 mEq/L (01/14/2013 14:36:00) AGAP [10.0-20.0 mEq/L] 13.9 mEq/L (01/15/2013 05:25:00) 10.9 mEq/L (01/14/2013 14:36:00) Creatinine Lvl [0.5-1.4 mg/dL] 1.1 mg/dL (01/15/2013 05:25:00) 1.2 mg/dL (01/14/2013 14:36:00) eGFR 79 mL/min/1.73m2 5 *NA* (01/15/2013 05:25:00) 71 mL/min/1.73m2 6 *NA* (01/14/2013 14:36:00) BUN [7-22 mg/dL] 25 mg/dL *HI* (01/15/2013 05:25:00) 20 mg/dL (01/14/2013 14:36:00) B/C Ratio [6-25] 17 (01/14/2013 14:36:00) Glucose Lvl [70-99 mg/dL] 124 mg/dL 7 *HI* (01/15/2013 05:25:00) 122 mg/dL 8 *HI* (01/14/2013 14:36:00) Total Protein [6.4-8.4 g/dL] 6.5 g/dL (01/14/2013 14:36:00) Albumin Lvl [3.5-5.0 g/dL] 3.5 g/dL (01/14/2013:36:00) Globulin [2.0-4.0 g/dL] 3.0 g/dL (01/14/2013:36:00) A/G Ratio [0.7-1.6] 1.2 (01/14/2013:36:00) Calcium Lvl [8.5-10.5 mg/dL] 8.0 mg/dL *LOW* (01/15/2013 05:25:00) 8.6 mg/dL (01/14/2013 14:36:00) ALT [0-65 unit/L] 45 unit/L (01/14/2013:36:00) AST [0-37 unit/L] 26 unit/L (01/14/2013:36:00) Alk Phos [39-136 unit/L] 131 unit/L (01/14/2013:36:00) Bili Total [0.2-1.3 mg/dL] 1.1 mg/dL (01/14/2013 14:36:00) Total CK [12-191 unit/L] 118 unit/L (01/14/2013 23:10:00) 110 unit/L (01/14/2013 19:00:00) 101 unit/L (01/14/2013:36:00) CK MB [0.5-3.6 ng/mL] 1.5 ng/mL (01/14/2013 23:10:00) 1.2 ng/mL (01/14/2013 19:00:00) 1.1 ng/mL (01/14/2013:36:00) CK MB Index [0.0-2.5] 1.3 (01/14/2013 23:10:00) 1.1 (01/14/2013 19:00:00) 1.1 (01/14/2013:36:00) Troponin-I [0.00-0.40 ng/mL] 0.03 ng/mL (01/14/2013 23:10:00) 0.03 ng/mL (01/14/2013 19:00:00) 0.04 ng/mL (01/14/2013 14:36:00) BNP [<=100 pg/mL] 1962 pg/mL 9 *HI* (01/14/2013 14:36:00) 5Result Comment: The eGFR is calculated using [...] values reflect the clinical guidelines of the [place] [employer]. 8Interpretive Data: Adult reference range values reflect the clinical guidelines of the [place] [employer]. 9Interpretive Data: Elevated results are in line with increasing severity of congestive heart failure. Minor elevations between 100 and 300 may be seen with Myocardial Ischemia, Sodium retaining drugs, and compensated/treated heart failure. HEMATOLOGY Most recent to oldest [Reference Range]: 1 2 3 WBC [3.7-10.4 K/CMM] 6.0 K/CMM (01/15/2013 05:25:00) 6.6 K/CMM (01/14/2013 14:36:00) RBC [4.70-6.10 M/CMM] 4.90 M/CMM (01/15/2013 05:25:00) 5.22 M/CMM (01/14/2013 14:36:00) Hgb [14.0-18.0 g/dL] 14.3 g/dL (01/15/2013 05:25:00) 15.2 g/dL (01/14/2013 14:36:00) Hct [42.0-54.0 %] 44.1 % (01/15/2013 05:25:00) 47.2 % (01/14/2013 14:36:00) MCV [80.0-94.0 fL] 89.9 fL (01/15/2013 05:25:00) 90.5 fL (01/14/2013 14:36:00) MCH [27.0-31.0 pg] 29.1 pg (01/15/2013 05:25:00) 29.2 pg (01/14/2013 14:36:00) MCHC [32.0-36.0 g/dL] 32.4 g/dL (01/15/2013 05:25:00) 32.3 g/dL (01/14/2013 14:36:00) RDW [11.5-14.5 %] 15.6 % *HI* (01/15/2013 05:25:00) 15.4 % *HI* (01/14/2013 14:36:00) Platelet [133-450 K/CMM] 198 K/CMM (01/15/2013 05:25:00) 227 K/CMM (01/14/2013 14:36:00) MPV [7.4-10.4 fL] 9.2 fL (01/15/2013 05:25:00) 8.9 fL (01/14/2013 14:36:00) Segs [45.0-75.0 %] 70.6 % (01/15/2013 05:25:00) 73.0 % (01/14/2013 14:36:00) Lymphocytes [20.0-40.0 %] 17.7 % *LOW* (01/15/2013 05:25:00) 16.7 % *LOW* (01/14/2013 14:36:00) Monocytes [2.0-12.0 %] 9.5 % (01/15/2013 05:25:00) 9.4 % (01/14/2013 14:36:00) Eosinophils [0.0-4.0 %] 1.6 % (01/15/2013 05:25:00) 0.7 % (01/14/2013 14:36:00) Basophils [0.0-1.0 %] 0.6 % (01/15/2013 05:25:00) 0.2 % (01/14/2013 14:36:00) Segs-Bands # [1.5-8.1 K/CMM] 4.3 K/CMM (01/15/2013 05:25:00) 4.8 K/CMM (01/14/2013 14:36:00) Lymphocytes # [1.0-5.5 K/CMM] 1.1 K/CMM (01/15/2013 05:25:00) 1.1 K/CMM (01/14/2013 14:36:00) Monocytes # [0.0-0.8 K/CMM] 0.6 K/CMM (01/15/2013 05:25:00) 0.6 K/CMM (01/14/2013 14:36:00) Eosinophils # [0.0-0.5 K/CMM] 0.1 K/CMM (01/15/2013 05:25:00) 0.0 K/CMM (01/14/2013 14:36:00) Basophils # [0.0-0.2 K/CMM] 0.0 K/CMM (01/15/2013 05:25:00) 0.0 K/CMM (01/14/2013 14:36:00) PT [12.0-14.7 seconds] 18.5 seconds *HI* (01/14/2013 14:36:00) INR [0.85-1.17] 1.57 10 *HI* (01/14/2013 14:36:00) PTT [22.9-35.8 seconds] 30.2 seconds 11 (01/14/2013 14:36:00) 10Interpretive Data: RECOMMENDED RANGES FOR PROTIME INR: 2.0-3.0 for most medical and surgical thromboembolic states. 2.5-3.5 for artificial heart valves and recurrent embolism. INR SHOULD BE USED ONLY FOR PATIENTS ON STABLE ANTICOAGULANT THERAPY. 11Interpretive Data: Heparin Therapeutic Range: 57 - 92 Seconds
--- OUTSIDE RECORDS SUMMARY | 2018-12-19 01:23 | XMS REPORT | CCD ---
Author Author Auto Generated Organization [facility] Address Unknown Phone Unavailable Care Team Providers Care Head Of Research & Insights Name Role Phone Jacob Murphy CP Allergies, [...] values reflect the clinical guidelines of the [place] [employer]. 8Interpretive Data: Adult reference range values reflect the clinical guidelines of the [place] [employer]. 9Interpretive Data: Elevated results are [...]
--- OUTSIDE RECORDS SUMMARY | 2018-12-19 01:24 | XMS REPORT | CCD ---
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 Role Phone Harriet Swan CP Allergies, Adverse Reactions, Alerts Substance Reaction Status NKDA Active Problem List Condition Effective Dates Status [D]Anterior chest wall pain 12/07/2011 Active BP+ - Hypertension Active Cardiomyopathy Resolved CHF - Congestive heart failure Active CHF - Congestive heart failure Active Depression Active dm Active Down syndrome Active GERD - Gastro-esophageal reflux disease Active H/O: schizophrenia Active HTN Active 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 NIDDM Active Obese build Active Sleep apnea Active Medications Medication Instructions Start Date End Date Status Geodon 20 mg, 1 cap, Route: PO, Drug form: 01/23/2013 01/24/2013 Discontinued CAP, Bedtime, Dosing Weight 127.273, kg, Start date: 01/23/13 21:00:00, Duration: 30 day, Stop date: 02/21/13 21:00:00(Same As: Geodon)Give with Food simvastatin 20 mg, 1 tab, Route: PO, Drug form: 01/23/2013 01/24/2013 Discontinued TAB, Bedtime, Dosing Weight 127.273, kg, Start date: 01/23/13 21:00:00, Duration: 30 day, Stop date: 02/21/13 21:00:00(Same as: Zocor) pantoprazole 40 mg, 1 tab, Route: PO, Drug form: 01/23/2013 01/24/2013 Discontinued ECTAB, Before Dinner, Dosing Weight 127.273, kg, Start date: 01/23/13 16:30:00, Duration: 30 day, Stop date: 02/21/13 16:30:00Tablet should not be chewed or crushed.(Same as: Protonix) Remeron 15 mg, 1 tab, Route: PO, Drug form: 01/23/2013 01/24/2013 Discontinued TAB, Bedtime, Dosing Weight 127.273, kg, Start date: 01/23/13 21:00:00, Duration: 30 day, Stop date: 02/21/13 21:00:00(Same as:Remeron) metFORmin 500 mg 500 mg, 1 tab, Route: PO, Drug 01/23/2013 01/24/2013 Discontinued oral tablet form: TAB, BID-Meals, Dosing Weight 127.273, kg, Start date: 01/23/13 17:00:00, Duration: 30 day, Stop date: 02/22/13 8:00:00(Same as: Glucophage) Take with meal clonazepam 2 mg, 2 tab, Route: PO, Drug form: 01/23/2013 01/24/2013 Discontinued TAB, Bedtime, Dosing Weight 127.273, kg, Start date: 01/23/13 21:00:00, Duration: 30 day, Stop date: 02/21/13 21:00:00(Same As: Klonopin) aspirin 81 mg, 1 tab, Route: PO, Drug form: 01/23/2013 01/24/2013 Discontinued CHEWTAB, Daily, Dosing Weight 127.273, kg, Start date: 01/23/13 12:57:00, Duration: 30 day, Stop date: 02/22/13 9:00:00Take with food. Saline Flush 0.9% 5 mL, Route: IVP, Drug Form: INJ, 01/22/2013 01/23/2013 Discontinued Dosing Weight 127.273, kg, Q8H, PRN Line Flush, Start date: 01/22/13 10:02:00, Duration: 30 day, Stop date: 02/21/13 10:01:00, Administer at least once every 8 hours Administer at least once every 8 hours(Same as: BD Posiflush) aspirin 324 mg, 4 tab, Route: PO, Drug 01/22/2013 01/22/2013 Completed form: CHEWTAB, ONCE, Dosing Weight 127.273, kg, Priority: STAT, Start date: 01/22/13 10:02:00, Stop date: 01/22/13 10:02:00Take with food. potassium chloride 40 mEq, 2 tab, Route: PO, Drug 01/22/2013 01/22/2013 Completed form: ERTAB, ONCE, Dosing Weight 127.273, kg, Start date: 01/22/13 15:28:00, Stop date: 01/22/13 15:28:00(Same as: K-Dur 20)"Do Not Crush" With food and full glass of water pantoprazole 40 mg 40 mg, 1 tab, PO, Before Dinner, 30 01/24/2013 Ordered oral enteric coated tab, Substitution Allowed, ECTAB tablet simvastatin 20 mg 20 mg, 1 tab, PO, Bedtime, 30 tab, 01/24/2013 Ordered oral tablet Substitution Allowed, TAB furosemide 40 mg 40 mg, 1 tab, PO, Daily, 30 tab, 01/24/2013 Ordered oral tablet Substitution Allowed, TAB metFORmin 500 mg 500 mg, 1 tab, PO, BID-Meals, 60 01/24/2013 02/23/2013 Ordered oral tablet tab, Substitution Allowed, TAB lisinopril 40 mg 40 mg, 1 tab, PO, Daily, 14 tab, 01/24/2013 Ordered oral tablet Substitution Allowed, TAB carvedilol 6.25 mg 6.25 mg, 1 tab, PO, Q12H, 60 tab, 01/24/2013 02/23/2013 Ordered oral tablet Substitution Allowed, TAB Aspirin Low Dose 81 81 mg, 1 tab, PO, Daily, 30 tab, 01/24/2013 Ordered mg oral tablet Substitution Allowed, TAB enoxaparin 40 mg, 0.4 mL, Route: SUB-Q, Drug 01/22/2013 01/24/2013 Discontinued form: INJ, [id number], Dosing Weight 127.273, kg, Start date: 01/22/13 15:00:00, Duration: 30 day, Stop date: 02/20/13 15:00:00(Same as: Lovenox) temazepam 15 mg, 1 cap, Route: PO, Drug form: 01/22/2013 01/24/2013 Discontinued CAP, Bedtime, Dosing Weight 127.273, kg, PRN Sleep, Start date: 01/22/13 15:31:00, Duration: 30 day, Stop date: 02/21/13 15:30:00(Same As: Restoril) North 5/325 oral 1 tab, Route: PO, Drug Form: TAB, 01/22/2013 01/24/2013 Discontinued tablet Dosing Weight 127.273, kg, Q6H, PRN Pain, Start date: 01/22/13 15:31:00, Duration: 30 day, Stop date: 02/21/13 15:30:00(Same as: North 325/5) Do not exceed 4gm/day of acetaminophen. Saline Flush 0.9% 3 ml, Route: IVP, Drug Form: INJ, 01/23/2013 01/24/2013 Discontinued Dosing Weight 127.273, kg, Q8H, Start date: 01/23/13 0:00:00, Duration: 30 day, Stop date: 02/21/13 16:00:00(Same as: BD Posiflush) Saline Flush 0.9% 5 ml, Route: IVP, Drug Form: INJ, 01/22/2013 01/24/2013 Discontinued Dosing Weight 127.273, kg, PRN, PRN Line Flush, Start date: 01/22/13 15:16:00, Duration: 30 day, Stop date: 02/21/13 14:15:00(Same as: BD Posiflush) Tylenol 650 mg, 2 tab, Route: PO, Drug 01/22/2013 01/24/2013 Discontinued form: TAB, Q6H, Dosing Weight 127.273, kg, PRN Fever, Start date: 01/22/13 15:30:00, Duration: 30 day, Stop date: 02/21/13 15:29:00Do not exceed 4 gm/day. (Same as: Tylenol) Zofran 4 mg, 2 mL, Route: IV, Drug form: 01/22/2013 01/24/2013 Discontinued INJ, Q8H, Dosing Weight 127.273, kg, PRN Nausea, Start date: 01/22/13 15:30:00, Duration: 30 day, Stop date: 02/21/13 14:29:00(Same as: Zofran) spironolactone 25 mg, 1 tab, Route: PO, Drug form: 01/23/2013 01/24/2013 Discontinued TAB, Daily, Dosing Weight 127.273, kg, Start date: 01/23/13 9:00:00, Duration: 30 day, Stop date: 02/21/13 9:00:00(Same As: Aldactone) influenza virus 0.5 ml, Route: IM, Drug Form: SUSP, 12/25/2012 12/25/2012 Completed vaccine, inactivated Start date: 12/25/12 9:00:00, Stop date: 12/25/12 9:00:00 Lasix 20 mg, 2 mL, Route: IV, Drug form: 01/22/2013 01/24/2013 Discontinued INJ, BID, Dosing Weight 127.273, kg, Start date: 01/22/13 17:00:00, Duration: 30 day, Stop date: 02/21/13 9:00:00(Same as: Lasix) Lasix 40 mg, Route: IVP, Drug form: INJ, 01/23/2013 01/22/2013 Canceled Daily, Dosing Weight 127.273, kg, Start date: 01/23/13 9:00:00, Duration: 30 day, Stop date: 02/21/13 9:00:00 lisinopril 40 mg, 2 tab, Route: PO, Drug form: 01/23/2013 01/24/2013 Discontinued TAB, Daily, Dosing Weight 127.273, kg, Start date: 01/23/13 9:00:00, Duration: 30 day, Stop date: 02/21/13 9:00:00(Same as: Prinivil, Zestril) Lasix 40 mg oral 40 mg, 1 tab, Route: PO, Drug form: 01/24/2013 01/24/2013 Canceled tablet TAB, BID, Dosing Weight 127.273, kg, Start date: 01/24/13 17:00:00, Duration: 30 day, Stop date: 02/23/13 9:00:00(Same as: Lasix) May cause GI upset. Give with food or milk. Coreg 6.25 mg, 1 tab, Route: PO, Drug 01/22/2013 01/24/2013 Discontinued form: TAB, Q12H, Dosing Weight 127.273, kg, Start date: 01/22/13 21:00:00, Duration: 30 day, Stop date: 02/21/13 9:00:00Give with food. (Same As: Coreg) spironolactone 25 mg 25 mg, 1 tab, PO, Daily, 30 tab, 01/24/2013 02/23/2013 Ordered oral tablet Substitution Allowed, TAB Lasix 40 mg, 4 mL, Route: IVP, Drug form: 01/22/2013 01/22/2013 Completed INJ, ONCE, Dosing Weight 127.273, kg, Priority: STAT, Start date: 01/22/13 13:02:00, Stop date: 01/22/13 13:02:00(Same as: Lasix) Immunizations Vaccine Date Status influenza virus vaccine, inactivated 12/25/2012 Auth (Verified) Vital Signs Most recent to oldest [Reference Range]: 1 2 3 Height 172.72 cm (01/22/2013 09:50:00) Current Weight 105 kg (01/24/2013 00:00:00) 107.007 kg (01/23/2013 01:21:00) Temperature Oral [96.4-99.1 DegF] 97.7 DegF (01/24/2013 12:00:00) 97.8 DegF (01/24/2013 08:18:00) 97.5 DegF (01/24/2013 04:00:00) Systolic Blood Pressure [90-140 mmHg] 127 mmHg (01/24/2013 12:00:00) 156 mmHg *HI* (01/24/2013 08:18:00) 117 mmHg (01/24/2013 04:00:00) Diastolic Blood Pressure [60-90 mmHg] 61 mmHg (01/24/2013 12:00:00) 86 mmHg (01/24/2013 08:18:00) 86 mmHg (01/24/2013 04:00:00) Respiratory Rate [14-20 BRMIN] 18 BRMIN (01/24/2013 12:00:00) 18 BRMIN (01/24/2013 08:18:00) 16 BRMIN (01/24/2013 04:00:00) Peripheral Pulse Rate [60-100 bpm] 50 bpm *LOW* (01/24/2013 12:00:00) 88 bpm (01/24/2013 08:18:00) 79 bpm (01/24/2013 04:00:00) Weight 127.273 kg (01/22/2013 09:50:00) Results INFECTIOUS DISEASES Most recent to oldest [Reference Range]: 1 2 3 C difficile DNA [Negative] Negative 1 (01/22/2013 21:30:00) 1Interpretive Data: [place] [employer] Clostridium difficile assay utilizes loop-mediated isothermal DNA amplification (LAMP) technology to detect a 204 bp region of the tcdA gene within the PaLoc gene segment present in all known toxigenic C. difficile strains. The assay utilizes FDA cleared IVD reagents. Performance characteristics have be en verified by the [facility] within the [facility]. The [facility] is authorized under the Clinical Labo ratory Improvement Amendment of 1988 (CLIA-88) to perform high complexity testin g. BEDSIDE GLUCOSE TESTING Most recent to oldest [Reference Range]: 1 2 3 Glucose POC [70-99 mg/dL] 194 mg/dL 2 *HI* (01/24/2013 11:32:00) Gluc POC Comment 1 Notified RN/MD *NA* (01/24/2013 11:32:00) 2Interpretive Data: Upper Reportable Limit: 200 mg/dL. STOOL TESTS Most recent to oldest [Reference Range]: 1 2 3 Fecal Leukocyte None Seen 3 (01/22/2013 21:30:00) 3Interpretive Data: A Value of None Seen, Rare, or Few is Normal. CHEMISTRY Most recent to oldest [Reference Range]: 1 2 3 Sodium Lvl [135-145 mEq/L] 144 mEq/L (01/24/2013 05:34:00) 143 mEq/L (01/23/2013 04:07:00) 141 mEq/L (01/22/2013 09:55:00) Potassium Lvl [3.5-5.1 mEq/L] 3.7 mEq/L (01/24/2013 05:34:00) 3.6 mEq/L (01/23/2013 04:07:00) 3.4 mEq/L *LOW* (01/22/2013 09:55:00) Chloride Lvl [95-109 mEq/L] 103 mEq/L (01/24/2013 05:34:00) 104 mEq/L (01/23/2013 04:07:00) 101 mEq/L (01/22/2013 09:55:00) CO2 [24-32 mEq/L] 27 mEq/L (01/24/2013 05:34:00) 26 mEq/L (01/23/2013 04:07:00) 28 mEq/L (01/22/2013 09:55:00) AGAP [10.0-20.0 mEq/L] 17.7 mEq/L (01/24/2013 05:34:00) 16.6 mEq/L (01/23/2013 04:07:00) 15.4 mEq/L (01/22/2013 09:55:00) Creatinine Lvl [0.5-1.4 mg/dL] 1.3 mg/dL (01/24/2013 05:34:00) 1.3 mg/dL 4 (01/23/2013 04:07:00) 1.0 mg/dL (01/22/2013 15:44:00) eGFR 65 mL/min/1.73m2 5 *NA* (01/24/2013 05:34:00) 65 mL/min/1.73m2 6 *NA* (01/23/2013 04:07:00) 89 mL/min/1.73m2 7 *NA* (01/22/2013 15:44:00) BUN [7-22 mg/dL] 18 mg/dL (01/24/2013 05:34:00) 15 mg/dL (01/23/2013 04:07:00) 10 mg/dL (01/22/2013 09:55:00) B/C Ratio [6-25] 8 (01/22/2013 09:55:00) Glucose Lvl [70-99 mg/dL] 94 mg/dL 8 (01/24/2013 05:34:00) 131 mg/dL 9 *HI* (01/23/2013 04:07:00) 114 mg/dL 10 *HI* (01/22/2013 09:55:00) Total Protein [6.4-8.4 g/dL] 6.9 g/dL (01/22/2013 09:55:00) Albumin Lvl [3.5-5.0 g/dL] 3.7 g/dL (01/22/2013 09:55:00) Globulin [2.0-4.0 g/dL] 3.2 g/dL (01/22/2013 09:55:00) A/G Ratio [0.7-1.6] 1.2 (01/22/2013 09:55:00) Calcium Lvl [8.5-10.5 mg/dL] 8.3 mg/dL *LOW* (01/24/2013 05:34:00) 8.8 mg/dL (01/23/2013 04:07:00) 8.6 mg/dL (01/22/2013 09:55:00) Phosphorus [2.5-4.5 mg/dL] 4.7 mg/dL *HI* (01/23/2013 04:07:00) Magnesium Lvl [1.8-2.4 mg/dL] 1.7 mg/dL *LOW* (01/23/2013 04:07:00) ALT [0-65 unit/L] 31 unit/L (01/22/2013 09:55:00) AST [0-37 unit/L] 24 unit/L (01/22/2013 09:55:00) Alk Phos [39-136 unit/L] 178 unit/L *HI* (01/22/2013 09:55:00) Bili Total [0.2-1.3 mg/dL] 1.2 mg/dL (01/22/2013 09:55:00) Lipase Lvl [73-393 unit/L] 89 unit/L (01/22/2013 09:55:00) Total CK [12-191 unit/L] 144 unit/L (01/23/2013 04:07:00) 171 unit/L (01/22/2013 21:22:00) 168 unit/L (01/22/2013 15:44:00) CK MB [0.5-3.6 ng/mL] 1.6 ng/mL (01/23/2013 04:07:00) 1.7 ng/mL (01/22/2013 21:22:00) 1.6 ng/mL (01/22/2013 15:44:00) CK MB Index [0.0-2.5] 1.1 (01/23/2013 04:07:00) 1.0 (01/22/2013 21:22:00) 1.0 (01/22/2013 15:44:00) Troponin-I [0.00-0.40 ng/mL] 0.04 ng/mL (01/23/2013 04:07:00) 0.02 ng/mL (01/22/2013 21:22:00) 0.03 ng/mL (01/22/2013 15:44:00) BNP [<=100 pg/mL] 1829 pg/mL 11 *HI* (01/22/2013 09:55:00) 4Result Comment: reviewed 01/23/2013 06:40 gr 5Result Comment: The eGFR is calculated using [...] values reflect the clinical guidelines of the [place] [employer]. 9Interpretive Data: Adult reference range values reflect the clinical guidelines of the [place] [employer]. 10Interpretive Data: Adult reference range values reflect the clinical guidelines of the [place] [employer]. 11Interpretive Data: Elevated results are in line with increasing severity of congestive heart failure. Minor elevations between 100 and 300 may be seen with Myocardial Ischemia, Sodium retaining drugs, and compensated/treated heart failure. HEMATOLOGY Most recent to oldest [Reference Range]: 1 2 3 WBC [3.7-10.4 K/CMM] 6.8 K/CMM (01/23/2013 04:07:00) 7.1 K/CMM (01/22/2013 09:55:00) RBC [4.70-6.10 M/CMM] 5.05 M/CMM (01/23/2013 04:07:00) 5.17 M/CMM (01/22/2013 09:55:00) Hgb [14.0-18.0 g/dL] 14.5 g/dL (01/23/2013 04:07:00) 15.1 g/dL (01/22/2013 09:55:00) Hct [42.0-54.0 %] 44.5 % (01/23/2013 04:07:00) 46.2 % (01/22/2013 09:55:00) MCV [80.0-94.0 fL] 88.3 fL (01/23/2013 04:07:00) 89.4 fL (01/22/2013 09:55:00) MCH [27.0-31.0 pg] 28.8 pg (01/23/2013 04:07:00) 29.1 pg (01/22/2013 09:55:00) MCHC [32.0-36.0 g/dL] 32.6 g/dL (01/23/2013 04:07:00) 32.6 g/dL (01/22/2013 09:55:00) RDW [11.5-14.5 %] 15.3 % *HI* (01/23/2013 04:07:00) 15.7 % *HI* (01/22/2013 09:55:00) Platelet [133-450 K/CMM] 205 K/CMM (01/23/2013 04:07:00) 189 K/CMM (01/22/2013 15:44:00) 190 K/CMM (01/22/2013 09:55:00) MPV [7.4-10.4 fL] 9.4 fL (01/23/2013 04:07:00) 9.5 fL (01/22/2013 09:55:00) Segs [45.0-75.0 %] 78.0 % *HI* (01/22/2013 09:55:00) Lymphocytes [20.0-40.0 %] 13.2 % *LOW* (01/22/2013 09:55:00) Monocytes [2.0-12.0 %] 7.9 % (01/22/2013 09:55:00) Eosinophils [0.0-4.0 %] 0.5 % (01/22/2013 09:55:00) Basophils [0.0-1.0 %] 0.4 % (01/22/2013 09:55:00) Segs-Bands # [1.5-8.1 K/CMM] 5.6 K/CMM (01/22/2013 09:55:00) Lymphocytes # [1.0-5.5 K/CMM] 0.9 K/CMM *LOW* (01/22/2013 09:55:00) Monocytes # [0.0-0.8 K/CMM] 0.6 K/CMM (01/22/2013 09:55:00) Eosinophils # [0.0-0.5 K/CMM] 0.0 K/CMM (01/22/2013 09:55:00) Basophils # [0.0-0.2 K/CMM] 0.0 K/CMM (01/22/2013 09:55:00) PT [12.0-14.7 seconds] 17.5 seconds *HI* (01/22/2013 09:55:00) INR [0.85-1.17] 1.46 12 *HI* (01/22/2013 09:55:00) PTT [22.9-35.8 seconds] 29.5 seconds 13 (01/22/2013 15:44:00) 29.5 seconds 14 (01/22/2013 09:55:00) 12Interpretive Data: RECOMMENDED RANGES FOR PROTIME INR: 2.0-3.0 for most medical and surgical thromboembolic states. 2.5-3.5 for artificial heart valves and recurrent embolism. INR SHOULD BE USED ONLY FOR PATIENTS ON STABLE ANTICOAGULANT THERAPY. 13Interpretive Data: Heparin Therapeutic Range: 57 - 92 Seconds 14Interpretive Data: Heparin Therapeutic Range: 57 - 92 Seconds Microbiology Reports PROCEDURE:Culture: Stool STATUS: Auth (Verified) BODY SITE: COLLECTED DATE/TIME: 01/22/2013 21:30:00 SOURCE: Stool FREE TEXT SOURCE: FINAL REPORTS Final Report Normal Enteric Elayne Isolated No Salmonella, Shigella, Or Campylobacter Isolated PRELIMINARY REPORTS Preliminary Report Normal Enteric Elayne Isolated Preliminary Report Normal Enteric Elayne Isolated No Salmonella Or Shigella Isolated
--- OUTSIDE RECORDS SUMMARY | 2018-12-19 01:24 | XMS REPORT | CCD ---
Author Author Auto Generated Organization 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 8Interpretive Data: Adult reference range values reflect the clinical guidelines of the [place] [employer]. 9Interpretive Data: Elevated results are [...]
--- OUTSIDE RECORDS SUMMARY | 2018-12-19 01:24 | XMS REPORT | CCD ---
Author Author Auto Generated Organization [facility] Address Unknown Phone Unavailable Care Team Providers Care Spreader Name Role Phone Dea Dupont CP Allergies, Adverse Reactions, Alerts Substance Reaction [...] 325 mg, 1 tab, Route: PO, Drug 01/31/2013 01/31/2013 Completed form: TAB, ONCE, Dosing Weight 129.545, kg, Priority: STAT, Start date: 01/31/13 20:44:00, Stop date: 01/31/13 20:44:00Take with food. insulin aspart 2 unit, 0.02 mL, Route: SUB-Q, Drug 02/01/2013 02/01/2013 Discontinued form: SOLN, TID-Before Meals, Dosing Weight 129.545, kg, PRN Blood Glucose Results, Start date: 02/01/13 0:24:00, Duration: 30 day, Stop date: 03/03/13 0:23:00Roll in palms of hands gently; Do not shake vigorously. (Same as: NovoLog)"single patient use only" Stable for 28 days at room temperature.Expires in days from Date insulin aspart 4 unit, 0.04 mL, Route: SUB-Q, Drug 02/01/2013 02/01/2013 Discontinued form: SOLN, TID-Before Meals, Dosing Weight 129.545, kg, PRN Blood Glucose Results, Start date: 02/01/13 0:24:00, Duration: 30 day, Stop date: 03/03/13 0:23:00Roll in palms of hands gently; Do not shake vigorously. (Same as: NovoLog)"single patient use only" Stable for 28 days at room temperature.Expires in days from Date insulin aspart 10 unit, 0.1 mL, Route: SUB-Q, Drug 02/01/2013 02/01/2013 Discontinued form: SOLN, TID-Before Meals, Dosing Weight 129.545, kg, PRN Blood Glucose Results, Start date: 02/01/13 0:24:00, Duration: 30 day, Stop date: 03/03/13 0:23:00Roll in palms of hands gently; Do not shake vigorously. (Same as: NovoLog)"single patient use only" Stable for 28 days at room temperature.Expires in days from Date insulin aspart 6 unit, 0.06 mL, Route: SUB-Q, Drug 02/01/2013 02/01/2013 Discontinued form: SOLN, TID-Before Meals, Dosing Weight 129.545, kg, PRN Blood Glucose Results, Start date: 02/01/13 0:24:00, Duration: 30 day, Stop date: 03/03/13 0:23:00Roll in palms of hands gently; Do not shake vigorously. (Same as: NovoLog)"single patient use only" Stable for 28 days at room temperature.Expires in days from Date insulin aspart 8 unit, 0.08 mL, Route: SUB-Q, Drug 02/01/2013 02/01/2013 Discontinued form: SOLN, TID-Before Meals, Dosing Weight 129.545, kg, PRN Blood Glucose Results, Start date: 02/01/13 0:24:00, Duration: 30 day, Stop date: 03/03/13 0:23:00Roll in palms of hands gently; Do not shake vigorously. (Same as: NovoLog)"single patient use only" Stable for 28 days at room temperature.Expires in days from Date Saline Flush 0.9% 5 mL, Route: IVP, Drug Form: INJ, 01/31/2013 01/31/2013 Deleted Dosing Weight 129.545, kg, Q8H, PRN Line Flush, Start date: 01/31/13 20:44:00, Duration: 30 day, Stop date: 03/02/13 20:43:00, Administer at least once every 8 hours Administer at least once every 8 hours glucagon 1 mg, Route: IM, Drug form: 02/01/2013 02/01/2013 Discontinued PDR/INJ, PRN, Dosing Weight 129.545, kg, PRN Blood Glucose Results, Start date: 02/01/13 0:24:00, Duration: 30 day, Stop date: 03/03/13 0:23:00 Dextrose 50% Syringe 25 gm, 50 mL, Route: IVP, Drug 02/01/2013 02/01/2013 Discontinued Form: INJ, Dosing Weight 129.545, kg, PRN, PRN Blood Glucose Results, Start date: 02/01/13 0:24:00, Duration: 30 day, Stop date: 03/03/13 0:23:00 Dextrose 50% Syringe 12.5 gm, 25 mL, Route: IVP, Drug 02/01/2013 02/01/2013 Discontinued Form: INJ, Dosing Weight 129.545, kg, PRN, PRN Blood Glucose Results, Start date: 02/01/13 0:24:00, Duration: 30 day, Stop date: 03/03/13 0:23:00 furosemide 60 mg, Route: IV, ONCE, Dosing 01/31/2013 02/01/2013 Completed Weight 129.545, kg, Priority: STAT, Start date: 01/31/13 22:46:00, Stop date: 01/31/13 22:46:00 Geodon 20 mg, 1 cap, Route: PO, Drug form: 02/01/2013 02/01/2013 Discontinued CAP, Bedtime, Dosing Weight 91.5, kg, Start date: 02/01/13 21:00:00, Duration: 30 day, Stop date: 03/02/13 21:00:00(Same As: Geodon)Give with Food spironolactone 25 mg, 1 tab, Route: PO, Drug form: 02/02/2013 02/01/2013 Canceled TAB, Daily, Dosing Weight 91.5, kg, Start date: 02/02/13 9:00:00, Duration: 30 day, Stop date: 03/03/13 9:00:00(Same As: Aldactone) simvastatin 20 mg, 1 tab, Route: PO, Drug form: 02/01/2013 02/01/2013 Discontinued TAB, Bedtime, Dosing Weight 91.5, kg, Start date: 02/01/13 21:00:00, Duration: 30 day, Stop date: 03/02/13 21:00:00(Same as: Zocor) pantoprazole 40 mg, 1 tab, Route: PO, Drug form: 02/01/2013 02/01/2013 Discontinued ECTAB, Before Dinner, Dosing Weight 91.5, kg, Start date: 02/01/13 16:30:00, Duration: 30 day, Stop date: 03/02/13 16:30:00Tablet should not be chewed or crushed.(Same as: Protonix) Remeron 15 mg, 1 tab, Route: PO, Drug form: 02/01/2013 02/01/2013 Discontinued TAB, Bedtime, Dosing Weight 91.5, kg, Start date: 02/01/13 21:00:00, Duration: 30 day, Stop date: 03/02/13 21:00:00(Same as:Remeron) metFORmin 500 mg 500 mg, 1 tab, Route: PO, Drug 02/01/2013 02/01/2013 Discontinued oral tablet form: TAB, BID-Meals, Dosing Weight 91.5, kg, Start date: 02/01/13 9:16:00, Duration: 30 day, Stop date: 03/03/13 8:00:00(Same as: Glucophage) Take with meal lisinopril 40 mg, 2 tab, Route: PO, Drug form: 02/02/2013 02/01/2013 Canceled TAB, Daily, Dosing Weight 91.5, kg, Start date: 02/02/13 9:00:00, Duration: 30 day, Stop date: 03/03/13 9:00:00(Same as: Prinivil, Zestril) clonazepam 2 mg, 2 tab, Route: PO, Drug form: 02/01/2013 02/01/2013 Discontinued TAB, Bedtime, Dosing Weight 91.5, kg, Start date: 02/01/13 21:00:00, Duration: 30 day, Stop date: 03/02/13 21:00:00(Same As: Klonopin) carvedilol 6.25 mg, 1 tab, Route: PO, Drug 02/01/2013 02/01/2013 Discontinued form: TAB, Q12H, Dosing Weight 91.5, kg, Start date: 02/01/13 21:00:00, Duration: 30 day, Stop date: 03/03/13 9:00:00Give with food. (Same As: Coreg) Saline Flush 0.9% 5 ml, Route: IVP, Drug Form: INJ, 02/01/2013 02/01/2013 Discontinued Dosing Weight 129.545, kg, Q12H, Start date: 02/01/13 9:00:00, Duration: 30 day, Stop date: 03/02/13 21:00:00(Same as: BD Posiflush) Saline Flush 0.9% 5 ml, Route: IVP, Drug Form: INJ, 02/01/2013 02/01/2013 Discontinued Dosing Weight 129.545, kg, PRN, PRN Line Flush, Start date: 02/01/13 0:23:00, Duration: 30 day, Stop date: 03/03/13 0:22:00(Same as: BD Posiflush) spironolactone 25 mg, 1 tab, Route: PO, Drug form: 02/01/2013 02/01/2013 Discontinued TAB, Daily, Dosing Weight 129.545, kg, Start date: 02/01/13 9:00:00, Duration: 30 day, Stop date: 03/02/13 9:00:00(Same As: Aldactone) ondansetron 4 mg, 2 mL, Route: IVP, Drug form: 02/01/2013 02/01/2013 Discontinued INJ, Q8H, Dosing Weight 129.545, kg, PRN Nausea & Vomiting, Start date: 02/01/13 0:23:00, Duration: 30 day, Stop date: 03/03/13 0:22:00(Same as: Zofran) carvedilol 6.25 mg, 1 tab, Route: PO, Drug 02/01/2013 02/01/2013 Discontinued form: TAB, Q12H, Dosing Weight 129.545, kg, Start date: 02/01/13 9:00:00, Duration: 30 day, Stop date: 03/02/13 21:00:00Give with food. (Same As: Coreg) furosemide 60 mg, 6 mL, Route: IVP, Drug form: 02/01/2013 02/01/2013 Discontinued INJ, Q12H, Dosing Weight 129.545, kg, Start date: 02/01/13 9:00:00, Duration: 30 day, Stop date: 03/02/13 21:00:00(Same as: Lasix) aspirin 81 mg 81 mg, 1 tab, Route: PO, Drug form: 02/01/2013 02/01/2013 Discontinued tablet, enteric ECTAB, Daily, Dosing Weight coated 129.545, kg, Start date: 02/01/13 9:00:00, Duration: 30 day, Stop date: 03/02/13 9:00:00Do not crush or chew.(Same As: Ecotrin) lisinopril 40 mg, 2 tab, Route: PO, Drug form: 02/01/2013 02/01/2013 Discontinued TAB, Daily, Dosing Weight 129.545, kg, Start date: 02/01/13 9:00:00, Duration: 30 day, Stop date: 03/02/13 9:00:00(Same as: Prinivil, Zestril) acetaminophen 325 mg 650 mg, 2 tab, Route: PO, Drug 02/01/2013 02/01/2013 Discontinued oral tablet form: TAB, Q4H, Dosing Weight 91.5, kg, PRN as needed for fever, Start date: 02/01/13 9:09:00, Duration: 30 day, Stop date: 03/03/13 9:08:00Do not exceed 4 gm/day. (Same as: Tylenol) Sodium Chloride 0.9% 250 mL, Route: IVPB, Start date: 01/31/2013 02/01/2013 Discontinued IV 01/31/13 21:06:00, Duration: 30 day, Stop date: 03/02/13 21:05:00, PRN Line Flush BD Normal Saline 10 mL, Route: IVP, Drug Form: INJ, 01/31/2013 02/01/2013 Discontinued Flush PRN, PRN Line Flush, Start date: 01/31/13 21:06:00, Duration: 30 day, Stop date: 03/02/13 21:05:00(Same as: BD Posiflush) Ativan 1 mg, 0.5 mL, Route: IVP, Drug 02/01/2013 02/01/2013 Discontinued form: INJ, Q6H, Dosing Weight 129.545, kg, PRN Anxiety, Start date: 02/01/13 0:23:00, Duration: 30 day, Stop date: 03/03/13 0:22:00(Same as: Ativan) influenza virus 0.5 ml, Route: IM, Drug Form: SUSP, 12/25/2012 12/25/2012 Completed vaccine, inactivated Start date: 12/25/12 9:00:00, Stop date: 12/25/12 9:00:00 Lasix 60 mg, 6 mL, Route: IV, Drug form: 02/01/2013 02/01/2013 Completed INJ, ONCE, Start date: 02/01/13 17:51:00, Stop date: 02/01/13 17:51:00(Same as: Lasix) Immunizations Vaccine Date Status influenza virus vaccine, inactivated 12/25/2012 Auth (Verified) Vital Signs Most recent to oldest [Reference Range]: 1 2 3 Height 170.1 cm (02/01/2013 00:46:00) 170.18 cm (01/31/2013 20:13:00) Temperature Oral [96.4-99.1 DegF] 97.5 DegF (02/01/2013 16:38:00) 97.5 DegF (02/01/2013 12:08:00) 97.3 DegF (02/01/2013 08:30:00) Systolic Blood Pressure [90-140 mmHg] 132 mmHg (02/01/2013 16:38:00) 120 mmHg (02/01/2013 12:08:00) 131 mmHg (02/01/2013 09:29:00) Diastolic Blood Pressure [60-90 mmHg] 102 mmHg *HI* (02/01/2013 16:38:00) 93 mmHg *HI* (02/01/2013 12:08:00) 97 mmHg *HI* (02/01/2013 09:29:00) Respiratory Rate [14-20 BRMIN] 20 BRMIN (02/01/2013 16:38:00) 19 BRMIN (02/01/2013 12:08:00) 22 BRMIN *HI* (02/01/2013 08:30:00) Peripheral Pulse Rate [60-100 bpm] 87 bpm (02/01/2013 16:38:00) 87 bpm (02/01/2013 12:08:00) 100 bpm (02/01/2013 09:29:00) Weight 91.5 kg (02/01/2013 00:46:00) 129.545 kg (01/31/2013 20:13:00) Results BEDSIDE GLUCOSE TESTING Most recent to oldest [Reference Range]: 1 2 3 Glucose POC [70-99 mg/dL] 138 mg/dL 1 *HI* (02/01/2013 16:21:00) 240 mg/dL 2 *HI* (02/01/2013 11:56:00) 158 mg/dL 3 *HI* (02/01/2013 07:38:00) Gluc POC Comment 1 Notify RN/MD *NA* (02/01/2013 16:21:00) Notify RN/MD *NA* (02/01/2013 11:56:00) Notify RN/MD *NA* (02/01/2013 07:38:00) Gluc POC Comment 2 Assess Patient *NA* (02/01/2013 16:21:00) Assess Patient *NA* (02/01/2013 11:56:00) Assess Patient *NA* (02/01/2013 07:38:00) 1Interpretive Data: Upper Reportable Limit: 200 mg/dL. 2Interpretive Data: Upper Reportable Limit: 200 mg/dL. 3Interpretive Data: Upper Reportable Limit: 200 mg/dL. URINALYSIS Most recent to oldest [Reference Range]: 1 2 3 UA Turbidity [Clear] Slight Cloudy (01/31/2013 22:49:49) UA Color [Yellow] Thu *ABN* (01/31/2013 22:49:49) UA pH [5.0-8.0] 6.0 (01/31/2013 22:49:49) UA Spec Grav [<=1.030] >=1.030 *ABN* (01/31/2013 22:49:49) UA Glucose [Negative] Negative (01/31/2013 22:49:49) UA Blood [Negative] Trace *ABN* (01/31/2013 22:49:49) UA Ketones [Negative] Negative *NA* (01/31/2013 22:49:49) UA Protein [Negative mg/dL] >=300 mg/dL *ABN* (01/31/2013 22:49:49) UA Urobilinogen [0.1-1.0 EU/dL] 0.2 EU/dL (01/31/2013 22:49:49) UA Bili [Negative] Moderate 4 *ABN* (01/31/2013 22:49:49) UA Leuk Est [Negative] Negative (01/31/2013 22:49:49) UA Nitrite [Negative] Negative (01/31/2013 22:49:49) UA WBC [None Seen /HPF] 0-2 /HPF (01/31/2013 22:49:49) UA RBC [0-2 /HPF] 0-2 /HPF (01/31/2013 22:49:49) UA Bacteria [None Seen /HPF] Few /HPF (01/31/2013 22:49:49) UA Sq Epi [Few /LPF] Occasional /LPF (01/31/2013 22:49:49) UA Hyal Cast [0-2] 0-2 (01/31/2013 22:49:49) UA Mucus [None Seen /LPF] Many /LPF *ABN* (01/31/2013 22:49:49) Micro? Performed (01/31/2013 22:49:49) 4Result Comment: Interpret positive bilirubin results with caution. Confirmatory testing not possible due to the unavailability of reagent. Correlation with serum chemistry results recommended. CHEMISTRY Most recent to oldest [Reference Range]: 1 2 3 Sodium Lvl [135-145 mEq/L] 139 mEq/L (01/31/2013:06:00) Potassium Lvl [3.5-5.1 mEq/L] 3.6 mEq/L (01/31/2013:06:00) Chloride Lvl [95-109 mEq/L] 106 mEq/L (01/31/2013:06:00) CO2 [24-32 mEq/L] 24 mEq/L (01/31/2013:06:00) AGAP [10.0-20.0 mEq/L] 12.6 mEq/L (01/31/2013:06:00) Creatinine Lvl [0.5-1.4 mg/dL] 1.0 mg/dL (01/31/2013:06:00) eGFR 89 mL/min/1.73m2 5 *NA* (01/31/2013:06:00) BUN [7-22 mg/dL] 9 mg/dL (01/31/2013:06:00) B/C Ratio [6-25] 9 (01/31/2013:06:00) Glucose Lvl [70-99 mg/dL] 134 mg/dL 6 *HI* (01/31/2013:06:00) Total Protein [6.4-8.4 g/dL] 6.7 g/dL (01/31/2013:06:00) Albumin Lvl [3.5-5.0 g/dL] 3.5 g/dL (01/31/2013:06:00) Globulin [2.0-4.0 g/dL] 3.2 g/dL (01/31/2013:06:00) A/G Ratio [0.7-1.6] 1.1 (01/31/2013:06:00) Calcium Lvl [8.5-10.5 mg/dL] 8.1 mg/dL *LOW* (01/31/2013:06:00) Magnesium Lvl [1.8-2.4 mg/dL] 1.7 mg/dL *LOW* (01/31/2013:06:00) ALT [0-65 unit/L] 21 unit/L (01/31/2013 21:06:00) AST [0-37 unit/L] 17 unit/L (01/31/2013:06:00) Alk Phos [39-136 unit/L] 162 unit/L *HI* (01/31/2013:06:00) Bili Total [0.2-1.3 mg/dL] 1.1 mg/dL (01/31/2013:06:00) Lipase Lvl [73-393 unit/L] 72 unit/L *LOW* (01/31/2013:06:00) Total CK [12-191 unit/L] 240 unit/L *HI* (02/01/2013:15:00) 253 unit/L *HI* (02/01/2013:15:00) 238 unit/L *HI* (01/31/2013:06:00) CK MB [0.5-3.6 ng/mL] 1.7 ng/mL (02/01/2013:15:00) 1.9 ng/mL (02/01/2013:15:00) 1.8 ng/mL (01/31/2013:06:00) CK MB Index [0.0-2.5] 0.7 (02/01/2013:15:00) 0.8 (02/01/2013:15:00) 0.8 (01/31/2013:06:00) Troponin-I [0.00-0.40 ng/mL] 0.04 ng/mL (02/01/2013:15:00) 0.03 ng/mL (02/01/2013:15:00) 0.04 ng/mL (01/31/2013:06:00) BNP [<=100 pg/mL] 1615 pg/mL 7 *HI* (01/31/2013:06:00) 5Result Comment: The eGFR is calculated using [...] values reflect the clinical guidelines of the [place] [employer]. 7Interpretive Data: Elevated results are in line with increasing severity of congestive heart failure. Minor elevations between 100 and 300 may be seen with Myocardial Ischemia, Sodium retaining drugs, and compensated/treated heart failure. HEMATOLOGY Most recent to oldest [Reference Range]: 1 2 3 WBC [3.7-10.4 K/CMM] 6.6 K/CMM (01/31/2013:06:00) RBC [4.70-6.10 M/CMM] 5.32 M/CMM (01/31/2013:) Hgb [14.0-18.0 g/dL] 15.0 g/dL (01/31/2013:00) Hct [42.0-54.0 %] 46.8 % (01/31/2013:00) MCV [80.0-94.0 fL] 87.9 fL (01/31/2013:00) MCH [27.0-31.0 pg] 28.1 pg (01/31/2013:00) MCHC [32.0-36.0 g/dL] 32.0 g/dL (01/31/2013::00) RDW [11.5-14.5 %] 15.7 % *HI* (01/31/2013:00) Platelet [133-450 K/CMM] 203 K/CMM (01/31/2013::00) MPV [7.4-10.4 fL] 8.6 fL (01/31/201300) Segs [45.0-75.0 %] 79.0 % *HI* (01/31/2013:) Lymphocytes [20.0-40.0 %] 12.8 % *LOW* (01/31/201306:00) Monocytes [2.0-12.0 %] 7.1 % (01/31/2013 21:06:00) Eosinophils [0.0-4.0 %] 0.7 % (01/31/2013 21:06:00) Basophils [0.0-1.0 %] 0.4 % (01/31/2013 21:06:00) Segs-Bands # [1.5-8.1 K/CMM] 5.2 K/CMM (01/31/2013 21:06:00) Lymphocytes # [1.0-5.5 K/CMM] 0.8 K/CMM *LOW* (01/31/2013 21:06:00) Monocytes # [0.0-0.8 K/CMM] 0.5 K/CMM (01/31/2013 21:06:00) Eosinophils # [0.0-0.5 K/CMM] 0.0 K/CMM (01/31/2013 21:06:00) Basophils # [0.0-0.2 K/CMM] 0.0 K/CMM (01/31/2013 21:06:00) PT [12.0-14.7 seconds] 16.9 seconds *HI* (01/31/2013 21:06:00) INR [0.85-1.17] 1.39 8 *HI* (01/31/2013 21:06:00) PTT [22.9-35.8 seconds] 30.3 seconds 9 (01/31/2013 21:06:00) 8Interpretive Data: RECOMMENDED RANGES FOR PROTIME INR: 2.0-3.0 for most medical and surgical thromboembolic states. 2.5-3.5 for artificial heart valves and recurrent embolism. INR SHOULD BE USED ONLY FOR PATIENTS ON STABLE ANTICOAGULANT THERAPY. 9Interpretive Data: Heparin Therapeutic Range: 57 - 92 Seconds
--- OUTSIDE RECORDS SUMMARY | 2018-12-19 01:24 | XMS REPORT | CCD ---
Author Author Auto Generated Organization [facility] Address Unknown Phone Unavailable Care Team Providers Care Food And Beverage Associate Name Role Phone Harriet Swan CP Allergies, [...] SUB-Q, Drug 01/22/2013 01/24/2013 Discontinued form: INJ, [id number], Dosing Weight 127.273, kg, Start date: 01/22/13 15:00:00, Duration: 30 day, Stop date: 02/20/13 15:00:00(Same as: Lovenox) temazepam 15 mg, 1 cap, Route: PO, Drug form: 01/22/2013 01/24/2013 Discontinued CAP, Bedtime, Dosing Weight 127.273, kg, PRN Sleep, Start date: 01/22/13 15:31:00, Duration: 30 day, Stop date: 02/21/13 15:30:00(Same As: Restoril) [place] 5/325 oral 1 tab, Route: PO, Drug Form: TAB, 01/22/2013 01/24/2013 Discontinued tablet Dosing Weight 127.273, kg, Q6H, PRN Pain, Start date: 01/22/13 15:31:00, Duration: 30 day, Stop date: 02/21/13 15:30:00(Same as: Divide 325/5) Do not exceed 4gm/day of acetaminophen. [...] [Negative] Negative 1 (01/22/2013 21:30:00) 1Interpretive Data: [place] [employer] Clostridium difficile assay utilizes loop-mediated isothermal DNA amplification (LAMP) technology to detect a 204 bp region of the tcdA gene within the PaLoc gene segment present in all known toxigenic C. difficile strains. The assay utilizes FDA cleared IVD reagents. Performance characteristics have be en verified by the [facility] within the [facility]. The Molecular Diagnostic Laboratory is authorized under [...] of the [place] [employer]. 9Interpretive Data: Adult reference range values reflect the clinical guidelines of the [place] [employer]. 10Interpretive Data: Adult reference range values reflect the clinical guidelines of the [place] [employer]. 11Interpretive Data: Elevated results are [...]
--- OUTSIDE RECORDS SUMMARY | 2018-12-19 01:24 | XMS REPORT | CCD ---
Author Author Auto Generated Organization [facility] Address Unknown Phone Unavailable Care Team Providers Care Piano Case Maker Name Role Phone Harriet Swan CP Allergies, [...] SUB-Q, Drug 01/22/2013 01/24/2013 Discontinued form: INJ, [id number], Dosing Weight 127.273, kg, Start date: 01/22/13 15:00:00, Duration: 30 day, Stop date: 02/20/13 15:00:00(Same as: Lovenox) temazepam 15 mg, 1 cap, Route: PO, Drug form: 01/22/2013 01/24/2013 Discontinued CAP, Bedtime, Dosing Weight 127.273, kg, PRN Sleep, Start date: 01/22/13 15:31:00, Duration: 30 day, Stop date: 02/21/13 15:30:00(Same As: Restoril) [place] 5/325 oral 1 tab, Route: PO, Drug Form: TAB, 01/22/2013 01/24/2013 Discontinued tablet Dosing Weight 127.273, kg, Q6H, PRN Pain, Start date: 01/22/13 15:31:00, Duration: 30 day, Stop date: 02/21/13 15:30:00(Same as: [place] 325/5) Do not exceed 4gm/day of acetaminophen. [...] [Negative] Negative 1 (01/22/2013 21:30:00) 1Interpretive Data: [place] [employer] Clostridium difficile assay utilizes loop-mediated isothermal DNA amplification (LAMP) technology to detect a 204 bp region of the tcdA gene within the PaLoc gene segment present in all known toxigenic C. difficile strains. The assay utilizes FDA cleared IVD reagents. Performance characteristics have be en verified by the [facility] within the [facility]. The [facility] is authorized under [...] values reflect the clinical guidelines of the [place] [employer]. 9Interpretive Data: Adult reference range values reflect the clinical guidelines of the [place] [employer]. 10Interpretive Data: Adult reference range values reflect the clinical guidelines of the [place] [employer]. 11Interpretive Data: Elevated results are [...]
--- OUTSIDE RECORDS SUMMARY | 2018-12-19 01:25 | XMS REPORT | CCD ---
Author Author Auto Generated Organization [facility] Address Unknown Phone Unavailable Care Team Providers Care Drum Attendant Name Role Phone Jacob Murphy CP Allergies, [...] values reflect the clinical guidelines of the [place] [employer]. 8Interpretive Data: Adult reference range values reflect the clinical guidelines of the [place] [employer]. 9Interpretive Data: Elevated results are [...]
--- OUTSIDE RECORDS SUMMARY | 2018-12-19 01:25 | XMS REPORT | CCD ---
Author Author Auto Generated Organization [facility] Address Unknown Phone Unavailable Care Team Providers Care Temper Mill Operator Name Role Phone Jacob Murphy CP Allergies, [...] values reflect the clinical guidelines of the [place] [employer]. 8Interpretive Data: Adult reference range values reflect the clinical guidelines of the [place] [employer]. 9Interpretive Data: Elevated results are [...]
--- OUTSIDE RECORDS SUMMARY | 2018-12-19 01:25 | XMS REPORT | CCD ---
Author Author Auto Generated Organization [facility] Address Unknown Phone Unavailable Care Team Providers Care Harbor Tug Captain Name Role Phone Harriet Swan CP Allergies, [...] SUB-Q, Drug 01/22/2013 01/24/2013 Discontinued form: INJ, [id number], Dosing Weight 127.273, kg, Start date: 01/22/13 15:00:00, Duration: 30 day, Stop date: 02/20/13 15:00:00(Same as: Lovenox) temazepam 15 mg, 1 cap, Route: PO, Drug form: 01/22/2013 01/24/2013 Discontinued CAP, Bedtime, Dosing Weight 127.273, kg, PRN Sleep, Start date: 01/22/13 15:31:00, Duration: 30 day, Stop date: 02/21/13 15:30:00(Same As: Restoril) [place] 5/325 oral 1 tab, Route: PO, Drug Form: TAB, 01/22/2013 01/24/2013 Discontinued tablet Dosing Weight 127.273, kg, Q6H, PRN Pain, Start date: 01/22/13 15:31:00, Duration: 30 day, Stop date: 02/21/13 15:30:00(Same as: Remer 325/5) Do not exceed 4gm/day of acetaminophen. [...] [Negative] Negative 1 (01/22/2013 21:30:00) 1Interpretive Data: [place] [employer] Clostridium difficile assay utilizes loop-mediated isothermal DNA amplification (LAMP) technology to detect a 204 bp region of the tcdA gene within the PaLoc gene segment present in all known toxigenic C. difficile strains. The assay utilizes FDA cleared IVD reagents. Performance characteristics have be en verified by the [facility] within the [facility]. The [facility] is [...] values reflect the clinical guidelines of the [place] [employer]. 9Interpretive Data: Adult reference range values reflect the clinical guidelines of the [place] [employer]. 10Interpretive Data: Adult reference range values reflect the clinical guidelines of the [place] [employer]. 11Interpretive Data: Elevated results are [...]
--- OUTSIDE RECORDS SUMMARY | 2018-12-19 01:25 | XMS REPORT | CCD ---
Author Author Auto Generated Organization [facility] Address Unknown Phone Unavailable Care Team Providers Care [employer]ist Name Role Phone Eleuterio Xie CP Allergies, Adverse Reactions, Alerts Substance Reaction Status NKDA Active potassium chloride Active sodium chloride Active Problem List Condition Effective Dates Status [D]Anterior chest wall pain 12/07/2011 Active Anxiety Resolved BP+ - Hypertension Active Cardiomyopathy Resolved CHF - Congestive heart failure Active CHF - Congestive heart failure Active Depression Active dm Active Down syndrome Active GERD - Gastro-esophageal reflux disease Active H/O: schizophrenia Active HTN Active 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 NIDDM Active Obese build Active Short of breath on exertion Active Sleep apnea Active Medications Medication Instructions Start Date End Date Status clonazePAM 2 mg, 2 tab, Route: PO, Drug form: 04/05/2013 04/06/2013 Discontinued TAB, Bedtime, Dosing Weight 101.2, kg, Start date: 04/05/13 21:00:00, Duration: 30 day, Stop date: 05/04/13 21:00:00(Same As: KlonoPIN) carvedilol 6.25 mg, 1 tab, Route: PO, Drug 04/05/2013 04/10/2013 Discontinued form: TAB, Q12H, Dosing Weight 101.2, kg, Start date: 04/05/13 11:00:00, Duration: 30 day, Stop date: 05/05/13 9:00:00Give with food. (Same As: Coreg) folic acid 1 mg, 1 tab, Route: PO, Drug form: 04/04/2013 04/10/2013 Discontinued TAB, Daily, Dosing Weight 101.2, kg, Start date: 04/04/13 10:00:00, Duration: 30 day, Stop date: 05/04/13 9:00:00(Same as: Folvite) Ativan 2 mg, 2 tab, Route: PO, Drug form: 04/03/2013 04/05/2013 Discontinued TAB, Q6H, Dosing Weight 109.091, kg, PRN Anxiety, Start date: 04/03/13 17:13:00, Duration: 30 day, Stop date: 05/03/13 17:12:00(Same as: Ativan) enoxaparin 110 mg, 0.73 mL, Route: SUB-Q, Drug 04/03/2013 04/03/2013 Completed form: INJ, ONCE, Dosing Weight 109.091, kg, Priority: STAT, Start date: 04/03/13 13:29:00, Stop date: 04/03/13 13:29:00Nurse to ensure documentation of patient education per anticoagulation policy. (Same as: Lovenox) magnesium sulfate 2 gm, 50 mL, Route: IVPB, Drug 04/07/2013 04/07/2013 Completed form: INJ, ONCE, Dosing Weight 101.2, kg, Total dose=2 gm, Start date: 04/07/13 15:28:00, Duration: 1 doses or times, Stop date: 04/07/13 15:28:00 furosemide 60 mg, PO, Daily, 0 Refill(s) 04/04/2013 Ordered thiamine 100 mg, 1 tab, Route: PO, Drug 04/04/2013 04/10/2013 Discontinued form: TAB, Daily, Dosing Weight 101.2, kg, Start date: 04/04/13 10:00:00, Duration: 30 day, Stop date: 05/04/13 9:00:00(Same As: Vitamin B1) Advair Diskus 250 1 inhalation, Route: INHALER, Drug 04/05/2013 04/10/2013 Discontinued mcg-50 mcg Form: AERO, Dosing Weight 101.2, inhalation powder kg, BID, Start date: 04/05/13 17:00:00, Duration: 30 day, Stop date: 05/05/13 9:00:00(Same as: Advair) Saline Flush 0.9% 5 ml, Route: IVP, Drug Form: INJ, 04/03/2013 04/03/2013 Discontinued Dosing Weight 109.091, kg, Q12H, Start date: 04/03/13 21:00:00, Duration: 30 day, Stop date: 05/03/13 9:00:00(Same as: BD Posiflush) Saline Flush 0.9% 5 ml, Route: IVP, Drug Form: INJ, 04/03/2013 04/03/2013 Discontinued Dosing Weight 109.091, kg, PRN, PRN Line Flush, Start date: 04/03/13 16:59:00, Duration: 30 day, Stop date: 05/03/13 16:58:00(Same as: BD Posiflush) albuterol 0.083% 2.49 mg, 3 mL, Route: NEB, Drug 04/03/2013 04/05/2013 Discontinued inhalation solution form: SOLN, PRN, Dosing Weight 109.091, kg, PRN Respiratory Protocol, Start date: 04/03/13 16:59:00, Duration: 30 day, Stop date: 05/03/13 16:58:00SEE RT DOCUMENTATION (Same as: Proventil) acetaminophen 650 mg, 2 tab, Route: PO, Drug 04/03/2013 04/05/2013 Discontinued form: TAB, Q4H, Dosing Weight 109.091, kg, PRN For Temp > 100.4 F, Start date: 04/03/13 16:59:00, Duration: 30 day, Stop date: 05/03/13 16:58:00Do not exceed 4 gm/day. (Same as: Tylenol) pantoprazole 40 mg, 1 tab, Route: PO, Drug form: 04/04/2013 04/05/2013 Discontinued ECTAB, Before Breakfast, Dosing Weight 109.091, kg, Start date: 04/04/13 7:30:00, Duration: 30 day, Stop date: 05/03/13 7:30:00Tablet should not be chewed or crushed.(Same as: Protonix) simvastatin 20 mg 20 mg=1 tab, PO, Bedtime, # 30 tab, 04/04/2013 Ordered oral tablet 0 Refill(s) glucagon 1 mg, Route: IV, Drug form: 04/04/2013 04/10/2013 Discontinued PDR/INJ, PRN, PRN Blood Glucose Results, Start date: 04/04/13 13:04:00, Duration: 30 day, Stop date: 05/04/13 13:03:00 Spiriva 18 microgram, 1 inhalation, Route: 04/06/2013 04/10/2013 Discontinued INHALATION, Drug form: CAP, Daily, Dosing Weight 101.2, kg, Start date: 04/06/13 9:00:00, Duration: 30 day, Stop date: 05/05/13 9:00:00(Same As: Spiriva) Dextrose 50% in 50 mL, Route: IVP, Start date: 04/04/2013 04/10/2013 Discontinued Water IV 04/04/13 13:03:00, Duration: 30 day, Stop date: 05/04/13 13:02:00, PRN Blood Glucose Results Geodon 20 mg oral 20 mg=1 cap, PO, QPM, 0 Refill(s) 04/04/2013 Ordered capsule NovoLog FlexPen 8 unit, 0.08 mL, Route: SUB-Q, Drug 04/04/2013 04/10/2013 Discontinued form: SOLN, Sliding Scale, PRN Blood Glucose Results, Start date: 04/04/13 13:03:00, Duration: 30 day, Stop date: 05/04/13 13:02:00Roll in palms of hands gently; Do not shake vigorously. (Same as: NovoLog)"single patient use only" Stable for 28 days at room temperature.Expires in days from Date NovoLog FlexPen 6 unit, 0.06 mL, Route: SUB-Q, Drug 04/04/2013 04/10/2013 Discontinued form: SOLN, Sliding Scale, PRN Blood Glucose Results, Start date: 04/04/13 13:03:00, Duration: 30 day, Stop date: 05/04/13 13:02:00Roll in palms of hands gently; Do not shake vigorously. (Same as: NovoLog)"single patient use only" Stable for 28 days at room temperature.Expires in days from Date NovoLog FlexPen 5 unit, 0.05 mL, Route: SUB-Q, Drug 04/04/2013 04/10/2013 Discontinued form: SOLN, Sliding Scale, PRN Blood Glucose Results, Start date: 04/04/13 13:03:00, Duration: 30 day, Stop date: 05/04/13 13:02:00Roll in palms of hands gently; Do not shake vigorously. (Same as: NovoLog)"single patient use only" Stable for 28 days at room temperature.Expires in days from Date ZyPREXA Zydis 2.5 mg, 0.5 tab, Route: PO, Drug 04/06/2013 04/10/2013 Discontinued form: TABDIS, BID, Start date: 04/06/13 17:00:00, Duration: 30 day, Stop date: 05/06/13 9:00:00(Same as: ZyPREXA Zydis ODT-Oral Disintegrating Tablet) ALPRAZOLam 1 mg oral 1 mg=1 tab, PO, Bedtime, for 04/04/2013 Ordered tablet, anxiety, 0 Refill(s) disintegrating NovoLog FlexPen 4 unit, 0.04 mL, Route: SUB-Q, Drug 04/04/2013 04/10/2013 Discontinued form: SOLN, Sliding Scale, PRN Blood Glucose Results, Start date: 04/04/13 13:02:00, Duration: 30 day, Stop date: 05/04/13 13:01:00Roll in palms of hands gently; Do not shake vigorously. (Same as: NovoLog)"single patient use only" Stable for 28 days at room temperature.Expires in days from Date Tylenol 325 mg oral 650 mg=2 tab, PO, Q4H, Fever, # 120 04/04/2013 Ordered tablet tab, 0 Refill(s) Xarelto 15 mg, 1 tab, Route: PO, Drug form: 04/08/2013 04/10/2013 Discontinued TAB, Q12H, Dosing Weight 99.545, kg, Start date: 04/08/13 9:00:00, Duration: 30 day, Stop date: 05/07/13 21:00:00(Same as: Xarelto)Administer with food thiamine 100 mg oral 100 mg=1 tab, PO, Daily, # 30 tab, 04/10/2013 Ordered tablet 0 Refill(s) rivaroxaban 15 mg 15 mg=1 tab, PO, Q12H, # 60 tab, 0 04/10/2013 Ordered tablet Refill(s) potassium chloride 20 mEq=1 tab, PO, BID, # 60 tab, 0 04/10/2013 Ordered 20 mEq oral tablet, Refill(s) extended release OLANZapine 5 mg oral 2.5 mg=0.5 tab, PO, BID, # 30 tab, 04/10/2013 Ordered tablet, 0 Refill(s) disintegrating aspirin 81 mg, 1 tab, Route: PO, Drug form: 04/04/2013 04/10/2013 Discontinued ECTAB, Daily, Dosing Weight 109.091, kg, Start date: 04/04/13 9:00:00, Duration: 30 day, Stop date: 05/03/13 9:00:00Do not crush or chew.(Same As: Ecotrin) metoprolol tartrate 25 mg, 1 tab, Route: PO, Drug form: 04/03/2013 04/10/2013 Discontinued TAB, Q6H, Dosing Weight 109.091, kg, Start date: 04/03/13 12:00:00, Duration: 30 day, Stop date: 05/03/13 6:00:00(Same as: Lopressor) nitroglycerin SL Tab 0.4 mg, 1 tab, Route: SL, Drug 04/03/2013 04/10/2013 Discontinued form: TAB, Q5Min, Dosing Weight 109.091, kg, PRN Chest Pain, Start date: 04/03/13 11:33:00, Duration: 3 doses or times, Stop date: Limited # of times(Same as:Nitroquick, Nitrostat)"Do Not Crush" Sublingual tablet Saline Flush 0.9% 5 ml, Route: IVP, Drug Form: INJ, 04/03/2013 04/03/2013 Discontinued Dosing Weight 109.091, kg, Q12H, Start date: 04/03/13 21:00:00, Duration: 30 day, Stop date: 05/03/13 9:00:00(Same as: BD Posiflush) Saline Flush 0.9% 5 ml, Route: IVP, Drug Form: INJ, 04/03/2013 04/03/2013 Discontinued Dosing Weight 109.091, kg, PRN, PRN Line Flush, Start date: 04/03/13 11:33:00, Duration: 30 day, Stop date: 05/03/13 11:32:00(Same as: BD Posiflush) losartan 50 mg oral 50 mg=1 tab, PO, Daily, # 30 04/10/2013 Ordered tablet caplet, 0 Refill(s) Geodon 20 mg, 1 cap, Route: PO, Drug form: 04/05/2013 04/06/2013 Discontinued CAP, QPM, Dosing Weight 101.2, kg, Start date: 04/05/13 17:00:00, Duration: 30 day, Stop date: 05/04/13 17:00:00(Same As: Geodon)Give with Food thiothixene 5 mg, 1 cap, Route: PO, Drug form: 04/05/2013 04/06/2013 Discontinued CAP, TID, Dosing Weight 101.2, kg, Start date: 04/05/13 13:00:00, Duration: 30 day, Stop date: 05/05/13 9:00:00(Same As: Navane) Advair Diskus 250 1 inhalation, INHALER, BID, # 28 04/10/2013 Ordered mcg-50 mcg ea, 0 Refill(s) inhalation powder glucagon 1 mg, Route: IM, Drug form: 04/03/2013 04/04/2013 Discontinued PDR/INJ, PRN, Dosing Weight 109.091, kg, PRN Blood Glucose Results, Start date: 04/03/13 17:58:00, Duration: 30 day, Stop date: 05/03/13 17:57:00 Dextrose 50% Syringe 12.5 gm, 25 mL, Route: IVP, Drug 04/03/2013 04/04/2013 Discontinued Form: INJ, Dosing Weight 109.091, kg, PRN, PRN Blood Glucose Results, Start date: 04/03/13 17:58:00, Duration: 30 day, Stop date: 05/03/13 17:57:00 Dextrose 50% Syringe 25 gm, 50 mL, Route: IVP, Drug 04/03/2013 04/04/2013 Discontinued Form: INJ, Dosing Weight 109.091, kg, PRN, PRN Blood Glucose Results, Start date: 04/03/13 17:58:00, Duration: 30 day, Stop date: 05/03/13 17:57:00 insulin aspart 2 unit, 0.02 mL, Route: SUB-Q, Drug 04/03/2013 04/04/2013 Discontinued form: SOLN, TID-Before Meals, Dosing Weight 109.091, kg, PRN Blood Glucose Results, Start date: 04/03/13 17:58:00, Duration: 30 day, Stop date: 05/03/13 17:57:00Roll in palms of hands gently; Do not shake vigorously. (Same as: NovoLog)"single patient use only" Stable for 28 days at room temperature.Expires in days from Date insulin aspart 10 unit, 0.1 mL, Route: SUB-Q, Drug 04/03/2013 04/04/2013 Discontinued form: SOLN, TID-Before Meals, Dosing Weight 109.091, kg, PRN Blood Glucose Results, Start date: 04/03/13 17:58:00, Duration: 30 day, Stop date: 05/03/13 17:57:00Roll in palms of hands gently; Do not shake vigorously. (Same as: NovoLog)"single patient use only" Stable for 28 days at room temperature.Expires in days from Date insulin aspart 4 unit, 0.04 mL, Route: SUB-Q, Drug 04/03/2013 04/04/2013 Discontinued form: SOLN, TID-Before Meals, Dosing Weight 109.091, kg, PRN Blood Glucose Results, Start date: 04/03/13 17:58:00, Duration: 30 day, Stop date: 05/03/13 17:57:00Roll in palms of hands gently; Do not shake vigorously. (Same as: NovoLog)"single patient use only" Stable for 28 days at room temperature.Expires in days from Date insulin aspart 8 unit, 0.08 mL, Route: SUB-Q, Drug 04/03/2013 04/04/2013 Discontinued form: SOLN, TID-Before Meals, Dosing Weight 109.091, kg, PRN Blood Glucose Results, Start date: 04/03/13 17:58:00, Duration: 30 day, Stop date: 05/03/13 17:57:00Roll in palms of hands gently; Do not shake vigorously. (Same as: NovoLog)"single patient use only" Stable for 28 days at room temperature.Expires in days from Date insulin aspart 6 unit, 0.06 mL, Route: SUB-Q, Drug 04/03/2013 04/04/2013 Discontinued form: SOLN, TID-Before Meals, Dosing Weight 109.091, kg, PRN Blood Glucose Results, Start date: 04/03/13 17:58:00, Duration: 30 day, Stop date: 05/03/13 17:57:00Roll in palms of hands gently; Do not shake vigorously. (Same as: NovoLog)"single patient use only" Stable for 28 days at room temperature.Expires in days from Date Remeron 15 mg oral 15 mg=1 tab, PO, Bedtime, # 30 tab, 04/04/2013 04/10/2013 Discontinued tablet 0 Refill(s) spironolactone 25 mg, 1 tab, Route: PO, Drug form: 04/05/2013 04/10/2013 Discontinued TAB, Daily, Dosing Weight 101.2, kg, Start date: 04/05/13 11:00:00, Duration: 30 day, Stop date: 05/05/13 9:00:00(Same As: Aldactone) simvastatin 20 mg, 1 tab, Route: PO, Drug form: 04/05/2013 04/10/2013 Discontinued TAB, Bedtime, Dosing Weight 101.2, kg, Start date: 04/05/13 21:00:00, Duration: 30 day, Stop date: 05/04/13 21:00:00(Same as: Zocor) carvedilol 6.25 mg 6.25 mg=1 tab, PO, Q12H, # 60 tab, 04/04/2013 Ordered oral tablet 0 Refill(s) Remeron 15 mg, 1 tab, Route: PO, Drug form: 04/05/2013 04/06/2013 Discontinued TAB, Bedtime, Dosing Weight 101.2, kg, Start date: 04/05/13 21:00:00, Duration: 30 day, Stop date: 05/04/13 21:00:00(Same as:Remeron) furosemide 60 mg, 6 mL, Route: IVP, Drug form: 04/03/2013 04/03/2013 Canceled INJ, BID, Dosing Weight 109.091, kg, Start date: 04/03/13 17:00:00, Duration: 30 day, Stop date: 05/03/13 9:00:00(Same as: Lasix) Cozaar 50 mg, 1 tab, Route: PO, Drug form: 04/03/2013 04/10/2013 Discontinued TAB, Daily, Dosing Weight 109.091, kg, Start date: 04/03/13 18:30:00, Duration: 30 day, Stop date: 05/03/13 9:00:00(Same as: Cozaar) pantoprazole 40 mg 40 mg=1 tab, PO, Daily, # 30 tab, 0 04/04/2013 Ordered oral enteric coated Refill(s) tablet potassium chloride 20 mEq, 1 tab, Route: PO, Drug 04/03/2013 04/10/2013 Discontinued form: ERTAB, BID, Dosing Weight 109.091, kg, Start date: 04/03/13 18:30:00, Duration: 30 day, Stop date: 05/03/13 17:00:00(Same as: K-Dur 20)"Do Not Crush" With food and full glass of water Lasix 40 mg, 4 mL, Route: IV, Drug form: 04/03/2013 04/10/2013 Discontinued INJ, BID, Dosing Weight 109.091, kg, Start date: 04/03/13 18:30:00, Duration: 30 day, Stop date: 05/03/13 17:00:00(Same as: Lasix) metFORMIN 500 mg 500 mg, 1 tab, Route: PO, Drug 04/05/2013 04/10/2013 Discontinued oral tablet form: TAB, BID, Dosing Weight 101.2, kg, Start date: 04/05/13 17:00:00, Duration: 30 day, Stop date: 05/05/13 9:00:00(Same as: Glucophage) Take with meal Sodium Chloride 0.9% 250 mL, Route: IVPB, Start date: 04/03/2013 04/10/2013 Discontinued IV 04/03/13 18:06:00, Duration: 30 day, Stop date: 05/03/13 18:05:00, PRN Line Flush BD Normal Saline 10 mL, Route: IVP, Drug Form: INJ, 04/03/2013 04/10/2013 Discontinued Flush PRN, PRN Line Flush, Start date: 04/03/13 18:06:00, Duration: 30 day, Stop date: 05/03/13 18:05:00(Same as: BD Posiflush) Lovenox 110 mg, 0.73 mL, Route: SUB-Q, Drug 04/04/2013 04/08/2013 Discontinued form: INJ, [id number], Dosing Weight 109.091, kg, Start date: 04/04/13 1:00:00, Duration: 30 day, Stop date: 05/03/13 4:00:00Nurse to ensure documentation of patient education per anticoagulation policy. (Same as: Lovenox) Saline Flush 0.9% 5 mL, Route: IVP, Drug Form: INJ, 04/03/2013 04/03/2013 Discontinued Dosing Weight 109.091, kg, Q8H, PRN Line Flush, Start date: 04/03/13 6:18:00, Duration: 30 day, Stop date: 05/03/13 6:17:00, Administer at least once every 8 hours Administer at least once every 8 hours(Same as: BD Posiflush) aspirin 324 mg, Route: PO, ONCE, Dosing 04/03/2013 04/03/2013 Completed Weight 109.091, kg, Priority: STAT, Start date: 04/03/13 6:18:00, Stop date: 04/03/13 6:18:00 metFORMIN 500 mg 500 mg=1 tab, PO, BID, # 30 tab, 0 04/04/2013 Ordered oral tablet Refill(s) ALPRAZOLam 1 mg oral 1 mg=1 tab, PO, BID, for anxiety, 0 04/04/2013 Ordered tablet, Refill(s) disintegrating influenza virus 0.5 ml, Route: IM, Drug Form: SUSP, 12/25/2012 12/25/2012 Completed vaccine, inactivated Start date: 12/25/12 9:00:00, Stop date: 12/25/12 9:00:00 hydrALAZINE 10 mg, 0.5 mL, Route: IV, Drug 04/04/2013 04/04/2013 Completed form: INJ, ONCE, Start date: 04/04/13 5:32:00, Stop date: 04/04/13 5:32:00(Same as: Apresoline)Push over 5 minutes Ativan 2 mg, Route: IVP, Drug form: INJ, 04/03/2013 04/03/2013 Completed ONCE, Dosing Weight 109.091, kg, Priority: STAT, Start date: 04/03/13 9:52:00, Stop date: 04/03/13 9:52:00 potassium chloride 20 mEq, 15 mL, Route: NJ, Drug 04/04/2013 04/05/2013 Discontinued form: LIQ, PRN, Dosing Weight 101.2, kg, PRN Abnormal Lab Result, Start date: 04/04/13 9:40:00, Duration: 30 day, Stop date: 05/04/13 9:39:00, FOR ICU USE ONLY FOR ICU USE ONLY(Same as: Potassium Chloride) sodium phosphate + 30 mmol, 10 mL, Route: IVPB, PRN, 04/04/2013 04/05/2013 Discontinued Sodium Chloride 0.9% Dosing Weight 101.2, kg, PRN IV 250 mL Abnormal Lab Result, Start date: 04/04/13 9:40:00, Duration: 30 day, Stop date: 05/04/13 9:39:00, FOR ICU USE ONLY FOR ICU USE ONLY sodium phosphate + 45 mmol, 15 mL, Route: IVPB, Drug 04/04/2013 04/05/2013 Discontinued Sodium Chloride 0.9% form: INJ, PRN, Dosing Weight IV 250 mL 101.2, kg, PRN Abnormal Lab Result, Start date: 04/04/13 9:40:00, Duration: 30 day, Stop date: 05/04/13 9:39:00, FOR ICU USE ONLY FOR ICU USE ONLY potassium phosphate 15 mmol, 5 mL, Route: IVPB, PRN, 04/04/2013 04/05/2013 Discontinued + Sodium Chloride Dosing Weight 101.2, kg, PRN 0.9% IV 250 mL Abnormal Lab Result, Start date: 04/04/13 9:40:00, Duration: 30 day, Stop date: 05/04/13 9:39:00, FOR ICU USE ONLY FOR ICU USE ONLY(Same as: K Phosphate.) 1 mMol phoshate has 1.47 mEq potassium Infuse over 4 hours potassium phosphate 30 mmol, 10 mL, Route: IVPB, PRN, 04/04/2013 04/05/2013 Discontinued + Sodium Chloride Dosing Weight 101.2, kg, PRN 0.9% IV 250 mL Abnormal Lab Result, Start date: 04/04/13 9:40:00, Duration: 30 day, Stop date: 05/04/13 9:39:00, FOR ICU USE ONLY FOR ICU USE ONLY(Same as: K Phosphate.) 1 mMol phoshate has 1.47 mEq potassium Infuse over 4 hours potassium phosphate 45 mmol, 15 mL, Route: IVPB, Drug 04/04/2013 04/05/2013 Discontinued + Sodium Chloride form: INJ, PRN, Dosing Weight 0.9% IV 250 mL 101.2, kg, PRN Abnormal Lab Result, Start date: 04/04/13 9:40:00, Stop date: 05/04/13 9:39:00, FOR ICU USE ONLY FOR ICU USE ONLY(Same as: K Phosphate.) 1 mMol phoshate has 1.47 mEq potassium Infuse over 4 hours magnesium sulfate 2 gm, 50 mL, Route: IVPB, Drug 04/04/2013 04/05/2013 Discontinued form: INJ, PRN, Dosing Weight 101.2, kg, PRN Abnormal Lab Result, Start date: 04/04/13 9:40:00, Duration: 30 day, Stop date: 05/04/13 9:39:00, FOR ICU USE ONLY FOR ICU USE ONLY sodium phosphate + 15 mmol, 5 mL, Route: IVPB, PRN, 04/04/2013 04/05/2013 Discontinued Sodium Chloride 0.9% Dosing Weight 101.2, kg, PRN IV 250 mL Abnormal Lab Result, Start date: 04/04/13 9:40:00, Duration: 30 day, Stop date: 05/04/13 9:39:00, FOR ICU USE ONLY FOR ICU USE ONLY calcium gluconate 1 gm, 50 mL, Route: IVPB, Drug 04/04/2013 04/05/2013 Discontinued form: INJ, PRN, Dosing Weight 101.2, kg, PRN Abnormal Lab Result, Start date: 04/04/13 9:40:00, Duration: 30 day, Stop date: 05/04/13 9:39:00, FOR ICU USE ONLY FOR ICU USE ONLY enoxaparin 110 mg, 0.73 mL, Route: SUB-Q, Drug 04/03/2013 04/03/2013 Discontinued form: INJ, [id number], Dosing Weight 109.091, kg, Start date: 04/03/13 17:00:00, Duration: 30 day, Stop date: 05/03/13 5:00:00Nurse to ensure documentation of patient education per anticoagulation policy. (Same as: Lovenox) Colace 100 mg oral 100 mg, 1 cap, Route: PO, Drug 04/04/2013 04/10/2013 Discontinued capsule form: CAP, BID, Dosing Weight 101.2, kg, Start date: 04/04/13 10:00:00, Duration: 30 day, Stop date: 05/04/13 9:00:00(Same as: Colace) (Do Not Crush) aspirin 81 mg 81 mg=1 tab, PO, Daily, # 0 tab, 0 04/04/2013 Ordered tablet, enteric Refill(s) coated Xanax 1 mg, 1 tab, Route: PO, Drug form: 04/06/2013 04/10/2013 Discontinued TAB, Q6H, PRN Anxiety, Start date: 04/06/13 16:24:00, Duration: 30 day, Stop date: 05/06/13 16:23:00With food or milk(Same as: Xanax) lisinopril 40 mg 40 mg=1 tab, PO, Daily, # 30 tab, 0 04/04/2013 Ordered oral tablet Refill(s) thiothixene 5 mg, PO, TID, 0 Refill(s) 04/04/2013 Ordered Navane 10 mg, 2 cap, Route: PO, Drug form: 04/06/2013 04/10/2013 Discontinued CAP, Bedtime, Start date: 04/06/13 21:00:00, Duration: 30 day, Stop date: 05/05/13 21:00:00(Same As: Navane) morphine Sulfate 2 mg, 1 mL, Route: IV, Drug form: 04/06/2013 04/06/2013 Completed INJ, ONCE, Dosing Weight 101.2, kg, Priority: NOW, Start date: 04/06/13 20:47:00, Stop date: 04/06/13 20:47:00(Same as:MORPhine Sulfate) spironolactone 25 mg =25 mg, PO, Daily, 0 Refill(s) 04/04/2013 Ordered oral tablet clonazePAM 2 mg oral =2 mg, Bedtime, 0 Refill(s) 04/04/2013 Ordered tablet lisinopril 40 mg, 2 tab, Route: PO, Drug form: 04/06/2013 04/10/2013 Discontinued TAB, Daily, Dosing Weight 101.2, kg, Start date: 04/06/13 9:00:00, Duration: 30 day, Stop date: 05/05/13 9:00:00(Same as: Prinivil, Zestril) Navane 5 mg, 1 cap, Route: PO, Drug form: 04/07/2013 04/10/2013 Discontinued CAP, BID, Dosing Weight 101.2, kg, Start date: 04/07/13 9:00:00, Duration: 30 day, Stop date: 05/06/13 17:00:00(Same As: Navane) Robitussin 100 mg/5 200 mg, 10 mL, Route: PO, Drug 04/04/2013 04/10/2013 Discontinued mL oral liquid form: SYRP, Q4H, Dosing Weight 101.2, kg, PRN Cough, Start date: 04/04/13 14:37:00, Duration: 30 day, Stop date: 05/04/13 14:36:00(Same as: Robitussin) ALPRAZOLam 1 mg, 1 tab, Route: PO, Drug form: 04/05/2013 04/06/2013 Discontinued TAB, BID, Dosing Weight 101.2, kg, PRN as needed for anxiety, Start date: 04/05/13 9:51:00, Duration: 30 day, Stop date: 05/05/13 9:50:00With food or milk(Same as: Xanax) ZyPREXA Zydis 5 mg, 1 tab, Route: PO, Drug form: 04/06/2013 04/10/2013 Discontinued TABDIS, Bedtime, Start date: 04/06/13 21:00:00, Duration: 30 day, Stop date: 05/05/13 21:00:00(Same as: ZyPREXA Zydis ODT-Oral Disintegrating Tablet) Immunizations Vaccine Date Status influenza virus vaccine, inactivated 12/25/2012 Auth (Verified) Vital Signs Most recent to oldest [Reference Range]: 1 2 3 Height 172.72 cm (04/03/2013 18:03:00) 180.34 cm (04/03/2013 05:32:00) Current Weight 96.903 kg (04/10/2013 05:01:00) 98.002 kg (04/05/2013 06:00:00) 104.007 kg (04/04/2013 04:00:00) Temperature Oral [96.4-99.1 DegF] 97.8 DegF (04/10/2013 11:00:00) 97.4 DegF (04/10/2013 08:11:00) 98.3 DegF (04/10/2013 05:01:00) Systolic Blood Pressure [90-140 mmHg] 117 mmHg (04/10/2013 11:00:00) 108 mmHg (04/10/2013 09:01:00) 92 mmHg (04/10/2013 08:11:00) Diastolic Blood Pressure [60-90 mmHg] 81 mmHg (04/10/2013 11:00:00) 74 mmHg (04/10/2013 09:01:00) 60 mmHg (04/10/2013 08:11:00) Respiratory Rate [14-20 BRMIN] 20 BRMIN (04/10/2013 11:00:00) 20 BRMIN (04/10/2013 08:11:00) 20 BRMIN (04/10/2013 05:01:00) Peripheral Pulse Rate [60-100 bpm] 72 bpm (04/10/2013 11:00:00) 69 bpm (04/10/2013 08:11:00) 76 bpm (04/10/2013 05:01:00) Weight 98.295 kg (04/09/2013 05:15:00) 99.545 kg (04/08/2013 05:43:00) 101.2 kg (04/03/2013 18:03:00) Results BACTERIAL - SEROLOGY Most recent to oldest [Reference Range]: 1 2 3 MRSA by PCR Negative 1 (04/03/2013 18:50:51) 1Interpretive Data: Interpretive Data: The [facility] LightCycler MRSA [...] reaction (PCR) assay detects a proprietary sequence indicat lisbeth of the integration of the SCCmec cassette into the Staphylococcus aureus chr omosome, indicating the presence of MRSA DNA. The assay utilizes FDA cleared IV D reagents. Performance characteristics have been verified by the [facility] within the [facility]. The [facility] is authorized under the Clinical Laboratory Improvement Amendment of 1 988 (CLIA-88) to perform high complexity testing. BEDSIDE GLUCOSE TESTING Most recent to [Reference Range]: 1 2 3 Glucose POC [70-99 mg/dL] 175 mg/dL 2 *HI* (04/10/2013 10:11:00) 141 mg/dL 3 *HI* (04/10/2013 07:52:00) 146 mg/dL 4 *HI* (04/09/2013 20:45:00) Gluc POC Comment 1 Notified RN/MD *NA* (04/09/2013 20:45:00) Notified RN/MD *NA* (04/09/2013 17:37:00) Notified RN/MD *NA* (04/09/2013 11:51:00) 2Interpretive Data: Upper Reportable Limit: 200 mg/dL. 3Interpretive Data: Upper Reportable Limit: 200 mg/dL. 4Interpretive Data: Upper Reportable Limit: 200 mg/dL. URINALYSIS Most recent to oldest [Reference Range]: 1 2 3 UA Turbidity [Clear] Clear (04/04/2013 12:50:32) Clear (04/03/2013 07:25:00) UA Color [Yellow] Yellow *NA* (04/04/2013 12:50:32) Yellow *NA* (04/03/2013 07:25:00) UA pH [5.0-8.0] 7.5 (04/04/2013 12:50:32) UA pH [5.0-8.0] 6.0 (04/03/2013 07:25:00) UA Spec Grav [<=1.030] 1.008 (04/04/2013 12:50:32) >=1.030 *ABN* (04/03/2013 07:25:00) UA Glucose [Negative mg/dL] Negative mg/dL *NA* (04/04/2013 12:50:32) UA Glucose [Negative] Negative (04/03/2013 07:25:00) UA Blood [Negative] Negative (04/04/2013 12:50:32) Negative (04/03/2013 07:25:00) UA Ketones [Negative mg/dL] Negative mg/dL *NA* (04/04/2013 12:50:32) UA Ketones [Negative] Negative *NA* (04/03/2013 07:25:00) UA Protein [Negative mg/dL] 10 mg/dL *ABN* (04/04/2013 12:50:32) 100 mg/dL *ABN* (04/03/2013 07:25:00) UA Urobilinogen [0.1-1.0 mg/dL] 2.0 mg/dL *HI* (04/04/2013 12:50:32) UA Urobilinogen [0.1-1.0 EU/dL] 1.0 EU/dL (04/03/2013 07:25:00) UA Bili [Negative] Negative *NA* (04/04/2013 12:50:32) Moderate *ABN* (04/03/2013 07:25:00) UA Leuk Est [Negative] Negative (04/04/2013 12:50:32) Negative (04/03/2013 07:25:00) UA Nitrite [Negative] Negative (04/04/2013 12:50:32) Negative (04/03/2013 07:25:00) UA WBC [0-5 /HPF] <1 /HPF (04/04/2013 12:50:32) UA WBC [None Seen /HPF] 0-2 /HPF (04/03/2013 07:25:00) UA RBC [0-2 /HPF] 8 /HPF *HI* (04/04/2013 12:50:32) 0-2 /HPF (04/03/2013 07:25:00) UA Bacteria [None Seen /HPF] Occasional /HPF (04/03/2013 07:25:00) UA Sq Epi [Few /LPF] Occasional /LPF *NA* (04/04/2013 12:50:32) Occasional /LPF (04/03/2013 07:25:00) UA Mucus [None Seen /LPF] Few /LPF *NA* (04/04/2013 12:50:32) Moderate /LPF *ABN* (04/03/2013 07:25:00) Micro? Performed *NA* (04/04/2013 12:50:32) Performed (04/03/2013 07:25:00) CHEMISTRY Most recent to oldest [Reference Range]: 1 2 3 Sodium Lvl [135-145 mEq/L] 142 mEq/L (04/08/2013 05:00:00) 138 mEq/L (04/07/2013 04:30:00) 140 mEq/L (04/06/2013 05:10:00) Potassium Lvl [3.5-5.1 mEq/L] 3.7 mEq/L (04/08/2013 05:00:00) 4.2 mEq/L (04/07/2013 04:30:00) 3.8 mEq/L (04/06/2013 05:10:00) Chloride Lvl [95-109 mEq/L] 104 mEq/L (04/08/2013 05:00:00) 99 mEq/L (04/07/2013 04:30:00) 100 mEq/L (04/06/2013 05:10:00) CO2 [24-32 mEq/L] 30 mEq/L (04/08/2013 05:00:00) 28 mEq/L (04/07/2013 04:30:00) 29 mEq/L (04/06/2013 05:10:00) AGAP [10.0-20.0 mEq/L] 11.7 mEq/L (04/08/2013 05:00:00) 15.2 mEq/L (04/07/2013 04:30:00) 14.8 mEq/L (04/06/2013 05:10:00) Creatinine Lvl [0.5-1.4 mg/dL] 1.2 mg/dL (04/08/2013 05:00:00) 1.4 mg/dL (04/07/2013 04:30:00) 1.1 mg/dL (04/06/2013 05:10:00) eGFR 73 mL/min/1.73m2 5 *NA* (04/08/2013 05:00:00) 59 mL/min/1.73m2 6 *NA* (04/07/2013 04:30:00) 79 mL/min/1.73m2 7 *NA* (04/06/2013 05:10:00) BUN [7-22 mg/dL] 21 mg/dL (04/08/2013 05:00:00) 25 mg/dL *HI* (04/07/2013 04:30:00) 19 mg/dL (04/06/2013 05:10:00) B/C Ratio [6-25] 16 (04/03/2013 06:57:00) Glucose Lvl [70-99 mg/dL] 115 mg/dL 8 *HI* (04/08/2013 05:00:00) 133 mg/dL 9 *HI* (04/07/2013 04:30:00) 71 mg/dL 10 (04/06/2013 05:10:00) Total Protein [6.4-8.4 g/dL] 5.9 g/dL *LOW* (04/08/2013 05:00:00) 6.1 g/dL *LOW* (04/07/2013 04:30:00) 6.0 g/dL *LOW* (04/06/2013 05:10:00) Albumin Lvl [3.5-5.0 g/dL] 3.2 g/dL *LOW* (04/08/2013 05:00:00) 3.4 g/dL *LOW* (04/07/2013 04:30:00) 3.4 g/dL *LOW* (04/06/2013 05:10:00) Globulin [2.0-4.0 g/dL] 2.7 g/dL (04/08/2013 05:00:00) 2.7 g/dL (04/07/2013 04:30:00) 2.6 g/dL (04/06/2013 05:10:00) A/G Ratio [0.7-1.6] 1.2 (04/08/2013 05:00:00) 1.3 (04/07/2013 04:30:00) 1.3 (04/06/2013 05:10:00) Calcium Lvl [8.5-10.5 mg/dL] 7.8 mg/dL *LOW* (04/08/2013 05:00:00) 8.3 mg/dL *LOW* (04/07/2013 04:30:00) 8.6 mg/dL (04/06/2013 05:10:00) Phosphorus [2.5-4.5 mg/dL] 3.5 mg/dL (04/08/2013 05:00:00) 4.0 mg/dL (04/07/2013 04:30:00) 4.8 mg/dL *HI* (04/06/2013 05:10:00) Magnesium Lvl [1.8-2.4 mg/dL] 2.0 mg/dL (04/08/2013 05:00:00) 1.7 mg/dL *LOW* (04/07/2013 04:30:00) 1.9 mg/dL (04/06/2013 05:10:00) ALT [0-65 unit/L] 27 unit/L (04/08/2013 05:00:00) 30 unit/L (04/07/2013 04:30:00) 31 unit/L (04/06/2013 05:10:00) AST [0-37 unit/L] 23 unit/L (04/08/2013 05:00:00) 32 unit/L (04/07/2013 04:30:00) 38 unit/L *HI* (04/06/2013 05:10:00) Alk Phos [39-136 unit/L] 140 unit/L *HI* (04/08/2013 05:00:00) 149 unit/L *HI* (04/07/2013 04:30:00) 148 unit/L *HI* (04/06/2013 05:10:00) Bili Total [0.2-1.3 mg/dL] 1.4 mg/dL *HI* (04/08/2013 05:00:00) 2.5 mg/dL *HI* (04/07/2013 04:30:00) 2.5 mg/dL *HI* (04/06/2013 05:10:00) Bili Direct [0.0-0.3 mg/dL] 0.7 mg/dL *HI* (04/08/2013 05:00:00) 1.3 mg/dL *HI* (04/07/2013 04:30:00) 1.3 mg/dL *HI* (04/06/2013 05:10:00) Bili Indirect [0.0-1.0 mg/dL] 0.7 mg/dL (04/08/2013 05:00:00) 1.2 mg/dL *HI* (04/07/2013 04:30:00) 1.2 mg/dL *HI* (04/06/2013 05:10:00) Total CK [12-191 unit/L] 396 unit/L *HI* (04/04/2013 04:15:00) 491 unit/L *HI* (04/03/2013 18:50:00) 447 unit/L *HI* (04/03/2013 13:10:00) CK MB [0.5-3.6 ng/mL] 1.4 ng/mL (04/04/2013 04:15:00) 1.6 ng/mL (04/03/2013 18:50:00) 1.6 ng/mL (04/03/2013 13:10:00) CK MB Index [0.0-2.5] 0.4 (04/04/2013 04:15:00) 0.3 (04/03/2013 18:50:00) 0.4 (04/03/2013 13:10:00) Troponin-I [0.00-0.40 ng/mL] 0.05 ng/mL (04/04/2013 04:15:00) 0.04 ng/mL (04/03/2013 18:50:00) 0.04 ng/mL (04/03/2013 13:10:00) BNP [<=100 pg/mL] 2033 pg/mL 11 *HI* (04/03/2013 06:57:00) CHD Risk [4.00-7.30] 6.69 (04/04/2013 04:15:00) 6.40 (04/03/2013 13:10:00) Chol [<=199 mg/dL] 87 mg/dL (04/04/2013 04:15:00) 96 mg/dL (04/03/2013 13:10:00) Trig [<=149 mg/dL] 70 mg/dL (04/04/2013:15:00) 76 mg/dL (04/03/2013 13:10:00) HDL [>=61 mg/dL] 13 mg/dL *LOW* (04/04/2013:15:00) 15 mg/dL *LOW* (04/03/2013 13:10:00) LDL (Calculated) [<=99 mg/dL] 60 mg/dL (04/04/2013 04:15:00) 66 mg/dL (04/03/2013 13:10:00) Hgb A1C [<=5.6 %] 8.6 % *HI* (04/03/2013 18:50:00) TSH [0.360-3.740 uIU/mL] 2.300 uIU/mL (04/04/2013 04:15:00) Ca Ion WB [1.05-1.25 mMol/L] 1.00 mMol/L *LOW* (04/08/2013 05:00:00) 1.01 mMol/L *LOW* (04/07/2013 04:30:00) 1.03 mMol/L *LOW* (04/06/2013 05:10:00) Ca Norm WB [1.05-1.25 mMol/L] 1.02 mMol/L *LOW* (04/08/2013 05:00:00) 1.00 mMol/L *LOW* (04/07/2013 04:30:00) 1.00 mMol/L *LOW* (04/06/2013 05:10:00) U Amph Scr [Negative] Negative *NA* (04/03/2013 07:25:00) U Brigette Scr [Negative] Negative *NA* (04/03/2013 07:25:00) U Benzodia Scr [Negative] Positive *ABN* (04/03/2013 07:25:00) U Cocaine Scr [Negative] Negative *NA* (04/03/2013 07:25:00) U Opiate Scr [Negative] Negative *NA* (04/03/2013 07:25:00) U Phencyc Scr [Negative] Negative *NA* (04/03/2013 07:25:00) U Cannab Scr [Negative] Negative *NA* (04/03/2013 07:25:00) UDS Note See Note 12 (04/03/2013 07:25:00) 5Result Comment: The eGFR is calculated using [...] values reflect the clinical guidelines of the [place] [employer]. 9Interpretive Data: Adult reference range values reflect the clinical guidelines of the [place] [employer]. 10Interpretive Data: Adult reference range values reflect the clinical guidelines of the [place] [employer]. 11Interpretive Data: Elevated results are in line with increasing severity of congestive heart failure. Minor elevations between 100 and 300 may be seen with Myocardial Ischemia, Sodium retaining drugs, and compensated/treated heart failure. 12Interpretive Data: Drugs reported as positive have not [...] Methadone 300 ng/mL Urine alcohol 20 mg/dL HEMATOLOGY Most recent to oldest [Reference Range]: 1 2 3 WBC [3.7-10.4 K/CMM] 6.6 K/CMM (04/08/2013 05:00:00) 6.6 K/CMM (04/07/2013 08:00:34) 7.7 K/CMM (04/06/2013 05:10:00) RBC [4.70-6.10 M/CMM] 5.29 M/CMM (04/08/2013 05:00:00) 5.02 M/CMM (04/07/2013 08:00:34) 5.40 M/CMM (04/06/2013 05:10:00) Hgb [14.0-18.0 g/dL] 13.6 g/dL *LOW* (04/08/2013 05:00:00) 13.0 g/dL *LOW* (04/07/2013 08:00:34) 13.7 g/dL *LOW* (04/06/2013 05:10:00) Hct [42.0-54.0 %] 42.3 % (04/08/2013 05:00:00) 39.6 % *LOW* (04/07/2013 08:00:34) 43.3 % (04/06/2013 05:10:00) MCV [80.0-94.0 fL] 79.9 fL *LOW* (04/08/2013 05:00:00) 78.8 fL *LOW* (04/07/2013 08:00:34) 80.1 fL (04/06/2013 05:10:00) MCH [27.0-31.0 pg] 25.7 pg *LOW* (04/08/2013 05:00:00) 25.9 pg *LOW* (04/07/2013 08:00:34) 25.4 pg *LOW* (04/06/2013 05:10:00) MCHC [32.0-36.0 g/dL] 32.1 g/dL (04/08/2013 05:00:00) 32.9 g/dL (04/07/2013 08:00:34) 31.7 g/dL *LOW* (04/06/2013 05:10:00) RDW [11.5-14.5 %] 18.3 % *HI* (04/08/2013 05:00:00) 19.0 % *HI* (04/07/2013 08:00:34) 19.2 % *HI* (04/06/2013 05:10:00) Platelet [133-450 K/CMM] 221 K/CMM (04/08/2013 05:00:00) 242 K/CMM (04/07/2013 08:00:34) 254 K/CMM (04/06/2013 05:10:00) MPV [7.4-10.4 fL] 9.1 fL (04/08/2013 05:00:00) 9.3 fL (04/07/2013 08:00:34) 9.3 fL (04/06/2013 05:10:00) Segs [45.0-75.0 %] 75.1 % *HI* (04/05/2013 05:30:58) 74.8 % (04/04/2013 04:15:00) 79.9 % *HI* (04/03/2013 06:25:00) Lymphocytes [20.0-40.0 %] 12.7 % *LOW* (04/05/2013 05:30:58) 13.8 % *LOW* (04/04/2013 04:15:00) 9.7 % *LOW* (04/03/2013 06:25:00) Monocytes [2.0-12.0 %] 10.6 % (04/05/2013 05:30:58) 10.3 % (04/04/2013 04:15:00) 9.0 % (04/03/2013 06:25:00) Eosinophils [0.0-4.0 %] 1.3 % (04/05/2013 05:30:58) 0.7 % (04/04/2013 04:15:00) 0.6 % (04/03/2013 06:25:00) Basophils [0.0-1.0 %] 0.3 % (04/05/2013 05:30:58) 0.4 % (04/04/2013 04:15:00) 0.8 % (04/03/2013 06:25:00) Segs-Bands # [1.5-8.1 K/CMM] 6.2 K/CMM (04/05/2013 05:30:58) 7.0 K/CMM (04/04/2013 04:15:00) 7.4 K/CMM (04/03/2013 06:25:00) Lymphocytes # [1.0-5.5 K/CMM] 1.0 K/CMM (04/05/2013 05:30:58) 1.3 K/CMM (04/04/2013 04:15:00) 0.9 K/CMM *LOW* (04/03/2013 06:25:00) Monocytes # [0.0-0.8 K/CMM] 0.9 K/CMM *HI* (04/05/2013 05:30:58) 1.0 K/CMM *HI* (04/04/2013 04:15:00) 0.8 K/CMM (04/03/2013 06:25:00) Eosinophils # [0.0-0.5 K/CMM] 0.1 K/CMM (04/05/2013 05:30:58) 0.1 K/CMM (04/04/2013 04:15:00) 0.1 K/CMM (04/03/2013 06:25:00) Basophils # [0.0-0.2 K/CMM] 0.0 K/CMM (04/05/2013 05:30:58) 0.0 K/CMM (04/04/2013 04:15:00) 0.1 K/CMM (04/03/2013 06:25:00) Anisocyte [None Seen] 1+ *ABN* (04/05/2013 05:30:58) Target Cell [None Seen] Slight *ABN* (04/05/2013 05:30:58) Plt Morph Normal (04/05/2013 05:30:58) PT [12.0-14.7 seconds] 17.0 seconds *HI* (04/08/2013 05:00:00) 19.3 seconds *HI* (04/07/2013 04:30:00) 20.3 seconds *HI* (04/06/2013 05:10:00) INR [0.85-1.17] 1.40 13 *HI* (04/08/2013 05:00:00) 1.65 14 *HI* (04/07/2013 04:30:00) 1.77 15 *HI* (04/06/2013 05:10:00) F2 Mutation PCR Negative (04/03/2013 18:50:00) F2 Mut Interp FACTOR II PT: Negative INTERPRETATION: Molecular analysis for the Factor II (Prothrombin) [id number]>A mutation was negative. Other causes of elevated [...] The assay uses the FDA-cleared Sae Factor II (Prothrombin) [id number] IVD (Polymerase chain reaction/FRET detection), Sae DebtFolio LC Instrument as well as Sae SzlCycler 1.2 Instrument. A 165-bp fragment of Factor II gene(FII) containing the Factor II [id number] sequence is amplified in the assay. The assay is designed to detect the [id number] mutation only. Other causes of elevated prothrombin levels and hereditary forms of venous thrombosis are not ruled out. However, the melting curve analysis may implicate the presence of a possible rare mutation at position 78106 (Further testing will be recommended in the report). A minimum detection level is 198 copies of Factor II per reaction. The level of agreement between the Factor II(Prothrombin) [id number] Kit and sequence analysis was 98.9%. The test result must be interpreted along with the patient's clinical history and other pertinent laboratory data. This assay has been validated by [facility]. *NA* (04/03/2013 18:50:00) F5 Leiden PCR Negative (04/03/2013 18:50:00) F5 Leiden Intrp FACTOR V LEIDEN: Negative [...] Factor V Leiden IVD(Poymerase chain reaction/FRET detection), KIDOZ LC Instrument as well as Sae SzlCycler 1.2 Instrument. A 222-bp fragment of Factor [...] laboratory data.This assay has been validated by [facility]. *NA* (04/03/2013 18:50:00) AT III Func [77-140 %] 65 % *LOW* (04/03/2013 18:50:00) PTT [22.9-35.8 seconds] 32.6 seconds 16 (04/03/2013 06:25:19) dRVV [<=1.20] 0.99 (04/03/2013 18:50:00) Hex Phos N [Negative] Negative (04/03/2013 18:50:00) Lup Interp Negative for lupus anticoagulant by DRVV screen and hexagonal phospholipid neutralization test. If there is a strong clinical suspicion of lupus anticoagulant, additional testing, to include repeat studies at a clinically appropriate interval and anticardiolipin antibody assays, is recommended. Interpretation performed at [facility]. *NA* (04/03/2013 18:50:00) Protein C Func [72-147 %] 59 % *LOW* (04/03/2013 18:50:00) Protein S Func [54-137 %] 94 % (04/03/2013 18:50:00) 13Interpretive Data: RECOMMENDED RANGES FOR PROTIME INR: 2.0-3.0 for most medical and surgical thromboembolic states. 2.5-3.5 for artificial heart valves and recurrent embolism. INR SHOULD BE USED ONLY FOR PATIENTS ON STABLE ANTICOAGULANT THERAPY. 14Interpretive Data: RECOMMENDED RANGES FOR PROTIME INR: 2.0-3.0 for most medical and surgical thromboembolic states. 2.5-3.5 for artificial heart valves and recurrent embolism. INR SHOULD BE USED ONLY FOR PATIENTS ON STABLE ANTICOAGULANT THERAPY. 15Interpretive Data: RECOMMENDED RANGES FOR PROTIME INR: 2.0-3.0 for most medical and surgical thromboembolic states. 2.5-3.5 for artificial heart valves and recurrent embolism. INR SHOULD BE USED ONLY FOR PATIENTS ON STABLE ANTICOAGULANT THERAPY. 16Interpretive Data: Heparin Therapeutic Range: 57 - 92 Seconds IMMUNOLOGY Most recent to oldest [Reference Range]: 1 2 3 SUSAN [Negative] Negative (04/03/2013 18:50:00) Cardiolipin IgA 1 IgA Phospholipid Units 17 *NA* (04/03/2013 18:50:00) Cardiolipin IgG 16 IgG Phospholipid Units 18 *NA* (04/03/2013 18:50:00) Cardiolipin IgM 4.0 IgM Phospholipid Units 19 *NA* (04/03/2013 18:50:00) Beta2-Glycoprotein IgM [< OR=20 SMU] <9 SMU 20 *NA* (04/03/2013 18:50:00) Beta2-Glycoprotein IgG [< OR=20 SGU] <9 SGU 21 *NA* (04/03/2013 18:50:00) Beta2-Glycoprotein IgA [< OR=20 TINY] <9 TINY 22 *NA* (04/03/2013 18:50:00) Homocyst Tot [3.7-13.9 uMol/L] 11.0 uMol/L (04/03/2013 18:50:00) 17Interpretive Data: Reference Ranges for IgA: 0-11 APL Negative 12-20 APL Inconclusive 21-80 APL Low-Med Positive > 80 APL Strong Positive 18Interpretive Data: Reference Ranges for Ig-14 GPL Negative 15-20 GPL Inconclusive 21-80 GPL Low-Med Positive > 80 GPL Strong Positive 19Interpretive Data: Reference Ranges for IgM: 0-12.4 MPL Negative 12.5-20 MPL Inconclusive 21-80 MPL Low-Med Positive > 80 MPL Strong Positive 20Result Comment: Test Performed at: [facility] [address] [id number] Dallin Canales MD, PhD 21Result Comment: Test Performed at: [facility] [address] [id number] Dallin Canales MD, PhD 22Result Comment: Clinical Significance: The Antiphospholipid Antibody Syndrome [...] [employer] 2006: 4; 295. Test Performed at: [facility] [address] [id number] Dallin Canales MD, PhD
--- OUTSIDE RECORDS SUMMARY | 2018-12-19 01:26 | XMS REPORT | CCD ---
Author Author Auto Generated Organization 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 Name Role Phone Marcial Cooper CP Allergies, Adverse Reactions, Alerts Substance Reaction [...] Medication Instructions Start Date End Date Status ranitidine 150 mg 150 mg=1 tab, PO, BID, # 60 tab, 0 04/25/2013 Ordered oral tablet Refill(s) Ultram 50 mg oral 50 mg=1 tab, PO, Q4H, pain, # 20 04/25/2013 04/25/2013 Discontinued tablet tab, 0 Refill(s) Zofran ODT 4 mg oral 4 mg=1 tab, PO, TID, as needed for 04/25/2013 Ordered tablet, nausea/vomiting, Dissolve tab under disintegrating tongue, # 10 tab, 0 Refill(s) Dissolve tab under tongue Sodium Chloride 0.9% 250 mL, Rate: 1,000 ml/hr, Infuse 04/25/2013 04/25/2013 Completed (Bolus) IV 250 mL over: 15 minutes, Route: IV, Dosing Weight 111.364 kg, Total Volume: 250, Priority: STAT, Start date: 04/25/13 9:23:00, Duration: 1 doses or times, Stop date: 04/25/13 9:37:00 Saline Flush 0.9% 5 mL, Route: IVP, Drug Form: INJ, 04/25/2013 04/25/2013 Discontinued Dosing Weight 111.364, kg, PRN, PRN Line Flush, Start date: 04/25/13 9:23:00, Duration: 24 hr, Stop date: 04/26/13 9:22:00(Same as: BD Posiflush) pantoprazole 40 mg, Route: IVP, Drug form: INJ, 04/25/2013 04/25/2013 Completed ONCE, Dosing Weight 111.364, kg, For IV push reconstitute with 10 ml 0.9% sodium chloride and push over at least 3 minutes, Priority: STAT, Start date: 04/25/13 9:23:00, Stop date: 04/25/13 9:23:00For IV push reconstitute with 10 ml 0.9% sodium chloride and push over 2 minutes. (Same as: Protonix) ondansetron 4 mg, 2 mL, Route: IVP, Drug form: 04/25/2013 04/25/2013 Completed INJ, ONCE, Dosing Weight 111.364, kg, Priority: STAT, Start date: 04/25/13 9:23:00, Stop date: 04/25/13 9:23:00(Same as: Zofran) morphine Sulfate 2 mg, 1 mL, Route: IVP, Drug form: 04/25/2013 04/25/2013 Completed INJ, ONCE, Dosing Weight 111.364, kg, Priority: STAT, Start date: 04/25/13 10:45:00, Stop date: 04/25/13 10:45:00(Same as:MORPhine Sulfate) influenza virus 0.5 ml, Route: IM, Drug Form: SUSP, 12/25/2012 12/25/2012 Completed vaccine, inactivated Start date: 12/25/12 9:00:00, Stop date: 12/25/12 9:00:00 Immunizations Vaccine Date Status influenza virus vaccine, inactivated 12/25/2012 Auth (Verified) Vital Signs Most recent to oldest [Reference Range]: 1 2 3 Height 170.18 cm (04/25/2013 09:05:00) Temperature Oral [96.4-99.1 DegF] 98.2 DegF (04/25/2013 15:07:00) 97.9 DegF (04/25/2013 14:43:00) 98.9 DegF (04/25/2013 09:05:00) Systolic Blood Pressure [90-140 mmHg] 156 mmHg *HI* (04/25/2013 15:07:00) 127 mmHg (04/25/2013 14:43:00) 125 mmHg (04/25/2013 13:21:00) Diastolic Blood Pressure [60-90 mmHg] 96 mmHg *HI* (04/25/2013 15:07:00) 94 mmHg *HI* (04/25/2013 14:43:00) 98 mmHg *HI* (04/25/2013 13:21:00) Respiratory Rate [14-20 BRMIN] 20 BRMIN (04/25/2013 15:07:00) 20 BRMIN (04/25/2013 14:43:00) 18 BRMIN (04/25/2013 13:21:00) Peripheral Pulse Rate [60-100 bpm] 97 bpm (04/25/2013 15:07:00) 88 bpm (04/25/2013 14:43:00) 75 bpm (04/25/2013 13:21:00) Weight 111.364 kg (04/25/2013 09:05:00) Results URINALYSIS Most recent to oldest [Reference Range]: 1 UA Turbidity [Clear] Clear (04/25/2013 10:35:18) UA Color [Yellow] Yellow *NA* (04/25/2013 10:35:18) UA pH [5.0-8.0] 6.0 (04/25/2013 10:35:18) UA Spec Grav [<=1.030] 1.020 (04/25/2013 10:35:18) UA Glucose [Negative] Negative (04/25/2013 10:35:18) UA Blood [Negative] Negative (04/25/2013 10:35:18) UA Ketones [Negative] Negative *NA* (04/25/2013 10:35:18) UA Protein [Negative mg/dL] 30 mg/dL *ABN* (04/25/2013 10:35:18) UA Urobilinogen [0.1-1.0 EU/dL] 0.2 EU/dL (04/25/2013 10:35:18) UA Bili [Negative] Negative *NA* (04/25/2013 10:35:18) UA Leuk Est [Negative] Negative (04/25/2013 10:35:18) UA Nitrite [Negative] Negative (04/25/2013 10:35:18) UA Sq Epi [Few /LPF] Rare /LPF (04/25/2013 10:35:18) UA Hyal Cast [0-2] 0-2 (04/25/2013 10:35:18) CHEMISTRY Most recent to oldest [Reference Range]: 1 Sodium Lvl [135-145 mEq/L] 136 mEq/L (04/25/2013 09:30:00) Potassium Lvl [3.5-5.1 mEq/L] 5.5 mEq/L *HI* (04/25/2013 09:30:00) Chloride Lvl [95-109 mEq/L] 100 mEq/L (04/25/2013 09:30:00) CO2 [24-32 mEq/L] 28 mEq/L (04/25/2013 09:30:00) AGAP [10.0-20.0 mEq/L] 13.5 mEq/L (04/25/2013 09:30:00) Creatinine Lvl [0.5-1.4 mg/dL] 0.7 mg/dL (04/25/2013 09:30:00) eGFR 112 mL/min/1.73m2 1 *NA* (04/25/2013 09:30:00) BUN [7-22 mg/dL] 15 mg/dL (04/25/2013 09:30:00) B/C Ratio [6-25] 21 (04/25/2013 09:30:00) Glucose Lvl [70-99 mg/dL] 214 mg/dL 2 *HI* (04/25/2013 09:30:00) Total Protein [6.4-8.4 g/dL] 7.2 g/dL (04/25/2013 09:30:00) Albumin Lvl [3.5-5.0 g/dL] 3.7 g/dL (04/25/2013 09:30:00) Globulin [2.0-4.0 g/dL] 3.5 g/dL (04/25/2013 09:30:00) A/G Ratio [0.7-1.6] 1.1 (04/25/2013 09:30:00) Calcium Lvl [8.5-10.5 mg/dL] 8.5 mg/dL (04/25/2013::00) Magnesium Lvl [1.8-2.4 mg/dL] 1.8 mg/dL (04/25/2013:00) ALT [0-65 unit/L] 33 unit/L (04/25/2013:00) AST [0-37 unit/L] 40 unit/L *HI* (04/25/2013) Alk Phos [39-136 unit/L] 151 unit/L *HI* (04/25/201300) Bili Total [0.2-1.3 mg/dL] 1.1 mg/dL (04/25/2013:00) Lipase Lvl [73-393 unit/L] 129 unit/L (04/25/201300) Total CK [12-191 unit/L] 169 unit/L (04/25/2013:00) CK MB [0.5-3.6 ng/mL] 1.1 ng/mL (04/25/201300) CK MB Index [0.0-2.5] 0.7 (04/25/2013:00) Troponin-I [0.00-0.40 ng/mL] 0.02 ng/mL (04/25/2013:00) proBNP [0-125 pg/mL] 6468 pg/mL *HI* (04/25/2013:00) 1Result Comment: The eGFR is calculated using [...] values reflect the clinical guidelines of the [place] [employer]. HEMATOLOGY Most recent to oldest [Reference Range]: 1 WBC [3.7-10.4 K/CMM] 9.8 K/CMM (04/25/2013 09:30:00) RBC [4.70-6.10 M/CMM] 5.48 M/CMM (04/25/2013:30:00) Hgb [14.0-18.0 g/dL] 14.4 g/dL (04/25/2013:30:00) Hct [42.0-54.0 %] 43.8 % (04/25/2013::00) MCV [80.0-94.0 fL] 79.8 fL *LOW* (04/25/2013::00) MCH [27.0-31.0 pg] 26.4 pg *LOW* (04/25/2013::00) MCHC [32.0-36.0 g/dL] 33.0 g/dL (04/25/2013:30:00) RDW [11.5-14.5 %] 19.1 % *HI* (04/25/2013::00) Platelet [133-450 K/CMM] 234 K/CMM (04/25/2013::00) MPV [7.4-10.4 fL] 10.0 fL (04/25/2013:30:00) Segs [45.0-75.0 %] 82.5 % *HI* (04/25/2013::00) Lymphocytes [20.0-40.0 %] 11.0 % *LOW* (04/25/2013:00) Monocytes [2.0-12.0 %] 5.5 % (04/25/2013::00) Eosinophils [0.0-4.0 %] 0.9 % (04/25/2013::00) Basophils [0.0-1.0 %] 0.1 % (04/25/2013::00) Segs-Bands # [1.5-8.1 K/CMM] 8.1 K/CMM (04/25/2013 09:30:00) Lymphocytes # [1.0-5.5 K/CMM] 1.1 K/CMM (04/25/2013 09:30:00) Monocytes # [0.0-0.8 K/CMM] 0.5 K/CMM (04/25/2013 09:30:00) Eosinophils # [0.0-0.5 K/CMM] 0.1 K/CMM (04/25/2013 09:30:00) Basophils # [0.0-0.2 K/CMM] 0.0 K/CMM (04/25/2013 09:30:00) Anisocyte [None Seen] 1+ *ABN* (04/25/2013 09:30:00) PT [12.0-14.7 seconds] 15.0 seconds *HI* (04/25/2013 09:30:00) INR [0.85-1.17] 1.19 3 *HI* (04/25/2013 09:30:00) PTT [22.9-35.8 seconds] 27.5 seconds 4 (04/25/2013 09:30:00) 3Interpretive Data: RECOMMENDED RANGES FOR PROTIME INR: 2.0-3.0 for most medical and surgical thromboembolic states. 2.5-3.5 for artificial heart valves and recurrent embolism. INR SHOULD BE USED ONLY FOR PATIENTS ON STABLE ANTICOAGULANT THERAPY. 4Interpretive Data: Heparin Therapeutic Range: 57 - 92 Seconds IMMUNOLOGY Most recent to oldest [Reference Range]: 1 CDC HIV 4th GEN [Negative] Negative (04/25/2013 10:05:00)
--- OUTSIDE RECORDS SUMMARY | 2018-12-19 01:26 | XMS REPORT | CCD ---
Author Author Auto Generated Organization [facility] Address Unknown Phone Unavailable Care Team Providers Care Post Partum Nurse Name Role Phone Sudhakar Vernon CP Allergies, Adverse Reactions, Alerts Substance Reaction [...] depletion Active NIDDM Active Obese build Active Schizophrenia Active Short of breath on exertion Active Sleep apnea Active Medications Medication Instructions Start Date End Date Status ondansetron 4 mg, 2 mL, Route: IVP, Drug form: 05/07/2013 05/07/2013 Completed INJ, ONCE, Dosing Weight 104.545, kg, Priority: STAT, Start date: 05/07/13 9:53:00, Stop date: 05/07/13 9:53:00(Same as: Zofran) aspirin 325 mg 325 mg, 1 tab, Route: PO, Drug 05/07/2013 05/07/2013 Completed tablet form: TAB, ONCE, Dosing Weight 104.545, kg, Priority: STAT, Start date: 05/07/13 9:53:00, Stop date: 05/07/13 9:53:00Take with food. Sodium Chloride 0.9% 500 mL, Rate: 500 ml/hr, Infuse 05/07/2013 05/07/2013 Completed (Bolus) IV 500 mL over: 1 hr, Route: IV, Dosing Weight 104.545 kg, Total Volume: 500, Priority: STAT, Start date: 05/07/13 9:53:00, Duration: 1 doses or times, Stop date: 05/07/13 10:52:00 Saline Flush 0.9% 5 ml, Route: IVP, Drug Form: INJ, 05/07/2013 05/07/2013 Discontinued Dosing Weight 104.545, kg, PRN, PRN Line Flush, Start date: 05/07/13 9:53:00, Duration: 30 day, Stop date: 06/06/13 10:52:00(Same as: BD Posiflush) Kayexalate 30 gm, 120 mL, Route: PO, Drug 05/07/2013 05/07/2013 Completed form: SUSP, ONCE, Dosing Weight 104.545, kg, Priority: STAT, Start date: 05/07/13 10:46:00, Stop date: 05/07/13 10:46:00(sodium polystyrene sulfonate 15 gm/60 ml DICK) Shake well before use. (Same as: Kayexalate, SPS) GI cocktail 30 mL, Route: PO, Drug Form: SUSP, 05/07/2013 05/07/2013 Completed Dosing Weight 104.545, kg, ONCE, STAT, Start date: 05/07/13 10:50:00, Stop date: 05/07/13 10:50:00G.I. Cocktail=antacid with simethicone 22.5 mL - lidocaine viscous 7.5 mL influenza virus 0.5 ml, Route: IM, Drug Form: SUSP, 12/25/2012 12/25/2012 Completed vaccine, inactivated Start date: 12/25/12 9:00:00, Stop date: 12/25/12 9:00:00 Maalox Advanced 30 mL, PO, QID-Before Meals, # 500 05/07/2013 Ordered Maximum Strength mL, 0 Refill(s) oral suspension omeprazole 20 mg 20 mg=1 cap, PO, Daily, # 30 cap, 0 05/07/2013 06/06/2013 Ordered oral delayed release Refill(s) capsule Zofran ODT 4 mg oral 4 mg=1 tab, PO, BID, Nausea and 05/07/2013 Ordered tablet, Vomiting, Dissolve tab under disintegrating tongue, # 10 tab, 0 Refill(s) Dissolve tab under tongue Protonix + sodium 40 mg, Route: IVP, ONCE, Dosing 05/07/2013 05/07/2013 Completed chloride 10 mL Weight 104.545, kg, Priority: STAT, Start date: 05/07/13 9:53:00, Stop date: 05/07/13 9:53:00For IV push reconstitute with 10 ml 0.9% sodium chloride and push over 2 minutes. (Same as: Protonix) Immunizations Vaccine Date Status influenza virus vaccine, inactivated 12/25/2012 Auth (Verified) Vital Signs Most recent to oldest [Reference Range]: 1 2 3 Height 177.8 cm (05/07/2013 09:35:00) Systolic Blood Pressure [90-140 mmHg] 145 mmHg *HI* (05/07/2013 12:24:00) 135 mmHg (05/07/2013:35:00) 147 mmHg *HI* (05/07/2013:35:00) Diastolic Blood Pressure [60-90 mmHg] 84 mmHg (05/07/2013 12:24:00) 88 mmHg (05/07/2013:35:00) 116 mmHg *HI* (05/07/2013:35:00) Respiratory Rate [14-20 BRMIN] 20 BRMIN (05/07/2013 12:24:00) 18 BRMIN (05/07/2013:35:00) 22 BRMIN *HI* (05/07/2013:35:00) Peripheral Pulse Rate [60-100 bpm] 87 bpm (05/07/2013 12:24:00) 91 bpm (05/07/2013:35:00) 95 bpm (05/07/2013:35:00) Weight 104.545 kg (05/07/2013 09:35:00) Results CHEMISTRY Most recent to oldest [Reference Range]: 1 Sodium Lvl [135-145 mEq/L] 138 mEq/L (05/07/2013 09:45:00) Potassium Lvl [3.5-5.1 mEq/L] 5.5 mEq/L *HI* (05/07/2013:45:00) Chloride Lvl [95-109 mEq/L] 106 mEq/L (05/07/2013:45:00) CO2 [24-32 mEq/L] 23 mEq/L *LOW* (05/07/2013:45:00) AGAP [10.0-20.0 mEq/L] 14.5 mEq/L (05/07/2013:45:00) Creatinine Lvl [0.5-1.4 mg/dL] 0.7 mg/dL (05/07/2013:45:00) eGFR 112 mL/min/1.73m2 1 *NA* (05/07/2013:45:00) BUN [7-22 mg/dL] 10 mg/dL (05/07/2013:45:00) B/C Ratio [6-25] 14 (05/07/2013:45:00) Glucose Lvl [70-99 mg/dL] 131 mg/dL 2 *HI* (05/07/2013:45:00) Total Protein [6.4-8.4 g/dL] 6.9 g/dL (05/07/201345:00) Albumin Lvl [3.5-5.0 g/dL] 3.7 g/dL (05/07/2013:45:00) Globulin [2.0-4.0 g/dL] 3.2 g/dL (05/07/2013:45:00) A/G Ratio [0.7-1.6] 1.2 (05/07/2013:45:00) Calcium Lvl [8.5-10.5 mg/dL] 8.3 mg/dL *LOW* (05/07/2013:45:00) ALT [0-65 unit/L] 22 unit/L (05/07/2013:45:00) AST [0-37 unit/L] 36 unit/L (05/07/2013:45:00) Alk Phos [39-136 unit/L] 158 unit/L *HI* (05/07/2013:45:00) Bili Total [0.2-1.3 mg/dL] 2.5 mg/dL *HI* (05/07/2013:45:00) Total CK [12-191 unit/L] 162 unit/L (05/07/2013:45:00) CK MB [0.5-3.6 ng/mL] 1.0 ng/mL (05/07/2013:45:00) CK MB Index [0.0-2.5] 0.6 (05/07/2013:45:00) Troponin-I [0.00-0.40 ng/mL] 0.02 ng/mL (05/07/2013:45:00) BNP [<=100 pg/mL] 2487 pg/mL 3 *HI* (05/07/201345:) 1Result Comment: The eGFR is calculated using [...] guidelines of the [place] [employer]. 3Interpretive Data: Elevated results are in line with increasing severity of congestive heart failure. Minor elevations between 100 and 300 may be seen with Myocardial Ischemia, Sodium retaining drugs, and compensated/treated heart failure. HEMATOLOGY Most recent to oldest [Reference Range]: 1 WBC [3.7-10.4 K/CMM] 9.4 K/CMM (05/07/201345:) RBC [4.70-6.10 M/CMM] 5.32 M/CMM (05/07/2013:) Hgb [14.0-18.0 g/dL] 14.0 g/dL (05/07/2013:) Hct [42.0-54.0 %] 43.3 % (05/07/2013:) MCV [80.0-94.0 fL] 81.4 fL (05/07/2013:) MCH [27.0-31.0 pg] 26.3 pg *LOW* (05/07/201345:) MCHC [32.0-36.0 g/dL] 32.3 g/dL (05/07/2013 09:45:00) RDW [11.5-14.5 %] 21.4 % *HI* (05/07/2013:45:00) Platelet [133-450 K/CMM] 217 K/CMM (05/07/2013 09:45:00) MPV [7.4-10.4 fL] 9.2 fL (05/07/2013:45:00) Segs [45.0-75.0 %] 79.5 % *HI* (05/07/2013:45:00) Lymphocytes [20.0-40.0 %] 11.5 % *LOW* (05/07/2013:45:00) Monocytes [2.0-12.0 %] 8.4 % (05/07/2013:45:00) Eosinophils [0.0-4.0 %] 0.4 % (05/07/2013:45:00) Basophils [0.0-1.0 %] 0.2 % (05/07/2013:45:00) Segs-Bands # [1.5-8.1 K/CMM] 7.5 K/CMM (05/07/2013:45:00) Lymphocytes # [1.0-5.5 K/CMM] 1.1 K/CMM (05/07/2013:45:00) Monocytes # [0.0-0.8 K/CMM] 0.8 K/CMM (05/07/2013:45:00) Eosinophils # [0.0-0.5 K/CMM] 0.0 K/CMM (05/07/2013:45:00) Basophils # [0.0-0.2 K/CMM] 0.0 K/CMM (05/07/2013 09:45:00)
--- OUTSIDE RECORDS SUMMARY | 2018-12-19 01:26 | XMS REPORT | CCD ---
Author Author Auto Generated Organization [facility] Address Unknown Phone Unavailable Care Team Providers Care Hand Marker Name Role Phone Charles Peña CP Allergies, Adverse Reactions, Alerts Substance Reaction [...] Instructions Start Date End Date Status aspirin 324 mg, 4 tab, Route: PO, Drug 05/10/2013 05/10/2013 Completed form: CHEWTAB, ONCE, Dosing Weight 106.818, kg, Priority: STAT, Start date: 05/10/13 4:32:00, Stop date: 05/10/13 4:32:00Take with food. Saline Flush 0.9% 5 mL, Route: IVP, Drug Form: INJ, 05/10/2013 05/10/2013 Discontinued Dosing Weight 106.818, kg, Q8H, PRN Line Flush, Start date: 05/10/13 4:32:00, Duration: 30 day, Stop date: 06/09/13 4:31:00, Administer at least once every 8 hours Administer at least once every 8 hours(Same as: BD Posiflush) ondansetron 4 mg, 2 mL, Route: IVP, Drug form: 05/10/2013 05/10/2013 Completed INJ, ONCE, Dosing Weight 106.818, kg, Priority: STAT, Start date: 05/10/13 4:32:00, Stop date: 05/10/13 4:32:00(Same as: Zofran) tramadol 50 mg oral 50 mg=1 tab, PO, Q6H, Pain, # 40 05/10/2013 05/20/2013 Ordered tablet tab, 0 Refill(s) ondansetron 4 mg 4 mg=1 ea, PO, Q8H, # 10 tab, 0 05/10/2013 Ordered oral disintegrating Refill(s) strip influenza virus 0.5 ml, Route: IM, Drug Form: SUSP, 12/25/2012 12/25/2012 Completed vaccine, inactivated Start date: 12/25/12 9:00:00, Stop date: 12/25/12 9:00:00 Lasix 40 mg, 4 mL, Route: IVP, Drug form: 05/10/2013 05/10/2013 Completed INJ, ONCE, Dosing Weight 106.818, kg, Priority: STAT, Start date: 05/10/13 8:17:00, Stop date: 05/10/13 8:17:00(Same as: Lasix) Immunizations Vaccine Date Status influenza virus vaccine, inactivated 12/25/2012 Auth (Verified) Vital Signs Most recent to oldest [Reference Range]: 1 2 3 Height 172.72 cm (05/10/2013 04:18:00) Temperature Oral [96.4-99.1 DegF] 97.7 DegF (05/10/2013 09:10:00) 97.7 DegF (05/10/2013 08:38:00) 97.6 DegF (05/10/2013 04:18:00) Systolic Blood Pressure [90-140 mmHg] 141 mmHg *HI* (05/10/2013 09:10:00) 145 mmHg *HI* (05/10/2013 08:38:00) 135 mmHg (05/10/2013 06:29:00) Diastolic Blood Pressure [60-90 mmHg] 101 mmHg *HI* (05/10/2013 09:10:00) 108 mmHg *HI* (05/10/2013 08:38:00) 105 mmHg *HI* (05/10/2013 06:29:00) Respiratory Rate [14-20 BRMIN] 16 BRMIN (05/10/2013 09:10:00) 16 BRMIN (05/10/2013 08:38:00) 16 BRMIN (05/10/2013 06:29:00) Peripheral Pulse Rate [60-100 bpm] 84 bpm (05/10/2013 09:10:00) 88 bpm (05/10/2013 08:38:00) 89 bpm (05/10/2013 06:29:00) Weight 106.818 kg (05/10/2013 04:18:00) Results URINALYSIS Most recent to oldest [Reference Range]: 1 UA Turbidity [Clear] Slight *ABN* (05/10/2013 05:25:57) UA Color [Yellow] Humphreys *ABN* (05/10/2013 05:25:57) UA pH [5.0-8.0] 6.0 (05/10/2013 05:25:57) UA Spec Grav [<=1.030] 1.028 (05/10/2013 05:25:57) UA Glucose [Negative mg/dL] Negative mg/dL *NA* (05/10/2013 05:25:57) UA Blood [Negative] Negative (05/10/2013 05:25:57) UA Ketones TR *NA* (05/10/2013 05:25:57) UA Protein [Negative mg/dL] >=300 mg/dL *ABN* (05/10/2013 05:25:57) UA Urobilinogen [0.1-1.0 mg/dL] 8.0 mg/dL *HI* (05/10/2013 05:25:57) UA Bili [Negative] Moderate *ABN* (05/10/2013 05:25:57) UA Leuk Est [Negative] Negative (05/10/2013 05:25:57) UA Nitrite [Negative] Negative (05/10/2013 05:25:57) UA Bacteria [None Seen /HPF] Moderate /HPF *ABN* (05/10/2013 05:25:57) UA Sq Epi [Few /LPF] Moderate /LPF *ABN* (05/10/2013 05:25:57) UA Mucus [None Seen /LPF] Few /LPF *NA* (05/10/2013 05:25:57) CHEMISTRY Most recent to oldest [Reference Range]: 1 Sodium Lvl [135-145 mEq/L] 138 mEq/L (05/10/2013 05:15:00) Potassium Lvl [3.5-5.1 mEq/L] 4.4 mEq/L (05/10/2013 05:15:00) Chloride Lvl [95-109 mEq/L] 106 mEq/L (05/10/2013 05:15:00) CO2 [24-32 mEq/L] 22 mEq/L *LOW* (05/10/2013 05:15:00) AGAP [10.0-20.0 mEq/L] 14.4 mEq/L (05/10/2013 05:15:00) Creatinine Lvl [0.5-1.4 mg/dL] 1.2 mg/dL (05/10/2013 05:15:00) eGFR 71 mL/min/1.73m2 1 *NA* (05/10/2013 05:15:00) BUN [7-22 mg/dL] 19 mg/dL (05/10/2013 05:15:00) B/C Ratio [6-25] 16 (05/10/2013 05:15:00) Glucose Lvl [70-99 mg/dL] 131 mg/dL 2 *HI* (05/10/2013 05:15:00) Total Protein [6.4-8.4 g/dL] 6.7 g/dL (05/10/2013 05:15:00) Albumin Lvl [3.5-5.0 g/dL] 3.7 g/dL (05/10/2013 05:15:00) Globulin [2.0-4.0 g/dL] 3.0 g/dL (05/10/2013 05:15:00) A/G Ratio [0.7-1.6] 1.2 (05/10/2013 05:15:00) Calcium Lvl [8.5-10.5 mg/dL] 8.5 mg/dL (05/10/2013 05:15:00) ALT [0-65 unit/L] 65 unit/L (05/10/2013 05:15:00) AST [0-37 unit/L] 50 unit/L *HI* (05/10/2013 05:15:00) Alk Phos [39-136 unit/L] 155 unit/L *HI* (05/10/2013 05:15:00) Bili Total [0.2-1.3 mg/dL] 2.6 mg/dL *HI* (05/10/2013 05:15:00) Lipase Lvl [73-393 unit/L] 83 unit/L (05/10/2013 05:15:00) Total CK [12-191 unit/L] 93 unit/L (05/10/2013 05:15:00) CK MB [0.5-3.6 ng/mL] 1.0 ng/mL (05/10/2013 05:15:00) CK MB Index [0.0-2.5] 1.1 (05/10/2013 05:15:00) Troponin-I [0.00-0.40 ng/mL] <0.02 ng/mL (05/10/2013 05:15:00) BNP [<=100 pg/mL] 2058 pg/mL 3 *HI* (05/10/2013 05:15:00) 1Result Comment: The eGFR is calculated using [...] values reflect the clinical guidelines of the [place] [employer]. 3Interpretive Data: Elevated results are in line with increasing severity of congestive heart failure. Minor elevations between 100 and 300 may be seen with Myocardial Ischemia, Sodium retaining drugs, and compensated/treated heart failure. HEMATOLOGY Most recent to oldest [Reference Range]: 1 WBC [3.7-10.4 K/CMM] 8.1 K/CMM (05/10/2013 05:15:00) RBC [4.70-6.10 M/CMM] 5.27 M/CMM (05/10/2013 05:15:00) Hgb [14.0-18.0 g/dL] 14.0 g/dL (05/10/2013 05:15:00) Hct [42.0-54.0 %] 43.2 % (05/10/2013 05:15:00) MCV [80.0-94.0 fL] 81.9 fL (05/10/2013 05:15:00) MCH [27.0-31.0 pg] 26.6 pg *LOW* (05/10/2013 05:15:00) MCHC [32.0-36.0 g/dL] 32.5 g/dL (05/10/2013 05:15:00) RDW [11.5-14.5 %] 22.5 % *HI* (05/10/2013 05:15:00) Platelet [133-450 K/CMM] 213 K/CMM (05/10/2013 05:15:00) MPV [7.4-10.4 fL] 8.9 fL (05/10/2013 05:15:00) Segs [45.0-75.0 %] 78.8 % *HI* (05/10/2013 05:15:00) Lymphocytes [20.0-40.0 %] 12.2 % *LOW* (05/10/2013 05:15:00) Monocytes [2.0-12.0 %] 8.0 % (05/10/2013 05:15:00) Eosinophils [0.0-4.0 %] 0.7 % (05/10/2013 05:15:00) Basophils [0.0-1.0 %] 0.3 % (05/10/2013 05:15:00) Segs-Bands # [1.5-8.1 K/CMM] 6.4 K/CMM (05/10/2013 05:15:00) Lymphocytes # [1.0-5.5 K/CMM] 1.0 K/CMM (05/10/2013 05:15:00) Monocytes # [0.0-0.8 K/CMM] 0.7 K/CMM (05/10/2013 05:15:00) Eosinophils # [0.0-0.5 K/CMM] 0.1 K/CMM (05/10/2013 05:15:00) Basophils # [0.0-0.2 K/CMM] 0.0 K/CMM (05/10/2013 05:15:00) Polychrom [None Seen] Slight (05/10/2013 05:15:00) Tear Cell [None Seen] Slight *ABN* (05/10/2013 05:15:00) Elliptocyte [None Seen] Slight *ABN* (05/10/2013 05:15:00) Plt Morph Normal (05/10/2013 05:15:00) PT [12.0-14.7 seconds] 20.4 seconds *HI* (05/10/2013 05:15:00) INR [0.85-1.17] 1.78 4 *HI* (05/10/2013 05:15:00) PTT [22.9-35.8 seconds] 30.7 seconds 5 (05/10/2013 05:15:00) 4Interpretive Data: RECOMMENDED RANGES FOR PROTIME INR: 2.0-3.0 for most medical and surgical thromboembolic states. 2.5-3.5 for artificial heart valves and recurrent embolism. INR SHOULD BE USED ONLY FOR PATIENTS ON STABLE ANTICOAGULANT THERAPY. 5Interpretive Data: Heparin Therapeutic Range: 57 - 92 Seconds
--- OUTSIDE RECORDS SUMMARY | 2018-12-19 01:27 | XMS REPORT | Summary of Care ---
Author Author [facility] Organization [facility] Address Unknown Phone Unavailable Encounter SULY Morales(NILA) [id number] Date(s): 06/22/16 - 06/23/16 [facility] [address] [place] [address]- Discharge Diagnosis: Dyspnea Discharge Diagnosis: Acute pulmonary edema Discharge Diagnosis: Nasal congestion Discharge Disposition: Home or Self Care Attending Physician: Ceasar Condon MD Vital Signs Most recent to 1 2 oldest [Reference Range]: Height 172.72 cm (06/22/16 11:42 PM) Temperature Oral 97.9 DegF 97.7 DegF [96.4-99.1 DegF] (06/23/16 1:16 AM) (06/22/16 11:42 PM) Blood Pressure 123/86 mmHg 138/89 mmHg [90-140/60-90 mmHg] (06/23/16 1:16 AM) (06/22/16 11:42 PM) Respiratory Rate 18 BRMIN 18 BRMIN [14-20 BRMIN] (06/23/16 1:16 AM) (06/22/16 11:42 PM) Peripheral Pulse 92 bpm 115 bpm Rate [60-100 bpm] (06/23/16 1:16 AM) *HI* (06/22/16 11:42 PM) Weight 104.545 kg (06/22/16 11:42 PM) Body Mass Index 35.04 m2 (06/22/16 11:42 PM) Problem List Condition Effective Dates Status Health Status Informant [D]Anterior chest 12/07/11 Active wall pain(Confirmed) Anxiety(Confirmed) Resolved BP+ - Active Hypertension(Confirm ed) Cardiomyopathy(Confi Resolved rmed) CHF - Congestive Active heart failure(Confirmed) CHF - Congestive Active heart failure(Confirmed) Depression(Confirmed Active ) dm(Confirmed) Active Down Active syndrome(Confirmed) GERD - Active Gastro-esophageal reflux disease(Confirmed) H/O: Active schizophrenia(Confir med) HTN(Confirmed) Active ICD (implantable Active cardiac defibrillator) battery depletion(Confirmed) NIDDM(Confirmed) Active Obese Active build(Confirmed) Schizophrenia(Confir Active med) Short of breath on Active exertion(Confirmed) Sleep Active apnea(Confirmed) Allergies, Adverse Reactions, Alerts Substance Reaction Severity Status NKDA Active Medications Benadryl 12.5 mg, 0.25 mL, Route: IVP, Drug form: INJ, ONCE, Dosing Weight 104.545, kg, P riority: STAT, Start date: 06/23/16 0:09:00 CDT, Stop date: 06/23/16 0:09:00 CDT Notes: (Same as: Benadryl) Start Date: 06/23/16 Stop Date: 06/23/16 Status: Completed Claritin 10 mg oral tablet 10 mg=1 tab, PO, Daily, X 7 day, # 7 tab, 0 Refill(s) Start Date: 06/23/16 Stop Date: 06/30/16 Status: Ordered furosemide 40 mg, 4 mL, Route: IVP, Drug form: INJ, ONCE, Dosing Weight 104.545, kg, Priori ty: STAT, Start date: 06/23/16 1:03:00 CDT, Stop date: 06/23/16 1:03:00 CDT Notes: (Same as: Lasix) MEDICATION WASTE Product Size: 40 mgProduct Was mary jane: ___ mg Start Date: 06/23/16 Stop Date: 06/23/16 Status: Completed Results ELECTROLYTES Most recent to 1 oldest [Reference Range]: Sodium Lvl [135-145 141 mEq/L mEq/L] (06/23/16 12:18 AM) Potassium Lvl 4.1 mEq/L [3.5-5.1 mEq/L] (06/23/16 12:18 AM) Chloride Lvl [95-109 107 mEq/L mEq/L] (06/23/16 12:18 AM) CO2 [24-32 mEq/L] 27 mEq/L (06/23/16 12:18 AM) AGAP [10.0-20.0 11.1 mEq/L mEq/L] (06/23/16 12:18 AM) CHEM PANEL Most recent to 1 oldest [Reference Range]: Creatinine Lvl 1.34 mg/dL [0.50-1.40 mg/dL] (06/23/16 12:18 AM) eGFR 61 mL/min/1.73m2 1 *NA* (06/23/16 12:18 AM) BUN [7-22 mg/dL] 21 mg/dL (06/23/16 12:18 AM) Glucose Lvl [70-99 154 mg/dL mg/dL] *HI* (06/23/16 12:18 AM) Calcium Lvl 8.0 mg/dL [8.5-10.5 mg/dL] *LOW* (06/23/16 12:18 AM) 1Result Comment: The eGFR is calculated using [...] be mul tiplied by the estimated BMI. CARDIAC ENZYMES Most recent to 1 oldest [Reference Range]: Total CK [12-191 141 unit/L unit/L] (06/23/16 12:18 AM) CK MB [0.5-3.6 2.6 ng/mL ng/mL] (06/23/16 12:18 AM) CK MB Index 1.8 [0.0-2.5] (06/23/16 12:18 AM) Troponin-I 0.03 ng/mL [0.00-0.40 ng/mL] (06/23/16 12:18 AM) HEMATOLOGY Most recent to 1 oldest [Reference Range]: WBC [3.7-10.4 K/CMM] 8.1 K/CMM (06/23/16 12:18 AM) RBC [4.70-6.10 4.58 M/CMM M/CMM] *LOW* (06/23/16:18 AM) Hgb [14.0-18.0 g/dL] 14.5 g/dL (06/23/16 12:18 AM) Hct [42.0-54.0 %] 42.3 % (06/23/16:18 AM) MCV [80.0-94.0 fL] 92.3 fL (06/23/16: AM) MCH [27.0-31.0 pg] 31.7 pg *HI* (06/23/16:18 AM) MCHC [32.0-36.0 34.3 g/dL g/dL] (06/23/16:18 AM) RDW [11.5-14.5 %] 14.3 % (06/23/16 12:18 AM) Platelet [133-450 193 K/CMM K/CMM] (06/23/16:18 AM) MPV [7.4-10.4 fL] 8.5 fL (06/23/16:18 AM) Segs [45.0-75.0 %] 79.5 % *HI* (06/23/16:18 AM) Lymphocytes 13.3 % [20.0-40.0 %] *LOW* (06/23/16:18 AM) Monocytes [2.0-12.0 4.6 % %] (06/23/16 12:18 AM) Eosinophils [0.0-4.0 2.4 % %] (06/23/16 12:18 AM) Basophils [0.0-1.0 0.2 % %] (06/23/16 12:18 AM) Segs-Bands # 6.4 K/CMM [1.5-8.1 K/CMM] (06/23/16 12:18 AM) Lymphocytes # 1.1 K/CMM [1.0-5.5 K/CMM] (06/23/16 12:18 AM) Monocytes # [0.0-0.8 0.4 K/CMM K/CMM] (06/23/16 12:18 AM) Eosinophils # 0.2 K/CMM [0.0-0.5 K/CMM] (06/23/16 12:18 AM) Basophils # [0.0-0.2 0.0 K/CMM K/CMM] (06/23/16 12:18 AM) PT [12.0-14.7 15.1 seconds seconds] *HI* (06/23/16 12:18 AM) INR [0.85-1.17] 1.17 (06/23/16 12:18 AM) PTT [22.9-35.8 30.3 seconds seconds] (06/23/16 12:18 AM) Immunizations Given and Recorded Vaccine Date Status Refusal Reason influenza virus vaccine, inactivated 12/25/12 Given Procedures Procedure Date Related Diagnosis Body Site ICD - Internal cardiac defibrillator procedure1 torn ligament2 1placed 2.5years ago 2left knee ligament surgery Social History Social History Type Response Alcohol Never Smoking Status Former smoker; Type: Cigarettes; Tobacco use per day: 0; Number of years: 2; Total pack years: 2; Started at age: [age]; Stopped at age: 23; Previous treatment: None; Ready to change: No; Concerns about tobacco use in household: No; Exposure to Tobacco Smoke None; Cigarette Smoking Last 365 Days No; Reg Smoking Cessation Counseling No Assessment and Plan No data available for this section
--- OUTSIDE RECORDS SUMMARY | 2018-12-19 01:27 | XMS REPORT | Summary of Care ---
Author Author [facility] Organization [facility] Address Unknown Phone Unavailable Encounter HQ Carmen(NILA) [phone] Date(s): 09/09/16 - 09/11/16 [facility] [address] [place] [address]- [phone] Discharge Disposition: Home or Self Care Attending Physician: Nic Liu MD Admitting Physician: Nic Liu MD Vital Signs 1 2 3 Most recent to oldest [Reference Range]: 98.0 DegF (09/11/16 12:00 PM) 98.0 DegF (09/11/16 8:00 AM) 98.3 DegF (09/11/16 4:00 AM) Temperature Oral [96.4-99.1 DegF] 112/79 mmHg (09/11/16 12:00 PM) 115/81 mmHg (09/11/16 8:00 AM) 124/86 mmHg (09/11/16 4:00 AM) Blood Pressure [90-140/60-90 mmHg] 18 BRMIN (09/11/16 12:00 PM) 18 BRMIN (09/11/16 8:00 AM) 20 BRMIN (09/11/16 4:00 AM) Respiratory Rate [14-20 BRMIN] 62 bpm (09/11/16 12:00 PM) 91 bpm (09/11/16 8:00 AM) 76 bpm (09/11/16 4:00 AM) Peripheral Pulse Rate [60-100 bpm] 101.364 kg (09/10/16 1:24 AM) 101.364 kg (09/09/16 8:18 PM) Weight Problem List Condition Effective Dates Status Health [...] Substance Reaction Severity Status NKDA Active Medications acetaminophen 650 mg, 2 tab, Route: PO, Drug form: TAB, Q4H, Dosing Weight 101.364, kg, PRN He adache 1-3, Start date: 09/10/16 1:08:00 CDT, Duration: 30 day, Stop date: 10/10 1:07:00 CDT Notes: Do not exceed 4 gm/day. (Same as: Tylenol) Start Date: 09/10/16 Stop Date: 09/11/16 Status: Discontinued acetaminophen-hydrocodone 325 mg-5 mg oral tablet 1 tab, Route: PO, Drug Form: TAB, Dosing Weight 101.364, kg, Q4H, PRN Pain Score 4-6, Start date: 09/10/16 1:08:00 CDT, Duration: 30 day, Stop date: 10/10/16 1: 07:00 CDT Notes: (Same as: [place] 325/5) Do not exceed 4gm/day of acetaminophen. Start Date: 09/10/16 Stop Date: 09/11/16 Status: Discontinued Ambien See Instructions, 15mg PO Bedtime, 0 Refill(s) Start Date: 09/10/16 Stop Date: 09/11/16 Status: Discontinued ARIPiprazole 5 mg, 1 tab, Route: PO, Drug form: TAB, Daily, Dosing Weight 101.364, kg, Priori ty: NOW, Start date: 09/10/16 16:17:00 CDT, Duration: 30 day, Stop date: 7 9:00:00 CDT Notes: Non-Formulary Drug. (Same as: Alison) Start Date: 09/10/16 Stop Date: 09/11/16 Status: Discontinued aspirin 324 mg, 4 tab, Route: PO, Drug form: CHEWTAB, ONCE, Dosing Weight 101.364, kg, P riority: STAT, Start date: 09/09/16 20:38:00 CDT, Stop date: 09/09/16 20:38:00 C DT Notes: Take with food. Start Date: 09/09/16 Stop Date: 09/09/16 Status: Completed aspirin 81 mg tablet, enteric coated 81 mg, 1 tab, Route: PO, Drug form: ECTAB, Daily, Dosing Weight 101.364, kg, Sta rt date: 09/10/16 9:00:00 CDT, Duration: 30 day, Stop date: 10/09/16 9:00:00 CDT Notes: Do not crush or chew.(Same As: Ecotrin) Start Date: 09/10/16 Stop Date: 09/11/16 Status: Discontinued atorvastatin 40 mg, 1 tab, Route: PO, Drug form: TAB, Bedtime, Dosing Weight 101.364, kg, Sta rt date: 09/10/16 21:00:00 CDT, Duration: 30 day, Stop date: 10/09/16 21:00:00 C DT Notes: (Same as: Lipitor) Start Date: 09/10/16 Stop Date: 09/11/16 Status: Discontinued carvedilol 25 mg oral tablet 25 mg=1 tab, PO, BID, # 60 tab, 0 Refill(s) Start Date: 09/10/16 Stop Date: 09/10/16 Status: Discontinued carvedilol 3.125 mg oral tablet 3.125 mg=1 tab, PO, Q12H, # 60 tab, 0 Refill(s), given to patient Start Date: 09/11/16 Status: Ordered clonazePAM 0.5 mg, 0.5 tab, Route: PO, Drug form: TAB, ONCE, Dosing Weight 101.364, kg, Sta rt date: 09/10/16 1:28:00 CDT, Stop date: 09/10/16 1:28:00 CDT Notes: (Same As: KlonoPIN) Start Date: 09/10/16 Stop Date: 09/10/16 Status: Completed clonazePAM 1 mg oral tablet 1 mg=1 tab, PO, Q12H, PRN Anxiety, # 30 tab, 0 Refill(s) Start Date: 09/10/16 Stop Date: 09/11/16 Status: Discontinued Coreg 3.125 mg, 1 tab, Route: PO, Drug form: TAB, Q12H, Dosing Weight 101.364, kg, Sta rt date: 09/10/16 21:00:00 CDT, Duration: 30 day, Stop date: 10/10/16 9:00:00 CD T Notes: Give with food. (Same As: Coreg) Start Date: 09/10/16 Stop Date: 09/11/16 Status: Discontinued Coreg 25 mg, 1 tab, Route: PO, Drug form: TAB, BID, Dosing Weight 101.364, kg, Start d ate: 09/10/16 9:00:00 CDT, Duration: 30 day, Stop date: 10/09/16 17:00:00 CDT Notes: Give with food. (Same As: Coreg) Start Date: 09/10/16 Stop Date: 09/10/16 Status: Discontinued Dextrose 50% Syringe 12.5 gm, 25 mL, Route: IVP, Drug Form: INJ, Dosing Weight 101.364, kg, PRN, PRN Blood Glucose Results, Start date: 09/10/16 1:19:00 CDT, Duration: 30 day, Stop date: 10/10/16 1:18:00 CDT Start Date: 09/10/16 Stop Date: 09/11/16 Status: Discontinued Dextrose 50% Syringe 25 gm, 50 mL, Route: IVP, Drug Form: INJ, Dosing Weight 101.364, kg, PRN, PRN Bl ood Glucose Results, Start date: 09/10/16 1:19:00 CDT, Duration: 30 day, Stop da te: 10/10/16 1:18:00 CDT Start Date: 09/10/16 Stop Date: 09/11/16 Status: Discontinued diphenhydrAMINE 25 mg, 1 cap, Route: PO, Drug form: CAP, Bedtime, Dosing Weight 101.364, kg, PRN Insomnia, Start date: 09/10/16 1:08:00 CDT, Duration: 30 day, Stop date: 1:07:00 CDT Notes: (Same as: Benadryl) Start Date: 09/10/16 Stop Date: 09/11/16 Status: Discontinued FLUoxetine 40 mg, PO, Daily, 0 Refill(s) Start Date: 09/10/16 Status: Ordered FLUoxetine 40 mg, 2 cap, Route: PO, Drug form: CAP, Daily, Dosing Weight 101.364, kg, Prior ity: NOW, Start date: 09/10/16 16:18:00 CDT, Duration: 30 day, Stop date: 9:00:00 CDT Notes: (Same as: Jake Sanchez) Start Date: 09/10/16 Stop Date: 09/11/16 Status: Discontinued glucagon 1 mg, Route: IM, Drug form: PDR/INJ, PRN, Dosing Weight 101.364, kg, PRN Blood G lucose Results, Start date: 09/10/16 1:19:00 CDT, Duration: 30 day, Stop date: 0 10/10/16 1:18:00 CDT Start Date: 09/10/16 Stop Date: 09/11/16 Status: Discontinued insulin aspart 1 unit, 0.01 mL, Route: SUB-Q, Drug form: SOLN, Bedtime, Dosing Weight 101.364, kg, PRN Blood Glucose Results, Start date: 09/10/16 1:19:00 CDT, Duration: 30 da y, Stop date: 10/10/16 1:18:00 CDT Notes: Roll in palms of hands gently; Do not shake vigorously. (Same as: Mallorie Castellanos)"single patient use only"WASTE: F/P - Black; E - Municipal Trash Bin Stable f or 28 days at room temperature.Expires in days from Date Start Date: 09/10/16 Stop Date: 09/11/16 Status: Discontinued insulin aspart 2 unit, 0.02 mL, Route: SUB-Q, Drug form: SOLN, Bedtime, Dosing Weight 101.364, kg, PRN Blood Glucose Results, Start date: 09/10/16 1:19:00 CDT, Duration: 30 da y, Stop date: 10/10/16 1:18:00 CDT Notes: Roll in palms of hands gently; Do not shake vigorously. (Same as: Mallorei Castellanos)"single patient use only"WASTE: F/P - Black; E - Municipal Trash Bin Stable f or 28 days at room temperature.Expires in days from Date Start Date: 09/10/16 Stop Date: 09/11/16 Status: Discontinued insulin aspart 3 unit, 0.03 mL, Route: SUB-Q, Drug form: SOLN, Bedtime, Dosing Weight 101.364, kg, PRN Blood Glucose Results, Start date: 09/10/16 1:19:00 CDT, Duration: 30 da y, Stop date: 10/10/16 1:18:00 CDT Notes: Roll in palms of hands gently; Do not shake vigorously. (Same as: Mallorie Castellanos)"single patient use only"WASTE: F/P - Black; E - Municipal Trash Bin Stable f or 28 days at room temperature.Expires in days from Date Start Date: 09/10/16 Stop Date: 09/11/16 Status: Discontinued insulin aspart 4 unit, 0.04 mL, Route: SUB-Q, Drug form: SOLN, Bedtime, Dosing Weight 101.364, kg, PRN Blood Glucose Results, Start date: 09/10/16 1:19:00 CDT, Duration: 30 da y, Stop date: 10/10/16 1:18:00 CDT Notes: Roll in palms of hands gently; Do not shake vigorously. (Same as: Mallorie Castellanos)"single patient use only"WASTE: F/P - Black; E - Municipal Trash Bin Stable f or 28 days at room temperature.Expires in days from Date Start Date: 09/10/16 Stop Date: 09/11/16 Status: Discontinued insulin aspart 5 unit, 0.05 mL, Route: SUB-Q, Drug form: SOLN, TID-Before Meals, Dosing Weight 101.364, kg, PRN Blood Glucose Results, Start date: 09/10/16 1:19:00 CDT, Durati on: 30 day, Stop date: 10/10/16 1:18:00 CDT Notes: Roll in palms of hands gently; Do not shake vigorously. (Same as: NovoGRETCHEN Castellanos)"single patient use only"WASTE: F/P - Black; E - Municipal Trash Bin Stable f or 28 days at room temperature.Expires in days from Date Start Date: 09/10/16 Stop Date: 09/11/16 Status: Discontinued insulin aspart 4 unit, 0.04 mL, Route: SUB-Q, Drug form: SOLN, TID-Before Meals, Dosing Weight 101.364, kg, PRN Blood Glucose Results, Start date: 09/10/16 1:19:00 CDT, Durati on: 30 day, Stop date: 10/10/16 1:18:00 CDT Notes: Roll in palms of hands gently; Do not shake vigorously. (Same as: NovoGRETCHEN Castellanos)"single patient use only"WASTE: F/P - Black; E - Municipal Trash Bin Stable f or 28 days at room temperature.Expires in days from Date Start Date: 09/10/16 Stop Date: 09/11/16 Status: Discontinued insulin aspart 1 unit, 0.01 mL, Route: SUB-Q, Drug form: SOLN, TID-Before Meals, Dosing Weight 101.364, kg, PRN Blood Glucose Results, Start date: 09/10/16 1:19:00 CDT, Durati on: 30 day, Stop date: 10/10/16 1:18:00 CDT Notes: Roll in palms of hands gently; Do not shake vigorously. (Same as: NovoGRETCHEN Castellanos)"single patient use only"WASTE: F/P - Black; E - Municipal Trash Bin Stable f or 28 days at room temperature.Expires in days from Date Start Date: 09/10/16 Stop Date: 09/11/16 Status: Discontinued insulin aspart 3 unit, 0.03 mL, Route: SUB-Q, Drug form: SOLN, TID-Before Meals, Dosing Weight 101.364, kg, PRN Blood Glucose Results, Start date: 09/10/16 1:19:00 CDT, Durati on: 30 day, Stop date: 10/10/16 1:18:00 CDT Notes: Roll in palms of hands gently; Do not shake vigorously. (Same as: Mallorie Castellanos)"single patient use only"WASTE: F/P - Black; E - Municipal Trash Bin Stable f or 28 days at room temperature.Expires in days from Date Start Date: 09/10/16 Stop Date: 09/11/16 Status: Discontinued insulin aspart 2 unit, 0.02 mL, Route: SUB-Q, Drug form: SOLN, TID-Before Meals, Dosing Weight 101.364, kg, PRN Blood Glucose Results, Start date: 09/10/16 1:19:00 CDT, Durati on: 30 day, Stop date: 10/10/16 1:18:00 CDT Notes: Roll in palms of hands gently; Do not shake vigorously. (Same as: Mallorie Castellanos)"single patient use only"WASTE: F/P - Black; E - Municipal Trash Bin Stable f or 28 days at room temperature.Expires in days from Date Start Date: 09/10/16 Stop Date: 09/11/16 Status: Discontinued Levemir 10 unit, 0.1 mL, Route: SUB-Q, Drug form: INJ, Bedtime, Dosing Weight 101.364, k g, Start date: 09/10/16 21:00:00 CDT, Duration: 30 day, Stop date: 10/09/16 21:0 0:00 CDT Notes: Same as LevemirDo not hold insulin without contacting prescriberWASTE: F/ P - Black; E - Municipal Trash Bin "single patient use only" Start Date: 09/10/16 Stop Date: 09/11/16 Status: Discontinued Levemir 100 units/mL 20 unit, SUB-Q, Bedtime, 0 Refill(s) Start Date: 09/10/16 Stop Date: 09/10/16 Status: Discontinued lisinopril 5 mg, 1 tab, Route: PO, Drug form: TAB, Daily, Dosing Weight 101.364, kg, Start date: 09/10/16 9:00:00 CDT, Duration: 30 day, Stop date: 10/09/16 9:00:00 CDT Notes: (Same as: Prinivil, Zestril) Start Date: 09/10/16 Stop Date: 09/11/16 Status: Discontinued lisinopril 5 mg oral tablet 5 mg=1 tab, PO, Daily, # 30 tab, 0 Refill(s) Start Date: 09/10/16 Status: Ordered morphine Sulfate 2 mg, 1 mL, Route: IVP, Drug form: INJ, Q6H, Dosing Weight 101.364, kg, PRN Pain Score 4-6, Start date: 09/10/16 1:08:00 CDT, Duration: 30 day, Stop date: 10/10 1:07:00 CDT Notes: (Same as:MORPhine Sulfate) Start Date: 09/10/16 Stop Date: 09/11/16 Status: Discontinued morphine Sulfate 4 mg, 1 mL, Route: IVP, Drug form: INJ, ONCE, Dosing Weight 101.364, kg, Priorit y: STAT, Start date: 09/09/16 20:38:00 CDT, Stop date: 09/09/16 20:38:00 CDT Notes: (Same as:MORPhine Sulfate) Start Date: 09/09/16 Stop Date: 09/09/16 Status: Completed ondansetron 4 mg, 1 tab, Route: PO, Drug form: TAB, Q8H, Dosing Weight 101.364, kg, PRN Naus ea & Vomiting, Start date: 09/10/16 1:08:00 CDT, Duration: 30 day, Stop date: 10/10/16 1:07:00 CDT Notes: (Same as: Zofran) Start Date: 09/10/16 Stop Date: 09/11/16 Status: Discontinued ondansetron 4 mg, 2 mL, Route: IVP, Drug form: INJ, ONCE, Dosing Weight 101.364, kg, Priorit y: STAT, Start date: 09/09/16 20:38:00 CDT, Stop date: 09/09/16 20:38:00 CDT Notes: (Same as: Zofran) MEDICATION WASTE Product Size: 4 mgProduct Was mary jane: ___ mg Start Date: 09/09/16 Stop Date: 09/09/16 Status: Completed pantoprazole 40 mg, 1 tab, Route: PO, Drug form: ECTAB, Before Dinner, Dosing Weight 101.364, kg, Start date: 09/10/16 16:30:00 CDT, Duration: 30 day, Stop date: 10/09/16 16 :30:00 CDT Notes: Tablet should not be chewed or crushed.(Same as: Protonix) Start Date: 09/10/16 Stop Date: 09/11/16 Status: Discontinued pantoprazole 40 mg, Route: IVP, Drug form: INJ, Before Dinner, Dosing Weight 101.364, kg, Sta rt date: 09/10/16 16:30:00 CDT, Duration: 30 day, Stop date: 10/09/16 16:30:00 C DT Notes: For IV push reconstitute with 10 ml 0.9% sodium chloride and push over 2 minutes. (Same as: Protonix) Start Date: 09/10/16 Stop Date: 09/10/16 Status: Canceled rivaroxaban 20 mg, 1 tab, Route: PO, Drug form: TAB, Daily, Dosing Weight 101.364, kg, Start date: 09/10/16 9:00:00 CDT, Duration: 30 day, Stop date: 10/09/16 9:00:00 CDT Notes: (Same as: Xarelto)Administer with food Start Date: 09/10/16 Stop Date: 09/11/16 Status: Discontinued rivaroxaban 20 mg oral tablet 20 mg=1 tab, PO, Daily, # 30 tab, 0 Refill(s) Start Date: 09/10/16 Status: Ordered Saline Flush 0.9% 10 mL, Route: IVP, Drug Form: INJ, Dosing Weight 101.364, kg, PRN, PRN Line Flus h, Start date: 09/09/16 20:38:00 CDT, Duration: 30 day, Stop date: 10/09/16 20:3 7:00 CDT Notes: (Same as: BD Posiflush) Start Date: 09/09/16 Stop Date: 09/11/16 Status: Discontinued thiothixene 5 mg oral capsule 5 mg=1 cap, PO, Bedtime, # 60 cap, 0 Refill(s) Start Date: 09/10/16 Stop Date: 09/11/16 Status: Discontinued thiothixene 5 mg oral capsule 5 mg=1 cap, PO, Bedtime, # 60 cap, 0 Refill(s) Start Date: 09/10/16 Stop Date: 09/10/16 Status: Discontinued torsemide 20 mg, 1 tab, Route: PO, Drug form: TAB, Daily, Dosing Weight 101.364, kg, Start date: 09/10/16 9:00:00 CDT, Duration: 30 day, Stop date: 10/09/16 9:00:00 CDT Notes: (Same As: Demadex) Start Date: 09/10/16 Stop Date: 09/11/16 Status: Discontinued torsemide 20 mg oral tablet 20 mg=1 tab, PO, Daily, # 30 tab, 0 Refill(s) Start Date: 09/10/16 Status: Ordered Vitamin D3 50,000 intl units oral capsule 50,000 IntlUnit=1 cap, PO, qWeek, # 12 cap, 0 Refill(s) Start Date: 09/10/16 Stop Date: 12/03/16 Status: Ordered Results ELECTROLYTES 1 2 3 Most recent to oldest [Reference Range]: 141 mEq/L (09/10/16 3:55 AM) 142 mEq/L (09/09/16 9:28 PM) Sodium Lvl [135-145 mEq/L] 3.9 mEq/L (09/10/16 3:55 AM) 3.7 mEq/L (09/09/16 9:28 PM) Potassium Lvl [3.5-5.1 mEq/L] 106 mEq/L (09/10/16 3:55 AM) 104 mEq/L (09/09/16 9:28 PM) Chloride Lvl [95-109 mEq/L] 27 mEq/L (09/10/16 3:55 AM) 30 mEq/L (09/09/16 9:28 PM) CO2 [24-32 mEq/L] 11.9 mEq/L (09/10/16 3:55 AM) 11.7 mEq/L (09/09/16 9:28 PM) AGAP [10.0-20.0 mEq/L] CHEM PANEL 1 2 3 Most recent to oldest [Reference Range]: 1.40 mg/dL (09/10/16 3:55 AM) 1.56 mg/dL *HI* (09/09/16 9:28 PM) Creatinine Lvl [0.50-1.40 mg/dL] 57 mL/min/1.73m2 1 *NA* (09/10/16 3:55 AM) 50 mL/min/1.73m2 2 *NA* (09/09/16 9:28 PM) eGFR 23 mg/dL *HI* (09/10/16 3:55 AM) 21 mg/dL (09/09/16 9:28 PM) BUN [7-22 mg/dL] 13 (09/09/16 9:28 PM) B/C Ratio [6-25] 196 mg/dL *HI* (09/10/16 3:55 AM) 188 mg/dL *HI* (09/09/16 9:28 PM) Glucose Lvl [70-99 mg/dL] 7.3 g/dL (09/09/16 9:28 PM) Total Protein [6.4-8.4 g/dL] 3.9 g/dL (09/09/16 9:28 PM) Albumin Lvl [3.5-5.0 g/dL] 3.4 g/dL (09/09/16 9:28 PM) Globulin [2.7-4.2 g/dL] 1.1 (09/09/16 9:28 PM) A/G Ratio [0.7-1.6] 8.3 mg/dL *LOW* (09/10/16 3:55 AM) 8.4 mg/dL *LOW* (09/09/16 9:28 PM) Calcium Lvl [8.5-10.5 mg/dL] 27 unit/L (09/09/16 9:28 PM) ALT [0-65 unit/L] 28 unit/L (09/09/16 9:28 PM) AST [0-37 unit/L] 124 unit/L (09/09/16 9:28 PM) Alk Phos [39-136 unit/L] 0.6 mg/dL (09/09/16 9:28 PM) Bili Total [0.2-1.3 mg/dL] 1Result Comment: The eGFR is calculated using [...] be mul tiplied by the estimated BMI. 2Result Comment: The eGFR is calculated using the [...] tiplied by the estimated BMI. CARDIAC ENZYMES 1 2 3 Most recent to oldest [Reference Range]: 160 unit/L (09/10/16 9:13 AM) 193 unit/L *HI* (09/10/16 3:55 AM) 195 unit/L *HI* (09/10/16 3:55 AM) Total CK [12-191 unit/L] 1.1 ng/mL (09/10/16 9:13 AM) 1.2 ng/mL (09/10/16 3:55 AM) 1.7 ng/mL (09/09/16 9:28 PM) CK MB [0.5-3.6 ng/mL] 0.7 (09/09/16 9:28 PM) CK MB Index [0.0-2.5] <0.02 ng/mL (09/10/16 9:13 AM) 0.02 ng/mL (09/10/16 3:55 AM) 0.02 ng/mL (09/09/16 9:28 PM) Troponin-I [0.00-0.40 ng/mL] 208 pg/mL *HI* (09/09/16 9:28 PM) BNP [<=100 pg/mL] DRUG SCREEN 1 2 3 Most recent to oldest [Reference Range]: Negative *NA* (09/10/16 12:02 AM) U Amph Scr [Negative] Negative *NA* (09/10/16 12:02 AM) U Brigette Scr [Negative] Negative *NA* (09/10/16 12:02 AM) U Benzodia Scr [Negative] Positive *ABN* (09/10/16 12:02 AM) U Cocaine Scr [Negative] Positive *ABN* (09/10/16 12:02 AM) U Opiate Scr [Negative] Negative *NA* (09/10/16 12:02 AM) U Phencyc Scr [Negative] Negative *NA* (09/10/16 12:02 AM) U Cannab Scr [Negative] See Note (09/10/16 12:02 AM) UDS Note HEMATOLOGY 1 2 3 Most recent to oldest [Reference Range]: 8.9 K/CMM (09/09/16 9:28 PM) WBC [3.7-10.4 K/CMM] 5.23 M/CMM (09/09/16 9:28 PM) RBC [4.70-6.10 M/CMM] 15.9 g/dL (09/09/16 9:28 PM) Hgb [14.0-18.0 g/dL] 47.9 % (09/09/16 9:28 PM) Hct [42.0-54.0 %] 91.5 fL (09/09/16 9:28 PM) MCV [80.0-94.0 fL] 30.4 pg (09/09/16 9:28 PM) MCH [27.0-31.0 pg] 33.2 g/dL (09/09/16 9:28 PM) MCHC [32.0-36.0 g/dL] 14.3 % (09/09/16 9:28 PM) RDW [11.5-14.5 %] 169 K/CMM (09/09/16 9:28 PM) Platelet [133-450 K/CMM] 8.4 fL (09/09/16 9:28 PM) MPV [7.4-10.4 fL] 79.2 % *HI* (09/09/16 9:28 PM) Segs [45.0-75.0 %] 12.9 % *LOW* (09/09/16 9:28 PM) Lymphocytes [20.0-40.0 %] 6.9 % (09/09/16 9:28 PM) Monocytes [2.0-12.0 %] 0.9 % (09/09/16 9:28 PM) Eosinophils [0.0-4.0 %] 0.1 % (09/09/16 9:28 PM) Basophils [0.0-1.0 %] 7.0 K/CMM (09/09/16 9:28 PM) Segs-Bands # [1.5-8.1 K/CMM] 1.1 K/CMM (09/09/16 9:28 PM) Lymphocytes # [1.0-5.5 K/CMM] 0.6 K/CMM (09/09/16 9:28 PM) Monocytes # [0.0-0.8 K/CMM] 0.1 K/CMM (09/09/16 9:28 PM) Eosinophils # [0.0-0.5 K/CMM] 0.0 K/CMM (09/09/16 9:28 PM) Basophils # [0.0-0.2 K/CMM] 21.1 seconds *HI* (09/09/16 9:28 PM) PT [12.0-14.7 seconds] 1.79 *HI* (09/09/16 9:28 PM) INR [0.85-1.17] 43.5 seconds *HI* (09/09/16 9:28 PM) PTT [22.9-35.8 seconds] Immunizations Given and Recorded Vaccine Date Status Refusal Reason influenza virus vaccine, inactivated 12/25/12 Given Not Given Vaccine Date Status Refusal Reason pneumococcal 23-valent vaccine 09/10/16 Not Given Patient Refuses Procedures Procedure Date Related Diagnosis Body Site ICD - Internal cardiac defibrillator procedure1 torn ligament2 1placed 2.5years ago 2left knee ligament surgery Social History Social History Type Response Substance Abuse Use: Current. Type: Cocaine. Recreational Drug Route: Inhaled. Amount: uses 5x a year. Alcohol Never Smoking Status Former smoker; Type: Cigarettes; Tobacco use per day: 0; Number of years: 2; Total pack years: 2; Started at age: [age]; Stopped at age: 23; Previous treatment: None; Ready to change: No; Concerns about tobacco use in household: No; Exposure to Tobacco Smoke None; Cigarette Smoking Last 365 Days No; Reg Smoking Cessation Counseling No Assessment and Plan Extracted from: Title: Discharge Summary * Author: Saud Cortes MD [...] most recent visit was last week. Dr. Holloway was consulted last time and diagnosed pain to be due to costochondritis. Pt reports feeling more anxious recently because he has not been getting his clonazepam for the past week. Discharge Diagnoses: Atypical Chest Pain; Suicidal Ideation; Cocaine Abuse Hospital Course: Patient was admitted to observation and ACS protocol was initiated and Dr. Holloway, cardiology was consulted for possible AICD interrogation. Dr. Holloway has seen patient before for similar episodes [...] auditory hallucinations. Patient was discharged back to [facility] in stable condition. Consults: Psych Response Pertinent Studies: * Final Report * Reason For Exam Chief Complaint:chest pain that started like an hour ago with palpitations. [facility] [employer] [facility] Rad[facility] Report EXAM: XR [...] you need any additional information regarding your patient s hospital stay please call the page shredding machine operator at [facility] [phone], and ask him/her to page me. Patient discussed with attending physician, Dr. Leanne Cortes MD PGY-1 MSO# [id number] Extracted from: Title: Brief Progress Note Author: Tone Cancino MD [...] Dr. Perdomo. Bridgette Cancino M.D. PGY1, MSO [id number] Extracted from: Title: General Admission H&P * Author: Jimena Zimmerman [...] did not show evidence of CAD -Consult pt s baking assistant: Dr. Holloway for AICD interrogation -ASA, Lisinopril, carvedilol, high [...] senior Dr. Duane Zimmerman MD PGY1 MSO# [id number] Senior Addendum: Patient examined. Agree with above. [...] ASA, DIAMANTE, BB, statin, Xarelto. Consult patient's baking assistant Dr. Holloway. Counseled on avoiding cocaine use. We will give levemir and SSI for uncontrolled diabetes. Patient discussed with attending, Dr. Alvarado, who agrees with the plan. Dacia Zepeda MD PGY2 MSO [id number]
--- OUTSIDE RECORDS SUMMARY | 2018-12-19 01:27 | XMS REPORT | Summary of Care ---
Author Author [facility] Organization [facility] Address Unknown Phone Unavailable Encounter HQ Carmen(NILA) [id number] Date(s): 09/01/16 - 09/02/16 [facility] [address] [place] [address]- [phone] Discharge Disposition: Home or Self Care Attending Physician: Sarah Peña DO Admitting Physician: Sarah Peña DO Vital Signs 1 2 3 Most recent to oldest [Reference Range]: 175.26 cm (09/02/16 1:26 AM) Height 97.4 DegF (09/02/16 7:35 AM) 97.8 DegF (09/02/16 5:00 AM) 97.7 DegF (09/02/16 1:38 AM) Temperature Oral [96.4-99.1 DegF] 105/70 mmHg (09/02/16 7:35 AM) 115/84 mmHg (09/02/16 5:00 AM) 100/69 mmHg (09/02/16 1:38 AM) Blood Pressure [90-140/60-90 mmHg] 18 BRMIN (09/02/16 7:35 AM) 18 BRMIN (09/02/16 5:00 AM) 18 BRMIN (09/02/16 1:38 AM) Respiratory Rate [14-20 BRMIN] 80 bpm (09/02/16 7:35 AM) 86 bpm (09/02/16 5:00 AM) 60 bpm (09/02/16 1:38 AM) Peripheral Pulse Rate [60-100 bpm] 102.926 kg (09/02/16 1:26 AM) 90.909 kg (09/01/16 9:43 PM) Weight 33.51 m2 (09/02/16 1:26 AM) Body Mass Index Problem List Condition Effective Dates Status Health [...] Substance Reaction Severity Status NKDA Active Medications aspirin 325 mg, Route: PO, Drug form: TAB, ONCE, Dosing Weight 90.909, kg, Priority: STA T, Start date: 09/01/16 21:58:00 CDT, Stop date: 09/01/16 21:58:00 CDT Start Date: 09/01/16 Stop Date: 09/01/16 Status: Completed BD Normal Saline Flush 10 mL, Route: IVP, Drug Form: INJ, PRN, PRN Line Flush, Start date: 09/02/16 0:5 7:00 CDT, Duration: 30 day, Stop date: 10/02/16 0:56:00 CDT Notes: (Same as: BD Posiflush) Start Date: 09/02/16 Stop Date: 09/02/16 Status: Discontinued Cardizem 20 mg, Route: IVP, ONCE, Dosing Weight 90.909, kg, Priority: STAT, Start date: 0 09/01/16 21:59:00 CDT, Stop date: 09/01/16 21:59:00 CDT Start Date: 09/01/16 Stop Date: 09/01/16 Status: Completed clonazePAM 1 mg, 1 tab, Route: PO, Drug form: TAB, ONCE, Dosing Weight 102.926, kg, Priorit y: STAT, Start date: 09/02/16 14:30:00 CDT, Stop date: 09/02/16 14:30:00 CDT Notes: (Same As: KlonoPIN) Start Date: 09/02/16 Stop Date: 09/02/16 Status: Completed Dextrose 50% Syringe 25 gm, 50 mL, Route: IVP, Drug Form: INJ, Dosing Weight 102.926, kg, PRN, PRN Bl ood Glucose Results, Start date: 09/02/16 2:03:00 CDT, Duration: 30 day, Stop da te: 10/02/16 2:02:00 CDT Start Date: 09/02/16 Stop Date: 09/02/16 Status: Discontinued Dextrose 50% Syringe 12.5 gm, 25 mL, Route: IVP, Drug Form: INJ, Dosing Weight 102.926, kg, PRN, PRN Blood Glucose Results, Start date: 09/02/16 2:03:00 CDT, Duration: 30 day, Stop date: 10/02/16 2:02:00 CDT Start Date: 09/02/16 Stop Date: 09/02/16 Status: Discontinued glucagon 1 mg, Route: IM, Drug form: PDR/INJ, PRN, Dosing Weight 102.926, kg, PRN Blood G lucose Results, Start date: 09/02/16 2:03:00 CDT, Duration: 30 day, Stop date: 0 10/02/16 2:02:00 CDT Start Date: 09/02/16 Stop Date: 09/02/16 Status: Discontinued insulin aspart 2 unit, 0.02 mL, Route: SUB-Q, Drug form: SOLN, Sliding Scale, Dosing Weight 102 .926, kg, PRN Blood Glucose Results, Start date: 09/02/16 2:03:00 CDT, Duration: 30 day, Stop date: 10/02/16 2:02:00 CDT Notes: Roll in palms of hands gently; Do not shake vigorously. (Same as: NovoLO G)"single patient use only"WASTE: F/P - Black; E - Municipal Trash Bin Stable f or 28 days at room temperature.Expires in days from Date Start Date: 09/02/16 Stop Date: 09/02/16 Status: Discontinued insulin aspart 6 unit, 0.06 mL, Route: SUB-Q, Drug form: SOLN, Sliding Scale, Dosing Weight 102 .926, kg, PRN Blood Glucose Results, Start date: 09/02/16 2:03:00 CDT, Duration: 30 day, Stop date: 10/02/16 2:02:00 CDT Notes: Roll in palms of hands gently; Do not shake vigorously. (Same as: Mallorie Castellanos)"single patient use only"WASTE: F/P - Black; E - Municipal Trash Bin Stable f or 28 days at room temperature.Expires in days from Date Start Date: 09/02/16 Stop Date: 09/02/16 Status: Discontinued insulin aspart 4 unit, 0.04 mL, Route: SUB-Q, Drug form: SOLN, Sliding Scale, Dosing Weight 102 .926, kg, PRN Blood Glucose Results, Start date: 09/02/16 2:03:00 CDT, Duration: 30 day, Stop date: 10/02/16 2:02:00 CDT Notes: Roll in palms of hands gently; Do not shake vigorously. (Same as: Mallorie Castellanos)"single patient use only"WASTE: F/P - Black; E - Municipal Trash Bin Stable f or 28 days at room temperature.Expires in days from Date Start Date: 09/02/16 Stop Date: 09/02/16 Status: Discontinued insulin aspart 10 unit, 0.1 mL, Route: SUB-Q, Drug form: SOLN, Sliding Scale, Dosing Weight 102 .926, kg, PRN Blood Glucose Results, Start date: 09/02/16 2:03:00 CDT, Duration: 30 day, Stop date: 10/02/16 2:02:00 CDT Notes: Roll in palms of hands gently; Do not shake vigorously. (Same as: NovoGRETCHEN Castellanos)"single patient use only"WASTE: F/P - Black; E - Municipal Trash Bin Stable f or 28 days at room temperature.Expires in days from Date Start Date: 09/02/16 Stop Date: 09/02/16 Status: Discontinued insulin aspart 8 unit, 0.08 mL, Route: SUB-Q, Drug form: SOLN, Sliding Scale, Dosing Weight 102 .926, kg, PRN Blood Glucose Results, Start date: 09/02/16 2:03:00 CDT, Duration: 30 day, Stop date: 10/02/16 2:02:00 CDT Notes: Roll in palms of hands gently; Do not shake vigorously. (Same as: NovoGRETCHEN Castellanos)"single patient use only"WASTE: F/P - Black; E - Municipal Trash Bin Stable f or 28 days at room temperature.Expires in days from Date Start Date: 09/02/16 Stop Date: 09/02/16 Status: Discontinued morphine Sulfate 2 mg, 1 mL, Route: IVP, Drug form: INJ, Q2H, Dosing Weight 102.926, kg, PRN Pain Score 7-10, Start date: 09/02/16 3:05:00 CDT, Duration: 30 day, Stop date: 12/11 3:04:00 CDT Notes: (Same as:MORPhine Sulfate) Start Date: 09/02/16 Stop Date: 09/02/16 Status: Discontinued NS (Bolus) IV 500 mL, 500 ml/hr, Infuse Over: 1 hr, Route: IV, ONCE, Priority: STAT, Dosing We ight 90.909 kg, Start date: 09/01/16 22:58:00 CDT, Duration: 1 doses or times, S top date: 09/01/16 22:58:00 CDT Start Date: 09/01/16 Stop Date: 09/01/16 Status: Completed ondansetron 4 mg, 2 mL, Route: IVP, Drug form: INJ, Q6H, Dosing Weight 90.909, kg, PRN Nause a & Vomiting, Start date: 09/02/16 0:55:00 CDT, Duration: 30 day, Stop date: 10/02/16 0:54:00 CDT Notes: (Same as: Jelena) MEDICATION WASTE Product Size: 4 mgProduct Was mary jane: ___ mg Start Date: 09/02/16 Stop Date: 09/02/16 Status: Discontinued Sodium Chloride 0.9% IV 250 mL, Route: IVPB, Start date: 09/02/16 0:57:00 CDT, Duration: 30 day, Stop da te: 10/02/16 0:56:00 CDT, PRN Line Flush Start Date: 09/02/16 Stop Date: 09/02/16 Status: Discontinued Results ELECTROLYTES Most recent to 1 2 oldest [Reference Range]: Sodium Lvl [135-145 137 mEq/L 139 mEq/L mEq/L] (09/02/16 8:34 AM) (09/01/16 10:30 PM) Potassium Lvl 3.9 mEq/L 1 3.5 mEq/L [3.5-5.1 mEq/L] (09/02/16 8:34 AM) (09/01/16 10:30 PM) Chloride Lvl [95-109 103 mEq/L 98 mEq/L mEq/L] (09/02/16 8:34 AM) (09/01/16 10:30 PM) CO2 [24-32 mEq/L] 26 mEq/L 32 mEq/L (09/02/16 8:34 AM) (09/01/16 10:30 PM) AGAP [10.0-20.0 11.9 mEq/L 12.5 mEq/L mEq/L] (09/02/16 8:34 AM) (09/01/16 10:30 PM) 1Result Comment: Specimen Slightly Hemolyzed. CHEM PANEL Most recent to 1 2 oldest [Reference Range]: Creatinine Lvl 1.20 mg/dL 1.70 mg/dL [0.50-1.40 mg/dL] (09/02/16 8:34 AM) *HI* (09/01/16 10:30 PM) eGFR 69 mL/min/1.73m2 1 45 mL/min/1.73m2 2 *NA* *NA* (09/02/16 8:34 AM) (09/01/16 10:30 PM) BUN [7-22 mg/dL] 29 mg/dL 33 mg/dL *HI* *HI* (09/02/16 8:34 AM) (09/01/16 10:30 PM) B/C Ratio [6-25] 24 19 (09/02/16 8:34 AM) (09/01/16 10:30 PM) Glucose Lvl [70-99 157 mg/dL 204 mg/dL mg/dL] *HI* *HI* (09/02/16 8:34 AM) (09/01/16 10:30 PM) Total Protein 6.6 g/dL 7.4 g/dL [6.4-8.4 g/dL] (09/02/16 8:34 AM) (09/01/16 10:30 PM) Albumin Lvl [3.5-5.0 2.9 g/dL 4.0 g/dL g/dL] *LOW* (09/01/16 10:30 PM) (09/02/16 8:34 AM) Globulin [2.7-4.2 3.7 g/dL 3.4 g/dL g/dL] (09/02/16 8:34 AM) (09/01/16 10:30 PM) A/G Ratio [0.7-1.6] 0.8 1.2 (09/02/16 8:34 AM) (09/01/16 10:30 PM) Calcium Lvl 8.5 mg/dL 9.0 mg/dL [8.5-10.5 mg/dL] (09/02/16 8:34 AM) (09/01/16 10:30 PM) ALT [0-65 unit/L] 24 unit/L 23 unit/L (09/02/16 8:34 AM) (09/01/16 10:30 PM) AST [0-37 unit/L] 26 unit/L 16 unit/L (09/02/16 8:34 AM) (09/01/16 10:30 PM) Alk Phos [39-136 94 unit/L 127 unit/L unit/L] (09/02/16 8:34 AM) (09/01/16 10:30 PM) Bili Total [0.2-1.3 0.6 mg/dL 0.5 mg/dL mg/dL] (09/02/16 8:34 AM) (09/01/16 10:30 PM) 1Result Comment: The eGFR is calculated using [...] estimated BMI. CARDIAC ENZYMES Most recent to [Reference Range]: Total CK [12-191 182 unit/L unit/L] (09/01/16 10:30 PM) CK MB [0.5-3.6 1.4 ng/mL ng/mL] (09/01/16 10:30 PM) CK MB Index 0.8 [0.0-2.5] (09/01/16 10:30 PM) Troponin-I <0.02 ng/mL <0.02 ng/mL [0.00-0.40 ng/mL] (09/02/16 3:07 AM) (09/01/16 10:30 PM) SPECIAL CHEMISTRY Most recent to [Reference Range]: Hgb A1C [<=5.6 %] 10.3 % *HI* (09/02/16 6:37 AM) DRUG SCREEN Most recent to [Reference Range]: U Amph Scr Negative [Negative] *NA* (09/01/16 10:30 PM) U Brigette Scr Negative [Negative] *NA* (09/01/16 10:30 PM) U Benzodia Scr Negative [Negative] *NA* (09/01/16 10:30 PM) U Cocaine Scr Negative [Negative] *NA* (09/01/16 10:30 PM) U Opiate Scr Negative [Negative] *NA* (09/01/16 10:30 PM) U Phencyc Scr Negative [Negative] *NA* (09/01/16 10:30 PM) U Cannab Scr Negative [Negative] *NA* (09/01/16 10:30 PM) UDS Note See Note (09/01/16 10:30 PM) URINE AND STOOL Most recent to 1 2 oldest [Reference Range]: UA Turbidity [Clear] Clear (09/01/16 10:30 PM) UA Color [Yellow] Light Yellow *NA* (09/01/16 10:30 PM) UA pH [5.0-8.0] 5.0 (09/01/16 10:30 PM) UA Spec Grav 1.016 [<=1.030] (09/01/16 10:30 PM) UA Glucose [Negative Negative mg/dL mg/dL] *NA* (09/01/16 10:30 PM) UA Blood [Negative] Negative (09/01/16 10:30 PM) UA Ketones [Negative Negative mg/dL mg/dL] *NA* (09/01/16 10:30 PM) UA Protein [Negative Negative mg/dL mg/dL] (09/01/16 10:30 PM) UA Urobilinogen <=1.0 mg/dL [0.1-1.0 mg/dL] *NA* (09/01/16 10:30 PM) UA Bili [Negative] Negative *NA* (09/01/16 10:30 PM) UA Leuk Est Negative [Negative] (09/01/16 10:30 PM) UA Nitrite Negative [Negative] (09/01/16 10:30 PM) UA RBC [0-2 /HPF] <1 /HPF (09/01/16 10:30 PM) UA Sq Epi None Seen *NA* (09/01/16 10:30 PM) UA Hyal Cast [0-2 7 /LPF /LPF] *HI* (09/01/16 10:30 PM) UA Mucus [None Seen Few /LPF /LPF] *NA* (09/01/16 10:30 PM) HEMATOLOGY Most recent to 1 2 oldest [Reference Range]: WBC [3.7-10.4 K/CMM] 9.7 K/CMM 12.5 K/CMM (09/02/16 6:37 AM) *HI* (09/01/16 10:30 PM) RBC [4.70-6.10 5.25 M/CMM 5.85 M/CMM M/CMM] (09/02/16 6:37 AM) (09/01/16 10:30 PM) Hgb [14.0-18.0 g/dL] 16.5 g/dL 17.6 g/dL (09/02/16 6:37 AM) (09/01/16 10:30 PM) Hct [42.0-54.0 %] 46.4 % 52.8 % (09/02/16 6:37 AM) (09/01/16 10:30 PM) MCV [80.0-94.0 fL] 88.4 fL 90.2 fL (09/02/16 6:37 AM) (09/01/16 10:30 PM) MCH [27.0-31.0 pg] 31.5 pg 30.0 pg *HI* (09/01/16 10:30 PM) (09/02/16 6:37 AM) MCHC [32.0-36.0 35.6 g/dL 33.3 g/dL g/dL] (09/02/16 6:37 AM) (09/01/16 10:30 PM) RDW [11.5-14.5 %] 14.7 % 14.1 % *HI* (09/01/16 10:30 PM) (09/02/16 6:37 AM) Platelet [133-450 203 K/CMM 189 K/CMM K/CMM] (09/02/16 6:37 AM) (09/01/16 10:30 PM) MPV [7.4-10.4 fL] 10.0 fL 8.6 fL (09/02/16 6:37 AM) (09/01/16 10:30 PM) Segs [45.0-75.0 %] 70.1 % 83.7 % (09/02/16 6:37 AM) *HI* (09/01/16 10:30 PM) Lymphocytes 19.8 % 10.2 % [20.0-40.0 %] *LOW* *LOW* (09/02/16 6:37 AM) (09/01/16 10:30 PM) Monocytes [2.0-12.0 8.7 % 5.6 % %] (09/02/16 6:37 AM) (09/01/16 10:30 PM) Eosinophils [0.0-4.0 1.1 % 0.4 % %] (09/02/16 6:37 AM) (09/01/16 10:30 PM) Basophils [0.0-1.0 0.3 % 0.1 % %] (09/02/16 6:37 AM) (09/01/16 10:30 PM) Segs-Bands # 6.8 K/CMM 10.5 K/CMM [1.5-8.1 K/CMM] (09/02/16 6:37 AM) *HI* (09/01/16 10:30 PM) Lymphocytes # 1.9 K/CMM 1.3 K/CMM [1.0-5.5 K/CMM] (09/02/16 6:37 AM) (09/01/16 10:30 PM) Monocytes # [0.0-0.8 0.8 K/CMM 0.7 K/CMM K/CMM] (09/02/16 6:37 AM) (09/01/16 10:30 PM) Eosinophils # 0.1 K/CMM 0.1 K/CMM [0.0-0.5 K/CMM] (09/02/16 6:37 AM) (09/01/16 10:30 PM) Basophils # [0.0-0.2 0.0 K/CMM 0.0 K/CMM K/CMM] (09/02/16 6:37 AM) (09/01/16 10:30 PM) PT [12.0-14.7 19.5 seconds seconds] *HI* (09/01/16 10:30 PM) INR [0.85-1.17] 1.62 *HI* (09/01/16 10:30 PM) PTT [22.9-35.8 32.7 seconds seconds] (09/01/16 10:30 PM) Immunizations Given and Recorded Vaccine Date Status [...] No Assessment and Plan Extracted from: Title: Medicine H&P * Author: Nic Magana DO Date: 09/02/16 Impression and Plan 50-year-old man with hypertension, type 2 diabetes, chronic systolic CHF, EF of 20%, dilated cardiomyopathy, AICD status who presented to ER today due to chest pain and palpitations were started at 6 PM. Chest pain rule out ACS trend troponins. 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 shirley call in a.m. Recent echocardiogram July 24 and EF 20%, severe global hypokinesis. Atrial fibrillation rate is currently controlled. Continue home medications including anticoagulation: Xarelto Severe dilated cardiomyopathy, systolic CHF with EF 20% continue home medications Diabetes mellitus type 2 check hemoglobin A1c, start insulin sliding scale and Accu-Cheks 4 times daily Hypertension stable, continue home medications once reconciled History of cocaine abuse Patient is full code DVT prophylaxis: SCDs, ambulation
--- OUTSIDE RECORDS SUMMARY | 2018-12-19 01:27 | XMS REPORT | Summary of Care ---
Author Author [facility] Organization [facility] Address Unknown Phone Unavailable Encounter SULY Morales(NILA) [id number] Date(s): 01/20/16 - 02/18/16 [facility] [address] [place] [address]- Discharge Disposition: Home or Self Care Attending Physician: Physician, Non Associated MD Referring Physician: Jazmine Poe NP Vital Signs Most recent to 1 oldest [Reference Range]: Height 175.26 cm (01/20/16 6:38 PM) Weight 106.818 kg (01/20/16 6:38 PM) Body Mass Index 34.78 m2 (01/20/16 6:38 PM) Problem List Condition Effective Dates Status [...] Substance Reaction Severity Status NKDA Active Medications No data available for this section Results No data available for this section Immunizations Given and Recorded Vaccine Date Status [...]
--- OUTSIDE RECORDS SUMMARY | 2018-12-19 01:27 | XMS REPORT | Summary of Care ---
Author Author [facility] Organization [facility] Address Unknown Phone Unavailable Encounter HQ Carmen(NILA) [id number] Date(s): 07/23/16 - 07/26/16 [facility] [address] [place] [address]- [phone] Discharge Disposition: Home or Self Care Attending Physician: Zca Garcia MD Admitting Physician: Zac Garcia MD Vital Signs 1 2 3 Most recent to oldest [Reference Range]: 172.72 cm (07/24/16 1:18 AM) Height 98.2 DegF (07/26/16 11:20 AM) 97.5 DegF (07/26/16 7:12 AM) 97.5 DegF (07/26/16 4:38 AM) Temperature Oral [96.4-99.1 DegF] 111/85 mmHg (07/26/16 11:20 AM) 105/62 mmHg (07/26/16 7:12 AM) 102/71 mmHg (07/26/16 4:38 AM) Blood Pressure [90-140/60-90 mmHg] 18 BRMIN (07/26/16 11:20 AM) 18 BRMIN (07/26/16 7:12 AM) 18 BRMIN (07/26/16 4:38 AM) Respiratory Rate [14-20 BRMIN] 62 bpm (07/26/16 11:20 AM) 61 bpm (07/26/16 7:12 AM) 75 bpm (07/26/16 4:38 AM) Peripheral Pulse Rate [60-100 bpm] 99 kg (07/24/16 1:18 AM) 104.545 kg (07/23/16 8:44 PM) Weight 33.19 m2 (07/24/16 1:18 AM) Body Mass Index Problem List Condition Effective Dates Status Health Status Informant [D]Anterior chest 9/12/12 Active wall pain(Confirmed) Anxiety(Confirmed) Resolved BP+ - [...] Substance Reaction Severity Status NKDA Active Medications acetaminophen-hydrocodone 325 mg-5 mg oral tablet 2 tab, Route: PO, Drug Form: TAB, Dosing Weight 104.545, kg, Q6H, PRN Pain Score 4-6, Start date: 07/24/16 0:03:00 CDT, Duration: 30 day, Stop date: 08/23/16 0: 02:00 CDT Notes: (Same as: [place] 325/5) Do not exceed 4gm/day of acetaminophen. Start Date: 07/24/16 Stop Date: 07/26/16 Status: Discontinued Ambien 5 mg, 0.5 tab, Route: PO, Drug form: TAB, Bedtime, Dosing Weight 99, kg, PRN Sle ep, Start date: 07/25/16 12:20:00 CDT, Duration: 30 day, Stop date: 08/24/16 12: 19:00 CDT Notes: (Same As: Ambien) Start Date: 07/25/16 Stop Date: 07/26/16 Status: Discontinued AMIODarone 200 mg, 1 tab, Route: PO, Drug form: TAB, Q12H, Dosing Weight 104.545, kg, Start date: 07/24/16 9:00:00 CDT, Duration: 30 day, Stop date: 08/22/16 21:00:00 CDT Notes: (Same as: Cordarone) Start Date: 07/24/16 Stop Date: 07/26/16 Status: Discontinued AMIODarone + Dextrose 5% in Water IV 100 mL 150 mg, Route: IVPB, ONCE, Dosing Weight 104.545, kg, Start date: 07/24/16 0:03: 00 CDT, Stop date: 07/24/16 0:03:00 CDT Start Date: 07/24/16 Stop Date: 07/24/16 Status: Discontinued ARIPiprazole 5 mg, 1 tab, Route: PO, Drug form: TAB, Daily, Dosing Weight 99, kg, Start date: 07/26/16 9:00:00 CDT, Duration: 30 day, Stop date: 08/24/16 9:00:00 CDT Notes: Non-Formulary Drug. (Same as: Abilify) Start Date: 07/26/16 Stop Date: 07/26/16 Status: Discontinued ARIPiprazole 5 mg, PO, Daily, 0 Refill(s) Start Date: 07/24/16 Status: Ordered aspirin 324 mg, 4 tab, Route: CHEW, Drug form: CHEWTAB, ONCE, Dosing Weight 104.545, kg, Priority: STAT, Start date: 07/23/16 23:08:00 CDT, Stop date: 07/23/16 23:08:00 CDT Notes: Take with food. Start Date: 07/23/16 Stop Date: 07/23/16 Status: Completed aspirin 325 mg tablet, enteric coated 325 mg, 1 tab, Route: PO, Drug form: ECTAB, Daily, Dosing Weight 104.545, kg, St art date: 07/24/16 9:00:00 CDT, Duration: 30 day, Stop date: 08/22/16 9:00:00 CD T Notes: (Do Not Crush) Do not crush or chew. Start Date: 07/24/16 Stop Date: 07/26/16 Status: Discontinued atorvastatin 10 mg, PO, Daily, 0 Refill(s) Start Date: 07/24/16 Status: Ordered atorvastatin 10 mg, 1 tab, Route: PO, Drug form: TAB, Bedtime, Dosing Weight 104.545, kg, Sta rt date: 07/24/16 21:00:00 CDT, Duration: 30 day, Stop date: 08/22/16 21:00:00 C DT Notes: (Same As: Lipitor) Start Date: 07/24/16 Stop Date: 07/24/16 Status: Canceled BD Normal Saline Flush 10 mL, Route: IVP, Drug Form: INJ, PRN, PRN Line Flush, Start date: 07/23/16 21: 20:00 CDT, Duration: 30 day, Stop date: 08/22/16 21:19:00 CDT Notes: (Same as: BD Posiflush) Start Date: 07/23/16 Stop Date: 07/26/16 Status: Discontinued clonazePAM 1 mg, 1 tab, Route: PO, Drug form: TAB, Daily, Dosing Weight 99, kg, Start date: 07/26/16 9:00:00 CDT, Duration: 30 day, Stop date: 08/24/16 9:00:00 CDT Notes: (Same As: KlonoPIN) Start Date: 07/26/16 Stop Date: 07/26/16 Status: Discontinued clonazePAM 1 mg, PO, Daily, 0 Refill(s) Start Date: 07/24/16 Status: Ordered Cogentin 1 mg, 1 tab, Route: PO, Drug form: TAB, Bedtime, Dosing Weight 99, kg, Start james e: 07/25/16 21:00:00 CDT, Duration: 30 day, Stop date: 08/23/16 21:00:00 CDT Notes: (Same As: Cogentin) Start Date: 07/25/16 Stop Date: 07/26/16 Status: Discontinued Colace 100 mg oral capsule 100 mg, 1 cap, Route: PO, Drug form: CAP, BID, Dosing Weight 104.545, kg, PRN Co nstipation, Start date: 07/24/16 0:03:00 CDT, Duration: 30 day, Stop date: 08/23 0:02:00 CDT Notes: (Same as: Colace) (Do Not Crush) Start Date: 07/24/16 Stop Date: 07/26/16 Status: Discontinued Coreg 3.125 mg, Route: PO, Drug form: TAB, Daily, Dosing Weight 99, kg, Start date: 9:00:00 CDT, Duration: 30 day, Stop date: 08/23/16 9:00:00 CDT Start Date: 07/25/16 Stop Date: 07/24/16 Status: Canceled Dextrose 50% Syringe 12.5 gm, 25 mL, Route: IVP, Drug Form: INJ, Dosing Weight 104.545, kg, PRN, PRN Blood Glucose Results, Start date: 07/24/16 0:05:00 CDT, Duration: 30 day, Stop date: 08/23/16 0:04:00 CDT Start Date: 07/24/16 Stop Date: 07/26/16 Status: Discontinued Dextrose 50% Syringe 25 gm, 50 mL, Route: IVP, Drug Form: INJ, Dosing Weight 104.545, kg, PRN, PRN Bl ood Glucose Results, Start date: 07/24/16 0:05:00 CDT, Duration: 30 day, Stop da te: 08/23/16 0:04:00 CDT Start Date: 07/24/16 Stop Date: 07/26/16 Status: Discontinued diltiazem 10 mg, 2 mL, Route: IVP, Drug form: INJ, ONCE, Dosing Weight 104.545, kg, Priori ty: STAT, Start date: 07/23/16 22:34:00 CDT, Stop date: 07/23/16 22:34:00 CDT Notes: (Same as: Cardizem) Start Date: 07/23/16 Stop Date: 07/23/16 Status: Completed diltiazem 30 mg, 1 tab, Route: PO, Drug form: TAB, Q6H, Dosing Weight 104.545, kg, Priorit y: STAT, Start date: 07/24/16 0:03:00 CDT, Duration: 30 day, Stop date: 08/23/16 0:00:00 CDT Notes: (Same as: Cardizem) Before meals Start Date: 07/24/16 Stop Date: 07/24/16 Status: Discontinued DuoNeb inhalation solution 3 mL, Route: NEB, Drug Form: SOLN, Dosing Weight 104.545, kg, RQID, PRN Shortnes s of breath, Start date: 07/24/16 0:03:00 CDT, Duration: 30 day, Stop date: 07/27 0:02:00 CDT Notes: (Same as: Duoneb) Start Date: 07/24/16 Stop Date: 07/26/16 Status: Discontinued glipiZIDE 10 mg, 1 tab, Route: PO, Drug form: TAB, Before Breakfast, Dosing Weight 99, kg, Start date: 07/26/16 7:30:00 CDT, Duration: 30 day, Stop date: 08/24/16 7:30:00 CDT Notes: (Same as: Glucotrol) 30 min before meals. Start Date: 07/26/16 Stop Date: 07/26/16 Status: Discontinued glipiZIDE 10 mg, PO, Daily, 0 Refill(s) Start Date: 07/24/16 Status: Ordered glipiZIDE 5 mg oral tablet 5 mg, 1 tab, Route: PO, Drug form: TAB, Daily, Dosing Weight 99, kg, Priority: N OW, Start date: 07/24/16 12:21:00 CDT, Duration: 30 day, Stop date: 08/23/16 9:0 0:00 CDT Notes: (Same as: Glucotrol) 30 min before meals. Start Date: 07/24/16 Stop Date: 07/25/16 Status: Discontinued glucagon 1 mg, Route: IM, Drug form: PDR/INJ, PRN, Dosing Weight 104.545, kg, PRN Blood G lucose Results, Start date: 07/24/16 0:05:00 CDT, Duration: 30 day, Stop date: 0 08/23/16 0:04:00 CDT Start Date: 07/24/16 Stop Date: 07/26/16 Status: Discontinued heparin 5,000 unit, 1 mL, Route: SUB-Q, Drug form: INJ, Q12H, Dosing Weight 104.545, kg, Start date: 07/24/16 9:00:00 CDT, Duration: 30 day, Stop date: 08/22/16 21:00:0 0 CDT Notes: porcine heparin Start Date: 07/24/16 Stop Date: 07/25/16 Status: Discontinued hydrALAZINE 20 mg, 1 mL, Route: IVP, Drug form: INJ, Q4H, Dosing Weight 104.545, kg, PRN See Nurse's Notes, Start date: 07/24/16 0:03:00 CDT, Duration: 30 day, Stop date: 0 08/23/16 0:02:00 CDT, systolic > 160 Notes: (Same as: Apresoline)Push over 5 minutes Start Date: 07/24/16 Stop Date: 07/26/16 Status: Discontinued insulin aspart 6 unit, 0.06 mL, Route: SUB-Q, Drug form: SOLN, TID-Before Meals, Dosing Weight 104.545, kg, PRN Blood Glucose Results, Start date: 07/24/16 0:05:00 CDT, Durati on: 30 day, Stop date: 08/23/16 0:04:00 CDT Notes: Roll in palms of hands gently; Do not shake vigorously. (Same as: Mallorie Castellanos)"single patient use only"WASTE: F/P - Black; E - Municipal Trash Bin Stable f or 28 days at room temperature.Expires in days from Date Start Date: 07/24/16 Stop Date: 07/26/16 Status: Discontinued insulin aspart 9 unit, 0.09 mL, Route: SUB-Q, Drug form: SOLN, TID-Before Meals, Dosing Weight 104.545, kg, PRN Blood Glucose Results, Start date: 07/24/16 0:05:00 CDT, Durati on: 30 day, Stop date: 08/23/16 0:04:00 CDT Notes: Roll in palms of hands gently; Do not shake vigorously. (Same as: Mallorie Castellanos)"single patient use only"WASTE: F/P - Black; E - Municipal Trash Bin Stable f or 28 days at room temperature.Expires in days from Date Start Date: 07/24/16 Stop Date: 07/26/16 Status: Discontinued insulin aspart 15 unit, 0.15 mL, Route: SUB-Q, Drug form: SOLN, TID-Before Meals, Dosing Weight 104.545, kg, PRN Blood Glucose Results, Start date: 07/24/16 0:05:00 CDT, Durat ion: 30 day, Stop date: 08/23/16 0:04:00 CDT Notes: Roll in palms of hands gently; Do not shake vigorously. (Same as: Mallorie Castellanos)"single patient use only"WASTE: F/P - Black; E - Municipal Trash Bin Stable f or 28 days at room temperature.Expires in days from Date Start Date: 07/24/16 Stop Date: 07/26/16 Status: Discontinued insulin aspart 12 unit, 0.12 mL, Route: SUB-Q, Drug form: SOLN, TID-Before Meals, Dosing Weight 104.545, kg, PRN Blood Glucose Results, Start date: 07/24/16 0:05:00 CDT, Durat ion: 30 day, Stop date: 08/23/16 0:04:00 CDT Notes: Roll in palms of hands gently; Do not shake vigorously. (Same as: Mallorie Castellanos)"single patient use only"WASTE: F/P - Black; E - Municipal Trash Bin Stable f or 28 days at room temperature.Expires in days from Date Start Date: 07/24/16 Stop Date: 07/26/16 Status: Discontinued insulin aspart 3 unit, 0.03 mL, Route: SUB-Q, Drug form: SOLN, TID-Before Meals, Dosing Weight 104.545, kg, PRN Blood Glucose Results, Start date: 07/24/16 0:05:00 CDT, Durati on: 30 day, Stop date: 08/23/16 0:04:00 CDT Notes: Roll in palms of hands gently; Do not shake vigorously. (Same as: Mallorie Castellanos)"single patient use only"WASTE: F/P - Black; E - Municipal Trash Bin Stable f or 28 days at room temperature.Expires in days from Date Start Date: 07/24/16 Stop Date: 07/26/16 Status: Discontinued insulin aspart 4 unit, 0.04 mL, Route: SUB-Q, Drug form: SOLN, Bedtime, Dosing Weight 104.545, kg, PRN Blood Glucose Results, Start date: 07/24/16 0:05:00 CDT, Duration: 30 da y, Stop date: 08/23/16 0:04:00 CDT Notes: Roll in palms of hands gently; Do not shake vigorously. (Same as: Mallorie Castellanos)"single patient use only"WASTE: F/P - Black; E - Municipal Trash Bin Stable f or 28 days at room temperature.Expires in days from Date Start Date: 07/24/16 Stop Date: 07/26/16 Status: Discontinued insulin aspart 6 unit, 0.06 mL, Route: SUB-Q, Drug form: SOLN, Bedtime, Dosing Weight 104.545, kg, PRN Blood Glucose Results, Start date: 07/24/16 0:05:00 CDT, Duration: 30 da y, Stop date: 08/23/16 0:04:00 CDT Notes: Roll in palms of hands gently; Do not shake vigorously. (Same as: Mallorie Castellanos)"single patient use only"WASTE: F/P - Black; E - Municipal Trash Bin Stable f or 28 days at room temperature.Expires in days from Date Start Date: 07/24/16 Stop Date: 07/26/16 Status: Discontinued insulin aspart 8 unit, 0.08 mL, Route: SUB-Q, Drug form: SOLN, Bedtime, Dosing Weight 104.545, kg, PRN Blood Glucose Results, Start date: 07/24/16 0:05:00 CDT, Duration: 30 da y, Stop date: 08/23/16 0:04:00 CDT Notes: Roll in palms of hands gently; Do not shake vigorously. (Same as: Mallorie Castellanos)"single patient use only"WASTE: F/P - Black; E - Municipal Trash Bin Stable f or 28 days at room temperature.Expires in days from Date Start Date: 07/24/16 Stop Date: 07/26/16 Status: Discontinued insulin aspart 10 unit, 0.1 mL, Route: SUB-Q, Drug form: SOLN, Bedtime, Dosing Weight 104.545, kg, PRN Blood Glucose Results, Start date: 07/24/16 0:05:00 CDT, Duration: 30 da y, Stop date: 08/23/16 0:04:00 CDT Notes: Roll in palms of hands gently; Do not shake vigorously. (Same as: NovoLO G)"single patient use only"WASTE: F/P - Black; E - Municipal Trash Bin Stable f or 28 days at room temperature.Expires in days from Date Start Date: 07/24/16 Stop Date: 07/26/16 Status: Discontinued Insulin regular 4 unit, 0.04 mL, Route: IVP, Drug form: SOLN, ONCE, Dosing Weight 104.545, kg, P riority: STAT, Start date: 07/23/16 22:47:00 CDT, Stop date: 07/23/16 22:47:00 C DT Notes: (Same as: Humulin R) Roll in palms of hands gently; Do not shake vigorou sly. "single patient use only"(Restricted to patients requiring a dose > 60 units)WASTE: F/P - Black; E - Municipal Trash Bin Stable for 28 days at room temperatureExpires in days from Date Start Date: 07/23/16 Stop Date: 07/23/16 Status: Completed lisinopril 5 mg, PO, Daily, 0 Refill(s) Start Date: 07/24/16 Status: Ordered metFORMIN 500 mg, PO, Daily, 0 Refill(s) Start Date: 07/24/16 Status: Ordered metFORMIN 500 mg oral tablet 500 mg, Route: PO, Drug form: TAB, BID, Dosing Weight 99, kg, Priority: NOW, Sta rt date: 07/24/16 12:21:00 CDT, Duration: 30 day, Stop date: 08/23/16 9:00:00 CD T Start Date: 07/24/16 Stop Date: 07/24/16 Status: Discontinued metolazone 2.5 mg, PO, qWeek, # 15 tab, 0 Refill(s) Start Date: 07/24/16 Status: Ordered morphine Sulfate 2 mg, 1 mL, Route: IVP, Drug form: INJ, Q15Min, Dosing Weight 104.545, kg, PRN C hest Pain, Start date: 07/24/16 0:03:00 CDT, Duration: 2 doses or times, Stop da te: Limited # of times Notes: (Same as:MORPhine Sulfate) Start Date: 07/24/16 Stop Date: 07/26/16 Status: Discontinued ondansetron 4 mg, 1 tab, Route: PO, Drug form: TAB, Q8H, Dosing Weight 104.545, kg, PRN Naus ea & Vomiting, Start date: 07/24/16 0:03:00 CDT, Duration: 30 day, Stop date: 08/23/16 0:02:00 CDT Notes: (Same as: Zofran) Start Date: 07/24/16 Stop Date: 07/26/16 Status: Discontinued pantoprazole 40 mg, PO, Daily, # 30 tab, 0 Refill(s) Start Date: 07/24/16 Stop Date: 08/23/16 Status: Ordered pantoprazole 40 mg, Route: IVP, Drug form: INJ, Before Dinner, Dosing Weight 104.545, kg, Sta rt date: 07/24/16 0:12:00 CDT, Duration: 30 day, Stop date: 08/22/16 16:30:00 CD T Notes: For IV push reconstitute with 10 ml 0.9% sodium chloride and push over 2 minutes. (Same as: Protonix) Start Date: 07/24/16 Stop Date: 07/26/16 Status: Discontinued potassium chloride 20 mEq, 1 tab, Route: PO, Drug form: ERTAB, ONCE, Dosing Weight 99, kg, Start da te: 07/24/16 10:44:00 CDT, Stop date: 07/24/16 10:44:00 CDT Notes: (Same as: K-Dur 20)"Do Not Crush" With food and full glass of water Start Date: 07/24/16 Stop Date: 07/24/16 Status: Completed potassium chloride 20 mEq oral tablet, extended release 20 mEq, 1 tab, Route: PO, Drug form: ERTAB, ONCE, Dosing Weight 99, kg, Start da te: 07/25/16 7:45:00 CDT, Stop date: 07/25/16 7:45:00 CDT Notes: (Same as: K-Dur 20)"Do Not Crush" With food and full glass of water Start Date: 07/25/16 Stop Date: 07/25/16 Status: Completed potassium chloride 20 mEq/15 mL oral liquid 40 mEq, 30 mL, Route: PO, Drug form: LIQ, ONCE, Dosing Weight 99, kg, Priority: NOW, Start date: 07/25/16 11:39:00 CDT, Stop date: 07/25/16 11:39:00 CDT Notes: (Same as: Potassium Chloride) Start Date: 07/25/16 Stop Date: 07/25/16 Status: Completed potassium chloride 20 mEq/15 mL oral liquid 40 mEq, 30 mL, Route: PO, Drug form: LIQ, ONCE, Dosing Weight 99, kg, Start date : 07/24/16 11:28:00 CDT, Stop date: 07/24/16 11:28:00 CDT Start Date: 07/24/16 Stop Date: 07/24/16 Status: Discontinued rivaroxaban 20 mg, 1 tab, Route: PO, Drug form: TAB, Daily, Dosing Weight 99, kg, Start date : 07/26/16 9:00:00 CDT, Duration: 30 day, Stop date: 08/24/16 9:00:00 CDT Notes: (Same as: Xarelto)Administer with food Start Date: 07/26/16 Stop Date: 07/26/16 Status: Discontinued rivaroxaban 20 mg, PO, Daily, 0 Refill(s) Start Date: 07/24/16 Status: Ordered Robitussin 100 mg/5 mL oral liquid 100 mg, 5 mL, Route: PO, Drug form: SYRP, Q4H, Dosing Weight 104.545, kg, PRN Se e Nurse's Notes, Start date: 07/24/16 0:03:00 CDT, Duration: 30 day, Stop date: 08/23/16 0:02:00 CDT, as needed for congestion, cough Notes: (Same as: Robitussin) Start Date: 07/24/16 Stop Date: 07/26/16 Status: Discontinued Saline Flush 0.9% 10 mL, Route: IVP, Drug Form: INJ, Dosing Weight 104.545, kg, PRN, PRN Line Flus h, Start date: 07/23/16 21:15:00 CDT, Duration: 30 day, Stop date: 08/22/16 21:1 4:00 CDT Start Date: 07/23/16 Stop Date: 07/23/16 Status: Discontinued Saline Flush 0.9% 10 ml, Route: IVP, Drug Form: INJ, Dosing Weight 104.545, kg, PRN, PRN Line Flus h, Start date: 07/24/16 0:03:00 CDT, Duration: 30 day, Stop date: 08/23/16 0:02: 00 CDT Start Date: 07/24/16 Stop Date: 07/24/16 Status: Discontinued Saline Flush 0.9% 10 ml, Route: IVP, Drug Form: INJ, Dosing Weight 104.545, kg, Q12H, Start date: 07/24/16 9:00:00 CDT, Duration: 30 day, Stop date: 08/22/16 21:00:00 CDT Notes: (Same as: BD Posiflush) Start Date: 07/24/16 Stop Date: 07/26/16 Status: Discontinued sodium bicarbonate 650 mg oral tablet 650 mg, 1 tab, Route: PO, Drug form: TAB, TID, Dosing Weight 99, kg, Priority: N OW, Start date: 07/24/16 11:29:00 CDT, Duration: 2 day, Stop date: 07/26/16 9:00 :00 CDT Notes: "Dissolve tablet in a glass of water prior to oral administration. STOMA CH WARNING: To avoid serious injury, do not take until tablet is completely diss olved. It is very important not to take this product when overly full from food or drink." Start Date: 07/24/16 Stop Date: 07/25/16 Status: Discontinued Sodium Chloride 0.9% (Bolus) IV 1,000 mL, 1,000 ml/hr, Infuse Over: 1 hr, Route: IV, ONCE, Priority: STAT, Dosin g Weight 104.545 kg, Start date: 07/24/16 0:05:00 CDT, Duration: 1 doses or time s, Stop date: 07/24/16 0:05:00 CDT Start Date: 07/24/16 Stop Date: 07/24/16 Status: Completed sodium chloride 0.9% 1000 ml INJ 1,000 mL 1,000 mL, Rate: 60 ml/hr, Infuse over: 16.7 hr, Route: IV, Dosing Weight 104.545 kg, Total Volume: 1,000, Start date: 07/24/16 0:03:00 CDT, Stop date: 08/23/16 0:02:00 CDT Start Date: 07/24/16 Stop Date: 07/26/16 Status: Discontinued Sodium Chloride 0.9% IV 250 mL, Route: IVPB, Start date: 07/23/16 21:20:00 CDT, Duration: 30 day, Stop d ate: 08/22/16 21:19:00 CDT, PRN Line Flush Start Date: 07/23/16 Stop Date: 07/26/16 Status: Discontinued sodium phosphate 15 mmol, 250 mL, Route: IVPB, Drug form: INJ, ONCE, Dosing Weight 99, kg, PRN Ab normal Lab Result, Priority: NOW, Start date: 07/25/16 11:39:00 CDT Start Date: 07/25/16 Stop Date: 07/25/16 Status: Completed torsemide 20 mg, PO, Daily, # 20 tab, 0 Refill(s) Start Date: 07/24/16 Status: Ordered trazodone 50 mg, 1 tab, Route: PO, Drug form: TAB, Bedtime, Dosing Weight 104.545, kg, PRN Insomnia, Start date: 07/24/16 0:03:00 CDT, Duration: 30 day, Stop date: 0:02:00 CDT Notes: (Same As: Veto) Start Date: 07/24/16 Stop Date: 07/26/16 Status: Discontinued Tylenol 650 mg, 2 tab, Route: PO, Drug form: TAB, Q6H, Dosing Weight 104.545, kg, PRN Se e Nurse's Notes, Start date: 07/24/16 0:03:00 CDT, Duration: 30 day, Stop date: 08/23/16 0:02:00 CDT, Pain 1-3/Temp > 100.4 F, headache Notes: Do not exceed 4 gm/day. (Same as: Tylenol) Start Date: 07/24/16 Stop Date: 07/26/16 Status: Discontinued Results ELECTROLYTES 1 2 3 Most recent to oldest [Reference Range]: 140 mEq/L (07/26/16 5:45 AM) 138 mEq/L (07/25/16 5:20 AM) 134 mEq/L *LOW* (07/24/16 4:13 AM) Sodium Lvl [135-145 mEq/L] 4.5 mEq/L (07/26/16 5:45 AM) 3.3 mEq/L *LOW* (07/25/16 5:20 AM) 3.1 mEq/L *LOW* (07/24/16 4:13 AM) Potassium Lvl [3.5-5.1 mEq/L] 110 mEq/L *HI* (07/26/16 5:45 AM) 103 mEq/L (07/25/16 5:20 AM) 96 mEq/L (07/24/16 4:13 AM) Chloride Lvl [95-109 mEq/L] 23 mEq/L *LOW* (07/26/16 5:45 AM) 26 mEq/L (07/25/16 5:20 AM) 22 mEq/L *LOW* (07/24/16 4:13 AM) CO2 [24-32 mEq/L] 11.5 mEq/L (07/26/16 5:45 AM) 12.3 mEq/L (07/25/16 5:20 AM) 19.1 mEq/L (07/24/16 4:13 AM) AGAP [10.0-20.0 mEq/L] CHEM PANEL 1 2 3 Most recent to oldest [Reference Range]: 1.10 mg/dL (07/26/16 5:45 AM) 1.30 mg/dL (07/25/16 5:20 AM) 2.40 mg/dL *HI* (07/24/16 4:13 AM) Creatinine Lvl [0.50-1.40 mg/dL] 77 mL/min/1.73m2 1 *NA* (07/26/16 5:45 AM) 63 mL/min/1.73m2 2 *NA* (07/25/16 5:20 AM) 30 mL/min/1.73m2 3 *NA* (07/24/16 4:13 AM) eGFR 21 mg/dL (07/26/16 5:45 AM) 27 mg/dL *HI* (07/25/16 5:20 AM) 39 mg/dL *HI* (07/24/16 4:13 AM) BUN [7-22 mg/dL] 19 (07/26/16 5:45 AM) 21 (07/25/16 5:20 AM) 16 (07/24/16 4:13 AM) B/C Ratio [6-25] 131 mg/dL *HI* (07/26/16 5:45 AM) 180 mg/dL *HI* (07/25/16 5:20 AM) 270 mg/dL *HI* (07/24/16 4:13 AM) Glucose Lvl [70-99 mg/dL] 6.4 g/dL (07/26/16 5:45 AM) 5.9 g/dL *LOW* (07/25/16 5:20 AM) 9.0 g/dL *HI* (07/24/16 4:13 AM) Total Protein [6.4-8.4 g/dL] 3.3 g/dL *LOW* (07/26/16 5:45 AM) 3.0 g/dL *LOW* (07/25/16 5:20 AM) 3.7 g/dL (07/24/16 4:13 AM) Albumin Lvl [3.5-5.0 g/dL] 3.1 g/dL (07/26/16 5:45 AM) 2.9 g/dL (07/25/16 5:20 AM) 5.3 g/dL *HI* (07/24/16 4:13 AM) Globulin [2.7-4.2 g/dL] 1.1 (07/26/16 5:45 AM) 1.0 (07/25/16 5:20 AM) 0.7 (07/24/16 4:13 AM) A/G Ratio [0.7-1.6] 8.2 mg/dL *LOW* (07/26/16 5:45 AM) 7.8 mg/dL *LOW* (07/25/16 5:20 AM) 8.4 mg/dL *LOW* (07/24/16 4:13 AM) Calcium Lvl [8.5-10.5 mg/dL] 2.1 mg/dL *LOW* (07/25/16 5:20 AM) Phosphorus [2.5-4.5 mg/dL] 2.2 mg/dL (07/26/16 5:45 AM) 2.0 mg/dL (07/25/16 5:20 AM) 2.1 mg/dL (07/24/16 4:13 AM) Magnesium Lvl [1.8-2.4 mg/dL] 109 unit/L *HI* (07/26/16 5:45 AM) 87 unit/L *HI* (07/25/16 5:20 AM) 72 unit/L *HI* (07/24/16 4:13 AM) ALT [0-65 unit/L] 182 unit/L *HI* (07/26/16 5:45 AM) 219 unit/L *HI* (07/25/16 5:20 AM) 231 unit/L *HI* (07/24/16 4:13 AM) AST [0-37 unit/L] 109 unit/L (07/26/16 5:45 AM) 119 unit/L (07/25/16 5:20 AM) 96 unit/L (07/24/16 4:13 AM) Alk Phos [39-136 unit/L] 0.4 mg/dL (07/26/16 5:45 AM) 0.5 mg/dL (07/25/16 5:20 AM) 1.0 mg/dL (07/24/16 4:13 AM) Bili Total [0.2-1.3 mg/dL] 185 unit/L (07/23/16 10:00 PM) Lipase Lvl [73-393 unit/L] 1Result Comment: The eGFR is calculated using [...] be mul tiplied by the estimated BMI. 3Result Comment: The eGFR is calculated using the [...] 3 Most recent to oldest [Reference Range]: 3802 unit/L *HI* (07/26/16 5:45 AM) 6880 unit/L *HI* (07/25/16 5:20 AM) 77149 unit/L *HI* (07/24/16 12:14 PM) Total CK [12-191 unit/L] 12.1 ng/mL *HI* (07/26/16 5:45 AM) 31.0 ng/mL *HI* (07/24/16 12:14 PM) 28.7 ng/mL *HI* (07/24/16 4:13 AM) CK MB [0.5-3.6 ng/mL] 0.3 (07/24/16 12:14 PM) 0.3 (07/23/16 10:00 PM) CK MB Index [0.0-2.5] 0.12 ng/mL (07/24/16 12:14 PM) 0.25 ng/mL (07/24/16 4:13 AM) 0.34 ng/mL (07/23/16 10:00 PM) Troponin-I [0.00-0.40 ng/mL] 881 pg/mL *HI* (07/23/16 10:00 PM) BNP [<=100 pg/mL] LIPIDS 1 2 3 Most recent to oldest [Reference Range]: 5.00 (07/24/16 4:13 AM) CHD Risk [4.00-7.30] 130 mg/dL (07/24/16 4:13 AM) Chol [<=199 mg/dL] 189 mg/dL *HI* (07/24/16 4:13 AM) Trig [<=149 mg/dL] 26 mg/dL *LOW* (07/24/16 4:13 AM) HDL [>=61 mg/dL] 66 mg/dL (07/24/16 4:13 AM) LDL (Calculated) [<=99 mg/dL] 38 *NA* (07/24/16 4:13 AM) VLDL DRUG SCREEN 1 2 3 Most recent to oldest [Reference Range]: Negative *NA* (07/24/16 12:27 AM) U Amph Scr [Negative] Negative *NA* (07/24/16 12:27 AM) U Brigette Scr [Negative] Negative *NA* (07/24/16 12:27 AM) U Benzodia Scr [Negative] Positive *ABN* (07/24/16 12:27 AM) U Cocaine Scr [Negative] Negative *NA* (07/24/16 12:27 AM) U Opiate Scr [Negative] Negative *NA* (07/24/16 12:27 AM) U Phencyc Scr [Negative] Negative *NA* (07/24/16 12:27 AM) U Cannab Scr [Negative] See Note (07/24/16 12:27 AM) UDS Note URINE CHEM 1 2 3 Most recent to oldest [Reference Range]: 282.00 mg/dL *NA* (07/24/16 12:27 AM) U Creatinine 178.5 mg/dL *NA* (07/24/16 12:27 AM) U Protein 0.6 *NA* (07/24/16 12: AM) U Prot/Creat 724 mg/dL *NA* (07/24/16 12: AM) U Urea 19 mEq/L *NA* (07/24/16 12: AM) U Sodium 63.2 mEq/L *NA* (07/24/16 12: AM) U Potassium <10 mEq/L *NA* (07/24/16 12: AM) U Chloride 620 mOsm/kg (07/24/16 12: AM) U Osmolality [300-800 mOsm/kg] None Seen (07/24/16 12: AM) U Eos [None Seen] URINE AND STOOL 1 2 3 Most recent to oldest [Reference Range]: Moderate *ABN* (07/24/16 12: AM) UA Turbidity [Clear] Yellow *NA* (07/24/16 12: AM) UA Color 5.0 (07/24/16 12: AM) UA pH [5.0-8.0] 1.022 (07/24/16 12: AM) UA Spec Grav [<=1.030] 500 mg/dL *ABN* (07/24/16 12:27 AM) UA Glucose [Negative mg/dL] Large *ABN* (07/24/16 12:27 AM) UA Blood [Negative] Negative mg/dL *NA* (07/24/16 12: AM) UA Ketones [Negative mg/dL] 100 mg/dL *ABN* (07/24/16 12: AM) UA Protein [Negative mg/dL] <=1.0 mg/dL *NA* (07/24/16 12: AM) UA Urobilinogen [0.1-1.0 mg/dL] Negative *NA* (07/24/16 12:27 AM) UA Bili [Negative] Negative (07/24/16 12:27 AM) UA Leuk Est [Negative] Negative (07/24/16 12: AM) UA Nitrite [Negative] 21 /HPF *HI* (07/24/16 12:27 AM) UA WBC [0-5 /HPF] Occasional /HPF *NA* (07/24/16 12:27 AM) UA Bacteria [None Seen /HPF] Many /LPF *ABN* (07/24/16 12:27 AM) UA Sq Epi [Few /LPF] 38 /LPF *HI* (07/24/16 12:27 AM) UA Hyal Cast [0-2 /LPF] Few /LPF *NA* (07/24/16 12:27 AM) UA Mucus [None Seen /LPF] 3 /LPF *NA* (07/24/16 12:27 AM) UA Gran Cast HEMATOLOGY 1 2 3 Most recent to oldest [Reference Range]: 7.3 K/CMM (07/26/16 5:45 AM) 6.8 K/CMM (07/25/16 5:20 AM) 14.7 K/CMM *HI* (07/24/16 4:13 AM) WBC [3.7-10.4 K/CMM] 4.89 M/CMM (07/26/16 5:45 AM) 4.87 M/CMM (07/25/16 5:20 AM) 5.12 M/CMM (07/24/16 4:13 AM) RBC [4.70-6.10 M/CMM] 14.9 g/dL (07/26/16 5:45 AM) 15.0 g/dL (07/25/16 5:20 AM) 15.9 g/dL (07/24/16 4:13 AM) Hgb [14.0-18.0 g/dL] 44.5 % (07/26/16 5:45 AM) 43.4 % (07/25/16 5:20 AM) 45.6 % (07/24/16 4:13 AM) Hct [42.0-54.0 %] 90.9 fL (07/26/16 5:45 AM) 89.1 fL (07/25/16 5:20 AM) 89.1 fL (07/24/16 4:13 AM) MCV [80.0-94.0 fL] 30.4 pg (07/26/16 5:45 AM) 30.9 pg (07/25/16 5:20 AM) 31.0 pg (07/24/16 4:13 AM) MCH [27.0-31.0 pg] 33.5 g/dL (07/26/16 5:45 AM) 34.7 g/dL (07/25/16 5:20 AM) 34.8 g/dL (07/24/16 4:13 AM) MCHC [32.0-36.0 g/dL] 13.2 % (07/26/16 5:45 AM) 13.4 % (07/25/16 5:20 AM) 13.7 % (07/24/16 4:13 AM) RDW [11.5-14.5 %] 139 K/CMM (07/26/16 5:45 AM) 129 K/CMM *LOW* (07/25/16 5:20 AM) 169 K/CMM (07/24/16 4:13 AM) Platelet [133-450 K/CMM] 9.0 fL (07/26/16 5:45 AM) 9.1 fL (07/25/16 5:20 AM) 9.2 fL (07/24/16 4:13 AM) MPV [7.4-10.4 fL] 68.5 % (07/26/16 5:45 AM) 70.4 % (07/25/16 5:20 AM) 75.8 % *HI* (07/24/16 4:13 AM) Segs [45.0-75.0 %] 21.0 % (07/26/16 5:45 AM) 19.0 % *LOW* (07/25/16 5:20 AM) 12.0 % *LOW* (07/24/16 4:13 AM) Lymphocytes [20.0-40.0 %] 7.9 % (07/26/16 5:45 AM) 8.2 % (07/25/16 5:20 AM) 11.8 % (07/24/16 4:13 AM) Monocytes [2.0-12.0 %] 2.3 % (07/26/16 5:45 AM) 2.1 % (07/25/16 5:20 AM) 0.3 % (07/24/16 4:13 AM) Eosinophils [0.0-4.0 %] 0.3 % (07/26/16 5:45 AM) 0.3 % (07/25/16 5:20 AM) 0.1 % (07/24/16 4:13 AM) Basophils [0.0-1.0 %] 5.0 K/CMM (07/26/16 5:45 AM) 4.8 K/CMM (07/25/16 5:20 AM) 11.1 K/CMM *HI* (07/24/16 4:13 AM) Segs-Bands # [1.5-8.1 K/CMM] 1.5 K/CMM (07/26/16 5:45 AM) 1.3 K/CMM (07/25/16 5:20 AM) 1.8 K/CMM (07/24/16 4:13 AM) Lymphocytes # [1.0-5.5 K/CMM] 0.6 K/CMM (07/26/16 5:45 AM) 0.6 K/CMM (07/25/16 5:20 AM) 1.7 K/CMM *HI* (07/24/16 4:13 AM) Monocytes # [0.0-0.8 K/CMM] 0.2 K/CMM (07/26/16 5:45 AM) 0.1 K/CMM (07/25/16 5:20 AM) 0.0 K/CMM (07/23/16 10:00 PM) Eosinophils # [0.0-0.5 K/CMM] 0.0 K/CMM (07/26/16 5:45 AM) 0.0 K/CMM (07/23/16 10:00 PM) Basophils # [0.0-0.2 K/CMM] 14.6 seconds (07/26/16 5:45 AM) 14.6 seconds (07/25/16 5:20 AM) 16.4 seconds *HI* (07/24/16 4:13 AM) PT [12.0-14.7 seconds] 1.12 (07/26/16 5:45 AM) 1.12 (07/25/16 5:20 AM) 1.30 *HI* (07/24/16 4:13 AM) INR [0.85-1.17] 32.9 seconds (07/23/16 10:00 PM) PTT [22.9-35.8 seconds] Immunizations Given and [...] Extracted from: Title: Discharge Summary * Author: Nic Magana DO Date: 07/26/16 Discharge Information Admit date: July [...] Patient seen and evaluated by cardiology Dr. Holloway, device interrogated. Medical management continued, heart rate [...] 1 week. Cardiology in 1 week Extracted from: Title: Clinical Document Author: Jackie Holloway MD Date: 07/26/16 PLAN & TREATMENT Atrial Fibrillation: Rate currently controlled, continue amiodarone and ASA. 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 General: No acute distress. Respiratory: Lungs are clear to auscultation, Respirations are non-labored. Cardiovascular: Normal rate, Regular rhythm, No murmur, No gallop, Normal peripheral perfusion, No edema. Gastrointestinal: Soft, Non-tender, Non-distended, Normal bowel sounds, No organomegaly. Integumentary: Clean, Dry, Intact, Warm, Moist, No rash. 24hr Labs 07/26 0722 Glucose CFI543 H 07/26 0545 Sodium Rbl463 Potassium Lvl4.5 Chloride Nqs687 H CO223 L AGAP11.5 Glucose Ovu928 H Creatinine Lvl1.10 BUN21 B/C Ratio19 Total Protein6.4 Albumin Lvl3.3 L Globulin3.1 A/G Ratio1.1 Calcium Lvl8.2 L PJD994 H TSF793 H Alk Mwpe851 Bili Total0.4 eGFR77 Magnesium Lvl2.2 CK MB12.1 H Total OT8519 H WBC7.3 RBC4.89 Hgb14.9 Hct44.5 MCV90.9 MCH30.4 MCHC33.5 RDW13.2 Laycphyg418 MPV9.0 Segs68.5 Monocytes7.9 Wwsethulqgo46.0 Eosinophils2.3 Basophils0.3 Segs-Bands #5.0 Lymphocytes #1.5 Monocytes #0.6 Eosinophils #0.2 Basophils #0.0 PT14.6 INR1.12 07/26 0510 Glucose KSU364 H 07/25 1955 Glucose MNB229 H 07/25 1613 Glucose POG653 H 07/25 1227 Glucose JJQ417 H 07/25 0741 Glucose NPL467 H
--- OUTSIDE RECORDS SUMMARY | 2018-12-19 01:27 | XMS REPORT | Summary of Care ---
Author Author [facility] Organization [facility] Address Unknown Phone Unavailable Encounter SULY Morales(NILA) [id number] Date(s): 12/08/15 - 01/06/16 [facility] [address] [place] [address]- Discharge Disposition: Home or Self Care Attending Physician: Physician, Non Associated MD Referring Physician: Jazmine Poe NP Vital Signs Most recent to 1 oldest [Reference Range]: Height 175.26 cm (12/08/15 1:39 PM) Weight 106.364 kg (12/08/15 1:39 PM) Body Mass Index 34.63 m2 (12/08/15 1:39 PM) Problem List Condition Effective Dates Status [...]
--- OUTSIDE RECORDS SUMMARY | 2018-12-19 01:27 | XMS REPORT | Summary of Care ---
Author Author [facility] Organization [facility] Address Unknown Phone Unavailable Encounter HQ Carmen(NILA) [phone] Date(s): 10/12/15 - 10/13/15 [facility] [address] [place] [address]- Discharge Disposition: Home or Self Care Attending Physician: Carlos Manuel Nieto MD Vital Signs 1 2 3 Most recent to oldest [Reference Range]: 170.18 cm (10/12/15 5:51 PM) Height 97.4 DegF (10/13/15 8:10 AM) 97.9 DegF (10/13/15 4:34 AM) 97.9 DegF (10/13/15 12:08 AM) Temperature Oral [96.4-99.1 DegF] 132/91 mmHg (10/13/15 8:10 AM) 117/87 mmHg (10/13/15 4:34 AM) 110/70 mmHg (10/13/15 12:08 AM) Blood Pressure [90-140/60-90 mmHg] 18 BRMIN (10/13/15 8:10 AM) 12 BRMIN *LOW* (10/13/15 4:34 AM) 16 BRMIN (10/13/15 12:08 AM) Respiratory Rate [14-20 BRMIN] 77 bpm (10/13/15 8:10 AM) 83 bpm (10/13/15 4:34 AM) 85 bpm (10/13/15 12:08 AM) Peripheral Pulse Rate [60-100 bpm] 95.455 kg (10/12/15 5:51 PM) Weight 32.96 m2 (10/12/15 5:51 PM) Body Mass Index Problem List Condition Effective [...] Substance Reaction Severity Status NKDA Active Medications Abilify 10 mg, 1 tab, Route: PO, Drug form: TAB, Bedtime, Dosing Weight 95.455, kg, Star t date: 10/13/15 21:00:00 CDT, Duration: 30 day, Stop date: 11/11/15 21:00:00 CD T Notes: Non-Formulary Drug. (Same as: Abilify) Start Date: 10/13/15 Stop Date: 10/13/15 Status: Canceled Abilify 10 mg oral tablet 10 mg=1 tab, PO, Bedtime, 0 Refill(s) Start Date: 10/12/15 Status: Ordered acetaminophen 650 mg, 2 tab, Route: PO, Drug form: TAB, Q4H, Dosing Weight 95.455, kg, PRN For Temp > 100.4 F, Start date: 10/12/15 21:51:00 CDT, Duration: 30 day, Stop date: 11/11/15 21:50:00 CDT Notes: Do not exceed 4 gm/day. (Same as: Tylenol) Start Date: 10/12/15 Stop Date: 10/13/15 Status: Discontinued Ambien 5 mg, 0.5 tab, Route: PO, Drug form: TAB, Bedtime, Dosing Weight 95.455, kg, PRN Sleep, Start date: 10/12/15 21:53:00 CDT, Duration: 30 day, Stop date: 11/11/15 21:52:00 CDT Notes: (Same As: Ambien) Start Date: 10/12/15 Stop Date: 10/13/15 Status: Discontinued aspirin 81 mg tablet, enteric coated 81 mg, 1 tab, Route: PO, Drug form: ECTAB, Daily, Dosing Weight 95.455, kg, Star t date: 10/13/15 9:00:00 CDT, Duration: 30 day, Stop date: 11/11/15 9:00:00 CDT Notes: Do not crush or chew.(Same As: Ecotrin) Start Date: 10/13/15 Stop Date: 10/13/15 Status: Discontinued BD Normal Saline Flush 10 mL, Route: IVP, Drug Form: INJ, PRN, PRN Line Flush, Start date: 10/12/15 22: 24:00 CDT, Duration: 30 day, Stop date: 11/11/15 22:23:00 CDT Notes: (Same as: BD Posiflush) Start Date: 10/12/15 Stop Date: 10/13/15 Status: Discontinued bisacodyl 10 mg, 1 supp, Route: MD, Drug form: SUPP, Daily, Dosing Weight 95.455, kg, PRN Constipation, Start date: 10/12/15 21:51:00 CDT, Duration: 30 day, Stop date: 21:50:00 CDT Notes: (Same As: Dulcolax, Bisco-Lax) Start Date: 10/12/15 Stop Date: 10/13/15 Status: Discontinued calcium carbonate 1,000 mg, 2 tab, Route: CHEW, Drug form: CHEWTAB, ONCE, Dosing Weight 95.455, kg , Priority: STAT, Start date: 10/12/15 20:12:00 CDT, Stop date: 10/12/15 20:12:0 0 CDT Notes: (Same As: Anastasia)Calcium Carbonate 500 [id number] mg elemental calcium Dose=_ mg calcium carbonate ( mg elemental calcium) Start Date: 10/12/15 Stop Date: 10/12/15 Status: Completed carvedilol 3.125 mg, Route: PO, Drug form: TAB, Q12H, Dosing Weight 95.455, kg, Start date: 10/13/15 9:00:00 CDT, Duration: 30 day, Stop date: 11/11/15 21:00:00 CDT Start Date: 10/13/15 Stop Date: 10/12/15 Status: Canceled codeine-guaiFENesin 10 mg-100 mg/5 mL oral syrup 10 mL, Route: PO, Drug Form: LIQ, Dosing Weight 95.455, kg, Q4H, PRN Cough, Star t date: 10/12/15 21:51:00 CDT, Duration: 30 day, Stop date: 11/11/15 21:50:00 CD T Notes: (Same As: Robitussin AC) Start Date: 10/12/15 Stop Date: 10/13/15 Status: Discontinued Cogentin 1 mg, 1 tab, Route: PO, Drug form: TAB, Bedtime, Dosing Weight 95.455, kg, Start date: 10/13/15 21:00:00 CDT, Duration: 30 day, Stop date: 11/11/15 21:00:00 CDT Notes: (Same As: Cogentin) Start Date: 10/13/15 Stop Date: 10/13/15 Status: Canceled Coreg 25 mg, 1 tab, Route: PO, Drug form: TAB, BID-Meals, Dosing Weight 95.455, kg, St art date: 10/13/15 8:00:00 CDT, Duration: 30 day, Stop date: 11/11/15 17:00:00 C DT Notes: Give with food. (Same As: Coreg) Start Date: 10/13/15 Stop Date: 10/13/15 Status: Discontinued dextromethorphan-guaiFENesin 10 mg-100 mg/5 mL oral liquid 10 mL, Route: PO, Drug Form: SYRP, Dosing Weight 95.455, kg, Q4H, PRN Cough, Sta rt date: 10/12/15 21:51:00 CDT, Duration: 30 day, Stop date: 11/11/15 21:50:00 C DT Notes: (dextromethorphan-guaifenesin 10-100mg/5ml 10 ml oral SOLN ud) (Same as: Robitussin DM) Start Date: 10/12/15 Stop Date: 10/13/15 Status: Discontinued Dextrose 50% Syringe 25 gm, 50 mL, Route: IVP, Drug Form: INJ, Dosing Weight 95.455, kg, PRN, PRN Blo od Glucose Results, Start date: 10/12/15 21:52:00 CDT, Duration: 30 day, Stop da te: 11/11/15 21:51:00 CDT Start Date: 10/12/15 Stop Date: 10/13/15 Status: Discontinued Dextrose 50% Syringe 12.5 gm, 25 mL, Route: IVP, Drug Form: INJ, Dosing Weight 95.455, kg, PRN, PRN B lood Glucose Results, Start date: 10/12/15 21:52:00 CDT, Duration: 30 day, Stop date: 11/11/15 21:51:00 CDT Start Date: 10/12/15 Stop Date: 10/13/15 Status: Discontinued diphenhydrAMINE 25 mg, 1 cap, Route: PO, Drug form: CAP, Q6H, Dosing Weight 95.455, kg, PRN Itch ing, Start date: 10/12/15 21:51:00 CDT, Duration: 30 day, Stop date: 11/11/15 21 :50:00 CDT Notes: (Same as: Benadryl) Start Date: 10/12/15 Stop Date: 10/13/15 Status: Discontinued Geodon 20 mg, 1 cap, Route: PO, Drug form: CAP, QPM, Dosing Weight 95.455, kg, Start da te: 10/13/15 17:00:00 CDT, Duration: 30 day, Stop date: 11/11/15 17:00:00 CDT Notes: (Same As: Geodon)Give with Food Start Date: 10/13/15 Stop Date: 10/13/15 Status: Canceled glucagon 1 mg, Route: IM, Drug form: PDR/INJ, PRN, Dosing Weight 95.455, kg, PRN Blood Gl ucose Results, Start date: 10/12/15 21:52:00 CDT, Duration: 30 day, Stop date: 0 11/11/15 21:51:00 CDT Start Date: 10/12/15 Stop Date: 10/13/15 Status: Discontinued insulin aspart 10 unit, 0.1 mL, Route: SUB-Q, Drug form: SOLN, TID-Before Meals, Dosing Weight 95.455, kg, PRN Blood Glucose Results, Start date: 10/12/15 21:52:00 CDT, Durati on: 30 day, Stop date: 11/11/15 21:51:00 CDT Notes: Roll in palms of hands gently; Do not shake vigorously. (Same as: NovoGRETCHEN Castellanos)"single patient use only"WASTE: F/P - Black; E - Municipal Trash Bin Stable f or 28 days at room temperature.Expires in days from Date Start Date: 10/12/15 Stop Date: 10/13/15 Status: Discontinued insulin aspart 4 unit, 0.04 mL, Route: SUB-Q, Drug form: SOLN, Bedtime, Dosing Weight 95.455, k g, PRN Blood Glucose Results, Start date: 10/12/15 21:52:00 CDT, Duration: 30 da y, Stop date: 11/11/15 21:51:00 CDT Notes: Roll in palms of hands gently; Do not shake vigorously. (Same as: NovoGRETCHEN Castellanos)"single patient use only"WASTE: F/P - Black; E - Municipal Trash Bin Stable f or 28 days at room temperature.Expires in days from Date Start Date: 10/12/15 Stop Date: 10/13/15 Status: Discontinued insulin aspart 2 unit, 0.02 mL, Route: SUB-Q, Drug form: SOLN, Bedtime, Dosing Weight 95.455, k g, PRN Blood Glucose Results, Start date: 10/12/15 21:52:00 CDT, Duration: 30 da y, Stop date: 11/11/15 21:51:00 CDT Notes: Roll in palms of hands gently; Do not shake vigorously. (Same as: NovoGRETCHEN Castellanos)"single patient use only"WASTE: F/P - Black; E - Municipal Trash Bin Stable f or 28 days at room temperature.Expires in days from Date Start Date: 10/12/15 Stop Date: 10/13/15 Status: Discontinued insulin aspart 3 unit, 0.03 mL, Route: SUB-Q, Drug form: SOLN, Bedtime, Dosing Weight 95.455, k g, PRN Blood Glucose Results, Start date: 10/12/15 21:52:00 CDT, Duration: 30 da y, Stop date: 11/11/15 21:51:00 CDT Notes: Roll in palms of hands gently; Do not shake vigorously. (Same as: aMllorie Castellanos)"single patient use only"WASTE: F/P - Black; E - Municipal Trash Bin Stable f or 28 days at room temperature.Expires in days from Date Start Date: 10/12/15 Stop Date: 10/13/15 Status: Discontinued insulin aspart 1 unit, 0.01 mL, Route: SUB-Q, Drug form: SOLN, Bedtime, Dosing Weight 95.455, k g, PRN Blood Glucose Results, Start date: 10/12/15 21:52:00 CDT, Duration: 30 da y, Stop date: 11/11/15 21:51:00 CDT Notes: Roll in palms of hands gently; Do not shake vigorously. (Same as: Mallorie Castellanos)"single patient use only"WASTE: F/P - Black; E - Municipal Trash Bin Stable f or 28 days at room temperature.Expires in days from Date Start Date: 10/12/15 Stop Date: 10/13/15 Status: Discontinued insulin aspart 4 unit, 0.04 mL, Route: SUB-Q, Drug form: SOLN, TID-Before Meals, Dosing Weight 95.455, kg, PRN Blood Glucose Results, Start date: 10/12/15 21:52:00 CDT, Durati on: 30 day, Stop date: 11/11/15 21:51:00 CDT Notes: Roll in palms of hands gently; Do not shake vigorously. (Same as: Mallorie Castellanos)"single patient use only"WASTE: F/P - Black; E - Municipal Trash Bin Stable f or 28 days at room temperature.Expires in days from Date Start Date: 10/12/15 Stop Date: 10/13/15 Status: Discontinued insulin aspart 2 unit, 0.02 mL, Route: SUB-Q, Drug form: SOLN, TID-Before Meals, Dosing Weight 95.455, kg, PRN Blood Glucose Results, Start date: 10/12/15 21:52:00 CDT, Durati on: 30 day, Stop date: 11/11/15 21:51:00 CDT Notes: Roll in palms of hands gently; Do not shake vigorously. (Same as: Mallorie Castellanos)"single patient use only"WASTE: F/P - Black; E - Municipal Trash Bin Stable f or 28 days at room temperature.Expires in days from Date Start Date: 10/12/15 Stop Date: 10/13/15 Status: Discontinued insulin aspart 6 unit, 0.06 mL, Route: SUB-Q, Drug form: SOLN, TID-Before Meals, Dosing Weight 95.455, kg, PRN Blood Glucose Results, Start date: 10/12/15 21:52:00 CDT, Durati on: 30 day, Stop date: 11/11/15 21:51:00 CDT Notes: Roll in palms of hands gently; Do not shake vigorously. (Same as: Mallorie Castellanos)"single patient use only"WASTE: F/P - Black; E - Municipal Trash Bin Stable f or 28 days at room temperature.Expires in days from Date Start Date: 10/12/15 Stop Date: 10/13/15 Status: Discontinued insulin aspart 8 unit, 0.08 mL, Route: SUB-Q, Drug form: SOLN, TID-Before Meals, Dosing Weight 95.455, kg, PRN Blood Glucose Results, Start date: 10/12/15 21:52:00 CDT, Durati on: 30 day, Stop date: 11/11/15 21:51:00 CDT Notes: Roll in palms of hands gently; Do not shake vigorously. (Same as: Mallorie Castellanos)"single patient use only"WASTE: F/P - Black; E - Municipal Trash Bin Stable f or 28 days at room temperature.Expires in days from Date Start Date: 10/12/15 Stop Date: 10/13/15 Status: Discontinued insulin detemir 10 unit, 0.1 mL, Route: SUB-Q, Drug form: INJ, Q12H, Dosing Weight 95.455, kg, S tart date: 10/13/15 9:00:00 CDT, Duration: 30 day, Stop date: 11/11/15 21:00:00 CDT Notes: Same as LevemirDo not hold insulin without contacting prescriberWASTE: F/ P - Black; E - Municipal Trash Bin "single patient use only" Start Date: 10/13/15 Stop Date: 10/13/15 Status: Discontinued isosorbide mononitrate extended release 30 mg, 1 tab, Route: PO, Drug form: ERTAB, Daily, Dosing Weight 95.455, kg, Star t date: 10/13/15 9:00:00 CDT, Duration: 30 day, Stop date: 11/11/15 9:00:00 CDT Notes: (Same as:Imdur)"Do Not Crush" Take on empty stomach/ full glass of water . Do not crush Start Date: 10/13/15 Stop Date: 10/13/15 Status: Discontinued Lipitor 40 mg, 1 tab, Route: PO, Drug form: TAB, Bedtime, Dosing Weight 95.455, kg, Star t date: 10/13/15 21:00:00 CDT, Duration: 30 day, Stop date: 11/11/15 21:00:00 CD T Notes: (Same as: Lipitor) Start Date: 10/13/15 Stop Date: 10/13/15 Status: Canceled lisinopril 5 mg, Route: PO, Drug form: TAB, Daily, Dosing Weight 95.455, kg, Start date: 9:00:00 CDT, Duration: 30 day, Stop date: 11/11/15 9:00:00 CDT Start Date: 10/13/15 Stop Date: 10/12/15 Status: Canceled lisinopril 40 mg, 2 tab, Route: PO, Drug form: TAB, Daily, Dosing Weight 95.455, kg, Start date: 10/13/15 9:00:00 CDT, Duration: 30 day, Stop date: 11/11/15 9:00:00 CDT Notes: (Same as: Jimena Zestril) Start Date: 10/13/15 Stop Date: 10/13/15 Status: Discontinued nitroglycerin 2% ointment 0.5 inch, Route: TOP, Drug Form: OINT, Dosing Weight 95.455, kg, ONCE, STAT, Sta rt date: 10/12/15 18:16:00 CDT, Stop date: 10/12/15 18:16:00 CDT Notes: 1 gram is approximately 1 inch of nitroglycerin ointment (20 mg NTG pe r gram) (Same as:Nitro-Bid) Start Date: 10/12/15 Stop Date: 10/12/15 Status: Completed nitroglycerin 2% ointment 0.5 inch, Route: TOP, Drug Form: OINT, Dosing Weight 95.455, kg, TID, PRN Chest Pain, Start date: 10/12/15 21:51:00 CDT, Duration: 30 day, Stop date: 11/11/15 2 1:50:00 CDT Notes: 1 gram is approximately 1 inch of nitroglycerin ointment (20 mg NTG pe r gram) (Same as:Nitro-Bid) Start Date: 10/12/15 Stop Date: 10/13/15 Status: Discontinued nitroglycerin SL Tab 0.4 mg, 1 tab, Route: SL, Drug form: TAB, Q5Min, Dosing Weight 95.455, kg, PRN C hest Pain, Start date: 10/12/15 21:51:00 CDT, Duration: 3 doses or times, Stop d ate: Limited # of times Notes: (Same as:Nitroquick, Nitrostat)"Do Not Crush" Sublingual tablet Start Date: 10/12/15 Stop Date: 10/13/15 Status: Discontinued ondansetron 4 mg, 2 mL, Route: IVP, Drug form: INJ, Q8H, Dosing Weight 95.455, kg, PRN Nause a & Vomiting, Start date: 10/12/15 21:51:00 CDT, Duration: 30 day, Stop date: 11/11/15 21:50:00 CDT Notes: (Same as: Jelena) MEDICATION WASTE Product Size: 4 mgProduct Was mary jane: ___ mg Start Date: 10/12/15 Stop Date: 10/13/15 Status: Discontinued potassium chloride 40 mEq, Route: PO, Drug form: ERTAB, ONCE, Dosing Weight 95.455, kg, Priority: S TAT, Start date: 10/12/15 18:59:00 CDT, Stop date: 10/12/15 18:59:00 CDT Start Date: 10/12/15 Stop Date: 10/12/15 Status: Completed Saline Flush 0.9% 10 mL, Route: IVP, Drug Form: INJ, Dosing Weight 95.455, kg, PRN, PRN Line Flush , Start date: 10/12/15 18:16:00 CDT, Duration: 30 day, Stop date: 11/11/15 18:15 :00 CDT Notes: (Same as: BD Posiflush) Start Date: 10/12/15 Stop Date: 10/12/15 Status: Discontinued Saline Flush 0.9% 10 ml, Route: IVP, Drug Form: INJ, Dosing Weight 95.455, kg, Q12H, Start date: 0 10/13/15 9:00:00 CDT, Duration: 30 day, Stop date: 11/11/15 21:00:00 CDT Start Date: 10/13/15 Stop Date: 10/12/15 Status: Canceled Saline Flush 0.9% 10 ml, Route: IVP, Drug Form: INJ, Dosing Weight 95.455, kg, PRN, PRN Line Flush , Start date: 10/12/15 21:51:00 CDT, Duration: 30 day, Stop date: 11/11/15 21:50 :00 CDT Notes: (Same as: BD Posiflush) Start Date: 10/12/15 Stop Date: 10/12/15 Status: Discontinued simethicone 80 mg, 1 tab, Route: CHEW, Drug form: CHEWTAB, Q6H, Dosing Weight 95.455, kg, MD N Gas, Start date: 10/12/15 21:51:00 CDT, Duration: 2 doses or times, Stop date: Limited # of times Notes: (Same as: Mylicon) Start Date: 10/12/15 Stop Date: 10/13/15 Status: Discontinued Sodium Chloride 0.9% IV 250 mL, Route: IVPB, Start date: 10/12/15 22:25:00 CDT, Duration: 30 day, Stop d ate: 11/11/15 22:24:00 CDT, PRN Line Flush Start Date: 10/12/15 Stop Date: 10/13/15 Status: Discontinued sucralfate 1 gm, 1 tab, Route: PO, Drug form: TAB, BID, Dosing Weight 95.455, kg, Start james e: 10/13/15 9:00:00 CDT, Duration: 30 day, Stop date: 11/11/15 17:00:00 CDT Notes: May interfere w/enteral feeds - Take 1 hr before or 2 hr after antacids, dairy pdt, meals & minerals - On empty stomach. (Same As: Carafate) Start Date: 10/13/15 Stop Date: 10/13/15 Status: Discontinued temazepam 15 mg, 1 cap, Route: PO, Drug form: CAP, Bedtime, Dosing Weight 95.455, kg, PRN Insomnia, Start date: 10/12/15 21:51:00 CDT, Duration: 30 day, Stop date: 21:50:00 CDT Notes: (Same As: Restoril) Start Date: 10/12/15 Stop Date: 10/13/15 Status: Discontinued Tessalon Perles 100 mg, 1 cap, Route: PO, Drug form: CAP, Q8H, Dosing Weight 95.455, kg, PRN Cou gh, Start date: 10/12/15 21:51:00 CDT, Duration: 30 day, Stop date: 11/11/15 21: 50:00 CDT Notes: (Same As: Tessalon Perles)"Do Not Crush" Start Date: 10/12/15 Stop Date: 10/13/15 Status: Discontinued trazodone 50 mg oral tablet 50 mg, 1 tab, Route: PO, Drug form: TAB, Bedtime, Dosing Weight 95.455, kg, Star t date: 10/13/15 21:00:00 CDT, Duration: 30 day, Stop date: 11/11/15 21:00:00 CD T Notes: (Same As: Desyrel) Start Date: 10/13/15 Stop Date: 10/13/15 Status: Canceled Results ELECTROLYTES 1 2 3 Most recent to oldest [Reference Range]: 141 mEq/L (10/13/15 5:52 AM) 146 mEq/L *HI* (10/12/15 6:25 PM) Sodium Lvl [135-145 mEq/L] 4.1 mEq/L (10/13/15 5:52 AM) 2.9 mEq/L 1 *CRIT* (10/12/15 6:25 PM) Potassium Lvl [3.5-5.1 mEq/L] 106 mEq/L (10/13/15 5:52 AM) 114 mEq/L *HI* (10/12/15 6:25 PM) Chloride Lvl [95-109 mEq/L] 29 mEq/L (10/13/15 5:52 AM) 25 mEq/L (10/12/15 6:25 PM) CO2 [24-32 mEq/L] 10.1 mEq/L (10/13/15 5:52 AM) 9.9 mEq/L *LOW* (10/12/15 6:25 PM) AGAP [10.0-20.0 mEq/L] 1Result Comment: Critical Result(s) called to [facility] at 10/12/2015 18:56 by BP. Read back OK. CHEM PANEL 1 2 3 Most recent to oldest [Reference Range]: 1.40 mg/dL (10/13/15 5:52 AM) 1.30 mg/dL (10/12/15 6:25 PM) Creatinine Lvl [0.50-1.40 mg/dL] 58 mL/min/1.73m2 1 *NA* (10/13/15 5:52 AM) 63 mL/min/1.73m2 2 *NA* (10/12/15 6:25 PM) eGFR 30 mg/dL *HI* (10/13/15 5:52 AM) 25 mg/dL *HI* (10/12/15 6:25 PM) BUN [7-22 mg/dL] 19 (10/12/15 6:25 PM) B/C Ratio [6-25] 206 mg/dL *HI* (10/13/15 5:52 AM) 121 mg/dL *HI* (10/12/15 6:25 PM) Glucose Lvl [70-99 mg/dL] 5.6 g/dL *LOW* (10/12/15 6:25 PM) Total Protein [6.4-8.4 g/dL] 3.2 g/dL *LOW* (10/12/15 6:25 PM) Albumin Lvl [3.5-5.0 g/dL] 2.4 g/dL (10/12/15 6:25 PM) Globulin [2.0-4.0 g/dL] 1.3 (10/12/15 6:25 PM) A/G Ratio [0.7-1.6] 8.9 mg/dL (10/13/15 5:52 AM) 6.5 mg/dL *CRIT* (10/12/15 6:25 PM) Calcium Lvl [8.5-10.5 mg/dL] 2.1 mg/dL (10/13/15 5:52 AM) Magnesium Lvl [1.8-2.4 mg/dL] 22 unit/L (10/12/15 6:25 PM) ALT [0-65 unit/L] 17 unit/L (10/12/15 6:25 PM) AST [0-37 unit/L] 80 unit/L (10/12/15 6:25 PM) Alk Phos [39-136 unit/L] 0.7 mg/dL (10/12/15 6:25 PM) Bili Total [0.2-1.3 mg/dL] 1Result Comment: [...] 3 Most recent to oldest [Reference Range]: 499 unit/L *HI* (10/13/15 5:52 AM) 578 unit/L *HI* (10/13/15 12:52 AM) 549 unit/L *HI* (10/12/15 6:25 PM) Total CK [12-191 unit/L] 2.3 ng/mL (10/13/15 5:52 AM) 2.2 ng/mL (10/13/15 12:52 AM) 1.8 ng/mL (10/12/15 6:25 PM) CK MB [0.5-3.6 ng/mL] 0.3 (10/12/15 6:25 PM) CK MB Index [0.0-2.5] 0.04 ng/mL (10/13/15 12:52 AM) 0.04 ng/mL (10/12/15 6:25 PM) Troponin-I [0.00-0.40 ng/mL] 439 pg/mL *HI* (10/12/15 6:25 PM) BNP [<=100 pg/mL] LIPIDS 1 2 3 Most recent to oldest [Reference Range]: 3.53 *LOW* (10/13/15 5:52 AM) CHD Risk [4.00-7.30] 106 mg/dL (10/13/15 5:52 AM) Chol [<=199 mg/dL] 170 mg/dL *HI* (10/13/15 5:52 AM) Trig [<=149 mg/dL] 30 mg/dL *LOW* (10/13/15 5:52 AM) HDL [>=61 mg/dL] 42 mg/dL (10/13/15 5:52 AM) LDL (Calculated) [<=99 mg/dL] 34 *NA* (10/13/15 5:52 AM) VLDL DRUG SCREEN 1 2 3 Most recent to oldest [Reference Range]: Negative *NA* (10/13/15 9:49 AM) U Methadone Scr [Negative] Negative *NA* (10/13/15 9:49 AM) U Propoxyph Scr [Negative] Negative *NA* (10/13/15 9:49 AM) U Amph Scr [Negative] Negative *NA* (10/13/15 9:49 AM) U Brigette Scr [Negative] Negative *NA* (10/13/15 9:49 AM) U Benzodia Scr [Negative] Positive *ABN* (10/13/15 9:49 AM) U Cocaine Scr [Negative] Negative *NA* (10/13/15 9:49 AM) U Opiate Scr [Negative] Negative *NA* (10/13/15 9:49 AM) U Phencyc Scr [Negative] Negative *NA* (10/13/15 9:49 AM) U Cannab Scr [Negative] See Note (10/13/15 9:49 AM) UDS Note HEMATOLOGY 1 2 3 Most recent to oldest [Reference Range]: 6.4 K/CMM (10/13/15 5:52 AM) 11.5 K/CMM *HI* (10/12/15 6:25 PM) WBC [3.7-10.4 K/CMM] 4.73 M/CMM (10/13/15 5:52 AM) 5.06 M/CMM (10/12/15 6:25 PM) RBC [4.70-6.10 M/CMM] 14.5 g/dL (10/13/15 5:52 AM) 15.2 g/dL (10/12/15 6:25 PM) Hgb [14.0-18.0 g/dL] 42.3 % (10/13/15 5:52 AM) 45.3 % (10/12/15 6:25 PM) Hct [42.0-54.0 %] 89.4 fL (10/13/15 5:52 AM) 89.5 fL (10/12/15 6:25 PM) MCV [80.0-94.0 fL] 30.6 pg (10/13/15 5:52 AM) 29.9 pg (10/12/15 6:25 PM) MCH [27.0-31.0 pg] 34.2 g/dL (10/13/15 5:52 AM) 33.5 g/dL (10/12/15 6:25 PM) MCHC [32.0-36.0 g/dL] 13.5 % (10/13/15 5:52 AM) 13.4 % (10/12/15 6:25 PM) RDW [11.5-14.5 %] 131 K/CMM *LOW* (10/13/15 5:52 AM) 181 K/CMM (10/12/15 6:25 PM) Platelet [133-450 K/CMM] 8.5 fL (10/13/15 5:52 AM) 8.3 fL (10/12/15 6:25 PM) MPV [7.4-10.4 fL] 67.0 % (10/13/15 5:52 AM) 74.0 % (10/12/15 6:25 PM) Segs [45.0-75.0 %] 18.0 % *LOW* (10/13/15 5:52 AM) 14.5 % *LOW* (10/12/15 6:25 PM) Lymphocytes [20.0-40.0 %] 11.9 % (10/13/15 5:52 AM) 10.8 % (10/12/15 6:25 PM) Monocytes [2.0-12.0 %] 2.6 % (10/13/15 5:52 AM) 0.6 % (10/12/15 6:25 PM) Eosinophils [0.0-4.0 %] 0.5 % (10/13/15 5:52 AM) 0.1 % (10/12/15 6:25 PM) Basophils [0.0-1.0 %] 4.3 K/CMM (10/13/15 5:52 AM) 8.5 K/CMM *HI* (10/12/15 6:25 PM) Segs-Bands # [1.5-8.1 K/CMM] 1.2 K/CMM (10/13/15 5:52 AM) 1.7 K/CMM (10/12/15 6:25 PM) Lymphocytes # [1.0-5.5 K/CMM] 0.8 K/CMM (10/13/15 5:52 AM) 1.2 K/CMM *HI* (10/12/15 6:25 PM) Monocytes # [0.0-0.8 K/CMM] 0.2 K/CMM (10/13/15 5:52 AM) 0.1 K/CMM (10/12/15 6:25 PM) Eosinophils # [0.0-0.5 K/CMM] 0.0 K/CMM (10/12/15 6:25 PM) Basophils # [0.0-0.2 K/CMM] 23.0 seconds *HI* (10/12/15 6:25 PM) PT [12.0-14.7 seconds] 2.00 *HI* (10/12/15 6:25 PM) INR [0.85-1.17] 36.4 seconds *HI* (10/12/15 6:25 PM) PTT [22.9-35.8 seconds] Immunizations Given and [...] Extracted from: Title: Discharge Summary * Author: Junie Avila NP Date: 10/13/15 Patient: NELI ABRAHAM Age: 50 years Sex: Male : 1965 [...] condition: Stable Consults: Cardiology consult with Dr. Holloway Procedures: None Results Review General results Labs (Last four charted values) WBC 6.4(OCT 12)H 11.5(OCT 11) Hgb 14.5(OCT 12)15.2(OCT 11) Hct 42.3(OCT 12)45.3(OCT 11) Plt L 131(OCT 12)181(OCT 11) Na 141(OCT 12)H 146(OCT 11) K 4.1(OCT 12)C 2.9(OCT 11) CO2 29(OCT 12)25(OCT 11) Cl 106(OCT 12)H 114(OCT 11) Cr 1.40(OCT 12)1.30(OCT 11) BUN H 30(OCT 12)H 25(OCT 11) Glucose Random H 206(OCT 12)H 121(OCT 11) Mg 2.1(OCT 12) Ca 8.9(OCT 12)C 6.5(OCT 11) PT H 23.0(OCT 11) INR H 2.00(OCT 11) PTT H 36.4(OCT 11) Troponin 0.04(OCT 12)0.04(OCT 11) CK MB 2.3(OCT 12)2.2(OCT 12)1.8(OCT 11) Total CK H 499(OCT 12)H 578(OCT 12)H 549(OCT 11) Physical Examination VS/Measurements Vital Signs (last 24 hrs) Last Charted Temp Oral97.4 DegF (OCT 12:10) Heart Rate Zouuuqngdt13 bpm (OCT 12:) Resp Rate 18 BRMIN (OCT 12:10) KQI604 mmHg (OCT 12:) DBPH 91mmHg (OCT 12:10) OzG716 % (OCT 12:) Yfdcel69.455 kg (OCT 11) Qgsegx545.18 cm (OCT 11) BMI32.96 (OCT 11) General: Alert and oriented, No acute distress. [...] No focal deficits. Psychiatric: Cooperative, Appropriate mood & affect, Normal judgment, Non-suicidal. Hospital Course The [...] list. Discharge time spent: 30 min Addendum pt. seen and examined agree with TOOL SMITH by Shelley, Agree with above note. Yrn JETT on 10/14/2015 11:13 Extracted from: Title: Clinical Document Author: Jackie Holloway MD Date: 10/13/15 IMPRESSION: 1. Atrial fibrillation. 2. Severe nonischemic dilated cardiomyopathy, AICD placement. 3. Pbdpm-om-fvcaxsv systolic congestive heart failure. 4. Cocaine abuse. [...] Expanded Problem Focused PE Vitals and Temp: VitalsTmp(F)AzrxjOTVHGrL6AAK4 10/12 04:3497.535152/[id number] 3.0L/m 10/12 00:0897.785293/337463--- 10/11 21:4497.618275/7514945 3.0L/m 10/11 21:2197.784046/633866 3.0L/m 10/11 20:10----16663/512670 3.0L/m 24 Hr Tmax: 98.4F (36.89c) at 10/11 19:31Vital Signs are the last 5 in the past 48 hours. General: No acute distress. Respiratory: Lungs are clear to auscultation, Respirations are non-labored. Cardiovascular: Normal rate, Regular rhythm, No murmur, No gallop, Normal peripheral perfusion, No edema. Gastrointestinal: Soft, Non-tender, Non-distended, Normal bowel sounds, No organomegaly. Integumentary: Clean, Dry, Intact, Warm, Moist, No rash. 24hr Labs 10/12 0800 Glucose RUZ716 H 10/12 0552 Whnn207 Qmlz679 H HDL30 L LDL (Calculated)42 VLDL34 CHD Risk3.53 L Magnesium Lvl2.1 Glucose Rje947 H BUN30 H Creatinine Lvl1.40 Sodium Hnx735 Potassium Lvl4.1 Chloride Rww142 CO229 AGAP10.1 Calcium Lvl8.9 eGFR58 Total CK499 H CK MB2.3 WBC6.4 RBC4.73 Hgb14.5 Hct42.3 MCV89.4 MCH30.6 MCHC34.2 RDW13.5 Qdwawalb371 L MPV8.5 Segs67.0 Hulpknbst54.9 Gjbeovkkpch95.0 L Eosinophils2.6 Basophils0.5 Segs-Bands #4.3 Lymphocytes #1.2 Monocytes #0.8 Eosinophils #0.2 10/12 0052 Total CK578 H Troponin-I0.04 CK MB2.2 10/11 2201 Glucose BVY843 H 10/11 1825 Total CK549 H Troponin-I0.04 CK MB1.8 CK MB Index0.3 Sodium Aom712 H Potassium Lvl2.9 C Chloride Bhp999 H CO225 AGAP9.9 L Glucose Rsk390 H Creatinine Lvl1.30 BUN25 H B/C Ratio19 Total Protein5.6 L Albumin Lvl3.2 L Globulin2.4 A/G Ratio1.3 Calcium Lvl6.5 C ALT22 AST17 Alk Phos80 Bili Total0.7 eGFR63 OVL014 H WBC11.5 H RBC5.06 Hgb15.2 Hct45.3 MCV89.5 MCH29.9 MCHC33.5 RDW13.4 Lconsnfi494 MPV8.3 Segs74.0 Hkalmldmn63.8 Okcvzhsadpg36.5 L Eosinophils0.6 Basophils0.1 Segs-Bands #8.5 H Lymphocytes #1.7 Monocytes #1.2 H Eosinophils #0.1 Basophils #0.0 PT23.0 H INR2.00 H PTT36.4 H Extracted from: Title: Clinical Document Author: Jigna Swift NP Date: 10/12/15 History and Physical Chief Complaint: Chest pain History of Present Illness The patient is a 50 year old with history of systolic CHF, cardiomyopathy, pacemaker and defibrillator, hypertension, diabetes type 2 manage with po medications, and schizoaffective controlled with medications. Patient was brought to the emergency department at [facility] for midsternal chest pain that [...] he is accumulated fluid in the abdomen. Fea ring he is having a heart attack, he [...] time after 10 years recession. Lives in retirement. Review Of Systems Gen. awake alert and [...] temperature no diabetic thyroid problem Physical Exam VitalsTmp(F)[id number] 10/11 21:[id number] 3.0L/m 10/11 21:2197.596343/[id number] 3.0L/m 10/11 20:10----89774/932255 3.0L/m 10/11 19:3198.825497/195570 3.0L/m 10/11 17:5198.429691/[id number]--- General: The patient is a 50 year [...] 10/12/15 PTT: 36.4 High 10/12/15 RBC: 5.06 07/18/16 RDW: 13.4 10/12/15 Segs: 74.0 10/12/15 Segs-Bands [...] ASA, ACEI. and continue coreg. Will consult mainframe architect Dr. Holloway and will await further recommendations from cardiology as well. 2. Systolic congestive heart failure. Stable. Last TTE was done in May, shown ejection fraction less than 55%-60%. We [...]
--- OUTSIDE RECORDS SUMMARY | 2018-12-19 01:28 | XMS REPORT | Summary of Care ---
Author Author [facility] Organization [facility] Address Unknown Phone Unavailable Encounter SULY Morales(NILA) [id number] Date(s): 03/07/17 - 03/08/17 [facility] [address] [place] [address]- Discharge Disposition: Home or Self Care Attending Physician: Panchito Alvarado MD Vital Signs 1 2 3 Most recent to oldest [Reference Range]: 170.18 cm (03/08/17 1:09 AM) 170.18 cm (03/08/17 12:30 AM) Height 97.7 DegF (03/08/17 12:04 AM) 97.8 DegF (03/07/17 8:34 PM) Temperature Oral [96.4-99.1 DegF] 105/74 mmHg (03/08/17 12:00 PM) 105/73 mmHg (03/08/17 8:36 AM) 99/61 mmHg (03/08/17 4:00 AM) Blood Pressure [90-140/60-90 mmHg] 20 BRMIN (03/08/17 12:00 PM) 20 BRMIN (03/08/17 8:36 AM) 18 BRMIN (03/08/17 4:00 AM) Respiratory Rate [14-20 BRMIN] 76 bpm (03/08/17 12:00 PM) 67 bpm (03/08/17 8:36 AM) 55 bpm *LOW* (03/08/17 4:00 AM) Peripheral Pulse Rate [60-100 bpm] 99.6 kg (03/08/17 1:09 AM) Weight 34.39 m2 (03/08/17 1:09 AM) Body Mass Index Problem List Condition Effective Dates Status Health Status Informant [D]Anterior chest 12/07/11 Active wall pain(Confirmed) Anxiety(Confirmed) Resolved BP+ - Active Hypertension(Confirm ed) Pacemaker(Confirmed) Active Cardiomyopathy(Confi Resolved rmed) CHF - Congestive Active heart failure(Confirmed) CHF - Congestive Active heart failure(Confirmed) Depression(Confirmed Active ) dm(Confirmed) Active Down Active syndrome(Confirmed) GERD - Active Gastro-esophageal reflux disease(Confirmed) H/O: Active schizophrenia(Confir med) HTN(Confirmed) Active ICD (implantable Active cardiac defibrillator) battery depletion(Confirmed) NIDDM(Confirmed) Active Obese Active build(Confirmed) Schizophrenia(Confir Active med) Short of breath on Active exertion(Confirmed) Sleep Active apnea(Confirmed) Sleep Active apnea(Confirmed) Allergies, Adverse Reactions, Alerts Substance Reaction Severity Status NKDA Active Medications acetaminophen 650 mg, 2 tab, Route: PO, Drug form: TAB, Q4H, Dosing Weight 99.6, kg, PRN Pain 1-3/Temp > 100.4 F, Start date: 03/08/17 4:38:00 FLOSSER, Duration: 30 day, Stop date: 04/07/17 4:37:00 FLOSSER Notes: Do not exceed 4 gm/day. (Same as: Tylenol) Start Date: 03/08/17 Stop Date: 03/08/17 Status: Discontinued Ambien 5 mg oral tablet 5 mg=1 tab, PO, Bedtime, PRN for sleep, 0 Refill(s) Start Date: 03/08/17 Status: Ordered aspirin 81 mg tablet, chewable 324 mg, 4 tab, Route: PO, Drug form: CHEWTAB, ONCE, Dosing Weight 101.364, kg, P riority: STAT, Start date: 03/07/17 20:53:00 FLOSSER, Stop date: 03/07/17 20:53:[address] Notes: Take with food. Start Date: 03/07/17 Stop Date: 03/07/17 Status: Completed aspirin 81 mg tablet, enteric coated 81 mg=1 tab, PO, Daily, # 90 tab, 3 Refill(s) Start Date: 03/08/17 Status: Ordered Combivent inhalation aerosol with adapter 2 puff, INHALATION, QID, # 29 gm, 0 Refill(s) Start Date: 03/08/17 Status: Ordered Coreg 12.5 mg, 1 tab, Route: PO, Drug form: TAB, Q12H, Dosing Weight 99.6, kg, Start d ate: 03/08/17 9:00:00 FLOSSER, Duration: 30 day, Stop date: 04/06/17 21:00:00 FLOSSER Notes: Give with food. (Same As: Coreg) Start Date: 03/08/17 Stop Date: 03/08/17 Status: Discontinued Dextrose 50% Syringe 50 mL, Route: IVP, Dosing Weight 99.6, kg, PRN, PRN Blood Glucose Results, Start date: 03/08/17 6:10:00 FLOSSER, Duration: 30 day, Stop date: 04/07/17 6:09:00 FLOSSER Start Date: 03/08/17 Stop Date: 03/08/17 Status: Discontinued Dextrose 50% Syringe 25 mL, Route: IVP, Dosing Weight 99.6, kg, PRN, PRN Blood Glucose Results, Start date: 03/08/17 6:10:00 FLOSSER, Duration: 30 day, Stop date: 04/07/17 6:09:00 FLOSSER Start Date: 03/08/17 Stop Date: 03/08/17 Status: Discontinued Dextrose 50% Syringe 25 gm, 50 mL, Route: IVP, Drug Form: INJ, Dosing Weight 99.6, kg, PRN, PRN Blood Glucose Results, Start date: 03/08/17 6:09:00 FLOSSER, Duration: 30 day, Stop date: 04/07/17 6:08:00 FLOSSER Start Date: 03/08/17 Stop Date: 03/08/17 Status: Discontinued Dextrose 50% Syringe 12.5 gm, 25 mL, Route: IVP, Drug Form: INJ, Dosing Weight 99.6, kg, PRN, PRN Blo od Glucose Results, Start date: 03/08/17 6:09:00 FLOSSER, Duration: 30 day, Stop james e: 04/07/17 6:08:00 FLOSSER Start Date: 03/08/17 Stop Date: 03/08/17 Status: Discontinued digoxin 250 mcg (0.25 mg) oral tablet 0.25 mg, PO, Daily, 0 Refill(s) Start Date: 03/08/17 Status: Ordered Dulcolax Laxative 5 mg oral enteric coated tablet 10 mg=2 tab, PO, Daily, PRN Constipation, 0 Refill(s) Start Date: 03/08/17 Status: Ordered DuoNeb inhalation solution 3 mL, NEB, Q6H, PRN as needed for shortness of breath or wheezing, 0 Refill(s) Start Date: 03/08/17 Status: Ordered glimepiride 4 mg oral tablet 4 mg=1 tab, PO, BID, 0 Refill(s) Start Date: 03/08/17 Status: Ordered glucagon 1 mg, Route: IM, PRN, Dosing Weight 99.6, kg, PRN Blood Glucose Results, Start d ate: 03/08/17 6:10:00 FLOSSER, Duration: 30 day, Stop date: 04/07/17 6:09:00 FLOSSER Start Date: 03/08/17 Stop Date: 03/08/17 Status: Discontinued glucagon 1 mg, Route: IM, Drug form: PDR/INJ, PRN, Dosing Weight 99.6, kg, PRN Blood Gluc ose Results, Start date: 03/08/17 6:09:00 FLOSSER, Duration: 30 day, Stop date: 03/27 05/14 6:08:00 FLOSSER Start Date: 03/08/17 Stop Date: 03/08/17 Status: Discontinued insulin lispro 1 unit, 0.01 mL, Route: SUB-Q, Drug form: SOLN, Bedtime, Dosing Weight 99.6, kg, PRN Blood Glucose Results, Start date: 03/08/17 6:10:00 FLOSSER, Duration: 30 day, Stop date: 04/07/17 6:09:00 FLOSSER Notes: Roll in palms of hands gently; Do not shake `vigorously. (Same as: Maribell jacinto )"Single Patient Use Only "WASTE: F/P - Black; E - Stir Trash Bin Stabl e for 28 days at room temperature.Expires in days from Date Start Date: 03/08/17 Stop Date: 03/08/17 Status: Discontinued insulin lispro 2 unit, 0.02 mL, Route: SUB-Q, Drug form: SOLN, Bedtime, Dosing Weight 99.6, kg, PRN Blood Glucose Results, Start date: 03/08/17 6:10:00 FLOSSER, Duration: 30 day, Stop date: 04/07/17 6:09:00 FLOSSER Notes: Roll in palms of hands gently; Do not shake `vigorously. ([facility] as: [facility] )"Single Patient Use Only "WASTE: F/P - Black; E - Municipal Trash Bin Stabl e for 28 days at room temperature.Expires in days from Date Start Date: 03/08/17 Stop Date: 03/08/17 Status: Discontinued insulin lispro 4 unit, 0.04 mL, Route: SUB-Q, Drug form: SOLN, Bedtime, Dosing Weight 99.6, kg, PRN Blood Glucose Results, Start date: 03/08/17 6:10:00 FLOSSER, Duration: 30 day, Stop date: 04/07/17 6:09:00 FLOSSER Notes: Roll in palms of hands gently; Do not shake `vigorously. (Same as: [facility] )"Single Patient Use Only "WASTE: F/P - Black; E - Municipal Trash Bin Stabl e for 28 days at room temperature.Expires in days from Date Start Date: 03/08/17 Stop Date: 03/08/17 Status: Discontinued insulin lispro 3 unit, 0.03 mL, Route: SUB-Q, Drug form: SOLN, Bedtime, Dosing Weight 99.6, kg, PRN Blood Glucose Results, Start date: 03/08/17 6:10:00 FLOSSER, Duration: 30 day, Stop date: 04/07/17 6:09:00 FLOSSER Notes: Roll in palms of hands gently; Do not shake `vigorously. (Same as: [facility] )"Single Patient Use Only "WASTE: F/P - Black; E - Municipal Trash Bin Stabl e for 28 days at room temperature.Expires in days from Date Start Date: 03/08/17 Stop Date: 03/08/17 Status: Discontinued insulin lispro 5 unit, 0.05 mL, Route: SUB-Q, Drug form: SOLN, TID-Before Meals, Dosing Weight 99.6, kg, PRN Blood Glucose Results, Start date: 03/08/17 6:09:00 FLOSSER, Duration: 30 day, Stop date: 04/07/17 6:08:00 FLOSSER Notes: Roll in palms of hands gently; Do not shake `vigorously. (Same as: Maribell og )"Single Patient Use Only "WASTE: F/P - Black; E - Municipal Trash Bin Stabl e for 28 days at room temperature.Expires in days from Date Start Date: 03/08/17 Stop Date: 03/08/17 Status: Discontinued insulin lispro 1 unit, 0.01 mL, Route: SUB-Q, Drug form: SOLN, TID-Before Meals, Dosing Weight 99.6, kg, PRN Blood Glucose Results, Start date: 03/08/17 6:09:00 FLOSSER, Duration: 30 day, Stop date: 04/07/17 6:08:00 FLOSSER Notes: Roll in palms of hands gently; Do not shake `vigorously. (Same as: Maribell og )"Single Patient Use Only "WASTE: F/P - Black; E - Municipal Trash Bin Stabl e for 28 days at room temperature.Expires in days from Date Start Date: 03/08/17 Stop Date: 03/08/17 Status: Discontinued insulin lispro 3 unit, 0.03 mL, Route: SUB-Q, Drug form: SOLN, TID-Before Meals, Dosing Weight 99.6, kg, PRN Blood Glucose Results, Start date: 03/08/17 6:09:00 FLOSSER, Duration: 30 day, Stop date: 04/07/17 6:08:00 FLOSSER Notes: Roll in palms of hands gently; Do not shake `vigorously. (Same as: Humbharti og )"Single Patient Use Only "WASTE: F/P - Black; E - Municipal Trash Bin Stabl e for 28 days at room temperature.Expires in days from Date Start Date: 03/08/17 Stop Date: 03/08/17 Status: Discontinued insulin lispro 2 unit, 0.02 mL, Route: SUB-Q, Drug form: SOLN, TID-Before Meals, Dosing Weight 99.6, kg, PRN Blood Glucose Results, Start date: 03/08/17 6:09:00 FLOSSER, Duration: 30 day, Stop date: 04/07/17 6:08:00 FLOSSER Notes: Roll in palms of hands gently; Do not shake `vigorously. (Same as: Maribell og )"Single Patient Use Only "WASTE: F/P - Black; E - Municipal Trash Bin Stabl e for 28 days at room temperature.Expires in days from Date Start Date: 03/08/17 Stop Date: 03/08/17 Status: Discontinued insulin lispro 4 unit, 0.04 mL, Route: SUB-Q, Drug form: SOLN, TID-Before Meals, Dosing Weight 99.6, kg, PRN Blood Glucose Results, Start date: 03/08/17 6:09:00 FLOSSER, Duration: 30 day, Stop date: 04/07/17 6:08:00 FLOSSER Notes: Roll in palms of hands gently; Do not shake `vigorously. (Same as: Maribell jacinto )"Single Patient Use Only "WASTE: F/P - Black; E - Municipal Trash Bin Stabl e for 28 days at room temperature.Expires in days from Date Start Date: 03/08/17 Stop Date: 03/08/17 Status: Discontinued K-Dur 20 40 mEq, 2 tab, Route: PO, Drug form: ERTAB, ONCE, Start date: 03/08/17 10:00:00 FLOSSER, Stop date: 03/08/17 10:00:00 FLOSSER Notes: (Same as: K-Dur 20)"Do Not Crush" With food and full glass of water Start Date: 03/08/17 Stop Date: 03/08/17 Status: Completed Lasix 40 mg, 1 tab, Route: PO, Drug form: TAB, BID, Dosing Weight 99.6, kg, Start date : 03/08/17 9:00:00 FLOSSER, Duration: 30 day, Stop date: 04/06/17 17:00:00 FLOSSER Notes: (Same as: Lasix) May cause GI upset. Give with food or milk. Start Date: 03/08/17 Stop Date: 03/08/17 Status: Discontinued Lasix 40 mg oral tablet 40 mg=1 tab, PO, BID, 0 Refill(s) Start Date: 03/08/17 Status: Ordered loratadine 10 mg oral tablet 10 mg=1 tab, PO, Daily, 0 Refill(s) Start Date: 03/08/17 Status: Ordered ondansetron 4 mg, 2 mL, Route: IVP, Drug form: INJ, Q6H, Dosing Weight 99.6, kg, PRN Nausea & Vomiting, Start date: 03/08/17 4:38:00 FLOSSER, Duration: 30 day, Stop date: 04/07/17 4:37:00 FLOSSER Notes: (Same as: Jelena) MEDICATION WASTE Product Size: 4 mgProduct Was mary jane: ___ mg Start Date: 03/08/17 Stop Date: 03/08/17 Status: Discontinued pantoprazole 40 mg oral enteric coated tablet 40 mg=1 tab, PO, Daily, 0 Refill(s) Start Date: 03/08/17 Status: Ordered pneumococcal 23-valent vaccine 0.5 mL, Route: IM, Drug Form: INJ, ONCALL, Start date: 03/08/17 6:38:10 FLOSSER, Sto p date: 04/07/17 6:33:10 FLOSSER Notes: (Same as: Pneumovax 23) Refrigerate Start Date: 03/08/17 Stop Date: 03/08/17 Status: Discontinued potassium chloride 40 mEq, 2 tab, Route: PO, Drug form: ERTAB, ONCE, Dosing Weight 101.364, kg, Sharmila ority: STAT, Start date: 03/07/17 22:25:00 FLOSSER, Stop date: 03/07/17 22:25:00 FLOSSER Notes: (Same as: K-Dur 20)"Do Not Crush" With food and full glass of water Start Date: 03/07/17 Stop Date: 03/07/17 Status: Completed potassium chloride 20 mEq oral tablet, extended release 20 mEq=1 tab, PO, Daily, # 3 tab, 0 Refill(s), [facility] Start Date: 03/08/17 Stop Date: 03/11/17 Status: Ordered potassium chloride 20 mEq oral tablet, extended release 40 mEq, 30 mL, Route: PO, Drug form: LIQ, ONCE, Dosing Weight 99.6, kg, Start da te: 03/08/17 8:36:00 FLOSSER, Stop date: 03/08/17 8:36:00 FLOSSER Notes: (Same as: Potassium Chloride) Start Date: 03/08/17 Stop Date: 03/08/17 Status: Deleted potassium chloride 20 mEq oral tablet, extended release 20 mEq=1 tab, PO, Daily, # 3 tab, 0 Refill(s), Pharmacy: [id number] Start Date: 03/08/17 Stop Date: 03/08/17 Status: Discontinued Ranexa 500 mg oral tablet, extended release 500 mg=1 tab, PO, BID, 0 Refill(s) Start Date: 03/08/17 Status: Ordered ranolazine 500 mg, 1 tab, Route: PO, Drug form: TAB, BID, Dosing Weight 99.6, kg, Start james e: 03/08/17 9:00:00 FLOSSER, Duration: 30 day, Stop date: 04/06/17 17:00:00 FLOSSER Notes: Same as Ranexa"Do Not Crush" Start Date: 03/08/17 Stop Date: 03/08/17 Status: Discontinued rivaroxaban 20 mg, 1 tab, Route: PO, Drug form: TAB, Dinner, Dosing Weight 99.6, kg, Start d ate: 03/08/17 17:00:00 FLOSSER, Duration: 30 day, Stop date: 04/06/17 17:00:00 FLOSSER Notes: (Same as: Xarelto)Administer with food Start Date: 03/08/17 Stop Date: 03/08/17 Status: Discontinued Saline Flush 0.9% 10 mL, Route: IVP, Drug Form: INJ, Dosing Weight 101.364, kg, PRN, PRN Line Flus h, Start date: 03/07/17 20:47:00 FLOSSER, Duration: 30 day, Stop date: 04/06/17 20:4 6:00 FLOSSER Notes: (Same as: BD Posiflush) Start Date: 03/07/17 Stop Date: 03/08/17 Status: Discontinued spironolactone 25 mg oral tablet 25 mg=1 tab, PO, BID, 0 Refill(s) Start Date: 03/08/17 Status: Ordered tizanidine 2 mg oral capsule 2 mg=1 cap, PO, Q8H, PRN for muscle spasm, # 21 cap, 0 Refill(s), Pharmacy: [facility] [id number] Start Date: 03/08/17 Stop Date: 03/08/17 Status: Discontinued tizanidine 2 mg oral capsule 2 mg=1 cap, PO, Q8H, PRN for muscle spasm, # 21 cap, 0 Refill(s), Pharmacy: [facility] [id number] Start Date: 03/08/17 Stop Date: 03/15/17 Status: Ordered trazodone 50 mg oral tablet 50 mg, 1 tab, Route: PO, Drug form: TAB, Bedtime, Dosing Weight 99.6, kg, Priori ty: STAT, Start date: 03/08/17 1:20:00 FLOSSER, Duration: 30 day, Stop date: 8 21:00:00 FLOSSER Notes: (Same As: Veto) Start Date: 03/08/17 Stop Date: 03/08/17 Status: Discontinued Tylenol 325 mg oral tablet 650 mg=2 tab, PO, Q4H, PRN Fever, 0 Refill(s) Start Date: 03/08/17 Status: Ordered Results ELECTROLYTES 1 2 3 Most recent to oldest [Reference Range]: 139 mEq/L (03/08/17 6:29 AM) 137 mEq/L (03/07/17 9:53 PM) Sodium Lvl [135-145 mEq/L] 3.0 mEq/L 1 *CRIT* (03/08/17 6:29 AM) 2.9 mEq/L 2 *CRIT* (03/07/17 9:53 PM) Potassium Lvl [3.5-5.1 mEq/L] 99 mEq/L (03/08/17 6:29 AM) 97 mEq/L (03/07/17 9:53 PM) Chloride Lvl [95-109 mEq/L] 32 mEq/L (03/08/17 6:29 AM) 32 mEq/L (03/07/17 9:53 PM) CO2 [24-32 mEq/L] 11.0 mEq/L (03/08/17 6:29 AM) 10.9 mEq/L (03/07/17 9:53 PM) AGAP [10.0-20.0 mEq/L] 1Result Comment: Critical Result(s) called to jacinta de oliveira at 03/08/2017 07:31 by cz. Read back OK. 2Result Comment: Critical Result(s) called to Jennifer Arenas at 03/07/2017 22:20 by ln. Read back OK. CHEM PANEL 1 2 3 Most recent to oldest [Reference Range]: 1.80 mg/dL *HI* (03/08/17 6:29 AM) 2.00 mg/dL *HI* (03/07/17 9:53 PM) Creatinine Lvl [0.50-1.40 mg/dL] 42 mL/min/1.73m2 1 *NA* (03/08/17 6:29 AM) 37 mL/min/1.73m2 2 *NA* (03/07/17 9:53 PM) eGFR 36 mg/dL *HI* (03/08/17 6:29 AM) 35 mg/dL *HI* (03/07/17 9:53 PM) BUN [7-22 mg/dL] 18 (03/07/17 9:53 PM) B/C Ratio [6-25] 66 mg/dL *LOW* (03/08/17 6:29 AM) 175 mg/dL *HI* (03/07/17 9:53 PM) Glucose Lvl [70-99 mg/dL] 7.6 g/dL (03/07/17 9:53 PM) Total Protein [6.4-8.4 g/dL] 4.0 g/dL (03/07/17 9:53 PM) Albumin Lvl [3.5-5.0 g/dL] 3.6 g/dL (03/07/17 9:53 PM) Globulin [2.7-4.2 g/dL] 1.1 (03/07/17 9:53 PM) A/G Ratio [0.7-1.6] 9.2 mg/dL (03/08/17 6:29 AM) 8.7 mg/dL (03/07/17 9:53 PM) Calcium Lvl [8.5-10.5 mg/dL] 24 unit/L (03/07/17 9:53 PM) ALT [0-65 unit/L] 18 unit/L (03/07/17 9:53 PM) AST [0-37 unit/L] 160 unit/L *HI* (03/07/17 9:53 PM) Alk Phos [39-136 unit/L] 0.5 mg/dL (03/07/17 9:53 PM) Bili Total [0.2-1.3 mg/dL] 1Result Comment: [...] 3 Most recent to oldest [Reference Range]: 177 unit/L (03/08/17 9:18 AM) 163 unit/L (03/08/17 5:06 AM) 197 unit/L *HI* (03/07/17 9:53 PM) Total CK [12-191 unit/L] 0.9 ng/mL (03/08/17 9:18 AM) 0.9 ng/mL (03/08/17 5:06 AM) 1.5 ng/mL (03/07/17 9:53 PM) CK MB [0.5-3.6 ng/mL] 0.5 (03/08/17 9:18 AM) 0.6 (03/08/17 5:06 AM) 0.8 (03/07/17 9:53 PM) CK MB Index [0.0-2.5] 0.04 ng/mL (03/08/17 9:18 AM) 0.04 ng/mL (03/08/17 5:06 AM) 0.03 ng/mL (03/07/17 9:53 PM) Troponin-I [0.00-0.40 ng/mL] 144 pg/mL *HI* (03/07/17 9:53 PM) BNP [<=100 pg/mL] TOXICOLOGY 1 2 3 Most recent to oldest [Reference Range]: 0.8 ng/mL (03/08/17 5:06 AM) Digoxin Lvl [0.8-2.0 ng/mL] HEMATOLOGY 1 2 3 Most recent to oldest [Reference Range]: 9.2 K/CMM (03/07/17 9:53 PM) WBC [3.7-10.4 K/CMM] 5.30 M/CMM (03/07/17 9:53 PM) RBC [4.70-6.10 M/CMM] 15.4 g/dL (03/07/17 9:53 PM) Hgb [14.0-18.0 g/dL] 45.4 % (03/07/17 9:53 PM) Hct [42.0-54.0 %] 85.7 fL (03/07/17 9:53 PM) MCV [80.0-94.0 fL] 29.0 pg (03/07/17 9:53 PM) MCH [27.0-31.0 pg] 33.9 g/dL (03/07/17 9:53 PM) MCHC [32.0-36.0 g/dL] 16.6 % *HI* (03/07/17 9:53 PM) RDW [11.5-14.5 %] 195 K/CMM (03/07/17 9:53 PM) Platelet [133-450 K/CMM] 8.1 fL (03/07/17 9:53 PM) MPV [7.4-10.4 fL] 76.9 % *HI* (03/07/17 9:53 PM) Segs [45.0-75.0 %] 13.0 % *LOW* (03/07/17 9:53 PM) Lymphocytes [20.0-40.0 %] 8.4 % (03/07/17 9:53 PM) Monocytes [2.0-12.0 %] 1.6 % (03/07/17 9:53 PM) Eosinophils [0.0-4.0 %] 0.1 % (03/07/17 9:53 PM) Basophils [0.0-1.0 %] 7.1 K/CMM (03/07/17 9:53 PM) Segs-Bands # [1.5-8.1 K/CMM] 1.2 K/CMM (03/07/17 9:53 PM) Lymphocytes # [1.0-5.5 K/CMM] 0.8 K/CMM (03/07/17 9:53 PM) Monocytes # [0.0-0.8 K/CMM] 0.2 K/CMM (03/07/17 9:53 PM) Eosinophils # [0.0-0.5 K/CMM] 0.0 K/CMM (03/07/17 9:53 PM) Basophils # [0.0-0.2 K/CMM] 24.0 seconds *HI* (03/07/17 9:53 PM) PT [12.0-14.7 seconds] 2.12 *HI* (03/07/17 9:53 PM) INR [0.85-1.17] 40.9 seconds *HI* (03/07/17 9:53 PM) PTT [22.9-35.8 seconds] Immunizations Given and [...] Social History Type Response Substance Abuse Use: Past. Type: Cocaine. Recreational Drug Route: Inhaled. Alcohol Never Smoking Status Never smoker; Exposure to Tobacco Smoke None; Cigarette Smoking Last 365 Days No; Reg Smoking Cessation Counseling No Assessment and Plan Extracted from: Title: Discharge summary Author: Sarah Peña DO Date: 03/08/17 Impression and Plan
--- OUTSIDE RECORDS SUMMARY | 2018-12-19 01:28 | XMS REPORT | Summary of Care ---
Author Author [facility] Organization [facility] Address Unknown Phone Unavailable Encounter SULY Mroales(NILA) [id number] Date(s): 01/20/17 - 01/21/17 [facility] [address] [place] [address]- Discharge Disposition: Home or Self Care Attending Physician: Briana Kincaid MD Admitting Physician: Briana Kincaid MD Vital Signs 1 2 3 Most recent to oldest [Reference Range]: 172.72 cm (01/21/17 1:33 AM) Height 97.9 DegF (01/21/17 11:21 AM) 97.5 DegF (01/21/17 8:00 AM) 97.9 DegF (01/21/17 4:57 AM) Temperature Oral [96.4-99.1 DegF] 126/89 mmHg (01/21/17 11:21 AM) 104/83 mmHg (01/21/17 8:00 AM) 99/68 mmHg (01/21/17 4:57 AM) Blood Pressure [90-140/60-90 mmHg] 20 BRMIN (01/21/17 11:21 AM) 18 BRMIN (01/21/17 8:00 AM) 18 BRMIN (01/21/17 4:57 AM) Respiratory Rate [14-20 BRMIN] 57 bpm *LOW* (01/21/17 11:21 AM) 78 bpm (01/21/17 8:00 AM) 76 bpm (01/21/17 4:57 AM) Peripheral Pulse Rate [60-100 bpm] 101.449 kg (01/21/17 1:33 AM) 102.273 kg (01/20/17 8:04 PM) Weight 34.01 m2 (01/21/17 1:33 AM) Body Mass Index Problem List Condition [...] TAB, Q4H, Dosing Weight 101.449, kg, PRN Pa in 1-3/Temp > 100.4 F, Start date: 01/21/17 1:54:00 CDT, Duration: 30 day, Stop date: 02/20/17 1:53:00 [employer] Notes: Do not exceed 4 gm/day. (Same as: Tylenol) Start Date: 01/21/17 Stop Date: 01/22/17 Status: Discontinued Ativan 1 mg, Route: PO, Drug form: TAB, ONCE, Dosing Weight 102.273, kg, Priority: STAT , Start date: 01/20/17 20:43:00 CDT, Stop date: 01/20/17 20:43:00 CDT Start Date: 01/20/17 Stop Date: 01/20/17 Status: Completed carvedilol 18.75 mg, 1.5 tab, Route: PO, Drug form: TAB, Q12H, Dosing Weight 101.449, kg, S tart date: 01/21/17 9:00:00 CDT, Duration: 30 day, Stop date: 02/19/17 21:00:00 [employer] Notes: Give with food. (Same As: Coreg) Start Date: 01/21/17 Stop Date: 01/22/17 Status: Discontinued carvedilol 12.5 mg oral tablet 18.75 mg=1.5 tab, PO, Q12H, 0 Refill(s) Start Date: 01/21/17 Status: Ordered clonazePAM 1 mg, 1 tab, Route: PO, Drug form: TAB, Bedtime, Dosing Weight 101.449, kg, Star t date: 01/21/17 21:00:00 CDT, Duration: 30 day, Stop date: 02/19/17 21:00:00 CS T Notes: (Same As: KlonoPIN) Start Date: 01/21/17 Stop Date: 01/22/17 Status: Discontinued Dextrose 50% Syringe 25 gm, 50 mL, Route: IVP, Drug Form: INJ, Dosing Weight 101.449, kg, PRN, PRN Bl ood Glucose Results, Start date: 01/21/17 1:57:00 CDT, Duration: 30 day, Stop da te: 02/20/17 0:56:00 [employer] Start Date: 01/21/17 Stop Date: 01/22/17 Status: Discontinued Dextrose 50% Syringe 12.5 gm, 25 mL, Route: IVP, Drug Form: INJ, Dosing Weight 101.449, kg, PRN, PRN Blood Glucose Results, Start date: 01/21/17 1:57:00 CDT, Duration: 30 day, Stop date: 02/20/17 0:56:00 [employer] Start Date: 01/21/17 Stop Date: 01/22/17 Status: Discontinued digoxin 125 mcg (0.125 mg) oral tablet 125 microgram=1 tab, PO, Daily, # 30 tab, 0 Refill(s), Pharmacy: [facility] [id number] Start Date: 01/21/17 Stop Date: 02/20/17 Status: Ordered digoxin 250 mcg (0.25 mg) oral tablet 0.125 mg, 1 tab, Route: PO, Drug form: TAB, Daily, Dosing Weight 101.449, kg, St art date: 01/21/17 9:00:00 CDT, Stop date: 02/19/17 9:00:00 [employer] Notes: Take on an Empty Stomach (Same as: Lanoxin) Start Date: 01/21/17 Stop Date: 01/22/17 Status: Discontinued digoxin 250 mcg (0.25 mg) oral tablet 0.125 mg, PO, Daily, # 30 tab, 0 Refill(s) Start Date: 01/21/17 Stop Date: 01/21/17 Status: Deleted glipiZIDE 10 mg oral tablet, extended release 10 mg=1 tab, PO, BID, 0 Refill(s) Start Date: 01/21/17 Status: Ordered glucagon 1 mg, Route: IM, Drug form: PDR/INJ, PRN, Dosing Weight 101.449, kg, PRN Blood G lucose Results, Start date: 01/21/17 1:57:00 CDT, Duration: 30 day, Stop date: 1 04/22/16 0:56:00 [employer] Start Date: 01/21/17 Stop Date: 01/22/17 Status: Discontinued insulin lispro 4 unit, 0.04 mL, Route: SUB-Q, Drug form: SOLN, Sliding Scale, Dosing Weight 101 .449, kg, PRN Blood Glucose Results, Start date: 01/21/17 1:57:00 CDT, Duration: 30 day, Stop date: 02/20/17 0:56:00 [employer] Notes: Roll in palms of hands gently; Do not shake `vigorously. (Same as: Maribell jacinto )"Single Patient Use Only "WASTE: F/P - Black; E - Municipal Trash Bin Stabl e for 28 days at room temperature.Expires in days from Date Start Date: 01/21/17 Stop Date: 01/22/17 Status: Discontinued insulin lispro 5 unit, 0.05 mL, Route: SUB-Q, Drug form: SOLN, Sliding Scale, Dosing Weight 101 .449, kg, PRN Blood Glucose Results, Start date: 01/21/17 1:57:00 CDT, Duration: 30 day, Stop date: 02/20/17 0:56:00 [employer] Notes: Roll in palms of hands gently; Do not shake `vigorously. ([facility]: [facility]Single Patient Use Only "WASTE: F/P - Black; E - Municipal Trash Bin Stabl e for 28 days at room temperature.Expires in days from Date Start Date: 01/21/17 Stop Date: 01/22/17 Status: Discontinued insulin lispro 2 unit, 0.02 mL, Route: SUB-Q, Drug form: SOLN, Sliding Scale, Dosing Weight 101 .449, kg, PRN Blood Glucose Results, Start date: 01/21/17 1:57:00 CDT, Duration: 30 day, Stop date: 02/20/17 0:56:00 [employer] Notes: Roll in palms of hands gently; Do not shake `vigorously. (Same as: Humal og )"Single Patient Use Only "WASTE: F/P - Black; E - Municipal Trash Bin Stabl e for 28 days at room temperature.Expires in days from Date Start Date: 01/21/17 Stop Date: 01/22/17 Status: Discontinued insulin lispro 1 unit, 0.01 mL, Route: SUB-Q, Drug form: SOLN, Sliding Scale, Dosing Weight 101 .449, kg, PRN Blood Glucose Results, Start date: 01/21/17 1:57:00 CDT, Duration: 30 day, Stop date: 02/20/17 0:56:00 [employer] Notes: Roll in palms of hands gently; Do not shake `vigorously. (Same as: Humal og )"Single Patient Use Only "WASTE: F/P - Black; E - Municipal Trash Bin Stabl e for 28 days at room temperature.Expires in days from Date Start Date: 01/21/17 Stop Date: 01/22/17 Status: Discontinued insulin lispro 3 unit, 0.03 mL, Route: SUB-Q, Drug form: SOLN, Sliding Scale, Dosing Weight 101 .449, kg, PRN Blood Glucose Results, Start date: 01/21/17 1:57:00 CDT, Duration: 30 day, Stop date: 02/20/17 0:56:00 [employer] Notes: Roll in palms of hands gently; Do not shake `vigorously. (Same as: Humal og )"Single Patient Use Only "WASTE: F/P - Black; E - Municipal Trash Bin Stabl e for 28 days at room temperature.Expires in days from Date Start Date: 01/21/17 Stop Date: 01/22/17 Status: Discontinued lisinopril 2.5 mg, 0.5 tab, Route: PO, Drug form: TAB, Daily, Dosing Weight 101.449, kg, St art date: 01/21/17 9:00:00 CDT, Duration: 30 day, Stop date: 02/19/17 9:00:00 CS T Notes: (Same as: Prinivil, Zestril) Start Date: 01/21/17 Stop Date: 01/22/17 Status: Discontinued lisinopril 2.5 mg oral tablet 2.5 mg=1 tab, PO, Daily, 0 Refill(s) Start Date: 01/21/17 Status: Ordered morphine Sulfate 6 mg, 3 mL, Route: PO, Drug form: SOLN, Q4H, Dosing Weight 101.449, kg, PRN Pain Score 7-10, Start date: 01/21/17 1:54:00 CDT, Duration: 30 day, Stop date: 01/26 10/10 1:53:00 [employer] Notes: (Same as:MORPhine Sulfate) Start Date: 01/21/17 Stop Date: 01/22/17 Status: Discontinued nitroglycerin 2% ointment 1 inch, Route: TOP, Dosing Weight 102.273, kg, ONCE, STAT, Start date: 01/20/17 20:32:00 CDT, Stop date: 01/20/17 20:32:00 CDT Start Date: 01/20/17 Stop Date: 01/20/17 Status: Completed [place] 10/325 oral tablet 1 tab, Route: PO, Drug Form: TAB, Dosing Weight 102.273, kg, ONCE, STAT, Start d ate: 01/20/17 20:43:00 CDT, Stop date: 01/20/17 20:43:00 CDT Start Date: 01/20/17 Stop Date: 01/20/17 Status: Completed ondansetron 4 mg, 2 mL, Route: IVP, Drug form: INJ, Q6H, Dosing Weight 101.449, kg, PRN Naus ea & Vomiting, Start date: 01/21/17 1:54:00 CDT, Duration: 30 day, Stop date: 02/20/17 1:53:00 [employer] Notes: (Same as: Jelena) MEDICATION WASTE Product Size: 4 mgProduct Was mary jane: ___ mg Start Date: 01/21/17 Stop Date: 01/22/17 Status: Discontinued ondansetron 4 mg, Route: IVP, ONCE, Dosing Weight 102.273, kg, Priority: STAT, Start date: 1 20:32:00 CDT, Stop date: 01/20/17 20:32:00 CDT Start Date: 01/20/17 Stop Date: 01/20/17 Status: Completed pantoprazole 40 mg, 1 tab, Route: PO, Drug form: ECTAB, Before Breakfast, Dosing Weight 101.4 49, kg, Start date: 01/21/17 7:30:00 CDT, Duration: 30 day, Stop date: 02/19/17 7:30:00 [employer] Notes: Tablet should not be chewed or crushed.(Same as: Protonix) Start Date: 01/21/17 Stop Date: 01/22/17 Status: Discontinued potassium chloride 40 mEq, 2 tab, Route: PO, Drug form: ERTAB, ONCE, Dosing Weight 101.449, kg, Sta rt date: 01/21/17 3:48:00 CDT, Stop date: 01/21/17 3:48:00 CDT Notes: (Same as: K-Dur 20)"Do Not Crush" With food and full glass of water Start Date: 01/21/17 Stop Date: 01/21/17 Status: Completed Ranexa 500 mg oral tablet, extended release 500 mg=1 tab, PO, Q12H, 0 Refill(s) Start Date: 01/21/17 Status: Ordered Ranexa 500 mg oral tablet, extended release 500 mg, 1 tab, Route: PO, Drug form: TAB, Q12H, Dosing Weight 101.449, kg, Start date: 01/21/17 9:00:00 CDT, Duration: 30 day, Stop date: 02/19/17 21:00:00 [employer] Notes: Same as Ranexa"Do Not Crush" Start Date: 01/21/17 Stop Date: 01/22/17 Status: Discontinued Risperdal 2 mg, 1 tab, Route: PO, Drug form: TAB, Bedtime, Dosing Weight 101.449, kg, Star t date: 01/21/17 21:00:00 CDT, Duration: 30 day, Stop date: 02/19/17 21:00:00 CS T Notes: (Same as: Risperdal) Start Date: 01/21/17 Stop Date: 01/22/17 Status: Discontinued Risperdal 2 mg oral tablet 2 mg=1 tab, PO, Bedtime, # 60 tab, 0 Refill(s) Start Date: 01/21/17 Status: Ordered rivaroxaban 20 mg, 1 tab, Route: PO, Drug form: TAB, Daily, Dosing Weight 101.449, kg, Start date: 01/21/17 9:00:00 CDT, Duration: 30 day, Stop date: 02/19/17 9:00:00 [employer] Notes: (Same as: Xarelto)Administer with food Start Date: 01/21/17 Stop Date: 01/22/17 Status: Discontinued Saline Flush 0.9% 10 mL, Route: IVP, Drug Form: INJ, Dosing Weight 102.273, kg, PRN, PRN Line Flus h, Start date: 01/20/17 20:32:00 CDT, Duration: 30 day, Stop date: 02/19/17 19:3 1:00 [employer] Notes: (Same as: BD Posiflush) Start Date: 01/20/17 Stop Date: 01/22/17 Status: Discontinued Sodium Chloride 0.9% IV 250 mL, Route: IVPB, Start date: 01/21/17 3:54:00 CDT, Duration: 30 day, Stop da te: 02/20/17 2:53:00 [employer], PRN Line Flush Start Date: 01/21/17 Stop Date: 01/22/17 Status: Discontinued torsemide 20 mg, 1 tab, Route: PO, Drug form: TAB, Daily, Dosing Weight 101.449, kg, Start date: 01/21/17 9:00:00 CDT, Duration: 30 day, Stop date: 02/19/17 9:00:00 [employer] Notes: (Same As: Demadex) Start Date: 01/21/17 Stop Date: 01/22/17 Status: Discontinued trazodone 50 mg oral tablet 50 mg, 1 tab, Route: PO, Drug form: TAB, Bedtime, Dosing Weight 101.449, kg, Sta rt date: 01/21/17 21:00:00 CDT, Duration: 30 day, Stop date: 02/19/17 21:00:[address] Notes: (Same As: Veto) Start Date: 01/21/17 Stop Date: 01/22/17 Status: Discontinued zolpidem 10 mg, 2 tab, Route: PO, Drug form: TAB, Bedtime, Dosing Weight 101.449, kg, PRN Sleep, Start date: 01/21/17 3:49:00 CDT, Duration: 30 day, Stop date: 02/20/17 3:48:00 [employer] Notes: (Same As: Phong) Start Date: 01/21/17 Stop Date: 01/22/17 Status: Discontinued Results ELECTROLYTES Most recent to 1 2 oldest [Reference Range]: Sodium Lvl [135-145 134 mEq/L 136 mEq/L mEq/L] *LOW* (01/20/17 8:37 PM) (01/21/17 3:51 AM) Potassium Lvl 3.1 mEq/L 3.1 mEq/L [3.5-5.1 mEq/L] *LOW* *LOW* (01/21/17 3:51 AM) (01/20/17 8:37 PM) Chloride Lvl [95-109 92 mEq/L 94 mEq/L mEq/L] *LOW* *LOW* (01/21/17 3:51 AM) (01/20/17 8:37 PM) CO2 [24-32 mEq/L] 31 mEq/L 34 mEq/L (01/21/17 3:51 AM) *HI* (01/20/17 8:37 PM) AGAP [10.0-20.0 14.1 mEq/L 11.1 mEq/L mEq/L] (01/21/17 3:51 AM) (01/20/17 8:37 PM) CHEM PANEL Most recent to 1 2 oldest [Reference Range]: Creatinine Lvl 2.00 mg/dL 2.10 mg/dL [0.50-1.40 mg/dL] *HI* *HI* (01/21/17 3:51 AM) (01/20/17 8:37 PM) eGFR 37 mL/min/1.73m2 1 35 mL/min/1.73m2 2 *NA* *NA* (01/21/17 3:51 AM) (01/20/17 8:37 PM) BUN [7-22 mg/dL] 38 mg/dL 35 mg/dL *HI* *HI* (01/21/17 3:51 AM) (01/20/17 8:37 PM) B/C Ratio [6-25] 17 (01/20/17 8:37 PM) Glucose Lvl [70-99 159 mg/dL 159 mg/dL mg/dL] *HI* *HI* (01/21/17 3:51 AM) (01/20/17 8:37 PM) Total Protein 8.5 g/dL [6.4-8.4 g/dL] *HI* (01/20/17 8:37 PM) Albumin Lvl [3.5-5.0 4.2 g/dL g/dL] (01/20/17 8:37 PM) Globulin [2.7-4.2 4.3 g/dL g/dL] *HI* (01/20/17 8:37 PM) A/G Ratio [0.7-1.6] 1.0 (01/20/17 8:37 PM) Calcium Lvl 9.8 mg/dL 9.4 mg/dL [8.5-10.5 mg/dL] (01/21/17 3:51 AM) (01/20/17 8:37 PM) ALT [0-65 unit/L] 34 unit/L (01/20/17 8:37 PM) AST [0-37 unit/L] 24 unit/L (01/20/17 8:37 PM) Alk Phos [39-136 140 unit/L unit/L] *HI* (01/20/17 8:37 PM) Bili Total [0.2-1.3 0.6 mg/dL mg/dL] (01/20/17 8:37 PM) Lipase Lvl [73-393 158 unit/L unit/L] (01/20/17 8:37 PM) 1Result Comment: The eGFR is calculated [...] BMI. CARDIAC ENZYMES Most recent to 1 2 oldest [Reference Range]: Total CK [12-191 123 unit/L 139 unit/L unit/L] (01/21/17 3:51 AM) (01/20/17 8:37 PM) CK MB [0.5-3.6 1.2 ng/mL 1.2 ng/mL ng/mL] (01/21/17 3:51 AM) (01/20/17 8:37 PM) CK MB Index 1.0 0.9 [0.0-2.5] (01/21/17 3:51 AM) (01/20/17 8:37 PM) Troponin-I 0.02 ng/mL 0.02 ng/mL [0.00-0.40 ng/mL] (01/21/17 3:51 AM) (01/20/17 8:37 PM) BNP [<=100 pg/mL] 200 pg/mL *HI* (01/20/17 8:37 PM) DRUG SCREEN Most recent to 1 2 oldest [Reference Range]: U Amph Scr Negative [Negative] *NA* (01/20/17 9:45 PM) U Brigette Scr Negative [Negative] *NA* (01/20/17 9:45 PM) U Benzodia Scr Negative [Negative] *NA* (01/20/17 9:45 PM) U Cocaine Scr Negative [Negative] *NA* (01/20/17 9:45 PM) U Opiate Scr Negative [Negative] *NA* (01/20/17 9:45 PM) U Phencyc Scr Negative [Negative] *NA* (01/20/17 9:45 PM) U Cannab Scr Negative [Negative] *NA* (01/20/17 9:45 PM) UDS Note See Note (01/20/17 9:45 PM) HEMATOLOGY Most recent to 1 2 oldest [Reference Range]: WBC [3.7-10.4 K/CMM] 10.2 K/CMM 11.2 K/CMM (01/21/17 3:51 AM) *HI* (01/20/17 8:37 PM) RBC [4.70-6.10 5.88 M/CMM 6.17 M/CMM M/CMM] (01/21/17 3:51 AM) *HI* (01/20/17 8:37 PM) Hgb [14.0-18.0 g/dL] 16.8 g/dL 17.8 g/dL (01/21/17 3:51 AM) (01/20/17 8:37 PM) Hct [42.0-54.0 %] 49.8 % 54.1 % (01/21/17 3:51 AM) *HI* (01/20/17 8:37 PM) MCV [80.0-94.0 fL] 84.6 fL 87.7 fL (01/21/17 3:51 AM) (01/20/17 8:37 PM) MCH [27.0-31.0 pg] 28.6 pg 28.8 pg (01/21/17 3:51 AM) (01/20/17 8:37 PM) MCHC [32.0-36.0 33.8 g/dL 32.8 g/dL g/dL] (01/21/17 3:51 AM) (01/20/17 8:37 PM) RDW [11.5-14.5 %] 16.4 % 16.0 % *HI* *HI* (01/21/17 3:51 AM) (01/20/17 8:37 PM) Platelet [133-450 187 K/CMM 194 K/CMM K/CMM] (01/21/17 3:51 AM) (01/20/17 8:37 PM) MPV [7.4-10.4 fL] 8.4 fL 8.4 fL (01/21/17 3:51 AM) (01/20/17 8:37 PM) Segs [45.0-75.0 %] 66.3 % 81.2 % (01/21/17 3:51 AM) *HI* (01/20/17 8:37 PM) Lymphocytes 18.5 % 11.0 % [20.0-40.0 %] *LOW* *LOW* (01/21/17 3:51 AM) (01/20/17 8:37 PM) Monocytes [2.0-12.0 13.2 % 7.2 % %] *HI* (01/20/17 8:37 PM) (01/21/17 3:51 AM) Eosinophils [0.0-4.0 1.6 % 0.5 % %] (01/21/17 3:51 AM) (01/20/17 8:37 PM) Basophils [0.0-1.0 0.4 % 0.1 % %] (01/21/17 3:51 AM) (01/20/17 8:37 PM) Segs-Bands # 6.7 K/CMM 9.1 K/CMM [1.5-8.1 K/CMM] (01/21/17 3:51 AM) *HI* (01/20/17 8:37 PM) Lymphocytes # 1.9 K/CMM 1.2 K/CMM [1.0-5.5 K/CMM] (01/21/17 3:51 AM) (01/20/17 8:37 PM) Monocytes # [0.0-0.8 1.3 K/CMM 0.8 K/CMM K/CMM] *HI* (01/20/17 8:37 PM) (01/21/17 3:51 AM) Eosinophils # 0.2 K/CMM 0.1 K/CMM [0.0-0.5 K/CMM] (01/21/17 3:51 AM) (01/20/17 8:37 PM) Basophils # [0.0-0.2 0.0 K/CMM K/CMM] (01/20/17 8:37 PM) PT [12.0-14.7 26.9 seconds seconds] *HI* (01/20/17 8:37 PM) INR [0.85-1.17] 2.45 *HI* (01/20/17 8:37 PM) PTT [22.9-35.8 42.9 seconds seconds] *HI* (01/20/17 8:37 PM) Immunizations Given and Recorded Vaccine Date [...] Inhaled. Alcohol Never Smoking Status Never smoker; Ready to change: No; Concerns about tobacco use in household: Yes; Exposure to Tobacco Smoke None; Cigarette Smoking Last 365 Days No; Reg Smoking Cessation Counseling Yes Assessment and Plan Extracted from: Title: Discharge Summary * Author: Susanna Hernandez NP [employer] Date: 01/21/17 Patient: NELI ABRAHAM Age: 51 years Sex: Male : 1965 Associated Diagnoses: None Author: Susanna Hernandez NP [employer] Discharge Information date of admission - 01/20/2017 date of discharge 01/21/2017 Consults:Dr Holloway cardiology DX 1 . Acute chest pain to rule out acute coronary syndrome: Cardiac enzymes are negative, ACS ruled out. cardiology consulted, Dr. Holloway patient cleared by cardiology for discharge. 2. [...] Neurologic: Alert, Oriented. Psychiatric: Cooperative, Appropriate mood & affect. Hospital Course This is a 51-year-old gentleman with a past medical history of severe dilated cardiomyopathy, nonischemic, AICD placement, history of substance abuse, hypertension, chronic atrial fibrillation who came into the ER for evaluation of left-sided chest pain. In the ER patient received lorazepam as well as Nitropaste chest pain improved patient seen by solar photovoltaic electrician Dr. holloway. According to cardiology chest pain may be likely due to severe dilated cardiomyopathy. Digoxin decreased to 0.125 mg once a day patient is to continue Xarelto for anticoagulation. Patient cleared by cardiology and myocardial infarction ruled out. Therefore will discharge patient home today and he is to follow-up with his solar photovoltaic electrician as well as PCP. Discharge Plan Discharge patient home Follow up with PCP as well as cardiology in 1 week Activities as tolerated AHA diet Patient condition stable Addendum pt. seen and examined with [employer]ER by Shelley, agree with above note Yrn JETT 1. chest pain- ekg showed no acute ischemic changes. ce neg. evaluated by cardiology and on ok for outpatient follow up 01/21/2017 22:08
--- OUTSIDE RECORDS SUMMARY | 2018-12-19 01:28 | XMS REPORT | Summary of Care ---
Author Author [facility] Organization [facility] Address Unknown Phone Unavailable Encounter HQ Carmen(NILA) [id number] Date(s): 02/20/17 - 02/22/17 [facility] [address] [address] [phone]- [phone] Discharge Disposition: Home or Self Care Attending Physician: Jacob Roberson MD Admitting Physician: Jacob Roberson MD Vital Signs 1 2 3 Most recent to oldest [Reference Range]: 170.18 cm (02/20/17 8:23 PM) 170.18 cm (02/20/17 4:44 PM) Height 101.051 kg (02/21/17 4:51 AM) Current Weight 97.8 DegF (02/22/17 11:23 AM) 97.8 DegF (02/22/17 7:31 AM) 97.6 DegF (02/22/17 5:22 AM) Temperature Oral [96.4-99.1 DegF] 97/69 mmHg (02/22/17 11:23 AM) 111/65 mmHg (02/22/17 7:31 AM) 107/65 mmHg (02/22/17 5:22 AM) Blood Pressure [90-140/60-90 mmHg] 18 BRMIN (02/22/17 11:23 AM) 18 BRMIN (02/22/17 7:31 AM) 18 BRMIN (02/22/17 5:22 AM) Respiratory Rate [14-20 BRMIN] 64 bpm (02/22/17 11:23 AM) 54 bpm *LOW* (02/22/17 7:31 AM) 69 bpm (02/22/17 5:22 AM) Peripheral Pulse Rate [60-100 bpm] 101.364 kg (02/20/17 8:23 PM) 102.727 kg (02/20/17 4:44 PM) Weight 35 m2 (02/20/17 8:23 PM) 35.47 m2 (02/20/17 4:44 PM) Body Mass Index Problem List Condition [...] Medications acetaminophen-hydrocodone 325 mg-5 mg oral tablet 1 tab, Route: PO, Drug Form: TAB, Dosing Weight 101.364, kg, Q4H, PRN Pain Score 4-6, Start date: 02/20/17 21:21:00 DRIVER LICENSE EXAMINER, Duration: 30 day, Stop date: 03/22/17 2 1:20:00 DRIVER LICENSE EXAMINER Notes: (Same as: [place] 325/5) Do not exceed 4gm/day of acetaminophen. Start Date: 02/20/17 Stop Date: 02/22/17 Status: Discontinued carvedilol 18.75 mg, 1.5 tab, Route: PO, Drug form: TAB, Q12H, Dosing Weight 101.364, kg, S tart date: 02/21/17 9:00:00 DRIVER LICENSE EXAMINER, Duration: 30 day, Stop date: 03/22/17 21:00:00 DRIVER LICENSE EXAMINER Notes: Give with food. (Same As: Coreg) Start Date: 02/21/17 Stop Date: 02/22/17 Status: Discontinued clonazePAM 1 mg, 2 tab, Route: PO, Drug form: TAB, Bedtime, Dosing Weight 101.364, kg, Star t date: 02/20/17 23:30:00 DRIVER LICENSE EXAMINER, Duration: 30 day, Stop date: 03/22/17 21:00:00 CS T Notes: (Same As: KlonoPIN) Start Date: 02/20/17 Stop Date: 02/22/17 Status: Discontinued Dextrose 50% Syringe 25 gm, 50 mL, Route: IVP, Drug Form: INJ, Dosing Weight 101.364, kg, PRN, PRN Bl ood Glucose Results, Start date: 02/20/17 21:28:00 DRIVER LICENSE EXAMINER, Duration: 30 day, Stop d ate: 03/22/17 21:27:00 DRIVER LICENSE EXAMINER Start Date: 02/20/17 Stop Date: 02/22/17 Status: Discontinued Dextrose 50% Syringe 12.5 gm, 25 mL, Route: IVP, Drug Form: INJ, Dosing Weight 101.364, kg, PRN, PRN Blood Glucose Results, Start date: 02/20/17 21:28:00 DRIVER LICENSE EXAMINER, Duration: 30 day, Stop date: 03/22/17 21:27:00 DRIVER LICENSE EXAMINER Start Date: 02/20/17 Stop Date: 02/22/17 Status: Discontinued Geodon 10 mg, Route: IM, Drug form: PDR/INJ, ONCE, Dosing Weight 101.364, kg, PRN Agita tion, Start date: 02/21/17 6:38:00 DRIVER LICENSE EXAMINER Notes: Reconstitute with 1.2 ml of sterile water. Final concentration=20 mg/1ml . Maximum 40 mg/24 hours (Same As: Geodon). MEDICATION WASTE Pr oduct Size: 20 mgProduct Wasted: _10__ mg Start Date: 02/21/17 Stop Date: 02/21/17 Status: Completed glucagon 1 mg, Route: IM, Drug form: PDR/INJ, PRN, Dosing Weight 101.364, kg, PRN Blood G lucose Results, Start date: 02/20/17 21:28:00 DRIVER LICENSE EXAMINER, Duration: 30 day, Stop date: 03/22/17 21:27:00 DRIVER LICENSE EXAMINER Start Date: 02/20/17 Stop Date: 02/22/17 Status: Discontinued insulin lispro 4 unit, 0.04 mL, Route: SUB-Q, Drug form: SOLN, TID-Before Meals, Dosing Weight 101.364, kg, PRN Blood Glucose Results, Start date: 02/20/17 21:28:00 DRIVER LICENSE EXAMINER, Durat ion: 30 day, Stop date: 03/22/17 21:27:00 DRIVER LICENSE EXAMINER Notes: Roll in palms of hands gently; Do not shake `vigorously. (Same as: Maribell og )"Single Patient Use Only "WASTE: F/P - Black; E - Municipal Trash Bin Stabl e for 28 days at room temperature.Expires in days from Date Start Date: 02/20/17 Stop Date: 02/22/17 Status: Discontinued insulin lispro 2 unit, 0.02 mL, Route: SUB-Q, Drug form: SOLN, TID-Before Meals, Dosing Weight 101.364, kg, PRN Blood Glucose Results, Start date: 02/20/17 21:28:00 DRIVER LICENSE EXAMINER, Durat ion: 30 day, Stop date: 03/22/17 21:27:00 DRIVER LICENSE EXAMINER Notes: Roll in palms of hands gently; Do not shake `vigorously. (Same as: Humbharti og )"Single Patient Use Only "WASTE: F/P - Black; E - Municipal Trash Bin Stabl e for 28 days at room temperature.Expires in days from Date Start Date: 02/20/17 Stop Date: 02/22/17 Status: Discontinued insulin lispro 10 unit, 0.1 mL, Route: SUB-Q, Drug form: SOLN, TID-Before Meals, Dosing Weight 101.364, kg, PRN Blood Glucose Results, Start date: 02/20/17 21:28:00 DRIVER LICENSE EXAMINER, Durat ion: 30 day, Stop date: 03/22/17 21:27:00 DRIVER LICENSE EXAMINER Notes: Roll in palms of hands gently; Do not shake `vigorously. (Same as: Maribell og )"Single Patient Use Only "WASTE: F/P - Black; E - Municipal Trash Bin Stabl e for 28 days at room temperature.Expires in days from Date Start Date: 02/20/17 Stop Date: 02/22/17 Status: Discontinued insulin lispro 6 unit, 0.06 mL, Route: SUB-Q, Drug form: SOLN, TID-Before Meals, Dosing Weight 101.364, kg, PRN Blood Glucose Results, Start date: 02/20/17 21:28:00 DRIVER LICENSE EXAMINER, Durat ion: 30 day, Stop date: 03/22/17 21:27:00 DRIVER LICENSE EXAMINER Notes: Roll in palms of hands gently; Do not shake `vigorously. (Same as: Maribell jacinto )"Single Patient Use Only "WASTE: F/P - Black; E - Municipal Trash Bin Stabl e for 28 days at room temperature.Expires in days from Date Start Date: 02/20/17 Stop Date: 02/22/17 Status: Discontinued insulin lispro 8 unit, 0.08 mL, Route: SUB-Q, Drug form: SOLN, TID-Before Meals, Dosing Weight 101.364, kg, PRN Blood Glucose Results, Start date: 02/20/17 21:28:00 DRIVER LICENSE EXAMINER, Durat ion: 30 day, Stop date: 03/22/17 21:27:00 DRIVER LICENSE EXAMINER Notes: Roll in palms of hands gently; Do not shake `vigorously. (Same as: Maribell jacinto )"Single Patient Use Only "WASTE: F/P - Black; E - Municipal Trash Bin Stabl e for 28 days at room temperature.Expires in days from Date Start Date: 02/20/17 Stop Date: 02/22/17 Status: Discontinued lisinopril 2.5 mg, 0.5 tab, Route: PO, Drug form: TAB, Daily, Dosing Weight 101.364, kg, St art date: 02/21/17 9:00:00 DRIVER LICENSE EXAMINER, Duration: 30 day, Stop date: 03/22/17 9:00:00 CS T Notes: (Same as: Charles Hessstril) Start Date: 02/21/17 Stop Date: 02/22/17 Status: Discontinued LORazepam 1 mg, 1 tab, Route: PO, Drug form: TAB, ONCE, Dosing Weight 101.364, kg, Priorit y: NOW, Start date: 02/21/17 4:55:00 DRIVER LICENSE EXAMINER, Stop date: 02/21/17 4:55:00 DRIVER LICENSE EXAMINER Notes: (Same as: Ativan) Start Date: 02/21/17 Stop Date: 02/21/17 Status: Completed morphine Sulfate 6 mg, 3 mL, Route: PO, Drug form: SOLN, Q4H, PRN Pain Score 7-10, Start date: 22:13:00 DRIVER LICENSE EXAMINER, Duration: 30 day, Stop date: 03/22/17 22:12:00 DRIVER LICENSE EXAMINER Notes: (Same as:MORPhine Sulfate) Start Date: 02/20/17 Stop Date: 02/22/17 Status: Discontinued morphine Sulfate 2 mg, Route: IVP, Q4H, Dosing Weight 101.364, kg, PRN Pain Score 7-10, Start james e: 02/20/17 21:21:00 DRIVER LICENSE EXAMINER, Duration: 30 day, Stop date: 03/22/17 21:20:00 DRIVER LICENSE EXAMINER Start Date: 02/20/17 Stop Date: 02/20/17 Status: Deleted Risperdal 2 mg, 2 tab, Route: PO, Drug form: TAB, Bedtime, Dosing Weight 101.364, kg, Star t date: 02/20/17 23:30:00 DRIVER LICENSE EXAMINER, Duration: 30 day, Stop date: 03/22/17 21:00:00 CS T Notes: (Same as: Risperdal) Start Date: 02/20/17 Stop Date: 02/22/17 Status: Discontinued rivaroxaban 20 mg oral tablet 20 mg=1 tab, PO, Daily, 0 Refill(s) Start Date: 02/20/17 Status: Ordered Saline Flush 0.9% 10 mL, Route: IVP, Drug Form: INJ, Dosing Weight 102.727, kg, PRN, PRN Line Flus h, Start date: 02/20/17 16:50:00 DRIVER LICENSE EXAMINER, Duration: 30 day, Stop date: 03/22/17 16:4 9:00 DRIVER LICENSE EXAMINER Notes: (Same as: BD Posiflush) Start Date: 02/20/17 Stop Date: 02/22/17 Status: Discontinued torsemide 20 mg, 2 tab, Route: PO, Drug form: TAB, Daily, Dosing Weight 101.364, kg, Start date: 02/21/17 9:00:00 DRIVER LICENSE EXAMINER, Duration: 30 day, Stop date: 03/22/17 9:00:00 DRIVER LICENSE EXAMINER Notes: (Same As: Demadex) Start Date: 02/21/17 Stop Date: 02/22/17 Status: Discontinued torsemide 20 mg oral tablet 20 mg=1 tab, PO, Daily, # 30 tab, 1 Refill(s) Start Date: 02/20/17 Status: Ordered trazodone 50 mg oral tablet 50 mg, 1 tab, Route: PO, Drug form: TAB, Bedtime, Dosing Weight 101.364, kg, Sta rt date: 02/20/17 23:30:00 DRIVER LICENSE EXAMINER, Duration: 30 day, Stop date: 03/22/17 21:00:[address] Notes: (Same As: Desyrel) Start Date: 02/20/17 Stop Date: 02/22/17 Status: Discontinued Results ELECTROLYTES 1 2 3 Most recent to oldest [Reference Range]: 138 mEq/L (02/20/17 5:43 PM) Sodium Lvl [135-145 mEq/L] 4.3 mEq/L (02/20/17 5:43 PM) Potassium Lvl [3.5-5.1 mEq/L] 99 mEq/L (02/20/17 5:43 PM) Chloride Lvl [95-109 mEq/L] 32 mEq/L (02/20/17 5:43 PM) CO2 [24-32 mEq/L] 11.3 mEq/L (02/20/17 5:43 PM) AGAP [10.0-20.0 mEq/L] CHEM PANEL 1 2 3 Most recent to oldest [Reference Range]: 1.79 mg/dL *HI* (02/20/17 5:43 PM) Creatinine Lvl [0.50-1.40 mg/dL] 43 mL/min/1.73m2 1 *NA* (02/20/17 5:43 PM) eGFR 29 mg/dL *HI* (02/20/17 5:43 PM) BUN [7-22 mg/dL] 16 (02/20/17 5:43 PM) B/C Ratio [6-25] 76 mg/dL (02/20/17 5:43 PM) Glucose Lvl [70-99 mg/dL] 7.5 g/dL (02/20/17 5:43 PM) Total Protein [6.4-8.4 g/dL] 3.7 g/dL (02/20/17 5:43 PM) Albumin Lvl [3.5-5.0 g/dL] 3.8 g/dL (02/20/17 5:43 PM) Globulin [2.7-4.2 g/dL] 1.0 (02/20/17 5:43 PM) A/G Ratio [0.7-1.6] 8.8 mg/dL (02/20/17 5:43 PM) Calcium Lvl [8.5-10.5 mg/dL] 26 unit/L (02/20/17 5:43 PM) ALT [0-65 unit/L] 24 unit/L (02/20/17 5:43 PM) AST [0-37 unit/L] 107 unit/L (02/20/17 5:43 PM) Alk Phos [39-136 unit/L] 0.6 mg/dL (02/20/17 5:43 PM) Bili Total [0.2-1.3 mg/dL] 1Result Comment: [...] 3 Most recent to oldest [Reference Range]: 152 unit/L (02/21/17 1:58 AM) 168 unit/L (02/20/17 9:50 PM) 224 unit/L *HI* (02/20/17 5:43 PM) Total CK [12-191 unit/L] 1.1 ng/mL (02/21/17 1:58 AM) 1.1 ng/mL (02/20/17 9:50 PM) 0.9 ng/mL (02/20/17 5:43 PM) CK MB [0.5-3.6 ng/mL] 0.7 (02/21/17 1:58 AM) 0.7 (02/20/17 9:50 PM) 0.4 (02/20/17 5:43 PM) CK MB Index [0.0-2.5] <0.02 ng/mL (02/21/17 1:58 AM) <0.02 ng/mL (02/20/17 9:50 PM) <0.02 ng/mL (02/20/17 5:43 PM) Troponin-I [0.00-0.40 ng/mL] 205 pg/mL *HI* (02/20/17 5:43 PM) BNP [<=100 pg/mL] LIPIDS 1 2 3 Most recent to oldest [Reference Range]: 4.62 (02/21/17 1:58 AM) CHD Risk [4.00-7.30] 157 mg/dL (02/21/17 1:58 AM) Chol [<=199 mg/dL] 154 mg/dL *HI* (02/21/17 1:58 AM) Trig [<=149 mg/dL] 34 mg/dL *LOW* (02/21/17 1:58 AM) HDL [>=61 mg/dL] 92 mg/dL (02/21/17 1:58 AM) LDL (Calculated) [<=99 mg/dL] 31 *NA* (02/21/17 1:58 AM) VLDL DRUG SCREEN 1 2 3 Most recent to oldest [Reference Range]: Negative *NA* (02/21/17 2:03 AM) U Amph Scr [Negative] Negative *NA* (02/21/17 2:03 AM) U Brigette Scr [Negative] Negative *NA* (02/21/17 2:03 AM) U Benzodia Scr [Negative] Negative *NA* (02/21/17 2:03 AM) U Cocaine Scr [Negative] Positive *ABN* (02/21/17 2:03 AM) U Opiate Scr [Negative] Negative *NA* (02/21/17 2:03 AM) U Phencyc Scr [Negative] Negative *NA* (02/21/17 2:03 AM) U Cannab Scr [Negative] See Note (02/21/17 2:03 AM) UDS Note TOXICOLOGY 1 2 3 Most recent to oldest [Reference Range]: 0.9 ng/mL (02/20/17 5:43 PM) Digoxin Lvl [0.8-2.0 ng/mL] HEMATOLOGY 1 2 3 Most recent to oldest [Reference Range]: 13.9 K/CMM *HI* (02/20/17 5:43 PM) WBC [3.7-10.4 K/CMM] 5.55 M/CMM (02/20/17 5:43 PM) RBC [4.70-6.10 M/CMM] 15.8 g/dL (02/20/17 5:43 PM) Hgb [14.0-18.0 g/dL] 46.2 % (02/20/17 5:43 PM) Hct [42.0-54.0 %] 83.3 fL (02/20/17 5:43 PM) MCV [80.0-94.0 fL] 28.4 pg (02/20/17 5:43 PM) MCH [27.0-31.0 pg] 34.2 g/dL (02/20/17 5:43 PM) MCHC [32.0-36.0 g/dL] 16.1 % *HI* (02/20/17 5:43 PM) RDW [11.5-14.5 %] 178 K/CMM (02/20/17 5:43 PM) Platelet [133-450 K/CMM] 8.3 fL (02/20/17 5:43 PM) MPV [7.4-10.4 fL] 80.6 % *HI* (02/20/17 5:43 PM) Segs [45.0-75.0 %] 9.6 % *LOW* (02/20/17 5:43 PM) Lymphocytes [20.0-40.0 %] 7.9 % (02/20/17 5:43 PM) Monocytes [2.0-12.0 %] 1.6 % (02/20/17 5:43 PM) Eosinophils [0.0-4.0 %] 0.3 % (02/20/17 5:43 PM) Basophils [0.0-1.0 %] 11.2 K/CMM *HI* (02/20/17 5:43 PM) Segs-Bands # [1.5-8.1 K/CMM] 1.3 K/CMM (02/20/17 5:43 PM) Lymphocytes # [1.0-5.5 K/CMM] 1.1 K/CMM *HI* (02/20/17 5:43 PM) Monocytes # [0.0-0.8 K/CMM] 0.2 K/CMM (02/20/17 5:43 PM) Eosinophils # [0.0-0.5 K/CMM] 16.9 seconds *HI* (02/22/17 5:30 AM) 26.5 seconds *HI* (02/21/17 2:01 AM) 33.0 seconds *HI* (02/20/17 5:43 PM) PT [12.0-14.7 seconds] 1.37 *HI* (02/22/17 5:30 AM) 2.41 *HI* (02/21/17 2:01 AM) 3.17 *HI* (02/20/17 5:43 PM) INR [0.85-1.17] <0.27 ug/mL FEU *NA* (02/20/17 5:43 PM) D-Dimer 33.7 seconds (02/22/17 5:30 AM) 44.3 seconds *HI* (02/21/17 2:01 AM) 49.6 seconds *HI* (02/20/17 5:43 PM) PTT [22.9-35.8 seconds] Immunizations Given and [...]
--- OUTSIDE RECORDS SUMMARY | 2018-12-19 01:28 | XMS REPORT | Summary of Care ---
Author Author [facility] Organization [facility] Address Unknown Phone Unavailable Encounter SULY Morales(NILA) [id number] Date(s): 12/23/16 - 12/23/16 [facility] [address] [place] [address]- Discharge Diagnosis: Cocaine abuse Discharge Diagnosis: Atypical chest pain Discharge Disposition: Home or Self Care Attending Physician: Rajiv Myles MD Vital Signs 1 2 3 Most recent to oldest [Reference Range]: 98 DegF (12/23/16 4:56 AM) 98.9 DegF (12/23/16 1:07 AM) Temperature Oral [96.4-99.1 DegF] 124/75 mmHg (12/23/16 4:56 AM) 113/101 mmHg (12/23/16 2:30 AM) 129/91 mmHg (12/23/16 1:07 AM) Blood Pressure [90-140/60-90 mmHg] 20 BRMIN (12/23/16 4:56 AM) 24 BRMIN *HI* (12/23/16 2:30 AM) 20 BRMIN (12/23/16 1:07 AM) Respiratory Rate [14-20 BRMIN] 85 bpm (12/23/16 4:56 AM) 105 bpm *HI* (12/23/16 2:30 AM) 79 bpm (12/23/16 1:07 AM) Peripheral Pulse Rate [60-100 bpm] 107.273 kg (12/23/16 1:07 AM) Weight Problem List Condition Effective Dates Status [...] Substance Reaction Severity Status NKDA Active Medications Saline Flush 0.9% 10 mL, Route: IVP, Drug Form: INJ, Dosing Weight 107.273, kg, PRN, PRN Line Flus h, Start date: 12/23/16 1:17:00 CDT, Duration: 30 day, Stop date: 01/22/17 1:16: 00 CDT Notes: (Same as: BD Posiflush) Start Date: 12/23/16 Stop Date: 12/23/16 Status: Discontinued Results ELECTROLYTES Most recent to 1 2 oldest [Reference Range]: Sodium Lvl [135-145 142 mEq/L mEq/L] (12/23/16 1:57 AM) Potassium Lvl 3.6 mEq/L [3.5-5.1 mEq/L] (12/23/16 1:57 AM) Chloride Lvl [95-109 103 mEq/L mEq/L] (12/23/16 1:57 AM) CO2 [24-32 mEq/L] 33 mEq/L *HI* (12/23/16 1:57 AM) AGAP [10.0-20.0 9.6 mEq/L mEq/L] *LOW* (12/23/16 1:57 AM) CHEM PANEL Most recent to 1 2 oldest [Reference Range]: Creatinine Lvl 1.70 mg/dL [0.50-1.40 mg/dL] *HI* (12/23/16 1:57 AM) eGFR 45 mL/min/1.73m2 1 *NA* (12/23/16 1:57 AM) BUN [7-22 mg/dL] 17 mg/dL (12/23/16 1:57 AM) B/C Ratio [6-25] 10 (12/23/16 1:57 AM) Glucose Lvl [70-99 61 mg/dL mg/dL] *LOW* (12/23/16 1:57 AM) Total Protein 6.6 g/dL [6.4-8.4 g/dL] (12/23/16 1:57 AM) Albumin Lvl [3.5-5.0 3.1 g/dL g/dL] *LOW* (12/23/16 1:57 AM) Globulin [2.7-4.2 3.5 g/dL g/dL] (12/23/16 1:57 AM) A/G Ratio [0.7-1.6] 0.9 (12/23/16 1:57 AM) Calcium Lvl 8.1 mg/dL [8.5-10.5 mg/dL] *LOW* (12/23/16 1:57 AM) ALT [0-65 unit/L] 32 unit/L (12/23/16 1:57 AM) AST [0-37 unit/L] 10 unit/L (12/23/16 1:57 AM) Alk Phos [39-136 135 unit/L unit/L] (12/23/16 1:57 AM) Bili Total [0.2-1.3 0.5 mg/dL mg/dL] (12/23/16 1:57 AM) 1Result Comment: The eGFR is calculated [...] 2 oldest [Reference Range]: Total CK [12-191 117 unit/L unit/L] (12/23/16 1:57 AM) CK MB [0.5-3.6 1.6 ng/mL ng/mL] (12/23/16 1:57 AM) Troponin-I 0.04 ng/mL 0.04 ng/mL [0.00-0.40 ng/mL] (12/23/16 4:12 AM) (12/23/16 1:57 AM) DRUG SCREEN Most recent to 1 2 oldest [Reference Range]: U Amph Scr Negative [Negative] *NA* (12/23/16 2:30 AM) U Brigette Scr Negative [Negative] *NA* (12/23/16 2:30 AM) U Benzodia Scr Negative [Negative] *NA* (12/23/16 2:30 AM) U Cocaine Scr Positive [Negative] *ABN* (12/23/16 2:30 AM) U Opiate Scr Negative [Negative] *NA* (12/23/16 2:30 AM) U Phencyc Scr Negative [Negative] *NA* (12/23/16 2:30 AM) U Cannab Scr Negative [Negative] *NA* (12/23/16 2:30 AM) UDS Note See Note (12/23/16 2:30 AM) HEMATOLOGY Most recent to 1 2 oldest [Reference Range]: WBC [3.7-10.4 K/CMM] 9.8 K/CMM (12/23/16 1:26 AM) RBC [4.70-6.10 4.70 M/CMM M/CMM] (12/23/16 1:26 AM) Hgb [14.0-18.0 g/dL] 13.8 g/dL *LOW* (12/23/16 1:26 AM) Hct [42.0-54.0 %] 42.4 % (12/23/16 1:26 AM) MCV [80.0-94.0 fL] 90.2 fL (12/23/16 1:26 AM) MCH [27.0-31.0 pg] 29.3 pg (12/23/16 1:26 AM) MCHC [32.0-36.0 32.5 g/dL g/dL] (12/23/16 1:26 AM) RDW [11.5-14.5 %] 15.8 % *HI* (12/23/16 1:26 AM) Platelet [133-450 210 K/CMM K/CMM] (12/23/16 1:26 AM) MPV [7.4-10.4 fL] 8.4 fL (12/23/16 1:26 AM) Segs [45.0-75.0 %] 77.0 % *HI* (12/23/16 1:26 AM) Lymphocytes 13.3 % [20.0-40.0 %] *LOW* (12/23/16 1:26 AM) Monocytes [2.0-12.0 7.6 % %] (12/23/16 1:26 AM) Eosinophils [0.0-4.0 1.7 % %] (12/23/16 1:26 AM) Basophils [0.0-1.0 0.4 % %] (12/23/16 1:26 AM) Segs-Bands # 7.5 K/CMM [1.5-8.1 K/CMM] (12/23/16 1:26 AM) Lymphocytes # 1.3 K/CMM [1.0-5.5 K/CMM] (12/23/16 1:26 AM) Monocytes # [0.0-0.8 0.7 K/CMM K/CMM] (12/23/16 1:26 AM) Eosinophils # 0.2 K/CMM [0.0-0.5 K/CMM] (12/23/16 1:26 AM) Basophils # [0.0-0.2 0.0 K/CMM K/CMM] (12/23/16 1:26 AM) Immunizations Given and Recorded Vaccine Date [...]
--- OUTSIDE RECORDS SUMMARY | 2018-12-19 01:28 | XMS REPORT | Summary of Care ---
Author Author [facility] Organization [facility] Address Unknown Phone Unavailable Encounter HQ Carmen(NILA) [phone] Date(s): 11/09/16 - 11/09/16 [facility] [address] [place] [address]- Discharge Disposition: Home or Self Care Attending Physician: Caryn Hardwick MD Vital Signs 1 2 3 Most recent to oldest [Reference Range]: 170.18 cm (11/09/16 12:56 PM) Height 98.8 DegF (11/09/16 5:13 PM) 97.9 DegF (11/09/16 12:56 PM) Temperature Oral [96.4-99.1 DegF] 125/92 mmHg (11/09/16 5:13 PM) 153/98 mmHg *HI* (11/09/16 3:42 PM) 133/93 mmHg (11/09/16 12:56 PM) Blood Pressure [90-140/60-90 mmHg] 17 BRMIN (11/09/16 5:13 PM) 18 BRMIN (11/09/16 3:42 PM) 18 BRMIN (11/09/16 12:56 PM) Respiratory Rate [14-20 BRMIN] 80 bpm (11/09/16 5:13 PM) 100 bpm (11/09/16 3:42 PM) 70 bpm (11/09/16 12:56 PM) Peripheral Pulse Rate [60-100 bpm] 106.818 kg (11/09/16 12:56 PM) Weight 36.88 m2 (11/09/16 12:56 PM) Body Mass Index Problem List Condition [...] TAB, Q4H, Dosing Weight 106.818, kg, PRN Pa in 1-3/Temp > 100.4 F, Start date: 11/09/16 17:59:00 CDT, Duration: 30 day, Stop date: 12/09/16 17:58:00 CDT Notes: Do not exceed 4 gm/day. (Same as: Tylenol) Start Date: 11/09/16 Stop Date: 11/09/16 Status: Discontinued acetaminophen-hydrocodone 325 mg-5 mg oral tablet 1 tab, Route: PO, Drug Form: TAB, Dosing Weight 106.818, kg, Q4H, PRN Pain Score 4-6, Start date: 11/09/16 17:59:00 CDT, Duration: 30 day, Stop date: 12/09/16 1 7:58:00 CDT Notes: (Same as: [place] 325/5) Do not exceed 4gm/day of acetaminophen. Start Date: 11/09/16 Stop Date: 11/09/16 Status: Discontinued aspirin 324 mg, 4 tab, Route: PO, Drug form: CHEWTAB, ONCE, Dosing Weight 106.818, kg, P riority: STAT, Start date: 11/09/16 14:24:00 CDT, Stop date: 11/09/16 14:24:00 C DT Notes: Take with food. Start Date: 11/09/16 Stop Date: 11/09/16 Status: Completed aspirin 325 mg tablet, enteric coated 325 mg, 1 tab, Route: PO, Drug form: ECTAB, Daily, Dosing Weight 106.818, kg, Pr iority: NOW, Start date: 11/09/16 17:59:00 CDT, Duration: 30 day, Stop date: 9:00:00 CDT Notes: (Do Not Crush) Do not crush or chew. Start Date: 11/09/16 Stop Date: 11/09/16 Status: Discontinued atorvastatin 20 mg, 1 tab, Route: PO, Drug form: TAB, Bedtime, Dosing Weight 106.818, kg, Sta rt date: 11/09/16 21:00:00 CDT, Duration: 30 day, Stop date: 12/08/16 21:00:00 C DT Notes: (Same As: Lipitor) Start Date: 11/09/16 Stop Date: 11/09/16 Status: Discontinued clonazePAM 1 mg oral tablet 1 mg=1 tab, PO, Bedtime, 0 Refill(s) Start Date: 11/09/16 Status: Ordered codeine-upzeWZKeznn54 mg-300 mg/5 mL oral liquid 5 ml, Route: PO, Drug Form: LIQ, Dosing Weight 106.818, kg, Q4H, PRN Cough/Conge stion, NOW, Start date: 11/09/16 17:59:00 CDT, Duration: 30 day, Stop date: 11/25 08/10 17:58:00 CDT Notes: (Same As: Jonnie AC) Start Date: 11/09/16 Stop Date: 11/09/16 Status: Discontinued Dextrose 50% Syringe 25 gm, 50 mL, Route: IVP, Drug Form: INJ, Dosing Weight 106.818, kg, PRN, PRN Bl ood Glucose Results, Start date: 11/09/16 18:02:00 CDT, Duration: 30 day, Stop d ate: 12/09/16 18:01:00 CDT Start Date: 11/09/16 Stop Date: 11/09/16 Status: Discontinued Dextrose 50% Syringe 12.5 gm, 25 mL, Route: IVP, Drug Form: INJ, Dosing Weight 106.818, kg, PRN, PRN Blood Glucose Results, Start date: 11/09/16 18:02:00 CDT, Duration: 30 day, Stop date: 12/09/16 18:01:00 CDT Start Date: 11/09/16 Stop Date: 11/09/16 Status: Discontinued digoxin 250 mcg (0.25 mg) oral tablet 0.25 mg, PO, Daily, # 30 tab, 0 Refill(s) Start Date: 11/09/16 Status: Ordered DuoNeb inhalation solution 3 ml, Route: INHALATION, Drug Form: SOLN, Dosing Weight 106.818, kg, Q6H, PRN Re spiratory Protocol, Start date: 11/09/16 17:59:00 CDT, Duration: 30 day, Stop da te: 12/09/16 17:58:00 CDT Notes: (Same as: Duoneb) Start Date: 11/09/16 Stop Date: 11/09/16 Status: Discontinued famotidine 20 mg, 2 mL, Route: IVP, Drug form: INJ, Q12H, Dosing Weight 106.818, kg, Priori ty: NOW, Start date: 11/09/16 17:59:00 CDT, Duration: 30 day, Stop date: 7 9:00:00 CDT Notes: (Same as: Pepcid)Can be dilute in 5-10cc NS IVP: Slow IV push over at le ast 2 minutes. Start Date: 11/09/16 Stop Date: 11/09/16 Status: Discontinued glucagon 1 mg, Route: IM, Drug form: PDR/INJ, PRN, Dosing Weight 106.818, kg, PRN Blood G lucose Results, Start date: 11/09/16 18:02:00 CDT, Duration: 30 day, Stop date: 12/09/16 18:01:00 CDT Start Date: 11/09/16 Stop Date: 11/09/16 Status: Discontinued hydrALAZINE 10 mg, 0.5 mL, Route: IV, Drug form: INJ, Q4H, Dosing Weight 106.818, kg, PRN Hy pertension, Start date: 11/09/16 17:59:00 CDT, Duration: 30 day, Stop date: 11/25 08/10 17:58:00 CDT, HTN Notes: (Same as: Apresoline)Push over 5 minutes Start Date: 11/09/16 Stop Date: 11/09/16 Status: Discontinued insulin lispro 4 unit, 0.04 mL, Route: SUB-Q, Drug form: SOLN, Bedtime, Dosing Weight 106.818, kg, PRN Blood Glucose Results, Start date: 11/09/16 18:02:00 CDT, Duration: 30 d ay, Stop date: 12/09/16 18:01:00 CDT Notes: Roll in palms of hands gently; Do not shake `vigorously. (Same as: Humal og )"Single Patient Use Only "WASTE: F/P - Black; E - Municipal Trash Bin Stabl e for 28 days at room temperature.Expires in days from Date Start Date: 11/09/16 Stop Date: 11/09/16 Status: Discontinued insulin lispro 1 unit, 0.01 mL, Route: SUB-Q, Drug form: SOLN, Bedtime, Dosing Weight 106.818, kg, PRN Blood Glucose Results, Start date: 11/09/16 18:02:00 CDT, Duration: 30 d ay, Stop date: 12/09/16 18:01:00 CDT Notes: Roll in palms of hands gently; Do not shake `vigorously. (Same as: Humal og )"Single Patient Use Only "WASTE: F/P - Black; E - Municipal Trash Bin Stabl e for 28 days at room temperature.Expires in days from Date Start Date: 11/09/16 Stop Date: 11/09/16 Status: Discontinued insulin lispro 3 unit, 0.03 mL, Route: SUB-Q, Drug form: SOLN, Bedtime, Dosing Weight 106.818, kg, PRN Blood Glucose Results, Start date: 11/09/16 18:02:00 CDT, Duration: 30 d ay, Stop date: 12/09/16 18:01:00 CDT Notes: Roll in palms of hands gently; Do not shake `vigorously. (Same as: Humal og )"Single Patient Use Only "WASTE: F/P - Black; E - Municipal Trash Bin Stabl e for 28 days at room temperature.Expires in days from Date Start Date: 11/09/16 Stop Date: 11/09/16 Status: Discontinued insulin lispro 2 unit, 0.02 mL, Route: SUB-Q, Drug form: SOLN, Bedtime, Dosing Weight 106.818, kg, PRN Blood Glucose Results, Start date: 11/09/16 18:02:00 CDT, Duration: 30 d ay, Stop date: 12/09/16 18:01:00 CDT Notes: Roll in palms of hands gently; Do not shake `vigorously. (Same as: Humal og )"Single Patient Use Only "WASTE: F/P - Black; E - Municipal Trash Bin Stabl e for 28 days at room temperature.Expires in days from Date Start Date: 11/09/16 Stop Date: 11/09/16 Status: Discontinued insulin lispro 4 unit, 0.04 mL, Route: SUB-Q, Drug form: SOLN, TID-Before Meals, Dosing Weight 106.818, kg, PRN Blood Glucose Results, Start date: 11/09/16 18:02:00 CDT, Durat ion: 30 day, Stop date: 12/09/16 18:01:00 CDT Notes: Roll in palms of hands gently; Do not shake `vigorously. (Same as: Humal og )"Single Patient Use Only "WASTE: F/P - Black; E - Municipal Trash Bin Stabl e for 28 days at room temperature.Expires in days from Date Start Date: 11/09/16 Stop Date: 11/09/16 Status: Discontinued insulin lispro 8 unit, 0.08 mL, Route: SUB-Q, Drug form: SOLN, TID-Before Meals, Dosing Weight 106.818, kg, PRN Blood Glucose Results, Start date: 11/09/16 18:02:00 CDT, Durat ion: 30 day, Stop date: 12/09/16 18:01:00 CDT Notes: Roll in palms of hands gently; Do not shake `vigorously. (Same as: Humal og )"Single Patient Use Only "WASTE: F/P - Black; E - Municipal Trash Bin Stabl e for 28 days at room temperature.Expires in days from Date Start Date: 11/09/16 Stop Date: 11/09/16 Status: Discontinued insulin lispro 2 unit, 0.02 mL, Route: SUB-Q, Drug form: SOLN, TID-Before Meals, Dosing Weight 106.818, kg, PRN Blood Glucose Results, Start date: 11/09/16 18:02:00 CDT, Durat ion: 30 day, Stop date: 12/09/16 18:01:00 CDT Notes: Roll in palms of hands gently; Do not shake `vigorously. (Same as: Humal og )"Single Patient Use Only "WASTE: F/P - Black; E - Municipal Trash Bin Stabl e for 28 days at room temperature.Expires in days from Date Start Date: 11/09/16 Stop Date: 11/09/16 Status: Discontinued insulin lispro 6 unit, 0.06 mL, Route: SUB-Q, Drug form: SOLN, TID-Before Meals, Dosing Weight 106.818, kg, PRN Blood Glucose Results, Start date: 11/09/16 18:02:00 CDT, Durat ion: 30 day, Stop date: 12/09/16 18:01:00 CDT Notes: Roll in palms of hands gently; Do not shake `vigorously. (Same as: Humal og )"Single Patient Use Only "WASTE: F/P - Black; E - Municipal Trash Bin Stabl e for 28 days at room temperature.Expires in days from Date Start Date: 11/09/16 Stop Date: 11/09/16 Status: Discontinued insulin lispro 10 unit, 0.1 mL, Route: SUB-Q, Drug form: SOLN, TID-Before Meals, Dosing Weight 106.818, kg, PRN Blood Glucose Results, Start date: 11/09/16 18:02:00 CDT, Durat ion: 30 day, Stop date: 12/09/16 18:01:00 CDT Notes: Roll in palms of hands gently; Do not shake `vigorously. (Same as: Maribell og )"Single Patient Use Only "WASTE: F/P - Black; E - Municipal Trash Bin Stabl e for 28 days at room temperature.Expires in days from Date Start Date: 11/09/16 Stop Date: 11/09/16 Status: Discontinued lisinopril 5 mg, 1 tab, Route: PO, Drug form: TAB, Daily, Dosing Weight 106.818, kg, Priori ty: NOW, Start date: 11/09/16 17:59:00 CDT, Duration: 30 day, Stop date: 7 9:00:00 CDT Notes: (Same as: Prinivil, Zestril) Start Date: 11/09/16 Stop Date: 11/09/16 Status: Discontinued Lovenox 40 mg, Route: SUB-Q, Drug form: INJ, gangO10Q, Dosing Weight 106.818, kg, Priori ty: NOW, Start date: 11/09/16 17:59:00 CDT, Duration: 30 day, Stop date: 7 17:59:00 CDT Start Date: 11/09/16 Stop Date: 11/09/16 Status: Discontinued Milk of Magnesia 30 ml, Route: PO, Drug Form: SUSP, Dosing Weight 106.818, kg, Q6H, PRN Heartburn , Start date: 11/09/16 17:59:00 CDT, Duration: 30 day, Stop date: 12/09/16 17:58 :00 CDT Notes: (Same as: Milk of Magnesia, MOM) Start Date: 11/09/16 Stop Date: 11/09/16 Status: Discontinued MiraLax 17 gm, 1 pkt, Route: PO, Drug form: PWDR, Daily, Dosing Weight 106.818, kg, PRN Constipation, Priority: Within 4 hours, Start date: 11/09/16 17:59:00 CDT, Durat ion: 30 day, Stop date: 12/09/16 17:58:00 CDT Notes: Dissolve in 8 oz of water or juice.(Same as: Miralax) Start Date: 11/09/16 Stop Date: 11/09/16 Status: Discontinued morphine Sulfate 1 mg, 0.25 mL, Route: IVP, Drug form: INJ, Q2H, Dosing Weight 106.818, kg, PRN P ain Score 4-6, Start date: 11/09/16 17:59:00 CDT, Duration: 30 day, Stop date: 0 12/09/16 17:58:00 CDT Notes: (Same as:MORPhine Sulfate) Start Date: 11/09/16 Stop Date: 11/09/16 Status: Discontinued nitroglycerin SL Tab 0.4 mg, 1 tab, Route: SL, Drug form: TAB, Q5Min, Dosing Weight 106.818, kg, PRN Chest Pain, Start date: 11/09/16 17:59:00 CDT, Duration: 3 doses or times, Stop date: Limited # of times Notes: (Same as:Nitroquick, Nitrostat)"Do Not Crush" Sublingual tablet Start Date: 11/09/16 Stop Date: 11/09/16 Status: Discontinued ondansetron 4 mg, 2 mL, Route: IVP, Drug form: INJ, Q4H, Dosing Weight 106.818, kg, PRN Naus ea & Vomiting, Start date: 11/09/16 17:59:00 CDT, Duration: 30 day, Stop date: 12/09/16 17:58:00 CDT Notes: (Same as: Zofran) MEDICATION WASTE Product Size: 4 mgProduct Was mary jane: ___ mg Start Date: 11/09/16 Stop Date: 11/09/16 Status: Discontinued pantoprazole 40 mg intravenous injection 40 mg, PO, Daily, 0 Refill(s) Start Date: 11/09/16 Status: Ordered Saline Flush 0.9% 10 ml, Route: IVP, Drug Form: INJ, Dosing Weight 106.818, kg, PRN, PRN Line Flus h, Start date: 11/09/16 17:59:00 CDT, Duration: 30 day, Stop date: 12/09/16 17:5 8:00 CDT Notes: (Same as: BD Posiflush) Start Date: 11/09/16 Stop Date: 11/09/16 Status: Discontinued Saline Flush 0.9% 10 ml, Route: IVP, Drug Form: INJ, Dosing Weight 106.818, kg, Q12H, Start date: 11/09/16 21:00:00 CDT, Duration: 30 day, Stop date: 12/09/16 9:00:00 CDT Notes: (Same as: BD Posiflush) Start Date: 11/09/16 Stop Date: 11/09/16 Status: Discontinued Saline Flush 0.9% 10 mL, Route: IVP, Drug Form: INJ, Dosing Weight 106.818, kg, PRN, PRN Line Flus h, Start date: 11/09/16 14:24:00 CDT, Duration: 30 day, Stop date: 12/09/16 14:2 3:00 CDT Notes: (Same as: BD Posiflush) Start Date: 11/09/16 Stop Date: 11/09/16 Status: Discontinued Sodium Chloride 0.9% (Bolus) IV 1,000 mL, 1000 ml/hr, Infuse Over: 1 hr, Route: IV, 1,000, Drug form: INJ, ONCE, Priority: STAT, Dosing Weight 106.818 kg, Start date: 11/09/16 16:29:00 CDT, Du ration: 1 doses or times, Stop date: 11/09/16 16:29:00 CDT Start Date: 11/09/16 Stop Date: 11/09/16 Status: Completed sodium chloride 0.9% 1000 ml INJ 1,000 mL 1,000 mL, Rate: 150 ml/hr, Infuse over: 6.7 hr, Route: IV, Dosing Weight 106.818 kg, Total Volume: 1,000, Priority: STAT, Start date: 11/09/16 18:01:00 CDT, Dur ation: 1 doses or times, Stop date: 11/10/16 0:42:00 CDT Start Date: 11/09/16 Stop Date: 11/09/16 Status: Discontinued thiothixene 5 mg oral capsule 5 mg=1 cap, PO, Bedtime, 0 Refill(s) Start Date: 11/09/16 Status: Ordered trazodone 50 mg oral tablet 50 mg=1 tab, PO, Bedtime, # 30 tab, 1 Refill(s) Start Date: 11/09/16 Status: Ordered Xarelto 20 mg, 1 tab, Route: PO, Drug form: TAB, QPM, Dosing Weight 106.818, kg, Priorit y: NOW, Start date: 11/09/16 20:45:00 CDT, Duration: 30 day, Stop date: 12/09/16 17:00:00 CDT Notes: (Same as: Xarelto)Administer with food Start Date: 11/09/16 Stop Date: 11/09/16 Status: Discontinued Xarelto 20 mg, 1 tab, Route: PO, Drug form: TAB, QPM, Dosing Weight 106.818, kg, Priorit y: NOW, Start date: 11/09/16 18:02:00 CDT, Duration: 30 day, Stop date: 12/09/16 17:00:00 CDT Notes: (Same as: Xarelto)Administer with food Start Date: 11/09/16 Stop Date: 11/09/16 Status: Deleted zolpidem 10 mg oral tablet 10 mg=1 tab, PO, Bedtime, PRN for sleep, # 14 tab, 0 Refill(s) Start Date: 11/09/16 Stop Date: 11/23/16 Status: Ordered Results ELECTROLYTES Most recent to 1 oldest [Reference Range]: Sodium Lvl [135-145 138 mEq/L mEq/L] (11/09/16 3:33 PM) Potassium Lvl 3.9 mEq/L [3.5-5.1 mEq/L] (11/09/16 3:33 PM) Chloride Lvl [95-109 102 mEq/L mEq/L] (11/09/16 3:33 PM) CO2 [24-32 mEq/L] 31 mEq/L (11/09/16 3:33 PM) AGAP [10.0-20.0 8.9 mEq/L mEq/L] *LOW* (11/09/16 3:33 PM) CHEM PANEL Most recent to 1 oldest [Reference Range]: Creatinine Lvl 1.64 mg/dL [0.50-1.40 mg/dL] *HI* (11/09/16 3:33 PM) eGFR 47 mL/min/1.73m2 1 *NA* (11/09/16 3:33 PM) BUN [7-22 mg/dL] 16 mg/dL (11/09/16 3:33 PM) B/C Ratio [6-25] 10 (11/09/16 3:33 PM) Glucose Lvl [70-99 143 mg/dL mg/dL] *HI* (11/09/16 3:33 PM) Total Protein 8.3 g/dL [6.4-8.4 g/dL] (11/09/16 3:33 PM) Albumin Lvl [3.5-5.0 4.0 g/dL g/dL] (11/09/16 3:33 PM) Globulin [2.7-4.2 4.3 g/dL g/dL] *HI* (11/09/16 3:33 PM) A/G Ratio [0.7-1.6] 0.9 (11/09/16 3:33 PM) Calcium Lvl 8.4 mg/dL [8.5-10.5 mg/dL] *LOW* (11/09/16 3:33 PM) ALT [0-65 unit/L] 38 unit/L (11/09/16 3:33 PM) AST [0-37 unit/L] 81 unit/L *HI* (11/09/16 3:33 PM) Alk Phos [39-136 118 unit/L unit/L] (11/09/16 3:33 PM) Bili Total [0.2-1.3 0.5 mg/dL mg/dL] (11/09/16 3:33 PM) Lipase Lvl [73-393 275 unit/L unit/L] (11/09/16 3:33 PM) 1Result Comment: The eGFR is calculated [...] 1 oldest [Reference Range]: Total CK [12-191 2494 unit/L unit/L] *NA* (11/09/16 3:33 PM) CK MB [0.5-3.6 2.8 ng/mL ng/mL] (11/09/16 3:33 PM) CK MB Index See Note 1 [0.0-2.5] (11/09/16 3:33 PM) Troponin-I 0.03 ng/mL [0.00-0.40 ng/mL] (11/09/16 3:33 PM) BNP [<=100 pg/mL] 252 pg/mL *HI* (11/09/16 3:33 PM) 1Result Comment: Calculated values are not available HEMATOLOGY Most recent to 1 oldest [Reference Range]: WBC [3.7-10.4 K/CMM] 7.8 K/CMM (11/09/16 3:33 PM) RBC [4.70-6.10 5.00 M/CMM M/CMM] (11/09/16 3:33 PM) Hgb [14.0-18.0 g/dL] 15.6 g/dL (11/09/16 3:33 PM) Hct [42.0-54.0 %] 46.1 % (11/09/16 3:33 PM) MCV [80.0-94.0 fL] 92.2 fL (11/09/16 3:33 PM) MCH [27.0-31.0 pg] 31.2 pg *HI* (11/09/16 3:33 PM) MCHC [32.0-36.0 33.8 g/dL g/dL] (11/09/16 3:33 PM) RDW [11.5-14.5 %] 15.3 % *HI* (11/09/16 3:33 PM) Platelet [133-450 206 K/CMM K/CMM] (11/09/16 3:33 PM) MPV [7.4-10.4 fL] 8.0 fL (11/09/16 3:33 PM) Segs [45.0-75.0 %] 73.9 % (11/09/16 3:33 PM) Lymphocytes 14.3 % [20.0-40.0 %] *LOW* (11/09/16 3:33 PM) Monocytes [2.0-12.0 9.8 % %] (11/09/16 3:33 PM) Eosinophils [0.0-4.0 1.9 % %] (11/09/16 3:33 PM) Basophils [0.0-1.0 0.1 % %] (11/09/16 3:33 PM) Segs-Bands # 5.8 K/CMM [1.5-8.1 K/CMM] (11/09/16 3:33 PM) Lymphocytes # 1.1 K/CMM [1.0-5.5 K/CMM] (11/09/16 3:33 PM) Monocytes # [0.0-0.8 0.8 K/CMM K/CMM] (11/09/16 3:33 PM) Eosinophils # 0.1 K/CMM [0.0-0.5 K/CMM] (11/09/16 3:33 PM) Basophils # [0.0-0.2 0.0 K/CMM K/CMM] (11/09/16 3:33 PM) Immunizations Given and Recorded Vaccine Date [...] Extracted from: Title: Discharge Summary * Author: Caryn Hardwick MD [...] regarding diagnosis, regarding treatment, regarding medications. Extracted from: Title: Clinical Document Author: Caryn Hardwick MD Date: 11/09/[address] Holloway The powerhouse operator and alan emanuel for the patient to be discharged tonight. Will d/c the patient Extracted from: Title: Clinical Document Author: Jackie Holloway MD Date: 11/09/16 PLAN & TREATMENT chest pain: likely due to s/p substance, cocaine abuse, (monday) he has mild chest tender had a very good dinner, feels fine now, Okay to d/c home, case d/w Dr. Hardwick Atrial Fibrillation: Rate currently controlled, continue amiodarone and ASA. Severe Nonischemic LV Systolic DCMP: [facility] 2014 revealed no CAD, current exacerbation due [...] Expanded Problem Focused PE Vitals and Temp: VitalsTmp(F)[id number] 11/09 17:1398.622818/811656--- 11/09 15:42----636039/367942--- 11/09 12:5697.790574/871023--- 24 Hr Tmax: 98.8F (37.11c) at 11/09 17:13Vital Signs are the last 5 in the past 48 hours. General: No acute distress. Respiratory: Lungs are clear to auscultation, Respirations are non-labored. Cardiovascular: Normal rate, Regular rhythm, No murmur, No gallop, Normal peripheral perfusion, No edema. Gastrointestinal: Soft, Non-tender, Non-distended, Normal bowel sounds, No organomegaly. Integumentary: Clean, Dry, Intact, Warm, Moist, No rash. 24hr Labs 11/09 1826 Glucose POC75 11/09 1533 Lipase Vde471 Sodium Zlp932 Potassium Lvl3.9 Chloride Jmm731 CO231 AGAP8.9 L Glucose Vhi786 H Creatinine Lvl1.64 H BUN16 B/C Ratio10 Total Protein8.3 Albumin Lvl4.0 Globulin4.3 H A/G Ratio0.9 Calcium Lvl8.4 L ALT38 AST81 H Alk Ssrc819 Bili Total0.5 eGFR47 Troponin-I0.03 CK MB2.8 IOS177 H Total BL1698 CK MB IndexSee Note WBC7.8 RBC5.00 Hgb15.6 Hct46.1 MCV92.2 MCH31.2 H MCHC33.8 RDW15.3 H Wwjuecgm559 MPV8.0 Segs73.9 Monocytes9.8 Bwpgphzdwpv93.3 L Eosinophils1.9 Basophils0.1 Segs-Bands #5.8 Lymphocytes #1.1 Monocytes #0.8 Eosinophils #0.1 Basophils #0.0 Extracted from: Title: General Admission H&P * Author: Caryn Hardwick MD Date: 11/09/16 Patient: NELI ABRAHAM Age: 51 years Sex: Male : 1965 Associated Diagnoses: None Author: Caryn Hardwick MD Chief Complaint Acute chest pain shortness of breath palpitations History of Present Illness 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 Pain is described as constant, moderate, "tightness", [...] NKDA- No reactions were documented., Allergies (1) ActiveReaction NKDANone Documented Current medications: (Selected) Inpatient Medications Ordered [...] PO, Daily atorvastatin: 20 mg, PO, Bedtime codeine-oyuoILPzvye25 mg-300 mg/5 mL oral liquid: 5 ml, [...] ondansetron: 4 mg, IVP, Q4H, PRN: Nausea & Vomiting Prescriptions Prescribed carvedilol 3.125 mg oral [...] All Problems [D]Anterior chest wall pain / 772923315 / Confirmed BP+ - Hypertension / 930058546 / Confirmed CHF - Congestive heart failure / 858278888 / Confirmed CHF - Congestive heart failure / 592708806 / Confirmed Depression / 019404156 / Confirmed dm / 322909512 / Confirmed Down syndrome / 13813560 / Confirmed GERD - Gastro-esophageal reflux disease / 3930422138 / Confirmed H/O: schizophrenia / 376222867 / Confirmed HTN / 401.9 / Confirmed ICD (implantable cardiac defibrillator) battery depletion / V53.32 / Confirmed NIDDM / 554411010 / Confirmed Obese build / 426136478 / Confirmed Schizophrenia / 62199504 / Confirmed Short of breath on exertion / 7631724355 / Confirmed Sleep apnea / 197846522 / Confirmed, Active Problems (16) BP+ - Hypertension CHF - Congestive heart failure CHF - Congestive heart failure Depression dm Down syndrome GERD - Gastro-esophageal reflux disease H/O: schizophrenia HTN ICD (implantable cardiac defibrillator) battery depletion NIDDM Obese build Schizophrenia Short of breath on exertion Sleep apnea [D]Anterior chest wall pain Histories Past Medical History: Active BP+ - Hypertension (569406348) CHF - Congestive heart failure (445043773) NIDDM (672796918) Obese build (057839666) Sleep apnea (068029867) GERD - Gastro-esophageal reflux disease (8343225573) ICD (implantable cardiac defibrillator) battery depletion (V53.32) Depression (282183382) HTN (401.9) dm (921610638) Schizophrenia (26820065) Resolved Cardiomyopathy (672463797): Resolved. Anxiety (84224212): Resolved. Family History: Type 2 diabetes mellitus Father Procedure history: torn ligament (SNOMED CT [id number]). Comments: 10/18/2012 04:51 - Deidre Perea RN left knee ligament surgery ICD - Internal cardiac defibrillator procedure (SNOMED CT 709899374). Comments: 01/14/2013 19:28 - Paige Salas placed 2.5years ago Social History Social & Psychosocial Habits Alcohol 09/02/2016 Use: Never Substance [...] Signs (last 24 hrs) Last Charted Temp Oral98.8 DegF (NOV 09:) Heart Rate Kwldkdgbdj48 bpm (NOV 09:) Resp Rate 17 BRMIN (NOV 09:) CFM238 mmHg (NOV 09:) DBPH 92mmHg (NOV 09:) WxO077 % (NOV 09:) Cjuxnr070.81 kg (NOV 09:56) Buuzyh381.18 cm (NOV 09:) BMI36.88 (NOV 09:) General: Alert and oriented, No acute distress. Neck: Supple. Respiratory: Lungs are clear to auscultation, Respirations are non-labored, Symmetrical chest wall expansion, No chest wall tenderness. Cardiovascular: Normal rate, Normal peripheral perfusion, No edema. Gastrointestinal: Soft, Non-tender, Non-distended. Musculoskeletal Normal range of motion. Integumentary: Warm, [place]. Neurologic: Alert, Oriented. Psychiatric: Cooperative. Review / Management Results review: Labs (Last four charted values) WBC 7.8(NOV 09) Hgb 15.6(NOV 09) Hct 46.1(NOV 09) Plt 206(NOV 09) Na 138(NOV 09) K 3.9(NOV 09) CO2 31(NOV 09) Cl 102(NOV 09) Cr H 1.64(NOV 09) BUN 16(NOV 09) Glucose Random H 143(NOV 09) Ca L 8.4(NOV 09) Troponin 0.03(NOV 09) CK MB 2.8(NOV 09) Total CK 2494(NOV 09). Impression and Plan Chest pain rule out acute coronary syndrome at this time EKG cardiac enzymes are negative we will do serial cardiac enzymes will continue daily aspirin and statin as needed morphine oxygen Nitrostat sublingual since the patient has a history of advanced congestive heart failure and multiple risk factors we will consult Dr. Holloway the powerhouse operator for further evaluation and management Acute rhabdomyolysis [...] no need of further anticoagulation prophylaxis Addendum History of cocaine abuse and he used it 2 days ago will avoid beta blockers will get stat by [facility], urine drug screen Leny Ambriz MD on 11/09/2016 18:15
--- OUTSIDE RECORDS SUMMARY | 2018-12-19 01:28 | XMS REPORT | Summary of Care ---
Author Author [facility] Organization [facility] Address Unknown Phone Unavailable Encounter HQ Carmen(FIN) [phone] Date(s): 06/09/17 - 06/10/17 [facility] [address] [place] [address]- [phone] Encounter Diagnosis Precordial pain (Final) - 06/15/17 Morbid (severe) obesity due to excess calories (Final) - Patient's other noncompliance with medication regimen (Final) - Encounter for immunization (Final) - Obstructive sleep apnea (adult) (pediatric) (Final) - Type 2 diabetes mellitus without complications (Final) - Personal history of nicotine dependence (Final) - Unspecified systolic (congestive) heart failure (Final) - custodial (current) use of antithrombotics/antiplatelets (Final) - lobsterman (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) use of insulin (Final) - Presence of cardiac pacemaker (Final) - Body mass index (BMI) 29.0-29.9, adult (Final) - Discharge Disposition: Home or Self Care Attending Physician: Darius Hui MD Admitting Physician: Darius Hui MD Vital Signs 1 2 3 Most recent to oldest [Reference Range]: 170.18 cm (06/09/17 10:04 AM) 175.26 cm (06/09/17 2:38 AM) Height 98 DegF (06/10/17 11:59 AM) 97.3 DegF (06/10/17 7:05 AM) 97.7 DegF (06/10/17 4:11 AM) Temperature Oral [96.4-99.1 DegF] 126/84 mmHg (06/10/17 11:59 AM) 121/87 mmHg (06/10/17 7:05 AM) 108/75 mmHg (06/10/17 4:11 AM) Blood Pressure [90-140/60-90 mmHg] 18 BRMIN (06/10/17 11:59 AM) 18 BRMIN (06/10/17 7:05 AM) 18 BRMIN (06/10/17 4:11 AM) Respiratory Rate [14-20 BRMIN] 64 bpm (06/10/17 11:59 AM) 61 bpm (06/10/17 7:05 AM) 79 bpm (06/10/17 4:11 AM) Peripheral Pulse Rate [60-100 bpm] 72.727 kg (06/09/17 10:04 AM) 90.909 kg (06/09/17 2:38 AM) Weight 25.11 m2 (06/09/17 10:04 AM) 29.6 m2 (06/09/17 2:38 AM) Body Mass Index Problem List Condition Effective Dates Status Health Status Informant [D]Anterior chest 12/07/11 Active wall pain(Confirmed) Anxiety(Confirmed) Active Atrial Active fibrillation(Confirm ed) BP+ - Active Hypertension(Confirm ed) Pacemaker(Confirmed) Active Cardiomyopathy(Confi Resolved rmed) CHF - Congestive Active heart failure(Confirmed) CHF - Congestive Active heart failure(Confirmed) Chronic renal Active failure(Confirmed) Down Active syndrome(Confirmed) GERD - Active Gastro-esophageal reflux disease(Confirmed) H/O: Active schizophrenia(Confir med) HTN(Confirmed) Active ICD (implantable Active cardiac defibrillator) battery depletion(Confirmed) NIDDM(Confirmed) Active Obese Active build(Confirmed) Schizophrenia(Confir Active med) Short of breath on Active exertion(Confirmed) Sleep Active apnea(Confirmed) Sleep Active apnea(Confirmed) Allergies, Adverse Reactions, Alerts Substance Reaction Severity Status NKDA Active Medications aspirin 324 mg, 4 tab, Route: PO, Drug form: CHEWTAB, ONCE, Dosing Weight 90.909, kg, Pr iority: STAT, Start date: 06/09/17 3:07:00 CDT, Stop date: 06/09/17 3:07:00 CDT Notes: Take with food. Start Date: 06/09/17 Stop Date: 06/09/17 Status: Completed aspirin 81 mg tablet, enteric coated 81 mg, 1 tab, Route: PO, Drug form: ECTAB, Daily, Dosing Weight 90.909, kg, Star t date: 06/09/17 9:00:00 CDT, Duration: 30 day, Stop date: 07/08/17 9:00:00 CDT Notes: Do not crush or chew.(Same As: Ecotrin) Start Date: 06/09/17 Stop Date: 06/10/17 Status: Discontinued atorvastatin 40 mg, 1 tab, Route: PO, Drug form: TAB, Bedtime, Dosing Weight 72.727, kg, Star t date: 06/09/17 21:00:00 CDT, Duration: 30 day, Stop date: 07/08/17 21:00:00 CD T Notes: (Same as: Lipitor) Start Date: 06/09/17 Stop Date: 06/10/17 Status: Discontinued atorvastatin 40 mg, PO, Bedtime, 0 Refill(s) Start Date: 06/09/17 Status: Ordered carvedilol 18.75 mg, 3 tab, Route: PO, Drug form: TAB, Q12H, Dosing Weight 90.909, kg, Star t date: 06/09/17 9:00:00 CDT, Duration: 30 day, Stop date: 07/08/17 21:00:00 CDT Notes: Give with food. (Same As: Coreg) Start Date: 06/09/17 Stop Date: 06/09/17 Status: Discontinued clonazePAM 1 mg, 1 tab, Route: PO, Drug form: TAB, Bedtime, Dosing Weight 72.727, kg, Start date: 06/09/17 21:00:00 CDT, Duration: 30 day, Stop date: 07/08/17 21:00:00 CDT Notes: (Same As: KlonoPIN) Start Date: 06/09/17 Stop Date: 06/10/17 Status: Discontinued Coreg 25 mg, PO, BID, 0 Refill(s) Start Date: 06/09/17 Status: Ordered Coreg 25 mg, 1 tab, Route: PO, Drug form: TAB, BID, Dosing Weight 72.727, kg, Start da te: 06/09/17 17:00:00 CDT, Duration: 30 day, Stop date: 07/09/17 9:00:00 CDT Notes: Give with food. (Same As: Coreg) Start Date: 06/09/17 Stop Date: 06/10/17 Status: Discontinued Dextrose 50% Syringe 12.5 gm, 25 mL, Route: IVP, Drug Form: INJ, Dosing Weight 72.727, kg, PRN, PRN B lood Glucose Results, Start date: 06/09/17 16:15:00 CDT, Duration: 30 day, Stop date: 07/09/17 16:14:00 CDT Start Date: 06/09/17 Stop Date: 06/10/17 Status: Discontinued Dextrose 50% Syringe 25 gm, 50 mL, Route: IVP, Drug Form: INJ, Dosing Weight 72.727, kg, PRN, PRN Blo od Glucose Results, Start date: 06/09/17 16:15:00 CDT, Duration: 30 day, Stop da te: 07/09/17 16:14:00 CDT Start Date: 06/09/17 Stop Date: 06/10/17 Status: Discontinued digoxin 125 microgram, PO, Daily, 0 Refill(s) Start Date: 06/09/17 Status: Ordered digoxin 125 microgram, 1 tab, Route: PO, Drug form: TAB, Daily, Dosing Weight 72.727, kg , Start date: 06/10/17 9:00:00 CDT, Duration: 30 day, Stop date: 07/09/17 9:00:0 0 CDT Notes: Take on an Empty Stomach (Same as: Lanoxin) Start Date: 06/10/17 Stop Date: 06/10/17 Status: Discontinued digoxin 250 mcg (0.25 mg) oral tablet 0.25 mg, 1 tab, Route: PO, Drug form: TAB, Daily, Dosing Weight 90.909, kg, Star t date: 06/09/17 9:00:00 CDT, Duration: 30 day, Stop date: 07/08/17 9:00:00 CDT Notes: Take on an Empty Stomach (Same as: Lanoxin) Start Date: 06/09/17 Stop Date: 06/09/17 Status: Discontinued furosemide 20 mg, PO, BID, 0 Refill(s) Start Date: 06/09/17 Status: Ordered furosemide 20 mg, 1 tab, Route: PO, Drug form: TAB, BID, Dosing Weight 72.727, kg, Start da te: 06/09/17 17:00:00 CDT, Duration: 30 day, Stop date: 07/09/17 9:00:00 CDT Notes: (Same as: Lasix) May cause GI upset. Give with food or milk. Start Date: 06/09/17 Stop Date: 06/10/17 Status: Discontinued glimepiride 4 mg, Route: PO, Drug form: TAB, BID, Dosing Weight 90.909, kg, Start date: 05/25 09/11 9:00:00 CDT, Duration: 30 day, Stop date: 07/08/17 17:00:00 CDT Start Date: 06/09/17 Stop Date: 06/09/17 Status: Deleted Glimepride 2 mg tab Glimepride 2 mg tab, 4 mg, Drug form: MISC, Route: PO, BID, 06/09/17 17:00:00 CD T, Duration: 30 day, Stop date: 07/09/17 9:00:00 CDT Start Date: 06/09/17 Stop Date: 06/09/17 Status: Canceled glipiZIDE 10 mg, PO, BID, 0 Refill(s) Start Date: 06/09/17 Status: Ordered glipiZIDE 10 mg, 1 tab, Route: PO, Drug form: TAB, BID, Dosing Weight 72.727, kg, Start da te: 06/09/17 17:00:00 CDT, Duration: 30 day, Stop date: 07/09/17 9:00:00 CDT Notes: (Same as: Glucotrol) 30 min before meals. Start Date: 06/09/17 Stop Date: 06/10/17 Status: Discontinued glucagon 1 mg, Route: IM, Drug form: PDR/INJ, PRN, Dosing Weight 72.727, kg, PRN Blood Gl ucose Results, Start date: 06/09/17 16:15:00 CDT, Duration: 30 day, Stop date: 0 07/09/17 16:14:00 CDT Start Date: 06/09/17 Stop Date: 06/10/17 Status: Discontinued Humalog See Instructions, 15-25 units before meals depending on the blood sugar, 0 Refil l(s) Start Date: 06/09/17 Status: Ordered insulin glargine 22 unit, 0.22 mL, Route: SUB-Q, Drug form: SOLN, Bedtime, Start date: 06/09/17 2 1:00:00 CDT, Duration: 30 day, Stop date: 07/08/17 21:00:00 CDT Notes: (Same as: Lantus)Do not hold insulin without contacting prescriberWASTE: F/P - Black; E - Municipal Trash Bin "single patient use only" Start Date: 06/09/17 Stop Date: 06/10/17 Status: Discontinued insulin lispro 10 unit, 0.1 mL, Route: SUB-Q, Drug form: SOLN, TID-Before Meals, Dosing Weight 72.727, kg, PRN Blood Glucose Results, Start date: 06/09/17 16:15:00 CDT, Durati on: 30 day, Stop date: 07/09/17 16:14:00 CDT Notes: (Same as: Humalog ) Roll in palms of hands gently; Do not shake `vigorou sly. "Single Patient Use Only " WASTE: F/P - Black; E - Municipal Trash [address] St able for 28 days at room temperature.Expires in days from Da te Start Date: 06/09/17 Stop Date: 06/10/17 Status: Discontinued insulin lispro 8 unit, 0.08 mL, Route: SUB-Q, Drug form: SOLN, TID-Before Meals, Dosing Weight 72.727, kg, PRN Blood Glucose Results, Start date: 06/09/17 16:15:00 CDT, Durati on: 30 day, Stop date: 07/09/17 16:14:00 CDT Notes: (Same as: Humalog ) Roll in palms of hands gently; Do not shake `vigorou sly. "Single Patient Use Only " WASTE: F/P - Black; E - [facility] [address] [facility] St able for 28 days at room temperature.Expires in days from Da te Start Date: 06/09/17 Stop Date: 06/10/17 Status: Discontinued insulin lispro 2 unit, 0.02 mL, Route: SUB-Q, Drug form: SOLN, TID-Before Meals, Dosing Weight 72.727, kg, PRN Blood Glucose Results, Start date: 06/09/17 16:15:00 CDT, Durati on: 30 day, Stop date: 07/09/17 16:14:00 CDT Notes: (Same as: Humalog ) Roll in palms of hands gently; Do not shake `vigorou sly. "Single Patient Use Only " WASTE: F/P - Black; E - [facility] [address] [facility] St able for 28 days at room temperature.Expires in days from Da te Start Date: 06/09/17 Stop Date: 06/10/17 Status: Discontinued insulin lispro 4 unit, 0.04 mL, Route: SUB-Q, Drug form: SOLN, TID-Before Meals, Dosing Weight 72.727, kg, PRN Blood Glucose Results, Start date: 06/09/17 16:15:00 CDT, Durati on: 30 day, Stop date: 07/09/17 16:14:00 CDT Notes: (Same as: Humalog ) Roll in palms of hands gently; Do not shake `vigorou sly. "Single Patient Use Only " WASTE: F/P - Black; E - [facility] [address] St able for 28 days at room temperature.Expires in days from Da te Start Date: 06/09/17 Stop Date: 06/10/17 Status: Discontinued insulin lispro 6 unit, 0.06 mL, Route: SUB-Q, Drug form: SOLN, TID-Before Meals, Dosing Weight 72.727, kg, PRN Blood Glucose Results, Start date: 06/09/17 16:15:00 CDT, Durati on: 30 day, Stop date: 07/09/17 16:14:00 CDT Notes: (Same as: Humalog ) Roll in palms of hands gently; Do not shake `vigorou sly. "Single Patient Use Only " WASTE: F/P - Black; E - [facility] [address] St able for 28 days at room temperature.Expires in days from Da te Start Date: 06/09/17 Stop Date: 06/10/17 Status: Discontinued Lasix 40 mg oral tablet 40 mg, 1 tab, Route: PO, Drug form: TAB, BID, Dosing Weight 90.909, kg, Start da te: 06/09/17 9:00:00 CDT, Duration: 30 day, Stop date: 07/08/17 17:00:00 CDT Notes: (Same as: Lasix) May cause GI upset. Give with food or milk. Start Date: 06/09/17 Stop Date: 06/09/17 Status: Discontinued Levemir 22units, SUB-Q, Bedtime, 0 Refill(s) Start Date: 06/09/17 Status: Ordered Levemir Route: SUB-Q, Bedtime, Dosing Weight 72.727, kg, Start date: 06/09/17 21:00:00 C DT, Duration: 30 day, Stop date: 07/08/17 21:00:00 CDT Start Date: 06/09/17 Stop Date: 06/09/17 Status: Deleted lisinopril 2.5 mg, 0.5 tab, Route: PO, Drug form: TAB, Daily, Dosing Weight 90.909, kg, Sta rt date: 06/09/17 9:00:00 CDT, Duration: 30 day, Stop date: 07/08/17 9:00:00 CDT Notes: (Same as: Prinivil, Zestril) Start Date: 06/09/17 Stop Date: 06/10/17 Status: Discontinued metFORMIN 850 mg, PO, BID, 0 Refill(s) Start Date: 06/09/17 Status: Ordered metFORMIN 1,000 mg, 2 tab, Route: PO, Drug form: TAB, BID, Dosing Weight 90.909, kg, Start date: 06/09/17 9:00:00 CDT, Duration: 30 day, Stop date: 07/08/17 17:00:00 CDT Notes: (Same as: Glucophage) Take with meal Start Date: 06/09/17 Stop Date: 06/09/17 Status: Discontinued metFORMIN 850 mg, 1 tab, Route: PO, Drug form: TAB, BID, Dosing Weight 72.727, kg, Start d ate: 06/09/17 17:00:00 CDT, Duration: 30 day, Stop date: 07/09/17 9:00:00 CDT Notes: (Same as: Glucophage) Take with meal Start Date: 06/09/17 Stop Date: 06/10/17 Status: Discontinued morphine Sulfate 2 mg, 0.5 mL, Route: IVP, Drug form: INJ, ONCE, Dosing Weight 90.909, kg, Priori ty: STAT, Start date: 06/09/17 3:07:00 CDT, Stop date: 06/09/17 3:07:00 CDT Notes: (Same as:MORPhine Sulfate) Start Date: 06/09/17 Stop Date: 06/09/17 Status: Discontinued ondansetron 4 mg, 2 mL, Route: IVP, Drug form: INJ, ONCE, Dosing Weight 90.909, kg, Priority : STAT, Start date: 06/09/17 3:07:00 CDT, Stop date: 06/09/17 3:07:00 CDT Notes: (Same as: Zofran) MEDICATION WASTE Product Size: 4 mgProduct Was mary jane: ___ mg Start Date: 06/09/17 Stop Date: 06/09/17 Status: Discontinued OXcarbazepine 600 mg, 1 tab, Route: PO, Drug form: TAB, Bedtime, Dosing Weight 72.727, kg, Sta rt date: 06/09/17 21:00:00 CDT, Duration: 30 day, Stop date: 07/08/17 21:00:00 C DT Notes: (Same as: Trileptal) Start Date: 06/09/17 Stop Date: 06/10/17 Status: Discontinued OXcarbazepine 600 mg=1 tab, PO, Bedtime, # 30 tab, 0 Refill(s) Start Date: 06/09/17 Status: Ordered pantoprazole 40 mg, 1 tab, Route: PO, Drug form: ECTAB, Daily, Dosing Weight 72.727, kg, Star t date: 06/10/17 9:00:00 CDT, Duration: 30 day, Stop date: 07/09/17 9:00:00 CDT Notes: Tablet should not be chewed or crushed.(Same as: Protonix) Start Date: 06/10/17 Stop Date: 06/10/17 Status: Discontinued Ranexa 500 mg oral tablet, extended release 500 mg, 1 tab, Route: PO, Drug form: TAB, BID, Dosing Weight 90.909, kg, Start d ate: 06/09/17 9:00:00 CDT, Duration: 30 day, Stop date: 07/08/17 17:00:00 CDT Notes: Same as Ranexa"Do Not Crush" Start Date: 06/09/17 Stop Date: 06/09/17 Status: Discontinued Risperdal 2 mg, 1 tab, Route: PO, Drug form: TAB, Bedtime, Dosing Weight 90.909, kg, Start date: 06/09/17 21:00:00 CDT, Duration: 30 day, Stop date: 07/08/17 21:00:00 CDT Notes: (Same as: Risperdal) Start Date: 06/09/17 Stop Date: 06/09/17 Status: Canceled Saline Flush 0.9% 10 mL, Route: IVP, Drug Form: INJ, Dosing Weight 90.909, kg, PRN, PRN Line Flush , Start date: 06/09/17 3:07:00 CDT, Duration: 30 day, Stop date: 07/09/17 3:06:0 0 CDT Notes: (Same as: BD Posiflush) Start Date: 06/09/17 Stop Date: 06/10/17 Status: Discontinued Saphris 5 mg, Route: SL, Drug form: TAB, Daily, Dosing Weight 72.727, kg, Start date: 9:00:00 CDT, Duration: 30 day, Stop date: 07/09/17 9:00:00 CDT Start Date: 06/10/17 Stop Date: 06/10/17 Status: Discontinued Saphris 5 mg sublingual tablet 5 mg=1 tab, SL, Daily, 0 Refill(s) Start Date: 06/09/17 Status: Ordered spironolactone 25 mg, 1 tab, Route: PO, Drug form: TAB, BID, Dosing Weight 90.909, kg, Start da te: 06/09/17 9:00:00 CDT, Duration: 30 day, Stop date: 07/08/17 17:00:00 CDT Notes: (Same As: Aldactone) Start Date: 06/09/17 Stop Date: 06/09/17 Status: Discontinued Tessalon Perles 200 mg, 2 cap, Route: PO, Drug form: CAP, Q6H, Dosing Weight 72.727, kg, PRN Cou gh/Congestion, Start date: 06/09/17 21:26:00 CDT, Duration: 30 day, Stop date: 0 07/09/17 21:25:00 CDT Notes: (Same As: Tessalon Perles)"Do Not Crush" Start Date: 06/09/17 Stop Date: 06/10/17 Status: Discontinued Tylenol 650 mg, 2 tab, Route: PO, Drug form: TAB, Q4H, Dosing Weight 72.727, kg, PRN Germaine n 1-3/Temp > 100.4 F, Start date: 06/09/17 16:08:00 CDT, Duration: 30 day, Stop date: 07/09/17 16:07:00 CDT Notes: Do not exceed 4 gm/day. (Same as: Tylenol) Start Date: 06/09/17 Stop Date: 06/10/17 Status: Discontinued Zofran 4 mg, Route: IVP, Drug form: INJ, ONCE, Dosing Weight 90.909, kg, Priority: STAT , Start date: 06/09/17 3:31:00 CDT, Stop date: 06/09/17 3:31:00 CDT Start Date: 06/09/17 Stop Date: 06/09/17 Status: Completed zolpidem Bedtime, 0 Refill(s) Start Date: 06/09/17 Stop Date: 06/09/17 Status: Completed zolpidem 10 mg, PO, Bedtime, 0 Refill(s) Start Date: 06/09/17 Stop Date: 06/10/17 Status: Discontinued Results ELECTROLYTES 1 2 3 Most recent to oldest [Reference Range]: 137 mEq/L (06/09/17 3:19 AM) Sodium Lvl [135-145 mEq/L] 5.3 mEq/L *HI* (06/09/17 3:19 AM) Potassium Lvl [3.5-5.1 mEq/L] 103 mEq/L (06/09/17 3:19 AM) Chloride Lvl [95-109 mEq/L] 29 mEq/L (06/09/17 3:19 AM) CO2 [24-32 mEq/L] 10.3 mEq/L (06/09/17 3:19 AM) AGAP [10.0-20.0 mEq/L] CHEM PANEL 1 2 3 Most recent to oldest [Reference Range]: 1.50 mg/dL *HI* (06/09/17 3:19 AM) Creatinine Lvl [0.50-1.40 mg/dL] 53 mL/min/1.73m2 1 *NA* (06/09/17 3:19 AM) eGFR 21 mg/dL (06/09/17 3:19 AM) BUN [7-22 mg/dL] 140 mg/dL *HI* (06/09/17 3: AM) Glucose Lvl [70-99 mg/dL] 7.3 g/dL (06/09/17 3:19 AM) Total Protein [6.4-8.4 g/dL] 3.8 g/dL (06/09/17 3:19 AM) Albumin Lvl [3.5-5.0 g/dL] 3.5 g/dL (06/09/17 3:19 AM) Globulin [2.7-4.2 g/dL] 1.1 (06/09/17 3:19 AM) A/G Ratio [0.7-1.6] 8.4 mg/dL *LOW* (06/09/17 3:19 AM) Calcium Lvl [8.5-10.5 mg/dL] 18 unit/L (06/09/17 3:19 AM) ALT [0-65 unit/L] 46 unit/L *HI* (06/09/17 3:19 AM) AST [0-37 unit/L] 109 unit/L (06/09/17 3:19 AM) Alk Phos [39-136 unit/L] 1.0 mg/dL (06/09/17 3:19 AM) Bili Total [0.2-1.3 mg/dL] 0.1 mg/dL (06/09/17 3:19 AM) Bili Direct [0.0-0.3 mg/dL] 0.9 mg/dL (06/09/17 3:19 AM) Bili Indirect [0.0-1.0 mg/dL] 105 unit/L (06/09/17 3:19 AM) Lipase Lvl [73-393 unit/L] 1Result Comment: The [...] 3 Most recent to oldest [Reference Range]: 327 unit/L *HI* (06/09/17 3:19 AM) Total CK [12-191 unit/L] 1.8 ng/mL (06/09/17 3:19 AM) CK MB [0.5-3.6 ng/mL] 0.6 (06/09/17 3:19 AM) CK MB Index [0.0-2.5] 0.03 ng/mL (06/09/17 4:04 PM) <0.02 ng/mL (06/09/17 9:50 AM) 0.03 ng/mL (06/09/17 3:19 AM) Troponin-I [0.00-0.40 ng/mL] 726 pg/mL *HI* (06/09/17 3:19 AM) BNP [<=100 pg/mL] DRUG SCREEN 1 2 3 Most recent to oldest [Reference Range]: Negative *NA* (06/09/17 4:30 AM) U Amph Scr [Negative] Negative *NA* (06/09/17 4:30 AM) U Brigette Scr [Negative] Negative *NA* (06/09/17 4:30 AM) U Benzodia Scr [Negative] Negative *NA* (06/09/17 4:30 AM) U Cocaine Scr [Negative] Negative *NA* (06/09/17 4:30 AM) U Opiate Scr [Negative] Negative *NA* (06/09/17 4:30 AM) U Phencyc Scr [Negative] Negative *NA* (06/09/17 4:30 AM) U Cannab Scr [Negative] See Note *NA* (06/09/17 4:30 AM) UDS Note URINE AND STOOL 1 2 3 Most recent to oldest [Reference Range]: Clear (06/09/17 4:30 AM) UA Turbidity [Clear] Yellow *NA* (06/09/17 4:30 AM) UA Color 6.0 (06/09/17 4:30 AM) UA pH [5.0-8.0] 1.014 (06/09/17 4:30 AM) UA Spec Grav [<=1.030] Negative mg/dL *NA* (06/09/17 4:30 AM) UA Glucose [Negative mg/dL] Negative (06/09/17 4:30 AM) UA Blood [Negative] Negative mg/dL *NA* (06/09/17 4:30 AM) UA Ketones [Negative mg/dL] 30 mg/dL *ABN* (06/09/17 4:30 AM) UA Protein [Negative mg/dL] 2.0 mg/dL *HI* (06/09/17 4:30 AM) UA Urobilinogen [0.1-1.0 mg/dL] Negative *NA* (06/09/17 4:30 AM) UA Bili [Negative] Negative (06/09/17 4:30 AM) UA Leuk Est [Negative] Negative (06/09/17 4:30 AM) UA Nitrite [Negative] <1 /HPF (06/09/17 4:30 AM) UA WBC [0-5 /HPF] <1 /HPF (06/09/17 4:30 AM) UA RBC [0-2 /HPF] Occasional /LPF *NA* (06/09/17 4:30 AM) UA Sq Epi [Few /LPF] Few /LPF *NA* (06/09/17 4:30 AM) UA Mucus [None Seen /LPF] HEMATOLOGY 1 2 3 Most recent to oldest [Reference Range]: 8.5 K/CMM (06/09/17 3:19 AM) WBC [3.7-10.4 K/CMM] 4.29 M/CMM *LOW* (06/09/17 3:19 AM) RBC [4.70-6.10 M/CMM] 13.6 g/dL *LOW* (06/09/17 3: AM) Hgb [14.0-18.0 g/dL] 41.1 % *LOW* (06/09/17: AM) Hct [42.0-54.0 %] 95.7 fL *HI* (06/09/17 3: AM) MCV [80.0-94.0 fL] 31.7 pg *HI* (06/09/17 3: AM) MCH [27.0-31.0 pg] 33.1 g/dL (06/09/17 3: AM) MCHC [32.0-36.0 g/dL] 14.1 % (06/09/17 3: AM) RDW [11.5-14.5 %] 8.4 fL (06/09/17 3: AM) MPV [7.4-10.4 fL] 229 K/CMM (06/09/17 3:19 AM) Platelet [133-450 K/CMM] 79.2 % *HI* (06/09/17 3: AM) Segs [45.0-75.0 %] 11.3 % *LOW* (06/09/17 3: AM) Lymphocytes [20.0-40.0 %] 7.5 % (06/09/17 3: AM) Monocytes [2.0-12.0 %] 1.8 % (06/09/17 3:19 AM) Eosinophils [0.0-4.0 %] 0.2 % (06/09/17 3:19 AM) Basophils [0.0-1.0 %] 6.8 K/CMM (06/09/17 3:19 AM) Segs-Bands # [1.5-8.1 K/CMM] 1.0 K/CMM (06/09/17 3:19 AM) Lymphocytes # [1.0-5.5 K/CMM] 0.6 K/CMM (06/09/17 3:19 AM) Monocytes # [0.0-0.8 K/CMM] 0.2 K/CMM (06/09/17 3:19 AM) Eosinophils # [0.0-0.5 K/CMM] 0.0 K/CMM (06/09/17 3:19 AM) Basophils # [0.0-0.2 K/CMM] 32.2 seconds *HI* (06/09/17 3:19 AM) PT [12.0-14.7 seconds] 3.08 *HI* (06/09/17 3:19 AM) INR [0.85-1.17] 48.6 seconds *HI* (06/09/17 3:19 AM) PTT [22.9-35.8 seconds] Immunizations Given and Recorded Vaccine Date Status Refusal Reason pneumococcal 23-valent vaccine 06/09/17 Given influenza virus vaccine, inactivated 06/09/17 Given influenza virus vaccine, inactivated 12/25/12 Given Not Given Vaccine Date Status Refusal Reason pneumococcal 23-valent vaccine 09/10/16 Not Given Patient Refuses Procedures Procedure Date Related Diagnosis Body Site Status ICD - Internal cardiac defibrillator Completed procedure1 torn ligament2 Completed 1placed 2.5years ago 2left knee ligament surgery [...] 22.0; Stopped at age: 23; entered on: 06/20/17 Assessment and Plan No data available for this section
--- OUTSIDE RECORDS SUMMARY | 2018-12-19 01:29 | XMS REPORT | Summary of Care ---
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 chronic kidney disease, or unspecified chronic kidney disease (Final) - Type 2 diabetes mellitus with diabetic chronic kidney disease (Final) - Chronic kidney disease, unspecified (Final) - Chronic systolic (congestive) heart failure (Final) - Presence of automatic (implantable) cardiac defibrillator (Final) - Gastro-esophageal reflux disease without esophagitis (Final) - Schizophrenia, unspecified (Final) - Cough (Final) - 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) - 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) - Discharge Disposition: Home or Self Care Attending Physician: Dea Dupont MD Vital Signs 1 2 3 Most recent to oldest [Reference Range]: 172.72 cm (06/20/17 1:58 PM) Height 98.4 DegF (06/21/17 12:11 PM) 97.8 DegF (06/21/17 7:15 AM) 98.7 DegF (06/21/17 4:10 AM) Temperature Oral [96.4-99.1 DegF] 130/93 mmHg (06/21/17 12:11 PM) 133/87 mmHg (06/21/17 7:15 AM) 108/76 mmHg (06/21/17 4:10 AM) Blood Pressure [90-140/60-90 mmHg] 20 BRMIN (06/21/17 12:11 PM) 20 BRMIN (06/21/17 7:15 AM) 18 BRMIN (06/21/17 4:10 AM) Respiratory Rate [14-20 BRMIN] 79 bpm (06/21/17 12:11 PM) 62 bpm (06/21/17 7:15 AM) 73 bpm (06/21/17 4:10 AM) Peripheral Pulse Rate [60-100 bpm] 106.364 kg (06/20/17 1:58 PM) 86.364 kg (06/20/17 7:00 AM) Weight 35.65 m2 (06/20/17 1:58 PM) Body Mass Index Problem List Condition [...] Substance Reaction Severity Status NKDA Active Medications Al hydroxide/Mg hydroxide/simethicone 30 mL, Route: PO, Drug Form: SUSP, Dosing Weight 86.364, kg, ONCE, STAT, Start d ate: 06/20/17 8:18:00 CDT, Stop date: 06/20/17 8:18:00 CDT Notes: (aluminum hydroxide-magnesium hyd-simethicone [phone]/5ml 30 ml ud S US) Start Date: 06/20/17 Stop Date: 06/20/17 Status: Completed aspirin 325 mg, Route: PO, Drug form: TAB, ONCE, Dosing Weight 86.364, kg, Priority: STA T, Start date: 06/20/17 7:20:00 CDT, Stop date: 06/20/17 7:20:00 CDT Start Date: 06/20/17 Stop Date: 06/20/17 Status: Completed atorvastatin 40 mg, 1 tab, Route: PO, Drug form: TAB, Bedtime, Dosing Weight 106.364, kg, Sta rt date: 06/20/17 21:00:00 CDT, Duration: 30 day, Stop date: 07/19/17 21:00:00 C DT Notes: (Same as: Lipitor) Start Date: 06/20/17 Stop Date: 06/21/17 Status: Discontinued Cardizem 10 mg, 2 mL, Route: IVP, Drug form: INJ, ONCE, Dosing Weight 86.364, kg, Priorit y: STAT, Start date: 06/20/17 8:20:00 CDT, Stop date: 06/20/17 8:20:00 CDT Notes: (Same as: Cardizem) Start Date: 06/20/17 Stop Date: 06/20/17 Status: Completed clonazePAM 1 mg, 1 tab, Route: PO, Drug form: TAB, Bedtime, Dosing Weight 106.364, kg, Star t date: 06/20/17 21:00:00 CDT, Duration: 30 day, Stop date: 07/19/17 21:00:00 CD T Notes: (Same As: KlonoPIN) Start Date: 06/20/17 Stop Date: 06/21/17 Status: Discontinued Coreg 25 mg, 1 tab, Route: PO, Drug form: TAB, BID, Dosing Weight 106.364, kg, Start d ate: 06/20/17 21:00:00 CDT, Duration: 30 day, Stop date: 07/20/17 9:00:00 CDT Notes: Give with food. (Same As: Coreg) Start Date: 06/20/17 Stop Date: 06/21/17 Status: Discontinued Dextrose 50% Syringe 25 gm, 50 mL, Route: IVP, Drug Form: INJ, Dosing Weight 106.364, kg, PRN, PRN Bl ood Glucose Results, Start date: 06/20/17 14:25:00 CDT, Duration: 30 day, Stop d ate: 07/20/17 14:24:00 CDT Start Date: 06/20/17 Stop Date: 06/21/17 Status: Discontinued Dextrose 50% Syringe 12.5 gm, 25 mL, Route: IVP, Drug Form: INJ, Dosing Weight 106.364, kg, PRN, PRN Blood Glucose Results, Start date: 06/20/17 14:25:00 CDT, Duration: 30 day, Stop date: 07/20/17 14:24:00 CDT Start Date: 06/20/17 Stop Date: 06/21/17 Status: Discontinued digoxin 125 microgram, 1 tab, Route: PO, Drug form: TAB, Daily, Dosing Weight 106.364, k g, Start date: 06/21/17 9:00:00 CDT, Duration: 30 day, Stop date: 07/20/17 9:00: 00 CDT Notes: Take on an Empty Stomach (Same as: Lanoxin) Start Date: 06/21/17 Stop Date: 06/21/17 Status: Discontinued furosemide 20 mg, 1 tab, Route: PO, Drug form: TAB, BID, Dosing Weight 106.364, kg, Start d ate: 06/20/17 17:00:00 CDT, Duration: 30 day, Stop date: 07/20/17 9:00:00 CDT Notes: (Same as: Lasix) May cause GI upset. Give with food or milk. Start Date: 06/20/17 Stop Date: 06/21/17 Status: Discontinued glipiZIDE 10 mg, 1 tab, Route: PO, Drug form: TAB, BID, Dosing Weight 106.364, kg, Start d ate: 06/20/17 17:00:00 CDT, Duration: 30 day, Stop date: 07/20/17 9:00:00 CDT Notes: (Same as: Glucotrol) 30 min before meals. Start Date: 06/20/17 Stop Date: 06/21/17 Status: Discontinued glucagon 1 mg, Route: IM, Drug form: PDR/INJ, PRN, Dosing Weight 106.364, kg, PRN Blood G lucose Results, Start date: 06/20/17 14:25:00 CDT, Duration: 30 day, Stop date: 07/20/17 14:24:00 CDT Start Date: 06/20/17 Stop Date: 06/21/17 Status: Discontinued Humalog 15 unit, 0.15 mL, Route: SUB-Q, Drug form: SOLN, TID-Before Meals, Start date: 0 06/20/17 16:30:00 CDT, Duration: 30 day, Stop date: 07/20/17 11:30:00 CDT Notes: (Same as: Humalog ) Roll in palms of hands gently; Do not shake `vigorou sly. "Single Patient Use Only " WASTE: F/P - Black; E - [facility] [employer] [facility] [address] able for 28 days at room temperature.Expires in days from Da te Start Date: 06/20/17 Stop Date: 06/21/17 Status: Discontinued insulin glargine 22 unit, 0.22 mL, Route: SUB-Q, Drug form: SOLN, Bedtime, Start date: 06/20/17 2 1:00:00 CDT, Duration: 30 day, Stop date: 07/19/17 21:00:00 CDT Notes: (Same as: Lantus)Do not hold insulin without contacting prescriberWASTE: F/P - Black; E - [employer] "single patient use only" Start Date: 06/20/17 Stop Date: 06/21/17 Status: Discontinued insulin lispro 3 unit, 0.03 mL, Route: SUB-Q, Drug form: SOLN, TID-Before Meals, Dosing Weight 106.364, kg, PRN Blood Glucose Results, Start date: 06/20/17 14:25:00 CDT, Durat ion: 30 day, Stop date: 07/20/17 14:24:00 CDT Notes: (Same as: Humalog ) Roll in palms of hands gently; Do not shake `vigorou sly. "Single Patient Use Only " WASTE: F/P - Black; E - [facility] [address] able for 28 days at room temperature.Expires in days from Da te Start Date: 06/20/17 Stop Date: 06/21/17 Status: Discontinued insulin lispro 2 unit, 0.02 mL, Route: SUB-Q, Drug form: SOLN, TID-Before Meals, Dosing Weight 106.364, kg, PRN Blood Glucose Results, Start date: 06/20/17 14:25:00 CDT, Durat ion: 30 day, Stop date: 07/20/17 14:24:00 CDT Notes: (Same as: Humalog ) Roll in palms of hands gently; Do not shake `vigorou sly. "Single Patient Use Only " WASTE: F/P - Black; E - [facility] able for 28 days at room temperature.Expires in days from Da te Start Date: 06/20/17 Stop Date: 06/21/17 Status: Discontinued insulin lispro 1 unit, 0.01 mL, Route: SUB-Q, Drug form: SOLN, TID-Before Meals, Dosing Weight 106.364, kg, PRN Blood Glucose Results, Start date: 06/20/17 14:25:00 CDT, Durat ion: 30 day, Stop date: 07/20/17 14:24:00 CDT Notes: (Same as: Humalog ) Roll in palms of hands gently; Do not shake `vigorou sly. "Single Patient Use Only " WASTE: F/P - Black; E - [facility] [address] able for 28 days at room temperature.Expires in days from Da te Start Date: 06/20/17 Stop Date: 06/21/17 Status: Discontinued insulin lispro 5 unit, 0.05 mL, Route: SUB-Q, Drug form: SOLN, TID-Before Meals, Dosing Weight 106.364, kg, PRN Blood Glucose Results, Start date: 06/20/17 14:25:00 CDT, Durat ion: 30 day, Stop date: 07/20/17 14:24:00 CDT Notes: (Same as: Humalog ) Roll in palms of hands gently; Do not shake `vigorou sly. "Single Patient Use Only " WASTE: F/P - Black; E - [facility] [address] able for 28 days at room temperature.Expires in days from Da te Start Date: 06/20/17 Stop Date: 06/21/17 Status: Discontinued insulin lispro 4 unit, 0.04 mL, Route: SUB-Q, Drug form: SOLN, TID-Before Meals, Dosing Weight 106.364, kg, PRN Blood Glucose Results, Start date: 06/20/17 14:25:00 CDT, Durat ion: 30 day, Stop date: 07/20/17 14:24:00 CDT Notes: (Same as: Humalog ) Roll in palms of hands gently; Do not shake `vigorou sly. "Single Patient Use Only " WASTE: F/P - Black; E - [facility] [address] able for 28 days at room temperature.Expires in days from Da te Start Date: 06/20/17 Stop Date: 06/21/17 Status: Discontinued Levemir Route: SUB-Q, Bedtime, Dosing Weight 106.364, kg, Start date: 06/20/17 21:00:00 CDT, Duration: 30 day, Stop date: 07/19/17 21:00:00 CDT Start Date: 06/20/17 Stop Date: 06/20/17 Status: Deleted metFORMIN 850 mg, 1 tab, Route: PO, Drug form: TAB, BID, Dosing Weight 106.364, kg, Start date: 06/20/17 17:00:00 CDT, Duration: 30 day, Stop date: 07/20/17 9:00:00 CDT Notes: (Same as: Glucophage) Take with meal Start Date: 06/20/17 Stop Date: 06/21/17 Status: Discontinued NovoLOG FlexPen 15 unit, Route: SUB-Q, TID-Before Meals, Dosing Weight 106.364, kg, Start date: 06/20/17 16:30:00 CDT, Duration: 30 day, Stop date: 07/20/17 11:30:00 CDT Start Date: 06/20/17 Stop Date: 06/20/17 Status: Deleted OXcarbazepine 600 mg, 2 tab, Route: PO, Drug form: TAB, Bedtime, Dosing Weight 106.364, kg, St art date: 06/20/17 21:00:00 CDT, Duration: 30 day, Stop date: 07/19/17 21:00:00 CDT Notes: Do not crush or chew.(Same as: Trileptal) Start Date: 06/20/17 Stop Date: 06/21/17 Status: Discontinued pantoprazole 40 mg, 1 tab, Route: PO, Drug form: ECTAB, Daily, Dosing Weight 106.364, kg, Sta rt date: 06/20/17 17:33:00 CDT, Duration: 30 day, Stop date: 07/20/17 9:00:00 CD T Notes: Tablet should not be chewed or crushed.(Same as: Protonix) Start Date: 06/20/17 Stop Date: 06/21/17 Status: Discontinued rivaroxaban 20 mg, 1 tab, Route: PO, Drug form: TAB, Daily, Dosing Weight 106.364, kg, Start date: 06/21/17 9:00:00 CDT, Duration: 30 day, Stop date: 07/20/17 9:00:00 CDT Notes: (Same as: Xarelto)Administer with food Start Date: 06/21/17 Stop Date: 06/21/17 Status: Discontinued Saphris 5 mg, Route: SL, Drug form: TAB, Daily, Dosing Weight 106.364, kg, Start date: 0 06/21/17 9:00:00 CDT, Duration: 30 day, Stop date: 07/20/17 9:00:00 CDT Start Date: 06/21/17 Stop Date: 06/21/17 Status: Discontinued Sodium Chloride 0.9% (Bolus) IV 500 mL, 500 ml/hr, Infuse Over: 1 hr, Route: IV, 500, Drug form: INJ, ONCE, Prio rity: STAT, Dosing Weight 86.364 kg, Start date: 06/20/17 8:37:00 CDT, Stop date : 06/20/17 8:37:00 CDT Start Date: 06/20/17 Stop Date: 06/20/17 Status: Completed Tylenol 650 mg, 2 tab, Route: PO, Drug form: TAB, Q4H, Dosing Weight 106.364, kg, PRN Pa in 1-3/Temp > 100.4 F, Start date: 06/20/17 14:18:00 CDT, Duration: 30 day, Stop date: 07/20/17 14:17:00 CDT Notes: Do not exceed 4 gm/day. (Same as: Tylenol) Start Date: 06/20/17 Stop Date: 06/21/17 Status: Discontinued Results ELECTROLYTES 1 2 3 Most recent to oldest [Reference Range]: 139 mEq/L (06/21/17 4:04 AM) 137 mEq/L (06/20/17 7:25 AM) Sodium Lvl [135-145 mEq/L] 4.2 mEq/L (06/21/17 4:04 AM) 4.1 mEq/L (06/20/17 7:25 AM) Potassium Lvl [3.5-5.1 mEq/L] 102 mEq/L (06/21/17 4:04 AM) 99 mEq/L (06/20/17 7:25 AM) Chloride Lvl [95-109 mEq/L] 30 mEq/L (06/21/17 4:04 AM) 29 mEq/L (06/20/17 7:25 AM) CO2 [24-32 mEq/L] 11.2 mEq/L (06/21/17 4:04 AM) 13.1 mEq/L (06/20/17 7:25 AM) AGAP [10.0-20.0 mEq/L] CHEM PANEL 1 2 3 Most recent to oldest [Reference Range]: 1.40 mg/dL (06/21/17 4:04 AM) 1.50 mg/dL *HI* (06/20/17 7:25 AM) Creatinine Lvl [0.50-1.40 mg/dL] 57 mL/min/1.73m2 1 *NA* (06/21/17 4:04 AM) 53 mL/min/1.73m2 2 *NA* (06/20/17 7:25 AM) eGFR 21 mg/dL (06/21/17 4:04 AM) 27 mg/dL *HI* (06/20/17 7:25 AM) BUN [7-22 mg/dL] 147 mg/dL *HI* (06/21/17 4:04 AM) 176 mg/dL *HI* (06/20/17 7:25 AM) Glucose Lvl [70-99 mg/dL] 7.1 g/dL (06/20/17 7:25 AM) Total Protein [6.4-8.4 g/dL] 3.6 g/dL (06/20/17 7:25 AM) Albumin Lvl [3.5-5.0 g/dL] 3.5 g/dL (06/20/17 7:25 AM) Globulin [2.7-4.2 g/dL] 1.0 (06/20/17 7:25 AM) A/G Ratio [0.7-1.6] 7.9 mg/dL *LOW* (06/21/17 4:04 AM) 8.4 mg/dL *LOW* (06/20/17 7:25 AM) Calcium Lvl [8.5-10.5 mg/dL] 46 unit/L (06/20/17 7:25 AM) ALT [0-65 unit/L] 20 unit/L (06/20/17 7:25 AM) AST [0-37 unit/L] 131 unit/L (06/20/17 7:25 AM) Alk Phos [39-136 unit/L] 1.1 mg/dL (06/20/17 7:25 AM) Bili Total [0.2-1.3 mg/dL] 0.3 mg/dL (06/20/17 7:25 AM) Bili Direct [0.0-0.3 mg/dL] 0.8 mg/dL (06/20/17 7:25 AM) Bili Indirect [0.0-1.0 mg/dL] 1Result Comment: The eGFR is calculated [...] 3 Most recent to oldest [Reference Range]: 221 unit/L *HI* (06/20/17 8:13 PM) 195 unit/L *HI* (06/20/17 3:49 PM) 214 unit/L *HI* (06/20/17 7:25 AM) Total CK [12-191 unit/L] 2.7 ng/mL (06/20/17 8:13 PM) 2.4 ng/mL (06/20/17 3:49 PM) 2.6 ng/mL (06/20/17 7:25 AM) CK MB [0.5-3.6 ng/mL] 1.2 (06/20/17 8:13 PM) 1.2 (06/20/17 3:49 PM) 1.2 (06/20/17 7:25 AM) CK MB Index [0.0-2.5] 0.02 ng/mL (06/20/17 8:13 PM) 0.03 ng/mL (06/20/17 3:49 PM) 0.03 ng/mL (06/20/17 7:25 AM) Troponin-I [0.00-0.40 ng/mL] TOXICOLOGY 1 2 3 Most recent to oldest [Reference Range]: 0.5 ng/mL *LOW* (06/20/17 7:25 AM) Digoxin Lvl [0.8-2.0 ng/mL] HEMATOLOGY 1 2 3 Most recent to oldest [Reference Range]: 10.1 K/CMM (06/20/17 7:25 AM) WBC [3.7-10.4 K/CMM] 4.31 M/CMM *LOW* (06/20/17 7:25 AM) RBC [4.70-6.10 M/CMM] 13.5 g/dL *LOW* (06/20/17 7:25 AM) Hgb [14.0-18.0 g/dL] 41.2 % *LOW* (06/20/17 7:25 AM) Hct [42.0-54.0 %] 95.6 fL *HI* (06/20/17 7:25 AM) MCV [80.0-94.0 fL] 31.4 pg *HI* (06/20/17 7:25 AM) MCH [27.0-31.0 pg] 32.8 g/dL (06/20/17 7:25 AM) MCHC [32.0-36.0 g/dL] 14.9 % *HI* (06/20/17 7:25 AM) RDW [11.5-14.5 %] 8.2 fL (06/20/17 7:25 AM) MPV [7.4-10.4 fL] 203 K/CMM (06/20/17 7:25 AM) Platelet [133-450 K/CMM] 80.4 % *HI* (06/20/17 7:25 AM) Segs [45.0-75.0 %] 12.0 % *LOW* (06/20/17 7:25 AM) Lymphocytes [20.0-40.0 %] 5.6 % (06/20/17 7:25 AM) Monocytes [2.0-12.0 %] 2.0 % (06/20/17 7:25 AM) Eosinophils [0.0-4.0 %] 0.0 % (06/20/17 7:25 AM) Basophils [0.0-1.0 %] 8.1 K/CMM (06/20/17 7:25 AM) Segs-Bands # [1.5-8.1 K/CMM] 1.2 K/CMM (06/20/17 7:25 AM) Lymphocytes # [1.0-5.5 K/CMM] 0.6 K/CMM (06/20/17 7:25 AM) Monocytes # [0.0-0.8 K/CMM] 0.2 K/CMM (06/20/17 7:25 AM) Eosinophils # [0.0-0.5 K/CMM] 0.0 K/CMM (06/20/17 7:25 AM) Basophils # [0.0-0.2 K/CMM] Immunizations Given and Recorded Vaccine Date Status [...]
--- OUTSIDE RECORDS SUMMARY | 2018-12-19 01:29 | XMS REPORT | Summary of Care ---
Author Author [facility] Organization [facility] Address Unknown Phone Unavailable Encounter [facility] Carmen(FIN) [id number] Date(s): 09/30/17 - 09/30/17 [facility] [address] [place] [address]- Encounter Diagnosis AF (atrial fibrillation) (Discharge Diagnosis) - 09/30/17 Acute chest pain (Discharge Diagnosis) - 09/30/17 Discharge Disposition: Home or Self Care Attending Physician: Rajiv Myles MD Vital Signs Most recent to 1 2 oldest [Reference Range]: Temperature Oral 97.8 DegF [96.4-99.1 DegF] (09/30/17 6:00 PM) Blood Pressure 149/105 mmHg 136/108 mmHg [90-140/60-90 mmHg] *HI* (09/30/17 6:00 PM) (09/30/17 9:56 PM) Respiratory Rate 20 BRMIN 20 BRMIN [14-20 BRMIN] (09/30/17 9:56 PM) (09/30/17 6:00 PM) Peripheral Pulse 85 bpm 80 bpm Rate [60-100 bpm] (09/30/17 9:56 PM) (09/30/17 6:00 PM) Weight 109.091 kg (09/30/17 6:00 PM) Problem List Condition Effective Dates Status [...] Alerts Substance Reaction Severity Status NKDA Active Sodium Chloride Compound Active Medications furosemide 20 mg, Route: IVP, Drug form: INJ, ONCE, Dosing Weight 109.091, kg, Priority: ST AT, Start date: 09/30/17 20:38:00 CDT, Stop date: 09/30/17 20:38:00 CDT Start Date: 09/30/17 Stop Date: 09/30/17 Status: Completed Results ELECTROLYTES Most recent to 1 2 oldest [Reference Range]: Sodium Lvl [135-145 137 mEq/L mEq/L] (09/30/17 7:01 PM) Potassium Lvl 3.9 mEq/L [3.5-5.1 mEq/L] (09/30/17 7:01 PM) Chloride Lvl [95-109 106 mEq/L mEq/L] (09/30/17 7:01 PM) CO2 [24-32 mEq/L] 23 mEq/L *LOW* (09/30/17 7:01 PM) AGAP [10.0-20.0 11.9 mEq/L mEq/L] (09/30/17 7:01 PM) CHEM PANEL Most recent to 1 2 oldest [Reference Range]: Creatinine Lvl 1.30 mg/dL [0.50-1.40 mg/dL] (09/30/17 7:01 PM) eGFR 62 mL/min/1.73m2 1 *NA* (09/30/17 7:01 PM) BUN [7-22 mg/dL] 15 mg/dL (09/30/17 7:01 PM) B/C Ratio [6-25] 12 (09/30/17 7:01 PM) Glucose Lvl [70-99 80 mg/dL mg/dL] (09/30/17 7:01 PM) Total Protein 7.3 g/dL [6.4-8.4 g/dL] (09/30/17 7:01 PM) Albumin Lvl [3.5-5.0 3.8 g/dL g/dL] (09/30/17 7:01 PM) Globulin [2.7-4.2 3.5 g/dL g/dL] (09/30/17 7: PM) A/G Ratio [0.7-1.6] 1.1 (09/30/17 7: PM) Calcium Lvl 8.3 mg/dL [8.5-10.5 mg/dL] *LOW* (09/30/17 7: PM) Phosphorus [2.5-4.5 3.5 mg/dL mg/dL] (09/30/17 7: PM) Magnesium Lvl 1.8 mg/dL [1.8-2.4 mg/dL] (09/30/17 7: PM) ALT [0-65 unit/L] 38 unit/L (09/30/17 7 PM) AST [0-37 unit/L] 28 unit/L (09/30/17 7: PM) Alk Phos [39-136 158 unit/L unit/L] *HI* (09/30/17 7: PM) Bili Total [0.2-1.3 1.3 mg/dL mg/dL] (09/30/17 7:01 PM) Lipase Lvl [73-393 87 unit/L unit/L] (09/30/17 7: PM) 1Result Comment: The eGFR is calculated [...] 2 oldest [Reference Range]: Total CK [12-191 262 unit/L unit/L] *HI* (09/30/17 7:01 PM) CK MB [0.5-3.6 2.6 ng/mL ng/mL] (09/30/17 7:01 PM) CK MB Index 1.0 [0.0-2.5] (09/30/17 7:01 PM) Troponin-I 0.03 ng/mL 0.02 ng/mL [0.00-0.40 ng/mL] (09/30/17 9:02 PM) (09/30/17 7:01 PM) HEMATOLOGY Most recent to 1 2 oldest [Reference Range]: WBC [3.7-10.4 K/CMM] 10.2 K/CMM (09/30/17 6:50 PM) RBC [4.70-6.10 4.56 M/CMM M/CMM] *LOW* (09/30/17 6:50 PM) Hgb [14.0-18.0 g/dL] 13.7 g/dL *LOW* (09/30/17 6:50 PM) Hct [42.0-54.0 %] 41.0 % *LOW* (09/30/17 6:50 PM) MCV [80.0-94.0 fL] 89.8 fL (09/30/17 6:50 PM) MCH [27.0-31.0 pg] 30.0 pg (09/30/17 6:50 PM) MCHC [32.0-36.0 33.4 g/dL g/dL] (09/30/17 6:50 PM) RDW [11.5-14.5 %] 18.3 % *HI* (09/30/17 6:50 PM) MPV [7.4-10.4 fL] 7.9 fL (09/30/17 6:50 PM) Platelet [133-450 210 K/CMM K/CMM] (09/30/17 6:50 PM) Segs [45.0-75.0 %] 81.0 % *HI* (09/30/17 6:50 PM) Lymphocytes 11.3 % [20.0-40.0 %] *LOW* (09/30/17 6:50 PM) Monocytes [2.0-12.0 6.8 % %] (09/30/17 6:50 PM) Eosinophils [0.0-4.0 0.8 % %] (09/30/17 6:50 PM) Basophils [0.0-1.0 0.1 % %] (09/30/17 6:50 PM) Segs-Bands # 8.3 K/CMM [1.5-8.1 K/CMM] *HI* (09/30/17 6:50 PM) Lymphocytes # 1.2 K/CMM [1.0-5.5 K/CMM] (09/30/17 6:50 PM) Monocytes # [0.0-0.8 0.7 K/CMM K/CMM] (09/30/17 6:50 PM) Eosinophils # 0.1 K/CMM [0.0-0.5 K/CMM] (09/30/17 6:50 PM) Basophils # [0.0-0.2 0.0 K/CMM K/CMM] (09/30/17 6:50 PM) PT [12.0-14.7 18.4 seconds seconds] *HI* (09/30/17 7:01 PM) INR [0.85-1.17] 1.52 *HI* (09/30/17 7:01 PM) PTT [22.9-35.8 38.8 seconds seconds] *HI* (09/30/17 7:01 PM) Immunizations Given and Recorded Vaccine Date [...] Stopped at age: 23; entered on: 09/30/17 Assessment and Plan No data available for this section
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
--- OUTSIDE RECORDS SUMMARY | 2018-12-19 01:34 | XMS REPORT | Summary of Care ---
Author Author [facility] Organization [facility] Address Unknown Phone Unavailable Care Team Providers Care [employer] [address] Gus Barrientos MD PCP Reason for Visit * Reason Comments Follow Up LUZ on CPAP Encounter Details Care Team Description Date Type Department Darvin Mo NP [address] [place] [address] Follow Up (LUZ on CPAP) 11/15/2018 Office Visit [facility] [address] [place] [address] 8th Floor; [address] [place] [address] Allergies Comments Active Allergy Reactions Severity Noted Date Cannot take potassium liquid. Can only take potassium pills with milk. Potassium Chloride Nausea And High 03/10/2013 Vomiting Potassium-Containing Nausea And Low 03/19/2013 Compounds Vomiting Sodium Chloride Nausea Only 03/19/2013 documented as of this encounter (statuses as of 11/15/2018) Medications End Date Status Medication Sig Dispensed [...] MEAL long-term current use of DIRECTED insulin Active torsemide (DEMADEX) 20 MG Take 60mg in 90 Tab 3 tablet the morning 9 and 20mg in the evening 02/01/2019 Active Vitamin D, Take 1 tablet 12 Cap 0 Ergocalciferol, 22401 by mouth 9 units CAPSIndications: every 7 days CKD (chronic kidney for 12 doses. disease), stage III, Vitamin D deficiency documented as of this encounter (statuses as of 11/15/2018) Active Problems Problem Noted Date LUZ (obstructive [...] to Dr. Valenzuela Excessive daytime sleepiness 11/15/2018 Last Assessment & Plan: Multifactorial - poorly controlled sleep apnea is being addressed, patient has been referred to Dr. Valenzuela for CBT-I, and patient was educated on [...] 03/14/2001 Schizoaffective disorder 03/14/2001 Overview: Psychiatrist follows, [facility] HYPERLIPIDEMIA, MIXED 12/29/1998 RHINITIS, ALLERGIC, DUE TO POLLEN 12/29/1998 documented as of this encounter (statuses as of 11/15/2018) Resolved Problems Problem Noted Date Resolved Date Polyuria 05/20/2003 11/18/2010 documented as of this encounter (statuses as of 11/15/2018) Immunizations Name Administration Dates Next Due Influenza [...] Signs Reading Time Taken Comments Vital Sign 110/76 11/15/2018 11:25 AM CDT Blood Pressure 87 11/15/2018 11:25 AM CDT Pulse 36.4 C (97.5 F) 11/15/2018 11:25 AM CDT Temperature 16 11/15/2018 11:25 AM CDT Respiratory Rate - - Oxygen Saturation - - Inhaled Oxygen Concentration 105.7 kg (233 lb) 11/15/2018 11:25 AM CDT Weight 167.6 cm (5' 6") 11/15/2018 11:25 AM CDT Height 37.61 11/15/2018 11:25 AM CDT Body Mass Index documented in this encounter Patient Instructions * Patient Instructions* Darvin Mo NP - 11/15/2018 11:40 AM CDT 1. Discuss reducing the dosage of some of your medications with the prescribing provider - this can help with daytime sleepiness. 2. Discuss taking Trileptal at night rather than in the morning with your care t liam 3. Make sure you get new supplies and a new CPAP mask 4. Make sure to use your CPAP every night for the full night that you sleep documented in this encounter Progress Notes * Darvin Mo NP - 11/15/2018 11:40 AM CDT Patient with the following Sleep problems: 1. LUZ on CPAP 2. Insomnia Patient initially seen by Dr. Troy 01/2011 - Patient had a split night sleep s dy 11/2010 (AHI 82.8, SpO2 tea 72% - excellent control of LUZ with CPAP @ 17 cm H2O). At time of his office visit in 01/2011, the patient was having difficu ltly using his CPAP - he was acclimated to CPAP. Patient was last seen by Dr. Troy 07/2018 - the patient reported difficulty us ing his CPAP device due to outdated/old supplies and broken humidifier. Dr. Jerilyn murry ordered a new humidifier as well as new CPAP supplies to promote consistent C PAP usage. The patient also reported an erratic sleep schedule and insomnia. Dr. Troy dis cussed caffeine avoidance, improved sleep hygiene, and avoidance of daytime naps with the patient. Since then has been on CPAP @ 14 cm H2O Uses F20 airtouch mask Humidifier not in use Interval History: Was admitted at [facility] for A. Fib on 11/05/2018 for 6 days. Patient reports that he is using CPAP nightly for the past 2 months. Patient rep orts that he would like to adjust his pressure - he feels like he could use more pressure sometimes. Patient is unhappy with service from [employer]. He had a lot of diff iculty obtaining the correct mask and correct tubing. Would like a new DME. Currently, BT at 9:30PM, falls asleep in "half an hour", wakes up 2-3 times per night due t o nocturia or spontaneously - easily back to sleep. Gets up at 7AM-8:30AM - "still sleepy but better when I use my CPAP than when I don't use it", TST average 10+ hrs Wakes up feeling "groggy". Denies AM headaches, reports AM dry mouth Reports unknown snoring or witnessed apneas on PAP Has problems with mask - has significant leak. Patient denies issues with curren t pressure but feels like his pressures could be higher. Patient reports significant difficulty falling to sleep without Ambien. Daytime functioning: reports significant daytime sleepiness, reports concentrati on or memory difficulties. Reports "I feel a little foggy". Does not take naps Patient reports benefits from CPAP: "I sleep better" "I don't wake up a whole bu nch of times" "I am able to initiate sleep better." ESS: [place] Sleepiness Scale (0=Never, 1=Rarely, 2=Frequently, 3=always) Sitting and reading: Always Watching TV: Always Sitting inactive in a public place: Always Car passenger for an hour : Always Lying down to rest in the afternoon: Always Sitting and talking to someone: Always Sitting quietly after lunch without alcohol: Always In a car, while stopped for a few minutes: Always Mat[place] Score: 24 Have you ever had a sleep study before?: Yes Compliance report : Patient's device shows nightly use but leak is so large that none of the data is useable. Past Medical History: Diagnosis Date Blunt head trauma 04/02/2002 CHF (congestive heart failure) Cocaine dependence in remission none since 2007 Elevated LFT's 10/2010 ALT 66 Heart failure 10/2010 Dx at [facility] Hyperlipidemia, mixed 12/29/1998 Hypertension LUZ (obstructive sleep apnea) 11/2010 - AHI 83 with SaO2 tea 72% - titrated to CPAP 17cm, 2012 - restudied a nd apnea+hypopnea index (AHI) was 38.5, and SaO2 tea was 81.0% RHINITIS, ALLERGIC, DUE TO POLLEN 12/29/1998 Schizoaffective disorder 03/14/2001 Type II or unspecified type diabetes mellitus with peripheral circulatory di sorders, not stated as uncontrolled(250.70) 04/23/2013 Past Surgical History: Procedure Laterality Date HX KNEE SURGERY Current Outpatient Medications: acetaminophen (TYLENOL) 650 MG CR tablet, Take 650 mg by mouth., Disp: , Rf l: aspirin EC 81 MG TBEC, Take 81 mg by mouth., Disp: , Rfl: Blood Glucose Monitoring Suppl ([employer] VERIO) w/Device KIT, Check blood s ugars 4 times daily; Dx E11.65, Disp: 1 Kit, Rfl: 0 carvedilol (COREG) 25 MG tablet, Take 1 Tab by mouth two times daily., Disp : 60 Tab, Rfl: 5 clonazepam (KLONOPIN) 1 MG tablet, 1 mg two times daily., Disp: , Rfl: digoxin (LANOXIN) 125 MCG tablet, Take 125 mcg by mouth daily., Disp: , Rfl : docusate sodium (COLACE) 100 MG capsule, Take 1 Cap by mouth two times oskar y., Disp: 60 Cap, Rfl: 2 Insulin Detemir (LEVEMIR FLEXTOUCH) 100 UNIT/ML SOPN, ADMINISTER 32 UNITS U NDER THE SKIN EVERY NIGHT AT BEDTIME, Disp: 9 mL, Rfl: 3 Insulin Glulisine (APIDRA SOLOSTAR) 100 UNIT/ML SOPN, Inject 12-20 units TI DAC SQ, Disp: 6 Pen, Rfl: 3 Insulin Pen Needle (BD PEN NEEDLE KEVIN U/F) 32G X 4 MM MISC, Use as directe d to inject 4 times daily, Disp: 200 Each, Rfl: 5 Lancets Misc. (UNISTIK 3 COMFORT) MISC, 1 Each four times daily., Disp: 200 Each, Rfl: 11 metformin (GLUCOPHAGE) 500 MG tablet, TAKE 1 TABLET BY MOUTH TWICE DAILY, D isp: 180 Tab, Rfl: 0 metformin (GLUCOPHAGE) 500 MG tablet, TAKE 1 TABLET BY MOUTH twice a day, D isp: 180 Tab, Rfl: 1 ONETOUCH DELICA LANCETS 33G MISC, Check glucose 4x daily; Dx E11.65, Disp: 400 Each, Rfl: 10 ONETOUCH DELICA LANCETS 33G MISC, 1 Each four times daily., Disp: 200 Each, Rfl: 11 ONETOUCH VERIO, TEST FOUR TIMES DAILY, Disp: 300 Strip, Rfl: 0 oxcarbazepine (TRILEPTAL) 600 MG tablet, nightly., Disp: , Rfl: pantoprazole (PROTONIX) 40 MG tablet, daily., Disp: , Rfl: Rivaroxaban (XARELTO) 20 MG TABS, Take 20 mg by mouth daily., Disp: , Rfl: SAPHRIS 5 MG SUBL, , Disp: , Rfl: torsemide (DEMADEX) 20 MG tablet, Take 20 mg by mouth daily., Disp: , Rfl: zolpidem (AMBIEN) 10 MG tablet, Take 15 mg by mouth nightly as needed for S leep., Disp: , Rfl: Family History Problem Relation Name Age of Onset Diabetes Father Cancer Father liver diagnosis, 9 month after Diagnosis, 7 years ago, High Blood Pressure Mother Elevated Lipids Mother Heart Disease Maternal Grandfather Social History Socioeconomic History Marital status: Single Spouse name: Not on file Number of children: Not on file Years of education: Not on file Highest education level: Not on file Occupational History Not on file Social Needs Financial resource strain: Not on file Food insecurity: Worry: Not on file Inability: Not on file Transportation needs: Medical: Not on file Non-medical: Not on file Tobacco Use Smoking status: Never Smoker Smokeless tobacco: Never Used Tobacco comment: Trying to quit 10/2010. Substance and Sexual Activity Alcohol use: No Alcohol/week: 0.0 oz Comment: Alcoholic Drinks/day: no Drug use: Not Currently Comment: Drug use: crack 3.5 years ago, on/off 15 years, once a month Sexual activity: Not Currently Partners: Female Lifestyle Physical activity: Days per week: Not on file Minutes per session: Not on file Stress: Not on file Relationships Social connections: Talks on phone: Not on file Gets together: Not on file Attends pentecostalism service: Not on file Active member of club or organization: Not on file Attends meetings of clubs or organizations: Not on file Relationship status: Not on file Intimate partner violence: Fear of current or ex partner: Not on file Emotionally abused: Not on file Physically abused: Not on file Forced sexual activity: Not on file Other Topics Concerns: Not on file Social History Narrative Born in [place] Single Lives at half-way. Going to Disability assistive rehabilitative services ROS Vital Signs Height: 5' 6" (167.6 cm) Weight - Scale: 233 lb (105.7 kg) Temp: 97.5 F (36.4 C) Temp Source: Oral Pulse: 87 Respirations: 16 BP: 110/76 Patient Position: Sitting BP Location: right arm Oxygen Therapy O2 Sat: 92 % O2 Flow Rate: Room Air Height and Weight BSA (Calculated - sq m): 2.22 sq meters BMI (Calculated): 37.7 Predicted Body Weight: 140.65 Physical Exam Problem List Items Addressed This Visit LUZ (obstructive sleep apnea) - Primary Download reviewed and discussed with patient - nightly use and no data availab le to assesscontrol of obstructive events due to large nightly leaks. Patient appreciates and acknowledges the benefit from CPAP on sleep quality and daytime function. Patient commended on use and encouraged to continue Setting change - none at this time Will order new mask fitting and supplies to promote better mask seal and better control of LUZ. Relevant Orders PAP SUPPLIES Insomnia Patient referred to Dr. Valenzuela Excessive daytime sleepiness Multifactorial - poorly controlled sleep apnea is being addressed, patient has been referred to Dr. Valenzuela for CBT-I, and patient was educated on the magnolia ting effects of many of his medications. We advised the patient to discuss lower ing the dosages of these medications with the prescribing physicians and to disc uss changing medication timing to help with daytime sleepiness. documented in this encounter Plan of Treatment Care Team Description Date Type Specialty Darvin Mo NP [address] [place] [address] [phone] 12/20/2018 Office Visit Sleep Center Antonio Alarcon MD [address] [facility] [address] [place], [place] [id number] 01/10/2019 Office Visit Endocrinology Order Schedule Name Type Priority Associated Diagnoses Ordered: 11/15/2018 PAP SUPPLIES General Supply Routine LUZ (obstructive sleep apnea) Health Maintenance Due Date Last Done Comments [...] Completed 07/09/2018 documented as of this encounter Results Not on filedocumented in this encounter Visit Diagnoses Diagnosis LUZ (obstructive sleep apnea) - Primary Obstructive sleep apnea (adult) (pediatric) Insomnia, unspecified type Excessive daytime sleepiness documented in this encounter Insurance Type Payer Benefit Subscriber ID Effective Phone Address Plan / Dates Group Medicare [employer] MMP - STAR xxxxxxxxx 2017-P [address] [address] [place] [phone] documented as of this encounter Advance Directives Patient Box Car Bracer Explanation Type Date Recorded Advance Directives and Living Will Power of Certified Veterinary Technician
--- OUTSIDE RECORDS SUMMARY | 2018-12-19 01:34 | XMS REPORT | Summary of Care ---
Author Author [facility] Organization [facility] Address Unknown Phone Unavailable Care Team Providers Care Fire [employer] Name [employer] Gus Barrientos MD PCP Reason for Visit * Reason Comments Disease Management Encounter Details Care Team Description Date Type Department Susanna Leach, DO [address] [place] [address] [place] [address] Disease Management 11/15/2018 Office Visit [facility] Nephrology [address]; [address] [place] [address] Allergies Comments Active Allergy Reactions Severity Noted Date Cannot take potassium liquid. Can only take potassium pills with milk. Potassium Chloride Nausea And High 03/10/2013 Vomiting Potassium-Containing 03/19/2013 Compounds Sodium Chloride 03/19/2013 documented as of this encounter (statuses [...] Take 1 tablet 12 Cap 0 Ergocalciferol, [address] by mouth 9 units CAPSIndications: every 7 days CKD (chronic kidney for 12 doses. disease), stage III, Vitamin D deficiency 11/15/2018 Discontinued torsemide (DEMADEX) 20 MG 20 mg two 0 tablet times daily. documented as of this encounter (statuses as of 11/15/2018) Active Problems Problem Noted Date Type 2 diabetes mellitus without retinopathy 11/18/2014 [...] 03/14/2001 Schizoaffective disorder 03/14/2001 Overview: Psychiatrist follows, [facility] HYPERLIPIDEMIA, MIXED 12/29/1998 RHINITIS, ALLERGIC, DUE TO [...] Time Taken Comments Vital Sign 110/76 11/15/2018 9:32 AM CDT Blood Pressure 80 11/15/2018 9:32 AM CDT Pulse 36.8 C (98.2 F) 11/15/2018 9:32 AM CDT Temperature 16 11/15/2018 9:32 AM CDT Respiratory Rate - - Oxygen Saturation - - Inhaled Oxygen Concentration 105.2 kg (232 lb) 11/15/2018 9:32 AM CDT Weight 167.6 cm (5' 6") 11/15/2018 9:32 AM CDT Height 37.45 11/15/2018 9:32 AM CDT Body Mass Index documented in this encounter Patient Instructions * Patient Instructions* Susanna Leach DO - 11/15/2018 9:40 AM CDT 1. Restrict salt to 2g daily max 2. Weigh yourself daily and if weight is up by 5lbs in a week, then take an extr a torsemide tablet in the evening until weight is back down. DAILY WEIGHT Your weight may be the first sign that your body is holding on to fluid. Weigh y ourself on the same scale every morning before eating breakfast. Keep a record o f your daily weights. If your weight increases by 2 pounds in a day or 5 pounds in a week, call the office. EXERCISE Staying active is very important. Gradual increase in exercise is recommended to improve endurance. Aerobic exercise, such as walking and cycling are best. Take rest periods between activities that cause you to feel tired or short of breath. DIET The sodium (salt) in your diet should be limited to 2,000 mg/day. Sodium causes your body to retain water. Eating foods that have too much sodium can cause you to be admitted to the hospital. Foods to avoid include fast foods, canned foods, and prepackaged foods. It is very important to read labels. Do not add salt to your food. Most foods have sodium (salt) in the food naturally. A 2,000 mg/day d iet is very limited; one teaspoon of salt is equal to approximately 2,400 mg of sodium. NO SMOKING Smoking narrows blood vessels. It makes your heart and kidneys work harder and i s associated with risk of cancer. documented in this encounter Progress Notes * Susanna Leach DO - 11/15/2018 9:40 AM CDT Date: November 15, 2018 Patient Name: Momo Larson Patient Date of : 1965 Chief Complaint: Chief Complaint Patient presents with Disease Management History: History of Present Illness: Momo Larson is a 53 y.o. 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 Patient has had CKD with Cr 1.4-1.8 since 2014. Recently hospitalized at [facility] 2 weeks ago with volume overload. Still endorsing fluid in his abdomen. At the time of discharge, he was sent home on torsemide 60 mg in the AM and 20mg in the PM. However, mother just called [employer] and they are giving him 40mg in the morning and 20mg in the evening. Unsure if he's havin g daily weight fluctuation. Unsure how much salt they are putting on his food at [facility]. Also complains of burning pain in his abdomen at night when he sleep s-this was improved in the hospital but it is back again. According to his mothe r, he never endorses edema in his extremities-his fluid retention is always in h is lungs and abdomen. Current Medications: Current Outpatient Medications Medication Sig Dispense Refill acetaminophen (TYLENOL) 650 MG CR tablet Take 650 mg by mouth. Blood Glucose Monitoring Suppl (ONETOUCH VERIO) w/Device KIT Check blood sug ars 4 times daily; Dx E11.65 1 Kit 0 carvedilol (COREG) 25 MG tablet Take 1 Tab by mouth two times daily. 60 Tab 5 clonazepam (KLONOPIN) 1 MG tablet 1 mg two times daily. digoxin (LANOXIN) 125 MCG tablet Take 125 mcg by mouth daily. docusate sodium (COLACE) 100 MG capsule Take 1 Cap by mouth two times daily. 60 Cap 2 Insulin Detemir (LEVEMIR FLEXTOUCH) 100 UNIT/ML SOPN ADMINISTER 32 UNITS UND ER THE SKIN EVERY NIGHT AT BEDTIME 9 mL 3 Insulin Glulisine (APIDRA SOLOSTAR) 100 UNIT/ML SOPN INJECT 12 TO 20 UNTIS U NDER THE SKIN THREE TIMES DAILY BEFORE A MEAL DIRECTED 48 mL 3 Insulin Pen Needle (BD PEN NEEDLE KEVIN U/F) 32G X 4 MM MISC Use as directed to inject 4 times daily 200 Each 5 Lancets Misc. (UNISTIK 3 COMFORT) MISC 1 Each four times daily. 200 Each 11 metformin (GLUCOPHAGE) 500 MG tablet TAKE 1 TABLET BY MOUTH TWICE DAILY 180 Tab 0 metformin (GLUCOPHAGE) 500 MG tablet TAKE 1 TABLET BY MOUTH twice a day 180 Tab 1 ONETOUCH DELICA LANCETS 33G MISC Check glucose 4x daily; Dx E11.65 400 Each 10 ONETOUCH DELICA LANCETS 33G MISC 1 Each four times daily. 200 Each 11 ONETOUCH VERIO TEST FOUR TIMES DAILY 300 Strip 0 oxcarbazepine (TRILEPTAL) 600 MG tablet nightly. pantoprazole (PROTONIX) 40 MG tablet daily. Rivaroxaban (XARELTO) 20 MG TABS Take 20 mg by mouth daily. SAPHRIS 5 MG SUBL torsemide (DEMADEX) 20 MG tablet Take 20 mg by mouth daily. zolpidem (AMBIEN) 10 MG tablet Take 15 mg by mouth nightly as needed for Sle ep. No current facility-administered medications for this visit. Allergies: Allergies Allergen Reactions Potassium Chloride Nausea And Vomiting Cannot take potassium liquid. Can only take potassium pills with milk. Potassium-Containing Compounds Sodium Chloride Past Medical History: Past Medical History: Diagnosis Date Blunt head trauma 04/02/2002 CHF (congestive heart failure) Cocaine dependence in remission none since 2007 Elevated LFT's 10/2010 ALT 66 Heart failure 10/2010 Dx at [facility] Hyperlipidemia, mixed 12/29/1998 Hypertension LUZ [...] stated as uncontrolled(250.70) 04/23/2013 Past Surgical History: Past Surgical History: Procedure Laterality Date HX KNEE SURGERY Social History: Social History Tobacco Use Smoking status: Never Smoker Smokeless tobacco: Never Used Tobacco comment: Trying to quit 10/2010. Substance Use Topics Alcohol use: No Alcohol/week: 0.0 oz Comment: Alcoholic Drinks/day: no Family History: Family History Problem Relation Name Age of Onset Diabetes Father Cancer Father liver diagnosis, 9 month after Diagnosis, 7 years ago, High Blood Pressure Mother Elevated Lipids Mother Heart Disease Maternal Grandfather Review of Systems: Constitutional: no fever, no chills, no night sweats, no unintentional weight ch anges, no fatigue Skin: no rashes, no lesions, no pruritis, no petechiae ENT: no blurry vision, no double vision, no hearing changes, no epistaxis, no or al ulcers Respiratory: no shortness of breath, no cough, no wheezing, no hemoptysis Cardiovascular: no chest pain, no palpitations, no dyspnea of exertion, no parox symal nocturnal dyspnea, no orthopnea Gastrointestinal: no nausea, no vomiting, no diarrhea, no constipation, no abd p ain, no melena/hematochezia Genitourinary: no dysuria, no hematuria, no frequency, no urgency Musculoskeletal: no myalgias, no arthralgias, no stiffness, no tenderness Neurologic: no headache, no numbness/tingling, no weakness, no dizziness, no lig htheadedness Psychiatric: no depression, no insomnia, no excessive drowsiness, no SI Endocrine: no polyuria, no polydipsia, no temp intolerance, no polyphagia Hematologic: no easy bleeding/brusing, no lymphadenopathy, no recurrent infectio ns Examination: There were no vitals taken for this visit. General appearance - alert, well appearing, and in no distress Mental Status - alert, oriented to person, place, and time Eyes - sclera anicteric Throat - mucous membranes moist, pharynx normal without lesions Neck - supple, no significant adenopathy Thyroid - no nodules felt Chest - clear to auscultation, no wheezes, rales or rhonchi, symmetric air entry Heart - normal rate, regular rhythm, normal S1, S2, no murmurs, rubs, clicks or gallops Abdomen - soft, nontender, ++distended, no masses or organomegaly Back exam - not examined Neurological - alert, oriented, normal speech, no focal findings or movement dis order noted Musculoskeletal - not examined Extremities - peripheral pulses normal, no pedal edema, no clubbing or cyanosis Skin - normal coloration and turgor, no rashes, no suspicious skin lesions noted Data: Laboratory Testing: Reviewed in [facility] Radiology Studies: Reviewed in [facility] Impression: Momo Larson is a 53 y.o. male with: Patient Active Problem List Diagnosis HYPERLIPIDEMIA, MIXED RHINITIS, ALLERGIC, DUE TO POLLEN Major depressive disorder, single episode, severe with psychotic features Schizoaffective disorder Blunt head trauma SLEEP APNEA, OBSTRUCTIVE NEOPLASM, MALIGNANT, LIVER, FAMILY HX Pulmonary nodule Elevated LFT's, ALT 66 on 11/15/2010 Hepatomegaly Fatty liver Active smoker HTN (hypertension) LUZ (obstructive sleep apnea) on auto CPAP 15-20 cmH2O CHF (congestive heart failure) Obesity Type II or unspecified type diabetes mellitus with peripheral circulatory di sorders, not stated as uncontrolled(250.70) Type 2 diabetes mellitus without retinopathy Plan: 1. CKD-Patient has had CKD Stage III since 2014. Seems likely 2/2 DM II + possib le ?CRS, however no significant proteinuria noted. HIV, Hepatitis panel, RPR and autoimmune panel negative. Patient recently hospitalized with stable renal func tion. We will recheck BMP today. Continue diabetes control -normal sized kidneys on ultrasound 2. Electrolytes: acceptable on last check, recheck today 3. Acid-base: acceptable on last check, recheck today 4. Volume: increase torsemide back to 60mg in the morning and 20mg in the evenin g. Advised on taking extra 20mg tablet in the evening if weight up by 2lbs in on e day or 5lbs in one week. Daily weights. Will also check BNP 5. Heme: acceptable on last check 6. CKD-MBD: check Pi, vit D deficiency in 06/2018-will start ergocalciferol 22232 units qweekly for 12 weeks. 7. CVS: previously on tony-I and spironolactone, now off. Only on Coreg with cont rolled HTN. Will monitor 8. Diabetes: Poorly controlled on insulin 9. Nutrition: low salt diet 10. Education: Pt was educated on low salt diet The plan was discussed with the patient who verbalized understanding. F/U in 3 months Thank you for referring this patient for consultation and allowing me to partici [place] in his care. Please do not hesitate to call with any questions. Susanna Leach DO [employer] Division of Nephrology [facility] Office number: [phone] documented in this encounter Plan of Treatment Care Team Description Date Type Specialty Darvin Mo NP [facility] [place] [address] [phone] 11/15/2018 Office Visit [facility] Antonio Alarcon MD [address] [address] [phone] 01/10/2019 Office Visit Endocrinology Order Schedule Name Type Priority Associated Diagnoses Ordered: 11/15/2018 BASIC METABOLIC PANEL Lab Routine CKD (chronic kidney disease), stage III Essential hypertension Uncontrolled type 2 diabetes mellitus with hyperglycemia Ordered: 11/15/2018 RANDOM URINE Lab Routine CKD (chronic kidney PROTEIN/CREATININE disease), stage III Essential hypertension Uncontrolled type 2 diabetes mellitus with hyperglycemia Ordered: 11/15/2018 PHOSPHORUS Lab Routine CKD (chronic kidney disease), stage III Essential hypertension Uncontrolled type 2 diabetes mellitus with hyperglycemia Vitamin D deficiency Ordered: 11/15/2018 PTH INTACT Lab Routine CKD (chronic kidney disease), stage III Essential hypertension Uncontrolled type 2 diabetes mellitus with hyperglycemia Vitamin D deficiency Ordered: 11/15/2018 VITAMIN D 25 HYDROXY Lab Routine CKD (chronic kidney disease), stage III Essential hypertension Uncontrolled type 2 diabetes mellitus with hyperglycemia Vitamin D deficiency Ordered: 11/15/2018 URINALYSIS AUTO W/SCOPE Lab Routine CKD (chronic kidney disease), stage III Essential hypertension Uncontrolled type 2 diabetes mellitus with hyperglycemia Ordered: 11/15/2018 BRAIN NATRIURETIC PEPTIDE Lab Routine CKD (chronic kidney disease), stage III Congestive heart failure, unspecified HF chronicity, unspecified heart failure type Health Maintenance Due Date Last Done Comments [...] filedocumented in this encounter Visit Diagnoses Diagnosis CKD (chronic kidney disease), stage III - Primary Chronic kidney disease, Stage III (moderate) Essential hypertension Unspecified essential hypertension Uncontrolled type 2 diabetes mellitus with hyperglycemia Vitamin D deficiency Unspecified vitamin D deficiency Congestive heart failure, unspecified HF chronicity, unspecified heart failure type documented in this encounter Insurance Type Payer Benefit Subscriber ID Effective Phone Address Plan / Dates Group Medicare [employer] MMP - STAR xxxxxxxxx 2017-P [address] [address] [place]IC[place] [id number] documented as of this encounter Advance Directives 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
--- OUTSIDE RECORDS SUMMARY | 2018-12-19 01:34 | XMS REPORT ---
Author Author [facility] Address Unknown Phone Unavailable Care Team Providers Care Can Worker Name Role Phone UNKNOWN, REFFERING PP Unavailable Jairo SPENCE Unavailable Unavailable Mahin MALONE Unavailable Unavailable AHMED, HOSEA Unavailable Unavailable CARINA, ARIF Unavailable Unavailable LUCRECIA JOHNSON Unavailable Unavailable TAJ PANIAGUA Unavailable Unavailable ALVARADO BENTON Unavailable Unavailable Kathrin AUGUST Unavailable Unavailable PRINCE LIMA Unavailable Unavailable Jasmin FRANCISCO Unavailable Unavailable Paula PANDYA Unavailable Unavailable SEUN FONSECA Unavailable Unavailable Bess ZARAGOZA Unavailable Unavailable SHILPI LANDEROS Unavailable Unavailable RAI QUINTEROS Unavailable Unavailable Problems This patient has no known problems. Allergies, Adverse Reactions, Alerts This patient has no known allergies or adverse reactions. Medications This patient has no known medications. Encounters Start Date/Time End Date/Time Encounter Type Admission Type Attending Clinicians Care Facility Care Department Encounter ID 2017-11-29 00:00:00 2017-11-30 00:00:00 [facility] [id number] Results Test Description Test Time Test Comments Text Results Atomic Results Result Comments CHEST SINGLE (PORTABLE) 2018-12-19 00:42:00 [facility] [address] [address] Patient Name: NELI ABRAHAM MR #: [id number] : 1965 Age/Sex: 53/M Req #: [id number] Adm Physician: Ordered by: ARACELIS SPENCE MD Report #: [id number] Location: ER Room/Bed: Procedure: DX/CHEST SINGLE (PORTABLE) Exam Date: 12/18/18 Exam Time: 2353 REPORT STATUS: Signed EXAMINATION: CHEST SINGLE (PORTABLE) INDICATION: chest pain 20181218 Y COMPARISON: None FINDINGS: AP view TUBES and LINES: Single lead left chest wall cardiac device in place with distal tip projecting over right ventricle. Retrocardiac hazy opacification. LUNGS: Lungs are well inflated. Mild central vascular congestion. PLEURA: No significant pleural effusion or pneumothorax. HEART AND MEDIASTINUM: The cardiomediastinal silhouette is enlarged. BONES AND SOFT TISSUES: No acute osseous lesion. Soft tissues are unremarkable. UPPER ABDOMEN: No free air under the diaphragm. IMPRESSION: Enlarged cardiomediastinal silhouette and mild vascular congestion. Retrocardiac hazy opacification, representing atelectasis and/or pneumonia in the appropriate clinical context. Signed by: Dr. Adilson Parada MD on 12/19/2018 12:44 AM Dictated By: ADILSON PARADA MD Transcribed By: JESS on 12/19/1843 COPY TO: ARACELIS SPENCE MD CT ABDOMEN/PELVIS WO 2018-12-19 00:12:00 [address] [address] Patient Name: NELI ABRAHAM MR #: [id number] : 1965 Age/Sex: 53/M Req #: [id number] Adm Physician: Ordered by: ARACELIS SPENCE MD Report #: [id number] Location: ER Room/Bed: Procedure: [id number] CT/CT ABDOMEN/PELVIS WO Exam Date: 12/18/18 Exam Time: 2343 REPORT STATUS: Signed EXAM: CT Abdomen and Pelvis WITHOUT contrast INDICATION: abd pain 20181218 Y COMPARISON: None. TECHNIQUE: Abdomen and pelvis were scanned utilizing a multidetector helical scanner from the lung base to the pubic symphysis without administration of IV contrast. Absence of intravenous contrast decreases sensitivity for detection of focal lesions and vascular pathology. Coronal and sagittal reformations were obtained. Routine protocol was performed. IV CONTRAST: None ORAL CONTRAST: None COMPLICATIONS: None RADIATION DOSE: Total DLP: 826.88 mGy*cm Estimated effective dose: (DLP x 0.015 x size factor) mSv CTDIvol has been reviewed. It is below the limits set by the Radiation Protocol Committee (RPC). FINDINGS: LINES and TUBES: None. LOWER THORAX: Small right and trace left pleural effusions. Trace pericardial effusion. Partially seen distal lead of cardiac device, terminating in right ventricle. Lingular atelectasis/scarring. HEPATOBILIARY: Unenhanced liver is unremarkable. No biliary ductal dilation. GALLBLADDER: No radio-opaque stones or sludge. No wall thickening. SPLEEN: No splenomegaly. PANCREAS: No focal masses or ductal dilatation. ADRENALS: No adrenal nodules KIDNEYS/URETERS: No hydronephrosis. Limited for evaluation of renal parenchyma without intravenous contrast. Nonspecific bilateral perinephric fat stranding. No stones. GI TRACT: No abnormal distention, wall thickening, or evidence of bowel obstruction. There are diverticula within the colon without evidence of diverticulitis. Appendix is normal. PELVIC ORGANS/BLADDER: Unremarkable. LYMPH NODES: No lymphadenopathy. VESSELS: Unremarkable. PERITONEUM / RETROPERITONEUM: No free air or fluid. BONES: Unremarkable. SOFT TISSUES: Fat-containing bilateral inguinal and a small fat-containing umbilical hernias. IMPRESSION: 1. No definite evidence of acute inflammatory process in the abdomen/pelvis, considering limitations of unenhanced study. 2. Small right and trace left pleural effusions. 3. Mild colonic diverticulosis without evidence of diverticulitis. Signed by: Dr. Adilson Parada MD on 12/19/2018 12:21 AM Dictated By: ADILSON PARADA MD 0021 Transcribed By: JESS on 12/19/18 0021 COPY TO: ARACELIS SPENCE MD B-TYPE NATRIURETIC FACTOR (BNP) 2018-11-19 11:34:00 B-TYPE NATRIURETIC PEPTIDE (BEAKER) (test hdvh=513) 258 pg/mL 0-100 BASIC METABOLIC [id number] 11:27:00* Test Item Value Reference Range Comments SODIUM (BEAKER) (test tjvi=721) 134 meq/L 136-145 POTASSIUM (BEAKER) (test qcnj=811) 3.7 meq/L 3.5-5.1 CHLORIDE (BEAKER) (test cwze=845) 95 meq/L 98-107 CO2 (BEAKER) (test txar=440) 31 meq/L 22-29 BLOOD UREA NITROGEN (BEAKER) (test urzf=823) 24 mg/dL 7-21 CREATININE (BEAKER) (test lcmh=050) 1.70 mg/dL 0.57-1.25 GLUCOSE RANDOM (BEAKER) (test rced=263) 313 mg/dL 70-105 CALCIUM (BEAKER) (test sjhg=946) 9.0 mg/dL 8.4-10.2 EGFR (BEAKER) (test jvsl=5107) 42 mL/min/1.73 sq m ESTIMATED GFR IS NOT ACCURATE CREATININE CLEARANCE IN PREDICTING GLOMERULAR FILTRATION RATE. ESTIMATED GFR IS NOT APPLICABLE FOR DIALYSIS PATIENTS. CBC W/PLT COUNT & AUTO [id number] 11:15:00* Test Item Value Reference Range Comments WHITE BLOOD CELL COUNT (BEAKER) (test leea=584) 7.2 K/ L 3.5-10.5 RED BLOOD CELL COUNT (BEAKER) (test aqdf=761) 5.31 M/ L 4.63-6.08 HEMOGLOBIN (BEAKER) (test ocfj=505) 15.6 GM/DL 13.7-17.5 HEMATOCRIT (BEAKER) (test vkij=018) 45.9 % 40.1-51.0 MEAN CORPUSCULAR VOLUME (BEAKER) (test mtxz=067) 86.4 fL 79.0-92.2 MEAN CORPUSCULAR HEMOGLOBIN (BEAKER) (test gfkg=747) 29.4 pg 25.7-32.2 MEAN CORPUSCULAR HEMOGLOBIN CONC (BEAKER) (test jmra=074) 34.0 GM/DL 32.3-36.5 RED CELL DISTRIBUTION WIDTH (BEAKER) (test plli=098) 13.0 % 11.6-14.4 PLATELET COUNT (BEAKER) (test zkjs=940) 194 K/CU MM 150-450 MEAN PLATELET VOLUME (BEAKER) (test twqr=262) 9.7 fL 9.4-12.4 NUCLEATED RED BLOOD CELLS (BEAKER) (test gunj=999) 0 /100 WBC 0-0 NEUTROPHILS RELATIVE PERCENT (BEAKER) (test vlkb=502) 65 % LYMPHOCYTES RELATIVE PERCENT (BEAKER) (test fqls=680) 21 % MONOCYTES RELATIVE PERCENT (BEAKER) (test zpbe=643) 11 % EOSINOPHILS RELATIVE PERCENT (BEAKER) (test blka=832) 2 % BASOPHILS RELATIVE PERCENT (BEAKER) (test ihyb=179) 0 % NEUTROPHILS ABSOLUTE COUNT (BEAKER) (test kgbi=076) 4.66 K/ L 1.78-5.38 LYMPHOCYTES ABSOLUTE COUNT (BEAKER) (test adbx=893) 1.50 K/ L 1.32-3.57 MONOCYTES ABSOLUTE COUNT (BEAKER) (test nttr=561) 0.76 K/ L 0.30-0.82 EOSINOPHILS ABSOLUTE COUNT (BEAKER) (test nvto=235) 0.16 K/ L 0.04-0.54 BASOPHILS ABSOLUTE COUNT (BEAKER) (test evhg=257) 0.03 K/ L 0.01-0.08 IMMATURE GRANULOCYTES-RELATIVE PERCENT (BEAKER) (test dgsu=5193) 1 % 0-1 BLOOD [id number] 02:00:00* Test Item Value Reference Range Comments CULTURE (BEAKER) (test khrg=5459) No growth in 5 days BLOOD [id number] 20:01:00* Test Item Value Reference Range Comments CULTURE (BEAKER) (test olck=9322) No growth in 5 days POCT-GLUCOSE [id number] 09:25:00* Test Item Value Reference Range Comments POC-GLUCOSE METER (BEAKER) (test dvvr=2135) 294 mg/dL 70-110 TESTED AT [facility] [address] [facility] [address] BASIC METABOLIC [id number] 05:52:00* Test Item Value Reference Range Comments SODIUM (BEAKER) (test jprs=891) 141 meq/L 136-145 POTASSIUM (BEAKER) (test pzdb=200) 3.9 meq/L 3.5-5.1 Specimen slightly hemolyzed CHLORIDE (BEAKER) (test qrbh=193) 103 meq/L 98-107 CO2 (BEAKER) (test dauc=374) 29 meq/L 22-29 BLOOD UREA NITROGEN (BEAKER) (test reox=248) 17 mg/dL 7-21 CREATININE (BEAKER) (test zzsi=040) 1.48 mg/dL 0.57-1.25 Specimen slightly hemolyzed GLUCOSE RANDOM (BEAKER) (test cuul=508) 283 mg/dL 70-105 CALCIUM (BEAKER) (test jute=073) 8.7 mg/dL 8.4-10.2 EGFR (BEAKER) (test jmxd=1789) 50 mL/min/1.73 sq m ESTIMATED GFR IS NOT ACCURATE CREATININE CLEARANCE IN PREDICTING GLOMERULAR FILTRATION RATE. ESTIMATED GFR IS NOT APPLICABLE FOR DIALYSIS PATIENTS. CBC W/PLT COUNT & AUTO [id number] 05:20:00* Test Item Value Reference Range Comments WHITE BLOOD CELL COUNT (BEAKER) (test brlo=038) 8.6 K/ L 3.5-10.5 RED BLOOD CELL COUNT (BEAKER) (test hqqs=209) 5.32 M/ L 4.63-6.08 HEMOGLOBIN (BEAKER) (test itdc=756) 15.3 GM/DL 13.7-17.5 HEMATOCRIT (BEAKER) (test xhdo=366) 46.9 % 40.1-51.0 MEAN CORPUSCULAR VOLUME (BEAKER) (test qkvc=805) 88.2 fL 79.0-92.2 MEAN CORPUSCULAR HEMOGLOBIN (BEAKER) (test tcoi=096) 28.8 pg 25.7-32.2 MEAN CORPUSCULAR HEMOGLOBIN CONC (BEAKER) (test exne=230) 32.6 GM/DL 32.3-36.5 RED CELL DISTRIBUTION WIDTH (BEAKER) (test cikz=972) 12.7 % 11.6-14.4 PLATELET COUNT (BEAKER) (test wkek=842) 198 K/CU MM 150-450 MEAN PLATELET VOLUME (BEAKER) (test gory=145) 9.9 fL 9.4-12.4 NUCLEATED RED BLOOD CELLS (BEAKER) (test fsvo=053) 0 /100 WBC 0-0 NEUTROPHILS RELATIVE PERCENT (BEAKER) (test dfvr=934) 71 % LYMPHOCYTES RELATIVE PERCENT (BEAKER) (test vgkv=795) 17 % MONOCYTES RELATIVE PERCENT (BEAKER) (test grdi=728) 9 % EOSINOPHILS RELATIVE PERCENT (BEAKER) (test krwf=968) 2 % BASOPHILS RELATIVE PERCENT (BEAKER) (test xwps=822) 0 % NEUTROPHILS ABSOLUTE COUNT (BEAKER) (test lbkt=049) 6.13 K/ L 1.78-5.38 LYMPHOCYTES ABSOLUTE COUNT (BEAKER) (test pisg=080) 1.50 K/ L 1.32-3.57 MONOCYTES ABSOLUTE COUNT (BEAKER) (test goza=276) 0.75 K/ L 0.30-0.82 EOSINOPHILS ABSOLUTE COUNT (BEAKER) (test hxks=599) 0.17 K/ L 0.04-0.54 BASOPHILS ABSOLUTE COUNT (BEAKER) (test ykkh=252) 0.03 K/ L 0.01-0.08 IMMATURE GRANULOCYTES-RELATIVE PERCENT (BEAKER) (test gdyv=0467) 0 % 0-1 POCT-GLUCOSE [id number] 22:21:00* Test Item Value Reference Range Comments POC-GLUCOSE METER (BEAKER) (test zdyd=7601) 227 mg/dL 70-110 TESTED AT [address] [address] POCT-GLUCOSE [id number] 18:38:00* Test Item Value Reference Range Comments POC-GLUCOSE METER (BEAKER) (test qdla=9309) 231 mg/dL 70-110 TESTED AT [address] [address] POCT-GLUCOSE [id number] 14:34:00* Test Item Value Reference Range Comments POC-GLUCOSE METER (BEAKER) (test allz=7996) 141 mg/dL 70-110 TESTED AT [address] [address] POCT-GLUCOSE [id number] 10:31:00* Test Item Value Reference Range Comments POC-GLUCOSE METER (BEAKER) (test yxzk=4902) 292 mg/dL 70-110 TESTED AT [address] [address] BASIC METABOLIC [id number] 05:59:00* Test Item Value Reference Range Comments SODIUM (BEAKER) (test yajj=301) 141 meq/L 136-145 POTASSIUM (BEAKER) (test hior=380) 3.6 meq/L 3.5-5.1 Specimen slightly hemolyzed CHLORIDE (BEAKER) (test xijf=796) 106 meq/L 98-107 CO2 (BEAKER) (test aadc=394) 27 meq/L 22-29 BLOOD UREA NITROGEN (BEAKER) (test rkrt=263) 15 mg/dL 7-21 CREATININE (BEAKER) (test qpeh=139) 1.39 mg/dL 0.57-1.25 Specimen slightly hemolyzed GLUCOSE RANDOM (BEAKER) (test lyzo=411) 255 mg/dL 70-105 CALCIUM (BEAKER) (test ytlq=636) 8.4 mg/dL 8.4-10.2 EGFR (BEAKER) (test grsh=6098) 53 mL/min/1.73 sq m ESTIMATED GFR IS NOT ACCURATE CREATININE CLEARANCE IN PREDICTING GLOMERULAR FILTRATION RATE. ESTIMATED GFR IS NOT APPLICABLE FOR DIALYSIS PATIENTS. CBC W/PLT COUNT & AUTO [id number] 04:57:00* Test Item Value Reference Range Comments WHITE BLOOD CELL COUNT (BEAKER) (test oeyi=165) 6.4 K/ L 3.5-10.5 RED BLOOD CELL COUNT (BEAKER) (test lzqw=427) 5.18 M/ L 4.63-6.08 HEMOGLOBIN (BEAKER) (test cssx=030) 15.2 GM/DL 13.7-17.5 HEMATOCRIT (BEAKER) (test jjpm=081) 45.6 % 40.1-51.0 MEAN CORPUSCULAR VOLUME (BEAKER) (test joub=381) 88.0 fL 79.0-92.2 MEAN CORPUSCULAR HEMOGLOBIN (BEAKER) (test wggw=502) 29.3 pg 25.7-32.2 MEAN CORPUSCULAR HEMOGLOBIN CONC (BEAKER) (test xzyy=564) 33.3 GM/DL 32.3-36.5 RED CELL DISTRIBUTION WIDTH (BEAKER) (test nrxt=414) 12.7 % 11.6-14.4 PLATELET COUNT (BEAKER) (test uyjm=981) 165 K/CU MM 150-450 MEAN PLATELET VOLUME (BEAKER) (test pboy=958) 10.1 fL 9.4-12.4 NUCLEATED RED BLOOD CELLS (BEAKER) (test sted=933) 0 /100 WBC 0-0 NEUTROPHILS RELATIVE PERCENT (BEAKER) (test ifoo=821) 70 % LYMPHOCYTES RELATIVE PERCENT (BEAKER) (test auhg=120) 16 % MONOCYTES RELATIVE PERCENT (BEAKER) (test nzjc=626) 10 % EOSINOPHILS RELATIVE PERCENT (BEAKER) (test ljtl=839) 3 % BASOPHILS RELATIVE PERCENT (BEAKER) (test acim=167) 1 % NEUTROPHILS ABSOLUTE COUNT (BEAKER) (test vdvp=042) 4.49 K/ L 1.78-5.38 LYMPHOCYTES ABSOLUTE COUNT (BEAKER) (test zonk=280) 1.01 K/ L 1.32-3.57 MONOCYTES ABSOLUTE COUNT (BEAKER) (test awvb=073) 0.65 K/ L 0.30-0.82 EOSINOPHILS ABSOLUTE COUNT (BEAKER) (test uhxr=582) 0.16 K/ L 0.04-0.54 BASOPHILS ABSOLUTE COUNT (BEAKER) (test ucom=070) 0.03 K/ L 0.01-0.08 IMMATURE GRANULOCYTES-RELATIVE PERCENT (BEAKER) (test rang=0834) 1 % 0-1 POCT-GLUCOSE [id number] 23:02:00* Test Item Value Reference Range Comments POC-GLUCOSE METER (BEAKER) (test dive=3042) 270 mg/dL 70-110 TESTED AT [address] [address] POCT-GLUCOSE [id number] 17:31:00* Test Item Value Reference Range Comments POC-GLUCOSE METER (BEAKER) (test vaja=7534) 216 mg/dL 70-110 TESTED AT [address] [address] POCT-GLUCOSE [id number] 14:10:00* Test Item Value Reference Range Comments POC-GLUCOSE METER (BEAKER) (test yfde=5570) 105 mg/dL 70-110 TESTED AT [address] [address] POCT-GLUCOSE [id number] 11:14:00* Test Item Value Reference Range Comments POC-GLUCOSE METER (BEAKER) (test ezbi=4806) 177 mg/dL 70-110 TESTED AT [address] [address] POCT-GLUCOSE [id number] 18:08:00* Test Item Value Reference Range Comments POC-GLUCOSE METER (BEAKER) (test fgkk=3724) 214 mg/dL 70-110 TESTED AT [facility] [address] [facility] [address] BASIC METABOLIC [id number] 07:05:00* Test Item Value Reference Range Comments SODIUM (BEAKER) (test grks=355) 137 meq/L 136-145 POTASSIUM (BEAKER) (test cico=970) 3.7 meq/L 3.5-5.1 CHLORIDE (BEAKER) (test frxs=824) 103 meq/L 98-107 CO2 (BEAKER) (test mkwm=602) 29 meq/L 22-29 BLOOD UREA NITROGEN (BEAKER) (test nvso=551) 16 mg/dL 7-21 CREATININE (BEAKER) (test avyk=319) 1.27 mg/dL 0.57-1.25 GLUCOSE RANDOM (BEAKER) (test bsnq=551) 310 mg/dL 70-105 CALCIUM (BEAKER) (test flmb=253) 8.3 mg/dL 8.4-10.2 EGFR (BEAKER) (test dhyf=0025) 59 mL/min/1.73 sq m ESTIMATED GFR IS NOT ACCURATE CREATININE CLEARANCE IN PREDICTING GLOMERULAR FILTRATION RATE. ESTIMATED GFR IS NOT APPLICABLE FOR DIALYSIS PATIENTS. CBC W/PLT COUNT & AUTO [id number] 06:47:00* Test Item Value Reference Range Comments WHITE BLOOD CELL COUNT (BEAKER) (test adqe=155) 6.4 K/ L 3.5-10.5 RED BLOOD CELL COUNT (BEAKER) (test yqzm=641) 4.86 M/ L 4.63-6.08 HEMOGLOBIN (BEAKER) (test kwal=643) 14.3 GM/DL 13.7-17.5 HEMATOCRIT (BEAKER) (test gehh=337) 43.0 % 40.1-51.0 MEAN CORPUSCULAR VOLUME (BEAKER) (test ybqa=966) 88.5 fL 79.0-92.2 MEAN CORPUSCULAR HEMOGLOBIN (BEAKER) (test unna=062) 29.4 pg 25.7-32.2 MEAN CORPUSCULAR HEMOGLOBIN CONC (BEAKER) (test mmpg=251) 33.3 GM/DL 32.3-36.5 RED CELL DISTRIBUTION WIDTH (BEAKER) (test jpqk=918) 12.7 % 11.6-14.4 PLATELET COUNT (BEAKER) (test zetq=663) 167 K/CU MM 150-450 MEAN PLATELET VOLUME (BEAKER) (test oikg=361) 9.9 fL 9.4-12.4 NUCLEATED RED BLOOD CELLS (BEAKER) (test rrwn=650) 0 /100 WBC 0-0 NEUTROPHILS RELATIVE PERCENT (BEAKER) (test lyjf=691) 65 % LYMPHOCYTES RELATIVE PERCENT (BEAKER) (test qtps=217) 20 % MONOCYTES RELATIVE PERCENT (BEAKER) (test zchi=316) 11 % EOSINOPHILS RELATIVE PERCENT (BEAKER) (test hhta=331) 3 % BASOPHILS RELATIVE PERCENT (BEAKER) (test fggd=154) 1 % NEUTROPHILS ABSOLUTE COUNT (BEAKER) (test hsah=454) 4.15 K/ L 1.78-5.38 LYMPHOCYTES ABSOLUTE COUNT (BEAKER) (test xosi=318) 1.28 K/ L 1.32-3.57 MONOCYTES ABSOLUTE COUNT (BEAKER) (test kgzi=390) 0.72 K/ L 0.30-0.82 EOSINOPHILS ABSOLUTE COUNT (BEAKER) (test kclc=670) 0.18 K/ L 0.04-0.54 BASOPHILS ABSOLUTE COUNT (BEAKER) (test dfdc=865) 0.04 K/ L 0.01-0.08 IMMATURE GRANULOCYTES-RELATIVE PERCENT (BEAKER) (test boud=6176) 1 % 0-1 DIGOXIN [id number] 15:18:00* Test Item Value Reference Range Comments DIGOXIN LEVEL (BEAKER) (test pedh=866) 0.4 ng/mL 0.8-2.0 BASIC METABOLIC [id number] 06:50:00* Test Item Value Reference Range Comments SODIUM (BEAKER) (test mebk=200) 139 meq/L 136-145 POTASSIUM (BEAKER) (test mpdo=238) 3.5 meq/L 3.5-5.1 CHLORIDE (BEAKER) (test boha=201) 99 meq/L 98-107 CO2 (BEAKER) (test gcaq=094) 32 meq/L 22-29 BLOOD UREA NITROGEN (BEAKER) (test meak=628) 22 mg/dL 7-21 CREATININE (BEAKER) (test wgcu=947) 1.49 mg/dL 0.57-1.25 GLUCOSE RANDOM (BEAKER) (test pvoc=073) 242 mg/dL 70-105 CALCIUM (BEAKER) (test aohj=823) 9.0 mg/dL 8.4-10.2 EGFR (BEAKER) (test cych=4112) 49 mL/min/1.73 sq m ESTIMATED GFR IS NOT ACCURATE CREATININE CLEARANCE IN PREDICTING GLOMERULAR FILTRATION RATE. ESTIMATED GFR IS NOT APPLICABLE FOR DIALYSIS PATIENTS. CBC W/PLT COUNT & AUTO [id number] 06:05:00* Test Item Value Reference Range Comments WHITE BLOOD CELL COUNT (BEAKER) (test pjip=768) 7.8 K/ L 3.5-10.5 RED BLOOD CELL COUNT (BEAKER) (test ckkp=427) 5.66 M/ L 4.63-6.08 HEMOGLOBIN (BEAKER) (test xmfp=826) 16.7 GM/DL 13.7-17.5 HEMATOCRIT (BEAKER) (test avxj=229) 49.1 % 40.1-51.0 MEAN CORPUSCULAR VOLUME (BEAKER) (test epow=972) 86.7 fL 79.0-92.2 MEAN CORPUSCULAR HEMOGLOBIN (BEAKER) (test tezq=098) 29.5 pg 25.7-32.2 MEAN CORPUSCULAR HEMOGLOBIN CONC (BEAKER) (test jnpd=982) 34.0 GM/DL 32.3-36.5 RED CELL DISTRIBUTION WIDTH (BEAKER) (test emfv=164) 12.6 % 11.6-14.4 PLATELET COUNT (BEAKER) (test ujnb=841) 203 K/CU MM 150-450 MEAN PLATELET VOLUME (BEAKER) (test eips=166) 9.8 fL 9.4-12.4 NUCLEATED RED BLOOD CELLS (BEAKER) (test drhz=977) 0 /100 WBC 0-0 NEUTROPHILS RELATIVE PERCENT (BEAKER) (test whlf=777) 70 % LYMPHOCYTES RELATIVE PERCENT (BEAKER) (test zodh=447) 19 % MONOCYTES RELATIVE PERCENT (BEAKER) (test xmon=935) 8 % EOSINOPHILS RELATIVE PERCENT (BEAKER) (test bhvt=968) 2 % BASOPHILS RELATIVE PERCENT (BEAKER) (test bkjn=069) 0 % NEUTROPHILS ABSOLUTE COUNT (BEAKER) (test tlgh=983) 5.44 K/ L 1.78-5.38 LYMPHOCYTES ABSOLUTE COUNT (BEAKER) (test plfm=952) 1.48 K/ L 1.32-3.57 MONOCYTES ABSOLUTE COUNT (BEAKER) (test osnv=828) 0.66 K/ L 0.30-0.82 EOSINOPHILS ABSOLUTE COUNT (BEAKER) (test qhfh=741) 0.19 K/ L 0.04-0.54 BASOPHILS ABSOLUTE COUNT (BEAKER) (test ddyg=796) 0.03 K/ L 0.01-0.08 IMMATURE GRANULOCYTES-RELATIVE PERCENT (BEAKER) (test agya=9578) 0 % 0-1 POCT-GLUCOSE [id number] 22:14:00* Test Item Value Reference Range Comments POC-GLUCOSE METER (BEAKER) (test cpxk=5065) 328 mg/dL 70-110 Notified BRENDON JETT/TESTED AT [address] [address] POCT-GLUCOSE [id number] 18:52:00* Test Item Value Reference Range Comments POC-GLUCOSE METER (BEAKER) (test aswu=1963) 244 mg/dL 70-110 TESTED AT [address] [address] HEMOGLOBIN [id number] 18:19:00* Test Item Value Reference Range Comments HEMOGLOBIN A1C (BEAKER) (test nxuf=065) 10.4 % 4.3-6.1 URINALYSIS W/ REFLEX URINE [id number] 18:03:00* Test Item Value Reference Range Comments COLOR (BEAKER) (test kovo=765) Colorless CLARITY (BEAKER) (test kfyd=598) Clear SPECIFIC GRAVITY UA (BEAKER) (test udih=188) 1.007 1.001-1.035 PH UA (BEAKER) (test ghdl=951) 6.0 5.0-8.0 PROTEIN UA (BEAKER) (test mzzr=902) Negative Negative GLUCOSE UA (BEAKER) (test eibd=052) Negative Negative KETONES UA (BEAKER) (test qkru=688) Negative Negative BILIRUBIN UA (BEAKER) (test xyhb=426) Negative Negative BLOOD UA (BEAKER) (test oamf=490) Negative Negative NITRITE UA (BEAKER) (test qdzy=059) Negative Negative LEUKOCYTE ESTERASE UA (BEAKER) (test etsa=925) Negative Negative UROBILINOGEN UA (BEAKER) (test xyts=357) 0.2 mg/dL 0.2-1.0 RBC UA (BEAKER) (test waoi=546) < /HPF WBC UA (BEAKER) (test nitu=991) < /HPF SQUAMOUS EPITHELIAL (BEAKER) (test fkiu=150) < /HPF SOURCE(BEAKER) (test kplj=6644) HEMOGLOBIN [id number] 14:01:00* Test Item Value Reference Range Comments HEMOGLOBIN A1C (BEAKER) (test qllx=397) 10.5 % 4.3-6.1 B-TYPE NATRIURETIC FACTOR (BNP)2018-11-05 11:11:00* Test Item Value Reference Range Comments B-TYPE NATRIURETIC PEPTIDE (BEAKER) (test syzm=319) 225 pg/mL 0-100 BASIC METABOLIC [id number] 11:03:00* Test Item Value Reference Range Comments SODIUM (BEAKER) (test acqo=807) 134 meq/L 136-145 POTASSIUM (BEAKER) (test sgar=914) 3.9 meq/L 3.5-5.1 Specimen slightly hemolyzed CHLORIDE (BEAKER) (test wavk=935) 95 meq/L 98-107 CO2 (BEAKER) (test bupv=461) 29 meq/L 22-29 BLOOD UREA NITROGEN (BEAKER) (test bpyq=917) 28 mg/dL 7-21 CREATININE (BEAKER) (test dfli=909) 1.72 mg/dL 0.57-1.25 Specimen slightly hemolyzed GLUCOSE RANDOM (BEAKER) (test ygbw=474) 345 mg/dL 70-105 CALCIUM (BEAKER) (test qehp=182) 8.9 mg/dL 8.4-10.2 EGFR (BEAKER) (test sdqu=0280) 42 mL/min/1.73 sq m ESTIMATED GFR IS NOT ACCURATE CREATININE CLEARANCE IN PREDICTING GLOMERULAR FILTRATION RATE. ESTIMATED GFR IS NOT APPLICABLE FOR DIALYSIS PATIENTS. LIPID [id number] 11:03:00* Test Item Value Reference Range Comments TRIGLYCERIDES (BEAKER) (test fhxy=508) 349 mg/dL Specimen slightly hemolyzed CHOLESTEROL (BEAKER) (test ddqk=307) 131 mg/dL Specimen slightly hemolyzed HDL CHOLESTEROL (BEAKER) (test cppb=773) 27 mg/dL LDL CHOLESTEROL CALCULATED (BEAKER) (test ozuo=356) 34 mg/dL Triglyceride Reference Range: Low Risk <150 Borderline 150-199 High Risk 200-499 Very High Risk >=500Cholesterol Reference Range: Low Risk <200 Borderline 200-239 High Risk >240HDL Cholesterol Reference Range: Low Risk >=60 High Risk <40LDL Cholesterol Reference Range: Optimal <100 Near Optimal 100-129 Borderline 130-159 High 160-189 Very High >=190 HEPATIC FUNCTION [id number] 11:03:00* Test Item Value Reference Range Comments TOTAL PROTEIN (BEAKER) (test naeh=942) 7.3 gm/dL 6.0-8.3 Specimen slightly hemolyzed ALBUMIN (BEAKER) (test lfta=7911) 4.1 g/dL 3.5-5.0 Specimen slightly hemolyzed BILIRUBIN TOTAL (BEAKER) (test lphu=292) 0.4 mg/dL 0.2-1.2 Specimen slightly hemolyzed BILIRUBIN DIRECT (BEAKER) (test tari=805) 0.1 mg/dL 0.1-0.5 Specimen slightly hemolyzed ALKALINE PHOSPHATASE (BEAKER) (test rrad=479) 153 U/L 40-150 AST (SGOT) (BEAKER) (test otvj=459) 17 U/L 5-34 Specimen slightly hemolyzed ALT (SGPT) (BEAKER) (test kbav=050) 16 U/L 6-55 Specimen slightly hemolyzed CBC W/PLT COUNT & AUTO [id number] 10:46:00* Test Item Value Reference Range Comments WHITE BLOOD CELL COUNT (BEAKER) (test wbhv=370) 7.4 K/ L 3.5-10.5 RED BLOOD CELL COUNT (BEAKER) (test clit=265) 5.30 M/ L 4.63-6.08 HEMOGLOBIN (BEAKER) (test dohm=685) 15.4 GM/DL 13.7-17.5 HEMATOCRIT (BEAKER) (test bvqr=687) 45.7 % 40.1-51.0 MEAN CORPUSCULAR VOLUME (BEAKER) (test qqsk=748) 86.2 fL 79.0-92.2 MEAN CORPUSCULAR HEMOGLOBIN (BEAKER) (test cbmg=856) 29.1 pg 25.7-32.2 MEAN CORPUSCULAR HEMOGLOBIN CONC (BEAKER) (test rqjm=681) 33.7 GM/DL 32.3-36.5 RED CELL DISTRIBUTION WIDTH (BEAKER) (test gzjh=308) 12.7 % 11.6-14.4 PLATELET COUNT (BEAKER) (test swgd=569) 194 K/CU MM 150-450 MEAN PLATELET VOLUME (BEAKER) (test ikpy=177) 9.9 fL 9.4-12.4 NUCLEATED RED BLOOD CELLS (BEAKER) (test uzpd=556) 0 /100 WBC 0-0 NEUTROPHILS RELATIVE PERCENT (BEAKER) (test quqq=410) 71 % LYMPHOCYTES RELATIVE PERCENT (BEAKER) (test nfpe=488) 16 % MONOCYTES RELATIVE PERCENT (BEAKER) (test vtol=645) 9 % EOSINOPHILS RELATIVE PERCENT (BEAKER) (test ibrf=434) 3 % BASOPHILS RELATIVE PERCENT (BEAKER) (test dzjx=302) 0 % NEUTROPHILS ABSOLUTE COUNT (BEAKER) (test ckol=409) 5.30 K/ L 1.78-5.38 LYMPHOCYTES ABSOLUTE COUNT (BEAKER) (test fhxt=316) 1.18 K/ L 1.32-3.57 MONOCYTES ABSOLUTE COUNT (BEAKER) (test vgem=391) 0.69 K/ L 0.30-0.82 EOSINOPHILS ABSOLUTE COUNT (BEAKER) (test bxvh=867) 0.19 K/ L 0.04-0.54 BASOPHILS ABSOLUTE COUNT (BEAKER) (test izuw=513) 0.03 K/ L 0.01-0.08 IMMATURE GRANULOCYTES-RELATIVE PERCENT (BEAKER) (test hixy=4568) 0 % 0-1 CBC W/PLT COUNT & AUTO [id number] 11:30:00* Test Item Value Reference Range Comments WHITE BLOOD CELL COUNT (BEAKER) (test gjjh=312) 8.3 K/ L 3.5-10.5 RED BLOOD CELL COUNT (BEAKER) (test rlny=751) 4.78 M/ L 4.63-6.08 HEMOGLOBIN (BEAKER) (test lkcr=520) 14.3 GM/DL 13.7-17.5 HEMATOCRIT (BEAKER) (test ddtk=897) 42.7 % 40.1-51.0 MEAN CORPUSCULAR VOLUME (BEAKER) (test htsd=240) 89.3 fL 79.0-92.2 MEAN CORPUSCULAR HEMOGLOBIN (BEAKER) (test pyeq=233) 29.9 pg 25.7-32.2 MEAN CORPUSCULAR HEMOGLOBIN CONC (BEAKER) (test geyg=466) 33.5 GM/DL 32.3-36.5 RED CELL DISTRIBUTION WIDTH (BEAKER) (test qtgx=495) 13.2 % 11.6-14.4 PLATELET COUNT (BEAKER) (test ucno=883) 180 K/CU MM 150-450 MEAN PLATELET VOLUME (BEAKER) (test siqn=024) 10.1 fL 9.4-12.4 NUCLEATED RED BLOOD CELLS (BEAKER) (test hbkz=294) 0 /100 WBC 0-0 (CELLAVISION MANUAL DIFF)2018-10-01 11:30:00* Test Item Value Reference Range Comments NEUTROPHILS - REL (CELLAVISION)(BEAKER) (test ktof=4733) 71 % LYMPHOCYTES - REL (CELLAVISION)(BEAKER) (test wqvl=5011) 17 % MONOCYTES - REL (CELLAVISION)(BEAKER) (test xsyf=8639) 8 % EOSINOPHILS - REL (CELLAVISION)(BEAKER) (test rihb=5552) 4 % NEUTROPHILS - ABS (CELLAVISION)(BEAKER) (test fhkl=9841) 5.89 K/ul 1.78-5.38 LYMPHOCYTES - ABS (CELLAVISION)(BEAKER) (test kqni=0920) 1.41 K/ul 1.32-3.57 MONOCYTES - ABS (CELLAVISION)(BEAKER) (test ijmr=5407) 0.66 K/uL 0.30-0.82 EOSINOPHILS - ABS (CELLAVISION)(BEAKER) (test fsvg=5285) 0.33 K/uL 0.04-0.54 TOTAL COUNTED (BEAKER) (test bfix=9311) 100 WBC MORPHOLOGY (BEAKER) (test lfsi=335) Normal GIANT PLATELETS (BEAKER) (test cira=870) Present ANISOCYTOSIS (BEAKER) (test dqmr=507) 2+ moderate MICROCYTES (BEAKER) (test vjex=529) 2+ moderate POIKILOCYTES (BEAKER) (test zvmz=317) 1+ few OVALOCYTES (BEAKER) (test cles=635) 1+ few ARTIFACT (CELLAVISION)(BEAKER) (test xtdz=5982) Present PLATELET CONCENTRATION (CELLAVISION)(BEAKER) (test jbzz=5143) Adequate Received comment: User comments: Slide comments: B-TYPE NATRIURETIC FACTOR (BNP) 2018-10-01 11:02:00* Test Item Value Reference Range Comments B-TYPE NATRIURETIC PEPTIDE (BEAKER) (test jdzn=087) 400 pg/mL 0-100 BASIC METABOLIC [id number] 10:55:00* Test Item Value Reference Range Comments SODIUM (BEAKER) (test qsbr=531) 136 meq/L 136-145 POTASSIUM (BEAKER) (test ecwq=976) 4.2 meq/L 3.5-5.1 Specimen slightly hemolyzed CHLORIDE (BEAKER) (test kuwk=884) 98 meq/L 98-107 CO2 (BEAKER) (test meel=520) 30 meq/L 22-29 BLOOD UREA NITROGEN (BEAKER) (test qxns=657) 27 mg/dL 7-21 CREATININE (BEAKER) (test pvxl=679) 1.77 mg/dL 0.57-1.25 Specimen slightly hemolyzed GLUCOSE RANDOM (BEAKER) (test eiks=767) 327 mg/dL 70-105 CALCIUM (BEAKER) (test okrc=116) 8.7 mg/dL 8.4-10.2 EGFR (BEAKER) (test qhyy=7614) 40 mL/min/1.73 sq m ESTIMATED GFR IS NOT ACCURATE CREATININE CLEARANCE IN PREDICTING GLOMERULAR FILTRATION RATE. ESTIMATED GFR IS NOT APPLICABLE FOR DIALYSIS PATIENTS. POCT-GLUCOSE [id number] 21:39:00* Test Item Value Reference Range Comments POC-GLUCOSE METER (BEAKER) (test furg=6061) 244 mg/dL 70-110 TESTED AT [facility] [address] [facility] [address] POCT-GLUCOSE [id number] 18:28:00* Test Item Value Reference Range Comments POC-GLUCOSE METER (BEAKER) (test jxmn=9548) 195 mg/dL 70-110 TESTED AT [address] [address] POCT-GLUCOSE [id number] 13:26:00* Test Item Value Reference Range Comments POC-GLUCOSE METER (BEAKER) (test lypi=5051) 154 mg/dL 70-110 TESTED AT [address] [address] POCT-GLUCOSE [id number] 08:49:00* Test Item Value Reference Range Comments POC-GLUCOSE METER (BEAKER) (test aewo=2981) 293 mg/dL 70-110 TESTED AT [address] [address] POCT-GLUCOSE [id number] 22:16:00* Test Item Value Reference Range Comments POC-GLUCOSE METER (BEAKER) (test nnjd=0457) 311 mg/dL 70-110 Notified BRENDON JETT/TESTED AT [address] [address] POCT-GLUCOSE [id number] 10:04:00* Test Item Value Reference Range Comments POC-GLUCOSE METER (BEAKER) (test wiyi=3895) 211 mg/dL 70-110 TESTED AT [address] [address] POCT-GLUCOSE [id number] 23:14:00* Test Item Value Reference Range Comments POC-GLUCOSE METER (BEAKER) (test izej=8406) 323 mg/dL 70-110 TESTED AT [address] [address] POCT-GLUCOSE [id number] 22:16:00* Test Item Value Reference Range Comments POC-GLUCOSE METER (BEAKER) (test vjzy=7764) 313 mg/dL 70-110 TESTED AT [address] [address] POCT-GLUCOSE [id number] 14:31:00* Test Item Value Reference Range Comments POC-GLUCOSE METER (BEAKER) (test oiim=6003) 371 mg/dL 70-110 TESTED AT [address] [address] BASIC METABOLIC [id number] 12:04:00* Test Item Value Reference Range Comments SODIUM (BEAKER) (test ityy=488) 137 meq/L 136-145 POTASSIUM (BEAKER) (test gfix=940) 4.2 meq/L 3.5-5.1 CHLORIDE (BEAKER) (test vqhd=991) 100 meq/L 98-107 CO2 (BEAKER) (test hnqz=545) 28 meq/L 22-29 BLOOD UREA NITROGEN (BEAKER) (test wzli=701) 22 mg/dL 7-21 CREATININE (BEAKER) (test emxh=049) 1.63 mg/dL 0.57-1.25 GLUCOSE RANDOM (BEAKER) (test onge=592) 525 mg/dL 70-105 CALCIUM (BEAKER) (test bdhe=557) 8.6 mg/dL 8.4-10.2 EGFR (BEAKER) (test xlrr=4097) 44 mL/min/1.73 sq m ESTIMATED GFR IS NOT ACCURATE CREATININE CLEARANCE IN PREDICTING GLOMERULAR FILTRATION RATE. ESTIMATED GFR IS NOT APPLICABLE FOR DIALYSIS PATIENTS. CBC W/PLT COUNT & AUTO [id number] 11:42:00* Test Item Value Reference Range Comments WHITE BLOOD CELL COUNT (BEAKER) (test ztla=578) 7.1 K/ L 3.5-10.5 RED BLOOD CELL COUNT (BEAKER) (test xdos=453) 4.61 M/ L 4.63-6.08 HEMOGLOBIN (BEAKER) (test qomt=650) 13.7 GM/DL 13.7-17.5 HEMATOCRIT (BEAKER) (test izka=261) 40.8 % 40.1-51.0 MEAN CORPUSCULAR VOLUME (BEAKER) (test fget=170) 88.5 fL 79.0-92.2 MEAN CORPUSCULAR HEMOGLOBIN (BEAKER) (test iznl=435) 29.7 pg 25.7-32.2 MEAN CORPUSCULAR HEMOGLOBIN CONC (BEAKER) (test mhpe=592) 33.6 GM/DL 32.3-36.5 RED CELL DISTRIBUTION WIDTH (BEAKER) (test zcpg=552) 13.2 % 11.6-14.4 PLATELET COUNT (BEAKER) (test kuvs=825) 161 K/CU MM 150-450 MEAN PLATELET VOLUME (BEAKER) (test ccnr=289) 10.2 fL 9.4-12.4 NUCLEATED RED BLOOD CELLS (BEAKER) (test ynlr=689) 0 /100 WBC 0-0 NEUTROPHILS RELATIVE PERCENT (BEAKER) (test nyeu=072) 75 % LYMPHOCYTES RELATIVE PERCENT (BEAKER) (test onos=151) 15 % MONOCYTES RELATIVE PERCENT (BEAKER) (test guys=675) 8 % EOSINOPHILS RELATIVE PERCENT (BEAKER) (test eyxy=357) 2 % BASOPHILS RELATIVE PERCENT (BEAKER) (test hqtu=185) 0 % NEUTROPHILS ABSOLUTE COUNT (BEAKER) (test yvzo=421) 5.32 K/ L 1.78-5.38 LYMPHOCYTES ABSOLUTE COUNT (BEAKER) (test pvbr=121) 1.03 K/ L 1.32-3.57 MONOCYTES ABSOLUTE COUNT (BEAKER) (test ccmc=565) 0.54 K/ L 0.30-0.82 EOSINOPHILS ABSOLUTE COUNT (BEAKER) (test judc=407) 0.14 K/ L 0.04-0.54 BASOPHILS ABSOLUTE COUNT (BEAKER) (test yhzv=363) 0.02 K/ L 0.01-0.08 IMMATURE GRANULOCYTES-RELATIVE PERCENT (BEAKER) (test qhcd=9313) 1 % 0-1 POCT-GLUCOSE [id number] 09:43:00* Test Item Value Reference Range Comments POC-GLUCOSE METER (BEAKER) (test vqyl=6711) 369 mg/dL 70-110 TESTED AT [facility] [address] [facility] [address] RAD, CHEST, 2 [id number] 03:39:00 in network no referral neededReason for exam:->chfFINAL REPORT EXAMINATION: 2 view chest CLINICAL INDICATION: [...] clinical correlation regarding mild CHF. Signed: [facility] Verified Date/Time: 09/12/2018 03:39:05 Reading Location: [address] Reading Room - GLUCOSE [id number] 21:46:00* Test Item Value Reference Range Comments POC-GLUCOSE METER (BEAKER) (test bqnt=9575) 282 mg/dL 70-110 TESTED AT [facility] [address] [facility] [address] POCT-GLUCOSE [id number] 18:15:00* Test Item Value Reference Range Comments POC-GLUCOSE METER (BEAKER) (test ozua=6727) 317 mg/dL 70-110 TESTED AT [facility] [address] [facility] [address] POCT-GLUCOSE [id number] 08:40:00* Test Item Value Reference Range Comments POC-GLUCOSE METER (BEAKER) (test swcp=8452) 229 mg/dL 70-110 TESTED AT [facility] [address] [facility] [address] CREATINE KINASE (CK)2018-09-11 08:36:00* Test Item Value Reference Range Comments CREATINE KINASE TOTAL (BEAKER) (test gqjz=145) 263 U/L 29-200 BASIC METABOLIC [id number] 07:15:00* Test Item Value Reference Range Comments SODIUM (BEAKER) (test xsph=667) 139 meq/L 136-145 POTASSIUM (BEAKER) (test qusd=466) 4.0 meq/L 3.5-5.1 Specimen slightly hemolyzed CHLORIDE (BEAKER) (test upeb=239) 105 meq/L 98-107 CO2 (BEAKER) (test jhcd=304) 27 meq/L 22-29 BLOOD UREA NITROGEN (BEAKER) (test dqhs=688) 21 mg/dL 7-21 CREATININE (BEAKER) (test gezy=627) 1.31 mg/dL 0.57-1.25 Specimen slightly hemolyzed GLUCOSE RANDOM (BEAKER) (test koza=966) 250 mg/dL 70-105 CALCIUM (BEAKER) (test xzmv=640) 8.3 mg/dL 8.4-10.2 EGFR (BEAKER) (test oqds=1617) 57 mL/min/1.73 sq m ESTIMATED GFR IS NOT ACCURATE CREATININE CLEARANCE IN PREDICTING GLOMERULAR FILTRATION RATE. ESTIMATED GFR IS NOT APPLICABLE FOR DIALYSIS PATIENTS. TROPONIN [id number] 07:12:00* Test Item Value Reference Range Comments TROPONIN I (BEAKER) (test ncat=754) 0.03 ng/mL 0.00-0.03 Troponin I (TnI) levels must be interpreted in the context of the presenting sym ptoms and the clinical findings. Elevated TnI levels indicate myocardial damage, but are not specific for ischemic heart disease. Elevated TnI levels are seen in patients with other cardiac conditions (including myocarditis and congestive h eart failure), and slight TnI elevations occur in patients with other conditions , including sepsis, renal failure, acidosis, acute neurological disease, and per sistent tachyarrhythmia.CBC W/PLT COUNT & AUTO [id number] 06:56:00* Test Item Value Reference Range Comments WHITE BLOOD CELL COUNT (BEAKER) (test htrn=058) 7.2 K/ L 3.5-10.5 RED BLOOD CELL COUNT (BEAKER) (test vmzo=310) 4.47 M/ L 4.63-6.08 HEMOGLOBIN (BEAKER) (test okyb=934) 13.4 GM/DL 13.7-17.5 HEMATOCRIT (BEAKER) (test uccu=262) 41.2 % 40.1-51.0 MEAN CORPUSCULAR VOLUME (BEAKER) (test ykds=100) 92.2 fL 79.0-92.2 MEAN CORPUSCULAR HEMOGLOBIN (BEAKER) (test nxda=141) 30.0 pg 25.7-32.2 MEAN CORPUSCULAR HEMOGLOBIN CONC (BEAKER) (test mrto=873) 32.5 GM/DL 32.3-36.5 RED CELL DISTRIBUTION WIDTH (BEAKER) (test tydj=897) 13.3 % 11.6-14.4 PLATELET COUNT (BEAKER) (test xgpu=116) 186 K/CU MM 150-450 MEAN PLATELET VOLUME (BEAKER) (test sgwi=896) 10.6 fL 9.4-12.4 NUCLEATED RED BLOOD CELLS (BEAKER) (test cvbu=903) 0 /100 WBC 0-0 NEUTROPHILS RELATIVE PERCENT (BEAKER) (test ovkm=780) 70 % LYMPHOCYTES RELATIVE PERCENT (BEAKER) (test abdg=252) 17 % MONOCYTES RELATIVE PERCENT (BEAKER) (test izxy=335) 10 % EOSINOPHILS RELATIVE PERCENT (BEAKER) (test xiir=216) 3 % BASOPHILS RELATIVE PERCENT (BEAKER) (test murz=905) 0 % NEUTROPHILS ABSOLUTE COUNT (BEAKER) (test zfxr=040) 5.05 K/ L 1.78-5.38 LYMPHOCYTES ABSOLUTE COUNT (BEAKER) (test zpfp=839) 1.21 K/ L 1.32-3.57 MONOCYTES ABSOLUTE COUNT (BEAKER) (test oyal=489) 0.70 K/ L 0.30-0.82 EOSINOPHILS ABSOLUTE COUNT (BEAKER) (test rhbk=915) 0.22 K/ L 0.04-0.54 BASOPHILS ABSOLUTE COUNT (BEAKER) (test qwbd=719) 0.03 K/ L 0.01-0.08 IMMATURE GRANULOCYTES-RELATIVE PERCENT (BEAKER) (test qcby=0486) 0 % 0-1 URINALYSIS W/ [id number] 00:25:00* Test Item Value Reference Range Comments COLOR (BEAKER) (test yndb=081) Light Yellow CLARITY (BEAKER) (test joik=490) Clear SPECIFIC GRAVITY UA (BEAKER) (test ique=052) 1.020 1.001-1.035 PH UA (BEAKER) (test ekvl=249) 6.0 5.0-8.0 PROTEIN UA (BEAKER) (test otga=300) 10 mg/dL Negative GLUCOSE UA (BEAKER) (test zpjv=713) >1000 mg/dL Negative KETONES UA (BEAKER) (test gjod=692) Negative Negative BILIRUBIN UA (BEAKER) (test stae=309) Negative Negative BLOOD UA (BEAKER) (test wiia=451) Negative Negative NITRITE UA (BEAKER) (test wxdz=551) Negative Negative LEUKOCYTE ESTERASE UA (BEAKER) (test hgbk=319) Negative Negative UROBILINOGEN UA (BEAKER) (test cixw=406) 0.2 mg/dL 0.2-1.0 RBC UA (BEAKER) (test jnyx=542) 0 /HPF WBC UA (BEAKER) (test lxzo=206) 0 /HPF SQUAMOUS EPITHELIAL (BEAKER) (test ysrk=097) < /HPF SOURCE(BEAKER) (test gyln=0894) CREATINE KINASE (CK)2018-09-11 00:22:00* Test Item Value Reference Range Comments CREATINE KINASE TOTAL (BEAKER) (test ysnu=956) 417 U/L 29-200 TSH/FREE T4 IF [id number] 23:48:00* Test Item Value Reference Range Comments THYROID STIMULATING HORMONE (BEAKER) (test ozie=651) 0.92 uIU/mL 0.35-4.94 BASIC METABOLIC [id number] 23:39:00* Test Item Value Reference Range Comments SODIUM (BEAKER) (test ruyh=363) 136 meq/L 136-145 POTASSIUM (BEAKER) (test lubb=662) 4.1 meq/L 3.5-5.1 CHLORIDE (BEAKER) (test omrp=964) 103 meq/L 98-107 CO2 (BEAKER) (test sygk=779) 24 meq/L 22-29 BLOOD UREA NITROGEN (BEAKER) (test yylk=524) 25 mg/dL 7-21 CREATININE (BEAKER) (test kwkr=246) 1.61 mg/dL 0.57-1.25 GLUCOSE RANDOM (BEAKER) (test bxqb=884) 406 mg/dL 70-105 CALCIUM (BEAKER) (test xijq=985) 8.8 mg/dL 8.4-10.2 EGFR (BEAKER) (test jrlz=1278) 45 mL/min/1.73 sq m ESTIMATED GFR IS NOT ACCURATE CREATININE CLEARANCE IN PREDICTING GLOMERULAR FILTRATION RATE. ESTIMATED GFR IS NOT APPLICABLE FOR DIALYSIS PATIENTS. TROPONIN [id number] 23:34:00* Test Item Value Reference Range Comments TROPONIN I (BEAKER) (test mmdu=133) 0.02 ng/mL 0.00-0.03 Troponin I (TnI) levels must be interpreted in the context of the presenting sym ptoms and the clinical findings. Elevated TnI levels indicate myocardial damage, but are not specific for ischemic heart disease. Elevated TnI levels are seen in patients with other cardiac conditions (including myocarditis and congestive h eart failure), and slight TnI elevations occur in patients with other conditions , including sepsis, renal failure, acidosis, acute neurological disease, and per sistent tachyarrhythmia.POCT-GLUCOSE [id number] 23:29:00* Test Item Value Reference Range Comments POC-GLUCOSE METER (BEAKER) (test jaee=8209) 383 mg/dL 70-110 Notified BRENDON JETT/TESTED AT [facility] [address] [place] [address] CBC W/PLT COUNT & AUTO [id number] 23:05:00* Test Item Value Reference Range Comments WHITE BLOOD CELL COUNT (BEAKER) (test yhof=511) 9.2 K/ L 3.5-10.5 RED BLOOD CELL COUNT (BEAKER) (test cbph=188) 4.92 M/ L 4.63-6.08 HEMOGLOBIN (BEAKER) (test puvg=647) 14.8 GM/DL 13.7-17.5 HEMATOCRIT (BEAKER) (test yccj=048) 43.2 % 40.1-51.0 MEAN CORPUSCULAR VOLUME (BEAKER) (test tkki=083) 87.8 fL 79.0-92.2 MEAN CORPUSCULAR HEMOGLOBIN (BEAKER) (test bmie=193) 30.1 pg 25.7-32.2 MEAN CORPUSCULAR HEMOGLOBIN CONC (BEAKER) (test gekj=565) 34.3 GM/DL 32.3-36.5 RED CELL DISTRIBUTION WIDTH (BEAKER) (test tcke=764) 13.1 % 11.6-14.4 PLATELET COUNT (BEAKER) (test dhcr=669) 200 K/CU MM 150-450 MEAN PLATELET VOLUME (BEAKER) (test ybgc=135) 10.0 fL 9.4-12.4 NUCLEATED RED BLOOD CELLS (BEAKER) (test whvc=317) 0 /100 WBC 0-0 NEUTROPHILS RELATIVE PERCENT (BEAKER) (test nzkw=270) 74 % LYMPHOCYTES RELATIVE PERCENT (BEAKER) (test dykw=846) 15 % MONOCYTES RELATIVE PERCENT (BEAKER) (test ijhc=702) 8 % EOSINOPHILS RELATIVE PERCENT (BEAKER) (test izaf=119) 3 % BASOPHILS RELATIVE PERCENT (BEAKER) (test auol=503) 0 % NEUTROPHILS ABSOLUTE COUNT (BEAKER) (test nzgo=140) 6.76 K/ L 1.78-5.38 LYMPHOCYTES ABSOLUTE COUNT (BEAKER) (test jdsr=726) 1.34 K/ L 1.32-3.57 MONOCYTES ABSOLUTE COUNT (BEAKER) (test nwbb=185) 0.77 K/ L 0.30-0.82 EOSINOPHILS ABSOLUTE COUNT (BEAKER) (test zlom=863) 0.26 K/ L 0.04-0.54 BASOPHILS ABSOLUTE COUNT (BEAKER) (test cbyx=768) 0.03 K/ L 0.01-0.08 IMMATURE GRANULOCYTES-RELATIVE PERCENT (BEAKER) (test jedt=7614) 0 % 0-1 BASIC METABOLIC [id number] 12:02:00* Test Item Value Reference Range Comments SODIUM (BEAKER) (test eprl=002) 137 meq/L 136-145 POTASSIUM (BEAKER) (test wwwl=568) 4.0 meq/L 3.5-5.1 CHLORIDE (BEAKER) (test sxfz=011) 97 meq/L 98-107 CO2 (BEAKER) (test rgpb=234) 29 meq/L 22-29 BLOOD UREA NITROGEN (BEAKER) (test svrw=639) 31 mg/dL 7-21 CREATININE (BEAKER) (test pkvh=025) 1.85 mg/dL 0.57-1.25 GLUCOSE RANDOM (BEAKER) (test khon=226) 343 mg/dL 70-105 CALCIUM (BEAKER) (test qqwr=842) 8.9 mg/dL 8.4-10.2 EGFR (BEAKER) (test mkwd=0375) 38 mL/min/1.73 sq m ESTIMATED GFR IS NOT ACCURATE CREATININE CLEARANCE IN PREDICTING GLOMERULAR FILTRATION RATE. ESTIMATED GFR IS NOT APPLICABLE FOR DIALYSIS PATIENTS. B-TYPE NATRIURETIC FACTOR (BNP)2018-09-10 11:50:00* Test Item Value Reference Range Comments B-TYPE NATRIURETIC PEPTIDE (BEAKER) (test zjfp=222) 252 pg/mL 0-100 CBC W/PLT COUNT & AUTO [id number] 11:30:00* Test Item Value Reference Range Comments WHITE BLOOD CELL COUNT (BEAKER) (test yirs=687) 9.0 K/ L 3.5-10.5 RED BLOOD CELL COUNT (BEAKER) (test bmes=818) 4.85 M/ L 4.63-6.08 HEMOGLOBIN (BEAKER) (test qrvh=908) 14.6 GM/DL 13.7-17.5 HEMATOCRIT (BEAKER) (test jmfj=077) 43.4 % 40.1-51.0 MEAN CORPUSCULAR VOLUME (BEAKER) (test htst=196) 89.5 fL 79.0-92.2 MEAN CORPUSCULAR HEMOGLOBIN (BEAKER) (test khbo=026) 30.1 pg 25.7-32.2 MEAN CORPUSCULAR HEMOGLOBIN CONC (BEAKER) (test gpsj=210) 33.6 GM/DL 32.3-36.5 RED CELL DISTRIBUTION WIDTH (BEAKER) (test xkep=268) 13.2 % 11.6-14.4 PLATELET COUNT (BEAKER) (test rdta=613) 212 K/CU MM 150-450 MEAN PLATELET VOLUME (BEAKER) (test nlwg=985) 10.0 fL 9.4-12.4 NUCLEATED RED BLOOD CELLS (BEAKER) (test fkxm=000) 0 /100 WBC 0-0 NEUTROPHILS RELATIVE PERCENT (BEAKER) (test cbkq=671) 76 % LYMPHOCYTES RELATIVE PERCENT (BEAKER) (test fuuf=206) 12 % MONOCYTES RELATIVE PERCENT (BEAKER) (test txev=001) 8 % EOSINOPHILS RELATIVE PERCENT (BEAKER) (test fmac=392) 3 % BASOPHILS RELATIVE PERCENT (BEAKER) (test upyf=043) 0 % NEUTROPHILS ABSOLUTE COUNT (BEAKER) (test qvff=679) 6.76 K/ L 1.78-5.38 LYMPHOCYTES ABSOLUTE COUNT (BEAKER) (test edlx=028) 1.11 K/ L 1.32-3.57 MONOCYTES ABSOLUTE COUNT (BEAKER) (test miww=354) 0.75 K/ L 0.30-0.82 EOSINOPHILS ABSOLUTE COUNT (BEAKER) (test cenk=982) 0.26 K/ L 0.04-0.54 BASOPHILS ABSOLUTE COUNT (BEAKER) (test nxlc=208) 0.02 K/ L 0.01-0.08 IMMATURE GRANULOCYTES-RELATIVE PERCENT (BEAKER) (test gokw=0236) 1 % 0-1 HEMOGLOBIN [id number] 12:15:00* Test Item Value Reference Range Comments HEMOGLOBIN A1C (BEAKER) (test xbbm=215) 8.1 % 4.3-6.1 B-TYPE NATRIURETIC FACTOR (BNP)2018-07-30 12:06:00* Test Item Value Reference Range Comments B-TYPE NATRIURETIC PEPTIDE (BEAKER) (test slqu=397) 497 pg/mL 0-100 BASIC METABOLIC [id number] 11:58:00* Test Item Value Reference Range Comments SODIUM (BEAKER) (test vjrc=603) 140 meq/L 136-145 POTASSIUM (BEAKER) (test dxek=063) 5.1 meq/L 3.5-5.1 CHLORIDE (BEAKER) (test wicy=487) 97 meq/L 98-107 CO2 (BEAKER) (test scvw=665) 33 meq/L 22-29 BLOOD UREA NITROGEN (BEAKER) (test idkr=761) 33 mg/dL 7-21 CREATININE (BEAKER) (test cilo=147) 1.72 mg/dL 0.57-1.25 GLUCOSE RANDOM (BEAKER) (test sfyt=640) 284 mg/dL 70-105 CALCIUM (BEAKER) (test ufkm=119) 9.9 mg/dL 8.4-10.2 EGFR (BEAKER) (test hjno=4743) 42 mL/min/1.73 sq m ESTIMATED GFR IS NOT ACCURATE CREATININE CLEARANCE IN PREDICTING GLOMERULAR FILTRATION RATE. ESTIMATED GFR IS NOT APPLICABLE FOR DIALYSIS PATIENTS. CBC W/PLT COUNT & AUTO [id number] 11:45:00* Test Item Value Reference Range Comments WHITE BLOOD CELL COUNT (BEAKER) (test uyox=496) 9.3 K/ L 3.5-10.5 RED BLOOD CELL COUNT (BEAKER) (test lojn=052) 5.31 M/ L 4.63-6.08 HEMOGLOBIN (BEAKER) (test okir=920) 15.7 GM/DL 13.7-17.5 HEMATOCRIT (BEAKER) (test fiax=711) 47.6 % 40.1-51.0 MEAN CORPUSCULAR VOLUME (BEAKER) (test ouyo=313) 89.6 fL 79.0-92.2 MEAN CORPUSCULAR HEMOGLOBIN (BEAKER) (test viyl=862) 29.6 pg 25.7-32.2 MEAN CORPUSCULAR HEMOGLOBIN CONC (BEAKER) (test womr=191) 33.0 GM/DL 32.3-36.5 RED CELL DISTRIBUTION WIDTH (BEAKER) (test aeja=605) 13.7 % 11.6-14.4 PLATELET COUNT (BEAKER) (test xdqo=839) 177 K/CU MM 150-450 MEAN PLATELET VOLUME (BEAKER) (test hgfa=235) 9.9 fL 9.4-12.4 NUCLEATED RED BLOOD CELLS (BEAKER) (test didu=231) 0 /100 WBC 0-0 NEUTROPHILS RELATIVE PERCENT (BEAKER) (test macg=786) 70 % LYMPHOCYTES RELATIVE PERCENT (BEAKER) (test wwoe=573) 17 % MONOCYTES RELATIVE PERCENT (BEAKER) (test mxqs=736) 11 % EOSINOPHILS RELATIVE PERCENT (BEAKER) (test xihs=793) 3 % BASOPHILS RELATIVE PERCENT (BEAKER) (test nndt=543) 0 % NEUTROPHILS ABSOLUTE COUNT (BEAKER) (test khmu=545) 6.46 K/ L 1.78-5.38 LYMPHOCYTES ABSOLUTE COUNT (BEAKER) (test vusk=308) 1.54 K/ L 1.32-3.57 MONOCYTES ABSOLUTE COUNT (BEAKER) (test rmjg=165) 1.00 K/ L 0.30-0.82 EOSINOPHILS ABSOLUTE COUNT (BEAKER) (test ouht=403) 0.24 K/ L 0.04-0.54 BASOPHILS ABSOLUTE COUNT (BEAKER) (test fgtl=089) 0.04 K/ L 0.01-0.08 IMMATURE GRANULOCYTES-RELATIVE PERCENT (BEAKER) (test hmur=1466) 0 % 0-1 B-TYPE NATRIURETIC FACTOR (BNP)2018-06-18 12:24:00* Test Item Value Reference Range Comments B-TYPE NATRIURETIC PEPTIDE (BEAKER) (test jqgf=181) 516 pg/mL 0-100 BASIC METABOLIC [id number] 12:18:00* Test Item Value Reference Range Comments SODIUM (BEAKER) (test knwi=776) 140 meq/L 136-145 POTASSIUM (BEAKER) (test onch=718) 3.4 meq/L 3.5-5.1 Specimen slightly hemolyzed CHLORIDE (BEAKER) (test xkmi=637) 96 meq/L 98-107 CO2 (BEAKER) (test yyjh=046) 33 meq/L 22-29 BLOOD UREA NITROGEN (BEAKER) (test orpn=527) 28 mg/dL 7-21 CREATININE (BEAKER) (test lvlh=300) 1.62 mg/dL 0.57-1.25 Specimen slightly hemolyzed GLUCOSE RANDOM (BEAKER) (test xaaw=187) 265 mg/dL 70-105 CALCIUM (BEAKER) (test kpvs=282) 9.7 mg/dL 8.4-10.2 EGFR (BEAKER) (test pjsy=9798) 45 mL/min/1.73 sq m ESTIMATED GFR IS NOT ACCURATE CREATININE CLEARANCE IN PREDICTING GLOMERULAR FILTRATION RATE. ESTIMATED GFR IS NOT APPLICABLE FOR DIALYSIS PATIENTS. LIPID [id number] 12:18:00* Test Item Value Reference Range Comments TRIGLYCERIDES (BEAKER) (test ptkr=950) 307 mg/dL Specimen slightly hemolyzed CHOLESTEROL (BEAKER) (test sjgo=871) 155 mg/dL Specimen slightly hemolyzed HDL CHOLESTEROL (BEAKER) (test sfio=352) 31 mg/dL LDL CHOLESTEROL CALCULATED (BEAKER) (test kkbn=979) 63 mg/dL Triglyceride Reference Range: Low Risk <150 Borderline 150-199 High Risk 200-499 Very High Risk >=500Cholesterol Reference Range: Low Risk <200 Borderline 200-239 High Risk >240HDL Cholesterol Reference Range: Low Risk >=60 High Risk <40LDL Cholesterol Reference Range: Optimal <100 Near Optimal 100-129 Borderline 130-159 High 160-189 Very High >=190 HEPATIC FUNCTION [id number] 12:18:00* Test Item Value Reference Range Comments TOTAL PROTEIN (BEAKER) (test clrw=526) 7.4 gm/dL 6.0-8.3 Specimen slightly hemolyzed ALBUMIN (BEAKER) (test fbgz=2079) 4.1 g/dL 3.5-5.0 Specimen slightly hemolyzed BILIRUBIN TOTAL (BEAKER) (test idhw=143) 0.4 mg/dL 0.2-1.2 Specimen slightly hemolyzed BILIRUBIN DIRECT (BEAKER) (test sekx=178) 0.1 mg/dL 0.1-0.5 Specimen slightly hemolyzed ALKALINE PHOSPHATASE (BEAKER) (test vqbh=328) 135 U/L 40-150 AST (SGOT) (BEAKER) (test errp=984) 27 U/L 5-34 Specimen slightly hemolyzed ALT (SGPT) (BEAKER) (test dgfo=935) 25 U/L 6-55 Specimen slightly hemolyzed CBC W/PLT COUNT & AUTO [id number] 11:56:00* Test Item Value Reference Range Comments WHITE BLOOD CELL COUNT (BEAKER) (test kkdu=845) 6.5 K/ L 3.5-10.5 RED BLOOD CELL COUNT (BEAKER) (test jwfo=059) 5.42 M/ L 4.63-6.08 HEMOGLOBIN (BEAKER) (test ksbx=455) 15.2 GM/DL 13.7-17.5 HEMATOCRIT (BEAKER) (test ynzr=965) 47.0 % 40.1-51.0 MEAN CORPUSCULAR VOLUME (BEAKER) (test mdbo=698) 86.7 fL 79.0-92.2 MEAN CORPUSCULAR HEMOGLOBIN (BEAKER) (test nzbl=500) 28.0 pg 25.7-32.2 MEAN CORPUSCULAR HEMOGLOBIN CONC (BEAKER) (test mltb=092) 32.3 GM/DL 32.3-36.5 RED CELL DISTRIBUTION WIDTH (BEAKER) (test jhyf=697) 13.7 % 11.6-14.4 PLATELET COUNT (BEAKER) (test piut=516) 175 K/CU MM 150-450 MEAN PLATELET VOLUME (BEAKER) (test awhx=108) 10.3 fL 9.4-12.4 NUCLEATED RED BLOOD CELLS (BEAKER) (test edhu=142) 0 /100 WBC 0-0 NEUTROPHILS RELATIVE PERCENT (BEAKER) (test rzva=642) 63 % LYMPHOCYTES RELATIVE PERCENT (BEAKER) (test bndu=663) 19 % MONOCYTES RELATIVE PERCENT (BEAKER) (test bivn=069) 12 % EOSINOPHILS RELATIVE PERCENT (BEAKER) (test djbx=991) 4 % BASOPHILS RELATIVE PERCENT (BEAKER) (test xqba=384) 1 % NEUTROPHILS ABSOLUTE COUNT (BEAKER) (test sbmj=230) 4.09 K/ L 1.78-5.38 LYMPHOCYTES ABSOLUTE COUNT (BEAKER) (test nzvi=233) 1.26 K/ L 1.32-3.57 MONOCYTES ABSOLUTE COUNT (BEAKER) (test typn=008) 0.78 K/ L 0.30-0.82 EOSINOPHILS ABSOLUTE COUNT (BEAKER) (test ewpb=603) 0.27 K/ L 0.04-0.54 BASOPHILS ABSOLUTE COUNT (BEAKER) (test wkzr=181) 0.04 K/ L 0.01-0.08 IMMATURE GRANULOCYTES-RELATIVE PERCENT (BEAKER) (test timc=3051) 1 % 0-1 B-TYPE NATRIURETIC FACTOR (BNP)2018-06-11 12:31:00* Test Item Value Reference Range Comments B-TYPE NATRIURETIC PEPTIDE (BEAKER) (test wwso=932) 192 pg/mL 0-100 BASIC METABOLIC [id number] 12:23:00* Test Item Value Reference Range Comments SODIUM (BEAKER) (test szot=984) 138 meq/L 136-145 POTASSIUM (BEAKER) (test vvpg=895) 3.6 meq/L 3.5-5.1 CHLORIDE (BEAKER) (test ivyw=198) 94 meq/L 98-107 CO2 (BEAKER) (test paix=842) 34 meq/L 22-29 BLOOD UREA NITROGEN (BEAKER) (test varz=009) 33 mg/dL 7-21 CREATININE (BEAKER) (test wtdu=279) 1.62 mg/dL 0.57-1.25 GLUCOSE RANDOM (BEAKER) (test oiet=753) 245 mg/dL 70-105 CALCIUM (BEAKER) (test fous=325) 9.5 mg/dL 8.4-10.2 EGFR (BEAKER) (test dgfm=7899) 45 mL/min/1.73 sq m ESTIMATED GFR IS NOT ACCURATE CREATININE CLEARANCE IN PREDICTING GLOMERULAR FILTRATION RATE. ESTIMATED GFR IS NOT APPLICABLE FOR DIALYSIS PATIENTS. CBC W/PLT COUNT & AUTO [id number] 12:08:00* Test Item Value Reference Range Comments WHITE BLOOD CELL COUNT (BEAKER) (test wggq=115) 6.1 K/ L 3.5-10.5 RED BLOOD CELL COUNT (BEAKER) (test zfet=897) 5.62 M/ L 4.63-6.08 HEMOGLOBIN (BEAKER) (test deic=113) 16.0 GM/DL 13.7-17.5 HEMATOCRIT (BEAKER) (test jked=475) 47.9 % 40.1-51.0 MEAN CORPUSCULAR VOLUME (BEAKER) (test tskv=982) 85.2 fL 79.0-92.2 MEAN CORPUSCULAR HEMOGLOBIN (BEAKER) (test bnec=597) 28.5 pg 25.7-32.2 MEAN CORPUSCULAR HEMOGLOBIN CONC (BEAKER) (test nrmg=167) 33.4 GM/DL 32.3-36.5 RED CELL DISTRIBUTION WIDTH (BEAKER) (test zftq=849) 13.2 % 11.6-14.4 PLATELET COUNT (BEAKER) (test qjlo=053) 178 K/CU MM 150-450 MEAN PLATELET VOLUME (BEAKER) (test hhxi=116) 10.6 fL 9.4-12.4 NUCLEATED RED BLOOD CELLS (BEAKER) (test bgfx=616) 0 /100 WBC 0-0 NEUTROPHILS RELATIVE PERCENT (BEAKER) (test yhqe=499) 72 % LYMPHOCYTES RELATIVE PERCENT (BEAKER) (test hfzh=285) 15 % MONOCYTES RELATIVE PERCENT (BEAKER) (test uhre=632) 11 % EOSINOPHILS RELATIVE PERCENT (BEAKER) (test ymkn=662) 2 % BASOPHILS RELATIVE PERCENT (BEAKER) (test qsjy=528) 0 % NEUTROPHILS ABSOLUTE COUNT (BEAKER) (test kbsz=772) 4.33 K/ L 1.78-5.38 LYMPHOCYTES ABSOLUTE COUNT (BEAKER) (test prfn=723) 0.93 K/ L 1.32-3.57 MONOCYTES ABSOLUTE COUNT (BEAKER) (test xxri=115) 0.64 K/ L 0.30-0.82 EOSINOPHILS ABSOLUTE COUNT (BEAKER) (test efct=477) 0.13 K/ L 0.04-0.54 BASOPHILS ABSOLUTE COUNT (BEAKER) (test wwgy=267) 0.02 K/ L 0.01-0.08 IMMATURE GRANULOCYTES-RELATIVE PERCENT (BEAKER) (test pzqh=8985) 0 % 0-1 B-TYPE NATRIURETIC FACTOR (BNP)2018-05-14 11:13:00* Test Item Value Reference Range Comments B-TYPE NATRIURETIC PEPTIDE (BEAKER) (test xltk=317) 660 pg/mL 0-100 BASIC METABOLIC [id number] 11:05:00* Test Item Value Reference Range Comments SODIUM (BEAKER) (test kqik=540) 141 meq/L 136-145 POTASSIUM (BEAKER) (test lche=630) 4.1 meq/L 3.5-5.1 CHLORIDE (BEAKER) (test jely=064) 100 meq/L 98-107 CO2 (BEAKER) (test qche=743) 33 meq/L 22-29 BLOOD UREA NITROGEN (BEAKER) (test acus=635) 28 mg/dL 7-21 CREATININE (BEAKER) (test mjsx=073) 1.64 mg/dL 0.57-1.25 GLUCOSE RANDOM (BEAKER) (test rlcg=052) 193 mg/dL 70-105 CALCIUM (BEAKER) (test urhp=990) 9.2 mg/dL 8.4-10.2 EGFR (BEAKER) (test ienu=6432) 44 mL/min/1.73 sq m ESTIMATED GFR IS NOT ACCURATE CREATININE CLEARANCE IN PREDICTING GLOMERULAR FILTRATION RATE. ESTIMATED GFR IS NOT APPLICABLE FOR DIALYSIS PATIENTS. CBC W/PLT COUNT & AUTO [id number] 10:47:00* Test Item Value Reference Range Comments WHITE BLOOD CELL COUNT (BEAKER) (test eznm=830) 8.4 K/ L 3.5-10.5 RED BLOOD CELL COUNT (BEAKER) (test pzvu=286) 5.32 M/ L 4.63-6.08 HEMOGLOBIN (BEAKER) (test tfyr=296) 15.2 GM/DL 13.7-17.5 HEMATOCRIT (BEAKER) (test qbtg=439) 46.2 % 40.1-51.0 MEAN CORPUSCULAR VOLUME (BEAKER) (test bgdd=202) 86.8 fL 79.0-92.2 MEAN CORPUSCULAR HEMOGLOBIN (BEAKER) (test vihz=779) 28.6 pg 25.7-32.2 MEAN CORPUSCULAR HEMOGLOBIN CONC (BEAKER) (test mesv=010) 32.9 GM/DL 32.3-36.5 RED CELL DISTRIBUTION WIDTH (BEAKER) (test giew=408) 13.0 % 11.6-14.4 PLATELET COUNT (BEAKER) (test chqe=198) 169 K/CU MM 150-450 MEAN PLATELET VOLUME (BEAKER) (test vcpe=617) 9.8 fL 9.4-12.4 NUCLEATED RED BLOOD CELLS (BEAKER) (test uree=283) 0 /100 WBC 0-0 NEUTROPHILS RELATIVE PERCENT (BEAKER) (test oqnd=873) 75 % LYMPHOCYTES RELATIVE PERCENT (BEAKER) (test qvan=829) 12 % MONOCYTES RELATIVE PERCENT (BEAKER) (test cung=254) 10 % EOSINOPHILS RELATIVE PERCENT (BEAKER) (test dufs=324) 3 % BASOPHILS RELATIVE PERCENT (BEAKER) (test abhx=403) 0 % NEUTROPHILS ABSOLUTE COUNT (BEAKER) (test uxfw=998) 6.27 K/ L 1.78-5.38 LYMPHOCYTES ABSOLUTE COUNT (BEAKER) (test ytth=668) 0.97 K/ L 1.32-3.57 MONOCYTES ABSOLUTE COUNT (BEAKER) (test bmso=788) 0.87 K/ L 0.30-0.82 EOSINOPHILS ABSOLUTE COUNT (BEAKER) (test gali=553) 0.24 K/ L 0.04-0.54 BASOPHILS ABSOLUTE COUNT (BEAKER) (test jhty=548) 0.02 K/ L 0.01-0.08 IMMATURE GRANULOCYTES-RELATIVE PERCENT (BEAKER) (test hecb=8950) 0 % 0-1 B-TYPE NATRIURETIC FACTOR (BNP)2018-04-16 11:28:00* Test Item Value Reference Range Comments B-TYPE NATRIURETIC PEPTIDE (BEAKER) (test iiav=218) 880 pg/mL 0-100 BASIC METABOLIC [id number] 11:19:00* Test Item Value Reference Range Comments SODIUM (BEAKER) (test wbdw=020) 140 meq/L 136-145 POTASSIUM (BEAKER) (test rdua=517) 3.7 meq/L 3.5-5.1 CHLORIDE (BEAKER) (test hweg=522) 100 meq/L 98-107 CO2 (BEAKER) (test ojov=136) 31 meq/L 22-29 BLOOD UREA NITROGEN (BEAKER) (test prno=581) 26 mg/dL 7-21 CREATININE (BEAKER) (test fejp=051) 2.01 mg/dL 0.57-1.25 GLUCOSE RANDOM (BEAKER) (test uxmy=648) 272 mg/dL 70-105 CALCIUM (BEAKER) (test lcop=235) 9.0 mg/dL 8.4-10.2 EGFR (BEAKER) (test zwbl=9024) 35 mL/min/1.73 sq m ESTIMATED GFR IS NOT ACCURATE CREATININE CLEARANCE IN PREDICTING GLOMERULAR FILTRATION RATE. ESTIMATED GFR IS NOT APPLICABLE FOR DIALYSIS PATIENTS. CBC W/PLT COUNT & AUTO [id number] 11:06:00* Test Item Value Reference Range Comments WHITE BLOOD CELL COUNT (BEAKER) (test pddq=955) 7.7 K/ L 3.5-10.5 RED BLOOD CELL COUNT (BEAKER) (test zqmg=402) 4.83 M/ L 4.63-6.08 HEMOGLOBIN (BEAKER) (test gcma=460) 14.2 GM/DL 13.7-17.5 HEMATOCRIT (BEAKER) (test lqsd=081) 43.0 % 40.1-51.0 MEAN CORPUSCULAR VOLUME (BEAKER) (test heuy=557) 89.0 fL 79.0-92.2 MEAN CORPUSCULAR HEMOGLOBIN (BEAKER) (test bdqq=158) 29.4 pg 25.7-32.2 MEAN CORPUSCULAR HEMOGLOBIN CONC (BEAKER) (test tuch=060) 33.0 GM/DL 32.3-36.5 RED CELL DISTRIBUTION WIDTH (BEAKER) (test hgyv=000) 12.5 % 11.6-14.4 PLATELET COUNT (BEAKER) (test jzco=220) 178 K/CU MM 150-450 MEAN PLATELET VOLUME (BEAKER) (test iitx=145) 10.4 fL 9.4-12.4 NUCLEATED RED BLOOD CELLS (BEAKER) (test nkpx=979) 0 /100 WBC 0-0 NEUTROPHILS RELATIVE PERCENT (BEAKER) (test iivw=820) 74 % LYMPHOCYTES RELATIVE PERCENT (BEAKER) (test chvy=151) 14 % MONOCYTES RELATIVE PERCENT (BEAKER) (test fwpn=496) 9 % EOSINOPHILS RELATIVE PERCENT (BEAKER) (test guhw=281) 2 % BASOPHILS RELATIVE PERCENT (BEAKER) (test oigy=414) 0 % NEUTROPHILS ABSOLUTE COUNT (BEAKER) (test sniv=086) 5.70 K/ L 1.78-5.38 LYMPHOCYTES ABSOLUTE COUNT (BEAKER) (test qfwh=107) 1.05 K/ L 1.32-3.57 MONOCYTES ABSOLUTE COUNT (BEAKER) (test hclu=684) 0.71 K/ L 0.30-0.82 EOSINOPHILS ABSOLUTE COUNT (BEAKER) (test medo=262) 0.15 K/ L 0.04-0.54 BASOPHILS ABSOLUTE COUNT (BEAKER) (test bgxd=952) 0.03 K/ L 0.01-0.08 IMMATURE GRANULOCYTES-RELATIVE PERCENT (BEAKER) (test lgmg=2561) 1 % 0-1 POCT-GLUCOSE [id number] 10:07:00* Test Item Value Reference Range Comments POC-GLUCOSE METER (BEAKER) (test mrmo=2659) 281 mg/dL 70-110 TESTED AT [address] [address] BASIC METABOLIC [id number] 06:21:00* Test Item Value Reference Range Comments SODIUM (BEAKER) (test myuu=273) 136 meq/L 136-145 POTASSIUM (BEAKER) (test kxab=788) 3.3 meq/L 3.5-5.1 CHLORIDE (BEAKER) (test tjhn=126) 94 meq/L 98-107 CO2 (BEAKER) (test zkcs=331) 31 meq/L 22-29 BLOOD UREA NITROGEN (BEAKER) (test pjvj=344) 28 mg/dL 7-21 CREATININE (BEAKER) (test gmyl=464) 1.48 mg/dL 0.57-1.25 GLUCOSE RANDOM (BEAKER) (test mfbi=073) 254 mg/dL 70-105 CALCIUM (BEAKER) (test vrbp=161) 9.4 mg/dL 8.4-10.2 EGFR (BEAKER) (test axgs=1805) 50 mL/min/1.73 sq m ESTIMATED GFR IS NOT ACCURATE CREATININE CLEARANCE IN PREDICTING GLOMERULAR FILTRATION RATE. ESTIMATED GFR IS NOT APPLICABLE FOR DIALYSIS PATIENTS. POCT-GLUCOSE [id number] 23:06:00* Test Item Value Reference Range Comments POC-GLUCOSE METER (BEAKER) (test khjb=0278) 327 mg/dL 70-110 Notified BRENDON JETT/TESTED AT [address] [address] POCT-GLUCOSE [id number] 20:02:00* Test Item Value Reference Range Comments POC-GLUCOSE METER (BEAKER) (test tewi=3386) 318 mg/dL 70-110 TESTED AT [address] [address] POCT-GLUCOSE [id number] 18:27:00* Test Item Value Reference Range Comments POC-GLUCOSE METER (BEAKER) (test hrjm=3572) 287 mg/dL 70-110 TESTED AT [place] [id number] POCT-GLUCOSE [id number] 13:29:00* Test Item Value Reference Range Comments POC-GLUCOSE METER (BEAKER) (test zueo=5050) 275 mg/dL 70-110 TESTED AT [address] [address] POCT-GLUCOSE [id number] 10:06:00* Test Item Value Reference Range Comments POC-GLUCOSE METER (BEAKER) (test bxom=1655) 226 mg/dL 70-110 TESTED AT [address] [address] POCT-GLUCOSE [id number] 07:37:00* Test Item Value Reference Range Comments POC-GLUCOSE METER (BEAKER) (test sxxh=1515) 235 mg/dL 70-110 TESTED AT [place] [id number] BASIC METABOLIC [id number] 06:34:00* Test Item Value Reference Range Comments SODIUM (BEAKER) (test dhpe=690) 135 meq/L 136-145 POTASSIUM (BEAKER) (test mfso=580) 3.1 meq/L 3.5-5.1 CHLORIDE (BEAKER) (test hrhv=325) 91 meq/L 98-107 CO2 (BEAKER) (test mpik=921) 31 meq/L 22-29 BLOOD UREA NITROGEN (BEAKER) (test ffbl=225) 30 mg/dL 7-21 CREATININE (BEAKER) (test kfjp=003) 1.57 mg/dL 0.57-1.25 GLUCOSE RANDOM (BEAKER) (test vvhv=094) 274 mg/dL 70-105 CALCIUM (BEAKER) (test arjx=897) 9.6 mg/dL 8.4-10.2 EGFR (BEAKER) (test gxog=5258) 46 mL/min/1.73 sq m ESTIMATED GFR IS NOT ACCURATE CREATININE CLEARANCE IN PREDICTING GLOMERULAR FILTRATION RATE. ESTIMATED GFR IS NOT APPLICABLE FOR DIALYSIS PATIENTS. CBC W/PLT COUNT & AUTO [id number] 05:48:00* Test Item Value Reference Range Comments WHITE BLOOD CELL COUNT (BEAKER) (test alye=063) 9.3 K/ L 3.5-10.5 RED BLOOD CELL COUNT (BEAKER) (test xtvu=603) 5.60 M/ L 4.63-6.08 HEMOGLOBIN (BEAKER) (test gdxa=044) 16.3 GM/DL 13.7-17.5 HEMATOCRIT (BEAKER) (test auog=837) 48.0 % 40.1-51.0 MEAN CORPUSCULAR VOLUME (BEAKER) (test ahes=584) 85.7 fL 79.0-92.2 MEAN CORPUSCULAR HEMOGLOBIN (BEAKER) (test vtpd=653) 29.1 pg 25.7-32.2 MEAN CORPUSCULAR HEMOGLOBIN CONC (BEAKER) (test shvx=006) 34.0 GM/DL 32.3-36.5 RED CELL DISTRIBUTION WIDTH (BEAKER) (test rhsn=171) 12.2 % 11.6-14.4 PLATELET COUNT (BEAKER) (test kjco=359) 193 K/CU MM 150-450 MEAN PLATELET VOLUME (BEAKER) (test quww=824) 10.2 fL 9.4-12.4 NUCLEATED RED BLOOD CELLS (BEAKER) (test mdxr=619) 0 /100 WBC 0-0 NEUTROPHILS RELATIVE PERCENT (BEAKER) (test tszl=774) 69 % LYMPHOCYTES RELATIVE PERCENT (BEAKER) (test rtgf=931) 15 % MONOCYTES RELATIVE PERCENT (BEAKER) (test aptd=337) 12 % EOSINOPHILS RELATIVE PERCENT (BEAKER) (test iyvd=947) 3 % BASOPHILS RELATIVE PERCENT (BEAKER) (test knyr=716) 1 % NEUTROPHILS ABSOLUTE COUNT (BEAKER) (test thif=101) 6.36 K/ L 1.78-5.38 LYMPHOCYTES ABSOLUTE COUNT (BEAKER) (test pdqa=509) 1.39 K/ L 1.32-3.57 MONOCYTES ABSOLUTE COUNT (BEAKER) (test ymvc=474) 1.14 K/ L 0.30-0.82 EOSINOPHILS ABSOLUTE COUNT (BEAKER) (test egor=469) 0.29 K/ L 0.04-0.54 BASOPHILS ABSOLUTE COUNT (BEAKER) (test lriw=789) 0.05 K/ L 0.01-0.08 IMMATURE GRANULOCYTES-RELATIVE PERCENT (BEAKER) (test wopt=6989) 1 % 0-1 POCT-GLUCOSE [id number] 23:42:00* Test Item Value Reference Range Comments POC-GLUCOSE METER (BEAKER) (test tuhq=7938) 258 mg/dL 70-110 TESTED AT [place] [id number] POCT-GLUCOSE [id number] 17:46:00* Test Item Value Reference Range Comments POC-GLUCOSE METER (BEAKER) (test asyt=5004) 380 mg/dL 70-110 Notified BRENDON JETT/TESTED AT [address] [address] POCT-GLUCOSE [id number] 12:04:00* Test Item Value Reference Range Comments POC-GLUCOSE METER (BEAKER) (test aepn=8542) 428 mg/dL 70-110 Notified BRENDON JETT/TESTED AT [address] [address] POCT-GLUCOSE [id number] 07:43:00* Test Item Value Reference Range Comments POC-GLUCOSE METER (BEAKER) (test lnma=3363) 264 mg/dL 70-110 TESTED AT [address] [address] BASIC METABOLIC [id number] 05:45:00* Test Item Value Reference Range Comments SODIUM (BEAKER) (test wcuf=682) 138 meq/L 136-145 POTASSIUM (BEAKER) (test yjrh=603) 3.5 meq/L 3.5-5.1 CHLORIDE (BEAKER) (test cjfk=374) 96 meq/L 98-107 CO2 (BEAKER) (test sctj=633) 31 meq/L 22-29 BLOOD UREA NITROGEN (BEAKER) (test xpdk=522) 30 mg/dL 7-21 CREATININE (BEAKER) (test wrip=137) 1.50 mg/dL 0.57-1.25 GLUCOSE RANDOM (BEAKER) (test cpps=320) 349 mg/dL 70-105 CALCIUM (BEAKER) (test izkx=458) 9.6 mg/dL 8.4-10.2 EGFR (BEAKER) (test uejv=6721) 49 mL/min/1.73 sq m ESTIMATED GFR IS NOT ACCURATE CREATININE CLEARANCE IN PREDICTING GLOMERULAR FILTRATION RATE. ESTIMATED GFR IS NOT APPLICABLE FOR DIALYSIS PATIENTS. CBC W/PLT COUNT & AUTO [id number] 05:35:00* Test Item Value Reference Range Comments WHITE BLOOD CELL COUNT (BEAKER) (test xrvs=196) 7.6 K/ L 3.5-10.5 RED BLOOD CELL COUNT (BEAKER) (test pajk=768) 5.53 M/ L 4.63-6.08 HEMOGLOBIN (BEAKER) (test xxgn=748) 15.9 GM/DL 13.7-17.5 HEMATOCRIT (BEAKER) (test jdia=974) 47.8 % 40.1-51.0 MEAN CORPUSCULAR VOLUME (BEAKER) (test mzhp=257) 86.4 fL 79.0-92.2 MEAN CORPUSCULAR HEMOGLOBIN (BEAKER) (test udgq=104) 28.8 pg 25.7-32.2 MEAN CORPUSCULAR HEMOGLOBIN CONC (BEAKER) (test nrzs=740) 33.3 GM/DL 32.3-36.5 RED CELL DISTRIBUTION WIDTH (BEAKER) (test qtml=733) 12.1 % 11.6-14.4 PLATELET COUNT (BEAKER) (test jpxr=058) 190 K/CU MM 150-450 MEAN PLATELET VOLUME (BEAKER) (test stkw=364) 10.2 fL 9.4-12.4 NUCLEATED RED BLOOD CELLS (BEAKER) (test ladu=188) 0 /100 WBC 0-0 NEUTROPHILS RELATIVE PERCENT (BEAKER) (test moga=885) 68 % LYMPHOCYTES RELATIVE PERCENT (BEAKER) (test ptcp=954) 16 % MONOCYTES RELATIVE PERCENT (BEAKER) (test jooc=722) 12 % EOSINOPHILS RELATIVE PERCENT (BEAKER) (test bdsx=667) 3 % BASOPHILS RELATIVE PERCENT (BEAKER) (test sdwa=114) 0 % NEUTROPHILS ABSOLUTE COUNT (BEAKER) (test hprm=178) 5.23 K/ L 1.78-5.38 LYMPHOCYTES ABSOLUTE COUNT (BEAKER) (test pbdn=158) 1.24 K/ L 1.32-3.57 MONOCYTES ABSOLUTE COUNT (BEAKER) (test qtav=828) 0.89 K/ L 0.30-0.82 EOSINOPHILS ABSOLUTE COUNT (BEAKER) (test ucwo=115) 0.22 K/ L 0.04-0.54 BASOPHILS ABSOLUTE COUNT (BEAKER) (test lfjo=119) 0.03 K/ L 0.01-0.08 IMMATURE GRANULOCYTES-RELATIVE PERCENT (BEAKER) (test uzgf=3504) 0 % 0-1 POCT-GLUCOSE [id number] 22:05:00* Test Item Value Reference Range Comments POC-GLUCOSE METER (BEAKER) (test nhlj=9017) 395 mg/dL 70-110 Will Repeat Test/TESTED AT [place] [id number] POCT-GLUCOSE [id number] 20:57:00* Test Item Value Reference Range Comments POC-GLUCOSE METER (BEAKER) (test ujfl=7009) 462 mg/dL 70-110 Will Repeat Test/TESTED AT [address] [address] POCT-GLUCOSE [id number] 18:03:00* Test Item Value Reference Range Comments POC-GLUCOSE METER (BEAKER) (test rdjw=7648) 289 mg/dL 70-110 TESTED AT [address] [address] POCT-GLUCOSE [id number] 13:29:00* Test Item Value Reference Range Comments POC-GLUCOSE METER (BEAKER) (test zmsi=2581) 252 mg/dL 70-110 TESTED AT [address] [address] HEMOGLOBIN [id number] 09:31:00* Test Item Value Reference Range Comments HEMOGLOBIN A1C (BEAKER) (test efry=065) 7.8 % 4.3-6.1 POCT-GLUCOSE [id number] 09:26:00* Test Item Value Reference Range Comments POC-GLUCOSE METER (BEAKER) (test nlzg=4510) 238 mg/dL 70-110 TESTED AT [address] [address] BASIC METABOLIC [id number] 04:54:00* Test Item Value Reference Range Comments SODIUM (BEAKER) (test tfmb=747) 140 meq/L 136-145 POTASSIUM (BEAKER) (test ywxt=489) 3.7 meq/L 3.5-5.1 CHLORIDE (BEAKER) (test vzvc=987) 96 meq/L 98-107 CO2 (BEAKER) (test fgys=285) 33 meq/L 22-29 BLOOD UREA NITROGEN (BEAKER) (test hwep=268) 28 mg/dL 7-21 CREATININE (BEAKER) (test pqnf=336) 1.62 mg/dL 0.57-1.25 GLUCOSE RANDOM (BEAKER) (test mpsu=335) 254 mg/dL 70-105 CALCIUM (BEAKER) (test xkqn=256) 9.8 mg/dL 8.4-10.2 EGFR (BEAKER) (test xyie=8190) 45 mL/min/1.73 sq m ESTIMATED GFR IS NOT ACCURATE CREATININE CLEARANCE IN PREDICTING GLOMERULAR FILTRATION RATE. ESTIMATED GFR IS NOT APPLICABLE FOR DIALYSIS PATIENTS. CBC W/PLT COUNT & AUTO [id number] 04:38:00* Test Item Value Reference Range Comments WHITE BLOOD CELL COUNT (BEAKER) (test ojtf=157) 8.8 K/ L 3.5-10.5 RED BLOOD CELL COUNT (BEAKER) (test ckfk=696) 5.92 M/ L 4.63-6.08 HEMOGLOBIN (BEAKER) (test ysbf=746) 17.1 GM/DL 13.7-17.5 HEMATOCRIT (BEAKER) (test mnlh=304) 52.7 % 40.1-51.0 MEAN CORPUSCULAR VOLUME (BEAKER) (test xoun=357) 89.0 fL 79.0-92.2 MEAN CORPUSCULAR HEMOGLOBIN (BEAKER) (test ziue=778) 28.9 pg 25.7-32.2 MEAN CORPUSCULAR HEMOGLOBIN CONC (BEAKER) (test zjqb=480) 32.4 GM/DL 32.3-36.5 RED CELL DISTRIBUTION WIDTH (BEAKER) (test fqsr=308) 12.2 % 11.6-14.4 PLATELET COUNT (BEAKER) (test xwwj=487) 195 K/CU MM 150-450 MEAN PLATELET VOLUME (BEAKER) (test uzcr=744) 10.0 fL 9.4-12.4 NUCLEATED RED BLOOD CELLS (BEAKER) (test vmcl=019) 0 /100 WBC 0-0 NEUTROPHILS RELATIVE PERCENT (BEAKER) (test aohu=763) 70 % LYMPHOCYTES RELATIVE PERCENT (BEAKER) (test sdif=187) 16 % MONOCYTES RELATIVE PERCENT (BEAKER) (test logi=572) 11 % EOSINOPHILS RELATIVE PERCENT (BEAKER) (test eoss=501) 3 % BASOPHILS RELATIVE PERCENT (BEAKER) (test wfve=576) 1 % NEUTROPHILS ABSOLUTE COUNT (BEAKER) (test mkog=639) 6.13 K/ L 1.78-5.38 LYMPHOCYTES ABSOLUTE COUNT (BEAKER) (test yhzn=552) 1.43 K/ L 1.32-3.57 MONOCYTES ABSOLUTE COUNT (BEAKER) (test ubja=917) 0.94 K/ L 0.30-0.82 EOSINOPHILS ABSOLUTE COUNT (BEAKER) (test jbdg=602) 0.23 K/ L 0.04-0.54 BASOPHILS ABSOLUTE COUNT (BEAKER) (test joqx=101) 0.04 K/ L 0.01-0.08 IMMATURE GRANULOCYTES-RELATIVE PERCENT (BEAKER) (test baxb=7784) 0 % 0-1 POCT-GLUCOSE [id number] 23:06:00* Test Item Value Reference Range Comments POC-GLUCOSE METER (BEAKER) (test eods=8014) 365 mg/dL 70-110 TESTED AT [facility] [address] [facility] [address] RAD, CHEST, 1 VIEW, NON [id number] 20:20:00Reason for exam:->sobShould this be performed at the bedside?->YesFINAL REPORT Chest, 1 view. History: Shortness of breath. Comparison: 02/26/2018. Discussion: Left- sided AICD with single transvenous lead identified in stable position. The trachea is midline. The lungs are symmetrically expanded without evidence for focal consolidation, pneumothorax, or significant pleural effusion. The cardiomediastinal silhouette is stable in appearance. No acute osseous abnormalities identified. IMPRESSION: No acute cardiopulmonary process identified. Signed: Colby Yen MDReport Verified Date/Time: 04/02/2018 20:20:57 Reading Location: [facility] [id number] Consult Reading Room B-TYPE NATRIURETIC FACTOR (BNP)2018-04-02 16:54:00* Test Item Value Reference Range Comments B-TYPE NATRIURETIC PEPTIDE (BEAKER) (test ozbc=829) 521 pg/mL 0-100 COMPREHENSIVE METABOLIC [id number] 16:47:00* Test Item Value Reference Range Comments TOTAL PROTEIN (BEAKER) (test ioij=030) 7.6 gm/dL 6.0-8.3 Specimen slightly hemolyzed ALBUMIN (BEAKER) (test kaeh=2659) 4.2 g/dL 3.5-5.0 Specimen slightly hemolyzed ALKALINE PHOSPHATASE (BEAKER) (test qhkb=315) 123 U/L 40-150 BILIRUBIN TOTAL (BEAKER) (test stda=882) 0.5 mg/dL 0.2-1.2 Specimen slightly hemolyzed SODIUM (BEAKER) (test mfen=889) 138 meq/L 136-145 POTASSIUM (BEAKER) (test ktfa=201) 3.8 meq/L 3.5-5.1 Specimen slightly hemolyzed CHLORIDE (BEAKER) (test ixla=615) 99 meq/L 98-107 CO2 (BEAKER) (test aqgo=841) 27 meq/L 22-29 BLOOD UREA NITROGEN (BEAKER) (test vsmg=793) 30 mg/dL 7-21 CREATININE (BEAKER) (test hmws=750) 1.42 mg/dL 0.57-1.25 Specimen slightly hemolyzed GLUCOSE RANDOM (BEAKER) (test qkxc=183) 259 mg/dL 70-105 CALCIUM (BEAKER) (test uada=630) 9.1 mg/dL 8.4-10.2 AST (SGOT) (BEAKER) (test kiev=929) 25 U/L 5-34 Specimen slightly hemolyzed ALT (SGPT) (BEAKER) (test uwnr=415) 19 U/L 6-55 Specimen slightly hemolyzed EGFR (BEAKER) (test mdqu=8391) 52 mL/min/1.73 sq m ESTIMATED GFR IS NOT ACCURATE CREATININE CLEARANCE IN PREDICTING GLOMERULAR FILTRATION RATE. ESTIMATED GFR IS NOT APPLICABLE FOR DIALYSIS PATIENTS. CBC W/PLT COUNT & AUTO [id number] 16:25:00* Test Item Value Reference Range Comments WHITE BLOOD CELL COUNT (BEAKER) (test emja=789) 7.7 K/ L 3.5-10.5 RED BLOOD CELL COUNT (BEAKER) (test rxun=260) 5.17 M/ L 4.63-6.08 HEMOGLOBIN (BEAKER) (test ihql=924) 15.3 GM/DL 13.7-17.5 HEMATOCRIT (BEAKER) (test frka=666) 45.2 % 40.1-51.0 MEAN CORPUSCULAR VOLUME (BEAKER) (test thuv=721) 87.4 fL 79.0-92.2 MEAN CORPUSCULAR HEMOGLOBIN (BEAKER) (test xjdu=915) 29.6 pg 25.7-32.2 MEAN CORPUSCULAR HEMOGLOBIN CONC (BEAKER) (test dksu=144) 33.8 GM/DL 32.3-36.5 RED CELL DISTRIBUTION WIDTH (BEAKER) (test rkra=292) 12.4 % 11.6-14.4 PLATELET COUNT (BEAKER) (test zhzk=708) 175 K/CU MM 150-450 MEAN PLATELET VOLUME (BEAKER) (test iqec=527) 10.4 fL 9.4-12.4 NUCLEATED RED BLOOD CELLS (BEAKER) (test nykf=877) 0 /100 WBC 0-0 NEUTROPHILS RELATIVE PERCENT (BEAKER) (test uwxl=601) 71 % LYMPHOCYTES RELATIVE PERCENT (BEAKER) (test mwnx=584) 14 % MONOCYTES RELATIVE PERCENT (BEAKER) (test lskw=832) 11 % EOSINOPHILS RELATIVE PERCENT (BEAKER) (test oxbl=320) 4 % BASOPHILS RELATIVE PERCENT (BEAKER) (test ibyf=100) 0 % NEUTROPHILS ABSOLUTE COUNT (BEAKER) (test dxkj=348) 5.48 K/ L 1.78-5.38 LYMPHOCYTES ABSOLUTE COUNT (BEAKER) (test uhbi=800) 1.10 K/ L 1.32-3.57 MONOCYTES ABSOLUTE COUNT (BEAKER) (test ndpl=076) 0.83 K/ L 0.30-0.82 EOSINOPHILS ABSOLUTE COUNT (BEAKER) (test uhsl=750) 0.27 K/ L 0.04-0.54 BASOPHILS ABSOLUTE COUNT (BEAKER) (test xuhi=453) 0.03 K/ L 0.01-0.08 IMMATURE GRANULOCYTES-RELATIVE PERCENT (BEAKER) (test xiak=1446) 0 % 0-1 POCT-GLUCOSE [id number] 15:17:00* Test Item Value Reference Range Comments POC-GLUCOSE METER (BEAKER) (test qavj=9345) 273 mg/dL 70-110 TESTED AT [facility] [address] [facility] [address] B-TYPE NATRIURETIC FACTOR (BNP)2018-04-02 12:05:00* Test Item Value Reference Range Comments B-TYPE NATRIURETIC PEPTIDE (BEAKER) (test janl=052) 571 pg/mL 0-100 BASIC METABOLIC [id number] 11:59:00* Test Item Value Reference Range Comments SODIUM (BEAKER) (test dgvc=860) 137 meq/L 136-145 POTASSIUM (BEAKER) (test edqc=247) 3.7 meq/L 3.5-5.1 CHLORIDE (BEAKER) (test qcub=529) 98 meq/L 98-107 CO2 (BEAKER) (test denx=346) 29 meq/L 22-29 BLOOD UREA NITROGEN (BEAKER) (test pxxe=746) 32 mg/dL 7-21 CREATININE (BEAKER) (test hmiv=389) 1.39 mg/dL 0.57-1.25 GLUCOSE RANDOM (BEAKER) (test gove=118) 256 mg/dL 70-105 CALCIUM (BEAKER) (test iopp=400) 9.0 mg/dL 8.4-10.2 EGFR (BEAKER) (test lnqg=6273) 53 mL/min/1.73 sq m ESTIMATED GFR IS NOT ACCURATE CREATININE CLEARANCE IN PREDICTING GLOMERULAR FILTRATION RATE. ESTIMATED GFR IS NOT APPLICABLE FOR DIALYSIS PATIENTS. CBC W/PLT COUNT & AUTO [id number] 11:41:00* Test Item Value Reference Range Comments WHITE BLOOD CELL COUNT (BEAKER) (test mbmz=081) 7.2 K/ L 3.5-10.5 RED BLOOD CELL COUNT (BEAKER) (test rddk=459) 5.02 M/ L 4.63-6.08 HEMOGLOBIN (BEAKER) (test ngvv=383) 15.0 GM/DL 13.7-17.5 HEMATOCRIT (BEAKER) (test lbnb=463) 44.3 % 40.1-51.0 MEAN CORPUSCULAR VOLUME (BEAKER) (test hduq=011) 88.2 fL 79.0-92.2 MEAN CORPUSCULAR HEMOGLOBIN (BEAKER) (test jxjk=713) 29.9 pg 25.7-32.2 MEAN CORPUSCULAR HEMOGLOBIN CONC (BEAKER) (test mqle=992) 33.9 GM/DL 32.3-36.5 RED CELL DISTRIBUTION WIDTH (BEAKER) (test uhfo=167) 12.5 % 11.6-14.4 PLATELET COUNT (BEAKER) (test cefw=043) 165 K/CU MM 150-450 MEAN PLATELET VOLUME (BEAKER) (test fejp=170) 10.2 fL 9.4-12.4 NUCLEATED RED BLOOD CELLS (BEAKER) (test pxyk=079) 0 /100 WBC 0-0 NEUTROPHILS RELATIVE PERCENT (BEAKER) (test edjx=726) 66 % LYMPHOCYTES RELATIVE PERCENT (BEAKER) (test qcim=566) 18 % MONOCYTES RELATIVE PERCENT (BEAKER) (test bmyz=444) 12 % EOSINOPHILS RELATIVE PERCENT (BEAKER) (test djbb=238) 4 % BASOPHILS RELATIVE PERCENT (BEAKER) (test ykfe=517) 0 % NEUTROPHILS ABSOLUTE COUNT (BEAKER) (test kdzg=905) 4.74 K/ L 1.78-5.38 LYMPHOCYTES ABSOLUTE COUNT (BEAKER) (test uzpm=373) 1.31 K/ L 1.32-3.57 MONOCYTES ABSOLUTE COUNT (BEAKER) (test pnwf=096) 0.88 K/ L 0.30-0.82 EOSINOPHILS ABSOLUTE COUNT (BEAKER) (test bxzi=874) 0.25 K/ L 0.04-0.54 BASOPHILS ABSOLUTE COUNT (BEAKER) (test ohrt=369) 0.02 K/ L 0.01-0.08 IMMATURE GRANULOCYTES-RELATIVE PERCENT (BEAKER) (test wzrp=0558) 0 % 0-1 POCT-GLUCOSE [id number] 17:52:00* Test Item Value Reference Range Comments POC-GLUCOSE METER (BEAKER) (test zvbw=5307) 334 mg/dL 70-110 TESTED AT [facility] [address] [facility] [address] CBC W/PLT COUNT & AUTO [id number] 12:11:00* Test Item Value Reference Range Comments WHITE BLOOD CELL COUNT (BEAKER) (test lyxl=832) 9.8 K/ L 3.5-10.5 RED BLOOD CELL COUNT (BEAKER) (test xxak=255) 5.59 M/ L 4.63-6.08 HEMOGLOBIN (BEAKER) (test mhao=664) 17.1 GM/DL 13.7-17.5 HEMATOCRIT (BEAKER) (test hpzn=219) 49.7 % 40.1-51.0 MEAN CORPUSCULAR VOLUME (BEAKER) (test mnqm=283) 88.9 fL 79.0-92.2 MEAN CORPUSCULAR HEMOGLOBIN (BEAKER) (test lqhx=851) 30.6 pg 25.7-32.2 MEAN CORPUSCULAR HEMOGLOBIN CONC (BEAKER) (test wvma=807) 34.4 GM/DL 32.3-36.5 RED CELL DISTRIBUTION WIDTH (BEAKER) (test zqpu=721) 13.0 % 11.6-14.4 PLATELET COUNT (BEAKER) (test ocje=968) 218 K/CU MM 150-450 MEAN PLATELET VOLUME (BEAKER) (test cary=674) 10.0 fL 9.4-12.4 NUCLEATED RED BLOOD CELLS (BEAKER) (test vfpj=461) 0 /100 WBC 0-0 (CELLAVISION MANUAL DIFF)2018-03-02 12:11:00* Test Item Value Reference Range Comments NEUTROPHILS - REL (CELLAVISION)(BEAKER) (test pnfs=2386) 74 % LYMPHOCYTES - REL (CELLAVISION)(BEAKER) (test armx=9520) 12 % MONOCYTES - REL (CELLAVISION)(BEAKER) (test qoyk=9507) 8 % EOSINOPHILS - REL (CELLAVISION)(BEAKER) (test qtaz=3034) 5 % ATYPICAL LYMPHOCYTES - REL (CELLAVISION)(BEAKER) (test ntmd=3130) 1 % 0-0 NEUTROPHILS - ABS (CELLAVISION)(BEAKER) (test hetz=2020) 7.25 K/ul 1.78-5.38 LYMPHOCYTES - ABS (CELLAVISION)(BEAKER) (test usbl=3539) 1.18 K/ul 1.32-3.57 MONOCYTES - ABS (CELLAVISION)(BEAKER) (test mjge=3120) 0.78 K/uL 0.30-0.82 EOSINOPHILS - ABS (CELLAVISION)(BEAKER) (test otbf=0539) 0.49 K/uL 0.04-0.54 ATYPICAL LYMPHOCYTES - ABS (CELLAVISION)(BEAKER) (test tjlh=5625) 0.10 K/uL 0.00-0.00 TOTAL COUNTED (BEAKER) (test zqmb=8737) 100 WBC MORPHOLOGY (BEAKER) (test qphz=150) Normal PLT MORPHOLOGY (BEAKER) (test brdv=648) Normal ANISOCYTOSIS (BEAKER) (test pqcw=022) 1+ few MICROCYTES (BEAKER) (test vnpb=836) 1+ few POIKILOCYTES (BEAKER) (test bvnw=776) 1+ few ARTIFACT (CELLAVISION)(BEAKER) (test nquk=6744) Present PLATELET CONCENTRATION (CELLAVISION)(BEAKER) (test fzsr=8566) Adequate Received comment: User comments: Slide comments: POCT-GLUCOSE [id number] 10:17:00* Test Item Value Reference Range Comments POC-GLUCOSE METER (BEAKER) (test jhew=6448) 198 mg/dL 70-110 TESTED AT [facility] [address] [place] [address] BASIC METABOLIC [id number] 06:26:00* Test Item Value Reference Range Comments SODIUM (BEAKER) (test mugy=841) 135 meq/L 136-145 POTASSIUM (BEAKER) (test sryc=001) 3.1 meq/L 3.5-5.1 CHLORIDE (BEAKER) (test ggio=191) 91 meq/L 98-107 CO2 (BEAKER) (test pker=307) 31 meq/L 22-29 BLOOD UREA NITROGEN (BEAKER) (test wpac=190) 42 mg/dL 7-21 CREATININE (BEAKER) (test nhfc=143) 1.73 mg/dL 0.57-1.25 GLUCOSE RANDOM (BEAKER) (test hyxl=548) 208 mg/dL 70-105 CALCIUM (BEAKER) (test mtgl=867) 9.9 mg/dL 8.4-10.2 EGFR (BEAKER) (test vxnw=2461) 42 mL/min/1.73 sq m ESTIMATED GFR IS NOT ACCURATE CREATININE CLEARANCE IN PREDICTING GLOMERULAR FILTRATION RATE. ESTIMATED GFR IS NOT APPLICABLE FOR DIALYSIS PATIENTS. POCT-GLUCOSE [id number] 20:59:00* Test Item Value Reference Range Comments POC-GLUCOSE METER (BEAKER) (test fpxd=6637) 349 mg/dL 70-110 TESTED AT [facility] [address] [facility] [address] POCT-GLUCOSE [id number] 19:14:00* Test Item Value Reference Range Comments POC-GLUCOSE METER (BEAKER) (test bqfe=3964) 383 mg/dL 70-110 TESTED AT [place] [id number] [facility] [address] POCT-GLUCOSE [id number] 09:51:00* Test Item Value Reference Range Comments POC-GLUCOSE METER (BEAKER) (test qawm=7093) 220 mg/dL 70-110 TESTED AT [place] [id number] [facility] [address] BASIC METABOLIC [id number] 07:04:00* Test Item Value Reference Range Comments SODIUM (BEAKER) (test pqpf=799) 138 meq/L 136-145 POTASSIUM (BEAKER) (test shuq=024) 2.9 meq/L 3.5-5.1 CHLORIDE (BEAKER) (test whdb=880) 94 meq/L 98-107 CO2 (BEAKER) (test rmje=892) 33 meq/L 22-29 BLOOD UREA NITROGEN (BEAKER) (test jycc=163) 36 mg/dL 7-21 CREATININE (BEAKER) (test jtxh=920) 1.78 mg/dL 0.57-1.25 GLUCOSE RANDOM (BEAKER) (test aced=417) 177 mg/dL 70-105 CALCIUM (BEAKER) (test bcbl=522) 9.4 mg/dL 8.4-10.2 EGFR (BEAKER) (test omyz=3253) 40 mL/min/1.73 sq m ESTIMATED GFR IS NOT ACCURATE CREATININE CLEARANCE IN PREDICTING GLOMERULAR FILTRATION RATE. ESTIMATED GFR IS NOT APPLICABLE FOR DIALYSIS PATIENTS. CBC W/PLT COUNT & AUTO [id number] 06:33:00* Test Item Value Reference Range Comments WHITE BLOOD CELL COUNT (BEAKER) (test qkzg=913) 9.2 K/ L 3.5-10.5 RED BLOOD CELL COUNT (BEAKER) (test dghc=947) 5.62 M/ L 4.63-6.08 HEMOGLOBIN (BEAKER) (test iiqe=305) 16.7 GM/DL 13.7-17.5 HEMATOCRIT (BEAKER) (test lvzq=516) 49.9 % 40.1-51.0 MEAN CORPUSCULAR VOLUME (BEAKER) (test wxqj=059) 88.8 fL 79.0-92.2 MEAN CORPUSCULAR HEMOGLOBIN (BEAKER) (test kxga=435) 29.7 pg 25.7-32.2 MEAN CORPUSCULAR HEMOGLOBIN CONC (BEAKER) (test xtim=455) 33.5 GM/DL 32.3-36.5 RED CELL DISTRIBUTION WIDTH (BEAKER) (test upjw=374) 13.4 % 11.6-14.4 PLATELET COUNT (BEAKER) (test ijmb=777) 211 K/CU MM 150-450 MEAN PLATELET VOLUME (BEAKER) (test wzaq=549) 10.3 fL 9.4-12.4 NUCLEATED RED BLOOD CELLS (BEAKER) (test livc=050) 0 /100 WBC 0-0 NEUTROPHILS RELATIVE PERCENT (BEAKER) (test mmze=539) 72 % LYMPHOCYTES RELATIVE PERCENT (BEAKER) (test xejr=193) 12 % MONOCYTES RELATIVE PERCENT (BEAKER) (test knzp=524) 14 % EOSINOPHILS RELATIVE PERCENT (BEAKER) (test afrj=485) 2 % BASOPHILS RELATIVE PERCENT (BEAKER) (test tott=347) 0 % NEUTROPHILS ABSOLUTE COUNT (BEAKER) (test zgmk=195) 6.62 K/ L 1.78-5.38 LYMPHOCYTES ABSOLUTE COUNT (BEAKER) (test qgjd=788) 1.06 K/ L 1.32-3.57 MONOCYTES ABSOLUTE COUNT (BEAKER) (test buqz=802) 1.25 K/ L 0.30-0.82 EOSINOPHILS ABSOLUTE COUNT (BEAKER) (test lcsb=387) 0.21 K/ L 0.04-0.54 BASOPHILS ABSOLUTE COUNT (BEAKER) (test tnuf=034) 0.04 K/ L 0.01-0.08 IMMATURE GRANULOCYTES-RELATIVE PERCENT (BEAKER) (test lvwb=1085) 0 % 0-1 POCT-GLUCOSE [id number] 22:33:00* Test Item Value Reference Range Comments POC-GLUCOSE METER (BEAKER) (test ricx=7412) 222 mg/dL 70-110 TESTED AT [facility] [address] [facility] [address] POCT-GLUCOSE [id number] 18:06:00* Test Item Value Reference Range Comments POC-GLUCOSE METER (BEAKER) (test zydj=9537) 227 mg/dL 70-110 TESTED AT [facility] [address] [facility] [address] POCT-GLUCOSE [id number] 13:55:00* Test Item Value Reference Range Comments POC-GLUCOSE METER (BEAKER) (test mdye=5985) 176 mg/dL 70-110 TESTED AT [address] [address] POCT-GLUCOSE [id number] 08:36:00* Test Item Value Reference Range Comments POC-GLUCOSE METER (BEAKER) (test ekak=7993) 332 mg/dL 70-110 TESTED AT [place] [id number] [facility] [address] BASIC METABOLIC [id number] 04:30:00* Test Item Value Reference Range Comments SODIUM (BEAKER) (test jbex=179) 138 meq/L 136-145 POTASSIUM (BEAKER) (test wldl=995) 3.5 meq/L 3.5-5.1 Specimen slightly hemolyzed CHLORIDE (BEAKER) (test zarn=030) 96 meq/L 98-107 CO2 (BEAKER) (test whqd=519) 31 meq/L 22-29 BLOOD UREA NITROGEN (BEAKER) (test updh=698) 28 mg/dL 7-21 CREATININE (BEAKER) (test rzmj=513) 1.71 mg/dL 0.57-1.25 Specimen slightly hemolyzed GLUCOSE RANDOM (BEAKER) (test vjjq=356) 286 mg/dL 70-105 CALCIUM (BEAKER) (test sunv=499) 9.5 mg/dL 8.4-10.2 EGFR (BEAKER) (test pvqy=6716) 42 mL/min/1.73 sq m ESTIMATED GFR IS NOT ACCURATE CREATININE CLEARANCE IN PREDICTING GLOMERULAR FILTRATION RATE. ESTIMATED GFR IS NOT APPLICABLE FOR DIALYSIS PATIENTS. CBC W/PLT COUNT & AUTO [id number] 04:02:00* Test Item Value Reference Range Comments WHITE BLOOD CELL COUNT (BEAKER) (test jsxa=392) 8.5 K/ L 3.5-10.5 RED BLOOD CELL COUNT (BEAKER) (test nypu=371) 4.87 M/ L 4.63-6.08 HEMOGLOBIN (BEAKER) (test qxep=246) 14.6 GM/DL 13.7-17.5 HEMATOCRIT (BEAKER) (test cttu=455) 44.3 % 40.1-51.0 MEAN CORPUSCULAR VOLUME (BEAKER) (test vpvn=474) 91.0 fL 79.0-92.2 MEAN CORPUSCULAR HEMOGLOBIN (BEAKER) (test vvdn=831) 30.0 pg 25.7-32.2 MEAN CORPUSCULAR HEMOGLOBIN CONC (BEAKER) (test jqut=643) 33.0 GM/DL 32.3-36.5 RED CELL DISTRIBUTION WIDTH (BEAKER) (test apmk=038) 13.3 % 11.6-14.4 PLATELET COUNT (BEAKER) (test nfzt=712) 184 K/CU MM 150-450 MEAN PLATELET VOLUME (BEAKER) (test nljy=346) 9.9 fL 9.4-12.4 NUCLEATED RED BLOOD CELLS (BEAKER) (test tkuy=543) 0 /100 WBC 0-0 NEUTROPHILS RELATIVE PERCENT (BEAKER) (test ogfu=184) 70 % LYMPHOCYTES RELATIVE PERCENT (BEAKER) (test igmf=893) 15 % MONOCYTES RELATIVE PERCENT (BEAKER) (test oqop=937) 12 % EOSINOPHILS RELATIVE PERCENT (BEAKER) (test tacu=503) 3 % BASOPHILS RELATIVE PERCENT (BEAKER) (test nkpv=985) 1 % NEUTROPHILS ABSOLUTE COUNT (BEAKER) (test jdqd=473) 5.92 K/ L 1.78-5.38 LYMPHOCYTES ABSOLUTE COUNT (BEAKER) (test yvjy=001) 1.27 K/ L 1.32-3.57 MONOCYTES ABSOLUTE COUNT (BEAKER) (test fkny=807) 0.99 K/ L 0.30-0.82 EOSINOPHILS ABSOLUTE COUNT (BEAKER) (test nxtr=268) 0.25 K/ L 0.04-0.54 BASOPHILS ABSOLUTE COUNT (BEAKER) (test tsrq=374) 0.04 K/ L 0.01-0.08 IMMATURE GRANULOCYTES-RELATIVE PERCENT (BEAKER) (test hehs=0845) 0 % 0-1 POCT-GLUCOSE [id number] 21:33:00* Test Item Value Reference Range Comments POC-GLUCOSE METER (BEAKER) (test nlla=5657) 193 mg/dL 70-110 TESTED AT [facility] [address] [facility] [address] POCT-GLUCOSE [id number] 19:04:00* Test Item Value Reference Range Comments POC-GLUCOSE METER (BEAKER) (test iude=0701) 306 mg/dL 70-110 TESTED AT [facility] [address] [facility] [address] POCT-GLUCOSE [id number] 15:42:00* Test Item Value Reference Range Comments POC-GLUCOSE METER (BEAKER) (test ixdl=9038) 205 mg/dL 70-110 TESTED AT [place] [id number] [facility] [address] HEMOGLOBIN [id number] 10:10:00* Test Item Value Reference Range Comments HEMOGLOBIN A1C (BEAKER) (test fhap=366) 7.2 % 4.3-6.1 POCT-GLUCOSE [id number] 09:17:00* Test Item Value Reference Range Comments POC-GLUCOSE METER (BEAKER) (test sjoo=7918) 254 mg/dL 70-110 TESTED AT [address] [address] TROPONIN [id number] 06:24:00* Test Item Value Reference Range Comments TROPONIN I (BEAKER) (test pfrw=858) 0.03 ng/mL 0.00-0.03 Troponin I (TnI) levels must be interpreted in the context of the presenting sym ptoms and the clinical findings. Elevated TnI levels indicate myocardial damage, but are not specific for ischemic heart disease. Elevated TnI levels are seen in patients with other cardiac conditions (including myocarditis and congestive h eart failure), and slight TnI elevations occur in patients with other conditions , including sepsis, renal failure, acidosis, acute neurological disease, and per sistent tachyarrhythmia.TROPONIN [id number] 00:41:00* Test Item Value Reference Range Comments TROPONIN I (BEAKER) (test hevr=685) 0.03 ng/mL 0.00-0.03 Troponin I (TnI) levels must be interpreted in the context of the presenting sym ptoms and the clinical findings. Elevated TnI levels indicate myocardial damage, but are not specific for ischemic heart disease. Elevated TnI levels are seen in patients with other cardiac conditions (including myocarditis and congestive h eart failure), and slight TnI elevations occur in patients with other conditions , including sepsis, renal failure, acidosis, acute neurological disease, and per sistent tachyarrhythmia.COMPREHENSIVE METABOLIC [id number] 00:35:00* Test Item Value Reference Range Comments TOTAL PROTEIN (BEAKER) (test jpto=331) 7.5 gm/dL 6.0-8.3 ALBUMIN (BEAKER) (test jnwk=8828) 4.3 g/dL 3.5-5.0 ALKALINE PHOSPHATASE (BEAKER) (test diiy=746) 119 U/L 40-150 BILIRUBIN TOTAL (BEAKER) (test mxaz=750) 0.6 mg/dL 0.2-1.2 SODIUM (BEAKER) (test kwle=171) 136 meq/L 136-145 POTASSIUM (BEAKER) (test xvwn=250) 3.7 meq/L 3.5-5.1 CHLORIDE (BEAKER) (test yvjx=200) 98 meq/L 98-107 CO2 (BEAKER) (test dacs=473) 26 meq/L 22-29 BLOOD UREA NITROGEN (BEAKER) (test wgrh=932) 24 mg/dL 7-21 CREATININE (BEAKER) (test bddf=900) 1.53 mg/dL 0.57-1.25 GLUCOSE RANDOM (BEAKER) (test zlfk=068) 238 mg/dL 70-105 CALCIUM (BEAKER) (test lukh=285) 9.1 mg/dL 8.4-10.2 AST (SGOT) (BEAKER) (test xjie=613) 16 U/L 5-34 ALT (SGPT) (BEAKER) (test vqfn=533) 12 U/L 6-55 EGFR (BEAKER) (test wmmv=3300) 48 mL/min/1.73 sq m ESTIMATED GFR IS NOT ACCURATE CREATININE CLEARANCE IN PREDICTING GLOMERULAR FILTRATION RATE. ESTIMATED GFR IS NOT APPLICABLE FOR DIALYSIS PATIENTS. RAPID DRUG SCREEN, [id number] 22:06:00* Test Item Value Reference Range Comments BARBITURATE URINE (BEAKER) (test ajzb=164) Negative Negative BENZODIAZEPINE SCREEN URINE (BEAKER) (test hpao=556) Negative Negative COCAINE (METAB.) SCREEN (BEAKER) (test rxbx=5045) Negative Negative METHADONE SCREEN (BEAKER) (test ukgt=3027) Negative Negative OPIATE SCREEN URINE (BEAKER) (test rwks=088) Negative Negative CANNABINOID SCREEN URINE (BEAKER) (test jjur=469) Negative Negative AMPH/METHAMPH SCREEN (BEAKER) (test onru=6258) Negative Negative PHENCYCLIDINE SCREEN URINE (BEAKER) (test aswy=686) Negative Negative OXYCODONE SCREEN URINE (BEAKER) (test dlvj=5995) Negative Negative DRUG CUTOFF CONC.Cocaine 300 ng/mL Cannabinoid 50 ng/mL Benzodiazepine 200 ng/mLBarbiturate 200 ng/mLPh encyclidine 25 ng/mLOpiate 300 ng/mLMethadone 300 ng/mLAmphetamine/ 1000 ng/mL MethamphetamineOxycodone 300 ng/mLThis assay provides an unconfirmed qualitative test result for the cli nical management of patients in emergency situations. Chain of custody not maint ained. Some qrop-vrx-ilhawin medications, as well as adulterants, may cause inac curate results. Clinical correlation should be applied. A more comprehensive chandra g screen or confirmation of a detected drug may be performed upon request.POCT- GLUCOSE [id number] 21:31:00* Test Item Value Reference Range Comments POC-GLUCOSE METER (ALOK) (test jcul=3145) 209 mg/dL 70-110 TESTED AT [facility] [address] [facility] [address] POCT-GLUCOSE [id number] 18:44:00* Test Item Value Reference Range Comments POC-GLUCOSE METER (ALOK) (test okbn=1206) 165 mg/dL 70-110 TESTED AT [place] [id number] [facility] [address] B-TYPE NATRIURETIC FACTOR (BNP)2018-02-26 17:42:00* Test Item Value Reference Range Comments B-TYPE NATRIURETIC PEPTIDE (ALOK) (test cpqe=085) 572 pg/mL 0-100 RAD, CHEST, 1 VIEW, NON [id number] 16:56:00Reason for exam:->sobShould this be performed at the bedside?->YesFINAL REPORT Comparison: 10/04/2017 TECHNIQUE: Single view of the chest FINDINGS: There is atelectasis in the left lung base. Otherwise lungs are clear. Cardiac silhouette is enlarged. Left-sided pacing device noted. No acute skeletal abnormality. Signed: Paramjit Llanos Verified Date/Time: 02/26/2018 16:56:51 Reading Location: [facility] Radiology Reading Room B-TYPE NATRIURETIC FACTOR (BNP)2018-02-26 10:35:00* Test Item Value Reference Range Comments B-TYPE NATRIURETIC PEPTIDE (BEAKER) (test fwif=277) 1033 pg/mL 0-100 BASIC METABOLIC [id number] 10:29:00* Test Item Value Reference Range Comments SODIUM (BEAKER) (test vgzf=228) 142 meq/L 136-145 POTASSIUM (BEAKER) (test bsty=668) 4.1 meq/L 3.5-5.1 CHLORIDE (BEAKER) (test fxjo=345) 102 meq/L 98-107 CO2 (BEAKER) (test tsai=201) 34 meq/L 22-29 BLOOD UREA NITROGEN (BEAKER) (test icme=169) 25 mg/dL 7-21 CREATININE (BEAKER) (test avum=282) 1.46 mg/dL 0.57-1.25 GLUCOSE RANDOM (BEAKER) (test yccc=657) 121 mg/dL 70-105 CALCIUM (BEAKER) (test agan=311) 9.4 mg/dL 8.4-10.2 EGFR (BEAKER) (test vlpw=2334) 51 mL/min/1.73 sq m ESTIMATED GFR IS NOT ACCURATE CREATININE CLEARANCE IN PREDICTING GLOMERULAR FILTRATION RATE. ESTIMATED GFR IS NOT APPLICABLE FOR DIALYSIS PATIENTS. CBC W/PLT COUNT & AUTO [id number] 10:11:00* Test Item Value Reference Range Comments WHITE BLOOD CELL COUNT (BEAKER) (test xxat=910) 7.9 K/ L 3.5-10.5 RED BLOOD CELL COUNT (BEAKER) (test eejc=505) 4.54 M/ L 4.63-6.08 HEMOGLOBIN (BEAKER) (test hqbo=782) 13.7 GM/DL 13.7-17.5 HEMATOCRIT (BEAKER) (test gyuq=779) 42.3 % 40.1-51.0 MEAN CORPUSCULAR VOLUME (BEAKER) (test wiyy=877) 93.2 fL 79.0-92.2 MEAN CORPUSCULAR HEMOGLOBIN (BEAKER) (test jciu=722) 30.2 pg 25.7-32.2 MEAN CORPUSCULAR HEMOGLOBIN CONC (BEAKER) (test tdeo=935) 32.4 GM/DL 32.3-36.5 RED CELL DISTRIBUTION WIDTH (BEAKER) (test nqxo=187) 13.8 % 11.6-14.4 PLATELET COUNT (BEAKER) (test itze=449) 168 K/CU MM 150-450 MEAN PLATELET VOLUME (BEAKER) (test tsvx=235) 9.9 fL 9.4-12.4 NUCLEATED RED BLOOD CELLS (BEAKER) (test susz=842) 0 /100 WBC 0-0 NEUTROPHILS RELATIVE PERCENT (BEAKER) (test bdup=905) 73 % LYMPHOCYTES RELATIVE PERCENT (BEAKER) (test pxmr=611) 13 % MONOCYTES RELATIVE PERCENT (BEAKER) (test sbbs=517) 11 % EOSINOPHILS RELATIVE PERCENT (BEAKER) (test jbay=526) 3 % BASOPHILS RELATIVE PERCENT (BEAKER) (test dunh=257) 0 % NEUTROPHILS ABSOLUTE COUNT (BEAKER) (test ycwg=956) 5.73 K/ L 1.78-5.38 LYMPHOCYTES ABSOLUTE COUNT (BEAKER) (test jhem=826) 1.02 K/ L 1.32-3.57 MONOCYTES ABSOLUTE COUNT (BEAKER) (test kljk=483) 0.84 K/ L 0.30-0.82 EOSINOPHILS ABSOLUTE COUNT (BEAKER) (test tmdc=885) 0.25 K/ L 0.04-0.54 BASOPHILS ABSOLUTE COUNT (BEAKER) (test kezd=813) 0.03 K/ L 0.01-0.08 IMMATURE GRANULOCYTES-RELATIVE PERCENT (BEAKER) (test mfvk=7677) 0 % 0-1 LIPID [id number] 11:22:00* Test Item Value Reference Range Comments TRIGLYCERIDES (BEAKER) (test gljf=673) 176 mg/dL CHOLESTEROL (BEAKER) (test tpfi=114) 121 mg/dL HDL CHOLESTEROL (BEAKER) (test jxqh=765) 29 mg/dL LDL CHOLESTEROL CALCULATED (BEAKER) (test hfub=331) 57 mg/dL Triglyceride Reference Range: Low Risk <150 Borderline 150-199 High Risk 200-499 Very High Risk >=500Cholesterol Reference Range: Low Risk <200 Borderline 200-239 High Risk >240HDL Cholesterol Reference Range: Low Risk >=60 High Risk <40LDL Cholesterol Reference Range: Optimal <100 Near Optimal 100-129 Borderline 130-159 High 160-189 Very High >=190 BASIC METABOLIC [id number] 11:22:00* Test Item Value Reference Range Comments SODIUM (BEAKER) (test woje=383) 139 meq/L 136-145 POTASSIUM (BEAKER) (test rnay=885) 4.2 meq/L 3.5-5.1 CHLORIDE (BEAKER) (test dikv=995) 97 meq/L 98-107 CO2 (BEAKER) (test hdxa=838) 34 meq/L 22-29 BLOOD UREA NITROGEN (BEAKER) (test ntbg=495) 35 mg/dL 7-21 CREATININE (BEAKER) (test ppjw=584) 1.74 mg/dL 0.57-1.25 GLUCOSE RANDOM (BEAKER) (test qljs=952) 239 mg/dL 70-105 CALCIUM (BEAKER) (test tfut=139) 9.1 mg/dL 8.4-10.2 EGFR (BEAKER) (test zkgl=5759) 41 mL/min/1.73 sq m ESTIMATED GFR IS NOT ACCURATE CREATININE CLEARANCE IN PREDICTING GLOMERULAR FILTRATION RATE. ESTIMATED GFR IS NOT APPLICABLE FOR DIALYSIS PATIENTS. HEPATIC FUNCTION [id number] 11:22:00* Test Item Value Reference Range Comments TOTAL PROTEIN (BEAKER) (test spzl=930) 7.8 gm/dL 6.0-8.3 ALBUMIN (BEAKER) (test lthe=4574) 4.6 g/dL 3.5-5.0 BILIRUBIN TOTAL (BEAKER) (test blpp=039) 0.8 mg/dL 0.2-1.2 BILIRUBIN DIRECT (BEAKER) (test mdds=328) 0.3 mg/dL 0.1-0.5 ALKALINE PHOSPHATASE (BEAKER) (test dlzy=342) 119 U/L 40-150 AST (SGOT) (BEAKER) (test gdtb=567) 21 U/L 5-34 ALT (SGPT) (BEAKER) (test aifn=095) 22 U/L 6-55 B-TYPE NATRIURETIC FACTOR (BNP)2018-01-29 11:22:00* Test Item Value Reference Range Comments B-TYPE NATRIURETIC PEPTIDE (BEAKER) (test hezn=396) 985 pg/mL 0-100 CBC W/PLT COUNT & AUTO [id number] 10:55:00* Test Item Value Reference Range Comments WHITE BLOOD CELL COUNT (BEAKER) (test hdyx=077) 7.0 K/ L 3.5-10.5 RED BLOOD CELL COUNT (BEAKER) (test npag=966) 4.60 M/ L 4.63-6.08 HEMOGLOBIN (BEAKER) (test kwww=096) 13.9 GM/DL 13.7-17.5 HEMATOCRIT (BEAKER) (test cufh=709) 42.5 % 40.1-51.0 MEAN CORPUSCULAR VOLUME (BEAKER) (test phyn=043) 92.4 fL 79.0-92.2 MEAN CORPUSCULAR HEMOGLOBIN (BEAKER) (test ycpv=338) 30.2 pg 25.7-32.2 MEAN CORPUSCULAR HEMOGLOBIN CONC (BEAKER) (test czvf=133) 32.7 GM/DL 32.3-36.5 RED CELL DISTRIBUTION WIDTH (BEAKER) (test kqzs=749) 13.6 % 11.6-14.4 PLATELET COUNT (BEAKER) (test hobu=316) 169 K/CU MM 150-450 MEAN PLATELET VOLUME (BEAKER) (test cdkm=846) 9.6 fL 9.4-12.4 NUCLEATED RED BLOOD CELLS (BEAKER) (test uyiq=167) 0 /100 WBC 0-0 NEUTROPHILS RELATIVE PERCENT (BEAKER) (test hdit=860) 72 % LYMPHOCYTES RELATIVE PERCENT (BEAKER) (test estt=987) 13 % MONOCYTES RELATIVE PERCENT (BEAKER) (test wzcj=925) 11 % EOSINOPHILS RELATIVE PERCENT (BEAKER) (test nsxr=371) 4 % BASOPHILS RELATIVE PERCENT (BEAKER) (test kjuh=894) 0 % NEUTROPHILS ABSOLUTE COUNT (BEAKER) (test aclq=722) 5.08 K/ L 1.78-5.38 LYMPHOCYTES ABSOLUTE COUNT (BEAKER) (test ndbw=523) 0.89 K/ L 1.32-3.57 MONOCYTES ABSOLUTE COUNT (BEAKER) (test pyhz=422) 0.75 K/ L 0.30-0.82 EOSINOPHILS ABSOLUTE COUNT (BEAKER) (test jsiq=627) 0.25 K/ L 0.04-0.54 BASOPHILS ABSOLUTE COUNT (BEAKER) (test grfp=414) 0.03 K/ L 0.01-0.08 IMMATURE GRANULOCYTES-RELATIVE PERCENT (BEAKER) (test gmtf=2283) 0 % 0-1 POCT-GLUCOSE [id number] 13:15:00* Test Item Value Reference Range Comments POC-GLUCOSE METER (BEAKER) (test bssh=1882) 322 mg/dL 70-110 TESTED AT [facility] [address] [facility] [address] POCT-GLUCOSE [id number] 09:17:00* Test Item Value Reference Range Comments POC-GLUCOSE METER (BEAKER) (test kevl=3210) 281 mg/dL 70-110 TESTED AT [place] [id number] [facility] [address] BASIC METABOLIC [id number] 05:02:00* Test Item Value Reference Range Comments SODIUM (BEAKER) (test etqs=661) 134 meq/L 136-145 POTASSIUM (BEAKER) (test lbci=975) 4.1 meq/L 3.5-5.1 CHLORIDE (BEAKER) (test jkxr=850) 94 meq/L 98-107 CO2 (BEAKER) (test qxqs=395) 29 meq/L 22-29 BLOOD UREA NITROGEN (BEAKER) (test leww=596) 31 mg/dL 7-21 CREATININE (BEAKER) (test rzrx=531) 1.74 mg/dL 0.57-1.25 GLUCOSE RANDOM (BEAKER) (test gxxk=143) 406 mg/dL 70-105 CALCIUM (BEAKER) (test sdgx=622) 9.2 mg/dL 8.4-10.2 EGFR (BEAKER) (test ynwb=8212) 41 mL/min/1.73 sq m ESTIMATED GFR IS NOT ACCURATE CREATININE CLEARANCE IN PREDICTING GLOMERULAR FILTRATION RATE. ESTIMATED GFR IS NOT APPLICABLE FOR DIALYSIS PATIENTS. CBC W/PLT COUNT & AUTO [id number] 04:29:00* Test Item Value Reference Range Comments WHITE BLOOD CELL COUNT (BEAKER) (test hucj=365) 9.4 K/ L 3.5-10.5 RED BLOOD CELL COUNT (BEAKER) (test tpva=164) 5.59 M/ L 4.63-6.08 HEMOGLOBIN (BEAKER) (test tivk=332) 17.0 GM/DL 13.7-17.5 HEMATOCRIT (BEAKER) (test mrql=598) 49.5 % 40.1-51.0 MEAN CORPUSCULAR VOLUME (BEAKER) (test pzva=771) 88.6 fL 79.0-92.2 MEAN CORPUSCULAR HEMOGLOBIN (BEAKER) (test dkqv=396) 30.4 pg 25.7-32.2 MEAN CORPUSCULAR HEMOGLOBIN CONC (BEAKER) (test dmsp=126) 34.3 GM/DL 32.3-36.5 RED CELL DISTRIBUTION WIDTH (BEAKER) (test izpp=706) 12.6 % 11.6-14.4 PLATELET COUNT (BEAKER) (test iyic=169) 212 K/CU MM 150-450 MEAN PLATELET VOLUME (BEAKER) (test dadk=345) 9.9 fL 9.4-12.4 NUCLEATED RED BLOOD CELLS (BEAKER) (test lujs=768) 0 /100 WBC 0-0 NEUTROPHILS RELATIVE PERCENT (BEAKER) (test ftag=462) 72 % LYMPHOCYTES RELATIVE PERCENT (BEAKER) (test bzvw=785) 15 % MONOCYTES RELATIVE PERCENT (BEAKER) (test nuqm=831) 10 % EOSINOPHILS RELATIVE PERCENT (BEAKER) (test nhml=777) 3 % BASOPHILS RELATIVE PERCENT (BEAKER) (test huwb=436) 0 % NEUTROPHILS ABSOLUTE COUNT (BEAKER) (test kzuz=755) 6.73 K/ L 1.78-5.38 LYMPHOCYTES ABSOLUTE COUNT (BEAKER) (test lxhb=836) 1.39 K/ L 1.32-3.57 MONOCYTES ABSOLUTE COUNT (BEAKER) (test wvxu=672) 0.96 K/ L 0.30-0.82 EOSINOPHILS ABSOLUTE COUNT (BEAKER) (test sgrc=622) 0.23 K/ L 0.04-0.54 BASOPHILS ABSOLUTE COUNT (BEAKER) (test guhl=738) 0.03 K/ L 0.01-0.08 IMMATURE GRANULOCYTES-RELATIVE PERCENT (BEAKER) (test gwhw=2719) 0 % 0-1 POCT-GLUCOSE [id number] 21:40:00* Test Item Value Reference Range Comments POC-GLUCOSE METER (BEAKER) (test fiha=1375) 268 mg/dL 70-110 TESTED AT [address] [address] POCT-GLUCOSE [id number] 18:24:00* Test Item Value Reference Range Comments POC-GLUCOSE METER (BEAKER) (test dtoo=1671) 301 mg/dL 70-110 TESTED AT [address] [address] POCT-GLUCOSE [id number] 13:48:00* Test Item Value Reference Range Comments POC-GLUCOSE METER (BEAKER) (test cflg=6980) 237 mg/dL 70-110 TESTED AT [facility] [address] [facility] [address] POCT-GLUCOSE [id number] 09:33:00* Test Item Value Reference Range Comments POC-GLUCOSE METER (BEAKER) (test gwgb=6948) 292 mg/dL 70-110 TESTED AT [place] [id number] [facility] [address] COMPREHENSIVE METABOLIC [id number] 07:22:00* Test Item Value Reference Range Comments TOTAL PROTEIN (BEAKER) (test dibk=479) 7.0 gm/dL 6.0-8.3 ALBUMIN (BEAKER) (test tajl=9957) 3.9 g/dL 3.5-5.0 ALKALINE PHOSPHATASE (BEAKER) (test whzj=871) 134 U/L 40-150 BILIRUBIN TOTAL (BEAKER) (test bsrv=509) 0.8 mg/dL 0.2-1.2 SODIUM (BEAKER) (test iiyf=143) 137 meq/L 136-145 POTASSIUM (BEAKER) (test hpre=286) 3.7 meq/L 3.5-5.1 CHLORIDE (BEAKER) (test pmru=203) 96 meq/L 98-107 CO2 (BEAKER) (test aiad=574) 30 meq/L 22-29 BLOOD UREA NITROGEN (BEAKER) (test itlh=247) 26 mg/dL 7-21 CREATININE (BEAKER) (test ochb=707) 1.53 mg/dL 0.57-1.25 GLUCOSE RANDOM (BEAKER) (test vpje=973) 303 mg/dL 70-105 CALCIUM (BEAKER) (test arpo=175) 9.3 mg/dL 8.4-10.2 AST (SGOT) (BEAKER) (test elro=130) 15 U/L 5-34 ALT (SGPT) (BEAKER) (test tyat=073) 19 U/L 6-55 EGFR (BEAKER) (test wvov=8962) 48 mL/min/1.73 sq m ESTIMATED GFR IS NOT ACCURATE CREATININE CLEARANCE IN PREDICTING GLOMERULAR FILTRATION RATE. ESTIMATED GFR IS NOT APPLICABLE FOR DIALYSIS PATIENTS. BASIC METABOLIC [id number] 07:22:00* Test Item Value Reference Range Comments SODIUM (BEAKER) (test zoue=971) 137 meq/L 136-145 POTASSIUM (BEAKER) (test vblu=499) 3.7 meq/L 3.5-5.1 CHLORIDE (BEAKER) (test kllj=428) 96 meq/L 98-107 CO2 (BEAKER) (test fnwq=796) 30 meq/L 22-29 BLOOD UREA NITROGEN (BEAKER) (test ybyg=684) 26 mg/dL 7-21 CREATININE (BEAKER) (test vvfn=688) 1.53 mg/dL 0.57-1.25 GLUCOSE RANDOM (BEAKER) (test xsxq=548) 303 mg/dL 70-105 CALCIUM (BEAKER) (test uoav=247) 9.3 mg/dL 8.4-10.2 EGFR (BEAKER) (test ezly=4841) 48 mL/min/1.73 sq m ESTIMATED GFR IS NOT ACCURATE CREATININE CLEARANCE IN PREDICTING GLOMERULAR FILTRATION RATE. ESTIMATED GFR IS NOT APPLICABLE FOR DIALYSIS PATIENTS. CBC W/PLT COUNT & AUTO [id number] 05:17:00* Test Item Value Reference Range Comments WHITE BLOOD CELL COUNT (BEAKER) (test ikiy=350) 7.4 K/ L 3.5-10.5 RED BLOOD CELL COUNT (BEAKER) (test szqe=919) 4.78 M/ L 4.63-6.08 HEMOGLOBIN (BEAKER) (test zhxz=226) 14.7 GM/DL 13.7-17.5 HEMATOCRIT (BEAKER) (test rrhx=252) 42.3 % 40.1-51.0 MEAN CORPUSCULAR VOLUME (BEAKER) (test faxm=405) 88.5 fL 79.0-92.2 MEAN CORPUSCULAR HEMOGLOBIN (BEAKER) (test lqvi=940) 30.8 pg 25.7-32.2 MEAN CORPUSCULAR HEMOGLOBIN CONC (BEAKER) (test eqri=921) 34.8 GM/DL 32.3-36.5 RED CELL DISTRIBUTION WIDTH (BEAKER) (test tkyp=563) 12.8 % 11.6-14.4 PLATELET COUNT (BEAKER) (test hflt=191) 186 K/CU MM 150-450 MEAN PLATELET VOLUME (BEAKER) (test qztb=763) 10.7 fL 9.4-12.4 NUCLEATED RED BLOOD CELLS (BEAKER) (test rigr=796) 0 /100 WBC 0-0 NEUTROPHILS RELATIVE PERCENT (BEAKER) (test pxdw=941) 68 % LYMPHOCYTES RELATIVE PERCENT (BEAKER) (test qkka=809) 19 % MONOCYTES RELATIVE PERCENT (BEAKER) (test zdkd=083) 11 % EOSINOPHILS RELATIVE PERCENT (BEAKER) (test tpyp=765) 2 % BASOPHILS RELATIVE PERCENT (BEAKER) (test vwhz=814) 0 % NEUTROPHILS ABSOLUTE COUNT (BEAKER) (test bwlp=018) 5.02 K/ L 1.78-5.38 LYMPHOCYTES ABSOLUTE COUNT (BEAKER) (test ffyj=818) 1.38 K/ L 1.32-3.57 MONOCYTES ABSOLUTE COUNT (BEAKER) (test mvxt=672) 0.84 K/ L 0.30-0.82 EOSINOPHILS ABSOLUTE COUNT (BEAKER) (test ojqq=431) 0.13 K/ L 0.04-0.54 BASOPHILS ABSOLUTE COUNT (BEAKER) (test orrs=261) 0.03 K/ L 0.01-0.08 IMMATURE GRANULOCYTES-RELATIVE PERCENT (BEAKER) (test rodc=7464) 0 % 0-1 POCT-GLUCOSE [id number] 23:57:00* Test Item Value Reference Range Comments POC-GLUCOSE METER (BEAKER) (test drby=2215) 379 mg/dL 70-110 TESTED AT [address] [address] POCT-GLUCOSE [id number] 20:53:00* Test Item Value Reference Range Comments POC-GLUCOSE METER (BEAKER) (test gcge=9813) 283 mg/dL 70-110 TESTED AT [address] [address] POCT-GLUCOSE [id number] 17:34:00* Test Item Value Reference Range Comments POC-GLUCOSE METER (BEAKER) (test myrt=8710) 257 mg/dL 70-110 TESTED AT [address] [address] HEMOGLOBIN [id number] 14:37:00* Test Item Value Reference Range Comments HEMOGLOBIN A1C (BEAKER) (test ttlm=893) 10.5 % 4.3-6.1 POCT-GLUCOSE [id number] 13:29:00* Test Item Value Reference Range Comments POC-GLUCOSE METER (BEAKER) (test zdrq=1355) 268 mg/dL 70-110 TESTED AT [facility] [address] [facility] [address] BASIC METABOLIC [id number] 10:53:00* Test Item Value Reference Range Comments SODIUM (BEAKER) (test fnyi=964) 135 meq/L 136-145 POTASSIUM (BEAKER) (test mtph=756) 4.3 meq/L 3.5-5.1 CHLORIDE (BEAKER) (test qeyf=201) 93 meq/L 98-107 CO2 (BEAKER) (test nxwp=011) 34 meq/L 22-29 BLOOD UREA NITROGEN (BEAKER) (test rzxj=137) 29 mg/dL 7-21 CREATININE (BEAKER) (test gzsx=061) 1.79 mg/dL 0.57-1.25 GLUCOSE RANDOM (BEAKER) (test vxek=184) 406 mg/dL 70-105 CALCIUM (BEAKER) (test eyan=240) 9.8 mg/dL 8.4-10.2 EGFR (BEAKER) (test qktk=3461) 40 mL/min/1.73 sq m ESTIMATED GFR IS NOT ACCURATE CREATININE CLEARANCE IN PREDICTING GLOMERULAR FILTRATION RATE. ESTIMATED GFR IS NOT APPLICABLE FOR DIALYSIS PATIENTS. B-TYPE NATRIURETIC FACTOR (BNP)2017-12-04 10:41:00* Test Item Value Reference Range Comments B-TYPE NATRIURETIC PEPTIDE (BEAKER) (test mxrt=991) 287 pg/mL 0-100 CBC W/PLT COUNT & AUTO [id number] 10:18:00* Test Item Value Reference Range Comments WHITE BLOOD CELL COUNT (BEAKER) (test oclo=728) 7.7 K/ L 3.5-10.5 RED BLOOD CELL COUNT (BEAKER) (test bquj=424) 5.57 M/ L 4.63-6.08 HEMOGLOBIN (BEAKER) (test fhlc=149) 17.0 GM/DL 13.7-17.5 HEMATOCRIT (BEAKER) (test ftuz=551) 49.7 % 40.1-51.0 MEAN CORPUSCULAR VOLUME (BEAKER) (test ilxq=617) 89.2 fL 79.0-92.2 MEAN CORPUSCULAR HEMOGLOBIN (BEAKER) (test nwth=961) 30.5 pg 25.7-32.2 MEAN CORPUSCULAR HEMOGLOBIN CONC (BEAKER) (test sssq=585) 34.2 GM/DL 32.3-36.5 RED CELL DISTRIBUTION WIDTH (BEAKER) (test zwal=354) 12.6 % 11.6-14.4 PLATELET COUNT (BEAKER) (test tmfp=396) 218 K/CU MM 150-450 MEAN PLATELET VOLUME (BEAKER) (test dlsm=201) 9.8 fL 9.4-12.4 NUCLEATED RED BLOOD CELLS (BEAKER) (test zlpe=194) 0 /100 WBC 0-0 NEUTROPHILS RELATIVE PERCENT (BEAKER) (test rasn=024) 72 % LYMPHOCYTES RELATIVE PERCENT (BEAKER) (test japd=262) 15 % MONOCYTES RELATIVE PERCENT (BEAKER) (test phms=713) 10 % EOSINOPHILS RELATIVE PERCENT (BEAKER) (test cfis=481) 3 % BASOPHILS RELATIVE PERCENT (BEAKER) (test gupo=690) 0 % NEUTROPHILS ABSOLUTE COUNT (BEAKER) (test rgif=657) 5.53 K/ L 1.78-5.38 LYMPHOCYTES ABSOLUTE COUNT (BEAKER) (test imwj=968) 1.12 K/ L 1.32-3.57 MONOCYTES ABSOLUTE COUNT (BEAKER) (test zvqx=769) 0.77 K/ L 0.30-0.82 EOSINOPHILS ABSOLUTE COUNT (BEAKER) (test prjf=178) 0.20 K/ L 0.04-0.54 BASOPHILS ABSOLUTE COUNT (BEAKER) (test ayde=131) 0.03 K/ L 0.01-0.08 IMMATURE GRANULOCYTES-RELATIVE PERCENT (BEAKER) (test mszk=6075) 0 % 0-1 B-TYPE NATRIURETIC FACTOR (BNP)2017-10-23 11:38:00* Test Item Value Reference Range Comments B-TYPE NATRIURETIC PEPTIDE (BEAKER) (test rdfw=451) 358 pg/mL 0-100 BASIC METABOLIC [id number] 11:29:00* Test Item Value Reference Range Comments SODIUM (BEAKER) (test hmpw=832) 134 meq/L 136-145 POTASSIUM (BEAKER) (test nsbd=450) 4.1 meq/L 3.5-5.1 CHLORIDE (BEAKER) (test jdte=964) 93 meq/L 98-107 CO2 (BEAKER) (test iyrk=560) 34 meq/L 22-29 BLOOD UREA NITROGEN (BEAKER) (test iwrh=140) 25 mg/dL 7-21 CREATININE (BEAKER) (test sxum=740) 1.78 mg/dL 0.57-1.25 GLUCOSE RANDOM (BEAKER) (test puuj=591) 306 mg/dL 70-105 CALCIUM (BEAKER) (test gait=516) 9.1 mg/dL 8.4-10.2 EGFR (BEAKER) (test xzwu=7252) 40 mL/min/1.73 sq m ESTIMATED GFR IS NOT ACCURATE CREATININE CLEARANCE IN PREDICTING GLOMERULAR FILTRATION RATE. ESTIMATED GFR IS NOT APPLICABLE FOR DIALYSIS PATIENTS. CBC W/PLT COUNT & AUTO [id number] 11:09:00* Test Item Value Reference Range Comments WHITE BLOOD CELL COUNT (BEAKER) (test qxwq=562) 6.4 K/ L 3.5-10.5 RED BLOOD CELL COUNT (BEAKER) (test azpo=980) 5.33 M/ L 4.63-6.08 HEMOGLOBIN (BEAKER) (test qkak=033) 15.6 GM/DL 13.7-17.5 HEMATOCRIT (BEAKER) (test xaeq=018) 48.0 % 40.1-51.0 MEAN CORPUSCULAR VOLUME (BEAKER) (test pcta=366) 90.1 fL 79.0-92.2 MEAN CORPUSCULAR HEMOGLOBIN (BEAKER) (test axtj=829) 29.3 pg 25.7-32.2 MEAN CORPUSCULAR HEMOGLOBIN CONC (BEAKER) (test mgkf=712) 32.5 GM/DL 32.3-36.5 RED CELL DISTRIBUTION WIDTH (BEAKER) (test tjhy=348) 14.6 % 11.6-14.4 PLATELET COUNT (BEAKER) (test xuui=440) 247 K/CU MM 150-450 MEAN PLATELET VOLUME (BEAKER) (test vslp=093) 9.9 fL 9.4-12.4 NUCLEATED RED BLOOD CELLS (BEAKER) (test biyj=440) 0 /100 WBC 0-0 NEUTROPHILS RELATIVE PERCENT (BEAKER) (test szom=331) 72 % LYMPHOCYTES RELATIVE PERCENT (BEAKER) (test rftd=417) 15 % MONOCYTES RELATIVE PERCENT (BEAKER) (test itky=055) 10 % EOSINOPHILS RELATIVE PERCENT (BEAKER) (test botk=156) 3 % BASOPHILS RELATIVE PERCENT (BEAKER) (test grox=939) 1 % NEUTROPHILS ABSOLUTE COUNT (BEAKER) (test mcuw=980) 4.61 K/ L 1.78-5.38 LYMPHOCYTES ABSOLUTE COUNT (BEAKER) (test xchh=645) 0.94 K/ L 1.32-3.57 MONOCYTES ABSOLUTE COUNT (BEAKER) (test zvhv=816) 0.63 K/ L 0.30-0.82 EOSINOPHILS ABSOLUTE COUNT (BEAKER) (test vwyd=520) 0.17 K/ L 0.04-0.54 BASOPHILS ABSOLUTE COUNT (BEAKER) (test pznx=153) 0.03 K/ L 0.01-0.08 IMMATURE GRANULOCYTES-RELATIVE PERCENT (BEAKER) (test ikgl=9361) 0 % 0-1 BASIC METABOLIC [id number] 12:42:00* Test Item Value Reference Range Comments SODIUM (BEAKER) (test oawo=164) 134 meq/L 136-145 POTASSIUM (BEAKER) (test zqnj=109) 4.3 meq/L 3.5-5.1 CHLORIDE (BEAKER) (test umli=887) 90 meq/L 98-107 CO2 (BEAKER) (test jcor=211) 34 meq/L 22-29 BLOOD UREA NITROGEN (BEAKER) (test gwfm=762) 38 mg/dL 7-21 CREATININE (BEAKER) (test ugps=772) 1.91 mg/dL 0.57-1.25 GLUCOSE RANDOM (BEAKER) (test tnxn=873) 355 mg/dL 70-105 CALCIUM (BEAKER) (test iipd=838) 9.7 mg/dL 8.4-10.2 EGFR (BEAKER) (test mkge=0430) 37 mL/min/1.73 sq m ESTIMATED GFR IS NOT ACCURATE CREATININE CLEARANCE IN PREDICTING GLOMERULAR FILTRATION RATE. ESTIMATED GFR IS NOT APPLICABLE FOR DIALYSIS PATIENTS. B-TYPE NATRIURETIC FACTOR (BNP)2017-10-09 12:28:00* Test Item Value Reference Range Comments B-TYPE NATRIURETIC PEPTIDE (BEAKER) (test vjxi=756) 416 pg/mL 0-100 CBC W/PLT COUNT & AUTO [id number] 12:10:00* Test Item Value Reference Range Comments WHITE BLOOD CELL COUNT (BEAKER) (test iqiy=859) 7.3 K/ L 3.5-10.5 RED BLOOD CELL COUNT (BEAKER) (test dyve=191) 4.98 M/ L 4.63-6.08 HEMOGLOBIN (BEAKER) (test zldu=185) 14.5 GM/DL 13.7-17.5 HEMATOCRIT (BEAKER) (test rmsk=957) 45.4 % 40.1-51.0 MEAN CORPUSCULAR VOLUME (BEAKER) (test rqjh=025) 91.2 fL 79.0-92.2 MEAN CORPUSCULAR HEMOGLOBIN (BEAKER) (test sacz=441) 29.1 pg 25.7-32.2 MEAN CORPUSCULAR HEMOGLOBIN CONC (BEAKER) (test wfsy=613) 31.9 GM/DL 32.3-36.5 RED CELL DISTRIBUTION WIDTH (BEAKER) (test lovz=919) 17.4 % 11.6-14.4 PLATELET COUNT (BEAKER) (test xxmi=409) 248 K/CU MM 150-450 MEAN PLATELET VOLUME (BEAKER) (test dkkb=622) 10.2 fL 9.4-12.4 NUCLEATED RED BLOOD CELLS (BEAKER) (test bjby=288) 0 /100 WBC 0-0 NEUTROPHILS RELATIVE PERCENT (BEAKER) (test pfcu=930) 64 % LYMPHOCYTES RELATIVE PERCENT (BEAKER) (test ugtu=130) 16 % MONOCYTES RELATIVE PERCENT (BEAKER) (test qbjw=974) 15 % EOSINOPHILS RELATIVE PERCENT (BEAKER) (test wryi=128) 4 % BASOPHILS RELATIVE PERCENT (BEAKER) (test nsuz=196) 0 % NEUTROPHILS ABSOLUTE COUNT (BEAKER) (test unwq=314) 4.67 K/ L 1.78-5.38 LYMPHOCYTES ABSOLUTE COUNT (BEAKER) (test hlkm=996) 1.15 K/ L 1.32-3.57 MONOCYTES ABSOLUTE COUNT (BEAKER) (test btae=753) 1.09 K/ L 0.30-0.82 EOSINOPHILS ABSOLUTE COUNT (BEAKER) (test gpox=232) 0.30 K/ L 0.04-0.54 BASOPHILS ABSOLUTE COUNT (BEAKER) (test zdox=223) 0.02 K/ L 0.01-0.08 IMMATURE GRANULOCYTES-RELATIVE PERCENT (BEAKER) (test xnxk=8598) 0 % 0-1 POCT-GLUCOSE [id number] 17:41:00* Test Item Value Reference Range Comments POC-GLUCOSE METER (BEAKER) (test ycnl=8928) 395 mg/dL 70-110 TESTED AT [place] [id number] [facility] [address] POCT-GLUCOSE [id number] 16:59:00* Test Item Value Reference Range Comments POC-GLUCOSE METER (BEAKER) (test rlzg=5181) 369 mg/dL 70-110 Will Repeat Test/TESTED AT [address] [address] POCT-GLUCOSE [id number] 11:57:00* Test Item Value Reference Range Comments POC-GLUCOSE METER (BEAKER) (test edqv=0915) 279 mg/dL 70-110 TESTED AT [address] [address] [id number] 08:57:00* Test Item Value Reference Range Comments MAGNESIUM (BEAKER) (test psyf=965) 2.0 mg/dL 1.6-2.6 BASIC METABOLIC [id number] 08:57:00* Test Item Value Reference Range Comments SODIUM (BEAKER) (test kjvf=208) 131 meq/L 136-145 POTASSIUM (BEAKER) (test pdpu=316) 3.6 meq/L 3.5-5.1 CHLORIDE (BEAKER) (test kihl=092) 83 meq/L 98-107 CO2 (BEAKER) (test cadu=334) 34 meq/L 22-29 BLOOD UREA NITROGEN (BEAKER) (test kopc=927) 30 mg/dL 7-21 CREATININE (BEAKER) (test trqp=938) 1.77 mg/dL 0.57-1.25 GLUCOSE RANDOM (BEAKER) (test dpfq=064) 294 mg/dL 70-105 CALCIUM (BEAKER) (test xhbd=961) 9.0 mg/dL 8.4-10.2 EGFR (BEAKER) (test danx=6226) 40 mL/min/1.73 sq m ESTIMATED GFR IS NOT ACCURATE CREATININE CLEARANCE IN PREDICTING GLOMERULAR FILTRATION RATE. ESTIMATED GFR IS NOT APPLICABLE FOR DIALYSIS PATIENTS. POCT-GLUCOSE [id number] 07:42:00* Test Item Value Reference Range Comments POC-GLUCOSE METER (BEAKER) (test tgeg=5836) 239 mg/dL 70-110 TESTED AT [address] [address] CBC W/PLT COUNT & AUTO [id number] 07:38:00* Test Item Value Reference Range Comments WHITE BLOOD CELL COUNT (BEAKER) (test riku=956) 10.1 K/ L 3.5-10.5 RED BLOOD CELL COUNT (BEAKER) (test tphh=703) 4.96 M/ L 4.63-6.08 HEMOGLOBIN (BEAKER) (test jvpm=448) 14.6 GM/DL 13.7-17.5 HEMATOCRIT (BEAKER) (test yszt=374) 43.3 % 40.1-51.0 MEAN CORPUSCULAR VOLUME (BEAKER) (test krqs=432) 87.3 fL 79.0-92.2 MEAN CORPUSCULAR HEMOGLOBIN (BEAKER) (test sxmy=076) 29.4 pg 25.7-32.2 MEAN CORPUSCULAR HEMOGLOBIN CONC (BEAKER) (test colv=773) 33.7 GM/DL 32.3-36.5 RED CELL DISTRIBUTION WIDTH (BEAKER) (test xxoj=576) 18.2 % 11.6-14.4 PLATELET COUNT (BEAKER) (test ilxh=088) 197 K/CU MM 150-450 MEAN PLATELET VOLUME (BEAKER) (test lgte=743) 10.2 fL 9.4-12.4 NUCLEATED RED BLOOD CELLS (BEAKER) (test jnxo=865) 0 /100 WBC 0-0 NEUTROPHILS RELATIVE PERCENT (BEAKER) (test tvdn=641) 68 % LYMPHOCYTES RELATIVE PERCENT (BEAKER) (test mdis=410) 14 % MONOCYTES RELATIVE PERCENT (BEAKER) (test mlby=450) 12 % EOSINOPHILS RELATIVE PERCENT (BEAKER) (test qqbw=735) 5 % BASOPHILS RELATIVE PERCENT (BEAKER) (test afhx=283) 0 % NEUTROPHILS ABSOLUTE COUNT (BEAKER) (test zvdo=750) 6.87 K/ L 1.78-5.38 LYMPHOCYTES ABSOLUTE COUNT (BEAKER) (test pthd=381) 1.42 K/ L 1.32-3.57 MONOCYTES ABSOLUTE COUNT (BEAKER) (test tyko=970) 1.23 K/ L 0.30-0.82 EOSINOPHILS ABSOLUTE COUNT (BEAKER) (test czaa=269) 0.45 K/ L 0.04-0.54 BASOPHILS ABSOLUTE COUNT (BEAKER) (test tecl=725) 0.04 K/ L 0.01-0.08 IMMATURE GRANULOCYTES-RELATIVE PERCENT (BEAKER) (test rmko=2886) 1 % 0-1 POCT-GLUCOSE [id number] 21:34:00* Test Item Value Reference Range Comments POC-GLUCOSE METER (BEAKER) (test kmkm=0657) 271 mg/dL 70-110 TESTED AT [address] [address] POCT-GLUCOSE [id number] 17:07:00* Test Item Value Reference Range Comments POC-GLUCOSE METER (BEAKER) (test cinu=4856) 367 mg/dL 70-110 Notified BRENDON JETT/TESTED AT [address] [address] POCT-GLUCOSE [id number] 12:27:00* Test Item Value Reference Range Comments POC-GLUCOSE METER (BEAKER) (test gyeq=8582) 282 mg/dL 70-110 TESTED AT [address] [address] POCT-GLUCOSE [id number] 08:03:00* Test Item Value Reference Range Comments POC-GLUCOSE METER (BEAKER) (test lwzj=2611) 163 mg/dL 70-110 TESTED AT [address] [address] B-TYPE NATRIURETIC FACTOR (BNP)2017-10-05 07:24:00* Test Item Value Reference Range Comments B-TYPE NATRIURETIC PEPTIDE (BEAKER) (test wpjc=907) 1319 pg/mL 0-100 [id number] 07:15:00* Test Item Value Reference Range Comments MAGNESIUM (BEAKER) (test mzix=301) 1.9 mg/dL 1.6-2.6 Specimen slightly hemolyzed BASIC METABOLIC [id number] 07:15:00* Test Item Value Reference Range Comments SODIUM (BEAKER) (test qrdy=621) 132 meq/L 136-145 POTASSIUM (BEAKER) (test rags=119) 3.5 meq/L 3.5-5.1 Specimen slightly hemolyzed CHLORIDE (BEAKER) (test ejyg=391) 90 meq/L 98-107 CO2 (BEAKER) (test dqzp=318) 30 meq/L 22-29 BLOOD UREA NITROGEN (BEAKER) (test bbat=231) 20 mg/dL 7-21 CREATININE (BEAKER) (test ttxi=584) 1.37 mg/dL 0.57-1.25 Specimen slightly hemolyzed GLUCOSE RANDOM (BEAKER) (test lsaj=346) 194 mg/dL 70-105 CALCIUM (BEAKER) (test kidt=301) 8.8 mg/dL 8.4-10.2 EGFR (BEAKER) (test fjyj=6855) 54 mL/min/1.73 sq m ESTIMATED GFR IS NOT ACCURATE CREATININE CLEARANCE IN PREDICTING GLOMERULAR FILTRATION RATE. ESTIMATED GFR IS NOT APPLICABLE FOR DIALYSIS PATIENTS. CBC W/PLT COUNT & AUTO [id number] 07:01:00* Test Item Value Reference Range Comments WHITE BLOOD CELL COUNT (BEAKER) (test xhgz=689) 7.8 K/ L 3.5-10.5 RED BLOOD CELL COUNT (BEAKER) (test sclf=517) 4.21 M/ L 4.63-6.08 HEMOGLOBIN (BEAKER) (test dtnc=560) 12.7 GM/DL 13.7-17.5 HEMATOCRIT (BEAKER) (test ouxt=963) 38.2 % 40.1-51.0 MEAN CORPUSCULAR VOLUME (BEAKER) (test juyq=965) 90.7 fL 79.0-92.2 MEAN CORPUSCULAR HEMOGLOBIN (BEAKER) (test qeot=838) 30.2 pg 25.7-32.2 MEAN CORPUSCULAR HEMOGLOBIN CONC (BEAKER) (test mcva=891) 33.2 GM/DL 32.3-36.5 RED CELL DISTRIBUTION WIDTH (BEAKER) (test pjnt=349) 18.3 % 11.6-14.4 PLATELET COUNT (BEAKER) (test zcgx=814) 175 K/CU MM 150-450 MEAN PLATELET VOLUME (BEAKER) (test mmdu=343) 11.3 fL 9.4-12.4 NUCLEATED RED BLOOD CELLS (BEAKER) (test mkej=110) 0 /100 WBC 0-0 NEUTROPHILS RELATIVE PERCENT (BEAKER) (test ctkf=297) 73 % LYMPHOCYTES RELATIVE PERCENT (BEAKER) (test avzn=151) 15 % MONOCYTES RELATIVE PERCENT (BEAKER) (test lcsz=329) 8 % EOSINOPHILS RELATIVE PERCENT (BEAKER) (test yugi=966) 4 % BASOPHILS RELATIVE PERCENT (BEAKER) (test oiwo=040) 0 % NEUTROPHILS ABSOLUTE COUNT (BEAKER) (test xgaf=170) 5.72 K/ L 1.78-5.38 LYMPHOCYTES ABSOLUTE COUNT (BEAKER) (test cwvf=250) 1.14 K/ L 1.32-3.57 MONOCYTES ABSOLUTE COUNT (BEAKER) (test dilt=712) 0.59 K/ L 0.30-0.82 EOSINOPHILS ABSOLUTE COUNT (BEAKER) (test cdtr=444) 0.32 K/ L 0.04-0.54 BASOPHILS ABSOLUTE COUNT (BEAKER) (test kvof=968) 0.02 K/ L 0.01-0.08 IMMATURE GRANULOCYTES-RELATIVE PERCENT (BEAKER) (test nmmv=3635) 0 % 0-1 RAD, CHEST, 2 [id number] 22:42:00Reason for exam:->Chest PainFINAL REPORT Chest, PA and lateral. History: Chest pain. Comparison: 10/02/2017. Impression:The heart is mildly enlarged, stable. 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 The lungs are clear. There is no pleural effusion or pneumothorax. Signed: Marquise Crane Verified Date/Time: 10/04/2017 22:42:49 Reading Location: [facility] [id number] Consult Reading Room -GLUCOSE METER 2017-10-04 22:07:00* Test Item Value Reference Range Comments POC-GLUCOSE METER (BEAKER) (test qpft=8161) 204 mg/dL 70-110 TESTED AT [address] [address] POCT-GLUCOSE [id number] 17:22:00* Test Item Value Reference Range Comments POC-GLUCOSE METER (BEAKER) (test dtzj=8273) 197 mg/dL 70-110 TESTED AT [address] [address] POCT-GLUCOSE [id number] 11:42:00* Test Item Value Reference Range Comments POC-GLUCOSE METER (BEAKER) (test bibt=6666) 322 mg/dL 70-110 Notified BRENDON JETT/TESTED AT [address] [address] POCT-GLUCOSE [id number] 09:58:00* Test Item Value Reference Range Comments POC-GLUCOSE METER (BEAKER) (test tjxm=3909) 219 mg/dL 70-110 TESTED AT [place] [id number] [facility] [address] DIGOXIN [id number] 04:16:00* Test Item Value Reference Range Comments DIGOXIN LEVEL (BEAKER) (test mfou=293) 0.4 ng/mL 0.8-2.0 [id number] 04:14:00* Test Item Value Reference Range Comments MAGNESIUM (BEAKER) (test gcch=598) 1.7 mg/dL 1.6-2.6 BASIC METABOLIC [id number] 04:14:00* Test Item Value Reference Range Comments SODIUM (BEAKER) (test zzye=936) 136 meq/L 136-145 POTASSIUM (BEAKER) (test pslh=592) 3.6 meq/L 3.5-5.1 CHLORIDE (BEAKER) (test qtir=844) 98 meq/L 98-107 CO2 (BEAKER) (test hbga=929) 28 meq/L 22-29 BLOOD UREA NITROGEN (BEAKER) (test ivue=629) 20 mg/dL 7-21 CREATININE (BEAKER) (test zhkn=059) 1.47 mg/dL 0.57-1.25 GLUCOSE RANDOM (BEAKER) (test mlma=763) 279 mg/dL 70-105 CALCIUM (BEAKER) (test wydo=278) 8.6 mg/dL 8.4-10.2 EGFR (BEAKER) (test xxhb=4724) 50 mL/min/1.73 sq m ESTIMATED GFR IS NOT ACCURATE CREATININE CLEARANCE IN PREDICTING GLOMERULAR FILTRATION RATE. ESTIMATED GFR IS NOT APPLICABLE FOR DIALYSIS PATIENTS. CBC W/PLT COUNT & AUTO [id number] 03:48:00* Test Item Value Reference Range Comments WHITE BLOOD CELL COUNT (BEAKER) (test bgbc=401) 6.9 K/ L 3.5-10.5 RED BLOOD CELL COUNT (BEAKER) (test zoqc=617) 3.86 M/ L 4.63-6.08 HEMOGLOBIN (BEAKER) (test stmv=597) 11.4 GM/DL 13.7-17.5 HEMATOCRIT (BEAKER) (test krwu=359) 34.2 % 40.1-51.0 MEAN CORPUSCULAR VOLUME (BEAKER) (test ojbb=257) 88.6 fL 79.0-92.2 MEAN CORPUSCULAR HEMOGLOBIN (BEAKER) (test vzak=293) 29.5 pg 25.7-32.2 MEAN CORPUSCULAR HEMOGLOBIN CONC (BEAKER) (test uwpg=719) 33.3 GM/DL 32.3-36.5 RED CELL DISTRIBUTION WIDTH (BEAKER) (test ewmj=398) 17.9 % 11.6-14.4 PLATELET COUNT (BEAKER) (test sgfa=672) 147 K/CU MM 150-450 MEAN PLATELET VOLUME (BEAKER) (test jcux=365) 10.2 fL 9.4-12.4 NUCLEATED RED BLOOD CELLS (BEAKER) (test esdt=786) 0 /100 WBC 0-0 NEUTROPHILS RELATIVE PERCENT (BEAKER) (test qelg=130) 75 % LYMPHOCYTES RELATIVE PERCENT (BEAKER) (test iyqz=137) 14 % MONOCYTES RELATIVE PERCENT (BEAKER) (test mgtt=844) 7 % EOSINOPHILS RELATIVE PERCENT (BEAKER) (test fmnh=654) 3 % BASOPHILS RELATIVE PERCENT (BEAKER) (test fdta=327) 0 % NEUTROPHILS ABSOLUTE COUNT (BEAKER) (test gynm=171) 5.15 K/ L 1.78-5.38 LYMPHOCYTES ABSOLUTE COUNT (BEAKER) (test vhhj=967) 0.95 K/ L 1.32-3.57 MONOCYTES ABSOLUTE COUNT (BEAKER) (test oybq=088) 0.50 K/ L 0.30-0.82 EOSINOPHILS ABSOLUTE COUNT (BEAKER) (test dtxh=973) 0.23 K/ L 0.04-0.54 BASOPHILS ABSOLUTE COUNT (BEAKER) (test uxcv=362) 0.03 K/ L 0.01-0.08 IMMATURE GRANULOCYTES-RELATIVE PERCENT (BEAKER) (test glpz=7204) 0 % 0-1 POCT-GLUCOSE [id number] 21:10:00* Test Item Value Reference Range Comments POC-GLUCOSE METER (BEAKER) (test lanv=4068) 187 mg/dL 70-110 TESTED AT [facility] [address] [facility] [address] POCT-GLUCOSE [id number] 17:11:00* Test Item Value Reference Range Comments POC-GLUCOSE METER (BEAKER) (test vkmo=6861) 282 mg/dL 70-110 TESTED AT [place] [id number] [facility] [address] HEMOGLOBIN [id number] 13:27:00* Test Item Value Reference Range Comments HEMOGLOBIN A1C (BEAKER) (test qicn=724) 10.0 % 4.3-6.1 B-TYPE NATRIURETIC FACTOR (BNP)2017-10-03 13:08:00* Test Item Value Reference Range Comments B-TYPE NATRIURETIC PEPTIDE (BEAKER) (test yipb=551) 2558 pg/mL 0-100 [id number] 13:03:00* Test Item Value Reference Range Comments MAGNESIUM (BEAKER) (test clhq=215) 1.8 mg/dL 1.6-2.6 BASIC METABOLIC [id number] 13:03:00* Test Item Value Reference Range Comments SODIUM (BEAKER) (test huui=940) 139 meq/L 136-145 POTASSIUM (BEAKER) (test vhxj=092) 3.7 meq/L 3.5-5.1 CHLORIDE (BEAKER) (test schm=322) 101 meq/L 98-107 CO2 (BEAKER) (test buui=127) 29 meq/L 22-29 BLOOD UREA NITROGEN (BEAKER) (test nwga=707) 15 mg/dL 7-21 CREATININE (BEAKER) (test dalf=328) 1.43 mg/dL 0.57-1.25 GLUCOSE RANDOM (BEAKER) (test uors=359) 233 mg/dL 70-105 CALCIUM (BEAKER) (test ubrc=780) 8.8 mg/dL 8.4-10.2 EGFR (BEAKER) (test cvkn=5939) 52 mL/min/1.73 sq m ESTIMATED GFR IS NOT ACCURATE CREATININE CLEARANCE IN PREDICTING GLOMERULAR FILTRATION RATE. ESTIMATED GFR IS NOT APPLICABLE FOR DIALYSIS PATIENTS. CBC W/PLT COUNT & AUTO [id number] 12:51:00* Test Item Value Reference Range Comments WHITE BLOOD CELL COUNT (BEAKER) (test flzx=892) 7.4 K/ L 3.5-10.5 RED BLOOD CELL COUNT (BEAKER) (test czpg=057) 4.06 M/ L 4.63-6.08 HEMOGLOBIN (BEAKER) (test dwty=256) 11.9 GM/DL 13.7-17.5 HEMATOCRIT (BEAKER) (test qcxu=685) 36.6 % 40.1-51.0 MEAN CORPUSCULAR VOLUME (BEAKER) (test nypi=699) 90.1 fL 79.0-92.2 MEAN CORPUSCULAR HEMOGLOBIN (BEAKER) (test pjzb=042) 29.3 pg 25.7-32.2 MEAN CORPUSCULAR HEMOGLOBIN CONC (BEAKER) (test iwtr=199) 32.5 GM/DL 32.3-36.5 RED CELL DISTRIBUTION WIDTH (BEAKER) (test jdfl=879) 19.0 % 11.6-14.4 PLATELET COUNT (BEAKER) (test bwjq=403) 146 K/CU MM 150-450 MEAN PLATELET VOLUME (BEAKER) (test tdrw=613) 10.4 fL 9.4-12.4 NUCLEATED RED BLOOD CELLS (BEAKER) (test mfmj=145) 1 /100 WBC 0-0 NEUTROPHILS RELATIVE PERCENT (BEAKER) (test kfvc=331) 80 % LYMPHOCYTES RELATIVE PERCENT (BEAKER) (test tqow=269) 12 % MONOCYTES RELATIVE PERCENT (BEAKER) (test iflx=975) 6 % EOSINOPHILS RELATIVE PERCENT (BEAKER) (test obmr=759) 2 % BASOPHILS RELATIVE PERCENT (BEAKER) (test sxri=856) 0 % NEUTROPHILS ABSOLUTE COUNT (BEAKER) (test uogb=401) 5.91 K/ L 1.78-5.38 LYMPHOCYTES ABSOLUTE COUNT (BEAKER) (test pbbq=384) 0.88 K/ L 1.32-3.57 MONOCYTES ABSOLUTE COUNT (BEAKER) (test elad=270) 0.42 K/ L 0.30-0.82 EOSINOPHILS ABSOLUTE COUNT (BEAKER) (test sdym=838) 0.14 K/ L 0.04-0.54 BASOPHILS ABSOLUTE COUNT (BEAKER) (test hccr=885) 0.03 K/ L 0.01-0.08 IMMATURE GRANULOCYTES-RELATIVE PERCENT (BEAKER) (test ezfr=5323) 1 % 0-1 POCT-GLUCOSE [id number] 10:59:00* Test Item Value Reference Range Comments POC-GLUCOSE METER (BEAKER) (test wqny=7322) 249 mg/dL 70-110 [address]ED AT [address] [address] POCT-GLUCOSE [id number] 06:55:00* Test Item Value Reference Range Comments POC-GLUCOSE METER (BEAKER) (test pfkd=4976) 238 mg/dL 70-110 TESTED AT [address] [address] CREATINE KINASE (CK), TOTAL AND [id number] 22:47:00* Test Item Value Reference Range Comments CREATINE KINASE TOTAL (BEAKER) (test pmaj=736) 203 U/L 29-200 CREATINE KINASE-MB (BEAKER) (test xjqp=434) 2.1 ng/mL 0.0-6.6 CREATINE KINASE-MB INDEX (BEAKER) (test huhv=324) 1.0 % CK-MB Reference Range:<6.7 Normal6.7-10.0 Borderline>10.0 Abnormal TROPONIN [id number] 22:47:00* Test Item Value Reference Range Comments TROPONIN I (BEAKER) (test zakp=612) 0.02 ng/mL 0.00-0.03 Troponin I (TnI) levels must be interpreted in the context of the presenting sym ptoms and the clinical findings. Elevated TnI levels indicate myocardial damage, but are not specific for ischemic heart disease. Elevated TnI levels are seen in patients with other cardiac conditions (including myocarditis and congestive h eart failure), and slight TnI elevations occur in patients with other conditions , including sepsis, renal failure, acidosis, acute neurological disease, and per sistent tachyarrhythmia.B-TYPE NATRIURETIC FACTOR (BNP)2017-10-02 22:47:00* Test Item Value Reference Range Comments B-TYPE NATRIURETIC PEPTIDE (BEAKER) (test xhmd=956) 2506 pg/mL 0-100 RAD, CHEST, 1 VIEW, NON [id number] 22:47:00Reason for exam:->CHEST PAINFINAL REPORT Chest, single frontal view History: Chest pain Comparison: 01/26/2017 IMPRESSION: There is mild cardiomegaly. 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 Mild interstitial prominence is present bilaterally which may reflect a component of edema. Duration, sizable pleural effusion, or pneumot horax. Signed: Marquise Crane MDReport Verified Date/Time: 10/02/2017 22:47:11 Reading Location: [facility] B1 [id number] Consult Reading Room [id number] 22:39:00* Test Item Value Reference Range Comments MAGNESIUM (BEAKER) (test xunb=331) 2.1 mg/dL 1.6-2.6 BASIC METABOLIC [id number] 22:39:00* Test Item Value Reference Range Comments SODIUM (BEAKER) (test hmea=912) 140 meq/L 136-145 POTASSIUM (BEAKER) (test igrw=734) 4.2 meq/L 3.5-5.1 CHLORIDE (BEAKER) (test wgep=484) 106 meq/L 98-107 CO2 (BEAKER) (test lapi=570) 26 meq/L 22-29 BLOOD UREA NITROGEN (BEAKER) (test aqiv=088) 15 mg/dL 7-21 CREATININE (BEAKER) (test rwjf=204) 1.37 mg/dL 0.57-1.25 GLUCOSE RANDOM (BEAKER) (test yagp=500) 139 mg/dL 70-105 CALCIUM (BEAKER) (test csjr=986) 8.6 mg/dL 8.4-10.2 EGFR (BEAKER) (test sjod=7413) 54 mL/min/1.73 sq m ESTIMATED GFR IS NOT ACCURATE CREATININE CLEARANCE IN PREDICTING GLOMERULAR FILTRATION RATE. ESTIMATED GFR IS NOT APPLICABLE FOR DIALYSIS PATIENTS. [id number] 22:36:00* Test Item Value Reference Range Comments PROTIME (BEAKER) (test nehw=081) 21.8 seconds 11.7-14.7 INR (BEAKER) (test hujd=063) 1.9 <=5.9 PARTIAL THROMBOPLASTIN TIME (BEAKER) (test dazd=709) 36.6 seconds 22.5-36.0 RECOMMENDED COUMADIN/WARFARIN INR THERAPY RANGESSTANDARD DOSE: 2.0 - 3.0 Inclu rianna: PROPHYLAXIS for venous thrombosis, systemic embolization; TREATMENT for danii ous thrombosis and/or pulmonary embolus.HIGH RISK: Target INR is 2.5-3.5 for pat ients with mechanical heart valves.CBC W/PLT COUNT & AUTO [id number] 22:26:00* Test Item Value Reference Range Comments WHITE BLOOD CELL COUNT (BEAKER) (test vlnf=672) 7.9 K/ L 3.5-10.5 RED BLOOD CELL COUNT (BEAKER) (test koiz=757) 4.29 M/ L 4.63-6.08 HEMOGLOBIN (BEAKER) (test dpit=894) 12.5 GM/DL 13.7-17.5 HEMATOCRIT (BEAKER) (test lurc=179) 39.4 % 40.1-51.0 MEAN CORPUSCULAR VOLUME (BEAKER) (test guqm=955) 91.8 fL 79.0-92.2 MEAN CORPUSCULAR HEMOGLOBIN (BEAKER) (test hgzd=420) 29.1 pg 25.7-32.2 MEAN CORPUSCULAR HEMOGLOBIN CONC (BEAKER) (test zbja=003) 31.7 GM/DL 32.3-36.5 RED CELL DISTRIBUTION WIDTH (BEAKER) (test mtlq=873) 18.4 % 11.6-14.4 PLATELET COUNT (BEAKER) (test loee=291) 166 K/CU MM 150-450 MEAN PLATELET VOLUME (BEAKER) (test arjp=445) 10.0 fL 9.4-12.4 NUCLEATED RED BLOOD CELLS (BEAKER) (test jtfy=513) 1 /100 WBC 0-0 NEUTROPHILS RELATIVE PERCENT (BEAKER) (test lpfz=636) 78 % LYMPHOCYTES RELATIVE PERCENT (BEAKER) (test wdcl=873) 13 % MONOCYTES RELATIVE PERCENT (BEAKER) (test keje=272) 6 % EOSINOPHILS RELATIVE PERCENT (BEAKER) (test xbra=800) 2 % BASOPHILS RELATIVE PERCENT (BEAKER) (test gwdj=874) 0 % NEUTROPHILS ABSOLUTE COUNT (BEAKER) (test kmat=376) 6.13 K/ L 1.78-5.38 LYMPHOCYTES ABSOLUTE COUNT (BEAKER) (test hrli=909) 1.04 K/ L 1.32-3.57 MONOCYTES ABSOLUTE COUNT (BEAKER) (test onuj=855) 0.50 K/ L 0.30-0.82 EOSINOPHILS ABSOLUTE COUNT (BEAKER) (test wrpd=449) 0.14 K/ L 0.04-0.54 BASOPHILS ABSOLUTE COUNT (BEAKER) (test ssxe=336) 0.02 K/ L 0.01-0.08 IMMATURE GRANULOCYTES-RELATIVE PERCENT (BEAKER) (test qqox=1180) 0 % 0-1 HEMOGLOBIN [id number] 13:33:00* Test Item Value Reference Range Comments HEMOGLOBIN A1C (BEAKER) (test zuqw=713) 8.8 % 4.3-6.1 B-TYPE NATRIURETIC FACTOR (BNP)2017-09-18 10:46:00* Test Item Value Reference Range Comments B-TYPE NATRIURETIC PEPTIDE (BEAKER) (test sope=007) 232 pg/mL 0-100 BASIC METABOLIC [id number] 10:37:00* Test Item Value Reference Range Comments SODIUM (BEAKER) (test oojx=905) 135 meq/L 136-145 POTASSIUM (BEAKER) (test gujp=836) 4.3 meq/L 3.5-5.1 CHLORIDE (BEAKER) (test yebo=363) 96 meq/L 98-107 CO2 (BEAKER) (test qlnl=910) 29 meq/L 22-29 BLOOD UREA NITROGEN (BEAKER) (test gsta=539) 41 mg/dL 7-21 CREATININE (BEAKER) (test rovc=548) 2.00 mg/dL 0.57-1.25 GLUCOSE RANDOM (BEAKER) (test xpmo=970) 262 mg/dL 70-105 CALCIUM (BEAKER) (test kukh=167) 9.5 mg/dL 8.4-10.2 EGFR (BEAKER) (test paqz=7382) 35 mL/min/1.73 sq m ESTIMATED GFR IS NOT ACCURATE CREATININE CLEARANCE IN PREDICTING GLOMERULAR FILTRATION RATE. ESTIMATED GFR IS NOT APPLICABLE FOR DIALYSIS PATIENTS. CBC W/PLT COUNT & AUTO [id number] 10:19:00* Test Item Value Reference Range Comments WHITE BLOOD CELL COUNT (BEAKER) (test ixoh=645) 7.2 K/ L 3.5-10.5 RED BLOOD CELL COUNT (BEAKER) (test emsn=523) 5.26 M/ L 4.63-6.08 HEMOGLOBIN (BEAKER) (test uhvi=709) 15.3 GM/DL 13.7-17.5 HEMATOCRIT (BEAKER) (test niow=757) 44.8 % 40.1-51.0 MEAN CORPUSCULAR VOLUME (BEAKER) (test wjjx=418) 85.2 fL 79.0-92.2 MEAN CORPUSCULAR HEMOGLOBIN (BEAKER) (test igkp=999) 29.1 pg 25.7-32.2 MEAN CORPUSCULAR HEMOGLOBIN CONC (BEAKER) (test uvkj=547) 34.2 GM/DL 32.3-36.5 RED CELL DISTRIBUTION WIDTH (BEAKER) (test eyku=926) 14.6 % 11.6-14.4 PLATELET COUNT (BEAKER) (test yjda=792) 185 K/CU MM 150-450 MEAN PLATELET VOLUME (BEAKER) (test gptl=004) 9.8 fL 9.4-12.4 NUCLEATED RED BLOOD CELLS (BEAKER) (test yqzo=304) 0 /100 WBC 0-0 NEUTROPHILS RELATIVE PERCENT (BEAKER) (test pxdx=291) 71 % LYMPHOCYTES RELATIVE PERCENT (BEAKER) (test tgci=085) 16 % MONOCYTES RELATIVE PERCENT (BEAKER) (test pofn=057) 10 % EOSINOPHILS RELATIVE PERCENT (BEAKER) (test ypbi=520) 3 % BASOPHILS RELATIVE PERCENT (BEAKER) (test wjlc=971) 0 % NEUTROPHILS ABSOLUTE COUNT (BEAKER) (test abiz=431) 5.13 K/ L 1.78-5.38 LYMPHOCYTES ABSOLUTE COUNT (BEAKER) (test mkrm=949) 1.15 K/ L 1.32-3.57 MONOCYTES ABSOLUTE COUNT (BEAKER) (test muwa=161) 0.70 K/ L 0.30-0.82 EOSINOPHILS ABSOLUTE COUNT (BEAKER) (test otne=228) 0.18 K/ L 0.04-0.54 BASOPHILS ABSOLUTE COUNT (BEAKER) (test zelw=348) 0.03 K/ L 0.01-0.08 IMMATURE GRANULOCYTES-RELATIVE PERCENT (BEAKER) (test xunu=7742) 0 % 0-1 LIPID [id number] 11:12:00* Test Item Value Reference Range Comments TRIGLYCERIDES (BEAKER) (test jinp=100) 249 mg/dL CHOLESTEROL (BEAKER) (test tzum=031) 153 mg/dL HDL CHOLESTEROL (BEAKER) (test tsam=138) 31 mg/dL LDL CHOLESTEROL CALCULATED (BEAKER) (test qaxd=562) 72 mg/dL Triglyceride Reference Range: Low Risk <150 Borderline 150-199 High Risk 200-499 Very High Risk >=500Cholesterol Reference Range: Low Risk <200 Borderline 200-239 High Risk >240HDL Cholesterol Reference Range: Low Risk >=60 High Risk <40LDL Cholesterol Reference Range: Optimal <100 Near Optimal 100-129 Borderline 130-159 High 160-189 Very High >=190 BASIC METABOLIC [id number] 11:12:00* Test Item Value Reference Range Comments SODIUM (BEAKER) (test kehx=727) 137 meq/L 136-145 POTASSIUM (BEAKER) (test gfba=024) 3.6 meq/L 3.5-5.1 CHLORIDE (BEAKER) (test uqqn=840) 94 meq/L 98-107 CO2 (BEAKER) (test cihy=510) 31 meq/L 22-29 BLOOD UREA NITROGEN (BEAKER) (test ojuf=467) 25 mg/dL 7-21 CREATININE (BEAKER) (test txsq=419) 1.90 mg/dL 0.57-1.25 GLUCOSE RANDOM (BEAKER) (test vbxy=791) 266 mg/dL 70-105 CALCIUM (BEAKER) (test trju=010) 9.5 mg/dL 8.4-10.2 EGFR (BEAKER) (test duub=0981) 37 mL/min/1.73 sq m ESTIMATED GFR IS NOT ACCURATE CREATININE CLEARANCE IN PREDICTING GLOMERULAR FILTRATION RATE. ESTIMATED GFR IS NOT APPLICABLE FOR DIALYSIS PATIENTS. HEPATIC FUNCTION [id number] 11:12:00* Test Item Value Reference Range Comments TOTAL PROTEIN (BEAKER) (test krqu=460) 8.3 gm/dL 6.0-8.3 ALBUMIN (BEAKER) (test fula=9647) 4.6 g/dL 3.5-5.0 BILIRUBIN TOTAL (BEAKER) (test mjfr=088) 0.7 mg/dL 0.2-1.2 BILIRUBIN DIRECT (BEAKER) (test gqnp=272) 0.3 mg/dL 0.1-0.5 ALKALINE PHOSPHATASE (BEAKER) (test gqlt=824) 142 U/L 40-150 AST (SGOT) (BEAKER) (test fjfm=673) 23 U/L 5-34 ALT (SGPT) (BEAKER) (test ficy=866) 19 U/L 6-55 B-TYPE NATRIURETIC FACTOR (BNP)2017-07-24 11:12:00* Test Item Value Reference Range Comments B-TYPE NATRIURETIC PEPTIDE (BEAKER) (test kfor=564) 317 pg/mL 0-100 CBC W/PLT COUNT & AUTO [id number] 10:55:00* Test Item Value Reference Range Comments WHITE BLOOD CELL COUNT (BEAKER) (test mlad=816) 7.9 K/ L 3.5-10.5 RED BLOOD CELL COUNT (BEAKER) (test zffy=538) 5.72 M/ L 4.63-6.08 HEMOGLOBIN (BEAKER) (test ohig=830) 16.5 GM/DL 13.7-17.5 HEMATOCRIT (BEAKER) (test ebul=666) 50.2 % 40.1-51.0 MEAN CORPUSCULAR VOLUME (BEAKER) (test etme=112) 87.8 fL 79.0-92.2 MEAN CORPUSCULAR HEMOGLOBIN (BEAKER) (test buqz=565) 28.8 pg 25.7-32.2 MEAN CORPUSCULAR HEMOGLOBIN CONC (BEAKER) (test fiqt=586) 32.9 GM/DL 32.3-36.5 RED CELL DISTRIBUTION WIDTH (BEAKER) (test bvsq=878) 13.2 % 11.6-14.4 PLATELET COUNT (BEAKER) (test lhmc=595) 190 K/CU MM 150-450 MEAN PLATELET VOLUME (BEAKER) (test dpxa=247) 10.5 fL 9.4-12.4 NUCLEATED RED BLOOD CELLS (BEAKER) (test rjtx=138) 0 /100 WBC 0-0 NEUTROPHILS RELATIVE PERCENT (BEAKER) (test rmwz=172) 72 % LYMPHOCYTES RELATIVE PERCENT (BEAKER) (test lxer=267) 14 % MONOCYTES RELATIVE PERCENT (BEAKER) (test pvxt=345) 9 % EOSINOPHILS RELATIVE PERCENT (BEAKER) (test hpvf=307) 4 % BASOPHILS RELATIVE PERCENT (BEAKER) (test pdnp=344) 0 % NEUTROPHILS ABSOLUTE COUNT (BEAKER) (test hiqc=761) 5.67 K/ L 1.78-5.38 LYMPHOCYTES ABSOLUTE COUNT (BEAKER) (test vxry=274) 1.10 K/ L 1.32-3.57 MONOCYTES ABSOLUTE COUNT (BEAKER) (test boce=696) 0.74 K/ L 0.30-0.82 EOSINOPHILS ABSOLUTE COUNT (BEAKER) (test awrs=652) 0.34 K/ L 0.04-0.54 BASOPHILS ABSOLUTE COUNT (BEAKER) (test rbpk=264) 0.02 K/ L 0.01-0.08 IMMATURE GRANULOCYTES-RELATIVE PERCENT (BEAKER) (test cwxb=0507) 0 % 0-1 CBC W/PLT COUNT & AUTO [id number] 10:57:00* Test Item Value Reference Range Comments WHITE BLOOD CELL COUNT (BEAKER) (test kbkq=614) 10.1 K/ L 3.5-10.5 RED BLOOD CELL COUNT (BEAKER) (test lrcx=466) 4.20 M/ L 4.63-6.08 HEMOGLOBIN (BEAKER) (test augn=272) 13.0 GM/DL 13.7-17.5 HEMATOCRIT (BEAKER) (test oqmf=623) 40.5 % 40.1-51.0 MEAN CORPUSCULAR VOLUME (BEAKER) (test icmr=548) 96.4 fL 79.0-92.2 MEAN CORPUSCULAR HEMOGLOBIN (BEAKER) (test yfpn=083) 31.0 pg 25.7-32.2 MEAN CORPUSCULAR HEMOGLOBIN CONC (BEAKER) (test lcxk=518) 32.1 GM/DL 32.3-36.5 RED CELL DISTRIBUTION WIDTH (BEAKER) (test wwzy=971) 14.1 % 11.6-14.4 PLATELET COUNT (BEAKER) (test scsj=116) 176 K/CU MM 150-450 MEAN PLATELET VOLUME (BEAKER) (test shgx=331) 10.3 fL 9.4-12.4 NUCLEATED RED BLOOD CELLS (BEAKER) (test jyyk=803) 0 /100 WBC 0-0 NEUTROPHILS RELATIVE PERCENT (BEAKER) (test wjgk=377) 80 % LYMPHOCYTES RELATIVE PERCENT (BEAKER) (test fsrj=656) 10 % MONOCYTES RELATIVE PERCENT (BEAKER) (test tsop=603) 6 % EOSINOPHILS RELATIVE PERCENT (BEAKER) (test hbez=643) 3 % BASOPHILS RELATIVE PERCENT (BEAKER) (test sian=561) 0 % NEUTROPHILS ABSOLUTE COUNT (BEAKER) (test ewnu=403) 8.09 K/ L 1.78-5.38 LYMPHOCYTES ABSOLUTE COUNT (BEAKER) (test fcin=804) 1.02 K/ L 1.32-3.57 MONOCYTES ABSOLUTE COUNT (BEAKER) (test nawz=594) 0.61 K/ L 0.30-0.82 EOSINOPHILS ABSOLUTE COUNT (BEAKER) (test sqdl=152) 0.27 K/ L 0.04-0.54 BASOPHILS ABSOLUTE COUNT (BEAKER) (test ljet=925) 0.04 K/ L 0.01-0.08 IMMATURE GRANULOCYTES-RELATIVE PERCENT (BEAKER) (test pzsf=2878) 1 % 0-1 B-TYPE NATRIURETIC FACTOR (BNP)2017-06-19 10:51:00* Test Item Value Reference Range Comments B-TYPE NATRIURETIC PEPTIDE (BEAKER) (test mjlo=053) 1737 pg/mL 0-100 BASIC METABOLIC [id number] 10:46:00* Test Item Value Reference Range Comments SODIUM (BEAKER) (test dvja=043) 138 meq/L 136-145 POTASSIUM (BEAKER) (test poei=646) 4.1 meq/L 3.5-5.1 CHLORIDE (BEAKER) (test obau=614) 99 meq/L 98-107 CO2 (BEAKER) (test qxvk=908) 28 meq/L 22-29 BLOOD UREA NITROGEN (BEAKER) (test lixk=009) 33 mg/dL 7-21 CREATININE (BEAKER) (test lmud=995) 1.61 mg/dL 0.57-1.25 GLUCOSE RANDOM (BEAKER) (test cini=908) 209 mg/dL 70-105 CALCIUM (BEAKER) (test kmqz=742) 8.7 mg/dL 8.4-10.2 EGFR (BEAKER) (test rswx=8799) 45 mL/min/1.73 sq m ESTIMATED GFR IS NOT ACCURATE CREATININE CLEARANCE IN PREDICTING GLOMERULAR FILTRATION RATE. ESTIMATED GFR IS NOT APPLICABLE FOR DIALYSIS PATIENTS. BASIC METABOLIC [id number] 12:11:00* Test Item Value Reference Range Comments SODIUM (BEAKER) (test leuq=483) 138 meq/L 136-145 POTASSIUM (BEAKER) (test xywr=280) 4.2 meq/L 3.5-5.1 Specimen slightly hemolyzed CHLORIDE (BEAKER) (test mwro=751) 100 meq/L 98-107 CO2 (BEAKER) (test swwq=296) 27 meq/L 22-29 BLOOD UREA NITROGEN (BEAKER) (test epou=219) 26 mg/dL 7-21 CREATININE (BEAKER) (test xwoq=552) 1.88 mg/dL 0.57-1.25 Specimen slightly hemolyzed GLUCOSE RANDOM (BEAKER) (test duiv=266) 160 mg/dL 70-105 CALCIUM (BEAKER) (test ehny=911) 8.4 mg/dL 8.4-10.2 EGFR (BEAKER) (test guvp=8798) 38 mL/min/1.73 sq m ESTIMATED GFR IS NOT ACCURATE CREATININE CLEARANCE IN PREDICTING GLOMERULAR FILTRATION RATE. ESTIMATED GFR IS NOT APPLICABLE FOR DIALYSIS PATIENTS. B-TYPE NATRIURETIC FACTOR (BNP)2017-05-22 12:10:00* Test Item Value Reference Range Comments B-TYPE NATRIURETIC PEPTIDE (BEAKER) (test qlcg=698) 349 pg/mL 0-100 CBC W/PLT COUNT & AUTO [id number] 11:37:00* Test Item Value Reference Range Comments WHITE BLOOD CELL COUNT (BEAKER) (test tyxj=522) 6.4 K/ L 3.5-10.5 RED BLOOD CELL COUNT (BEAKER) (test wtig=225) 4.47 M/ L 4.63-6.08 HEMOGLOBIN (BEAKER) (test eeyj=266) 14.4 GM/DL 13.7-17.5 HEMATOCRIT (BEAKER) (test nlgt=125) 43.1 % 40.1-51.0 MEAN CORPUSCULAR VOLUME (BEAKER) (test ztzf=860) 96.4 fL 79.0-92.2 MEAN CORPUSCULAR HEMOGLOBIN (BEAKER) (test ynhd=402) 32.2 pg 25.7-32.2 MEAN CORPUSCULAR HEMOGLOBIN CONC (BEAKER) (test gjpa=906) 33.4 GM/DL 32.3-36.5 RED CELL DISTRIBUTION WIDTH (BEAKER) (test riwd=250) 13.5 % 11.6-14.4 PLATELET COUNT (BEAKER) (test aruy=912) 182 K/CU MM 150-450 MEAN PLATELET VOLUME (BEAKER) (test tatb=998) 9.9 fL 9.4-12.4 NUCLEATED RED BLOOD CELLS (BEAKER) (test eoxz=659) 0 /100 WBC 0-0 NEUTROPHILS RELATIVE PERCENT (BEAKER) (test cvzt=578) 63 % LYMPHOCYTES RELATIVE PERCENT (BEAKER) (test onrv=609) 18 % MONOCYTES RELATIVE PERCENT (BEAKER) (test okdb=557) 15 % EOSINOPHILS RELATIVE PERCENT (BEAKER) (test puom=612) 4 % BASOPHILS RELATIVE PERCENT (BEAKER) (test dpbv=081) 1 % NEUTROPHILS ABSOLUTE COUNT (BEAKER) (test jile=700) 4.03 K/ L 1.78-5.38 LYMPHOCYTES ABSOLUTE COUNT (BEAKER) (test xlla=772) 1.17 K/ L 1.32-3.57 MONOCYTES ABSOLUTE COUNT (BEAKER) (test zxuj=529) 0.93 K/ L 0.30-0.82 EOSINOPHILS ABSOLUTE COUNT (BEAKER) (test lwtm=803) 0.25 K/ L 0.04-0.54 BASOPHILS ABSOLUTE COUNT (BEAKER) (test iler=964) 0.03 K/ L 0.01-0.08 IMMATURE GRANULOCYTES-RELATIVE PERCENT (BEAKER) (test bsjf=1521) 0 % 0-1 BASIC METABOLIC [id number] 12:48:00* Test Item Value Reference Range Comments SODIUM (BEAKER) (test gyas=370) 136 meq/L 136-145 POTASSIUM (BEAKER) (test depq=712) 4.3 meq/L 3.5-5.1 CHLORIDE (BEAKER) (test bftl=659) 101 meq/L 98-107 CO2 (BEAKER) (test zfzf=730) 27 meq/L 22-29 BLOOD UREA NITROGEN (BEAKER) (test ssoy=118) 29 mg/dL 7-21 CREATININE (BEAKER) (test uhnz=882) 1.46 mg/dL 0.57-1.25 GLUCOSE RANDOM (BEAKER) (test nfel=367) 210 mg/dL 70-105 CALCIUM (BEAKER) (test tuml=771) 8.9 mg/dL 8.4-10.2 EGFR (BEAKER) (test qtie=2277) 51 mL/min/1.73 sq m ESTIMATED GFR IS NOT ACCURATE CREATININE CLEARANCE IN PREDICTING GLOMERULAR FILTRATION RATE. ESTIMATED GFR IS NOT APPLICABLE FOR DIALYSIS PATIENTS. B-TYPE NATRIURETIC FACTOR (BNP)2017-04-24 12:27:00* Test Item Value Reference Range Comments B-TYPE NATRIURETIC PEPTIDE (BEAKER) (test osod=755) 1208 pg/mL 0-100 CBC W/PLT COUNT & AUTO [id number] 11:55:00* Test Item Value Reference Range Comments WHITE BLOOD CELL COUNT (BEAKER) (test ozls=189) 8.5 K/ L 3.5-10.5 RED BLOOD CELL COUNT (BEAKER) (test nqwx=730) 3.76 M/ L 4.63-6.08 HEMOGLOBIN (BEAKER) (test enza=469) 11.7 GM/DL 13.7-17.5 HEMATOCRIT (BEAKER) (test rsns=425) 34.0 % 40.1-51.0 MEAN CORPUSCULAR VOLUME (BEAKER) (test qpiz=832) 90.4 fL 79.0-92.2 MEAN CORPUSCULAR HEMOGLOBIN (BEAKER) (test olxt=843) 31.1 pg 25.7-32.2 MEAN CORPUSCULAR HEMOGLOBIN CONC (BEAKER) (test yjda=046) 34.4 GM/DL 32.3-36.5 RED CELL DISTRIBUTION WIDTH (BEAKER) (test grav=263) 17.2 % 11.6-14.4 PLATELET COUNT (BEAKER) (test lbgn=259) 150 K/CU MM 150-450 MEAN PLATELET VOLUME (BEAKER) (test nyjl=691) 9.8 fL 9.4-12.4 NUCLEATED RED BLOOD CELLS (BEAKER) (test jybe=975) 0 /100 WBC 0-0 NEUTROPHILS RELATIVE PERCENT (BEAKER) (test rzox=089) 75 % LYMPHOCYTES RELATIVE PERCENT (BEAKER) (test picq=003) 12 % MONOCYTES RELATIVE PERCENT (BEAKER) (test firj=703) 9 % EOSINOPHILS RELATIVE PERCENT (BEAKER) (test onbc=759) 4 % BASOPHILS RELATIVE PERCENT (BEAKER) (test nsve=842) 0 % NEUTROPHILS ABSOLUTE COUNT (BEAKER) (test hhlc=285) 6.35 K/ L 1.78-5.38 LYMPHOCYTES ABSOLUTE COUNT (BEAKER) (test eszo=261) 1.05 K/ L 1.32-3.57 MONOCYTES ABSOLUTE COUNT (BEAKER) (test tnip=457) 0.74 K/ L 0.30-0.82 EOSINOPHILS ABSOLUTE COUNT (BEAKER) (test dapj=730) 0.30 K/ L 0.04-0.54 BASOPHILS ABSOLUTE COUNT (BEAKER) (test mqem=332) 0.02 K/ L 0.01-0.08 IMMATURE GRANULOCYTES-RELATIVE PERCENT (BEAKER) (test rnce=9792) 1 % 0-1 BASIC METABOLIC [id number] 13:13:00* Test Item Value Reference Range Comments SODIUM (BEAKER) (test gskw=979) 134 meq/L 136-145 POTASSIUM (BEAKER) (test oldl=135) 3.9 meq/L 3.5-5.1 CHLORIDE (BEAKER) (test kmmk=766) 92 meq/L 98-107 CO2 (BEAKER) (test srlu=792) 30 meq/L 22-29 BLOOD UREA NITROGEN (BEAKER) (test sdft=567) 58 mg/dL 7-21 CREATININE (BEAKER) (test nnsh=792) 2.79 mg/dL 0.57-1.25 GLUCOSE RANDOM (BEAKER) (test lymw=228) 154 mg/dL 70-105 CALCIUM (BEAKER) (test ilbk=656) 8.9 mg/dL 8.4-10.2 EGFR (BEAKER) (test zctk=2142) 24 mL/min/1.73 sq m ESTIMATED GFR IS NOT ACCURATE CREATININE CLEARANCE IN PREDICTING GLOMERULAR FILTRATION RATE. ESTIMATED GFR IS NOT APPLICABLE FOR DIALYSIS PATIENTS. B-TYPE NATRIURETIC FACTOR (BNP)2017-04-03 13:03:00* Test Item Value Reference Range Comments B-TYPE NATRIURETIC PEPTIDE (BEAKER) (test kgay=340) 75 pg/mL 0-100 CBC W/PLT COUNT & AUTO [id number] 11:02:00* Test Item Value Reference Range Comments WHITE BLOOD CELL COUNT (BEAKER) (test yetq=169) 7.2 K/ L 3.5-10.5 RED BLOOD CELL COUNT (BEAKER) (test gqis=309) 4.57 M/ L 4.63-6.08 HEMOGLOBIN (BEAKER) (test aiix=141) 13.4 GM/DL 13.7-17.5 HEMATOCRIT (BEAKER) (test ohdz=705) 38.7 % 40.1-51.0 MEAN CORPUSCULAR VOLUME (BEAKER) (test ewwj=041) 84.7 fL 79.0-92.2 MEAN CORPUSCULAR HEMOGLOBIN (BEAKER) (test pxzl=701) 29.3 pg 25.7-32.2 MEAN CORPUSCULAR HEMOGLOBIN CONC (BEAKER) (test oqbc=330) 34.6 GM/DL 32.3-36.5 RED CELL DISTRIBUTION WIDTH (BEAKER) (test imsy=710) 16.3 % 11.6-14.4 PLATELET COUNT (BEAKER) (test rhfy=666) 191 K/CU MM 150-450 MEAN PLATELET VOLUME (BEAKER) (test gnlb=161) 9.8 fL 9.4-12.4 NUCLEATED RED BLOOD CELLS (BEAKER) (test ccbm=231) 0 /100 WBC 0-0 NEUTROPHILS RELATIVE PERCENT (BEAKER) (test wuve=996) 66 % LYMPHOCYTES RELATIVE PERCENT (BEAKER) (test ycoy=708) 18 % MONOCYTES RELATIVE PERCENT (BEAKER) (test hphf=105) 13 % EOSINOPHILS RELATIVE PERCENT (BEAKER) (test lbtq=557) 3 % BASOPHILS RELATIVE PERCENT (BEAKER) (test wfmp=648) 0 % NEUTROPHILS ABSOLUTE COUNT (BEAKER) (test dtso=430) 4.79 K/ L 1.78-5.38 LYMPHOCYTES ABSOLUTE COUNT (BEAKER) (test ndht=953) 1.27 K/ L 1.32-3.57 MONOCYTES ABSOLUTE COUNT (BEAKER) (test cnrt=766) 0.91 K/ L 0.30-0.82 EOSINOPHILS ABSOLUTE COUNT (BEAKER) (test xksb=490) 0.21 K/ L 0.04-0.54 BASOPHILS ABSOLUTE COUNT (BEAKER) (test csbd=397) 0.03 K/ L 0.01-0.08 IMMATURE GRANULOCYTES-RELATIVE PERCENT (BEAKER) (test hmai=1730) 0 % 0-1 B-TYPE NATRIURETIC FACTOR (BNP)2017-02-20 10:45:00* Test Item Value Reference Range Comments B-TYPE NATRIURETIC PEPTIDE (BEAKER) (test wecv=302) 262 pg/mL 0-100 CBC W/PLT COUNT & AUTO [id number] 10:22:00* Test Item Value Reference Range Comments WHITE BLOOD CELL COUNT (BEAKER) (test bwuq=902) 10.0 K/ L 3.5-10.5 RED BLOOD CELL COUNT (BEAKER) (test olnc=748) 6.02 M/ L 4.63-6.08 HEMOGLOBIN (BEAKER) (test yuih=378) 17.2 GM/DL 13.7-17.5 HEMATOCRIT (BEAKER) (test smai=464) 51.1 % 40.1-51.0 MEAN CORPUSCULAR VOLUME (BEAKER) (test mynk=170) 84.9 fL 79.0-92.2 MEAN CORPUSCULAR HEMOGLOBIN (BEAKER) (test ehqz=275) 28.6 pg 25.7-32.2 MEAN CORPUSCULAR HEMOGLOBIN CONC (BEAKER) (test erxi=951) 33.7 GM/DL 32.3-36.5 RED CELL DISTRIBUTION WIDTH (BEAKER) (test lvpa=110) 13.7 % 11.6-14.4 PLATELET COUNT (BEAKER) (test qbla=977) 207 K/CU MM 150-450 MEAN PLATELET VOLUME (BEAKER) (test yvdz=058) 9.8 fL 9.4-12.4 NUCLEATED RED BLOOD CELLS (BEAKER) (test whvd=614) 0 /100 WBC 0-0 NEUTROPHILS RELATIVE PERCENT (BEAKER) (test jrki=195) 78 % LYMPHOCYTES RELATIVE PERCENT (BEAKER) (test fccc=068) 12 % MONOCYTES RELATIVE PERCENT (BEAKER) (test ekbj=747) 7 % EOSINOPHILS RELATIVE PERCENT (BEAKER) (test rprg=178) 2 % BASOPHILS RELATIVE PERCENT (BEAKER) (test vvsj=652) 0 % NEUTROPHILS ABSOLUTE COUNT (BEAKER) (test xjkg=466) 7.76 K/ L 1.78-5.38 LYMPHOCYTES ABSOLUTE COUNT (BEAKER) (test tzpg=518) 1.21 K/ L 1.32-3.57 MONOCYTES ABSOLUTE COUNT (BEAKER) (test zrvj=946) 0.70 K/ L 0.30-0.82 EOSINOPHILS ABSOLUTE COUNT (BEAKER) (test ogjb=381) 0.23 K/ L 0.04-0.54 BASOPHILS ABSOLUTE COUNT (BEAKER) (test bcit=979) 0.04 K/ L 0.01-0.08 IMMATURE GRANULOCYTES-RELATIVE PERCENT (BEAKER) (test xgsg=8563) 0 % 0-1 BASIC METABOLIC [id number] 10:15:00* Test Item Value Reference Range Comments SODIUM (BEAKER) (test sizo=215) 139 meq/L 136-145 POTASSIUM (BEAKER) (test qows=257) 5.5 meq/L 3.5-5.1 CHLORIDE (BEAKER) (test kzrk=310) 96 meq/L 98-107 CO2 (BEAKER) (test cngi=716) 32 meq/L 22-29 BLOOD UREA NITROGEN (BEAKER) (test svco=166) 29 mg/dL 7-21 CREATININE (BEAKER) (test mxxw=501) 2.08 mg/dL 0.57-1.25 GLUCOSE RANDOM (BEAKER) (test vjfq=775) 265 mg/dL 70-105 CALCIUM (BEAKER) (test rolt=157) 10.0 mg/dL 8.4-10.2 EGFR (BEAKER) (test nqoc=7847) 34 mL/min/1.73 sq m ESTIMATED GFR IS NOT ACCURATE CREATININE CLEARANCE IN PREDICTING GLOMERULAR FILTRATION RATE. ESTIMATED GFR IS NOT APPLICABLE FOR DIALYSIS PATIENTS. POCT-GLUCOSE [id number] 12:37:00* Test Item Value Reference Range Comments POC-GLUCOSE METER (BEAKER) (test wkbk=2627) 127 mg/dL 70-110 TESTED AT [facility] [address] [address] [id number] POCT-GLUCOSE [id number] 08:43:00* Test Item Value Reference Range Comments POC-GLUCOSE METER (BEAKER) (test iznw=6545) 188 mg/dL 70-110 TESTED AT [address] [address] BASIC METABOLIC [id number] 06:30:00* Test Item Value Reference Range Comments SODIUM (BEAKER) (test zrni=073) 137 meq/L 135-148 POTASSIUM (BEAKER) (test qtyx=028) 4.2 meq/L 3.6-5.5 Specimen slightly hemolyzed CHLORIDE (BEAKER) (test lkky=115) 98 meq/L 98-106 CO2 (BEAKER) (test qklj=377) 30 meq/L 20-29 BLOOD UREA NITROGEN (BEAKER) (test dhqx=301) 17 mg/dL 10-26 CREATININE (BEAKER) (test puld=773) 1.30 mg/dL 0.50-1.20 Specimen slightly hemolyzed GLUCOSE RANDOM (BEAKER) (test qrra=404) 177 mg/dL 70-110 CALCIUM (BEAKER) (test sfqd=510) 8.7 mg/dL 8.5-10.5 EGFR (BEAKER) (test mekx=0654) 58 mL/min/1.73 sq m ESTIMATED GFR IS NOT ACCURATE CREATININE CLEARANCE IN PREDICTING GLOMERULAR FILTRATION RATE. ESTIMATED GFR IS NOT APPLICABLE FOR DIALYSIS PATIENTS. [id number] 06:24:00* Test Item Value Reference Range Comments MAGNESIUM (BEAKER) (test dnum=305) 2.0 mg/dL 1.5-3.0 Specimen slightly hemolyzed POCT-GLUCOSE [id number] 21:03:00* Test Item Value Reference Range Comments POC-GLUCOSE METER (BEAKER) (test cnhs=6582) 156 mg/dL 70-110 TESTED AT [facility] [address] [address] [address] POCT-GLUCOSE [id number] 17:47:00* Test Item Value Reference Range Comments POC-GLUCOSE METER (BEAKER) (test jaih=3852) 293 mg/dL 70-110 TESTED AT [facility] [address] [address] POCT-GLUCOSE [id number] 13:07:00* Test Item Value Reference Range Comments POC-GLUCOSE METER (BEAKER) (test psmj=4610) 147 mg/dL 70-110 TESTED AT [facility] [address] [address] POCT-GLUCOSE [id number] 12:02:00* Test Item Value Reference Range Comments POC-GLUCOSE METER (BEAKER) (test gzzq=0397) 135 mg/dL 70-110 TESTED AT [facility] [address] [facility] [address] POCT-GLUCOSE [id number] 10:04:00* Test Item Value Reference Range Comments POC-GLUCOSE METER (BEAKER) (test zbnb=2527) 169 mg/dL 70-110 TESTED AT [facility] [address] [address] BASIC METABOLIC [id number] 07:21:00* Test Item Value Reference Range Comments SODIUM (BEAKER) (test beih=743) 136 meq/L 135-148 POTASSIUM (BEAKER) (test eyyt=073) 3.7 meq/L 3.6-5.5 CHLORIDE (BEAKER) (test uxky=219) 99 meq/L 98-106 CO2 (BEAKER) (test mirf=280) 27 meq/L 20-29 BLOOD UREA NITROGEN (BEAKER) (test dgeu=550) 23 mg/dL 10-26 CREATININE (BEAKER) (test rxhx=572) 1.40 mg/dL 0.50-1.20 GLUCOSE RANDOM (BEAKER) (test ndid=125) 274 mg/dL 70-110 CALCIUM (BEAKER) (test vqrr=749) 8.6 mg/dL 8.5-10.5 EGFR (BEAKER) (test uley=2379) 53 mL/min/1.73 sq m ESTIMATED GFR IS NOT ACCURATE CREATININE CLEARANCE IN PREDICTING GLOMERULAR FILTRATION RATE. ESTIMATED GFR IS NOT APPLICABLE FOR DIALYSIS PATIENTS. [id number] 07:15:00* Test Item Value Reference Range Comments MAGNESIUM (BEAKER) (test pxvo=020) 1.9 mg/dL 1.5-3.0 POCT-GLUCOSE [id number] 05:56:00* Test Item Value Reference Range Comments POC-GLUCOSE METER (BEAKER) (test ayup=0103) 274 mg/dL 70-110 TESTED AT [address] [address] POCT-GLUCOSE [id number] 20:57:00* Test Item Value Reference Range Comments POC-GLUCOSE METER (BEAKER) (test wslf=3383) 216 mg/dL 70-110 TESTED AT [place] [address] POCT-GLUCOSE [id number] 16:46:00* Test Item Value Reference Range Comments POC-GLUCOSE METER (BEAKER) (test tilq=4304) 237 mg/dL 70-110 TESTED AT [address] [address] POCT-GLUCOSE [id number] 11:44:00* Test Item Value Reference Range Comments POC-GLUCOSE METER (BEAKER) (test zcpa=6253) 183 mg/dL 70-110 TESTED AT [address] [address] BASIC METABOLIC [id number] 07:14:00* Test Item Value Reference Range Comments SODIUM (BEAKER) (test cunc=777) 137 meq/L 135-148 POTASSIUM (BEAKER) (test ksbs=015) 3.1 meq/L 3.6-5.5 CHLORIDE (BEAKER) (test qtdt=956) 97 meq/L 98-106 CO2 (BEAKER) (test qiuk=832) 29 meq/L 20-29 BLOOD UREA NITROGEN (BEAKER) (test ryrb=311) 27 mg/dL 10-26 CREATININE (BEAKER) (test dttz=256) 1.50 mg/dL 0.50-1.20 GLUCOSE RANDOM (BEAKER) (test sgml=138) 232 mg/dL 70-110 CALCIUM (BEAKER) (test yyfp=847) 8.9 mg/dL 8.5-10.5 EGFR (BEAKER) (test gosn=6669) 49 mL/min/1.73 sq m ESTIMATED GFR IS NOT ACCURATE CREATININE CLEARANCE IN PREDICTING GLOMERULAR FILTRATION RATE. ESTIMATED GFR IS NOT APPLICABLE FOR DIALYSIS PATIENTS. POCT-GLUCOSE [id number] 06:56:00* Test Item Value Reference Range Comments POC-GLUCOSE METER (BEAKER) (test tckl=0331) 241 mg/dL 70-110 TESTED AT [address] [address] [id number] 06:51:00* Test Item Value Reference Range Comments MAGNESIUM (BEAKER) (test uyfw=617) 2.0 mg/dL 1.5-3.0 [id number] 22:22:00* Test Item Value Reference Range Comments POTASSIUM (BEAKER) (test twkh=634) 4.5 meq/L 3.6-5.5 POCT-GLUCOSE [id number] 20:43:00* Test Item Value Reference Range Comments POC-GLUCOSE METER (BEAKER) (test nbmj=2016) 189 mg/dL 70-110 TESTED AT [place] [address] POCT-GLUCOSE [id number] 16:59:00* Test Item Value Reference Range Comments POC-GLUCOSE METER (BEAKER) (test qcog=7086) 153 mg/dL 70-110 TESTED AT [place] [address] POCT-GLUCOSE [id number] 16:58:00* Test Item Value Reference Range Comments POC-GLUCOSE METER (BEAKER) (test ykej=3297) 327 mg/dL 70-110 TESTED AT [place] [address] POCT-GLUCOSE [id number] 12:44:00* Test Item Value Reference Range Comments POC-GLUCOSE METER (BEAKER) (test sies=8944) 222 mg/dL 70-110 TESTED AT [place] [address] POCT-GLUCOSE [id number] 10:43:00* Test Item Value Reference Range Comments POC-GLUCOSE METER (BEAKER) (test izyx=3834) 155 mg/dL 70-110 TESTED AT [place] [address] POCT-GLUCOSE [id number] 10:43:00* Test Item Value Reference Range Comments POC-GLUCOSE METER (BEAKER) (test utov=8297) 128 mg/dL 70-110 TESTED AT [facility] [address] [address] [id number] 08:22:00* Test Item Value Reference Range Comments MAGNESIUM (BEAKER) (test wxpi=593) 1.9 mg/dL 1.5-3.0 TROPONIN [id number] 07:24:00* Test Item Value Reference Range Comments TROPONIN I (BEAKER) (test cxxl=196) 0.04 ng/mL 0.00-0.15 Troponin I (TnI) levels must be interpreted in the context of the presenting sym ptoms and the clinical findings. Elevated TnI levels indicate myocardial damage, but are not specific for ischemic heart disease. Elevated TnI levels are seen in patients with other cardiac conditions (including myocarditis and congestive h eart failure), and slight TnI elevations occur in patients with other conditions , including sepsis, renal failure, acidosis, acute neurological disease, and per sistent tachyarrhythmia.BASIC METABOLIC [id number] 07:24:00* Test Item Value Reference Range Comments SODIUM (BEAKER) (test wgpo=871) 137 meq/L 135-148 POTASSIUM (BEAKER) (test dhxy=124) 2.6 meq/L 3.6-5.5 CHLORIDE (BEAKER) (test cxve=243) 91 meq/L 98-106 CO2 (BEAKER) (test zvby=906) 31 meq/L 20-29 BLOOD UREA NITROGEN (BEAKER) (test pemy=369) 40 mg/dL 10-26 CREATININE (BEAKER) (test zaio=357) 1.70 mg/dL 0.50-1.20 GLUCOSE RANDOM (BEAKER) (test ubug=377) 126 mg/dL 70-110 CALCIUM (BEAKER) (test siuq=831) 9.7 mg/dL 8.5-10.5 EGFR (BEAKER) (test mund=4396) 43 mL/min/1.73 sq m ESTIMATED GFR IS NOT ACCURATE CREATININE CLEARANCE IN PREDICTING GLOMERULAR FILTRATION RATE. ESTIMATED GFR IS NOT APPLICABLE FOR DIALYSIS PATIENTS. POCT-GLUCOSE [id number] 06:46:00* Test Item Value Reference Range Comments POC-GLUCOSE METER (BEAKER) (test vggf=6151) 119 mg/dL 70-110 TESTED AT [facility] [address] [place] [address] POCT-GLUCOSE [id number] 20:43:00* Test Item Value Reference Range Comments POC-GLUCOSE METER (BEAKER) (test metm=7844) 197 mg/dL 70-110 TESTED AT [address] [address] TROPONIN [id number] 19:28:00* Test Item Value Reference Range Comments TROPONIN I (BEAKER) (test zrce=412) 0.03 ng/mL 0.00-0.15 Troponin I (TnI) levels must be interpreted in the context of the presenting sym ptoms and the clinical findings. Elevated TnI levels indicate myocardial damage, but are not specific for ischemic heart disease. Elevated TnI levels are seen in patients with other cardiac conditions (including myocarditis and congestive h eart failure), and slight TnI elevations occur in patients with other conditions , including sepsis, renal failure, acidosis, acute neurological disease, and per sistent tachyarrhythmia.POCT-GLUCOSE [id number] 16:55:00* Test Item Value Reference Range Comments POC-GLUCOSE METER (BEAKER) (test cjwj=5539) 186 mg/dL 70-110 TESTED AT [place] [id number] POCT-GLUCOSE [id number] 12:24:00* Test Item Value Reference Range Comments POC-GLUCOSE METER (BEAKER) (test czge=5458) 392 mg/dL 70-110 TESTED AT [address] [address] TROPONIN [id number] 07:16:00* Test Item Value Reference Range Comments TROPONIN I (BEAKER) (test zqga=163) 0.04 ng/mL 0.00-0.15 Troponin I (TnI) levels must be interpreted in the context of the presenting sym ptoms and the clinical findings. Elevated TnI levels indicate myocardial damage, but are not specific for ischemic heart disease. Elevated TnI levels are seen in patients with other cardiac conditions (including myocarditis and congestive h eart failure), and slight TnI elevations occur in patients with other conditions , including sepsis, renal failure, acidosis, acute neurological disease, and per sistent tachyarrhythmia.COMPREHENSIVE METABOLIC [id number] 07:09:00* Test Item Value Reference Range Comments TOTAL PROTEIN (BEAKER) (test skck=234) 7.9 gm/dL 6.0-8.5 ALBUMIN (BEAKER) (test gjsd=2270) 4.3 g/dL 3.5-5.0 ALKALINE PHOSPHATASE (BEAKER) (test urfj=491) 126 U/L 30-115 BILIRUBIN TOTAL (BEAKER) (test kzqc=321) 1.1 mg/dL 0.1-1.2 SODIUM (BEAKER) (test ayac=847) 138 meq/L 135-148 POTASSIUM (BEAKER) (test llme=345) 2.5 meq/L 3.6-5.5 CHLORIDE (BEAKER) (test zimx=044) 92 meq/L 98-106 CO2 (BEAKER) (test ryyg=150) 31 meq/L 20-29 BLOOD UREA NITROGEN (BEAKER) (test fbul=296) 39 mg/dL 10-26 CREATININE (BEAKER) (test odfn=996) 1.80 mg/dL 0.50-1.20 GLUCOSE RANDOM (BEAKER) (test dpzz=072) 159 mg/dL 70-110 CALCIUM (BEAKER) (test tdfn=077) 9.9 mg/dL 8.5-10.5 AST (SGOT) (BEAKER) (test gggd=936) 19 U/L 5-40 ALT (SGPT) (BEAKER) (test lsya=764) 19 U/L 5-50 EGFR (BEAKER) (test vjvq=9752) 40 mL/min/1.73 sq m ESTIMATED GFR IS NOT ACCURATE CREATININE CLEARANCE IN PREDICTING GLOMERULAR FILTRATION RATE. ESTIMATED GFR IS NOT APPLICABLE FOR DIALYSIS PATIENTS. [id number] 07:02:00* Test Item Value Reference Range Comments MAGNESIUM (BEAKER) (test xmbc=223) 1.9 mg/dL 1.5-3.0 POCT-GLUCOSE [id number] 06:25:00* Test Item Value Reference Range Comments POC-GLUCOSE METER (BEAKER) (test mmpq=3416) 154 mg/dL 70-110 TESTED AT [facility] [address] [place] [address] POCT-GLUCOSE [id number] 20:54:00* Test Item Value Reference Range Comments POC-GLUCOSE METER (BEAKER) (test aqyq=7093) 160 mg/dL 70-110 TESTED AT [place] [address] [facility] [address] PROTEIN, RANDOM [id number] 17:55:00* Test Item Value Reference Range Comments PROTEIN, URINE (BEAKER) (test qaoc=5164) 3 mg/dL 0-14 CREATININE, RANDOM [id number] 17:54:00* Test Item Value Reference Range Comments CREATININE URINE (BEAKER) (test yvbh=813) 60.3 mg/dL Reference Range: No NormalsPOCT-GLUCOSE [id number] 16:57:00* Test Item Value Reference Range Comments POC-GLUCOSE METER (BEAKER) (test ssiw=4597) 134 mg/dL 70-110 TESTED AT [facility] [address] [place] [address] U/S, RENAL, [id number] 16:11:00Reason for exam:->arfFINAL REPORT Comparison: None Discussion: Sonographic evaluation of the kidneys is performed. The right kidney measures 11.1 cm in length, with cortical thickness of 1.5 cm. The left kidney measures 12.5 cm in length, with cortical thickness of 1.2 cm. There is no focal renal mass, hydronephrosis, or shadowing renal calculus. Survey images of the bladder demonstrate no abnormality. Impression: Normal sonographic evaluation of the kidneys. Signed: Paramjit [facility] Verified Date/Time: 01/27/2017 16:11:50 Reading Location: [facility] Radiology Reading Room ONIN [id number] 13:58:00* Test Item Value Reference Range Comments TROPONIN I (BEAKER) (test cklx=773) 0.04 ng/mL 0.00-0.15 Troponin I (TnI) levels must be interpreted in the context of the presenting sym ptoms and the clinical findings. Elevated TnI levels indicate myocardial damage, but are not specific for ischemic heart disease. Elevated TnI levels are seen in patients with other cardiac conditions (including myocarditis and congestive h eart failure), and slight TnI elevations occur in patients with other conditions , including sepsis, renal failure, acidosis, acute neurological disease, and per sistent tachyarrhythmia.CREATINE KINASE (CK), TOTAL AND [id number] 13:57:00* Test Item Value Reference Range Comments CREATINE KINASE TOTAL (BEAKER) (test qpvn=941) 109 U/L 40-250 CREATINE KINASE-MB (BEAKER) (test vkcn=933) 0.9 ng/mL 0.0-4.9 CREATINE KINASE-MB INDEX (BEAKER) (test bzhx=862) 0.8 % CK-MB Reference Range:<5 Normal5-10 Borderline>10 AbnormalPOCT-GLUCOSE METER 2017-01-27 12:07:00* Test Item Value Reference Range Comments POC-GLUCOSE METER (BEAKER) (test lssh=4684) 231 mg/dL 70-110 TESTED AT [facility] [address] [address] POCT-GLUCOSE [id number] 07:26:00* Test Item Value Reference Range Comments POC-GLUCOSE METER (BEAKER) (test phuw=1851) 195 mg/dL 70-110 TESTED AT [facility] [address] [facility] [address] COMPREHENSIVE METABOLIC [id number] 06:06:00* Test Item Value Reference Range Comments TOTAL PROTEIN (BEAKER) (test oopv=242) 7.9 gm/dL 6.0-8.5 ALBUMIN (BEAKER) (test rtxj=4236) 4.3 g/dL 3.5-5.0 ALKALINE PHOSPHATASE (BEAKER) (test wuxz=970) 128 U/L 30-115 BILIRUBIN TOTAL (BEAKER) (test rzni=456) 1.3 mg/dL 0.1-1.2 SODIUM (BEAKER) (test kjio=843) 138 meq/L 135-148 POTASSIUM (BEAKER) (test vzuz=934) 2.8 meq/L 3.6-5.5 CHLORIDE (BEAKER) (test gxvm=197) 94 meq/L 98-106 CO2 (BEAKER) (test glfc=337) 30 meq/L 20-29 BLOOD UREA NITROGEN (BEAKER) (test nhfk=762) 38 mg/dL 10-26 CREATININE (BEAKER) (test xyvi=568) 2.00 mg/dL 0.50-1.20 GLUCOSE RANDOM (BEAKER) (test gwlp=449) 138 mg/dL 70-110 CALCIUM (BEAKER) (test ouma=081) 9.8 mg/dL 8.5-10.5 AST (SGOT) (BEAKER) (test yoea=679) 23 U/L 5-40 ALT (SGPT) (BEAKER) (test uppi=053) 22 U/L 5-50 EGFR (BEAKER) (test hnqy=8824) 35 mL/min/1.73 sq m ESTIMATED GFR IS NOT ACCURATE CREATININE CLEARANCE IN PREDICTING GLOMERULAR FILTRATION RATE. ESTIMATED GFR IS NOT APPLICABLE FOR DIALYSIS PATIENTS. TROPONIN [id number] 05:55:00* Test Item Value Reference Range Comments TROPONIN I (BEAKER) (test mobj=575) 0.03 ng/mL 0.00-0.15 Troponin I (TnI) levels must be interpreted in the context of the presenting sym ptoms and the clinical findings. Elevated TnI levels indicate myocardial damage, but are not specific for ischemic heart disease. Elevated TnI levels are seen in patients with other cardiac conditions (including myocarditis and congestive h eart failure), and slight TnI elevations occur in patients with other conditions , including sepsis, renal failure, acidosis, acute neurological disease, and per sistent tachyarrhythmia.CREATINE KINASE (CK), TOTAL AND [id number] 05:54:00* Test Item Value Reference Range Comments CREATINE KINASE TOTAL (BEAKER) (test jxmg=227) 119 U/L 40-250 CREATINE KINASE-MB (BEAKER) (test mtlv=703) 0.8 ng/mL 0.0-4.9 CREATINE KINASE-MB INDEX (BEAKER) (test kshv=345) 0.7 % CK-MB Reference Range:<5 Normal5-10 Borderline>10 AbnormalCBC W/PLT COUNT & AUTO [id number] 05:31:00* Test Item Value Reference Range Comments WHITE BLOOD CELL COUNT (BEAKER) (test vftp=755) 8.1 K/ L 4.0-10.0 RED BLOOD CELL COUNT (BEAKER) (test bkjz=838) 6.28 M/ L 4.20-5.80 HEMOGLOBIN (BEAKER) (test xqfr=188) 18.9 GM/DL 13.0-16.8 HEMATOCRIT (BEAKER) (test oyat=830) 54.4 % 40.0-50.0 MEAN CORPUSCULAR VOLUME (BEAKER) (test ypuq=579) 86.7 fL 82.0-98.0 MEAN CORPUSCULAR HEMOGLOBIN (BEAKER) (test epee=574) 30.0 pg 27.0-33.0 MEAN CORPUSCULAR HEMOGLOBIN CONC (BEAKER) (test aywy=761) 34.7 GM/DL 32.0-36.0 RED CELL DISTRIBUTION WIDTH (BEAKER) (test wcvk=477) 16.4 % 10.3-14.2 PLATELET COUNT (BEAKER) (test ziaz=434) 184 K/CU MM 150-430 MEAN PLATELET VOLUME (BEAKER) (test fajb=708) 8.8 fL 6.5-10.5 NUCLEATED RED BLOOD CELLS (BEAKER) (test ktsa=026) 0 /100 WBC 0-0 NEUTROPHILS RELATIVE PERCENT (BEAKER) (test xmqq=138) 66 % LYMPHOCYTES RELATIVE PERCENT (BEAKER) (test zewj=602) 20 % MONOCYTES RELATIVE PERCENT (BEAKER) (test xunu=395) 11 % EOSINOPHILS RELATIVE PERCENT (BEAKER) (test xtnd=137) 2 % BASOPHILS RELATIVE PERCENT (BEAKER) (test rums=101) 0 % NEUTROPHILS ABSOLUTE COUNT (BEAKER) (test zkmb=301) 5.40 K/ L 1.80-8.00 LYMPHOCYTES ABSOLUTE COUNT (BEAKER) (test fkuk=554) 1.70 K/ L 1.48-4.50 MONOCYTES ABSOLUTE COUNT (BEAKER) (test qluv=668) 0.90 K/ L 0.00-1.30 EOSINOPHILS ABSOLUTE COUNT (BEAKER) (test yaxd=471) 0.20 K/ L 0.00-0.50 BASOPHILS ABSOLUTE COUNT (BEAKER) (test jufk=779) 0.00 K/ L 0.00-0.20 POCT-GLUCOSE [id number] 21:59:00* Test Item Value Reference Range Comments POC-GLUCOSE METER (BEAKER) (test fpfb=1291) 87 mg/dL 70-110 TESTED AT [address] [address] RAD, CHEST, 1 VIEW, NON [id number] 18:55:00Reason for exam:->CHEST PAINShould this be performed at the bedside?->YesFINAL REPORT Chest, portable AP view History: Chest pain Comparison: 12/08/2016 IMPRESSION: The heart is mildly enlarged, stable. Left subclavian AICD is in place. There is no focal consolidation or pneumothorax. There is redemonstration of blunting of the left costophrenic angle which may be secondary to prominent pericardial fat. Signed: Marquise Crane MDReport Verified Date/Time: 01/26/2017 18:55:43 Reading Location: [facility] [id number] Consult Reading Room B-TYPE NATRIURETIC FACTOR (BNP)2017-01-26 18:37:00* Test Item Value Reference Range Comments B-TYPE NATRIURETIC PEPTIDE (BEAKER) (test bqtk=787) 148 pg/mL 0-100 CREATINE KINASE (CK), TOTAL AND [id number] 18:36:00* Test Item Value Reference Range Comments CREATINE KINASE TOTAL (BEAKER) (test pxxd=286) 131 U/L 40-250 CREATINE KINASE-MB (BEAKER) (test csrw=911) 1.1 ng/mL 0.0-4.9 CREATINE KINASE-MB INDEX (BEAKER) (test oqqg=171) 0.8 % CK-MB Reference Range:<5 Normal5-10 Borderline>10 AbnormalTROPONIN I 2017-01-26 18:36:00* Test Item Value Reference Range Comments TROPONIN I (BEAKER) (test nzot=049) 0.03 ng/mL 0.00-0.15 Troponin I (TnI) levels must be interpreted in the context of the presenting sym ptoms and the clinical findings. Elevated TnI levels indicate myocardial damage, but are not specific for ischemic heart disease. Elevated TnI levels are seen in patients with other cardiac conditions (including myocarditis and congestive h eart failure), and slight TnI elevations occur in patients with other conditions , including sepsis, renal failure, acidosis, acute neurological disease, and per sistent tachyarrhythmia.COMPREHENSIVE METABOLIC [id number] 18:29:00* Test Item Value Reference Range Comments TOTAL PROTEIN (BEAKER) (test ybfl=868) 8.3 gm/dL 6.0-8.5 Specimen markedly hemolyzed ALBUMIN (BEAKER) (test vveb=9775) 4.1 g/dL 3.5-5.0 Specimen markedly hemolyzed ALKALINE PHOSPHATASE (BEAKER) (test tusd=133) 116 U/L 30-115 BILIRUBIN TOTAL (BEAKER) (test hiun=117) 1.1 mg/dL 0.1-1.2 Specimen markedly hemolyzed SODIUM (BEAKER) (test iqjh=047) 138 meq/L 135-148 POTASSIUM (BEAKER) (test nfoj=783) 4.3 meq/L 3.6-5.5 Specimen markedly hemolyzed CHLORIDE (BEAKER) (test evzc=369) 96 meq/L 98-106 CO2 (BEAKER) (test ohbg=948) 27 meq/L 20-29 BLOOD UREA NITROGEN (BEAKER) (test ctyq=906) 35 mg/dL 10-26 CREATININE (BEAKER) (test qjqd=720) 2.00 mg/dL 0.50-1.20 Specimen markedly hemolyzed GLUCOSE RANDOM (BEAKER) (test zaro=311) 97 mg/dL 70-110 CALCIUM (BEAKER) (test dint=781) 9.3 mg/dL 8.5-10.5 AST (SGOT) (BEAKER) (test vsti=729) 44 U/L 5-40 Specimen markedly hemolyzed ALT (SGPT) (BEAKER) (test juhc=097) 22 U/L 5-50 Specimen markedly hemolyzed EGFR (BEAKER) (test zxlb=7577) 35 mL/min/1.73 sq m ESTIMATED GFR IS NOT ACCURATE CREATININE CLEARANCE IN PREDICTING GLOMERULAR FILTRATION RATE. ESTIMATED GFR IS NOT APPLICABLE FOR DIALYSIS PATIENTS. [id number] 18:22:00* Test Item Value Reference Range Comments PROTIME (BEAKER) (test lnrn=380) 16.9 seconds 9.3-12.0 INR (BEAKER) (test ppyl=175) 1.6 <=5.9 PARTIAL THROMBOPLASTIN TIME (BEAKER) (test veup=656) 37.8 seconds 23.0-35.0 RECOMMENDED COUMADIN/WARFARIN INR THERAPY RANGESSTANDARD DOSE: 2.0 - 3.0 Inclu rianna: PROPHYLAXIS for venous thrombosis, systemic embolization; TREATMENT for danii ous thrombosis and/or pulmonary embolus.HIGH RISK: Target INR is 2.5-3.5 for pat ients with mechanical heart valves.CBC W/PLT COUNT & AUTO [id number] 18:19:00* Test Item Value Reference Range Comments WHITE BLOOD CELL COUNT (BEAKER) (test dbps=503) 10.2 K/ L 4.0-10.0 RED BLOOD CELL COUNT (BEAKER) (test nnzf=497) 6.08 M/ L 4.20-5.80 HEMOGLOBIN (BEAKER) (test dtmp=096) 17.4 GM/DL 13.0-16.8 HEMATOCRIT (BEAKER) (test wvyr=178) 52.3 % 40.0-50.0 MEAN CORPUSCULAR VOLUME (BEAKER) (test nhac=317) 86.0 fL 82.0-98.0 MEAN CORPUSCULAR HEMOGLOBIN (BEAKER) (test dpzi=535) 28.7 pg 27.0-33.0 MEAN CORPUSCULAR HEMOGLOBIN CONC (BEAKER) (test otyc=219) 33.3 GM/DL 32.0-36.0 RED CELL DISTRIBUTION WIDTH (BEAKER) (test umsc=334) 15.5 % 10.3-14.2 PLATELET COUNT (BEAKER) (test ktgw=286) 210 K/CU MM 150-430 MEAN PLATELET VOLUME (BEAKER) (test tjcn=063) 8.7 fL 6.5-10.5 NUCLEATED RED BLOOD CELLS (BEAKER) (test nbjh=156) 0 /100 WBC 0-0 NEUTROPHILS RELATIVE PERCENT (BEAKER) (test kksh=353) 77 % LYMPHOCYTES RELATIVE PERCENT (BEAKER) (test bsfa=857) 13 % MONOCYTES RELATIVE PERCENT (BEAKER) (test nbre=456) 9 % EOSINOPHILS RELATIVE PERCENT (BEAKER) (test rizl=542) 2 % BASOPHILS RELATIVE PERCENT (BEAKER) (test lgbj=406) 0 % NEUTROPHILS ABSOLUTE COUNT (BEAKER) (test vbrr=565) 7.80 K/ L 1.80-8.00 LYMPHOCYTES ABSOLUTE COUNT (BEAKER) (test yslj=877) 1.30 K/ L 1.48-4.50 MONOCYTES ABSOLUTE COUNT (BEAKER) (test awsu=801) 0.90 K/ L 0.00-1.30 EOSINOPHILS ABSOLUTE COUNT (BEAKER) (test ytvx=632) 0.20 K/ L 0.00-0.50 BASOPHILS ABSOLUTE COUNT (BEAKER) (test xuvu=413) 0.00 K/ L 0.00-0.20 B-TYPE NATRIURETIC FACTOR (BNP)2017-01-16 10:46:00* Test Item Value Reference Range Comments B-TYPE NATRIURETIC PEPTIDE (BEAKER) (test xqly=969) 972 pg/mL 0-100 BASIC METABOLIC [id number] 10:40:00* Test Item Value Reference Range Comments SODIUM (BEAKER) (test qvxj=491) 142 meq/L 136-145 POTASSIUM (BEAKER) (test nygf=627) 3.5 meq/L 3.5-5.1 Specimen slightly hemolyzed CHLORIDE (BEAKER) (test fuvn=802) 103 meq/L 98-107 CO2 (BEAKER) (test zcok=138) 25 meq/L 22-29 BLOOD UREA NITROGEN (BEAKER) (test grvr=822) 27 mg/dL 7-21 CREATININE (BEAKER) (test xyam=546) 1.55 mg/dL 0.57-1.25 Specimen slightly hemolyzed GLUCOSE RANDOM (BEAKER) (test pqor=329) 82 mg/dL 70-105 CALCIUM (BEAKER) (test ursm=344) 8.8 mg/dL 8.4-10.2 EGFR (BEAKER) (test dhpk=9811) 47 mL/min/1.73 sq m ESTIMATED GFR IS NOT ACCURATE CREATININE CLEARANCE IN PREDICTING GLOMERULAR FILTRATION RATE. ESTIMATED GFR IS NOT APPLICABLE FOR DIALYSIS PATIENTS. LIPID [id number] 10:40:00* Test Item Value Reference Range Comments TRIGLYCERIDES (BEAKER) (test hyll=348) 122 mg/dL Specimen slightly hemolyzed CHOLESTEROL (BEAKER) (test nosm=775) 126 mg/dL Specimen slightly hemolyzed HDL CHOLESTEROL (BEAKER) (test aqby=516) 29 mg/dL LDL CHOLESTEROL CALCULATED (BEAKER) (test ptjs=326) 73 mg/dL Triglyceride Reference Range: Low Risk <150 Borderline 150-199 High Risk 200-499 Very High Risk >=500Cholesterol Reference Range: Low Risk <200 Borderline 200-239 High Risk >240HDL Cholesterol Reference Range: Low Risk >=60 High Risk <40LDL Cholesterol Reference Range: Optimal <100 Near Optimal 100-129 Borderline 130-159 High 160-189 Very High >=190 CBC W/PLT COUNT & AUTO [id number] 10:22:00* Test Item Value Reference Range Comments WHITE BLOOD CELL COUNT (BEAKER) (test vhlv=666) 6.9 K/ L 3.5-10.5 RED BLOOD CELL COUNT (BEAKER) (test zuqf=893) 5.23 M/ L 4.63-6.08 HEMOGLOBIN (BEAKER) (test gfrc=377) 14.5 GM/DL 13.7-17.5 HEMATOCRIT (BEAKER) (test ukkr=443) 45.8 % 40.1-51.0 MEAN CORPUSCULAR VOLUME (BEAKER) (test uvoc=172) 87.6 fL 79.0-92.2 MEAN CORPUSCULAR HEMOGLOBIN (BEAKER) (test rpzb=719) 27.7 pg 25.7-32.2 MEAN CORPUSCULAR HEMOGLOBIN CONC (BEAKER) (test bgoz=853) 31.7 GM/DL 32.3-36.5 RED CELL DISTRIBUTION WIDTH (BEAKER) (test ftii=364) 14.1 % 11.6-14.4 PLATELET COUNT (BEAKER) (test cyea=498) 179 K/CU MM 150-450 MEAN PLATELET VOLUME (BEAKER) (test dnnz=339) 10.2 fL 9.4-12.4 NUCLEATED RED BLOOD CELLS (BEAKER) (test agdq=406) 0 /100 WBC 0-0 NEUTROPHILS RELATIVE PERCENT (BEAKER) (test ydpc=745) 70 % LYMPHOCYTES RELATIVE PERCENT (BEAKER) (test grls=525) 17 % MONOCYTES RELATIVE PERCENT (BEAKER) (test ekfu=799) 10 % EOSINOPHILS RELATIVE PERCENT (BEAKER) (test rgwp=048) 2 % BASOPHILS RELATIVE PERCENT (BEAKER) (test dsvi=589) 0 % NEUTROPHILS ABSOLUTE COUNT (BEAKER) (test wusd=917) 4.87 K/ L 1.78-5.38 LYMPHOCYTES ABSOLUTE COUNT (BEAKER) (test ezwq=447) 1.18 K/ L 1.32-3.57 MONOCYTES ABSOLUTE COUNT (BEAKER) (test mrec=345) 0.68 K/ L 0.30-0.82 EOSINOPHILS ABSOLUTE COUNT (BEAKER) (test qvyi=954) 0.13 K/ L 0.04-0.54 BASOPHILS ABSOLUTE COUNT (BEAKER) (test rkmb=820) 0.03 K/ L 0.01-0.08 IMMATURE GRANULOCYTES-RELATIVE PERCENT (BEAKER) (test xebf=8157) 0 % 0-1 B-TYPE NATRIURETIC FACTOR (BNP)2016-12-26 19:28:00* Test Item Value Reference Range Comments B-TYPE NATRIURETIC PEPTIDE (BEAKER) (test cpdi=248) 1171 pg/mL 0-100 [id number] 16:49:00* Test Item Value Reference Range Comments MAGNESIUM (BEAKER) (test pfux=048) 1.7 mg/dL 1.6-2.6 BASIC METABOLIC [id number] 16:49:00* Test Item Value Reference Range Comments SODIUM (BEAKER) (test xttn=555) 143 meq/L 136-145 POTASSIUM (BEAKER) (test soxo=981) 4.0 meq/L 3.5-5.1 CHLORIDE (BEAKER) (test nfza=160) 105 meq/L 98-107 CO2 (BEAKER) (test fdwz=214) 26 meq/L 22-29 BLOOD UREA NITROGEN (BEAKER) (test esmn=728) 22 mg/dL 7-21 CREATININE (BEAKER) (test yvsf=556) 1.75 mg/dL 0.57-1.25 GLUCOSE RANDOM (BEAKER) (test gyne=958) 111 mg/dL 70-105 CALCIUM (BEAKER) (test nlhi=489) 9.4 mg/dL 8.4-10.2 EGFR (BEAKER) (test myge=5184) 41 mL/min/1.73 sq m ESTIMATED GFR IS NOT ACCURATE CREATININE CLEARANCE IN PREDICTING GLOMERULAR FILTRATION RATE. ESTIMATED GFR IS NOT APPLICABLE FOR DIALYSIS PATIENTS. [id number] 09:59:00* Test Item Value Reference Range Comments NT ProBnp (test code=PBNP) 7375 pg/mL 0-124 XR CHEST 1 [id number] 06:38:58XR CHEST 1 VIEW, 12/17/2016 6:22 AMReason For Examination: Chest painComparison: November 29, 2016[place] LUNGS:No consolidation or definite pulmonary edema. There is questionablevascular congestion versus bronchovascular crowding secondary to lowlung volumes.PLEURA: No pleural effusions CARDIOMEDIASTINUM:Similar to priorIMPRESSION:Questionable vascular congestion versus bronchovascular crowdingsecondary to low lung volumes, otherwise no plain film evidence of anacute cardiopulmonary abnormality.CK [id number] 05:59:00* Test Item Value Reference Range Comments CK (test code=CK) 4313 U/L 39-308 CKMB (test code=CKMB) 10.0 ng/mL 0.0-4.9 CKMB% (test code=CKMBP) 0.2 % 0.0-3.4 CK [id number] 05:51:00* Test Item Value Reference Range Comments CK (test code=CK) na U/L 39-308 Troponin [id number] 05:49:00* Test Item Value Reference Range Comments Troponin T (test code=BREANNA) <0.010 ng/mL 0.000-0.090 Comprehensive Metabolic [id number] 05:48:00* Test Item Value Reference Range Comments Sodium (test code=NA) 139 mmol/L 135-145 Potassium (test code=K) 5.0 mmol/L 3.5-5.1 hemolyzed Chloride (test code=CL) 99 mmol/L 98-105 Carbon Dioxide (test code=CO2) 27 mmol/L 22-29 Glucose (test code=GLU) 208 mg/dL 70-115 Blood Urea Nitrogen (test code=BUN) 31 mg/dL 6-20 Creatinine (test code=CREAT) 1.9 mg/dL 0.7-1.2 Calcium (test code=CA) 8.7 mg/dL 8.3-10.5 Prot Total (test code=TP) 6.9 g/dL 6.4-8.3 Albumin (test code=ALB) 4.0 g/dL 3.5-5.2 A/G Ratio (test code=AGRATIO) 1.4 Ratio Globulin (test code=GLOB) 2.9 2.9-3.1 Bili Total (test code=TBIL) 1.0 mg/dL 0.1-0.9 Alk Phos (test code=APHOS) 139 U/L 40-129 AST (test code=AST) 133 U/L 1-40 hemolyzed ALT (test code=ALT) 62 U/L 1-41 BUN/Creatinine Ratio (test code=BCRATIO) 16.3 Anion Gap (test code=AGAP) 13 mmol/L 7-16 Estimated GFR (test code=GFR) 40 mL/min/1.73m2 eGFR (estimated Glomerular Filtration Rate) is an estimated value,calculated from the patient's serum creatinine using the MDRD equation.It is NOT the patient's actual GFR. The eGFR provides a more clinicallyuseful measure of kidney disease than serum creatinine alone.This calculation takes sex and race into account, if the informationis provided. If the race is not provided, and the patient isAfrican-[place], multiply by 1.212. If sex is not provided, and thepatient is female, multiply by 0.742. Results for patients <18 years ofage have not been validated by the MDRD study and should be interpretedwith caution.eGFR Result Interpretation:eGFR > or=60 is in the Normal RangeeGFR < 60 may mean kidney diseaseeGFR < 15 may mean kidney failureRanges recommended by the National Kidney Foundat ion,http://nkdep.nih.gov CBC with [id number] 05:29:00* Test Item Value Reference Range Comments WBC (test code=WBC) 14.0 K/cumm 4.4-10.5 RBC (test code=RBC) 4.40 M/cumm 4.10-5.70 Hemoglobin (test code=HGB) 13.4 gm/dL 13.4-17.4 Hematocrit (test code=HCT) 40.7 % 38.7-52.0 MCV (test code=MCV) 92.6 fL 80-100 MCH (test code=MCH) 30.4 pg 27.0-32.5 MCHC (test code=MCHC) 32.8 g/dL 32.0-37.5 RDW (test code=RDW) 15.1 % 11.5-14.5 Platelet Count (test code=PLTCT) 199 K/cumm 140-440 MPV (test code=MPV) 7.9 fL Diff Method (test code=DIFFM) Auto Neutrophil (test code=NEUT) 83.4 % 36-70 Lymphocyte (test code=LYMPH) 7.8 % 12-44 Monocyte (test code=MONO) 8.2 % 0-11 Eosinophil (test code=EOS) 0.3 % 0-7 Basophil (test code=BASO) 0.2 % 0-2 Neutro Abs (test code=ANEUT) 11.7 K/cumm 1.6-7.4 Lymph Abs (test code=ALYMPH) 1.1 K/cumm 0.5-4.6 [place] Abs (test code=AMONO) 1.2 K/cumm 0.0-1.2 Eos Abs (test code=AEOS) 0.04 K/cumm 0.00-0.74 Baso Abs (test code=ABASO) 0.0 K/cumm 0.00-0.21 POCT-GLUCOSE [id number] 08:22:00* Test Item Value Reference Range Comments POC-GLUCOSE METER (BEAKER) (test tjbg=2379) 138 mg/dL 70-110 TESTED AT [address] [address] BASIC METABOLIC [id number] 06:10:00* Test Item Value Reference Range Comments SODIUM (BEAKER) (test trln=052) 141 meq/L 136-145 POTASSIUM (BEAKER) (test sbfc=650) 3.5 meq/L 3.5-5.1 CHLORIDE (BEAKER) (test zrmh=842) 103 meq/L 98-107 CO2 (BEAKER) (test bvdk=282) 30 meq/L 22-29 BLOOD UREA NITROGEN (BEAKER) (test zazm=479) 29 mg/dL 7-21 CREATININE (BEAKER) (test qwmm=860) 1.67 mg/dL 0.57-1.25 GLUCOSE RANDOM (BEAKER) (test ojqx=739) 189 mg/dL 70-105 CALCIUM (BEAKER) (test vome=657) 8.5 mg/dL 8.4-10.2 EGFR (BEAKER) (test evpj=0603) 43 mL/min/1.73 sq m ESTIMATED GFR IS NOT ACCURATE CREATININE CLEARANCE IN PREDICTING GLOMERULAR FILTRATION RATE. ESTIMATED GFR IS NOT APPLICABLE FOR DIALYSIS PATIENTS. CREATINE KINASE (CK)2016-12-14 06:10:00* Test Item Value Reference Range Comments CREATINE KINASE TOTAL (BEAKER) (test ujul=882) 111 U/L 29-200 POCT-GLUCOSE [id number] 20:29:00* Test Item Value Reference Range Comments POC-GLUCOSE METER (BEAKER) (test ypth=2072) 274 mg/dL 70-110 TESTED AT [address] [address] POCT-GLUCOSE [id number] 16:55:00* Test Item Value Reference Range Comments POC-GLUCOSE METER (BEAKER) (test fnni=2446) 433 mg/dL 70-110 Notified BRENDON JETT/TESTED AT [address] [address] POCT-GLUCOSE [id number] 11:40:00* Test Item Value Reference Range Comments POC-GLUCOSE METER (BEAKER) (test yaoi=5436) 189 mg/dL 70-110 TESTED AT [address] [address] POCT-GLUCOSE [id number] 08:23:00* Test Item Value Reference Range Comments POC-GLUCOSE METER (BEAKER) (test ezdf=1881) 105 mg/dL 70-110 TESTED AT [address] [address] BASIC METABOLIC [id number] 05:53:00* Test Item Value Reference Range Comments SODIUM (BEAKER) (test jonp=027) 140 meq/L 136-145 POTASSIUM (BEAKER) (test hfkc=207) 3.6 meq/L 3.5-5.1 CHLORIDE (BEAKER) (test kjvw=595) 104 meq/L 98-107 CO2 (BEAKER) (test vejv=936) 25 meq/L 22-29 BLOOD UREA NITROGEN (BEAKER) (test saed=386) 38 mg/dL 7-21 CREATININE (BEAKER) (test ogxr=266) 1.69 mg/dL 0.57-1.25 GLUCOSE RANDOM (BEAKER) (test ypwv=207) 119 mg/dL 70-105 CALCIUM (BEAKER) (test dixz=259) 8.4 mg/dL 8.4-10.2 EGFR (BEAKER) (test zjyq=6386) 43 mL/min/1.73 sq m ESTIMATED GFR IS NOT ACCURATE CREATININE CLEARANCE IN PREDICTING GLOMERULAR FILTRATION RATE. ESTIMATED GFR IS NOT APPLICABLE FOR DIALYSIS PATIENTS. CREATINE KINASE (CK)2016-12-13 05:53:00* Test Item Value Reference Range Comments CREATINE KINASE TOTAL (BEAKER) (test qnsn=453) 211 U/L 29-200 POCT-GLUCOSE [id number] 20:51:00* Test Item Value Reference Range Comments POC-GLUCOSE METER (BEAKER) (test hqpu=6076) 206 mg/dL 70-110 TESTED AT [facility] [address] [facility] [address] POCT-GLUCOSE [id number] 16:58:00* Test Item Value Reference Range Comments POC-GLUCOSE METER (BEAKER) (test torm=2330) 231 mg/dL 70-110 TESTED AT [place] [id number] [facility] [address] POCT-GLUCOSE [id number] 12:44:00* Test Item Value Reference Range Comments POC-GLUCOSE METER (BEAKER) (test unqn=0419) 247 mg/dL 70-110 TESTED AT [address] [address] POCT-GLUCOSE [id number] 08:59:00* Test Item Value Reference Range Comments POC-GLUCOSE METER (BEAKER) (test xqsp=0447) 126 mg/dL 70-110 TESTED AT [place] [id number] [facility] [address] BASIC METABOLIC [id number] 05:33:00* Test Item Value Reference Range Comments SODIUM (BEAKER) (test mrnf=922) 139 meq/L 136-145 POTASSIUM (BEAKER) (test cjbt=663) 4.3 meq/L 3.5-5.1 Specimen slightly hemolyzed CHLORIDE (BEAKER) (test yhqd=379) 105 meq/L 98-107 CO2 (BEAKER) (test oexu=536) 24 meq/L 22-29 BLOOD UREA NITROGEN (BEAKER) (test rrsf=552) 40 mg/dL 7-21 CREATININE (BEAKER) (test xzxo=854) 1.67 mg/dL 0.57-1.25 Specimen slightly hemolyzed GLUCOSE RANDOM (BEAKER) (test dten=071) 102 mg/dL 70-105 CALCIUM (BEAKER) (test xomn=856) 8.5 mg/dL 8.4-10.2 EGFR (BEAKER) (test admv=6412) 43 mL/min/1.73 sq m ESTIMATED GFR IS NOT ACCURATE CREATININE CLEARANCE IN PREDICTING GLOMERULAR FILTRATION RATE. ESTIMATED GFR IS NOT APPLICABLE FOR DIALYSIS PATIENTS. CREATINE KINASE (CK)2016-12-12 05:33:00* Test Item Value Reference Range Comments CREATINE KINASE TOTAL (BEAKER) (test hdeh=141) 397 U/L 29-200 POCT-GLUCOSE [id number] 21:46:00* Test Item Value Reference Range Comments POC-GLUCOSE METER (BEAKER) (test slli=2581) 135 mg/dL 70-110 TESTED AT [facility] [address] [facility] [address] POCT-GLUCOSE [id number] 21:28:00* Test Item Value Reference Range Comments POC-GLUCOSE METER (BEAKER) (test pvuz=7279) 295 mg/dL 70-110 TESTED AT [address] [address] POCT-GLUCOSE [id number] 17:44:00* Test Item Value Reference Range Comments POC-GLUCOSE METER (BEAKER) (test vwfh=2773) 148 mg/dL 70-110 TESTED AT [address] [address] POCT-GLUCOSE [id number] 07:49:00* Test Item Value Reference Range Comments POC-GLUCOSE METER (BEAKER) (test adkz=0913) 164 mg/dL 70-110 TESTED AT [address] [address] BASIC METABOLIC [id number] 06:02:00* Test Item Value Reference Range Comments SODIUM (BEAKER) (test qula=609) 138 meq/L 136-145 POTASSIUM (BEAKER) (test mdre=740) 3.8 meq/L 3.5-5.1 CHLORIDE (BEAKER) (test yfjh=912) 103 meq/L 98-107 CO2 (BEAKER) (test hjga=687) 22 meq/L 22-29 BLOOD UREA NITROGEN (BEAKER) (test qpzn=845) 41 mg/dL 7-21 CREATININE (BEAKER) (test vjmk=842) 1.87 mg/dL 0.57-1.25 GLUCOSE RANDOM (BEAKER) (test hazm=827) 173 mg/dL 70-105 CALCIUM (BEAKER) (test gyuo=626) 8.7 mg/dL 8.4-10.2 EGFR (BEAKER) (test ehcb=6592) 38 mL/min/1.73 sq m ESTIMATED GFR IS NOT ACCURATE CREATININE CLEARANCE IN PREDICTING GLOMERULAR FILTRATION RATE. ESTIMATED GFR IS NOT APPLICABLE FOR DIALYSIS PATIENTS. CREATINE KINASE (CK)2016-12-11 06:02:00* Test Item Value Reference Range Comments CREATINE KINASE TOTAL (BEAKER) (test meiv=015) 486 U/L 29-200 POCT-GLUCOSE [id number] 21:49:00* Test Item Value Reference Range Comments POC-GLUCOSE METER (BEAKER) (test ygqc=0731) 176 mg/dL 70-110 TESTED AT [facility] [address] [facility] [address] POCT-GLUCOSE [id number] 17:17:00* Test Item Value Reference Range Comments POC-GLUCOSE METER (BEAKER) (test afqa=8652) 102 mg/dL 70-110 TESTED AT [address] [address] POCT-GLUCOSE [id number] 12:22:00* Test Item Value Reference Range Comments POC-GLUCOSE METER (BEAKER) (test elhs=5495) 247 mg/dL 70-110 TESTED AT [address] [address] POCT-GLUCOSE [id number] 08:40:00* Test Item Value Reference Range Comments POC-GLUCOSE METER (BEAKER) (test loxa=9858) 138 mg/dL 70-110 TESTED AT [address] [address] BASIC METABOLIC [id number] 07:33:00* Test Item Value Reference Range Comments SODIUM (BEAKER) (test pnrf=784) 140 meq/L 136-145 POTASSIUM (BEAKER) (test fltl=444) 3.7 meq/L 3.5-5.1 CHLORIDE (BEAKER) (test noms=517) 104 meq/L 98-107 CO2 (BEAKER) (test yrqg=302) 24 meq/L 22-29 BLOOD UREA NITROGEN (BEAKER) (test oiko=817) 32 mg/dL 7-21 CREATININE (BEAKER) (test dylh=302) 1.67 mg/dL 0.57-1.25 GLUCOSE RANDOM (BEAKER) (test zyxz=229) 141 mg/dL 70-105 CALCIUM (BEAKER) (test pkdj=240) 9.0 mg/dL 8.4-10.2 EGFR (BEAKER) (test wkcb=4701) 43 mL/min/1.73 sq m ESTIMATED GFR IS NOT ACCURATE CREATININE CLEARANCE IN PREDICTING GLOMERULAR FILTRATION RATE. ESTIMATED GFR IS NOT APPLICABLE FOR DIALYSIS PATIENTS. CREATINE KINASE (CK)2016-12-10 07:33:00* Test Item Value Reference Range Comments CREATINE KINASE TOTAL (BEAKER) (test jxxo=388) 411 U/L 29-200 POCT-GLUCOSE [id number] 21:37:00* Test Item Value Reference Range Comments POC-GLUCOSE METER (BEAKER) (test ycew=5129) 224 mg/dL 70-110 TESTED AT [address] [address] POCT-GLUCOSE [id number] 18:56:00* Test Item Value Reference Range Comments POC-GLUCOSE METER (BEAKER) (test ashe=9883) 99 mg/dL 70-110 TESTED AT [address] [address] POCT-GLUCOSE [id number] 18:20:00* Test Item Value Reference Range Comments POC-GLUCOSE METER (BEAKER) (test jufh=2752) 75 mg/dL 70-110 TESTED AT [address] [address] POCT-GLUCOSE [id number] 18:05:00* Test Item Value Reference Range Comments POC-GLUCOSE METER (BEAKER) (test lnkv=1604) 67 mg/dL 70-110 TESTED AT [address] [address] POCT-GLUCOSE [id number] 12:55:00* Test Item Value Reference Range Comments POC-GLUCOSE METER (BEAKER) (test mcai=4358) 118 mg/dL 70-110 TESTED AT [address] [address] RAPID DRUG SCREEN, [id number] 10:02:00* Test Item Value Reference Range Comments BARBITURATE URINE (BEAKER) (test kigr=917) Negative Negative BENZODIAZEPINE SCREEN URINE (BEAKER) (test rbhk=742) Positive Negative COCAINE (METAB.) SCREEN (BEAKER) (test prbj=0835) Negative Negative METHADONE SCREEN (BEAKER) (test kusw=4738) Negative Negative OPIATE SCREEN URINE (BEAKER) (test qoey=513) Positive Negative CANNABINOID SCREEN URINE (BEAKER) (test yagl=956) Negative Negative AMPH/METHAMPH SCREEN (BEAKER) (test qzon=3057) Negative Negative PHENCYCLIDINE SCREEN URINE (BEAKER) (test boua=458) Negative Negative OXYCODONE SCREEN URINE (BEAKER) (test psxk=0393) Negative Negative DRUG CUTOFF CONC.Cocaine 300 ng/mL Cannabinoid 50 ng/mL Benzodiazepine 200 ng/mLBarbiturate 200 ng/mLPh encyclidine 25 ng/mLOpiate 300 ng/mLMethadone 300 ng/mLAmphetamine/ 1000 ng/mL MethamphetamineOxycodone 300 ng/mLThis assay provides an unconfirmed qualitative test result for the cli nical management of patients in emergency situations. Chain of custody not maint ained. Some emls-zuf-qzqrobd medications, as well as adulterants, may cause inac curate results. Clinical correlation should be applied. A more comprehensive chandra g screen or confirmation of a detected drug may be performed upon request. CREATINE KINASE (CK)2016-12-09 09:59:00* Test Item Value Reference Range Comments CREATINE KINASE TOTAL (BEAKER) (test hstv=798) 185 U/L 29-200 POCT-GLUCOSE [id number] 08:07:00* Test Item Value Reference Range Comments POC-GLUCOSE METER (BEAKER) (test cuyd=2628) 129 mg/dL 70-110 TESTED AT [facility] [address] [facility] [address] BASIC METABOLIC [id number] 07:21:00* Test Item Value Reference Range Comments SODIUM (BEAKER) (test azgh=768) 141 meq/L 136-145 POTASSIUM (BEAKER) (test ohjv=146) 3.4 meq/L 3.5-5.1 CHLORIDE (BEAKER) (test zjsk=018) 105 meq/L 98-107 CO2 (BEAKER) (test uzma=273) 26 meq/L 22-29 BLOOD UREA NITROGEN (BEAKER) (test lqvp=982) 25 mg/dL 7-21 CREATININE (BEAKER) (test elol=881) 1.52 mg/dL 0.57-1.25 GLUCOSE RANDOM (BEAKER) (test azty=448) 142 mg/dL 70-105 CALCIUM (BEAKER) (test cwds=485) 8.8 mg/dL 8.4-10.2 EGFR (BEAKER) (test mlwj=9057) 48 mL/min/1.73 sq m ESTIMATED GFR IS NOT ACCURATE CREATININE CLEARANCE IN PREDICTING GLOMERULAR FILTRATION RATE. ESTIMATED GFR IS NOT APPLICABLE FOR DIALYSIS PATIENTS. TSH/FREE T4 IF [id number] 02:39:00* Test Item Value Reference Range Comments THYROID STIMULATING HORMONE (BEAKER) (test ukow=486) 2.57 uIU/mL 0.35-4.94 TROPONIN [id number] 01:31:00* Test Item Value Reference Range Comments TROPONIN I (BEAKER) (test ipkb=712) 0.03 ng/mL 0.00-0.03 Troponin I (TnI) levels must be interpreted in the context of the presenting sym ptoms and the clinical findings. Elevated TnI levels indicate myocardial damage, but are not specific for ischemic heart disease. Elevated TnI levels are seen in patients with other cardiac conditions (including myocarditis and congestive h eart failure), and slight TnI elevations occur in patients with other conditions , including sepsis, renal failure, acidosis, acute neurological disease, and per sistent tachyarrhythmia.POCT-GLUCOSE [id number] 21:34:00* Test Item Value Reference Range Comments POC-GLUCOSE METER (BEAKER) (test yspz=2325) 179 mg/dL 70-110 TESTED AT [address] [address] TROPONIN [id number] 19:29:00* Test Item Value Reference Range Comments TROPONIN I (BEAKER) (test cfsi=133) 0.02 ng/mL 0.00-0.03 Troponin I (TnI) levels must be interpreted in the context of the presenting sym ptoms and the clinical findings. Elevated TnI levels indicate myocardial damage, but are not specific for ischemic heart disease. Elevated TnI levels are seen in patients with other cardiac conditions (including myocarditis and congestive h eart failure), and slight TnI elevations occur in patients with other conditions , including sepsis, renal failure, acidosis, acute neurological disease, and per sistent tachyarrhythmia.HEMOGLOBIN [id number] 16:13:00* Test Item Value Reference Range Comments HEMOGLOBIN A1C (BEAKER) (test taqv=825) 7.7 % 4.3-6.1 POCT-GLUCOSE [id number] 16:08:00* Test Item Value Reference Range Comments POC-GLUCOSE METER (QuandooAKER) (test eqxv=8169) 93 mg/dL 70-110 TESTED AT [place] [id number] [facility] [address] RAD, CHEST, 1 VIEW, NON [id number] 11:57:00Reason for exam:->chest painFINAL REPORT Chest one view compared to September 16 Discussion: Cardiomegaly and pulmonary congestion. No effusion or pneumothorax. Left chest ICD in place. Bones and soft tissues unremarkable. IMPRESSIONS: Suspected CHF with pulmonary congestion. Signed: Conrado Alvarez Verified Date/Time: 11:57:31 Reading Location: [facility] Reading Room El ectronically signed by: CONRADO ALVAREZ M.D. on 12/08/2016 11:57 AM CREATINE KINASE (CK), TOTAL AND [id number] 11:53:00* Test Item Value Reference Range Comments CREATINE KINASE TOTAL (BEAKER) (test xjqu=029) 165 U/L 29-200 CREATINE KINASE-MB (BEAKER) (test rupp=002) 2.1 ng/mL 0.0-6.6 CREATINE KINASE-MB INDEX (BEAKER) (test iimp=321) 1.3 % CK-MB Reference Range:<6.7 Normal6.7-10.0 Borderline>10.0 Abnormal TROPONIN [id number] 11:53:00* Test Item Value Reference Range Comments TROPONIN I (BEAKER) (test unje=860) 0.02 ng/mL 0.00-0.03 Troponin I (TnI) levels must be interpreted in the context of the presenting sym ptoms and the clinical findings. Elevated TnI levels indicate myocardial damage, but are not specific for ischemic heart disease. Elevated TnI levels are seen in patients with other cardiac conditions (including myocarditis and congestive h eart failure), and slight TnI elevations occur in patients with other conditions , including sepsis, renal failure, acidosis, acute neurological disease, and per sistent tachyarrhythmia.B-TYPE NATRIURETIC FACTOR (BNP)2016-12-08 11:51:00* Test Item Value Reference Range Comments B-TYPE NATRIURETIC PEPTIDE (BEAKER) (test uvhb=407) 1486 pg/mL 0-100 [id number] 11:45:00* Test Item Value Reference Range Comments MAGNESIUM (BEAKER) (test cowe=230) 1.7 mg/dL 1.6-2.6 BASIC METABOLIC [id number] 11:45:00* Test Item Value Reference Range Comments SODIUM (BEAKER) (test jkwd=346) 143 meq/L 136-145 POTASSIUM (BEAKER) (test dmsz=630) 3.7 meq/L 3.5-5.1 CHLORIDE (BEAKER) (test rnms=315) 104 meq/L 98-107 CO2 (BEAKER) (test yidi=849) 27 meq/L 22-29 BLOOD UREA NITROGEN (BEAKER) (test djcu=233) 22 mg/dL 7-21 CREATININE (BEAKER) (test hrrf=397) 1.76 mg/dL 0.57-1.25 GLUCOSE RANDOM (BEAKER) (test kzkh=012) 131 mg/dL 70-105 CALCIUM (BEAKER) (test mafv=834) 9.4 mg/dL 8.4-10.2 EGFR (BEAKER) (test mfre=3786) 41 mL/min/1.73 sq m ESTIMATED GFR IS NOT ACCURATE CREATININE CLEARANCE IN PREDICTING GLOMERULAR FILTRATION RATE. ESTIMATED GFR IS NOT APPLICABLE FOR DIALYSIS PATIENTS. HEPATIC FUNCTION [id number] 11:45:00* Test Item Value Reference Range Comments TOTAL PROTEIN (BEAKER) (test utpl=689) 7.9 gm/dL 6.0-8.3 ALBUMIN (BEAKER) (test peko=8782) 4.2 g/dL 3.5-5.0 BILIRUBIN TOTAL (BEAKER) (test yaom=279) 1.5 mg/dL 0.2-1.2 BILIRUBIN DIRECT (BEAKER) (test kwgm=951) 0.6 mg/dL 0.1-0.5 ALKALINE PHOSPHATASE (BEAKER) (test wbop=514) 126 U/L 40-150 AST (SGOT) (BEAKER) (test gzhu=049) 16 U/L 5-34 ALT (SGPT) (BEAKER) (test ivkf=323) 12 U/L 6-55 [id number] 11:45:00* Test Item Value Reference Range Comments AMYLASE (BEAKER) (test gaoe=541) 28 U/L 25-125 [id number] 11:45:00* Test Item Value Reference Range Comments LIPASE (BEAKER) (test dtou=424) 22 U/L 8-78 CBC W/PLT COUNT & AUTO [id number] 11:45:00* Test Item Value Reference Range Comments WHITE BLOOD CELL COUNT (BEAKER) (test qzfs=089) 9.2 K/ L 3.5-10.5 RED BLOOD CELL COUNT (BEAKER) (test jgag=659) 4.82 M/ L 4.63-6.08 HEMOGLOBIN (BEAKER) (test rkkw=267) 14.7 GM/DL 13.7-17.5 HEMATOCRIT (BEAKER) (test zmpr=626) 44.8 % 40.1-51.0 MEAN CORPUSCULAR VOLUME (BEAKER) (test aqdz=819) 92.9 fL 79.0-92.2 MEAN CORPUSCULAR HEMOGLOBIN (BEAKER) (test mplh=076) 30.5 pg 25.7-32.2 MEAN CORPUSCULAR HEMOGLOBIN CONC (BEAKER) (test vnay=084) 32.8 GM/DL 32.3-36.5 RED CELL DISTRIBUTION WIDTH (BEAKER) (test rhxc=813) 15.2 % 11.6-14.4 PLATELET COUNT (BEAKER) (test djwc=404) 286 K/CU MM 150-450 MEAN PLATELET VOLUME (BEAKER) (test zucg=755) 9.6 fL 9.4-12.4 NUCLEATED RED BLOOD CELLS (BEAKER) (test yznd=584) 0 /100 WBC 0-0 NEUTROPHILS RELATIVE PERCENT (BEAKER) (test cvgj=637) 81 % LYMPHOCYTES RELATIVE PERCENT (BEAKER) (test iasq=130) 10 % MONOCYTES RELATIVE PERCENT (BEAKER) (test xwep=247) 7 % EOSINOPHILS RELATIVE PERCENT (BEAKER) (test tgyn=686) 1 % BASOPHILS RELATIVE PERCENT (BEAKER) (test ejmd=646) 0 % NEUTROPHILS ABSOLUTE COUNT (BEAKER) (test cltw=796) 7.44 K/ L 1.78-5.38 LYMPHOCYTES ABSOLUTE COUNT (BEAKER) (test zvao=694) 0.95 K/ L 1.32-3.57 MONOCYTES ABSOLUTE COUNT (BEAKER) (test rttf=694) 0.61 K/ L 0.30-0.82 EOSINOPHILS ABSOLUTE COUNT (BEAKER) (test nglx=521) 0.08 K/ L 0.04-0.54 BASOPHILS ABSOLUTE COUNT (BEAKER) (test hxnx=833) 0.03 K/ L 0.01-0.08 IMMATURE GRANULOCYTES-RELATIVE PERCENT (BEAKER) (test lxuk=9598) 0 % 0-1 POC Glucose, [id number] 12:40:00* Test Item Value Reference Range Comments POC Glucose (test code=POCGLUC) 147 mg/dL 70-115 Notify RN or MDIf you consider your patient critically ill, the Sae Accu-Chek InformII metershould not be used for Glucose determinations.Draw a venous Glucose and send to the Main Lab for Analysis. POC Glucose, [id number] 06:09:00* Test Item Value Reference Range Comments POC Glucose (test code=POCGLUC) 202 mg/dL 70-115 Notify RN or MDIf you consider your patient critically ill, the Sae Accu-Chek InformII metershould not be used for Glucose determinations.Draw a venous Glucose and send to the Main Lab for Analysis. POC Glucose, [id number] 19:38:00* Test Item Value Reference Range Comments POC Glucose (test code=POCGLUC) 239 mg/dL 70-115 Notify RN or MDIf you consider your patient critically ill, the Sae Accu-Chek InformII metershould not be used for Glucose determinations.Draw a venous Glucose and send to the Main Lab for Analysis. POC Glucose, [id number] 16:46:00* Test Item Value Reference Range Comments POC Glucose (test code=POCGLUC) 229 mg/dL 70-115 Notify RN or MDIf you consider your patient critically ill, the Sae Accu-Chek InformII metershould not be used for Glucose determinations.Draw a venous Glucose and send to the Main Lab for Analysis. POC Glucose, [id number] 12:30:00* Test Item Value Reference Range Comments POC Glucose (test code=POCGLUC) 136 mg/dL 70-115 Notify RN or MDIf you consider your patient critically ill, the Sae Accu-Chek InformII metershould not be used for Glucose determinations.Draw a venous Glucose and send to the Main Lab for Analysis. POC Glucose, [id number] 08:33:00* Test Item Value Reference Range Comments POC Glucose (test code=POCGLUC) 102 mg/dL 70-115 If you consider your patient critically ill, the Sae Accu-Chek InformII metershould not be used for Glucose determinations.Draw a venous Glucose and send to the Main Lab for Analysis. POC Glucose, [id number] 05:28:00* Test Item Value Reference Range Comments POC Glucose (test code=POCGLUC) 122 mg/dL 70-115 If you consider your patient critically ill, the Sae Accu-Chek InformII metershould not be used for Glucose determinations.Draw a venous Glucose and send to the Main Lab for Analysis. POC Glucose, [id number] 19:54:00* Test Item Value Reference Range Comments POC Glucose (test code=POCGLUC) 270 mg/dL 70-115 If you consider your patient critically ill, the Sae Accu-Chek InformII metershould not be used for Glucose determinations.Draw a venous Glucose and send to the Main Lab for Analysis. POC Glucose, [id number] 16:18:00* Test Item Value Reference Range Comments POC Glucose (test code=POCGLUC) 227 mg/dL 70-115 If you consider your patient critically ill, the Sae Accu-Chek InformII metershould not be used for Glucose determinations.Draw a venous Glucose and send to the Main Lab for Analysis. POC Glucose, [id number] 12:30:00* Test Item Value Reference Range Comments POC Glucose (test code=POCGLUC) 316 mg/dL 70-115 If you consider your patient critically ill, the Sae Accu-Chek InformII metershould not be used for Glucose determinations.Draw a venous Glucose and send to the Main Lab for Analysis. XR CHEST 1 [id number] 12:17:40EXAM: Portable AP chest x-rayLOCATION: R16 INDICATION: chf COMPARISON: 11/24/2016FINDINGS:The cardiomediastinal silhouette is unremarkable. Single-lead left chestwall AICD. There is no focal consolidation. There is no pleuraleffusion or pneumothorax. IMPRESSION:No acute cardiopulmonary disease.Basic Metabolic [id number] 05:50:00* Test Item Value Reference Range Comments Sodium (test code=NA) 141 mmol/L 135-145 Potassium (test code=K) 4.1 mmol/L 3.5-5.1 Chloride (test code=CL) 101 mmol/L 98-105 Carbon Dioxide (test code=CO2) 29 mmol/L 22-29 Glucose (test code=GLU) 112 mg/dL 70-115 Blood Urea Nitrogen (test code=BUN) 21 mg/dL 6-20 Creatinine (test code=CREAT) 1.6 mg/dL 0.7-1.2 Calcium (test code=CA) 8.6 mg/dL 8.3-10.5 BUN/Creatinine Ratio (test code=BCRATIO) 13.1 Anion Gap (test code=AGAP) 11 mmol/L 7-16 Estimated GFR (test code=GFR) 48 mL/min/1.73m2 eGFR (estimated Glomerular Filtration Rate) is an estimated value,calculated from the patient's serum creatinine using the MDRD equation.It is NOT the patient's actual GFR. The eGFR provides a more clinicallyuseful measure of kidney disease than serum creatinine alone.This calculation takes sex and race into account, if the informationis provided. If the race is not provided, and the patient is[place], multiply by 1.212. If sex is not provided, and thepatient is female, multiply by 0.742. Results for patients <18 years ofage have not been validated by the MDRD study and should be interpretedwith caution.eGFR Result Interpretation:eGFR > or=60 is in the Normal RangeeGFR < 60 may mean kidney diseaseeGFR < 15 may mean kidney failureRanges recommended by the National Kidney Foundat ion,http://nkdep.nih.gov Lipid [id number] 05:50:00* Test Item Value Reference Range Comments Cholesterol (test code=CHOL) 147 mg/dL 0-200 Triglycerides (test code=TRIG) 91 mg/dL 9-200 HDL (test code=HDL) 25 mg/dL 40-60 Chol/HDL (test code=CHOLPHDL) 5.9 Ratio 0.0-5.0 LDL, Calculated (test code=LDLC) 104 mg/dL 0-130 (NOTE)RISK OF HEART DISEASEPublished by [place] Heart AssociationAnalyte Optimal Boderline Increased RiskCHOL <200 200-239 >240TRIG <150 150- 199 >200HDL Male: >60 <40HDL Female: >60 <50LDL <100 130-159 >160LDL NEAR OPTIMAL IS 100-129 VLDL (test code=VLDL) 18 mg/dL 5-40 LDL/HDL (test code=LDLPHDL) 4 POC Glucose, [id number] 05:49:00* Test Item Value Reference Range Comments POC Glucose (test code=POCGLUC) 121 mg/dL 70-115 If you consider your patient critically ill, the Sae Accu-Chek InformII metershould not be used for Glucose determinations.Draw a venous Glucose and send to the Main Lab for Analysis. POC Glucose, [id number] 00:25:00* Test Item Value Reference Range Comments POC Glucose (test code=POCGLUC) 197 mg/dL 70-115 If you consider your patient critically ill, the Sae Accu-Chek InformII metershould not be used for Glucose determinations.Draw a venous Glucose and send to the Main Lab for Analysis. POC Glucose, [id number] 20:02:00* Test Item Value Reference Range Comments POC Glucose (test code=POCGLUC) 271 mg/dL 70-115 If you consider your patient critically ill, the Sae Accu-Chek InformII metershould not be used for Glucose determinations.Draw a venous Glucose and send to the Main Lab for Analysis. POC Glucose, [id number] 16:07:00* Test Item Value Reference Range Comments POC Glucose (test code=POCGLUC) 247 mg/dL 70-115 Notify RN or MDIf you consider your patient critically ill, the Sae Accu-Chek InformII metershould not be used for Glucose determinations.Draw a venous Glucose and send to the Main Lab for Analysis. POC Glucose, [id number] 10:58:00* Test Item Value Reference Range Comments POC Glucose (test code=POCGLUC) 222 mg/dL 70-115 Notify RN or MDIf you consider your patient critically ill, the Sae Accu-Chek InformII metershould not be used for Glucose determinations.Draw a venous Glucose and send to the Main Lab for Analysis. POC Glucose, [id number] 07:05:00* Test Item Value Reference Range Comments POC Glucose (test code=POCGLUC) 164 mg/dL 70-115 Notify RN or MDIf you consider your patient critically ill, the Sae Accu-Chek InformII metershould not be used for Glucose determinations.Draw a venous Glucose and send to the Main Lab for Analysis. POC Glucose, [id number] 19:54:00* Test Item Value Reference Range Comments POC Glucose (test code=POCGLUC) 314 mg/dL 70-115 If you consider your patient critically ill, the Sae Accu-Chek InformII metershould not be used for Glucose determinations.Draw a venous Glucose and send to the Main Lab for Analysis. POC Glucose, [id number] 16:10:00* Test Item Value Reference Range Comments POC Glucose (test code=POCGLUC) 244 mg/dL 70-115 If you consider your patient critically ill, the Sae Accu-Chek InformII metershould not be used for Glucose determinations.Draw a venous Glucose and send to the Main Lab for Analysis. POC Glucose, [id number] 11:58:00* Test Item Value Reference Range Comments POC Glucose (test code=POCGLUC) 270 mg/dL 70-115 If you consider your patient critically ill, the Sae Accu-Chek InformII metershould not be used for Glucose determinations.Draw a venous Glucose and send to the Main Lab for Analysis. POC Glucose, [id number] 08:50:00* Test Item Value Reference Range Comments POC Glucose (test code=POCGLUC) 168 mg/dL 70-115 If you consider your patient critically ill, the Sae Accu-Chek InformII metershould not be used for Glucose determinations.Draw a venous Glucose and send to the Main Lab for Analysis. Renal [id number] 07:27:00* Test Item Value Reference Range Comments Sodium (test code=NA) 133 mmol/L 135-145 Potassium (test code=K) 3.7 mmol/L 3.5-5.1 Chloride (test code=CL) 96 mmol/L 98-105 Carbon Dioxide (test code=CO2) 32 mmol/L 22-29 Glucose (test code=GLU) 247 mg/dL 70-115 Blood Urea Nitrogen (test code=BUN) 21 mg/dL 6-20 Creatinine (test code=CREAT) 1.4 mg/dL 0.7-1.2 Calcium (test code=CA) 8.5 mg/dL 8.3-10.5 Albumin (test code=ALB) 3.6 g/dL 3.5-5.2 Phosphorus (test code=PO4) 3.7 mg/dL 2.70-4.50 BUN/Creatinine Ratio (test code=BCRATIO) 15.0 Anion Gap (test code=AGAP) 5 mmol/L 7-16 Estimated GFR (test code=GFR) 57 mL/min/1.73m2 eGFR (estimated Glomerular Filtration Rate) is an estimated value,calculated from the patient's serum creatinine using the MDRD equation.It is NOT the patient's actual GFR. The eGFR provides a more clinicallyuseful measure of kidney disease than serum creatinine alone.This calculation takes sex and race into account, if the informationis provided. If the race is not provided, and the patient is[place], multiply by 1.212. If sex is not provided, and thepatient is female, multiply by 0.742. Results for patients <18 years ofage have not been validated by the MDRD study and should be interpretedwith caution.eGFR Result Interpretation:eGFR > or=60 is in the Normal RangeeGFR < 60 may mean kidney diseaseeGFR < 15 may mean kidney failureRanges recommended by the National Kidney Foundat ion,http://nkdep.nih.gov Magnesium, [id number] 07:22:00* Test Item Value Reference Range Comments Magnesium (test code=MG) 2.1 mg/dL 1.7-2.5 CBC with [id number] 07:20:00* Test Item Value Reference Range Comments WBC (test code=WBC) 7.2 K/cumm 4.4-10.5 RBC (test code=RBC) 4.21 M/cumm 4.10-5.70 Hemoglobin (test code=HGB) 13.3 gm/dL 13.4-17.4 Hematocrit (test code=HCT) 37.8 % 38.7-52.0 MCV (test code=MCV) 89.7 fL 80-100 MCH (test code=MCH) 31.6 pg 27.0-32.5 MCHC (test code=MCHC) 35.3 g/dL 32.0-37.5 RDW (test code=RDW) 15.7 % 11.5-14.5 Platelet Count (test code=PLTCT) 179 K/cumm 140-440 MPV (test code=MPV) 7.8 fL Diff Method (test code=DIFFM) Auto Neutrophil (test code=NEUT) 70.2 % 36-70 Lymphocyte (test code=LYMPH) 18.3 % 12-44 Monocyte (test code=MONO) 8.1 % 0-11 Eosinophil (test code=EOS) 3.1 % 0-7 Basophil (test code=BASO) 0.3 % 0-2 Neutro Abs (test code=ANEUT) 5.1 K/cumm 1.6-7.4 Lymph Abs (test code=ALYMPH) 1.3 K/cumm 0.5-4.6 [place] Abs (test code=AMONO) 0.6 K/cumm 0.0-1.2 Eos Abs (test code=AEOS) 0.22 K/cumm 0.00-0.74 Baso Abs (test code=ABASO) 0.0 K/cumm 0.00-0.21 POC Glucose, [id number] 20:29:00* Test Item Value Reference Range Comments POC Glucose (test code=POCGLUC) 293 mg/dL 70-115 If you consider your patient critically ill, the Sae Accu-Chek InformII metershould not be used for Glucose determinations.Draw a venous Glucose and send to the Main Lab for Analysis. POC Glucose, [id number] 16:34:00* Test Item Value Reference Range Comments POC Glucose (test code=POCGLUC) 346 mg/dL 70-115 Notify RN or MDIf you consider your patient critically ill, the Sae Accu-Chek InformII metershould not be used for Glucose determinations.Draw a venous Glucose and send to the Main Lab for Analysis. POC Glucose, [id number] 12:17:00* Test Item Value Reference Range Comments POC Glucose (test code=POCGLUC) 303 mg/dL 70-115 Notify RN or MDIf you consider your patient critically ill, the Sae Accu-Chek InformII metershould not be used for Glucose determinations.Draw a venous Glucose and send to the Main Lab for Analysis. CBC with [id number] 08:37:00* Test Item Value Reference Range Comments WBC (test code=WBC) 6.4 K/cumm 4.4-10.5 RBC (test code=RBC) 4.31 M/cumm 4.10-5.70 Hemoglobin (test code=HGB) 13.4 gm/dL 13.4-17.4 Hematocrit (test code=HCT) 38.8 % 38.7-52.0 MCV (test code=MCV) 90.0 fL 80-100 MCH (test code=MCH) 31.1 pg 27.0-32.5 MCHC (test code=MCHC) 34.5 g/dL 32.0-37.5 RDW (test code=RDW) 15.9 % 11.5-14.5 Platelet Count (test code=PLTCT) 187 K/cumm 140-440 MPV (test code=MPV) 7.7 fL Diff Method (test code=DIFFM) Auto Neutrophil (test code=NEUT) 71.1 % 36-70 Lymphocyte (test code=LYMPH) 17.7 % 12-44 Monocyte (test code=MONO) 7.6 % 0-11 Eosinophil (test code=EOS) 3.2 % 0-7 Basophil (test code=BASO) 0.5 % 0-2 Neutro Abs (test code=ANEUT) 4.6 K/cumm 1.6-7.4 Lymph Abs (test code=ALYMPH) 1.1 K/cumm 0.5-4.6 [place] Abs (test code=AMONO) 0.5 K/cumm 0.0-1.2 Eos Abs (test code=AEOS) 0.20 K/cumm 0.00-0.74 Baso Abs (test code=ABASO) 0.0 K/cumm 0.00-0.21 Renal [id number] 08:26:00* Test Item Value Reference Range Comments Sodium (test code=NA) 139 mmol/L 135-145 Potassium (test code=K) 3.5 mmol/L 3.5-5.1 Chloride (test code=CL) 98 mmol/L 98-105 Carbon Dioxide (test code=CO2) 34 mmol/L 22-29 Glucose (test code=GLU) 166 mg/dL 70-115 Blood Urea Nitrogen (test code=BUN) 21 mg/dL 6-20 Creatinine (test code=CREAT) 1.5 mg/dL 0.7-1.2 Calcium (test code=CA) 8.5 mg/dL 8.3-10.5 Albumin (test code=ALB) 3.7 g/dL 3.5-5.2 Phosphorus (test code=PO4) 4.5 mg/dL 2.70-4.50 BUN/Creatinine Ratio (test code=BCRATIO) 14.0 Anion Gap (test code=AGAP) 7 mmol/L 7-16 Estimated GFR (test code=GFR) 52 mL/min/1.73m2 eGFR (estimated Glomerular Filtration Rate) is an estimated value,calculated from the patient's serum creatinine using the MDRD equation.It is NOT the patient's actual GFR. The eGFR provides a more clinicallyuseful measure of kidney disease than serum creatinine alone.This calculation takes sex and race into account, if the informationis provided. If the race is not provided, and the patient is[place], multiply by 1.212. If sex is not provided, and thepatient is female, multiply by 0.742. Results for patients <18 years ofage have not been validated by the MDRD study and should be interpretedwith caution.eGFR Result Interpretation:eGFR > or=60 is in the Normal RangeeGFR < 60 may mean kidney diseaseeGFR < 15 may mean kidney failureRanges recommended by the National Kidney Foundat ion,http://nkdep.nih.gov Basic Metabolic [id number] 08:25:00* Test Item Value Reference Range Comments Sodium (test code=NA) 138 mmol/L 135-145 Potassium (test code=K) 3.4 mmol/L 3.5-5.1 Chloride (test code=CL) 97 mmol/L 98-105 Carbon Dioxide (test code=CO2) 33 mmol/L 22-29 Glucose (test code=GLU) 160 mg/dL 70-115 Blood Urea Nitrogen (test code=BUN) 21 mg/dL 6-20 Creatinine (test code=CREAT) 1.5 mg/dL 0.7-1.2 Calcium (test code=CA) 8.6 mg/dL 8.3-10.5 BUN/Creatinine Ratio (test code=BCRATIO) 14.0 Anion Gap (test code=AGAP) 8 mmol/L 7-16 Estimated GFR (test code=GFR) 52 mL/min/1.73m2 eGFR (estimated Glomerular Filtration Rate) is an estimated value,calculated from the patient's serum creatinine using the MDRD equation.It is NOT the patient's actual GFR. The eGFR provides a more clinicallyuseful measure of kidney disease than serum creatinine alone.This calculation takes sex and race into account, if the informationis provided. If the race is not provided, and the patient is[place], multiply by 1.212. If sex is not provided, and thepatient is female, multiply by 0.742. Results for patients <18 years ofage have not been validated by the MDRD study and should be interpretedwith caution.eGFR Result Interpretation:eGFR > or=60 is in the Normal RangeeGFR < 60 may mean kidney diseaseeGFR < 15 may mean kidney failureRanges recommended by the National Kidney Foundat ion,http://nkdep.nih.gov Magnesium, [id number] 08:23:00* Test Item Value Reference Range Comments Magnesium (test code=MG) 2.0 mg/dL 1.7-2.5 POC Glucose, [id number] 07:58:00* Test Item Value Reference Range Comments POC Glucose (test code=POCGLUC) 146 mg/dL 70-115 Notify RN or If you consider your patient critically ill, the Sae Accu-Chek InformII metershould not be used for Glucose determinations.Draw a venous Glucose and send to the Main Lab for Analysis. POC Glucose, [id number] 06:29:00* Test Item Value Reference Range Comments POC Glucose (test code=POCGLUC) 181 mg/dL 70-115 If you consider your patient critically ill, the Sae Accu-Chek InformII metershould not be used for Glucose determinations.Draw a venous Glucose and send to the Main Lab for Analysis. POC Glucose, [id number] 20:12:00* Test Item Value Reference Range Comments POC Glucose (test code=POCGLUC) 242 mg/dL 70-115 If you consider your patient critically ill, the Sae Accu-Chek InformII metershould not be used for Glucose determinations.Draw a venous Glucose and send to the Main Lab for Analysis. POC Glucose, [id number] 20:12:00* Test Item Value Reference Range Comments POC Glucose (test code=POCGLUC) 124 mg/dL 70-115 If you consider your patient critically ill, the Sae Accu-Chek InformII metershould not be used for Glucose determinations.Draw a venous Glucose and send to the Main Lab for Analysis. POC Glucose, [id number] 16:21:00* Test Item Value Reference Range Comments POC Glucose (test code=POCGLUC) 271 mg/dL 70-115 Notify RN or MDIf you consider your patient critically ill, the Sae Accu-Chek InformII metershould not be used for Glucose determinations.Draw a venous Glucose and send to the Main Lab for Analysis. POC Glucose, [id number] 12:27:00* Test Item Value Reference Range Comments POC Glucose (test code=POCGLUC) 288 mg/dL 70-115 If you consider your patient critically ill, the Sae Accu-Chek InformII metershould not be used for Glucose determinations.Draw a venous Glucose and send to the Main Lab for Analysis. Renal [id number] 08:29:00* Test Item Value Reference Range Comments Sodium (test code=NA) 138 mmol/L 135-145 Potassium (test code=K) 3.7 mmol/L 3.5-5.1 Chloride (test code=CL) 96 mmol/L 98-105 Carbon Dioxide (test code=CO2) 31 mmol/L 22-29 Glucose (test code=GLU) 180 mg/dL 70-115 Blood Urea Nitrogen (test code=BUN) 21 mg/dL 6-20 Creatinine (test code=CREAT) 1.5 mg/dL 0.7-1.2 Calcium (test code=CA) 8.8 mg/dL 8.3-10.5 Albumin (test code=ALB) 3.8 g/dL 3.5-5.2 Phosphorus (test code=PO4) 4.6 mg/dL 2.70-4.50 BUN/Creatinine Ratio (test code=BCRATIO) 14.0 Anion Gap (test code=AGAP) 11 mmol/L 7-16 Estimated GFR (test code=GFR) 52 mL/min/1.73m2 eGFR (estimated Glomerular Filtration Rate) is an estimated value,calculated from the patient's serum creatinine using the MDRD equation.It is NOT the patient's actual GFR. The eGFR provides a more clinicallyuseful measure of kidney disease than serum creatinine alone.This calculation takes sex and race into account, if the informationis provided. If the race is not provided, and the patient is[place], multiply by 1.212. If sex is not provided, and thepatient is female, multiply by 0.742. Results for patients <18 years ofage have not been validated by the MDRD study and should be interpretedwith caution.eGFR Result Interpretation:eGFR > or=60 is in the Normal RangeeGFR < 60 may mean kidney diseaseeGFR < 15 may mean kidney failureRanges recommended by the National Kidney Foundat ion,http://nkdep.nih.gov Magnesium, [id number] 08:25:00* Test Item Value Reference Range Comments Magnesium (test code=MG) 1.9 mg/dL 1.7-2.5 CBC with [id number] 08:21:00* Test Item Value Reference Range Comments WBC (test code=WBC) 7.4 K/cumm 4.4-10.5 RBC (test code=RBC) 4.54 M/cumm 4.10-5.70 Hemoglobin (test code=HGB) 14.0 gm/dL 13.4-17.4 Hematocrit (test code=HCT) 40.8 % 38.7-52.0 MCV (test code=MCV) 89.9 fL 80-100 MCH (test code=MCH) 30.9 pg 27.0-32.5 MCHC (test code=MCHC) 34.4 g/dL 32.0-37.5 RDW (test code=RDW) 15.9 % 11.5-14.5 Platelet Count (test code=PLTCT) 169 K/cumm 140-440 MPV (test code=MPV) 8.0 fL Diff Method (test code=DIFFM) Auto Neutrophil (test code=NEUT) 75.5 % 36-70 Lymphocyte (test code=LYMPH) 15.3 % 12-44 Monocyte (test code=MONO) 5.5 % 0-11 Eosinophil (test code=EOS) 3.4 % 0-7 Basophil (test code=BASO) 0.4 % 0-2 Neutro Abs (test code=ANEUT) 5.6 K/cumm 1.6-7.4 Lymph Abs (test code=ALYMPH) 1.1 K/cumm 0.5-4.6 [place] Abs (test code=AMONO) 0.4 K/cumm 0.0-1.2 Eos Abs (test code=AEOS) 0.25 K/cumm 0.00-0.74 Baso Abs (test code=ABASO) 0.0 K/cumm 0.00-0.21 POC Glucose, [id number] 19:46:00* Test Item Value Reference Range Comments POC Glucose (test code=POCGLUC) 326 mg/dL 70-115 If you consider your patient critically ill, the Sae Accu-Chek InformII metershould not be used for Glucose determinations.Draw a venous Glucose and send to the Main Lab for Analysis. POC Glucose, [id number] 16:04:00* Test Item Value Reference Range Comments POC Glucose (test code=POCGLUC) 343 mg/dL 70-115 Notify RN or MDIf you consider your patient critically ill, the Sae Accu-Chek InformII metershould not be used for Glucose determinations.Draw a venous Glucose and send to the Main Lab for Analysis. XR CHEST 1 [id number] 14:17:49EXAM: Portable AP chest x-rayLOCATION: R16 INDICATION: chf COMPARISON: 11/11/16FINDINGS:The cardiac silhouette is enlarged. Left chest wall single leadpacemaker. There is no focal consolidation. There is no pleuraleffusion or pneumothorax. IMPRESSION:Cardiomegaly.POC Glucose, [id number] 11:34:00* Test Item Value Reference Range Comments POC Glucose (test code=POCGLUC) 262 mg/dL 70-115 If you consider your patient critically ill, the Sae Accu-Chek InformII metershould not be used for Glucose determinations.Draw a venous Glucose and send to the Main Lab for Analysis. POC Glucose, [id number] 06:59:00* Test Item Value Reference Range Comments POC Glucose (test code=POCGLUC) 201 mg/dL 70-115 If you consider your patient critically ill, the Sae Accu-Chek InformII metershould not be used for Glucose determinations.Draw a venous Glucose and send to the Main Lab for Analysis. POC Glucose, [id number] 19:42:00* Test Item Value Reference Range Comments POC Glucose (test code=POCGLUC) 390 mg/dL 70-115 If you consider your patient critically ill, the Sae Accu-Chek InformII metershould not be used for Glucose determinations.Draw a venous Glucose and send to the Main Lab for Analysis. POC Glucose, [id number] 16:59:00* Test Item Value Reference Range Comments POC Glucose (test code=POCGLUC) 284 mg/dL 70-115 If you consider your patient critically ill, the Sae Accu-Chek InformII metershould not be used for Glucose determinations.Draw a venous Glucose and send to the Main Lab for Analysis. POC Glucose, [id number] 12:42:00* Test Item Value Reference Range Comments POC Glucose (test code=POCGLUC) 376 mg/dL 70-115 Notify RN or MDIf you consider your patient critically ill, the Sae Accu-Chek InformII metershould not be used for Glucose determinations.Draw a venous Glucose and send to the Main Lab for Analysis. POC Glucose, [id number] 08:55:00* Test Item Value Reference Range Comments POC Glucose (test code=POCGLUC) 238 mg/dL 70-115 If you consider your patient critically ill, the Sae Accu-Chek InformII metershould not be used for Glucose determinations.Draw a venous Glucose and send to the Main Lab for Analysis. Glycosylated [id number] 07:01:00* Test Item Value Reference Range Comments HBA1c (test code=HBA1C) 7.1 % 4.8-5.9 Renal [id number] 06:51:00* Test Item Value Reference Range Comments Sodium (test code=NA) 138 mmol/L 135-145 Potassium (test code=K) 4.0 mmol/L 3.5-5.1 Chloride (test code=CL) 98 mmol/L 98-105 Carbon Dioxide (test code=CO2) 28 mmol/L 22-29 Glucose (test code=GLU) 246 mg/dL 70-115 Blood Urea Nitrogen (test code=BUN) 14 mg/dL 6-20 Creatinine (test code=CREAT) 1.5 mg/dL 0.7-1.2 Calcium (test code=CA) 8.5 mg/dL 8.3-10.5 Albumin (test code=ALB) 3.8 g/dL 3.5-5.2 Phosphorus (test code=PO4) 3.8 mg/dL 2.70-4.50 BUN/Creatinine Ratio (test code=BCRATIO) 9.3 Anion Gap (test code=AGAP) 12 mmol/L 7-16 Estimated GFR (test code=GFR) 52 mL/min/1.73m2 eGFR (estimated Glomerular Filtration Rate) is an estimated value,calculated from the patient's serum creatinine using the MDRD equation.It is NOT the patient's actual GFR. The eGFR provides a more clinicallyuseful measure of kidney disease than serum creatinine alone.This calculation takes sex and race into account, if the informationis provided. If the race is not provided, and the patient is[place], multiply by 1.212. If sex is not provided, and thepatient is female, multiply by 0.742. Results for patients <18 years ofage have not been validated by the MDRD study and should be interpretedwith caution.eGFR Result Interpretation:eGFR > or=60 is in the Normal RangeeGFR < 60 may mean kidney diseaseeGFR < 15 may mean kidney failureRanges recommended by the National Kidney Foundat ion,http://nkdep.nih.gov CBC with [id number] 06:37:00* Test Item Value Reference Range Comments WBC (test code=WBC) 9.0 K/cumm 4.4-10.5 RBC (test code=RBC) 4.22 M/cumm 4.10-5.70 Hemoglobin (test code=HGB) 13.1 gm/dL 13.4-17.4 Hematocrit (test code=HCT) 37.9 % 38.7-52.0 MCV (test code=MCV) 89.9 fL 80-100 MCH (test code=MCH) 31.0 pg 27.0-32.5 MCHC (test code=MCHC) 34.5 g/dL 32.0-37.5 RDW (test code=RDW) 15.5 % 11.5-14.5 Platelet Count (test code=PLTCT) 178 K/cumm 140-440 MPV (test code=MPV) 8.0 fL Diff Method (test code=DIFFM) Auto Neutrophil (test code=NEUT) 83.0 % 36-70 Lymphocyte (test code=LYMPH) 12.7 % 12-44 Monocyte (test code=MONO) 3.2 % 0-11 Eosinophil (test code=EOS) 0.8 % 0-7 Basophil (test code=BASO) 0.2 % 0-2 Neutro Abs (test code=ANEUT) 7.5 K/cumm 1.6-7.4 Lymph Abs (test code=ALYMPH) 1.1 K/cumm 0.5-4.6 [place] Abs (test code=AMONO) 0.3 K/cumm 0.0-1.2 Eos Abs (test code=AEOS) 0.07 K/cumm 0.00-0.74 Baso Abs (test code=ABASO) 0.0 K/cumm 0.00-0.21 Prothrombin [id number] 06:34:00* Test Item Value Reference Range Comments PT (test code=PT) 19.50 seconds 9.78-13.35 INR (test code=INR) 1.74 Ratio 0.6-1.2 [id number] 06:32:00* Test Item Value Reference Range Comments NT ProBnp (test code=PBNP) 6683 pg/mL 0-124 Troponin [id number] 06:32:00* Test Item Value Reference Range Comments Troponin T (test code=BREANNA) <0.010 ng/mL 0.000-0.090 CK [id number] 06:32:00* Test Item Value Reference Range Comments CK (test code=CK) 125 U/L 39-308 CK [id number] 06:32:00* Test Item Value Reference Range Comments CK (test code=CK) 125 U/L 39-308 CKMB (test code=CKMB) 2.4 ng/mL 0.0-4.9 CKMB% (test code=CKMBP) 1.9 % 0.0-3.4 POC Glucose, [id number] 06:02:00* Test Item Value Reference Range Comments POC Glucose (test code=POCGLUC) 226 mg/dL 70-115 If you consider your patient critically ill, the Sae Accu-Chek InformII metershould not be used for Glucose determinations.Draw a venous Glucose and send to the Main Lab for Analysis. CK [id number] 23:41:00* Test Item Value Reference Range Comments CK (test code=CK) 175 U/L 39-308 CK [id number] 23:41:00* Test Item Value Reference Range Comments CK (test code=CK) 175 U/L 39-308 CKMB (test code=CKMB) 3.1 ng/mL 0.0-4.9 CKMB% (test code=CKMBP) 1.8 % 0.0-3.4 Troponin [id number] 23:39:00* Test Item Value Reference Range Comments Troponin T (test code=BREANNA) <0.010 ng/mL 0.000-0.090 POC Glucose, [id number] 20:07:00* Test Item Value Reference Range Comments POC Glucose (test code=POCGLUC) 310 mg/dL 70-115 If you consider your patient critically ill, the Sae Accu-Chek InformII metershould not be used for Glucose determinations.Draw a venous Glucose and send to the Main Lab for Analysis. POC Glucose, [id number] 15:22:00* Test Item Value Reference Range Comments POC Glucose (test code=POCGLUC) 314 mg/dL 70-115 Notify RN or MDIf you consider your patient critically ill, the Sae Accu-Chek InformII metershould not be used for Glucose determinations.Draw a venous Glucose and send to the Main Lab for Analysis. POC Glucose, [id number] 12:14:00* Test Item Value Reference Range Comments POC Glucose (test code=POCGLUC) 375 mg/dL 70-115 Notify RN or MDIf you consider your patient critically ill, the Sae Accu-Chek InformII metershould not be used for Glucose determinations.Draw a venous Glucose and send to the Main Lab for Analysis. POC Glucose, [id number] 10:53:00* Test Item Value Reference Range Comments POC Glucose (test code=POCGLUC) 362 mg/dL 70-115 Notify RN or MDIf you consider your patient critically ill, the Sae Accu-Chek InformII metershould not be used for Glucose determinations.Draw a venous Glucose and send to the Main Lab for Analysis. POC Glucose, [id number] 06:21:00* Test Item Value Reference Range Comments POC Glucose (test code=POCGLUC) 243 mg/dL 70-115 If you consider your patient critically ill, the Sae Accu-Chek InformII metershould not be used for Glucose determinations.Draw a venous Glucose and send to the Main Lab for Analysis. POC Glucose, [id number] 20:44:00* Test Item Value Reference Range Comments POC Glucose (test code=POCGLUC) 424 mg/dL 70-115 Notify RN or MD POC Glucose, [id number] 20:44:00* Test Item Value Reference Range Comments POC Glucose (test code=POCGLUC) 405 mg/dL 70-115 Repeat Test POC Glucose, [id number] 15:32:00* Test Item Value Reference Range Comments POC Glucose (test code=POCGLUC) 389 mg/dL 70-115 Notify RN or MDIf you consider your patient critically ill, the Sae Accu-Chek InformII metershould not be used for Glucose determinations.Draw a venous Glucose and send to the Main Lab for Analysis. POC Glucose, [id number] 15:32:00* Test Item Value Reference Range Comments POC Glucose (test code=POCGLUC) 441 mg/dL 70-115 Notify RN or MD POC Glucose, [id number] 11:19:00* Test Item Value Reference Range Comments POC Glucose (test code=POCGLUC) 360 mg/dL 70-115 Notify RN or MDIf you consider your patient critically ill, the Sae Accu-Chek InformII metershould not be used for Glucose determinations.Draw a venous Glucose and send to the Main Lab for Analysis. POC Glucose, [id number] 06:09:00* Test Item Value Reference Range Comments POC Glucose (test code=POCGLUC) 198 mg/dL 70-115 If you consider your patient critically ill, the Sae Accu-Chek InformII metershould not be used for Glucose determinations.Draw a venous Glucose and send to the Main Lab for Analysis. CK [id number] 02:02:00* Test Item Value Reference Range Comments CK (test code=CK) 244 U/L 39-308 CK [id number] 02:02:00* Test Item Value Reference Range Comments CK (test code=CK) 244 U/L 39-308 CKMB (test code=CKMB) 4.7 ng/mL 0.0-4.9 CKMB% (test code=CKMBP) 1.9 % 0.0-3.4 Troponin [id number] 02:02:00* Test Item Value Reference Range Comments Troponin T (test code=BREANNA) <0.010 ng/mL 0.000-0.090 POC Glucose, [id number] 20:03:00* Test Item Value Reference Range Comments POC Glucose (test code=POCGLUC) 358 mg/dL 70-115 If you consider your patient critically ill, the Sae Accu-Chek InformII metershould not be used for Glucose determinations.Draw a venous Glucose and send to the Main Lab for Analysis. POC Glucose, [id number] 15:43:00* Test Item Value Reference Range Comments POC Glucose (test code=POCGLUC) 347 mg/dL 70-115 Notify RN or MDIf you consider your patient critically ill, the Sae Accu-Chek InformII metershould not be used for Glucose determinations.Draw a venous Glucose and send to the Main Lab for Analysis. POC Glucose, [id number] 11:10:00* Test Item Value Reference Range Comments POC Glucose (test code=POCGLUC) 355 mg/dL 70-115 If you consider your patient critically ill, the Sae Accu-Chek InformII metershould not be used for Glucose determinations.Draw a venous Glucose and send to the Main Lab for Analysis. POC Glucose, [id number] 06:37:00* Test Item Value Reference Range Comments POC Glucose (test code=POCGLUC) 314 mg/dL 70-115 If you consider your patient critically ill, the Sae Accu-Chek InformII metershould not be used for Glucose determinations.Draw a venous Glucose and send to the Main Lab for Analysis. POC Glucose, [id number] 19:18:00* Test Item Value Reference Range Comments POC Glucose (test code=POCGLUC) 408 mg/dL 70-115 Notify RN or MD POC Glucose, [id number] 15:06:00* Test Item Value Reference Range Comments POC Glucose (test code=POCGLUC) 361 mg/dL 70-115 Notify RN or MDIf you consider your patient critically ill, the Sae Accu-Chek InformII metershould not be used for Glucose determinations.Draw a venous Glucose and send to the Main Lab for Analysis. POC Glucose, [id number] 11:04:00* Test Item Value Reference Range Comments POC Glucose (test code=POCGLUC) 336 mg/dL 70-115 If you consider your patient critically ill, the Sae Accu-Chek InformII metershould not be used for Glucose determinations.Draw a venous Glucose and send to the Main Lab for Analysis. POC Glucose, [id number] 06:13:00* Test Item Value Reference Range Comments POC Glucose (test code=POCGLUC) 197 mg/dL 70-115 If you consider your patient critically ill, the Sae Accu-Chek InformII metershould not be used for Glucose determinations.Draw a venous Glucose and send to the Main Lab for Analysis. POC Glucose, [id number] 19:22:00* Test Item Value Reference Range Comments POC Glucose (test code=POCGLUC) 343 mg/dL 70-115 Notify RN or MDIf you consider your patient critically ill, the Sae Accu-Chek InformII metershould not be used for Glucose determinations.Draw a venous Glucose and send to the Main Lab for Analysis. POC Glucose, [id number] 15:21:00* Test Item Value Reference Range Comments POC Glucose (test code=POCGLUC) 286 mg/dL 70-115 If you consider your patient critically ill, the Sae Accu-Chek InformII metershould not be used for Glucose determinations.Draw a venous Glucose and send to the Main Lab for Analysis. POC Glucose, [id number] 06:12:00* Test Item Value Reference Range Comments POC Glucose (test code=POCGLUC) 241 mg/dL 70-115 Notify RN or MDIf you consider your patient critically ill, the Sae Accu-Chek InformII metershould not be used for Glucose determinations.Draw a venous Glucose and send to the Main Lab for Analysis. POC Glucose, [id number] 20:11:00* Test Item Value Reference Range Comments POC Glucose (test code=POCGLUC) 388 mg/dL 70-115 If you consider your patient critically ill, the Sae Accu-Chek InformII metershould not be used for Glucose determinations.Draw a venous Glucose and send to the Main Lab for Analysis. POC Glucose, [id number] 15:33:00* Test Item Value Reference Range Comments POC Glucose (test code=POCGLUC) 345 mg/dL 70-115 If you consider your patient critically ill, the Sae Accu-Chek InformII metershould not be used for Glucose determinations.Draw a venous Glucose and send to the Main Lab for Analysis. POC Glucose, [id number] 12:22:00* Test Item Value Reference Range Comments POC Glucose (test code=POCGLUC) 289 mg/dL 70-115 Notify RN or MDIf you consider your patient critically ill, the Sae Accu-Chek InformII metershould not be used for Glucose determinations.Draw a venous Glucose and send to the Main Lab for Analysis. POC Glucose, [id number] 06:46:00* Test Item Value Reference Range Comments POC Glucose (test code=POCGLUC) 206 mg/dL 70-115 If you consider your patient critically ill, the Sae Accu-Chek InformII metershould not be used for Glucose determinations.Draw a venous Glucose and send to the Main Lab for Analysis. POC Glucose, [id number] 20:05:00* Test Item Value Reference Range Comments POC Glucose (test code=POCGLUC) 338 mg/dL 70-115 If you consider your patient critically ill, the Sae Accu-Chek InformII metershould not be used for Glucose determinations.Draw a venous Glucose and send to the Main Lab for Analysis. POC Glucose, [id number] 18:00:00* Test Item Value Reference Range Comments POC Glucose (test code=POCGLUC) 282 mg/dL 70-115 Notify RN or MDIf you consider your patient critically ill, the Sae Accu-Chek InformII metershould not be used for Glucose determinations.Draw a venous Glucose and send to the Main Lab for Analysis. POC Glucose, [id number] 12:40:00* Test Item Value Reference Range Comments POC Glucose (test code=POCGLUC) 311 mg/dL 70-115 Notify RN or MDIf you consider your patient critically ill, the Sae Accu-Chek InformII metershould not be used for Glucose determinations.Draw a venous Glucose and send to the Main Lab for Analysis. POC Glucose, [id number] 05:19:00* Test Item Value Reference Range Comments POC Glucose (test code=POCGLUC) 220 mg/dL 70-115 Notify RN or MDIf you consider your patient critically ill, the Sae Accu-Chek InformII metershould not be used for Glucose determinations.Draw a venous Glucose and send to the Main Lab for Analysis. POC Glucose, [id number] 19:43:00* Test Item Value Reference Range Comments POC Glucose (test code=POCGLUC) 300 mg/dL 70-115 If you consider your patient critically ill, the Sae Accu-Chek InformII metershould not be used for Glucose determinations.Draw a venous Glucose and send to the Main Lab for Analysis. POC Glucose, [id number] 15:26:00* Test Item Value Reference Range Comments POC Glucose (test code=POCGLUC) 245 mg/dL 70-115 Notify RN or MDIf you consider your patient critically ill, the Sae Accu-Chek InformII metershould not be used for Glucose determinations.Draw a venous Glucose and send to the Main Lab for Analysis. POC Glucose, [id number] 11:09:00* Test Item Value Reference Range Comments POC Glucose (test code=POCGLUC) 256 mg/dL 70-115 Notify RN or MDIf you consider your patient critically ill, the Sae Accu-Chek InformII metershould not be used for Glucose determinations.Draw a venous Glucose and send to the Main Lab for Analysis. POC Glucose, [id number] 05:49:00* Test Item Value Reference Range Comments POC Glucose (test code=POCGLUC) 146 mg/dL 70-115 Notify RN or MDIf you consider your patient critically ill, the Sae Accu-Chek InformII metershould not be used for Glucose determinations.Draw a venous Glucose and send to the Main Lab for Analysis. POC Glucose, [id number] 19:43:00* Test Item Value Reference Range Comments POC Glucose (test code=POCGLUC) 207 mg/dL 70-115 Notify RN or MDIf you consider your patient critically ill, the Sae Accu-Chek InformII metershould not be used for Glucose determinations.Draw a venous Glucose and send to the Main Lab for Analysis. POC Glucose, [id number] 15:41:00* Test Item Value Reference Range Comments POC Glucose (test code=POCGLUC) 191 mg/dL 70-115 If you consider your patient critically ill, the Sae Accu-Chek InformII metershould not be used for Glucose determinations.Draw a venous Glucose and send to the Main Lab for Analysis. POC Glucose, [id number] 11:45:00* Test Item Value Reference Range Comments POC Glucose (test code=POCGLUC) 204 mg/dL 70-115 Notify RN or MDIf you consider your patient critically ill, the Sae Accu-Chek InformII metershould not be used for Glucose determinations.Draw a venous Glucose and send to the Main Lab for Analysis. POC Glucose, [id number] 06:05:00* Test Item Value Reference Range Comments POC Glucose (test code=POCGLUC) 148 mg/dL 70-115 Notify RN or MDIf you consider your patient critically ill, the Sae Accu-Chek InformII metershould not be used for Glucose determinations.Draw a venous Glucose and send to the Main Lab for Analysis. POC Glucose, [id number] 19:44:00* Test Item Value Reference Range Comments POC Glucose (test code=POCGLUC) 198 mg/dL 70-115 Notify RN or MDIf you consider your patient critically ill, the Sae Accu-Chek InformII metershould not be used for Glucose determinations.Draw a venous Glucose and send to the Main Lab for Analysis. POC Glucose, [id number] 16:04:00* Test Item Value Reference Range Comments POC Glucose (test code=POCGLUC) 176 mg/dL 70-115 Notify RN or MDIf you consider your patient critically ill, the Sae Accu-Chek InformII metershould not be used for Glucose determinations.Draw a venous Glucose and send to the Main Lab for Analysis. POC Glucose, [id number] 11:03:00* Test Item Value Reference Range Comments POC Glucose (test code=POCGLUC) 217 mg/dL 70-115 Notify RN or MDIf you consider your patient critically ill, the Sae Accu-Chek InformII metershould not be used for Glucose determinations.Draw a venous Glucose and send to the Main Lab for Analysis. POC Glucose, [id number] 05:08:00* Test Item Value Reference Range Comments POC Glucose (test code=POCGLUC) 127 mg/dL 70-115 Notify RN or MDIf you consider your patient critically ill, the Sae Accu-Chek InformII metershould not be used for Glucose determinations.Draw a venous Glucose and send to the Main Lab for Analysis. POC Glucose, [id number] 23:52:00* Test Item Value Reference Range Comments POC Glucose (test code=POCGLUC) 166 mg/dL 70-115 Notify RN or MDIf you consider your patient critically ill, the Sae Accu-Chek InformII metershould not be used for Glucose determinations.Draw a venous Glucose and send to the Main Lab for Analysis. POC Glucose, [id number] 19:15:00* Test Item Value Reference Range Comments POC Glucose (test code=POCGLUC) 197 mg/dL 70-115 Notify RN or MDIf you consider your patient critically ill, the Sae Accu-Chek InformII metershould not be used for Glucose determinations.Draw a venous Glucose and send to the Main Lab for Analysis. POC Glucose, [id number] 14:57:00* Test Item Value Reference Range Comments POC Glucose (test code=POCGLUC) 130 mg/dL 70-115 Notify RN or MDIf you consider your patient critically ill, the Sae Accu-Chek InformII metershould not be used for Glucose determinations.Draw a venous Glucose and send to the Main Lab for Analysis. POC Glucose, [id number] 12:02:00* Test Item Value Reference Range Comments POC Glucose (test code=POCGLUC) 210 mg/dL 70-115 Notify RN or MDIf you consider your patient critically ill, the Sae Accu-Chek InformII metershould not be used for Glucose determinations.Draw a venous Glucose and send to the Main Lab for Analysis. RPR, [id number] 03:46:00* Test Item Value Reference Range Comments RPR (test code=RPR) Non-Reactive Non-Reactive POC Glucose, [id number] 00:00:00* Test Item Value Reference Range Comments POC Glucose (test code=POCGLUC) 88 mg/dL 70-115 If you consider your patient critically ill, the Sae Accu-Chek InformII metershould not be used for Glucose determinations.Draw a venous Glucose and send to the Main Lab for Analysis. Thyroid Stimulating Hormone (TSH)2016-11-11 22:06:00* Test Item Value Reference Range Comments TSH (test code=TSH) 1.13 mIU/mL 0.270-4.200 Lipid [id number] 22:04:00* Test Item Value Reference Range Comments Cholesterol (test code=CHOL) 199 mg/dL 0-200 Triglycerides (test code=TRIG) 244 mg/dL 9-200 HDL (test code=HDL) 30 mg/dL 40-60 Chol/HDL (test code=CHOLPHDL) 6.6 Ratio 0.0-5.0 LDL, Calculated (test code=LDLC) 120 0-130 (NOTE)RISK OF HEART DISEASEPublished by [place] Heart AssociationAnalyte Optimal Boderline Increased RiskCHOL <200 200-239 >240TRIG <150 150- 199 >200HDL Male: >60 <40HDL Female: >60 <50LDL <100 130-159 >160LDL NEAR OPTIMAL IS 100-129 VLDL (test code=VLDL) 49 mg/dL 5-40 LDL/HDL (test code=LDLPHDL) 4 [id number] 22:04:00* Test Item Value Reference Range Comments NT ProBnp (test code=PBNP) 1865 pg/mL 0-124 Alcohol/Ethanol, [id number] 22:03:00* Test Item Value Reference Range Comments Alcohol, Ethyl (test code=ETOH) <0.01 g/dL 0.00-0.01 Intoxicated 0.080 g/dL or more Comprehensive Metabolic [id number] 22:03:00* Test Item Value Reference Range Comments Sodium (test code=NA) 139 mmol/L 135-145 Potassium (test code=K) 3.9 mmol/L 3.5-5.1 Chloride (test code=CL) 100 mmol/L 98-105 Carbon Dioxide (test code=CO2) 24 mmol/L 22-29 Glucose (test code=GLU) 71 mg/dL 70-115 Blood Urea Nitrogen (test code=BUN) 20 mg/dL 6-20 Creatinine (test code=CREAT) 1.6 mg/dL 0.7-1.2 Calcium (test code=CA) 9.4 mg/dL 8.3-10.5 Prot Total (test code=TP) 7.3 g/dL 6.4-8.3 Albumin (test code=ALB) 4.3 g/dL 3.5-5.2 A/G Ratio (test code=AGRATIO) 1.4 Ratio Globulin (test code=GLOB) 3.0 2.9-3.1 Bili Total (test code=TBIL) 0.3 mg/dL 0.1-0.9 Alk Phos (test code=APHOS) 90 U/L 40-129 AST (test code=AST) 36 U/L 1-40 HEMOLYZED ALT (test code=ALT) 22 U/L 1-41 BUN/Creatinine Ratio (test code=BCRATIO) 12.5 Anion Gap (test code=AGAP) 15 mmol/L 7-16 Estimated GFR (test code=GFR) 48 mL/min/1.73m2 eGFR (estimated Glomerular Filtration Rate) is an estimated value,calculated from the patient's serum creatinine using the MDRD equation.It is NOT the patient's actual GFR. The eGFR provides a more clinicallyuseful measure of kidney disease than serum creatinine alone.This calculation takes sex and race into account, if the informationis provided. If the race is not provided, and the patient isAfrican-[place], multiply by 1.212. If sex is not provided, and thepatient is female, multiply by 0.742. Results for patients <18 years ofage have not been validated by the MDRD study and should be interpretedwith caution.eGFR Result Interpretation:eGFR > or=60 is in the Normal RangeeGFR < 60 may mean kidney diseaseeGFR < 15 may mean kidney failureRanges recommended by the National Kidney Foundat ion,http://nkdep.nih.gov Urinalysis [id number] 21:50:00* Test Item Value Reference Range Comments Color (test code=COLOR) Yellow Yellow,Straw,Pl yellow Clarity (test code=CLAR) Cloudy Clear Specific [place] (test code=SPGR) 1.029 1.001-1.035 pH (test code=PH) 5.0 5.0-9.0 Ketone (test code=KET) 5 mg/dL Negative Glucose (test code=GLUCUR) Negative mg/dL Negative Protein (test code=PROT) 25 mg/dL Negative Bilirubin (test code=BILI) Negative mg/dL Negative Occult Blood (test code=UDOB) Negative Negative Urobilinogen (test code=UROB) 0.2 mg/dL 0.2-1.0 Nitrite (test code=NIT) Negative Negative Leuk Esterase (test code=LEUK) Negative Negative Micros Exam (test code=MEXAM) Indicated Epithelial Cells (test code=EPI) None /LPF 0-30 WBC, Urine (test code=UWBC) None seen /HPF 0-5 RBC, Urine (test code=URBC) None Seen /HPF 0-5 Amorph Deposit (test code=AMORD) Mod /HPF Bacteria (test code=BACT) Few /HPF [id number] 21:49:00* Test Item Value Reference Range Comments Amphetamine (test code=AMPH) Negative Negative For diagnostic purposes only, positive results should always be assessedin conjunctionwith the patient's medical history,clinical examination and otherfindings.To fulfill legal requirements, a more specific alternate chemical methodmust be used inorder to obtain a Confirmed analytical result. GC/MS is the preferred confirmatory method. Barbiturates (test code=RADHA) Negative Negative Benzodiazepine (test code=CAITLIN) Negative Negative Cocaine (test code=COCA) Negative Negative Methadone (test code=MTHD) Negative Negative Opiates (test code=OPIA) Negative Negative PCP (test code=PCP) Negative Negative Propoxyphene (test code=PROPOX) Negative Negative THC (test code=THC) Negative Negative Alcohol, Urine (test code=ETOHU) <0.01 g/dL 0.00-0.01 Prothrombin [id number] 21:49:00* Test Item Value Reference Range Comments PT (test code=PT) 26.60 seconds 9.78-13.35 INR (test code=INR) 2.35 Ratio 0.6-1.2 Partial Thromboplastin [id number] 21:49:00* Test Item Value Reference Range Comments aPTT (test code=PTT) 42.40 seconds 24.39-37.25 CBC with [id number] 21:43:00* Test Item Value Reference Range Comments WBC (test code=WBC) 8.5 K/cumm 4.4-10.5 RBC (test code=RBC) 4.94 M/cumm 4.10-5.70 Hemoglobin (test code=HGB) 15.5 gm/dL 13.4-17.4 Hematocrit (test code=HCT) 43.3 % 38.7-52.0 MCV (test code=MCV) 87.8 fL 80-100 MCH (test code=MCH) 31.3 pg 27.0-32.5 MCHC (test code=MCHC) 35.7 g/dL 32.0-37.5 RDW (test code=RDW) 14.0 % 11.5-14.5 Platelet Count (test code=PLTCT) 201 K/cumm 140-440 MPV (test code=MPV) 7.3 fL Diff Method (test code=DIFFM) Auto Neutrophil (test code=NEUT) 75.4 % 36-70 Lymphocyte (test code=LYMPH) 14.1 % 12-44 Monocyte (test code=MONO) 8.7 % 0-11 Eosinophil (test code=EOS) 1.4 % 0-7 Basophil (test code=BASO) 0.4 % 0-2 Neutro Abs (test code=ANEUT) 6.4 K/cumm 1.6-7.4 Lymph Abs (test code=ALYMPH) 1.2 K/cumm 0.5-4.6 [place] Abs (test code=AMONO) 0.7 K/cumm 0.0-1.2 Eos Abs (test code=AEOS) 0.12 K/cumm 0.00-0.74 Baso Abs (test code=ABASO) 0.0 K/cumm 0.00-0.21 XR CHEST 1 [id number] 21:00:53LOCATION: S 17HISTORY: 51-year-old male presents with a history of CHF.COMMENT:A frontal chest radiograph was obtained at 8:28 p.m. and compared to anolder study of January 24, 2007.The lungs are clear. The cardiac silhouette, apple, and mediastinum areunremarkable. The skeleton and soft tissues are unremarkable.A single lead left-sided cardiac pacemaker is present.IMPRESSION:There is no radiographic evidence of acute cardiopulmonary disease.CREATINE KINASE (CK), TOTAL AND [id number] 14:38:00* Test Item Value Reference Range Comments CREATINE KINASE TOTAL (BEAKER) (test cwpc=463) 59987 U/L 29-200 CREATINE KINASE-MB (BEAKER) (test hxca=458) 12.7 ng/mL 0.0-6.6 CREATINE KINASE-MB INDEX (BEAKER) (test tzcd=477) 0.1 % Effective 02/11/2014: CK-MB Reference Range ChangeNew: 0.0-6.6 Previous: 0.0- 4.9CK-MB Reference Range:<6.7 Normal6.7-10.0 Borderline>10.0 Abnormal TROPONIN [id number] 13:34:00* Test Item Value Reference Range Comments TROPONIN I (BEAKER) (test hjcu=595) 0.08 ng/mL 0.00-0.03 Effective 02/11/2014: Reference Range ChangeNew: 0.00-0.03 Previous 0.00-0.15T roponin I (TnI) levels must be interpreted in the context of the presenting symp toms and the clinical findings. Elevated TnI levels indicate myocardial damage, but are not specific for ischemic heart disease. Elevated TnI levels are seen in patients with other cardiac conditions (including myocarditis and congestive he art failure), and slight TnI elevations occur in patients with other conditions, including sepsis, renal failure, acidosis, acute neurological disease, and pers istent tachyarrhythmia.BASIC METABOLIC [id number] 13:28:00* Test Item Value Reference Range Comments SODIUM (BEAKER) (test odpj=602) 142 meq/L 136-145 POTASSIUM (BEAKER) (test krqv=933) 4.0 meq/L 3.5-5.1 CHLORIDE (BEAKER) (test xwoh=720) 102 meq/L 98-107 CO2 (BEAKER) (test wxun=542) 25 meq/L 22-29 BLOOD UREA NITROGEN (BEAKER) (test flkc=601) 30 mg/dL 7-21 CREATININE (BEAKER) (test txit=372) 2.45 mg/dL 0.57-1.25 GLUCOSE RANDOM (BEAKER) (test jlvw=122) 214 mg/dL 70-105 CALCIUM (BEAKER) (test vief=575) 9.6 mg/dL 8.4-10.2 EGFR (BEAKER) (test ekiv=4542) 28 mL/min/1.73 sq m ESTIMATED GFR IS NOT ACCURATE CREATININE CLEARANCE IN PREDICTING GLOMERULAR FILTRATION RATE. ESTIMATED GFR IS NOT APPLICABLE FOR DIALYSIS PATIENTS. CBC W/PLT COUNT & AUTO [id number] 13:07:00* Test Item Value Reference Range Comments WHITE BLOOD CELL COUNT (BEAKER) (test ocyg=251) 11.7 K/ L 3.5-10.5 RED BLOOD CELL COUNT (BEAKER) (test pkri=757) 4.66 M/ L 4.63-6.08 HEMOGLOBIN (BEAKER) (test obsy=112) 14.4 GM/DL 13.7-17.5 HEMATOCRIT (BEAKER) (test bvgn=271) 42.8 % 40.1-51.0 MEAN CORPUSCULAR VOLUME (BEAKER) (test snpv=589) 91.8 fL 79.0-92.2 MEAN CORPUSCULAR HEMOGLOBIN (BEAKER) (test ttus=729) 30.9 pg 25.7-32.2 MEAN CORPUSCULAR HEMOGLOBIN CONC (BEAKER) (test jxuk=551) 33.6 GM/DL 32.3-36.5 RED CELL DISTRIBUTION WIDTH (BEAKER) (test bcdh=648) 14.9 % 11.6-14.4 PLATELET COUNT (BEAKER) (test xhme=221) 199 K/CU MM 150-450 MEAN PLATELET VOLUME (BEAKER) (test qixq=854) 10.0 fL 9.4-12.4 NUCLEATED RED BLOOD CELLS (BEAKER) (test diog=503) 0 /100 WBC 0-0 NEUTROPHILS RELATIVE PERCENT (BEAKER) (test hnnl=504) 81 % LYMPHOCYTES RELATIVE PERCENT (BEAKER) (test bbxf=091) 8 % MONOCYTES RELATIVE PERCENT (BEAKER) (test hfpr=543) 11 % EOSINOPHILS RELATIVE PERCENT (BEAKER) (test cwzb=799) 0 % BASOPHILS RELATIVE PERCENT (BEAKER) (test dlao=936) 0 % NEUTROPHILS ABSOLUTE COUNT (BEAKER) (test ogvi=576) 9.43 K/ L 1.78-5.38 LYMPHOCYTES ABSOLUTE COUNT (BEAKER) (test nkqz=076) 0.90 K/ L 1.32-3.57 MONOCYTES ABSOLUTE COUNT (BEAKER) (test haqb=981) 1.27 K/ L 0.30-0.82 EOSINOPHILS ABSOLUTE COUNT (BEAKER) (test evel=839) 0.01 K/ L 0.04-0.54 BASOPHILS ABSOLUTE COUNT (BEAKER) (test jwrb=101) 0.03 K/ L 0.01-0.08 IMMATURE GRANULOCYTES-RELATIVE PERCENT (BEAKER) (test mfuk=6750) 1 % 0-1 TROPONIN [id number] 22:07:00* Test Item Value Reference Range Comments TROPONIN I (BEAKER) (test pghk=827) 0.02 ng/mL 0.00-0.03 Effective 02/11/2014: Reference Range ChangeNew: 0.00-0.03 Previous 0.00-0.15T roponin I (TnI) levels must be interpreted in the context of the presenting symp toms and the clinical findings. Elevated TnI levels indicate myocardial damage, but are not specific for ischemic heart disease. Elevated TnI levels are seen in patients with other cardiac conditions (including myocarditis and congestive he art failure), and slight TnI elevations occur in patients with other conditions, including sepsis, renal failure, acidosis, acute neurological disease, and pers istent tachyarrhythmia.BASIC METABOLIC [id number] 22:06:00* Test Item Value Reference Range Comments SODIUM (BEAKER) (test xhqf=960) 138 meq/L 136-145 POTASSIUM (BEAKER) (test rmtr=175) 4.0 meq/L 3.5-5.1 CHLORIDE (BEAKER) (test ihep=101) 99 meq/L 98-107 CO2 (BEAKER) (test muuo=195) 25 meq/L 22-29 BLOOD UREA NITROGEN (BEAKER) (test jjdt=963) 17 mg/dL 7-21 CREATININE (BEAKER) (test yuyd=190) 1.60 mg/dL 0.57-1.25 GLUCOSE RANDOM (BEAKER) (test xirv=656) 155 mg/dL 70-105 CALCIUM (BEAKER) (test clea=231) 9.1 mg/dL 8.4-10.2 EGFR (BEAKER) (test ifir=3561) 46 mL/min/1.73 sq m ESTIMATED GFR IS NOT ACCURATE CREATININE CLEARANCE IN PREDICTING GLOMERULAR FILTRATION RATE. ESTIMATED GFR IS NOT APPLICABLE FOR DIALYSIS PATIENTS. CREATINE KINASE (CK), TOTAL AND [id number] 22:06:00* Test Item Value Reference Range Comments CREATINE KINASE TOTAL (BEAKER) (test mjhx=014) 315 U/L 29-200 CREATINE KINASE-MB (BEAKER) (test bsry=877) 1.8 ng/mL 0.0-6.6 CREATINE KINASE-MB INDEX (BEAKER) (test ombw=117) 0.6 % Effective 02/11/2014: CK-MB Reference Range ChangeNew: 0.0-6.6 Previous: 0.0- 4.9CK-MB Reference Range:<6.7 Normal6.7-10.0 Borderline>10.0 Abnormal [id number] 22:06:00* Test Item Value Reference Range Comments MAGNESIUM (BEAKER) (test rlvu=627) 2.1 mg/dL 1.6-2.6 B-TYPE NATRIURETIC FACTOR (BNP)2016-11-05 21:58:00* Test Item Value Reference Range Comments B-TYPE NATRIURETIC PEPTIDE (BEAKER) (test rrov=304) 465 pg/mL 0-100 PT/[id number] 21:46:00* Test Item Value Reference Range Comments PROTIME (BEAKER) (test evca=544) 20.0 seconds 11.7-14.7 INR (BEAKER) (test decb=706) 1.7 <=5.9 PARTIAL THROMBOPLASTIN TIME (BEAKER) (test tljm=547) 41.7 seconds 22.5-36.0 RECOMMENDED COUMADIN/WARFARIN INR THERAPY RANGESSTANDARD DOSE: 2.0 - 3.0 Inclu rianna: PROPHYLAXIS for venous thrombosis, systemic embolization; TREATMENT for danii ous thrombosis and/or pulmonary embolus.HIGH RISK: Target INR is 2.5-3.5 for pat ients with mechanical heart valves.CBC W/PLT COUNT & AUTO [id number] 21:33:00* Test Item Value Reference Range Comments WHITE BLOOD CELL COUNT (BEAKER) (test xqas=143) 10.8 K/ L 3.5-10.5 RED BLOOD CELL COUNT (BEAKER) (test fsol=094) 4.98 M/ L 4.63-6.08 HEMOGLOBIN (BEAKER) (test dtxh=828) 15.4 GM/DL 13.7-17.5 HEMATOCRIT (BEAKER) (test dawp=336) 44.6 % 40.1-51.0 MEAN CORPUSCULAR VOLUME (BEAKER) (test wcil=175) 89.6 fL 79.0-92.2 MEAN CORPUSCULAR HEMOGLOBIN (BEAKER) (test uwkg=383) 30.9 pg 25.7-32.2 MEAN CORPUSCULAR HEMOGLOBIN CONC (BEAKER) (test hann=804) 34.5 GM/DL 32.3-36.5 RED CELL DISTRIBUTION WIDTH (BEAKER) (test zrvo=933) 13.8 % 11.6-14.4 PLATELET COUNT (BEAKER) (test zdmh=249) 192 K/CU MM 150-450 MEAN PLATELET VOLUME (BEAKER) (test dgfb=447) 9.8 fL 9.4-12.4 NUCLEATED RED BLOOD CELLS (BEAKER) (test iodx=654) 0 /100 WBC 0-0 NEUTROPHILS RELATIVE PERCENT (BEAKER) (test sume=134) 80 % LYMPHOCYTES RELATIVE PERCENT (BEAKER) (test dxpd=594) 10 % MONOCYTES RELATIVE PERCENT (BEAKER) (test rany=497) 8 % EOSINOPHILS RELATIVE PERCENT (BEAKER) (test oprn=961) 1 % BASOPHILS RELATIVE PERCENT (BEAKER) (test rqzo=570) 0 % NEUTROPHILS ABSOLUTE COUNT (BEAKER) (test shgm=102) 8.63 K/ L 1.78-5.38 LYMPHOCYTES ABSOLUTE COUNT (BEAKER) (test jgee=376) 1.09 K/ L 1.32-3.57 MONOCYTES ABSOLUTE COUNT (BEAKER) (test cnly=258) 0.82 K/ L 0.30-0.82 EOSINOPHILS ABSOLUTE COUNT (BEAKER) (test mliz=548) 0.14 K/ L 0.04-0.54 BASOPHILS ABSOLUTE COUNT (BEAKER) (test hsjc=328) 0.03 K/ L 0.01-0.08 IMMATURE GRANULOCYTES-RELATIVE PERCENT (BEAKER) (test qzsx=2393) 0 % 0-1 B-TYPE NATRIURETIC FACTOR (BNP)2016-10-10 11:11:00* Test Item Value Reference Range Comments B-TYPE NATRIURETIC PEPTIDE (BEAKER) (test qtba=193) 721 pg/mL 0-100 BASIC METABOLIC [id number] 11:02:00* Test Item Value Reference Range Comments SODIUM (BEAKER) (test ozae=492) 138 meq/L 136-145 POTASSIUM (BEAKER) (test uogp=832) 4.0 meq/L 3.5-5.1 CHLORIDE (BEAKER) (test yfxl=199) 106 meq/L 98-107 CO2 (BEAKER) (test owoc=229) 22 meq/L 22-29 BLOOD UREA NITROGEN (BEAKER) (test turf=819) 12 mg/dL 7-21 CREATININE (BEAKER) (test rosb=345) 1.30 mg/dL 0.57-1.25 GLUCOSE RANDOM (BEAKER) (test pejk=517) 197 mg/dL 70-105 CALCIUM (BEAKER) (test esxm=217) 8.9 mg/dL 8.4-10.2 EGFR (BEAKER) (test jzur=9433) 58 mL/min/1.73 sq m ESTIMATED GFR IS NOT ACCURATE CREATININE CLEARANCE IN PREDICTING GLOMERULAR FILTRATION RATE. ESTIMATED GFR IS NOT APPLICABLE FOR DIALYSIS PATIENTS. CBC W/PLT COUNT & AUTO [id number] 10:50:00* Test Item Value Reference Range Comments WHITE BLOOD CELL COUNT (BEAKER) (test drlf=491) 7.2 K/ L 4.0-10.0 RED BLOOD CELL COUNT (BEAKER) (test qbae=690) 4.61 M/ L 4.20-5.80 HEMOGLOBIN (BEAKER) (test rxiq=330) 14.5 GM/DL 13.0-16.8 HEMATOCRIT (BEAKER) (test utwc=504) 42.3 % 40.0-50.0 MEAN CORPUSCULAR VOLUME (BEAKER) (test fzxf=920) 91.7 fL 82.0-98.0 MEAN CORPUSCULAR HEMOGLOBIN (BEAKER) (test sqnr=170) 31.5 pg 27.0-33.0 MEAN CORPUSCULAR HEMOGLOBIN CONC (BEAKER) (test mwuo=805) 34.4 GM/DL 32.0-36.0 RED CELL DISTRIBUTION WIDTH (BEAKER) (test lmfh=715) 13.2 % 10.3-14.2 PLATELET COUNT (BEAKER) (test zwhr=057) 290 K/CU MM 150-430 MEAN PLATELET VOLUME (BEAKER) (test yrbh=026) 6.9 fL 6.5-10.5 NUCLEATED RED BLOOD CELLS (BEAKER) (test wnsa=511) 0 /100 WBC 0-0 NEUTROPHILS RELATIVE PERCENT (BEAKER) (test mexd=206) 69 % LYMPHOCYTES RELATIVE PERCENT (BEAKER) (test gthw=014) 18 % MONOCYTES RELATIVE PERCENT (BEAKER) (test jzsx=383) 11 % EOSINOPHILS RELATIVE PERCENT (BEAKER) (test bhhf=812) 2 % BASOPHILS RELATIVE PERCENT (BEAKER) (test pgje=522) 0 % NEUTROPHILS ABSOLUTE COUNT (BEAKER) (test msyu=596) 4.94 K/ L 1.80-8.00 LYMPHOCYTES ABSOLUTE COUNT (BEAKER) (test utap=459) 1.30 K/ L 1.48-4.50 MONOCYTES ABSOLUTE COUNT (BEAKER) (test itaa=807) 0.77 K/ L 0.00-1.30 EOSINOPHILS ABSOLUTE COUNT (BEAKER) (test bmsn=914) 0.15 K/ L 0.00-0.50 BASOPHILS ABSOLUTE COUNT (BEAKER) (test jiiz=672) 0.01 K/ L 0.00-0.20 0.00POCT-GLUCOSE [id number] 16:46:00* Test Item Value Reference Range Comments POC-GLUCOSE METER (BEAKER) (test qexy=8339) 229 mg/dL 70-110 TESTED AT [address] [address] POCT-GLUCOSE [id number] 12:46:00* Test Item Value Reference Range Comments POC-GLUCOSE METER (BEAKER) (test mihb=7107) 205 mg/dL 70-110 TESTED AT [address] [address] POCT-GLUCOSE [id number] 09:03:00* Test Item Value Reference Range Comments POC-GLUCOSE METER (BEAKER) (test tynm=2468) 235 mg/dL 70-110 TESTED AT [address] [address] BASIC METABOLIC [id number] 06:23:00* Test Item Value Reference Range Comments SODIUM (BEAKER) (test efzv=033) 139 meq/L 136-145 POTASSIUM (BEAKER) (test aoao=189) 4.1 meq/L 3.5-5.1 CHLORIDE (BEAKER) (test fwin=955) 104 meq/L 98-107 CO2 (BEAKER) (test vdfk=258) 27 meq/L 22-29 BLOOD UREA NITROGEN (BEAKER) (test uusf=386) 19 mg/dL 7-21 CREATININE (BEAKER) (test gebk=326) 1.36 mg/dL 0.57-1.25 GLUCOSE RANDOM (BEAKER) (test quzn=978) 182 mg/dL 70-105 CALCIUM (BEAKER) (test ybia=443) 8.5 mg/dL 8.4-10.2 EGFR (BEAKER) (test oima=1553) 55 mL/min/1.73 sq m ESTIMATED GFR IS NOT ACCURATE CREATININE CLEARANCE IN PREDICTING GLOMERULAR FILTRATION RATE. ESTIMATED GFR IS NOT APPLICABLE FOR DIALYSIS PATIENTS. POCT-GLUCOSE [id number] 22:17:00* Test Item Value Reference Range Comments POC-GLUCOSE METER (BEAKER) (test wkpt=3712) 184 mg/dL 70-110 TESTED AT [address] [address] POCT-GLUCOSE [id number] 17:44:00* Test Item Value Reference Range Comments POC-GLUCOSE METER (BEAKER) (test xtlb=0197) 160 mg/dL 70-110 TESTED AT [address] [address] POCT-GLUCOSE [id number] 11:38:00* Test Item Value Reference Range Comments POC-GLUCOSE METER (BEAKER) (test kyjw=0040) 228 mg/dL 70-110 TESTED AT [address] [address] POCT-GLUCOSE [id number] 08:22:00* Test Item Value Reference Range Comments POC-GLUCOSE METER (BEAKER) (test ksjg=2437) 108 mg/dL 70-110 TESTED AT [address] [address] BASIC METABOLIC [id number] 05:35:00* Test Item Value Reference Range Comments SODIUM (BEAKER) (test atqz=376) 142 meq/L 136-145 POTASSIUM (BEAKER) (test mmcx=462) 3.9 meq/L 3.5-5.1 CHLORIDE (BEAKER) (test iajy=425) 110 meq/L 98-107 CO2 (BEAKER) (test iqzw=928) 25 meq/L 22-29 BLOOD UREA NITROGEN (BEAKER) (test shxi=352) 15 mg/dL 7-21 CREATININE (BEAKER) (test gvlo=256) 1.15 mg/dL 0.57-1.25 GLUCOSE RANDOM (BEAKER) (test umkv=501) 101 mg/dL 70-105 CALCIUM (BEAKER) (test tbor=990) 8.0 mg/dL 8.4-10.2 EGFR (BEAKER) (test gaue=8111) 67 mL/min/1.73 sq m ESTIMATED GFR IS NOT ACCURATE CREATININE CLEARANCE IN PREDICTING GLOMERULAR FILTRATION RATE. ESTIMATED GFR IS NOT APPLICABLE FOR DIALYSIS PATIENTS. POCT-GLUCOSE [id number] 22:01:00* Test Item Value Reference Range Comments POC-GLUCOSE METER (BEAKER) (test ypwn=9621) 267 mg/dL 70-110 TESTED AT [place] [id number] [facility] [address] POCT-GLUCOSE [id number] 17:12:00* Test Item Value Reference Range Comments POC-GLUCOSE METER (BEAKER) (test untt=2664) 321 mg/dL 70-110 TESTED AT [address] [address] POCT-GLUCOSE [id number] 11:28:00* Test Item Value Reference Range Comments POC-GLUCOSE METER (BEAKER) (test agsk=8575) 291 mg/dL 70-110 TESTED AT [address] [address] POCT-GLUCOSE [id number] 09:55:00* Test Item Value Reference Range Comments POC-GLUCOSE METER (BEAKER) (test agur=2679) 130 mg/dL 70-110 TESTED AT [address] [address] BASIC METABOLIC [id number] 07:00:00* Test Item Value Reference Range Comments SODIUM (BEAKER) (test bqdk=656) 141 meq/L 136-145 POTASSIUM (BEAKER) (test xkil=543) 4.1 meq/L 3.5-5.1 CHLORIDE (BEAKER) (test lyca=564) 109 meq/L 98-107 CO2 (BEAKER) (test srph=499) 25 meq/L 22-29 BLOOD UREA NITROGEN (BEAKER) (test pett=150) 22 mg/dL 7-21 CREATININE (BEAKER) (test zrgq=583) 1.43 mg/dL 0.57-1.25 GLUCOSE RANDOM (BEAKER) (test qpqz=248) 156 mg/dL 70-105 CALCIUM (BEAKER) (test dydn=218) 7.9 mg/dL 8.4-10.2 EGFR (BEAKER) (test telz=1333) 52 mL/min/1.73 sq m ESTIMATED GFR IS NOT ACCURATE CREATININE CLEARANCE IN PREDICTING GLOMERULAR FILTRATION RATE. ESTIMATED GFR IS NOT APPLICABLE FOR DIALYSIS PATIENTS. POCT-GLUCOSE [id number] 21:48:00* Test Item Value Reference Range Comments POC-GLUCOSE METER (BEAKER) (test cxol=3428) 184 mg/dL 70-110 TESTED AT [address] [address] POCT-GLUCOSE [id number] 17:22:00* Test Item Value Reference Range Comments POC-GLUCOSE METER (BEAKER) (test omjp=6275) 214 mg/dL 70-110 TESTED AT [address] [address] [id number] 14:17:00* Test Item Value Reference Range Comments MAGNESIUM (BEAKER) (test cadg=456) 2.0 mg/dL 1.6-2.6 Specimen moderately hemolyzed [id number] 14:17:00* Test Item Value Reference Range Comments POTASSIUM (BEAKER) (test kkvs=365) 4.1 meq/L 3.5-5.1 Specimen moderately hemolyzed POCT-GLUCOSE [id number] 11:54:00* Test Item Value Reference Range Comments POC-GLUCOSE METER (BEAKER) (test wwgj=7859) 179 mg/dL 70-110 TESTED AT [address] [address] POCT-GLUCOSE [id number] 08:17:00* Test Item Value Reference Range Comments POC-GLUCOSE METER (BEAKER) (test kilc=7450) 232 mg/dL 70-110 TESTED AT [address] [address] POCT-GLUCOSE [id number] 07:09:00* Test Item Value Reference Range Comments POC-GLUCOSE METER (BEAKER) (test rurd=4925) 227 mg/dL 70-110 TESTED AT [address] [address] BASIC METABOLIC [id number] 06:19:00* Test Item Value Reference Range Comments SODIUM (BEAKER) (test ibkb=127) 137 meq/L 136-145 POTASSIUM (BEAKER) (test iqrb=454) 3.8 meq/L 3.5-5.1 CHLORIDE (BEAKER) (test eeqv=884) 102 meq/L 98-107 CO2 (BEAKER) (test ekhm=420) 24 meq/L 22-29 BLOOD UREA NITROGEN (BEAKER) (test fmzf=622) 30 mg/dL 7-21 CREATININE (BEAKER) (test hvuf=277) 1.58 mg/dL 0.57-1.25 GLUCOSE RANDOM (BEAKER) (test rvjw=853) 277 mg/dL 70-105 CALCIUM (BEAKER) (test hyuw=704) 8.5 mg/dL 8.4-10.2 EGFR (BEAKER) (test sank=2156) 46 mL/min/1.73 sq m ESTIMATED GFR IS NOT ACCURATE CREATININE CLEARANCE IN PREDICTING GLOMERULAR FILTRATION RATE. ESTIMATED GFR IS NOT APPLICABLE FOR DIALYSIS PATIENTS. POCT-GLUCOSE [id number] 23:58:00* Test Item Value Reference Range Comments POC-GLUCOSE METER (BEAKER) (test pbmf=6411) 244 mg/dL 70-110 TESTED AT [address] [address] POCT-GLUCOSE [id number] 20:21:00* Test Item Value Reference Range Comments POC-GLUCOSE METER (BEAKER) (test hgnt=2733) 163 mg/dL 70-110 TESTED AT [address] [address] POCT-GLUCOSE [id number] 17:04:00* Test Item Value Reference Range Comments POC-GLUCOSE METER (BEAKER) (test isjx=9180) 229 mg/dL 70-110 TESTED AT [address] [address] HEMOGLOBIN [id number] 15:52:00* Test Item Value Reference Range Comments HEMOGLOBIN A1C (BEAKER) (test hjcv=193) 10.7 % 4.3-6.1 POCT-GLUCOSE [id number] 11:26:00* Test Item Value Reference Range Comments POC-GLUCOSE METER (BEAKER) (test kfpe=2734) 223 mg/dL 70-110 TESTED AT [address] [address] RAPID DRUG SCREEN, [id number] 10:32:00* Test Item Value Reference Range Comments BARBITURATE URINE (BEAKER) (test xsay=991) Negative Negative BENZODIAZEPINE SCREEN URINE (BEAKER) (test kbnu=790) Negative Negative COCAINE (METAB.) SCREEN (BEAKER) (test itko=6051) Positive Negative METHADONE SCREEN (BEAKER) (test rbnw=1045) Negative Negative OPIATE SCREEN URINE (BEAKER) (test jtdv=682) Negative Negative CANNABINOID SCREEN URINE (BEAKER) (test qnde=495) Negative Negative AMPH/METHAMPH SCREEN (BEAKER) (test xhme=4316) Negative Negative PHENCYCLIDINE SCREEN URINE (BEAKER) (test gyan=726) Negative Negative OXYCODONE SCREEN URINE (BEAKER) (test tcgc=4663) Negative Negative DRUG CUTOFF CONC.Cocaine 300 ng/mL Cannabinoid 50 ng/mL Benzodiazepine 200 ng/mLBarbiturate 200 ng/mLPh encyclidine 25 ng/mLOpiate 300 ng/mLMethadone 300 ng/mLAmphetamine/ 1000 ng/mL MethamphetamineOxycodone 300 ng/mLThis assay provides an unconfirmed qualitative test result for the cli nical management of patients in emergency situations. Chain of custody not maint ained. Some futj-vyb-rccktjl medications, as well as adulterants, may cause inac curate results. Clinical correlation should be applied. A more comprehensive chandra g screen or confirmation of a detected drug may be performed upon request.CBC W/PLT COUNT & AUTO [id number] 05:43:00* Test Item Value Reference Range Comments WHITE BLOOD CELL COUNT (BEAKER) (test pryi=306) 13.7 K/ L 4.0-10.0 RED BLOOD CELL COUNT (BEAKER) (test rgem=044) 4.94 M/ L 4.20-5.80 HEMOGLOBIN (BEAKER) (test hxue=369) 15.2 GM/DL 13.0-16.8 HEMATOCRIT (BEAKER) (test nbaa=960) 45.5 % 40.0-50.0 MEAN CORPUSCULAR VOLUME (BEAKER) (test yjfa=436) 92.2 fL 82.0-98.0 MEAN CORPUSCULAR HEMOGLOBIN (BEAKER) (test iknw=207) 30.9 pg 27.0-33.0 MEAN CORPUSCULAR HEMOGLOBIN CONC (BEAKER) (test moyd=297) 33.5 GM/DL 32.0-36.0 RED CELL DISTRIBUTION WIDTH (BEAKER) (test zpxm=596) 13.5 % 10.3-14.2 PLATELET COUNT (BEAKER) (test istt=393) 194 K/CU MM 150-430 MEAN PLATELET VOLUME (BEAKER) (test uagq=035) 7.7 fL 6.5-10.5 NUCLEATED RED BLOOD CELLS (BEAKER) (test clib=209) 0 /100 WBC 0-0 NEUTROPHILS RELATIVE PERCENT (BEAKER) (test kqch=585) 78 % LYMPHOCYTES RELATIVE PERCENT (BEAKER) (test rert=107) 11 % MONOCYTES RELATIVE PERCENT (BEAKER) (test vrva=472) 10 % EOSINOPHILS RELATIVE PERCENT (BEAKER) (test tzqg=008) 0 % BASOPHILS RELATIVE PERCENT (BEAKER) (test nrap=607) 0 % NEUTROPHILS ABSOLUTE COUNT (BEAKER) (test ggoq=237) 10.70 K/ L 1.80-8.00 LYMPHOCYTES ABSOLUTE COUNT (BEAKER) (test iavv=178) 1.55 K/ L 1.48-4.50 MONOCYTES ABSOLUTE COUNT (BEAKER) (test ztrg=452) 1.42 K/ L 0.00-1.30 EOSINOPHILS ABSOLUTE COUNT (BEAKER) (test meik=382) 0.01 K/ L 0.00-0.50 BASOPHILS ABSOLUTE COUNT (BEAKER) (test ghwp=999) 0.01 K/ L 0.00-0.20 0.00BASIC METABOLIC [id number] 05:42:00* Test Item Value Reference Range Comments SODIUM (BEAKER) (test brnc=063) 141 meq/L 136-145 POTASSIUM (BEAKER) (test enfk=231) 4.0 meq/L 3.5-5.1 CHLORIDE (BEAKER) (test huwy=619) 101 meq/L 98-107 CO2 (BEAKER) (test wnom=537) 26 meq/L 22-29 BLOOD UREA NITROGEN (BEAKER) (test uxwu=083) 32 mg/dL 7-21 CREATININE (BEAKER) (test yegt=797) 2.20 mg/dL 0.57-1.25 GLUCOSE RANDOM (BEAKER) (test wcuz=773) 288 mg/dL 70-105 CALCIUM (BEAKER) (test peiu=647) 9.4 mg/dL 8.4-10.2 EGFR (BEAKER) (test yiyq=5533) 32 mL/min/1.73 sq m ESTIMATED GFR IS NOT ACCURATE CREATININE CLEARANCE IN PREDICTING GLOMERULAR FILTRATION RATE. ESTIMATED GFR IS NOT APPLICABLE FOR DIALYSIS PATIENTS. B-TYPE NATRIURETIC FACTOR (BNP)2016-09-16 05:38:00* Test Item Value Reference Range Comments B-TYPE NATRIURETIC PEPTIDE (BEAKER) (test plmh=421) 797 pg/mL 0-100 CREATINE KINASE (CK), TOTAL AND [id number] 05:38:00* Test Item Value Reference Range Comments CREATINE KINASE TOTAL (BEAKER) (test qcui=492) 2623 U/L 29-200 CREATINE KINASE-MB (BEAKER) (test stle=598) 5.4 ng/mL 0.0-6.6 CREATINE KINASE-MB INDEX (BEAKER) (test lqzw=824) 0.2 % Effective 02/11/2014: CK-MB Reference Range ChangeNew: 0.0-6.6 Previous: 0.0- 4.9CK-MB Reference Range:<6.7 Normal6.7-10.0 Borderline>10.0 Abnormal TROPONIN [id number] 05:38:00* Test Item Value Reference Range Comments TROPONIN I (BEAKER) (test lduq=327) 0.06 ng/mL 0.00-0.03 Effective 02/11/2014: Reference Range ChangeNew: 0.00-0.03 Previous 0.00-0.15T roponin I (TnI) levels must be interpreted in the context of the presenting symp toms and the clinical findings. Elevated TnI levels indicate myocardial damage, but are not specific for ischemic heart disease. Elevated TnI levels are seen in patients with other cardiac conditions (including myocarditis and congestive he art failure), and slight TnI elevations occur in patients with other conditions, including sepsis, renal failure, acidosis, acute neurological disease, and pers istent tachyarrhythmia.PT/[id number] 05:36:00* Test Item Value Reference Range Comments PROTIME (BEAKER) (test rqzg=779) 16.6 seconds 11.7-14.7 INR (BEAKER) (test lcwj=272) 1.4 <=5.9 PARTIAL THROMBOPLASTIN TIME (BEAKER) (test rngq=425) 31.9 seconds 22.5-36.0 RECOMMENDED COUMADIN/WARFARIN INR THERAPY RANGESSTANDARD DOSE: 2.0 - 3.0 Inclu rianna: PROPHYLAXIS for venous thrombosis, systemic embolization; TREATMENT for danii ous thrombosis and/or pulmonary embolus.HIGH RISK: Target INR is 2.5-3.5 for pat ients with mechanical heart valves.B-TYPE NATRIURETIC FACTOR (BNP)2016-09-05 10:59:00* Test Item Value Reference Range Comments B-TYPE NATRIURETIC PEPTIDE (BEAKER) (test xkbp=694) 266 pg/mL 0-100 CBC W/PLT COUNT & AUTO [id number] 10:51:00* Test Item Value Reference Range Comments WHITE BLOOD CELL COUNT (BEAKER) (test gwsr=450) 7.5 K/ L 4.0-10.0 RED BLOOD CELL COUNT (BEAKER) (test pppe=509) 5.55 M/ L 4.20-5.80 HEMOGLOBIN (BEAKER) (test vqda=904) 16.9 GM/DL 13.0-16.8 HEMATOCRIT (BEAKER) (test kqla=846) 50.3 % 40.0-50.0 MEAN CORPUSCULAR VOLUME (BEAKER) (test sthv=132) 90.7 fL 82.0-98.0 MEAN CORPUSCULAR HEMOGLOBIN (BEAKER) (test mhtx=013) 30.5 pg 27.0-33.0 MEAN CORPUSCULAR HEMOGLOBIN CONC (BEAKER) (test rcvf=548) 33.7 GM/DL 32.0-36.0 RED CELL DISTRIBUTION WIDTH (BEAKER) (test htem=188) 14.1 % 10.3-14.2 PLATELET COUNT (BEAKER) (test jerl=396) 165 K/CU MM 150-430 MEAN PLATELET VOLUME (BEAKER) (test ffto=193) 7.5 fL 6.5-10.5 NUCLEATED RED BLOOD CELLS (BEAKER) (test ofqa=054) 0 /100 WBC 0-0 NEUTROPHILS RELATIVE PERCENT (BEAKER) (test yagh=418) 64 % LYMPHOCYTES RELATIVE PERCENT (BEAKER) (test hvai=493) 25 % MONOCYTES RELATIVE PERCENT (BEAKER) (test gaon=707) 9 % EOSINOPHILS RELATIVE PERCENT (BEAKER) (test yloe=601) 2 % BASOPHILS RELATIVE PERCENT (BEAKER) (test jnnv=194) 1 % NEUTROPHILS ABSOLUTE COUNT (BEAKER) (test vzjd=455) 4.79 K/ L 1.80-8.00 LYMPHOCYTES ABSOLUTE COUNT (BEAKER) (test tsvz=403) 1.86 K/ L 1.48-4.50 MONOCYTES ABSOLUTE COUNT (BEAKER) (test vrqs=687) 0.68 K/ L 0.00-1.30 EOSINOPHILS ABSOLUTE COUNT (BEAKER) (test igwp=763) 0.15 K/ L 0.00-0.50 BASOPHILS ABSOLUTE COUNT (BEAKER) (test wsiz=147) 0.05 K/ L 0.00-0.20 0.00BASIC METABOLIC [id number] 10:49:00* Test Item Value Reference Range Comments SODIUM (BEAKER) (test uzym=125) 137 meq/L 136-145 POTASSIUM (BEAKER) (test ujgs=292) 3.8 meq/L 3.5-5.1 Specimen slightly hemolyzed CHLORIDE (BEAKER) (test oomp=125) 100 meq/L 98-107 CO2 (BEAKER) (test ygxi=187) 26 meq/L 22-29 BLOOD UREA NITROGEN (BEAKER) (test rnrh=227) 22 mg/dL 7-21 CREATININE (BEAKER) (test npqf=109) 1.37 mg/dL 0.57-1.25 Specimen slightly hemolyzed GLUCOSE RANDOM (BEAKER) (test damj=370) 173 mg/dL 70-105 CALCIUM (BEAKER) (test ucqa=942) 9.0 mg/dL 8.4-10.2 EGFR (BEAKER) (test hkyn=5413) 55 mL/min/1.73 sq m ESTIMATED GFR IS NOT ACCURATE CREATININE CLEARANCE IN PREDICTING GLOMERULAR FILTRATION RATE. ESTIMATED GFR IS NOT APPLICABLE FOR DIALYSIS PATIENTS. BASIC METABOLIC [id number] 10:41:00* Test Item Value Reference Range Comments SODIUM (BEAKER) (test gfop=848) 137 meq/L 136-145 POTASSIUM (BEAKER) (test vdvt=589) 4.1 meq/L 3.5-5.1 Specimen slightly hemolyzed CHLORIDE (BEAKER) (test unzs=001) 94 meq/L 98-107 CO2 (BEAKER) (test ewdi=051) 32 meq/L 22-29 BLOOD UREA NITROGEN (BEAKER) (test epym=385) 19 mg/dL 7-21 CREATININE (BEAKER) (test zqoj=355) 1.77 mg/dL 0.57-1.25 Specimen slightly hemolyzed GLUCOSE RANDOM (BEAKER) (test mcpx=548) 444 mg/dL 70-105 CALCIUM (BEAKER) (test zzbq=518) 9.3 mg/dL 8.4-10.2 EGFR (BEAKER) (test zvgv=6515) 41 mL/min/1.73 sq m ESTIMATED GFR IS NOT ACCURATE CREATININE CLEARANCE IN PREDICTING GLOMERULAR FILTRATION RATE. ESTIMATED GFR IS NOT APPLICABLE FOR DIALYSIS PATIENTS. [id number] 10:30:00* Test Item Value Reference Range Comments MAGNESIUM (BEAKER) (test qlkb=487) 2.3 mg/dL 1.6-2.6 Specimen slightly hemolyzed HEPATIC FUNCTION [id number] 10:30:00* Test Item Value Reference Range Comments TOTAL PROTEIN (BEAKER) (test hrbe=960) 8.2 gm/dL 6.0-8.3 Specimen slightly hemolyzed ALBUMIN (BEAKER) (test qvbl=5365) 4.5 g/dL 3.5-5.0 Specimen slightly hemolyzed BILIRUBIN TOTAL (BEAKER) (test ldma=688) 1.0 mg/dL 0.2-1.2 Specimen slightly hemolyzed BILIRUBIN DIRECT (BEAKER) (test zhge=335) 0.3 mg/dL 0.1-0.5 Specimen slightly hemolyzed ALKALINE PHOSPHATASE (BEAKER) (test hylt=876) 138 U/L 40-150 AST (SGOT) (BEAKER) (test vuwb=820) 20 U/L 5-34 Specimen slightly hemolyzed ALT (SGPT) (BEAKER) (test yavm=159) 22 U/L 6-55 Specimen slightly hemolyzed B-TYPE NATRIURETIC FACTOR (BNP)2016-08-24 10:25:00* Test Item Value Reference Range Comments B-TYPE NATRIURETIC PEPTIDE (BEAKER) (test mupf=656) 238 pg/mL 0-100 CBC W/PLT COUNT & AUTO [id number] 10:01:00* Test Item Value Reference Range Comments WHITE BLOOD CELL COUNT (BEAKER) (test ugbr=147) 8.7 K/ L 4.0-10.0 RED BLOOD CELL COUNT (BEAKER) (test ibsl=024) 5.89 M/ L 4.20-5.80 HEMOGLOBIN (BEAKER) (test sgtz=479) 18.2 GM/DL 13.0-16.8 HEMATOCRIT (BEAKER) (test vkxo=897) 54.0 % 40.0-50.0 MEAN CORPUSCULAR VOLUME (BEAKER) (test lrhu=184) 91.6 fL 82.0-98.0 MEAN CORPUSCULAR HEMOGLOBIN (BEAKER) (test atga=521) 30.9 pg 27.0-33.0 MEAN CORPUSCULAR HEMOGLOBIN CONC (BEAKER) (test strk=396) 33.7 GM/DL 32.0-36.0 RED CELL DISTRIBUTION WIDTH (BEAKER) (test oktr=970) 14.4 % 10.3-14.2 PLATELET COUNT (BEAKER) (test ezpa=411) 168 K/CU MM 150-430 MEAN PLATELET VOLUME (BEAKER) (test yhmo=220) 7.9 fL 6.5-10.5 NUCLEATED RED BLOOD CELLS (BEAKER) (test buzf=714) 0 /100 WBC 0-0 NEUTROPHILS RELATIVE PERCENT (BEAKER) (test qgxd=307) 71 % LYMPHOCYTES RELATIVE PERCENT (BEAKER) (test nbsp=089) 18 % MONOCYTES RELATIVE PERCENT (BEAKER) (test jewn=363) 8 % EOSINOPHILS RELATIVE PERCENT (BEAKER) (test istw=540) 2 % BASOPHILS RELATIVE PERCENT (BEAKER) (test hpkp=017) 0 % NEUTROPHILS ABSOLUTE COUNT (BEAKER) (test lzeh=964) 6.12 K/ L 1.80-8.00 LYMPHOCYTES ABSOLUTE COUNT (BEAKER) (test uwmx=223) 1.59 K/ L 1.48-4.50 MONOCYTES ABSOLUTE COUNT (BEAKER) (test ybzm=157) 0.73 K/ L 0.00-1.30 EOSINOPHILS ABSOLUTE COUNT (BEAKER) (test dfev=512) 0.18 K/ L 0.00-0.50 BASOPHILS ABSOLUTE COUNT (BEAKER) (test gpwb=814) 0.04 K/ L 0.00-0.20 0.00B-TYPE NATRIURETIC FACTOR (BNP)2016-08-15 11:34:00* Test Item Value Reference Range Comments B-TYPE NATRIURETIC PEPTIDE (BEAKER) (test iyca=407) 714 pg/mL 0-100 BASIC METABOLIC [id number] 11:18:00* Test Item Value Reference Range Comments SODIUM (BEAKER) (test gohj=808) 138 meq/L 136-145 POTASSIUM (BEAKER) (test pzbb=803) 4.3 meq/L 3.5-5.1 CHLORIDE (BEAKER) (test uqza=922) 105 meq/L 98-107 CO2 (BEAKER) (test mjrs=930) 25 meq/L 22-29 BLOOD UREA NITROGEN (BEAKER) (test yrog=673) 28 mg/dL 7-21 CREATININE (BEAKER) (test isab=797) 1.50 mg/dL 0.57-1.25 GLUCOSE RANDOM (BEAKER) (test lkux=808) 255 mg/dL 70-105 CALCIUM (BEAKER) (test jbsm=056) 9.0 mg/dL 8.4-10.2 EGFR (BEAKER) (test xadn=0936) 49 mL/min/1.73 sq m ESTIMATED GFR IS NOT ACCURATE CREATININE CLEARANCE IN PREDICTING GLOMERULAR FILTRATION RATE. ESTIMATED GFR IS NOT APPLICABLE FOR DIALYSIS PATIENTS. CBC W/PLT COUNT & AUTO [id number] 11:07:00* Test Item Value Reference Range Comments WHITE BLOOD CELL COUNT (BEAKER) (test twge=062) 7.0 K/ L 4.0-10.0 RED BLOOD CELL COUNT (BEAKER) (test vzts=584) 5.02 M/ L 4.20-5.80 HEMOGLOBIN (BEAKER) (test fgsh=947) 15.4 GM/DL 13.0-16.8 HEMATOCRIT (BEAKER) (test dssj=273) 46.0 % 40.0-50.0 MEAN CORPUSCULAR VOLUME (BEAKER) (test hdpx=822) 91.6 fL 82.0-98.0 MEAN CORPUSCULAR HEMOGLOBIN (BEAKER) (test mrax=554) 30.7 pg 27.0-33.0 MEAN CORPUSCULAR HEMOGLOBIN CONC (BEAKER) (test vqcn=748) 33.5 GM/DL 32.0-36.0 RED CELL DISTRIBUTION WIDTH (BEAKER) (test gxni=608) 14.0 % 10.3-14.2 PLATELET COUNT (BEAKER) (test ymlh=452) 185 K/CU MM 150-430 MEAN PLATELET VOLUME (BEAKER) (test varq=719) 7.6 fL 6.5-10.5 NUCLEATED RED BLOOD CELLS (BEAKER) (test btva=303) 0 /100 WBC 0-0 NEUTROPHILS RELATIVE PERCENT (BEAKER) (test pixv=338) 75 % LYMPHOCYTES RELATIVE PERCENT (BEAKER) (test wkih=981) 15 % MONOCYTES RELATIVE PERCENT (BEAKER) (test mkcp=473) 7 % EOSINOPHILS RELATIVE PERCENT (BEAKER) (test gsav=841) 2 % BASOPHILS RELATIVE PERCENT (BEAKER) (test mvpi=553) 0 % NEUTROPHILS ABSOLUTE COUNT (BEAKER) (test pfkb=425) 5.25 K/ L 1.80-8.00 LYMPHOCYTES ABSOLUTE COUNT (BEAKER) (test atnb=718) 1.08 K/ L 1.48-4.50 MONOCYTES ABSOLUTE COUNT (BEAKER) (test puly=300) 0.52 K/ L 0.00-1.30 EOSINOPHILS ABSOLUTE COUNT (BEAKER) (test xumt=407) 0.17 K/ L 0.00-0.50 BASOPHILS ABSOLUTE COUNT (BEAKER) (test nyvr=193) 0.03 K/ L 0.00-0.20 0.00POCT-GLUCOSE [id number] 11:42:00* Test Item Value Reference Range Comments POC-GLUCOSE METER (BEAKER) (test ngpo=7416) 262 mg/dL 70-110 TESTED AT [address] [address] POCT-GLUCOSE [id number] 07:11:00* Test Item Value Reference Range Comments POC-GLUCOSE METER (BEAKER) (test wrqb=8301) 159 mg/dL 70-110 TESTED AT [address] [address] BASIC METABOLIC [id number] 05:47:00* Test Item Value Reference Range Comments SODIUM (BEAKER) (test uldz=270) 144 meq/L 136-145 POTASSIUM (BEAKER) (test itto=271) 3.8 meq/L 3.5-5.1 CHLORIDE (BEAKER) (test fubo=453) 107 meq/L 98-107 CO2 (BEAKER) (test qwxh=159) 29 meq/L 22-29 BLOOD UREA NITROGEN (BEAKER) (test lzqd=763) 16 mg/dL 7-21 CREATININE (BEAKER) (test ldoy=406) 1.25 mg/dL 0.57-1.25 GLUCOSE RANDOM (BEAKER) (test ahiv=588) 164 mg/dL 70-105 CALCIUM (BEAKER) (test ewfk=782) 8.4 mg/dL 8.4-10.2 EGFR (BEAKER) (test urhg=9262) 61 mL/min/1.73 sq m ESTIMATED GFR IS NOT ACCURATE CREATININE CLEARANCE IN PREDICTING GLOMERULAR FILTRATION RATE. ESTIMATED GFR IS NOT APPLICABLE FOR DIALYSIS PATIENTS. POCT-GLUCOSE [id number] 21:54:00* Test Item Value Reference Range Comments POC-GLUCOSE METER (BEAKER) (test bxue=7102) 237 mg/dL 70-110 TESTED AT [address] [address] POCT-GLUCOSE [id number] 17:28:00* Test Item Value Reference Range Comments POC-GLUCOSE METER (BEAKER) (test rlpj=4051) 280 mg/dL 70-110 TESTED AT [address] [address] POCT-GLUCOSE [id number] 11:40:00* Test Item Value Reference Range Comments POC-GLUCOSE METER (BEAKER) (test iafy=2676) 119 mg/dL 70-110 TESTED AT [address] [address] POCT-GLUCOSE [id number] 08:00:00* Test Item Value Reference Range Comments POC-GLUCOSE METER (BEAKER) (test vwza=7371) 313 mg/dL 70-110 Notified BRENDON JETT/TESTED AT [address] [address] BASIC METABOLIC [id number] 05:47:00* Test Item Value Reference Range Comments SODIUM (BEAKER) (test ipjs=170) 142 meq/L 136-145 POTASSIUM (BEAKER) (test wcth=866) 3.4 meq/L 3.5-5.1 CHLORIDE (BEAKER) (test adlu=737) 103 meq/L 98-107 CO2 (BEAKER) (test dhij=068) 28 meq/L 22-29 BLOOD UREA NITROGEN (BEAKER) (test nnsz=123) 19 mg/dL 7-21 CREATININE (BEAKER) (test ilnb=741) 1.39 mg/dL 0.57-1.25 GLUCOSE RANDOM (BEAKER) (test vsxk=049) 157 mg/dL 70-105 CALCIUM (BEAKER) (test zyas=959) 8.7 mg/dL 8.4-10.2 EGFR (BEAKER) (test snyq=9762) 54 mL/min/1.73 sq m ESTIMATED GFR IS NOT ACCURATE CREATININE CLEARANCE IN PREDICTING GLOMERULAR FILTRATION RATE. ESTIMATED GFR IS NOT APPLICABLE FOR DIALYSIS PATIENTS. POCT-GLUCOSE [id number] 21:46:00* Test Item Value Reference Range Comments POC-GLUCOSE METER (BEAKER) (test dlhp=6741) 131 mg/dL 70-110 TESTED AT [place] [id number] POCT-GLUCOSE [id number] 17:17:00* Test Item Value Reference Range Comments POC-GLUCOSE METER (BEAKER) (test yfvb=8671) 151 mg/dL 70-110 TESTED AT [place] [id number] POCT-GLUCOSE [id number] 11:50:00* Test Item Value Reference Range Comments POC-GLUCOSE METER (BEAKER) (test xmjp=0892) 302 mg/dL 70-110 Notified BRENDON JETT/TESTED AT [place] [id number] POCT-GLUCOSE [id number] 07:54:00* Test Item Value Reference Range Comments POC-GLUCOSE METER (BEAKER) (test dafp=0064) 292 mg/dL 70-110 TESTED AT [place] [address] BASIC METABOLIC [id number] 06:43:00* Test Item Value Reference Range Comments SODIUM (BEAKER) (test cske=625) 138 meq/L 136-145 POTASSIUM (BEAKER) (test epbr=515) 3.8 meq/L 3.5-5.1 CHLORIDE (BEAKER) (test fdoj=458) 102 meq/L 98-107 CO2 (BEAKER) (test bhex=080) 23 meq/L 22-29 BLOOD UREA NITROGEN (BEAKER) (test eigd=819) 29 mg/dL 7-21 CREATININE (BEAKER) (test iszw=136) 1.49 mg/dL 0.57-1.25 GLUCOSE RANDOM (BEAKER) (test bnvf=441) 322 mg/dL 70-105 CALCIUM (BEAKER) (test pvar=574) 8.6 mg/dL 8.4-10.2 EGFR (BEAKER) (test otte=8020) 50 mL/min/1.73 sq m ESTIMATED GFR IS NOT ACCURATE CREATININE CLEARANCE IN PREDICTING GLOMERULAR FILTRATION RATE. ESTIMATED GFR IS NOT APPLICABLE FOR DIALYSIS PATIENTS. POCT-GLUCOSE [id number] 20:29:00* Test Item Value Reference Range Comments POC-GLUCOSE METER (BEAKER) (test kwlh=9755) 253 mg/dL 70-110 TESTED AT [address] [address] POCT-GLUCOSE [id number] 18:06:00* Test Item Value Reference Range Comments POC-GLUCOSE METER (BEAKER) (test jcuc=4166) 316 mg/dL 70-110 Notified BRENDON JETT/TESTED AT [facility] [address] [facility] [address] POCT-GLUCOSE [id number] 11:51:00* Test Item Value Reference Range Comments POC-GLUCOSE METER (BEAKER) (test nrqd=4809) 285 mg/dL 70-110 TESTED AT [address] [address] HEMOGLOBIN [id number] 11:26:00* Test Item Value Reference Range Comments HEMOGLOBIN A1C (BEAKER) (test vwge=686) 10.0 % 4.3-6.1 POCT-GLUCOSE [id number] 08:58:00* Test Item Value Reference Range Comments POC-GLUCOSE METER (BEAKER) (test kzdm=2744) 155 mg/dL 70-110 TESTED AT [address] [address] TROPONIN [id number] 04:32:00* Test Item Value Reference Range Comments TROPONIN I (BEAKER) (test jznh=446) 0.03 ng/mL 0.00-0.03 Effective 02/11/2014: Reference Range ChangeNew: 0.00-0.03 Previous 0.00-0.15T roponin I (TnI) levels must be interpreted in the context of the presenting symp toms and the clinical findings. Elevated TnI levels indicate myocardial damage, but are not specific for ischemic heart disease. Elevated TnI levels are seen in patients with other cardiac conditions (including myocarditis and congestive he art failure), and slight TnI elevations occur in patients with other conditions, including sepsis, renal failure, acidosis, acute neurological disease, and pers istent tachyarrhythmia.BASIC METABOLIC [id number] 04:29:00* Test Item Value Reference Range Comments SODIUM (BEAKER) (test hlct=811) 134 meq/L 136-145 POTASSIUM (BEAKER) (test ccmh=750) 3.3 meq/L 3.5-5.1 CHLORIDE (BEAKER) (test fweq=448) 97 meq/L 98-107 CO2 (BEAKER) (test fpqk=797) 28 meq/L 22-29 BLOOD UREA NITROGEN (BEAKER) (test skbt=845) 34 mg/dL 7-21 CREATININE (BEAKER) (test iwsk=948) 1.36 mg/dL 0.57-1.25 GLUCOSE RANDOM (BEAKER) (test yuua=640) 180 mg/dL 70-105 CALCIUM (BEAKER) (test jdex=630) 9.0 mg/dL 8.4-10.2 EGFR (BEAKER) (test hyfr=4293) 55 mL/min/1.73 sq m ESTIMATED GFR IS NOT ACCURATE CREATININE CLEARANCE IN PREDICTING GLOMERULAR FILTRATION RATE. ESTIMATED GFR IS NOT APPLICABLE FOR DIALYSIS PATIENTS. POCT-GLUCOSE [id number] 23:14:00* Test Item Value Reference Range Comments POC-GLUCOSE METER (ALOK) (test imka=3676) 243 mg/dL 70-110 TESTED AT [facility] [address] [facility] [address] CREATINE KINASE (CK), TOTAL AND [id number] 17:18:00* Test Item Value Reference Range Comments CREATINE KINASE TOTAL (ALOK) (test aafw=878) 620 U/L 29-200 CREATINE KINASE-MB (ALOK) (test kciw=912) 4.4 ng/mL 0.0-6.6 CREATINE KINASE-MB INDEX ([place]THEW[place]ER) (test emkd=692) 0.7 % Effective 02/11/2014: CK-MB Reference Range ChangeNew: 0.0-6.6 Previous: 0.0- 4.9CK-MB Reference Range:<6.7 Normal6.7-10.0 Borderline>10.0 Abnormal TROPONIN [id number] 17:18:00* Test Item Value Reference Range Comments TROPONIN I (ALOK) (test wume=705) 0.04 ng/mL 0.00-0.03 Effective 02/11/2014: Reference Range ChangeNew: 0.00-0.03 Previous 0.00-0.15T roponin I (TnI) levels must be interpreted in the context of the presenting symp toms and the clinical findings. Elevated TnI levels indicate myocardial damage, but are not specific for ischemic heart disease. Elevated TnI levels are seen in patients with other cardiac conditions (including myocarditis and congestive he art failure), and slight TnI elevations occur in patients with other conditions, including sepsis, renal failure, acidosis, acute neurological disease, and pers istent tachyarrhythmia.B-TYPE NATRIURETIC FACTOR (BNP)2016-08-10 17:16:00* Test Item Value Reference Range Comments B-TYPE NATRIURETIC PEPTIDE (BEAKER) (test mkcd=457) 561 pg/mL 0-100 BASIC METABOLIC [id number] 17:11:00* Test Item Value Reference Range Comments SODIUM (BEAKER) (test qlky=590) 136 meq/L 136-145 POTASSIUM (BEAKER) (test kvny=459) 3.7 meq/L 3.5-5.1 CHLORIDE (BEAKER) (test jrdm=682) 96 meq/L 98-107 CO2 (BEAKER) (test qfxy=740) 26 meq/L 22-29 BLOOD UREA NITROGEN (BEAKER) (test czfs=410) 39 mg/dL 7-21 CREATININE (BEAKER) (test emyn=067) 1.99 mg/dL 0.57-1.25 GLUCOSE RANDOM (BEAKER) (test oqrx=621) 308 mg/dL 70-105 CALCIUM (BEAKER) (test bhqh=630) 9.5 mg/dL 8.4-10.2 EGFR (BEAKER) (test glui=4730) 35 mL/min/1.73 sq m ESTIMATED GFR IS NOT ACCURATE CREATININE CLEARANCE IN PREDICTING GLOMERULAR FILTRATION RATE. ESTIMATED GFR IS NOT APPLICABLE FOR DIALYSIS PATIENTS. CBC W/PLT COUNT & AUTO [id number] 17:00:00* Test Item Value Reference Range Comments WHITE BLOOD CELL COUNT (BEAKER) (test lnmf=947) 10.3 K/ L 4.0-10.0 RED BLOOD CELL COUNT (BEAKER) (test bnth=348) 5.54 M/ L 4.20-5.80 HEMOGLOBIN (BEAKER) (test ywmg=841) 17.4 GM/DL 13.0-16.8 HEMATOCRIT (BEAKER) (test zede=231) 49.9 % 40.0-50.0 MEAN CORPUSCULAR VOLUME (BEAKER) (test stoz=077) 90.0 fL 82.0-98.0 MEAN CORPUSCULAR HEMOGLOBIN (BEAKER) (test wxei=846) 31.4 pg 27.0-33.0 MEAN CORPUSCULAR HEMOGLOBIN CONC (BEAKER) (test rbab=634) 34.9 GM/DL 32.0-36.0 RED CELL DISTRIBUTION WIDTH (BEAKER) (test qoqg=473) 13.8 % 10.3-14.2 PLATELET COUNT (BEAKER) (test rdjm=004) 200 K/CU MM 150-430 MEAN PLATELET VOLUME (BEAKER) (test dgpf=659) 7.9 fL 6.5-10.5 NUCLEATED RED BLOOD CELLS (BEAKER) (test kzxz=445) 0 /100 WBC 0-0 NEUTROPHILS RELATIVE PERCENT (BEAKER) (test xvyu=926) 77 % LYMPHOCYTES RELATIVE PERCENT (BEAKER) (test hfkk=582) 13 % MONOCYTES RELATIVE PERCENT (BEAKER) (test tgmx=839) 9 % EOSINOPHILS RELATIVE PERCENT (BEAKER) (test pdrp=506) 1 % BASOPHILS RELATIVE PERCENT (BEAKER) (test herz=893) 0 % NEUTROPHILS ABSOLUTE COUNT (BEAKER) (test smik=912) 7.97 K/ L 1.80-8.00 LYMPHOCYTES ABSOLUTE COUNT (BEAKER) (test kyic=024) 1.30 K/ L 1.48-4.50 MONOCYTES ABSOLUTE COUNT (BEAKER) (test qoeh=805) 0.95 K/ L 0.00-1.30 EOSINOPHILS ABSOLUTE COUNT (BEAKER) (test pnpa=344) 0.08 K/ L 0.00-0.50 BASOPHILS ABSOLUTE COUNT (BEAKER) (test qnak=637) 0.04 K/ L 0.00-0.20 0.00HEMOGLOBIN [id number] 12:49:00* Test Item Value Reference Range Comments HEMOGLOBIN A1C (BEAKER) (test oqqq=649) 9.7 % 4.3-6.1 CBC W/PLT COUNT & AUTO [id number] 11:31:00* Test Item Value Reference Range Comments WHITE BLOOD CELL COUNT (BEAKER) (test sauo=113) 8.0 K/ L 4.0-10.0 RED BLOOD CELL COUNT (BEAKER) (test vsut=759) 5.69 M/ L 4.20-5.80 HEMOGLOBIN (BEAKER) (test tcxl=907) 17.7 GM/DL 13.0-16.8 HEMATOCRIT (BEAKER) (test pyze=414) 52.1 % 40.0-50.0 MEAN CORPUSCULAR VOLUME (BEAKER) (test nawv=342) 91.5 fL 82.0-98.0 MEAN CORPUSCULAR HEMOGLOBIN (BEAKER) (test jftm=937) 31.2 pg 27.0-33.0 MEAN CORPUSCULAR HEMOGLOBIN CONC (BEAKER) (test bnqt=580) 34.1 GM/DL 32.0-36.0 RED CELL DISTRIBUTION WIDTH (BEAKER) (test mgtx=068) 12.7 % 10.3-14.2 PLATELET COUNT (BEAKER) (test mrlr=210) 177 K/CU MM 150-430 MEAN PLATELET VOLUME (BEAKER) (test zffa=205) 7.6 fL 6.5-10.5 NUCLEATED RED BLOOD CELLS (BEAKER) (test mgxq=490) 0 /100 WBC 0-0 NEUTROPHILS RELATIVE PERCENT (BEAKER) (test baea=911) 74 % LYMPHOCYTES RELATIVE PERCENT (BEAKER) (test ghas=084) 15 % MONOCYTES RELATIVE PERCENT (BEAKER) (test wiuk=475) 9 % EOSINOPHILS RELATIVE PERCENT (BEAKER) (test vqor=930) 1 % BASOPHILS RELATIVE PERCENT (BEAKER) (test lmmu=476) 0 % NEUTROPHILS ABSOLUTE COUNT (BEAKER) (test rkcy=115) 5.94 K/ L 1.80-8.00 LYMPHOCYTES ABSOLUTE COUNT (BEAKER) (test heik=763) 1.22 K/ L 1.48-4.50 MONOCYTES ABSOLUTE COUNT (BEAKER) (test tsbb=409) 0.72 K/ L 0.00-1.30 EOSINOPHILS ABSOLUTE COUNT (BEAKER) (test kbdm=776) 0.10 K/ L 0.00-0.50 BASOPHILS ABSOLUTE COUNT (BEAKER) (test vxxn=956) 0.02 K/ L 0.00-0.20 0.00B-TYPE NATRIURETIC FACTOR (BNP)2016-08-08 11:20:00* Test Item Value Reference Range Comments B-TYPE NATRIURETIC PEPTIDE (BEAKER) (test gtzp=600) 387 pg/mL 0-100 BASIC METABOLIC [id number] 11:12:00* Test Item Value Reference Range Comments SODIUM (BEAKER) (test kstc=621) 135 meq/L 136-145 POTASSIUM (BEAKER) (test nuqv=076) 3.7 meq/L 3.5-5.1 CHLORIDE (BEAKER) (test xhvn=702) 95 meq/L 98-107 CO2 (BEAKER) (test umap=505) 29 meq/L 22-29 BLOOD UREA NITROGEN (BEAKER) (test nuwi=239) 30 mg/dL 7-21 CREATININE (BEAKER) (test iwjv=157) 1.67 mg/dL 0.57-1.25 GLUCOSE RANDOM (BEAKER) (test rqff=386) 258 mg/dL 70-105 CALCIUM (BEAKER) (test ubcx=089) 9.6 mg/dL 8.4-10.2 EGFR (BEAKER) (test apii=4417) 43 mL/min/1.73 sq m ESTIMATED GFR IS NOT ACCURATE CREATININE CLEARANCE IN PREDICTING GLOMERULAR FILTRATION RATE. ESTIMATED GFR IS NOT APPLICABLE FOR DIALYSIS PATIENTS. BASIC METABOLIC [id number] 14:05:00* Test Item Value Reference Range Comments SODIUM (BEAKER) (test iwtk=580) 135 meq/L 136-145 POTASSIUM (BEAKER) (test lxsw=192) 4.1 meq/L 3.5-5.1 CHLORIDE (BEAKER) (test jhzy=573) 92 meq/L 98-107 CO2 (BEAKER) (test awga=192) 30 meq/L 22-29 BLOOD UREA NITROGEN (BEAKER) (test ncjb=714) 42 mg/dL 7-21 CREATININE (BEAKER) (test shlf=137) 3.02 mg/dL 0.57-1.25 GLUCOSE RANDOM (BEAKER) (test ixwq=092) 432 mg/dL 70-105 CALCIUM (BEAKER) (test hgji=756) 9.6 mg/dL 8.4-10.2 EGFR (BEAKER) (test xggo=9898) 22 mL/min/1.73 sq m ESTIMATED GFR IS NOT ACCURATE CREATININE CLEARANCE IN PREDICTING GLOMERULAR FILTRATION RATE. ESTIMATED GFR IS NOT APPLICABLE FOR DIALYSIS PATIENTS. B-TYPE NATRIURETIC FACTOR (BNP)2016-08-03 13:47:00* Test Item Value Reference Range Comments B-TYPE NATRIURETIC PEPTIDE (BEAKER) (test pjvk=388) 198 pg/mL 0-100 CBC W/PLT COUNT & AUTO [id number] 13:34:00* Test Item Value Reference Range Comments WHITE BLOOD CELL COUNT (BEAKER) (test stxx=213) 10.1 K/ L 4.0-10.0 RED BLOOD CELL COUNT (BEAKER) (test skpa=975) 5.96 M/ L 4.20-5.80 HEMOGLOBIN (BEAKER) (test mmfl=898) 18.6 GM/DL 13.0-16.8 HEMATOCRIT (BEAKER) (test xnmq=887) 55.2 % 40.0-50.0 MEAN CORPUSCULAR VOLUME (BEAKER) (test mzrw=194) 92.7 fL 82.0-98.0 MEAN CORPUSCULAR HEMOGLOBIN (BEAKER) (test srgg=911) 31.2 pg 27.0-33.0 MEAN CORPUSCULAR HEMOGLOBIN CONC (BEAKER) (test usld=563) 33.7 GM/DL 32.0-36.0 RED CELL DISTRIBUTION WIDTH (BEAKER) (test lpzz=476) 13.1 % 10.3-14.2 PLATELET COUNT (BEAKER) (test kmps=031) 206 K/CU MM 150-430 MEAN PLATELET VOLUME (BEAKER) (test wkvr=434) 7.5 fL 6.5-10.5 NUCLEATED RED BLOOD CELLS (BEAKER) (test azir=759) 0 /100 WBC 0-0 NEUTROPHILS RELATIVE PERCENT (BEAKER) (test vrtn=300) 82 % LYMPHOCYTES RELATIVE PERCENT (BEAKER) (test ddvx=630) 10 % MONOCYTES RELATIVE PERCENT (BEAKER) (test zqap=728) 7 % EOSINOPHILS RELATIVE PERCENT (BEAKER) (test joot=011) 1 % BASOPHILS RELATIVE PERCENT (BEAKER) (test eziy=778) 0 % NEUTROPHILS ABSOLUTE COUNT (BEAKER) (test delo=800) 8.25 K/ L 1.80-8.00 LYMPHOCYTES ABSOLUTE COUNT (BEAKER) (test yyeq=279) 0.97 K/ L 1.48-4.50 MONOCYTES ABSOLUTE COUNT (BEAKER) (test itug=760) 0.74 K/ L 0.00-1.30 EOSINOPHILS ABSOLUTE COUNT (BEAKER) (test wwmz=225) 0.13 K/ L 0.00-0.50 BASOPHILS ABSOLUTE COUNT (BEAKER) (test fdsv=339) 0.02 K/ L 0.00-0.20 0.00B-TYPE NATRIURETIC FACTOR (BNP)2016-07-11 11:13:00* Test Item Value Reference Range Comments B-TYPE NATRIURETIC PEPTIDE (BEAKER) (test dmrl=174) 172 pg/mL 0-100 CBC W/PLT COUNT & AUTO [id number] 11:12:00* Test Item Value Reference Range Comments WHITE BLOOD CELL COUNT (BEAKER) (test oybx=446) 7.7 K/ L 4.0-10.0 RED BLOOD CELL COUNT (BEAKER) (test htln=133) 5.65 M/ L 4.20-5.80 HEMOGLOBIN (BEAKER) (test usgg=843) 16.9 GM/DL 13.0-16.8 HEMATOCRIT (BEAKER) (test nocx=587) 52.5 % 40.0-50.0 MEAN CORPUSCULAR VOLUME (BEAKER) (test ecbk=055) 93.0 fL 82.0-98.0 MEAN CORPUSCULAR HEMOGLOBIN (BEAKER) (test nvtd=840) 30.0 pg 27.0-33.0 MEAN CORPUSCULAR HEMOGLOBIN CONC (BEAKER) (test lwub=625) 32.2 GM/DL 32.0-36.0 RED CELL DISTRIBUTION WIDTH (BEAKER) (test arsg=683) 12.6 % 10.3-14.2 PLATELET COUNT (BEAKER) (test luoo=484) 170 K/CU MM 150-430 MEAN PLATELET VOLUME (BEAKER) (test vjhw=731) 7.8 fL 6.5-10.5 NUCLEATED RED BLOOD CELLS (BEAKER) (test ilqx=706) 0 /100 WBC 0-0 NEUTROPHILS RELATIVE PERCENT (BEAKER) (test qhne=174) 70 % LYMPHOCYTES RELATIVE PERCENT (BEAKER) (test xqus=740) 17 % MONOCYTES RELATIVE PERCENT (BEAKER) (test ppbg=154) 9 % EOSINOPHILS RELATIVE PERCENT (BEAKER) (test ogrk=122) 3 % BASOPHILS RELATIVE PERCENT (BEAKER) (test luws=872) 0 % NEUTROPHILS ABSOLUTE COUNT (BEAKER) (test upaq=376) 5.40 K/ L 1.80-8.00 LYMPHOCYTES ABSOLUTE COUNT (BEAKER) (test ewpn=799) 1.32 K/ L 1.48-4.50 MONOCYTES ABSOLUTE COUNT (BEAKER) (test kjxs=837) 0.73 K/ L 0.00-1.30 EOSINOPHILS ABSOLUTE COUNT (BEAKER) (test vbjc=212) 0.23 K/ L 0.00-0.50 BASOPHILS ABSOLUTE COUNT (BEAKER) (test ukyb=135) 0.02 K/ L 0.00-0.20 0.00BASI METABOLIC [id number] 11:08:00* Test Item Value Reference Range Comments SODIUM (BEAKER) (test ljcy=199) 135 meq/L 136-145 POTASSIUM (BEAKER) (test qvbz=077) 3.7 meq/L 3.5-5.1 CHLORIDE (BEAKER) (test wjgd=820) 94 meq/L 98-107 CO2 (BEAKER) (test unkf=968) 28 meq/L 22-29 BLOOD UREA NITROGEN (BEAKER) (test aoyg=125) 42 mg/dL 7-21 CREATININE (BEAKER) (test uquw=209) 1.69 mg/dL 0.57-1.25 GLUCOSE RANDOM (BEAKER) (test vzqt=868) 335 mg/dL 70-105 CALCIUM (BEAKER) (test orta=924) 9.8 mg/dL 8.4-10.2 EGFR (BEAKER) (test nubp=8664) 43 mL/min/1.73 sq m ESTIMATED GFR IS NOT ACCURATE CREATININE CLEARANCE IN PREDICTING GLOMERULAR FILTRATION RATE. ESTIMATED GFR IS NOT APPLICABLE FOR DIALYSIS PATIENTS. B-TYPE NATRIURETIC FACTOR (BNP)2016-06-27 13:37:00* Test Item Value Reference Range Comments B-TYPE NATRIURETIC PEPTIDE (BEAKER) (test yhlk=394) 918 pg/mL 0-100 COMPREHENSIVE METABOLIC [id number] 13:31:00* Test Item Value Reference Range Comments TOTAL PROTEIN (BEAKER) (test dvet=895) 6.8 gm/dL 6.0-8.3 ALBUMIN (BEAKER) (test sbdv=2296) 4.2 g/dL 3.5-5.0 ALKALINE PHOSPHATASE (BEAKER) (test psfx=566) 109 U/L 40-150 BILIRUBIN TOTAL (BEAKER) (test xkuu=168) 1.4 mg/dL 0.2-1.2 SODIUM (BEAKER) (test fnrl=244) 138 meq/L 136-145 POTASSIUM (BEAKER) (test urhg=833) 3.9 meq/L 3.5-5.1 CHLORIDE (BEAKER) (test gzod=459) 102 meq/L 98-107 CO2 (BEAKER) (test seyy=194) 24 meq/L 22-29 BLOOD UREA NITROGEN (BEAKER) (test shyf=225) 23 mg/dL 7-21 CREATININE (BEAKER) (test ngnm=947) 1.36 mg/dL 0.57-1.25 GLUCOSE RANDOM (BEAKER) (test soae=648) 157 mg/dL 70-105 CALCIUM (BEAKER) (test enfd=670) 9.0 mg/dL 8.4-10.2 AST (SGOT) (BEAKER) (test rnxs=274) 18 U/L 5-34 ALT (SGPT) (BEAKER) (test lbus=747) 29 U/L 6-55 EGFR (BEAKER) (test wusc=7570) 55 mL/min/1.73 sq m ESTIMATED GFR IS NOT ACCURATE CREATININE CLEARANCE IN PREDICTING GLOMERULAR FILTRATION RATE. ESTIMATED GFR IS NOT APPLICABLE FOR DIALYSIS PATIENTS. CBC W/PLT COUNT & AUTO [id number] 13:08:00* Test Item Value Reference Range Comments WHITE BLOOD CELL COUNT (BEAKER) (test egfh=210) 7.5 K/ L 4.0-10.0 RED BLOOD CELL COUNT (BEAKER) (test dyfn=778) 4.62 M/ L 4.20-5.80 HEMOGLOBIN (BEAKER) (test hckd=013) 14.9 GM/DL 13.0-16.8 HEMATOCRIT (BEAKER) (test kfxs=855) 43.9 % 40.0-50.0 MEAN CORPUSCULAR VOLUME (BEAKER) (test bawo=781) 95.1 fL 82.0-98.0 MEAN CORPUSCULAR HEMOGLOBIN (BEAKER) (test nnqq=506) 32.3 pg 27.0-33.0 MEAN CORPUSCULAR HEMOGLOBIN CONC (BEAKER) (test ykrg=158) 34.0 GM/DL 32.0-36.0 RED CELL DISTRIBUTION WIDTH (BEAKER) (test qhlv=223) 14.3 % 10.3-14.2 PLATELET COUNT (BEAKER) (test uktz=441) 174 K/CU MM 150-430 MEAN PLATELET VOLUME (BEAKER) (test rvov=172) 7.7 fL 6.5-10.5 NUCLEATED RED BLOOD CELLS (BEAKER) (test ornz=254) 0 /100 WBC 0-0 NEUTROPHILS RELATIVE PERCENT (BEAKER) (test ydzi=035) 81 % LYMPHOCYTES RELATIVE PERCENT (BEAKER) (test ucxa=086) 11 % MONOCYTES RELATIVE PERCENT (BEAKER) (test ltaz=333) 6 % EOSINOPHILS RELATIVE PERCENT (BEAKER) (test yiuz=681) 2 % BASOPHILS RELATIVE PERCENT (BEAKER) (test ryqj=706) 0 % NEUTROPHILS ABSOLUTE COUNT (BEAKER) (test kbnb=303) 6.14 K/ L 1.80-8.00 LYMPHOCYTES ABSOLUTE COUNT (BEAKER) (test usmv=359) 0.81 K/ L 1.48-4.50 MONOCYTES ABSOLUTE COUNT (BEAKER) (test sxvk=276) 0.44 K/ L 0.00-1.30 EOSINOPHILS ABSOLUTE COUNT (BEAKER) (test dnmr=879) 0.16 K/ L 0.00-0.50 BASOPHILS ABSOLUTE COUNT (BEAKER) (test lfyc=490) 0.00 K/ L 0.00-0.20 0.00RAPID INFLUENZA A&B [id number] 21:20:00* Test Item Value Reference Range Comments RAPID INFLUENZA A AG (BEAKER) (test ebqv=0147) Negative Negative, Inconclusive RAPID INFLUENZA B AG (BEAKER) (test uruc=0593) Negative Negative, Inconclusive CREATINE KINASE (CK), TOTAL AND [id number] 20:21:00* Test Item Value Reference Range Comments CREATINE KINASE TOTAL (BEAKER) (test ijqm=123) 177 U/L 29-200 CREATINE KINASE-MB (BEAKER) (test dgjc=572) 2.1 ng/mL 0.0-6.6 CREATINE KINASE-MB INDEX (BEAKER) (test mggz=685) 1.2 % Effective 02/11/2014: CK-MB Reference Range ChangeNew: 0.0-6.6 Previous: 0.0- 4.9CK-MB Reference Range:<6.7 Normal6.7-10.0 Borderline>10.0 Abnormal TROPONIN [id number] 20:21:00* Test Item Value Reference Range Comments TROPONIN I (BEAKER) (test okiq=198) 0.02 ng/mL 0.00-0.03 Effective 02/11/2014: Reference Range ChangeNew: 0.00-0.03 Previous 0.00-0.15T roponin I (TnI) levels must be interpreted in the context of the presenting symp toms and the clinical findings. Elevated TnI levels indicate myocardial damage, but are not specific for ischemic heart disease. Elevated TnI levels are seen in patients with other cardiac conditions (including myocarditis and congestive he art failure), and slight TnI elevations occur in patients with other conditions, including sepsis, renal failure, acidosis, acute neurological disease, and pers istent tachyarrhythmia.B-TYPE NATRIURETIC FACTOR (BNP)2016-06-18 20:21:00* Test Item Value Reference Range Comments B-TYPE NATRIURETIC PEPTIDE (BEAKER) (test lidg=316) 1421 pg/mL 0-100 [id number] 20:15:00* Test Item Value Reference Range Comments MAGNESIUM (BEAKER) (test calu=968) 2.0 mg/dL 1.6-2.6 Specimen slightly hemolyzed BASIC METABOLIC [id number] 20:15:00* Test Item Value Reference Range Comments SODIUM (BEAKER) (test meaz=358) 139 meq/L 136-145 POTASSIUM (BEAKER) (test hsvb=623) 4.1 meq/L 3.5-5.1 Specimen slightly hemolyzed CHLORIDE (BEAKER) (test yaay=218) 104 meq/L 98-107 CO2 (BEAKER) (test rgme=501) 21 meq/L 22-29 BLOOD UREA NITROGEN (BEAKER) (test xitp=647) 21 mg/dL 7-21 CREATININE (BEAKER) (test yjhc=786) 1.54 mg/dL 0.57-1.25 Specimen slightly hemolyzed GLUCOSE RANDOM (BEAKER) (test awar=738) 196 mg/dL 70-105 CALCIUM (BEAKER) (test wcjt=528) 8.8 mg/dL 8.4-10.2 EGFR (BEAKER) (test pzlt=7773) 48 mL/min/1.73 sq m ESTIMATED GFR IS NOT ACCURATE CREATININE CLEARANCE IN PREDICTING GLOMERULAR FILTRATION RATE. ESTIMATED GFR IS NOT APPLICABLE FOR DIALYSIS PATIENTS. [id number] 20:09:00* Test Item Value Reference Range Comments PROTIME (BEAKER) (test vjql=827) 29.3 seconds 11.7-14.7 INR (BEAKER) (test nnmw=032) 2.8 <=5.9 PARTIAL THROMBOPLASTIN TIME (BEAKER) (test ibyn=558) 43.5 seconds 22.5-36.0 RECOMMENDED COUMADIN/WARFARIN INR THERAPY RANGESSTANDARD DOSE: 2.0 - 3.0 Inclu rianna: PROPHYLAXIS for venous thrombosis, systemic embolization; TREATMENT for danii ous thrombosis and/or pulmonary embolus.HIGH RISK: Target INR is 2.5-3.5 for pat ients with mechanical heart valves.CBC W/PLT COUNT & AUTO [id number] 20:00:00* Test Item Value Reference Range Comments WHITE BLOOD CELL COUNT (BEAKER) (test bwhg=786) 9.1 K/ L 4.0-10.0 RED BLOOD CELL COUNT (BEAKER) (test ubqu=071) 4.67 M/ L 4.20-5.80 HEMOGLOBIN (BEAKER) (test bars=123) 15.1 GM/DL 13.0-16.8 HEMATOCRIT (BEAKER) (test axqi=183) 44.9 % 40.0-50.0 MEAN CORPUSCULAR VOLUME (BEAKER) (test pmkf=988) 96.1 fL 82.0-98.0 MEAN CORPUSCULAR HEMOGLOBIN (BEAKER) (test zllf=447) 32.4 pg 27.0-33.0 MEAN CORPUSCULAR HEMOGLOBIN CONC (BEAKER) (test ahdk=797) 33.7 GM/DL 32.0-36.0 RED CELL DISTRIBUTION WIDTH (BEAKER) (test rnzq=117) 13.8 % 10.3-14.2 PLATELET COUNT (BEAKER) (test oukt=612) 201 K/CU MM 150-430 MEAN PLATELET VOLUME (BEAKER) (test oyyx=120) 7.9 fL 6.5-10.5 NUCLEATED RED BLOOD CELLS (BEAKER) (test ogqh=883) 0 /100 WBC 0-0 NEUTROPHILS RELATIVE PERCENT (BEAKER) (test iram=400) 81 % LYMPHOCYTES RELATIVE PERCENT (BEAKER) (test iibf=898) 12 % MONOCYTES RELATIVE PERCENT (BEAKER) (test tpoo=153) 5 % EOSINOPHILS RELATIVE PERCENT (BEAKER) (test yfmp=503) 1 % BASOPHILS RELATIVE PERCENT (BEAKER) (test xpeg=809) 1 % NEUTROPHILS ABSOLUTE COUNT (BEAKER) (test ddno=590) 7.40 K/ L 1.80-8.00 LYMPHOCYTES ABSOLUTE COUNT (BEAKER) (test ytxs=927) 1.13 K/ L 1.48-4.50 MONOCYTES ABSOLUTE COUNT (BEAKER) (test vdbe=137) 0.45 K/ L 0.00-1.30 EOSINOPHILS ABSOLUTE COUNT (BEAKER) (test ynao=048) 0.08 K/ L 0.00-0.50 BASOPHILS ABSOLUTE COUNT (BEAKER) (test cwkr=700) 0.06 K/ L 0.00-0.20 0.00BASIC METABOLIC [id number] 10:52:00* Test Item Value Reference Range Comments SODIUM (BEAKER) (test eaep=464) 139 meq/L 136-145 POTASSIUM (BEAKER) (test hsyf=214) 4.9 meq/L 3.5-5.1 CHLORIDE (BEAKER) (test rfel=811) 101 meq/L 98-107 CO2 (BEAKER) (test werq=359) 29 meq/L 22-29 BLOOD UREA NITROGEN (BEAKER) (test avqn=527) 28 mg/dL 7-21 CREATININE (BEAKER) (test etet=319) 1.43 mg/dL 0.57-1.25 GLUCOSE RANDOM (BEAKER) (test chbm=239) 183 mg/dL 70-105 CALCIUM (BEAKER) (test plnd=369) 9.3 mg/dL 8.4-10.2 EGFR (BEAKER) (test aofb=8190) 52 mL/min/1.73 sq m ESTIMATED GFR IS NOT ACCURATE CREATININE CLEARANCE IN PREDICTING GLOMERULAR FILTRATION RATE. ESTIMATED GFR IS NOT APPLICABLE FOR DIALYSIS PATIENTS. B-TYPE NATRIURETIC FACTOR (BNP)2016-06-13 10:27:00* Test Item Value Reference Range Comments B-TYPE NATRIURETIC PEPTIDE (BEAKER) (test xoaf=519) 1100 pg/mL 0-100 CBC W/PLT COUNT & AUTO [id number] 09:55:00* Test Item Value Reference Range Comments WHITE BLOOD CELL COUNT (BEAKER) (test isbs=228) 7.2 K/ L 4.0-10.0 RED BLOOD CELL COUNT (BEAKER) (test jmfe=857) 5.18 M/ L 4.20-5.80 HEMOGLOBIN (BEAKER) (test ekpt=608) 16.1 GM/DL 13.0-16.8 HEMATOCRIT (BEAKER) (test ifms=848) 49.5 % 40.0-50.0 MEAN CORPUSCULAR VOLUME (BEAKER) (test knnk=691) 95.5 fL 82.0-98.0 MEAN CORPUSCULAR HEMOGLOBIN (BEAKER) (test xdzc=415) 31.0 pg 27.0-33.0 MEAN CORPUSCULAR HEMOGLOBIN CONC (BEAKER) (test zswl=354) 32.5 GM/DL 32.0-36.0 RED CELL DISTRIBUTION WIDTH (BEAKER) (test ihdq=389) 12.5 % 10.3-14.2 PLATELET COUNT (BEAKER) (test dzxs=895) 186 K/CU MM 150-430 MEAN PLATELET VOLUME (BEAKER) (test wpjy=078) 7.4 fL 6.5-10.5 NUCLEATED RED BLOOD CELLS (BEAKER) (test slyx=189) 0 /100 WBC 0-0 NEUTROPHILS RELATIVE PERCENT (BEAKER) (test hiot=199) 69 % LYMPHOCYTES RELATIVE PERCENT (BEAKER) (test fqzp=750) 17 % MONOCYTES RELATIVE PERCENT (BEAKER) (test mfax=377) 12 % EOSINOPHILS RELATIVE PERCENT (BEAKER) (test uacl=869) 2 % BASOPHILS RELATIVE PERCENT (BEAKER) (test olhv=595) 0 % NEUTROPHILS ABSOLUTE COUNT (BEAKER) (test ehuk=312) 4.98 K/ L 1.80-8.00 LYMPHOCYTES ABSOLUTE COUNT (BEAKER) (test dhhk=131) 1.25 K/ L 1.48-4.50 MONOCYTES ABSOLUTE COUNT (BEAKER) (test fmsd=775) 0.84 K/ L 0.00-1.30 EOSINOPHILS ABSOLUTE COUNT (BEAKER) (test jtjv=958) 0.13 K/ L 0.00-0.50 BASOPHILS ABSOLUTE COUNT (BEAKER) (test mihg=960) 0.03 K/ L 0.00-0.20 0.00POCT-GLUCOSE [id number] 12:53:00* Test Item Value Reference Range Comments POC-GLUCOSE METER (BEAKER) (test emus=6847) 234 mg/dL 70-110 TESTED AT [facility] [address] [facility] [address] POCT-GLUCOSE [id number] 08:09:00* Test Item Value Reference Range Comments POC-GLUCOSE METER (BEAKER) (test gfen=5415) 137 mg/dL 70-110 TESTED AT [facility] [address] [facility] [address] POCT-GLUCOSE [id number] 20:56:00* Test Item Value Reference Range Comments POC-GLUCOSE METER (BEAKER) (test rpie=5652) 212 mg/dL 70-110 TESTED AT [address] [address] POCT-GLUCOSE [id number] 18:46:00* Test Item Value Reference Range Comments POC-GLUCOSE METER (BEAKER) (test csfw=0695) 210 mg/dL 70-110 TESTED AT [address] [address] POCT-GLUCOSE [id number] 11:51:00* Test Item Value Reference Range Comments POC-GLUCOSE METER (BEAKER) (test cwyw=2963) 138 mg/dL 70-110 TESTED AT [address] [address] POCT-GLUCOSE [id number] 07:20:00* Test Item Value Reference Range Comments POC-GLUCOSE METER (BEAKER) (test sehz=4977) 263 mg/dL 70-110 TESTED AT [address] [address] POCT-GLUCOSE [id number] 20:54:00* Test Item Value Reference Range Comments POC-GLUCOSE METER (BEAKER) (test tedo=8544) 183 mg/dL 70-110 TESTED AT [address] [address] POCT-GLUCOSE [id number] 17:09:00* Test Item Value Reference Range Comments POC-GLUCOSE METER (BEAKER) (test jmyl=5756) 123 mg/dL 70-110 TESTED AT [address] [address] POCT-GLUCOSE [id number] 12:16:00* Test Item Value Reference Range Comments POC-GLUCOSE METER (BEAKER) (test lvli=8777) 204 mg/dL 70-110 TESTED AT [address] [address] POCT-GLUCOSE [id number] 08:28:00* Test Item Value Reference Range Comments POC-GLUCOSE METER (BEAKER) (test mwzh=3137) 159 mg/dL 70-110 TESTED AT [address] [address] [id number] 06:09:00* Test Item Value Reference Range Comments MAGNESIUM (BEAKER) (test oggx=368) 2.2 mg/dL 1.6-2.6 BASIC METABOLIC [id number] 06:09:00* Test Item Value Reference Range Comments SODIUM (BEAKER) (test anlp=399) 140 meq/L 136-145 POTASSIUM (BEAKER) (test hsih=514) 4.0 meq/L 3.5-5.1 CHLORIDE (BEAKER) (test xsae=580) 101 meq/L 98-107 CO2 (BEAKER) (test tcts=426) 26 meq/L 22-29 BLOOD UREA NITROGEN (BEAKER) (test xlyv=337) 25 mg/dL 7-21 CREATININE (BEAKER) (test oysk=559) 1.31 mg/dL 0.57-1.25 GLUCOSE RANDOM (BEAKER) (test zzls=588) 185 mg/dL 70-105 CALCIUM (BEAKER) (test jdxd=730) 9.0 mg/dL 8.4-10.2 EGFR (BEAKER) (test alnl=9865) 58 mL/min/1.73 sq m ESTIMATED GFR IS NOT ACCURATE CREATININE CLEARANCE IN PREDICTING GLOMERULAR FILTRATION RATE. ESTIMATED GFR IS NOT APPLICABLE FOR DIALYSIS PATIENTS. POCT-GLUCOSE [id number] 20:58:00* Test Item Value Reference Range Comments POC-GLUCOSE METER (BEAKER) (test rbtl=8455) 163 mg/dL 70-110 TESTED AT [address] [address] POCT-GLUCOSE [id number] 16:58:00* Test Item Value Reference Range Comments POC-GLUCOSE METER (BEAKER) (test tsqa=5032) 138 mg/dL 70-110 TESTED AT [address] [address] POCT-GLUCOSE [id number] 12:35:00* Test Item Value Reference Range Comments POC-GLUCOSE METER (BEAKER) (test ixxm=7213) 223 mg/dL 70-110 TESTED AT [address] [address] POCT-GLUCOSE [id number] 08:51:00* Test Item Value Reference Range Comments POC-GLUCOSE METER (BEAKER) (test lile=4025) 124 mg/dL 70-110 TESTED AT [address] [address] BASIC METABOLIC [id number] 05:42:00* Test Item Value Reference Range Comments SODIUM (BEAKER) (test xtiu=584) 140 meq/L 136-145 POTASSIUM (BEAKER) (test wiyg=031) 4.0 meq/L 3.5-5.1 Specimen slightly hemolyzed CHLORIDE (BEAKER) (test opny=349) 101 meq/L 98-107 CO2 (BEAKER) (test wyzr=735) 27 meq/L 22-29 BLOOD UREA NITROGEN (BEAKER) (test fles=998) 27 mg/dL 7-21 CREATININE (BEAKER) (test kywe=973) 1.27 mg/dL 0.57-1.25 Specimen slightly hemolyzed GLUCOSE RANDOM (BEAKER) (test ouwq=352) 142 mg/dL 70-105 CALCIUM (BEAKER) (test vscz=663) 8.8 mg/dL 8.4-10.2 EGFR (BEAKER) (test ugvu=4547) 60 mL/min/1.73 sq m ESTIMATED GFR IS NOT ACCURATE CREATININE CLEARANCE IN PREDICTING GLOMERULAR FILTRATION RATE. ESTIMATED GFR IS NOT APPLICABLE FOR DIALYSIS PATIENTS. POCT-GLUCOSE [id number] 20:47:00* Test Item Value Reference Range Comments POC-GLUCOSE METER (BEAKER) (test ygdb=1951) 149 mg/dL 70-110 TESTED AT [place] [address] POCT-GLUCOSE [id number] 16:30:00* Test Item Value Reference Range Comments POC-GLUCOSE METER (BEAKER) (test lcxb=5951) 134 mg/dL 70-110 TESTED AT [place] [address] POCT-GLUCOSE [id number] 12:46:00* Test Item Value Reference Range Comments POC-GLUCOSE METER (BEAKER) (test qbqo=5506) 177 mg/dL 70-110 TESTED AT [place] [id number] POCT-GLUCOSE [id number] 08:33:00* Test Item Value Reference Range Comments POC-GLUCOSE METER (BEAKER) (test euny=8087) 123 mg/dL 70-110 TESTED AT [place] [address] BASIC METABOLIC [id number] 05:04:00* Test Item Value Reference Range Comments SODIUM (BEAKER) (test afct=747) 139 meq/L 136-145 POTASSIUM (BEAKER) (test oasy=333) 3.3 meq/L 3.5-5.1 CHLORIDE (BEAKER) (test lfon=663) 100 meq/L 98-107 CO2 (BEAKER) (test gtma=181) 30 meq/L 22-29 BLOOD UREA NITROGEN (BEAKER) (test zwtn=743) 31 mg/dL 7-21 CREATININE (BEAKER) (test myuw=893) 1.48 mg/dL 0.57-1.25 GLUCOSE RANDOM (BEAKER) (test lamt=958) 128 mg/dL 70-105 CALCIUM (BEAKER) (test asod=649) 8.0 mg/dL 8.4-10.2 EGFR (BEAKER) (test wnds=2402) 50 mL/min/1.73 sq m ESTIMATED GFR IS NOT ACCURATE CREATININE CLEARANCE IN PREDICTING GLOMERULAR FILTRATION RATE. ESTIMATED GFR IS NOT APPLICABLE FOR DIALYSIS PATIENTS. POCT-GLUCOSE [id number] 20:52:00* Test Item Value Reference Range Comments POC-GLUCOSE METER (BEAKER) (test stjt=3321) 184 mg/dL 70-110 TESTED AT [address] [address] POCT-GLUCOSE [id number] 16:59:00* Test Item Value Reference Range Comments POC-GLUCOSE METER (BEAKER) (test nxsi=4529) 115 mg/dL 70-110 TESTED AT [address] [address] POCT-GLUCOSE [id number] 12:38:00* Test Item Value Reference Range Comments POC-GLUCOSE METER (BEAKER) (test jdld=3587) 172 mg/dL 70-110 TESTED AT [address] [address] POCT-GLUCOSE [id number] 09:33:00* Test Item Value Reference Range Comments POC-GLUCOSE METER (BEAKER) (test xlge=2665) 130 mg/dL 70-110 TESTED AT [address] [address] HEMOGLOBIN [id number] 07:46:00* Test Item Value Reference Range Comments HEMOGLOBIN A1C (BEAKER) (test dixb=096) 7.6 % 4.3-6.1 BASIC METABOLIC [id number] 05:54:00* Test Item Value Reference Range Comments SODIUM (BEAKER) (test wxje=610) 138 meq/L 136-145 POTASSIUM (BEAKER) (test fkll=186) 4.3 meq/L 3.5-5.1 CHLORIDE (BEAKER) (test gdvp=988) 101 meq/L 98-107 CO2 (BEAKER) (test sozh=745) 25 meq/L 22-29 BLOOD UREA NITROGEN (BEAKER) (test kjob=354) 34 mg/dL 7-21 CREATININE (BEAKER) (test rqvw=326) 1.61 mg/dL 0.57-1.25 GLUCOSE RANDOM (BEAKER) (test bgpk=640) 229 mg/dL 70-105 CALCIUM (BEAKER) (test nsaa=503) 8.6 mg/dL 8.4-10.2 EGFR (BEAKER) (test gzhi=0545) 45 mL/min/1.73 sq m ESTIMATED GFR IS NOT ACCURATE CREATININE CLEARANCE IN PREDICTING GLOMERULAR FILTRATION RATE. ESTIMATED GFR IS NOT APPLICABLE FOR DIALYSIS PATIENTS. POCT-GLUCOSE [id number] 21:06:00* Test Item Value Reference Range Comments POC-GLUCOSE METER (BEAKER) (test zskq=5253) 230 mg/dL 70-110 TESTED AT [facility] [address] [facility] [address] RAPID DRUG SCREEN, [id number] 16:32:00* Test Item Value Reference Range Comments BARBITURATE URINE (BEAKER) (test wcfi=515) Negative Negative BENZODIAZEPINE SCREEN URINE (BEAKER) (test kxpo=309) Positive Negative COCAINE (METAB.) SCREEN (BEAKER) (test obhj=7658) Positive Negative METHADONE SCREEN (BEAKER) (test cmdu=4487) Negative Negative OPIATE SCREEN URINE (BEAKER) (test qypo=865) Negative Negative CANNABINOID SCREEN URINE (BEAKER) (test ukax=527) Negative Negative AMPH/METHAMPH SCREEN (BEAKER) (test yeny=9362) Negative Negative PHENCYCLIDINE SCREEN URINE (BEAKER) (test ikjz=057) Negative Negative OXYCODONE SCREEN URINE (BEAKER) (test yskm=2597) Negative Negative DRUG CUTOFF CONC.Cocaine 300 ng/mL Cannabinoid 50 ng/mL Benzodiazepine 200 ng/mLBarbiturate 200 ng/mLPh encyclidine 25 ng/mLOpiate 300 ng/mLMethadone 300 ng/mLAmphetamine/ 1000 ng/mL MethamphetamineOxycodone 300 ng/mLURINALYSIS W/ REFLEX URINE [id number] 16:16:00* Test Item Value Reference Range Comments COLOR (BEAKER) (test ndyc=589) Yellow CLARITY (BEAKER) (test eqtv=442) Clear SPECIFIC GRAVITY UA (BEAKER) (test pcnd=294) 1.023 1.001-1.035 PH UA (BEAKER) (test ilxj=925) 5.5 5.0-8.0 PROTEIN UA (BEAKER) (test mvrx=074) 100 mg/dL Negative GLUCOSE UA (BEAKER) (test dbnh=210) Negative Negative KETONES UA (BEAKER) (test lhhp=101) 10 mg/dL Negative BILIRUBIN UA (BEAKER) (test hloq=294) Negative Negative BLOOD UA (BEAKER) (test kobp=135) Small Negative NITRITE UA (BEAKER) (test wtxz=387) Negative Negative LEUKOCYTE ESTERASE UA (BEAKER) (test tilj=200) Negative Negative UROBILINOGEN UA (BEAKER) (test gwuq=165) 0.2 mg/dL 0.2-1.0 RBC UA (BEAKER) (test jzvk=902) < /HPF WBC UA (BEAKER) (test flmm=769) 1 /HPF MUCUS (BEAKER) (test mydh=8297) Occasional SQUAMOUS EPITHELIAL (BEAKER) (test tklt=499) 1 /HPF HYALINE CASTS (BEAKER) (test abxk=213) 8 /LPF SOURCE(BEAKER) (test crbv=8291) CREATINE KINASE (CK), TOTAL AND [id number] 14:04:00* Test Item Value Reference Range Comments CREATINE KINASE TOTAL (BEAKER) (test xgzb=645) 1036 U/L 29-200 CREATINE KINASE-MB (BEAKER) (test qzue=941) 5.5 ng/mL 0.0-6.6 CREATINE KINASE-MB INDEX (BEAKER) (test bgya=862) 0.5 % Effective 02/11/2014: CK-MB Reference Range ChangeNew: 0.0-6.6 Previous: 0.0- 4.9CK-MB Reference Range:<6.7 Normal6.7-10.0 Borderline>10.0 Abnormal TROPONIN [id number] 14:04:00* Test Item Value Reference Range Comments TROPONIN I (BEAKER) (test vrgs=915) 0.07 ng/mL 0.00-0.03 Effective 02/11/2014: Reference Range ChangeNew: 0.00-0.03 Previous 0.00-0.15T roponin I (TnI) levels must be interpreted in the context of the presenting symp toms and the clinical findings. Elevated TnI levels indicate myocardial damage, but are not specific for ischemic heart disease. Elevated TnI levels are seen in patients with other cardiac conditions (including myocarditis and congestive he art failure), and slight TnI elevations occur in patients with other conditions, including sepsis, renal failure, acidosis, acute neurological disease, and pers istent tachyarrhythmia.B-TYPE NATRIURETIC FACTOR (BNP)2016-06-04 14:00:00* Test Item Value Reference Range Comments B-TYPE NATRIURETIC PEPTIDE (BEAKER) (test ckxw=925) 1242 pg/mL 0-100 [id number] 13:57:00* Test Item Value Reference Range Comments PHOSPHORUS (BEAKER) (test luhh=996) 4.1 mg/dL 2.3-4.7 [id number] 13:57:00* Test Item Value Reference Range Comments MAGNESIUM (BEAKER) (test aaus=999) 1.8 mg/dL 1.6-2.6 COMPREHENSIVE METABOLIC [id number] 13:57:00* Test Item Value Reference Range Comments TOTAL PROTEIN (BEAKER) (test wkhv=333) 7.2 gm/dL 6.0-8.3 ALBUMIN (BEAKER) (test ikhu=7634) 4.5 g/dL 3.5-5.0 ALKALINE PHOSPHATASE (BEAKER) (test ezat=461) 106 U/L 40-150 BILIRUBIN TOTAL (BEAKER) (test dkiu=850) 2.5 mg/dL 0.2-1.2 SODIUM (BEAKER) (test jcry=366) 140 meq/L 136-145 POTASSIUM (BEAKER) (test xzgy=014) 4.6 meq/L 3.5-5.1 CHLORIDE (BEAKER) (test yfsd=609) 103 meq/L 98-107 CO2 (BEAKER) (test rwgy=972) 20 meq/L 22-29 BLOOD UREA NITROGEN (BEAKER) (test wxxh=435) 30 mg/dL 7-21 CREATININE (BEAKER) (test fezd=336) 1.78 mg/dL 0.57-1.25 GLUCOSE RANDOM (BEAKER) (test lxld=112) 189 mg/dL 70-105 CALCIUM (BEAKER) (test ybep=598) 9.2 mg/dL 8.4-10.2 AST (SGOT) (BEAKER) (test tgqu=498) 266 U/L 5-34 ALT (SGPT) (BEAKER) (test jrre=836) 324 U/L 6-55 EGFR (BEAKER) (test dfsi=8156) 40 mL/min/1.73 sq m ESTIMATED GFR IS NOT ACCURATE CREATININE CLEARANCE IN PREDICTING GLOMERULAR FILTRATION RATE. ESTIMATED GFR IS NOT APPLICABLE FOR DIALYSIS PATIENTS. Specimen slightly ictericPT/[id number] 13:55:00* Test Item Value Reference Range Comments PROTIME (BEAKER) (test lisl=453) 24.9 seconds 11.7-14.7 INR (BEAKER) (test wnfq=628) 2.3 <=5.9 PARTIAL THROMBOPLASTIN TIME (BEAKER) (test dsja=504) 36.5 seconds 22.5-36.0 RECOMMENDED COUMADIN/WARFARIN INR THERAPY RANGESSTANDARD DOSE: 2.0 - 3.0 Inclu rianna: PROPHYLAXIS for venous thrombosis, systemic embolization; TREATMENT for danii ous thrombosis and/or pulmonary embolus.HIGH RISK: Target INR is 2.5-3.5 for pat ients with mechanical heart valves.CBC W/PLT COUNT & AUTO [id number] 13:52:00* Test Item Value Reference Range Comments WHITE BLOOD CELL COUNT (BEAKER) (test jkva=744) 15.4 K/ L 4.0-10.0 RED BLOOD CELL COUNT (BEAKER) (test xgei=574) 4.71 M/ L 4.20-5.80 HEMOGLOBIN (BEAKER) (test vyhc=089) 15.6 GM/DL 13.0-16.8 HEMATOCRIT (BEAKER) (test rfqh=049) 45.0 % 40.0-50.0 MEAN CORPUSCULAR VOLUME (BEAKER) (test rqci=048) 95.7 fL 82.0-98.0 MEAN CORPUSCULAR HEMOGLOBIN (BEAKER) (test glsr=503) 33.1 pg 27.0-33.0 MEAN CORPUSCULAR HEMOGLOBIN CONC (BEAKER) (test soxv=612) 34.6 GM/DL 32.0-36.0 RED CELL DISTRIBUTION WIDTH (BEAKER) (test gpvs=225) 13.1 % 10.3-14.2 PLATELET COUNT (BEAKER) (test ypuv=436) 132 K/CU MM 150-430 MEAN PLATELET VOLUME (BEAKER) (test gnnt=197) 7.7 fL 6.5-10.5 NUCLEATED RED BLOOD CELLS (BEAKER) (test tkdp=737) 0 /100 WBC 0-0 NEUTROPHILS RELATIVE PERCENT (BEAKER) (test tflz=521) 88 % LYMPHOCYTES RELATIVE PERCENT (BEAKER) (test fmkv=578) 7 % MONOCYTES RELATIVE PERCENT (BEAKER) (test cjvn=815) 5 % EOSINOPHILS RELATIVE PERCENT (BEAKER) (test tbmd=230) 0 % BASOPHILS RELATIVE PERCENT (BEAKER) (test xrzc=390) 0 % NEUTROPHILS ABSOLUTE COUNT (BEAKER) (test gmbo=242) 13.50 K/ L 1.80-8.00 LYMPHOCYTES ABSOLUTE COUNT (BEAKER) (test kokd=097) 1.07 K/ L 1.48-4.50 MONOCYTES ABSOLUTE COUNT (BEAKER) (test crhb=233) 0.78 K/ L 0.00-1.30 EOSINOPHILS ABSOLUTE COUNT (BEAKER) (test xyus=401) 0.01 K/ L 0.00-0.50 BASOPHILS ABSOLUTE COUNT (BEAKER) (test bhez=666) 0.01 K/ L 0.00-0.20 0.00
[2018-12-19] MEDS ORDERED: AMIODARONE HCL 360MG 200 ML IV SCH (05:00)
[2018-12-19 05:48] LABS: CREATINE KINASE MB 2.8 ng/mL (0-5.0)
--- NOTE | 2018-12-19 08:00 | NUR ---
Called Dr. El Peña made, aware patient's glucose 442 and that I had covered patient with sliding scale. I also made aware patient c/o of abdominal pain received orders to give Tylenol 650mg PO.
[2018-12-19] MEDS: ACETAMINOPHEN 325 MG TAB PO PRN (08:14)
[2018-12-19] MEDS: INSULIN REGULAR, HUMAN 100 UNIT/1 ML 3ML VIAL SQ SCH ×4 (08:15→20:36)
[2018-12-19] MEDS ORDERED: LIPITOR20 MG PO (08:58)
[2018-12-19] MEDS ORDERED: TORSEMIDE20 MG PO (08:58)
[2018-12-19] MEDS ORDERED: METFORMIN HCL500 MG PO (08:58)
[2018-12-19] MEDS ORDERED: TYLENOL WITH C1 EACH PO (08:58)
[2018-12-19] MEDS ORDERED: XARELTO20 MG PO (08:58)
[2018-12-19] MEDS ORDERED: NUEDEXTA 20-101 EACH PO (08:58)
[2018-12-19] MEDS ORDERED: PANTOPRAZOLE SO40 MG PO (08:58)
[2018-12-19] MEDS ORDERED: TORSEMIDE10 MG PO (08:58)
[2018-12-19] MEDS ORDERED: CLONAZEPAM0.5 MG PO (08:58)
[2018-12-19] MEDS ORDERED: AMBIEN10 MG PO (08:58)
[2018-12-19] MEDS ORDERED: LEVEMIR100 UNIT/1 SC (08:58)
[2018-12-19] MEDS ORDERED: LISINOPRIL2.5 MG PO (08:58)
[2018-12-19] MEDS ORDERED: COREG12.5 MG PO (08:58)
[2018-12-19] MEDS ORDERED: FAMOTIDINE 20 MG/2 ML VIAL IV SCH (09:00)
--- NOTE | 2018-12-19 10:00 | NUR ---
Patient placed himself on the floor, reported he put himself on the floor because his abdominal pain was unrelieved with the Tylenol.
[2018-12-19] MEDS: METRONIDAZOLE 500 MG TAB PO SCH ×3 (11:09→19:34)
[2018-12-19] MEDS: LEVOFLOXACIN 500 MG TAB PO SCH (11:09)
[2018-12-19] MEDS ORDERED: FUROSEMIDE INJ 10 MG/ML 4 ML VIAL IV SCH ×3 (11:18→17:00)
[2018-12-19] MEDS: FUROSEMIDE INJ 10 MG/ML 4 ML VIAL IV SCH ×2 (11:20→20:36)
[2018-12-19] MEDS: METOPROLOL SUCCINATE 25 MG TAB XL PO SCH (11:23)
[2018-12-19] MEDS: CARVEDILOL 12.5 MG TAB PO SCH ×2 (11:24→20:36)
[2018-12-19 15:06] LABS: CREATINE KINASE MB 4.3 ng/mL (0-5.0)
--- NOTE | 2018-12-19 15:58 | NUR ---
Nutrition Screen Note RD Recommendation for Physician: - Rec adding low sodium to ADA 1800 diet as medically appropriate Plan of Care: RD following, monitoring for tolerance and adequacy Nutrition reason for involvement: Nutrition Risk Trigger MST Primary Diagnose(s): Afib, chest pain PMH: CHF, Diabetes mellitus Ht: 67in Wt: 240lb BMI: 37.6kg/m2 IBW: 148lb +/- 10% RD Assessment: (12/19) Chart reviewed. Labs and meds reviewed. 53yo M, who was admitted for chest pain and Afib. Visited pt in the room. Pt complained of some abdominal discomfort due to hx of diverticulosis. Pt denied any nausea or vomiting. Pt denied any chewing or swallowing difficulty. BG was running ~300-400; Per RN, pt was constantly asking for fruit juices this AM. Pt has attempted to cut down on fluids and juices intake in the past but was unsuccessful. Pt refused any diet education during my time of visit. Will continue to monitor and follow. Current Diet: ADA 1800 Malnutrition Evaluation (12/19/2018) The patient does not meet criteria for a specified degree of malnutrition at this time. Will re-evaluate at follow-up as appropriate. Energy intake: Adequate PO intake reported Weight loss: No weight loss reported Fat loss: No loss Muscle loss: No loss Supporting Evidence: Fluid accumulation: fluid overload on lasix Functional Status: no changes Diet Education Needs Assessment: Diet education indicated, pt was not interested. Pt received prior diet education regarding CHF and DM but was not compliant with diet restrictions. Nutrition Care Level: low Signed: Syeda Tan, MS, RD, LD
--- NOTE | 2018-12-19 16:11 | History and Physical ---
PRIMARY CARE PHYSICIAN: [facility]. CHIEF COMPLAINT: Chest pain, rapid heartbeat, shortness of breath, and abdominal pain. HISTORY OF PRESENT ILLNESS: The patient is a 53-year-old male, disabled, schizophrenic, who lives at [facility]. The patient has multiple medical problems including atrial fibrillation and hypertension. The patient came in with increasing heart rate, rapid heart beat, and also abdominal pain. His heart rate was in the 130 to 140, atrial fibrillation. The patient has also complained of abdominal pain. He does have some diarrhea. The patient is otherwise stable at this time. He did not have any shortness of breath unless he increase his exertion. The patient is otherwise stable. PAST MEDICAL HISTORY: Hypertension, diabetes type 2, atrial fibrillation, hypothyroidism, anxiety disorder, depression, schizophrenia, and reflux. PAST SURGICAL HISTORY: Left knee surgery and tonsillectomy. SOCIAL HISTORY: The patient is disabled with his schizophrenia and he lives at [facility]. His mother, per patient is his advocate. ALLERGIES: NO KNOWN ALLERGIES. HOME MEDICATIONS: List will be reviewed and Reconciled. PHYSICAL EXAMINATION: VITAL SIGNS: Temperature is 98, blood pressure 125/99, pulse rate is 110 to 130, atrial fibrillation, rapid rate, and saturation 97% on room air. GENERAL: The patient is not in acute distress. He is little anxious. HEENT: Normocephalic and atraumatic. Pupils reactive. Anicteric. NECK: Supple grossly. PULMONARY: Diminished breath sounds. CARDIOVASCULAR: Tachycardia with atrial fibrillation. ABDOMEN: Soft, obese. Generalized discomfort, but no rebound or guarding. EXTREMITIES: No cyanosis or edema. NEUROLOGIC: No gross focal deficit. Moving all extremities. LABORATORY DATA: Sodium is 134, potassium 4.8, chloride 99, bicarb 25, BUN 21, creatinine 1.4, and glucose 273. WBC 12.5, hemoglobin 14.7, hematocrit 44, and platelets is 272. IMAGING DATA: Abdominal and pelvic CT scan showed no definitive acute finding. He has a small right and left pleural effusion. IMPRESSION: 1. Atrial fibrillation with rapid ventricular response. 2. Bilateral pleural effusion secondary to possible early congestive heart failure. Echocardiogram still pending. 3. Baseline schizophrenia and disabled. 4. Baseline multiple medical problem as mentioned above. PLAN: 1. Resume home medication. 2. Antibiotics. 3. Echocardiogram. 4. Consultation with Dr. De Leon, Cardiology. 5. Rate control. 6. We will check for the patient's electrolyte and repeated blood work. MD EBENEZER Wise/IVÁN /[id number]
[2018-12-19] MEDS: RIVAROXABAN 20 MG TABLET PO SCH (16:44)
--- NOTE | 2018-12-19 16:52 | Consultation ---
DATE OF CONSULTATION: 12/19/2018 Cardiology Consultation CONSULTING PHYSICIAN: Dr. Troy Baron, Interventional Cardiology. REASON FOR CONSULTATION: Atrial fibrillation, shortness of breath, atypical chest pain. HISTORY OF PRESENT ILLNESS: Mr. Larson is a pleasant 53-year-old man with a history of morbid obesity, schizophrenia, chronic kidney disease, diverticulosis, chronic heart failure, reported as systolic with reportedly no significant obstructive CAD requiring interventions per the patient's report, follows us for this and atrial fibrillation with Dr. Gonzalez in [facility]. He presents with complaints of watery stools, yellow to green in color, increased in frequency and associated with abdominal distention and discomfort. He also reported some episodes of mild shortness of breath and short-lived episodes of fleeting chest pain, unaffected by exertion occurring in the setting of atrial fibrillation. He denies any syncope or lightheadedness, but does complain of palpitations associated with it. He is currently lying down on the floor as he states he feels better like this and he repetitively requests amiodarone IV drip that was initiated in the ER, they discontinued as he only wants to take p.o. medications. repetitive request by the patient. We explained to him the plan of care including the potential benefits of amiodarone therapy. Understanding this, he still would like to have this discontinued. REVIEW OF SYSTEMS: A 12-system review negative except for as noted above. PAST MEDICAL HISTORY: Atrial fibrillation, chronic heart failure, reported as systolic, pending confirmation, dyslipidemia, hypertension, schizophrenia, morbid obesity, and diverticulosis. SOCIAL HISTORY: Denies active smoking, alcohol, or drugs. FAMILY HISTORY: Noncontributory. PHYSICAL EXAMINATION: VITAL SIGNS: Temperature 96.8, heart rate 112, blood pressure 125/99, respiratory rate 28, O2 saturation 97%, BMI . GENERAL: In no acute distress, alert, active. NECK: No JVD or carotid bruit. CHEST: Clear to auscultation bilaterally. CARDIOVASCULAR: Irregularly irregular rate and rhythm, normal S1 and S2, no S3 or S4. Systolic ejection murmur 1/6. ABDOMEN: Soft, nontender, distended. No rebound, no guarding. Bowel sounds positive. EXTREMITIES: No cyanosis, clubbing, or edema. Warm distal extremities. MEDICATIONS: Reviewed. On IV amiodarone drip. Home medications evaluated, include Xarelto, beta-sandy, DIAMANTE inhibitor. Telemetry; noted to have atrial fibrillation with rapid ventricular response. EKG reviewed, atrial fibrillation with rapid ventricular response and poor R-wave progression in precordial leads. Studies reviewed. BNP 540. Troponin I negative x2. Sodium 134, potassium 4.8, chloride 99, bicarbonate 25, BUN 21, creatinine 1.44, glucose 273. White blood cells 12.5, hemoglobin 14.7, platelets 272. INR 1.1, PTT 15.1, PTT 31.2. AST 29, ALT 17, alkaline phosphatase 137, total bilirubin 1.4. Point of contact, Zachary, phone #[phone]. ASSESSMENT: A 53-year-old man with schizophrenia, known atrial fibrillation, known morbid obesity, chronic heart failure reported as systolic, presents with episodes of fleeting chest pain, shortness of breath in the setting of atrial fibrillation and associated diarrhea and abdominal distention. RECOMMENDATIONS: 1. Further workup for abdominal discomfort. 2. If no plans for procedures, please resume Xarelto at home dose 20 mg daily. 3. Discontinue amiodarone at the patient's request. 4. Resume beta-sandy therapy and DIAMANTE inhibitor. 5. Given pulmonary congestion concerning for acute decompensation of chronic heart failure, initiate Lasix 40 mg IV b.i.d. and assess response. The patient had elevated BNP. 6. Echocardiogram has been ordered. I thank Dr. Peña for the opportunity to participate in the care of Mr. Larson. Please feel free to call with any questions. Troy Baron MD AFV/MODL /[id number]
[2018-12-19] MEDS ORDERED: APIXABAN 5 MG TABLET PO SCH (17:00)
--- NOTE | 2018-12-19 18:13 | NUR ---
patient disconnected himself off telemetry with informing staff, and is laying on sofa and states "he does not wanna get in bed", because his stomach hurts"
--- NOTE | 2018-12-19 18:55 | NUR ---
Walking rounds done and report received. Patient in recliner, asked to get in bed to take vitals and place environmental monitoring specialist, agreeable at this time. Pt is awake, alertx2-3 but is noted to talk to self. He was instructed to call for assistance prior to disconnecting monitors. Patient hesitant states"i need to use the restroom often" Call fournier within reach.
[2018-12-19] MEDS ORDERED: NON-FORMULARY MEDICATION (Insulin Detemir (Levemir) 20 UNITS) SC SCH (19:45)
--- NOTE | 2018-12-19 19:56 | NUR ---
Dr. Peña called regarding BS 397 and patient uses C-Pap at home for sleep and order is needed. Awaiting call back
[2018-12-19] MEDS ORDERED: INSULIN GLARGINE 100 UNITS/ML VIAL SQ SCH ×2 (20:15→21:00)
[2018-12-19] MEDS: ZOLPIDEM TARTRATE 10 MG TAB PO SCH (20:36)
[2018-12-19] MEDS: CLONAZEPAM 0.5 MG TAB PO SCH (20:36)
[2018-12-19] MEDS: PANTOPRAZOLE SOD 40 MG TABEC PO SCH (20:36)
[2018-12-19] MEDS ORDERED: ATORVASTATIN 20 MG TAB PO SCH (21:00)
[2018-12-19] MEDS ORDERED: ATORVASTATIN 40 MG TAB PO SCH (21:00)
[2018-12-20] VITALS (7 sets, daily range): BP systolic 91–127; BP diastolic 50–95
--- NOTE | 2018-12-20 | NUR ---
Patient refusing to have vitals taken and removed telemonitor without notifying RN. He states,"I want to sleep"
[2018-12-20] MEDS: ACETAMINOPHEN 325 MG TAB PO PRN (02:33)
[2018-12-20] MEDS: METRONIDAZOLE 500 MG TAB PO SCH ×3 (03:48→18:00)
[2018-12-20 05:32] LABS: BASOPHILS % 0.3 % (0.0-1.0); EOSINOPHILS # (AUTO) 0.1 (0.0-0.4); EOSINOPHILS % 0.4 % (0.0-6.0); HEMATOCRIT 38.3 % (38.2-49.6); HEMOGLOBIN 12.9 g/dL (14.0-18.0); LYMPHOCYTES # (AUTO) 1.1 (1.0-3.2); LYMPHOCYTES % 8.4 % (18.0-39.1); MEAN CORPUSCULAR HEMOGLOBIN 28.7 pg (28-32); MEAN CORPUSCULAR HGB CONC 33.7 g/dL (31-35); MEAN CORPUSCULAR VOLUME 85.3 fL (81-99); NEUTROPHILS # (AUTO) 10.5 (2.1-6.9); NEUTROPHILS % 82.3 % (38.7-80.0); PLATELET COUNT 177 x10e3/uL (140-360); RED BLOOD COUNT 4.49 x10e6/uL (4.3-5.7); RED CELL DISTRIBUTION WIDTH 13.8 % (11.7-14.4)
[2018-12-20 05:50] LABS: ALBUMIN 3.3 g/dL (3.5-5.0); ALBUMIN/GLOBULIN RATIO 1.1 (0.8-2.0); ANION GAP 12.5 mmol/L (8-16); CREATININE, SERUM 1.73 mg/dL (0.72-1.25); POTASSIUM 3.5 mmol/L (3.5-5.1)
[2018-12-20 06:18] LABS: MAGNESIUM 1.9 MG/DL (1.3-2.1); PHOSPHORUS 3.4 MG/DL (2.3-4.7)
--- NOTE | 2018-12-20 07:10 | NUR ---
Walking rounds and report given. call fournier within reach.
[2018-12-20] MEDS: INSULIN REGULAR, HUMAN 100 UNIT/1 ML 3ML VIAL SQ SCH ×4 (07:30→20:12)
[2018-12-20] MEDS ORDERED: METFORMIN HCL 500 MG TAB PO SCH (08:00)
--- NOTE | 2018-12-20 08:13 | NUR ---
patient will not remain connected to telemetry, states "he does not want to put it on right now"
[2018-12-20] MEDS ORDERED: LISINOPRIL 2.5 MG TAB PO SCH (09:00)
[2018-12-20] MEDS: LEVOFLOXACIN 500 MG TAB PO SCH (09:25)
[2018-12-20] MEDS: FUROSEMIDE INJ 10 MG/ML 4 ML VIAL IV SCH (09:25)
[2018-12-20] MEDS: METOPROLOL SUCCINATE 25 MG TAB XL PO SCH (09:26)
[2018-12-20] MEDS: INSULIN GLARGINE 100 UNITS/ML VIAL SQ SCH ×2 (09:31→20:12)
[2018-12-20] MEDS: CARVEDILOL 12.5 MG TAB PO SCH ×2 (09:32→20:13)
--- NOTE | 2018-12-20 11:50 | NUR ---
patient agreeded with being on portable telemetry, and then after 30 minutes removed telemetry and threw it on the floor, states "he doesnt want to wear it because it shocks him", dr joe informed of pateints refusal to wear telemetry, no new orders
[2018-12-20] MEDS: RIVAROXABAN 20 MG TABLET PO SCH (16:15)
[2018-12-20] MEDS: ACETAMINOPHEN/CODEINE 300MG - 30MG TAB PO PRN (19:23)
--- NOTE | 2018-12-20 19:47 | NUR ---
PATIENT REFUSES TO WEAR TELEMETRY AND DR RUBI STATES TO NOTATE THAT PATIENT REFUSES INSTEAD OF D/C TELE. PATIENT ALSO NON COMPLIANT WITH NC FOR O2.
[2018-12-20] MEDS: PANTOPRAZOLE SOD 40 MG TABEC PO SCH (20:13)
[2018-12-20] MEDS: ZOLPIDEM TARTRATE 10 MG TAB PO SCH (20:13)
[2018-12-20] MEDS: CLONAZEPAM 0.5 MG TAB PO SCH (20:13)
--- NOTE | 2018-12-20 22:32 | Progress Note ---
DATE: 12/20/2018 Cardiology Progress Note SUBJECTIVE: Denies any chest pain, stable shortness of breath. Feels fatigued and tired with continued diarrhea. No abdominal discomfort today. OBJECTIVE: VITAL SIGNS: Temperature 97.7, heart rate 85, respiratory rate 127/88, O2 saturation 95%, respiratory rate 22, BMI 37.5. GENERAL: In no acute distress, alert. NECK: No JVD. CHEST: Clear to auscultation. CARDIOVASCULAR: Irregularly irregular rate and rhythm. Normal S1 and S2. No S3 or S4. ABDOMEN: Soft. Bowel sounds positive, distended. No rebound or guarding. EXTREMITIES: Trace edema. CARDIOVASCULAR MEDICATIONS: Reviewed. 1. Atorvastatin 40 mg at bedtime. 2. Carvedilol 37.5 mg every 12 hours. 3. Was on metoprolol, which was discontinued to maintain single beta-sandy. 4. Lisinopril was discontinued, given worsening creatinine. 5. Furosemide 40 mg IV b.i.d., will be switched to p.o. 6. Xarelto 20 mg daily. STUDIES: Reviewed. Sodium 137, potassium 3.5, chloride 98, bicarbonate 30. BUN 35, creatinine 1.7, glucose 100. White blood cells 12.8, hemoglobin 12.9, platelets 177. INR 1.1. Serial cardiac enzymes, troponin negative x3. AST 535, ALT 894, alkaline phosphatase 131. ASSESSMENT: 1. Abnormal LFTs in the setting of abdominal discomfort pending further evaluation. 2. Wlbut-tu-ggjuhwi systolic heart failure. 3. Atrial fibrillation. 4. Acute kidney injury on chronic kidney disease. 5. Morbid obesity. 6. History of atrial fibrillation. RECOMMENDATIONS: 1. Discontinue atorvastatin, given abnormal LFTs and further workup advised. 2. Okay to hold DIAMANTE inhibitor, given worsening renal function, monitor. 3. Transition IV to p.o. diuretics for now as the patient seems to be euvolemic. 4. Continue rate control strategy for atrial fibrillation. 5. The patient is on Xarelto, which is his home anticoagulation. If any plans for procedures, can hold his medication. Troy Baron MD AFV/MODL /[id number]
[2018-12-21] VITALS (7 sets, daily range): BP systolic 106–130; BP diastolic 80–96
[2018-12-21] MEDS: METRONIDAZOLE 500 MG TAB PO SCH ×3 (05:09→21:27)
[2018-12-21 06:03] LABS: BASOPHILS % 0.4 % (0.0-1.0); EOSINOPHILS # (AUTO) 0.1 (0.0-0.4); EOSINOPHILS % 0.8 % (0.0-6.0); HEMATOCRIT 38.3 % (38.2-49.6); HEMOGLOBIN 12.8 g/dL (14.0-18.0); LYMPHOCYTES # (AUTO) 0.9 (1.0-3.2); LYMPHOCYTES % 7.9 % (18.0-39.1); MEAN CORPUSCULAR HEMOGLOBIN 28.6 pg (28-32); MEAN CORPUSCULAR HGB CONC 33.4 g/dL (31-35); MEAN CORPUSCULAR VOLUME 85.5 fL (81-99); MONOCYTES # (AUTO) 0.9 (0.2-0.8); NEUTROPHILS # (AUTO) 8.9 (2.1-6.9); NEUTROPHILS % 82.3 % (38.7-80.0); PLATELET COUNT 165 x10e3/uL (140-360); RED BLOOD COUNT 4.48 x10e6/uL (4.3-5.7); RED CELL DISTRIBUTION WIDTH 13.7 % (11.7-14.4)
[2018-12-21 06:39] LABS: ALBUMIN 3.2 g/dL (3.5-5.0); ALBUMIN/GLOBULIN RATIO 1.1 (0.8-2.0); ANION GAP 12.6 mmol/L (8-16); CALCIUM 8.5 mg/dL (8.4-10.2); CREATININE, SERUM 1.46 mg/dL (0.72-1.25); POTASSIUM 3.6 mmol/L (3.5-5.1)
[2018-12-21] MEDS: INSULIN REGULAR, HUMAN 100 UNIT/1 ML 3ML VIAL SQ SCH ×4 (09:12→21:27)
[2018-12-21] MEDS: LEVOFLOXACIN 500 MG TAB PO SCH (10:17)
[2018-12-21] MEDS: CARVEDILOL 12.5 MG TAB PO SCH ×2 (10:17→21:26)
[2018-12-21] MEDS: FUROSEMIDE 40 MG TAB PO SCH (10:17)
[2018-12-21] MEDS: INSULIN GLARGINE 100 UNITS/ML VIAL SQ SCH ×2 (10:18→21:27)
--- NOTE | 2018-12-21 10:59 | Diagnostic Imaging Report ---
Abdominal ultrasound. History: Abnormal LFTs. Comparison: CT abdomen 12/18/2018. Discussion: Transverse and longitudinal images of the abdomen were obtained demonstrating a liver of normal size but increased echogenicity measuring 16.8 cm in length. There is no focal hepatic abnormality. The portal vein is patent with hepatopetal flow and is within normal limits measuring 8 mm in diameter. The biliary tree is within normal limits with the common bile duct measuring 2 mm in diameter. The gallbladder is normal without evidence of stones, wall thickening, or pericholecystic fluid. The sonographic Tinoco's sign was negative. The kidneys are normal in size and echogenicity bilaterally without evidence of hydronephrosis, stones, or mass. The right kidney measures 12.3 cm and the left kidney measures 12.6 cm in length. The spleen is normal in size and appearance measuring 10.5 cm in length. The pancreatic head and body are visualized and are normal in appearance. The abdominal aorta and IVC are within normal limits. There is no evidence of free fluid. IMPRESSION: Mild fatty infiltration of the liver without focal hepatic abnormality. Otherwise unremarkable abdominal ultrasound. There is no evidence of cholelithiasis. Signed by: Jose Wong on 12/21/2018 10:56 AM
[2018-12-21] MEDS ORDERED: ONDANSETRON HCL 4 MG ORAL DISINTEGRATING TAB PO PRN (12:00)
[2018-12-21] MEDS ORDERED: CLONAZEPAM 0.5 MG TAB PO PRN (14:00)
[2018-12-21] MEDS ORDERED: ARIPIPRAZOLE 2 MG TABLET PO PRN (14:15)
--- NOTE | 2018-12-21 17:22 | Progress Note ---
DATE: 12/21/2018 Cardiology Progress Note SUBJECTIVE: No complaints. Denies chest pain or shortness of breath today. Continues to feel tired. OBJECTIVE: VITAL SIGNS: Temperature 98.8, heart rate 92, blood pressure 112/80, respiratory rate 20, and O2 saturation 100%. GENERAL: No acute distress. Alert. NECK: No JVD. CHEST: Clear to auscultation. CARDIOVASCULAR: Irregularly irregular rate and rhythm. Normal S1, S2. ABDOMEN: Soft, nontender. EXTREMITIES: No edema. CARDIOVASCULAR MEDICATION: Reviewed. Furosemide 40 mg IV daily, Xarelto 20 mg daily, carvedilol 37.5 mg every 12 hours. STUDIES: Reviewed. Sodium 134, potassium 3.6, chloride at 97, bicarbonate 28, BUN 26, creatinine 1.4, glucose 279. White blood cells 10.8, hemoglobin 12.8, and platelets 165. INR 1.1. AST 643, ALT 1170, total bilirubin 1. Alkaline phosphatase 131. ASSESSMENT: 1. A 53-year-old man, presents with abdominal discomfort and diarrhea, noted to have significant elevation in transaminases; workup advised. 2. Renal function abnormal, chronic kidney disease with possible component of resolving acute kidney injury. 3. Anemia. 4. Leukocytosis. 5. Chronic atrial fibrillation. 6. Ngpqm-ak-hljmgdh severe systolic heart failure, known diagnosis. 7. Schizophrenia. 8. Morbid obesity. RECOMMENDATION: 1. Continue current cardiovascular medications, however, as needed if any procedure planned can hold Xarelto. 2. Approaching euvolemic state on exam, continue diuretic at current dose. 3. LFTs, abnormal, workup advised. MD PERCY Dias/IVÁN /[id number]
[2018-12-21] MEDS: RIVAROXABAN 20 MG TABLET PO SCH (17:53)
--- NOTE | 2018-12-21 19:15 | NUR ---
Report received from BRENDON Mayes. Walking round done. Patient was not in the room. Patient was in property preservation specialist. Notified to Charge nurse Natty at this time.
--- NOTE | 2018-12-21 20:15 | NUR ---
Patient in powder core tester. Patient assessment and vital signs completed in powder core tester, patient tolerated well. Patient stated that "I would like to stay here thirty more minutes then I will be in my room". Will continue to monitor.
--- NOTE | 2018-12-21 21:05 | NUR ---
Patient came back in his room at this time. Patient took his all medicines as order without any issued. Patient refused surveillance system monitor. Will continue to monitor.
[2018-12-21] MEDS: ZOLPIDEM TARTRATE 10 MG TAB PO SCH (21:26)
[2018-12-21] MEDS: PANTOPRAZOLE SOD 40 MG TABEC PO SCH (21:26)
[2018-12-21] MEDS: CLONAZEPAM 0.5 MG TAB PO SCH (21:26)
--- NOTE | 2018-12-21 22:13 | Consultation ---
DATE OF CONSULTATION: 12/21/2018 Psychiatric Consultation REASON FOR CONSULTATION: To evaluate the patient's psychosis. HISTORY OF PRESENT ILLNESS: The patient is a 53 years old male, admitted to the hospital for atrial fibrillation and chest pain. Psychiatric consultation is called to evaluate the patient's mood and psychosis. As per medical record, the patient has atrial fibrillation, bilateral pleural effusion, schizophrenia, diabetes, anxiety, depression, hypothyroidism, hypertension, reflux. Upon evaluation today, the patient is found to be in the room. The patient is alert, awake, and oriented to situation. He is calm and cooperative at this time. He denies any depression or anxiety. He denies any hallucination. He denies any suicidal or homicidal ideation. He reports sleeping and eating are okay. The patient claims that he has history of schizoaffective disorder for 19 years and has been taking Geodon. He sees a psychiatrist, outpatient. He claims that pain was initially started due to hearing waves at night time. He denies any hallucinations at this time. As per nursing staff, the patient has been uncooperative, refusing to put on telemetry, and noncompliance with oxygen at times. He sometimes put himself on the floor. He is difficult to be redirected. PAST PSYCHIATRIC HISTORY: The patient reports history of schizoaffective disorder, depression, and anxiety for 19 years. He denies past suicide attempts. SOCIAL HISTORY: He denies alcohol or drug use. FAMILY HISTORY: Denies. SOCIAL HISTORY: The patient lives in a fdc, [facility]. MENTAL STATUS EXAM: The patient is a middle-aged male. He is alert, awake, and oriented to situation. His mood is fair. He denies any suicidal or homicidal ideation. Affect is congruent with mood. Psychomotor state is passive. Insight and judgment are limited. Thought process is concrete to simple. Thought content is no delusion elicited. CURRENT MEDICATIONS: 1. Klonopin 0.5 at bedtime. 2. Insulin. 3. Lasix. 4. Coreg. 5. Levaquin. 6. Flagyl. 7. Ambien 10 mg p.o. at bedtime. 8. Protonix. 9. Xarelto. 10. Tylenol #3. 11. Acetaminophen. 12. Zofran. 13. Dextrose. CURRENT LABS: WBC 10.84, RBC 4.48, hemoglobin 12.8, hematocrit 38.3, platelets 165. Sodium 134, potassium 3.6, chloride 97. BUN 26, creatinine 1.46. AST 643, ALT 1170. ASSESSMENT: Schizoaffective disorder, bipolar type. PLAN: Plan is to continue with: 1. Ambien 10 mg p.o. at bedtime. 2. Continue Klonopin 0.5 mg p.o. at bedtime. 3. Add Abilify 2 mg p.o. q.6 hours p.r.n. 4. Add Ativan 0.5 mg p.o. q.6 hours p.r.n. 5. Add Abilify 2 mg p.o. daily. 6. Add Abilify 2 mg p.o. q.6 hours p.r.n. agitation. 7. Add Haldol 1 mg IM q.6 hours p.r.n. for severe agitation. 8. Monitor for aggression and mood. Thank you for this consultation. Discussed with the nursing staff. Dictated by Stephanie Varela PA-C Iris Adame MD QTV/MODL /[id number]
[2018-12-22] VITALS (8 sets, daily range): BP systolic 92–154; BP diastolic 62–88
[2018-12-22] MEDS: LORAZEPAM 0.5 MG TAB PO PRN (00:12)
--- NOTE | 2018-12-22 02:09 | Consultation ---
DATE OF CONSULTATION: 12/21/2018 GI consult note. REASON FOR CONSULT: Abnormal liver enzymes. HISTORY OF PRESENTING ILLNESS: A 53 years white male with a history of schizophrenia. I do not get any good history from the patient. He is very evasive. He starts from one complaint and totally he goes to other complaint, which are not at all interrelated. I am being consulted to evaluate acute elevation in liver enzymes. He has a history of atrial fibrillation, on Xarelto. He also has type 2 diabetes, hypertension, hypothyroidism. He got admitted with chest pain and rapid heartbeat as well as palpitation. The patient was noted to be in rapid ventricular response. Initial blood work on admission on 12/18/2018, showed normal liver enzymes. However, the liver enzymes jumped up significantly yesterday. The patient reported no abdominal pain. AST went to 643 from 29, ALT 1170 from 17, alkaline phosphatase 137 to 131, total bilirubin 1.4 to 1.0. Ultrasound of the abdomen showed fatty liver, no gallstones, no biliary ductal dilation. GI has been consulted for further evaluation and recommendation. REVIEW OF SYSTEMS: Twelve point system reviewed, symptomatology is limited as per HPI. PAST MEDICAL HISTORY: Congestive heart failure, atrial fibrillation, dyslipidemia, hypertension, schizophrenia, obesity, colonic diverticulosis, and type 2 diabetes. PAST SURGICAL HISTORY: Noncontributory. FAMILY HISTORY: Negative for any GI or INTERNAL GRINDER TENDER malignancies. SOCIAL HISTORY: Mentally disabled from schizophrenia. He lives in [facility]. No smoking, alcohol, or any illicit drug use. ALLERGIES: NONE. HOME MEDICATION: Tylenol No. 3, atorvastatin, carvedilol, clonazepam, insulin detemir, lisinopril, metformin, pantoprazole, Xarelto, torsemide, and zolpidem. INPATIENT MEDICATIONS: List reviewed as per MAY. PHYSICAL EXAMINATION: VITAL SIGNS: Temperature 99.3, pulse 99, respirations 20, blood pressure 110/82, and oxygen saturation 100% on room air. GENERAL: Not in any acute distress. HEENT: Oral mucosa is moist. Anicteric sclerae. CARDIOVASCULAR SYSTEM: S1, S2. Irregularly irregular with a 3/6 flow murmur at the apex. LUNGS: Bilaterally grossly clear. ABDOMEN: Protuberant belly and nontender. No palpable mass or hernia. Positive bowel sounds. EXTREMITIES: Warm. No leg edema. LABORATORY DATA: Sodium 137, potassium 3.5, chloride 98, bicarb 30, BUN 35, creatinine 1.73, and glucose 20. Liver enzymes showed a total bilirubin 1.0, AST 643, ALT 1170, alkaline phosphatase 137. WBC 10.84, hemoglobin 12.8, hematocrit 38.3, MCV 85.5, and platelet count 165. PT 15.1 and INR 1.13. Ultrasound of the abdomen showed mild fatty infiltration of the liver without focal hepatic abnormality. No gallstones. Biliary tree within normal limits with common bile duct measuring about 2 mm in diameter. IMPRESSION: Acutely abnormal liver enzymes with aminotransferases in 1000 in the patient with the setting of atrial fibrillation, rapid ventricular response. This might have resulted into hypotension, low blood flow to the liver. As a result of that, the patient developed shock liver. On the top of that, he also has congestive heart failure. Therefore, he also has concomitant congestive hepatopathy. PLAN: Continue present medical management. Supportive care. LFTs are expected to improve with correction of underlying problem. Nothing to offer from GI standpoint at this time except keep monitoring liver enzymes. I thank, Dr. Peña, for allowing me to participate in the care of this patient. Elías Leach MD SA/IVÁN /[id number]
[2018-12-22 05:39] LABS: BASOPHILS % 0.3 % (0.0-1.0); EOSINOPHILS # (AUTO) 0.1 (0.0-0.4); EOSINOPHILS % 1.7 % (0.0-6.0); HEMATOCRIT 39.4 % (38.2-49.6); LYMPHOCYTES % 12.1 % (18.0-39.1); MEAN CORPUSCULAR HEMOGLOBIN 28.3 pg (28-32); MEAN CORPUSCULAR VOLUME 85.8 fL (81-99); MONOCYTES % 13.2 % (4.4-11.3); NEUTROPHILS # (AUTO) 5.6 (2.1-6.9); NEUTROPHILS % 71.9 % (38.7-80.0); PLATELET COUNT 165 x10e3/uL (140-360); RED BLOOD COUNT 4.59 x10e6/uL (4.3-5.7); RED CELL DISTRIBUTION WIDTH 14.1 % (11.7-14.4)
[2018-12-22 06:01] LABS: ALBUMIN 3.1 g/dL (3.5-5.0); ALBUMIN/GLOBULIN RATIO 1.1 (0.8-2.0); ANION GAP 11.4 mmol/L (8-16); CALCIUM 8.3 mg/dL (8.4-10.2); CREATININE, SERUM 1.38 mg/dL (0.72-1.25); POTASSIUM 3.4 mmol/L (3.5-5.1)
[2018-12-22] MEDS: METRONIDAZOLE 500 MG TAB PO SCH ×3 (06:15→22:00)
--- NOTE | 2018-12-22 07:08 | NUR ---
Report given to oncoming RN Beth, walking round done.
[2018-12-22] MEDS: INSULIN REGULAR, HUMAN 100 UNIT/1 ML 3ML VIAL SQ SCH ×4 (08:00→21:00)
[2018-12-22] MEDS: FUROSEMIDE 40 MG TAB PO SCH (08:27)
[2018-12-22] MEDS: ARIPIPRAZOLE 2 MG TABLET PO SCH (08:27)
[2018-12-22] MEDS: LEVOFLOXACIN 500 MG TAB PO SCH (08:27)
[2018-12-22] MEDS: CARVEDILOL 12.5 MG TAB PO SCH ×2 (08:27→20:35)
[2018-12-22] MEDS: INSULIN GLARGINE 100 UNITS/ML VIAL SQ SCH ×2 (08:28→21:00)
[2018-12-22] MEDS ORDERED: POTASSIUM CHLORIDE 20 MEQ TAB CR PO NR (12:00)
--- NOTE | 2018-12-22 13:59 | NUR ---
MD MADE AWARE OF PT REFUSAL FOR TELEMETRY, PER MD KEEP ORDER FOR TELE MONITORING
--- NOTE | 2018-12-22 15:30 | NUR ---
PT TRANSFERRED TO ROOM 207 RN TO RESUME CARE
--- NOTE | 2018-12-22 17:07 | Progress Note ---
DATE: 12/22/2018 Cardiology Progress Note SUBJECTIVE: Denies any chest pain or shortness of breath. Continues to feel fatigued. OBJECTIVE: VITAL SIGNS: Temperature 97.9, heart rate 88, blood pressure 92/64, respiratory rate 18, O2 saturation 98%, and BMI 37.5. GENERAL: In no acute distress. Alert. NECK: No JVD. CHEST: Clear to auscultation. CARDIOVASCULAR: Irregularly irregular rate and rhythm. Normal S1, S2. No S3 or S4. Systolic ejection murmur. ABDOMEN: Soft, nontender. Bowel sounds positive. EXTREMITIES: Trace edema. Warm distal extremities. SKIN: Intact and dry. Mucosa is moist. NEURO: Nonfocal. CARDIOVASCULAR MEDICATIONS: Reviewed. 1. Furosemide 40 mg daily. 2. Xarelto 20 mg daily. 3. Carvedilol 37.5 mg every 12 hours. STUDIES: Reviewed. Sodium 136, potassium 3.4, chloride 98, bicarbonate 30, BUN 20, creatinine 1.38, and glucose 258. White blood cell 7.8, hemoglobin 13, and platelets 165. INR 1.1, PT 15, and PTT 31. AST 214, ALT 946, alkaline phosphatase 140, and total bilirubin 1.1. MD PERCY Dias/IVÁN /[id number]
--- NOTE | 2018-12-22 18:02 | Progress Note ---
DATE: 12/22/2018 Cardiology Progress Note. ADDENDUM: CARDIOVASCULAR MEDICATIONS: , Xarelto 20 mg daily, carvedilol 37.5 mg every 12 hours. STUDIES: Sodium 136, potassium 3.4, chloride 98, bicarbonate 30, BUN 20, creatinine 1.38, glucose 258. White blood cell 7.8, hemoglobin 13, platelets 155. INR 1.1. AST 214, ALT 948, alkaline phosphatase 140, total bilirubin 1.1. Atrial fibrillation on tele review. ASSESSMENT: A 53-year-old man presents with abdominal discomfort, diarrhea, and abnormal LFTs. Has history of chronic atrial fibrillation with transient episode of rapid ventricular response severe, acute on chronic systolic heart failure with known cardiomyopathy for which he follows up as an outpatient at [facility] with Dr. Gonzalez. RECOMMENDATIONS: 1. Continue current cardiovascular medications. 2. Appreciate GI input. 3. Upon discharge, advised patient on followup with his table games dealer. MD PERCY Dias/IVÁN /[id number]
[2018-12-22] MEDS: RIVAROXABAN 20 MG TABLET PO SCH (18:14)
--- NOTE | 2018-12-22 19:20 | NUR ---
Patient received lying in bed. AAO x 3. Patient had no complaints of pain. No signs of respiratory distress. Fall precautions implemented. Patient has telemetry box in the room but refuses to put in on because it feels uncomfortable, Patient instructed on the importance of telemetry monitoring, but still declined. Patient instructed to call for assistance when needed. Call light within reach.
[2018-12-22] MEDS: CLONAZEPAM 0.5 MG TAB PO SCH (20:35)
[2018-12-22] MEDS: ZOLPIDEM TARTRATE 10 MG TAB PO SCH (20:35)
[2018-12-22] MEDS: PANTOPRAZOLE SOD 40 MG TABEC PO SCH (20:35)
[2018-12-23] VITALS (7 sets, daily range): BP systolic 95–146; BP diastolic 75–100
[2018-12-23] MEDS: METRONIDAZOLE 500 MG TAB PO SCH ×3 (05:42→22:00)
--- NOTE | 2018-12-23 07:10 | NUR ---
Shift report given to oncoming nurse.
[2018-12-23] MEDS: INSULIN REGULAR, HUMAN 100 UNIT/1 ML 3ML VIAL SQ SCH ×4 (07:30→21:00)
[2018-12-23] MEDS: CARVEDILOL 12.5 MG TAB PO SCH ×2 (07:58→22:17)
[2018-12-23] MEDS: ARIPIPRAZOLE 2 MG TABLET PO SCH (07:58)
[2018-12-23] MEDS: FUROSEMIDE 40 MG TAB PO SCH (07:58)
[2018-12-23] MEDS: LEVOFLOXACIN 500 MG TAB PO SCH (07:59)
[2018-12-23] MEDS: INSULIN GLARGINE 100 UNITS/ML VIAL SQ SCH ×2 (07:59→21:00)
[2018-12-23] MEDS: RIVAROXABAN 20 MG TABLET PO SCH (17:35)
--- NOTE | 2018-12-23 19:15 | NUR ---
Patient received sitting up in bed. AAO x 3. No acute distress noted. Call light within reach.
--- NOTE | 2018-12-23 20:30 | NUR ---
Patient refused blood sugar checks and Telemetry.
[2018-12-23] MEDS: PANTOPRAZOLE SOD 40 MG TABEC PO SCH (21:56)
[2018-12-23] MEDS: CLONAZEPAM 0.5 MG TAB PO SCH (21:56)
[2018-12-23] MEDS: ZOLPIDEM TARTRATE 10 MG TAB PO SCH (21:56)
[2018-12-24] VITALS (8 sets, daily range): BP systolic 107–139; BP diastolic 81–112
[2018-12-24] MEDS: ACETAMINOPHEN/CODEINE 300MG - 30MG TAB PO PRN (00:10)
--- NOTE | 2018-12-24 02:38 | NUR ---
Patient refused IV on left and right hand to be flushed. Reason: Discomfort.
[2018-12-24] MEDS: ACETAMINOPHEN 325 MG TAB PO PRN (02:51)
[2018-12-24] MEDS: HALOPERIDOL LACTATE 5 MG/ML VIAL IM PRN ×2 (03:01→20:50)
--- NOTE | 2018-12-24 03:02 | NUR ---
Patient restless, agitated, throwing his gown/sheets on the floor. Haldol 1 mg administered. Will continue to monitor patient.
[2018-12-24 06:00] LABS: BASOPHILS % 0.3 % (0.0-1.0); EOSINOPHILS # (AUTO) 0.2 (0.0-0.4); EOSINOPHILS % 1.8 % (0.0-6.0); HEMATOCRIT 40.3 % (38.2-49.6); HEMOGLOBIN 13.2 g/dL (14.0-18.0); LYMPHOCYTES # (AUTO) 1.1 (1.0-3.2); LYMPHOCYTES % 12.6 % (18.0-39.1); MEAN CORPUSCULAR HEMOGLOBIN 28.3 pg (28-32); MEAN CORPUSCULAR HGB CONC 32.8 g/dL (31-35); MEAN CORPUSCULAR VOLUME 86.5 fL (81-99); MONOCYTES # (AUTO) 0.8 (0.2-0.8); MONOCYTES % 9.5 % (4.4-11.3); NEUTROPHILS # (AUTO) 6.5 (2.1-6.9); NEUTROPHILS % 75.1 % (38.7-80.0); PLATELET COUNT 165 x10e3/uL (140-360); RED BLOOD COUNT 4.66 x10e6/uL (4.3-5.7); RED CELL DISTRIBUTION WIDTH 14.4 % (11.7-14.4)
[2018-12-24] MEDS: METRONIDAZOLE 500 MG TAB PO SCH ×3 (06:00→22:11)
--- NOTE | 2018-12-24 07:00 | NUR ---
Walking rounds done. Shift report given to oncoming nurse.
[2018-12-24 08:13] LABS: ALANINE AMINOTRANSFERASE 432 IU/L (0-55); ALBUMIN/GLOBULIN RATIO 1.1 (0.8-2.0); ALKALINE PHOSPHATASE 124 IU/L (40-150); ANION GAP 10.8 mmol/L (8-16); BILIRUBIN,DIRECT 0.6 mg/dL (0.0-0.5); BLOOD UREA NITROGEN 17 mg/dL (7-26); BUN/CREATININE RATIO 14 (6-25); CALCIUM 8.4 mg/dL (8.4-10.2); CARBON DIOXIDE 27 mmol/L (22-29); CHLORIDE 100 mmol/L (98-107); CREATININE, SERUM 1.24 mg/dL (0.72-1.25); EST GLOMERULAR FILTRATION RATE > 60 ML/MIN (60-); GLUCOSE 249 mg/dL (74-118); POTASSIUM 3.8 mmol/L (3.5-5.1); SODIUM 134 mmol/L (136-145)
[2018-12-24] MEDS: INSULIN GLARGINE 100 UNITS/ML VIAL SQ SCH ×2 (08:20→21:00)
[2018-12-24] MEDS: INSULIN REGULAR, HUMAN 100 UNIT/1 ML 3ML VIAL SQ SCH ×4 (08:20→21:00)
[2018-12-24] MEDS: LEVOFLOXACIN 500 MG TAB PO SCH (08:20)
[2018-12-24] MEDS: FUROSEMIDE 40 MG TAB PO SCH (08:20)
[2018-12-24] MEDS: ARIPIPRAZOLE 2 MG TABLET PO SCH (08:20)
[2018-12-24] MEDS: CARVEDILOL 12.5 MG TAB PO SCH ×2 (08:20→19:56)
[2018-12-24 08:32] LABS: FERRITIN 99.63 ng/mL (21.81-274.66)
--- NOTE | 2018-12-24 11:41 | Progress Note ---
DATE: 12/24/2018 Cardiology Progress Note SUBJECTIVE: Denies any chest pain or shortness of breath. Feels fatigued. OBJECTIVE: VITAL SIGNS: Temperature 96.8, heart rate 79, blood pressure 118/86, respiratory rate 22, O2 saturation 95%. GENERAL: No acute distress, alert. NECK: No JVD. CHEST: Clear to auscultation bilaterally. CARDIOVASCULAR: Irregular rate and rhythm, normal S1, S2, normal rate. Systolic ejection murmur 1/6. No S3. No S4. ABDOMEN: Soft, nontender. Bowel sounds positive. EXTREMITIES: No edema. Warm distal extremities. CARDIOVASCULAR MEDICATIONS: Reviewed. Furosemide 40 mg daily, Xarelto 20 mg daily, carvedilol 37.5 mg every 12 hours. LABORATORY DATA: Reviewed. Sodium 134, potassium 3.8, chloride 100, bicarbonate 27, BUN 17, creatinine 1.24, glucose 249. White blood cells 8.7, hemoglobin 13.2, platelets 165. INR 1.1, PT 15, PTT 31.2. AST 26, ALT 432, alkaline phosphatase 124. ASSESSMENT: A 53-year-old man presents with atrial fibrillation, qkctr-la-jaunsjh systolic heart failure, morbid obesity, abdominal discomfort, diarrhea now resolved, and abnormal LFTs now improving. RECOMMENDATIONS: 1. Continue current cardiovascular medications. 2. Upon discharge, follow up with Dr. Gonzalez in 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 MD PERCY Dias/IVÁN /[id number]
[2018-12-24] MEDS ORDERED: vraylar PO (13:59)
[2018-12-24] MEDS ORDERED: OXTELLAR PO (13:59)
--- NOTE | 2018-12-24 14:46 | NUR ---
IMM letter delivered and explained to pt. He verbalized understanding. Signed copy placed in chart. Copy to pt.
[2018-12-24] MEDS: RIVAROXABAN 20 MG TABLET PO SCH (16:55)
[2018-12-24] MEDS: CLONAZEPAM 0.5 MG TAB PO SCH (19:56)
[2018-12-24] MEDS: ZOLPIDEM TARTRATE 10 MG TAB PO SCH (19:56)
[2018-12-24] MEDS: PANTOPRAZOLE SOD 40 MG TABEC PO SCH (19:56)
--- NOTE | 2018-12-24 19:59 | Progress Note ---
DATE: 12/24/2018 Psychiatric Progress Note SUBJECTIVE: The patient is evaluated and events noted. The patient is in the room. He is alert, awake, and oriented to situation. He is calm at this time, but he did get Haldol p.r.n. IM earlier this morning for current agitation, throwing stuff on the floor, has gownishy dress look. The patient denies any depression. Denies anxiety. Denies any hallucination. Denies any suicidal ideation. He denies any problem with sleep or appetite. He is getting medication to help with sleep and appetite. ASSESSMENT: Schizoaffective disorder, bipolar type. PLAN OF TREATMENT: 1. Continue with Ambien 10 mg p.o. at bedtime. 2. Continue Klonopin 0.5 mg p.o. at bedtime. 3. Continue Abilify p.r.n. p.o. 4. Continue Ativan p.r.n. p.o. 5. Continue with Haldol p.r.n. IM. 6. Continue with Abilify 2 mg p.o. daily. 7. Monitor for mood. 8. Supportive therapy. Dictated by Stephanie Varela PA-C MD RAMAN CamposV/IVÁN /[id number]
[2018-12-24] MEDS: LORAZEPAM 0.5 MG TAB PO PRN (20:50)
--- NOTE | 2018-12-24 23:59 | Progress Note ---
DATE: 12/24/2018 SUBJECTIVE: The patient reports no abdominal pain. Tolerating oral diet. Regular bowel movement. REVIEW OF SYSTEMS: GENERAL: No fever or chills. CVS: No chest pain, palpitation has resolved. RESPIRATORY: No cough or expectoration. MEDICATIONS: Reviewed as per MAY. PHYSICAL EXAMINATION: VITAL SIGNS: Temperature 96.6, pulse 84, respirations 19, blood pressure 116/88, oxygen saturation 100% on room air. GENERAL: Not in any acute distress. Oral mucosa is moist. Anicteric sclerae. ABDOMEN: Soft, protuberant belly, nondistended, nontender. No palpable mass or hernia. Positive bowel sounds. LABORATORY DATA: WBC 8.70, hemoglobin 13.2, hematocrit 40.3, and platelet count 165. Serum iron profile showed iron 60, TIBC 347, iron saturation 17, transferrin 248, ferritin 99.63. Sodium 134, potassium 3.8, chloride 100, bicarb 27, BUN 17, creatinine 1.24. Liver enzymes showed total bilirubin 1.2, direct bilirubin 0.6, AST has come down to 26 from 214, ALT is down to 432 from 946, alkaline phosphatase 124 from 140. IMPRESSION: Acute ischemic hepatitis, this is resolving, and liver test is almost normalizing. PLAN: Continue monitoring liver enzymes until it normalizes. Continue present medical management. I will follow him clinically. Elías Leach MD SA/IVÁN /[id number]
[2018-12-25 04:00] VITALS: BP 128/73
[2018-12-25] MEDS: METRONIDAZOLE 500 MG TAB PO SCH (06:10)
[2018-12-25] MEDS: INSULIN REGULAR, HUMAN 100 UNIT/1 ML 3ML VIAL SQ SCH ×2 (07:30→12:20)
[2018-12-25 08:00] VITALS: BP 96/72
[2018-12-25 09:10] VITALS: BP 96/72
[2018-12-25] MEDS: LEVOFLOXACIN 500 MG TAB PO SCH (09:10)
[2018-12-25] MEDS: ARIPIPRAZOLE 2 MG TABLET PO SCH (09:10)
[2018-12-25] MEDS: INSULIN GLARGINE 100 UNITS/ML VIAL SQ SCH (09:10)
[2018-12-25] MEDS: FUROSEMIDE 40 MG TAB PO SCH (11:00)
[2018-12-25] MEDS: CARVEDILOL 12.5 MG TAB PO SCH (11:00)
[2018-12-25 12:00] VITALS: BP 119/76
[2018-12-25] MEDS: LORAZEPAM 0.5 MG TAB PO PRN (12:54)
--- NOTE | 2018-12-25 13:45 | NUR ---
patient alert and oriented. discharge instructions given at this time, patient verbalized understanding. Both IVs discontinued at this time, catheters in tact and small dressing applied. patient to be wheeled out to [facility] for return to [facility].
--- NOTE | 2018-12-25 22:36 | Progress Note ---
DATE: 12/24/2018 Cardiology Progress Note SUBJECTIVE: Denies chest pain or shortness of breath. Feels fatigue. OBJECTIVE: VITAL SIGNS: Temperature 97 degrees, heart rate 95, blood pressure 119/76, respiratory rate 20, O2 saturation 98%. BMI 38. GENERAL: In no acute distress, alert. NECK: No JVD. CHEST: Clear to auscultation. CARDIOVASCULAR: Irregularly irregular rate and rhythm. Normal S1 and S2. ABDOMEN: Soft. EXTREMITIES: Trace edema. CARDIOVASCULAR MEDICATIONS: Furosemide 40 mg daily, Xarelto 20 mg daily, carvedilol 37.5 mg every 12 hours. LABORATORY DATA: Labs reviewed. Significant findings, transaminases trending down. ASSESSMENT: 1. A 53-year-old man presents with atrial fibrillation with episode of rapid ventricular response, now improved. 2. Hvjrf-dh-cuswapv severe systolic heart failure. 3. Morbid obesity. 4. Abnormal LFTs, improving. RECOMMENDATIONS: Continue current cardiovascular medications. Upon discharge, follow up with Dr. 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 MD AntonioV/NENAL /[id number]
[2018-12-26 05:25] LABS: ALPHA-1-ANTITRYPSIN 139 mg/dL (90-200)
--- NOTE | 2018-12-26 07:22 | Discharge Summary ---
[employer]: 1. Dr. Elías Leach. 2. Dr. Iris Adame. 3. Dr. Troy Baron. FINAL DIAGNOSES: 1. Acute exacerbation of atrial fibrillation with rapid ventricular rate response. Medication adjustment was made. 2. Wpjpi-xm-ynlndnd systolic dysfunction, congestive heart failure exacerbation. The patient has ICD and EF approximately 25%. 3. Congested hepatitis with increase in LFT, resolved. SUMMARY: This is a 53-year-old male with multiple medical problems including behavioral health problem, came in with lzdwx-ic-ytkbwhu systolic dysfunction, congestive heart failure with pulmonary edema. The patient with fluid overload. He also with congested hepatitis. Liver enzymes, AST as high as 643 and ALT was 1170. The patient's liver enzyme is normalizing. The patient is otherwise stable. He diuresis well. He is not short of breath anymore. He does not require oxygen. He is saturating well. Adjustment of his medication is made. The patient will go home today. He will stop the Demadex and start on Lasix 40 mg twice a day and potassium 20 mEq daily. The patient will resume his other home medication. We will discontinue lisinopril due to blood pressure and also renal insufficiency. The patient is otherwise stable. He will resume on his psychiatric medication. The patient is stable, discharged back to assisted living today. MD EBENEZER Wise/IVÁN /[id number]
== END 2018-12-25 13:55 | DRG 308 ==
LOC: ER 21:04 → ERHOLD 12-19 01:01 → IMCU 12-19 01:26 → MED/SURG2 12-22 15:36
PROVIDERS: ADMIT Internal Medicine; ATTEND Internal Medicine
DX: I48.91 Unspecified atrial fibrillation (principal); I50.23 Acute on chronic systolic (congestive) heart failure; J90 Pleural effusion, not elsewhere classified; N17.9 Acute kidney failure, unspecified; F20.9 Schizophrenia, unspecified; N18.9 Chronic kidney disease, unspecified
CPT/HCPCS: 36415; 71045; 74176; 76700; 80053; 80061; 81001; 82103; 82150; 82248; 82550; 82553; 82728; 82947; 82948; 83540; 83690; 83735; 83880; 84100; 84443; 84466; 84484; 85025; 85610; 85730; 86644; 86645; 86663; 86664; 86665; 93005; 93306; 93880; 94660; 96372; 99284; J1630; J1815; J1817; J1940; J2405

== ENCOUNTER 2019-01-12 18:21 | Emergency (ER) | payer MEDICARE, OTHER ==
[~2019-01-12] VITALS: Ht 170.2 cm; Wt 110.2 kg
[~2019-01-12 18:21] MED LIST: AMBIEN10 MG PO; CLONAZEPAM0.5 MG PO; COREG12.5 MG PO; LEVEMIR100 UNIT/1 SC; LIPITOR20 MG PO; LISINOPRIL2.5 MG PO; METFORMIN HCL500 MG PO; NUEDEXTA 20-101 EACH PO; OXTELLAR PO; PANTOPRAZOLE SO40 MG PO; TORSEMIDE10 MG PO; TORSEMIDE20 MG PO; TYLENOL WITH C1 EACH PO; XARELTO20 MG PO; vraylar PO
[2019-01-12] MEDS ORDERED: SODIUM CHLORIDE 0.9% 1000ML 1,000 ML IV STA (18:53)
[2019-01-12] MEDS ORDERED: SODIUM CHLORIDE 0.9% 1000ML 1,000 ML ONE (18:57)
[2019-01-12] MEDS ORDERED: INSULIN REGULAR, HUMAN 100 UNIT/1 ML 3ML VIAL IV NR (19:00)
[2019-01-12 19:12] LABS: BASOPHILS % 0.4 % (0.0-1.0); EOSINOPHILS % 0.4 % (0.0-6.0); HEMATOCRIT 45.4 % (38.2-49.6); HEMOGLOBIN 14.6 g/dL (14.0-18.0); LYMPHOCYTES # (AUTO) 0.6 (1.0-3.2); LYMPHOCYTES % 6.9 % (18.0-39.1); MEAN CORPUSCULAR HEMOGLOBIN 27.4 pg (28-32); MEAN CORPUSCULAR HGB CONC 32.2 g/dL (31-35); MEAN CORPUSCULAR VOLUME 85.2 fL (81-99); MONOCYTES # (AUTO) 0.5 (0.2-0.8); MONOCYTES % 5.6 % (4.4-11.3); NEUTROPHILS % 86.2 % (38.7-80.0); PLATELET COUNT 205 x10e3/uL (140-360); RED BLOOD COUNT 5.33 x10e6/uL (4.3-5.7); RED CELL DISTRIBUTION WIDTH 14.6 % (11.7-14.4)
[2019-01-12 19:20] LABS: BILIRUBIN,URINE NEGATIVE (NEGATIVE); CLARITY,URINE CLEAR (CLEAR); COLOR,URINE YELLOW (YELLOW); KETONES,URINE NEGATIVE (NEGATIVE); LEUKOCYTE ESTERASE ,URINE NEGATIVE (NEGATIVE); NITRITE,URINE NEGATIVE (NEGATIVE); PROTEIN,URINE DIPSTICK NEGATIVE (NEGATIVE); URINE UROBILINOGEN 0.2 mg/dL (0.2 - 1)
[2019-01-12 19:22] LABS: INR 1.94; PROTHROMBIN TIME 22.8 seconds (11.9-14.5)
[2019-01-12 19:23] LABS: PARTIAL THROMBOPLASTIN TIME 38.2 seconds (23.8-35.5)
[2019-01-12 19:30] LABS: BACTERIA,URINE RARE /HPF; RBC,URINE 0-5 /HPF (0-5); WBC,URINE (MAN) 0-5 /HPF (0-5)
[2019-01-12 19:30] LABS: ALBUMIN 4.1 g/dL (3.5-5.0); ALBUMIN/GLOBULIN RATIO 1.1 (0.8-2.0); ANION GAP 18.3 mmol/L (8-16); CREATININE, SERUM 1.77 mg/dL (0.72-1.25); POTASSIUM 4.3 mmol/L (3.5-5.1)
[2019-01-12 19:31] LABS: EPITHELIAL CELLS,URINE FEW /LPF
[2019-01-12 19:36] LABS: CREATINE KINASE MB 2.1 ng/mL (0-5.0)
[2019-01-12 19:42] LABS: CALCIUM 10.2 mg/dL (8.4-10.2)
[2019-01-12] MEDS ORDERED: INSULIN REGULAR, HUMAN 100 UNIT/1 ML 3ML VIAL SQ ONE ×2 (20:00→22:30)
[2019-01-12] MEDS ORDERED: SODIUM CHLORIDE 0.9% 1000ML 1,000 ML IV SCH ×2 (20:00→22:30)
--- NOTE | 2019-01-12 21:44 | Diagnostic Imaging Report ---
EXAMINATION: CHEST SINGLE (PORTABLE) INDICATION: ^dizziness ^[id number] ^[id number] COMPARISON: 12/18/2018 FINDINGS: AP view TUBES and LINES: Stable single view left chest wall cardiac device LUNGS: Limited by body habitus and low lung volumes. Central vascular congestion. PLEURA: No significant pleural effusion or pneumothorax. HEART AND MEDIASTINUM: The cardiomediastinal silhouette is enlarged. BONES AND SOFT TISSUES: No acute osseous lesion. Soft tissues are unremarkable. UPPER ABDOMEN: No free air under the diaphragm. IMPRESSION: Limited as above. Enlarged cardiomediastinal silhouette and central vascular congestion, accentuated by low lung volumes. Signed by: Dr. Adilson Philippe MD on 01/12/2019 9:40 PM
[2019-01-13 00:19] LABS: ANION GAP 15.6 mmol/L (8-16); CALCIUM 8.3 mg/dL (8.4-10.2); CREATININE, SERUM 1.34 mg/dL (0.72-1.25); POTASSIUM 3.6 mmol/L (3.5-5.1)
== END 2019-01-13 01:39 ==
LOC: ER 18:21
DX: E10.65 Type 1 diabetes mellitus with hyperglycemia (principal); I10 Essential (primary) hypertension; I48.91 Unspecified atrial fibrillation; E03.9 Hypothyroidism, unspecified; F41.9 Anxiety disorder, unspecified; K21.9 Gastro-esophageal reflux disease without esophagitis; F20.9 Schizophrenia, unspecified
CPT/HCPCS: 36415; 71045; 80048; 80053; 81001; 82550; 82553; 83735; 84484; 85025; 85610; 85730; 93005; 99284; J7030

== ENCOUNTER 2019-01-22 10:54 | Emergency (ER) | payer MEDICARE, OTHER ==
[~2019-01-22] VITALS: Ht 170.2 cm; Wt 110.2 kg
--- OUTSIDE RECORDS SUMMARY | 2019-01-22 11:02 | XMS REPORT | Summary of Care ---
Author Author [facility] Organization [facility] Address Unknown Phone Unavailable Care Team Providers Care [employer] Pilot Name Role Phone [employer], Cued Supplies 34 Gus Barrientos MD PCP Reason for Visit * Reason Comments Follow-up Visit - BS this morning 248 Diabetes Encounter Details Care Team Description Date Type Department Antonio Alarcon MD [address] [place] [address] Follow-up Visit - Diabetes (BS this morning 248) 01/10/2019 Office Visit [facility] Endocrinology [address]; [address] [place] [address] Allergies Comments Active Allergy Reactions Severity Noted Date Cannot take potassium liquid. Can only take potassium pills with milk. Potassium Chloride Nausea And High 03/10/2013 Vomiting Potassium-Containing Nausea And Low 03/19/2013 Compounds Vomiting Sodium Chloride Nausea Only 03/19/2013 documented as of this encounter (statuses as of 01/14/2019) Medications End Date Status Medication Sig Dispensed [...] clonazepam (KLONOPIN) 1 1 mg two 0 12/18/201 MG tabletIndications: times daily. 6 Umbilical hernia without obstruction and without gangrene Active digoxin (LANOXIN) 125 MCG Take 125 mcg 0 tablet by mouth daily. Active Lancets Misc. (UNISTIK 3 1 Each four 200 Each 11 COMFORT) MISCIndications: times daily. 8 Type 2 diabetes mellitus with insulin therapy [facility] Active docusate sodium (COLACE) Take 1 Cap [...] complication, with long-term current use of insulin [facility]), Type 2 diabetes mellitus with insulin therapy [facility]) Active ONETOUCH DELICA LANCETS 1 Each four 200 Each 11 33G MISCIndications: Type times daily. 8 2 diabetes mellitus with insulin therapy ([facility]) Active acetaminophen (TYLENOL) Take 650 mg 0 650 MG CR tablet by mouth. Active ONETOUCH DELICA LANCETS Check glucose 400 Each 10 33G MISCIndications: Type 4x daily; Dx 9 2 diabetes mellitus with E11.65 insulin therapy [facility]) Active ONETOUCH TEST FOUR 300 Strip 0 VERIOIndications: Type 2 TIMES DAILY 9 diabetes mellitus with insulin therapy ([facility]) Active Blood Glucose Monitoring Check blood 1 Kit 0 Suppl (ONETOUCH VERIO) sugars 4 9 w/Device KITIndications: times daily; Type 2 diabetes mellitus Dx E11.65 with insulin therapy [facility]) Active Insulin Detemir (LEVEMIR ADMINISTER 32 9 mL 3 FLEXTOUCH) 100 UNIT/ML UNITS UNDER 9 SOPNIndications: THE SKIN Uncontrolled type 2 EVERY NIGHT diabetes mellitus with AT BEDTIME complication, with long-term current use of insulin [facility] Type 2 diabetes mellitus with insulin therapy ([facility]) Active Insulin Glulisine (APIDRA INJECT 12 TO 48 mL 3 SOLOSTAR) 100 UNIT/ML 20 UNTIS 9 SOPNIndications: UNDER THE Uncontrolled type 2 SKIN THREE diabetes mellitus with TIMES DAILY complication, with BEFORE A MEAL long-term current use of DIRECTED insulin ([facility]) Active torsemide (DEMADEX) 20 MG Take 60mg in 90 Tab 3 tablet the morning 9 and 20mg in the evening 02/01/2019 Active Vitamin D, Take 1 tablet 12 Cap 0 Ergocalciferol, 56114 by mouth 9 units CAPSIndications: every 7 days CKD (chronic kidney for 12 doses. disease), stage III ([facility]ode), Vitamin D deficiency Active Continuous Blood Gluc 1 Kit Use as 1 Device 0 Forensic Manager (FREESTYLE LUZ Directed. 9 14 DAY READER) IVAN Check glucose 4x daily; Dx E 11.65 Active Continuous Blood Gluc 3 Each every 3 Each 5 Sensor (FREESTYLE LUZ 14 days. 9 14 DAY SENSOR) MISC Check glucose 4x daily; Dx E11.65 Active metformin (GLUCOPHAGE) TAKE 1 TABLET 180 Tab 0 500 MG tabletIndications: BY MOUTH 9 Uncontrolled type 2 TWICE DAILY diabetes mellitus with complication, with long-term current use of insulin ([facility]), Type 2 diabetes mellitus with insulin therapy ([facility]) documented as of this encounter (statuses as of 01/14/2019) Active Problems Problem Noted Date LUZ (obstructive [...] sleepiness. Type 2 diabetes mellitus without retinopathy ([facility]) 11/18/2014 Type II or unspecified type diabetes mellitus with peripheral circulatory 04/23/2013 disorders, not stated as uncontrolled(250.70) Obesity 09/19/2012 Last Assessment & Plan: Counseled on wt loss with healthy diet and excercise CHF (congestive heart failure) ([facility]ode) 12/31/2010 LUZ (obstructive sleep apnea) on auto [...] single episode, severe with psychotic features 03/14/2001 ([facility] Sch[facility]oaffective disorder [facility] 03/[facility] Overview: Psychiatrist follows, [facility] HYPERLIPIDEMIA, MIXED 12/29/1998 RHINITIS, ALLERGIC, DUE TO POLLEN 12/29/1998 documented as of this encounter (statuses as of 01/14/2019) Resolved Problems Problem Noted Date Resolved Date Polyuria 05/20/2003 11/18/2010 documented as of this encounter (statuses as of 01/14/2019) Immunizations Name Administration Dates Next Due Influenza [...] Signs Reading Time Taken Comments Vital Sign 114/78 01/10/2019 2:52 PM CDT Blood Pressure 104 01/10/2019 2:52 PM CDT Pulse - - Temperature 16 01/10/2019 2:52 PM CDT Respiratory Rate - - Oxygen Saturation - - Inhaled Oxygen Concentration 103.9 kg (229 lb) 01/10/2019 2:52 PM CDT Weight 167.6 cm (5' 6") 01/10/2019 2:52 PM CDT Height 36.96 01/10/2019 2:52 PM CDT Body Mass Index documented in this encounter Patient Instructions * Patient Instructions* Sammy Pratt MD - 01/10/2019 3:00 PM CDT Please bring blood glucose to your next office visit Continue metformin 500 mg twice daily Increase to levemir 25 units twice daily Continue humalog as per sliding scale three times a day with each meal Increase Levemir to 25 units twice daily (inject twice daily in the morning and evening) Please bring blood glucose to your next office visit Check blood glucoses 4 times a day: breakfast, lunch, dinner, and bedtime. documented in this encounter Progress Notes * Antonio Alarcon MD - 01/10/2019 3:00 PM CDT Teaching Physician Attestation I was present in the room with the resident during the history and exam and I ag ree with the assessment and plan as document by the resident . * Sammy Pratt MD - 01/10/2019 3:00 PM CDT [facility] 01/10/2019 Chief Complaint: Follow-up Visit - Diabetes (BS this morning 248) History of Present Illness Momo Larson is a 53 y.o. male with non ischemic HFrEF and afib s/p I CD, distant history of cocaine use, LUZ who presents for Follow-up Visit - Ashanti zaldivar (BS this morning 248) Diabetes type 2 was diagnosed in 2009. The last office visit was 09/21/2018. Hospitalized on 12/20-12/25 for CHF exacerbation. Current diabetes regimen Anti hyperglycemics: metformin 500 mg bid levemir 20 units bid humalog scale was stopped at last office visit but he has been using some scale; on avg taking - Aspirin: no; on Xarelto Statin: Lipitor 40 mg qhs ACEi/ARB: unsure?; torsemide, coreg Neuropathic pain: none Compliance is 100%, patient lives as a custodial. Diet- sometimes snacks between meals. Glucose control Patient checks BG 4 times a day. However Yuly from custodial noting that BG no t being checked at home. Hypoglycemic episodes: none BG is on avg ~200s. Weight Body mass index is 36.96 kg/m. Wt Readings from Last 10 Encounters: 01/10/19 229 lb (103.9 kg) 11/15/18 233 lb (105.7 kg) 11/15/18 232 lb (105.2 kg) 11/12/18 232 lb (105.2 kg) 09/21/18 229 lb 4 oz (104 kg) 08/23/18 227 lb (103 kg) 07/09/18 221 lb (100.2 kg) 06/13/18 225 lb 6 oz (102.2 kg) 03/15/18 226 lb (102.5 kg) 03/12/18 232 lb (105.2 kg) Diabetes maintenance Neuropathy: none Retinopathy due for visit; unknown retinopathy status Nephropathy: CKD, follows up with nephrology Macrovascular: no CVA, PAD, CAD Review of Systems Constitutional: negative for fevers, chills, sweats Eyes: negative for visual disturbance, redness or blurring. Ears, nose, mouth, throat: negative for ear drainage, earaches, hearing loss. Respiratory: negative for cough, sputum, hemoptysis. Cardiovascular: Negative for chest pain, dyspnea, or palpitations. Gastrointestinal: negative for nausea or vomiting Genitourinary: negative for dysuria. Skin: negative for rash, skin lesion(s). Endocrine: please see HPI Allergic/Immunologic: negative for urticaria, and anaphylaxis. Past Medical Histories Current Outpatient Medications Medication Sig Dispense Refill [...] MG tablet 1 mg two times daily. Continuous Blood Gluc Forensic Manager (FREESTYLE LUZ 14 DAY READER) IVAN 1 Kit Us e as Directed. Check glucose 4x daily; Dx E 11.65 1 Device 0 Continuous Blood Gluc Sensor (FREESTYLE LUZ 14 DAY SENSOR) MISC 3 Each chalo ry 14 days. Check glucose 4x daily; Dx E11.65 3 Each 5 digoxin (LANOXIN) 125 MCG tablet Take 125 [...] BY MOUTH TWICE DAILY 180 Tab 0 ONETOUCH DELICA LANCETS 33G MISC Check glucose [...] SUBL torsemide (DEMADEX) 20 MG tablet Take 60mg in the morning and 20mg in the ev ening 90 Tab 3 Vitamin D, Ergocalciferol, 42349 units CAPS Take 1 tablet by mouth every 7 d ays for 12 doses. 12 Cap 0 zolpidem (AMBIEN) 10 MG tablet Take 15 mg by mouth nightly as needed for Sle ep. No current facility-administered medications for this visit. Allergies Allergen Reactions Potassium Chloride Nausea And Vomiting Cannot take potassium liquid. Can only take potassium pills with milk. Sodium Chloride Nausea Only Potassium-Containing Compounds Nausea And Vomiting Past Medical History: Diagnosis Date Blunt head trauma 04/02/2002 Cocaine dependence in remission ([facility]ode) none since 2007 Elevated LFT's 10/2010 ALT 66 Heart failure 10/2010 Dx at [facility] Hyperlipidemia, mixed 12/29/1998 Hypertension LUZ (obstructive sleep [...] History: Procedure Laterality Date HX KNEE SURGERY Family History Problem Relation Name Age of Onset Diabetes Father Cancer Father liver diagnosis, 9 month after Diagnosis, 7 years ago, High Blood Pressure Mother Elevated Lipids Mother Heart Disease Maternal Grandfather Social History Tobacco Use Smoking status: Never Smoker Smokeless tobacco: Never Used Tobacco comment: Trying to quit 10/2010. Substance Use Topics Alcohol use: No Alcohol/week: 0.0 oz Comment: Alcoholic Drinks/day: no Drug use: Not Currently Comment: Drug use: crack 3.5 years ago, on/off 15 years, once a month Physical Exam Vitals: 01/10/19 1452 BP: 114/78 BP Location: right arm Patient Position: Sitting Cuff Size: regular Pulse: 104 Resp: 16 Weight: 229 lb (103.9 kg) Height: 5' 6" (1.676 m) Body mass index is 36.96 kg/m. General: alert, well appearing, and in no distress. Eyes: EOMI, no ptosis Neck: no acanthosis nigricans, no thyromegaly or LAD Lungs: Symmetric breathing comfortable on room air Heart: normal rate, regular rhythmn Abdomen: Abdomen soft and non-tender Extremities: no pitting edema Diabetic Foot Exam - 08/2018 Laboratory Studies A1c Lab Results Component Value Date HGBA1C 9.5 (H) 01/07/2019 HGBA1C 8.7 (H) 09/19/2018 HGBA1C 9.1 (H) 06/11/2018 HGBA1C 7.5 (H) 03/05/2018 HGBA1C 6.7 (A) 07/18/2017 Lipid: LDL CHOLESTEROL CALCULATED Date Value 01/07/2019 41 MG/DL 06/11/2018 73 MG/DL 12/18/2017 71 MG/DL 10/15/2015 61 MG/DL 11/01/2014 72 mg/dL (calc) Microalbumin: Lab Results Component Value Date MICROALBUR 1.3 06/11/2018 MICROALBUR 1.0 12/18/2017 MICROALBUR <0.2 04/17/2017 MICROALBUR 2.4 (H) 10/15/2015 MICROALBUR 0.5 11/01/2014 Lab Results Component Value Date CREATININE 1.55 (H) 11/15/2018 CREATININE TEST NOT PERFORMED 11/12/2018 CREATININE 1.56 (H) 09/19/2018 CREATININE 1.69 (H) 07/09/2018 CREATININE 1.61 (H) 06/11/2018 Impression & Plan Momo Larson is a 53 y.o. male who presents for Follow-up Visit - Rebecca arizmendi (BS this morning 248) Type 2 diabetes, insulin-dependent, poorly controlled Plan: -Continue metformin 500 mg bid -Increase to levemir 25 units twice daily -Continue humalog - Please bring blood glucose to your next office visit -needs eye examination Education -Counseled checking blood glucoses. -Counseled signs/symptoms of hypoglycemia. Hypoglycemia precautions and managem ent discussed. -Counseled to eat all meals on time to avoid hypoglycemia -Counseled patient to wear socks/shoes that are loose and examine feet daily Follow up in 3 months with pre-clinic labs. Discussed case with faculty, Dr. Alarcon. Sammy Pratt M.D. [facility] Endocrine Fellow, PGY-5 documented in this encounter Plan of Treatment Care Team Description Date Type Specialty Antonio Alarcon MD [address] [place] [address] [phone] 05/31/2019 Office Visit Endocrinology Order Schedule Name Type Priority Associated Diagnoses Expected: 05/03/2019, Expires: 01/11/2024 HEMOGLOBIN A1C Lab Routine Type 2 diabetes mellitus with insulin therapy ([facility]) Expected: 05/03/2019, Expires: 01/11/2024 LIPID PANEL Lab Routine Type 2 diabetes mellitus with insulin therapy ([facility]) Health Maintenance Due Date Last Done Comments COLON CANCER SCREENIN1964 COLONOSCOPY MEDICARE AWV 1964 TETANUS SHOT (ADULT) 07/30/1979 ANNUAL DIABETIC 1982 RETINOPATHY SCREENING BMI FOLLOW UP PLAN 1982 FLU VACCINE > 6 MONTHS 10/25/2018 04/09/2002, 03/14/2001 A1C TESTING EVERY 6 07/09/2019 01/07/2019, 09/19/2018, 06/11/2018, MONTHS Additional history exists ANNUAL DIABETIC FOOT EXAM 09/22/2019 09/21/2018, 06/13/2018, 08/30/2016, Additional history exists HEPATITIS C SCREENING Completed 07/09/2018 HIV SCREENING Completed 07/09/2018 documented as of this encounter Results Not on filedocumented in this encounter Visit Diagnoses Diagnosis Type 2 diabetes mellitus with insulin therapy ([facility]ode) - Primary Type II or unspecified type diabetes mellitus without mention of complication, not stated as uncontrolled Uncontrolled type 2 diabetes mellitus with complication, with long-term current use of insulin ([facility]ode) documented in this encounter Insurance Type Payer Benefit Subscriber ID Effective Phone Address Plan / Dates Group Medicare [employer] MMP - STAR xxxxxxxxx 2017-P [address] [address] [place], [place]AN [phone] documented as of this encounter Advance Directives Patient Handicapper [employer] Explanation Type Date Recorded Advance Directives and Living Will Power of Top Tile Decorator
[2019-01-22 12:03] LABS: INFLUENZAE A&B ANTIGEN (RAPID) NEGATIVE (NEGATIVE)
[2019-01-22 12:04] LABS: STREPTOCOCCUS GRP A ANTIGEN NEGATIVE (NEGATIVE)
--- NOTE | 2019-01-22 12:18 | Diagnostic Imaging Report ---
EXAMINATION: CHEST 2 VIEWS INDICATION: Cough COMPARISON: Chest radiograph 01/12/2019 FINDINGS: LINES/TUBES:Left chest AICD unchanged. LUNGS:The lungs are well-inflated. No focal consolidation or pulmonary edema. PLEURA:No pleural effusion or pneumothorax. MEDIASTINUM:The cardiomediastinal silhouette appears unchanged in size and shape. BONES/SOFT TISSUES:No acute osseous injury. ABDOMEN:No free air under the diaphragm. IMPRESSION: No focal pneumonia or pulmonary edema. Signed by: Yayo Morejon MD on 01/22/2019 12:15 PM
--- NOTE | 2019-01-22 15:12 | NUR ---
pt's ride is here to pick him up in the front lobby.
== END 2019-01-22 14:00 | disposition home or self-care (01) ==
LOC: ER 10:54
DX: R05 Cough (principal); J20.9 Acute bronchitis, unspecified; I10 Essential (primary) hypertension; E11.9 Type 2 diabetes mellitus without complications; F20.9 Schizophrenia, unspecified
CPT/HCPCS: 71046; 83518; 87070; 87400; 99283

== ENCOUNTER 2019-05-05 18:08 | Emergency (ER) | payer MEDICARE, OTHER ==
[~2019-05-05] VITALS: Ht 170.2 cm; Wt 110.7 kg
[~2019-05-05 18:08] MED LIST changes: +ASPIR 8181 MG PO; +BUSPIRONE HCL5 MG PO; +DOCUSATE SODIU100 MG PO; +INVEGA3 MG PO; +METOPROLOL SUCC50 MG PO; +POTASSIUM CHLO20 ME1 PO; +ZOLPIDEM TARTRA10 MG PO
--- NOTE | 2019-05-05 18:51 | NUR ---
REPORT GIVEN TO WAYLON MAGANA
[2019-05-05] MEDS ORDERED: DIGOXIN INJ 0.25 MG/ML 2 ML AMP IV PRN (19:00)
[2019-05-05] MEDS ORDERED: DILTIAZEM HCL 5 MG/ML 5 ML VIAL IV NR (19:01)
[2019-05-05 19:35] LABS: BASOPHILS % 0.2 % (0.0-1.0); EOSINOPHILS # (AUTO) 0.1 (0.0-0.4); EOSINOPHILS % 0.5 % (0.0-6.0); HEMATOCRIT 43.4 % (38.2-49.6); HEMOGLOBIN 14.6 g/dL (14.0-18.0); LYMPHOCYTES # (AUTO) 0.8 (1.0-3.2); LYMPHOCYTES % 7.6 % (18.0-39.1); MEAN CORPUSCULAR HEMOGLOBIN 27.8 pg (28-32); MEAN CORPUSCULAR HGB CONC 33.6 g/dL (31-35); MEAN CORPUSCULAR VOLUME 82.7 fL (81-99); MONOCYTES # (AUTO) 0.7 (0.2-0.8); MONOCYTES % 7.4 % (4.4-11.3); NEUTROPHILS # (AUTO) 8.5 (2.1-6.9); PLATELET COUNT 226 x10e3/uL (140-360); RED BLOOD COUNT 5.25 x10e6/uL (4.3-5.7); RED CELL DISTRIBUTION WIDTH 15.8 % (11.7-14.4)
[2019-05-05 19:44] LABS: INR 2.26; PROTHROMBIN TIME 26.6 seconds (11.9-14.5)
[2019-05-05 19:54] LABS: ALBUMIN/GLOBULIN RATIO 1.4 (0.8-2.0); ANION GAP 16.9 mmol/L (8-16); CALCIUM 8.6 mg/dL (8.4-10.2); CREATININE, SERUM 1.41 mg/dL (0.72-1.25); POTASSIUM 3.9 mmol/L (3.5-5.1)
[2019-05-05 20:00] LABS: CREATINE KINASE MB 1.3 ng/mL (0-5.0)
--- NOTE | 2019-05-05 20:17 | Diagnostic Imaging Report ---
EXAMINATION: CHEST SINGLE (PORTABLE) INDICATION: Severe chest pain. COMPARISON: Chest x-ray 04/16/2019. FINDINGS: TUBES and LINES: Left chest wall cardiac device with lead in the right ventricle. LUNGS: Normal lung volumes. Left basilar subsegmental atelectasis versus scarring. Mild pulmonary venous congestion and interstitial edema. PLEURA: No pleural effusion or pneumothorax. HEART AND MEDIASTINUM: Cardiac size is mildly enlarged. BONES AND SOFT TISSUES: No acute osseous lesion. Soft tissues are unremarkable. UPPER ABDOMEN: No free air under the diaphragm. IMPRESSION: Mild pulmonary venous congestion and interstitial edema. Signed by: Dr. Hortensia Aguila M.D. on 05/05/2019 8:15 PM
[2019-05-05 21:30] VITALS: BP 140/100
== END 2019-05-05 22:00 | disposition home or self-care (01) ==
LOC: ER 18:08
DX: R07.9 Chest pain, unspecified (principal); I10 Essential (primary) hypertension; E11.9 Type 2 diabetes mellitus without complications; F41.9 Anxiety disorder, unspecified; K21.9 Gastro-esophageal reflux disease without esophagitis; I48.91 Unspecified atrial fibrillation
CPT/HCPCS: 36415; 71045; 80053; 82550; 82553; 83880; 84484; 85025; 85610; 85730; 93005; 99284; J1160